=== PATIENT | female | born 1970 | race Caucasian/White ===

== ENCOUNTER 2017-08-01 13:22 | Emergency (ER) | payer MEDICARE, SELFPAY ==
[2017-08-01 13:23] VITALS: BP 151/56; PULSE 89; RESP 14; TEMP 36.7; O2SAT 98; BMI 46.3
--- NOTE | 2017-08-01 14:06 | VDUE_ITS ---
Reason For Study: swelling Left Proximal Left jugular vein is spontaneous, widely patent, phasic, with no intraluminal echogenicity noted. Left subclavian vein is spontaneous, widely patent, phasic, with no intraluminal echogenicity noted. Left Arm Left axillary vein is spontaneous, patent, phasic, competent, compressible and demonstrates augmentation. Left brachial vein is compressible. Left cephalic vein is compressible. Left basilic vein is compressible. Left Lower Arm Left radial vein is compressible. Left ulnar vein is compressible. Prelim to Dr. Burrell. < Interpretation Summary No evidence for acute deep venous thrombosis[left] upper extremity with patent and compressible cephalic and basilic veins. Ordering Physician: Senait Laurent Performed By: John Hannon RVT
--- NOTE | 2017-08-01 14:07 | CT_ITS ---
STUDY: CT SCAN OF THE FOREARM LEFT REASON FOR EXAM: Female, 47 years old. Left arm pain overlying the mid forearm. RADIATION DOSAGE (If Supplied By Facility): CTDIvol = ( 24.58 ) mGy, DLP = ( 566.75 ) mGycm. Individualized dose optimization techniques were used for this CT.? TECHNIQUE: Multiple axial tomographic images were obtained following intravenous contrast administration. Sagittal and coronal reconstruction was obtained as well. COMPARISON: None. FINDINGS: The radius and ulna are unremarkable. No soft tissue mass is seen. The vascularity is unremarkable. CT/Extremity Upper WITH Contrast IMPRESSION: Unremarkable examination. Electronically Signed: Wayne Cooper MD at 15:05 EST Tel [phone], Service support ,
--- NOTE | 2017-08-01 14:09 | NURSING ---
CALLED VASCULAR LAB. TOSHIA WILL BE RIGHT DOWN
[2017-08-01] MEDS: HYDROcodone Bitartrate/Apap 5/325 Tablet PO (15:28)
[2017-08-01 16:09] LABS: Anion Gap 7 (5-15); BUN 16 mg/dL (7-18); BUN/Creat Ratio 20.3 RATIO (10-20); Calcium,Total 8.1 mg/dL (8.5-10.1); Chloride 107 mmol/L (98-107); Creatinine, Serum 0.79 mg/dL (0.55-1.02); EST Glomerular Filtration Rate 83 mL/min (>60); Est Glom Filt Rate - Afr Amer 100 mL/min (>60); Estimated Creatinine Clearance 63.23 ml/min; Glucose 111 mg/dL (74-106); Potassium 4.8 mmol/L (3.5-5.1); Sodium Level 139 mmol/L (136-145)
--- NOTE | 2017-08-01 16:11 | ED.DCSUM_ITS ---
- ER Visit Summary Date of Service: 08/01/17 Chief Complaint: [Left forearm pain] History of Present Illness: The patient is a 47 F presents to the emergency department with complaint of pain in her left forearm that she has had for about a month. [Patient denies any injury. Patient was seen at the urgent care today and there was concern for DVT so sent to the emergency department. Patient denies any chest pain or shortness of breath. Patient denies recent travel or surgery.] Physical Examination: [HEENT-PERRLA, EOMI. Cranial nerves II through XII grossly intact. TMs clear. Mucous membranes moist. No adenopathy. Cardiovascular-regular rate and rhythm without murmur or ectopy Lungs-clear to auscultation, chest wall stable without crepitus or subcu emphysema Abdomen-normoactive bowel sounds, soft, nontender, no rebound or rigidity, no peritoneal signs. Extremities-intact ?4, normal range of motion, normal pulses, atraumatic]. Left forearm-there is a small [id number] mass in the proximal forearm that is freely movable within the soft tissues and is slightly tender to palpation. There is no significant edema noted of the arm. There is no erythema or warmth. There is no cellulitis. She is neurovascular intact distally. Test Results: [Venous duplex of the upper extremity revealed no DVT. I did do a CT scan of the forearm which showed no masses or anything significant.] Emergency Department Course and Treatment: [She was given 1 [place] for pain] Treatment Plan: [Discharged to home in stable condition. Patient will be given a prescription for [place] for pain and a referral to orthopedics on-call.] Disposition: [Discharged to home in stable condition] Impression: Left forearm pain-etiology uncertain [] This note was generated with [employer] dictation software. It may contain incorrect words, spelling, and punctuation that were not noted in review of the chart prior to signing ED Disposition - Plan for ED Patient: Chief Complaint: Upper Extremity Injury Referrals: Beatrice Piedra MD [Primary Care Provider] -
--- NOTE | 2017-08-01 16:12 | ED.DEP ---
ED Disposition - Plan for ED Patient: Chief Complaint: Upper Extremity Injury Prescriptions: Hydrocodone Bitart/Apap 5-325 [[place] 5/325] 1 - 2 tab PO Q4H PRN PRN 5 Days #20 tab PRN Reason: Pain Referrals: Beatrice Piedra MD [Primary Care Provider] - Additional Instructions: It is unclear the cause of your pain
== END 2017-08-01 16:22 | disposition home or self-care (01) ==
PROVIDERS: Emergency Provider Emergency Medicine; Family Provider Internal Medicine; PCP Internal Medicine
DX: M79.632 Pain in left forearm (principal); E11.9 Type 2 diabetes mellitus without complications; E78.00 Pure hypercholesterolemia, unspecified; Z72.0 Tobacco use; Z79.4 Long term (current) use of insulin; Z79.899 Other long term (current) drug therapy
CPT/HCPCS: 73201; 80048; 93971; 99283; Q9967; A4216

== ENCOUNTER 2017-10-11 20:51 | Emergency (ER) | payer MEDICARE, SELFPAY ==
[2017-10-11 20:53] VITALS: BP 133/73; PULSE 80; RESP 16; TEMP 36.6; O2SAT 95; BMI 46.4
--- NOTE | 2017-10-11 20:55 | RAD_ITS ---
STUDY: X-RAY - RIGHT HAND REASON FOR EXAM: Female, 47 years old. Swelling, injury TECHNIQUE: 3 view(s) of the hand. COMPARISON: X-ray 12/06/2014 FINDINGS: The hand is held in flexion. No radiopaque foreign body. Normal radiocarpal articulation. Normal distal radioulnar joint. Normal visualized carpal bones. Normal carpal articulations Normal carpometacarpal articulation of the thumb. Normal second through fifth carpometacarpal joints. Normal metacarpi. Normal metacarpophalangeal joint of the thumb. Normal interphalangeal joint of the thumb. Normal proximal and distal phalanges of the thumb. Normal metacarpophalangeal joints of the second through fifth fingers. Normal proximal and distal interphalangeal joints of the second through fifth fingers. Normal phalanges of the second through fifth fingers. The soft tissue structures are unremarkable. RAD/Hand Min 3 Views IMPRESSION: Intact osseous structures No radiopaque foreign body Fingers held in flexion Electronically Signed: Zoltan Diamond MD at 21:14 EDT Tel , Service support ,
--- NOTE | 2017-10-11 21:58 | ED.VISSUMM ---
- ER Visit Summary Date of Service: 10/11/17 Chief Complaint: Right hand injury History of Present Illness: The patient is a 47 F who states that she punched a glass DVD case 10 times tonight. She has pain over the dorsum of her right hand and swelling. Physical Examination: Afebrile vital signs are stable There is hematoma over the long ring and little MCP joints. Limited range of motion due to pain. Neurovascular intact distally. Test Results: X-rays were negative for fracture Emergency Department Course and Treatment: Patient used ice was given ibuprofen here. Patient will continue this treatment at home. Impression: 1. Right hand contusion This note was generated with [employer] dictation software. It may contain incorrect words, spelling, and punctuation that were not noted in review of the chart prior to signing ED Disposition - Plan for ED Patient: Disposition: Home or Assisted Living Chief Complaint: Upper Extremity Injury Instructions: ED Contusion Hand Referrals: Beatrice Piedra MD [Primary Care Provider] - As Needed
--- NOTE | 2017-10-11 22:12 | ED.RN ---
PT REFUSES MOTRIN. DISCHARGE INSTRUCTIONS GIVEN TO AND REVIEWED WITH PATIENT, PATIENT DENIES QUESTIONS OR CONCERNS AND VOICES UNDERSTANDING OF DISCHARGE INSTRUCTIONS. PT AMBULATES OUT OF ROOM WITHOUT DIFFICULTY.
== END 2017-10-11 22:14 | disposition home or self-care (01) ==
PROVIDERS: Emergency Provider Emergency Medicine; Family Provider Internal Medicine; PCP Internal Medicine
DX: S60.221A Contusion of right hand, initial encounter (principal); Z72.0 Tobacco use; W22.8XXA Striking against or struck by other objects, initial encounter; Y93.89 Activity, other specified; Y92.89 Other specified places as the place of occurrence of the external cause; Y99.8 Other external cause status; E66.9 Obesity, unspecified
CPT/HCPCS: 73130; 99282

== ENCOUNTER 2018-03-23 10:46 | Observation (INO) | payer MEDICARE, SELFPAY ==
[2018-03-23] VITALS (13 sets, daily range): BP systolic 97–127; BP diastolic 54–75; PULSE 79–92; RESP 14–20; TEMP 36.6–37.2; O2SAT 92–99; BMI 48.5; BMI 46.4; BMI 46.6
--- NOTE | 2018-03-23 10:49 | EKG12_ITS ---
Test Reason : CP Blood Pressure : / mmHG Vent. Rate : 089 BPM Atrial Rate : 089 BPM P-R Int : 124 ms QRS Dur : 080 ms QT Int : 370 ms P-R-T Axes : 027 023 013 degrees QTc Int : 450 ms Normal sinus rhythm Normal ECG Confirmed by RUTHIE JORDAN, BRODY ([id number]), movie editor ANGELO BARAHONA ([id number]) on 03/26/2018 2:43:45 PM Referred By: Ke Maldonado Confirmed By:BRODY HENDRICKS MD
--- NOTE | 2018-03-23 10:54 | RAD_ITS ---
STUDY: X-RAY CHEST REASON FOR EXAM: Female, 47 years old. Chest pain TECHNIQUE: Single AP portable view of the chest. COMPARISON: None. FINDINGS: The lungs are underexpanded. Subsegmental atelectases are noted in the right and left lung bases. There is no demonstrated pleural abnormality. Normal size heart. Normal mediastinum and yecenia. Normal visualized pulmonary arteries. Normal visualized aortic arch and descending thoracic aorta. Normal visualized thoracic spine. There is degenerative osteoarthritis of the bilateral shoulders. There is no demonstrated abnormality of the visualized soft tissue structures of the upper abdomen. RAD/Chest 1 View (Portable) IMPRESSION: Degenerative changes, as described above. No demonstrated acute cardiopulmonary process. Electronically Signed: Bailee Horton MD at 11:10 EDT Tel , Service support ,
--- NOTE | 2018-03-23 10:55 | ED.DCSUM_ITS ---
- ER Visit Summary Date of Service: 03/23/18 Chief Complaint: Chest pain History of Present Illness: The patient is a 47 F with history of diabetes, smoking, and family history of heart disease presents to the emergency department chest pain. States it woke her from sleep. She describes a sharp tightness in her mid chest that goes to her back in both arms. It is associated with nausea and shortness of breath. She states she has never had pain like this before. She denies any history of coronary vascular disease. She denies any exertional symptoms. The patient has never had a stress test. She denies any history of pulmonary embolus. She does not feel like anything has made it better or worse. She was given 1 sublingual nitro which did not change her pain. Physical Examination: Vital signs reviewed General: Well-nourished, well-developed Head: Normocephalic, atraumatic Eyes: Pupils equal and reactive, extraocular muscles intact Neck, supple, no lymphadenopathy Heart: Regular rate and rhythm Respiratory: No distress, clear bilaterally Abdomen: Soft, nontender, nondistended, no peritoneal signs Back: Nontender Extremities: Nontender, no edema, no cords Skin: Normal color no rash Neuro: Alert and oriented, no focal or lateralizing deficits Test Results: [] Emergency Department Course and Treatment: I did review the patient's prehospital EKG. She did have deep Q waves in lead III. There was no progression or acute ischemia otherwise. Her EKG on arrival was unremarkable. There is no acute ischemic change. The patient had no improvement with nitro. She was given morphine with some improvement. Screening labs including cardiac enzymes were unremarkable. She does have a mild leukocytosis. Her d-dimer was elevated so I did obtain a CTA of her chest. This demonstrates no pulmonary e mbolus, but there is a right middle lobe infiltrate. The patient was started on community-acquired pneumonia coverage. I am not sure if this is the cause of her pain or if there is underlying cardiac dysfunction. The patient will be admitted for further workup and evaluation of her chest pain. Treatment Plan: [] Disposition: Admission Impression: Chest pain 2. Community-acquired pneumonia This note was generated with [employer]ation software. It may contain incorrect words, spelling, and punctuation that were not noted in review of the chart prior to signing ED Disposition - Plan for ED Patient: Chief Complaint: Chest Pain
[2018-03-23 11:06] LABS: Absolute Neutrophil Count 8.8 X10^3/uL (2.0-7.7); Basophil# 0.03 X10^3/uL; Basophil% 0.2 % (0-1); Eosinophil# 0.25 X10^3/uL; Eosinophils% 1.9 % (0-5); Hematocrit 40.3 % (37-47); Lymphocyte % 23.2 % (19-41); Mean Corp Hgb Conc 32.3 g/gl (32-36); Mean Corpuscular Hgb 29.3 pg (27.0-32.0); Mean Corpuscular Volume 90.8 fL (81-99); Mean Platelet Vol. 9.9 fl (6.2-12.0); Neutrophil # 8.76 X10^3/uL (2.7-7.7); Neutrophil % 65.5 % (47-70); POSITIVE COUNT NO; POSITIVE DIFFERENTIAL NO; POSITIVE MORPHOLOGY NO; Platelet Count 184 K/mm3 (150-450); RBC Distribution Width CV 14.2 % (11.6-14.6); RBC Distribution Width SD 47.3 fl (35.1-43.9); Red Blood Count 4.44 M/mm3 (4.2-5.4); White Blood Count 13.4 K/mm3 (4.4-11.0)
[2018-03-23] MEDS: 0.9% Normal Saline 1,000 ML 1000 ML IV (11:07)
[2018-03-23] MEDS: Aspirin 81 MG TAB.CHEW 324 MG PO (11:07)
[2018-03-23] MEDS: Morphine 4 MG/ML Syringe IV ×3 (11:07→22:51)
[2018-03-23] MEDS: Ondansetron 4 MG/2 ML Vial IV (11:08)
[2018-03-23 11:13] LABS: International Normalized Ratio 1.2; Partial Thromboplast Time 28.9 Seconds (24.1-36.2); Prothrombin Time (Protime)PT. 15.2 SECONDS (11.7-14.9)
[2018-03-23 11:18] LABS: BUN 16 mg/dL (7-18); BUN/Creat Ratio 20.3 RATIO (10-20); Calcium,Total 7.8 mg/dL (8.5-10.1); Chloride 100 mmol/L (98-107); Creatinine, Serum 0.79 mg/dL (0.55-1.02); EST Glomerular Filtration Rate 83 mL/min (>60); Est Glom Filt Rate - Afr Amer 100 mL/min (>60); Estimated Creatinine Clearance 63.23 ml/min; Glucose 198 mg/dL (74-106); Lipase 83 U/L (73-393); Sodium Level 135 mmol/L (136-145)
[2018-03-23 11:19] LABS: Anion Gap 10 (5-15)
--- NOTE | 2018-03-23 11:23 | CT_ITS ---
STUDY: CTA CHEST REASON FOR EXAM: Female, 47 years old. Chest pain RADIATION DOSAGE (If Supplied By Facility): CTDIvol = ( 16.68 ) mGy, DLP = ( 567.59 ) mGycm TECHNIQUE: The examination was performed with the intravenous administration of 100 ml of Isovue 370 contrast material. Post-processing of the angiographic images was performed, with multiplanar reformation and 3D reconstruction. Individualized dose optimization techniques were used for this CT. COMPARISON: Chest x-ray. FINDINGS: There is limited enhancement of the main pulmonary artery and right and left pulmonary arteries. There is limited enhancement of the bilateral peripheral pulmonary arteries. There is no demonstrated pulmonary embolism. Normal thoracic aorta and visualized great vessels. There is no demonstrated aortic dissection. Normal heart and pericardium. Normal mediastinum. Normal hilar regions. Normal visualized trachea and bronchi. There is elevation of the right hemidiaphragm There is patchy airspace opacity in the perihilar right middle lobe , series 2 images 80/186 through 96/186 . Normal pleura. Normal chest wall structures. There are degenerative changes of thoracic spine. There is hepatomegaly with diffuse hepatic enlargement. CT/CTA Chest W/WO Contrast IMPRESSION: CTA chest examination, without a demonstrated pulmonary embolism or arterial dissection. Right middle lobe infiltrate. Electronically Signed: Harvey Guevara MD at 12:44 EDT , Service support ,
[2018-03-23 12:46] LABS: Bedside Glucose 139 mg/dL (70-110)
--- NOTE | 2018-03-23 12:59 | NURSING ---
PAGE NUNO CP
[2018-03-23] MEDS: Ceftriaxone 1 GM/50 ML BAG IV (13:10)
--- NOTE | 2018-03-23 13:32 | HP.PCM_ITS ---
Problem List (1) Chest pain, midsternal Status: Acute (2) Asthma Status: Chronic (3) Bipolar disorder Status: Chronic (4) Hypothyroidism Status: Chronic (5) Dyslipidemia Status: Chronic (6) Diabetes mellitus type 2 in obese Status: Chronic (7) Community acquired pneumonia of right middle lobe of lung Status: Acute History of Present Illness Date of Admission: 03/23/18 Chief Complaint: Chest pain today The patient is a 47 year old F with significant history of diabetes mellitus type 2, asthma, bipolar disorder with depression on multiple antipsychotic medications and Xanax came to ER with sudden onset of chest pain, midsternal without precipitating, aggravating or relieving factor. Chest pain radiates to back and both arms. She has mild associated shortness of breath but she has history of asthma with wheeze and chronic smoker. Denies fever, or diaphoresis or recent URI symptoms including cough, sore throat or postnasal drip. She had nonspecific chills. In ED, EKG shows normal sinus rhythm with no significant change from previous EKG of 2014. EMS EKG shows deep Q waves in lead III but I think is probably misplacement of lead. D-dimer was elevated and therefore CTPA was done which is negative of PE or aortic aneurysm/dissection but reported as right middle lobe infiltrate. [] Past Medical History Past Medical History (Chronic Problems): Chronic Problems Asthma (Chronic) Bipolar disorder (Chronic) Hypothyroidism (Chronic) Dyslipidemia (Chronic) Diabetes mellitus type 2 in obese (Chronic) Allergies latex Allergy (Verified 03/23/18 10:52) Hives Home Medications: Ambulatory Orders Medication Instructions Recorded Lamictal 200 mg PO DAILY 11/18/14 Seroquel 200 mg PO QHS 11/18/14 Metformin HCl 1,000 mg PO BID 01/06/15 ALPRAZolam [Xanax] 2 mg PO BID PRN PRN 01/31/15 Atorvastatin Calcium [Lipitor] 10 mg PO QHS 02/27/16 Furosemide [Lasix] 20 mg PO BID 02/27/16 Glimepiride [Amaryl] 2 mg PO BID 02/27/16 Insulin Glargine,Hum.rec.anlog 17 unit SQ DAILY 02/27/16 [Lantus] Levothyroxine [Synthroid] 25 mcg PO DAILY 02/27/16 Propranolol HCl [Inderal (Beta 20 mg PO BID 02/27/16 Geraldo)] Sertraline HCl [Zoloft] 100 mg PO BID 02/27/16 Zolpidem Tartrate [Ambien] 10 mg PO QHS 02/27/16 buPROPion SR [Wellbutrin Sr] 150 mg PO BID 02/27/16 Hydrocodone Bitart/Apap 5-325 1 - 2 tab PO Q4H PRN PRN 5 Days 08/01/17 [[place] 5/325] #20 tab Smoking Status: Current every day smoker - *Family History Maternal History Items: Heart Disease - Congestive heart failure and cardiomyopathy Sibling History Items: Heart Disease Review of Systems Constitutional: Reports: Chills, Weakness HEENT: Denies: Head Aches, Sinus Congestion, Sinus Drainage Cardiovascular: Reports: Chest Pain. Denies: Palpitations Respiratory: Reports: Shortness of breath upon exertion, Wheezing. Denies: Cough, Shortness of breath at rest, Sputum production Gastrointestinal: Denies: Abdominal Pain, Nausea, Vomiting Genitourinary: Denies: Dysuria Musculoskeletal: Reports: Joint Pain, Joint stiffness. Denies: Joint Tenderness Skin: Denies: Rash, Wounds Neurological: Denies: Numbness, Tingling, Focal weakness Psychiatric: Denies: Anxiety, Depression, Homicidal Ideations, Suicidal Ideations Hematologic/ Lymphatic: Denies: Easy Bruising, Easy Bleeding VTE Information - Inpt Only VTE Present on Admission: No VTE Mechan Device Prophylaxis: None VTE Pharm Prophylaxis ordered?: Yes Patient Problems: Active and Suspected Problems Chest pain, midsternal (Acute) Community acquired pneumonia of right middle lobe of lung (Acute) - Physical Exam General: Alert, Oriented x3, Cooperative HEENT: Atraumatic, PERRLA, EOMI, Normocephalic Neck: Supple, No JVD, Negative Carotid Bruits Lungs: Diminished - In bilateral lung bases, Wheezes - Mild expiratory wheezing present Cardiovascular: Regular rate, Normal S1, Normal S2, No murmurs Abdomen: Bowel Sounds Present, Soft, Non Tender, Non-Distended, No Hepato- splenomegaly Extremities: Capillary Refill Less than 3 Seconds, Edema Skin: No rashes, No breakdown Musculoskeletal: No Tenderness to Palpation of Joints or Extremities, Arthritic Changes Neurological: Cranial nerves II-XII grossly intact Psych/Mental Status: Normal Affect, Appropriate Vital Signs Temp Pulse Resp BP Pulse Ox 99.0 F 90 18 103/61 98 03/23/18 10:48 03/23/18 13:05 03/23/18 13:05 03/23/18 13:05 03/23/18 13:05 Oxygen Flow Rate (L/min) 2 Oxygen Delivery Method Nasal Cannula Weight: 248 lb 10.903 oz Body Mass Index (BMI) 48.5 Finger Stick Blood Glucose 219 Laboratory Tests Past 24 Hrs 03/23/18 03/23/18 03/23/18 10:54 10:54 10:54 WBC 13.4 H RBC 4.44 Hgb 13.0 Hct 40.3 MCV 90.8 MCH 29.3 MCHC 32.3 RDW 14.2 RDW Differential 47.3 H Plt Count 184 MPV 9.9 Immature Gran % (Auto) 0.200 Neut % (Auto) 65.5 Lymph % (Auto) 23.2 [place] % (Auto) 9.0 Eos % (Auto) 1.9 Baso % (Auto) 0.2 Absolute Neuts (auto) 8.8 H Absolute Lymphs (auto) 3.10 Total Counted Not Reportable PT 15.2 H INR 1.2 APTT 28.9 D-Dimer Quant (PE/DVT) 0.70 H* Sodium 135 L Potassium 4.0 Chloride 100 Carbon Dioxide 25.0 Anion Gap 10 BUN 16 Creatinine 0.79 Estim Creat Clear Calc 63.23 Est GFR (MDRD) Af Amer 100 Est GFR (MDRD) Non-Af 83 BUN/Creatinine Ratio 20.3 H Glucose 198 H Calcium 7.8 L Troponin I < 0.015 Lipase 83 POC Glucose 03/23/18 12:38 POC Glucose 139 H Assessment/Plan All Active Problems Chest pain, midsternal (Acute) Community acquired pneumonia of right middle lobe of lung (Acute) The patient is a 47 year old F with significant history of diabetes mellitus type 2, asthma, bipolar disorder with depression on multiple antipsychotic medications and Xanax came to ER with sudden onset of chest pain, midsternal without precipitating, aggravating or relieving factor. Chest pain radiates to back and both arms. She has mild associated shortness of breath but she has history of asthma with wheeze and chronic smoker. Denies fever, or diaphoresis or recent URI symptoms including cough, sore throat or postnasal drip. She had nonspecific chills. In ED, EKG shows normal sinus rhythm with no significant change from previous EKG of 2015. EMS EKG shows deep Q waves in lead III but I think is probably misplacement of lead. D-dimer was elevated and therefore CTPA was done which is negative of PE or aortic aneurysm/dissection but reported as right middle lobe infiltrate. [] 1. Atypical chest pain, rule out acute coronary syndrome: RICHAR score 1/7. Patient is being admitted in PCU for observation. Serial troponin enzymes. If negative, treadmill nuclear stress test tomorrow a.m. 2. CT chest finding of right middle lobe infiltrate/community-acquired pneumonia: Patient denies usual symptoms of pneumonia but has chills, mild chronic shortness of breath and wheezing. Empirically, started on IV Rocephin and Zithromax. Pneumonia workup with urinary antigens. If the patient is spikes fever, need blood cultures x2. 3. Chronic stable asthma and chronic a smoker: Not seem to be an exacerbation. On bronchodilator, incentive spirometry, nicotine patch. Patient has about 30 pack years of smoking. Advised smoking cessation. 4. Diabetes mellitus type 2 with uncontrolled hyperglycemia: Continue home dose of Lantus 17 units subcu daily. Accu-Chek before meals and at bedtime and cover with Humalog insulin. A1c tomorrow a.m. 5. Hypothyroidism, morbid obesity, bipolar disorder with depression, chronic pain: Home medication reconciliation done. Dose of Xanax decreased to 1 mg twice daily as needed. TSH and free T4 ordered. There is clinical suspicion of obesity hypoventilation syndrome/Obstructive sleep apnea based on her body habitus and morbid obesity, need outpatient sleep study. Multiple comorbidities complicates the present care and expect delay recovery DVT prophylaxis: On Lovenox 40 mg subcu daily Code Visit OBSV E&M: 89531 Initial observation care L3
[2018-03-23] MEDS: 0.9% Normal Saline 1,000 ML 999 ML IV (14:00)
--- NOTE | 2018-03-23 15:11 | EKG12_ITS ---
Test Reason : Blood Pressure : / mmHG Vent. Rate : 071 BPM Atrial Rate : 071 BPM P-R Int : 136 ms QRS Dur : 084 ms QT Int : 424 ms P-R-T Axes : 029 008 004 degrees QTc Int : 460 ms Normal sinus rhythm Normal ECG When compared with ECG of 21-JUN-2014 11:54, Nonspecific T wave abnormality no longer evident in Anterior leads Confirmed by RUTHIE JORDAN, BRODY ([id number]), manuscript editor ANGELO BARAHONA ([id number]) on 03/28/2018 3:40:39 PM Referred By: Ke Maldonado Confirmed By:BRODY HENDRICKS MD
[2018-03-23] MEDS: oxyCODONE 5 MG Tablet PO ×2 (15:31→19:58)
[2018-03-23] MEDS: Acetaminophen 325 MG Tablet 650 MG PO (15:31)
[2018-03-23] MEDS: 0.9% Normal Saline 1,000 ML 75 ML IV (15:33)
--- NOTE | 2018-03-23 15:48 | CHAPLAIN ---
attempted visit but patient had RN in room and RT was waiting to get in also
[2018-03-23 16:31] LABS: Bedside Glucose 219 mg/dL (70-110)
[2018-03-23] MEDS: Insulin Lispro 100 UNIT/ML INSULN.PEN SQ ×2 (16:46→22:34)
[2018-03-23] MEDS: Enoxaparin 40 MG/0.4 ML Syringe SC (16:46)
[2018-03-23] MEDS: Glimepiride 2 MG Tablet PO (16:46)
[2018-03-23 18:45] LABS: Color, Urine Yellow (Yellow); Glucose, Dipstick Normal (Normal); Ketone-Dipstick Negative (Negative); Leukocyte Esterase-Dipstick 100 /ul (Negative); Nitrite-Dipstick Negative (Negative); Occult Blood-Urine Negative /ul (Negative); Protein-Dipstick Negative (Negative); Urine Bilirubin Dipstick Negative (Negative); Urine Clarity Clear (Clear); Urine Urobilinogen Normal (Normal)
--- NOTE | 2018-03-23 19:42 | EKG12_ITS ---
Test Reason : CP Blood Pressure : / mmHG Vent. Rate : 080 BPM Atrial Rate : 080 BPM P-R Int : 138 ms QRS Dur : 086 ms QT Int : 398 ms P-R-T Axes : 041 015 002 degrees QTc Int : 459 ms Normal sinus rhythm Normal ECG When compared with ECG of 23-MAR-2018 15:36, MANUAL COMPARISON REQUIRED, DATA IS UNCONFIRMED Confirmed by RUTHIE JORDAN, BRODY ([id number]), publishing editor ANGELO BARAHONA ([id number]) on 03/28/2018 3:40:52 PM Referred By: Ke Maldonado Confirmed By:BRODY HENDRICKS MD
[2018-03-23] MEDS: Ipratropium/Albuterol Sulfate 3 ML AMPUL.NEB INHALATION (19:45)
[2018-03-23] MEDS: Budesonide Respules 0.5 MG/2 ML AMPUL.NEB. INHALATION (19:45)
[2018-03-23] MEDS: ALPRAZolam 0.5 MG Tablet 1 MG PO (21:59)
--- NOTE | 2018-03-23 22:15 | NURSING ---
Addendum entered by Esperanza Narvaez 03/23/18 22:27: Correction to note: Pt. c/o pain in L upper abdominal area and under L breast, not the R breast. Original Note: Called to pt. room by caprice's RN Terri who was concerned about pt. c/o extreme CP in her L upper abdominal area under R breast and stating her L arm felt numb. Also stated midsternal pain . Pain all over was rated 12/10. Oxycodone given earlier and ineffective. Pt. very upset and tearful and stated that she thinks her pain may be getting worse because she is getting so upset and her anxiety caused SOB and hyperventilation when this episode began which was concerning to her RN Terri.Pt. VSS. Dr. Romano paged and discussed pt complaints. EKG and troponin x 1 ordered and he will come see pt.
--- NOTE | 2018-03-23 22:17 | EKG12_ITS ---
Test Reason : CP Blood Pressure : / mmHG Vent. Rate : 082 BPM Atrial Rate : 082 BPM P-R Int : 130 ms QRS Dur : 082 ms QT Int : 370 ms P-R-T Axes : 035 016 010 degrees QTc Int : 432 ms Normal sinus rhythm Normal ECG When compared with ECG of 23-MAR-2018 19:49, MANUAL COMPARISON REQUIRED, DATA IS UNCONFIRMED Confirmed by RUTHIE JORDAN, BRODY ([id number]), editor city ANGELO BARAHONA ([id number]) on 03/28/2018 3:41:04 PM Referred By: Ke Maldonado Confirmed By:BRODY HENDRICKS MD
[2018-03-23] MEDS: Propranolol 10 MG Tablet 20 MG PO (22:34)
[2018-03-23] MEDS: lamoTRIgine 100 MG Tablet 200 MG PO (22:34)
[2018-03-23] MEDS: guaiFENesin 1,200 MG Tablet 1200 MG PO (22:35)
[2018-03-23] MEDS: Atorvastatin Calcium 10 MG Tablet PO (22:35)
[2018-03-23] MEDS: Gabapentin 300 MG Capsule 600 MG PO (22:36)
[2018-03-23] MEDS: QUEtiapine 100 MG Tablet 200 MG PO (22:36)
[2018-03-23] MEDS: Famotidine 20 MG Tablet PO (22:36)
[2018-03-23] MEDS: Sertraline 100 MG Tablet PO (22:37)
[2018-03-23] MEDS: buPROPion (XL) 150 MG TABLET.XL 450 MG PO (22:38)
[2018-03-23] MEDS: Fluticasone 0.05% 1 SPRAY NASAL.SRY 2 SPRAY NASAL (22:50)
[2018-03-24 00:36] LABS: Bedside Glucose 190 mg/dL (70-110)
[2018-03-24 03:04] VITALS: PULSE 87
[2018-03-24 04:48] VITALS: BP 107/67; PULSE 97; RESP 17; TEMP 36.9; O2SAT 99
[2018-03-24] MEDS: Levothyroxine 25 MCG TABLET PO (05:01)
[2018-03-24] MEDS: Aspirin E.C. 81 MG Tablet PO (05:01)
--- NOTE | 2018-03-24 05:55 | EKG12_ITS ---
Test Reason : AM Blood Pressure : / mmHG Vent. Rate : 086 BPM Atrial Rate : 086 BPM P-R Int : 140 ms QRS Dur : 088 ms QT Int : 376 ms P-R-T Axes : 027 011 003 degrees QTc Int : 449 ms Normal sinus rhythm Minimal voltage criteria for LVH, may be normal variant Borderline ECG When compared with ECG of 23-MAR-2018 22:25, MANUAL COMPARISON REQUIRED, DATA IS UNCONFIRMED Confirmed by RUTHIE JORDAN, BRODY ([id number]), managing editor ANGELO BARAHONA ([id number]) on 03/28/2018 3:38:53 PM Referred By: Ke Maldonado Confirmed By:BRODY HENDRICKS MD
[2018-03-24 06:45] VITALS: PULSE 87; RESP 16; O2SAT 97
[2018-03-24] MEDS: Ipratropium/Albuterol Sulfate 3 ML AMPUL.NEB INHALATION (06:45)
[2018-03-24] MEDS: Budesonide Respules 0.5 MG/2 ML AMPUL.NEB. INHALATION (06:45)
[2018-03-24 07:00] LABS: Bedside Glucose 193 mg/dL (70-110)
[2018-03-24 07:03] VITALS: PULSE 83
[2018-03-24 07:19] LABS: Hematocrit 38.6 % (37-47); Hemoglobin 12.5 g/dl (12.0-15.0); Mean Corp Hgb Conc 32.4 g/gl (32-36); Mean Corpuscular Hgb 29.8 pg (27.0-32.0); Mean Corpuscular Volume 91.9 fL (81-99); Mean Platelet Vol. 10.6 fl (6.2-12.0); Platelet Count 167 K/mm3 (150-450); RBC Distribution Width CV 14.3 % (11.6-14.6); White Blood Count 9.7 K/mm3 (4.4-11.0)
[2018-03-24 07:20] LABS: International Normalized Ratio 1.2; Prothrombin Time (Protime)PT. 15.4 SECONDS (11.7-14.9)
[2018-03-24 07:21] LABS: Partial Thromboplast Time 33.2 Seconds (24.1-36.2)
[2018-03-24 07:23] LABS: Scan Indicated on CBC? Y/N NO
[2018-03-24 07:29] VITALS: BP 112/63; PULSE 86; RESP 16; TEMP 36.8; O2SAT 96
[2018-03-24 07:43] LABS: Anion Gap 9 (5-15); BUN 10 mg/dL (7-18); BUN/Creat Ratio 17.1 RATIO (10-20); Calcium,Total 7.6 mg/dL (8.5-10.1); Chloride 104 mmol/L (98-107); Cholesterol 103 mg/dL (200); Creatinine, Serum 0.58 mg/dL (0.55-1.02); EST Glomerular Filtration Rate 117 mL/min (>60); Est Glom Filt Rate - Afr Amer 142 mL/min (>60); Estimated Creatinine Clearance 203.11 ml/min; Glucose 186 mg/dL (74-106); High Density Lipoprotein 51 mg/dL; Sodium Level 138 mmol/L (136-145); T4 Free Direct 0.96 ng/dL (0.76-1.46); Thyroid Stim Hormone (TSH) 1.15 uIU/mL (0.358-3.74); Triglycerides 82 mg/dL; Very Low Density Lipoprotein 16 mg/dL (5-40)
[2018-03-24] MEDS: oxyCODONE 5 MG Tablet PO (10:11)
[2018-03-24] MEDS: Acetaminophen 325 MG Tablet 650 MG PO (10:11)
[2018-03-24] MEDS: Propranolol 10 MG Tablet 20 MG PO (10:12)
[2018-03-24] MEDS: Furosemide 20 MG Tablet PO (10:12)
[2018-03-24] MEDS: Glimepiride 2 MG Tablet PO (10:12)
[2018-03-24] MEDS: Famotidine 20 MG Tablet PO (10:12)
[2018-03-24] MEDS: guaiFENesin 1,200 MG Tablet 1200 MG PO (10:12)
--- NOTE | 2018-03-24 10:12 | STRESSREP ---
Stress Test Report Pharmacologic myocardial perfusion stress test. 47-year-old lady with a history of chest pain. Stress protocol: Resting EKG demonstrates normal sinus rhythm with a rate of 99 bpm normal intervals are noted. 0.4 mg of regadenoson was infused per usual protocol followed by rapid intravenous saline flush injection continuous EKG monitoring was performed. The patient maintained sinus rhythm throughout the recording. At rest there were no ST or T wave changes noted suggest abnormal flow reserve at peak infusion no ST or T wave changes were noted suggest abnormal flow reserve. The resting blood pressure was 102/60 with a final blood pressure of 98/50 mmHg. Myocardial perfusion protocol. 13.4 mCi of technetium 99m sestamibi was injected at rest. 0.4 mg of regadenoson was infused per usual protocol peak infusion 40.0 mCi of technetium 99m sestamibi was injected stress images were obtained stress and rest images were reconstructed and compared in the short axis vertical long and horizontal long axis. Gated images were also obtained. Perfusion SPECT analysis: Review of the stress images demonstrate normal uptake of tracer noted in all areas of the myocardium. The resting images similarly demonstrate normal uptake of tracer noted in all areas of the myocardium. No areas of reversibility are noted suggest ischemia no previous infarct is noted. Gated SPECT analysis: The gated ejection fraction is noted to be 60%. Conclusion: Normal pharmacologic myocardial perfusion stress test. Preserved ejection fraction.
[2018-03-24] MEDS: Sertraline 100 MG Tablet PO (10:13)
[2018-03-24] MEDS: Fluticasone 0.05% 1 SPRAY NASAL.SRY 2 SPRAY NASAL (10:13)
[2018-03-24] MEDS: Enoxaparin 40 MG/0.4 ML Syringe SC (10:13)
--- NOTE | 2018-03-24 10:18 | PCM.DC ---
- Discharge Diagnoses Current Active Problems: Current Active and Chronic Problems Chest pain, midsternal (Acute) Asthma (Chronic) Bipolar disorder (Chronic) Hypothyroidism (Chronic) Dyslipidemia (Chronic) Diabetes mellitus type 2 in obese (Chronic) Community acquired pneumonia of right middle lobe of lung (Acute) You will use the following diet at home:: Calorie/Carbohydrate Controlled (specify 1200, 1400, etc) - 1800 ADA diet, Other Discharge Activity: May not drive while taking narcotic pain medications. Call your doctor if you observe: Fever of 101 or Higher, Inability to urinate, Inability to have a bowel movement, Shortness of breath, Dizziness, Chest pain Additional Instructions: Need to quit smoking. Nicotine patch ordered. Follow with PCP for back pain Allergies/Adverse Reactions: Allergies latex Allergy (Verified 03/23/18 10:52) Hives Medications to take at Discharge Atorvastatin Calcium [Lipitor] 10 mg PO QHS 02/27/16 Furosemide [Lasix] 20 mg PO BID 02/27/16 Glimepiride [Amaryl] 2 mg PO BID 02/27/16 Levothyroxine [Synthroid] 25 mcg PO DAILY 02/27/16 Propranolol HCl [Inderal (Beta Geraldo)] 20 mg PO BID 02/27/16 Sertraline HCl [Zoloft] 100 mg PO BID 02/27/16 Zolpidem Tartrate [Ambien] 10 mg PO QHS 02/27/16 Hydrocodone Bitart/Apap 5-325 [[place] 5/325] 1 - 2 tab PO Q4H PRN PRN 5 Days #20 tab 08/01/17 ALPRAZolam [Xanax] 2 mg PO BID PRN PRN 03/23/18 Albuterol IH (ProAir) [Proair Hfa] 2 puff INHALATION Q4H PRN PRN 03/23/18 Fluticasone 0.05% [Flonase Nasal [place]] 2 spray NASAL BID 03/23/18 Gabapentin [Neurontin] 600 mg PO QHS 03/23/18 Lamotrigine [Lamictal] 200 mg PO QHS 03/23/18 Metformin HCl 1,000 mg PO BID 03/23/18 Quetiapine Fumarate [Seroquel] 200 mg PO QHS 03/23/18 buPROPion XL [Wellbutrin Xl] 450 mg PO QHS 03/23/18 Budesonide/Formoterol 80-4.5 [Symbicort 80-4.5 Mcg Inhaler] 2 puff INHALATION BID #1 inhaler 03/24/18 Docusate Sodium [Colace] 200 mg PO BID PRN PRN capsule 03/24/18 Insulin Glargine,Hum.rec.anlog [Lantus] 20 unit SQ DAILY #0 03/24/18 Nicotine [Nicotine Patch] 1 ea TD DAILY #21 patch.td24 03/24/18 The following prescriptions were given: Nicotine [Nicotine Patch] 1 ea TD DAILY #21 patch.td24 Budesonide/Formoterol 80-4.5 [Symbicort 80-4.5 Mcg Inhaler] 2 puff INHALATION BID #1 inhaler Primary Care Physician: Beatrice Piedra MD [Primary Care Provider] - Please follow up with your Primary Care Physician in: in 2 weeks Test Results: Test results from this visit will be discussed in further detail at your follow-up appointment, if applicable.
--- NOTE | 2018-03-24 10:21 | DS.PCM_ITS ---
Discharge Date and Diagnosis Date of Admission: 03/23/18 Date of Discharge: 03/24/18 - Primary Discharge Diagnosis Active and Suspected Problems Chest pain, midsternal (Acute) No community acquired pneumonia of right middle lobe of lung (Acute): Pneumonia ruled out - Secondary Discharge Diagnosis Chronic Problems Asthma (Chronic) Bipolar disorder (Chronic) Hypothyroidism (Chronic) Dyslipidemia (Chronic) Diabetes mellitus type 2 in obese (Chronic) Hospital Course and Treatment Imaging Results: 03/24/18 05:55 Nuclear Stress Test - Chemical [NM] Routine Summary of Care Provided: [] The patient is a 47 year old F with significant history of diabetes mellitus type 2, asthma, bipolar disorder with depression on multiple antipsychotic medications and Xanax came to ER with sudden onset of chest pain, midsternal without precipitating, aggravating or relieving factor. Chest pain radiates to back and both arms. She has mild associated shortness of breath but she has history of asthma with wheeze and chronic smoker. Denies fever, or diaphoresis or recent URI symptoms including cough, sore throat or postnasal drip. She had nonspecific chills. In ED, EKG shows normal sinus rhythm with no significant change from previous EKG of 2015. EMS EKG shows deep Q waves in lead III but I think is probably misplacement of lead. D-dimer was elevated and therefore CTPA was done which is negative of PE or aortic aneurysm/dissection but reported as right middle lobe infiltrate. The patient was seen and examined today. No fever or chills, tachypnea or hypoxia. Pulse ox 94% on room air General: Alert, Oriented x3, Cooperative HEENT: Atraumatic, PERRLA, EOMI, Normocephalic Neck: Supple, No JVD, Negative Carotid Bruits Lungs: Air entry diminished - In bilateral lung bases, Wheezes Mild expiratory wheezing present Cardiovascular: Regular rate, Normal S1, Normal S2, No murmurs Abdomen: Bowel Sounds Present, Soft, Non Tender, Non-Distended, No Hepato- splenomegaly Extremities: Capillary Refill Less than 3 Seconds, mild edema Skin: No rashes, No breakdown Musculoskeletal: No Tenderness to Palpation of Joints or Extremities, Arthritic Changes Neurological: Cranial nerves II-XII grossly intact Psych/Mental Status: Normal Affect, Appropriate [] 1. Atypical chest pain, rule out acute coronary syndrome: RICHAR score 1/7. Patient was admitted on PCU. Serial troponin enzymes were negative. EKG showed no ischemic changes. Pharmacological nuclear stress test was done and reported as normal. No ischemia. No previous infarct noted. EF 60% 2. CT chest finding of right middle lobe infiltrate, due to accentuation of R ML/RLL interlobar septa. Patient has right hemidiaphragm/right middle lobe elevation its merging of diaphragm and inter lobar septa between right middle lobe and lower lobe which looks like right middle lobe infiltrate as mentioned in the official report. Patient denies usual symptoms of pneumonia including fever, chills, mild chronic shortness of breath and wheezing that seems chronic due to uncontrolled/untreated asthma or COPD asthmatic bronchitis. ER physician gave 1 dose of IV Rocephin and Zithromax. Pneumonia was ruled out and was discussed with the refractory technician Dr. Boyce. He reviewed the CT images with me. UA negative. Patient does not require antibiotic. 3. Chronic stable asthma and chronic a smoker: Not seem to be an exacerbation. On bronchodilator, incentive spirometry, nicotine patch. Patient has about 30 pack years of smoking. Advised smoking cessation. 4. Diabetes mellitus type 2 with uncontrolled hyperglycemia: Accu-Chek before meals and at bedtime and cover with Humalog insulin. Lantus dose was increased from 17 units to 20 units daily. A1c 7.0. 5. Hypothyroidism, morbid obesity, bipolar disorder with depression, chronic pain: Home medication reconciliation done. Dose of Xanax decreased to 1 mg twice daily as needed. TSH and free T4 ordered. There is clinical suspicion of obesity hypoventilation syndrome/Obstructive sleep apnea based on her body habitus and morbid obesity, need outpatient sleep study. Multiple comorbidities complicates the present care and expect delay recovery DVT prophylaxis: On Lovenox 40 mg subcu daily Prescription was given for Symbicort. Patient agreed for quitting tobacco/nicotine. Advised nicotine [id number]. Patient is discharged home. Discharge medication reconciliation done. Discharge Activity: May not drive while taking narcotic pain medications. Call your doctor if you observe: Fever of 101 or Higher, Inability to urinate, I nability to have a bowel movement, Shortness of breath, Dizziness, Chest pain Home Medications: Medications to take at Discharge Atorvastatin Calcium [Lipitor] 10 mg PO QHS 02/27/16 Furosemide [Lasix] 20 mg PO BID 02/27/16 Glimepiride [Amaryl] 2 mg PO BID 02/27/16 Levothyroxine [Synthroid] 25 mcg PO DAILY 02/27/16 Propranolol HCl [Inderal (Beta Geraldo)] 20 mg PO BID 02/27/16 Sertraline HCl [Zoloft] 100 mg PO BID 02/27/16 Zolpidem Tartrate [Ambien] 10 mg PO QHS 02/27/16 Hydrocodone Bitart/Apap 5-325 [[place] 5/325] 1 - 2 tab PO Q4H PRN PRN 5 Days #20 tab 08/01/17 ALPRAZolam [Xanax] 2 mg PO BID PRN PRN 03/23/18 Albuterol IH (ProAir) [Proair Hfa] 2 puff INHALATION Q4H PRN PRN 03/23/18 Fluticasone 0.05% [Flonase Nasal [place]] 2 spray NASAL BID 03/23/18 Gabapentin [Neurontin] 600 mg PO QHS 03/23/18 Lamotrigine [Lamictal] 200 mg PO QHS 03/23/18 Metformin HCl 1,000 mg PO BID 03/23/18 Quetiapine Fumarate [Seroquel] 200 mg PO QHS 03/23/18 buPROPion XL [Wellbutrin Xl] 450 mg PO QHS 03/23/18 Budesonide/Formoterol 80-4.5 [Symbicort 80-4.5 Mcg Inhaler] 2 puff INHALATION BID #1 inhaler 03/24/18 Docusate Sodium [Colace] 200 mg PO BID PRN PRN capsule 03/24/18 Insulin Glargine,Hum.rec.anlog [Lantus] 20 unit SQ DAILY #0 03/24/18 Nicotine [Nicotine Patch] 1 ea TD DAILY #21 patch.td24 03/24/18 Following Prescrptions Were Given to Patient: Nicotine [Nicotine Patch] 1 ea TD DAILY #21 patch.td24 Budesonide/Formoterol 80-4.5 [Symbicort 80-4.5 Mcg Inhaler] 2 puff INHALATION BID #1 inhaler Primary Care Physician: Beatrice Piedra MD [Primary Care Provider] - Please follow up with your Primary Care Physician in: in 2 weeks Medical Necessity - Tobacco Use Smoking Status: Current every day smoker Tobacco Use: Cigarettes Meaningful Use Info Meaningful Use Diagnoses (Choose all that apply): None applicable Code Visit OBSV E&M: 84553 Observation care discharge
[2018-03-24 10:26] VITALS: BP 112/70; PULSE 89; RESP 16; TEMP 36.8; O2SAT 94
[2018-03-24] MEDS: Insulin Lispro 100 UNIT/ML INSULN.PEN SQ (10:32)
[2018-03-24 10:50] LABS: Bedside Glucose 178 mg/dL (70-110)
== END 2018-03-24 10:19 | disposition home or self-care (01) ==
LOC: ED 11:13 → PCU 13:11
PROVIDERS: Hospitalist; Admitting Provider Internal Medicine; Emergency Provider Emergency Medicine; Family Provider Internal Medicine; PCP Internal Medicine; Referring Provider Internal Medicine; Visit Provider Internal Medicine
DX: R07.89 Other chest pain (principal); F31.9 Bipolar disorder, unspecified; E78.5 Hyperlipidemia, unspecified; E11.9 Type 2 diabetes mellitus without complications; E03.9 Hypothyroidism, unspecified; J45.909 Unspecified asthma, uncomplicated; G89.29 Other chronic pain; G47.33 Obstructive sleep apnea (adult) (pediatric); E66.2 Morbid (severe) obesity with alveolar hypoventilation; F17.210 Nicotine dependence, cigarettes, uncomplicated; Z82.49 Family history of ischemic heart disease and other diseases of the circulatory system; Z79.899 Other long term (current) drug therapy; Z79.4 Long term (current) use of insulin; Z68.42 Body mass index [BMI] 45.0-49.9, adult; Z71.3 Dietary counseling and surveillance
CPT/HCPCS: 36415; 71045; 71275; 78452; 80048; 80061; 81002; 82962; 83036; 83690; 84439; 84443; 84484; 85025; 85027; 85379; 85610; 85730; 87449; 87804; 93005; 93017; 94640; 94667; 94668; 96361; 96365; 96366; 96367; 96372; 96375; 96376; 99218; 99284; 99406; A9500; J7030; J7050; Q9967; A4216; G0378; J2405; J2785

== ENCOUNTER → 2018-06-22 20:05 | Outpatient (CLI) | payer MEDICARE, SELFPAY | PROVIDERS: Family Provider Internal Medicine; PCP Internal Medicine; Referring Provider Clinical Nurse Specialist; Visit Provider Clinical Nurse Specialist | DX: G47.30 Sleep apnea, unspecified (principal) | CPT/HCPCS: 95810 ==

== ENCOUNTER → 2018-07-09 23:38 | Outpatient (CLI) | payer MEDICARE, SELFPAY | PROVIDERS: Family Provider Internal Medicine; PCP Internal Medicine; Referring Provider Clinical Nurse Specialist; Visit Provider Clinical Nurse Specialist | DX: G47.33 Obstructive sleep apnea (adult) (pediatric) (principal) | CPT/HCPCS: 95811 ==

== ENCOUNTER → 2018-08-09 15:15 | Outpatient (CLI) | payer MEDICARE, SELFPAY ==
[2018-03-23 14:22] VITALS: BMI 46.4
[2018-08-09 16:50] LABS: Amphetamine Urine VISTA NEGATIVE (<1000 ng/mL); Barbiturate Urine VISTA NEGATIVE (< 200 ng/mL); Benzodiazepine Urine VISTA POSITIVE (< 200 ng/mL); Cocaine Urine VISTA NEGATIVE (< 300 ng/mL); Ecstacy Urine VISTA POSITIVE (< 500 ng/mL); Methadone Urine VISTA NEGATIVE (< 300 ng/mL); PCP Urine VISTA NEGATIVE (< 25 ng/mL); THC Urine VISTA NEGATIVE (< 50 ng/mL); Vista UDS pH Range 7
== END ==
PROVIDERS: Family Provider Internal Medicine; PCP Internal Medicine; Referring Provider Psychiatry & Neurology Psychiatry; Visit Provider Psychiatry & Neurology Psychiatry
DX: Z79.899 Other long term (current) drug therapy (principal); F19.10 Other psychoactive substance abuse, uncomplicated
CPT/HCPCS: 80307

== ENCOUNTER 2018-09-04 22:12 | Observation (INO) | payer MEDICARE, SELFPAY ==
[2018-09-05 00:03] VITALS: BP 125/65; PULSE 81; RESP 24; TEMP 36.4; O2SAT 93; BMI 46.8
--- NOTE | 2018-09-05 00:23 | EKG12_ITS ---
Test Reason : Blood Pressure : / mmHG Vent. Rate : 095 BPM Atrial Rate : 095 BPM P-R Int : 122 ms QRS Dur : 078 ms QT Int : 348 ms P-R-T Axes : 056 052 051 degrees QTc Int : 437 ms Normal sinus rhythm Normal ECG Confirmed by RUTHIE JORDAN, BRODY ([id number]), editor at large HERVE HOYT ([id number]) on 09/05/2018 8:27:05 AM Referred By: Lissette Goodwin Confirmed By:BRODY HENDRICKS MD
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
[2018-09-05 00:46] LABS: Absolute Lymphocyte Count 5.36 X10^3/ul (0.83-4.51); Absolute Neutrophil Count 7.7 X10^3/uL (2.0-7.7); Basophil# 0.06 X10^3/uL; Basophil% 0.4 % (0-1); Eosinophil# 0.13 X10^3/uL; Eosinophils% 0.9 % (0-5); Hematocrit 41.1 % (37-47); Hemoglobin 13.4 g/dl (12.0-15.0); Lymphocyte # 5.36 X10^3/ul (4.0); Lymphocyte % 36.8 % (19-41); Mean Corp Hgb Conc 32.6 g/gl (32-36); Mean Corpuscular Hgb 29.8 pg (27.0-32.0); Mean Corpuscular Volume 91.5 fL (81-99); Mean Platelet Vol. 9.8 fl (6.2-12.0); Monocyte# 1.28 X10^3/uL; Monocyte% 8.8 % (0-10); Neutrophil # 7.72 X10^3/uL (2.7-7.7); Neutrophil % 52.9 % (47-70); Platelet Count 231 K/mm3 (150-450); RBC Distribution Width CV 14.7 % (11.6-14.6); RBC Distribution Width SD 48.4 fl (35.1-43.9); Red Blood Count 4.49 M/mm3 (4.2-5.4); White Blood Count 14.6 K/mm3 (4.4-11.0)
--- NOTE | 2018-09-05 00:48 | ED.RN ---
Addendum entered by Esha Roth 09/05/18 00:49: PT GIVEN JUICE TO DRINK FOR BLOOD SUGAR Original Note: DR POOL AWARE OF BLOOD SUGAR RESULTS. PT EATING A SNACK AT THIS TIME
[2018-09-05 00:55] LABS: Differential Indicated SCAN CRITERIA MET; POSITIVE COUNT NO; POSITIVE DIFFERENTIAL YES; POSITIVE MORPHOLOGY NO
[2018-09-05 00:56] LABS: Reactive Lymphocyte 2+
[2018-09-05 00:58] LABS: ALB/GLOB Ratio 0.9 RATIO (0.9-2.4); AST(SGOT) 38 U/L (15-37); Alanine Aminotransfer ALT/SGPT 36 U/L (13-56); Albumin, Serum 3.5 g/dL (3.2-5.0); Alkaline Phosphatase 78 U/L (45-117); Anion Gap 3 (5-15); BUN 10 mg/dL (7-18); BUN/Creat Ratio 14.7 RATIO (10-20); Calcium,Total 8.4 mg/dL (8.5-10.1); Chloride 108 mmol/L (98-107); Creatinine, Serum 0.68 mg/dL (0.55-1.02); EST Glomerular Filtration Rate 98 mL/min (>60); Est Glom Filt Rate - Afr Amer 118 mL/min (>60); Estimated Creatinine Clearance 72.67 ml/min; Globulin 3.8 g/dL (2.2-4.2); Glucose 52 mg/dL (74-106); Potassium 3.5 mmol/L (3.5-5.1); Protein, Total 7.3 g/dL (6.4-8.2); Sodium Level 141 mmol/L (136-145)
[2018-09-05 01:11] LABS: Alcohol, Blood (Medical)-Serum < 3.0 mg/dL
[2018-09-05 01:14] LABS: CPK Total, Creatine Kinase 265 U/L (26-192)
[2018-09-05] MEDS: Ondansetron 4 MG/2 ML Vial IV (01:28)
[2018-09-05] MEDS: Morphine 4 MG/ML Syringe IV (01:28)
[2018-09-05 01:35] LABS: Bedside Glucose 47 mg/dL (70-110)
[2018-09-05] MEDS: Dextrose 50%-Water 25 GM/50 ML DISP.SYRIN IV ×2 (01:39→08:53)
[2018-09-05 01:41] LABS: Bedside Glucose 46 mg/dL (70-110)
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
[2018-09-05 01:53] VITALS: BP 131/95; PULSE 94; RESP 18; O2SAT 95
--- NOTE | 2018-09-05 02:05 | NURSING ---
Computer in downtime. recheck on accucheck 118 after dextrose was given for blood sugar 46
[2018-09-05 03:42] LABS: Bedside Glucose 65 mg/dL (70-110)
[2018-09-05 03:48] VITALS: BP 122/69; PULSE 92; RESP 18; TEMP 36.8; O2SAT 98; BMI 47.8; BMI 47.9
--- NOTE | 2018-09-05 03:49 | ED.RN ---
SEE DOWNTIME DOCUMENTATION FROM 0200 TO ADMISSION
[2018-09-05] MEDS: Acetaminophen 325 MG Tablet 650 MG PO ×2 (04:53→13:54)
[2018-09-05 04:56] LABS: Bedside Glucose 80 mg/dL (70-110)
[2018-09-05 06:06] LABS: Anion Gap 8 (5-15); BUN 9 mg/dL (7-18); BUN/Creat Ratio 12.7 RATIO (10-20); Calcium,Total 8.4 mg/dL (8.5-10.1); Chloride 108 mmol/L (98-107); Creatinine, Serum 0.71 mg/dL (0.55-1.02); EST Glomerular Filtration Rate 93 mL/min (>60); Est Glom Filt Rate - Afr Amer 113 mL/min (>60); Estimated Creatinine Clearance 169.19 ml/min; Glucose 89 mg/dL (74-106); Potassium 3.7 mmol/L (3.5-5.1); Sodium Level 143 mmol/L (136-145)
[2018-09-05 06:24] LABS: Absolute Lymphocyte Count 5.49 X10^3/ul (0.83-4.51); Absolute Neutrophil Count 6.1 X10^3/uL (2.0-7.7); Basophil# 0.04 X10^3/uL; Basophil% 0.3 % (0-1); Eosinophils% 1.5 % (0-5); Hematocrit 39.1 % (37-47); Hemoglobin 12.7 g/dl (12.0-15.0); Lymphocyte # 5.49 X10^3/ul (4.0); Lymphocyte % 42.2 % (19-41); Mean Corp Hgb Conc 32.5 g/gl (32-36); Mean Corpuscular Hgb 30.2 pg (27.0-32.0); Mean Corpuscular Volume 92.9 fL (81-99); Monocyte# 1.15 X10^3/uL; Monocyte% 8.8 % (0-10); Neutrophil # 6.08 X10^3/uL (2.7-7.7); Neutrophil % 46.8 % (47-70); Platelet Count 211 K/mm3 (150-450); RBC Distribution Width CV 14.7 % (11.6-14.6); RBC Distribution Width SD 49.7 fl (35.1-43.9); Red Blood Count 4.21 M/mm3 (4.2-5.4)
[2018-09-05] MEDS: oxyCODONE 5 MG Tablet PO (06:24)
[2018-09-05 06:25] LABS: POSITIVE COUNT NO; POSITIVE DIFFERENTIAL YES; POSITIVE MORPHOLOGY NO
[2018-09-05 06:26] LABS: Differential Indicated SCAN CRITERIA MET
[2018-09-05 06:43] LABS: Reactive Lymphocyte RARE
[2018-09-05 07:14] VITALS: PULSE 84; RESP 20; O2SAT 97
[2018-09-05] MEDS: Albuterol 2.5 MG/3 ML VIAL.NEB. INHALATION (07:14)
[2018-09-05] MEDS: Budesonide Respules 0.5 MG/2 ML AMPUL.NEB. INHALATION (07:14)
[2018-09-05 07:54] LABS: Mucous, Urine 0 SEEN /hpf (<or=2+); Red Blood Cells-Urine 0 SEEN /hpf (0-5)
[2018-09-05 08:02] LABS: Color, Urine Yellow (Yellow); Glucose, Dipstick 50 mg/dl (Normal); Ketone-Dipstick Negative (Negative); Leukocyte Esterase-Dipstick 100 /ul (Negative); Nitrite-Dipstick Negative (Negative); Occult Blood-Urine Negative /ul (Negative); Protein-Dipstick Negative (Negative); Urine Bilirubin Dipstick Negative (Negative); Urine Clarity Sl. Cloudy (Clear); Urine Urobilinogen Normal (Normal)
[2018-09-05 08:09] LABS: Bacteria 1+ /hpf (None Seen); Squamous Epithelial Cells - UA 0-5 SEEN /hpf (5-10); White Blood Cells 10-25 SEEN /hpf (0-5)
[2018-09-05 08:11] LABS: Bedside Glucose 63 mg/dL (70-110)
[2018-09-05 08:14] LABS: Amphetamine Urine VISTA NEGATIVE (<1000 ng/mL); Barbiturate Urine VISTA NEGATIVE (< 200 ng/mL); Benzodiazepine Urine VISTA NEGATIVE (< 200 ng/mL); Cocaine Urine VISTA NEGATIVE (< 300 ng/mL); Ecstacy Urine VISTA POSITIVE (< 500 ng/mL); Methadone Urine VISTA NEGATIVE (< 300 ng/mL); PCP Urine VISTA NEGATIVE (< 25 ng/mL); THC Urine VISTA NEGATIVE (< 50 ng/mL); Vista UDS pH Range 5
--- NOTE | 2018-09-05 08:57 | NURSING ---
pt very tearful, c/o not being able to tolerate PO intake due to discomfort and not feeling up to eating. 0800 blood sugar was 63 and pt was given apple juice and was trying to drink it. after only being able to drink about 2 ounces, blood sugar was 58 with recheck and 0.5amp of D50 was given IV. will contact MD about further pain meds
[2018-09-05 09:06] LABS: Bedside Glucose 58 mg/dL (70-110)
[2018-09-05 09:11] LABS: Hematocrit 38.7 % (37-47); Hemoglobin 12.5 g/dl (12.0-15.0); Mean Corp Hgb Conc 32.3 g/gl (32-36); Mean Corpuscular Volume 92.8 fL (81-99); Mean Platelet Vol. 9.6 fl (6.2-12.0); Platelet Count 178 K/mm3 (150-450); RBC Distribution Width CV 14.8 % (11.6-14.6); RBC Distribution Width SD 49.9 fl (35.1-43.9); Red Blood Count 4.17 M/mm3 (4.2-5.4)
[2018-09-05 09:19] LABS: Scan Indicated on CBC? Y/N NO
[2018-09-05 09:28] LABS: Anion Gap 7 (5-15); BUN 9 mg/dL (7-18); BUN/Creat Ratio 11.4 RATIO (10-20); Calcium,Total 8.3 mg/dL (8.5-10.1); Chloride 106 mmol/L (98-107); Creatinine, Serum 0.79 mg/dL (0.55-1.02); EST Glomerular Filtration Rate 83 mL/min (>60); Est Glom Filt Rate - Afr Amer 100 mL/min (>60); Estimated Creatinine Clearance 152.06 ml/min; Glucose 160 mg/dL (74-106); Potassium 3.6 mmol/L (3.5-5.1); Sodium Level 143 mmol/L (136-145)
[2018-09-05 09:30] VITALS: BP 117/74; PULSE 74; RESP 16; TEMP 36.4; O2SAT 95
[2018-09-05 09:36] LABS: Bedside Glucose 111 mg/dL (70-110)
[2018-09-05 10:41] LABS: Bedside Glucose 73 mg/dL (70-110)
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
[2018-09-05] MEDS: Ketorolac 15 MG/ML Vial IV (11:13)
[2018-09-05] MEDS: 0.9% NaCl Peripheral Flush Adult/Peds IV ×2 (11:16→13:57)
[2018-09-05 11:20] LABS: Bedside Glucose 93 mg/dL (70-110)
[2018-09-05 11:26] LABS: Hemoglobin A1c 7.1 % (4.2-6.3)
--- NOTE | 2018-09-05 11:33 | CT_ITS ---
STUDY: CT ABDOMEN AND PELVIS WITHOUT CONTRAST REASON FOR EXAM: Female, 48 years old. Abdominal pain. RADIATION DOSAGE (If Supplied By Facility): CTDIvol = ( 24.06 ) mGy, DLP = ( 1340.36 ) mGycm TECHNIQUE: Transaxial images were obtained from the dome of the diaphragm to the symphysis pubis without oral contrast, and without intravenous contrast. Sagittal and coronal images were reconstructed. Individualized dose optimization techniques were used for this CT. COMPARISON: 01/02/2015. FINDINGS: The visualized lung bases are unremarkable. The visualized portions of the heart are within normal limits. Normal liver. There is non-visualization of the gallbladder, which may be secondary to either contraction or a prior cholecystectomy. Normal spleen. Normal pancreas. Normal bilateral adrenal glands. Normal right kidney. Normal left kidney. No definite renal or ureteral stones are seen. There is no hydronephrosis on either side. Evaluation of the GI tract is limited by absence of oral contrast. Cannot exclude stomach wall thickening. No dilated loops of bowel or evidence for obstruction. Cannot exclude segmental thickening of the yepez of the small or large bowel. Cannot exclude enteritis or colitis. Moderate diffuse fecal retention. Appendix has been removed. Normal abdominal aorta. Normal inferior vena cava. Normal retroperitoneum. Normal urinary bladder. Normal visualized uterus. Normal abdominal wall. Normal osseous structures. CT/Abdomen/Pelvis without Cont IMPRESSION: No definite acute abnormality. Electronically Signed: Mike Martínez MD at 12:02 EDT , Service support ,
[2018-09-05] MEDS: Enoxaparin 40 MG/0.4 ML Syringe SC (12:06)
[2018-09-05] MEDS: Levothyroxine 25 MCG TABLET PO (12:06)
[2018-09-05 12:07] LABS: HIV - WCH Non-Reactive (Nonreactive)
[2018-09-05 12:40] LABS: Bedside Glucose 102 mg/dL (70-110)
[2018-09-05 12:40] LABS: Bedside Glucose 59 mg/dL (70-110)
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
[2018-09-05 13:45] LABS: Bedside Glucose 97 mg/dL (70-110)
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
== END 2018-09-05 16:05 | disposition home or self-care (01) ==
LOC: ED 09-05 00:10 → MS3 09-05 01:54
PROVIDERS: Admitting Provider Hospitalist; Emergency Provider Emergency Medicine; Family Provider Internal Medicine; PCP Internal Medicine; Referring Provider Emergency Medicine; Visit Provider Internal Medicine
DX: E11.649 Type 2 diabetes mellitus with hypoglycemia without coma (principal); E78.5 Hyperlipidemia, unspecified; Z79.51 Long term (current) use of inhaled steroids; Z79.4 Long term (current) use of insulin; E03.9 Hypothyroidism, unspecified; S80.812A Abrasion, left lower leg, initial encounter; S80.811A Abrasion, right lower leg, initial encounter; X58.XXXA Exposure to other specified factors, initial encounter; Y93.9 Activity, unspecified; Y92.9 Unspecified place or not applicable; R51 Headache; M25.562 Pain in left knee; M25.561 Pain in right knee; J45.909 Unspecified asthma, uncomplicated; S30.811A Abrasion of abdominal wall, initial encounter; S40.812A Abrasion of left upper arm, initial encounter; S40.811A Abrasion of right upper arm, initial encounter; R68.84 Jaw pain; F17.210 Nicotine dependence, cigarettes, uncomplicated; E11.65 Type 2 diabetes mellitus with hyperglycemia; D72.829 Elevated white blood cell count, unspecified; Z79.899 Other long term (current) drug therapy
CPT/HCPCS: 36415; 70450; 71045; 73562; 74176; 80048; 80053; 80307; 80320; 81001; 82550; 82962; 83036; 85025; 85027; 86703; 93005; 94640; 96361; 96365; 96366; 96372; 96375; 96376; 97161; 97166; 99218; 99283; 99406; J7050; A4216; G0378; G0480; J2405

== ENCOUNTER 2018-09-04 23:09 | Outpatient (REF) | payer SELFPAY ==
[2018-09-05 00:31] VITALS: BMI 44.9
[2018-09-05 01:02] LABS: Pregnancy, Serum, hCG Quali. NEGATIVE Negative (0-9 Nonpreg)
== END 2018-09-05 03:00 | disposition home or self-care (01) ==
LOC: EDREF 23:09
PROVIDERS: Emergency Medicine
DX: Z04.41 Encounter for examination and observation following alleged adult rape (principal)
CPT/HCPCS: 84703

== ENCOUNTER 2018-11-25 03:02 | Emergency (ER) | payer MEDICARE, SELFPAY ==
[2018-11-25 03:02] VITALS: BP 144/85; PULSE 97; RESP 18; TEMP 36.4; O2SAT 98; BMI 48.4
--- NOTE | 2018-11-25 03:26 | ED.DCSUM_ITS ---
- ER Visit Summary Date of Service: 11/25/18 Chief Complaint: Dental pain History of Present Illness: The patient is a 48 F with right lower dental pain for a week she was at an outside ED and received clindamycin she still has pain she tells me she cannot sleep Physical Examination: Showed widespread dental decay, she has tenderness over the right lower premolar region, no periapical abscess no facial swelling. Emergency Department Course and Treatment: Patient will be treated with analgesia in the ED I will give her Naprosyn for home Disposition: Discharge stable condition Impression: Odontalgia This note was generated with [employer] dictation software. It may contain incorrect words, spelling, and punctuation that were not noted in review of the chart prior to signing ED Disposition - Plan for ED Patient: Disposition: Home or Assisted Living Instructions: ED [facility] Prescriptions: Naproxen [Naprosyn] 500 mg PO BID PRN #20 tab Referrals: Beatrice Piedra MD [Primary Care Provider] - 3-5 Days
[2018-11-25] MEDS: Morphine 4 MG/ML Syringe IM (03:35)
[2018-11-25] MEDS: Ketorolac 15 MG/ML Vial IM (03:35)
[2018-11-25 04:03] VITALS: BP 103/87; PULSE 81; RESP 18; O2SAT 99
== END 2018-11-25 04:05 | disposition home or self-care (01) ==
PROVIDERS: Emergency Provider Emergency Medicine; Family Provider Internal Medicine; PCP Internal Medicine
DX: K08.89 Other specified disorders of teeth and supporting structures (principal); E11.9 Type 2 diabetes mellitus without complications; Z79.84 Long term (current) use of oral hypoglycemic drugs
CPT/HCPCS: 96372; 99282

== ENCOUNTER 2019-04-08 13:02 | Outpatient (RCR) | payer MEDICARE, SELFPAY | END 2019-04-08 19:00 | disposition home or self-care (01) | LOC: PT 13:02 | PROVIDERS: Family Provider Internal Medicine; PCP Internal Medicine | DX: M48.061 Spinal stenosis, lumbar region without neurogenic claudication (principal); G89.18 Other acute postprocedural pain ==

== ENCOUNTER 2019-05-10 21:16 | Emergency (ER) | payer MEDICARE, SELFPAY ==
[2019-05-10 21:18] VITALS: BP 162/89; PULSE 101; RESP 18; TEMP 36.6; O2SAT 99; BMI 44.9
--- NOTE | 2019-05-10 21:45 | ED.VISSUMM ---
- ER Visit Summary Date of Service: 05/10/19 Chief Complaint: Back pain History of Present Illness: The patient is a 48 F presenting with back pain x3 months. Patient states she had back surgery in [place] 3 months ago. She states she has had pain since that time. She has been following with the nurse practitioner at the orthopedic surgeon's office. She had an MRI last week. She was started on muscle relaxers. She has been taking Tylenol. She is scheduled to start physical therapy next week. She had no new injury. She states she stood up from the couch and this worsened her lower back pain tonight. She denies bowel or bladder incontinence. Denies fever. Denies numbness or weakness. Denies other complaints. Physical Examination: Vitals are stable. Patient is afebrile. Alert no acute distress. HEENT exam is unremarkable. Neck is supple. Lungs are clear and equal bilaterally. Heart is regular rate and rhythm. Abdomen is soft nontender nondistended. Back: Incision clean dry and intact. Straight leg raise positive at 30 degrees bilaterally. Extremities are unremarkable. Skin is warm and dry. No focal neurologic deficit. Normal strength and sensation Remainder of exam is unremarkable. Emergency Department Course and Treatment: Patient was given morphine, Zofran IM with improvement. She is given short course of [place]. She is advised to follow-up with her orthopedic surgeon. Advised return to ED for worsening complaints. Disposition: Discharge home Impression: Acute on chronic back pain This note was generated with [employer] dictation software. It may contain incorrect words, spelling, and punctuation that were not noted in review of the chart prior to signing ED Disposition - Plan for ED Patient: Instructions: BACK AND NECK PAIN, General Prescriptions: Hydrocodone Bitart/Apap 5-325 [[place] 5MG-325MG] 1 tab PO Q6H PRN PRN 2 Days #6 tab PRN Reason: Pain Prescription Printed Referrals: Beatrice Piedra MD [Primary Care Provider] -
[2019-05-10] MEDS: Ondansetron 4 MG/2 ML Vial IM (21:54)
[2019-05-10] MEDS: morphine 8 MG/ML Syringe IM (21:54)
--- NOTE | 2019-05-10 22:49 | ED.DEP ---
ED Disposition - Plan for ED Patient: Instructions: BACK AND NECK PAIN, General Prescriptions: Hydrocodone Bitart/Apap 5-325 [[place] 5MG-325MG] 1 tablet PO Q6H PRN PRN 2 Days #6 tablet PRN Reason: Pain Referrals: Beatrice Piedra MD [Primary Care Provider] -
[2019-05-10 23:05] VITALS: BP 138/82
== END 2019-05-10 23:06 | disposition home or self-care (01) ==
LOC: ED 21:43
PROVIDERS: Emergency Provider Emergency Medicine; Family Provider Internal Medicine; PCP Internal Medicine
DX: M54.5 Low back pain (principal); G89.29 Other chronic pain
CPT/HCPCS: 96372; 99282; J2405

== ENCOUNTER 2019-05-17 01:09 | Emergency (ER) | payer MEDICARE, SELFPAY ==
[2019-05-17 01:11] VITALS: BP 138/87; PULSE 126; RESP 18; TEMP 36.9; O2SAT 97; BMI 45.8
--- NOTE | 2019-05-17 01:35 | ED.VIS.GEN ---
History of Present Illness Chief Complaint: Back Informant: Patient Onset: - - Acute on chronic back pain Current Severity: Moderate Maximum Severity: Severe Narrative: Patient presents with acute on chronic back pain. She had back surgery 4 months ago in [place]. She states pain was improved for approximately 1 week but she has had significant pain for the past 3 to half months. Pain rates in the left leg and she is a burning sensation in her left foot. She is currently on gabapentin. She had an MRI recently and followed up with nurse practitioner just this week. She states that there is a sac of fluid and blood from the surgery that is shrinking in size, but they do not feel that this is causing her worsened pain. They do not see another cause of her pain. She is scheduled to start physical therapy on May 21. Patient was seen here 1 week ago and received a prescription for 6 tabs of Shiloh. Patient states this did help while she had the medication but is now out. She is using Tylenol ibuprofen at home for pain. She states that heating pad seems to help more than anything else. - Past Medical History (1) Asthma Status: Chronic (2) Bipolar disorder Status: Chronic (3) Diabetes mellitus type 2 in obese Status: Chronic (4) Dyslipidemia Status: Chronic (5) Hypothyroidism Status: Chronic Past Medical History - Allergies and Home Meds Allergies/Adverse Reactions: Allergies latex Allergy (Verified 05/17/19 01:10) [facility] Primary Care Physician: Beatrice Piedra MD [Primary Care Provider] - Prior records reviewed: Yes Surgical History: appendectomy, cholecystectomy, - - Arm surgery; and knee surgery. Lives: Spouse/ Significant Other Smoking Status: Current every day smoker - Family History Maternal Family History: Reports: Diabetes, Heart Disease - Congestive heart failure and cardiomyopathy Sibling Family History: Reports: Heart Disease Review of Systems General: Denies: Chills, Fever Eyes: Denies: Visual changes - bilaterally ENT: Denies: Bilateral ear pain Cardiovascular: Denies: Chest pain Respiratory: Denies: Dyspnea, Cough Gastrointestinal: Denies: Abdominal pain, Nausea, Vomiting, Diarrhea Musculoskeletal: Reports: Back pain, Extremity Pain Skin: Denies: Rash Neurological: Reports: - - Burning and numbness in left foot. Denies: Headache Hematologic: Denies: Easy bruising, Easy bleeding Allergy: Denies: Uticaria Physical Exam Vital Signs/Narrative: Vital Signs Temp Pulse Resp BP Pulse Ox 05/17/19 01:11 98.5 F 126 H 18 138/87 H 97 Inital Vital Signs reviewed: Yes General: Well nourished, Well developed Head: Normocephalic ENT: Moist mucous membranes Neck: Supple Cardiovascular: Regular rate, Regular rhythm Respiratory: No distress, CTA bilaterally Abdomen: Soft, Nontender Back: - - Mild tenderness diffusely of the low back. No sign of wound infection. Extremities: Nontender Skin: Normal color Neurological: Alert, Oriented x3, Normal Strength, - - Patient reports decreased sensation to light touch over the left foot. This is been ongoing for several months. She has 1+ right patellar reflex, 2+ left patellar reflex. Psychological: Normal affect Diagnostic/Tx/Re-eval - Medical Decision Making [facility] report was reviewed. Patient be given a prescription for 12 tabs of Shiloh. This will last her until she starts her physical therapy. She is encouraged to follow-up with her orthopedist in [place]. ED Disposition - Plan for ED Patient: Disposition: Home or Assisted Living Diagnosis: Back pain Instructions: BACK PAIN (Acute or Chronic) Prescriptions: Hydrocodone Bitart/Apap 5-325 [Shil[place] 5MG-325MG] 1 tablet PO Q6H PRN PRN 3 Days #14 tablet PRN Reason: Pain Referrals: Beatrice Piedra MD [Primary Care Provider] - Additional Instructions: Follow-up for your physical therapy as discussed. Follow-up with your orthopedics doctor in [place] as scheduled.
[2019-05-17] MEDS: HYDROcodone Bitartrate/Apap 5/325 Tablet PO (01:41)
[2019-05-17 02:05] VITALS: RESP 16
== END 2019-05-17 02:07 | disposition home or self-care (01) ==
LOC: ED 01:51
PROVIDERS: Emergency Provider Emergency Medicine; Family Provider Internal Medicine; PCP Internal Medicine
DX: M54.5 Low back pain (principal); G89.29 Other chronic pain; J45.909 Unspecified asthma, uncomplicated; F31.9 Bipolar disorder, unspecified; E11.9 Type 2 diabetes mellitus without complications; E66.9 Obesity, unspecified; E78.5 Hyperlipidemia, unspecified; E03.9 Hypothyroidism, unspecified; F17.200 Nicotine dependence, unspecified, uncomplicated; Z79.4 Long term (current) use of insulin; Z79.51 Long term (current) use of inhaled steroids; Z79.899 Other long term (current) drug therapy
CPT/HCPCS: 99283

== ENCOUNTER 2019-06-03 23:05 | Emergency (ER) | payer MEDICARE, SELFPAY ==
[2019-06-03 23:06] VITALS: BP 110/85; PULSE 126; RESP 18; TEMP 37.3; O2SAT 97; BMI 44.9
--- NOTE | 2019-06-03 23:33 | RAD_ITS ---
STUDY: X-RAY - LEFT ANKLE REASON FOR EXAM: Female, 48 years old. Left ankle pain, fall TECHNIQUE: 3 view(s) of the ankle. COMPARISON: None. FINDINGS: Normal visualized distal tibia and fibula. Normal medial and lateral malleoli. Normal tibiotalar articulation and ankle mortise. Normal visualized talus and calcaneus. The visualized subtalar, talonavicular, calcaneocuboid and tarsal articulations are normal. The soft tissue structures are unremarkable. RAD/Ankle min 3 Views IMPRESSION: Negative x-ray examination of the ankle for acute fracture. Electronically Signed: Devon Ramirez, at 0:08 EST Tel , Service support ,
--- NOTE | 2019-06-03 23:34 | ED.VIS.GEN ---
History of Present Illness Chief Complaint: Fall Narrative: Patient is a 48-year-old female who presents with back pain and left ankle pain. She was walking her dog who went to selene a cat and caused her to step into a hole when she fell. She complains of pain in her entire back. She has a history of chronic back pain and had surgery for this 5 to 6 months ago. She also complains of left ankle pain. She has been able to ambulate. Her fall occurred about 6 hours ago. She did try Tylenol days. No numbness tingling weakness or loss of function. She denies head injury chest pain abdominal pain. No injury to the other extremities. Past Medical History - Allergies and Home Meds Allergies/Adverse Reactions: Allergies latex Allergy (Verified 06/03/19 23:08) [facility] Primary Care Physician: Beatrice Piedra MD [Primary Care Provider] - Past Medical History: - - Hyperlipidemia, chronic back pain Surgical History: appendectomy, cholecystectomy, - - Arm surgery; and knee surgery. Smoking Status: Current every day smoker - Family History Maternal Family History: Reports: Diabetes, Heart Disease - Congestive heart failure and cardiomyopathy Sibling Family History: Reports: Heart Disease Review of Systems All systems negative except as indicated General: Denies: Fever Cardiovascular: Denies: Chest pain Respiratory: Denies: Dyspnea Gastrointestinal: Denies: Abdominal pain Musculoskeletal: Reports: Back pain, Extremity Pain Skin: Denies: Rash Neurological: Denies: Headache Allergy: Denies: Uticaria Physical Exam Vital Signs/Narrative: Vital Signs Temp Pulse Resp BP Pulse Ox 06/03/19 23:06 99.1 F 126 H 18 110/85 H 97 Inital Vital Signs reviewed: Yes General: Well nourished, Well developed Head: Normocephalic Eyes: EOMI ENT: Moist mucous membranes Neck: Supple Cardiovascular: Regular rate, Regular rhythm Respiratory: No distress, CTA bilaterally Abdomen: Soft, Nontender, Nondistended Back: - - Patient complains of pain along the entire spine from lumbar to cervical both midline and paraspinally. She has no focal tenderness. Extremities: - - Patient complains of diffuse pain on palpation of the entire left ankle. No focal tenderness. No soft tissue swelling. No ecchymosis. Motor function intact. Normal sensation to light touch. Easily palpable dorsalis pedis pulse. Skin: Normal color Neurological: Alert Psychological: Normal affect Diagnostic/Tx/Re-eval - Medical Decision Making Patient complains of pain along the entire spine. She has no focal tenderness. I do not believe imaging of her back is necessary. Left ankle x-ray was obtained which is negative for fracture. Patient was given a tramadol here for pain. She was advised on supportive care including rest, ice, elevation. She was discharged home. ED Disposition - Plan for ED Patient: Disposition: Home or Assisted Living Diagnosis: Left ankle sprain, Back pain Instructions: FALL, Mechanical, BACK PAIN (Acute or Chronic), Sprain, Ankle, with X-Ray Referrals: Beatrice Piedra MD [Primary Care Provider] -
[2019-06-03] MEDS: traMADol 50 MG Tablet PO (23:38)
[2019-06-04 00:23] VITALS: BP 112/82; PULSE 86; RESP 16; O2SAT 97
== END 2019-06-04 00:27 | disposition home or self-care (01) ==
PROVIDERS: Emergency Provider Emergency Medicine; Family Provider Internal Medicine; PCP Internal Medicine
DX: S93.402A Sprain of unspecified ligament of left ankle, initial encounter (principal); M54.2 Cervicalgia; M54.6 Pain in thoracic spine; M54.5 Low back pain; G89.29 Other chronic pain; E78.5 Hyperlipidemia, unspecified; F17.200 Nicotine dependence, unspecified, uncomplicated; Z79.899 Other long term (current) drug therapy; W18.30XA Fall on same level, unspecified, initial encounter; Y93.K1 Activity, walking an animal; Y92.89 Other specified places as the place of occurrence of the external cause; Y99.8 Other external cause status
CPT/HCPCS: 73610; 99283

== ENCOUNTER 2019-06-12 19:35 | Emergency (ER) | payer MEDICARE, SELFPAY ==
[2019-06-12 19:37] VITALS: BP 118/63; PULSE 106; RESP 18; TEMP 36.8; O2SAT 97; BMI 47.2
--- NOTE | 2019-06-12 20:34 | RAD_ITS ---
STUDY: X-RAY - LEFT ANKLE REASON FOR EXAM: Female, 48 years old. ANKLE PAIN TECHNIQUE: 3 view(s) of the ankle. COMPARISON: June 03, 2019.. FINDINGS: Normal visualized distal tibia and fibula. Normal medial and lateral malleoli. Normal tibiotalar articulation and ankle mortise. Normal visualized talus and calcaneus. The visualized subtalar, talonavicular, calcaneocuboid and tarsal articulations are normal. There is no demonstrated fracture. The soft tissue structures are unremarkable. RAD/Ankle min 3 Views IMPRESSION: Normal x-ray examination of the ankle. Electronically Signed: Harvey Guevara MD at 20:53 EST , Service support ,
--- NOTE | 2019-06-12 20:53 | ED.VISSUMM ---
- ER Visit Summary Date of Service: 06/12/19 Chief Complaint: Left foot pain History of Present Illness: The patient is a 48 F who presents with left foot pain that began 1 week ago. Patient states she twisted her foot and ankle at that time. Patient was seen here at that time. Patient states she had x-rays done which were negative. Patient states the pain is been persistent. Patient denies any new injury. Patient states the pain is worse over her ankle and hindfoot. Patient states her pain is worse with walking. Patient denies any paresthesias or weakness. Physical Examination: Vital signs are stable. Patient is afebrile. Patient is in no acute distress. Musculoskeletal exam reveals tenderness over the medial lateral malleoli of the left ankle. There is some mild edema. There is no ecchymosis. There is no deformity noted. There is mild tenderness over the tarsometatarsal joint area. There is no deformity. Sensation was intact to light touch in all digits. Capillary refill was less than 2 seconds in all digits. Pedal pulses are equal bilaterally. Test Results: X-rays of the left ankle were obtained. There is no acute fracture. These were interpreted by the radiologist and myself. Emergency Department Course and Treatment: Patient was given an Aircast and Naprosyn here. Patient was instructed to ice and elevate the left ankle. Patient was instructed to follow-up with her primary care physician in 5 to 7 days. Patient understood and was agreeable with the plan. All questions were answered. Disposition: Discharge home Impression: Left ankle sprain This note was generated with [employer] dictation software. It may contain incorrect words, spelling, and punctuation that were not noted in review of the chart prior to signing ED Disposition - Plan for ED Patient: Disposition: Home or Assisted Living Diagnosis: Left ankle sprain Instructions: Sprain, Ankle, with X-Ray Prescriptions: Naproxen [Naprosyn] 500 mg PO BID PRN #20 tab Prescription Printed Referrals: Beatrice Piedra MD [Primary Care Provider] - 5-7 Days
[2019-06-12] MEDS: Naproxen 500 MG Tablet PO (22:06)
[2019-06-12 22:10] VITALS: BP 111/78; PULSE 85; RESP 18; O2SAT 98
== END 2019-06-12 22:11 | disposition home or self-care (01) ==
PROVIDERS: Emergency Provider Emergency Medicine; Family Provider Internal Medicine; PCP Internal Medicine
DX: S93.402A Sprain of unspecified ligament of left ankle, initial encounter (principal); M54.9 Dorsalgia, unspecified; X50.1XXA Overexertion from prolonged static or awkward postures, initial encounter; Y93.9 Activity, unspecified; Y92.9 Unspecified place or not applicable; E11.9 Type 2 diabetes mellitus without complications; Z79.4 Long term (current) use of insulin; Z79.84 Long term (current) use of oral hypoglycemic drugs; F17.200 Nicotine dependence, unspecified, uncomplicated
CPT/HCPCS: 73610; 99283

== ENCOUNTER 2019-08-14 22:47 | Emergency (ER) | payer MEDICARE, SELFPAY ==
[2019-08-14 22:48] VITALS: BP 168/102; PULSE 125; RESP 18; TEMP 36.7; O2SAT 95; BMI 46.0
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
[2019-08-14] MEDS: 0.9% Normal Saline 1,000 ML 1000 ML IV (23:15)
[2019-08-14 23:17] LABS: Hematocrit 42.7 % (37-47); Hemoglobin 14.4 g/dL (12.0-15.0); Mean Corp Hgb Conc 33.7 g/dL (32-36); Mean Corpuscular Hgb 29.1 pg (27.0-32.0); Mean Corpuscular Volume 86.3 fL (81-99); Mean Platelet Vol. 10.2 fl (6.2-12.0); Platelet Count 225 K/mm3 (150-450); RBC Distribution Width CV 13.5 % (11.6-14.6); RBC Distribution Width SD 42.4 fl (35.1-43.9); Red Blood Count 4.95 M/mm3 (4.2-5.4); White Blood Count 12.3 K/mm3 (4.4-11.0)
[2019-08-14 23:34] LABS: Anion Gap 9 (5-15); BUN 13 mg/dL (7-18); BUN/Creat Ratio 12.5 RATIO (10-20); Calcium,Total 8.7 mg/dL (8.5-10.1); Chloride 102 mmol/L (98-107); Creatinine, Serum 1.04 mg/dL (0.55-1.02); EST Glomerular Filtration Rate 60 mL/min (>60); Est Glom Filt Rate - Afr Amer 72 mL/min (>60); Glucose 460 mg/dL (74-106); Potassium 3.9 mmol/L (3.5-5.1); Sodium Level 136 mmol/L (136-145)
[2019-08-14] MEDS: Insulin Lispro 100 UNIT/ML INSULN.PEN 20 UNIT SC (23:43)
[2019-08-15 00:30] LABS: Bedside Glucose 339 mg/dL (70-110)
[2019-08-15] MEDS: Insulin Lispro 100 UNIT/ML INSULN.PEN 15 UNIT SC (00:36)
[2019-08-15 00:37] VITALS: BP 124/73; PULSE 91; RESP 16; O2SAT 98
[2019-08-15 01:13] VITALS: BP 124/73; PULSE 91; RESP 16; O2SAT 98
--- NOTE | 2019-08-15 01:15 | ED.RN ---
B at 0110
== END 2019-08-15 01:15 | disposition home or self-care (01) ==
PROVIDERS: Emergency Provider Emergency Medicine; PCP Internal Medicine
DX: E11.65 Type 2 diabetes mellitus with hyperglycemia (principal); J45.909 Unspecified asthma, uncomplicated; E03.9 Hypothyroidism, unspecified; E78.5 Hyperlipidemia, unspecified; E66.9 Obesity, unspecified; F17.200 Nicotine dependence, unspecified, uncomplicated; Z79.4 Long term (current) use of insulin; Z79.51 Long term (current) use of inhaled steroids; Z79.899 Other long term (current) drug therapy
CPT/HCPCS: 80048; 82962; 85027; 96360; 99283; J7030; A4216

== ENCOUNTER 2019-08-21 22:16 | Emergency (ER) | payer MEDICARE, MEDICAID, SELFPAY ==
[2019-08-21 22:17] VITALS: BP 160/95; PULSE 108; RESP 17; TEMP 36.4; O2SAT 97; BMI 45.5
[2019-08-21] MEDS: Insulin Lispro 100 UNIT/ML INSULN.PEN SC (22:41)
[2019-08-21] MEDS: 0.9% Normal Saline 1,000 ML 1000 ML IV ×2 (22:41→23:05)
[2019-08-21 22:43] LABS: Absolute Lymphocyte Count 3.49 X10^3/uL (0.83-4.51); Absolute Neutrophil Count 6.5 X10^3/uL (2.0-7.7); Basophil# 0.06 X10^3/uL; Basophil% 0.5 % (0-1); Eosinophil# 0.19 X10^3/uL; Eosinophils% 1.7 % (0-5); Hematocrit 45.7 % (37-47); Hemoglobin 15.2 g/dL (12.0-15.0); Lymphocyte # 3.49 X10^3/ul (4.0); Lymphocyte % 31.9 % (19-41); Mean Corp Hgb Conc 33.3 g/dL (32-36); Mean Corpuscular Hgb 29.3 pg (27.0-32.0); Mean Corpuscular Volume 88.1 fL (81-99); Mean Platelet Vol. 9.9 fl (6.2-12.0); Monocyte# 0.67 X10^3/uL; Monocyte% 6.1 % (0-10); NRBC Flagged by Analyzer 0 % (0-5); Neutrophil # 6.45 X10^3/uL (2.7-7.7); Neutrophil % 59.2 % (47-70); Platelet Count 211 K/mm3 (150-450); RBC Distribution Width CV 13.6 % (11.6-14.6); Red Blood Count 5.19 M/mm3 (4.2-5.4); White Blood Count 10.9 K/mm3 (4.4-11.0)
[2019-08-21 22:57] LABS: Anion Gap 5 (5-15); BUN 15 mg/dL (7-18); BUN/Creat Ratio 18.3 RATIO (10-20); Calcium,Total 8.6 mg/dL (8.5-10.1); Chloride 101 mmol/L (98-107); Creatinine, Serum 0.82 mg/dL (0.55-1.02); EST Glomerular Filtration Rate 79 mL/min (>60); Est Glom Filt Rate - Afr Amer 95 mL/min (>60); Estimated Creatinine Clearance 59.61 ml/min; Glucose 271 mg/dL (74-106); Potassium 3.5 mmol/L (3.5-5.1); Sodium Level 136 mmol/L (136-145)
--- NOTE | 2019-08-21 23:52 | ED.DCSUM_ITS ---
History of Present Illness Chief Complaint: Hyperglycemia Narrative: Patient presenting secondary to hyperglycemia. Patient has an underlying history of diabetes, she is on oral hypoglycemics as well as 38 units of long- acting insulin per day. Patient states that for the last 3 days she has been having sugars that have been running high and she has been thirsty and urinating a lot. She denies any other infectious signs or symptoms. It has made her feel slightly lightheaded. She reports that she called her primary care and they recommended that she come to the emergency department. Past Medical History - Allergies and Home Meds Allergies/Adverse Reactions: Allergies latex Allergy (Verified 08/21/19 22:17) Shania Primary Care Physician: Beatrice Piedra MD [Primary Care Provider] - Past Medical History: - - Diabetes Surgical History: appendectomy, cholecystectomy, - - Arm surgery; and knee surgery. Smoking Status: Current every day smoker - Family History Maternal Family History: Reports: Diabetes, Heart Disease - Congestive heart failure and cardiomyopathy Sibling Family History: Reports: Heart Disease Review of Systems All systems negative except as indicated General: Reports: Malaise Eyes: Denies: Visual changes - bilaterally, Diplopia ENT: Denies: Rhinorrhea, Sore throat Cardiovascular: Denies: Chest pain, Palpitations Respiratory: Denies: Dyspnea, Cough, Dyspnea on exertion Gastrointestinal: Denies: Abdominal pain, Nausea, Vomiting, Diarrhea, Melena, Hematochezia Genitourinary: Denies: Dysuria, Hematuria, Frequency Musculoskeletal: Denies: Back pain, Extremity Pain Skin: Denies: Rash, Wounds Neurological: Denies: Headache, Weakness, Numbness Endocrine: Reports: Polyuria, Polydipsia Physical Exam Vital Signs/Narrative: Vital Signs Temp Pulse Resp BP Pulse Ox 08/21/19 22:17 97.5 F L 108 H 17 160/95 H 97 Inital Vital Signs reviewed: Yes General: Obese Head: Normocephalic, Atraumatic Eyes: Perrl, EOMI ENT: Moist mucous membranes, No rhinorrhea Neck: Supple, Nontender Cardiovascular: Regular rate, Regular rhythm, No murmurs Respiratory: No distress, CTA bilaterally, Chest nontender Abdomen: Soft, Nontender, Nondistended, Normal bowel sounds Back: Nontender, Normal Inspection Extremities: Nontender, No edema Skin: Normal color, No rash Neurological: Alert, Oriented x3, Cranial nerves II-XII grossly intact, Normal Strength, Normal Sensation Psychological: Normal affect, Normal Mood Diagnostic/Tx/Re-eval - Medical Decision Making Patient presented secondary to hyperglycemia. She was ordered 2 L normal saline, and 10 units of insulin. CBC and chemistry found to be unremarkable except for hyperglycemia with sugar in the 200s, ketones were negative. On repeat evaluation of the patient she was eating a bag of chips and questioned me why her blood sugar was continuing to go up. At this point she has no symptomatology that would require hospital admission or further work-up. Patient will be discharged with outpatient follow-up with primary care for titration of her diabetes medications. ED Disposition - Plan for ED Patient: Disposition: Home or Assisted Living Diagnosis: Hyperglycemia Instructions: ED Diabetic Hyperglycemia Referrals: Beatrice Piedra MD [Primary Care Provider] - 3-5 Days
[2019-08-22 00:03] VITALS: BP 150/68; PULSE 91; RESP 18; O2SAT 98
== END 2019-08-22 00:04 | disposition home or self-care (01) ==
PROVIDERS: Emergency Provider Emergency Medicine; PCP Internal Medicine
DX: E11.65 Type 2 diabetes mellitus with hyperglycemia (principal); F17.200 Nicotine dependence, unspecified, uncomplicated; Z79.4 Long term (current) use of insulin
CPT/HCPCS: 80048; 82009; 85025; 96360; 99283; J7030; A4216

== ENCOUNTER 2019-10-15 21:40 | Emergency (ER) | payer MEDICARE, MEDICAID, SELFPAY ==
[2019-10-15 21:40] VITALS: BP 157/83; PULSE 116; RESP 20; TEMP 36.3; O2SAT 96; BMI 64.4
--- NOTE | 2019-10-15 22:38 | RAD_ITS ---
STUDY: X-RAY - THORACIC SPINE REASON FOR EXAM: Female, 49 years old. Back pain after fall. TECHNIQUE: 3 view(s) of the thoracic spine were obtained. COMPARISON: CTA of the chest, March 23, 2018. FINDINGS: Normal kyphosis of the thoracic spine. There is no substantial scoliosis. Minimal endplate spondylosis. Normal disc space heights. There is no evidence of acute fracture or loss of vertebral axial height. The soft tissue structures are unremarkable. RAD/Thoracic Spine 2 Views IMPRESSION: Minimal degenerative changes of the thoracic spine. There is no acute fracture or subluxation. There is no interval change. Electronically Signed: Greg Sneed DO at 23:12 EDT Tel [phone], Service support ,
--- NOTE | 2019-10-15 22:39 | ED.DCSUM_ITS ---
History of Present Illness Chief Complaint: Back Informant: Patient Onset: Yesterday Context: Gradual Onset Current Severity: Moderate Maximum Severity: Severe Worsened by: Movement Narrative: Patient presents secondary back pain. Patient had a mechanical fall yesterday where she tripped over a pallet, landing on her hands and knees. After short time she started to notice tightening in her back throughout the thoracic and lumbar region. Pain does not radiate to her arms or legs. No problems with bowel or bladder control. She does have a history of prior back surgery. She did take tramadol, last dose approximately 5 hours ago. She was given tramadol for chronic feet pain by her PCP. - Past Medical History (1) Hypertension Status: Chronic (2) History of cholecystectomy Status: Chronic (3) Hx of appendectomy Status: Chronic (4) Previous back surgery Status: Chronic (5) Asthma Status: Chronic (6) Bipolar disorder Status: Chronic (7) Diabetes mellitus type 2 in obese Status: Chronic (8) Dyslipidemia Status: Chronic Past Medical History - Allergies and Home Meds Allergies/Adverse Reactions: Allergies latex Allergy (Verified 08/21/19 22:17) [facility] Primary Care Physician: Beatrice Piedra MD [Primary Care Provider] - Prior records reviewed: Yes Surgical History: appendectomy, cholecystectomy, - - Arm surgery; and knee surgery. Smoking Status: Current every day smoker - Family History Maternal Family History: Reports: Diabetes, Heart Disease - Congestive heart failure and cardiomyopathy Sibling Family History: Reports: Heart Disease Review of Systems General: Denies: Chills, Fever Eyes: Denies: Visual changes - bilaterally ENT: Denies: Bilateral ear pain Cardiovascular: Denies: Chest pain Respiratory: Denies: Dyspnea Gastrointestinal: Denies: Abdominal pain, Nausea, Vomiting, Diarrhea Genitourinary: Denies: Dysuria Musculoskeletal: Reports: Back pain. Denies: Extremity Pain Skin: Denies: Rash Neurological: Denies: Headache, Weakness, Parasthesia Hematologic: Denies: Easy bruising Allergy: Denies: Uticaria Physical Exam Vital Signs/Narrative: Vital Signs Temp Pulse Resp BP Pulse Ox 10/15/19 21:40 97.3 F L 116 H 20 H 157/83 H 96 Inital Vital Signs reviewed: Yes General: Well nourished, Well developed Head: Normocephalic ENT: Moist mucous membranes Neck: Supple Cardiovascular: Regular rate, Regular rhythm Respiratory: No distress, CTA bilaterally Abdomen: Soft, Nontender Back: - - Tenderness throughout the thoracic and lumbar spine, both midline as well as bilateral paraspinal muscles. Extremities: Nontender Skin: Normal color Neurological: Alert, Oriented x3, Normal Strength, Normal Sensation Psychological: Normal affect Diagnostic/Tx/Re-eval Impressions Thoracic Spine X-Ray 10/15/19 22:38 IMPRESSION: Minimal degenerative changes of the thoracic spine. There is no acute fracture or subluxation. There is no interval change. Electronically Signed: Greg Sneed DO at 23:12 EDT Tel [phone], Service support , Lumbar Spine X-Ray 10/15/19 22:45 IMPRESSION: Minimal degenerative change lumbar spine stable and compared to a CT of September 05, 2018 Electronically Signed: Greg Sneed DO at 23:11 EDT Tel [phone], Service support , 10/15/19 22:38 Thoracic Spine 2 Views [RAD] Stat 10/15/19 22:45 Lumbar Spine 2 or 3 Views [RAD] Stat - Medical Decision Making Patient was given 2 tabs of [place] here on arrival for pain. Oars report was checked. Last prescription for tramadol was 7 days worth on September 25. She be given a short course of [place] for home. She was advised not to take this in addition to tramadol, 1 or the other. ED Disposition - Plan for ED Patient: Disposition: Home or Assisted Living Diagnosis: Back pain Instructions: ED Contusion Back Prescriptions: Hydrocodone Bitart/Apap 5-325 [T[place] 5MG-325MG] 1 tablet PO Q6H PRN PRN 3 Days #10 tablet PRN Reason: Pain Referrals: Beatrice Piedra MD [Primary Care Provider] - 1-2 Weeks
--- NOTE | 2019-10-15 22:45 | RAD_ITS ---
STUDY: X-RAY - LUMBAR SPINE REASON FOR EXAM: Female, 49 years old. Back pain after fall. TECHNIQUE: 3 view(s) of the lumbar spine were obtained. COMPARISON: CT of the abdomen and pelvis, September 05, 2018. FINDINGS: Normal lumbar lordosis. There is no substantial scoliosis. There is a normal alignment of the vertebrae. There is minimal endplate spondylosis. Normal disc space heights. There is no evidence of acute fracture or loss of vertebral axial height. The soft tissue structures are unremarkable. RAD/Lumbar Spine 2 or 3 Views IMPRESSION: Minimal degenerative change lumbar spine stable and compared to a CT of September 05, 2018 Electronically Signed: Greg Sneed DO at 23:11 EDT Tel [phone], Service support ,
[2019-10-15] MEDS: HYDROcodone Bitartrate/Apap 5/325 Tablet PO (22:59)
[2019-10-15 23:41] VITALS: RESP 18
== END 2019-10-15 23:41 | disposition home or self-care (01) ==
PROVIDERS: Emergency Provider Emergency Medicine; PCP Internal Medicine
DX: M54.5 Low back pain (principal); M54.6 Pain in thoracic spine; I10 Essential (primary) hypertension; J45.909 Unspecified asthma, uncomplicated; E11.9 Type 2 diabetes mellitus without complications; E66.9 Obesity, unspecified; E78.5 Hyperlipidemia, unspecified; F31.9 Bipolar disorder, unspecified; Z79.4 Long term (current) use of insulin; Z79.51 Long term (current) use of inhaled steroids; Z79.899 Other long term (current) drug therapy
CPT/HCPCS: 72070; 72100; 99283

== ENCOUNTER 2019-11-05 22:26 | Emergency (ER) | payer MEDICARE, MEDICAID, SELFPAY ==
[2019-11-05 22:27] VITALS: BP 148/95; PULSE 110; RESP 20; TEMP 36.4; O2SAT 97; BMI 48.3
--- NOTE | 2019-11-05 22:57 | ED.VIS.BACK ---
History of Present Illness Chief Complaint: Back Informant: Patient Onset: Weeks - 1.5 Chronic pain exacerbated by: a trip and fall Injury: Fall Timing: Continuous Quality: Aching Location: Lumbar Current Severity: Moderate Maximum Severity: Severe Worsened by: improves with: Movement, Ambulation, Bending Relieved by: Remaining Still Associated Symptoms: - - No numbness, weakness in lower extremities. No radiation to lower extremities. No bowel or bladder dysfunction. Narrative: Patient states I can hardly walk ... without my back hurting. Initially when asked how long she has had pain, she states it has been since her back surgery, which was in January of last year. On further questioning, she states after her surgery she had a couple of months that she was relatively pain-free, then she started having pain again, and has had it ever since. She never went back to her surgeon. She states a week and a half or 2 weeks ago, she tripped over a pallet, falling to her hands that which she scraped, and kind of twisted to the right she thinks, exacerbating the chronic back pain that she already had. She has been able to walk since then but with pain. She was seen in the ER the day after she states, had some x-rays that were unremarkable, and was prescribed some narcotic analgesics that were helping, the last about a week and ran out and ever since she has been having worsening pain. She has seen no one else prior to today for this. She denies any new symptoms along with this fall. No radiation down her legs, bowel or bladder dysfunction, or any neurologic symptoms. It just hurts to walk and it is better to sit down or rest. She has been taking [id number] Aleve along with Percocet, her last dose of Aleve was around 7 hours ago, she took 2 of them. She is diabetic and admits that her sugars are uncontrolled. She is compliant with her medications, but not her diet. Prior similar symptoms: Yes, With Prior Back Pain - Past Medical History (1) Asthma Status: Chronic (2) Bipolar disorder Status: Chronic (3) Diabetes mellitus type 2 in obese Status: Chronic (4) Dyslipidemia Status: Chronic (5) Hypertension Status: Chronic (6) Hypothyroidism Status: Chronic Past Medical History - Allergies and Home Meds Allergies/Adverse Reactions: Allergies latex Allergy (Verified 11/05/19 22:27Katherine Jauregui Primary Care Physician: Beatrice Piedra MD [Primary Care Provider] - Surgical History: appendectomy, cholecystectomy, - - Arm surgery; and knee surgery. Smoking Status: Current every day smoker - Family History Maternal Family History: Reports: Diabetes, Heart Disease - Congestive heart failure and cardiomyopathy Sibling Family History: Reports: Heart Disease Review of Systems General: Denies: Chills, Fever, Sweats Gastrointestinal: Denies: Abdominal pain, Nausea, Vomiting, Diarrhea, Melena, Hematochezia Genitourinary: Denies: Dysuria, Hematuria, Frequency Musculoskeletal: Reports: Back pain. Denies: Swelling, Extremity Pain Skin: Denies: Rash, Wounds Neurological: Denies: Headache, Weakness, Parasthesia, Numbness Physical Exam Vital Signs/Narrative: Vital Signs Temp Pulse Resp BP Pulse Ox 11/05/19 22:27 97.5 F L 110 H 20 H 148/95 H 97 Inital Vital Signs reviewed: Yes General: Well nourished, Well developed, Obese, Unkempt, - - NAD. Sits up in bed from a supine position without assistance. Head: Normocephalic, Atraumatic Respiratory: No distress Abdomen: Soft, Nontender, Nondistended, Normal bowel sounds, - - Exam relatively limited by morbid obesity Back: Surgical Scar, Well-Healed, Paraspinal Tenderness - Right lumbosacral, Negative SLR - Right, Negative SLR - Left. Negative for: Spinal tenderness, CVA tenderness Extremeties: Nontender, No edema Skin: Normal color, No rash, No Trauma Neuro: Alert, Oriented, Normal Strength, Normal Sensation, Normal Gait, Normal Reflexes - No clonus. Downgoing toes. Psychological: Normal affect, Normal Mood Diagnostic/Tx/Re-eval - Medical Decision Making I reviewed the thoracic and lumbar x-rays from over 2 weeks ago. They showed nothing acute. The patient states that obviously something is wrong, she is here looking for solution. I advised her that she has no neurologic deficits or radicular symptoms, or symptoms of cauda equina syndrome or conus medullaris. While this is reassuring, she does not meet any criteria for advanced emergent imaging to be performed. I advised her that she will unlikely find a cure for her chronic back problems here in the emergency department, I will treat her symptoms and give her a short course of Percocet after I reviewed her relatively concerning oarrs report, although she does not have active narcotic right now. I advised her that she needs to follow-up with her doctor closely. She may need physical therapy or chiropracty and/or weight loss in order to help her back issues if they persist. She declares understanding. After giving injections, and sending prescriptions electronically to her pharmacy of choice, she then wanted the prescriptions printed so that she could fill them immediately. I gave her 10 Percocet and Flexeril. ED Disposition - Plan for ED Patient: Disposition: Home or Assisted Living Diagnosis: Acute myofascial strain of lumbar region Instructions: ED LUMBAR SPRAIN/STRAIN Prescriptions: cycloBENZAPRine HCl [Flexeril] 10 mg PO TID PRN #20 tablet PRN Reason: Muscle Spasm Oxycodone HCl/Acetaminophen [Percocet 5/325] 1 tablet PO Q6H PRN PRN 3 Days #10 tablet PRN Reason: Pain Referrals: Beatrice Piedra MD [Primary Care Provider] - 1 Week if not improving
[2019-11-05] MEDS: Morphine 4 MG/ML Syringe IM (23:01)
[2019-11-05] MEDS: Orphenadrine 60 MG/2 ML Ampul IM (23:01)
[2019-11-05 23:30] VITALS: BP 129/88; PULSE 78; RESP 16; O2SAT 99
== END 2019-11-05 23:31 | disposition home or self-care (01) ==
LOC: ED 23:16
PROVIDERS: Emergency Provider Emergency Medicine; PCP Internal Medicine
DX: S39.012A Strain of muscle, fascia and tendon of lower back, initial encounter (principal); W01.0XXA Fall on same level from slipping, tripping and stumbling without subsequent striking against object, initial encounter; J45.909 Unspecified asthma, uncomplicated; G89.29 Other chronic pain; F31.9 Bipolar disorder, unspecified; F17.200 Nicotine dependence, unspecified, uncomplicated; E78.5 Hyperlipidemia, unspecified; E66.9 Obesity, unspecified; E11.9 Type 2 diabetes mellitus without complications; E03.9 Hypothyroidism, unspecified; I10 Essential (primary) hypertension; Z79.899 Other long term (current) drug therapy; Z79.4 Long term (current) use of insulin
CPT/HCPCS: 96372; 99283

== ENCOUNTER 2019-12-17 22:33 | Emergency (ER) | payer MEDICARE, MEDICAID, SELFPAY ==
[2019-12-17 22:33] VITALS: BP 150/89; PULSE 97; RESP 18; TEMP 36.2; O2SAT 97; BMI 46.3
--- NOTE | 2019-12-17 23:09 | ED.DCSUM_ITS ---
History of Present Illness Chief Complaint: Abscess Informant: Patient Onset: Weeks - 1 Context: Gradual Onset Timing: Continuous Narrative: Patient is a 49-year-old female presenting with pain and drainage from her umbi licus. She states is going on for about a week. She states it is bloody/odorous drainage. She is been putting toilet paper and peroxide in the umbilicus. Patient states she had a wound that had to be packed a long time ago and umbilicus. She does not want to get that bad. She denies associated fever chills. Denies any nausea, vomiting or other abdominal pain. She states it is especially bothersome because she sleeps on her abdomen. Patient denies any other complaints at this time. She denies any trauma to the area. She does have a bellybutton ring but states has had it for a long time and that is not bothering her. Past Medical History - Allergies and Home Meds Allergies/Adverse Reactions: Allergies latex Allergy (Verified 12/17/19 22:42) [facility] Primary Care Physician: Beatrice Piedra MD [Primary Care Provider] - Past Medical History: - - Bipolar disorder, hypothyroid, hyperlipidemia, diabetes mellitus, hypertension Surgical History: appendectomy, cholecystectomy, - - Arm surgery; and knee surgery. Smoking Status: Current every day smoker - Family History Maternal Family History: Reports: Diabetes, Heart Disease - Congestive heart failure and cardiomyopathy Sibling Family History: Reports: Heart Disease Review of Systems General: Denies: Chills, Fever, Sweats Eyes: Denies: Visual changes - bilaterally, Diplopia ENT: Denies: Rhinorrhea, Sore throat Cardiovascular: Denies: Chest pain, Palpitations Respiratory: Denies: Dyspnea, Cough, Dyspnea on exertion Gastrointestinal: Reports: Abdominal pain - umbilicus. Denies: Nausea, V omiting, Diarrhea, Melena, Hematochezia Genitourinary: Denies: Dysuria, Hematuria, Frequency Musculoskeletal: Denies: Back pain, Extremity Pain Skin: Reports: Wounds - umbilicus. Denies: Rash Neurological: Denies: Headache, Weakness, Numbness Physical Exam Vital Signs/Narrative: Vital Signs Temp Pulse Resp BP Pulse Ox 12/17/19 22:33 97.1 F L 97 18 150/89 H 97 Inital Vital Signs reviewed: Yes General: Well nourished, Well developed, No Acute Distress Head: Normocephalic, Atraumatic Eyes: Perrl, EOMI ENT: Moist mucous membranes, No rhinorrhea Neck: Supple, Nontender Cardiovascular: Regular rate, Regular rhythm, No murmurs Respiratory: No distress, CTA bilaterally, Chest nontender Abdomen: Soft, Nontender, Nondistended, Normal bowel sounds Back: Nontender, Normal Inspection Extremities: Nontender, No edema Skin: Normal color, No rash, - - No obvious deformity or defect in the umbilicus noted. No surrounding erythema. Patient has toilet paper packing in the umbilicus was removed there is a brown-giordano discharge present. Patient has tenderness with probing of the umbilicus with a cotton tipped applicator but I cannot appreciate any clear abscess or mass. Neurological: Alert, Oriented x3, Cranial nerves II-XII grossly intact, Normal Strength, Normal Sensation Psychological: Normal affect, Normal Mood Diagnostic/Tx/Re-eval - Medical Decision Making She has pain and drainage from her umbilicus. She does not have any obvious abscess or surrounding cellulitis. Given her symptomatology I will treat her with Keflex. She is counseled on Betadine swabs to the umbilicus to help dry up the area. She is instructed take Motrin as needed for pain. At this time she has normal vital signs and her exam is benign to do not think CT looking for a deep abdominal wall abscess is indicated. If she has worsening symptoms she is instructed return to the emergency room. Patient is counseled on signs and symptoms requiring return to the emergency room. Patient verbalizes agreement and understand this plan. Patient discharged home in stable and improved condition. ED Disposition - Plan for ED Patient: Disposition: Home or Assisted Living Diagnosis: Cellulitis of umbilicus Instructions: ED Cellulitis Prescriptions: Cephalexin [Keflex] 500 mg PO Q6 #40 cap Transmission Status: Received by [facility]/pharmacy #[id number] Referrals: Beatrice Piedra MD [Primary Care Provider] - Additional Instructions: Do not put any packing into your bellybutton at this time. Clean it out 3 times a day with Betadine. You can apply Betadine to a Q-tip and then use that to clean out your bellybutton. You do not need to continue to put peroxide on the area. If this worsens especially after 48 hours, please follow-up with your primary care doctor or return to the emergency room.
[2019-12-17] MEDS: Cephalexin 250 MG Capsule 500 MG PO (23:17)
== END 2019-12-17 23:21 | disposition home or self-care (01) ==
PROVIDERS: Emergency Provider Emergency Medicine; PCP Internal Medicine
DX: L03.316 Cellulitis of umbilicus (principal); E78.5 Hyperlipidemia, unspecified; I10 Essential (primary) hypertension; E11.9 Type 2 diabetes mellitus without complications; E03.9 Hypothyroidism, unspecified; Z79.4 Long term (current) use of insulin; Z79.899 Other long term (current) drug therapy; F17.200 Nicotine dependence, unspecified, uncomplicated
CPT/HCPCS: 99283

== ENCOUNTER 2020-01-05 22:25 | Emergency (ER) | payer MEDICARE, MEDICAID, SELFPAY ==
[2020-01-05 22:26] VITALS: BP 137/93; PULSE 100; RESP 15; TEMP 36.7; O2SAT 96; BMI 47.2
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
[2020-01-05 22:55] VITALS: RESP 15
== END 2020-01-05 22:56 | disposition home or self-care (01) ==
PROVIDERS: Emergency Provider Emergency Medicine; PCP Internal Medicine
DX: L08.82 Omphalitis not of newborn (principal); J45.909 Unspecified asthma, uncomplicated; E66.9 Obesity, unspecified; E11.9 Type 2 diabetes mellitus without complications; I10 Essential (primary) hypertension; F31.9 Bipolar disorder, unspecified; E78.5 Hyperlipidemia, unspecified; E03.9 Hypothyroidism, unspecified; Z79.51 Long term (current) use of inhaled steroids; Z79.4 Long term (current) use of insulin; Z79.899 Other long term (current) drug therapy
CPT/HCPCS: 99282

== ENCOUNTER → 2020-07-14 09:33 | Outpatient (CLI) | payer MEDICARE, MEDICAID, SELFPAY ==
--- NOTE | 2020-07-14 09:36 | RAD_ITS ---
PROCEDURE: Upper GI with Small Bowel Follow Through DATE OF EXAMINATION: 07/14/2020. INDICATION: Female, 50 years old. Daily diarrhea. Nausea and vomiting. FLUOROSCOPY TIME (if supplied): (1:32) minutes/seconds TECHNIQUE: Radiographic and fluoroscopic images of the distal esophagus, stomach, and entire small intestine were obtained following the oral ingestion of barium. COMPARISON: None. FINDINGS: The supervisor elementary education film of the abdomen demonstrates a normal bowel gas pattern. There are no abnormal calcifications or organomegaly demonstrated. The visualized osseous structures are normal. A single contrast small bowel follow through exam demonstrates the small bowel to have no evidence for stricture, ulceration or mass. The transit time is normal at 30 minutes. RAD/Upper GI/w Small Bowel IMPRESSION: 1. Normal single contrast small bowel follow-through exam. Electronically Signed: Wayne Cooper MD at 14:34 EST , Service support ,
== END ==
PROVIDERS: PCP Internal Medicine; Referring Provider Nurse Practitioner Adult Health; Visit Provider Nurse Practitioner Adult Health
DX: R19.7 Diarrhea, unspecified (principal); R11.0 Nausea; R19.4 Change in bowel habit; Z90.49 Acquired absence of other specified parts of digestive tract
CPT/HCPCS: 74246; 74248

== ENCOUNTER 2020-08-27 15:41 | Emergency (ER) | payer MEDICARE, MEDICAID, SELFPAY ==
[2020-08-27 15:41] VITALS: BP 160/102; PULSE 109; RESP 16; TEMP 36.4; O2SAT 96; BMI 42.2
--- NOTE | 2020-08-27 16:08 | ED.DCSUM_ITS ---
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 States that she developed pain in her neck and her back. Is been persistent. She has tried ibuprofen and hot baths. States she has had a lumbar spinal surgery last year at [facility] but does not know the surgeon's name or exactly why he did it other than her back was compressed. She denies any known fractures of her back. No long-term steroid use. No recent back injections. No fevers or rashes. No bowel or bladder dysfunction. She states is difficult for her to lay on her left hip and on her back. No sensory loss or paresthesias or foot drop. - Past Medical History (1) Asthma Status: Chronic (2) Bipolar disorder Status: Chronic (3) Diabetes mellitus type 2 in obese Status: Chronic (4) Dyslipidemia Status: Chronic (5) Hypertension Status: Chronic (6) Hypothyroidism Status: Chronic Past Medical History - Allergies and Home Meds Allergies/Adverse Reactions: Allergies latex Allergy (Verified 08/27/20 15:43) [facility] Primary Care Physician: Beatrice Piedra MD [Primary Care Provider] - Surgical History: appendectomy, cholecystectomy, - - Arm surgery; and knee surgery. Smoking Status: Current every day smoker Drugs: None - Family History Maternal Family History: Reports: Diabetes, Heart Disease - Congestive heart failure and cardiomyopathy Sibling Family History: Reports: Heart Disease Review of Systems General: Denies: Chills, Fever, Sweats Eyes: Denies: Visual changes - bilaterally, Diplopia ENT: Denies: Rhinorrhea, Sore throat Cardiovascular: Denies: Chest pain, Palpitations Respiratory: Denies: Dyspnea, Cough, Dyspnea on exertion Gastrointestinal: Denies: Abdominal pain, Nausea, Vomiting, Diarrhea, Melena, Hematochezia Genitourinary: Denies: Dysuria, Hematuria, Frequency Musculoskeletal: Reports: Neck pain, Back pain. Denies: Extremity Pain Skin: Denies: Rash, Wounds Neurological: Denies: Headache, Weakness, Parasthesia, Numbness Physical Exam Vital Signs/Narrative: Vital Signs Temp Pulse Resp BP Pulse Ox 08/27/20 15:41 97.5 F L 109 H 16 160/102 H 96 Inital Vital Signs reviewed: Yes General: Well nourished, Well developed, Obese, No Acute Distress Head: Normocephalic, Atraumatic Eyes: Perrl, EOMI ENT: Moist mucous membranes, No rhinorrhea Neck: Supple, Nontender Cardiovascular: Regular rate, Regular rhythm, No murmurs Respiratory: No distress, CTA bilaterally, Chest nontender Abdomen: Soft, Nontender, Nondistended, Normal bowel sounds Back: - - Patient has a well-healed lumbar midline incision. No skin changes to suggest infection. Tender to palpation lumbar paraspinal musculature in the cervical musculature. No significant scoliotic changes noted Extremities: Nontender, No edema Skin: Normal color, No rash Neurological: Alert, Oriented x3, Cranial nerves II-XII grossly intact, Normal Strength, Normal Sensation, Normal DTR - Achilles and patellar symmetric 2+, - - And is able to easily sit up on her own from a laying position to sitting on the side of the bed for examination Psychological: Normal affect, Normal Mood Diagnostic/Tx/Re-eval - Medical Decision Making This appears to be muscular in nature. I will write for muscle relaxants and a few pain medicine. As she has not contacted her doctor about this because it takes a while to get in. I suggest that she schedule appointment in the upcoming 1 to 2 weeks in case she is not better. She was given return instructions and notes understanding. ED Disposition - Plan for ED Patient: Disposition: Home or Assisted Living Diagnosis: Strain of lumbar paraspinal muscle, Cervical muscle strain Instructions: ED Back Sprain/Strain Prescriptions: cycloBENZAPRine HCl [Flexeril] 10 mg PO TID PRN #15 tab PRN Reason: Muscle Spasm Prescription Printed Hydrocodone Bitart/Apap 5-325 [[place] 5MG-325MG] 1 tab PO Q6H PRN PRN 3 Days #10 tab PRN Reason: Pain Prescription Printed Referrals: Beatrice Piedra MD [Primary Care Provider] - 1-2 Weeks Additional Instructions: Continue with warm baths, heat (heating pad), and ibuprofen.
== END 2020-08-27 16:27 | disposition home or self-care (01) ==
LOC: ED 16:20
PROVIDERS: Emergency Provider Emergency Medicine; PCP Internal Medicine
DX: S16.1XXA Strain of muscle, fascia and tendon at neck level, initial encounter (principal); S39.012A Strain of muscle, fascia and tendon of lower back, initial encounter; J45.909 Unspecified asthma, uncomplicated; E11.9 Type 2 diabetes mellitus without complications; E66.9 Obesity, unspecified; E78.5 Hyperlipidemia, unspecified; I10 Essential (primary) hypertension; F17.200 Nicotine dependence, unspecified, uncomplicated; X50.0XXA Overexertion from strenuous movement or load, initial encounter; Y93.89 Activity, other specified; Y92.89 Other specified places as the place of occurrence of the external cause; Y99.2 Volunteer activity
CPT/HCPCS: 99282

== ENCOUNTER 2020-11-15 22:58 | Emergency (ER) | payer MEDICARE, MEDICAID, SELFPAY ==
[2020-11-15 22:58] VITALS: BP 159/100; PULSE 110; RESP 18; TEMP 36.6; O2SAT 96; BMI 40.8
--- NOTE | 2020-11-15 23:10 | EDS_ITS ---
HPI History of Present Illness Chief Complaint: Lower Extremity Injury Informant: patient Narrative Narrative: 50-year-old female states that they are is something seriously wrong with my hip. She points to her left SI region and tells me it has been hurting for a month and progressively worsening. She states she has been seeing a chiropractor. She states that is not helping. She states it is painful to walk. She denies any radicular symptoms. She denies any trauma. States she has an appointment on the of next month with her primary care provider. She denies any rashes. No fevers. She is a diabetic. States her sugars have been high today because she ate some sweets. [facility] Medical History (Updated 11/15/20 @ 23:[address] Alhaji Piper DO) Asthma Bipolar disorder Diabetes mellitus type 2 in obese Dyslipidemia Hypertension Hypothyroidism Home Medications atorvastatin 10 mg PO QHS 02/27/16 [History Last Taken 09/04/18 11:00] levothyroxine 25 mcg PO DAILY 02/27/16 [History Last Taken 09/04/18 11:00] albuterol sulfate [ProAir HFA] 2 puff INHALATION Q4H PRN PRN 03/23/18 [History Last Taken 08/29/18 15:00] metformin 1,000 mg PO BID 03/23/18 [History Last Taken 09/04/18 22:00] budesonide-formoterol 2 puff INHALATION BID #1 inhaler 03/24/18 [Rx Last Taken 08/15/18 22:00] glimepiride 2 mg PO DAILY 05/10/19 [History Last Taken Unknown] insulin glargine 42 unit SQ BREAKFAST 05/10/19 [History Last Taken Unknown] lamotrigine 50 mg PO DAILY 05/10/19 [History Last Taken Unknown] olanzapine 10 mg PO QHS 05/10/19 [History Last Taken Unknown] cephalexin 500 mg PO Q6 #40 cap 12/17/19 [Rx Last Taken Unknown] cyclobenzaprine 10 mg PO TID PRN #15 tab 08/27/20 [Rx Last Taken Unknown] naproxen 500 mg PO BID #20 tab 11/15/20 [Rx Last Taken Unknown] oxycodone-acetaminophen 1 tab PO Q6H PRN PRN 3 Days #12 tablet 11/15/20 [Rx Last Taken Unknown] Allergy/AdvReac Type Severity Reaction Status Date / Time latex Allergy Hives Verified 11/15/20 23:00 Surgical History History of cholecystectomy Hx of appendectomy Previous back surgery Social History (Updated 11/15/20 @ 23:[address] Alhaji Piper DO) Smoking Status: Current every day smoker tobacco type: cigarettes substance use type: does not use ROS ROS ED Constitutional Constitutional ED: Denies chills or weight loss Eyes Eyes: Denies change in vision or diplopia ENT ENT ED: Denies ear pain, rhinorrhea or sore throat Cardiovascular Cardiovascular: Denies chest pain, orthopnea, palpitations or racing heartbeat Respiratory/Chest Respiratory/Chest: Denies cough, dyspnea or orthopnea Gastrointestinal Gastrointestinal: Denies abdominal pain, diarrhea, nausea or vomiting Genitourinary Genitourinary ED: Denies dysuria, hematuria or urinary frequency Musculoskeletal Musculoskeletal: Reports back pain; Denies arthralgias or myalgias Integumentary Denies abscess or rash Neurologic Neurologic: Denies headache(s) or weakness Psychiatric Psychiatric: Denies anxiety, depression, suicidal ideation or suicidal thoughts Endocrine Endocrinology: Denies polydipsia, polyphagia or polyuria Allergic/Immunologic Allergic/Immunologic ED: Denies mouth swelling, tongue swelling or urticaria EXAM Physical Exam Const Vital Signs: 11/15/20 22:58 Temperature 97.9 F Temperature Source Temporal Pulse Rate 110 H Respiratory Rate 18 Blood Pressure 159/100 H Blood Pressure Mean 119 Pulse Ox 96 Oxygen Delivery Method Room Air Positive well nourished, well developed and obese General Appearance ED: well developed Nutritional Appearance: obese HEENT Reports normocephalic, head/scalp atraumatic and moist mucous membranes Eyes PERRL and EOMs intact bilaterally Neck no lymphadenopathy, supple and no JVD Resp normal respiratory effort and clear to auscultation bilaterally Cardio regular rate, regular rhythm and no murmurs GI normal to inspection, nondistended, normoactive bowel sounds and non-tender Palpation: soft Back/Spine no CVA tenderness and normal ROM Back/Spine Narrative: Patient is tender to palpation over the left SI joint. There is no erythema or swelling. No skin changes to suggest infection. The hip appears normal Extremity normal to inspection General Extremety ED: Negative for edema General Extremity: Negative for edema Neuro oriented x3 and CN's II-XII intact bilaterally Sensorium / Orientation: alert Motor Exam: strength 5/5 throughout Psych mental status grossly normal Mood & Affect: Negative for depressed or tearful Skin no rashes or lesions noted and no wounds MDM MDM MDM Narrative Medical decision making narrative: Patient will be given a dose of Toradol and Kenalog. I can discharge her home with anti-inflammatories and a short course of [place]. Would recommend follow-up with primary care and suspect she would benefit from physical therapy and weight loss. Discharge Plan Triage Chief Complaint: Lower Extremity Injury ED Provider: Alhaji Piper Dx/Rx/DC Orders Clinical Impression: Pain of left sacroiliac joint Instructions: ED Sacroiliitis Prescriptions: New oxycodone-acetaminophen [oxycodone-acetaminophen] 1 TABLET tablet 1 tab PO Q6H PRN PRN (Reason: Pain) 3 Days Qty: 12 RF: 0 naproxen 500 MG tablet 500 mg PO BID Qty: 20 RF: 0 No Action atorvastatin 10 MG tablet 10 mg PO QHS RF: 0 levothyroxine 25 MCG tablet 25 mcg PO DAILY RF: 0 metformin 1,000 MG tablet 1,000 mg PO BID RF: 0 albuterol sulfate [ProAir HFA] 1 PUFF inhaler 2 puff inhalation Q4H PRN PRN (Reason: shortness of breath) RF: 0 budesonide-formoterol 1 INHALER inhaler 2 puff Inhalation BID Qty: 1 RF: 0 olanzapine 10 tablet 10 mg PO QHS RF: 0 glimepiride 2 tablet 2 mg PO DAILY RF: 0 lamotrigine 25 MG tablet 50 mg PO DAILY RF: 0 insulin glargine 100 UNIT/ML insulin pen 42 unit SQ BREAKFAST RF: 0 cephalexin 500 MG capsule 500 mg PO Q6 Qty: 40 RF: 0 cyclobenzaprine 10 MG tablet 10 mg PO TID PRN (Reason: Muscle Spasm) Qty: 15 RF: 0 Primary Care Provider: Beatrice Piedra Referrals: Beatrice Piedra MD [Primary Care Provider] - [facility] [place] appointment Activity Restrictions/Additional Instructions: As discussed you may benefit from using a cane or a walker or even crutches. These are available at numerous stores. Pain in your left SI joint can be a very problematic and long-term diagnosis. You would probably benefit from physical therapy. Disposition Disposition: Home, self care
[2020-11-15] MEDS: Ketorolac 30 MG/ML Syringe IM (23:17)
[2020-11-15] MEDS: Triamcinolone Acetonide 40 MG/ML Vial IM (23:19)
== END 2020-11-15 23:54 | disposition home or self-care (01) ==
PROVIDERS: Emergency Provider Emergency Medicine; PCP Internal Medicine
DX: M53.3 Sacrococcygeal disorders, not elsewhere classified (principal); J45.909 Unspecified asthma, uncomplicated; F31.9 Bipolar disorder, unspecified; E66.9 Obesity, unspecified; E78.5 Hyperlipidemia, unspecified; I10 Essential (primary) hypertension; E03.9 Hypothyroidism, unspecified; F17.210 Nicotine dependence, cigarettes, uncomplicated; Z79.51 Long term (current) use of inhaled steroids; Z79.4 Long term (current) use of insulin; Z79.899 Other long term (current) drug therapy
CPT/HCPCS: 96372; 99282

== ENCOUNTER 2020-12-04 23:17 | Emergency (ER) | payer MEDICARE, MEDICAID, SELFPAY ==
[2020-12-04 23:18] VITALS: BP 162/112; PULSE 126; RESP 20; TEMP 36.3; O2SAT 97; BMI 40.8
--- NOTE | 2020-12-04 23:52 | EDS_ITS ---
HPI History of Present Illness Chief Complaint: Fall Narrative Narrative: 50-year-old female presenting with left hip pain. She states that she was diagnosed with sciatica about a week ago and she is on Flexeril. She followed up with her PCP yesterday and she states that she was asked if she had muscle relaxers and she said yes. Patient was sent home after the visit. She did not have any imaging. Patient states that when she tried to get up today she had a muscle spasm and fell on her left hip. She states she is ambulatory but it hurts. [facility] Medical History Asthma Bipolar disorder Diabetes mellitus type 2 in obese Dyslipidemia Hypertension Hypothyroidism Home Medications atorvastatin 10 mg PO QHS 02/27/16 [History Last Taken 09/04/18 11:00] levothyroxine 25 mcg PO DAILY 02/27/16 [History Last Taken 09/04/18 11:00] albuterol sulfate [ProAir HFA] 2 puff INHALATION Q4H PRN PRN 03/23/18 [History Last Taken 08/29/18 15:00] metformin 1,000 mg PO BID 03/23/18 [History Last Taken 09/04/18 22:00] budesonide-formoterol 2 puff INHALATION BID #1 inhaler 03/24/18 [Rx Last Taken 08/15/18 22:00] glimepiride 2 mg PO DAILY 05/10/19 [History Last Taken Unknown] insulin glargine 14 unit SQ BREAKFAST 05/10/19 [History Last Taken Unknown] lamotrigine 50 mg PO DAILY 05/10/19 [History Last Taken Unknown] olanzapine 10 mg PO QHS 05/10/19 [History Last Taken Unknown] cyclobenzaprine 10 mg PO TID PRN #15 tab 08/27/20 [Rx Last Taken Unknown] naproxen 500 mg PO BID #20 tab 11/15/20 [Rx Last Taken Unknown] tizanidine [Zanaflex] 4 mg PO Q8H PRN #14 cap 12/05/20 [Rx Last Taken Unknown] Allergy/AdvReac Type Severity Reaction Status Date / Time latex Allergy Hives Verified 12/04/20 23:20 hydromorphone [From Dilaudid] AdvReac Vomiting Verified 12/04/20 23:20 Surgical History History of cholecystectomy Hx of appendectomy Previous back surgery Social History Smoking Status: Current every day smoker tobacco type: cigarettes substance use type: does not use ROS ROS ED Constitutional Constitutional ED: Denies chills, fever(s) or sweats Eyes Eyes: Denies blurry vision or change in vision ENT ENT ED: Denies ear pain, rhinorrhea or sore throat Cardiovascular Cardiovascular: Denies chest pain, palpitations or racing heartbeat Respiratory/Chest Respiratory/Chest: Denies cough, dyspnea or sputum Gastrointestinal Gastrointestinal: Denies abdominal pain, constipation, diarrhea or vomiting Genitourinary Genitourinary ED: Denies dysuria, hematuria or urinary frequency Musculoskeletal Musculoskeletal: Reports difficulty walking and other Details: Left hip pain Integumentary Denies abscess, Abrasions or rash Neurologic Neurologic: Denies headache(s), paresthesias or weakness Psychiatric Psychiatric: Denies anxiety, depression, suicidal ideation or suicidal thoughts Endocrine Endocrinology: Denies polydipsia or polyuria EXAM Physical Exam Const Vital Signs: 12/04/20 23:18 12/04/20 23:37 Temperature 97.3 F L Temperature Source Temporal Pulse Rate 126 H Respiratory Rate 20 H Respiratory Effort Normal Non-Labored Respiratory Depth Normal Respiratory Pattern Normal Blood Pressure 162/112 H Blood Pressure Mean 128 Pulse Ox 97 Oxygen Delivery Method Room Air Positive well nourished and no apparent distress HEENT Reports normocephalic and head/scalp atraumatic Eyes PERRL and EOMs intact bilaterally Neck full ROM Resp normal respiratory effort and normal air movement Cardio regular rate and regular rhythm Back/Spine thoracic and lumbar spine normal to inspection Sacrum: tenderness Coccyx: tenderness Extremity Extremity Narrative: Tenderness palpation over the left hip and left gluteal region. Psych mental status grossly normal Appearance: grossly normal and appropriate Skin no rashes or lesions noted and no wounds MDM MDM MDM Narrative Medical decision making narrative: Patient presenting with history of sciatica and mechanical fall secondary to her sciatic pain. She has pain in the left hip and buttocks. X-ray of the left hip and sacrum and coccyx are negative for acute fracture or subluxation as interpreted by myself and the radiologist does agree. Patient request a different muscle relaxer than cyclobenzaprine because she states is not helping. I will switch her to Zanaflex. She is counseled not to take these together. She was also counseled to follow-up with her PCP. Impression: 1 left hip contusion 2. Sacral contusion 3. History of sciatica Radiography Diagnostic Testing: Radiology Impression Hip/Pelvis X-Ray 12/05/20 00:00 IMPRESSION: Negative x-ray examination of the pelvis and hip. No acute fracture or hip dislocation. Electronically Signed: Devon Ramirez MD at 0:58 EDT Tel , Service support , Sacrum and Coccyx X-Ray 12/05/20 00:00 IMPRESSION: Negative x-rays of the sacrum and coccyx. Electronically Signed: Devon Ramirez MD at 0:58 EDT Tel , Service support , Discharge Plan Triage Chief Complaint: Fall ED Provider: Sukumar Stanton Dx/Rx/DC Orders Instructions: ED Mechanical Fall, ED Hip Contusion Prescriptions: New tizanidine [Zanaflex] 4 mg capsule 4 mg PO Q8H PRN (Reason: muscle spasticity) Qty: 14 RF: 0 No Action atorvastatin 10 MG tablet 10 mg PO QHS RF: 0 levothyroxine 25 MCG tablet 25 mcg PO DAILY RF: 0 metformin 1,000 MG tablet 1,000 mg PO BID RF: 0 albuterol sulfate [ProAir HFA] 1 PUFF inhaler 2 puff inhalation Q4H PRN PRN (Reason: shortness of breath) RF: 0 budesonide-formoterol 1 INHALER inhaler 2 puff Inhalation BID Qty: 1 RF: 0 olanzapine 10 tablet 10 mg PO QHS RF: 0 glimepiride 2 tablet 2 mg PO DAILY RF: 0 lamotrigine 25 MG tablet 50 mg PO DAILY RF: 0 insulin glargine 100 UNIT/ML insulin pen 14 unit SQ BREAKFAST RF: 0 cyclobenzaprine 10 MG tablet 10 mg PO TID PRN (Reason: Muscle Spasm) Qty: 15 RF: 0 naproxen 500 MG tablet 500 mg PO BID Qty: 20 RF: 0 Primary Care Provider: Beatrice Piedra Referrals: Beatrice Piedra MD [Primary Care Provider] - Disposition Disposition: Home, self care
[2020-12-04] MEDS: oxyCODONE 5 MG Tablet PO (23:58)
--- NOTE | 2020-12-05 | RAD_ITS ---
STUDY: X-RAY - SACRUM/COCCYX REASON FOR EXAM: Female, 50 years old. pain TECHNIQUE: 3 view(s) of the sacrum and coccyx were obtained. COMPARISON: None. FINDINGS: Normal bilateral sacroiliac joints. Normal visualized sacral ala and fused sacral bodies. Normal sacrococcygeal junction with a normal angulation. Normal coccygeal segments. The presacral soft tissue structures are unremarkable. No acute fracture. RAD/Sacrum-Coccyx min 2 Views IMPRESSION: Negative x-rays of the sacrum and coccyx. Electronically Signed: Devon Ramirez MD at 0:58 EDT Tel , Service support ,
--- NOTE | 2020-12-05 | RAD_ITS ---
STUDY: X-RAY - PELVIS AND LEFT HIP REASON FOR EXAM: Female, 50 years old. hip pain TECHNIQUE: 3 views of the pelvis and hip. COMPARISON: None. FINDINGS: There is a non-specific bowel gas pattern. Normal visualized soft tissue structures. Normal bilateral iliac wings, sacroiliac joints and visualized sacrum. Normal bilateral superior and inferior pubic rami. Normal pubic symphysis. Normal bilateral ischial tuberosities. Normal visualized femoral head. Normal acetabulum. Normal hip joint. RAD/HIP, UNI W/ Pelvis 2-3 Views IMPRESSION: Negative x-ray examination of the pelvis and hip. No acute fracture or hip dislocation. Electronically Signed: Devon Ramirez MD at 0:58 EDT Tel , Service support ,
== END 2020-12-05 01:59 | disposition home or self-care (01) ==
PROVIDERS: Emergency Provider Student in an Organized Health Care Education/Training Program; PCP Internal Medicine
DX: S70.02XA Contusion of left hip, initial encounter (principal); S30.0XXA Contusion of lower back and pelvis, initial encounter; E66.9 Obesity, unspecified; F17.210 Nicotine dependence, cigarettes, uncomplicated; E11.9 Type 2 diabetes mellitus without complications; E03.9 Hypothyroidism, unspecified; E78.5 Hyperlipidemia, unspecified; J45.909 Unspecified asthma, uncomplicated; Z79.4 Long term (current) use of insulin; W19.XXXA Unspecified fall, initial encounter; Z79.899 Other long term (current) drug therapy
CPT/HCPCS: 72220; 73502; 99283

== ENCOUNTER 2021-01-03 23:59 | Emergency (ER) | payer MEDICARE, MEDICAID, SELFPAY ==
[2021-01-04] VITALS: BP 132/83; PULSE 107; RESP 18; TEMP 35.8; O2SAT 94; BMI 40.8
--- NOTE | 2021-01-04 01:34 | EDS_ITS ---
HPI History of Present Illness Chief Complaint: Lower Extremity Injury Detail of Chief Complaint: Left lateral low back pain radiating down left leg. Informant: patient and spouse/S.O. Onset/Context/Timing Onset: Weeks Context: Gradual Onset Timing: Continuous Quality: Aching Location: Lumbar and Left Leg Current Severity: Mild Maximum Severity: Mild Worsened by: improves with Movement, Bending and Lifting Relieved by: Remaining Still Associated Symptoms Associated Symptoms: Radiation to Left Leg; Negative for Numbness, Tingling, Radiation to Right Leg, Fever, Abdominal Pain, Dysuria, Unable to Ambulate, Unable to Transfer, Urinary Retention and Urinary Incontinence Narrative Narrative: 50-year-old female with left lower back pain rating down her left buttock consistent with sciatica. Had prior back surgery. Denies any bowel or bladder incontinence. No fever. No abdominal pain. Did have a fall a week or so ago and x-rays that were negative. She has had pain well before that. States she was placed on muscle relaxants which is Dr. Alma Delia kc. Prior similar symptoms: Yes Recent Illness/Hospitalization: No PFSH [facility] Medical History Asthma Bipolar disorder Diabetes mellitus type 2 in obese Dyslipidemia Hypertension Hypothyroidism Home Medications atorvastatin 10 mg PO QHS 02/27/16 [History Last Taken 09/04/18 11:00] levothyroxine 25 mcg PO DAILY 02/27/16 [History Last Taken 09/04/18 11:00] albuterol sulfate [ProAir HFA] 2 puff INHALATION Q4H PRN PRN 03/23/18 [History Last Taken 08/29/18 15:00] metformin 1,000 mg PO BID 03/23/18 [History Last Taken 09/04/18 22:00] budesonide-formoterol 2 puff INHALATION BID #1 inhaler 03/24/18 [Rx Last Taken 08/15/18 22:00] glimepiride 2 mg PO DAILY 05/10/19 [History Last Taken Unknown] insulin glargine 14 unit SQ BREAKFAST 05/10/19 [History Last Taken Unknown] lamotrigine 50 mg PO DAILY 05/10/19 [History Last Taken Unknown] olanzapine 10 mg PO QHS 05/10/19 [History Last Taken Unknown] cyclobenzaprine 10 mg PO TID PRN #15 tab 08/27/20 [Rx Last Taken Unknown] naproxen 500 mg PO BID #20 tab 11/15/20 [Rx Last Taken Unknown] tizanidine [Zanaflex] 4 mg PO Q8H PRN #14 cap 12/05/20 [Rx Last Taken Unknown] hydrocodone-acetaminophen 1 tab PO Q4H PRN 5 Days #10 tab 01/04/21 [Rx Last Taken Unknown] Allergy/AdvReac Type Severity Reaction Status Date / Time latex Allergy Hives Verified 01/04/21 00:03 hydromorphone [From Dilaudid] AdvReac Vomiting Verified 01/04/21 00:03 Surgical History History of cholecystectomy Hx of appendectomy Previous back surgery Social History Smoking Status: Current every day smoker tobacco type: cigarettes substance use type: does not use ROS ROS ED ROS Narrative Denies recent illness. Review of Systems ROS Unobtainable: Denies due to encephalopathy Constitutional Constitutional ED: Denies chills or fever(s) Eyes Eyes: Denies change in vision ENT ENT ED: Denies ear pain or sore throat Cardiovascular Cardiovascular: Denies chest pain Respiratory/Chest Respiratory/Chest: Denies dyspnea or sputum Gastrointestinal Gastrointestinal: Denies abdominal pain, nausea or vomiting Genitourinary Genitourinary ED: Denies dysuria or hematuria Musculoskeletal Musculoskeletal: Reports back pain; Denies myalgias Integumentary Denies abscess or rash Neurologic Neurologic: Denies headache(s) Psychiatric Psychiatric: Denies depression Endocrine Endocrinology: Denies polyuria Hematologic/Lymphatic Hematologic/Lymphatic: Denies easy bruising Allergic/Immunologic Allergic/Immunologic ED: Denies urticaria EXAM Physical Exam Narrative Exam Narrative: Well-appearing middle-aged female. Vital signs stable afebrile does not look septic or toxic. HEENT exam unremarkable. Lungs are clear. Heart regular rhythm. Abdomen soft nontender. Moving all 4 extremities. Neurovascularly intact. Lower lumbar spines tender left SI joint is tender consistent with left sciatica with a positive straight leg raise. Both lower extremities are neurovascularly intact normal motor strength and sensation no cauda equina or saddle anesthesia. Const Vital Signs: 01/04/21 00:00 Temperature 96.4 F L Temperature Source Temporal Pulse Rate 107 H Respiratory Rate 18 Blood Pressure 132/83 H Blood Pressure Mean 99 Pulse Ox 94 Oxygen Delivery Method Room Air Positive well nourished and well developed; Negative for contractures General Appearance ED: well developed and NAD; Negative for contractures HEENT Reports moist mucous membranes Negative for trauma or tenderness Eyes PERRL and EOMs intact bilaterally Neck no lymphadenopathy, supple and no JVD General: Negative for tenderness Resp normal respiratory effort and clear to auscultation bilaterally Effort and Inspection: Negative for pain with movement Cardio regular rate, regular rhythm, S1 normal heart sound, S2 normal heart sound and no murmurs GI normal to inspection, nondistended, normoactive bowel sounds, soft to palpation, non-tender, non-distended and no masses Inspection: Negative for abdominal distention Palpation: Negative for tender, guarding or rebound tenderness present Back/Spine Negative for no thoracic nor lumbar tenderness Back/Spine Narrative: Lower lumbar tenderness at L5-S1 region. No signs of t rauma. No redness or warmth. Left SI exquisite tenderness. Consistent with sciatica. General Back: Negative for CVA tenderness Cervical Spine: Negative for cervical spine tenderness Lumbar Spine / Lower Back: straight leg raise positive - left; Negative for straight leg raise negative bilaterally Extremity normal to inspection Extremity Narrative: Both lower extremities are neurovascular intact with motor strength and sensation no cauda equina or saddle anesthesia. Positive straight leg raise on the left. General Extremety ED: Negative for edema or tenderness General Extremity: Negative for edema Neuro oriented x3 Sensorium / Orientation: alert Psych mental status grossly normal Skin no rashes or lesions noted and no wounds MDM MDM MDM Narrative Medical decision making narrative: History and exam are consistent with acute left sciatica. She will be given 2 [place] here for pain. Prescription for [place] at home for pain 10 otherwise ibuprofen ice to the area and follow-up with her primary care physician. Discharge Plan Triage Chief Complaint: Lower Extremity Injury ED Provider: Vernon Gallardo Dx/Rx/DC Orders Clinical Impression: Acute left-sided back pain with sciatica Instructions: ED Sciatica Prescriptions: New hydrocodone-acetaminophen 5-325 mg tablet 1 tab PO Q4H PRN (Reason: pain) 5 Days Qty: 10 RF: 0 No Action atorvastatin 10 MG tablet 10 mg PO QHS RF: 0 levothyroxine 25 MCG tablet 25 mcg PO DAILY RF: 0 metformin 1,000 MG tablet 1,000 mg PO BID RF: 0 albuterol sulfate [ProAir HFA] 1 PUFF inhaler 2 puff inhalation Q4H PRN PRN (Reason: shortness of breath) RF: 0 budesonide-formoterol 1 INHALER inhaler 2 puff Inhalation BID Qty: 1 RF: 0 olanzapine 10 tablet 10 mg PO QHS RF: 0 glimepiride 2 tablet 2 mg PO DAILY RF: 0 lamotrigine 25 MG tablet 50 mg PO DAILY RF: 0 insulin glargine 100 UNIT/ML insulin pen 14 unit SQ BREAKFAST RF: 0 cyclobenzaprine 10 MG tablet 10 mg PO TID PRN (Reason: Muscle Spasm) Qty: 15 RF: 0 naproxen 500 MG tablet 500 mg PO BID Qty: 20 RF: 0 tizanidine [Zanaflex] 4 mg capsule 4 mg PO Q8H PRN (Reason: muscle spasticity) Qty: 14 RF: 0 Primary Care Provider: Beatrice Piedra Referrals: Beatrice Piedra MD [Primary Care Provider] - 1 Week if not improving Activity Restrictions/Additional Instructions: Motrin 600 mg 3 times a day with food to decrease pain inflammation in your left lower back consistent with left sciatica. [place] for more severe pain. Do not drive or drink with the [place]. Follow-up with your doctor if not improving in a week. Ice to the area. You may stop the muscle relaxants. Disposition Disposition: Home, Self Care
[2021-01-04] MEDS: HYDROcodone Bitartrate/Apap 5/325 Tablet PO (01:48)
== END 2021-01-04 01:49 | disposition home or self-care (01) ==
PROVIDERS: Emergency Provider Emergency Medicine; PCP Internal Medicine
DX: M54.42 Lumbago with sciatica, left side (principal); J45.909 Unspecified asthma, uncomplicated; E11.9 Type 2 diabetes mellitus without complications; E78.5 Hyperlipidemia, unspecified; E03.9 Hypothyroidism, unspecified; I10 Essential (primary) hypertension; Z79.4 Long term (current) use of insulin; F17.210 Nicotine dependence, cigarettes, uncomplicated; Z79.899 Other long term (current) drug therapy
CPT/HCPCS: 99283

== ENCOUNTER 2021-01-28 10:06 | Day surgery (SDC) | payer MEDICARE, MEDICAID, SELFPAY ==
[2021-01-22 16:41] LABS: Hematocrit 43.3 % (37-47); Hemoglobin 14.4 g/dL (12.0-15.0); Mean Corp Hgb Conc 33.3 g/dL (32-36); Mean Corpuscular Hgb 29.6 pg (27.0-32.0); Mean Corpuscular Volume 88.9 fL (81-99); Mean Platelet Vol. 10.4 fl (6.2-12.0); Platelet Count 203 K/mm3 (150-450); RBC Distribution Width CV 13.9 % (11.6-14.6); RBC Distribution Width SD 45.5 fl (35.1-43.9); Red Blood Count 4.87 M/mm3 (4.2-5.4); White Blood Count 9.3 K/mm3 (4.4-11.0)
[2021-01-22 17:24] LABS: Anion Gap 7 (5-15); BUN 15 mg/dL (7-18); BUN/Creat Ratio 23.4 RATIO (10-20); Calcium,Total 8.8 mg/dL (8.5-10.1); Chloride 106 mmol/L (98-107); Creatinine, Serum 0.64 mg/dL (0.55-1.02); EST Glomerular Filtration Rate 104 mL/min (>60); Est Glom Filt Rate - Afr Amer 126 mL/min (>60); Glucose 192 mg/dL (74-106); Potassium 3.6 mmol/L (3.5-5.1); Sodium Level 140 mmol/L (136-145)
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
[2021-01-28] VITALS (12 sets, daily range): BP systolic 105–126; BP diastolic 74–96; PULSE 74–107; RESP 16–18; TEMP 36.1–36.9; O2SAT 89–98; BMI 41.2
--- NOTE | 2021-01-28 | IMM_PTH ---
PATIENT: JODIE CHILEL [place] [facility] [place][id number] AGE/SX: 50/F ROOM: RE01/28/[address]: Dr. Mary Jacobo, MDDOB: 1970 BED: DIS: 01/28/2021 SPEC #: [id number] RECD: 02/01/21 13:55 STATUS: RABIA REQ #: [id number] KARISSA: 01/28/21 00:[address]: Mary Jacobo DEPT: IMMUNOHISTOCHEMISTRY RECD BY: Christina Tran ENTERED: 02/01/21 13:57 SP TYPE: IMMUNO OTHR DR: Dr. Beatrice Piedra MD Tissues: Endometrium, NOS Procedures: MSH2 (add) MLH-1 (add) MSH6 (add) Anti-PMS2 (add) CEA (add) CK20 (add) CK7 (add) CK8 (add) ALFONSO-2 (add) HER2 BENEDICTO (add) P53 (add) IA (add) Vimentin (add) Pankeratin (add) ER (initial) PHYSICIAN & [place] [phone] SPECIMEN INFORMATION: Tissue Source: Endometrial curettings and polyp Clinical Info: LEE pap, endometrial polyps Specimen Number: [id number] CPT code: 55397, 97241 x14 METHODOLOGY: Deparaffinized sections of prefer/formalin-fixed tissue or PAP/DQ stained slides are incubated with monoclonal/polyclonal antibodies/oligonucleotide probes. Localization is made via biotin free immunoperoxidase method. Appropriate controls are performed and reacted as expected. Results on target cell population are indicated in the following table: RESULTS: ANTIBODY / CLONE RESULT AE1-3 (AE1/AE3/PCK26) positive CK7 (OV-TL12/30) positive CK8 (27uegtM61) positive CK20 (KS20.8) negative Vimentin (V9) positive CEA (11-7/TF-3HB-1) positive P53 (DO-7) positive, 10%, dim ALFONSO-2 (SP21) positive MLH-1 (M1) positive MSH2 (25D12) positive MSH6 (44) positive PMS2 (YGJ2548) positive Her-2neu (CB11) negative ER (6F11) positive IA (1E2) positive These tests were developed and their performance characteristics determined by [facility]. They may not have been cleared or approved by the U.S. Food and Drug Administration. The FDA has determined that such clearance or approval is not necessary. The above immunohistochemical/dualISH markers are ordered and reviewed by the Pathologist. INTERPRETATION: Endometrial curettings and polyp: Consistent with endometrial adenocarcinoma. Result of Microsatellite Instability Study: Negative (no loss of mismatch protein; no microsatellite instability detected). Case has been reviewed in consultation with Dr. Myles who concurs with the above diagnosis. IDC:JUAN AM:radha 02/02/2021
[2021-01-28 10:44] LABS: Internal QC Validated? YES +Cl - CLEAR BKGD; Pregnancy, Urine Negative Negative
[2021-01-28] MEDS: Lactated Ringers 1,000 ML 100 ML IV (11:02)
[2021-01-28 11:16] LABS: Bedside Glucose 200 mg/dL (70-110)
--- NOTE | 2021-01-28 11:45 | EMB_PTH ---
PATIENT: JODIE CHILEL LOC: [facility] [place] U#:[id number] AGE/SX: 50/F ROOM: RE01/28/[address]: Dr. Mary Jacobo, MDDOB: 1970 BED: DIS: 01/28/2021 SPEC #: [id number] RECD: 01/28/21 13:40 STATUS: RABIA JAYASHREE #: [id number] KARISSA: 01/28/21 11:[address]: Mary Jacobo DEPT: SURGICAL PATHOLOGY RECD BY: Franky Grajeda ENTERED: 01/29/21 08:42 SP TYPE: ENDOM BX/C GARETH DR: Dr. Beatrice Piedra MD Tissues: Endometrium, NOS Procedures: Surgery Specimen Level IV HEADER OPERATION: Hysteroscopy, D & C Symphion PRE-OP DIAGNOSIS: LEE pap, endometrial polyps TISSUE SUBMITTED: Endometrial curettings and polyp MICROSCOPIC DIAGNOSIS Endometrial curettings and polyp: Consistent with endometrial adenocarcinoma, FIGO grade 1 See comment. AM:radha 02/01/2021 COMMENT Immunohistochemistry ([id number]) supports the above diagnosis. Case has been reviewed in consultation with Dr. Myles who concurs with the above diagnosis. CAMILA:JUAN MICROSCOPIC DESCRIPTION Slides are reviewed. GROSS DESCRIPTION Received in fixative is one container labeled with the patient's name and designated endometrial curettings and polyp. The specimen consists of multiple irregular fragments of giordano soft tissue mixed with blood clot that in aggregate measure 2.5 x 2 x 0.3 cm. The entire specimen is submitted in one cassette. / JUAN:radha 01/29/21 TC:0 CPT: 88286
--- NOTE | 2021-01-28 11:59 | PCM.OPRPT ---
Problems Associated Problem List Diagnoses (1) Atypical glandular cells of undetermined significance (LEE) on cervical Pap smear: Report of Operation Date of Procedure: 01/28/21 Pre-Operative Diagnosis: lee pap, endometrial polyp Post-Operative Diagnosis: same Surgery/Procedure Performed:: hysteroscopy, D&C, polypectomy Surgeon: Mary Jacobo service station helper: None Type of Anesthesia: MAC Specimen's removed: endometrial curettings, endometrial polyps Drains: none Estimated Blood Loss (mL): 5cc Fluids Replaced: 500 Description of Procedure: After informed consent was obtained patient was taken to OR and placed in supine position. Anesthesia was given. patient was placed in yellow fin stirrups and prepped and draped in normal sterile fashion. bladder was drained with straight catheter with approximately 100cc of clear yellow urine expelled. Weighted speculum placed in posterior fornix of vaginal, single tooth tenaculum was used to gently grasped anterior lip of cervix. Uterus was sounded to 8 cm- retroverted. Cervix was then gently dilated in an incremental fashion. Was adequate dilation was achieved the hysteroscope was inserted using Normal saline as the distention medium. Upon hysteroscopy there was polypoid tissue noted at left tubual ostia. The symphion resecting device was used to perform endometrial curettage and to remove polypoid tissue. The tissue was then sent to pathology for examination. Uterine cavity intact, no complications. At this time procedure was deemed complete and successful. Tenaculum removed, speculum removed. Good hemostasis appreciated. Vaginal sweep was negative. Instrument and lap count correct x 2. I anticipate normal postoperative course. fluid deficit 350. Grafts/Implants Used: none Procedure Start Time: 12:19 Procedure Stop Time: 12:27 Complications ` none Admit VTE Documentation VTE Present on Admission: Yes VTE Mechan Device Prophylaxis: SCD's VTE Pharm Prophylaxis ordered?: No
--- NOTE | 2021-01-28 12:29 | EX.PCM.DISCH ---
Discharge Instructions Procedure D&C Diet Discharge Diet: No restrictions Activity May resume sexual activity in: 1 week Dressing / Incision Call your doctor if you observe: Fever of 101 or Higher, Inability to urinate, Using more than 1 pad per hour and Uncontrolled pain Follow Up Care Please Follow Up With: Mary Jacobo MD When: 1-2 weeks post OP if you need an appointment please call [phone] Test Results: Test results from this visit will be discussed in further detail at your follow-up appointment, if applicable. Discharge Plan Admission Attending Provider: Mary Jacobo Primary Care Provider: Beatrice Piedra Discharge Orders/Prescriptions Prescriptions: No Action atorvastatin 10 MG tablet 10 mg PO QHS RF: 0 levothyroxine 25 MCG tablet 25 mcg PO DAILY RF: 0 metformin 1,000 MG tablet 1,000 mg PO BID RF: 0 albuterol sulfate [ProAir HFA] 1 PUFF inhaler 2 puff inhalation Q4H PRN PRN (Reason: shortness of breath) RF: 0 lamotrigine [Lamictal] 25 MG tablet 150 mg PO DAILY RF: 0 insulin glargine 100 UNIT/ML insulin pen 14 unit SQ BREAKFAST RF: 0 buspirone 10 mg tablet 10 mg PO BID RF: 0 trazodone 300 mg tablet 300 mg PO QHS RF: 0 vitamin T93-zpblo acid 1-0.8 mg Tablet 1 tab PO DAILY RF: 0 carbamazepine 300 mg Capsule, Er Multiphase 12 Hr 600 mg PO QHS RF: 0 Atrovent HFA 17 mcg/actuation Hfa Aerosol Inhaler 1 inh INHALATION DAILY RF: 0 alpha lipoic acid 600 mg capsule 600 mg PO DAILY RF: 0 Other Ambulatory Orders: 12 Lead EKG (Routine) Timeframe: 20210122 Facility: [facility] - Location: Cardiovascular Services Ordered By: Dr. Mary Jacobo Referrals / Follow Up: Beatrice Piedra MD [Primary Care Provider] - Disposition Disposition (needs filled in before D/C Order can be placed): Home, Self Care
[2021-01-28] MEDS: Ibuprofen 600 MG Tablet PO (15:10)
== END 2021-01-28 16:02 | disposition home or self-care (01) ==
LOC: SDC 10:08 → AC 10:09
PROVIDERS: Anesthesiology; PCP Internal Medicine; Referring Provider Obstetrics & Gynecology; Visit Provider Obstetrics & Gynecology
PROC: 0UB98ZZ Excision of Uterus, Via Natural or Artificial Opening Endoscopic (ICD-10-PCS; CPT 58558; principal; 2021-01-28 11:30)
DX: C54.1 Malignant neoplasm of endometrium (principal); F43.23 Adjustment disorder with mixed anxiety and depressed mood; E11.9 Type 2 diabetes mellitus without complications; M79.7 Fibromyalgia; E03.9 Hypothyroidism, unspecified; E66.01 Morbid (severe) obesity due to excess calories; F17.210 Nicotine dependence, cigarettes, uncomplicated; J45.909 Unspecified asthma, uncomplicated; E78.00 Pure hypercholesterolemia, unspecified; I10 Essential (primary) hypertension; G47.30 Sleep apnea, unspecified; Z79.899 Other long term (current) drug therapy; Z79.84 Long term (current) use of oral hypoglycemic drugs; Z79.51 Long term (current) use of inhaled steroids
CPT/HCPCS: 58558; 36415; 80048; 81025; 82962; 85027; 88305; 88341; 88342; J7120

== ENCOUNTER 2021-03-11 16:56 | Emergency (ER) | payer MEDICARE, MEDICAID, SELFPAY ==
[2021-03-11 16:57] VITALS: BP 144/91; PULSE 93; RESP 14; TEMP 36.3; O2SAT 97; BMI 41.8
--- NOTE | 2021-03-11 17:20 | EX.ED.DYSGE1 ---
HPI History of Present Illness Chief Complaint: Wound Informant: patient Onset/Context/Timing Onset: Hours Quality: Incision sites that were glued are healing Location: Abdominal wall multiple sites Current Severity: Not applicable Maximum Severity: Not applicable Worsened by: Nothing Relieved by: Nothing Associated Symptoms Associated Symptoms: No constitutional symptoms or drainage Narrative Narrative: Patient is a 50-year-old woman who had laparoscopic surgery by Dr. Dino Simon in [place] earlier this week. She presents because the adhesive glue is peeling. There is no complaint of drainage, redness, discoloration or any other symptoms. Prior similar symptoms: No Recent Illness/Hospitalization: Yes [facility] Medical History Alcohol use Anxiety Arthritis Asthma Asthma Bipolar disorder Bipolar disorder CPAP (continuous positive airway pressure) dependence Depression Diabetes Diabetes mellitus type 2 in obese Dyslipidemia Endometrial polyp High cholesterol History of stress test Hypertension Hypothyroidism Injury of back Insulin dependent diabetes mellitus Migraine headache Sleep apnea Smoker Thyroid disease Wears glasses Home Medications atorvastatin 10 mg PO QHS 02/27/16 [History Last Taken 09/04/18 11:00] levothyroxine 25 mcg PO DAILY 02/27/16 [History Last Taken 01/28/21 08:00] albuterol sulfate [ProAir HFA] 2 puff INHALATION Q4H PRN PRN 03/23/18 [History Last Taken 08/29/18 15:00] metformin 1,000 mg PO BID 03/23/18 [History Last Taken 09/04/18 22:00] insulin glargine 14 unit SQ BREAKFAST 05/10/19 [History Last Taken Unknown] lamotrigine [Lamictal] 150 mg PO DAILY 05/10/19 [History Last Taken 01/28/21 08:00] alpha lipoic acid 600 mg PO DAILY 01/21/21 [History Last Taken Unknown] buspirone 10 mg PO BID 01/21/21 [History Last Taken Unknown] carbamazepine 600 mg PO QHS 01/21/21 [History Last Taken Unknown] ipratropium bromide [Atrovent HFA] 1 inh INHALATION DAILY 01/21/21 [History Last Taken Unknown] trazodone 300 mg PO QHS 01/21/21 [History Last Taken Unknown] vitamin H26-mjodi acid 1 tab PO DAILY 01/21/21 [History Last Taken Unknown] Allergy/AdvReac Type Severity Reaction Status Date / Time latex Allergy Hives Verified 03/11/21 16:57 hydromorphone [From Dilaudid] AdvReac Vomiting Verified 03/11/21 16:57 Surgical History History of cholecystectomy Hx of appendectomy Previous back surgery Social History Smoking Status: Current every day smoker tobacco type: cigarettes substance use type: does not use ROS ROS ED Constitutional Constitutional ED: Denies chills, fever(s), subjective or sweats Gastrointestinal Gastrointestinal: Denies abdominal pain, diarrhea, nausea or vomiting Genitourinary Genitourinary ED: Denies dysuria, hematuria or urinary frequency Musculoskeletal Musculoskeletal: Denies arthralgias, back pain, myalgias or neck pain Integumentary Denies abscess, Abrasions or rash Neurologic Neurologic: Denies headache(s), paresthesias or weakness EXAM Physical Exam Const Vital Signs: 03/11/21 16:57 Temperature 97.4 F L Temperature Source Temporal Pulse Rate 93 Respiratory Rate 14 Blood Pressure 144/91 H Blood Pressure Mean 108 Pulse Ox 97 Oxygen Delivery Method Room Air Positive well nourished, well developed and obese General Appearance ED: well developed and NAD Nutritional Appearance: obese HEENT Reports moist mucous membranes trauma and tenderness Eyes PERRL and EOMs intact bilaterally Neck no lymphadenopathy, supple and no JVD Resp normal respiratory effort Cardio regular rate and regular rhythm GI normal to inspection, nondistended, normoactive bowel sounds and non-tender GI Narrative: Port site's are intact without erythema, warmth, fluctuance or drainage. There is minimal bruising noted. Palpation: soft Back/Spine no CVA tenderness Neuro oriented x3 Sensorium / Orientation: alert Psych mental status grossly normal Skin no rashes or lesions noted Wounds: wounds noted MDM MDM MDM Narrative Medical decision making narrative: Patient presents because the adhesive glue is peeling. The incisions are intact. There is nothing that can be done at this point. Patient was instructed to keep appointment with her surgeon. Discharge Plan Triage Chief Complaint: Wound ED Provider: Mathew Santiago Dx/Rx/DC Orders Clinical Impression: Encounter for post surgical wound check Instructions: ED Post Op Wound Check, General Prescriptions: No Action atorvastatin 10 MG tablet 10 mg PO QHS RF: 0 levothyroxine 25 MCG tablet 25 mcg PO DAILY RF: 0 metformin 1,000 MG tablet 1,000 mg PO BID RF: 0 albuterol sulfate [ProAir HFA] 1 PUFF inhaler 2 puff inhalation Q4H PRN PRN (Reason: shortness of breath) RF: 0 lamotrigine [Lamictal] 25 MG tablet 150 mg PO DAILY RF: 0 insulin glargine 100 UNIT/ML insulin pen 14 unit SQ BREAKFAST RF: 0 buspirone 10 mg tablet 10 mg PO BID RF: 0 trazodone 300 mg tablet 300 mg PO QHS RF: 0 vitamin Z89-tdjcu acid 1-0.8 mg Tablet 1 tab PO DAILY RF: 0 carbamazepine 300 mg Capsule, Er Multiphase 12 Hr 600 mg PO QHS RF: 0 Atrovent HFA 17 mcg/actuation Hfa Aerosol Inhaler 1 inh INHALATION DAILY RF: 0 alpha lipoic acid 600 mg capsule 600 mg PO DAILY RF: 0 Primary Care Provider: Beatrice Piedra Referrals: Beatrice Piedra MD [Primary Care Provider] - Activity Restrictions/Additional Instructions: Keep appointment with surgeon as scheduled. Disposition Disposition: Home, Self Care
[2021-03-11 17:35] VITALS: PULSE 84; RESP 20; O2SAT 97
--- NOTE | 2021-03-11 17:35 | ED.RN ---
THIS NURSE REVIEWED D/C INSTRUCTIONS WITH PT AND VISITOR. PT VERBALIZED UNDERSTANDING OF INSTRUCTIONS. PT DENIES FURTHER NEEDS OR QUESTIONS AT THIS TIME
== END 2021-03-11 17:36 | disposition home or self-care (01) ==
LOC: ED 17:33
PROVIDERS: Emergency Provider Emergency Medicine; PCP Internal Medicine
DX: Z98.890 Other specified postprocedural states (principal); F41.9 Anxiety disorder, unspecified; M19.90 Unspecified osteoarthritis, unspecified site; J45.909 Unspecified asthma, uncomplicated; F31.9 Bipolar disorder, unspecified; E11.9 Type 2 diabetes mellitus without complications; E78.5 Hyperlipidemia, unspecified; I10 Essential (primary) hypertension; E03.9 Hypothyroidism, unspecified; F17.210 Nicotine dependence, cigarettes, uncomplicated; E66.9 Obesity, unspecified; Z79.4 Long term (current) use of insulin; Z79.51 Long term (current) use of inhaled steroids; Z79.899 Other long term (current) drug therapy
CPT/HCPCS: 99282

== ENCOUNTER 2021-04-16 23:17 | Emergency (ER) | payer MEDICARE, MEDICAID, SELFPAY ==
[2021-04-16 23:17] VITALS: BP 151/94; PULSE 103; RESP 18; TEMP 36.6; O2SAT 97; BMI 39.2
--- NOTE | 2021-04-16 23:32 | EDS_ITS ---
HPI History of Present Illness Chief Complaint: Back Informant: patient Onset/Context/Timing Onset: Today Chronic pain exacerbated by: nothing that she knows of; worse since getting up this AM Timing: Continuous Quality: Aching Location: Lumbar, Buttock and Left Leg Current Severity: Severe Maximum Severity: Severe Worsened by: improves with Movement and Ambulation Relieved by: Remaining Still Associated Symptoms Associated Symptoms: Radiation to Left Leg; Negative for Numbness, Tingling, Radiation to Right Leg, Abdominal Pain, Dysuria, Unable to Ambulate, Unable to Transfer, Urinary Retention, Urinary Incontinence, Constipation and Fecal Incontinence Narrative Narrative: Patient has had left low back/buttock pain radiating down her left lower extremity for 3 months, some days worse than others but today has been severe all day. She denies any overuse or injury yesterday that she knows of. She states all day today, she has been having intermittent near falls due to her leg feeling like it is giving out on her. She denies any numbness or bowel or bladder dysfunction. [facility] Medical History Alcohol use Anxiety Arthritis Asthma Asthma Bipolar disorder Bipolar disorder CPAP (continuous positive airway pressure) dependence Depression Diabetes Diabetes mellitus type 2 in obese Dyslipidemia Endometrial polyp High cholesterol History of stress test Hypertension Hypothyroidism Injury of back Insulin dependent diabetes mellitus Migraine headache Sleep apnea Smoker Thyroid disease Wears glasses Home Medications atorvastatin 10 mg PO QHS 02/27/16 [History Last Taken 09/04/18 11:00] levothyroxine 25 mcg PO DAILY 02/27/16 [History Last Taken 01/28/21 08:00] albuterol sulfate [ProAir HFA] 2 puff INHALATION Q4H PRN PRN 03/23/18 [History Last Taken 08/29/18 15:00] metformin 1,000 mg PO BID 03/23/18 [History Last Taken 09/04/18 22:00] insulin glargine 14 unit SQ BREAKFAST 05/10/19 [History Last Taken Unknown] lamotrigine [Lamictal] 150 mg PO DAILY 05/10/19 [History Last Taken 01/28/21 08:00] alpha lipoic acid 600 mg PO DAILY 01/21/21 [History Last Taken Unknown] buspirone 10 mg PO BID 01/21/21 [History Last Taken Unknown] carbamazepine 600 mg PO QHS 01/21/21 [History Last Taken Unknown] ipratropium bromide [Atrovent HFA] 1 inh INHALATION DAILY 01/21/21 [History Last Taken Unknown] trazodone 300 mg PO QHS 01/21/21 [History Last Taken Unknown] vitamin S29-iqogx acid 1 tab PO DAILY 01/21/21 [History Last Taken Unknown] hydrocodone-acetaminophen 1 tab PO Q4H PRN PRN 2 Days #10 tablet 04/16/21 [Rx Last Taken Unknown] Allergy/AdvReac Type Severity Reaction Status Date / Time latex Allergy Hives Verified 04/16/21 23:19 hydromorphone [From Dilaudid] AdvReac Vomiting Verified 04/16/21 23:19 Surgical History History of cholecystectomy Hx of appendectomy Previous back surgery Social History Smoking Status: Current every day smoker tobacco type: cigarettes substance use type: does not use ROS ROS ED Constitutional Constitutional ED: Denies chills or fever(s) Gastrointestinal Gastrointestinal: Denies abdominal pain, constipation, fecal incontinence, nausea or vomiting Genitourinary Genitourinary ED: Reports other Details: no urinary retention ; Denies abdominal discomfort or urinary incontinence Musculoskeletal Musculoskeletal: Reports as per HPI and back pain; Denies neck pain Integumentary Denies rash or wounds Neurologic Neurologic: Denies headache(s), paresthesias or weakness EXAM Physical Exam Const Vital Signs: 04/16/21 23:17 Temperature 98 F Temperature Source Temporal Pulse Rate 103 H Respiratory Rate 18 Blood Pressure 151/94 H Blood Pressure Mean 113 Pulse Ox 97 Oxygen Delivery Method Room Air Positive well nourished and well developed General Appearance ED: well developed and NAD HEENT Negative for trauma or tenderness Eyes PERRL and EOMs intact bilaterally Neck full ROM and supple GI normal to inspection, nondistended, normoactive bowel sounds, soft to palpation and non-tender Back/Spine normal to inspection Lumbar Spine / Lower Back: ROM limited, paraspinal muscle tenderness left and straight leg raise negative bilaterally Extremity normal to inspection, full ROM and no pedal edema Neuro oriented x3 and no sensory deficits noted Sensorium / Orientation: alert Motor Exam: strength 5/5 throughout and clonus absent Deep Tendon Reflexes: Rt Patellar (L4): 2+, Lt Patellar (L4): 2+, Rt Ankle (S1): 2+ and Lt Ankle (S1): 2+ Deep Tendon Reflexes Back: Rt Patellar (L4): 2+, Lt Patellar (L4): 2+, Rt Ankle (S1): 2+ and Lt Ankle (S1): 2+ Plantar Reflex: Downgoing: bilateral Psych mental status grossly normal and thought process normal Skin no rashes or lesions noted and no wounds MDM MDM MDM Narrative Medical decision making narrative: Her leg raises are negative, the ipsilateral 1 reproduces back pain only and not radicular symptoms. However this certainly could be sciatica, and she tested positive the last time she was in the emergency department for this. There is a nationwide shortage on crutches right now which is the only assist device for ambulation that we have in the emergency department and we are reserving these for our patients with broken bones in the lower extremities. I advised the patient to get a cane to help her get around without falling, I am unable to prevent this from occurring again but I am he may be able to treat the patient's pain. She has normal strength in her lower extremities right now, limited only by back pain when she moves her left lower extremity. She had x-rays of her back several months ago which I do not think need to be repeated, I advised close outpatient follow-up with her doctor if she has had discomfort for 3 months that is not getting better, she may be a good candidate for MR imaging and referral. Discharge Plan Triage Chief Complaint: Back ED Provider: Harvey Lucero Dx/Rx/DC Orders Clinical Impression: Pain of left sacroiliac joint Instructions: ED Sacroiliitis, ED Sciatica Prescriptions: New hydrocodone-acetaminophen [hydrocodone-acetaminophen] 1 TABLET tablet 1 tab PO Q4H PRN PRN (Reason: Pain) 2 Days Qty: 10 RF: 0 No Action atorvastatin 10 MG tablet 10 mg PO QHS RF: 0 levothyroxine 25 MCG tablet 25 mcg PO DAILY RF: 0 metformin 1,000 MG tablet 1,000 mg PO BID RF: 0 albuterol sulfate [ProAir HFA] 1 PUFF inhaler 2 puff inhalation Q4H PRN PRN (Reason: shortness of breath) RF: 0 lamotrigine [Lamictal] 25 MG tablet 150 mg PO DAILY RF: 0 insulin glargine 100 UNIT/ML insulin pen 14 unit SQ BREAKFAST RF: 0 buspirone 10 mg tablet 10 mg PO BID RF: 0 trazodone 300 mg tablet 300 mg PO QHS RF: 0 vitamin C89-gjvpl acid 1-0.8 mg Tablet 1 tab PO DAILY RF: 0 carbamazepine 300 mg Capsule, Er Multiphase 12 Hr 600 mg PO QHS RF: 0 Atrovent HFA 17 mcg/actuation Hfa Aerosol Inhaler 1 inh INHALATION DAILY RF: 0 alpha lipoic acid 600 mg capsule 600 mg PO DAILY RF: 0 Primary Care Provider: Beatrice Piedra Referrals: Beatrice Piedra MD [Primary Care Provider] - 3-5 Days if not improving
[2021-04-16] MEDS: Morphine 4 MG/ML Syringe IM (23:36)
[2021-04-16] MEDS: Ondansetron ODT 4 MG Tablet 8 MG PO (23:37)
== END 2021-04-16 23:46 | disposition home or self-care (01) ==
LOC: ED 23:39
PROVIDERS: Emergency Provider Emergency Medicine; PCP Internal Medicine
DX: M53.3 Sacrococcygeal disorders, not elsewhere classified (principal); F41.9 Anxiety disorder, unspecified; M19.90 Unspecified osteoarthritis, unspecified site; J45.909 Unspecified asthma, uncomplicated; F31.9 Bipolar disorder, unspecified; E11.9 Type 2 diabetes mellitus without complications; E66.9 Obesity, unspecified; E78.5 Hyperlipidemia, unspecified; I10 Essential (primary) hypertension; E03.9 Hypothyroidism, unspecified; Z79.4 Long term (current) use of insulin; Z79.51 Long term (current) use of inhaled steroids; Z79.899 Other long term (current) drug therapy; F17.210 Nicotine dependence, cigarettes, uncomplicated
CPT/HCPCS: 96372; 99283

== ENCOUNTER 2021-06-15 16:42 | Emergency (ER) | payer MEDICARE, MEDICAID, SELFPAY ==
[2021-06-15 16:42] VITALS: BP 138/83; PULSE 104; RESP 18; TEMP 36.4; O2SAT 99; BMI 40.6
--- NOTE | 2021-06-15 17:36 | ED.VIS.BACK ---
HPI History of Present Illness Chief Complaint: Back Detail of Chief Complaint: Back pain Informant: patient Onset/Context/Timing Current Severity: Severe Narrative Narrative: Patient presents with back pain that started initially about 6 months ago. Patient's had pain off and on that she describes as sciatica. Patient states that over the last 2 days she is having more severe pain. She describes pain radiating from her left lower back down her leg. She denies significant weakness of the extremity although she feels sometimes like it is going to give out. Patient denies any urinary symptoms. She denies change of brought bowel or bladder function. Patient states that she had back surgery about 5 years ago and had a lumbar decompression. Patient denies recent illness. She denies fall or injury. Prior similar symptoms: Yes PFSH PFSH Medical History Alcohol use Anxiety Arthritis Asthma Asthma Bipolar disorder Bipolar disorder CPAP (continuous positive airway pressure) dependence Depression Diabetes Diabetes mellitus type 2 in obese Dyslipidemia Endometrial polyp High cholesterol History of stress test Hypertension Hypothyroidism Injury of back Insulin dependent diabetes mellitus Migraine headache Sleep apnea Smoker Thyroid disease Wears glasses Home Medications atorvastatin 10 mg PO QHS 02/27/16 [History Last Taken 09/04/18 11:00] levothyroxine 25 mcg PO DAILY 02/27/16 [History Last Taken 01/28/21 08:00] albuterol sulfate [ProAir HFA] 2 puff INHALATION Q4H PRN PRN 03/23/18 [History Last Taken 08/29/18 15:00] metformin 1,000 mg PO BID 03/23/18 [History Last Taken 09/04/18 22:00] insulin glargine 14 unit SQ BREAKFAST 05/10/19 [History Last Taken Unknown] lamotrigine [Lamictal] 150 mg PO DAILY 05/10/19 [History Last Taken 01/28/21 08:00] alpha lipoic acid 600 mg PO DAILY 01/21/21 [History Last Taken Unknown] buspirone 10 mg PO BID 01/21/21 [History Last Taken Unknown] carbamazepine 600 mg PO QHS 01/21/21 [History Last Taken Unknown] ipratropium bromide [Atrovent HFA] 1 inh INHALATION DAILY 01/21/21 [History Last Taken Unknown] trazodone 300 mg PO QHS 01/21/21 [History Last Taken Unknown] vitamin J67-skzjr acid 1 tab PO DAILY 01/21/21 [History Last Taken Unknown] hydrocodone-acetaminophen 1 tab PO Q4H PRN PRN 2 Days #10 tablet 04/16/21 [Rx Last Taken Unknown] cyclobenzaprine 10 mg PO TID PRN #20 tablet 06/15/21 [Rx Last Taken Unknown] hydrocodone-acetaminophen 1 tab PO Q4H PRN PRN 3 Days #15 tablet 06/15/21 [Rx Last Taken Unknown] methylprednisolone [Medrol (Diony)] 4 mg PO DAILY #21 tab 06/15/21 [Rx Last Taken Unknown] Allergy/AdvReac Type Severity Reaction Status Date / Time latex Allergy Hives Verified 06/15/21 16:44 hydromorphone [From Dilaudid] AdvReac Vomiting Verified 06/15/21 16:44 Surgical History History of cholecystectomy Hx of appendectomy Previous back surgery Social History Smoking Status: Current every day smoker tobacco type: cigarettes substance use type: does not use ROS ROS ED Constitutional Constitutional ED: Reports systems reviewed and no addt'l complaints, except as documented; Denies body ache(s), change in weight or chills Eyes Eyes: Denies acute decrease in peripheral vision, change in vision, double vision or loss of vision ENT ENT ED: Reports none; Denies ear pain, lip swelling, loss taste/smell, neck pain, otalgia or sore throat Cardiovascular Cardiovascular: Reports none; Denies abdominal pain, chest pain with activity, leg edema, lightheadedness, palpitations, rapid heart rate or syncope Respiratory/Chest Respiratory/Chest: Reports none; Denies change in mental status, dry cough, dyspnea, hemoptysis, shortness of breath at rest or shortness of breath with exertion Gastrointestinal Gastrointestinal: Reports none; Denies abdominal pain, change in stool character, diarrhea, hematemesis, hematochezia, melena, rectal bleeding or vomiting Genitourinary Genitourinary ED: Reports none; Denies abdominal discomfort, anuria, dysuria, genital pain or polyuria Musculoskeletal Musculoskeletal: Reports none and back pain; Denies arthralgias, difficulty walking, extremity pain, muscle weakness or myalgias Integumentary Reports none; Denies abscess or rash Neurologic Neurologic: Reports none; Denies abnormal gait, confusion, focal weakness, frequent falls, headache(s), loss of vision, numbness, paresthesias, radicular pain, vertigo or weakness Psychiatric Psychiatric: Reports systems reviewed and no addt'l complaints, except as documented and none; Denies behavioral changes, confusion, difficulty concentrating, hallucinations, suicidal ideation, tactile hallucinations or visual hallucinations Endocrine Endocrinology: Denies none, cold intolerance, excessive sweating, fatigue or heat intolerance Hematologic/Lymphatic Hematologic/Lymphatic: Reports none; Denies anemia, easy bleeding or easy bruising Allergic/Immunologic Allergic/Immunologic ED: Denies as per HPI, none, lip swelling, mouth swelling, throat swelling, tongue swelling or hives EXAM Physical Exam Const Vital Signs: 06/15/21 16:42 Temperature 97.6 F L Temperature Source Temporal Pulse Rate 104 H Respiratory Rate 18 Blood Pressure 138/83 H Blood Pressure Mean 101 Pulse Ox 99 Oxygen Delivery Method Room Air Positive well nourished and well developed General Appearance ED: well developed and NAD HEENT Reports TM's clear and moist mucous membranes normocephalic and atraumatic; Negative for trauma or tenderness Tympanic Membrane ED: Yes TM's clear Eyes PERRL and EOMs intact bilaterally General Eye ED: Negative for pale conjunctiva or scleral icterus Neck no lymphadenopathy, supple and no JVD General: Negative for tenderness Chest Wall inspection of chest normal and palpation of chest normal Chest: Negative for tenderness Resp normal respiratory effort and clear to auscultation bilaterally Effort and Inspection: Negative for respiratory distress or pain with movement Auscultation: Negative for rhonchi, wheezes or diminished lung sounds Cardio regular rate, regular rhythm, S1 normal heart sound, S2 normal heart sound and no murmurs Peripheral Pulses: pulses 2+ throughout GI normal to inspection, nondistended, normoactive bowel sounds, soft to palpation, non-tender, non-distended and no masses Back/Spine no CVA tenderness Back/Spine Narrative: Patient has tenderness palpation over lumbar spine and lumbar paraspinal musculature on the left. Patient has negative straight leg raise bilaterally. Deep tendon reflexes are plus 2 out of 4 bilaterally at the patella and Achilles. Patient has normal L5 extension bilaterally. Patient has normal sensation to light touch. Extremity normal to inspection General Extremety ED: Negative for edema General Extremity: Negative for edema Neuro oriented x3, CN's II-XII intact bilaterally, no sensory deficits noted and gait normal Sensorium / Orientation: awake, alert, oriented to person, oriented to place and oriented to time Motor Exam: strength 5/5 throughout and strength abnormal Psych mental status grossly normal Skin no rashes or lesions noted and no wounds MDM MDM MDM Narrative Medical decision making narrative: Patient was medicated with morphine, Zofran, and Norflex IM. At this point I will feel any imaging is indicated as she has had no trauma. I will feel she needs an emergent MRI as there are no red flag symptoms of cauda equina. Patient will be given a referral to Dr. Verdin for follow-up as she does not want to follow up again with her [facility] that did the initial surgery. Patient understands she may need further imaging such as MRI if her symptoms persist or worsen. Patient will be given a prescription for [place], Flexeril, and Medrol Dosepak. Discharge Plan Triage Chief Complaint: Back ED Provider: Senait Laurent Dx/Rx/DC Orders Clinical Impression: Acute left-sided back pain with sciatica Instructions: ED Sciatica Prescriptions: New cyclobenzaprine [cyclobenzaprine] 10 MG tablet 10 mg PO TID PRN (Reason: Muscle Spasm) Qty: 20 RF: 0 hydrocodone-acetaminophen [hydrocodone-acetaminophen] 1 TABLET tablet 1 tab PO Q4H PRN PRN (Reason: Pain) 3 Days Qty: 15 RF: 0 methylprednisolone [Medrol (Diony)] 4 mg tablets,dose pack 4 mg PO DAILY Qty: 21 RF: 0 No Action atorvastatin 10 MG tablet 10 mg PO QHS RF: 0 levothyroxine 25 MCG tablet 25 mcg PO DAILY RF: 0 metformin 1,000 MG tablet 1,000 mg PO BID RF: 0 albuterol sulfate [ProAir HFA] 1 PUFF inhaler 2 puff inhalation Q4H PRN PRN (Reason: shortness of breath) RF: 0 lamotrigine [Lamictal] 25 MG tablet 150 mg PO DAILY RF: 0 insulin glargine 100 UNIT/ML insulin pen 14 unit SQ BREAKFAST RF: 0 buspirone 10 mg tablet 10 mg PO BID RF: 0 trazodone 300 mg tablet 300 mg PO QHS RF: 0 vitamin X35-shmpl acid 1-0.8 mg Tablet 1 tab PO DAILY RF: 0 carbamazepine 300 mg Capsule, Er Multiphase 12 Hr 600 mg PO QHS RF: 0 Atrovent HFA 17 mcg/actuation Hfa Aerosol Inhaler 1 inh INHALATION DAILY RF: 0 alpha lipoic acid 600 mg capsule 600 mg PO DAILY RF: 0 hydrocodone-acetaminophen [hydrocodone-acetaminophen] 1 TABLET tablet 1 tab PO Q4H PRN PRN (Reason: Pain) 2 Days Qty: 10 RF: 0 Primary Care Provider: Beatrice Piedra Referrals: Beatrice Piedra MD [Primary Care Provider] - Mike Verdin DO [STAFF PHYSICIAN] - 3-5 Days Disposition Disposition: Home, Self Care
[2021-06-15] MEDS: Morphine 4 MG/ML Syringe IM (17:55)
[2021-06-15] MEDS: Ondansetron 4 MG/2 ML Vial IM (17:55)
[2021-06-15] MEDS: Orphenadrine 60 MG/2 ML Ampul IM (17:56)
[2021-06-15 18:19] VITALS: PULSE 79; RESP 22; O2SAT 99
--- NOTE | 2021-06-15 18:20 | ED.RN ---
THIS NURSE REVIEWED D/C INSTRUCTIONS WITH PT AND VISITOR. PT VERBALIZED UNDERSTANDING OF INSTRUCTIONS. PT DENIES FURTHER NEEDS OR QUESTIONS AT THIS TIME. PT AMBULATES FROM ROOM ON OWN WITHOUT ASSISTANCE FROM STAFF
== END 2021-06-15 18:21 | disposition home or self-care (01) ==
PROVIDERS: Emergency Provider Emergency Medicine; PCP Internal Medicine
DX: M54.42 Lumbago with sciatica, left side (principal); E11.9 Type 2 diabetes mellitus without complications; I10 Essential (primary) hypertension; E78.5 Hyperlipidemia, unspecified; E03.9 Hypothyroidism, unspecified; J45.909 Unspecified asthma, uncomplicated; M19.90 Unspecified osteoarthritis, unspecified site; G47.30 Sleep apnea, unspecified; E66.9 Obesity, unspecified; F31.9 Bipolar disorder, unspecified; F41.9 Anxiety disorder, unspecified; F17.210 Nicotine dependence, cigarettes, uncomplicated; Z79.4 Long term (current) use of insulin; Z79.52 Long term (current) use of systemic steroids; Z79.890 Hormone replacement therapy; Z79.899 Other long term (current) drug therapy
CPT/HCPCS: 96372; 99282; J2405

== ENCOUNTER 2021-07-13 18:33 | Emergency (ER) | payer MEDICARE, MEDICAID, SELFPAY ==
[2021-07-13 18:33] VITALS: BP 141/89; PULSE 116; RESP 18; TEMP 36.4; O2SAT 97; BMI 40.4
--- NOTE | 2021-07-13 19:19 | EDS_ITS ---
HPI History of Present Illness Chief Complaint: Back Informant: patient Narrative Narrative: 51-year-old female with a history of chronic back pain and sciatica presents to the emergency department with back pain and sciatica. Patient has been seen in the emergency department multiple times for this. She states that she saw Dr. Verdin from spine yesterday and she is to have a MRI in 2 weeks. She notes a prior back surgery but does not remember exactly what all they did. She notes no fever or bowel or bladder dysfunction. No muscle weakness or change in sensation. No IV drug use or chronic steroid use. No red flag symptoms. She states that today she took some Tylenol prescription strength Motrin and a muscle relaxant with no relief of symptoms. She states that the [place] that was prescribed by her family doctor beginning of the month was to last until her appointment. She is a smoker. [facility] Medical History Alcohol use Anxiety Arthritis Asthma Asthma Bipolar disorder Bipolar disorder CPAP (continuous positive airway pressure) dependence Depression Diabetes Diabetes mellitus type 2 in obese Dyslipidemia Endometrial polyp High cholesterol History of stress test Hypertension Hypothyroidism Injury of back Insulin dependent diabetes mellitus Migraine headache Sleep apnea Smoker Thyroid disease Wears glasses Home Medications atorvastatin 10 mg PO QHS 02/27/16 [History Last Taken 09/04/18 11:00] levothyroxine 25 mcg PO DAILY 02/27/16 [History Last Taken 01/28/21 08:00] albuterol sulfate [ProAir HFA] 2 puff INHALATION Q4H PRN PRN 03/23/18 [History Last Taken 08/29/18 15:00] metformin 1,000 mg PO BID 03/23/18 [History Last Taken 09/04/18 22:00] insulin glargine 14 unit SQ BREAKFAST 05/10/19 [History Last Taken Unknown] lamotrigine [Lamictal] 150 mg PO DAILY 05/10/19 [History Last Taken 01/28/21 08:00] alpha lipoic acid 600 mg PO DAILY 01/21/21 [History Last Taken Unknown] buspirone 10 mg PO BID 01/21/21 [History Last Taken Unknown] carbamazepine 600 mg PO QHS 01/21/21 [History Last Taken Unknown] ipratropium bromide [Atrovent HFA] 1 inh INHALATION DAILY 01/21/21 [History Last Taken Unknown] trazodone 300 mg PO QHS 01/21/21 [History Last Taken Unknown] vitamin H97-ywdpg acid 1 tab PO DAILY 01/21/21 [History Last Taken Unknown] cyclobenzaprine 10 mg PO TID PRN #20 tablet 06/15/21 [Rx Last Taken Unknown] Allergy/AdvReac Type Severity Reaction Status Date / Time latex Allergy Hives Verified 07/13/21 18:35 hydromorphone [From Dilaudid] AdvReac Vomiting Verified 07/13/21 18:35 Surgical History History of back surgery History of cholecystectomy Hx of appendectomy Previous back surgery Social History Smoking Status: Current every day smoker tobacco type: cigarettes substance use type: does not use ROS ROS ED Constitutional Constitutional ED: Denies chills, fever(s) or weight loss Eyes Eyes: Denies change in vision or diplopia ENT ENT ED: Denies ear pain, rhinorrhea or sore throat Cardiovascular Cardiovascular: Denies chest pain, orthopnea, palpitations or racing heartbeat Respiratory/Chest Respiratory/Chest: Denies cough, dyspnea or orthopnea Gastrointestinal Gastrointestinal: Denies abdominal pain, diarrhea, nausea or vomiting Genitourinary Genitourinary ED: Denies dysuria, hematuria or urinary frequency Musculoskeletal Musculoskeletal: Reports back pain; Denies arthralgias or myalgias Integumentary Denies abscess or rash Neurologic Neurologic: Denies headache(s) or weakness Psychiatric Psychiatric: Denies anxiety, depression, suicidal ideation or suicidal thoughts Endocrine Endocrinology: Denies polydipsia, polyphagia or polyuria Allergic/Immunologic Allergic/Immunologic ED: Denies mouth swelling, tongue swelling or urticaria EXAM Physical Exam Const Vital Signs: 07/13/21 18:33 Temperature 97.6 F L Temperature Source Temporal Pulse Rate 116 H Respiratory Rate 18 Blood Pressure 141/89 H Blood Pressure Mean 106 Pulse Ox 97 Oxygen Delivery Method Room Air Positive well nourished, well developed and obese General Appearance ED: well developed Nutritional Appearance: obese HEENT Reports normocephalic, head/scalp atraumatic, TM's clear and moist mucous membranes Negative for trauma Tympanic Membrane ED: Yes TM's clear Eyes PERRL and EOMs intact bilaterally Neck no lymphadenopathy, supple and no JVD Resp normal respiratory effort and clear to auscultation bilaterally Cardio regular rate, regular rhythm and no murmurs GI normal to inspection, nondistended, normoactive bowel sounds and non-tender Palpation: soft Back/Spine no CVA tenderness and normal ROM Back/Spine Narrative: Diffuse tenderness palpation in the lower back. No tissue texture changes to suggest underlying infection. There is a well-healed surgical scar the patient is laying on her right side. Extremity normal to inspection General Extremety ED: Negative for edema General Extremity: Negative for edema Neuro oriented x3 and CN's II-XII intact bilaterally Sensorium / Orientation: alert Motor Exam: strength 5/5 throughout Deep Tendon Reflexes: Rt Patellar (L4): 2+, Lt Patellar (L4): 2+, Rt Ankle (S1): 2+ and Lt Ankle (S1): 2+ Deep Tendon Reflexes Back: Rt Patellar (L4): 2+, Lt Patellar (L4): 2+, Rt Ankle (S1): 2+ and Lt Ankle (S1): 2+ Psych mental status grossly normal Mood & Affect: Negative for depressed or tearful Skin no rashes or lesions noted and no wounds MDM MDM MDM Narrative Medical decision making narrative: Patient notes that this is a chronic problem for her. And I noted that this is the emergency department and dealing with chronic pain that is not different is not what we are here for. I informed her that I could give her a dose of Toradol and Valium here. As far as anything prescription she needs to talk to her doctors about this. We talked about smoking and back surgery and strongly urged her to stop smoking Discharge Plan Triage Chief Complaint: Back ED Provider: Alhaji Piper Dx/Rx/DC Orders Clinical Impression: Chronic back pain, Chronic sciatica of left side Instructions: ED Chronic Pain Prescriptions: No Action atorvastatin 10 MG tablet 10 mg PO QHS RF: 0 levothyroxine 25 MCG tablet 25 mcg PO DAILY RF: 0 metformin 1,000 MG tablet 1,000 mg PO BID RF: 0 albuterol sulfate [ProAir HFA] 1 PUFF inhaler 2 puff inhalation Q4H PRN PRN (Reason: shortness of breath) RF: 0 lamotrigine [Lamictal] 25 MG tablet 150 mg PO DAILY RF: 0 insulin glargine 100 UNIT/ML insulin pen 14 unit SQ BREAKFAST RF: 0 buspirone 10 mg tablet 10 mg PO BID RF: 0 trazodone 300 mg tablet 300 mg PO QHS RF: 0 vitamin H47-gzdqa acid 1-0.8 mg Tablet 1 tab PO DAILY RF: 0 carbamazepine 300 mg Capsule, Er Multiphase 12 Hr 600 mg PO QHS RF: 0 Atrovent HFA 17 mcg/actuation Hfa Aerosol Inhaler 1 inh INHALATION DAILY RF: 0 alpha lipoic acid 600 mg capsule 600 mg PO DAILY RF: 0 cyclobenzaprine [cyclobenzaprine] 10 MG tablet 10 mg PO TID PRN (Reason: Muscle Spasm) Qty: 20 RF: 0 Primary Care Provider: Beatrice Piedra Referrals: Beatrice Piedra MD [Primary Care Provider] - Disposition Disposition: Home, Self Care
[2021-07-13] MEDS: oxyCODONE 5 MG Tablet PO (19:35)
[2021-07-13] MEDS: Ketorolac 60 MG/2 ML Vial IM (19:35)
[2021-07-13] MEDS: diazePAM 5 MG Tablet PO (19:35)
[2021-07-13 20:01] VITALS: PULSE 108; RESP 15; O2SAT 98
== END 2021-07-13 20:01 | disposition home or self-care (01) ==
LOC: ED 19:32
PROVIDERS: Emergency Provider Emergency Medicine; PCP Internal Medicine; Visit Provider Emergency Medicine
DX: M54.42 Lumbago with sciatica, left side (principal); F31.9 Bipolar disorder, unspecified; Z68.41 Body mass index [BMI] 40.0-44.9, adult; E11.9 Type 2 diabetes mellitus without complications; Z79.4 Long term (current) use of insulin; F17.210 Nicotine dependence, cigarettes, uncomplicated; I10 Essential (primary) hypertension; E78.00 Pure hypercholesterolemia, unspecified; G89.29 Other chronic pain; M19.90 Unspecified osteoarthritis, unspecified site; F41.9 Anxiety disorder, unspecified; J45.909 Unspecified asthma, uncomplicated; E03.9 Hypothyroidism, unspecified; E66.9 Obesity, unspecified; Z79.84 Long term (current) use of oral hypoglycemic drugs; Z79.899 Other long term (current) drug therapy
CPT/HCPCS: 96372; 99283

== ENCOUNTER 2021-08-05 07:49 | Outpatient (CLI) | payer MEDICARE, MEDICAID, SELFPAY ==
--- NOTE | 2021-08-05 07:50 | MRI_ITS ---
History: LOW BACK PAIN, HX PRIOR SURGERY Technique: T1 and T2 MR imaging of the lumbar spine performed with and without contrast enhancement in axial and sagittal planes. 18cc dotarem Findings: Alignment of the lumbar vertebral bodies is normal. Mild multilevel disc space narrowing. Modic type I endplate changes present at L5-S1 associated with contrast enhancement. Surgical changes at the L5 level consistent with laminectomy. Normal vertebral body height. Conus medullaris and cauda equina are normal. Paraspinal soft tissues are normal. T12-L1: Extruded disc causing mild to moderate compression of the thecal sac. L1-2: No disc protrusion. Normal caliber spinal canal and neural foramina. L2-3: No disc protrusion. Normal caliber spinal canal and neural foramina. L3-4: No disc protrusion. Normal caliber spinal canal and neural foramina. L4-5: No disc protrusion. Normal caliber spinal canal . Mild narrowing of the neural foramina related to facet arthropathy. L5-S1: No disc protrusion or compression of the thecal sac. Prominent narrowing of the neural foramina related to facet arthropathy IMPRESSION: Postoperative changes L5. Prominent narrowing of the L5-S1 neural foramina related to facet arthropathy. Disc extrusion at T12-L1 causing moderate spinal stenosis. at 1023 Reported and signed by: Héctor Silver MD Electronically Signed: Héctor Silver MD at 10:21 EST , MRI/Spine Lumbar W/WO Contrast
[2021-08-05 08:46] LABS: CREATININE FINGERSTICK < 0.6 mg/dL (0.55-1.02); EGFR FINGERSTICK > 60.0000 mL/min (>60)
== END 2021-08-05 23:59 | disposition home or self-care (01) ==
PROVIDERS: PCP Internal Medicine; Referring Provider Orthopaedic Surgery; Visit Provider Orthopaedic Surgery
DX: M54.32 Sciatica, left side (principal); M54.50 Low back pain, unspecified; Z98.890 Other specified postprocedural states
CPT/HCPCS: 72158; A9575

== ENCOUNTER 2021-08-12 18:10 | Emergency (ER) | payer MEDICARE, MEDICAID, SELFPAY ==
[2021-08-12 18:10] VITALS: BP 141/100; PULSE 116; RESP 18; TEMP 36.4; O2SAT 99; BMI 38.9
--- NOTE | 2021-08-12 19:31 | ED.VIS.BACK ---
HPI History of Present Illness Chief Complaint: Back Informant: patient Onset/Context/Timing Onset: Month(s) (7-8) Context: Gradual Onset Timing: Continuous Quality: Aching and Throbbing Location: Lumbar, Buttock and Left Leg Current Severity: Severe Maximum Severity: Severe Worsened by: improves with Movement, Ambulation and Bending Relieved by: Remaining Still and Medications Narrative Narrative: Patient having an exacerbation of her chronic low back pain along with left-sided sciatica without any difference in symptoms there, in addition to 3 days worth of a new discomfort that she woke up with in her left upper back. It hurts worse with turning her head/neck, better with remaining still. She denies any injury, fall, chest pain or shortness of breath, or focal upper extremity neurologic symptoms. She has been seen by Dr. Verdin with spine, had an MRI that she thinks is showing a problem in the L5-S1 area, and is scheduled to follow-up within the next couple days for a consultation to go over the results and take next steps. Prior similar symptoms: Yes and With Prior Back Pain [facility] Medical History Alcohol use Anxiety Arthritis Asthma Asthma Bipolar disorder Bipolar disorder CPAP (continuous positive airway pressure) dependence Depression Diabetes Diabetes mellitus type 2 in obese Dyslipidemia Endometrial polyp High cholesterol History of stress test Hypertension Hypothyroidism Injury of back Insulin dependent diabetes mellitus Migraine headache Sleep apnea Smoker Thyroid disease Wears glasses Home Medications atorvastatin 10 mg PO QHS 02/27/16 [History Last Taken 09/04/18 11:00] levothyroxine 25 mcg PO DAILY 02/27/16 [History Last Taken 01/28/21 08:00] albuterol sulfate [ProAir HFA] 2 puff INHALATION Q4H PRN PRN 03/23/18 [History Last Taken 08/29/18 15:00] metformin 1,000 mg PO BID 03/23/18 [History Last Taken 09/04/18 22:00] insulin glargine 14 unit SQ BREAKFAST 05/10/19 [History Last Taken Unknown] lamotrigine [Lamictal] 150 mg PO DAILY 05/10/19 [History Last Taken 01/28/21 08:00] alpha lipoic acid 600 mg PO DAILY 01/21/21 [History Last Taken Unknown] buspirone 10 mg PO BID 01/21/21 [History Last Taken Unknown] carbamazepine 600 mg PO QHS 01/21/21 [History Last Taken Unknown] ipratropium bromide [Atrovent HFA] 1 inh INHALATION DAILY 01/21/21 [History Last Taken Unknown] trazodone 300 mg PO QHS 01/21/21 [History Last Taken Unknown] vitamin V80-pfozw acid 1 tab PO DAILY 01/21/21 [History Last Taken Unknown] cyclobenzaprine 10 mg PO TID PRN #20 tablet 06/15/21 [Rx Last Taken Unknown] Allergy/AdvReac Type Severity Reaction Status Date / Time latex Allergy Hives Verified 08/12/21 18:12 hydromorphone [From Dilaudid] AdvReac Vomiting Verified 08/12/21 18:12 Surgical History History of back surgery History of cholecystectomy Hx of appendectomy Previous back surgery Social History Smoking Status: Current every day smoker tobacco type: cigarettes substance use type: does not use ROS ROS ED Constitutional Constitutional ED: Denies chills or fever(s) Gastrointestinal Gastrointestinal: Denies abdominal pain, constipation, fecal incontinence, nausea or vomiting Genitourinary Genitourinary ED: Reports other Details: no urinary retention ; Denies abdominal discomfort or urinary incontinence Musculoskeletal Musculoskeletal: Reports as per HPI and back pain; Denies neck pain Integumentary Denies rash or wounds Neurologic Neurologic: Denies headache(s), paresthesias or weakness EXAM Physical Exam Const Vital Signs: 08/12/21 18:10 Temperature 97.6 F L Temperature Source Temporal Pulse Rate 116 H Respiratory Rate 18 Blood Pressure 141/100 H Blood Pressure Mean 113 Pulse Ox 99 Oxygen Delivery Method Room Air Positive well nourished and well developed General Appearance ED: well developed and NAD HEENT Negative for trauma or tenderness Eyes PERRL and EOMs intact bilaterally Neck full ROM and supple GI normal to inspection, nondistended, normoactive bowel sounds, soft to palpation and non-tender Back/Spine normal to inspection Thoracic Spine / Upper Back: paraspinal muscle tenderness left (In rhomboids and up into cervical portion of trapezius. No bony tenderness.) Lumbar Spine / Lower Back: ROM limited and straight leg raise negative bilaterally Extremity normal to inspection, full ROM and no pedal edema Neuro oriented x3 and no sensory deficits noted Sensorium / Orientation: alert Motor Exam: strength 5/5 throughout and clonus absent Deep Tendon Reflexes: Rt Patellar (L4): 2+, Lt Patellar (L4): 2+, Rt Ankle (S1): 2+ and Lt Ankle (S1): 2+ Deep Tendon Reflexes Back: Rt Patellar (L4): 2+, Lt Patellar (L4): 2+, Rt Ankle (S1): 2+ and Lt Ankle (S1): 2+ Plantar Reflex: Downgoing: bilateral Psych mental status grossly normal and thought process normal Skin no rashes or lesions noted and no wounds MDM MDM MDM Narrative Medical decision making narrative: Patient does not have bowel or bladder dysfunction or signs/symptoms of cauda equina syndrome. She will be treated with medications here, she is reassured that her upper back/neck discomfort is muscular, the medicine should help that too, and she is advised to follow-up. Discharge Plan Triage Chief Complaint: Back ED Provider: Harvey Lucero Dx/Rx/DC Orders Clinical Impression: Acute exacerbation of chronic low back pain, Strain of left trapezius muscle Instructions: ED Back Pain (Acute or Chronic) Prescriptions: No Action atorvastatin 10 MG tablet 10 mg PO QHS RF: 0 levothyroxine 25 MCG tablet 25 mcg PO DAILY RF: 0 metformin 1,000 MG tablet 1,000 mg PO BID RF: 0 albuterol sulfate [ProAir HFA] 1 PUFF inhaler 2 puff inhalation Q4H PRN PRN (Reason: shortness of breath) RF: 0 lamotrigine [Lamictal] 25 MG tablet 150 mg PO DAILY RF: 0 insulin glargine 100 UNIT/ML insulin pen 14 unit SQ BREAKFAST RF: 0 buspirone 10 mg tablet 10 mg PO BID RF: 0 trazodone 300 mg tablet 300 mg PO QHS RF: 0 vitamin J19-dflvm acid 1-0.8 mg Tablet 1 tab PO DAILY RF: 0 carbamazepine 300 mg Capsule, Er Multiphase 12 Hr 600 mg PO QHS RF: 0 Atrovent HFA 17 mcg/actuation Hfa Aerosol Inhaler 1 inh INHALATION DAILY RF: 0 alpha lipoic acid 600 mg capsule 600 mg PO DAILY RF: 0 cyclobenzaprine [cyclobenzaprine] 10 MG tablet 10 mg PO TID PRN (Reason: Muscle Spasm) Qty: 20 RF: 0 Primary Care Provider: Beatrice Piedra Referrals: Beatrice Piedra MD [Primary Care Provider] - Mike Verdin DO [STAFF PHYSICIAN] - [place] appointment Disposition Disposition: Home, Self Care
[2021-08-12] MEDS: Ondansetron ODT 4 MG Tablet 8 MG PO (19:37)
[2021-08-12] MEDS: Morphine 4 MG/ML Syringe IM (19:39)
[2021-08-12] MEDS: Ketorolac 30 MG/ML Syringe IM (19:39)
[2021-08-12] MEDS: Orphenadrine 60 MG/2 ML Ampul IM (19:40)
== END 2021-08-12 19:59 | disposition home or self-care (01) ==
PROVIDERS: Emergency Provider Emergency Medicine; PCP Internal Medicine; Visit Provider Emergency Medicine
DX: S29.012A Strain of muscle and tendon of back wall of thorax, initial encounter (principal); F17.210 Nicotine dependence, cigarettes, uncomplicated; G47.30 Sleep apnea, unspecified; M54.50 Low back pain, unspecified; G89.29 Other chronic pain; X58.XXXA Exposure to other specified factors, initial encounter
CPT/HCPCS: 96372; 99283

== ENCOUNTER 2021-08-31 21:24 | Emergency (ER) | payer MEDICARE, MEDICAID, SELFPAY ==
[2021-08-31 21:24] VITALS: BP 146/81; PULSE 102; RESP 18; TEMP 35.8; O2SAT 98
[2021-08-31 21:25] VITALS: BP 146/81; PULSE 100; RESP 18; TEMP 35.8; O2SAT 98; BMI 41.8
--- NOTE | 2021-08-31 21:37 | EDS_ITS ---
HPI History of Present Illness Chief Complaint: Hyperglycemia Informant: patient Onset/Context/Timing Onset: Today Narrative Narrative: Patient presents with noted elevated blood sugar. Her blood sugars tonight were running 407 at home. She states she normally runs between 150 and 180. She does report increased urination. She denies recent URI symptoms. No recent changes to her medications or diet. [facility] Medical History Alcohol use Anxiety Arthritis Asthma Bipolar disorder CPAP (continuous positive airway pressure) dependence Depression Diabetes mellitus type 2 in obese Endometrial polyp High cholesterol History of stress test Hypertension Hypothyroidism Injury of back Migraine headache Sleep apnea Smoker Wears glasses Home Medications atorvastatin 10 mg PO QHS 02/27/16 [History Last Taken 09/04/18 11:00] levothyroxine 25 mcg PO DAILY 02/27/16 [History Last Taken 01/28/21 08:00] albuterol sulfate [ProAir HFA] 2 puff INHALATION Q4H PRN PRN 03/23/18 [History Last Taken 08/29/18 15:00] metformin 1,000 mg PO BID 03/23/18 [History Last Taken 09/04/18 22:00] insulin glargine 14 unit SQ BREAKFAST 05/10/19 [History Last Taken Unknown] lamotrigine [Lamictal] 150 mg PO DAILY 05/10/19 [History Last Taken 01/28/21 08:00] alpha lipoic acid 600 mg PO DAILY 01/21/21 [History Last Taken Unknown] buspirone 10 mg PO BID 01/21/21 [History Last Taken Unknown] carbamazepine 600 mg PO QHS 01/21/21 [History Last Taken Unknown] ipratropium bromide [Atrovent HFA] 1 inh INHALATION DAILY 01/21/21 [History Last Taken Unknown] trazodone 300 mg PO QHS 01/21/21 [History Last Taken Unknown] vitamin F78-wedml acid 1 tab PO DAILY 01/21/21 [History Last Taken Unknown] cyclobenzaprine 10 mg PO TID PRN #20 tablet 06/15/21 [Rx Last Taken Unknown] Allergy/AdvReac Type Severity Reaction Status Date / Time latex Allergy Hives Verified 08/16/21 10:03 hydromorphone [From Dilaudid] AdvReac Vomiting Verified 08/16/21 10:03 Surgical History History of back surgery History of cholecystectomy Hx of appendectomy Previous back surgery Social History Smoking Status: Current every day smoker tobacco type: cigarettes substance use type: does not use ROS ROS ED Constitutional Constitutional ED: Denies chills or fever(s) Eyes Eyes: Denies change in vision ENT ENT ED: Denies sore throat Cardiovascular Cardiovascular: Denies chest pain Respiratory/Chest Respiratory/Chest: Denies cough or dyspnea Gastrointestinal Gastrointestinal: Denies abdominal pain, diarrhea, nausea or vomiting Genitourinary Genitourinary ED: Reports urinary frequency; Denies dysuria Musculoskeletal Musculoskeletal: Denies back pain Integumentary Denies rash Neurologic Neurologic: Denies headache(s) or weakness Allergic/Immunologic Allergic/Immunologic ED: Denies urticaria EXAM Physical Exam Const Vital Signs: 08/31/21 21:24 08/31/21 21:25 08/31/21 22:36 Temperature 96.4 F L 96.4 F L Temperature Source Temporal Temporal Pulse Rate 102 H 100 Respiratory Rate 18 18 Respiratory Pattern Normal Blood Pressure 146/81 H 146/81 H Blood Pressure Mean 102 102 Pulse Ox 98 98 Oxygen Delivery Method Room Air Room Air Positive well nourished and well developed General Appearance ED: well developed HEENT Reports moist mucous membranes Eyes PERRL and EOMs intact bilaterally Neck supple Chest Wall inspection of chest normal and palpation of chest normal Resp normal respiratory effort and clear to auscultation bilaterally Cardio regular rate and regular rhythm GI normal to inspection, nondistended, normoactive bowel sounds and non-tender Palpation: soft Extremity normal to inspection Neuro oriented x3 Sensorium / Orientation: alert Psych mental status grossly normal Skin no rashes or lesions noted MDM MDM MDM Narrative Medical decision making narrative: Patient given a liter IV fluids. Lab work an d urinalysis obtained. Lab Data Labs: Laboratory Results - last 24 hr 08/31/21 08/31/21 08/31/21 22:05 22:05 22:05 WBC 9.7 RBC 4.96 Hgb 14.8 Hct 43.4 MCV 87.5 MCH 29.8 MCHC 34.1 RDW Std Deviation 42.6 RDW Coeff of Lore 13.2 Plt Count 193 MPV 10.0 Immature Gran % (Auto) 0.500 Neut % (Auto) 53.5 Lymph % (Auto) 36.7 [place] % (Auto) 7.3 Eos % (Auto) 1.5 Baso % (Auto) 0.5 Absolute Neuts (auto) 5.2 Absolute Lymphs (auto) 3.56 Nucleated RBC % 0 Sodium 139 Potassium 4.0 Chloride 105 Carbon Dioxide 28.0 Anion Gap 6 BUN 11 Creatinine 0.82 Estim Creat Clear Calc 58.30 Est GFR (MDRD) Af Amer 95 Est GFR (MDRD) Non-Af 78 BUN/Creatinine Ratio 13.4 Glucose 341 H Calcium 9.1 Urine Color Yellow Urine Clarity Clear Urine pH 7.0 Ur Specific [place] 1.010 Urine Protein Negative Urine Glucose (UA) 1000 H Urine Ketones Negative Urine Occult Blood Negative Urine Nitrite Negative Urine Bilirubin Negative Urine Urobilinogen Normal Ur Leukocyte Esterase Negative Urine RBC 0 SEEN Urine WBC 0 SEEN Ur Squamous Epith Cells 0 SEEN Urine Bacteria 0 SEEN Urine Mucus 0 SEEN Treatment and Re-Evaluation Narrative: Lab work largely unremarkable. Glucose is 341. Urinalysis does reveal glucose but no sign of infection. After 1 L IV fluid patient's blood sugar is 293. Patient be discharged home. She is to take her evening Metformin and keep a close eye on her blood sugars tomorrow. Discharge Plan Triage Chief Complaint: Hyperglycemia ED Provider: Lissette Goodwin Dx/Rx/DC Orders Clinical Impression: Hyperglycemia Instructions: ED Diabetic Hyperglycemia Prescriptions: No Action atorvastatin 10 MG tablet 10 mg PO QHS RF: 0 levothyroxine 25 MCG tablet 25 mcg PO DAILY RF: 0 metformin 1,000 MG tablet 1,000 mg PO BID RF: 0 albuterol sulfate [ProAir HFA] 1 PUFF inhaler 2 puff inhalation Q4H PRN PRN (Reason: shortness of breath) RF: 0 lamotrigine [Lamictal] 25 MG tablet 150 mg PO DAILY RF: 0 insulin glargine 100 UNIT/ML insulin pen 14 unit SQ BREAKFAST RF: 0 buspirone 10 mg tablet 10 mg PO BID RF: 0 trazodone 300 mg tablet 300 mg PO QHS RF: 0 vitamin Y03-jxlal acid 1-0.8 mg Tablet 1 tab PO DAILY RF: 0 carbamazepine 300 mg Capsule, Er Multiphase 12 Hr 600 mg PO QHS RF: 0 Atrovent HFA 17 mcg/actuation Hfa Aerosol Inhaler 1 inh INHALATION DAILY RF: 0 alpha lipoic acid 600 mg capsule 600 mg PO DAILY RF: 0 cyclobenzaprine [cyclobenzaprine] 10 MG tablet 10 mg PO TID PRN (Reason: Muscle Spasm) Qty: 20 RF: 0 Primary Care Provider: Beatrice Piedra Referrals: Beatrice Piedra MD [Primary Care Provider] - 1 Week if not improving Disposition Disposition: Home, Self Care
[2021-08-31] MEDS: 0.9% Normal Saline 1,000 ML 1000 ML IV (22:03)
[2021-08-31 22:13] LABS: Bacteria 0 SEEN /hpf (None Seen); Mucous, Urine 0 SEEN /hpf (<or=2+); Red Blood Cells-Urine 0 SEEN /hpf (0-5); Squamous Epithelial Cells - UA 0 SEEN /hpf (5-10); White Blood Cells 0 SEEN /hpf (0-5)
[2021-08-31 22:15] LABS: Absolute Lymphocyte Count 3.56 X10^3/uL (0.83-4.51); Absolute Neutrophil Count 5.2 X10^3/uL (2.0-7.7); Basophil# 0.05 X10^3/uL; Basophil% 0.5 % (0-1); Eosinophil# 0.15 X10^3/uL; Eosinophils% 1.5 % (0-5); Hematocrit 43.4 % (37-47); Hemoglobin 14.8 g/dL (12.0-15.0); Lymphocyte # 3.56 X10^3/ul (0.83-4.51); Lymphocyte % 36.7 % (19-41); Mean Corp Hgb Conc 34.1 g/dL (32-36); Mean Corpuscular Hgb 29.8 pg (27.0-32.0); Mean Corpuscular Volume 87.5 fL (81-99); Monocyte# 0.71 X10^3/uL; Monocyte% 7.3 % (0-10); NRBC Flagged by Analyzer 0 % (0-5); Neutrophil # 5.19 X10^3/uL (2.7-7.7); Neutrophil % 53.5 % (47-70); Platelet Count 193 K/mm3 (150-450); RBC Distribution Width CV 13.2 % (11.6-14.6); RBC Distribution Width SD 42.6 fl (35.1-43.9); Red Blood Count 4.96 M/mm3 (4.2-5.4); White Blood Count 9.7 K/mm3 (4.4-11.0)
[2021-08-31 22:44] LABS: Anion Gap 6 (5-15); BUN 11 mg/dL (7-18); BUN/Creat Ratio 13.4 RATIO (10-20); Calcium,Total 9.1 mg/dL (8.5-10.1); Chloride 105 mmol/L (98-107); Creatinine, Serum 0.82 mg/dL (0.55-1.02); EST Glomerular Filtration Rate 78 mL/min (>60); Est Glom Filt Rate - Afr Amer 95 mL/min (>60); Glucose 341 mg/dL (74-106); Sodium Level 139 mmol/L (136-145)
[2021-08-31 22:45] LABS: Color, Urine Yellow (Yellow); Glucose, Dipstick 1000 mg/dl (Normal); Ketone-Dipstick Negative (Negative); Leukocyte Esterase-Dipstick Negative /ul (Negative); Nitrite-Dipstick Negative (Negative); Occult Blood-Urine Negative /ul (Negative); Protein-Dipstick Negative (Negative); Urine Bilirubin Dipstick Negative (Negative); Urine Clarity Clear (Clear); Urine Urobilinogen Normal (Normal)
[2021-08-31] MEDS: Acetaminophen 500 MG Tablet 1000 MG PO (23:05)
[2021-08-31 23:11] LABS: Bedside Glucose 293 mg/dL (74-106)
[2021-08-31 23:16] VITALS: BP 137/91; PULSE 85; RESP 16; O2SAT 96
--- NOTE | 2021-09-01 11:47 | CASEMGMT ---
GERALDINE VEGA ED follow-up: Date of ER visit: 08/31/2021 Presenting ER complaint: hyperglycemia GERALDINE VEGA placed call to patient's telephone number listed on demographics and patient answered. GERALDINE VEGA introduced self and role at [facility]. Patient states feeling good today, denies nausea or vomiting. Reports FSBS 228 this morning. Patient encouraged to schedule PCP follow-up appointment and states plans to do so today. Patient instructed to monitor blood sugar closely, keep log of readings and take all medications as directed. Voiced understanding. Patient denies questions, needs or concerns. GERALDINE Forbes CM
== END 2021-08-31 23:17 | disposition home or self-care (01) ==
PROVIDERS: Emergency Provider Emergency Medicine; PCP Internal Medicine; Visit Provider Emergency Medicine
DX: E11.65 Type 2 diabetes mellitus with hyperglycemia (principal); Z79.4 Long term (current) use of insulin; F17.210 Nicotine dependence, cigarettes, uncomplicated; E78.00 Pure hypercholesterolemia, unspecified; G47.30 Sleep apnea, unspecified; J45.909 Unspecified asthma, uncomplicated; F41.9 Anxiety disorder, unspecified; Z79.899 Other long term (current) drug therapy
CPT/HCPCS: 80048; 81001; 82962; 85025; 96360; 99283; J7030

== ENCOUNTER 2021-12-27 20:44 | Emergency (ER) | payer MEDICARE, MEDICAID, SELFPAY ==
[2021-12-27 20:44] VITALS: BP 135/104; PULSE 87; RESP 16; TEMP 36.4; O2SAT 94; BMI 41.0
[2021-12-27 21:13] VITALS: BP 126/82; PULSE 87; RESP 16; O2SAT 95
--- NOTE | 2021-12-27 21:28 | ED.VIS.BACK ---
HPI History of Present Illness Chief Complaint: Back Informant: patient Onset/Context/Timing Onset: Days Context: Gradual Onset Timing: Continuous Quality: Sharp Location: Lumbar Current Severity: Mild Maximum Severity: Moderate Worsened by: improves with Movement Relieved by: Remaining Still Associated Symptoms Associated Symptoms: Radiation to Left Leg; Negative for Numbness, Tingling, Fever, Abdominal Pain, Dysuria, Unable to Ambulate, Unable to Transfer, Urinary Retention, Urinary Incontinence, Constipation or Fecal Incontinence Narrative Narrative: 51-year-old female history of bipolar disorder and back pain. She has had a prior back surgery about 6 years ago. States from time to time she gets sciatica. States 2 to 3 days ago started having recurrent lower back pain radiates to her left buttock. She denies any bowel or bladder incontinence. No fall or trauma. No fever. She has had similar pain before. Prior similar symptoms: Yes Recent Illness/Hospitalization: No PFSH PFSH Medical History Alcohol use Anxiety Arthritis Asthma Bipolar disorder CPAP (continuous positive airway pressure) dependence Depression Diabetes mellitus type 2 in obese Endometrial polyp High cholesterol History of stress test Hypertension Hypothyroidism Injury of back Migraine headache Sleep apnea Smoker Wears glasses Home Medications atorvastatin 10 mg tablet 10 mg PO QHS cholesterol lowering 02/27/16 [History Last Taken 09/04/18 11:00] levothyroxine 25 mcg tablet 25 mcg PO DAILY thyroid 02/27/16 [History Last Taken 01/28/21 08:00] albuterol sulfate 90 mcg/actuation aerosol inhaler (ProAir HFA) 2 puff inhalation Q4H PRN PRN shortness of breath 03/23/18 [History Last Taken 08/29/18 15:00] metformin 1,000 mg tablet 1,000 mg PO BID blood sugar 03/23/18 [History Last Taken 09/04/18 22:00] insulin glargine 100 unit/mL (3 mL) subcutaneous pen 14 unit SQ BREAKFAST 05/10/19 [History Last Taken Unknown] lamotrigine 25 mg tablet (Lamictal) 150 mg PO DAILY 05/10/19 [History Last Taken 01/28/21 08:00] alpha lipoic acid 600 mg capsule 600 mg PO DAILY 01/21/21 [History Last Taken Unknown] buspirone 10 mg tablet 10 mg PO BID 01/21/21 [History Last Taken Unknown] carbamazepine 300 mg capsule,extended release [id number] 600 mg PO QHS 01/21/21 [History Last Taken Unknown] ipratropium bromide 17 mcg/actuation HFA aerosol inhaler (Atrovent HFA) 1 inh inhalation DAILY 01/21/21 [History Last Taken Unknown] trazodone 300 mg tablet 300 mg PO QHS 01/21/21 [History Last Taken Unknown] vitamin B12 1 mg-folic acid 0.8 mg tablet 1 tab PO DAILY 01/21/21 [History Last Taken Unknown] cyclobenzaprine 10 mg tablet 10 mg PO TID PRN Muscle Spasm #20 TABLETS 06/15/21 [Rx Last Taken Unknown] Allergy/AdvReac Type Severity Reaction Status Date / Time latex Allergy Hives Verified 08/16/21 10:03 hydromorphone [From Dilaudid] AdvReac Vomiting Verified 08/16/21 10:03 Surgical History History of back surgery History of cholecystectomy Hx of appendectomy Previous back surgery Social History Smoking Status: Current every day smoker tobacco type: cigarettes substance use type: does not use ROS ROS ED ROS Narrative Back pain. No recent illness. Review of Systems ROS Unobtainable: Denies due to encephalopathy Constitutional Constitutional ED: Denies chills Eyes Eyes: Denies blurry vision ENT ENT ED: Denies ear pain Cardiovascular Cardiovascular: Denies chest pain Respiratory/Chest Respiratory/Chest: Denies dyspnea Gastrointestinal Gastrointestinal: Denies abdominal pain Genitourinary Genitourinary ED: Denies dysuria Musculoskeletal Musculoskeletal: Reports back pain; Denies arthralgias Integumentary Denies abscess Neurologic Neurologic: Denies headache(s) Psychiatric Psychiatric: Denies anxiety Endocrine Endocrinology: Denies cold intolerance Hematologic/Lymphatic Hematologic/Lymphatic: Denies easy bleeding Allergic/Immunologic Allergic/Immunologic ED: Denies mouth swelling EXAM Physical Exam Narrative Exam Narrative: Middle-aged female no acute distress. Vital signs stable afebrile. HEENT exam unremarkable. Lungs are clear. Heart regular rhythm. Abdomen soft nontender normal bowel sounds no peritoneal signs. Patient moving all 4 extremities. 5 out of 5 interpretive naturalist strength. Dorsi plantarflexion intact. No cauda equina. No saddle anesthesia. Negative straight leg raise bilaterally. Back spine nontender tenderness over the left SI joint but negative straight leg raise. No focal motor deficits. No numbness. No cauda equina. No saddle anesthesia. Const Vital Signs: 12/27/21 20:44 12/27/21 21:13 Temperature 97.5 F L Temperature Source Temporal Pulse Rate 87 87 Respiratory Rate 16 16 Blood Pressure 135/104 H 126/82 H Blood Pressure Mean 114 96 Pulse Ox 94 95 Oxygen Delivery Method Room Air Room Air Positive well nourished, well developed and obese; Negative for cachectic, contractures or unkempt General Appearance ED: well developed; Negative for unkempt, cachectic, contractures or pallor Nutritional Appearance: obese; Negative for cachectic HEENT Reports moist mucous membranes; Denies dry mucous membranes Negative for trauma Mouth ED: No dry mucous membranes Mouth: No dry mucous membranes Eyes PERRL and EOMs intact bilaterally General Eye ED: Negative for pale conjunctiva or scleral icterus Neck no lymphadenopathy, supple and no JVD General: Negative for tenderness Resp normal respiratory effort and clear to auscultation bilaterally Effort and Inspection: Negative for pain with movement Auscultation: Negative for rales, rhonchi, wheezes or diminished lung sounds Cardio regular rate, regular rhythm, S1 normal heart sound, S2 normal heart sound and no murmurs Palpation: Negative for palpable S3 Rate: Negative for bradycardia Rhythm: Negative for abnormal rhythm GI normal to inspection, nondistended, normoactive bowel sounds, soft to palpation, non-tender, non-distended and no masses Inspection: Negative for abdominal distention Back/Spine normal to inspection and no thoracic nor lumbar tenderness Back/Spine Narrative: Denies of the left SI joint. Negative straight leg raise. Negative cauda equina. Patient is moving easily. He has normal motor strength and sensation in both lower extremities. Extremity normal to inspection and no clubbing, cyanosis or edema General Extremety ED: Negative for edema General Extremity: Negative for edema Neuro oriented x3 Sensorium / Orientation: alert; Negative for confused, lethargic or stuporous Motor Exam: strength 5/5 throughout Psych mental status grossly normal Appearance: Negative for unkempt Attitude: No agitated Mood & Affect: Negative for depressed, sad or tearful Skin no rashes or lesions noted and no wounds General Skin Exam: Negative for jaundice or pallor Lesions: No lesion noted Rashes: No rashes noted Trauma: Negative for abrasion Wounds: Negative for wounds noted MDM MDM MDM Narrative Medical decision making narrative: Patient with acute on chronic low back pain. Is moving easily. He has normal motor strength and sensation. No cauda equina. She has reproducible left SI joint tenderness. But negative straight leg raise on the left and the right. She is already taken Aleve. She will be given 2 [place] here. Aleve at home. Ice. Follow-up. Discharge Plan Triage Chief Complaint: Back ED Provider: Vernon Gallardo Dx/Rx/DC Orders Clinical Impression: Sciatica, History of bipolar disorder Instructions: ED Sciatica Prescriptions: No Action atorvastatin 10 MG tablet 10 mg PO QHS levothyroxine 25 MCG tablet 25 mcg PO DAILY metformin 1,000 MG tablet 1,000 mg PO BID albuterol sulfate [ProAir HFA] 1 PUFF inhaler 2 puff inhalation Q4H PRN PRN (Reason: shortness of breath) lamotrigine [Lamictal] 25 MG tablet 150 mg PO DAILY Label Comments: TAKE 1 TABLET BY MOUTH EVERY DAY X2WKS THEN INCREASE TO 2TABS DAILY THEREAFTER insulin glargine 100 UNIT/ML insulin pen 14 unit SQ BREAKFAST buspirone 10 mg tablet 10 mg PO BID Label Comments: TAKE 1 TABLET BY MOUTH TWICE A DAY trazodone 300 mg tablet 300 mg PO QHS Label Comments: TAKE 1 TABLET BY MOUTH EVERY DAY AT BEDTIME NEEDED vitamin [id number] acid 1-0.8 mg Tablet 1 tab PO DAILY carbamazepine 300 mg Capsule, Er Multiphase 12 Hr 600 mg PO QHS Atrovent HFA 17 mcg/actuation Hfa Aerosol Inhaler 1 inh INHALATION DAILY alpha lipoic acid 600 mg capsule 600 mg PO DAILY Label Comments: TAKE 1 CAPSULE BY MOUTH EVERY DAY cyclobenzaprine [cyclobenzaprine] 10 MG tablet 10 mg PO TID PRN (Reason: Muscle Spasm) Qty: 20 0RF Primary Care Provider: Beatrice Piedra Referrals: Beatrice Piedra MD [Primary Care Provider] - 1 Week if not improving Activity Restrictions/Additional Instructions: Continue the Aleve twice a day for your pain. Ice to your left SI joint. Follow-up with your doctor if not improving. Disposition Disposition: Home, Self Care
[2021-12-27] MEDS: HYDROcodone Bitartrate/Apap 5/325 Tablet PO (21:39)
== END 2021-12-27 21:42 | disposition home or self-care (01) ==
PROVIDERS: Emergency Provider Emergency Medicine; PCP Internal Medicine; Visit Provider Emergency Medicine
DX: M54.40 Lumbago with sciatica, unspecified side (principal); F31.9 Bipolar disorder, unspecified; E11.9 Type 2 diabetes mellitus without complications; Z79.4 Long term (current) use of insulin; F17.210 Nicotine dependence, cigarettes, uncomplicated; E78.00 Pure hypercholesterolemia, unspecified; G47.30 Sleep apnea, unspecified; E66.9 Obesity, unspecified; E03.9 Hypothyroidism, unspecified; J45.909 Unspecified asthma, uncomplicated; F41.9 Anxiety disorder, unspecified; Z79.899 Other long term (current) drug therapy; Z79.84 Long term (current) use of oral hypoglycemic drugs
CPT/HCPCS: 99282

== ENCOUNTER 2023-01-19 08:00 | Emergency (ER) | payer MEDICARE, MEDICAID, SELFPAY ==
[2023-01-19 08:02] VITALS: BP 143/95; PULSE 93; RESP 14; TEMP 36.3; O2SAT 100; BMI 41.0
[2023-01-19] MEDS: Acetaminophen 500 MG Tablet PO (08:19)
--- NOTE | 2023-01-19 08:28 | RAD_ITS ---
STUDY: X-RAY - RIGHT ELBOW REASON FOR EXAM: Female, 52 years old. Injury/Pain TECHNIQUE: 4 view(s) of the elbow. COMPARISON: None. FINDINGS: Normal visualized humerus, radius and ulna. Normal radiocapitellar and ulnotrochlear articulations. The soft tissue structures are unremarkable. RAD/Elbow min 3 Views IMPRESSION: Normal x-ray examination of the elbow. Electronically Signed: Wayne Cooper MD at 8:40 EDT ,
--- NOTE | 2023-01-19 09:46 | EDS_ITS ---
HPI HPI - Fall History of Present Illness Chief Complaint: Fall Detail of Chief Complaint: Chemical fall with injury to right elbow and right knee Informant: patient Occured/Mechanism Occurred: Hours Mechanism/Context: Yes same level fall and Yes trip Usually ambulates: Without assistance Pain/Injury Location: Right elbow and right knee Current Severity: Mild Maximum Severity: Moderate Worsened by: Movement of right upper extremity Relieved by: Remaining Associated Symptoms Associated Symptoms: Negative for Parasthesias, Weakness, Loss of function, Inability to ambulate, Loss of consciousness or Amnesia Narrative Narrative: Patient is a 52-year-old woman who had a fall. She presents with injury to her right knee and right elbow. Tetanus is up-to-date. She denies head trauma. Denies loss of conscious. She denies being dazed. She is not on anticoagulant. She denies change in vision. She denies ringing or ears or decreased hearing. She denies neck pain. She denies paresthesia, anesthesia motors. She states the scars on her right forearm are due to complications from infected spider bite patient has had prior surgery right knee. She does not know what was done. She is able to bear weight. Tetanus Immunization: 5-10 years Prior similar symptoms: No Recent Illness/Hospitalization: No PFSH PFSH Medical History Alcohol use Anxiety Arthritis Asthma Bipolar disorder CPAP (continuous positive airway pressure) dependence Depression Diabetes mellitus type 2 in obese Endometrial polyp High cholesterol History of stress test Hypertension Hypothyroidism Injury of back Migraine headache Sleep apnea Smoker Wears glasses Home Medications atorvastatin 10 mg tablet 10 mg PO QHS cholesterol lowering 02/27/16 [History Last Taken 09/04/18 11:00] levothyroxine 25 mcg tablet 25 mcg PO DAILY thyroid 02/27/16 [History Last Taken 01/28/21 08:00] albuterol sulfate 90 mcg/actuation aerosol inhaler (ProAir HFA) 2 puff inhalation Q4H PRN PRN shortness of breath 03/23/18 [History Last Taken 08/29/18 15:00] metformin 1,000 mg tablet 1,000 mg PO BID blood sugar 03/23/18 [History Last Taken 09/04/18 22:00] insulin glargine 100 unit/mL (3 mL) subcutaneous pen 14 unit SQ BREAKFAST 05/10/19 [History Last Taken Unknown] lamotrigine 25 mg tablet (Lamictal) 150 mg PO DAILY 05/10/19 [History Last Taken 01/28/21 08:00] alpha lipoic acid 600 mg capsule 600 mg PO DAILY 01/21/21 [History Last Taken Unknown] buspirone 10 mg tablet 10 mg PO BID 01/21/21 [History Last Taken Unknown] carbamazepine 300 mg capsule,extended release [id number] 600 mg PO QHS 01/21/21 [History Last Taken Unknown] ipratropium bromide 17 mcg/actuation HFA aerosol inhaler (Atrovent HFA) 1 inh inhalation DAILY 01/21/21 [History Last Taken Unknown] trazodone 300 mg tablet 300 mg PO QHS 01/21/21 [History Last Taken Unknown] vitamin B12 1 mg-folic acid 0.8 mg tablet 1 tab PO DAILY 01/21/21 [History Last Taken Unknown] cyclobenzaprine 10 mg tablet 10 mg PO TID PRN Muscle Spasm #20 TABLETS 06/15/21 [Rx Last Taken Unknown] Allergy/AdvReac Type Severity Reaction Status Date / Time latex Allergy Hives Verified 01/19/23 08:02 hydromorphone [From Dilaudid] AdvReac Vomiting Verified 01/19/23 08:02 Surgical History History of back surgery History of cholecystectomy Hx of appendectomy Previous back surgery Social History Smoking Status: Current every day smoker tobacco type: cigarettes substance use type: does not use ROS ROS ED Constitutional Constitutional ED: Denies chills, fever(s) or subjective Eyes Eyes: Denies blurry vision, change in vision or diplopia Cardiovascular Cardiovascular: Denies chest pain or palpitations Respiratory/Chest Respiratory/Chest: Denies dyspnea Gastrointestinal Gastrointestinal: Denies nausea or vomiting Integumentary Reports other Details: Abrasion right knee and right forearm Neurologic Neurologic: Denies headache(s), paresthesias or weakness Psychiatric Psychiatric: Denies anxiety or depression Hematologic/Lymphatic Hematologic/Lymphatic: Denies easy bleeding or easy bruising EXAM Physical Exam Const Vital Signs: 01/19/23 08:02 Temperature 97.4 F L Temperature Source Temporal Pulse Rate 93 Respiratory Rate 14 Blood Pressure 143/95 H Blood Pressure Mean 111 Pulse Ox 100 Positive well nourished, well developed and obese General Appearance ED: well developed and NAD Nutritional Appearance: obese HEENT Reports normocephalic and TM's normal bilaterally HEENT Narrative: Is no septal deviation hematoma. atraumatic Eyes PERRL and EOMs intact bilaterally General Eye ED: Negative for pale conjunctiva or scleral icterus Neck full ROM, no lymphadenopathy and supple Resp normal respiratory effort, no retractions and clear to auscultation bilaterally Cardio regular rate, regular rhythm, S1 normal heart sound, S2 normal heart sound and no murmurs Back/Spine no CVA tenderness Cervical Spine: Negative for cervical spine tenderness Lumbar Spine / Lower Back: Negative for lumbar spinal tenderness Extremity Extremity Narrative: He has an abrasion dorsal radial proximal right forearm. There is pain ovation over the lateral and medial epicondyle. There is pain ovation of olecranon process. There is no pain the patient over the radial head. Axillary, median, radial and ulnar function intact. Scars noted due to complication from spider bite requiring extensive incision and drainage. There is an abrasion noted over the right patella. The patella is not ballotable. Is no effusion. There is no joint line tenderness. There is no laxity varus valgus stress testing. Bev's test is negative. Modified [place]'s test is negative. DP pulses palpable. She is able to extend to 180 degrees and flex to 90 degrees. There is no fullness or pain in the popliteal fossa. Neuro oriented x3, CN's II-XII intact bilaterally and moves all extremities Psych mental status grossly normal Skin Trauma: abrasion MDM MDM MDM Narrative Medical decision making narrative: X-ray of the elbow was obtained to evaluate for contusion versus fracture. Based on the [place] knee rule imaging of the knee is not required. Tetanus is up-to-date. Radiography Chest X-Ray - ED: Read by ED Physician (3 View x-ray of the elbow reveals no evidence of fracture. There is no anterior posterior fat pad. There is no foreign body noted. This was implanted reviewed and interpreted by me.) Diagnostic Testing: Clinical Impression(s) from Imaging Studies Elbow X-Ray 01/19/23 08:28 IMPRESSION: Normal x-ray examination of the elbow. Electronically Signed: Wayne Cooper MD at 8:40 EDT , Discharge Plan Triage Chief Complaint: Fall ED Provider: Mathew Santiago Dx/Rx/DC Orders Clinical Impression: Injury due to fall, Abrasion, right knee, initial encounter, Contusion of right elbow, initial encounter, Abrasion of right forearm, initial encounter, Contusion of right knee, initial encounter Instructions: ED Abrasion, ED Contusion, Elbow, ED Contusion, Lower Extremity Prescriptions: No Action atorvastatin 10 MG tablet 10 mg PO QHS levothyroxine 25 MCG tablet 25 mcg PO DAILY metformin 1,000 MG tablet 1,000 mg PO BID albuterol sulfate [ProAir HFA] 1 PUFF inhaler 2 puff inhalation Q4H PRN PRN (Reason: shortness of breath) lamotrigine [Lamictal] 25 MG tablet 150 mg PO DAILY Patient Comments: TAKE 1 TABLET BY MOUTH EVERY DAY X2WKS THEN INCREASE TO 2TABS DAILY THEREAFTER insulin glargine 100 UNIT/ML insulin pen 14 unit SQ BREAKFAST buspirone 10 mg tablet 10 mg PO BID Patient Comments: TAKE 1 TABLET BY MOUTH TWICE A DAY trazodone 300 mg tablet 300 mg PO QHS Patient Comments: TAKE 1 TABLET BY MOUTH EVERY DAY AT BEDTIME NEEDED vitamin [id number] acid 1-0.8 mg Tablet 1 tab PO DAILY carbamazepine 300 mg Capsule, Er Multiphase 12 Hr 600 mg PO QHS Atrovent HFA 17 mcg/actuation Hfa Aerosol Inhaler 1 inh INHALATION DAILY alpha lipoic acid 600 mg capsule 600 mg PO DAILY Patient Comments: TAKE 1 CAPSULE BY MOUTH EVERY DAY cyclobenzaprine [cyclobenzaprine] 10 MG tablet 10 mg PO TID PRN (Reason: Muscle Spasm) Qty: 20 0RF Primary Care Provider: Beatrice Piedra Referrals: Beatrice Piedra MD [Primary Care Provider] - 1 Week if not improving Activity Restrictions/Additional Instructions: 1. Apply bacitracin ointment to the abrasions 3 times a day for the next 5 days 2. Apply ice to areas of discomfort 6-10 times a day 3. Take Tylenol for pain Disposition Disposition: Home, Self Care
[2023-01-19 10:03] VITALS: BP 123/84; PULSE 78; RESP 16; O2SAT 98
== END 2023-01-19 10:05 | disposition home or self-care (01) ==
PROVIDERS: Emergency Provider Emergency Medicine; PCP Internal Medicine; Visit Provider Emergency Medicine
DX: S80.01XA Contusion of right knee, initial encounter (principal); F31.9 Bipolar disorder, unspecified; E11.9 Type 2 diabetes mellitus without complications; I10 Essential (primary) hypertension; S80.211A Abrasion, right knee, initial encounter; S50.811A Abrasion of right forearm, initial encounter; F17.210 Nicotine dependence, cigarettes, uncomplicated; S50.01XA Contusion of right elbow, initial encounter; E78.00 Pure hypercholesterolemia, unspecified; W18.30XA Fall on same level, unspecified, initial encounter; G47.30 Sleep apnea, unspecified; E03.9 Hypothyroidism, unspecified; Z99.89 Dependence on other enabling machines and devices
CPT/HCPCS: 73080; 99283

== ENCOUNTER → 2023-03-31 | Outpatient (CLI) | payer MEDICARE, MEDICAID, SELFPAY | END | disposition home or self-care (01) | PROVIDERS: PCP Internal Medicine; Visit Provider Internal Medicine | DX: G47.33 Obstructive sleep apnea (adult) (pediatric) (principal); E66.01 Morbid (severe) obesity due to excess calories; Z68.41 Body mass index [BMI] 40.0-44.9, adult; R06.83 Snoring; R40.0 Somnolence | CPT/HCPCS: 95810 ==

== ENCOUNTER 2023-08-05 12:03 | Emergency (ER) | payer MEDICARE, MEDICAID, SELFPAY ==
[2023-08-05 12:05] VITALS: BP 143/89; PULSE 124; RESP 18; TEMP 35.6; O2SAT 100; BMI 42.0
--- NOTE | 2023-08-05 12:17 | EKG12_ITS ---
Test Reason : Blood Pressure : / mmHG Vent. Rate : 096 BPM Atrial Rate : 096 BPM P-R Int : 130 ms QRS Dur : 080 ms QT Int : 338 ms P-R-T Axes : 036 021 003 degrees QTc Int : 427 ms Normal sinus rhythm Normal ECG Confirmed by RUTHIE JORDAN, BRODY ([id number]), publications editor HERVE HOYT ([id number]) on 08/07/2023 10:07:58 AM Referred By: Confirmed By:BRODY HENDRICKS MD
--- NOTE | 2023-08-05 12:39 | ED.RN ---
called pharmacy regarding trulicity. they have the 0.75mg and the 1.5 is back ordered.
[2023-08-05 12:41] LABS: Bedside Glucose 498 mg/dL (74-106)
[2023-08-05] MEDS: 0.9% Normal Saline (1000mL) 1,000 ML 999 ML IV ×2 (12:42→14:35)
[2023-08-05 12:43] LABS: Bacteria 0 SEEN /hpf (None Seen); Mucous, Urine 0 SEEN /hpf (<or=2+); Red Blood Cells-Urine 0 SEEN /hpf (0-5); Squamous Epithelial Cells - UA 0 SEEN /hpf (5-10); White Blood Cells 0 SEEN /hpf (0-5)
--- NOTE | 2023-08-05 12:46 | EDS_ITS ---
HPI History of Present Illness Chief Complaint: Hyperglycemia Narrative Narrative: 53-year-old female presenting with hyperglycemia. She states her blood sugars have been in the 500 range. Patient states that she has not been on her Trulicity for about 3 weeks. She states it is on backorder. 1.5 units daily. Patient is also on metformin and is supposed take at 1000 mg twice daily. She states that when she called her primary care's office to have a medication change she was told to take an extra metformin since she cannot refill her Trulicity. Patient is also on Lantus 14 units in the morning. Patient states she does have symptoms of polyuria and polydipsia. She feels lightheaded. She is nausea at times. No history of DKA. [facility] Medical History Alcohol use Anxiety Arthritis Asthma Bipolar disorder CPAP (continuous positive airway pressure) dependence Depression Diabetes mellitus type 2 in obese Endometrial polyp High cholesterol History of stress test Hypertension Hypothyroidism Injury of back Migraine headache Sleep apnea Smoker Wears glasses Home Medications atorvastatin 10 mg tablet 10 mg PO QHS cholesterol lowering 02/27/16 [History Last Taken 09/04/18 11:00] levothyroxine 25 mcg tablet 25 mcg PO DAILY thyroid 02/27/16 [History Last Taken 01/28/21 08:00] albuterol sulfate 90 mcg/actuation aerosol inhaler (ProAir HFA) 2 puff inhalation Q4H PRN PRN shortness of breath 03/23/18 [History Last Taken 08/29/18 15:00] metformin 1,000 mg tablet 1,000 mg PO BID blood sugar 03/23/18 [History Last Taken 09/04/18 22:00] insulin glargine 100 unit/mL (3 mL) subcutaneous pen 14 unit SQ BREAKFAST 05/10/19 [History Last Taken Unknown] lamotrigine 25 mg tablet (Lamictal) 150 mg PO DAILY 05/10/19 [History Last Taken 01/28/21 08:00] alpha lipoic acid 600 mg capsule 600 mg PO DAILY 01/21/21 [History Last Taken Unknown] buspirone 10 mg tablet 10 mg PO BID 01/21/21 [History Last Taken Unknown] carbamazepine 300 mg capsule,extended release [id number] 600 mg PO QHS 01/21/21 [History Last Taken Unknown] ipratropium bromide 17 mcg/actuation HFA aerosol inhaler (Atrovent HFA) 1 inh inhalation DAILY 01/21/21 [History Last Taken Unknown] trazodone 300 mg tablet 300 mg PO QHS 01/21/21 [History Last Taken Unknown] vitamin B12 1 mg-folic acid 0.8 mg tablet 1 tab PO DAILY 01/21/21 [History Last Taken Unknown] cyclobenzaprine 10 mg tablet 10 mg PO TID PRN Muscle Spasm #20 TABLETS 06/15/21 [Rx Last Taken Unknown] dulaglutide 0.75 mg/0.5 mL subcutaneous pen injector (Trulicity) 1.5 mg subcut QWEEK #2 mL 08/05/23 [Rx Last Taken Unknown] Allergy/AdvReac Type Severity Reaction Status Date / Time latex Allergy Hives Verified 08/05/23 12:04 hydromorphone [From Dilaudid] AdvReac Vomiting Verified 08/05/23 12:04 Surgical History History of back surgery History of cholecystectomy Hx of appendectomy Previous back surgery Social History Smoking Status: Current every day smoker tobacco type: cigarettes substance use type: does not use ROS ROS ED ROS Narrative Dizziness Constitutional Constitutional ED: Denies chills, fever(s) or sweats Eyes Eyes: Denies blurry vision or change in vision ENT ENT ED: Denies ear pain or sore throat Cardiovascular Cardiovascular: Denies chest pain, palpitations or racing heartbeat Respiratory/Chest Respiratory/Chest: Denies cough, dyspnea or sputum Gastrointestinal Gastrointestinal: Reports nausea; Denies abdominal pain, constipation, diarrhea or vomiting Genitourinary Genitourinary ED: Denies dysuria, hematuria or urinary frequency Musculoskeletal Musculoskeletal: Denies arthralgias, myalgias or neck pain Integumentary Denies abscess, Abrasions or rash Neurologic Neurologic: Reports headache(s); Denies paresthesias or weakness Psychiatric Psychiatric: Denies anxiety, depression, suicidal ideation or suicidal thoughts Endocrine Endocrinology: Reports polydipsia, polyphagia and polyuria EXAM Physical Exam Const Vital Signs: 08/05/23 12:05 08/05/23 15:24 Temperature 96.0 F L Temperature Source Temporal Pulse Rate 124 H 81 Respiratory Rate 18 16 Blood Pressure 143/89 H 138/90 H Blood Pressure Mean 107 106 Pulse Ox 100 99 Oxygen Delivery Method Room Air Room Air Positive well nourished and obese General Appearance ED: Negative for pallor Nutritional Appearance: obese HEENT Reports moist mucous membranes Eyes PERRL and EOMs intact bilaterally Resp normal respiratory effort Cardio regular rate and regular rhythm GI normal to inspection, nondistended, normoactive bowel sounds Neuro oriented x3 and CN's II-XII intact bilaterally Sensorium / Orientation: alert Psych mental status grossly normal Skin no rashes or lesions noted General Skin Exam: Negative for jaundice or pallor MDM MDM MDM Narrative Medical decision making narrative: Patient presenting with high blood sugars at home. Differential includes hyperglycemia, ACS, dysrhythmia, DKA, dehydration, anemia, electrolyte abnormalities, UTI. Patient reports that she has not been able to get her medications filled. We are able to call pharmacy and apparently there is a backlog on Trulicity 1.5 mg weekly. Patient unable to get this for the last 3 weeks. She states when she calls the office she is unable to get them to write a prescription because it was a short backlog. Nursing was able to establish that he can get 0.75 mg and 83 mg injection. CBC, CMP within normal limits with exception of a high blood sugar of 5. No anion gap. Analysis negative for infection but does show does 1000 glucose. Acetone negative. Discussed the case with Dr. Raphael Mayer who recommended either giving her the 0.75 mg and have her injecting twice or given her 3 mg. After discussing this with the pharmacy here at [facility] we are unable to adjust the 3 mg injection and this would be too much. The only option at this point is to give the 0.75 mg and give her 2 of these. After discussion we will have the prescription sent to the pharmacy. I spoke with the pharmacist who stated that her insurance covers the treatment at 0.75 mg and she can take 2 of these. She is able to prescribe a 2- week supply. I counseled the patient of this. Patient will need to follow-up with her PCP to ensure prescription refill. She is feeling improved. All questions were answered. Range of motion Impression: 1. Hyperglycemia Lab Data Attestation: I reviewed the patient's lab results. Labs: Laboratory Results - last 24 hr 08/05/23 08/05/23 08/05/23 12:16 12:23 12:38 WBC 6.7 RBC 4.87 Hgb 14.1 Hct 43.3 MCV 88.9 MCH 29.0 MCHC 32.6 RDW Std Deviation 45.2 H RDW Coeff of Lore 13.9 Plt Count 183 MPV 11.2 Immature Gran % (Auto) 0.600 Neut % (Auto) 58.1 Lymph % (Auto) 31.6 Coffee % (Auto) 7.6 Eos % (Auto) 1.5 Baso % (Auto) 0.6 Absolute Neuts (auto) 3.9 Absolute Lymphs (auto) 2.11 Nucleated RBC % 0 Sodium 138 Potassium 3.9 Chloride 104 Carbon Dioxide 28.0 Anion Gap 6 BUN 10 Creatinine 0.92 Estim Creat Clear Calc 74.03 Est GFR (MDRD) Af Amer 82 Est GFR (MDRD) Non-Af 68 BUN/Creatinine Ratio 10.8 Glucose 501 H* Calcium 8.6 Total Bilirubin 0.50 AST 35 ALT 40 Alkaline Phosphatase 95 Troponin I High Sens 7 Total Protein 6.9 Albumin 3.2 Globulin 3.7 Albumin/Globulin Ratio 0.9 Urine Color Yellow Urine Clarity Clear Urine pH 6.0 Ur Specific [place] 1.015 Urine Protein 15 H Urine Glucose (UA) 1000 H Urine Ketones 5 H Urine Occult Blood Negative Urine Nitrite Negative Urine Bilirubin Negative Urine Urobilinogen Normal Ur Leukocyte Esterase Negative Urine RBC 0 SEEN Urine WBC 0 SEEN Ur Squamous Epith Cells 0 SEEN Urine Bacteria 0 SEEN Urine Mucus 0 SEEN Acetone Level NEGATIVE POC Glucose 498 H* Discharge Plan Triage Chief Complaint: Hyperglycemia ED Provider: Sukumar Stanton Dx/Rx/DC Orders Instructions: ED Diabetic Hyperglycemia Prescriptions: New Trulicity 0.75 mg/0.5 mL pen injector 1.5 mg subcut QWEEK Qty: 2 0RF No Action atorvastatin 10 MG tablet 10 mg PO QHS levothyroxine 25 MCG tablet 25 mcg PO DAILY metformin 1,000 MG tablet 1,000 mg PO BID albuterol sulfate [ProAir HFA] 1 PUFF inhaler 2 puff inhalation Q4H PRN PRN (Reason: shortness of breath) lamotrigine [Lamictal] 25 MG tablet 150 mg PO DAILY Patient Comments: TAKE 1 TABLET BY MOUTH EVERY DAY X2WKS THEN INCREASE TO 2TABS DAILY THEREAFTER insulin glargine 100 UNIT/ML insulin pen 14 unit SQ BREAKFAST buspirone 10 mg tablet 10 mg PO BID Patient Comments: TAKE 1 TABLET BY MOUTH TWICE A DAY trazodone 300 mg tablet 300 mg PO QHS Patient Comments: TAKE 1 TABLET BY MOUTH EVERY DAY AT BEDTIME NEEDED vitamin [id number] acid 1-0.8 mg Tablet 1 tab PO DAILY carbamazepine 300 mg Capsule, Er Multiphase 12 Hr 600 mg PO QHS Atrovent HFA 17 mcg/actuation Hfa Aerosol Inhaler 1 inh INHALATION DAILY alpha lipoic acid 600 mg capsule 600 mg PO DAILY Patient Comments: TAKE 1 CAPSULE BY MOUTH EVERY DAY cyclobenzaprine [cyclobenzaprine] 10 MG tablet 10 mg PO TID PRN (Reason: Muscle Spasm) Qty: 20 0RF Primary Care Provider: Beatrice Piedra Referrals: Beatrice Piedra MD [Primary Care Provider] - Disposition Disposition: Home, Self Care
--- OUTSIDE RECORDS SUMMARY | 2023-08-05 12:46 | XMS RPT_ITS | CCD ---
Author Name Unknown Address [address] [place] [address] Organization [facility] Care Team Providers Care Bog Worker Name Role Phone Josué Sarkar Unavailable Unavailable PROVIDER, UNKNOWN Unavailable Unavailable Alba Dino Unavailable Unavailable Josué Sarkar Unavailable Unavailable PROVIDER, UNKNOWN Unavailable Unavailable Dacomid Dino Unavailable Unavailable Dino Piedra MD Primary Care Provider [facility], [place]eti Unavailable Dino Piedra MD Primary Care Provider [facility], [place]eti Unavailable [facility], [place]eti Unavailable Dino Piedra MD Primary Care Provider [facility], [place] Unavailable [facility], [place] Unavailable JANA LLAMAS DO Admitting Unavailable JANA LLAMAS DO Attending Unavailable JANA LLAMAS DO Primary Care Unavailable DINO PIEDRA MD Consulting Unavailable DINO PIEDRA MD Referring Unavailable PROVIDER, UNKNOWN Consulting Unavailable TALAMPAS, DINO D Primary Care Unavailable CORNELL, NACHO Referring Unavailable CORNELL, NACHO Referring Unavailable TALAMPAS, DINO D Primary Care Unavailable CORNELL, NACHO Referring Unavailable TALAMPAS, DINO D Primary Care Unavailable CORNELL, NACHO Referring Unavailable TALAMPAS, DINO D Primary Care Unavailable TALAMPAS, DINO D Primary Care Unavailable CORNELL, NACHO Attending Unavailable CORNELL, NACHO Referring Unavailable TALAMPAS, DINO D Primary Care Unavailable MARY WOMACK Attending Unavail able MARY WOMACK Referring Unavail able TALAMPAS, DINO D Primary Care Unavailable TALAMPAS, DINO D Attending Unavailable ANGELITO FRAGOSO Attending Unavailable CORNELL, NACHO Referring Unavailable TALAMPAS, DINO D Primary Care Unavailable TALAMPAS, DINO D Primary Care Unavailable CORNELL, NACHO Referring Unavailable TALAMPAS, DINO D Primary Care Unavailable CORNELL, NACHO Referring Unavailable TALAMPAS, DINO D Primary Care Unavailable CORNELL, NACHO Attending Unavailable TALAMPAS, DINO D Primary Care Unavailable ZARAANDER Attending Unavailable TALAMPAS, DINO D Primary Care Unavailable ZARA, ANDER Referring Unavailable TALAMPAS, DINO D Primary Care Unavailable TALAMPAS, DINO D Primary Care Unavailable ZARA, ANDER Referring Unavailable TALAMPAS, DINO D Primary Care Unavailable MARY WOMACK Attending Unavail able TALAMPAS, DINO D Primary Care Unavailable CORNELL, NACHO Referring Unavailable TALAMPAS, DINO D Primary Care Unavailable TALAMPAS, DINO D Attending Unavailable CORNELL, NACHO Attending Unavailable TALAMPAS, DINO D Primary Care Unavailable Allergies Allergy Classification Reported Allergen(s) Allergy Type Date of Onset Reaction(s) Facility (20 sources) HYDROmorphone; Translations: [HYDROMORPHONE] Drug Allergy 1 GI Upset, Vomiting [facility] Work Phone: (20 sources) Latex; Translations: [LATEX] Drug Allergy 9 Hives [facility] Work Phone: (20 sources) Seasonal allergy; Translations: [SEASONAL ALLERGIES] Allergy to substance 1 Other: See Comments [facility] (1 source) HYDROmorphone Drug Allergy [facility] Repository Medications Current Medications Medication Drug Class(es) Dates Sig (Normalized) Sig (Original) 24 hr metFORMIN hydrochloride 500 mg extended release oral tablet (20 sources) Biguanide Start: 09-05-2022 End: 12-09-2023 take 1 tablet by mouth twice daily before mealtime metFORMIN ER (GLUCOPHAGE XR) 500 mg 24 hr tablet Indications: Controlled type 2 diabetes mellitus with diabetic neuropathy, without long-term current use of insulin (HCC) Take 1 tablet by mouth twice daily before meals. 180 tablet 3 12/14/2022 12/09/2023 Active Completed/Discontinued Medications Medication Drug Class(es) Dates Sig (Normalized) Sig (Original) acetaminophen 500 mg oral tablet (16 sources) Start: 03-09-2021 End: 12-08-2022 take 2 tablets by mouth every six hours as needed acetaminophen (TYLENOL EXTRA STRENGTH) 500 mg tablet Take 2 tablets by mouth every 6 hours as needed for pain. 60 tablet 0 03/09/2021 12/08/2022 Discontinued Problems Active Problems Problem Classification Problem Date Documented Date Episodic/Chronic Asthma (20 sources) Asthma; Translations: [Unspecified asthma, uncomplicated] Onset: 03-31-2019 01-21-2021 Chronic Cancer of uterus (20 sources) Adenocarcinoma of endometrium; Translations: [Malignant neoplasm of endometrium] Onset: 02-10-2021 02-10-2021 Chronic Cardiac dysrhythmias (1 source) Tachycardia; Translations: [Tachycardia, unspecified] Episodic Diabetes mellitus with complications (20 sources) Other specified diabetes mellitus with unspecified complications; Translations: [Type 2 diabetes mellitus] Onset: 12-26-2014 06-24-2018 Chronic Disorders of lipid metabolism (3 sources) Hyperlipidemia, unspecified; Translations: [Hypercholesterolemia ] Onset: 05-25-2017 02-01-2023 Chronic Headache; including migraine (2 sources) New daily persistent headache (NDPH); Translations: [New daily persistent headache] Onset: 07-05-2023 07-31-2023 Chronic Miscellaneous mental health disorders (1 source) Primary insomnia; Translations: [Primary insomnia] 06-02-2023 Chronic Mood disorders (2 sources) Bipolar disorder, unspecified; Translations: [Bipolar disorder, unspecified] Onset: 05-25-2017 Chronic Mood disorders (2 sources) Major depressive disorder, single episode, unspecified; Translations: [Major depressive disorder, single episode, unspecified] Onset: 05-25-2017 Nutritional deficiencies (3 sources) Vitamin D deficiency; Translations: [Vitamin D deficiency, unspecified] Onset: 03-15-2023 Chronic Other aftercare (1 source) Encounter for therapeutic drug level monitoring; Translations: [Encounter for therapeutic drug monitoring] Onset: 07-05-2023 Episodic Other lower respiratory disease (1 source) Cough; Translations: [Cough] Episodic Other nutritional; endocrine; and metabolic disorders (3 sources) Morbid (severe) obesity due to excess calories; Translations: [Morbid (severe) obesity due to excess calories] Onset: 05-25-2017 Chronic Other nutritional; endocrine; and metabolic disorders (20 sources) Body mass index 40+ - severely obese; Translations: [Morbid (severe) obesity due to excess calories] Onset: 03-29-2017 06-24-2018 Chronic Other nutritional; endocrine; and metabolic disorders (1 source) Hypomagnesemia; Translations: [Hypomagnesemia] Chronic Other nutritional; endocrine; and metabolic disorders (2 sources) Severe obesity; Translations: [Morbid (severe) obesity due to excess calories] Chronic Other nutritional; endocrine; and metabolic disorders (1 source) Body mass index (BMI) 40.0-44.9, adult; Translations: [Class 3 severe obesity due to excess calories with body mass index (BMI) of 40.0 to 44.9 in adult, unspecified whether serious comorbidity present (HCC)] Onset: 03-15-2023 Chronic Other screening for suspected conditions (not mental disorders or infectious disease) (8 sources) Patient encounter status; Translations: [Encounter for screening mammogram for malignant neoplasm of breast] Episodic Other upper respiratory infections (1 source) Chronic maxillary sinusitis; Translations: [Chronic maxillary sinusitis] Chronic Other upper respiratory infections (1 source) Acute upper respiratory infection; Translations: [Acute upper respiratory infection, unspecified] 04-25-2023 Episodic Residual codes; unclassified (20 sources) Sleep apnea; Translations: [Sleep apnea, unspecified] 03-08-2021 Chronic Residual codes; unclassified (2 sources) Obstructive sleep apnea syndrome; Translations: [Obstructive sleep apnea (adult) (pediatric)] 04-06-2023 Chronic Residual codes; unclassified (1 source) Obstructive sleep apnea (adult) (pediatric); Translations: [JAELYN (obstructive sleep apnea)] Onset: 03-15-2023 Chronic Residual codes; unclassified (1 source) Other specified health status; Translations: [Other specified conditions influencing health status] 06-02-2023 Episodic Schizophrenia and other psychotic disorders (20 sources) Schizoaffective disorder, bipolar type; Translations: [Schizoaffective disorder, bipolar type] Onset: 04-14-2015 04-14-2015 Chronic Substance-related disorders (20 sources) Tobacco user; Translations: [Nicotine dependence, unspecified, uncomplicated] Onset: 01-21-2021 01-21-2021 Chronic Thyroid disorders (20 sources) Hypothyroidism, unspecified; Translations: [Hypothyroidism] Onset: 02-13-2012 02-13-2012 Chronic Unclassified (2 sources) Body mass index (BMI) 45.0-49.9, adult; Translations: [Body mass index (BMI) 45.0-49.9, adult] Onset: 05-25-2017 Chronic Past or Other Problems Problem Classification Problem Date Documented Da te Episodic/Chronic Acquired foot deformities (20 sources) Talipes cavus; Translations: [Congenital pes cavus, unspecified foot] Onset: 12-11-2017 12-11-2017 Episodic Coma; stupor; and brain damage (1 source) Somnolence; Translations: [Daytime sleepiness] Onset: 03-15-2023 Episodic Fracture of lower limb (1 source) Displaced fracture of proximal phalanx of left lesser toe(s), initial encounter for closed fracture; Translations: [Closed fracture of proximal phalanx of lesser toe of left foot, physeal involvement unspecified, initial encounter] Onset: 03-15-2023 Episodic Immunizations and screening for infectious disease (1 source) Encounter for immunization; Translations: [Encounter for immunization] Onset: 03-15-2023 Episodic Other aftercare (1 source) 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; Translations: [Type 2 diabetes mellitus with diabetic neuropathy, with long-term current use of insulin (HCC)] Onset: 01-09-2023 Episodic Other circulatory disease (20 sources) Abnormal peripheral pulse; Translations: [Other specified symptoms and signs involving the circulatory and respiratory systems] Onset: 12-11-2017 12-11-2017 Episodic Other lower respiratory disease (1 source) Snoring; Translations: [Loud snoring] Onset: 03-15-2023 Episodic Other skin disorders (1 source) Disorder of the skin and subcutaneous tissue, unspecified; Translations: [Skin lesion] Onset: 01-09-2023 Episodic Spondylosis; intervertebral disc disorders; other back problems (20 sources) Dorsalgia, unspecified; Translations: [Chronic low back pain] Onset: 03-17-2016 03-17-2016 Episodic Unclassified (2 sources) Tobacco use; Translations: [Tobacco use] Onset: 05-25-2017 Episodic Results Test Name Value Interpretation Reference Range Facil ity Vital Signs Date Time Vital Sign Value Performing Clinician Faci lity 06-02-2023 10:57-0500 Body weight 96.07 kg Angelito Fouzia PASTOR.SYSTEMS COORDINATOR Work Phone: [facility] 06-02-2023 10:57-0500 Diastolic blood pressure 78 mm[Hg] Angelito Fouzia PASTOR.SYSTEMS COORDINATOR Work Phone: [facility] 06-02-2023 10:57-0500 Heart rate 86 /min Angelito Fouzia PASTOR.SYSTEMS COORDINATOR Work Phone: [facility] 06-02-2023 10:57-0500 Respiratory rate 16 /min Angelito Fouzia PASTOR.SYSTEMS COORDINATOR Work Phone: [facility] 06-02-2023 10:57-0500 SaO2% (BldA) [Mass fraction] 100 % Angelito Fouzia PASTOR.SYSTEMS COORDINATOR Work Phone: [facility] 06-02-2023 10:57-0500 Systolic blood pressure 134 mm[Hg] Angelito Fouzia PASTOR.SYSTEMS COORDINATOR Work Phone: [facility] 04-25-2023 18:11-0500 Body temperature 98.2 [degF] Keyla Athy PA-C Work Phone: [facility] 04-25-2023 18:11-0500 Body weight 96.16 kg Keyla Athy PA-C Work Phone: [facility] 04-25-2023 18:11-0500 Diastolic blood pressure 76 mm[Hg] Keyla Athy PA-C Work Phone: [facility] 04-25-2023 18:11-0500 Heart rate 108 /min Keyla Athy PA-C Work Phone: [facility] 04-25-2023 18:11-0500 Respiratory rate 18 /min Keyla Athy PA-C Work Phone: [facility] 04-25-2023 18:11-0500 SaO2% (BldA) [Mass fraction] 96 % Keyla Athy PA-C Work Phone: [facility] 04-25-2023 18:11-0500 Systolic blood pressure 122 mm[Hg] Keyla Zamora PA-C Work Phone: [facility] 04-06-2023 08:41-0400 Body weight 97.52 kg Nacho Cornell PASTOR.DIFFERENTIAL TESTER Work Phone: [facility] 04-06-2023 08:41-0400 Diastolic blood pressure 75 mm[Hg] Nacho Cornell PASTOR.DIFFERENTIAL TESTER Work Phone: [facility] 04-06-2023 08:41-0400 Heart rate 86 /min Nacho Cornell PASTOR.DIFFERENTIAL TESTER Work Phone: [facility] 04-06-2023 08:41-0400 Respiratory rate 16 /min Nacho Cornell PASTOR.DIFFERENTIAL TESTER Work Phone: [facility] 04-06-2023 08:41-0400 Systolic blood pressure 111 mm[Hg] Nacho Cornell PASTOR.DIFFERENTIAL TESTER Work Phone: [facility] 01-31-2023 10:20-0400 Body weight 95.71 kg Mary Phan MD Work Phone: [facility] 01-31-2023 10:20-0400 Diastolic blood pressure 68 mm[Hg] Mary Phan MD Work Phone: [facility] 01-31-2023 10:20-0400 Systolic blood pressure 110 mm[Hg] Mary Phan MD Work Phone: [facility] 12-08-2022 12:06-0400 Body weight 94.35 kg Nacho Cornell PASTOR.DIFFERENTIAL TESTER Work Phone: [facility] 12-08-2022 12:06-0400 Diastolic blood pressure 70 mm[Hg] Nacho Cornell PASTOR.DIFFERENTIAL TESTER Work Phone: [facility] 12-08-2022 12:06-0400 Heart rate 93 /min Nacho Cornell PASTOR.DIFFERENTIAL TESTER Work Phone: [facility] 12-08-2022 12:06-0400 Respiratory rate 16 /min Nacho Cornell PASTOR.DIFFERENTIAL TESTER Work Phone: [facility] 12-08-2022 12:06-0400 SaO2% (BldA) [Mass fraction] 96 % Nacho Cornell PASTOR.DIFFERENTIAL TESTER Work Phone: [facility] 12-08-2022 12:06-0400 Systolic blood pressure 118 mm[Hg] Nacho Cornell PASTOR.DIFFERENTIAL TESTER Work Phone: [facility] 09-16-2022 10:41-0400 Body temperature 98.1 [degF] Dino Piedra MD Work Phone: [facility] 09-16-2022 10:41-0400 Body weight 92.99 kg Dino Piedra MD Work Phone: [facility] 09-16-2022 10:41-0400 Diastolic blood pressure 68 mm[Hg] Dino Piedra MD Work Phone: [facility] 09-16-2022 10:41-0400 Heart rate 125 /min Dino Piedra MD Work Phone: [facility] 09-16-2022 10:41-0400 Respiratory rate 18 /min Dino Piedra MD Work Phone: [facility] 09-16-2022 10:41-0400 SaO2% (BldA) [Mass fraction] 96 % Dino Piedra MD Work Phone: [facility] 09-16-2022 10:41-0400 Systolic blood pressure 110 mm[Hg] Dino Piedra MD Work Phone: [facility] 01-24-2022 11:39-0400 Body weight 96.16 kg Nacho Cornell PASTOR.DIFFERENTIAL TESTER Work Phone: [facility] 01-24-2022 11:39-0400 Diastolic blood pressure 70 mm[Hg] Nacho Cornell PASTOR.DIFFERENTIAL TESTER Work Phone: [facility] 01-24-2022 11:39-0400 Heart rate 84 /min Nacho Cornell PASTOR.DIFFERENTIAL TESTER Work Phone: [facility] 01-24-2022 11:39-0400 Respiratory rate 16 /min Nacho Kraig PASTOR.DIFFERENTIAL TESTER Work Phone: [facility] 01-24-2022 11:39-0400 Systolic blood pressure 134 mm[Hg] Nacho Cornell PASTOR.DIFFERENTIAL TESTER Work Phone: [facility] 10-01-2021 12:49-0400 Body temperature 97.81 [degF] Joel Hoover MD Work Phone: [facility] 10-01-2021 12:49-0400 Body weight 94.98 kg Joel Hoover MD Work Phone: [facility] 10-01-2021 12:49-0400 Diastolic blood pressure 80 mm[Hg] Joel Hoover MD Work Phone: [facility] 10-01-2021 12:49-0400 Heart rate 114 /min Joel Hoover MD Work Phone: [facility] 10-01-2021 12:49-0400 Respiratory rate 20 /min Joel Hoover MD Work Phone: [facility] 10-01-2021 12:49-0400 SaO2% (BldA) [Mass fraction] 99 % Joel Hoover MD Work Phone: [facility] 10-01-2021 12:49-0400 Systolic blood pressure 122 mm[Hg] Joel Hoover MD Work Phone: [facility] Encounters Encounter Date Encounter Type Care Provider Facility Start: 07-31-2023 Telephone encounter Ander casarez APRN.SYSTEMS COORDINATOR Work Phone: [facility] Procedures Date Procedure Procedure Detail Performing Clinician Start: 07-31-2023 Mri brain brain stem w/o w/contrast material Ander Mittal APRN.SYSTEMS COORDINATOR Work Phone: Start: 01-24-2022 Adult depression screening assessment Nacho Cornell APRN.DIFFERENTIAL TESTER Work Phone: Start: 02-16-2021 Antibody screen Plan of Treatment Date Care Activity Detail Author Start: 12-14-2025 HPV TESTING HPV TESTING [facility] Start: 11-03-2025 PAP TESTING PAP TESTING [facility] Start: 07-05-2024 Annual PCP Team Compliance Associate santa Disease Visit Annual PCP Team Chronic Disease Visit [facility] Start: 03-15-2024 Annual PCP Team Compliance Associate santa Disease Visit Annual PCP Team Chronic Disease Visit [facility] Start: 03-15-2024 Hepatitis B surface antibody level LDL Cholesterol [facility] Start: 03-15-2024 Influenza vaccination Lung Cancer [facility] Immunizations Immunization Date Immunization Notes Care Provider Fa rachid 04-06-2023 zoster vaccine recombinant Nacho Cornell PASTOR.DIFFERENTIAL TESTER Work Phone: [facility] Work Phone: 03-15-2023 influenza, injectabl e, quadrivalent, contains preservative Dino Piedra MD Work Phone: [facility] 01-04-2023 zoster vaccine recombinant Dino Piedra MD Work Phone: [facility] 06-24-2022 influenza, injectabl e, quadrivalent, contains preservative Nacho Cornell PASTOR.DIFFERENTIAL TESTER Work Phone: [facility] 06-24-2022 influenza virus vaccine, unspecified formulation Ander Mittal PASTOR.SYSTEMS COORDINATOR Work Phone: [facility] 01-24-2022 pneumococcal (PCV20) vaccine, 20 valent (PREVNAR 20) Nacho Cornell PASTOR.DIFFERENTIAL TESTER Work Phone: [facility] Work Phone: 01-24-2022 pneumococcal Conjuga te, unspecified formulation Nacho Cornell PASTOR.DIFFERENTIAL TESTER Work Phone: [facility] Work Phone: 03-23-2021 influenza, injectabl e, quadrivalent, preservative free Dino Piedra MD Work Phone: [facility] 11-04-2020 COVID-19 vaccine, fu ll dose (MODERNA) Dino Piedra MD Work Phone: [facility] 10-01-2020 COVID-19 vaccine, fu ll dose (MODERNA) Dino Piedra MD Work Phone: [facility] Work Phone: 03-12-2020 Influenza, injectabl e, Madin Madalyn Canine Kidney, quadrivalent with preservative Dino Piedra MD Work Phone: [facility] 02-22-2019 influenza, injectabl e, quadrivalent, preservative free Dino Piedra MD Work Phone: [facility] 03-15-2018 influenza, injectabl e, quadrivalent, preservative free Nacho Cornell APRN.DIFFERENTIAL TESTER Work Phone: [facility] Work Phone: 03-15-2018 influenza, seasonal, injectable Dino Piedra MD Work Phone: [facility] 03-29-2017 influenza, injectabl e, quadrivalent, contains preservative Dino Piedra MD Work Phone: [facility] 02-20-2015 influenza, seasonal, injectable Dino Piedra MD Work Phone: [facility] 06-17-2014 influenza, seasonal, injectable Dino Piedra MD Work Phone: [facility] 02-13-2012 pneumococcal polysaccharide vaccine, 23 valent Dino Piedra MD Work Phone: [facility] Work Phone: NEGATED: Highlighted row has not occurred!01-24-2022 COVID-19 vaccine, age 12+ yr ([employer]) Nacho Cornell APRN.DIFFERENTIAL TESTER Work Phone: [facility] Work Phone: Payers Date Payer Category Payer Medicaid [employer] [id number] 2014-Present [phone] [address] [place] [address] Medicaid [id number] 2014 Medicare [id number] 2014 Medicare [employer] [id number] 2014-Present [phone] [address] [place] [address] Medicare [id number] 2014 Medicare [id number] 1970 Unknown [id number] Self-pay Unknown Unknown [id number] Social History Date Type Detail Facility Start: 01-24-2022 Tobacco smoking stat [facility] Smokes tobacco daily [facility] Work Phone: Start: 04-14-2021 End: 07-17-2023 Alcohol intake Current drinker of alcohol (finding) [facility] Start: 11-03-2020 History SDOH Alcohol Comment occasionally [facility] Start: 03-05-2021 End: 01-24-2022 Tobacco Comment 1 ppd x 34 years [facility] Start: 1970 Sex Assigned At Not on file [facility] History of tobacco use Cigarette Smoker [facility] Work Phone: Start: 01-24-2022 End: 12-14-2022 Cigarettes smoked current (pack per day) - Reported 1 [facility] Work Phone: Start: 01-24-2022 Tobacco use and exposure Smokeless tobacco non-user [facility] Work Phone: Start: 01-14-2022 End: 01-24-2022 Exposure to SARS-CoV-2 (event) Not sure [facility] Work Phone: Start: 09-16-2022 End: 12-14-2022 Tobacco use panel [facility] Work Phone: Adult Depression Screening Assessment 0 [facility] Work Phone: Medical Equipment Procedure Code Equipment Code Equipment Origin al Text Equipment Identifier Dates Start: 09-13-2019 End: 03-01-2023 Clinical Notes 01-23-2019 to 08-04-2023 Telephone Encounter - Ana Peng LPN - 08/04/2023 10:00 AM ESTTelephone Encounter - Katharine Yu - 08/04/2023 9:52 AM ESTTelephone Encounter - DENNIS Cardona Laurie - 08/01/2023 1:30 PM EST Note Date & Type Note Facility 08-04-2023 Miscellaneous Notes Spoke with pt and information listed below given. Pt verbalizes understanding. Pt reports headaches are persisting. FU apt booked. Ana Peng LPN Left message to return call Katharine Yu Left message for pt to return call. Ana Cardona MA Attempted to contact patient. No answer. Try again later. Shelli Alfonso, GERALDINE Please let patient know that MRI of the brain was without any issues. Ander Mittal APRN.OCTAVIA documented in this encounter [facility] 07-31-2023 Note HNO ID: [id number] Author: ARTI WHIPPLE RT(R) Service: ? Author Type: Technologist Type: Progress Notes Filed: 07/31/2023 09:37 Note Text: Radiology Service Progress Note DATE OF SERVICE: July 31, 2023 TIME: 9:36 AM PATIENT IDENTITY VERIFICATION COMPLETED USING TWO (2) STANDARD IDENTIFIERS: Name and Date of confirmed by patient verbally. FALL SCREENING: Has the patient had 2 falls in the last year or 1 fall with injury or currently using an Ambulatory Assistive Device (Walker, Cane, Wheelchair, Crutches, etc.)? No PATIENT GENDER DATA: Female. status: : No status: NO. PATIENT RELEVANT IMPLANT DATA REVIEWED: Yes PATIENT PRESENTS WITH AN IMPLANTABLE OR ATTACHED BRIAR SHOP SUPERVISOR: Yes Dexcom ALLERGIES: Reviewed and unchanged CONTRAST ALLERGY: NO. EXAM: MRI - CONTRAST TYPE: GROUP II PERIPHERAL IV DATA: Ambulatory: A peripheral IV was started in the Left antecubital site with a Angio cath: 22 gauge. RADIOLOGY DEPARTMENT: MR; Exam(s) Completed: Head: Routine Brain SIGNATURE: RT Josiah(R) PATIENT NAME: Jodie Ghosh DATE: July 31, 2023 TIME: 9:36 AM [facility] 07-31-2023 History of Present illness Narrative Radiology Service Progress Note DATE OF SERVICE: July 31, 2023 TIME: 9:36 AM PATIENT IDENTITY VERIFICATION COMPLETED USING TWO (2) STANDARD IDENTIFIERS: Name and Date of confirmed by patient verbally. FALL SCREENING: Has the patient had 2 falls in the last year or 1 fall with injury or currently using an Ambulatory Assistive Device (Walker, Cane, Wheelchair, Crutches, etc.)? No PATIENT GENDER DATA: Female. status: : No status: NO. PATIENT RELEVANT IMPLANT DATA REVIEWED: Yes PATIENT PRESENTS WITH AN IMPLANTABLE OR ATTACHED BRIAR SHOP SUPERVISOR: Yes Dexcom ALLERGIES: Reviewed and unchanged CONTRAST ALLERGY: NO. EXAM: MRI - CONTRAST TYPE: GROUP II PERIPHERAL IV DATA: Ambulatory: A peripheral IV was started in the Left antecubital site with a Angio cath: 22 gauge. RADIOLOGY DEPARTMENT: MR; Exam(s) Completed: Head: Routine Brain SIGNATURE: RT Josiah(Kaushik) PATIENT NAME: Jodie Ghosh DATE: July 31, 2023 TIME: 9:36 AM documented in this encounter [facility] 07-17-2023 Note HNO ID: [id number] Author: GIOVANI LOPES APRN.SYSTEMS COORDINATOR Service: ? Author Type: Nurse Practitioner Type: Progress Notes Filed: 07/17/2023 08:49 Note Text: Subjective Cough Associated symptoms include chest pain, shortness of breath and wheezing. Pertinent negatives include no chills, no ear pain and no sore throat. Jodie Ghosh is a 53 year old female who presents cough, feeling short of breath, and chest and back pain with coughing for the past 3 or 4 days. She has not had a fever. She has not had any known sick contacts. She has not had a fever. She has been using cough syrup and cough drops at home. Also using albuterol inhaler. She states cough is productive. Review of Systems Constitutional: Negative for chills, fever and malaise/fatigue. HENT: Negative for congestion, ear pain and sore throat. Respiratory: Positive for cough, sputum production, shortness of breath and wheezing. Cardiovascular: Positive for chest pain. Gastrointestinal: Negative. Musculoskeletal: Positive for back pain. BP 118/81 Pulse 120 Temp 37.4 ?C (99.3 ?F) Resp 24 Wt 97.1 kg (214 lb) LMP (LMP Unknown) SpO2 97% BMI 41.79 kg/m? PAST MEDICAL HISTORY Diagnosis Date Adjustment disorder with depressed mood Anxiety disorder in conditions classified elsewhere Asthma 03/31/2019 mild well controlled Degenerative disc disease, lumbar Diabetes mellitus type II Diabetic neuropathy ([facility]) 12/11/2017 feet only Endometrial cancer ([facility]) Fibromyalgia Hypothyroidism Insomnia, unspecified Lazy eye since Menopause Morbid obesity with BMI of 45.0-49.9, adult ([facility]) 03/29/2017 Schizoaffective disorder, bipolar type ([facility]) 04/14/2015 states no longer Sleep apnea CPAP occasional usage Tobacco use disorder 01/21/2021 PAST SURGICAL HISTORY Procedure Laterality Date BACK SURGERY HX 02/03/2019 bilateral laminotomies, decompression L5 and S1 nerve roots, removal of epidural lipomatosis D+C 01/28/2021 Adenocarcioma FIGO 1, [facility]. Dr. Phan LAP SURG APPENDECTOMY 2006 LAPAROSCOPY SURG CHOLECYSTECTOMY 08/11/2008 LAPS TOTAL HYSTERECT 250 GM/< W/RMVL TUBE/OVARY 03/08/2021 PAST SURGICAL HISTORY OF 1997 right forearm, brown recluse PAST SURGICAL HISTORY OF 10/28/2020 i had my nerves burnt in my back injections didn't work ALLERGIES Latex, Hydromorphone, and Seasonal Allergies MEDICATIONS Inhalational Spacing Device 1 Device one time only for 1 dose. albuterol HFA (PROVENTIL HFA, VENTOLIN HFA) 90 mcg/actuation inhaler Inhale 2 Puffs as instructed every 4 hours as needed for wheezing/shortness of breath. predniSONE (DELTASONE) 20 mg tablet Take 2 tablets by mouth once daily for 4 days. Take daily with food. benzonatate (TESSALON PERLE) 100 mg capsule Take 2 capsules by mouth three times a day as needed for up to 10 days. dulaglutide (TRULICITY) 1.5 mg/0.5 mL pen injector Inject 1.5 mg subcutaneously one time a week. Magnesium Oxide 500 mg tab Take 1 tablet by mouth two times a day. insulin glargine (LANTUS SOLOSTAR U-100 INSULIN) 100 unit/mL (3 mL) Inject 18 Units subcutaneously every morning. Insulin Sheffield, Disposable, (BD ULTRA-FINE VIK PEN NEEDLE) 32 gauge x 5/32 Inject 1 Each subcutaneously once daily. USE ONE NEEDLE DAILY FOR DOSE OF GLARGINE Dx E11.65 flash glucose sensor (FREESTYLE JALIL 14 DAY SENSOR) kit Apply one sensor to the back of the upper arm. Remove sensor after [address] new sensor on alternate arm. levothyroxine (SYNTHROID) 25 mcg tablet Take 1 tablet by mouth once daily. Take on empty stomach. For thyroid. pregabalin (LYRICA) 150 mg capsule Take 1 capsule by mouth twice daily for 90 days. blood sugar diagnostic (BLOOD GLUCOSE TEST) test strip Test blood sugar(s) 2 times daily. Dx: Type 2 DM - Controlled E11.9 Insulin: Yes flash glucose sensor (FREESTYLE JALIL 14 DAY SENSOR) kit Apply one sensor to the back of the upper arm. Remove sensor after [address] new sensor on alternate arm. Fill Rx today 03-01-23. Patient is out of sensors. atorvastatin (LIPITOR) 10 mg tablet Take 1 tablet by mouth once daily. For cholesterol. metFORMIN ER (GLUCOPHAGE XR) 500 mg 24 hr tablet Take 1 tablet by mouth twice daily before meals. cyanocobalamin (VITAMIN B-12) 1,000 mcg tab Take 1 tablet by mouth once daily. fluticasone (FLONASE) 50 mcg/actuation nasal spray Use 2 Sprays in each nostril daily at bedtime. TRINTELLIX 10 mg tablet Take 1 tablet by mouth once daily. Alpha Lipoic Acid 600 mg cap Take 1 capsule by mouth once daily. traZODone HCl 300 mg tablet Take 1 tablet by mouth daily at bedtime. COMPOUNDED PRESCRIPTION Diabetic Shoes--fitted with inserts for flat feet, 1 pair Diagnosis: (M21.41, M21.42) Pes planus of both feet ; (E11.40) Controlled type 2 diabetes mellitus with diabetic neuropathy, without long-term current use of insulin ([facility]) flash glucose scanning reader (FREESTYLE JALIL (more content not included)... [facility] 07-05-2023 Note Patient Outreach (IN [facility]) JODIE GHOSH ([id number]) 1970 F Date Time Provider Department 07/05/23 DINO PIEDRA During your visit today, we recorded the following information about you: Allergies As of Date: 07/05/2023 Noted Allergy Reaction LATEX 08/01/2008 4 - Hives HYDROMORPHONE 01/04/2021 8 - GI Upset 11 - Vomiting Comments: vomit SEASONAL ALLERGIES 11/01/2010 14 - Other: See Comments Date Reviewed: 07/05/2023 Reviewed by: Ander Mittal APRN.SYSTEMS COORDINATOR - Fully Assessed Visit Diagnosis:Encounter for screening mammogram for breast cancer [Z12.31] Order(s):[facility] SCREENING [[id number]] Order #: [id number] FUTURE Prescriptions as of 07/10/2023 - dulaglutide (TRULICITY) 1.5 mg/0.5 mL pen injector Inject 1.5 mg subcutaneously one time a week. - Magnesium Oxide 500 mg tab Take 1 tablet by mouth two times a day. - predniSONE (DELTASONE) 10 mg tablet Take 2 tabs po BID for 2 days then 1 tab po BID for 2 days then 1/2 tab po BID for 2 days then 1/2 tab daily for 2 days then stop - insulin glargine (LANTUS SOLOSTAR U-100 INSULIN) 100 unit/mL (3 mL) Inject 18 Units subcutaneously every morning. - Insulin Sheffield, Disposable, (BD ULTRA-FINE VIK PEN NEEDLE) 32 gauge x 5/32 Inject 1 Each subcutaneously once daily. USE ONE NEEDLE DAILY FOR DOSE OF GLARGINE Dx E11.65 - flash glucose sensor (FREESTYLE JALIL 14 DAY SENSOR) kit Apply one sensor to the back of the upper arm. Remove sensor after [address] new sensor on alternate arm. - levothyroxine (SYNTHROID) 25 mcg tablet Take 1 tablet by mouth once daily. Take on empty stomach. For thyroid. - pregabalin (LYRICA) 150 mg capsule Take 1 capsule by mouth twice daily for 90 days. - blood sugar diagnostic (BLOOD GLUCOSE TEST) test strip Test blood sugar(s) 2 times daily. Dx: Type 2 DM - Controlled E11.9 Insulin: Yes - flash glucose sensor (FREESTYLE JALIL 14 DAY SENSOR) kit Apply one sensor to the back of the upper arm. Remove sensor after [address] new sensor on alternate arm. Fill Rx today 03-01-23. Patient is out of sensors. - albuterol HFA (PROVENTIL HFA, VENTOLIN HFA) 90 mcg/actuation inhaler Inhale 2 Puffs as instructed every 4 hours as needed for wheezing/shortness of breath. - atorvastatin (LIPITOR) 10 mg tablet Take 1 tablet by mouth once daily. For cholesterol. - metFORMIN ER (GLUCOPHAGE XR) 500 mg 24 hr tablet Take 1 tablet by mouth twice daily before meals. - cyanocobalamin (VITAMIN B-12) 1,000 mcg tab Take 1 tablet by mouth once daily. - fluticasone (FLONASE) 50 mcg/actuation nasal spray Use 2 Sprays in each nostril daily at bedtime. - TRINTELLIX 10 mg tablet Take 1 tablet by mouth once daily. - Alpha Lipoic Acid 600 mg cap Take 1 capsule by mouth once daily. - traZODone HCl 300 mg tablet Take 1 tablet by mouth daily at bedtime. - COMPOUNDED PRESCRIPTION Diabetic Shoes--fitted with inserts for flat feet, 1 pair Diagnosis: (M21.41, M21.42) Pes planus of both feet ; (E11.40) Controlled type 2 diabetes mellitus with diabetic neuropathy, without long-term current use of insulin (HCC) - flash glucose scanning reader (VirdiaSTYLE JALIL 14 DAY READER) misc 1 Device once daily. Meds Comments as of 12/02/2014: Problem List As Of Date 07/05/2023 Noted Resolved Schizoaffective disorder (HCC) [F25.9] 02/13/2012 01/21/2021 Hypothyroidism [E03.9] 02/13/2012 Sebaceous cyst [L72.3] 01/28/2014 01/21/2021 Controlled type 2 diabetes mellitus with diabet*12/26/2014 Pain in both feet [M79.671, M79.672] 12/26/2014 01/21/2021 Schizoaffective disorder, bipolar type (HCC) [F*04/14/2015 Chronic bilateral low back pain without sciatic*03/17/2016 Neck pain, chronic [M54.2, G89.29] 03/17/2016 Morbid obesity with BMI of 45.0-49.9, adult (HC*03/29/2017 Diabetic neuropathy (HCC) [E11.40] 12/11/2017 Pes cavus [Q66.70] 12/11/2017 Diminished pulses in lower extremity [R09.89] 12/11/2017 Other intervertebral disc degeneration, lumbar *01/23/2019 01/21/2021 Tobacco use disorder [F17.200] 01/21/2021 Asthma [J45.909] 03/31/2019 Endometrial adenocarcinoma (HCC) [C54.1] 02/10/2021 Sleep apnea [G47.30] Encounter Status:Closed by MashMango, PRODUSER on 07/10/23 [facility] 07-05-2023 Note HNO ID: [id number] Author: ANDER MITTAL APRN.SYSTEMS COORDINATOR Service: ? Author Type: Nurse Practitioner Type: Progress Notes Filed: 07/05/2023 11:50 Note Text: SUBJECTIVE Jodie Ghosh is a 53 year old female here today for a check up on her medical problems. Chief Complaint Patient presents with: Headache HPI Jodie Ghosh is a 53 year old female. She is here today due to concerns of new daily persistent headaches. Onset was about 6 months ago or longer, headache occurs every day, wakes up with the headache. Not better or worse with being awake. Headache to her whole head, generalized, not localized. Constant, no alleviating or aggravating factors. Feels kind of foggy. No syncope or presyncope but at times maybe a dizziness or lightheadedness. No trouble with vision, not double or blurred. Not sensitive to light or sound and no nausea. Increasing in intensity over time. Some mood changes, mood seems more labile lately. No major medication changes. Blood sugars ok, 170's. Has sleep apnea, does not use or CPAP, has one. Does not qualify for implant. Tylenol and Advil and headache and sinus pills not helping. Recently to the eye doctor, had Lasix surgery [address] in 2013, no significant findings. No family history of brain tumors. Headache worse with eye movements. Her medications were reviewed today and her list is now up to date. Medications Current Outpatient Medications Medication Sig Magnesium Oxide 500 mg tab Take 1 tablet by mouth once daily. dulaglutide (TRULICITY) 1.5 mg/0.5 mL pen injector Inject 1.5 mg subcutaneously one time a week. insulin glargine (LANTUS SOLOSTAR U-100 INSULIN) 100 unit/mL (3 mL) Inject 18 Units subcutaneously every morning. levothyroxine (SYNTHROID) 25 mcg tablet Take 1 tablet by mouth once daily. Take on empty stomach. For thyroid. pregabalin (LYRICA) 150 mg capsule Take 1 capsule by mouth twice daily for 90 days. albuterol HFA (PROVENTIL HFA, VENTOLIN HFA) 90 mcg/actuation inhaler Inhale 2 Puffs as instructed every 4 hours as needed for wheezing/shortness of breath. atorvastatin (LIPITOR) 10 mg tablet Take 1 tablet by mouth once daily. For cholesterol. metFORMIN ER (GLUCOPHAGE XR) 500 mg 24 hr tablet Take 1 tablet by mouth twice daily before meals. cyanocobalamin (VITAMIN B-12) 1,000 mcg tab Take 1 tablet by mouth once daily. fluticasone (FLONASE) 50 mcg/actuation nasal spray Use 2 Sprays in each nostril daily at bedtime. TRINTELLIX 10 mg tablet Take 1 tablet by mouth once daily. Alpha Lipoic Acid 600 mg cap Take 1 capsule by mouth once daily. traZODone HCl 300 mg tablet Take 1 tablet by mouth daily at bedtime. predniSONE (DELTASONE) 10 mg tablet Take 2 tabs po BID for 2 days then 1 tab po BID for 2 days then 1/2 tab po BID for 2 days then 1/2 tab daily for 2 days then stop iv contrast (will be provided with radiology test) MRI Brain Inject, intravenously, once for 1 dose.No IV access, insert saline lock prior to beginning of sedation, infusion, injection of imaging exam.Discontinue saline lock post exam. If Pt. has a central line or IVAD, may access for administration according to line specific nursing protocol.Once exam is complete flush line and de-access according to line specific nursing protocol in the MR contrast administration guidelines link Insulin Sheffield, Disposable, (BD ULTRA-FINE VIK PEN NEEDLE) 32 gauge x 5/32 Inject 1 Each subcutaneously once daily. USE ONE NEEDLE DAILY FOR DOSE OF GLARGINE Dx E11.65 flash glucose sensor (FREESTYLE JALIL 14 DAY SENSOR) kit Apply one sensor to the back of the upper arm. Remove sensor after [address] new sensor on alternate arm. blood sugar diagnostic (BLOOD GLUCOSE TEST) test strip Test blood sugar(s) 2 times daily. Dx: Type 2 DM - Controlled E11.9 Insulin: Yes flash glucose sensor (FREESTYLE JALIL 14 DAY SENSOR) kit Apply one sensor to the back of the upper arm. Remove sensor after [address] new sensor on alternate arm. Fill Rx today 03-01-23. Patient is out of sensors. COMPOUNDED PRESCRIPTION Diabetic Shoes--fitted with inserts for flat feet, 1 pair Diagnosis: (M21.41, M21.42) Pes planus of both feet ; (E11.40) Controlled type 2 diabetes mellitus with diabetic neuropathy, without long-term current use of insulin ([facility]) flash glucose scanning reader (FREESTYLE JALIL 14 DAY READER) misc 1 Device once daily. No current facility-administered medications for this visit. ALLERGIES Allergen Reactions Latex Hives Hydromorphone GI Upset, Vomiting vomit Seasonal Allergies Other: See Comments ACTIVE PROBLEM LIST Sleep Apnea Comment: CPAP occasional usage Endometrial Adenocarcinoma (Hcc) - 02/10/2021 Comment: 02/10/21: [facility]. FIGO grade 1. Mary Jacobo MD Tobacco Use Disorder - 01/21/2021 Asthma - 03/31/2019 Diabetic Neuropathy (Hcc) - 12/11/2017 Pes Cavus - 12/11/2017 Diminished Pulses in Lower (more content not included)... [facility] 06-02-2023 Note HNO ID: [id number] Author: Angelito Fragoso APRN.SYSTEMS COORDINATOR Service: ? Author Type: Nurse Practitioner Type: Progress Notes Filed: 06/02/2023 12:16 PM Note Text: [facility] New Patient Evaluation PATIENT NAME: Jodie Ghosh DATE OF SERVICE: June 01, 2023 CONSULTING PROVIDER: Nacho Cornell [facility] [address] REASON FOR CONSULT: Nacho Cornell sends the patient for an opinion about JAELYN. My findings and recommendations will be transmitted electronically via shared medical record to the consulting provider. HPI: Jodie Ghosh is a 52 year old female. Sleep-related history: JAELYN. She has difficulty tolerating PAP therapy so she's not using it. Sleeps prone. Has tried a variety of masks, including with hose at top of head; always felt like she was suffocating. She is interested in hypoglossal nerve stimulation ([employer]). SLEEP-WAKE SCHEDULE Bedtime: 8 PM. She has a hard time falling asleep. Time to fall asleep: 3 hrs Wake time: 6 AM, with an alarm. After falling asleep: she wakes up 1 time(s) per night, because of the need to urinate. On weekends, she maintains the same sleep schedule. Average total sleep time (in a 24 hour period): 6-7 hours. SLEEP-RELATED DETAILS Preferred sleep position: prone Breathing disturbances and other behaviors during sleep: snoring. Bruxism: No GERD or aspiration: No Waking up with heart pounding or racing: No Anxiety or rumination: No She does not report having an urge to move the legs in the evening (when resting) that is accompanied or caused by uncomfortable and/or unpleasant sensations in the legs. She has not been told that she has leg kicking during sleep. She denies any history of parasomnias. Excessive daytime sleepiness / fatigue is a problem. Excessive Daytime sleepiness/fatigue has been a problem for many years. There is no history of a viral illness or significant head injury prior to the start of daytime sleepiness. She does not report sleep paralysis or sleep-related hallucinations or cataplexy WAKE-RELATED DETAILS She does not work. She does have difficulty with memory or concentration. She denies falling asleep or dozing off when driving. She does take naps. Frequency: daily, Duration: 1 hour. Naps are not refreshing. She does not drink caffeinated beverages. There has not been a recent change in weight. Patient Questionnaires Sleep Scores PHQ-9 04/02/2018 07/05/2018 01/24/2022 Score 19 0 20 PROMIS Global Health - (T-Scores - the mean of general population = 50. Five points is a clinically meaningful difference.) 03/17/2016 01/23/2019 Physical T-Score 26.7 26.7 Mental T-Score 33.8 25.1 PAST TREATMENTS: CPAP PRIOR SLEEP STUDIES: A Polysomnogram performed on 03/31/23 revealed an AHI of 5.5; supine index of --; REM index of 14.6, PLM index of 6, and the oxygen saturation mary was 82%. PAST MEDICAL HISTORY Diagnosis Date Adjustment disorder with depressed mood Anxiety disorder in conditions classified elsewhere Asthma 03/31/2019 mild well controlled Degenerative disc disease, lumbar Diabetes mellitus type II Diabetic neuropathy ([facility]) 12/11/2017 feet only Endometrial cancer ([facility]) Fibromyalgia Hypothyroidism Insomnia, unspecified Lazy eye since Menopause Morbid obesity with BMI of 45.0-49.9, adult ([facility]) 03/29/2017 Schizoaffective disorder, bipolar type ([facility]) 04/14/2015 states no longer Sleep apnea CPAP occasional usage Tobacco use disorder 01/21/2021 PAST SURGICAL HISTORY Procedure Laterality Date BACK SURGERY HX 02/03/2019 bilateral laminotomies, decompression L5 and S1 nerve roots, removal of epidural lipomatosis D+C 01/28/2021 Adenocarcioma FIGO 1, [facility]. Dr. Phan LAP SURG APPENDECTOMY 2006 LAPAROSCOPY SURG CHOLECYSTECTOMY 08/11/2008 LAPS TOTAL HYSTERECT 250 GM/< W/RMVL TUBE/OVARY 03/08/2021 PAST SURGICAL HISTORY OF 1997 right forearm, brown recluse PAST SURGICAL HISTORY OF 10/28/2020 i had my nerves burnt in my back injections didn't work ACTIVE PROBLEM LIST Hypothyroidism Controlled Type 2 Diabetes Mellitus With Diabetic Neuropathy, Without Long-Term Current Use of Insulin (Hcc) Schizoaffective Disorder, Bipolar Type (Hcc) Chronic Bilateral Low Back Pain Without Sciatica Neck Pain, Chronic Morbid Obesity With Bmi of 45.0-49.9, Adult (Hcc) Diabetic Neuropathy (Hcc) Pes Cavus Diminished Pulses in Lower Extremity Tobacco Use Disorder Asthma Endometrial Adenocarcinoma (Hcc) Sleep Apnea Allergies As of Date: 06/02/2023 Allergen Noted Reaction LATEX 08/01/2008 Hives HYDROMORPHONE 01/04/2021 GI Upset and Vomiting SEASONAL ALLERGIES 11/01/2010 Other: See Comments Fully Assessed 06/02/2023 CURRENT MEDICATIONS: Magnesium Oxide 500 mg tab Take 1 tablet by mouth once daily. dulaglutide (TRULICITY) 1.5 mg/0.5 mL pen injector Inject 1.5 mg subcutaneously one (more content not included)... [facility] 06-02-2023 History of Present illness Narrative Images from the original note were not included. [facility] New Patient Evaluation PATIENT NAME: Jodie Ghosh DATE OF SERVICE: June 01, 2023 CONSULTING PROVIDER: Nacho Cornell [address] [place] [id number] REASON FOR CONSULT: Nacho Cornell sends the patient for an opinion about JAELYN. My findings and recommendations will be transmitted electronically via shared medical record to the consulting provider. HPI: Jodie Ghosh is a 52 year old female. Sleep-related history: JAELYN. She has difficulty tolerating PAP therapy so she's not using it. Sleeps prone. Has tried a variety of masks, including with hose at top of head; always felt like she was suffocating. She is interested in hypoglossal nerve stimulation ([employer]). SLEEP-WAKE SCHEDULE Bedtime: 8 PM. She has a hard time falling asleep. Time to fall asleep: 3 hrs Wake time: 6 AM, with an alarm. After falling asleep: she wakes up 1 time(s) per night, because of the need to urinate. On weekends, she maintains the same sleep schedule. Average total sleep time (in a 24 hour period): 6-7 hours. SLEEP-RELATED DETAILS Preferred sleep position: prone Breathing disturbances and other behaviors during sleep: snoring. Bruxism: No GERD or aspiration: No Waking up with heart pounding or racing: No Anxiety or rumination: No She does not report having an urge to move the legs in the evening (when resting) that is accompanied or caused by uncomfortable and/or unpleasant sensations in the legs. She has not been told that she has leg kicking during sleep. She denies any history of parasomnias. Excessive daytime sleepiness / fatigue is a problem. Excessive Daytime sleepiness/fatigue has been a problem for many years. There is no history of a viral illness or significant head injury prior to the start of daytime sleepiness. She does not report sleep paralysis or sleep-related hallucinations or cataplexy WAKE-RELATED DETAILS She does not work. She does have difficulty with memory or concentration. She denies falling asleep or dozing off when driving. She does take naps. Frequency: daily, Duration: 1 hour. Naps are not refreshing. She does not drink caffeinated beverages. There has not been a recent change in weight. Patient Questionnaires Sleep Scores PHQ-9 04/02/2018 07/05/2018 01/24/2022 Score 19 0 20 PROMIS Global Health - (T-Scores - the mean of general population = 50. Five points is a clinically meaningful difference.) 03/17/2016 01/23/2019 Physical T-Score 26.7 26.7 Mental T-Score 33.8 25.1 PAST TREATMENTS: CPAP PRIOR SLEEP STUDIES: A Polysomnogram performed on 03/31/23 revealed an AHI of 5.5; supine index of --; REM index of 14.6, PLM index of 6, and the oxygen saturation mary was 82%. PAST MEDICAL HISTORY Diagnosis Date Adjustment disorder with depressed mood Anxiety disorder in conditions classified elsewhere Asthma 03/31/2019 mild well controlled Degenerative disc disease, lumbar Diabetes mellitus type II Diabetic neuropathy ([facility]) 12/11/2017 feet only Endometrial cancer ([facility]) Fibromyalgia Hypothyroidism Insomnia, unspecified Lazy eye since Menopause Morbid obesity with BMI of 45.0-49.9, adult ([facility]) 03/29/2017 Schizoaffective disorder, bipolar type ([facility]) 04/14/2015 states no longer Sleep apnea CPAP occasional usage Tobacco use disorder 01/21/2021 PAST SURGICAL HISTORY Procedure Laterality Date BACK SURGERY HX 02/03/2019 bilateral laminotomies, decompression L5 and S1 nerve roots, removal of epidural lipomatosis D+C 01/28/2021 Adenocarcioma FIGO 1, [facility]. Dr. Emilie RIVERA SURG APPENDECTOMY 2005 LAPAROSCOPY SURG CHOLECYSTECTOMY 08/11/2008 LAPS TOTAL HYSTERECT 250 GM/< W/RMVL TUBE/OVARY 03/08/2021 PAST SURGICAL HISTORY OF 1997 right forearm, brown recluse PAST SURGICAL HISTORY OF 10/28/2020 i had my nerves burnt in my back injections didn't work ACTIVE PROBLEM LIST Hypothyroidism Controlled Type 2 Diabetes Mellitus With Diabetic Neuropathy, Without Long-Term Current Use of Insulin (Hcc) Schizoaffective Disorder, Bipolar Type (Hcc) Chronic Bilateral Low Back Pain Without Sciatica Neck Pain, Chronic Morbid Obesity With Bmi of 45.0-49.9, Adult (Hcc) Diabetic Neuropathy (Hcc) Pes Cavus Diminished Pulses in Lower Extremity Tobacco Use Disorder Asthma Endometrial Adenocarcinoma (Hcc) Sleep Apnea Allergies As of Date: 06/02/2023 Allergen Noted Reaction LATEX 08/01/2008 Hives HYDROMORPHONE 01/04/2021 GI Upset and Vomiting SEASONAL ALLERGIES 11/01/2010 Other: See Comments Fully Assessed 06/02/2023 CURRENT MEDICATIONS: Magnesium Oxide 500 mg tab Take 1 tablet by mouth once daily. dulaglutide (TRULICITY) 1.5 mg/0.5 mL pen injector Inject 1.5 mg subcutaneously one time a week. insulin glargine (LANTUS SOLOSTAR U-100 INSULIN) 100 unit/mL (3 mL) Inject 18 Units subcutaneously every morning. Insulin Sheffield, Disposable, (BD ULTRA-FINE VIK PEN NEEDLE) 32 gauge x 5/32 Inject 1 Each subcutaneously once daily. USE ONE NEEDLE DAILY FOR DOSE OF GLARGINE Dx E11.65 flash glucose sensor (FREESTYLE JALIL 14 DAY SENSOR) kit Apply one sensor to the back of the upper arm. Remove sensor after [address] new sensor on alternate arm. levothyroxine (SYNTHROID) 25 mcg tablet Take 1 tablet by mouth once daily. Take on empty stomach. For thyroid. pregabalin (LYRICA) 150 mg capsule Take 1 capsule by mouth twice daily for 90 days. blood sugar diagnostic (BLOOD GLUCOSE TEST) test strip Test blood sugar(s) 2 times daily. Dx: Type 2 DM - Controlled E11.9 Insulin: Yes flash glucose sensor (FREESTYLE JALIL 14 DAY SENSOR) kit Apply one sensor to the back of the upper arm. Remove sensor after [address] new sensor on alternate arm. Fill Rx today 03-01-23. Patient is out of sensors. albuterol HFA (PROVENTIL HFA, VENTOLIN HFA) 90 mcg/actuation inhaler Inhale 2 Puffs as instructed every 4 hours as needed for wheezing/shortness of breath. atorvastatin (LIPITOR) 10 mg tablet Take 1 tablet by mouth once daily. For cholesterol. metFORMIN ER (GLUCOPHAGE XR) 500 mg 24 hr tablet Take 1 tablet by mouth twice daily before meals. cyanocobalamin (VITAMIN B-12) 1,000 mcg tab Take 1 tablet by mouth once daily. fluticasone (FLONASE) 50 mcg/actuation nasal spray Use 2 Sprays in each nostril daily at bedtime. TRINTELLIX 10 mg tablet Take 1 tablet by mouth once daily. Alpha Lipoic Acid 600 mg cap Take 1 capsule by mouth once daily. traZODone HCl 300 mg tablet Take 1 tablet by mouth daily at bedtime. COMPOUNDED PRESCRIPTION Diabetic Shoes--fitted with inserts for flat feet, 1 pair Diagnosis: (M21.41, M21.42) Pes planus of both feet ; (E11.40) Controlled type 2 diabetes mellitus with diabetic neuropathy, without long-term current use of insulin ([facility]) flash glucose scanning reader (FREESTYLE JALIL 14 DAY READER) misc 1 Device once daily. benzonatate (TESSALON PERLES) 100 mg capsule Take 2 capsules by mouth three times a day as needed. Review of Systems Constitutional: Positive for fatigue. HENT: Negative for congestion. Respiratory: Negative for difficulty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 integrity: Skin integrity normal. Skin: General: Skin is warm and dry. Neurological: Mental Status: She is alert. Mental status is at baseline. ALLERGIES Allergen Reactions Latex Hives Hydromorphone GI Upset, Vomiting vomit Seasonal Allergies Other: See Comments Medications insulin glargine (LANTUS SOLOSTAR U-100 INSULIN) 100 unit/mL (3 mL) Inject 18 Units subcutaneously every morning. Insulin Sheffield, Disposable, (BD ULTRA-FINE VIK PEN NEEDLE) 32 gauge x 5/32 Inject 1 Each subcutaneously once daily. USE ONE NEEDLE DAILY FOR DOSE OF GLARGINE Dx E11.65 flash glucose sensor (FREESTYLE JALIL 14 DAY SENSOR) kit Apply one sensor to the back of the upper arm. Remove sensor after [address] new sensor on alternate arm. levothyroxine (SYNTHROID) 25 mcg tablet Take 1 tablet by mouth once daily. Take on empty stomach. For thyroid. pregabalin (LYRICA) 150 mg capsule Take 1 capsule by mouth twice daily for 90 days. blood sugar diagnostic (BLOOD GLUCOSE TEST) test strip Test blood sugar(s) 2 times daily. Dx: Type 2 DM - Controlled E11.9 Insulin: Yes flash glucose sensor (FREESTYLE JALIL 14 DAY SENSOR) kit Apply one sensor to the back of the upper arm. Remove sensor after [address] new sensor on alternate arm. Fill Rx today 03-01-23. Patient is out of sensors. albuterol HFA (PROVENTIL HFA, VENTOLIN HFA) 90 mcg/actuation inhaler Inhale 2 Puffs as instructed every 4 hours as needed for wheezing/shortness of breath. atorvastatin (LIPITOR) 10 mg tablet Take 1 tablet by mouth once daily. For cholesterol. metFORMIN ER (GLUCOPHAGE XR) 500 mg 24 hr tablet Take 1 tablet by mouth twice daily before meals. cyanocobalamin (VITAMIN B-12) 1,000 mcg tab Take 1 tablet by mouth once daily. fluticasone (FLONASE) 50 mcg/actuation nasal spray Use 2 Sprays in each nostril daily at bedtime. TRINTELLIX 10 mg tablet Take 1 tablet by mouth once daily. Alpha Lipoic Acid 600 mg cap Take 1 capsule by mouth once daily. Magnesium Oxide 500 mg tab Take 1 tablet by mouth once daily. traZODone HCl 300 mg tablet Take 1 tablet by mouth daily at bedtime. COMPOUNDED PRESCRIPTION Diabetic Shoes--fitted with inserts for flat feet, 1 pair Diagnosis: (M21.41, M21.42) Pes planus of both feet ; (E11.40) Controlled type 2 diabetes mellitus with diabetic neuropathy, without long-term current use of insulin ([facility]) flash glucose scanning reader (FREESTYLE JALIL 14 DAY READER) misc 1 Device once daily. dulaglutide (TRULICITY) 1.5 mg/0.5 mL pen injector Inject 1.5 mg subcutaneously one time a week. PAST MEDICAL HISTORY Diagnosis Date Adjustment disorder with depressed mood Anxiety disorder in conditions classified elsewhere Asthma 03/31/2019 mild well controlled Degenerative disc disease, lumbar Diabetes mellitus type II Diabetic neuropathy ([facility]) 12/11/2017 feet only Endometrial cancer ([facility]) Fibromyalgia Hypothyroidism Insomnia, unspecified Lazy eye since Menopause Morbid obesity with BMI of 45.0-49.9, adult ([facility]) 03/29/2017 Schizoaffective disorder, bipolar type ([facility]) 04/14/2015 states no longer Sleep apnea CPAP occasional usage Tobacco use disorder 01/21/2021 Social History Tobacco Use Smoking status: Every Day Packs/day: 1.00 Years: 30.00 Additional pack years: 0.00 Total pack years: 30.00 Types: Cigarettes Smokeless tobacco: Never Tobacco comments: 1 ppd x 34 years Vaping Use Vaping Use: Never used Substance Use Topics Alcohol use: Yes Comment: occasionally Drug use: Not Currently Comment: quit cocaine 8 years Component Latest Ref Rng & Units 12/08/2022 03/15/2023 Protein, Total 6.3 - 8.0 g/dL 7.8 Albumin 3.9 - 4.9 g/dL 4.3 Calcium 8.5 - 10.2 mg/dL 10.1 Bilirubin, Total 0.2 - 1.3 mg/dL 0.3 Alkaline Phosphatase 34 - 123 U/L 78 AST 13 - 35 U/L 39 (H) ALT 7 - 38 U/L 35 Glucose 74 - 99 mg/dL 156 (H) BUN 7 - 21 mg/dL 18 Creatinine 0.58 - 0.96 mg/dL 0.64 Sodium 136 - 144 mmol/L 143 Potassium 3.7 - 5.1 mmol/L 4.2 Chloride 97 - 105 mmol/L 102 CO2 22 - 30 mmol/L 29 Anion Gap 9 - 18 mmol/L 12 eGFR >=60 mL/min/1.73m 106 Cholesterol, Total <200 mg/dL 152 Triglyceride <150 mg/dL 119 HDL Cholesterol >39 mg/dL 59 Non HDL Cholesterol <130 mg/dL 93 Fasting Time hrs 8 VLDL Cholesterol <30 mg/dL 24 TC:HDL Ratio <5.10 2.58 LDL Cholesterol <100 mg/dL 69 LDL:HDL Ratio <2.54 1.17 Creatinine, Ur Random (UCRR) 20.0 - 300.0 mg/dL 133.3 Albumin, Urine Random mg/L <12.0 Albumin/Creat Ratio <30 mg/g <9 Hemoglobin A1C 4.3 - 5.6 % 9.2 (H) 7.3 (H) Estimated Average Glucose mg/dL 217 163 TSH 0.270 - 4.200 mIU/L 1.110 Vitamin D 25 Hydroxy 31.0 - 80.0 ng/mL 40.6 ASSESSMENT/PLAN: 1. JAELYN (obstructive sleep apnea) - ICD9: 327.23, ICD10: G47.33 (primary diagnosis) Sleep study completed at [facility], reports prior intolerance of PAP therapy. Interested in insite. - CONSULT TO SLEEP MEDICINE - ADULT 2. Controlled type 2 diabetes mellitus with diabetic neuropathy, without long-term current use of insulin (HCC) - ICD9: 250.60, 357.2, ICD10: E11.40 - INSULIN GLARGINE (U-100) 100 UNIT/ML (3 ML) SUBCUTANEOUS PEN 3. Encounter for immunization - ICD9: V03.89, ICD10: Z23 - PFIZER-BIONTMy Hood COVID-19 VACCINE (2022- SEASON) AGE 12+ YR - ZOSTER VACCINE, RECOMBINANT (SHINGRIX) Nacho Cornell APRN.CNS Medical Decision Making: Problems: Moderate: 2+ stable chronic illnesses Risk: Moderate: Drug management Medical Decision Making Level: 4 - Moderate documented in this encounter [facility] 03-23-2023 Miscellaneous Notes Order, note and previous sleep study faxed to [facility] sleep study Note closed Office note needs completed prior to faxing order. Pt is calling to report she called [facility] to schedule sleep study. Pt was advised that they have not received orders from 's office. Has office sent over [facility] form for sleep study? If not please fax and let pt know. Carol Clarke LPN documented in this encounter [facility] 03-22-2023 Note HNO ID: [id number] Author: Braxton Modi RPh Service: ? Author Type: Pharmacist Type: Progress Notes Filed: 03/27/2023 10:14 AM Note Text: Primary Care Pharmacy Visit CC (Reason for Consult): (E11.40) Controlled type 2 diabetes mellitus with diabetic neuropathy, without long-term current use of insulin (HCC) (primary encounter diagnosis) Goal(s): A1C < 7% Last Collaborating Provider Visit: 03/15/23 Jodie Ghosh is a 52 year old female presenting for follow up visit by telephone. Patient consents to pharmacy collaborative practice agreement. . HPI: Jodie Ghosh attends today's appointment by telephone. she is a [place] White FEMALE who is AANDO x3, pleasant, and cooperative. Today, she states that her chief concern is My blood sugars aren't dropping any more. PCP dropped insulin to 15 units after persistent low blood sugars. Since that time she has had averages in the high 170s and low 180s. Notes she feels fine. CGM Data Sensor usage: 61% (Goal >70%); scans two - three times daily Hypoglycemia events: 0%, 0 events Date range Overall AVG 12a-6a 6a-12p 12p-6p 6p-12a TIME IN RANGE 7 day 182 200 199 156 188 ABOVE 53% 14 day 172 171 179 164 180 IN (80-180) 47% 30 day 139 137 140 135 145 BELOW 0% 90 day Past medical history reviewed. ALLERGIES Allergen Reactions Latex Hives Hydromorphone GI Upset, Vomiting vomit Seasonal Allergies Other: See Comments Current Outpatient Medications Medication Sig Dispense Refill Insulin Sheffield, Disposable, (BD ULTRA-FINE VIK PEN NEEDLE) 32 gauge x 5/32 Inject 1 Each subcutaneously once daily. USE ONE NEEDLE DAILY FOR DOSE OF GLARGINE Dx E11.65 100 Each 3 flash glucose sensor (FREESTYLE JALIL 14 DAY SENSOR) kit Apply one sensor to the back of the upper arm. Remove sensor after [address] new sensor on alternate arm. 2 Kit 11 levothyroxine (SYNTHROID) 25 mcg tablet Take 1 tablet by mouth once daily. Take on empty stomach. For thyroid. 90 tablet 3 dulaglutide (TRULICITY) 1.5 mg/0.5 mL pen injector Inject 1.5 mg subcutaneously one time a week. 2 mL 1 pregabalin (LYRICA) 150 mg capsule Take 1 capsule by mouth twice daily for 90 days. 60 capsule 2 blood sugar diagnostic (BLOOD GLUCOSE TEST) test strip Test blood sugar(s) 2 times daily. Dx: Type 2 DM - Controlled E11.9 Insulin: Yes 100 Strip 11 flash glucose sensor (FREESTYLE JALIL 14 DAY SENSOR) kit Apply one sensor to the back of the upper arm. Remove sensor after [address] new sensor on alternate arm. Fill Rx today 03-01-23. Patient is out of sensors. 1 Kit 0 albuterol HFA (PROVENTIL HFA, VENTOLIN HFA) 90 mcg/actuation inhaler Inhale 2 Puffs as instructed every 4 hours as needed for wheezing/shortness of breath. 1 Each 0 atorvastatin (LIPITOR) 10 mg tablet Take 1 tablet by mouth once daily. For cholesterol. 90 tablet 0 insulin glargine (LANTUS SOLOSTAR U-100 INSULIN) 100 unit/mL (3 mL) Inject 26 Units subcutaneously every morning. (Patient taking differently: Inject 15 Units subcutaneously every morning.) 30 mL 5 metFORMIN ER (GLUCOPHAGE XR) 500 mg 24 hr tablet Take 1 tablet by mouth twice daily before meals. 180 tablet 3 cyanocobalamin (VITAMIN B-12) 1,000 mcg tab Take 1 tablet by mouth once daily. 30 tablet 11 fluticasone (FLONASE) 50 mcg/actuation nasal spray Use 2 Sprays in each nostril daily at bedtime. 1 Each 11 TRINTELLIX 10 mg tablet Take 1 tablet by mouth once daily. Alpha Lipoic Acid 600 mg cap Take 1 capsule by mouth once daily. 30 capsule 11 Magnesium Oxide 500 mg tab Take 1 tablet by mouth once daily. 30 tablet 5 traZODone HCl 300 mg tablet Take 1 tablet by mouth daily at bedtime. lamoTRIgine (LAMICTAL) 150 mg tablet Take 150 mg by mouth once daily. (Patient not taking: Reported on 03/15/2023) COMPOUNDED PRESCRIPTION Diabetic Shoes--fitted with inserts for flat feet, 1 pair Diagnosis: (M21.41, M21.42) Pes planus of both feet ; (E11.40) Controlled type 2 diabetes mellitus with diabetic neuropathy, without long-term current use of insulin (HCC) 1 Each 0 flash glucose scanning reader (FREESTYLE JALIL 14 DAY READER) misc 1 Device once daily. 1 Each 0 No current facility-administered medications for this visit. EXAM: LMP (LMP Unknown) Last 3 Encounter BP Readings: Date: BP: 03/15/2023 100/69 01/31/2023 110/68 01/09/2023 118/68 Wt: 97.1 kg (214 lb) BMI: 41.79 kg/(m2) LABS: Lab Results Component Value Date HBA1C 7.3 03/15/2023 HBA1C 9.2 12/08/2022 HBA1C 7.7 07/04/2022 HBA1C 8.8 06/23/2021 HBA1C 8.8 12/03/2020 HBA1C 7.8 08/21/2020 Glucose 156 03/15/2023 BUN 18 03/15/2023 Creatinine, Whole Blood (iSTAT) 0.64 03/15/2023 Sodium 143 03/15/2023 Potassium 4.2 03/15/2023 Chloride 102 03/15/2023 CO2 29 03/15/2023 Protein, Total 7.8 03/15/2023 Albumin 4.3 03/15/2023 Calcium 10.1 03/15/2023 Alkaline Phosphatase 78 03/15/2023 Bilirubin, Total 0.3 03/15/2023 AST 39 03/15/2023 ALT 35 03/15/2023 Lab Re (more content not included)... [facility] 03-15-2023 Note HNO ID: [id number] Author: Dino Piedra MD Service: ? Author Type: Physician Type: Progress Notes Filed: 03/23/2023 2:07 AM Note Text: This note was created using NoteWriter. Subjective Jodie Ghosh is a 52 year old female. Patient presents with: F/U 6 months SUBJECTIVE: Jodie Ghosh is a 52 year old year old lady here today for 6 month follow up appointment for review of medical conditions. Needs order for another sleep study. Lady from [facility] told her needs. Had cataract surgery. Did well. Broke toe left foot. Was wearing slippery pair of shes when getting in her van and foot slipped and hit something. Happened twice . Went to [facility] last Monday. Was referred to assistant counsel but they do no take her insurance. Told to stay in walking shoe for 2 weeks. Noted also stung by shoaibchelsilebee last week. In her back. Doing okay now. Average glucose 158 Past 14 days 140 Past 30 days 128 Past 90 days 155 No more lows below 70. Noted running higher after 6PM but still <180. Has glucose tablets now. PAST MEDICAL HISTORY Diagnosis Date Adjustment disorder with depressed mood Anxiety disorder in conditions classified elsewhere Asthma 03/31/2019 mild well controlled Degenerative disc disease, lumbar Diabetes mellitus type II Diabetic neuropathy ([facility]) 12/11/2017 feet only Endometrial cancer ([facility]) Fibromyalgia Hypothyroidism Insomnia, unspecified Lazy eye since Menopause Morbid obesity with BMI of 45.0-49.9, adult ([facility]) 03/29/2017 Schizoaffective disorder, bipolar type ([facility]) 04/14/2015 states no longer Sleep apnea CPAP occasional usage Tobacco use disorder 01/21/2021 Current Outpatient Medications Medication Sig dulaglutide (TRULICITY) 1.5 mg/0.5 mL pen injector Inject 1.5 mg subcutaneously one time a week. pregabalin (LYRICA) 150 mg capsule Take 1 capsule by mouth twice daily for 90 days. blood sugar diagnostic (BLOOD GLUCOSE TEST) test strip Test blood sugar(s) 2 times daily. Dx: Type 2 DM - Controlled E11.9 Insulin: Yes flash glucose sensor (FREESTYLE JALIL 14 DAY SENSOR) kit Apply one sensor to the back of the upper arm. Remove sensor after [address] new sensor on alternate arm. Fill Rx today 03-01-23. Patient is out of sensors. levothyroxine (SYNTHROID) 25 mcg tablet TAKE 1 TABLET BY MOUTH ONCE DAILY. TAKE ON EMPTY STOMACH. FOR THYROID. albuterol HFA (PROVENTIL HFA, VENTOLIN HFA) 90 mcg/actuation inhaler Inhale 2 Puffs as instructed every 4 hours as needed for wheezing/shortness of breath. atorvastatin (LIPITOR) 10 mg tablet Take 1 tablet by mouth once daily. For cholesterol. insulin glargine (LANTUS SOLOSTAR U-100 INSULIN) 100 unit/mL (3 mL) Inject 26 Units subcutaneously every morning. (Patient taking differently: Inject 15 Units subcutaneously every morning.) metFORMIN ER (GLUCOPHAGE XR) 500 mg 24 hr tablet Take 1 tablet by mouth twice daily before meals. cyanocobalamin (VITAMIN B-12) 1,000 mcg tab Take 1 tablet by mouth once daily. flash glucose sensor (FREESTYLE JALIL 14 DAY SENSOR) kit Apply one sensor to the back of the upper arm. Remove sensor after [address] new sensor on alternate arm. fluticasone (FLONASE) 50 mcg/actuation nasal spray Use 2 Sprays in each nostril daily at bedtime. TRINTELLIX 10 mg tablet Take 1 tablet by mouth once daily. Alpha Lipoic Acid 600 mg cap Take 1 capsule by mouth once daily. Magnesium Oxide 500 mg tab Take 1 tablet by mouth once daily. Insulin Sheffield, Disposable, (NOVOFINE 32) 32 gauge x 1/4 Inject 1 Each subcutaneously once daily. USE ONE NEEDLE DAILY FOR DOSE OF GLARGINE Dx E11.65 traZODone HCl 300 mg tablet Take 1 tablet by mouth daily at bedtime. COMPOUNDED PRESCRIPTION Diabetic Shoes--fitted with inserts for flat feet, 1 pair Diagnosis: (M21.41, M21.42) Pes planus of both feet ; (E11.40) Controlled type 2 diabetes mellitus with diabetic neuropathy, without long-term current use of insulin ([facility]) flash glucose scanning reader (FREESTYLE JALIL 14 DAY READER) misc 1 Device once daily. lamoTRIgine (LAMICTAL) 150 mg tablet Take 150 mg by mouth once daily. (Patient not taking: Reported on 03/15/2023) No current facility-administered medications for this visit. Review of Systems Objective BP 100/69 Pulse 89 Temp 37.1 ?C (98.7 ?F) Resp 18 Wt 97.1 kg (214 lb) LMP (LMP Unknown) SpO2 95% BMI 41.79 kg/m? Last 5 Encounter Wt Readings: Date: Wt: 03/15/2023 97.1 kg (214 lb) 01/31/2023 95.7 kg (211 lb) 01/09/2023 93.9 kg (207 lb) 12/08/2022 94.3 kg (208 lb) 09/16/2022 93 kg (205 lb) No waist measurement recorded Estimated body mass index is 41.79 kg/m? as calculated from the following: Height as of 08/02/22: 152.4 cm (5'). Weight as of this encounter: 97.1 kg (214 lb). Last 5 Encounter BP Readings: Date: BP: 03/15/2023 100/69 01/31/2023 110/68 01/09/2023 118/68 12/08/2022 118/70 09/16/2022 110/68 P (more content not included)... [facility] 03-07-2023 Miscellaneous Notes Last Office Visit: 01/09/2023 Future Office Visit: 03/15/2023 Requested Prescriptions Pending Prescriptions Disp Refills dulaglutide (TRULICITY) 1.5 mg/0.5 mL pen injector 2 mL 1 Sig: Inject 1.5 mg subcutaneously one time a week. Date of Last Labs: 12/08/2022 documented in this encounter [facility] 03-06-2023 Miscellaneous Notes Looks like just needed a refill (the pharmacy uses the term authorization and prior authorization when they mean the patient is out of refills and needs another RX from the doctor; confusing to everyone) Insurance might need to do a prior authorization but won't know till RX sent in The following approved medication requests have been transmitted electronically. Requested Prescriptions Signed Prescriptions Disp Refills pregabalin (LYRICA) 150 mg capsule 60 capsule 2 Sig: Take 1 capsule by mouth twice daily for 90 days. Authorizing Provider: DINO PIEDRA MD Suspect patient is out of refills. Question if really needs a prior authorization. Last office visit: 01/09/23 Next appointment scheduled: 03/15/23 Patient phones requesting refills as follows: Requested Prescriptions Pending Prescriptions Disp Refills pregabalin (LYRICA) 150 mg capsule 60 capsule 2 Sig: Take 1 capsule by mouth twice daily for 90 days. Please review and advise. Jen Decker LPN Pt called requesting to refill the pregabalin. Then states pharmacy will not fill. Stated to her they need a prior authorization. Please advise. documented in this encounter [facility] 03-03-2023 Miscellaneous Notes Phoned patient and given provider's message below. Patient reports she was able to get a sensor at the pharmacy. Reports she has the 800 number and will use it in the future. Patient aware there is an Rx for glucometer / strips at pharmacy. 1) Did she call the 1-800 number to get the sensor replaced? She does not need to pay to replace a sensor that fell off. Also, she last picked up RX for the sensor 01/31 so she should be able to get her refill for the sensor today. Double check with pharmacy to make sure they have refills on the RX 2) She should have a glucometer for back up anyway. Good for double checking to make sure CGM reading is accurate when readings are really low or really high. The following approved medication requests have been transmitted electronically. Requested Prescriptions Signed Prescriptions Disp Refills flash glucose sensor (FREESTYLE JALIL 14 DAY SENSOR) kit 1 Kit 0 Sig: Apply one sensor to the back of the upper arm. Remove sensor after [address] new sensor on alternate arm. Fill Rx today 03-01-23. Patient is out of sensors. Authorizing Provider: DINO PIEDRA Blood-Glucose Meter monitoring kit 1 Each 0 Sig: Glucose Meter of Choice - Kit - Dx: Type 2 DM - Controlled E11.9 Authorizing Provider: DINO PIEDRA blood sugar diagnostic (BLOOD GLUCOSE TEST) test strip 100 Strip 11 Sig: Test blood sugar(s) 2 times daily. Dx: Type 2 DM - Controlled E11.9 Insulin: Yes Authorizing Provider: DINO PIEDRA MD Pt called and is notified of providers message and instructions. Pt states she doesn't have the money to pay for the sensors, and if she can't get them she will just go to the ER. I asked Pt if she had a glucometer she could use and Pt states is doesn't work. Patient has been identified by name and date of : Yes, Provider Dr Piedra Date 03/01/23 Time 1615. Patient phones for refill(s): Requested Prescriptions Pending Prescriptions Disp Refills Blood-Glucose Meter monitoring kit 1 Each 0 Sig: Glucose Meter of Choice - Kit - Dx: Type 2 DM - Controlled E11.9 blood sugar diagnostic (BLOOD GLUCOSE TEST) test strip 100 Strip 11 Sig: Test blood sugar(s) 2 times daily. Dx: Type 2 DM - Controlled E11.9 Insulin: Yes Signed Prescriptions Disp Refills flash glucose sensor (FREESTYLE JALIL 14 DAY SENSOR) kit 1 Kit 0 Sig: Apply one sensor to the back of the upper arm. Remove sensor after [address] new sensor on alternate arm. Fill Rx today 03-01-23. Patient is out of sensors. Authorizing Provider: DINO PIEDRA Date of last office visit in primary care: 01/09/23 Future visit: 03/15/23 Last 2 Encounter Wt Readings: Date: Wt: 01/31/2023 95.7 kg (211 lb) 01/09/2023 93.9 kg (207 lb) Previous labs/tests for medication: Diabetes: Hemoglobin A1C (%) Date Value 12/08/2022 9.2 07/04/2022 7.7 06/23/2021 8.8 12/03/2020 8.8 Please advise. Thank you. Radha Kee, GERALDINE Can try to get local RX filled sooner and pay for out of pocket but for future reference, should call [employer] Jalil 1-800 number anytime a sensor falls off so can get a drop shipped replacement CHRIS The following approved medication requests have been transmitted electronically. Requested Prescriptions Signed Prescriptions Disp Refills flash glucose sensor (FREESTYLE JALIL 14 DAY SENSOR) kit 1 Kit 0 Sig: Apply one sensor to the back of the upper arm. Remove sensor after [address] new sensor on alternate arm. Fill Rx today 03-01-23. Patient is out of sensors. Authorizing Provider: DINO PIEDRA MD Patient reports she ran out of sensors and [employer] Jessica tells her it's too soon to get refill. Reports one of her sensors had fallen off and she had to use another one, which caused her to be short on her Rx. Reports her BS was 132 at 6:55 am this morning, then at 11:37 am today it was 40. At that time she had dizziness, GRAFF, and urinating a lot. Reports eating and drinking fluids has helped the symptoms and she is driving right now. Patient is agreeable to ER if symptoms worsen. Asking provider to please send Rx for 1 sensor to [facility]. It is too soon to fill her existing Rx per insurance. Pended. documented in this encounter [facility] 03-01-2023 Miscellaneous Notes PATIENT NOTIFIED OF SAME. Patient read back and voiced her understanding. Tell her to decrease Lantus to 20 units If still having sugars dropping under 90 in the morning after 3 days, decrease to 15 units. If morning sugars go over 150 units, she should contact me with log of sugars (fasting AM, before meals and bedtime) so can decide on next adjustment. Progress report in 1 week. Sooner if sugars still dropping under 70 or going over 200 Spoke with patient and is still getting low fasting readings in the mornings. Yesterday reading was 45 and then 53 about 10-20 minutes later. Today's reading was 40 and then at 6:55 am it was 132. Is symptomatic when readings are low with dizziness, headache and nauseated. She has attempted to reach the pharmacist but after holding for several minutes each time has not spoken with any one. Did verify current diabetic medication and all is up to date. Patient is not opposed to having PCP adjust medication. See how patient is doing Monday. If having frequent problems with low sugars, can work on adjusting meds--see if needs directions from me now or if wants to work with the pharmacist who has been working with her and discuss with him sooner than scheduled March appointment (Braxton Modi) Patient called with low blood sugar reading. Reviewed triage protocol guidelines for home care treatment and advised patient to call back if blood sugar less than 70 in 30 minutes. She verbalized understanding. Disposition: Home Care. 1899-Spoke with patient . She states she drank a glass of juice and took a tablespoon of honey. He blood sugar increased to 72. Symptoms resolved and she is going to have dinner. Shelli Alfonso RN Reason for Disposition [1] Blood glucose < 70 mg/dL (3.9 mmol/L) or symptomatic AND [2] cause known Answer Assessment - Initial Assessment Questions 1. SYMPTOMS: feels dizzy and nauseated without emesis 2. ONSET: 45 minutes ago 3. BLOOD GLUCOSE: 53 4. USUAL RANGE: 5. TYPE 1 or 2: Type 2 6. INSULIN: Took Lantus 26 Units this morning and Trulicity 1.5 mg IM weekly injection this morning 7. DIABETES PILLS: Took 500 mg Metformin ER this morning. Has not Taken Metformin 500 mg this evening 8. OTHER SYMPTOMS: No other symptoms 9. LOW BLOOD GLUCOSE TREATMENT: a glass of sweet tea 10. FOOD: Has not eaten since lunch 11. ALONE: Patient is with family member 12. : NO Protocols used: Diabetes - Low Blood [id number] documented in this encounter [facility] 02-28-[address] Piedra please review. Christine Mendoza LPN documented in this encounter [facility] 02-16-2023 Miscellaneous Notes Patient c/o low BS, unable to get above 70. Has been trying for 3 hours now. Reports she has GRAFF 9/10, dizziness, blurred vision, severe nausea. Protocol recommends ER. Patient agreeable and states boyfriend will take her. Reason for Disposition [1] Low blood glucose (< 70 mg/dL or 3.9 mmol/L) persists > 30 minutes AND [2] using low blood sugar Care Advice Answer Assessment - Initial Assessment Questions 1.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 Notes increased dose of pregabalin did not seem to help much. Has seen Dr. Maxwell. Insulin dose was increased to 26 units every morning. Continued on metformin 500mg twice daily. Dulaglutide dose increased, has yet to start increased dose. Reports home glucose reading of 99 made her feel shakey, felt better with eating. DIABETES MELLITUS: She notes glucose has been running in controlled range Patient's last HgA1C was Hemoglobin A1C (%) Date Value 12/08/2022 9.2 07/04/2022 7.7 06/23/2021 8.8 12/03/2020 8.8 ) Last 14 Encounter BP Readings: Date: BP: 09/16/2022 110/68 08/02/2022 104/60 06/24/2022 122/82 01/24/2022 134/70 10/01/2021 122/80 06/23/2021 122/80 03/23/2021 128/82 03/08/2021 103/71 03/05/2021 124/87 02/25/2021 103/52 02/16/2021 128/86 02/10/2021 124/72 01/21/2021 126/70 01/20/2021 116/76 Hyperlipidemia. Ms. Ghosh reports doing well on current therapy. Her most recent lipid panels are: Cholesterol, Total (mg/dL) Date Value 07/04/2022 158 01/24/2022 175 06/23/2021 174 08/21/2020 137 HDL Cholesterol (mg/dL) Date Value 07/04/2022 62 01/24/2022 66 06/23/2021 59 08/21/2020 61 LDL Cholesterol (mg/dL) Date Value 07/04/2022 64 01/24/2022 80 06/23/2021 84 08/21/2020 53 Triglyceride (mg/dL) Date Value 07/04/2022 159 01/24/2022 146 06/23/2021 155 08/21/2020 115 Hypothyroidism. She is stable on levothyroxine. TSH Date Value 12/08/2022 1.110 mIU/L 07/04/2022 3.770 mIU/L 12/03/2020 2.670 uU/mL 03/25/2020 1.870 uU/mL ) Ms. Ghosh indicates that she is without headache, chest pain, palpitations, dyspnea, peripheral edema, orthopnea, fatigue and PND. Last 14 Encounter BP Readings: Date: BP: 01/09/2023 118/68 12/08/2022 118/70 09/16/2022 110/68 08/02/2022 104/60 06/24/2022 122/82 01/24/2022 134/70 10/01/2021 122/80 06/23/2021 122/80 03/23/2021 128/82 03/08/2021 103/71 03/05/2021 124/87 02/25/2021 103/52 02/16/2021 128/86 02/10/2021 124/72 Notes small skin lesion left earlobe not yet healed, present about one week. Continues to follow-up at [facility] for behavioral health. States this is going well. Review of Systems Constitutional: Negative. Objective BP 118/68 Pulse 100 Resp 16 Wt 93.9 kg (207 lb) LMP (LMP Unknown) BMI 40.43 kg/m? Physical Exam Vitals and nursing note reviewed. Constitutional: Appearance: Normal appearance. HENT: Head: Normocephalic and atraumatic. Ears: Comments: ~1/8 skin lesion, c/w former pimple, red wound base Eyes: Conjunctiva/sclera: Conjunctivae normal. Neck: Thyroid: No thyromegaly. Vascular: Normal carotid pulses. No JVD. Cardiovascular: Rate and Rhythm: Tachycardia present. Pulses: Carotid pulses are 2+ on the right side and 2+ on the left side. Radial pulses are 2+ on the right side and 2+ on the left side. Heart sounds: Normal heart sounds. Pulmonary: Effort: Pulmonary effort is normal. Breath sounds: Normal breath sounds. Musculoskeletal: Right lower leg: No edema. Left lower leg: No edema. Feet: Right foot: Protective Sensation: 10 sites tested. 10 sites sensed. Skin integrity: Skin integrity normal. Left foot: Protective Sensation: 10 sites tested. 10 sites sensed. Skin integrity: Skin integrity normal. Skin: General: Skin is warm and dry. Neurological: Mental Status: She is alert. Mental status is at baseline. ALLERGIES Allergen Reactions Latex Hives Hydromorphone GI Upset, Vomiting vomit Seasonal Allergies Other: See Comments Medications dulaglutide (TRULICITY) 1.5 mg/0.5 mL pen injector Inject 1.5 mg subcutaneously one time a week. insulin glargine (LANTUS SOLOSTAR U-100 INSULIN) 100 unit/mL (3 mL) Inject 26 Units subcutaneously every morning. metFORMIN ER (GLUCOPHAGE XR) 500 mg 24 hr tablet Take 1 tablet by mouth twice daily before meals. cyanocobalamin (VITAMIN B- (more content not included)... [facility] 12-28-2022 Note HNO ID: [id number] Author: Braxton Modi RPh Service: ? Author Type: Pharmacist Type: Progress Notes Filed: 12/28/2022 10:48 AM Note Text: Primary Care Pharmacy Visit CC (Reason for Consult): (E11.40) Controlled type 2 diabetes mellitus with diabetic neuropathy, without long-term current use of insulin (HCC) (primary encounter diagnosis) Goal(s): A1C < 7% Last Collaborating Provider Visit: 12/08/22 Jodie Ghosh is a 52 year old female presenting for follow up visit by telephone. Patient consents to pharmacy collaborative practice agreement. . HPI: Jodie Ghosh attends today's appointment by telephone. she is a [place] White FEMALE who is AANDO x3, pleasant, and cooperative. Today, she states that her chief concern is I'm doing much better. Loose stools have improved, and she is tolerating the Trulicity. AMFB mg/dL this AM, 115 - 300 mg/dL. She notes she is watching her diet and her portion sizes and has been very diligent about her sugars over the last 2 weeks. She is very happy with the improvement in her control. Date range Overall AVG 12a-6a 6a-12p 12p-6p 6p-12a TIME IN RANGE 7 day 7 day 158 166 183 153 183 ABOVE 36% 14 day 186 186 199 166 200 IN (80-180) 64% 30 day - - - - - BELOW 0% 90 day - - - - - Does admit she had stomach ache, generalized pain, and headache yesterday Past medical history reviewed. ALLERGIES Allergen Reactions Latex Hives Hydromorphone GI Upset vomit Seasonal Allergies Other: See Comments Current Outpatient Medications Medication Sig Dispense Refill insulin glargine (LANTUS SOLOSTAR U-100 INSULIN) 100 unit/mL (3 mL) Inject 26 Units subcutaneously every morning. 30 mL 5 dulaglutide (TRULICITY) 0.75 mg/0.5 mL pen injector Inject 0.75 mg subcutaneously one time a week. 2 mL 1 metFORMIN ER (GLUCOPHAGE XR) 500 mg 24 hr tablet Take 1 tablet by mouth twice daily before meals. 180 tablet 3 pregabalin (LYRICA) 100 mg capsule Take 1 capsule by mouth twice daily for 90 days. 60 capsule 2 cyanocobalamin (VITAMIN B-12) 1,000 mcg tab Take 1 tablet by mouth once daily. 30 tablet 11 flash glucose sensor (FREESTYLE JALIL 14 DAY SENSOR) kit Apply one sensor to the back of the upper arm. Remove sensor after [address] new sensor on alternate arm. 2 Kit 11 fluticasone (FLONASE) 50 mcg/actuation nasal spray Use 2 Sprays in each nostril daily at bedtime. 1 Each 11 TRINTELLIX 10 mg tablet Take 1 tablet by mouth once daily. Alpha Lipoic Acid 600 mg cap Take 1 capsule by mouth once daily. 30 capsule 11 Magnesium Oxide 500 mg tab Take 1 tablet by mouth once daily. 30 tablet 5 atorvastatin (LIPITOR) 10 mg tablet Take 1 tablet by mouth once daily. For cholesterol. 90 tablet 3 levothyroxine (SYNTHROID) 25 mcg tablet Take 1 tablet by mouth once daily. Take on empty stomach. For thyroid. 30 tablet 11 Insulin [place], Disposable, (NOVOFINE 32) 32 gauge x 1/4 Inject 1 Each subcutaneously once daily. USE ONE NEEDLE DAILY FOR DOSE OF GLARGINE Dx E11.65 100 Each 5 albuterol HFA (PROVENTIL HFA, VENTOLIN HFA) 90 mcg/actuation inhaler Inhale 2 Puffs as instructed every 4 hours as needed for wheezing/shortness of breath. 1 Inhaler 0 traZODone HCl 300 mg tablet Take 1 tablet by mouth daily at bedtime. lamoTRIgine (LAMICTAL) 150 mg tablet Take 150 mg by mouth once daily. blood sugar diagnostic (FREESTYLE LITE STRIPS) test strip Test blood sugar(s) 1-2 times daily. Dx: e11.65, Z79.4. Insulin: yes 50 Strip 11 COMPOUNDED PRESCRIPTION Diabetic Shoes--fitted with inserts for flat feet, 1 pair Diagnosis: (M21.41, M21.42) Pes planus of both feet ; (E11.40) Controlled type 2 diabetes mellitus with diabetic neuropathy, without long-term current use of insulin ([facility]) 1 Each 0 flash glucose scanning reader (FREESTYLE JALIL 14 DAY READER) misc 1 Device once daily. 1 Each 0 No current facility-administered medications for this visit. EXAM: LMP (LMP Unknown) Last 3 Encounter BP Readings: Date: BP: 12/08/2022 118/70 09/16/2022 110/68 08/02/2022 104/60 Wt: 94.3 kg (208 lb) BMI: 40.62 kg/(m2) LABS: Lab Results Component Value Date HBA1C 9.2 12/08/2022 HBA1C 7.7 07/04/2022 HBA1C 11.6 01/24/2022 HBA1C 8.8 06/23/2021 HBA1C 8.8 12/03/2020 HBA1C 7.8 08/21/2020 Glucose 268 07/04/2022 BUN 9 07/04/2022 Creatinine, Whole Blood (iSTAT) 0.63 07/04/2022 Sodium 143 07/04/2022 Potassium 4.5 07/04/2022 Chloride 103 07/04/2022 CO2 26 07/04/2022 Protein, Total 6.3 07/04/2022 Albumin 3.9 07/04/2022 Calcium 8.7 07/04/2022 Alkaline Phosphatase 89 07/04/2022 Bilirubin, Total 0.2 07/04/2022 AST 20 07/04/2022 ALT 17 07/04/2022 Lab Results Component Value Date CHOL 158 07/04/2022 CHOL 174 06/23/2021 LDL 64 07/04/2022 LDL 84 06/23/2021 HDL 62 07/04/2022 HDL 59 06/23/2021 TG 159 07/04/2022 TG 155 06/23/2021 Albumin/Creat Ratio (mg/g) Date Value 12/08/2022 <9 eGFR-All Other Races Date Value 03/09/2021 >60 (more content not included)... [facility] 12-28-2022 History of Present illness Narrative Primary Care Pharmacy Visit CC (Reason for Consult): (E11.40) Controlled type 2 diabetes mellitus with diabetic neuropathy, without long-term current use of insulin (HCC) (primary encounter diagnosis) Goal(s): A1C < 7% Last Collaborating Provider Visit: 12/08/22 Jodie Ghosh is a 52 year old female presenting for follow up visit by telephone. Patient consents to pharmacy collaborative practice agreement. . HPI: Jodie Ghosh attends today's appointment by telephone. she is a [place] White FEMALE who is A&O x3, pleasant, and cooperative. Today, she states that her chief concern is I'm doing much better. Loose stools have improved, and she is tolerating the Trulicity. AMFB mg/dL this AM, 115 - 300 mg/dL. She notes she is watching her diet and her portion sizes and has been very diligent about her sugars over the last 2 weeks. She is very happy with the improvement in her control. Date range Overall AVG 12a-6a 6a-12p 12p-6p 6p-12a TIME IN RANGE 7 day 7 day 158 166 183 153 183 ABOVE 36% 14 day 186 186 199 166 200 IN (80-180) 64% 30 day - - - - - BELOW 0% 90 day - - - - - Does admit she had stomach ache, generalized pain, and headache yesterday Past medical history reviewed. ALLERGIES Allergen Reactions Latex Hives Hydromorphone GI Upset vomit Seasonal Allergies Other: See Comments Current Outpatient Medications Medication Sig Dispense Refill insulin glargine (LANTUS SOLOSTAR U-100 INSULIN) 100 unit/mL (3 mL) Inject 26 Units subcutaneously every morning. 30 mL 5 dulaglutide (TRULICITY) 0.75 mg/0.5 mL pen injector Inject 0.75 mg subcutaneously one time a week. 2 mL 1 metFORMIN ER (GLUCOPHAGE XR) 500 mg 24 hr tablet Take 1 tablet by mouth twice daily before meals. 180 tablet 3 pregabalin (LYRICA) 100 mg capsule Take 1 capsule by mouth twice daily for 90 days. 60 capsule 2 cyanocobalamin (VITAMIN B-12) 1,000 mcg tab Take 1 tablet by mouth once daily. 30 tablet 11 flash glucose sensor (FREESTYLE JALIL 14 DAY SENSOR) kit Apply one sensor to the back of the upper arm. Remove sensor after [address] new sensor on alternate arm. 2 Kit 11 fluticasone (FLONASE) 50 mcg/actuation nasal spray Use 2 Sprays in each nostril daily at bedtime. 1 Each 11 TRINTELLIX 10 mg tablet Take 1 tablet by mouth once daily. Alpha Lipoic Acid 600 mg cap Take 1 capsule by mouth once daily. 30 capsule 11 Magnesium Oxide 500 mg tab Take 1 tablet by mouth once daily. 30 tablet 5 atorvastatin (LIPITOR) 10 mg tablet Take 1 tablet by mouth once daily. For cholesterol. 90 tablet 3 levothyroxine (SYNTHROID) 25 mcg tablet Take 1 tablet by mouth once daily. Take on empty stomach. For thyroid. 30 tablet 11 Insulin [place], Disposable, (NOVOFINE 32) 32 gauge x 1/4 Inject 1 Each subcutaneously once daily. USE ONE NEEDLE DAILY FOR DOSE OF GLARGINE Dx E11.65 100 Each 5 albuterol HFA (PROVENTIL HFA, VENTOLIN HFA) 90 mcg/actuation inhaler Inhale 2 Puffs as instructed every 4 hours as needed for wheezing/shortness of breath. 1 Inhaler 0 traZODone HCl 300 mg tablet Take 1 tablet by mouth daily at bedtime. lamoTRIgine (LAMICTAL) 150 mg tablet Take 150 mg by mouth once daily. blood sugar diagnostic (FREESTYLE LITE STRIPS) test strip Test blood sugar(s) 1-2 times daily. Dx: e11.65, Z79.4. Insulin: yes 50 Strip 11 COMPOUNDED PRESCRIPTION Diabetic Shoes--fitted with inserts for flat feet, 1 pair Diagnosis: (M21.41, M21.42) Pes planus of both feet ; (E11.40) Controlled type 2 diabetes mellitus with diabetic neuropathy, without long-term current use of insulin (HCC) 1 Each 0 flash glucose scanning reader (FREESTYLE JALIL 14 DAY READER) misc 1 Device once daily. 1 Each 0 No current facility-administered medications for this visit. EXAM: LMP (LMP Unknown) Last 3 Encounter BP Readings: Date: BP: 12/08/2022 118/70 09/16/2022 110/68 08/02/2022 104/60 Wt: 94.3 kg (208 lb) BMI: 40.62 kg/(m^2) LABS: Lab Results Component Value Date HBA1C 9.2 12/08/2022 HBA1C 7.7 07/04/2022 HBA1C 11.6 01/24/2022 HBA1C 8.8 06/23/2021 HBA1C 8.8 12/03/2020 HBA1C 7.8 08/21/2020 Glucose 268 07/04/2022 BUN 9 07/04/2022 Creatinine, Whole Blood (iSTAT) 0.63 07/04/2022 Sodium 143 07/04/2022 Potassium 4.5 07/04/2022 Chloride 103 07/04/2022 CO2 26 07/04/2022 Protein, Total 6.3 07/04/2022 Albumin 3.9 07/04/2022 Calcium 8.7 07/04/2022 Alkaline Phosphatase 89 07/04/2022 Bilirubin, Total 0.2 07/04/2022 AST 20 07/04/2022 ALT 17 07/04/2022 Lab Results Component Value Date CHOL 158 07/04/2022 CHOL 174 06/23/2021 LDL 64 07/04/2022 LDL 84 06/23/2021 HDL 62 07/04/2022 HDL 59 06/23/2021 TG 159 07/04/2022 TG 155 06/23/2021 Albumin/Creat Ratio (mg/g) Date Value 12/08/2022 <9 eGFR-All Other Races Date Value 03/09/2021 >60 12/03/2020 >60 . Estimated Glomerular Filtration Rate (mL/min/1.73m ) Date Value 07/04/2022 107 ASSESSMENT/PLAN: 1. Controlled type 2 diabetes mellitus with diabetic neuropathy, without long-term current use of insulin (HCC) - ICD9: 250.60, 357.2, ICD10: E11.40 - Improving control - Continue current medications - Increase dulaglutide (Trulicity) to 1.5 mg weekly - Statin prescribed - atorvastatin - Blood glucose monitoring on a continuous glucose monitoring schedule - Counseled on healthy diet and regular exercise - Follow up in 4 weeks, sooner should any other issues arise. Braxton Modi RPh The majority of the pharmacy visit (> 50%) was spent counseling and/or coordinating care for the patient. interaction: telephonic time was 22 minutes. documented in this encounter [facility] 12-14-2022 Note HNO ID: [id number] Author: Braxton Modi RPh Service: ? Author Type: Pharmacist Type: Progress Notes Filed: 12/14/2022 10:52 AM Note Text: Primary Care Pharmacy Visit CC (Reason for Consult): (E11.40) Controlled type 2 diabetes mellitus with diabetic neuropathy, without long-term current use of insulin (HCC) (primary encounter diagnosis) Goal: A1C < 7% (reasonable to aim for A1C < 6.5% based on age) Last Collaborating Provider Visit: 12/09/22 (Referring provider Nacho Cornell APRN) Jodie Ghosh is a 52 year old female presenting for initial visit: This initial consult was conducted by telephone with the patient where the consult agreement was explained. The patient may decline or cancel the agreement at any time. After consideration, the patient consented to the pharmacy consult agreement and agreed to allow medications be collaboratively managed by a pharmacist.. HPI: Jodie Ghosh attends today's appointment by telephone. she is a [place] White FEMALE who is AANDO x3, pleasant, and cooperative. Today, she states that her chief concern is My sugars are too high. Has had diabetes for >10 years. Notes she previously tried Trulicity but stopped when she was having frequent BMs. This has continued despite stopping the Trulicity. She would like to go back on it to see if that would improve her blood glucose. She notes her brother is on Metformin and has similar issues regarding BMs. She wonders if this is why she is having issues. Diet States she has been working hard - stopped drinking pop all together, stopped bread, eggs. Doesn't eat a lot of meat. Tries to stay away from sugar. States she only takes lamotrigine 150 mg daily. Other medication list is accurate. Sensor usage: 68% (Goal >70%) Hypoglycemia events: 0%, 0 events Date range Overall AVG 12a-6a 6a-12p 12p-6p 6p-12a TIME IN RANGE 7 day 7 day 285 279 275 268 325 ABOVE 92% 14 day 276 272 261 258 311 IN (80-180) 8% 30 day 269 269 261 254 291 BELOW 0% 90 day - - - - - Exercise: Walking ~3x/day with her dog Tobacco: Current smoker - 7-12 cigarettes per day - last quit attempt 3-4 years ago. Wants to quit but main priority is sugar control per her report.She states her apartment building is going to be a nonsmoking building soon, so this is an additional pressure to help her quit. Alcohol: Occasional 2x/week 2-3 beers Caffeine: Brisk iced tea with lemon every day Past medical, family and social history reviewed and updated. MEDICATIONS: Adherence: denies missed doses ALLERGIES Allergen Reactions Latex Hives Hydromorphone GI Upset vomit Seasonal Allergies Other: See Comments Current Outpatient Medications Medication Sig Dispense Refill insulin glargine (LANTUS SOLOSTAR U-100 INSULIN) 100 unit/mL (3 mL) Inject 18 Units subcutaneously every morning. 5 Each 5 pregabalin (LYRICA) 100 mg capsule Take 1 capsule by mouth twice daily for 90 days. 60 capsule 2 cyanocobalamin (VITAMIN B-12) 1,000 mcg tab Take 1 tablet by mouth once daily. 30 tablet 11 flash glucose sensor (VirdiaSTYLE JALIL 14 DAY SENSOR) kit Apply one sensor to the back of the upper arm. Remove sensor after [address] new sensor on alternate arm. 2 Kit 11 fluticasone (FLONASE) 50 mcg/actuation nasal spray Use 2 Sprays in each nostril daily at bedtime. 1 Each 11 TRINTELLIX 10 mg tablet Take 1 tablet by mouth once daily. metFORMIN ER (GLUCOPHAGE XR) 500 mg 24 hr tablet Take 2 tablets by mouth twice daily before meals. 120 tablet 11 Alpha Lipoic Acid 600 mg cap Take 1 capsule by mouth once daily. 30 capsule 11 Magnesium Oxide 500 mg tab Take 1 tablet by mouth once daily. 30 tablet 5 atorvastatin (LIPITOR) 10 mg tablet Take 1 tablet by mouth once daily. For cholesterol. 90 tablet 3 levothyroxine (SYNTHROID) 25 mcg tablet Take 1 tablet by mouth once daily. Take on empty stomach. For thyroid. 30 tablet 11 Insulin [place], Disposable, (NOVOFINE 32) 32 gauge x 1/4 Inject 1 Each subcutaneously once daily. USE ONE NEEDLE DAILY FOR DOSE OF GLARGINE Dx E11.65 100 Each 5 albuterol HFA (PROVENTIL HFA, VENTOLIN HFA) 90 mcg/actuation inhaler Inhale 2 Puffs as instructed every 4 hours as needed for wheezing/shortness of breath. 1 Inhaler 0 traZODone HCl 300 mg tablet Take 1 tablet by mouth daily at bedtime. lamoTRIgine (LAMICTAL) 150 mg tablet Take 150 mg by mouth twice daily. Weaning off medication blood sugar diagnostic (FREESTYLE LITE STRIPS) test strip Test blood sugar(s) 1-2 times daily. Dx: e11.65, Z79.4. Insulin: yes 50 Strip 11 COMPOUNDED PRESCRIPTION Diabetic Shoes--fitted with inserts for flat feet, 1 pair Diagnosis: (M21.41, M21.42) Pes planus of both feet ; (E11.40) Controlled type 2 diabetes mellitus with diabetic neuropathy, without long-term current use of insulin (HCC) 1 Each 0 flash glucose scanning reader (FREESTYLE JALIL 14 DAY READER) misc 1 Device once daily. 1 Each 0 No current facility-ad (more content not included)... [facility] 12-14-2022 History of Present illness Narrative Primary Care Pharmacy Visit CC (Reason for Consult): (E11.40) Controlled type 2 diabetes mellitus with diabetic neuropathy, without long-term current use of insulin (HCC) (primary encounter diagnosis) Goal: A1C < 7% (reasonable to aim for A1C < 6.5% based on age) Last Collaborating Provider Visit: 12/09/22 (Referring provider Nacho Cornell APRN) Jodie Ghosh is a 52 year old female presenting for initial visit: This initial consult was conducted by telephone with the patient where the consult agreement was explained. The patient may decline or cancel the agreement at any time. After consideration, the patient consented to the pharmacy consult agreement and agreed to allow medications be collaboratively managed by a pharmacist.. HPI: Jodie Ghosh attends today's appointment by telephone. she is a [place] White FEMALE who is A&O x3, pleasant, and cooperative. Today, she states that her chief concern is My sugars are too high. Has had diabetes for >10 years. Notes she previously tried Trulicity but stopped when she was having frequent BMs. This has continued despite stopping the Trulicity. She would like to go back on it to see if that would improve her blood glucose. She notes her brother is on Metformin and has similar issues regarding BMs. She wonders if this is why she is having issues. Diet States she has been working hard - stopped drinking pop all together, stopped bread, eggs. Doesn't eat a lot of meat. Tries to stay away from sugar. States she only takes lamotrigine 150 mg daily. Other medication list is accurate. Sensor usage: 68% (Goal >70%) Hypoglycemia events: 0%, 0 events Date range Overall AVG 12a-6a 6a-12p 12p-6p 6p-12a TIME IN RANGE 7 day 7 day 285 279 275 268 325 ABOVE 92% 14 day 276 272 261 258 311 IN (80-180) 8% 30 day 269 269 261 254 291 BELOW 0% 90 day - - - - - Exercise: Walking ~3x/day with her dog Tobacco: Current smoker - 7-12 cigarettes per day - last quit attempt 3-4 years ago. Wants to quit but main priority is sugar control per her report.She states her apartment building is going to be a nonsmoking building soon, so this is an additional pressure to help her quit. Alcohol: Occasional 2x/week 2-3 beers Caffeine: Brisk iced tea with lemon every day Past medical, family and social history reviewed and updated. MEDICATIONS: Adherence: denies missed doses ALLERGIES Allergen Reactions Latex Hives Hydromorphone GI Upset vomit Seasonal Allergies Other: See Comments Current Outpatient Medications Medication Sig Dispense Refill insulin glargine (LANTUS SOLOSTAR U-100 INSULIN) 100 unit/mL (3 mL) Inject 18 Units subcutaneously every morning. 5 Each 5 pregabalin (LYRICA) 100 mg capsule Take 1 capsule by mouth twice daily for 90 days. 60 capsule 2 cyanocobalamin (VITAMIN B-12) 1,000 mcg tab Take 1 tablet by mouth once daily. 30 tablet 11 flash glucose sensor (FREESTYLE JALIL 14 DAY SENSOR) kit Apply one sensor to the back of the upper arm. Remove sensor after [address] new sensor on alternate arm. 2 Kit 11 fluticasone (FLONASE) 50 mcg/actuation nasal spray Use 2 Sprays in each nostril daily at bedtime. 1 Each 11 TRINTELLIX 10 mg tablet Take 1 tablet by mouth once daily. metFORMIN ER (GLUCOPHAGE XR) 500 mg 24 hr tablet Take 2 tablets by mouth twice daily before meals. 120 tablet 11 Alpha Lipoic Acid 600 mg cap Take 1 capsule by mouth once daily. 30 capsule 11 Magnesium Oxide 500 mg tab Take 1 tablet by mouth once daily. 30 tablet 5 atorvastatin (LIPITOR) 10 mg tablet Take 1 tablet by mouth once daily. For cholesterol. 90 tablet 3 levothyroxine (SYNTHROID) 25 mcg tablet Take 1 tablet by mouth once daily. Take on empty stomach. For thyroid. 30 tablet 11 Insulin [place], Disposable, (NOVOFINE 32) 32 gauge x 1/4 Inject 1 Each subcutaneously once daily. USE ONE NEEDLE DAILY FOR DOSE OF GLARGINE Dx E11.65 100 Each 5 albuterol HFA (PROVENTIL HFA, VENTOLIN HFA) 90 mcg/actuation inhaler Inhale 2 Puffs as instructed every 4 hours as needed for wheezing/shortness of breath. 1 Inhaler 0 traZODone HCl 300 mg tablet Take 1 tablet by mouth daily at bedtime. lamoTRIgine (LAMICTAL) 150 mg tablet Take 150 mg by mouth twice daily. Weaning off medication blood sugar diagnostic (FREESTYLE LITE STRIPS) test strip Test blood sugar(s) 1-2 times daily. Dx: e11.65, Z79.4. Insulin: yes 50 Strip 11 COMPOUNDED PRESCRIPTION Diabetic Shoes--fitted with inserts for flat feet, 1 pair Diagnosis: (M21.41, M21.42) Pes planus of both feet ; (E11.40) Controlled type 2 diabetes mellitus with diabetic neuropathy, without long-term current use of insulin ([facility]) 1 Each 0 flash glucose scanning reader (FREESTYLE JALIL 14 DAY READER) misc 1 Device once daily. 1 Each 0 No current facility-administered medications for this visit. EXAM: LMP (LMP Unknown) Last 3 Encounter BP Readings: Date: BP: 12/08/2022 118/70 09/16/2022 110/68 08/02/2022 104/60 Wt: 94.3 kg (208 lb) BMI: 40.62 kg/(m^2) LABS: reviewed Lab Results Component Value Date HBA1C 9.2 12/08/2022 HBA1C 7.7 07/04/2022 HBA1C 11.6 01/24/2022 HBA1C 8.8 06/23/2021 HBA1C 8.8 12/03/2020 HBA1C 7.8 08/21/2020 Glucose 268 07/04/2022 BUN 9 07/04/2022 Creatinine, Whole Blood (iSTAT) 0.63 07/04/2022 Sodium 143 07/04/2022 Potassium 4.5 07/04/2022 Chloride 103 07/04/2022 CO2 26 07/04/2022 Protein, Total 6.3 07/04/2022 Albumin 3.9 07/04/2022 Calcium 8.7 07/04/2022 Alkaline Phosphatase 89 07/04/2022 Bilirubin, Total 0.2 07/04/2022 AST 20 07/04/2022 ALT 17 07/04/2022 Lab Results Component Value Date CHOL 158 07/04/2022 CHOL 174 06/23/2021 LDL 64 07/04/2022 LDL 84 06/23/2021 HDL 62 07/04/2022 HDL 59 06/23/2021 TG 159 07/04/2022 TG 155 06/23/2021 Albumin/Creat Ratio (mg/g) Date Value 12/08/2022 <9 eGFR-All Other Races Date Value 03/09/2021 >60 12/03/2020 >60 . Estimated Glomerular Filtration Rate (mL/min/1.73m ) Date Value 07/04/2022 107 ASSESSMENT/PLAN: 1. Controlled type 2 diabetes mellitus with diabetic neuropathy, without long-term current use of insulin ([facility]) - ICD9: 250.60, 357.2, ICD10: E11.40 - Uncontrolled - Decrease metformin ER 1 tablet twice daily - Start dulaglutide (Trulicity) 0.75 mg one time weekly - Increase Insulin glargine (Lantus/Basaglar/Toujeo) to 26 units one time daily - Statin prescribed - atorvastatin - Blood glucose monitoring on a three times daily and four times daily schedule - Counseled on healthy diet and regular exercise - Follow up in 2 weeks, sooner should any other issues arise. - Counseled on tobacco cessation - she is contemplative at this time. Wants to quit but will focus on tobacco use after her sugars are better controlled. Follow up: See patient instructions. Braxton Modi RPh The majority of the pharmacy visit (> 50%) was spent counseling and/or coordinating care for the patient. interaction: telephonic time was 45 minutes. documented in this encounter [facility] 12-12-2022 Miscellaneous Notes Patient calls to request refill of freestyle Jalil 14 day sensor kit reporting there is no refills at the pharmacy. Call placed to [facility] pharmacy and they will fill the prescription on file from 09/16/2022. Erin Templeton RN documented in this encounter [facility] 12-08-2022 Note HNO ID: [id number] Author: Nacho Cornell APRN.DIFFERENTIAL TESTER Service: ? Author Type: Nurse Specialist Type: Progress Notes Filed: 12/08/2022 2:25 PM Note Text: SUBJECTIVE: HEPATITIS B(1 of 3 - 3-dose series) Never done SPIROMETRY Never done DTAP,TDAP,TD(1 - Tdap) Never done SHINGRIX VACCINE(1 of 2) Never done DILATED RETINAL EXAM due on 09/17/2021 MAMMOGRAM due on 11/03/2021 URINE ALBUMIN:CREATININE RATIO due on 06/23/2022 HPI Jodie Ghosh is a 52 year old female. PMH signficiant for ACTIVE PROBLEM LIST Hypothyroidism Controlled Type 2 Diabetes Mellitus With Diabetic Neuropathy, Without Long-Term Current Use of Insulin (Hcc) Schizoaffective Disorder, Bipolar Type (Hcc) Chronic Bilateral Low Back Pain Without Sciatica Neck Pain, Chronic Morbid Obesity With Bmi of 45.0-49.9, Adult (Hcc) Diabetic Neuropathy (Hcc) Pes Cavus Diminished Pulses in Lower Extremity Tobacco Use Disorder Asthma Endometrial Adenocarcinoma (Hcc) Sleep Apnea Presents today for routine follow-up visit. Notes continued DIABETES MELLITUS: She notes glucose has been running in controlled range Patient's last HgA1C was Hemoglobin A1C (%) Date Value 07/04/2022 7.7 01/24/2022 11.6 06/23/2021 8.8 12/03/2020 8.8 ) Last 14 Encounter BP Readings: Date: BP: 09/16/2022 110/68 08/02/2022 104/60 06/24/2022 122/82 01/24/2022 134/70 10/01/2021 122/80 06/23/2021 122/80 03/23/2021 128/82 03/08/2021 103/71 03/05/2021 124/87 02/25/2021 103/52 02/16/2021 128/86 02/10/2021 124/72 01/21/2021 126/70 01/20/2021 116/76 Hyperlipidemia. Ms. Ghosh reports doing well on current therapy. Her most recent lipid panels are: Cholesterol, Total (mg/dL) Date Value 07/04/2022 158 01/24/2022 175 06/23/2021 174 08/21/2020 137 HDL Cholesterol (mg/dL) Date Value 07/04/2022 62 01/24/2022 66 06/23/2021 59 08/21/2020 61 LDL Cholesterol (mg/dL) Date Value 07/04/2022 64 01/24/2022 80 06/23/2021 84 08/21/2020 53 Triglyceride (mg/dL) Date Value 07/04/2022 159 01/24/2022 146 06/23/2021 155 08/21/2020 115 Hypothyroidism. She is stable on levothyroxine. TSH Date Value 07/04/2022 3.770 mIU/L 01/24/2022 1.770 mIU/L 12/03/2020 2.670 uU/mL 03/25/2020 1.870 uU/mL ) Ms. Ghosh indicates that she is without headache, chest pain, palpitations, dyspnea, peripheral edema, orthopnea, fatigue and PND. Last 14 Encounter BP Readings: Date: BP: 12/08/2022 118/70 09/16/2022 110/68 08/02/2022 104/60 06/24/2022 122/82 01/24/2022 134/70 10/01/2021 122/80 06/23/2021 122/80 03/23/2021 128/82 03/08/2021 103/71 03/05/2021 124/87 02/25/2021 103/52 02/16/2021 128/86 02/10/2021 124/72 01/21/2021 126/70 Continues to follow[facility]up [facility]. States this is going well. Review of Systems Constitutional: Negative. Objective BP 118/70 Pulse 93 Resp 16 Wt 94.3 kg (208 lb) LMP (LMP Unknown) SpO2 96% BMI 40.62 kg/m? Physical Exam Vitals and nursing note reviewed. Constitutional: Appearance: Normal appearance. HENT: Head: Normocephalic and atraumatic. Eyes: Conjunctiva/sclera: Conjunctivae normal. Neck: Thyroid: No thyromegaly. Vascular: Normal carotid pulses. No JVD. Cardiovascular: Rate and Rhythm: Tachycardia present. Pulses: Carotid pulses are 2+ on the right side and 2+ on the left side. Radial pulses are 2+ on the right side and 2+ on the left side. Heart sounds: Normal heart sounds. Pulmonary: Effort: Pulmonary effort is normal. Breath sounds: Normal breath sounds. Musculoskeletal: Right lower leg: No edema. Left lower leg: No edema. Feet: Right foot: Protective Sensation: 10 sites tested. 10 sites sensed. Skin integrity: Skin integrity normal. Left foot: Protective Sensation: 10 sites tested. 10 sites sensed. Skin integrity: Skin integrity normal. Skin: General: Skin is warm and dry. Neurological: Mental Status: She is alert. Mental status is at baseline. ALLERGIES Allergen Reactions Latex Hives Hydromorphone GI Upset vomit Seasonal Allergies Other: See Comments Medications cyanocobalamin (VITAMIN B-12) 1,000 mcg tab Take 1 tablet by mouth once daily. flash glucose sensor (VirdiaSTYLE JALIL 14 DAY SENSOR) kit Apply one sensor to the back of the upper arm. Remove sensor after [address] new sensor on alternate arm. fluticasone (FLONASE) 50 mcg/actuation nasal spray Use 2 Sprays in each nostril daily at bedtime. TRINTELLIX 10 mg tablet Take 1 tablet by mouth once daily. metFORMIN ER (GLUCOPHAGE XR) 500 mg 24 hr tablet Take 2 tablets by mouth twice daily before meals. Alpha Lipoic Acid 600 mg cap Take 1 capsule by mouth once daily. Magnesium Oxide 500 mg tab Take 1 tablet by mouth once daily. atorvastatin (LIPITOR) 10 mg tablet Take 1 tablet by mouth once daily. For cholesterol. insulin glargine (LANTUS SOLOSTAR U-100 INSULIN) 100 unit/mL (3 (more content not included)... [facility] 12-08-2022 Instructions Nacho Cornell APRN.CNS - 12/08/2022 12:27 PM EDT Increase pregabalin from 75 mg twice daily to 100 mg twice daily documented in this encounter [facility] 12-08-2022 History of Present illness Narrative SUBJECTIVE: HEPATITIS B(1 of 3 - 3-dose series) Never done SPIROMETRY Never done DTAP,TDAP,TD(1 - Tdap) Never done SHINGRIX VACCINE(1 of 2) Never done DILATED RETINAL EXAM due on 09/17/2021 MAMMOGRAM due on 11/03/2021 URINE ALBUMIN:CREATININE RATIO due on 06/23/2022 HPI Jodie Ghosh is a 52 year old female. PMH signficiant for ACTIVE PROBLEM LIST Hypothyroidism Controlled Type 2 Diabetes Mellitus With Diabetic Neuropathy, Without Long-Term Current Use of Insulin (Hcc) Schizoaffective Disorder, Bipolar Type (Hcc) Chronic Bilateral Low Back Pain Without Sciatica Neck Pain, Chronic Morbid Obesity With Bmi of 45.0-49.9, Adult (Hcc) Diabetic Neuropathy (Hcc) Pes Cavus Diminished Pulses in Lower Extremity Tobacco Use Disorder Asthma Endometrial Adenocarcinoma (Hcc) Sleep Apnea Presents today for routine follow-up visit. Notes continued DIABETES MELLITUS: She notes glucose has been running in controlled range Patient's last HgA1C was Hemoglobin A1C (%) Date Value 07/04/2022 7.7 01/24/2022 11.6 06/23/2021 8.8 12/03/2020 8.8 ) Last 14 Encounter BP Readings: Date: BP: 09/16/2022 110/68 08/02/2022 104/60 06/24/2022 122/82 01/24/2022 134/70 10/01/2021 122/80 06/23/2021 122/80 03/23/2021 128/82 03/08/2021 103/71 03/05/2021 124/87 02/25/2021 103/52 02/16/2021 128/86 02/10/2021 124/72 01/21/2021 126/70 01/20/2021 116/76 Hyperlipidemia. Ms. Ghosh reports doing well on current therapy. Her most recent lipid panels are: Cholesterol, Total (mg/dL) Date Value 07/04/2022 158 01/24/2022 175 06/23/2021 174 08/21/2020 137 HDL Cholesterol (mg/dL) Date Value 07/04/2022 62 01/24/2022 66 06/23/2021 59 08/21/2020 61 LDL Cholesterol (mg/dL) Date Value 07/04/2022 64 01/24/2022 80 06/23/2021 84 08/21/2020 53 Triglyceride (mg/dL) Date Value 07/04/2022 159 01/24/2022 146 06/23/2021 155 08/21/2020 115 Hypothyroidism. She is stable on levothyroxine. TSH Date Value 07/04/2022 3.770 mIU/L 01/24/2022 1.770 mIU/L 12/03/2020 2.670 uU/mL 03/25/2020 1.870 uU/mL ) Ms. Ghosh indicates that she is without headache, chest pain, palpitations, dyspnea, peripheral edema, orthopnea, fatigue and PND. Last 14 Encounter BP Readings: Date: BP: 12/08/2022 118/70 09/16/2022 110/68 08/02/2022 104/60 06/24/2022 122/82 01/24/2022 134/70 10/01/2021 122/80 06/23/2021 122/80 03/23/2021 128/82 03/08/2021 103/71 03/05/2021 124/87 02/25/2021 103/52 02/16/2021 128/86 02/10/2021 124/72 01/21/2021 126/70 Continues [facility] follow[facility]. States this is going well. Review of Systems Constitutional: Negative. Objective BP 118/70 Pulse 93 Resp 16 Wt 94.3 kg (208 lb) LMP (LMP Unknown) SpO2 96% BMI 40.62 kg/m Physical Exam Vitals and nursing note reviewed. Constitutional: Appearance: Normal appearance. HENT: Head: Normocephalic and atraumatic. Eyes: Conjunctiva/sclera: Conjunctivae normal. Neck: Thyroid: No thyromegaly. Vascular: Normal carotid pulses. No JVD. Cardiovascular: Rate and Rhythm: Tachycardia present. Pulses: Carotid pulses are 2+ on the right side and 2+ on the left side. Radial pulses are 2+ on the right side and 2+ on the left side. Heart sounds: Normal heart sounds. Pulmonary: Effort: Pulmonary effort is normal. Breath sounds: Normal breath sounds. Musculoskeletal: Right lower leg: No edema. Left lower leg: No edema. Feet: Right foot: Protective Sensation: 10 sites tested. 10 sites sensed. Skin integrity: Skin integrity normal. Left foot: Protective Sensation: 10 sites tested. 10 sites sensed. Skin integrity: Skin integrity normal. Skin: General: Skin is warm and dry. Neurological: Mental Status: She is alert. Mental status is at baseline. ALLERGIES Allergen Reactions Latex Hives Hydromorphone GI Upset vomit Seasonal Allergies Other: See Comments Medications cyanocobalamin (VITAMIN B-12) 1,000 mcg tab Take 1 tablet by mouth once daily. flash glucose sensor (VirdiaSTYLE JALIL 14 DAY SENSOR) kit Apply one sensor to the back of the upper arm. Remove sensor after [address] new sensor on alternate arm. fluticasone (FLONASE) 50 mcg/actuation nasal spray Use 2 Sprays in each nostril daily at bedtime. TRINTELLIX 10 mg tablet Take 1 tablet by mouth once daily. metFORMIN ER (GLUCOPHAGE XR) 500 mg 24 hr tablet Take 2 tablets by mouth twice daily before meals. Alpha Lipoic Acid 600 mg cap Take 1 capsule by mouth once daily. Magnesium Oxide 500 mg tab Take 1 tablet by mouth once daily. atorvastatin (LIPITOR) 10 mg tablet Take 1 tablet by mouth once daily. For cholesterol. insulin glargine (LANTUS SOLOSTAR U-100 INSULIN) 100 unit/mL (3 mL) Inject 16 Units subcutaneously every morning. levothyroxine (SYNTHROID) 25 mcg tablet Take 1 tablet by mouth once daily. Take on empty stomach. For thyroid. Insulin [place], Disposable, (NOVOFINE 32) 32 gauge x 1/4 Inject 1 Each subcutaneously once daily. USE ONE NEEDLE DAILY FOR DOSE OF GLARGINE Dx E11.65 albuterol HFA (PROVENTIL HFA, VENTOLIN HFA) 90 mcg/actuation inhaler Inhale 2 Puffs as instructed every 4 hours as needed for wheezing/shortness of breath. traZODone HCl 300 mg tablet Take 1 tablet by mouth daily at bedtime. lamoTRIgine (LAMICTAL) 150 mg tablet Take 150 mg by mouth twice daily. Weaning off medication blood sugar diagnostic (FREESTYLE LITE STRIPS) test strip Test blood sugar(s) 1-2 times daily. Dx: e11.65, Z79.4. Insulin: yes COMPOUNDED PRESCRIPTION Diabetic Shoes--fitted with inserts for flat feet, 1 pair Diagnosis: (M21.41, M21.42) Pes planus of both feet ; (E11.40) Controlled type 2 diabetes mellitus with diabetic neuropathy, without long-term current use of insulin ([facility]) flash glucose scanning reader (FREESTYLE JALIL 14 DAY READER) misc 1 Device once daily. pregabalin (LYRICA) 100 mg capsule Take 1 capsule by mouth twice daily for 90 days. acetaminophen (TYLENOL EXTRA STRENGTH) 500 mg tablet Take 2 tablets by mouth every 6 hours as needed for pain. (Patient not taking: No sig reported) ibuprofen (MOTRIN) 600 mg tablet Take 1 tablet by mouth every 6 hours as needed for pain. (Patient not taking: No sig reported) busPIRone (BUSPAR) 10 mg tablet Take 10 mg by mouth twice daily. (Patient not taking: Reported on 12/08/2022) PAST MEDICAL HISTORY Diagnosis Date Adjustment disorder with depressed mood Anxiety disorder in conditions classified elsewhere Asthma 03/31/2019 mild well controlled Degenerative disc disease, lumbar Diabetes mellitus type II Diabetic neuropathy ([facility]) 12/11/2017 feet only Endometrial cancer ([facility]) Fibromyalgia Hypothyroidism Insomnia, unspecified Lazy eye since Menopause Morbid obesity with BMI of 45.0-49.9, adult ([facility]) 03/29/2017 Schizoaffective disorder, bipolar type ([facility]) 04/14/2015 states no longer Sleep apnea CPAP occasional usage Tobacco use disorder 01/21/2021 Social History Tobacco Use Smoking status: Every Day Packs/day: 1.00 Years: 30.00 Pack years: 30.00 Types: Cigarettes Smokeless tobacco: Never Tobacco comments: 1 ppd x 34 years Vaping Use Vaping Use: Never used Substance Use Topics Alcohol use: Yes Comment: occasionally Drug use: Not Currently Comment: quit cocaine 8 years Component Latest Ref Rng & Units 12/03/2020 02/16/2021 03/09/2021 06/23/2021 Protein, Total 6.3 - 8.0 g/dL 7.3 Albumin 3.9 - 4.9 g/dL 4.2 Calcium 8.5 - 10.2 mg/dL 9.2 9.0 8.2 (L) Bilirubin, Total 0.2 - 1.3 mg/dL 0.6 Alkaline Phosphatase 34 - 123 U/L 104 AST 13 - 35 U/L 30 Glucose 74 - 99 mg/dL 231 (H) 134 (H) 221 (H) BUN 7 - 21 mg/dL 13 12 8 Creatinine 0.58 - 0.96 mg/dL 0.56 (L) 0.57 (L) 0.54 (L) Sodium 136 - 144 mmol/L 138 138 142 Potassium 3.7 - 5.1 mmol/L 4.1 4.2 3.8 Chloride 97 - 105 mmol/L 100 101 105 CO2 22 - 30 mmol/L 24 23 27 Anion Gap 9 - 18 mmol/L 14 14 10 ALT 7 - 38 U/L 29 eGFR- >60 >60 >60 eGFR-All Other Races >60 >60 >60 WBC 3.70 - 11.00 k/uL 12.87 (H) 8.22 10.79 RBC 3.90 - 5.20 m/uL 5.43 (H) 5.38 (H) 4.53 Hemoglobin 11.5 - 15.5 g/dL 16.0 (H) 16.1 (H) 13.4 Hematocrit 36.0 - 46.0 % 48.5 (H) 48.2 (H) 41.0 MCV 80.0 - 100.0 fL 89.3 89.6 90.5 MCH 26.0 - 34.0 pg 29.5 29.9 29.6 MCHC 30.5 - 36.0 g/dL 33.0 33.4 32.7 RDW-CV 11.5 - 15.0 % 13.6 13.4 13.1 Platelet Count 150 - 400 k/uL 216 194 171 MPV 9.0 - 12.7 fL 11.1 9.9 10.2 Absolute nRBC <0.01 k/uL <0.01 <0.01 <0.01 Cholesterol, Total <200 mg/dL 174 Triglyceride <150 mg/dL 155 (H) HDL Cholesterol >39 mg/dL 59 LDL Cholesterol <100 mg/dL 84 Non HDL Cholesterol <130 mg/dL 115 Fasting Time hrs 24 VLDL Cholesterol <30 mg/dL 31 (H) TC:HDL Ratio <5.10 2.95 LDL:HDL Ratio <2.54 1.42 Creatinine, Ur Random (UCRR) 20 - 300 mg/dL 102.4 Albumin, Urine Random mg/L <12.0 Albumin/Creat Ratio <30 mg/g Not calculated Hemoglobin A1C 4.3 - 5.6 % 8.8 (H) Estimated Average Glucose mg/dL 206 TSH 0.270 - 4.200 uU/mL 2.670 ASSESSMENT/PLAN: 1. Type 2 diabetes mellitus with diabetic neuropathy, with long-term current use of insulin (HCC) - ICD9: 250.60, 357.2, V58.67, ICD10: E11.40, Z79.4 (primary diagnosis) She notes symptoms consistent with neuropathy of her feet. We will increase her dose of pregabalin from 75 mg twice daily to 100 mg twice daily and see in 1 month - ALBUMIN/CREAT RATIO RND UR - HGB A1C - PREGABALIN 100 MG CAPSULE 2. Encounter for immunization - ICD9: V03.89, ICD10: Z23 - TDAP VACCINE, AGE 7+ YR (ADACEL, BOOSTRIX) - ZOSTER VACCINE, RECOMBINANT (SHINGRIX) 3. Acquired hypothyroidism - ICD9: 244.9, ICD10: E03.9 Weight is stable, continue current medication unchanged for now. Stable, currently controlled, continue to monitor. - TSH BLD 4. Endometrial adenocarcinoma (HCC) - ICD9: 182.0, ICD10: C54.1 5. Class 3 severe obesity due to excess calories with body mass index (BMI) of 40.0 to 44.9 in adult, unspecified whether serious comorbidity present (HCC) - ICD9: 278.01, V85.41, ICD10: E66.01, Z68.41 endorse plant-based diet such as Mediterranean diet, portion control and routine exercise such as walking Referred to supportive services if so desires 6. Schizoaffective disorder, bipolar type (HCC) - ICD9: 295.70, ICD10: F25.0 Followed by counseling center Labs today Nacho Cornell APRN.CNS Medical Decision Making: Problems: Moderate: 1+ chronic illnesses with change Risk: Moderate: Drug management Medical Decision Making Level: 4 - Moderate documented in this encounter [facility] 09-16-2022 Note HNO ID: [id number] Author: Dino Piedra MD Service: ? Author Type: Physician Type: Progress Notes Filed: 10/17/2022 1:25 AM Note Text: This note was created using [employer]. Subjective Jodie Ghosh is a 52 year old female. Patient presents with: F/U 6 months SUBJECTIVE: Jodie Ghosh is a 52 year old year old lady here today for 6 month follow up appointment for review of medical conditions. Nothing much going on. Feet pain is better. Taking OTC sinus and allergy meds--not sure what is in it. Taking 6 per day. Noted heart rate up today. Does not feel heart racing. Meds have been adjusted by counseling center. Med list updated. PAST MEDICAL HISTORY Diagnosis Date Adjustment disorder with depressed mood Anxiety disorder in conditions classified elsewhere Asthma 03/31/2019 mild well controlled Degenerative disc disease, lumbar Diabetes mellitus type II Diabetic neuropathy ([facility]) 12/11/2017 feet only Endometrial cancer ([facility]) Fibromyalgia Hypothyroidism Insomnia, unspecified Lazy eye since Menopause Morbid obesity with BMI of 45.0-49.9, adult ([facility]) 03/29/2017 Schizoaffective disorder, bipolar type ([facility]) 04/14/2015 states no longer Sleep apnea CPAP occasional usage Tobacco use disorder 01/21/2021 Current Outpatient Medications Medication Sig TRINTELLIX 10 mg tablet Take 1 tablet by mouth once daily. metFORMIN ER (GLUCOPHAGE XR) 500 mg 24 hr tablet Take 2 tablets by mouth twice daily before meals. Alpha Lipoic Acid 600 mg cap Take 1 capsule by mouth once daily. pregabalin (LYRICA) 75 mg capsule Take 1 capsule by mouth twice daily for 60 days. Magnesium Oxide 500 mg tab Take 1 tablet by mouth once daily. atorvastatin (LIPITOR) 10 mg tablet Take 1 tablet by mouth once daily. For cholesterol. insulin glargine (LANTUS SOLOSTAR U-100 INSULIN) 100 unit/mL (3 mL) Inject 16 Units subcutaneously every morning. levothyroxine (SYNTHROID) 25 mcg tablet Take 1 tablet by mouth once daily. Take on empty stomach. For thyroid. Insulin [place], Disposable, (NOVOFINE 32) 32 gauge x 1/4 Inject 1 Each subcutaneously once daily. USE ONE NEEDLE DAILY FOR DOSE OF GLARGINE Dx E11.65 albuterol HFA (PROVENTIL HFA, VENTOLIN HFA) 90 mcg/actuation inhaler Inhale 2 Puffs as instructed every 4 hours as needed for wheezing/shortness of breath. traZODone HCl 300 mg tablet Take 1 tablet by mouth daily at bedtime. lamoTRIgine (LAMICTAL) 150 mg tablet Take 150 mg by mouth twice daily. Weaning off medication busPIRone (BUSPAR) 10 mg tablet Take 10 mg by mouth twice daily. blood sugar diagnostic (FREESTYLE LITE STRIPS) test strip Test blood sugar(s) 1-2 times daily. Dx: e11.65, Z79.4. Insulin: yes COMPOUNDED PRESCRIPTION Diabetic Shoes--fitted with inserts for flat feet, 1 pair Diagnosis: (M21.41, M21.42) Pes planus of both feet ; (E11.40) Controlled type 2 diabetes mellitus with diabetic neuropathy, without long-term current use of insulin ([facility]) flash glucose scanning reader (VirdiaSTYLE JALIL 14 DAY READER) misc 1 Device once daily. cyanocobalamin (VITAMIN B-12) 1,000 mcg tab Take 1 tablet by mouth once daily. flash glucose sensor (FREESTYLE JALIL 14 DAY SENSOR) kit Apply one sensor to the back of the upper arm. Remove sensor after [address] new sensor on alternate arm. fluticasone (FLONASE) 50 mcg/actuation nasal spray Use 2 Sprays in each nostril daily at bedtime. acetaminophen (TYLENOL EXTRA STRENGTH) 500 mg tablet Take 2 tablets by mouth every 6 hours as needed for pain. (Patient not taking: No sig reported) ibuprofen (MOTRIN) 600 mg tablet Take 1 tablet by mouth every 6 hours as needed for pain. (Patient not taking: No sig reported) No current facility-administered medications for this visit. Review of Systems Objective BP 110/68 Pulse (!) 125 Temp 36.7 ?C (98.1 ?F) Resp 18 Wt 93 kg (205 lb) LMP (LMP Unknown) SpO2 96% BMI 40.04 kg/m? Physical Exam Constitutional: Appearance: Normal appearance. She is obese. HENT: Head: Normocephalic. Eyes: Conjunctiva/sclera: Conjunctivae normal. Cardiovascular: Rate and Rhythm: Normal rate and regular rhythm. Heart sounds: Normal heart sounds. Pulmonary: Effort: Pulmonary effort is normal. Breath sounds: Normal breath sounds. Skin: General: Skin is warm and dry. Neurological: General: No focal deficit present. Mental Status: She is alert and oriented to person, place, and time. Psychiatric: Mood and Affect: Mood normal. Behavior: Behavior normal. Thought Content: Thought content normal. Judgment: Judgment normal. Assessment and Plan Encounter Diagnosis ICD-10-CM 1. Type 2 diabetes mellitus with diabetic neuropathy, with long-term current use of insulin (HCC) E11.40 COMP METABOLIC PANEL Z79.4 2. Sinusitis, maxillary, chronic J32.0 fluticasone (FLONASE) 50 mcg/actuation nasal spray 3. Vitamin D deficiency E55.9 4. Tachycardia R00.0 COM (more content not included)... [facility] 09-16-2022 Nurse Note Patient not able to stay to have EKG and labwork completed today due to appointment in [place] at 12 pm. Pt will need to schedule Nurse visit to have EKG done, and needing to have follow up appointment scheduled with PCP. Tatianna Severino LPN documented in this encounter [facility] 09-16-2022 Instructions Dino Piedra MD - 09/16/2022 11:09 AM EDT If the sinus and allergy medication has a decongestant (phenylephrine or pseudoephedrine), need to stop taking and find another sinus and cold med without it if Flonase (flucticasone) 2 sprays each nostril daily not effective for controlling symptoms. documented in this encounter [facility] 09-16-2022 History of Present illness Narrative This note was created using [employer]. Subjective Jodie Ghosh is a 52 year old female. Patient presents with: F/U 6 months SUBJECTIVE: Jodie Ghosh is a 52 year old year old lady here today for 6 month follow up appointment for review of medical conditions. Nothing much going on. Feet pain is better. Taking OTC sinus and allergy meds--not sure what is in it. Taking 6 per day. Noted heart rate up today. Does not feel heart racing. Meds have been adjusted by counseling center. Med list updated. PAST MEDICAL HISTORY Diagnosis Date Adjustment disorder with depressed mood Anxiety disorder in conditions classified elsewhere Asthma 03/31/2019 mild well controlled Degenerative disc disease, lumbar Diabetes mellitus type II Diabetic neuropathy ([facility]) 12/11/2017 feet only Endometrial cancer ([facility]) Fibromyalgia Hypothyroidism Insomnia, unspecified Lazy eye since Menopause Morbid obesity with BMI of 45.0-49.9, adult ([facility]) 03/29/2017 Schizoaffective disorder, bipolar type ([facility]) 04/14/2015 states no longer Sleep apnea CPAP occasional usage Tobacco use disorder 01/21/2021 Current Outpatient Medications Medication Sig TRINTELLIX 10 mg tablet Take 1 tablet by mouth once daily. metFORMIN ER (GLUCOPHAGE XR) 500 mg 24 hr tablet Take 2 tablets by mouth twice daily before meals. Alpha Lipoic Acid 600 mg cap Take 1 capsule by mouth once daily. pregabalin (LYRICA) 75 mg capsule Take 1 capsule by mouth twice daily for 60 days. Magnesium Oxide 500 mg tab Take 1 tablet by mouth once daily. atorvastatin (LIPITOR) 10 mg tablet Take 1 tablet by mouth once daily. For cholesterol.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 Procedures Referred By Kailyn t Referred To Contact [facility] Diagnoses Encounter for screening mammogram for breast cancer Procedures SARKIS SCREENING SCREENING MAMMOGRAPHY BI 2-VIEW BREAST INC Dino Browne MD [facility] [place] [address] [facility] [address] [place] [address] Referral ID Status Reason Start Date Expiration Date Visits Requested Visits Authorized [id number] Pending Review Auto-Generat ed Referral 12/08/2021 01/07/2023 1 1 T [facility] for referral (narrative)* Outpatient Procedure (Routine) - Pending Review Specialty Diagnoses / Procedures Referred By Kailyn caballero Referred To [facility] Diagnoses Tachycardia Procedures ECG COMPLETE ECG ROUTINE ECG W/LEAST 12 LDS W/I&R Dino Piedra MD [address] [place] [address] [facility] [address] [place] [address] Referral ID Status Reason Start Date Expiration Date Visits Requested Visits Authorized [id number] Pending Review Auto-Generat ed Referral 09/16/2022 09/16/2023 1 1 T [facility] for referral (narrative)* Diagnostic Procedure Only (Routine) - Authorized Specialty Diagnoses / Procedures Referred By Kailyn t Referred To Contact [facility] Diagnoses Encounter for screening mammogram for breast cancer Procedures SARKIS SCREENING SCREENING MAMMOGRAPHY BI 2-VIEW BREAST INC Dino Browne MD [address] [place] [address] [facility] [address] [place] [address] Referral ID Status Reason Start Date Expiration Date Visits Requested Visits Authorized [id number] Authorized Auto-Generat ed Referral 07/05/2023 08/03/2024 1 1 [facility] Summary Purpose Family History No Family History Records FoundNo Family History Records FoundNo Family History Records FoundNo Family History Records FoundNo Family History Records FoundNo Family History Records FoundNo Family History Records Found Advance Directives Documents on File Type Date 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 Advance Directive(s) 03/08/2021 12:12 PM Documents on File Type Date Recorded 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 Advance Directive(s) 03/08/2021 12:12 PM Health Concerns Infection Onset Date Last Indicated Resolved Time COVID-19 Rule-Out 10/01/2021 10/01/2021 Infection Onset Date Last Indicated Resolved Time COVID-19 Rule-Out 10/01/2021 10/01/2021 10/02/2021 2:49 AM EDT Reason for Referral Specialty Diagnoses / Procedures Referred By Kailyn caballero Referred To Contact Podiatry Diagnoses Controlled type 2 diabetes mellitus with diabetic neuropathy, without long-term current use of insulin (HCC) Procedures CONSULT TO PODIATRY OFFICE/OUTPATIENT [facility] 60-74 MINUTES Nacho Cornell, PASTOR.DIFFERENTIAL TESTER [address] [place] [address] Referral ID Status Reason Start Date Expiration Date Visits Requested Visits Authorized [id number] Authorized PCP Requested Referral 01/24/2022 01/24/2023 1 1 Specialty Diagnoses / Procedures Referred By Kailyn caballero Referred To Contact Ophthalmology Diagnoses Screening for diabetic retinopathy Procedures CONSULT TO OPHTHALMOLOGY OFFICE/OUTPATIENT [facility] 60-74 MINUTES Nacho Cornell, PASTOR.DIFFERENTIAL TESTER [address] [place] [address] Referral ID Status Reason Start Date Expiration Date Visits Requested Visits Authorized [id number] Authorized PCP Requested Referral 01/24/2022 01/24/2023 1 1 Specialty Diagnoses / Procedures Referred By Kailyn caballero Referred To Contact [facility] Diagnoses Asthma Procedures SPIROMETRY - BASELINE AND POST DILATOR BRNCDILAT RSPSE SPMTRY PRE&POST-BRNCDILAT ADMN Nacho Cornell, PASTOR.DIFFERENTIAL TESTER [address] [place] [address] [facility] [address] [place] [address] Referral ID Status Reason Start Date Expiration Date Visits Requested Visits Authorized [id number] Pending Review Auto-Generat ed Referral 01/24/2022 02/23/2023 1 1 Specialty Diagnoses / Procedures Referred By Contac t Referred To Contact Diagnoses Type 2 diabetes mellitus with hyperglycemia, with long-term current use of insulin (HCC) Procedures CONSULT TO DIABETES EDUCATION OFFICE/OUTPATIENT [facility] 60-74 MINUTES Nacho Cornell, PASTOR.DIFFERENTIAL TESTER [address] [place] [address] [facility] [address] [place] [address] Referral ID Status Reason Start Date Expiration Date Visits Requested Visits Authorized [id number] Authorized PCP Requested Referral 02/01/2022 02/01/2023 1 1 Specialty Diagnoses / Procedures Referred By Kailyn caballero Referred To Contact Nacho Cornell, PASTOR.[facility] [address] [place] [address] Referral ID Status Reason Start Date Expiration Date V isits Requested Visits Authorized [id number] Pending Review 1 1 Referral ID Status Reason Start Date Expiration Date Visits Re quested Visits Authorized [id number] Closed 1 1 Referral ID Status Reason Start Date Expiration Date Visits Re quested Visits Authorized [id number] Closed 1 1 Specialty Diagnoses / Procedures Referred By Kailyn t Referred To Contact Diagnoses JAELYN (obstructive sleep apnea) Procedures CONSULT TO SLEEP MEDICINE - ADULT OFFICE/OUTPATIENT [facility] 60-74 MINUTES Ncaho Cornell, PASTOR.DIFFERENTIAL TESTER [address] [place] [address] Referral ID Status Reason Start Date Expiration Date Visits Requested Visits Authorized [id number] Authorized PCP Requested Referral 3 04/05/2024 1 1 Specialty Diagnoses / Procedures Referred By Contac t Referred To Contact [facility] Diagnoses New daily persistent headache Procedures MRI BRAIN WO/W IVCON MRI BRAIN BRAIN STEM W/O W/CONTRAST MATERIAL Ander Mittal PASTOR.SYSTEMS COORDINATOR [address] [place] [address] [place] [address] Referral ID Status Reason Start Date Expiration Date V isits Requested Visits Authorized [id number] Closed Auto-Generate d Referral 07/06/2023 09/04/2023 1 1 Additional Source Comments INFORMATION SOURCE (unrecogn ized section and content) DATE CREATED AUTHOR AUTHOR'S ORGANIZ ATION 02/01/2019 [facility] DATE CREATED AUTHOR AUTHOR'S ORGANIZ ATION 04/26/2019 [facility] ([place]) DATE CREATED AUTHOR AUTHOR'S ORGANIZ ATION 04/15/2021 [facility] DATE CREATED AUTHOR AUTHOR'S ORGANIZ ATION 03/12/2023 [facility] DATE CREATED AUTHOR AUTHOR'S ORGANIZ ATION 03/28/2023 [facility] DATE CREATED AUTHOR AUTHOR'S ORGANIZ ATION 08/01/2023 [facility] Source Comments (unrecognize d section and content) In the event this informatio n is protected by the Federal Confidentiality of Alcohol and Drug Abuse Patient Records regulations: The Federal rules restrict any use of the information to criminally investigate or prosecute any alcohol or drug abuse patient.[facility] the event this information is protected by the Federal Confidentiality of Alcohol and Drug Abuse Patient Records regulations: The Federal rules restrict any use of the information to criminally investigate or prosecute any alcohol or drug abuse patient.[facility] the event this information is protected by the Federal Confidentiality of Alcohol and Drug Abuse Patient Records regulations: The Federal rules restrict any use of the information to criminally investigate or prosecute any alcohol or drug abuse patient.[facility] the event this information is protected by the Federal Confidentiality of Alcohol and Drug Abuse Patient Records regulations: The Federal rules restrict any use of the information to criminally investigate or prosecute any alcohol or drug abuse patient.[facility] the event this information is protected by the Federal Confidentiality of Alcohol and Drug Abuse Patient Records regulations: The Federal rules restrict any use of the information to criminally investigate or prosecute any alcohol or drug abuse patient.[facility] the event this information is protected by the Federal Confidentiality of Alcohol and Drug Abuse Patient Records regulations: The Federal rules restrict any use of the information to criminally investigate or prosecute any alcohol or drug abuse patient.[facility] the event this information is protected by the Federal Confidentiality of Alcohol and Drug Abuse Patient Records regulations: The Federal rules restrict any use of the information to criminally investigate or prosecute any alcohol or drug abuse patient.[facility] the event this information is protected by the Federal Confidentiality of Alcohol and Drug Abuse Patient Records regulations: The Federal rules restrict any use of the information to criminally investigate or prosecute any alcohol or drug abuse patient.[facility] the event this information is protected by the Federal Confidentiality of Alcohol and Drug Abuse Patient Records regulations: The Federal rules restrict any use of the information to criminally investigate or prosecute any alcohol or drug abuse patient.[facility] the event this information is protected by the Federal Confidentiality of Alcohol and Drug Abuse Patient Records regulations: The Federal rules restrict any use of the information to criminally investigate or prosecute any alcohol or drug abuse patient.[facility] the event this information is protected by the Federal Confidentiality of Alcohol and Drug Abuse Patient Records regulations: The Federal rules restrict any use of the information to criminally investigate or prosecute any alcohol or drug abuse patient.[facility] the event this information is protected by the Federal Confidentiality of Alcohol and Drug Abuse Patient Records regulations: The Federal rules restrict any use of the information to criminally investigate or prosecute any alcohol or drug abuse patient.[facility] the event this information is protected by the Federal Confidentiality of Alcohol and Drug Abuse Patient Records regulations: The Federal rules restrict any use of the information to criminally investigate or prosecute any alcohol or drug abuse patient.[facility] the event this information is protected by the Federal Confidentiality of Alcohol and Drug Abuse Patient Records regulations: The Federal rules restrict any use of the information to criminally investigate or prosecute any alcohol or drug abuse patient.[facility] the event this information is protected by the Federal Confidentiality of Alcohol and Drug Abuse Patient Records regulations: The Federal rules restrict any use of the information to criminally investigate or prosecute any alcohol or drug abuse patient.[facility] the event this information is protected by the Federal Confidentiality of Alcohol and Drug Abuse Patient Records regulations: The Federal rules restrict any use of the information to criminally investigate or prosecute any alcohol or drug abuse patient.[facility] the event this information is protected by the Federal Confidentiality of Alcohol and Drug Abuse Patient Records regulations: The Federal rules restrict any use of the information to criminally investigate or prosecute any alcohol or drug abuse patient.[facility] the event this information is protected by the Federal Confidentiality of Alcohol and Drug Abuse Patient Records regulations: The Federal rules restrict any use of the information to criminally investigate or prosecute any alcohol or drug abuse patient.[facility] the event this information is protected by the Federal Confidentiality of Alcohol and Drug Abuse Patient Records regulations: The Federal rules restrict any use of the information to criminally investigate or prosecute any alcohol or drug abuse patient.[facility] the event this information is protected by the Federal Confidentiality of Alcohol and Drug Abuse Patient Records regulations: The Federal rules restrict any use of the information to criminally investigate or prosecute any alcohol or drug abuse patient.[facility] the event this information is protected by the Federal Confidentiality of Alcohol and Drug Abuse Patient Records regulations: The Federal rules restrict any use of the information to criminally investigate or prosecute any alcohol or drug abuse patient.[facility] the event this information is protected by the Federal Confidentiality of Alcohol and Drug Abuse Patient Records regulations: The Federal rules restrict any use of the information to criminally investigate or prosecute any alcohol or drug abuse patient.[facility] the event this information is protected by the Federal Confidentiality of Alcohol and Drug Abuse Patient Records regulations: The Federal rules restrict any use of the information to criminally investigate or prosecute any alcohol or drug abuse patient.[facility] the event this information is protected by the Federal Confidentiality of Alcohol and Drug Abuse Patient Records regulations: The Federal rules restrict any use of the information to criminally investigate or prosecute any alcohol or drug abuse patient.[facility] the event this information is protected by the Federal Confidentiality of Alcohol and Drug Abuse Patient Records regulations: The Federal rules restrict any use of the information to criminally investigate or prosecute any alcohol or drug abuse patient.[facility] the event this information is protected by the Federal Confidentiality of Alcohol and Drug Abuse Patient Records regulations: The Federal rules restrict any use of the information to criminally investigate or prosecute any alcohol or drug abuse patient.[facility] the event this information is protected by the Federal Confidentiality of Alcohol and Drug Abuse Patient Records regulations: The Federal rules restrict any use of the information to criminally investigate or prosecute any alcohol or drug abuse patient.[facility] the event this information is protected by the Federal Confidentiality of Alcohol and Drug Abuse Patient Records regulations: The Federal rules restrict any use of the information to criminally investigate or prosecute any alcohol or drug abuse patient.[facility] the event this information is protected by the Federal Confidentiality of Alcohol and Drug Abuse Patient Records regulations: The Federal rules restrict any use of the information to criminally investigate or prosecute any alcohol or drug abuse patient.[facility] the event this information is protected by the Federal Confidentiality of Alcohol and Drug Abuse Patient Records regulations: The Federal rules restrict any use of the information to criminally investigate or prosecute any alcohol or drug abuse patient.[facility] the event this information is protected by the Federal Confidentiality of Alcohol and Drug Abuse Patient Records regulations: The Federal rules restrict any use of the information to criminally investigate or prosecute any alcohol or drug abuse patient.[facility] the event this information is protected by the Federal Confidentiality of Alcohol and Drug Abuse Patient Records regulations: The Federal rules restrict any use of the information to criminally investigate or prosecute any alcohol or drug abuse patient.[facility] the event this information is protected by the Federal Confidentiality of Alcohol and Drug Abuse Patient Records regulations: The Federal rules restrict any use of the information to criminally investigate or prosecute any alcohol or drug abuse patient.[facility] the event this information is protected by the Federal Confidentiality of Alcohol and Drug Abuse Patient Records regulations: The Federal rules restrict any use of the information to criminally investigate or prosecute any alcohol or drug abuse patient.[facility] the event this information is protected by the Federal Confidentiality of Alcohol and Drug Abuse Patient Records regulations: The Federal rules restrict any use of the information to criminally investigate or prosecute any alcohol or drug abuse patient.[facility] EastIn the event this information is protected by the Federal Confidentiality of Alcohol and Drug Abuse Patient Records regulations: The Federal rules restrict any use of the information to criminally investigate or prosecute any alcohol or drug abuse patient.[facility] EastIn the event this information is protected by the Federal Confidentiality of Alcohol and Drug Abuse Patient Records regulations: The Federal rules restrict any use of the information to criminally investigate or prosecute any alcohol or drug abuse patient.[facility] EastIn the event this information is protected by the Federal Confidentiality of Alcohol and Drug Abuse Patient Records regulations: The Federal rules restrict any use of the information to criminally investigate or prosecute any alcohol or drug abuse patient.[facility] EastIn the event this information is protected by the Federal Confidentiality of Alcohol and Drug Abuse Patient Records regulations: The Federal rules restrict any use of the information to criminally investigate or prosecute any alcohol or drug abuse patient.[facility] Reason for Visit (unrecogniz ed section and content) Reason Comments Cough possible bronchitis x 4 days Reason Comments Results Reason Comments Medication Request Reason Comments Prescription Refills Reason Comments F/U 6 Month Reason Comments NEW PRIMARY CARE PHARMACY APPT Reason Comments Results Reason Comments Appointment Reason Comments Faxed lab results Reason Onset Date Comments Medication Request 07/26/2022 Reason Onset Date Comments Refill Request 08/30/2022 Reason Comments F/U 6 months Reason Comments Neuropathy Reason Onset Date Comments Refill Request 12/12/2022 Reason Comments Diabetes Reason Comments Skill Labor Exam Reason Onset Date Comments Refill Request 02/01/2023 Reason Comments Low Blood Sugar Reason Comments Refill Request Reason Comments Sensor needed Reason Comments Medication Problem Reason Comments fax orders Reason Comments Results Reason Onset Date Comments Refill Request 04/10/2023 Reason Comments Results PSG Reason Comments Chest Congestion cough, headache and bodyaches x 2 days Reason Comments Insurance Authorization Reason Comments Follow Up Pt reported inabilit y to sleep with mask, not currently using, c/o fatigue. Specialty Diagnoses / Procedures Referred By Kailyn t Referred To Contact Diagnoses JAELYN (obstructive sleep apnea) Procedures CONSULT TO SLEEP MEDICINE - ADULT OFFICE/OUTPATIENT NEW HIGH MDM 60-74 MINUTES Nacho Cornell, PASTOR.DIFFERENTIAL TESTER [address] [place] [address] Referral ID Status Reason Start Date Expiration Date V isits Requested Visits Authorized [id number] Closed PCP Requested Referral 04/06/2023 04/05/2024 1 1 Specialty Diagnoses / Procedures Referred By Contac t Referred To Contact MR IMAGING Diagnoses New daily persistent headache Procedures MRI BRAIN WO/W IVCON MRI BRAIN BRAIN STEM W/O W/CONTRAST MATERIAL Ander Mittal, PASTOR.SYSTEMS COORDINATOR [address] [place] [address] [place] [id number] Referral ID Status Reason Start Date Expiration Date V isits Requested Visits Authorized [id number] Closed Auto-Generate d Referral 07/06/2023 09/04/2023 1 1 Care Teams (unrecognized sec tion and content) Bog Worker Relationship Specialty Start Date End Date Dino Piedra MD [address] [place] [address] PCP - General Internal Medicine 01/15/16 [facility] [address] [place] [address] Pharmacist Pharmacy 01/28/20 Bog Worker Relationship Specialty Start Date End Date Dino Piedra MD [address] [place] [address] PCP - General Internal Medicine 01/15/16 [facility] [address] [place] [address] Pharmacist Pharmacy 01/28/20 Bog Worker Relationship Specialty Start Date End Date Dino Piedra MD [address] [place] [address] PCP - General Internal Medicine 01/15/16 Leon Bernstein [facility] [address] [place] [address] Pharmacist Pharmacy 01/28/20 Bog Worker Relationship Specialty Start Date End Date Dino Piedra MD [address] [facility] [place] [place] [address] PCP - General Internal Medicine 01/15/16 [facility] [address] [facility] [place] [place] [address] Pharmacist Pharmacy 01/28/20 Bog Worker Relationship Specialty Start Date End Date Dino Piedra MD [address] [facility] [place] [place] [address] PCP - General Internal Medicine 01/15/16 [facility] [address] [facility] [place] [place] [address] Pharmacist Pharmacy 01/28/20 Bog Worker Relationship Specialty Start Date End Date Dino Piedra MD [address] [facility] [place] [place] [address] PCP - General Internal Medicine 01/15/16 Leon Bernstein, [facility] [address] [facility] [place] [address] Pharmacist Pharmacy 01/28/20 Bog Worker Relationship Specialty Start Date End Date Dino Piedra MD [address] [facility] [place] [place] [address] PCP - General Internal Medicine 01/15/16 [facility] [address] [facility] [place] [place] [address] Pharmacist Pharmacy 01/28/20 Bog Worker Relationship Specialty Start Date End Date Dino Piedra MD [address] [facility] [place] [place] [address] PCP - General Internal Medicine 01/15/16 Leon Bernstein, [facility] [address] [facility] [place] [place] [address] Pharmacist Pharmacy 01/28/20 Bog Worker Relationship Specialty Start Date End Date Dino Piedra MD [address] [facility] [place] [place] [address] PCP - General Internal Medicine 01/15/16 ToniLeon, [facility] [address] [facility] [place] [place] [address] Pharmacist Pharmacy 01/28/20 Bog Worker Relationship Specialty Start Date End Date Dino Piedra MD [address] [facility] [place] [place] [address] PCP - General Internal Medicine 01/15/16 [facility] [address] [facility] [place] [place] [address] Pharmacist Pharmacy 01/28/20 Bog Worker Relationship Specialty Start Date End Date Dino Piedra MD [address] [facility] [place] [place] [address] PCP - General Internal Medicine 01/15/16 ToniLeon, [facility] [address] [facility] [place] [place] [address] Pharmacist Pharmacy 01/28/20 Bog Worker Relationship Specialty Start Date End Date Dino Piedra MD [address] [facility] [place] [place] [address] PCP - General Internal Medicine 01/15/16 Braxton Modi, [facility] [address] [place] [address] Pharmacy 12/14/22 Bog Worker Relationship Specialty Start Date End Date Dino Piedra MD [address] [facility] [place] [place] [address] PCP - General Internal Medicine 01/15/16 Braxton Modi, [facility] [address] [facility] [place] [address] Pharmacy 12/14/22 Bog Worker Relationship Specialty Start Date End Date Dino Piedra MD [address] [facility] [place] [address] PCP - General Internal Medicine 01/15/16 Braxton Modi, [facility] [address] [place] [address] Pharmacy 12/14/22 Bog Worker Relationship Specialty Start Date End Date Dino Piedra MD [address] [place] [address] PCP - General Internal Medicine 01/15/16 Braxton Modi, [facility] [address] [facility] [place] [address] Pharmacy 12/14/22 Bog Worker Relationship Specialty Start Date End Date Dino Piedra MD [address] [place] [address] PCP - General Internal Medicine 01/15/16 Braxton Modi, [facility] [address] [place] [address] Pharmacy 12/14/22 Bog Worker Relationship Specialty Start Date End Date Dino Piedra MD [address] [place] [address] PCP - General Internal Medicine 01/15/16 Braxton Modi, [facility] [address] [facility] [place] [address] Pharmacy 12/14/22 Bog Worker Relationship Specialty Start Date End Date Dino Piedra MD [address] [facility] [place] [address] PCP - General Internal Medicine 01/15/16 Braxton Modi [facility] [address] [facility] [place] [address] Pharmacy 12/14/22 Bog Worker Relationship Specialty Start Date End Date Dino Piedra MD [address] [facility] [place] [address] PCP - General Internal Medicine 01/15/16 [facility] [address] [facility] [place] [address] Pharmacy 12/14/22 Bog Worker Relationship Specialty Start Date End Date Dino Piedra MD [address] [facility] [place] [address] PCP - General Internal Medicine 01/15/16 Braxton Modi [facility] [address] [facility] [place] [address] Pharmacy 12/14/22 Bog Worker Relationship Specialty Start Date End Date Dino Piedra MD [address] [place] [address] PCP - General Internal Medicine 01/15/16 Braxton Modi [facility] [address] [facility] [place] [address] Pharmacy 12/14/22 Bog Worker Relationship Specialty Start Date End Date Dino Piedra MD [address] [place] [address] PCP - General Internal Medicine 01/15/16 Braxton Modi, [facility] [address] [facility] [place] [address] Pharmacy 12/14/22 Bog Worker Relationship Specialty Start Date End Date Dino Piedra MD [address] [place] [address] PCP - General Internal Medicine 01/15/16 Braxton Modi, [facility] [address] [facility] [place] [address] Pharmacy 12/14/22 Bog Worker Relationship Specialty Start Date End Date Dino Piedra MD [address] [place] [address] PCP - General Internal Medicine 01/15/16 Braxton Modi, [facility] [address] [facility] [place] [address] Pharmacy 12/14/22 FOR RECORDS PERTAINING TO PATIENTS WHO ARE OR HAVE BEEN ENROLLED IN A CHEMICAL DEPENDENCY/SUBSTANCEABUSE PROGRAM, SOME INFORMATION MAY BE OMITTED. This clinical summary was aggregated from multiple sources. Caution should be exercised in using it in the provision of clinical care. This summary normalizes information from multiple sources, and as a consequence, information in this document may materially change the coding, format and clinical context of patient data. In addition, data may be omitted in some cases. CLINICAL DECISIONS SHOULD BE BASED ON THE PRIMARY CLINICAL RECORDS. [employer] [facility]. provides no warranty or guarantee of the accuracy or completeness of information in this document.
[2023-08-05 12:48] LABS: Color, Urine Yellow (Yellow); Glucose, Dipstick 1000 mg/dl (Normal); Ketone-Dipstick 5 mg/dl (Negative); Leukocyte Esterase-Dipstick Negative /ul (Negative); Nitrite-Dipstick Negative (Negative); Occult Blood-Urine Negative /ul (Negative); Protein-Dipstick 15 mg/dl (Negative); Specific Gravity, Urine 1.015 (1.002-1.030); Urine Bilirubin Dipstick Negative (Negative); Urine Clarity Clear (Clear); Urine Urobilinogen Normal (Normal)
[2023-08-05 13:11] LABS: ALB/GLOB Ratio 0.9 RATIO (0.9-2.4); AST(SGOT) 35 U/L (15-37); Alanine Aminotransfer ALT/SGPT 40 U/L (13-56); Albumin, Serum 3.2 g/dL (3.2-5.0); Alkaline Phosphatase 95 U/L (45-117); Anion Gap 6 (5-15); BUN 10 mg/dL (7-18); BUN/Creat Ratio 10.8 RATIO (10-20); Calcium,Total 8.6 mg/dL (8.5-10.1); Chloride 104 mmol/L (98-107); Creatinine, Serum 0.92 mg/dL (0.55-1.02); EST Glomerular Filtration Rate 68 mL/min (>60); Est Glom Filt Rate - Afr Amer 82 mL/min (>60); Estimated Creatinine Clearance 74.03 ml/min; Globulin 3.7 g/dL (2.2-4.2); Glucose 501 mg/dL (74-106); Potassium 3.9 mmol/L (3.5-5.1); Protein, Total 6.9 g/dL (6.4-8.2); Sodium Level 138 mmol/L (136-145); Troponin-I HS 7 pg/mL (3.0-54.0)
[2023-08-05 13:36] LABS: Absolute Lymphocyte Count 2.11 X10^3/uL (0.83-4.51); Absolute Neutrophil Count 3.9 X10^3/uL (2.0-7.7); Basophil# 0.04 X10^3/uL; Basophil% 0.6 % (0-1); Eosinophils% 1.5 % (0-5); Hematocrit 43.3 % (37-47); Hemoglobin 14.1 g/dL (12.0-15.0); Lymphocyte # 2.11 X10^3/ul (0.83-4.51); Lymphocyte % 31.6 % (19-41); Mean Corp Hgb Conc 32.6 g/dL (32-36); Mean Corpuscular Volume 88.9 fL (81-99); Mean Platelet Vol. 11.2 fl (6.2-12.0); Monocyte# 0.51 X10^3/uL; Monocyte% 7.6 % (0-10); NRBC Flagged by Analyzer 0 % (0-5); Neutrophil # 3.87 X10^3/uL (2.7-7.7); Neutrophil % 58.1 % (47-70); Platelet Count 183 K/mm3 (150-450); RBC Distribution Width CV 13.9 % (11.6-14.6); RBC Distribution Width SD 45.2 fl (35.1-43.9); Red Blood Count 4.87 M/mm3 (4.2-5.4); White Blood Count 6.7 K/mm3 (4.4-11.0)
--- NOTE | 2023-08-05 14:00 | NURSING ---
[address]
[2023-08-05 15:24] VITALS: BP 138/90; PULSE 81; RESP 16; O2SAT 99
[2023-08-05 15:42] VITALS: BP 138/90; PULSE 81; RESP 16; TEMP 35.5; O2SAT 99
== END 2023-08-05 15:46 | disposition home or self-care (01) ==
PROVIDERS: Emergency Provider Student in an Organized Health Care Education/Training Program; PCP Internal Medicine; Visit Provider Student in an Organized Health Care Education/Training Program
DX: E11.65 Type 2 diabetes mellitus with hyperglycemia (principal); F17.210 Nicotine dependence, cigarettes, uncomplicated; Z79.84 Long term (current) use of oral hypoglycemic drugs; E66.9 Obesity, unspecified; E78.00 Pure hypercholesterolemia, unspecified; I10 Essential (primary) hypertension; J45.909 Unspecified asthma, uncomplicated; R51.9 Headache, unspecified
CPT/HCPCS: 80048; 80053; 81001; 82009; 82962; 84484; 85025; 93005; 96360; 96361; 99283; J7030

== ENCOUNTER → 2023-09-22 | Outpatient (CLI) | payer MEDICARE, MEDICAID, SELFPAY ==
[2023-09-22 09:38] LABS: Hemoglobin A1c 9.5 % (3.8-5.6)
[2023-09-22 10:10] LABS: Erythrocyte Sedimentation Rate 17 mm/hr (0-30)
--- NOTE | 2023-09-22 10:20 | BI_ITS ---
MAMMOGRAPHY - BILATERAL SCREENING REASON FOR EXAM: Female, 53 years old. Routine annual screening examination. PERTINENT HISTORY: Non-contributory. TECHNIQUE: Digital bilateral breast felecia (3D mammographic acquisition) in the CC and MLO projections. 2-D mediolateral oblique (MLO) and craniocaudad (CC) views of both breasts were obtained. CAD: Full Field Digital Mammography with Computer Added Detection was performed. COMPARISON: Comparison is made with prior outside examination dated November 03, 2020. FINDINGS: Breast Composition: The breasts are almost entirely fatty. There are no dominant masses or suspicious calcifications. Stable 3.6 mm well-defined nodule in the deep upper lateral aspect of the right breast. No other significant abnormalities are identified. There has been no significant change since the prior study. BI/SCRN MAMM (CAD)W/FELECIA BILAT IMPRESSION: Stable bilateral screening mammogram. Yearly follow-up mammogram recommended. (A) ASSESSMENT CATEGORY: BIRADS Category 2: Benign. A letter regarding these results will be sent to the patient by the facility within 30 days. Approximately 10% of breast cancers are not detected by mammography. A normal mammogram should not delay biopsy of a clinically suspicious abnormality. [id number] Electronically Signed: Wayne Cooper MD at 9:45 EDT ,
[2023-09-22 12:57] LABS: Microalbumin,Random Urine 25.7 mg/L (NO RANGE EST.)
[2023-09-22 13:07] LABS: ALB/GLOB Ratio 0.9 RATIO (0.9-2.4); AST(SGOT) 36 U/L (15-37); Alanine Aminotransfer ALT/SGPT 44 U/L (13-56); Albumin, Serum 3.6 g/dL (3.2-5.0); Alkaline Phosphatase 81 U/L (45-117); Anion Gap 5 (5-15); BUN 23 mg/dL (7-18); BUN/Creat Ratio 29.3 RATIO (10-20); CRP < 2.90 mg/L (0.0-3.0); Calcium,Total 9.5 mg/dL (8.5-10.1); Chloride 108 mmol/L (98-107); Cholesterol 139 mg/dL (200); Creatinine, Serum 0.78 mg/dL (0.55-1.02); EST Glomerular Filtration Rate 81 mL/min (>60); Est Glom Filt Rate - Afr Amer 99 mL/min (>60); Globulin 3.9 g/dL (2.2-4.2); Glucose 187 mg/dL (74-106); High Density Lipoprotein 52 mg/dL; Potassium 3.9 mmol/L (3.5-5.1); Protein, Total 7.5 g/dL (6.4-8.2); Rheumatoid Factor < 10.0 IU/mL (<15); Sodium Level 141 mmol/L (136-145); Triglycerides 181 mg/dL; Very Low Density Lipoprotein 36 mg/dL (5-40)
[2023-09-23 12:08] LABS: CCP IgG Antibodies 5 units (0-19)
[2023-09-25 09:07] LABS: ANTINUCLEAR ANTIBODIES DIRECT Negative (Negative)
== END | disposition home or self-care (01) ==
LOC: OPBI 08:25
PROVIDERS: PCP Family Medicine; Referring Provider Family Medicine; Visit Provider Family Medicine
DX: Z12.31 Encounter for screening mammogram for malignant neoplasm of breast (principal); E11.9 Type 2 diabetes mellitus without complications; E03.9 Hypothyroidism, unspecified; M25.50 Pain in unspecified joint
CPT/HCPCS: 36415; 77063; 77067; 80053; 80061; 82043; 82570; 83036; 84443; 85652; 86038; 86140; 86200; 86431

== ENCOUNTER 2024-01-02 15:00 | Observation (INO) | payer MEDICARE, MEDICAID, SELFPAY ==
[2024-01-02 15:00] VITALS: BP 132/95; PULSE 124; RESP 20; TEMP 36; O2SAT 97
[2024-01-02 15:36] LABS: Absolute Lymphocyte Count 3.81 X10^3/uL (0.83-4.51); Absolute Neutrophil Count 7.1 X10^3/uL (2.0-7.7); Basophil# 0.06 X10^3/uL; Basophil% 0.5 % (0-1); Eosinophil# 0.11 X10^3/uL; Eosinophils% 0.9 % (0-5); Hematocrit 46.8 % (37-47); Hemoglobin 15.4 g/dL (12.0-15.0); Lymphocyte # 3.81 X10^3/ul (0.83-4.51); Lymphocyte % 31.9 % (19-41); Mean Corp Hgb Conc 32.9 g/dL (32-36); Mean Corpuscular Hgb 28.5 pg (27.0-32.0); Mean Corpuscular Volume 86.7 fL (81-99); Mean Platelet Vol. 10.2 fl (6.2-12.0); Monocyte# 0.82 X10^3/uL; Monocyte% 6.9 % (0-10); NRBC Flagged by Analyzer 0 % (0-5); Neutrophil # 7.07 X10^3/uL (2.7-7.7); Neutrophil % 59.2 % (47-70); Platelet Count 250 K/mm3 (150-450); RBC Distribution Width CV 13.8 % (11.6-14.6); RBC Distribution Width SD 43.5 fl (35.1-43.9); White Blood Count 11.9 K/mm3 (4.4-11.0)
[2024-01-02] MEDS: Ondansetron 4 MG/2 ML Vial IV ×2 (15:42→21:10)
[2024-01-02] MEDS: Morphine 4 MG/ML Syringe IV ×2 (15:43→17:38)
[2024-01-02 15:57] LABS: Bacteria 0 SEEN /hpf (None Seen); Mucous, Urine 0 SEEN /hpf (<or=2+); Red Blood Cells-Urine 0 SEEN /hpf (0-5)
[2024-01-02 16:07] LABS: Color, Urine Yellow (Yellow); Glucose, Dipstick Normal (Normal); Ketone-Dipstick Negative (Negative); Leukocyte Esterase-Dipstick 25 /ul (Negative); Nitrite-Dipstick Negative (Negative); Occult Blood-Urine Negative /ul (Negative); Protein-Dipstick 15 mg/dl (Negative); Specific Gravity, Urine 1.015 (1.002-1.030); Urine Bilirubin Dipstick Negative (Negative); Urine Clarity Clear (Clear); Urine Urobilinogen 1 mg/dl (Normal)
[2024-01-02 16:16] LABS: Squamous Epithelial Cells - UA 0-5 SEEN /hpf (5-10); White Blood Cells 0-5 SEEN /hpf (0-5)
[2024-01-02 16:17] LABS: Hyaline Cast 0-5 SEEN /lpf (0-5)
--- NOTE | 2024-01-02 16:23 | CT_ITS ---
STUDY: CT ABDOMEN AND PELVIS WITH CONTRAST REASON FOR EXAM: Female, 53 years old. llq abdominal pain RADIATION DOSAGE (If Supplied By Facility): CTDIvol = ( 20.37 ) mGy, DLP = ( 1297.78 ) mGycm TECHNIQUE: Transaxial images were obtained from the dome of the diaphragm to the symphysis pubis without oral contrast. ISOVUE 300-100ml was administered. Sagittal and coronal images were reconstructed. Individualized dose optimization techniques were used for this CT. COMPARISON: None. FINDINGS: The visualized lung bases are unremarkable. The visualized portions of the heart are within normal limits. Normal liver. Status post cholecystectomy. No significant dilatation of the extrahepatic biliary system. Normal spleen. Normal pancreas. Normal bilateral adrenal glands. Normal right kidney. Normal left kidney. Normal visualized stomach. Fluid distended proximal small intestine with distal decompressed loops. This may be due to a focal ileus or possibly developing obstruction. Follow-up is needed. Normal colon. The appendix is not visualized. Normal abdominal aorta. Normal inferior vena cava. Normal retroperitoneum. Normal urinary bladder. Normal abdominal wall. Normal osseous structures. CT/Abdomen/Pelvis W IV Cont ONLY IMPRESSION: Fluid distended proximal small intestine with distal decompressed loops. This may be due to a focal ileus or possibly developing obstruction. Follow-up is needed. Electronically Signed: Darryl Mendez DO at 17:36 EDT ,
[2024-01-02 16:26] LABS: AST(SGOT) 40 U/L (15-37); Alanine Aminotransfer ALT/SGPT 47 U/L (13-56); Albumin, Serum 4.1 g/dL (3.2-5.0); Alkaline Phosphatase 89 U/L (45-117); Anion Gap 10 (5-15); BUN 18 mg/dL (7-18); BUN/Creat Ratio 19.6 RATIO (10-20); Calcium,Total 10.1 mg/dL (8.5-10.1); Chloride 105 mmol/L (98-107); Creatinine, Serum 0.92 mg/dL (0.55-1.02); EST Glomerular Filtration Rate 68 mL/min (>60); Est Glom Filt Rate - Afr Amer 82 mL/min (>60); Globulin 4.3 g/dL (2.2-4.2); Glucose 180 mg/dL (74-106); Lipase 28 U/L (13-75); Potassium 3.9 mmol/L (3.5-5.1); Protein, Total 8.4 g/dL (6.4-8.2); Sodium Level 139 mmol/L (136-145)
[2024-01-02 17:00] VITALS: BP 138/94; PULSE 82; RESP 18; O2SAT 95
--- NOTE | 2024-01-02 17:54 | ED.VIS.GI ---
HPI HPI - GI History of Present Illness Chief Complaint: Abd Pain Narrative Narrative: 53-year-old female presenting with acute onset left-sided abdominal pain which began this morning. She denies fever but does have sweats. She describes the pain as stabbing. It is well localized to the left lower quadrant. She is nauseous and vomiting. Patient denies urinary or vaginal complaints. No history of kidney stone. No history of diverticulitis. Patient has history of cholecystectomy and appendectomy. No history of bowel obstruction. PFSH PFS Medical History Endometrial polyp Wears glasses Depression Anxiety Alcohol use Arthritis High cholesterol Injury of back Migraine headache Smoker CPAP (continuous positive airway pressure) dependence Sleep apnea History of stress test Hypertension Diabetes mellitus type 2 in obese Hypothyroidism Bipolar disorder Asthma Home Medications ?Medication ?Instructions ?Recorded ?Last Taken ?Type atorvastatin 10 mg tablet 10 mg PO QHS cholesterol lowering 02/27/16 09/04/18 11:00 History levothyroxine 25 mcg tablet 25 mcg PO DAILY thyroid 02/27/16 01/28/21 08:00 History albuterol sulfate 90 mcg/actuation 2 puff inhalation Q4H PRN PRN 03/23/18 08/29/18 15:00 History aerosol inhaler (ProAir HFA) shortness of breath metformin 1,000 mg tablet 1,000 mg PO BID blood sugar 03/23/18 09/04/18 22:00 History insulin glargine 100 unit/mL (3 14 unit SQ BREAKFAST 05/10/19 Unknown History mL) subcutaneous pen lamotrigine 25 mg tablet (Lamictal) 150 mg PO DAILY 05/10/19 01/28/21 08:00 History alpha lipoic acid 600 mg capsule 600 mg PO DAILY 01/21/21 Unknown History buspirone 10 mg tablet 10 mg PO BID 01/21/21 Unknown History carbamazepine 300 mg 600 mg PO QHS 01/21/21 Unknown History capsule,extended release [id number] ipratropium bromide 17 1 inh inhalation DAILY 01/21/21 Unknown History mcg/actuation HFA aerosol inhaler (Atrovent HFA) trazodone 300 mg tablet 300 mg PO QHS 01/21/21 Unknown History vitamin B12 1 mg-folic acid 0.8 mg 1 tab PO DAILY 01/21/21 Unknown History tablet cyclobenzaprine 10 mg tablet 10 mg PO TID PRN Muscle Spasm #20 06/15/21 Unknown Rx TABLETS dulaglutide 0.75 mg/0.5 mL 1.5 mg subcut QWEEK #2 mL 08/05/23 Unknown Rx subcutaneous pen injector (Trulicity) Allergy/AdvReac Type Severity Reaction Status Date / Time latex Allergy Hives Verified 01/02/24 15:00 hydromorphone (From Dilaudid) AdvReac Vomiting Verified 01/02/24 15:00 Surgical History History of back surgery Previous back surgery Hx of appendectomy History of cholecystectomy Social History Smoking Status: Current every day smoker tobacco type: e-cigarettes substance use type: does not use ROS ROS ED Constitutional Constitutional ED: Denies chills, fever(s) or sweats Eyes Eyes: Denies blurry vision or change in vision ENT ENT ED: Denies ear pain or sore throat Cardiovascular Cardiovascular: Denies chest pain, palpitations or racing heartbeat Respiratory/Chest Respiratory/Chest: Denies cough, dyspnea or sputum Gastrointestinal Gastrointestinal: Reports abdominal pain, nausea and vomiting; Denies constipation or diarrhea Genitourinary Genitourinary ED: Denies dysuria, hematuria or urinary frequency Musculoskeletal Musculoskeletal: Denies arthralgias, myalgias or neck pain Integumentary Denies abscess, Abrasions or rash Neurologic Neurologic: Denies headache(s), paresthesias or weakness Psychiatric Psychiatric: Denies anxiety, depression, suicidal ideation or suicidal thoughts Endocrine Endocrinology: Denies polydipsia or polyuria EXAM Physical Exam Const Vital Signs: 01/02/24 15:00 01/02/24 17:00 Temperature 96.8 F L Temperature Source Temporal Pulse Rate 124 H 82 Respiratory Rate 20 H 18 Blood Pressure 132/95 H 138/94 H Blood Pressure Mean 107 108 Pulse Ox 97 95 Oxygen Delivery Method Room Air Positive well nourished General Appearance ED: NAD; Negative for pallor HEENT Reports moist mucous membranes normocephalic and atraumatic Eyes PERRL and EOMs intact bilaterally Resp normal respiratory effort and clear to auscultation bilaterally Cardio regular rate and regular rhythm GI Palpation: tender LLQ and periumbilical Back/Spine no CVA tenderness Neuro CN's II-XII intact bilaterally Sensorium / Orientation: alert Motor Exam: strength 5/5 throughout Psych mental status grossly normal Skin no wounds General Skin Exam: Negative for jaundice or pallor MDM MDM MDM Narrative Medical decision making narrative: Patient presenting with left-sided abdominal pain. Started acutely this morning. IV line was established. She is medicated with morphine, Zofran. Differential includes colitis, diverticulitis, gastritis, pancreatitis, constipation, UTI, pyelonephritis, renal calculi, ureteral calculi, bowel obstruction, malignancy, dehydration, electrolyte abnormalities, ovarian cyst. CBC will be obtained to assess white blood cell count, hemoglobin, platelets. CMP to assess renal function, electrolytes, liver function, glucose. Lipase to assess for pancreatitis. Urinalysis to assess for UTI. CBC shows mild leukocytosis of 11.9. Hemoglobin 15.4. Platelets are normal at 250. Renal function and electrolytes unremarkable. AST slightly elevated at 40 other LFTs are normal. Lipase 28. Urinalysis negative for infection or occult blood. Reevaluation the patient needed to be medicated again as her pain was coming back. She was given morphine again. CT of the abdomen pelvis concerning for focal ileus versus early obstruction. Discussed with Dr. Pate at 5:50 PM. He is going to come evaluate the patient. Dr. Pate is no white count going to admit the patient. He is going to consult medicine. Patient admitted in stable condition. Impression: 1. Small bowel obstruction Lab Data Attestation: I reviewed the patient's lab results. Labs: Laboratory Results - last 24 hr 01/02/24 01/02/24 15:30 15:52 WBC 11.9 H RBC 5.40 Hgb 15.4 H Hct 46.8 MCV 86.7 MCH 28.5 MCHC 32.9 RDW Std Deviation 43.5 RDW Coeff of Lore 13.8 Plt Count 250 MPV 10.2 Immature Gran % (Auto) 0.600 Neut % (Auto) 59.2 Lymph % (Auto) 31.9 [place] % (Auto) 6.9 Eos % (Auto) 0.9 Baso % (Auto) 0.5 Absolute Neuts (auto) 7.1 Absolute Lymphs (auto) 3.81 Nucleated RBC % 0 Sodium 139 Potassium 3.9 Chloride 105 Carbon Dioxide 24.0 Anion Gap 10 BUN 18 Creatinine 0.92 Est GFR (MDRD) Af Amer 82 Est GFR (MDRD) Non-Af 68 BUN/Creatinine Ratio 19.6 Glucose 180 H Calcium 10.1 Total Bilirubin 0.70 AST 40 H ALT 47 Alkaline Phosphatase 89 Total Protein 8.4 H Albumin 4.1 Globulin 4.3 H Albumin/Globulin Ratio 1.0 Lipase 28 Urine Color Yellow Urine Clarity Clear Urine pH 8.0 Ur Specific [place] 1.015 Urine Protein 15 H Urine Glucose (UA) Normal Urine Ketones Negative Urine Occult Blood Negative Urine Nitrite Negative Urine Bilirubin Negative Urine Urobilinogen 1 H Ur Leukocyte Esterase 25 H Urine RBC 0 SEEN Urine WBC 0-5 SEEN Ur Squamous Epith Cells 0-5 SEEN Urine Bacteria 0 SEEN Hyaline Casts 0-5 SEEN Urine Mucus 0 SEEN Radiography Diagnostic Testing: Clinical Impression(s) from Imaging Studies Abdomen/Pelvis CT 01/02/24 16:23 IMPRESSION: Fluid distended proximal small intestine with distal decompressed loops. This may be due to a focal ileus or possibly developing obstruction. Follow-up is needed. Electronically Signed: Darryl Mendez DO at 17:36 EDT Reading Location ID and State: [facility] / [place] Tel [phone], Service support , Discharge Plan Triage Chief Complaint: Abd Pain ED Provider: Sukumar Stanton Dx/Rx/DC Orders Prescriptions: No Action atorvastatin 10 MG tablet 10 mg PO QHS levothyroxine 25 MCG tablet 25 mcg PO DAILY metformin 1,000 MG tablet 1,000 mg PO BID albuterol sulfate [ProAir HFA] 1 PUFF inhaler 2 puff inhalation Q4H PRN PRN (Reason: shortness of breath) lamotrigine [Lamictal] 25 MG tablet 150 mg PO DAILY Patient Comments: TAKE 1 TABLET BY MOUTH EVERY DAY X2WKS THEN INCREASE TO 2TABS DAILY THEREAFTER insulin glargine 100 UNIT/ML insulin pen 14 unit SQ BREAKFAST buspirone 10 mg tablet 10 mg PO BID Patient Comments: TAKE 1 TABLET BY MOUTH TWICE A DAY trazodone 300 mg tablet 300 mg PO QHS Patient Comments: TAKE 1 TABLET BY MOUTH EVERY DAY AT BEDTIME NEEDED vitamin L59-sopiz acid 1-0.8 mg Tablet 1 tab PO DAILY carbamazepine 300 mg Capsule, Er Multiphase 12 Hr 600 mg PO QHS Atrovent HFA 17 mcg/actuation Hfa Aerosol Inhaler 1 inh INHALATION DAILY alpha lipoic acid 600 mg capsule 600 mg PO DAILY Patient Comments: TAKE 1 CAPSULE BY MOUTH EVERY DAY cyclobenzaprine [cyclobenzaprine] 10 MG tablet 10 mg PO TID PRN (Reason: Muscle Spasm) Qty: 20 0RF Trulicity 0.75 mg/0.5 mL pen injector 1.5 mg subcut QWEEK Qty: 2 0RF Primary Care Provider: Sophie Huitron Referrals: Sophie Huitron MD [Primary Care Provider] - Print Language: Bruneian
--- NOTE | 2024-01-02 18:51 | PCM.HP.STD ---
HPI - General General Date of Admission: 01/02/24 Date of Service: 01/02/24 HPI Narrative JODIE CHILEL, is a 53 F who presents to the [facility] with complaints of acute onset left-sided abdominal pain has been associated with both nausea and vomiting. She shares that she had some pain in her stomach as well as her back this morning but she notes that she usually has pain in her back. She does note that it was of a slightly different character. She shares that she took a friend to her doctor's appointment and then laid down but started with recurrence of her pain and intractable nausea and vomiting. 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 She denies any new foods or sick contacts. She also reports that she is feeling normally yesterday with a normal bowel movement and denies any experience of fevers or chills. Patient's ED workup is notable for mild leukocytosis at 11.9 and potential hemoconcentration with a hemoglobin of 15.4. CT imaging of the abdomen pelvis was obtained showing dilated small bowel loops transitioning to decompressed small bowel distally. Radiology read this as concerning for possible ileus versus developing obstruction. Patient has a past surgical history inclusive of laparoscopic cholecystectomy and laparoscopic appendectomy. She confirms both of these were uncomplicated procedures. Medically?speaking patient confirms that she has been free of her tobacco habit for which she has a [id number] smoking history for the last couple months. Further she denies any use of marijuana. [facility] Medical History Endometrial polyp Wears glasses Depression Anxiety Alcohol use Arthritis High cholesterol Injury of back Migraine headache Smoker CPAP (continuous positive airway pressure) dependence Sleep apnea History of stress test Hypertension Diabetes mellitus type 2 in obese Hypothyroidism Bipolar disorder Asthma Home Medications ?Medication ?Instructions ?Recorded ?Last Taken ?Type atorvastatin 10 mg tablet 10 mg PO QHS cholesterol lowering 02/27/16 09/04/18 11:00 History levothyroxine 25 mcg tablet 25 mcg PO DAILY thyroid 02/27/16 01/28/21 08:00 History albuterol sulfate 90 mcg/actuation 2 puff inhalation Q4H PRN PRN 03/23/18 08/29/18 15:00 History aerosol inhaler (ProAir HFA) shortness of breath metformin 1,000 mg tablet 1,000 mg PO BID blood sugar 03/23/18 09/04/18 22:00 History insulin glargine 100 unit/mL (3 14 unit SQ BREAKFAST 05/10/19 Unknown History mL) subcutaneous pen lamotrigine 25 mg tablet (Lamictal) 150 mg PO DAILY 05/10/19 01/28/21 08:00 History alpha lipoic acid 600 mg capsule 600 mg PO DAILY 01/21/21 Unknown History buspirone 10 mg tablet 10 mg PO BID 01/21/21 Unknown History carbamazepine 300 mg 600 mg PO QHS 01/21/21 Unknown History capsule,extended release [id number] ipratropium bromide 17 1 inh inhalation DAILY 01/21/21 Unknown History mcg/actuation HFA aerosol inhaler (Atrovent HFA) trazodone 300 mg tablet 300 mg PO QHS 01/21/21 Unknown History vitamin B12 1 mg-folic acid 0.8 mg 1 tab PO DAILY 01/21/21 Unknown History tablet cyclobenzaprine 10 mg tablet 10 mg PO TID PRN Muscle Spasm #20 06/15/21 Unknown Rx TABLETS dulaglutide 0.75 mg/0.5 mL 1.5 mg subcut QWEEK #2 mL 08/05/23 Unknown Rx subcutaneous pen injector (Trulicity) Allergy/AdvReac Type Severity Reaction Status Date / Time latex Allergy Hives Verified 01/02/24 15:00 hydromorphone (From Dilaudid) AdvReac Vomiting Verified 01/02/24 15:00 Surgical History History of back surgery Previous back surgery Hx of appendectomy History of cholecystectomy Social History Smoking Status: Current every day smoker tobacco type: e-cigarettes substance use type: does not use ROS Constitutional Constitutional: Denies weight loss Gastrointestinal Gastrointestinal: Reports abdominal pain, nausea and vomiting; Denies constipation Genitourinary Genitourinary: Denies dysuria Musculoskeletal Musculoskeletal: Reports back pain Vital Signs Vital Signs Vital Signs: 01/02/24 15:00 01/02/24 17:00 Temperature 96.8 F L Temperature Source Temporal Pulse Rate 124 H 82 Respiratory Rate 20 H 18 Blood Pressure 132/95 H 138/94 H Blood Pressure Mean 107 108 Pulse Ox 97 95 Oxygen Delivery Method Room Air Physical Exam Const alert, oriented x3 and well nourished Resp normal respiratory effort GI GI Narrative: Morbidly obese, abdominal striae present, well-healed port site scars, no visible herniation, nondistended, soft, tender to palpation in the left abdominal quadrants which seems to be out of proportion to exam and left upper abdominal quadrant tenderness is greater than left lower quadrant tenderness Results Lab / Micro Data 01/02/24 15:30 01/02/24 15:30 Labs: Laboratory Results - last 24 hr 01/02/24 15:30: WBC 11.9 H, RBC 5.40, Hgb 15.4 H, Hct 46.8, MCV 86.7, MCH 28.5, MCHC 32.9, RDW Std Deviation 43.5, RDW Coeff of Lore 13.8, Plt Count 250, MPV 10.2, Immature Gran % (Auto) 0.600, Neut % (Auto) 59.2, Lymph % (Auto) 31.9, [place] % (Auto) 6.9, Eos % (Auto) 0.9, Baso % (Auto) 0.5, Absolute Neuts (auto) 7.1, Absolute Lymphs (auto) 3.81, Nucleated RBC % 0, Sodium 139, Potassium 3.9, Chloride 105, Carbon Dioxide 24.0, Anion Gap 10, BUN 18, Creatinine 0.92, Est GFR (MDRD) Af Amer 82, Est GFR (MDRD) Non-Af 68, BUN/Creatinine Ratio 19.6, Glucose 180 H, Calcium 10.1, Total Bilirubin 0.70, AST 40 H, ALT 47, Alkaline Phosphatase 89, Total Protein 8.4 H, Albumin 4.1, Globulin 4.3 H, Albumin/Globulin Ratio 1.0, Lipase 28 01/02/24 15:52: Urine Color Yellow, Urine Clarity Clear, Urine pH 8.0, Ur Specific [place] 1.015, Urine Protein 15 H, Urine Glucose (UA) Normal, Urine Ketones Negative, Urine Occult Blood Negative, Urine Nitrite Negative, Urine Bilirubin Negative, Urine Urobilinogen 1 H, Ur Leukocyte Esterase 25 H, Urine RBC 0 SEEN, Urine WBC 0-5 SEEN, Ur Squamous Epith Cells 0-5 SEEN, Urine Bacteria 0 SEEN, Hyaline Casts 0-5 SEEN, Urine Mucus 0 SEEN Imaging Radiology Impression Abdomen/Pelvis CT 01/02/24 16:23 IMPRESSION: Fluid distended proximal small intestine with distal decompressed loops. This may be due to a focal ileus or possibly developing obstruction. Follow-up is needed. Electronically Signed: Darryl Mendez DO at 17:36 EDT , Assessment & Plan Assessment/Plan (1) Nausea and vomiting in adult: PLAN: Patient with less than 24-hour history of acute onset abdominal pain (primary left-sided) with associated nausea and vomiting. She describes acute onset without warning earlier today. She has not been able to keep anything down but does state her nausea is presently controlled after being dosed an antiemetic by emergency medicine. Her CT imaging shows dilation of her small intestine, however, there is not simultaneous distention of the gastric body and radiology reads this as concerning for ileus versus developing obstruction. As stated, while she has had several bouts of emesis this is presently controlled so I do not believe she requires an NG tube at this time. I have briefed patient that should her symptoms return I would recommend placement of a nasogastric tube. In the meantime we will keep her n.p.o. It would seem unlikely that she has enough history of surgical intervention to produce adhesions that could cause an obstruction since both of her prior operations were laparoscopic and on the right side of her abdomen. I have informed patient that I would like to bring her in for further evaluation with probable small bowel follow-through tomorrow. In the interim I have consulted hospitalist service for assistance with patient's numerous comorbidities and medications while she is restricted for ability to take p.o. Luis Manuel Pate MD General Surgery Endocrine Surgery Pager: [facility] [address] [place] [address], [facility], [address] [place] [address] Office: [phone] (2) Abnormal abdominal CT scan: Charges/Coding Visit Charges Inpatient E&M: 47227 Init Hosp L2
[2024-01-02 19:00] VITALS: BP 142/94; PULSE 99; RESP 18; O2SAT 98
[2024-01-02 19:08] VITALS: BP 142/94; PULSE 99; RESP 18; TEMP 36.8; O2SAT 98
[2024-01-02 19:57] LABS: Lactic Acid 1.6 mmol/L (0.4-1.9)
[2024-01-02 20:05] VITALS: BP 134/96; PULSE 106; RESP 18; TEMP 36.4; O2SAT 95
[2024-01-02 20:07] VITALS: BMI 40.1
--- NOTE | 2024-01-02 20:23 | NURSING ---
pt is a poor historian
[2024-01-02] MEDS: 0.9% Saline Lock 10 ML Syringe IV ×2 (21:11→21:52)
[2024-01-02] MEDS: Morphine 2 MG/ML Syringe IV (21:11)
[2024-01-02] MEDS: Lactated Ringers 1,000 ML 125 ML IV (21:52)
[2024-01-03 03:14] VITALS: BP 133/94; PULSE 102; RESP 16; TEMP 36.5; O2SAT 95
[2024-01-03] MEDS: Morphine 2 MG/ML Syringe IV ×2 (03:19→07:54)
[2024-01-03] MEDS: Lactated Ringers 1,000 ML 125 ML IV ×2 (05:48→11:43)
[2024-01-03 07:17] LABS: Bedside Glucose 190 mg/dL (74-106)
[2024-01-03 07:37] LABS: Absolute Lymphocyte Count 3.14 X10^3/uL (0.83-4.51); Absolute Neutrophil Count 5.3 X10^3/uL (2.0-7.7); Basophil# 0.05 X10^3/uL; Basophil% 0.5 % (0-1); Eosinophil# 0.25 X10^3/uL; Eosinophils% 2.6 % (0-5); Hematocrit 42.9 % (37-47); Hemoglobin 14.1 g/dL (12.0-15.0); Lymphocyte # 3.14 X10^3/ul (0.83-4.51); Mean Corp Hgb Conc 32.9 g/dL (32-36); Mean Corpuscular Volume 88.1 fL (81-99); Mean Platelet Vol. 10.8 fl (6.2-12.0); Monocyte# 0.72 X10^3/uL; Monocyte% 7.6 % (0-10); NRBC Flagged by Analyzer 0 % (0-5); Neutrophil # 5.33 X10^3/uL (2.7-7.7); Neutrophil % 56.1 % (47-70); POSITIVE COUNT YES; Platelet Count 189 K/mm3 (150-450); RBC Distribution Width SD 45.1 fl (35.1-43.9); Red Blood Count 4.87 M/mm3 (4.2-5.4); White Blood Count 9.5 K/mm3 (4.4-11.0)
[2024-01-03] MEDS: Ondansetron 4 MG/2 ML Vial IV (07:54)
[2024-01-03 08:06] LABS: Anion Gap 6 (5-15); BUN 22 mg/dL (7-18); BUN/Creat Ratio 27.3 RATIO (10-20); Calcium,Total 9.2 mg/dL (8.5-10.1); Chloride 105 mmol/L (98-107); EST Glomerular Filtration Rate 79 mL/min (>60); Est Glom Filt Rate - Afr Amer 96 mL/min (>60); Estimated Creatinine Clearance 83.01 ml/min; Glucose 188 mg/dL (74-106); Magnesium 1.8 mg/dL (1.6-2.6); Phosphorus 4.5 mg/dL (2.5-4.9); Potassium 4.1 mmol/L (3.5-5.1); Sodium Level 140 mmol/L (136-145)
[2024-01-03 08:21] VITALS: BP 101/67; PULSE 85; RESP 18; TEMP 36.7; O2SAT 95
--- NOTE | 2024-01-03 08:22 | PCM.PN.SRG ---
Subjective Subjective Patient seen and examined during AM rounds. She is found resting in bed. She reports that her abdominal pain is overall improved but still present. She denies any additional vomiting overnight. She denies any passage of flatus or bowel movement Objective Data Objective Data Vital Signs: Vital Signs Temp Pulse Resp BP Pulse Ox O2 Del Method 97.7 F L 102 H 16 133/94 H 95 Room Air 01/03/24 03:14 01/03/24 03:14 01/03/24 03:14 01/03/24 03:14 01/03/24 03:14 01/03/24 03:14 Oxygen Delivery Method Room Air Weight: 205 lb 14.588 oz Body Mass Index (BMI) 40.1 Intake & Output: Intake and Output for Last 24 Hours 01/01/24 01/02/24 01/03/24 23:59 23:59 23:59 Intake Total 991.67 / 991.67 Output Total 300 / 300 Balance -300 / -300 991.67 / 991.67 Lab / Micro Data 01/03/24 07:10 01/03/24 07:10 Labs: Laboratory Results - last 24 hr 01/02/24 15:30: WBC 11.9 H, RBC 5.40, Hgb 15.4 H, Hct 46.8, MCV 86.7, MCH 28.5, MCHC 32.9, RDW Std Deviation 43.5, RDW Coeff of Lore 13.8, Plt Count 250, MPV 10.2, Immature Gran % (Auto) 0.600, Neut % (Auto) 59.2, Lymph % (Auto) 31.9, [place] % (Auto) 6.9, Eos % (Auto) 0.9, Baso % (Auto) 0.5, Absolute Neuts (auto) 7.1, Absolute Lymphs (auto) 3.81, Nucleated RBC % 0, Sodium 139, Potassium 3.9, Chloride 105, Carbon Dioxide 24.0, Anion Gap 10, BUN 18, Creatinine 0.92, Est GFR (MDRD) Af Amer 82, Est GFR (MDRD) Non-Af 68, BUN/Creatinine Ratio 19.6, Glucose 180 H, Calcium 10.1, Total Bilirubin 0.70, AST 40 H, ALT 47, Alkaline Phosphatase 89, Total Protein 8.4 H, Albumin 4.1, Globulin 4.3 H, Albumin/Globulin Ratio 1.0, Lipase 28 01/02/24 15:52: Urine Color Yellow, Urine Clarity Clear, Urine pH 8.0, Ur Specific [place] 1.015, Urine Protein 15 H, Urine Glucose (UA) Normal, Urine Ketones Negative, Urine Occult Blood Negative, Urine Nitrite Negative, Urine Bilirubin Negative, Urine Urobilinogen 1 H, Ur Leukocyte Esterase 25 H, Urine RBC 0 SEEN, Urine WBC 0-5 SEEN, Ur Squamous Epith Cells 0-5 SEEN, Urine Bacteria 0 SEEN, Hyaline Casts 0-5 SEEN, Urine Mucus 0 SEEN 01/02/24 19:04: Lactic Acid 1.6 01/03/24 06:52: POC Glucose 190 H 01/03/24 07:10: Sodium 140, Potassium 4.1, Chloride 105, Carbon Dioxide 29.0, Anion Gap 6, BUN 22 H, Creatinine 0.80, Estim Creat Clear Calc 83.01, Est GFR (MDRD) Af Amer 96, Est GFR (MDRD) Non-Af 79, BUN/Creatinine Ratio 27.3 H, Glucose 188 H, Calcium 9.2, Phosphorus 4.5, Magnesium 1.8 Radiography Diagnostic Testing: Radiology Impression Abdomen/Pelvis CT 01/02/24 16:23 IMPRESSION: Fluid distended proximal small intestine with distal decompressed loops. This may be due to a focal ileus or possibly developing obstruction. Follow-up is needed. Electronically Signed: Darryl Mendez DO at 17:36 EDT Reading Location ID and State: [address] [place] [address] Tel [phone], Service support , Physical Exam Const oriented x3 and no apparent distress Resp normal respiratory effort GI GI Narrative: Nondistended, soft, mildly tender to palpation across lower and upper left-sided abdominal quadrants. No peritoneal signs. Assessment & Plan Assessment/Plan (1) Nausea and vomiting in adult: PLAN: Patient with less than 24-hour history of acute onset abdominal pain (primary left-sided) with associated nausea and vomiting. Differential includes ileus versus obstruction versus more straightforward gastroenteritis. Patient with no complete return of bowel function, but has had some spontaneous improvement in her abdominal discomfort. It appears that she should be able to tolerate a contrast load so we will proceed with a small bowel follow-through. Patient is encouraged to sit out of bed in the chair and be pretreated with antiemetic before contrast administration. If she passes this study in the usual timing we will look to advance her diet. Luis Manuel Pate MD General Surgery Endocrine Surgery Pager: [facility] [address] [place] [address], [address] [place] [id number] Office: [phone] (2) Abnormal abdominal CT scan: Charges/Coding Visit Charges Inpatient E&M: 40924 Subs Hosp L2
--- NOTE | 2024-01-03 08:30 | RAD_ITS ---
CLINICAL HISTORY: Female, 53 years old. Abdominal pain PROCEDURE: Small bowel follow-through TECHNIQUE: (All elements of maximal sterile barrier technique followed, including US elements as applicable) Gastrografin was administered orally and multiple images of the abdomen were obtained over time. FINDINGS: An immediate image demonstrates Gastrografin throughout the stomach. The 3 hour image demonstrates oral contrast throughout the small bowel and colon without evidence of bowel dilatation to suggest bowel obstruction. RAD/Small Bowel Series Only IMPRESSION: No bowel obstruction. Electronically Signed: Osiel Del Angel MD at 14:01 EDT ,
[2024-01-03 09:00] LABS: Differential Indicated SCAN CRITERIA MET
[2024-01-03 11:00] VITALS: BP 111/70; PULSE 88; RESP 18; TEMP 37.2; O2SAT 95
[2024-01-03 12:09] LABS: Bedside Glucose 167 mg/dL (74-106)
--- NOTE | 2024-01-03 15:24 | CASEMGMT ---
Met with patient to complete VERDUGO form. VERDUGO form explained to patient who voiced understanding and signed form. Original form placed in pt?s chart and copy provided to patient. Latosha Swift, Discharge Planning Asst
--- NOTE | 2024-01-03 16:31 | DCINST_ITS ---
Discharge Instructions Diet Discharge Diet: Light diet - advance as tolerated Activity Discharge Activity: Return to Normal Activity Follow Up Care Please Follow Up With: Luis Manuel Pate MD When: Follow-up as needed Test Results: Test results from this visit will be discussed in further detail at your follow- up appointment, if applicable. Discharge Plan Admission Admit Date/Time: 01/02/24 18:38 Primary Reason for Your Visit: Ileus Attending Provider: Luis Manuel Pate Primary Care Provider: Sophie Huitron Consulting Providers: Shree Bernabe Instructions Additional Instructions / Restrictions: You had a small bowel follow-through during your hospitalization, which did not demonstrate a bowel obstruction. Discharge Orders/Prescriptions Prescriptions: Continued atorvastatin 10 MG tablet 10 mg PO DAILY levothyroxine 25 MCG tablet 25 mcg PO DAILY metformin 1,000 MG tablet 1,000 mg PO BID albuterol sulfate [ProAir HFA] 1 PUFF inhaler 2 puff inhalation Q4H PRN PRN (Reason: shortness of breath) insulin glargine 100 UNIT/ML insulin pen 18 unit SQ BREAKFAST trazodone 300 mg tablet 300 mg PO QHS Patient Comments: TAKE 1 TABLET BY MOUTH EVERY DAY AT BEDTIME NEEDED vitamin R18-mnkjg acid 1-0.8 mg Tablet 1 tab PO DAILY Atrovent HFA 17 mcg/actuation Hfa Aerosol Inhaler 1 inh INHALATION DAILY alpha lipoic acid 600 mg capsule 600 mg PO DAILY Patient Comments: TAKE 1 CAPSULE BY MOUTH EVERY DAY topiramate 25 mg tablet 25 mg PO QHS topiramate 50 mg tablet 50 mg PO QHS trospium 20 mg tablet 20 mg PO QHS pregabalin 150 mg capsule 150 mg PO BID Trulicity 0.75 mg/0.5 mL pen injector 1.5 mg subcut QWEEK Qty: 2 0RF Referrals / Follow Up: Sophie Huitron MD [Primary Care Provider] - Disposition Disposition (needs filled in before D/C Order can be placed): Home, Self Care
--- NOTE | 2024-01-03 16:31 | PCM.PN.BLA ---
Assessment & Plan Assessment/Plan (1) Nausea and vomiting in adult: PLAN: Patient nausea and vomiting have resolved. She tolerate her current diet. She completed a small bowel follow-through, which demonstrated no bowel obstruction. Patient has had a large loose bowel movement successfully. Her abdomen is soft. She is ready for discharge. Follow-up with our office as needed.
[2024-01-03 17:04] LABS: Bedside Glucose 204 mg/dL (74-106)
--- NOTE | 2024-01-03 17:08 | PCM.PN.HOSP ---
Reason for Visit Reason for Visit: Diagnoses Nausea with vomiting, unspecified (01/02/24) Abnormal findings on diagnostic imaging of other abdominal regions, including retroperitoneum (01/02/24) Subjective Subjective Patient seen and examined at the request of surgery today for medical management, she was admitted with an ileus, I talked with general surgery today and it is likely she will be discharged home. I adjusted her sliding scale insulin earlier today. Other chronic medical problems include hypothyroidism and hyperlipidemia. Objective Data Objective Data Vital Signs: Vital Signs Temp Pulse Resp BP Pulse Ox O2 Del Method 98.9 F 88 18 111/70 95 Room Air 01/03/24 11:00 01/03/24 11:00 01/03/24 11:00 01/03/24 11:00 01/03/24 11:00 01/03/24 11:00 Oxygen Delivery Method Room Air Weight: 93.4 kg Body Mass Index (BMI) 40.1 Intake & Output: Intake and Output for Last 24 Hours 01/01/24 01/02/24 01/03/24 23:59 23:59 23:59 Intake Total 2297.25 / 2297.25 Output Total 300 / 300 Balance -300 / -300 2297.25 / 2297.25 Lab / Micro Data 01/03/24 07:10 01/03/24 07:10 Labs: Laboratory Results - last 24 hr 01/02/24 19:04: Lactic Acid 1.6 01/03/24 06:52: POC Glucose 190 H 01/03/24 07:10: WBC 9.5, RBC 4.87, Hgb 14.1, Hct 42.9, MCV 88.1, MCH 29.0, MCHC 32.9, RDW Std Deviation 45.1 H, RDW Coeff of Lore 14.0, Plt Count 189, MPV 10.8, Immature Gran % (Auto) 0.200, Neut % (Auto) 56.1, Lymph % (Auto) 33.0, [place] % (Auto) 7.6, Eos % (Auto) 2.6, Baso % (Auto) 0.5, Absolute Neuts (auto) 5.3, Absolute Lymphs (auto) 3.14, Nucleated RBC % 0, Sodium 140, Potassium 4.1, Chloride 105, Carbon Dioxide 29.0, Anion Gap 6, BUN 22 H, Creatinine 0.80, Estim Creat Clear Calc 83.01, Est GFR (MDRD) Af Amer 96, Est GFR (MDRD) Non-Af 79, BUN/Creatinine Ratio 27.3 H, Glucose 188 H, Calcium 9.2, Phosphorus 4.5, Magnesium 1.8 01/03/24 11:40: POC Glucose 167 H 01/03/24 16:39: POC Glucose 204 H Radiography Diagnostic Testing: Radiology Impression Abdomen/Pelvis CT 01/02/24 16:23 IMPRESSION: Fluid distended proximal small intestine with distal decompressed loops. This may be due to a focal ileus or possibly developing obstruction. Follow-up is needed. Electronically Signed: Darryl Mendez DO at 17:36 EDT , Small Bowel X-Ray 01/03/24 08:30 IMPRESSION: No bowel obstruction. Electronically Signed: Osiel Del Angel MD at 14:01 EDT , Physical Exam Const alert, oriented x3 and no apparent distress Constitutional Narrative: Patient is morbidly obese General Appearance: cooperative, well kempt and well developed Orientation / Consciousness: awake, oriented to person, oriented to place and oriented to time HEENT normocephalic, head/scalp atraumatic and moist oral mucous membranes Eyes PERRL, EOMs intact bilaterally and conjunctivae normal Neck supple, no JVD, thyroid normal and no carotid bruits General: trachea midline Resp normal respiratory effort, no retractions, no use of accessory muscles and clear to auscultation bilaterally Auscultation: Negative for rales, rhonchi or wheezes Cardio regular rate, regular rhythm, S1 normal heart sound, S2 normal heart sound, no murmurs, no rub and no gallops GI normal to inspection, nondistended, normoactive bowel sounds, soft to palpation, non-tender and non-distended Extremity no clubbing, cyanosis or edema Skin no rashes or lesions noted General Skin Exam: no breakdown Neuro oriented x3, CN's II-XII intact bilaterally, no focal motor deficits and no sensory deficits noted Sensorium / Orientation: awake and alert Speech: speech normal Psych affect normal Assessment & Plan Assessment/Plan (1) Diabetes: PLAN: Plan 1. Type 2 diabetes-I would recommend patient resume her previous medications for type 2 diabetes when she is discharged home, she will continue to receive fingerstick blood sugars while she is in the hospital #2 hyperlipidemia-patient is to remain on her statin when she is discharged #3 overactive bladder-patient's remain on her home medications when she is discharged home #4 morbid obesity-complicates care, management, recovery, and prognosis #5 hypothyroidism-patient will remain on Synthroid as an outpatient #6 nausea and vomiting-resolved at this time, general surgery has written a discharge order for the patient. Total clinical time spent by myself addressing the patient's medical issues, reviewing all of her data, and collaborating with patient's care team: 25 minutes Charges/Coding Visit Charges Office Visits / Consults: [id number] OV L3 Est 20min
== END 2024-01-03 17:51 | disposition home or self-care (01) ==
LOC: ED 15:31 → MS3 19:10
PROVIDERS: Admitting Provider Surgery; Emergency Provider Student in an Organized Health Care Education/Training Program; PCP Family Medicine; Visit Provider Surgery
DX: K56.7 Ileus, unspecified (principal); F31.9 Bipolar disorder, unspecified; E66.01 Morbid (severe) obesity due to excess calories; Z68.41 Body mass index [BMI] 40.0-44.9, adult; E11.9 Type 2 diabetes mellitus without complications; Z79.4 Long term (current) use of insulin; F17.290 Nicotine dependence, other tobacco product, uncomplicated; Z79.85 Long-term (current) use of injectable non-insulin antidiabetic drugs; E78.00 Pure hypercholesterolemia, unspecified; I10 Essential (primary) hypertension; E03.9 Hypothyroidism, unspecified; Z79.899 Other long term (current) drug therapy; Z79.890 Hormone replacement therapy; N32.81 Overactive bladder
CPT/HCPCS: 74177; 74250; 80048; 80053; 81001; 82962; 83605; 83690; 83735; 84100; 85025; 96361; 96374; 96375; 96376; 97802; 99221; 99285; 99406; J7120; Q9967; A4216; G0378; J2405

== ENCOUNTER 2024-01-10 12:14 | Emergency (ER) | payer MEDICARE, MEDICAID, SELFPAY ==
[2024-01-10 12:14] VITALS: BP 135/89; PULSE 105; RESP 16; TEMP 36.6; O2SAT 98; BMI 37.8
--- NOTE | 2024-01-10 12:36 | EX.ED.DYSGE1 ---
HPI History of Present Illness Chief Complaint: Abd Pain [facility] Medical History Chronic headaches Diabetes Chronic pain Endometrial polyp Wears glasses Depression Anxiety Alcohol use Arthritis High cholesterol Injury of back Migraine headache Smoker CPAP (continuous positive airway pressure) dependence Sleep apnea History of stress test Hypertension Diabetes mellitus type 2 in obese Hypothyroidism Bipolar disorder Asthma Home Medications ?Medication ?Instructions ?Recorded ?Last Taken ?Type atorvastatin 10 mg tablet 10 mg PO DAILY cholesterol lowering 02/27/16 09/04/18 11:00 History levothyroxine 25 mcg tablet 25 mcg PO DAILY thyroid 02/27/16 01/28/21 08:00 History albuterol sulfate 90 mcg/actuation 2 puff inhalation Q4H PRN PRN 03/23/18 08/29/18 15:00 History aerosol inhaler (ProAir HFA) shortness of breath metformin 1,000 mg tablet 1,000 mg PO BID blood sugar 03/23/18 09/04/18 22:00 History insulin glargine 100 unit/mL (3 18 unit SQ BREAKFAST 05/10/19 Unknown History mL) subcutaneous pen alpha lipoic acid 600 mg capsule 600 mg PO DAILY 01/21/21 Unknown History ipratropium bromide 17 1 inh inhalation DAILY 01/21/21 Unknown History mcg/actuation HFA aerosol inhaler (Atrovent HFA) trazodone 300 mg tablet 300 mg PO QHS 01/21/21 Unknown History vitamin B12 1 mg-folic acid 0.8 mg 1 tab PO DAILY 01/21/21 Unknown History tablet dulaglutide 0.75 mg/0.5 mL 1.5 mg subcut QWEEK #2 mL 08/05/23 Unknown Rx subcutaneous pen injector (Trulicity) pregabalin 150 mg capsule 150 mg PO BID 01/03/24 Unknown History topiramate 25 mg tablet 25 mg PO QHS headache 01/03/24 Unknown History topiramate 50 mg tablet 50 mg PO QHS 01/03/24 Unknown History trospium 20 mg tablet 20 mg PO QHS 01/03/24 Unknown History ondansetron 4 mg disintegrating 4 mg PO Q8H PRN PRN Nausea #10 tabs 01/10/24 Unknown Rx tablet Allergy/AdvReac Type Severity Reaction Status Date / Time latex Allergy Hives Verified 07/24/24 12:14 hydromorphone (From Dilaudid) AdvReac Vomiting Verified 01/10/24 12:14 Surgical History S/P hysterectomy History of appendectomy History of cholecystectomy History of back surgery Previous back surgery Hx of appendectomy History of cholecystectomy Social History Smoking Status: Current every day smoker tobacco type: e-cigarettes substance use type: does not use EXAM Physical Exam Const Vital Signs: 01/10/24 12:14 01/10/24 14:14 Temperature 98 F Temperature Source Temporal Pulse Rate 105 H 81 Respiratory Rate 16 18 Blood Pressure 135/89 H 118/81 H Blood Pressure Mean 104 93 Pulse Ox 98 99 Oxygen Delivery Method Room Air Room Air MDM MDM MDM Narrative Medical decision making narrative: HISTORY OF PRESENT ILLNESS: 53-year-old female past medical history of alcohol abuse, anxiety, type 2 diabetes, bipolar disorder, hypertension, JAELYN, status post appendectomy and cholecystectomy, presents abdominal pain nausea vomiting. She states REVIEW OF SYSTEMS: Pertinent positives: Abdominal pain, nausea, vomiting Pertinent negatives: Fever, blood in stool, chest pain, shortness of breath PHYSICAL EXAM: Nursing triage notes reviewed, Vital signs reviewed Constitutional: please see mdm HENT: MMM Eyes: Pupils equal round and reactive to light, Extraocular muscles intact Neck: No stridor, no JVD, full neck ROM Lungs: Clear to auscultation, No wheezing or rales. No increased work of breathing, no conversational dyspnea, no accessory muscle use, no nasal flaring. No respiratory distress noted Heart: Regular rate and rhythm, No murmurs, No rubs and No gallops, 2+ distal pulses (radial, femoral, posterior tibial) in all extremities Abdomen: Soft, there is no tenderness, rigidity, rebound or guarding, no obvious peritoneal signs, no palpable pulsatile abdominal masses, no auscultated abdominal bruit : No CVAT Extremities: No edema Neuro: No focal neurological deficits, cranial nerves II through XII intact, 5/5 strength in all extremities. Intact sensation to light touch in all extremities, 2+ reflexes bilateral patella tendons. Normal gait. No ataxia. Skin: No rash or lesions noted MEDICAL DECISION MAKING: Chief Complaint: Abdominal pain External records reviewed: Prior imaging reviewed: CT scan abdomen pelvis from 01/02/2024 showed ileus versus early obstruction. Patient is admitted under Dr. Pate at that time. Factors affecting care: Small bowel obstruction, type 2 diabetes, intra-abdominal surgery Social determinants of health: History of alcohol abuse History obtained from others: none Consults: General Surgery ([place]) [facility] Narrative: The patient was initially mildly tachycardic otherwise afebrile nontoxic-appearing. Exam was benign with no obvious distention or peritoneal signs. I considered the following differential diagnosis: AAA, small bowel obstruction, abdominal perforation, appendicitis, pancreatitis, hepatobiliary pathology (acute cholecystitis), mesenteric ischemia, pathology (ie nephrolithiasis, pyelonephritis). I obtained a broad lab and imaging workup to further elucidate etiology of patient complaint. IVs established, treat the patient with 1 L IV fluid, 15 mg of IV Toradol, 4 mg IV Zofran ALL IMAGES (IF OBTAINED) HAVE BEEN PERSONALLY REVIEWED AND INTERPRETED BY MYSELF. CT scan abdomen pelvis shows no evidence of acute surgical pathology specifically shows improvement from prior CT scan Lactate is wnl indicating no end-organ hypoperfusion and/or hypoxia. CBC with leukocytosis suggestive of systemic inflammation otherwise no anemia or thrombocytopenia BMP without evidence of significant electrolyte abnormalities, no anion gap, no acute kidney injury. Urinalysis shows no evidence of urinary inflammation suggestive of UTI Urine test is negative Repeat abdominal exam is benign. Given patient's recent small bowel obstruction and general surgery evaluation consulted Dr. Pate. He reviewed her history, labs and images and recommended no admission at this time. He recommended a p.o. challenge in the emergency department. In the past discharge. He further recommended advancing diet slowly initially with a soft, low fiber diet for 2 weeks. P.o. challenge was successful. Patient able tolerate p.o. He is appropriate discharge home. She was prescribed Zofran for nausea vomiting control. Strict return precautions were discussed The patient and/or family, caregivers express understanding. The patient and/or family, caregivers agrees with the plan. Shared decision making: I will have a discussion with the patient and or visitors regarding risk/benefits of further testing or admission. They will be made aware of of the risk/benefits inherent in this decision they will be given the opportunity to voice understanding. Total critical care time today provided was at least 0 minutes. This excludes separately billable procedures. Critical care time (if documented) is secondary to the patient having high probability of clinically significant/life threatening deterioration in the patient's condition which required my urgent intervention. Impression: 1. Abdominal pain 2. Nausea and vomiting 3. History of small bowel obstruction Dispo: discharge This note was generated with [employer] dictation software. It may contain incorrect words, spelling, and punctuation that were not noted in review of the chart prior to signing. Lab Data Labs: Laboratory Results - last 24 hr 01/10/24 01/10/24 12:43 12:50 WBC 12.2 H RBC 4.73 Hgb 13.7 Hct 41.4 MCV 87.5 MCH 29.0 MCHC 33.1 RDW Std Deviation 44.6 H RDW Coeff of Lore 14.0 Plt Count 205 MPV 10.3 Immature Gran % (Auto) 0.700 Neut % (Auto) 73.2 H Lymph % (Auto) 20.6 [place] % (Auto) 4.5 Eos % (Auto) 0.5 Baso % (Auto) 0.5 Absolute Neuts (auto) 8.9 H Absolute Lymphs (auto) 2.50 Nucleated RBC % 0 Sodium 141 Potassium 3.6 Chloride 107 Carbon Dioxide 25.0 Anion Gap 9 BUN 17 Creatinine 0.87 Estim Creat Clear Calc 73.74 Est GFR (MDRD) Af Amer 88 Est GFR (MDRD) Non-Af 73 BUN/Creatinine Ratio 19.6 Glucose 187 H Lactic Acid 1.7 Calcium 9.1 Total Bilirubin 0.50 Direct Bilirubin 0.17 AST 25 ALT 37 Alkaline Phosphatase 80 Total Protein 7.2 Albumin 3.5 Globulin 3.7 Lipase 23 Urine Color Yellow Urine Clarity Sl. Cloudy Urine pH 7.0 Ur Specific [place] 1.015 Urine Protein 15 H Urine Glucose (UA) Normal Urine Ketones Negative Urine Occult Blood Negative Urine Nitrite Negative Urine Bilirubin Negative Urine Urobilinogen Normal Ur Leukocyte Esterase 25 H Urine Test Negative Radiography Diagnostic Testing: Clinical Impression(s) from Imaging Studies Abdomen/Pelvis CT 01/10/24 13:50 IMPRESSION: Interval improvement of the small bowel dilatation although residuum mildly dilated proximal small bowel loops with abnormally thickened wall. Electronically Signed: Wayne Cooper MD at 14:08 EDT , Discharge Plan Triage Chief Complaint: Abd Pain ED Provider: Bubba Byers Dx/Rx/DC Orders Prescriptions: New ondansetron 4 mg tablet,disintegrating 4 mg PO Q8H PRN PRN (Reason: Nausea) Qty: 10 0RF No Action atorvastatin 10 MG tablet 10 mg PO DAILY levothyroxine 25 MCG tablet 25 mcg PO DAILY metformin 1,000 MG tablet 1,000 mg PO BID albuterol sulfate [ProAir HFA] 1 PUFF inhaler 2 puff inhalation Q4H PRN PRN (Reason: shortness of breath) insulin glargine 100 UNIT/ML insulin pen 18 unit SQ BREAKFAST trazodone 300 mg tablet 300 mg PO QHS Patient Comments: TAKE 1 TABLET BY MOUTH EVERY DAY AT BEDTIME NEEDED vitamin L94-wlrin acid 1-0.8 mg Tablet 1 tab PO DAILY Atrovent HFA 17 mcg/actuation Hfa Aerosol Inhaler 1 inh INHALATION DAILY alpha lipoic acid 600 mg capsule 600 mg PO DAILY Patient Comments: TAKE 1 CAPSULE BY MOUTH EVERY DAY topiramate 25 mg tablet 25 mg PO QHS topiramate 50 mg tablet 50 mg PO QHS trospium 20 mg tablet 20 mg PO QHS pregabalin 150 mg capsule 150 mg PO BID Patient Comments: pt states she no longer takes this med Trulicity 0.75 mg/0.5 mL pen injector 1.5 mg subcut QWEEK Qty: 2 0RF Primary Care Provider: Sophie Huitron Referrals: Sophie Huitron MD [Primary Care Provider] - Activity Restrictions/Additional Instructions: Thank you for trusting us with your care today! Please take Tylenol (2 pills, 650 mg), ibuprofen (2 pills, 400 mg) every 6 hours as needed for pain and fever control. Please take Zofran as needed for nausea vomiting control. Please return to the emergency department if your symptoms change or worsen. Specifically develop severe abdominal pain, if you develop vomiting that is not improved by Zofran, he does not have bowel movements for greater than 1 week. Please follow with your primary care physician for further outpatient evaluation and management. Print Language: Kosovan Disposition Disposition: Home, Self Care
[2024-01-10] MEDS: Ketorolac 15 MG/ML Vial IV (12:43)
[2024-01-10] MEDS: 0.9% Normal Saline (1000mL) 1,000 ML 999 ML IV (12:43)
[2024-01-10] MEDS: Ondansetron 4 MG/2 ML Vial IV (12:43)
[2024-01-10 12:53] LABS: Absolute Neutrophil Count 8.9 X10^3/uL (2.0-7.7); Basophil# 0.06 X10^3/uL; Basophil% 0.5 % (0-1); Eosinophil# 0.06 X10^3/uL; Eosinophils% 0.5 % (0-5); Hematocrit 41.4 % (37-47); Hemoglobin 13.7 g/dL (12.0-15.0); Lymphocyte % 20.6 % (19-41); Mean Corp Hgb Conc 33.1 g/dL (32-36); Mean Corpuscular Volume 87.5 fL (81-99); Mean Platelet Vol. 10.3 fl (6.2-12.0); Monocyte# 0.55 X10^3/uL; Monocyte% 4.5 % (0-10); NRBC Flagged by Analyzer 0 % (0-5); Neutrophil % 73.2 % (47-70); Platelet Count 205 K/mm3 (150-450); RBC Distribution Width SD 44.6 fl (35.1-43.9); Red Blood Count 4.73 M/mm3 (4.2-5.4); White Blood Count 12.2 K/mm3 (4.4-11.0)
[2024-01-10 12:59] LABS: Color, Urine Yellow (Yellow); Glucose, Dipstick Normal (Normal); Ketone-Dipstick Negative (Negative); Leukocyte Esterase-Dipstick 25 /ul (Negative); Nitrite-Dipstick Negative (Negative); Occult Blood-Urine Negative /ul (Negative); Protein-Dipstick 15 mg/dl (Negative); Specific Gravity, Urine 1.015 (1.002-1.030); Urine Bilirubin Dipstick Negative (Negative); Urine Clarity Sl. Cloudy (Clear); Urine Urobilinogen Normal (Normal)
[2024-01-10 13:01] LABS: Internal QC Validated? YES +Cl - CLEAR BKGD; Pregnancy, Urine Negative Negative
[2024-01-10 13:20] LABS: Lactic Acid 1.7 mmol/L (0.4-1.9)
[2024-01-10 13:42] LABS: AST(SGOT) 25 U/L (15-37); Alanine Aminotransfer ALT/SGPT 37 U/L (13-56); Albumin, Serum 3.5 g/dL (3.2-5.0); Alkaline Phosphatase 80 U/L (45-117); Anion Gap 9 (5-15); BUN 17 mg/dL (7-18); BUN/Creat Ratio 19.6 RATIO (10-20); Bilirubin, Direct 0.17 mg/dL (0.00-0.30); Calcium,Total 9.1 mg/dL (8.5-10.1); Chloride 107 mmol/L (98-107); Creatinine, Serum 0.87 mg/dL (0.55-1.02); EST Glomerular Filtration Rate 73 mL/min (>60); Est Glom Filt Rate - Afr Amer 88 mL/min (>60); Estimated Creatinine Clearance 73.74 ml/min; Globulin 3.7 g/dL (2.2-4.2); Glucose 187 mg/dL (74-106); Lipase 23 U/L (13-75); Potassium 3.6 mmol/L (3.5-5.1); Protein, Total 7.2 g/dL (6.4-8.2); Sodium Level 141 mmol/L (136-145)
--- NOTE | 2024-01-10 13:50 | CT_ITS ---
STUDY: CT ABDOMEN AND PELVIS WITH CONTRAST REASON FOR EXAM: Female, 53 years old. Abdominal pain, recent small bowel obstruction RADIATION DOSAGE (If Supplied By Facility): CTDIvol = ( 16.48 ) mGy, DLP = ( 1441.53 ) mGycm TECHNIQUE: Transaxial images were obtained from the dome of the diaphragm to the symphysis pubis without oral contrast. IV 100mL Isovue-300 was administered. Sagittal and coronal images were reconstructed. Individualized dose optimization techniques were used for this CT. COMPARISON: Comparison is made with prior study dated January 02, 2024. FINDINGS: Findings suggest a mild degree of bibasilar linear atelectasis. The visualized portions of the heart are within normal limits. There is decreased attenuation of the liver consistent with steatosis. The patient is status post cholecystectomy. Normal spleen. Normal pancreas. Normal bilateral adrenal glands. Normal right kidney. Normal left kidney. Normal visualized stomach. Mild degree of residual dilatation of proximal small bowel loops. Several of these proximal small bowel loops have a thickened wall. There has been improvement as compared to prior study. Enteritis should be ruled out. The distal small bowel loops are decompressed. There are scattered colonic diverticula consistent with diverticulosis. There is non-visualization of the appendix. Normal abdominal aorta. Normal inferior vena cava. Normal retroperitoneum. Normal urinary bladder. There is absence of the uterus consistent with a prior hysterectomy. Normal abdominal wall. There are mild degenerative changes of the visualized lumbar spine. CT/Abdomen/Pelvis W IV Cont ONLY IMPRESSION: Interval improvement of the small bowel dilatation although residuum mildly dilated proximal small bowel loops with abnormally thickened wall. Electronically Signed: Wayne Cooper MD at 14:08 EDT ,
[2024-01-10 14:14] VITALS: BP 118/81; PULSE 81; RESP 18; O2SAT 99
[2024-01-10 15:09] VITALS: BP 122/83; PULSE 71; RESP 16; TEMP 36.6; O2SAT 99
== END 2024-01-10 15:09 | disposition home or self-care (01) ==
PROVIDERS: Emergency Provider Emergency Medicine; PCP Family Medicine; Visit Provider Emergency Medicine
DX: R10.9 Unspecified abdominal pain (principal); F31.9 Bipolar disorder, unspecified; E11.9 Type 2 diabetes mellitus without complications; R11.2 Nausea with vomiting, unspecified; F17.290 Nicotine dependence, other tobacco product, uncomplicated; Z90.89 Acquired absence of other organs; F41.9 Anxiety disorder, unspecified; E78.00 Pure hypercholesterolemia, unspecified; I10 Essential (primary) hypertension; J45.909 Unspecified asthma, uncomplicated; Z98.890 Other specified postprocedural states; F10.11 Alcohol abuse, in remission; Z87.19 Personal history of other diseases of the digestive system
CPT/HCPCS: 74177; 80048; 80076; 81002; 81025; 83605; 83690; 85025; 96361; 96374; 96375; 99283; J7030; Q9967; A4216; J2405

== ENCOUNTER → 2024-02-27 | Outpatient (CLI) | payer MEDICARE, MEDICAID, SELFPAY ==
--- NOTE | 2024-02-27 12:28 | CT_ITS ---
STUDY: LOW DOSE CT LUNG CANCER SCREENING REASON FOR EXAM: Female, 53 years old. Lung cancer screening -- and gt;20 pk yr hx;former smoker; asymptomatic. Patient quit 6 months ago. RADIATION DOSAGE (If Supplied By Facility): CTDIvol = ( 3.02 ) mGy, DLP = ( 87.24 ) mGycm TECHNIQUE: No contrast was administered. Low dose technique was utilized (average mAS-38 and kVp 120). 1.25 mm axial source images with a slice interval of 1.25-mm were reconstructed in lung windows. 2.5 mm axial source images with a slice interval of 2.5-mm were reconstructed in lung windows. 5.0 mm axial source images with a slice interval of 5.0-mm were reconstructed in soft tissue windows. COMPARISON: None. NODULES: No suspicious nodules are seen. Emphysema: Elevation of the right hemidiaphragm. Mild scarring at the lung bases. Endobronchial lesion: None Aorta: Unremarkable CORONARY ARTERIES: Coronary artery calcification is seen. Heart: Unremarkable Pulmonary artery: Unremarkable Mediastinal nodes: Unremarkable Other chest and abdominal findings: CT/Low Dose CT Lung Screening IMPRESSION: Lung-RADS category 2 - Continue annual screening with LDCT in 12 months. IMPORTANT NOTES FOR USE: ACR Lung-RADS Version 1.1 Assessment Categories Release Date: 2018 Category: Coded 0-4 bases on nodule(s) with highest degree of suspicion. Negative screen is defined as categories 1 and 2; a positive screen is defined as categories 3 and 4. Category 3 and 4A nodules that are unchanged on interval CT should be coded as category 2, and individuals returned to screening in 12 months. Category 4X: Category 3 or 4 nodules with additional imaging findings that increase the suspicion of lung cancer, such as spiculation, GGN that doubles in size in 1 year, enlarged lymph notes, etc. Category Modifiers: S (significant finding unrelated to lung cancer) Electronically Signed: Wayne Cooper MD at 13:17 EDT ,
== END | disposition home or self-care (01) ==
LOC: CT 12:28
PROVIDERS: PCP Family Medicine; Referring Provider Nurse Practitioner Family; Visit Provider Nurse Practitioner Family
DX: Z12.2 Encounter for screening for malignant neoplasm of respiratory organs (principal); Z87.891 Personal history of nicotine dependence
CPT/HCPCS: 71271

== ENCOUNTER 2024-03-28 09:16 | Emergency (ER) | payer MEDICARE, MEDICAID, SELFPAY ==
[2024-03-28 09:16] VITALS: BP 114/74; PULSE 99; RESP 18; TEMP 36.6; O2SAT 99; BMI 41.4
--- NOTE | 2024-03-28 09:25 | EKG12_ITS ---
Test Reason : ABD PAIN Blood Pressure : / mmHG Vent. Rate : 076 BPM Atrial Rate : 076 BPM P-R Int : 140 ms QRS Dur : 080 ms QT Int : 386 ms P-R-T Axes : 037 015 003 degrees QTc Int : 434 ms Normal sinus rhythm with sinus arrhythmia Normal ECG Confirmed by RUTHIE JORDAN, BRODY ([id number]), newspaper editor managing SERAFIN TRISTAN ([id number]) on 03/29/2024 2:13:06 PM Referred By: TB Confirmed By:BRODY HEDNRICKS MD
[2024-03-28 09:34] LABS: Absolute Lymphocyte Count 3.07 X10^3/uL (0.83-4.51); Absolute Neutrophil Count 5.2 X10^3/uL (2.0-7.7); Basophil# 0.05 X10^3/uL; Basophil% 0.6 % (0-1); Eosinophil# 0.19 X10^3/uL; Eosinophils% 2.1 % (0-5); Hematocrit 47.8 % (37-47); Hemoglobin 15.1 g/dL (12.0-15.0); Lymphocyte # 3.07 X10^3/ul (0.83-4.51); Lymphocyte % 33.8 % (19-41); Mean Corp Hgb Conc 31.6 g/dL (32-36); Mean Corpuscular Hgb 28.3 pg (27.0-32.0); Mean Corpuscular Volume 89.7 fL (81-99); Mean Platelet Vol. 10.6 fl (6.2-12.0); Monocyte# 0.51 X10^3/uL; Monocyte% 5.6 % (0-10); NRBC Flagged by Analyzer 0 % (0-5); Neutrophil # 5.21 X10^3/uL (2.7-7.7); Neutrophil % 57.5 % (47-70); Platelet Count 205 K/mm3 (150-450); RBC Distribution Width CV 13.4 % (11.6-14.6); RBC Distribution Width SD 44.1 fl (35.1-43.9); Red Blood Count 5.33 M/mm3 (4.2-5.4); White Blood Count 9.1 K/mm3 (4.4-11.0)
--- NOTE | 2024-03-28 09:42 | CT_ITS ---
STUDY: CT ABDOMEN AND PELVIS WITH CONTRAST REASON FOR EXAM: Female, 53 years old. LLQ pain x 3 days, nausea/vomiting/diarrhea, prior cholecystectomy, appendectomy, hysterectomy, back surgery. RADIATION DOSAGE (If Supplied By Facility): CTDIvol = ( 21.26 ) mGy, DLP = ( 1344.38 ) mGycm TECHNIQUE: Transaxial images were obtained from the dome of the diaphragm to the symphysis pubis without oral contrast. ml of 100mL Isovue-300 contrast was administered. Sagittal and coronal images were reconstructed. Individualized dose optimization techniques were used for this CT. COMPARISON: CT of abdomen and pelvis dated January 10, 2024 FINDINGS: The visualized lung bases are unremarkable. The visualized portions of the heart are within normal limits. Mildly cirrhotic liver. No liver masses or ductal dilatation is present. There is non-visualization of the gallbladder, which may be secondary to either contraction or a prior cholecystectomy. Normal spleen. Normal pancreas. Normal bilateral adrenal glands. Normal right kidney. Normal left kidney. Normal visualized stomach. Normal small intestine. Normal colon. There are surgical clips in the region of the appendix consistent with a prior appendectomy. No bowel dilatation or free air or free fluid. No bowel wall thickening is present. No colonic diverticula are seen. Prior hysterectomy. There is diffuse atherosclerotic calcification of the abdominal aorta, without a demonstrated aneurysm. Normal inferior vena cava. Normal retroperitoneum. Normal urinary bladder. Normal abdominal wall. There are diffuse degenerative changes of the visualized lumbar spine. CT/Abdomen/Pelvis W IV Cont ONLY IMPRESSION: 1. No acute process of the abdomen and pelvis. 2. Mildly cirrhotic liver Electronically Signed: Tim Limon MD at 11:09 EDT ,
--- NOTE | 2024-03-28 10:06 | EDS_ITS ---
HPI History of Present Illness Chief Complaint: Abd Pain Narrative Narrative: Patient is a 53-year-old female past medical history of tobacco use, diabetes, anxiety, JAELYN, hypertension, bipolar disorder who presented to the emergency department with a chief complaint of abdominal pain. Patient states that she has had abdominal pain for about 3 days now that has been getting progressively worse. Patient states that she has had diarrhea denies any black stools or blood in her stool. Patient states that her pain has progressively been worsening which prompted her here further evaluation management. Patient states that she did have an obstruction in her abdomen before. Patient states that she is nauseous. Denies vomiting. Denies any sick contacts. Patient states that she has had her gallbladder and her appendix removed [facility] Medical History History of tobacco use Encounter for screening for malignant neoplasm of lung Chronic headaches Diabetes Chronic pain Endometrial polyp Wears glasses Depression Anxiety Alcohol use Arthritis High cholesterol Injury of back Migraine headache Smoker CPAP (continuous positive airway pressure) dependence Sleep apnea History of stress test Hypertension Diabetes mellitus type 2 in obese Hypothyroidism Bipolar disorder Asthma Home Medications ?Medication ?Instructions ?Recorded ?Last Taken ?Type atorvastatin 10 mg tablet 10 mg PO DAILY cholesterol lowering 02/27/16 09/04/18 11:00 History levothyroxine 25 mcg tablet 25 mcg PO DAILY thyroid 02/27/16 01/28/21 08:00 History albuterol sulfate 90 mcg/actuation 2 puff inhalation Q4H PRN PRN 03/23/18 08/29/18 15:00 History aerosol inhaler (ProAir HFA) shortness of breath metformin 1,000 mg tablet 1,000 mg PO BID blood sugar 03/23/18 09/04/18 22:00 History insulin glargine 100 unit/mL (3 18 unit SQ BREAKFAST 05/10/19 Unknown History mL) subcutaneous pen alpha lipoic acid 600 mg capsule 600 mg PO DAILY 01/21/21 Unknown History ipratropium bromide 17 1 inh inhalation DAILY 01/21/21 Unknown History mcg/actuation HFA aerosol inhaler (Atrovent HFA) trazodone 300 mg tablet 300 mg PO QHS 01/21/21 Unknown History vitamin B12 1 mg-folic acid 0.8 mg 1 tab PO DAILY 01/21/21 Unknown History tablet dulaglutide 0.75 mg/0.5 mL 1.5 mg subcut QWEEK #2 mL 08/05/23 Unknown Rx subcutaneous pen injector (Trulicity) pregabalin 150 mg capsule 150 mg PO BID 01/03/24 Unknown History topiramate 25 mg tablet 25 mg PO QHS headache 01/03/24 Unknown History topiramate 50 mg tablet 50 mg PO QHS 01/03/24 Unknown History trospium 20 mg tablet 20 mg PO QHS 01/03/24 Unknown History ondansetron 4 mg disintegrating 4 mg PO Q8H PRN PRN Nausea #10 tabs 01/10/24 Unknown Rx tablet dicyclomine 10 mg capsule 10 mg PO TID #30 caps 03/28/24 Unknown Rx ondansetron 4 mg disintegrating 4 mg PO Q6H PRN nausea and 03/28/24 Unknown Rx tablet vomiting #20 tabs Allergy/AdvReac Type Severity Reaction Status Date / Time latex Allergy Hives Verified 03/28/24 09:16 hydromorphone (From Dilaudid) AdvReac Vomiting Verified 03/28/24 09:16 Surgical History S/P hysterectomy History of appendectomy History of cholecystectomy History of back surgery Previous back surgery Hx of appendectomy History of cholecystectomy Social History Smoking Status: Former smoker substance use type: does not use ROS ROS ED ROS Narrative Constitutional: Denies fevers, chills, headaches, lightness, dizziness Eyes: Denies change in vision double vision blurry vision Cardiovascular: Denies chest pain Respiratory: Denies shortness of breath Abdomen: Complains of abdominal pain nausea diarrhea as noted above : Denies any painful urination, hematuria compel her Neurological: Denies numbness, weakness, tingling Musculoskeletal: Denies back pain Skin: denies rashes or lesions EXAM Physical Exam Narrative Exam Narrative: General: Patient lying in bed did appear to be uncomfortable secondary to her abdominal pain Head: Atraumatic, normocephalic Eyes: PERRL bilateral, EOMI bilateral, no conjunctival injection Neck: Soft, supple, trachea Cardiovascular: Regular rate and rhythm no murmurs gallops rubs Respiratory: Clear to auscultation bilaterally Abdomen: Soft, nondistended, tenderness to palpation in the left lower quadrant, hypoactive bowel sounds Extremities: +5/5 strength noted in the bilateral lower extremities Neurological: Patient follow commands knew that she was at [facility] years 2023 Skin: Warm, dry, intact Const Vital Signs: 03/28/24 09:16 03/28/24 11:16 03/28/24 12:28 Temperature 97.8 F Temperature Source Oral Pulse Rate 99 82 80 Respiratory Rate 18 16 16 Blood Pressure 114/74 111/75 118/81 H Blood Pressure Mean 87 87 93 Pulse Ox 99 99 99 Oxygen Delivery Method Room Air Room Air Room Air MDM MDM MDM Narrative Medical decision making narrative: Patient is a 53-year-old female who presented to the emergency department the chief complaint of abdominal pain. Patient will have a workup performed here on the differential diagnose includes but not limited to diverticulitis, small bowel obstruction, large bowel obstruction, pancreatitis. Once workup is obtained reviewed she will be reevaluated. Patient be given morphine Zofran. Patient's CBC reviewed and showed no evidence leukocytosis white blood count normal at 9.1, hemoglobin stable 15.1, platelet count normal at 205. Patient's sodium normal at 141, potassium normal 3.9, creatinine normal at 0.90. Patient's AST and ALT were 27 and 38 respectively with a normal alk phosphatase of 85. Patient lipase normal at 33, urinalysis reviewed and no evidence of infection. Patient CT abdomen pelvis with IV contrast reviewed and showed no acute process of the abdomen pelvis mildly cirrhotic liver. Reevaluation the patient patient was still having significant abdominal pain therefore I added on a lactic acid which was reviewed and was normal at 0.9. On reevaluation again the patient she states that she is feeling better she would like to go home. Patient was advised to follow-up with her primary care physician outpatient setting. She will be given prescriptions for Zofran and Bentyl/Levsin. She was encouraged to return with worsening symptoms or any concerns. She is agreeable this plan all question concerns answered she was discharged home in stable condition. Lab Data Labs: Laboratory Results - last 24 hr 03/28/24 03/28/24 03/28/24 09:07 10:31 12:15 WBC 9.1 RBC 5.33 Hgb 15.1 H Hct 47.8 H MCV 89.7 MCH 28.3 MCHC 31.6 L RDW Std Deviation 44.1 H RDW Coeff of Lore 13.4 Plt Count 205 MPV 10.6 Immature Gran % (Auto) 0.400 Neut % (Auto) 57.5 Lymph % (Auto) 33.8 [place] % (Auto) 5.6 Eos % (Auto) 2.1 Baso % (Auto) 0.6 Absolute Neuts (auto) 5.2 Absolute Lymphs (auto) 3.07 Nucleated RBC % 0 Sodium 141 Potassium 3.9 Chloride 109 H Carbon Dioxide 26.0 Anion Gap 6 BUN 19 H Creatinine 0.90 Estim Creat Clear Calc 74.84 Est GFR (MDRD) Af Amer 85 Est GFR (MDRD) Non-Af 70 BUN/Creatinine Ratio 21.2 H Glucose 163 H Lactic Acid 0.9 Calcium 9.7 Total Bilirubin 0.40 AST 27 ALT 38 Alkaline Phosphatase 85 Total Protein 8.5 H Albumin 4.1 Globulin 4.4 H Albumin/Globulin Ratio 0.9 Lipase 33 Urine Color Yellow Urine Clarity Clear Urine pH 7.0 Ur Specific [place] 1.005 Urine Protein Negative Urine Glucose (UA) Normal Urine Ketones Negative Urine Occult Blood Negative Urine Nitrite Negative Urine Bilirubin Negative Urine Urobilinogen Normal Ur Leukocyte Esterase 25 H Urine RBC 0 SEEN Urine WBC 0 SEEN Ur Squamous Epith Cells 0-5 SEEN Urine Bacteria 0 SEEN Urine Mucus 0 SEEN Radiography Diagnostic Testing: Clinical Impression(s) from Imaging Studies Abdomen/Pelvis CT 03/28/24 09:42 IMPRESSION: 1. No acute process of the abdomen and pelvis. 2. Mildly cirrhotic liver Electronically Signed: Tim Limon MD at 11:09 EDT Reading Location ID and State: [facility] / [place] , Service support , Discharge Plan Triage Chief Complaint: Abd Pain ED Provider: Patrick Manrique Dx/Rx/DC Orders Clinical Impression: Abdominal pain Instructions: ED Abdominal Pain Unkn Cause Fem Prescriptions: New dicyclomine 10 mg capsule 10 mg PO TID Qty: 30 0RF ondansetron 4 mg tablet,disintegrating 4 mg PO Q6H PRN (Reason: nausea and vomiting) Qty: 20 0RF No Action atorvastatin 10 MG tablet 10 mg PO DAILY levothyroxine 25 MCG tablet 25 mcg PO DAILY metformin 1,000 MG tablet 1,000 mg PO BID albuterol sulfate [ProAir HFA] 1 PUFF inhaler 2 puff inhalation Q4H PRN PRN (Reason: shortness of breath) insulin glargine 100 UNIT/ML insulin pen 18 unit SQ BREAKFAST trazodone 300 mg tablet 300 mg PO QHS Patient Comments: TAKE 1 TABLET BY MOUTH EVERY DAY AT BEDTIME NEEDED vitamin [id number] acid 1-0.8 mg Tablet 1 tab PO DAILY Atrovent HFA 17 mcg/actuation Hfa Aerosol Inhaler 1 inh INHALATION DAILY alpha lipoic acid 600 mg capsule 600 mg PO DAILY Patient Comments: TAKE 1 CAPSULE BY MOUTH EVERY DAY topiramate 25 mg tablet 25 mg PO QHS topiramate 50 mg tablet 50 mg PO QHS trospium 20 mg tablet 20 mg PO QHS pregabalin 150 mg capsule 150 mg PO BID Patient Comments: pt states she no longer takes this med Trulicity 0.75 mg/0.5 mL pen injector 1.5 mg subcut QWEEK Qty: 2 0RF ondansetron 4 mg tablet,disintegrating 4 mg PO Q8H PRN PRN (Reason: Nausea) Qty: 10 0RF Primary Care Provider: Sophie Huitron Referrals: Sophie Huitron MD [Primary Care Provider] - Mathew Montoya DO [Med Staff - Active Staff] - Activity Restrictions/Additional Instructions: Take medications as prescribed. Follow-up with your primary care physician outpatient setting. Follow-up with gastroenterology that you referred to. Return with worsening symptoms or other concerns. Print Language: Kenyan Disposition Disposition: Home, Self Care
[2024-03-28] MEDS: Morphine 4 MG/ML Syringe IV (10:08)
[2024-03-28] MEDS: Ondansetron 4 MG/2 ML Vial IV (10:08)
[2024-03-28 10:25] LABS: ALB/GLOB Ratio 0.9 RATIO (0.9-2.4); AST(SGOT) 27 U/L (15-37); Alanine Aminotransfer ALT/SGPT 38 U/L (13-56); Albumin, Serum 4.1 g/dL (3.2-5.0); Alkaline Phosphatase 85 U/L (45-117); Anion Gap 6 (5-15); BUN 19 mg/dL (7-18); BUN/Creat Ratio 21.2 RATIO (10-20); Calcium,Total 9.7 mg/dL (8.5-10.1); Chloride 109 mmol/L (98-107); EST Glomerular Filtration Rate 70 mL/min (>60); Est Glom Filt Rate - Afr Amer 85 mL/min (>60); Estimated Creatinine Clearance 74.84 ml/min; Globulin 4.4 g/dL (2.2-4.2); Glucose 163 mg/dL (74-106); Lipase 33 U/L (13-75); Potassium 3.9 mmol/L (3.5-5.1); Protein, Total 8.5 g/dL (6.4-8.2); Sodium Level 141 mmol/L (136-145)
[2024-03-28 10:39] LABS: Bacteria 0 SEEN /hpf (None Seen); Mucous, Urine 0 SEEN /hpf (<or=2+); Red Blood Cells-Urine 0 SEEN /hpf (0-5); White Blood Cells 0 SEEN /hpf (0-5)
[2024-03-28 10:40] LABS: Color, Urine Yellow (Yellow); Glucose, Dipstick Normal (Normal); Ketone-Dipstick Negative (Negative); Leukocyte Esterase-Dipstick 25 /ul (Negative); Nitrite-Dipstick Negative (Negative); Occult Blood-Urine Negative /ul (Negative); Protein-Dipstick Negative (Negative); Specific Gravity, Urine 1.005 (1.002-1.030); Urine Bilirubin Dipstick Negative (Negative); Urine Clarity Clear (Clear); Urine Urobilinogen Normal (Normal)
[2024-03-28 10:48] LABS: Squamous Epithelial Cells - UA 0-5 SEEN /hpf (5-10)
[2024-03-28 11:16] VITALS: BP 111/75; PULSE 82; RESP 16; O2SAT 99
[2024-03-28] MEDS: Morphine 2 MG/ML Syringe 4 MG IV (12:26)
[2024-03-28 12:28] VITALS: BP 118/81; PULSE 80; RESP 16; O2SAT 99
[2024-03-28 12:47] LABS: Lactic Acid 0.9 mmol/L (0.4-1.9)
[2024-03-28 13:30] VITALS: BP 111/72; PULSE 84; RESP 17; TEMP 36.2; O2SAT 99
== END 2024-03-28 13:31 | disposition home or self-care (01) ==
PROVIDERS: Emergency Provider Emergency Medicine; PCP Family Medicine; Visit Provider Emergency Medicine
DX: R10.9 Unspecified abdominal pain (principal); F31.9 Bipolar disorder, unspecified; E11.9 Type 2 diabetes mellitus without complications; G47.33 Obstructive sleep apnea (adult) (pediatric); Z87.891 Personal history of nicotine dependence
CPT/HCPCS: 74177; 80053; 81001; 83605; 83690; 85025; 93005; 96374; 96375; 96376; 99283; Q9967; A4216; J2405

== ENCOUNTER 2024-05-31 17:33 | Emergency (ER) | payer MEDICARE, MEDICAID, SELFPAY ==
[2024-05-31 17:34] VITALS: BP 143/87; PULSE 85; RESP 18; TEMP 36.1; O2SAT 100; BMI 40.6
--- NOTE | 2024-05-31 17:48 | EDS_ITS ---
HPI History of Present Illness Chief Complaint: Upper Extremity Injury Informant: patient Narrative Narrative: 53-year-old female injured her right wrist and forearm last night, she states she and her were trying to move a callus and he accidentally dropped it on her forearm. She points that her radial wrist/distal forearm is the place where it hurts the worst but the pain radiates up into her proximal forearm more radial. No other injuries or pain. No numbness in her fingers. [id number]. [facility] Medical History History of tobacco use Encounter for screening for malignant neoplasm of lung Chronic headaches Diabetes Chronic pain Endometrial polyp Wears glasses Depression Anxiety Alcohol use Arthritis High cholesterol Injury of back Migraine headache Smoker CPAP (continuous positive airway pressure) dependence Sleep apnea History of stress test Hypertension Diabetes mellitus type 2 in obese Hypothyroidism Bipolar disorder Asthma Home Medications ?Medication ?Instructions ?Recorded ?Last Taken ?Type atorvastatin 10 mg tablet 10 mg PO DAILY cholesterol lowering 02/27/16 09/04/18 11:00 History levothyroxine 25 mcg tablet 25 mcg PO DAILY thyroid 02/27/16 01/28/21 08:00 History albuterol sulfate 90 mcg/actuation 2 puff inhalation Q4H PRN PRN 03/23/18 08/29/18 15:00 History aerosol inhaler (ProAir HFA) shortness of breath metformin 1,000 mg tablet 1,000 mg PO BID blood sugar 03/23/18 09/04/18 22:00 History insulin glargine 100 unit/mL (3 18 unit SQ BREAKFAST 05/10/19 Unknown History mL) subcutaneous pen alpha lipoic acid 600 mg capsule 600 mg PO DAILY 01/21/21 Unknown History ipratropium bromide 17 1 inh inhalation DAILY 01/21/21 Unknown History mcg/actuation HFA aerosol inhaler (Atrovent HFA) trazodone 300 mg tablet 300 mg PO QHS 01/21/21 Unknown History vitamin B12 1 mg-folic acid 0.8 mg 1 tab PO DAILY 01/21/21 Unknown History tablet dulaglutide 0.75 mg/0.5 mL 1.5 mg subcut QWEEK #2 mL 08/05/23 Unknown Rx subcutaneous pen injector (Trulicity) pregabalin 150 mg capsule 150 mg PO BID 01/03/24 Unknown History topiramate 25 mg tablet 25 mg PO QHS headache 01/03/24 Unknown History topiramate 50 mg tablet 50 mg PO QHS 01/03/24 Unknown History trospium 20 mg tablet 20 mg PO QHS 01/03/24 Unknown History ondansetron 4 mg disintegrating 4 mg PO Q8H PRN PRN Nausea #10 tabs 01/10/24 Unknown Rx tablet dicyclomine 10 mg capsule 10 mg PO TID #30 caps 03/28/24 Unknown Rx ondansetron 4 mg disintegrating 4 mg PO Q6H PRN nausea and 03/28/24 Unknown Rx tablet vomiting #20 tabs Allergy/AdvReac Type Severity Reaction Status Date / Time latex Allergy Hives Verified 05/31/24 17:34 hydromorphone (From Dilaudid) AdvReac Vomiting Verified 05/31/24 17:34 Surgical History S/P hysterectomy History of appendectomy History of cholecystectomy History of back surgery Previous back surgery Hx of appendectomy History of cholecystectomy Social History Smoking Status: Former smoker substance use type: does not use ROS ROS ED Constitutional Constitutional ED: Denies chills or fever(s) Musculoskeletal Musculoskeletal: Reports extremity pain; Denies neck pain Integumentary Reports Abrasions; Denies rash or wounds Neurologic Neurologic: Denies paresthesias or weakness EXAM Physical Exam Const Vital Signs: 05/31/24 17:34 Temperature 97 F L Temperature Source Temporal Pulse Rate 85 Respiratory Rate 18 Blood Pressure 143/87 H Blood Pressure Mean 105 Pulse Ox 100 Oxygen Delivery Method Room Air Positive well nourished and well developed General Appearance ED: well developed and NAD Eyes PERRL and EOMs intact bilaterally Neck full ROM and supple Back/Spine normal ROM and normal to inspection Extremity Extremity Narrative: Limited range of motion right wrist due to pain. She unable to pronate and or supinate. There is no deformity. She has an abrasion, erythema, tenderness at the distal radius and the snuffbox. She has trouble moving her right thumb due to pain but there is no deformity. She also has pain in her wrist with moving all of the other fingers. There is no hand bony tenderness. She is also tender throughout the entire forearm/distribution of the radius all the way to the proximal third but nontender at the radial head or other bony prominences of the elbow. Neuro oriented x3, no focal motor deficits and no sensory deficits noted Sensorium / Orientation: alert Psych mental status grossly normal and thought process normal Skin no wounds Rashes: no rashes MDM MDM MDM Narrative Medical decision making narrative: 2 view x-ray series of the forearm were obtained, negative for acute fracture or dislocation on my interpretation. I am at a low suspicion for scaphoid fracture based on the mechanism, which was direct blunt trauma to an area more proximal. Give the patient a tramadol here as well as a wrist plan to use as needed for comfort, advised to follow-up with her doctor or return here if worse. Discharge Plan Triage Chief Complaint: Upper Extremity Injury ED Provider: Harvey Lucero Dx/Rx/DC Orders Clinical Impression: Contusion of right wrist, initial encounter Instructions: ED Contusion, Upper Extremity Prescriptions: No Action atorvastatin 10 MG tablet 10 mg PO DAILY levothyroxine 25 MCG tablet 25 mcg PO DAILY metformin 1,000 MG tablet 1,000 mg PO BID albuterol sulfate [ProAir HFA] 1 PUFF inhaler 2 puff inhalation Q4H PRN PRN (Reason: shortness of breath) insulin glargine 100 UNIT/ML insulin pen 18 unit SQ BREAKFAST trazodone 300 mg tablet 300 mg PO QHS Patient Comments: TAKE 1 TABLET BY MOUTH EVERY DAY AT BEDTIME NEEDED vitamin [id number] acid 1-0.8 mg Tablet 1 tab PO DAILY Atrovent HFA 17 mcg/actuation Hfa Aerosol Inhaler 1 inh INHALATION DAILY alpha lipoic acid 600 mg capsule 600 mg PO DAILY Patient Comments: TAKE 1 CAPSULE BY MOUTH EVERY DAY topiramate 25 mg tablet 25 mg PO QHS topiramate 50 mg tablet 50 mg PO QHS trospium 20 mg tablet 20 mg PO QHS pregabalin 150 mg capsule 150 mg PO BID Patient Comments: pt states she no longer takes this med dicyclomine 10 mg capsule 10 mg PO TID Qty: 30 0RF ondansetron 4 mg tablet,disintegrating 4 mg PO Q6H PRN (Reason: nausea and vomiting) Qty: 20 0RF Trulicity 0.75 mg/0.5 mL pen injector 1.5 mg subcut QWEEK Qty: 2 0RF ondansetron 4 mg tablet,disintegrating 4 mg PO Q8H PRN PRN (Reason: Nausea) Qty: 10 0RF Primary Care Provider: Sophie Huitron Referrals: Sophie Huitron MD [Primary Care Provider] - 1 Week if not improving Print Language: Thai Disposition Disposition: Home, Self Care
--- NOTE | 2024-05-31 17:55 | RAD_ITS ---
EXAM: XR RIGHT FOREARM, 2 VIEWS CLINICAL INDICATION: blunt trauma TECHNIQUE: Frontal and lateral views of the right forearm. COMPARISON: No relevant prior studies available. FINDINGS: BONES/JOINTS: Unremarkable. No acute fracture. No dislocation. SOFT TISSUES: Mild dorsal forearm soft tissue swelling. RAD/Forearm 2 Views IMPRESSION: Mild soft tissue swelling. No fracture. Electronically Signed: Yanci Szymanski MD at 19:22 EST ,
[2024-05-31] MEDS: traMADol 50 MG Tablet PO (18:20)
== END 2024-05-31 18:26 | disposition home or self-care (01) ==
PROVIDERS: Emergency Provider Emergency Medicine; PCP Family Medicine; Visit Provider Emergency Medicine
DX: S60.211A Contusion of right wrist, initial encounter (principal); F31.9 Bipolar disorder, unspecified; E11.69 Type 2 diabetes mellitus with other specified complication; Z79.4 Long term (current) use of insulin; W22.8XXA Striking against or struck by other objects, initial encounter; I10 Essential (primary) hypertension; F41.9 Anxiety disorder, unspecified; E66.9 Obesity, unspecified; E03.9 Hypothyroidism, unspecified; E78.00 Pure hypercholesterolemia, unspecified; G47.30 Sleep apnea, unspecified; M19.90 Unspecified osteoarthritis, unspecified site; J45.909 Unspecified asthma, uncomplicated; G89.29 Other chronic pain; G43.909 Migraine, unspecified, not intractable, without status migrainosus; Z90.49 Acquired absence of other specified parts of digestive tract; Z79.84 Long term (current) use of oral hypoglycemic drugs; Z79.890 Hormone replacement therapy; Z79.899 Other long term (current) drug therapy; Z87.891 Personal history of nicotine dependence
CPT/HCPCS: 73090; 99283

== ENCOUNTER 2024-06-15 08:58 | Emergency (ER) | payer MEDICARE, MEDICAID, SELFPAY ==
[2024-06-15 08:58] VITALS: PULSE 76; RESP 18; TEMP 37.1; O2SAT 98; BMI 41.0
[2024-06-15 09:01] VITALS: BP 111/85
--- NOTE | 2024-06-15 09:44 | VDUE_ITS ---
Reason For Study: Swelling RUE Right Proximal Left Proximal Right jugular vein is spontaneous, widely Left subclavian vein is spontaneous, widely patent, phasic, with no intraluminal patent, phasic, with no intraluminal echogenicity noted. echogenicity noted. Right subclavian vein is spontaneous, widely patent, phasic, with no intraluminal echogenicity noted. Right Lower Arm Right radial vein is compressible. Right ulnar vein is compressible. Right Arm Right axillary vein is spontaneous, patent, phasic, competent, compressible and demonstrates augmentation. Right brachial vein is compressible. Right cephalic vein is compressible. Right basilic vein is compressible. VL/Venous Duplex US, Unilateral Interpretation Summary Deep veins of the right upper extremity are patent and compressible segmentally . There is no evidence of deep vein thrombosis. The superficial veins of the right upper extr emity, the basilic and cephalic veins, are patent and compressible. There is no evidence of right upper extremity superficial thrombophlebitis involving the veins imaged. The left subclavian ve in is patent. Ordering Physician: Senait Laurent Referring Physician: Sophie Huitron Performed By: Lolis Adams, BRAD, RVT ???
--- NOTE | 2024-06-15 09:45 | EX.ED.UPPERE ---
HPI History of Present Illness Chief Complaint: Upper Extremity Injury Detail of Chief Complaint: Right wrist/arm pain and swelling Informant: patient Narrative Narrative: Patient presents with right wrist and arm swelling that started this morning when she woke up. She states that she went to bed feeling fine. She did regular housework yesterday. She describes a contusion to her wrist when her dropped a couch on it 2 weeks ago for which she was seen in the ER and had x-rays that were negative. She had been doing well otherwise. No recent travel or surgery. No history of PE or DVT. No history of gout. [facility] Medical History History of tobacco use Encounter for screening for malignant neoplasm of lung Chronic headaches Diabetes Chronic pain Endometrial polyp Wears glasses Depression Anxiety Alcohol use Arthritis High cholesterol Injury of back Migraine headache Smoker CPAP (continuous positive airway pressure) dependence Sleep apnea History of stress test Hypertension Diabetes mellitus type 2 in obese Hypothyroidism Bipolar disorder Asthma Home Medications ?Medication ?Instructions ?Recorded ?Last Taken ?Type atorvastatin 10 mg tablet 10 mg PO DAILY cholesterol lowering 02/27/16 09/04/18 11:00 History levothyroxine 25 mcg tablet 25 mcg PO DAILY thyroid 02/27/16 01/28/21 08:00 History albuterol sulfate 90 mcg/actuation 2 puff inhalation Q4H PRN PRN 03/23/18 08/29/18 15:00 History aerosol inhaler (ProAir HFA) shortness of breath metformin 1,000 mg tablet 1,000 mg PO BID blood sugar 03/23/18 09/04/18 22:00 History insulin glargine 100 unit/mL (3 18 unit SQ BREAKFAST 05/10/19 Unknown History mL) subcutaneous pen alpha lipoic acid 600 mg capsule 600 mg PO DAILY 01/21/21 Unknown History ipratropium bromide 17 1 inh inhalation DAILY 01/21/21 Unknown History mcg/actuation HFA aerosol inhaler (Atrovent HFA) trazodone 300 mg tablet 300 mg PO QHS 01/21/21 Unknown History vitamin B12 1 mg-folic acid 0.8 mg 1 tab PO DAILY 01/21/21 Unknown History tablet dulaglutide 0.75 mg/0.5 mL 1.5 mg subcut QWEEK #2 mL 08/05/23 Unknown Rx subcutaneous pen injector (Trulicity) pregabalin 150 mg capsule 150 mg PO BID 01/03/24 Unknown History topiramate 25 mg tablet 25 mg PO QHS headache 01/03/24 Unknown History topiramate 50 mg tablet 50 mg PO QHS 01/03/24 Unknown History trospium 20 mg tablet 20 mg PO QHS 01/03/24 Unknown History ondansetron 4 mg disintegrating 4 mg PO Q8H PRN PRN Nausea #10 tabs 01/10/24 Unknown Rx tablet dicyclomine 10 mg capsule 10 mg PO TID #30 caps 03/28/24 Unknown Rx ondansetron 4 mg disintegrating 4 mg PO Q6H PRN nausea and 03/28/24 Unknown Rx tablet vomiting #20 tabs hydrocodone-acetaminophen 5-325mg 1 tab PO Q4H PRN PRN Pain 2 days 06/15/24 Unknown Rx 5mg-325mg #10 TABLETS prednisone 20 mg tablet 20 mg PO BID #10 tabs 06/15/24 Unknown Rx Allergy/AdvReac Type Severity Reaction Status Date / Time latex Allergy Hives Verified 06/15/24 08:58 hydromorphone (From Dilaudid) AdvReac Vomiting Verified 06/15/24 08:58 Surgical History S/P hysterectomy History of appendectomy History of cholecystectomy History of back surgery Previous back surgery Hx of appendectomy History of cholecystectomy Social History Smoking Status: Former smoker substance use type: does not use ROS ROS ED Review of Systems ROS Unobtainable: other Constitutional Constitutional ED: Reports lethargy; Denies chills, fever(s), sweats or weight loss Eyes Eyes: Denies blurry vision, change in vision or diplopia ENT ENT ED: Denies rhinorrhea or sore throat Cardiovascular Cardiovascular: Denies chest pain, orthopnea or racing heartbeat Respiratory/Chest Respiratory/Chest: Denies cough, dyspnea, dyspnea on exertion, orthopnea or sputum Gastrointestinal Gastrointestinal: Denies abdominal pain, diarrhea, nausea or vomiting Genitourinary Genitourinary ED: Denies dysuria, hematuria or urinary frequency Musculoskeletal Musculoskeletal: Reports other Details: Right wrist pain and swelling ; Denies arthralgias, back pain, myalgias or neck pain Integumentary Denies abscess, Abrasions or rash Neurologic Neurologic: Denies headache(s) or weakness Psychiatric Psychiatric: Denies anxiety, depression or suicidal thoughts Endocrine Endocrinology: Denies polydipsia, polyphagia or polyuria Hematologic/Lymphatic Hematologic/Lymphatic: Denies easy bleeding, easy bruising or lymphadenopathy Allergic/Immunologic Allergic/Immunologic ED: Denies mouth swelling, tongue swelling or urticaria EXAM Physical Exam Const Vital Signs: 06/15/24 08:58 06/15/24 09:01 Temperature 98.7 F Temperature Source Oral Pulse Rate 76 Respiratory Rate 18 Blood Pressure 111/85 H Blood Pressure Mean 93 Pulse Ox 98 Oxygen Delivery Method Room Air Positive well nourished and well developed General Appearance ED: well developed and NAD HEENT Reports TM's clear and moist mucous membranes normocephalic and atraumatic; Negative for trauma or tenderness Tympanic Membrane ED: Yes TM's clear Eyes PERRL and EOMs intact bilaterally General Eye ED: Negative for pale conjunctiva or scleral icterus Neck no lymphadenopathy, supple and no JVD General: Negative for tenderness Chest Wall inspection of chest normal and palpation of chest normal Chest: Negative for tenderness Resp normal respiratory effort and clear to auscultation bilaterally Effort and Inspection: Negative for respiratory distress or pain with movement Auscultation: Negative for rhonchi, wheezes or diminished lung sounds Cardio regular rate, regular rhythm, S1 normal heart sound, S2 normal heart sound and no murmurs Peripheral Pulses: pulses 2+ throughout GI normal to inspection, nondistended, normoactive bowel sounds, soft to palpation, non-tender, non-distended and no masses Back/Spine no CVA tenderness and no thoracic nor lumbar tenderness Extremity Extremity Narrative: Mild diffuse swelling about the right wrist. There is no erythema or warmth. She has pain with range of motion at the wrist. Neurovascular intact distally. General Extremety ED: Negative for edema General Extremity: Negative for edema Neuro oriented x3, CN's II-XII intact bilaterally, no sensory deficits noted and gait normal Sensorium / Orientation: awake, alert, oriented to person, oriented to place and oriented to time Motor Exam: strength 5/5 throughout and strength abnormal Psych mental status grossly normal Skin no rashes or lesions noted and no wounds MDM MDM MDM Narrative Medical decision making narrative: Patient presents with pain in her right wrist which she woke up with today and no recent injury. Patient had an injury 2 weeks ago where her dropped a couch on it. She was seen in the ER at that time and had negative x-rays of her wrist. She tells me she has a wrist splint at home. No history of gout. On exam there is no evidence of trauma does have some mild edema over the wrist and tenderness with range of motion. There is no erythema or warmth or concern for cellulitic changes. I did obtain a venous Doppler of the right upper extremity and there was no evidence of DVT. At this point I do not think she needs further imaging. I will start her on prednisone and give her [place] for pain. Will refer to orthopedics for follow-up. Advised to return if fever, increased swelling, increased pain, or condition worsen anyway. Etiology of her wrist pain unclear. Sometimes she slept wrong on it or possibly may have developed a gouty type arthropathy. Discharge Plan Triage Chief Complaint: Upper Extremity Injury ED Provider: Senait Laurent Dx/Rx/DC Orders Clinical Impression: Acute pain of right wrist Instructions: ED Pain, Acute, Uncertain Cause Prescriptions: New hydrocodone-acetaminophen 5-325 mg tablet 1 tab PO Q4H PRN PRN (Reason: Pain) 2 Days Qty: 10 0RF prednisone 20 mg tablet 20 mg PO BID Qty: 10 0RF No Action atorvastatin 10 MG tablet 10 mg PO DAILY levothyroxine 25 MCG tablet 25 mcg PO DAILY metformin 1,000 MG tablet 1,000 mg PO BID albuterol sulfate [ProAir HFA] 1 PUFF inhaler 2 puff inhalation Q4H PRN PRN (Reason: shortness of breath) insulin glargine 100 UNIT/ML insulin pen 18 unit SQ BREAKFAST trazodone 300 mg tablet 300 mg PO QHS Patient Comments: TAKE 1 TABLET BY MOUTH EVERY DAY AT BEDTIME NEEDED vitamin M33-[id number] acid 1-0.8 mg Tablet 1 tab PO DAILY Atrovent HFA 17 mcg/actuation Hfa Aerosol Inhaler 1 inh INHALATION DAILY alpha lipoic acid 600 mg capsule 600 mg PO DAILY Patient Comments: TAKE 1 CAPSULE BY MOUTH EVERY DAY topiramate 25 mg tablet 25 mg PO QHS topiramate 50 mg tablet 50 mg PO QHS trospium 20 mg tablet 20 mg PO QHS pregabalin 150 mg capsule 150 mg PO BID Patient Comments: pt states she no longer takes this med dicyclomine 10 mg capsule 10 mg PO TID Qty: 30 0RF ondansetron 4 mg tablet,disintegrating 4 mg PO Q6H PRN (Reason: nausea and vomiting) Qty: 20 0RF Trulicity 0.75 mg/0.5 mL pen injector 1.5 mg subcut QWEEK Qty: 2 0RF ondansetron 4 mg tablet,disintegrating 4 mg PO Q8H PRN PRN (Reason: Nausea) Qty: 10 0RF Primary Care Provider: Sophie Huitron Referrals: Sophie Huitron MD [Primary Care Provider] - Efe Pryor DO [Med Staff - Active Staff] - 5-7 Days Print Language: Maltese Disposition Disposition: Home, Self Care
[2024-06-15] MEDS: HYDROcodone Bitartrate/Apap 5/325 Tablet PO (09:50)
[2024-06-15 12:33] VITALS: BP 111/85; PULSE 76; RESP 18; TEMP 37.1; O2SAT 98
== END 2024-06-15 12:37 | disposition home or self-care (01) ==
PROVIDERS: Emergency Provider Emergency Medicine; PCP Family Medicine; Visit Provider Emergency Medicine
DX: M25.531 Pain in right wrist (principal); F31.9 Bipolar disorder, unspecified; E11.69 Type 2 diabetes mellitus with other specified complication; R60.0 Localized edema; I10 Essential (primary) hypertension; E78.00 Pure hypercholesterolemia, unspecified; E66.9 Obesity, unspecified; F41.9 Anxiety disorder, unspecified; G89.29 Other chronic pain; G47.30 Sleep apnea, unspecified; E03.9 Hypothyroidism, unspecified; J45.909 Unspecified asthma, uncomplicated; G43.909 Migraine, unspecified, not intractable, without status migrainosus; Z87.891 Personal history of nicotine dependence; Z79.84 Long term (current) use of oral hypoglycemic drugs; Z79.890 Hormone replacement therapy; Z79.899 Other long term (current) drug therapy; Z79.51 Long term (current) use of inhaled steroids; Z79.85 Long-term (current) use of injectable non-insulin antidiabetic drugs
CPT/HCPCS: 93971; 99282

== ENCOUNTER 2024-07-22 14:06 | Emergency (ER) | payer MEDICAID, MEDICARE, SELFPAY ==
[2024-07-22 14:07] VITALS: BP 112/78; PULSE 105; RESP 20; TEMP 35.8; O2SAT 97; BMI 42.0
--- NOTE | 2024-07-22 15:18 | EX.ED.DYSGE1 ---
HPI History of Present Illness Chief Complaint: Headache Narrative Narrative: Patient is a 54-year-old female past medical history of anxiety, depression, diabetes, migraine headache, JAELYN, bipolar disorder, hypothyroidism who presents to the emergency department with a chief complaint of migraine headache. States that last night before she went to bed she had a migraine headache and noted that when she woke up the headache progressively worsened throughout the day. States that she tried to take her migraine headache medications that she had at home and were not helping her therefore she came here further evaluation management. Patient denies any sick contacts. Patient did state that she did vomited once secondary to the pain. [facility] Medical History History of tobacco use Encounter for screening for malignant neoplasm of lung Chronic headaches Diabetes Chronic pain Endometrial polyp Wears glasses Depression Anxiety Alcohol use Arthritis High cholesterol Injury of back Migraine headache Smoker CPAP (continuous positive airway pressure) dependence Sleep apnea History of stress test Hypertension Diabetes mellitus type 2 in obese Hypothyroidism Bipolar disorder Asthma Home Medications ?Medication ?Instructions ?Recorded ?Last Taken ?Type atorvastatin 10 mg tablet 10 mg PO DAILY cholesterol lowering 02/27/16 09/04/18 11:00 History levothyroxine 25 mcg tablet 25 mcg PO DAILY thyroid 02/27/16 01/28/21 08:00 History albuterol sulfate 90 mcg/actuation 2 puff inhalation Q4H PRN PRN 03/23/18 08/29/18 15:00 History aerosol inhaler (ProAir HFA) shortness of breath metformin 1,000 mg tablet 1,000 mg PO BID blood sugar 03/23/18 09/04/18 22:00 History insulin glargine 100 unit/mL (3 18 unit SQ BREAKFAST 05/10/19 Unknown History mL) subcutaneous pen alpha lipoic acid 600 mg capsule 600 mg PO DAILY 01/21/21 Unknown History ipratropium bromide 17 1 inh inhalation DAILY 01/21/21 Unknown History mcg/actuation HFA aerosol inhaler (Atrovent HFA) trazodone 300 mg tablet 300 mg PO QHS 01/21/21 Unknown History vitamin B12 1 mg-folic acid 0.8 mg 1 tab PO DAILY 01/21/21 Unknown History tablet dulaglutide 0.75 mg/0.5 mL 1.5 mg subcut QWEEK #2 mL 08/05/23 Unknown Rx subcutaneous pen injector (Trulicity) pregabalin 150 mg capsule 150 mg PO BID 01/03/24 Unknown History topiramate 25 mg tablet 25 mg PO QHS headache 01/03/24 Unknown History topiramate 50 mg tablet 50 mg PO QHS 01/03/24 Unknown History trospium 20 mg tablet 20 mg PO QHS 01/03/24 Unknown History ondansetron 4 mg disintegrating 4 mg PO Q8H PRN PRN Nausea #10 tabs 01/10/24 Unknown Rx tablet dicyclomine 10 mg capsule 10 mg PO TID #30 caps 03/28/24 Unknown Rx ondansetron 4 mg disintegrating 4 mg PO Q6H PRN nausea and 03/28/24 Unknown Rx tablet vomiting #20 tabs hydrocodone-acetaminophen 5-325mg 1 tab PO Q4H PRN PRN Pain 2 days 06/15/24 Unknown Rx 5mg-325mg #10 TABLETS prednisone 20 mg tablet 20 mg PO BID #10 tabs 06/15/24 Unknown Rx ondansetron 4 mg disintegrating 4 mg PO Q6H PRN nausea and 07/22/24 Unknown Rx tablet vomiting #20 tabs Allergy/AdvReac Type Severity Reaction Status Date / Time latex Allergy Hives Verified 06/21/24 10:24 hydromorphone (From Dilaudid) AdvReac Vomiting Verified 06/21/24 10:24 Surgical History S/P hysterectomy History of appendectomy History of cholecystectomy History of back surgery Previous back surgery Hx of appendectomy History of cholecystectomy Social History Smoking Status: Light Smoker (<10/day) substance use type: does not use ROS ROS ED ROS Narrative Constitutional:complains of headache as noted above Denies any fevers, chills, lightness, dizziness Eyes: Denies change in vision double vision Cardiovascular: Denies chest pain Respiratory: Denies coughing wheezing shortness of breath Abdomen: Admits to nausea vomiting as noted above but denies any abdominal pain or diarrhea : Denies any urinary symptoms Neurological: Denies any numbness, weakness, tingling Musculoskeletal: Denies back pain Skin: Denies any rashes or lesions EXAM Physical Exam Narrative Exam Narrative: General: Patient is lying in bed did appear to be uncomfortable secondary to her headache Head: Atraumatic, normocephalic Eyes: PERRL bilaterally, EOMI bilaterally, no conjunctival injection noted Neck: Soft, supple, trachea midline Cardiovascular: Patient tachycardic with a regular rhythm Respiratory: Clear to auscultation bilaterally Abdomen: No tenderness palpation, soft, nondistended Extremities: +5/5 strength noted in the bilateral upper and lower extremities, radial pulses +2/4 in the bilateral extremities, no pedal edema no exam Neurological: Patient following commands knew that she was at [facility] the year is 2024. Patient completed finger-nose and [id number] test bilaterally for any difficulty. NIH is 0 GCS 15 Skin: Warm, dry, intact no rashes or lesions noted Const Vital Signs: 07/22/24 14:07 07/22/24 16:06 Temperature 96.5 F L Temperature Source Temporal Pulse Rate 105 H 87 Respiratory Rate 20 H 16 Blood Pressure 112/78 Blood Pressure Mean 89 Pulse Ox 97 100 Oxygen Delivery Method Room Air MDM MDM MDM Narrative Medical decision making narrative: Patient is a 54-year-old female who presented to the emergency department chief complaint of migraine headache. On the differential diagnose includes but not limited to migraine headache, cluster headache, tension headache. Patient states that she this feels like her migraine headaches that she normally has however states that it slowly worsened throughout the day prompting her to come here. Patient be given IV fluids, Benadryl, Reglan and Tylenol. She will be reevaluated On reevaluation the patient and she is feeling better however states that her headache is still there for therefore we will add on Toradol. Reevaluation of the patient at 1657 she is feeling much improved and would like to go home at this point time. She is advised to hydrate and continue take her migraine medications as prescribed as well as use Tylenol. She will given a prescription for Zofran. She is vies follow-up with her physician outpatient setting and return with worsening symptoms or any concerns. She is agreeable this plan as well as significant other at bedside all question concerns answered she was discharged home in stable condition. Discharge Plan Triage Chief Complaint: Headache ED Provider: Patrick Manrique Dx/Rx/DC Orders Clinical Impression: Headache, migraine Prescriptions: New ondansetron 4 mg tablet,disintegrating 4 mg PO Q6H PRN (Reason: nausea and vomiting) Qty: 20 0RF No Action atorvastatin 10 MG tablet 10 mg PO DAILY levothyroxine 25 MCG tablet 25 mcg PO DAILY metformin 1,000 MG tablet 1,000 mg PO BID albuterol sulfate [ProAir HFA] 1 PUFF inhaler 2 puff inhalation Q4H PRN PRN (Reason: shortness of breath) insulin glargine 100 UNIT/ML insulin pen 18 unit SQ BREAKFAST trazodone 300 mg tablet 300 mg PO QHS Patient Comments: TAKE 1 TABLET BY MOUTH EVERY DAY AT BEDTIME NEEDED vitamin E86-ylexn acid 1-0.8 mg Tablet 1 tab PO DAILY Atrovent HFA 17 mcg/actuation Hfa Aerosol Inhaler 1 inh INHALATION DAILY alpha lipoic acid 600 mg capsule 600 mg PO DAILY Patient Comments: TAKE 1 CAPSULE BY MOUTH EVERY DAY topiramate 25 mg tablet 25 mg PO QHS topiramate 50 mg tablet 50 mg PO QHS trospium 20 mg tablet 20 mg PO QHS pregabalin 150 mg capsule 150 mg PO BID Patient Comments: pt states she no longer takes this med dicyclomine 10 mg capsule 10 mg PO TID Qty: 30 0RF ondansetron 4 mg tablet,disintegrating 4 mg PO Q6H PRN (Reason: nausea and vomiting) Qty: 20 0RF hydrocodone-acetaminophen 5-325 mg tablet 1 tab PO Q4H PRN PRN (Reason: Pain) 2 Days Qty: 10 0RF prednisone 20 mg tablet 20 mg PO BID Qty: 10 0RF Trulicity 0.75 mg/0.5 mL pen injector 1.5 mg subcut QWEEK Qty: 2 0RF ondansetron 4 mg tablet,disintegrating 4 mg PO Q8H PRN PRN (Reason: Nausea) Qty: 10 0RF Primary Care Provider: Sophie Huitron Referrals: Sophie Huitron MD [Primary Care Provider] - Activity Restrictions/Additional Instructions: Follow-up with your doctor in the outpatient setting. Use the Zofran as prescribed. Ensure hydrating orally with water. Return with worsening symptoms or any concerns Print Language: Tuvaluan Disposition Disposition: Home, Self Care
[2024-07-22] MEDS: 0.9% Normal Saline (1000mL) 1,000 ML 999 ML IV (15:26)
[2024-07-22] MEDS: Acetaminophen 500 MG Tablet 1000 MG PO (15:27)
[2024-07-22] MEDS: Metoclopramide 10 MG/2 ML Vial IV (15:27)
[2024-07-22] MEDS: DiphenhydrAMINE 50 MG/ML Syringe 25 MG IV (15:27)
[2024-07-22 16:06] VITALS: PULSE 87; RESP 16; O2SAT 100
[2024-07-22] MEDS: Ketorolac 30 MG/ML Syringe IV (16:18)
[2024-07-22 17:23] VITALS: BP 138/76; PULSE 82; RESP 15; TEMP 36.4; O2SAT 98
== END 2024-07-22 17:24 | disposition home or self-care (01) ==
PROVIDERS: Emergency Provider Emergency Medicine; PCP Family Medicine; Visit Provider Emergency Medicine
DX: G43.909 Migraine, unspecified, not intractable, without status migrainosus (principal); F31.9 Bipolar disorder, unspecified; E11.69 Type 2 diabetes mellitus with other specified complication; Z79.4 Long term (current) use of insulin; F41.9 Anxiety disorder, unspecified; E03.9 Hypothyroidism, unspecified; E78.00 Pure hypercholesterolemia, unspecified; E66.9 Obesity, unspecified; G47.33 Obstructive sleep apnea (adult) (pediatric); J45.909 Unspecified asthma, uncomplicated; F17.200 Nicotine dependence, unspecified, uncomplicated; Z79.899 Other long term (current) drug therapy; Z79.890 Hormone replacement therapy; Z79.51 Long term (current) use of inhaled steroids
CPT/HCPCS: 96361; 96374; 96375; 99283; A4216

== ENCOUNTER 2024-09-02 13:45 | Emergency (ER) | payer MEDICARE, MEDICAID, SELFPAY ==
[2024-09-02 13:46] VITALS: BP 145/84; PULSE 117; RESP 16; TEMP 36.2; O2SAT 98; BMI 39.0
--- NOTE | 2024-09-02 17:07 | CT_ITS ---
EXAM: CT images of the brain were acquired without intravenous contrast. Multiplanar reformats were acquired. COMPARISON: None available. FINDINGS: * ACUTE: No acute infarct or hemorrhage. No mass effect or herniation. * BRAIN PARENCHYMA: Signal intensities are within normal limits for age. * VENTRICLES/EXTRA-AXIAL SPACES: No hydrocephalus or extra-axial fluid collections. * EXTRACRANIAL STRUCTURES: Visualized osseous structures are normal. Soft tissues are normal. CT/Brain/Head without Contrast IMPRESSION: No acute intracranial findings. CLINICAL HISTORY: HEADACHE Reading Location: [facility]
--- NOTE | 2024-09-02 17:07 | CT_ITS ---
PROCEDURE: SPINE CERVICAL WITHOUT CONTRAS 09/02/2024 REASON FOR EXAM: NECK PAIN TECHNIQUE: CT cervical spine was performed without IV contrast. Multiplanar reformats were generated. One or more dose reduction techniques were used (e.g., Automated exposure control, adjustment of the mA and/or kV according to patient size, use of iterative reconstruction technique COMPARISON: None. RADIATION DOSE SUMMARY: CTDlvol: 23.75 mGy DLP: 466.94 mGycm FINDINGS: Cervical vertebral body heights are preserved. No cervical spinal fracture or acute malalignment identified. Straightening of normal cervical lordosis may be degenerative, positional, or related to pain/muscular spasm. Trace likely degenerative anterolisthesis at C3-C4. Generalized small caliber of the spinal canal on a congenital basis. Additional level by level findings as below, suboptimally delineated by CT: C2-3: Disc height loss with tiny posterior disc/osteophyte complex. No significant spinal canal or foraminal stenosis evident by CT. C3-4: Disc height loss with mild bulging. No significant spinal canal or foraminal stenosis evident by CT. C4-5: Disc height loss with diffuse disc bulging and superimposed posterior central disc protrusion with inferior migration and disc/osteophyte complex, largest in the right foraminal region. At least moderate spinal canal stenosis. Mild uncovertebral arthropathy. Bony foraminal stenoses are at least mild on the left and mild/moderate on the right. C5-6: Severe loss of disc height with diffuse disc bulging and disc/osteophyte complex. Mild uncovertebral arthropathy. At least moderate focal spinal canal stenosis. Foraminal stenoses are at least moderate on the right and mild/moderate on the left. C6-7: [id number]-[id number] loss of disc height with diffuse disc bulging and small disc/osteophyte complex. Mild uncovertebral arthropathy. At least mild/moderate focal spinal canal stenosis. No significant bony foraminal stenosis. C7-T1: Mild/moderate disc height loss. No significant spinal canal or foraminal stenosis evident by CT. CT/Spine Cervical without Contras IMPRESSION: 1. No acute cervical spinal fracture or malalignment identified. 2. Multilevel spondylosis as detailed, suboptimally delineated by CT. Spinal c anal stenoses up to at least moderate at C4-C6. Bony foraminal stenoses up to at least moderate. Consider outpatient MRI as in dicated. 3. Additional description as above. Reading Location: [facility]
--- NOTE | 2024-09-02 17:09 | EX.ED.DYSGE1 ---
HPI History of Present Illness Chief Complaint: Other, Pain/Inj Informant: patient Narrative Narrative: 6 weeks nontraumatic neck pain pain down her left shoulder. States started with headaches. She saw her PCP who referred her to neurology for which she saw Dr. Moss. She states MRIs ordered for September. She is on Lyrica for history of diabetic neuropathy. She takes it twice a day. States today pain was worse for which she took half a Vicodin for which she had leftover and Phenergan. She tried calling her neurologist for medications however could not get through she left a message. She states they called when she went to the restroom however called back and got voicemail. She has not discussed with her PCP. However reports her head is throbbing today. Prior similar symptoms: Yes PFSH [facility] Medical History History of tobacco use Encounter for screening for malignant neoplasm of lung Chronic headaches Diabetes Chronic pain Endometrial polyp Wears glasses Depression Anxiety Alcohol use Arthritis High cholesterol Injury of back Migraine headache Smoker CPAP (continuous positive airway pressure) dependence Sleep apnea History of stress test Hypertension Diabetes mellitus type 2 in obese Hypothyroidism Bipolar disorder Asthma Home Medications ?Medication ?Instructions ?Recorded ?Last Taken ?Type atorvastatin 10 mg tablet 10 mg PO DAILY cholesterol lowering 02/27/16 09/04/18 11:00 History levothyroxine 25 mcg tablet 25 mcg PO DAILY thyroid 02/27/16 01/28/21 08:00 History albuterol sulfate 90 mcg/actuation 2 puff inhalation Q4H PRN PRN 03/23/18 08/29/18 15:00 History aerosol inhaler (ProAir HFA) shortness of breath metformin 1,000 mg tablet 1,000 mg PO BID blood sugar 03/23/18 09/04/18 22:00 History insulin glargine 100 unit/mL (3 18 unit SQ BREAKFAST 05/10/19 Unknown History mL) subcutaneous pen alpha lipoic acid 600 mg capsule 600 mg PO DAILY 01/21/21 Unknown History ipratropium bromide 17 1 inh inhalation DAILY 01/21/21 Unknown History mcg/actuation HFA aerosol inhaler (Atrovent HFA) trazodone 300 mg tablet 300 mg PO QHS 01/21/21 Unknown History vitamin B12 1 mg-folic acid 0.8 mg 1 tab PO DAILY 01/21/21 Unknown History tablet dulaglutide 0.75 mg/0.5 mL 1.5 mg subcut QWEEK #2 mL 08/05/23 Unknown Rx subcutaneous pen injector (Trulicity) pregabalin 150 mg capsule 150 mg PO BID 01/03/24 Unknown History topiramate 25 mg tablet 25 mg PO QHS headache 01/03/24 Unknown History topiramate 50 mg tablet 50 mg PO QHS 01/03/24 Unknown History trospium 20 mg tablet 20 mg PO QHS 01/03/24 Unknown History ondansetron 4 mg disintegrating 4 mg PO Q6H PRN nausea and 03/28/24 Unknown Rx tablet vomiting #20 tabs lidocaine 4 % topical patch 1 patch topical QDAY PRN pain #30 08/13/24 Unknown Rx (Salonpas (lidocaine)) ea diazepam 5 mg tablet 5 mg PO Q8 PRN Muscle Spasm #10 09/02/24 Unknown Rx tabs Allergy/AdvReac Type Severity Reaction Status Date / Time latex Allergy Hives Verified 09/02/24 13:48 hydromorphone (From Dilaudid) AdvReac Vomiting Verified 09/02/24 13:48 Family History Mother , 58 Heart disease Diabetes COPD (chronic obstructive pulmonary disease) Father Heart disease Surgical History S/P hysterectomy History of appendectomy History of cholecystectomy History of back surgery Previous back surgery Hx of appendectomy History of cholecystectomy Social History current occupational status: unemployed pets and animals: Yes Smoking Status: Current every day smoker tobacco type: e-cigarettes alcohol intake: current details: Occasional substance use type: does not use caffeine: No do you feel safe at home: Yes ROS ROS ED Constitutional Constitutional ED: Denies chills, fever(s) or sweats ENT ENT ED: Denies sore throat Cardiovascular Cardiovascular: Denies chest pain, leg edema, palpitations or racing heartbeat Respiratory/Chest Respiratory/Chest: Denies cough, dyspnea or dyspnea on exertion Gastrointestinal Gastrointestinal: Denies abdominal pain, diarrhea, nausea or vomiting Genitourinary Genitourinary ED: Denies dysuria, hematuria or urinary frequency Musculoskeletal Musculoskeletal: Reports neck pain; Denies back pain or extremity pain Integumentary Denies rash or wounds Neurologic Neurologic: Reports headache(s); Denies paresthesias or weakness EXAM Physical Exam Const Vital Signs: 09/02/24 13:46 09/02/24 17:46 09/02/24 19:36 Temperature 97.2 F L 98.2 F Temperature Source Temporal Pulse Rate 117 H 88 78 Respiratory Rate 16 16 12 Blood Pressure 145/84 H 127/84 H 135/67 H Blood Pressure Mean 104 98 89 Pulse Ox 98 99 97 Oxygen Delivery Method Room Air Room Air Positive well nourished and well developed Constitutional Narrative: Nontoxic General Appearance ED: well developed and NAD HEENT Reports moist mucous membranes normocephalic and atraumatic Eyes General Eye ED: Yes normal appearance of both eyes Neck full ROM Neck Narrative: Paracervical tenderness. No meningismus. Chest Wall Chest: Negative for tenderness Resp normal respiratory effort and normal air movement Effort and Inspection: symmetric chest movement; Negative for respiratory distress Cardio regular rate, regular rhythm and no murmurs Peripheral Pulses: pulses 2+ throughout GI normal to inspection, nondistended, normoactive bowel sounds and non-tender Palpation: Negative for guarding or rebound tenderness present Extremity normal to inspection General Extremety ED: Negative for edema or tenderness General Extremity: Negative for edema Neuro oriented x3, CN's II-XII intact bilaterally and no sensory deficits noted Sensorium / Orientation: awake and alert Skin no rashes or lesions noted and no wounds MDM MDM MDM Narrative Medical decision making narrative: Interventions / MDM: Differential diagnosis: Cervical radiculopathy, cervical stenosis, migraine headache Diagnosis considered but do not suspect: No clinical meningitis, no central cord syndrome. Intracranial hemorrhage however CT negative. Patient My EKG interpretation: N/A Imaging independently reviewed and interpreted by myself: CT brain: No acute process. CT cervical spine cervical stenosis at C4-C6 right greater than left. External documents reviewed: N/A Test considered but not ordered:N/A ED course: Patient 6 weeks of pain states worsened today she is nontoxic on evaluation however after discussion she became more tearful stating her head is throbbing. Discussed with her she is on Lyrica she reports radicular pain this can be increased by her PCP. She has advanced imaging with MRIs from her report upcoming scheduled by neurology. No meningismal findings. She states no imagings of her neck has been obtained. She tearful with her headache symptoms. Discussed will obtain CT scans of her head and neck in the ED. I will treat her with oral Valium for her neck pain and reevaluate. CT brain negative. CT cervical spine with stenosis. Her primary reported symptoms more left side. Clinically was feeling better with Valium. I discussed with her to call her PCP possibly changing her dosing of her Lyrica. She will be continued on Valium as needed. Outpatient follow-up with her doctors. She reports MRI studies pending of her cervical spine by her neurology. All questions were answered. Re-evaluation: stable Disposition discussed with patient/family/significant other: Patient Case discussed with consulting clinician: N/A This note was generated with Divergenceation software. It may contain incorrect words, spelling, and punctuation that were not noted in checking the note before signing. Radiography Diagnostic Testing: Clinical Impression(s) from Imaging Studies Brain CT 09/02/24 17:07 IMPRESSION: No acute intracranial findings. CLINICAL HISTORY: HEADACHE Reading Location: [facility] Cervical Spine CT 09/02/24 17:07 IMPRESSION: 1. No acute cervical spinal fracture or malalignment identified. 2. Multilevel spondylosis as detailed, suboptimally delineated by CT. Spinal canal stenoses up to at least moderate at C4-C6. Bony foraminal stenoses up to at least moderate. Consider outpatient MRI as indicated. 3. Additional description as above. Reading Location: [id number] Discharge Plan Triage Chief Complaint: Other, Pain/Inj ED Provider: Ulysses Ceballos Dx/Rx/DC Orders Clinical Impression: Cervical stenosis of spine, Neck pain, Headache Instructions: ED Neck Pain Prescriptions: New diazepam [diazepam] 5 mg tablet 5 mg PO Q8 PRN (Reason: Muscle Spasm) Qty: 10 0RF No Action lidocaine [Salonpas (lidocaine)] 4 % adhesive patch,medicated 1 patch topical QDAY PRN (Reason: pain) Qty: 30 2RF atorvastatin 10 MG tablet 10 mg PO DAILY levothyroxine 25 MCG tablet 25 mcg PO DAILY metformin 1,000 MG tablet 1,000 mg PO BID albuterol sulfate [ProAir HFA] 1 PUFF inhaler 2 puff inhalation Q4H PRN PRN (Reason: shortness of breath) insulin glargine 100 UNIT/ML insulin pen 18 unit SQ BREAKFAST trazodone 300 mg tablet 300 mg PO QHS Patient Comments: TAKE 1 TABLET BY MOUTH EVERY DAY AT BEDTIME NEEDED vitamin Y17-aqaza acid 1-0.8 mg Tablet 1 tab PO DAILY Atrovent HFA 17 mcg/actuation Hfa Aerosol Inhaler 1 inh INHALATION DAILY alpha lipoic acid 600 mg capsule 600 mg PO DAILY Patient Comments: TAKE 1 CAPSULE BY MOUTH EVERY DAY topiramate 25 mg tablet 25 mg PO QHS topiramate 50 mg tablet 50 mg PO QHS trospium 20 mg tablet 20 mg PO QHS pregabalin 150 mg capsule 150 mg PO BID Patient Comments: pt states she no longer takes this med ondansetron 4 mg tablet,disintegrating 4 mg PO Q6H PRN (Reason: nausea and vomiting) Qty: 20 0RF Trulicity 0.75 mg/0.5 mL pen injector 1.5 mg subcut QWEEK Qty: 2 0RF Primary Care Provider: Sophie Huitron Referrals: Sophie Huitron MD [Primary Care Provider] - 3-5 Days Efe Moss MD [Non-Staff -Ordering Privileges] - 3-5 Days Activity Restrictions/Additional Instructions: CT brain negative. 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 Discussed with your doctor about increasing your Lyrica. Take Valium as prescribed. You have pending MRI orders from your neurologist. Refills through your doctor. Print Language: Kiswahili Disposition Disposition: Home, Self Care Discharge Date/Time: 09/02/24 19:42
[2024-09-02] MEDS: diazePAM 5 MG Tablet PO (17:17)
[2024-09-02 17:46] VITALS: BP 127/84; PULSE 88; RESP 16; O2SAT 99
[2024-09-02 19:36] VITALS: BP 135/67; PULSE 78; RESP 12; TEMP 36.8; O2SAT 97
== END 2024-09-02 19:42 | disposition home or self-care (01) ==
PROVIDERS: Emergency Provider Emergency Medicine; PCP Family Medicine; Visit Provider Emergency Medicine
DX: M48.02 Spinal stenosis, cervical region (principal); E11.40 Type 2 diabetes mellitus with diabetic neuropathy, unspecified; Z79.4 Long term (current) use of insulin; E78.00 Pure hypercholesterolemia, unspecified; E03.9 Hypothyroidism, unspecified; J45.909 Unspecified asthma, uncomplicated; G43.909 Migraine, unspecified, not intractable, without status migrainosus; G47.30 Sleep apnea, unspecified; G89.29 Other chronic pain; F17.290 Nicotine dependence, other tobacco product, uncomplicated; Z79.84 Long term (current) use of oral hypoglycemic drugs; Z79.85 Long-term (current) use of injectable non-insulin antidiabetic drugs; Z79.890 Hormone replacement therapy; Z79.899 Other long term (current) drug therapy
CPT/HCPCS: 70450; 72125; 99283

== ENCOUNTER → 2024-09-14 | Outpatient (CLI) | payer MEDICARE, MEDICAID, SELFPAY ==
--- NOTE | 2024-09-14 07:55 | MRI_ITS ---
PROCEDURE: BRAIN WITHOUT CONTRAST N/A REASON FOR EXAM: SEVERE HEADACHES TECHNIQUE: Brain MRI without intravenous contrast. CONTRAST: N/A COMPARISON: CT brain of 09/02/2024 FINDINGS: Brain: No acute infarct, hemorrhage, mass or mass effect. No significant abnormal GRE, T2 or FLAIR signal. Diffusion weighted images: No restricted diffusion Ventricles: Normal size ventricles Major Intracranial Vessels: Anterior circulation flow voids are present. Vertebrobasilar system patent. Sinuses: No significant sinus disease. Mastoids: No effusions. IACs: Unremarkable. Cranial Nerves VII and VIII: Intact. Cochlea, Vestibule and Semicircular Canals: Intact. Middle Ear Cavities: No effusions. MRI/Brain without Contrast IMPRESSION: No acute process. Reading Location: [facility]
--- NOTE | 2024-09-14 08:30 | MRI_ITS ---
PROCEDURE: SPINE CERVICAL (ROUTINE) 09/14/2024 REASON FOR EXAM: SEVERE HEADACHES TECHNIQUE: Noncontrast cervical spine MRI. Coronal and Sagittal reconstruction series were provided. COMPARISON: None. FINDINGS: Vertebrae: Cervical vertebral body heights are preserved. Bone marrow signal is unremarkable. Alignment: Normal. No spondylolisthesis. Spinal Cord: Cervical spinal cord is of normal size and signal intensities. Structures at the foramen magnum are unremarkable. C2-3: Unremarkable C3-4: Unremarkable C4-5: Unremarkable C5-6: Moderate disc osteophyte effacing the thecal sac and centrally indenting the spinal cord C6-7: Unremarkable C7-T1: Unremarkable MRI/Spine Cervical (Routine) IMPRESSION: [id number] disc osteophyte at C5-6 effacing the thecal sac and centrally indenting the spinal cord by superimposed midline extrusion. No significant spinal canal or neural foraminal stenosis other levels Reading Location[facility]
== END | disposition home or self-care (01) ==
LOC: MRI 07:06
PROVIDERS: PCP Family Medicine
DX: M54.2 Cervicalgia (principal); R51.0 Headache with orthostatic component, not elsewhere classified
CPT/HCPCS: 70551; 72141

== ENCOUNTER → 2024-09-23 | Outpatient (CLI) | payer MEDICARE, MEDICAID, SELFPAY ==
--- NOTE | 2024-09-23 12:35 | BI_ITS ---
EXAM: SCRN MAMM (CAD)W/FELECIA BILAT DATE: 09/23/2024 CLINICAL HISTORY: F, Age 54 y/o , SCREENING BREAST CANCER RISK ASSESSMENT: Has not been calculated. TECHNIQUE: Bilateral screening digital breast tomosynthesis with 2D and 3D images. Computer aided detection. COMPARISON: Prior exam(s) dated 09/22/2023. FINDINGS: TISSUE DENSITY: The breast tissue is almost entirely fatty. Bilateral Breast Mammographic Findings: There are no suspicious masses, suspicious cluster of microcalcifications, architectural distortion or secondary signs of malignancy identified in either breast. Benign-appearing round microcalcifications and macrocalcifications are seen in both breasts. A stable, 5 mm, well-circumscribed, isodense mass in the superior outer, far posterior aspect of the right breast is noted. BI/SCRN MAMM (CAD)W/FELECIA BILAT IMPRESSION: Right Breast: BIRADS 2 BENIGN FINDING. Left Breast: BIRADS 2 BENIGN FINDING. OVERALL FINAL ASSESSMENT: BIRADS 2 BENIGN FINDING RECOMMENDATION: Routine annual follow-up in 1 Year A letter with findings and recommendations will be mailed to the patient. Reading Location: [id number]
== END | disposition home or self-care (01) ==
LOC: OPBI 12:33
PROVIDERS: PCP Family Medicine; Referring Provider Family Medicine; Visit Provider Family Medicine
DX: Z12.31 Encounter for screening mammogram for malignant neoplasm of breast (principal)
CPT/HCPCS: 77063; 77067

== ENCOUNTER → 2024-10-11 | Outpatient (CLI) | payer MEDICARE, MEDICAID, SELFPAY ==
[2024-10-11 13:01] LABS: Cholesterol 160 mg/dL (<=200); High Density Lipoprotein 58 mg/dL; Low Density Lipoprotein Calc. 74 mg/dL; Triglycerides 141 mg/dL; Very Low Density Lipoprotein 28 mg/dL (5-40); cholesterol:hdl ratio screen 2.78
[2024-10-11 13:32] LABS: Microalbumin,Random Urine < 12.0 mg/L (NO RANGE EST.); Microalbumin:Creatinine Ratio UNABLE TO CALCULATE mg/g CRE
== END | disposition home or self-care (01) ==
LOC: MTLAB 09:48
PROVIDERS: PCP Family Medicine; Referring Provider Family Medicine; Visit Provider Family Medicine
DX: E11.9 Type 2 diabetes mellitus without complications (principal); E03.9 Hypothyroidism, unspecified
CPT/HCPCS: 36415; 80061; 82043; 82570; 84443

== ENCOUNTER 2024-11-08 20:47 | Emergency (ER) | payer MEDICARE, MEDICAID, SELFPAY ==
[2024-11-08 20:48] VITALS: BP 136/91; PULSE 113; RESP 20; TEMP 37.1; O2SAT 99; BMI 41.1
[2024-11-08 21:12] LABS: Absolute Lymphocyte Count 3.15 X10^3/uL (0.83-4.51); Absolute Neutrophil Count 6.1 X10^3/uL (2.0-7.7); Basophil# 0.05 X10^3/uL; Basophil% 0.5 % (0-1); Eosinophil# 0.16 X10^3/uL; Eosinophils% 1.5 % (0-5); Hematocrit 43.5 % (37-47); Hemoglobin 14.9 g/dL (12.0-15.0); Lymphocyte # 3.15 X10^3/ul (0.83-4.51); Lymphocyte % 30.4 % (19-41); Mean Corp Hgb Conc 34.3 g/dL (32-36); Mean Corpuscular Hgb 29.8 pg (27.0-32.0); Mean Platelet Vol. 9.9 fl (6.2-12.0); Monocyte# 0.89 X10^3/uL; Monocyte% 8.6 % (0-10); NRBC Flagged by Analyzer 0 % (0-5); Neutrophil # 6.08 X10^3/uL (2.7-7.7); Neutrophil % 58.6 % (47-70); Platelet Count 208 K/mm3 (150-450); RBC Distribution Width CV 14.1 % (11.6-14.6); RBC Distribution Width SD 44.8 fl (35.1-43.9); White Blood Count 10.4 K/mm3 (4.4-11.0)
[2024-11-08] MEDS: 0.9% Normal Saline (1000mL) 1,000 ML 1000 ML IV (21:12)
[2024-11-08] MEDS: Ondansetron 4 MG/2 ML Vial IV (21:12)
--- NOTE | 2024-11-08 21:22 | EX.ED.DYSGE1 ---
HPI History of Present Illness Chief Complaint: Abd Pain Informant: patient Narrative Narrative: 54-year-old female presenting to the emergency room with abdominal pain and diarrhea. Patient states that she has had chronic abdominal issues for years. She has recently started Ozempic and 2 weeks ago increased her dosing to 0.5 on Sundays. Patient states that she has had increased diarrhea since starting the Ozempic particularly over the past week has been more so. She states that anytime she eats or drinks anything a she has to run to the bathroom and has had some accidents. She states that she has had no vomiting. Over the past week she has not talked to her doctor because she states she has been trying to figure out what is going on. She notes that her blood sugars have been lower than normal. No reported fevers. [facility] Medical History History of tobacco use Encounter for screening for malignant neoplasm of lung Chronic headaches Diabetes Chronic pain Endometrial polyp Wears glasses Depression Anxiety Alcohol use Arthritis High cholesterol Injury of back Migraine headache Smoker CPAP (continuous positive airway pressure) dependence Sleep apnea History of stress test Hypertension Diabetes mellitus type 2 in obese Hypothyroidism Bipolar disorder Asthma Home Medications ?Medication ?Instructions ?Recorded ?Last Taken ?Type atorvastatin 10 mg tablet 10 mg PO DAILY cholesterol lowering 02/27/16 09/04/18 11:00 History levothyroxine 25 mcg tablet 25 mcg PO DAILY thyroid 02/27/16 01/28/21 08:00 History metformin 1,000 mg tablet 1,000 mg PO BID blood sugar 03/23/18 09/04/18 22:00 History insulin glargine 100 unit/mL (3 18 unit SQ BREAKFAST 05/10/19 Unknown History mL) subcutaneous pen alpha lipoic acid 600 mg capsule 600 mg PO DAILY 01/21/21 Unknown History ipratropium bromide 17 1 inh inhalation DAILY 01/21/21 Unknown History mcg/actuation HFA aerosol inhaler (Atrovent HFA) trazodone 300 mg tablet 300 mg PO QHS 01/21/21 Unknown History pregabalin 150 mg capsule 150 mg PO BID 01/03/24 Unknown History topiramate 50 mg tablet 50 mg PO Q12H 01/03/24 Unknown History trospium 20 mg tablet 20 mg PO QHS 01/03/24 Unknown History ondansetron 4 mg disintegrating 4 mg PO Q6H PRN nausea and 03/28/24 Unknown Rx tablet vomiting #20 tabs lidocaine 4 % topical patch 1 patch topical QDAY PRN pain #30 08/13/24 Unknown Rx (Salonpas (lidocaine)) ea semaglutide 0.25 mg or 0.5 mg (2 0.5 mg subcut QWEEK 09/10/24 Unknown History mg/3 mL) subcutaneous pen injector (Ozempic) L.acidophil,salivari-Bifido 1 cap PO Q24H 11/08/24 Unknown History bifidum-Strep thermoph 175 mg capsule cyanocobalamin (vitamin B-12) 1,000 mcg PO DAILY 11/08/24 Unknown History 1,000 mcg tablet docusate sodium 100 mg capsule 100 mg PO BID PRN 11/08/24 Unknown History hydrocodone-acetaminophen 5-325mg 1 tab PO TID PRN PRN pain 11/08/24 Unknown History 5mg-325mg magnesium oxide 500 mg PO DAILY 11/08/24 Unknown History Allergy/AdvReac Type Severity Reaction Status Date / Time latex Allergy Hives Verified 11/08/24 20:50 hydromorphone (From Dilaudid) AdvReac Vomiting Verified 11/08/24 20:50 Family History Mother , 58 Heart disease Diabetes COPD (chronic obstructive pulmonary disease) Father Heart disease Surgical History S/P hysterectomy History of appendectomy History of cholecystectomy History of back surgery Previous back surgery Hx of appendectomy History of cholecystectomy Social History current occupational status: unemployed pets and animals: Yes Smoking Status: Current every day smoker tobacco type: e-cigarettes alcohol intake: current details: Occasional substance use type: does not use caffeine: No do you feel safe at home: Yes ROS ROS ED Constitutional Constitutional ED: Denies chills, fever(s) or weight loss Eyes Eyes: Denies change in vision or diplopia ENT ENT ED: Denies ear pain, rhinorrhea or sore throat Cardiovascular Cardiovascular: Denies chest pain, orthopnea, palpitations or racing heartbeat Respiratory/Chest Respiratory/Chest: Denies cough, dyspnea or orthopnea Gastrointestinal Gastrointestinal: Reports abdominal pain, diarrhea and nausea; Denies vomiting Genitourinary Genitourinary ED: Denies dysuria, hematuria or urinary frequency Musculoskeletal Musculoskeletal: Denies arthralgias or myalgias Integumentary Denies abscess or rash Neurologic Neurologic: Denies headache(s) or weakness Psychiatric Psychiatric: Denies anxiety, depression, suicidal ideation or suicidal thoughts Endocrine Endocrinology: Denies polydipsia, polyphagia or polyuria Allergic/Immunologic Allergic/Immunologic ED: Denies mouth swelling, tongue swelling or urticaria EXAM Physical Exam Const Vital Signs: 11/08/24 20:48 Temperature 98.8 F Temperature Source Oral Pulse Rate 113 H Respiratory Rate 20 H Blood Pressure 136/91 H Blood Pressure Mean 106 Pulse Ox 99 Oxygen Delivery Method Room Air Positive well nourished and well developed General Appearance ED: well developed HEENT Reports normocephalic, head/scalp atraumatic and moist mucous membranes Eyes PERRL and EOMs intact bilaterally Neck no lymphadenopathy, supple and no JVD Resp normal respiratory effort and clear to auscultation bilaterally Cardio regular rate, regular rhythm and no murmurs GI Inspection: Negative for abdominal distention Auscultation: normoactive bowel sounds Palpation: soft and tender other (diccuse); Negative for guarding or rebound tenderness present Back/Spine no CVA tenderness and normal ROM Extremity normal to inspection General Extremety ED: Negative for edema General Extremity: Negative for edema Neuro oriented x3 and CN's II-XII intact bilaterally Sensorium / Orientation: alert Motor Exam: strength 5/5 throughout Psych Psych Narrative: Very dramatic affect and is tearful at times. She is able to stop the affect and concentrate when asked very direct questions such as timing. Mood & Affect: tearful; Negative for depressed Skin no rashes or lesions noted and no wounds MDM MDM MDM Narrative Medical decision making narrative: Differential diagnosis includes but not limited to dehydration medication side effects electrolyte abnormalities acute kidney injury pancreatitis bowel obstruction gastroparesis Basic blood work was rather unremarkable. AST 44 ALT of 40 normal lipase total bilirubin is normal. Creatinine is normal at 0.77 with a BUN of 17. Sodium potassium within normal limits. White count is 10.4 with normal differential. She is not anemic at 14.9. Her abdominal exam does not reveal any distention with normal active bowel sounds. It is soft with no involuntary guarding. I believe the patient can be discharged home. Would encourage her to do her best at getting calories and nutrition in whether or not she has diarrhea postprandial or not. I would encourage her to call her doctor and discuss taking her next dose of Ozempic given her symptomology. History & Record Review Discussion w/independent historian: Patient Additional record(s) reviewed:: Prior ED visit and Prior labs Lab Data Attestation: I reviewed the patient's lab results. Labs: Laboratory Results - last 24 hr 11/08/24 21:04 WBC 10.4 RBC 5.00 Hgb 14.9 Hct 43.5 MCV 87.0 MCH 29.8 MCHC 34.3 RDW Std Deviation 44.8 H RDW Coeff of Lore 14.1 Plt Count 208 MPV 9.9 Immature Gran % (Auto) 0.400 Neut % (Auto) 58.6 Lymph % (Auto) 30.4 [place] % (Auto) 8.6 Eos % (Auto) 1.5 Baso % (Auto) 0.5 Absolute Neuts (auto) 6.1 Absolute Lymphs (auto) 3.15 Nucleated RBC % 0 Sodium 139 Potassium 3.5 Chloride 105 Carbon Dioxide 20.8 L Anion Gap 13 BUN 17 Creatinine 0.77 Estim Creat Clear Calc 86.38 Est GFR (MDRD) Non-Af 92 BUN/Creatinine Ratio 21.8 H Glucose 183 H Calcium 9.2 Total Bilirubin 0.51 Direct Bilirubin 0.24 AST 44 H ALT 40 H Alkaline Phosphatase 69 Total Protein 7.1 Albumin 4.2 Globulin 2.9 Lipase 26 Discharge Plan Triage Chief Complaint: Abd Pain ED Provider: Alhaji Piper Dx/Rx/DC Orders Clinical Impression: Abdominal pain, Diabetes, Medication side effect, Diarrhea Prescriptions: No Action lidocaine [Salonpas (lidocaine)] 4 % adhesive patch,medicated 1 patch topical QDAY PRN (Reason: pain) Qty: 30 2RF Ozempic 0.25 mg or 0.5 mg (2 mg/3 mL) pen injector 0.5 mg subcut QWEEK Patient Comments: INJECT 0.25 MG SUBCUTANEOUSLY WEEKLY FOR 30 DAYS THEN 0.5MG WEEKLY atorvastatin 10 MG tablet 10 mg PO DAILY levothyroxine 25 MCG tablet 25 mcg PO DAILY metformin 1,000 MG tablet 1,000 mg PO BID insulin glargine 100 UNIT/ML insulin pen 18 unit SQ BREAKFAST trazodone 300 mg tablet 300 mg PO QHS Patient Comments: TAKE 1 TABLET BY MOUTH EVERY DAY AT BEDTIME NEEDED Atrovent HFA 17 mcg/actuation Hfa Aerosol Inhaler 1 inh INHALATION DAILY alpha lipoic acid 600 mg capsule 600 mg PO DAILY Patient Comments: TAKE 1 CAPSULE BY MOUTH EVERY DAY topiramate 50 mg tablet 50 mg PO Q12H trospium 20 mg tablet 20 mg PO QHS pregabalin 150 mg capsule 150 mg PO BID Patient Comments: pt states she no longer takes this med ondansetron 4 mg tablet,disintegrating 4 mg PO Q6H PRN (Reason: nausea and vomiting) Qty: 20 0RF Patient Comments: pt reports not taking 11/08/2024 despite nausea. but reports having Rx at home. cyanocobalamin (vitamin B-12) 1,000 mcg tablet 1,000 mcg PO DAILY hydrocodone-acetaminophen 5-325 mg tablet 1 tab PO TID PRN PRN (Reason: pain) L.acidoph,saliva-B.bif-S.therm 175 mg capsule 1 cap PO Q24H magnesium oxide 500 mg magnesium tablet 500 mg PO DAILY docusate sodium 100 mg capsule 100 mg PO BID PRN Primary Care Provider: Sophie Huitron Referrals: Sophie Huitron MD [Primary Care Provider] - As soon as possible Activity Restrictions/Additional Instructions: Do your best to get calories into your system even if you have diarrhea after you eat some will be absorbed to help maintain your blood sugar and caloric needs. Based on your blood work you are doing adequate in terms of hydration and keeping your electrolytes in check. I strongly urged you to call your doctor and discuss your symptoms before you take your next dose of Ozempic. Print Language: Faroese Disposition Disposition: Home, Self Care
[2024-11-08 21:41] LABS: AST(SGOT) 44 U/L (<=31); Alanine Aminotransfer ALT/SGPT 40 U/L (<=34); Albumin, Serum 4.2 g/dL (3.5-5.0); Alkaline Phosphatase 69 U/L (35-104); Anion Gap 13 (5-15); BUN 17 mg/dL (4-19); BUN/Creat Ratio 21.8 RATIO (10-20); Bilirubin, Direct 0.24 mg/dL (0.00-0.30); Calcium,Total 9.2 mg/dL (7.6-11.0); Carbon Dioxide 20.8 mmol/L (21.0-32.0); Chloride 105 mmol/L (98-108); Creatinine, Serum 0.77 mg/dL (0.70-1.20); EST Glomerular Filtration Rate 92 (>60); Estimated Creatinine Clearance 86.38 ml/min (50-250); Globulin 2.9 g/dL (2.2-4.2); Glucose 183 mg/dL (70-99); Lipase 26 U/L (13-75); Potassium 3.5 mmol/L (3.3-5.1); Protein, Total 7.1 g/dL (5.9-8.4); Sodium Level 139 mmol/L (133-145); Total Bilirubin 0.51 mg/dL (0.00-1.30)
[2024-11-08 22:12] VITALS: BP 102/52; PULSE 98; RESP 18; TEMP 36.8; O2SAT 99
== END 2024-11-08 22:17 | disposition home or self-care (01) ==
PROVIDERS: Emergency Provider Emergency Medicine; PCP Family Medicine; Visit Provider Emergency Medicine
DX: R10.9 Unspecified abdominal pain (principal); F31.9 Bipolar disorder, unspecified; E11.9 Type 2 diabetes mellitus without complications; Z79.4 Long term (current) use of insulin; R19.7 Diarrhea, unspecified; T38.3X5A Adverse effect of insulin and oral hypoglycemic [antidiabetic] drugs, initial encounter; I10 Essential (primary) hypertension; F41.9 Anxiety disorder, unspecified; E03.9 Hypothyroidism, unspecified; E78.00 Pure hypercholesterolemia, unspecified; G47.30 Sleep apnea, unspecified; J45.909 Unspecified asthma, uncomplicated; F17.290 Nicotine dependence, other tobacco product, uncomplicated; Z90.49 Acquired absence of other specified parts of digestive tract; Z79.51 Long term (current) use of inhaled steroids; Z79.84 Long term (current) use of oral hypoglycemic drugs; Z79.85 Long-term (current) use of injectable non-insulin antidiabetic drugs; Z79.890 Hormone replacement therapy; Z79.899 Other long term (current) drug therapy
CPT/HCPCS: 80048; 80076; 83690; 85025; 96361; 96374; 99283; A4216; J2405

== ENCOUNTER → 2024-11-12 | Outpatient (CLI) | payer MEDICARE, MEDICAID, SELFPAY ==
--- NOTE | 2024-11-12 10:17 | NEURO_ITS ---
NCS and/or EMG Patient Report Ordering Doctor: Sheree Hills DATE OF SERVICE: 11/12/24 Clinical Summary: 54 year old female patient with symptoms of numbness/tingling in both hands. Nerve Conduction Studies Summary: Nerve conduction studies were performed in the bilateral upper extremities. The ulnar-D5 SNAP distal latencies were prolonged bilaterally. The right ulnar-D5 SNAP amplitude was reduced. The right ulnar-guerra response amplitude was reduced. There was right ulnar motor conduction velocity slowing (>10 m/s) across the elbow. Needle Examination Summary: Needle examination of select muscles of the bilateral upper extremities dem onstrated a higher proportion of motor unit action potentials with reduced recruitment, increased amplitude, increased duration, and polyphasia in the right first dorsal interosseous muscle. Impression: This is an abnormal study. There is electrodiagnostic evidence of a right ulnar mononeuropathy at the elbow, with secondary motor fiber axonal loss. There is no definite electrodiagnostic evidence of a left ulnar mononeuropathy at the elbow. There is no electrodiagnostic evidence of a right or left median mononeuropathy at the wrist (carpal tunnel syndrome) or cervical radiculopathy. Comment: the patient had difficulty tolerating the needle examination in the right upper extremity forearm, which was very tender (in the setting or prior injury/surgery) and thus limited the extent of needle examination of the muscles this region. Multi Select Codes Neurology Neurology Interp Codes: 26464-62 Musc test done w/n test comp (interp) (2) and 16432-66 Nrv cndj test 13/> studies (interp)
== END | disposition home or self-care (01) ==
LOC: PSN 09:01
PROVIDERS: PCP Family Medicine
DX: M54.2 Cervicalgia (principal); R20.0 Anesthesia of skin; R20.2 Paresthesia of skin
CPT/HCPCS: 95886; 95913

== ENCOUNTER 2024-12-08 18:17 | Emergency (ER) | payer MEDICARE, MEDICAID, SELFPAY ==
[2024-12-08 18:19] VITALS: BP 100/78; PULSE 103; RESP 16; TEMP 36.9; O2SAT 96; BMI 40.2
[2024-12-08] MEDS: HYDROcodone Bitartrate/Apap 5/325 Tablet PO (18:29)
[2024-12-08] MEDS: Ondansetron ODT 4 MG Tablet PO (18:30)
--- NOTE | 2024-12-08 18:34 | EX.ED.GENINJ ---
HPI History of Present Illness Chief Complaint: Fall Detail of Chief Complaint: [place] fall forward injuring her right and left knee, right should Informant: patient Onset/Context/Timing Onset: Today and Hours Mechanism/Context: Blunt Injury and Fall Location of pain/injuries: Right shoulder, Right elbow and Right hand Current Severity: Mild Maximum Severity: Moderate Worsened by: Attempt to move right upper extremity Relieved by: Nothing Associated Symptoms Associated Symptoms: Positive for Loss of function (History of frozen right shoulder.); Negative for Parasthesias, Weakness, Inability to ambulate, Loss of consciousness or Amnesia Narrative Narrative: Patient is a 54-year-old woman. She had mechanical fall. She injured her right shoulder, elbow and hand. She also has abrasion with pain to her right and left knee. She denies head trauma. She is not amnestic. She denies neck pain. She denies paresthesia, anesthesia or motor weakness of upper or lower extremity. She is on no anticoagulant. She denies cardiac or respiratory symptoms. She denies GI symptoms typically black-maroon stool. She denies trouble with speech or swallowing. Prior similar symptoms: Yes Recent Illness/Hospitalization: No PFSH PFS Medical History Adhesive bursitis of right shoulder History of tobacco use Encounter for screening for malignant neoplasm of lung Chronic headaches Diabetes Chronic pain Endometrial polyp Wears glasses Depression Anxiety Alcohol use Arthritis High cholesterol Injury of back Migraine headache Smoker CPAP (continuous positive airway pressure) dependence Sleep apnea History of stress test Hypertension Diabetes mellitus type 2 in obese Hypothyroidism Bipolar disorder Asthma Home Medications ?Medication ?Instructions ?Recorded ?Last Taken ?Type atorvastatin 10 mg tablet 10 mg PO DAILY cholesterol lowering 02/27/16 09/04/18 11:00 History levothyroxine 25 mcg tablet 25 mcg PO DAILY thyroid 02/27/16 01/28/21 08:00 History metformin 1,000 mg tablet 1,000 mg PO BID blood sugar 03/23/18 09/04/18 22:00 History insulin glargine 100 unit/mL (3 18 unit SQ BREAKFAST 05/10/19 Unknown History mL) subcutaneous pen alpha lipoic acid 600 mg capsule 600 mg PO DAILY 01/21/21 Unknown History ipratropium bromide 17 1 inh inhalation DAILY 01/21/21 Unknown History mcg/actuation HFA aerosol inhaler (Atrovent HFA) trazodone 300 mg tablet 300 mg PO QHS 01/21/21 Unknown History pregabalin 150 mg capsule 150 mg PO BID 01/03/24 Unknown History topiramate 50 mg tablet 50 mg PO Q12H 01/03/24 Unknown History trospium 20 mg tablet 20 mg PO QHS 01/03/24 Unknown History lidocaine 4 % topical patch 1 patch topical QDAY PRN pain #30 08/13/24 Unknown Rx (Salonpas (lidocaine)) ea L.acidophil,salivari-Bifido 1 cap PO Q24H 11/08/24 Unknown History bifidum-Strep thermoph 175 mg capsule cyanocobalamin (vitamin B-12) 1,000 mcg PO DAILY 11/08/24 Unknown History 1,000 mcg tablet docusate sodium 100 mg capsule 100 mg PO BID PRN 11/08/24 Unknown History hydrocodone-acetaminophen 5-325mg 1 tab PO TID PRN PRN pain 11/08/24 Unknown History 5mg-325mg magnesium oxide 500 mg PO DAILY 11/08/24 Unknown History semaglutide 0.25 mg or 0.5 mg (2 0.25 mg subcut QWEEK 11/20/24 Unknown History mg/3 mL) subcutaneous pen injector (Ozempic) Allergy/AdvReac Type Severity Reaction Status Date / Time latex Allergy Hives Verified 11/26/24 09:32 hydromorphone (From Dilaudid) AdvReac Vomiting Verified 11/26/24 09:32 Family History Mother , 58 Heart disease Diabetes COPD (chronic obstructive pulmonary disease) Father Heart disease Surgical History S/P hysterectomy History of appendectomy History of cholecystectomy History of back surgery Previous back surgery Hx of appendectomy History of cholecystectomy Social History current occupational status: unemployed pets and animals: Yes Smoking Status: Current every day smoker tobacco type: e-cigarettes alcohol intake: current details: Occasional substance use type: does not use caffeine: No do you feel safe at home: Yes ROS ROS ED Constitutional Constitutional ED: Denies chills or fever(s) Eyes Eyes: Denies blurry vision or change in vision ENT ENT ED: Denies ear pain, rhinorrhea or sore throat Cardiovascular Cardiovascular: Denies chest pain or palpitations Respiratory/Chest Respiratory/Chest: Denies cough, dyspnea or dyspnea on exertion Gastrointestinal Gastrointestinal: Denies nausea or vomiting Musculoskeletal Musculoskeletal: Reports other Details: Abrasion and pain right and left knee, right hand, right elbow and exacerbation of right shoulder pain ; Denies arthralgias, back pain or myalgias Integumentary Reports Abrasions Neurologic Neurologic: Denies headache(s), paresthesias or weakness Hematologic/Lymphatic Hematologic/Lymphatic: Denies easy bleeding or easy bruising EXAM Physical Exam Const Vital Signs: 12/08/24 18:19 12/08/24 18:22 Temperature 98.5 F Temperature Source Oral Pulse Rate 103 H Respiratory Rate 16 Respiratory Effort Normal Non-Labored Respiratory Depth Normal Respiratory Pattern Normal Blood Pressure 100/78 Blood Pressure Mean 85 Pulse Ox 96 Oxygen Delivery Method Room Air Positive well nourished and well developed Constitutional Narrative: BMI is 40.2. Patient's vitals are remarkable for tachycardia. General Appearance ED: well developed HEENT HEENT Narrative: No clinical findings of basilar skull fracture. atraumatic; Negative for tenderness Nose: Negative for septum abnormal Eyes PERRL and EOMs intact bilaterally General Eye ED: Yes other Other Details: No subconjunctival hemorrhage. Neck full ROM Resp normal respiratory effort and clear to auscultation bilaterally Cardio regular rhythm Rate: regular rate GI GI Narrative: Abdomen soft nontender. Extremity Negative for normal to inspection or full ROM Extremity Narrative: Patient has pain with palpation of the proximal humerus. She has very limited range of motion due to frozen shoulder. She has pain with patient over the lateral epicondyle and radial head. Supination pronation causes her pain both in the shoulder and elbow. There is no pain ovation of the olecranon process or medial epicondyle. There is no pain the patient of the distal radius or ulna. There is pain palpation over the MCP joint of the right little finger. There is an abrasion noted and contusion. Median, radial and ulnar function intact. Patient is able to extend and flex at the right and left knee 180 degrees of extension and flex to 90 degrees. There is no lax with varus valgus tress testing. There is no joint line tenderness. There is discomfort with palpation over the right and left patella. This area is bruised and has abrasions. Patella is not ballotable. There is no effusion. Negative Bev's test. Negative modified Chino's test. DP pulses palpable. Neuro oriented x3, CN's II-XII intact bilaterally and moves all extremities Nai Coma Scale: document GCS findings Spontaneous Obeys Commands Oriented 15 Sensorium / Orientation: alert Plantar Reflex: Downgoing: bilateral Psych mental status grossly normal and thought process normal Skin no rashes or lesions noted and No no wounds Trauma: abrasion MDM MDM MDM Narrative Medical decision making narrative: In my opinion patient has contusion abrasion to the knees x-rays were not obtained. Because of the swelling and tenderness over the fifth MCP joint x-ray of the hand was obtained. Because of the pain over the lateral epicondyle and radial head x-ray of the elbow was obtained. X-ray of the shoulder was obtained because of pain ovation of the proximal humerus. These were obtained to determine if patient has contusion versus fracture. Patient was medicated with oral hydrocodone. Radiography Chest X-Ray - ED: Read by ED Physician (Three-view x-ray of the right shoulder, elbow and hand were independently viewed interpreted by me at 1924 as negative. There is no fracture, subluxation dislocation. No foreign body noted. With respect to the elbow x-ray there is no anterior posterior fat pad noted either.) Treatment and Re-Evaluation Narrative: Patient was informed of her results. He was instructed ice 6-8 times a day. Discharge Plan Triage Chief Complaint: Fall ED Provider: Mathew Santiago Dx/Rx/DC Orders Clinical Impression: Contusion of right shoulder, initial encounter, Diabetes, Adhesive bursitis of right shoulder, Contusion of right elbow, initial encounter, Contusion of right hand including fingers, Contusion of right knee, initial encounter, Contusion of left knee, initial encounter, Abrasion, multiple sites, Injury due to fall Instructions: ED Abrasion, ED Contusion, Lower Extremity, ED Contusion, Upper Extremity Prescriptions: No Action lidocaine [Salonpas (lidocaine)] 4 % adhesive patch,medicated 1 patch topical QDAY PRN (Reason: pain) Qty: 30 2RF Ozempic 0.25 mg or 0.5 mg (2 mg/3 mL) pen injector 0.25 mg subcut QWEEK Patient Comments: INJECT 0.25 MG SUBCUTANEOUSLY WEEKLY FOR 30 DAYS THEN 0.5MG WEEKLY atorvastatin 10 MG tablet 10 mg PO DAILY levothyroxine 25 MCG tablet 25 mcg PO DAILY metformin 1,000 MG tablet 1,000 mg PO BID insulin glargine 100 UNIT/ML insulin pen 18 unit SQ BREAKFAST trazodone 300 mg tablet 300 mg PO QHS Patient Comments: TAKE 1 TABLET BY MOUTH EVERY DAY AT BEDTIME NEEDED Atrovent HFA 17 mcg/actuation Hfa Aerosol Inhaler 1 inh INHALATION DAILY alpha lipoic acid 600 mg capsule 600 mg PO DAILY Patient Comments: TAKE 1 CAPSULE BY MOUTH EVERY DAY topiramate 50 mg tablet 50 mg PO Q12H trospium 20 mg tablet 20 mg PO QHS pregabalin 150 mg capsule 150 mg PO BID Patient Comments: pt states she no longer takes this med cyanocobalamin (vitamin B-12) 1,000 mcg tablet 1,000 mcg PO DAILY hydrocodone-acetaminophen 5-325 mg tablet 1 tab PO TID PRN PRN (Reason: pain) L.acidoph,saliva-B.bif-S.therm 175 mg capsule 1 cap PO Q24H magnesium oxide 500 mg magnesium tablet 500 mg PO DAILY docusate sodium 100 mg capsule 100 mg PO BID PRN Primary Care Provider: Sophie Huitron Referrals: Sophie Huitron MD [Primary Care Provider] - Activity Restrictions/Additional Instructions: 1. Apply ice to areas of discomfort 6-8 times a day 2. You will feel worse over the next 24 hours and hurt in more places. 3. Follow-up with your doctor as needed Print Language: Yakut Disposition Disposition: Home, Self Care
--- NOTE | 2024-12-08 18:35 | RAD_ITS ---
PROCEDURE: HAND MIN 3 VIEWS 12/08/2024 REASON FOR EXAM: INJURY/PAIN TECHNIQUE: HAND MIN 3 VIEWS COMPARISON: 06/21/2024 RAD/Hand Min 3 Views IMPRESSION: No acute fracture or dislocations. Scattered mild degenerative changes. No acute soft tissue abnormalities. No radiographic foreign body. Reading Location: [id number]
--- NOTE | 2024-12-08 18:35 | RAD_ITS ---
PROCEDURE: SHOULDER MIN 2 VIEWS 12/08/2024 REASON FOR EXAM: INJURY/PAIN TECHNIQUE: SHOULDER MIN 2 VIEWS COMPARISON: 11/26/2024 RAD/Shoulder min 2 Views IMPRESSION: No acute fracture or dislocations. Minimal degenerative changes of the glenohu meral joint. No acute soft tissue abnormalities. No radiographic foreign body. Reading Location: [id number]
--- NOTE | 2024-12-08 18:35 | RAD_ITS ---
PROCEDURE: ELBOW MIN 3 VIEWS 12/08/2024 REASON FOR EXAM: INJURY/PAIN TECHNIQUE: ELBOW MIN 3 VIEWS COMPARISON: None RAD/Elbow min 3 Views IMPRESSION: No acute fracture or dislocations. Mild degenerative changes of the elbow. No large joint effusion. No acute soft tissue abnormalities. No radiographic foreign body. Reading Location: [id number]
--- OUTSIDE RECORDS SUMMARY | 2024-12-08 18:55 | XMS RPT_ITS | CCD ---
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 Name Role Phone Josué Sarkar Unavailable Unavailable PROVIDER, UNKNOWN Unavailable Unavailable Dino Willis Unavailable Unavailable Josué Sarkar Unavailable Unavailable PROVIDER, UNKNOWN Unavailable Unavailable Dino Willis Unavailable Unavailable Dino Evans MD [facility] Dino Evans MD Primary Care Provider [place] [facility], [place] [facility] [place] Unavailable Dino Evans MD [facility] [place] Unavailable [facility], [place] Unavailable DINO EVANS Primary Care Unavailable CORNELL, NACHO Referring Unavailable CORNELL, NACHO Referring Unavailable DINO EVANS Primary Care Unavailable CORNELL, NACHO Referring Unavailable RENEE EVANSA Janelle Primary Care Unavailable CORNELL, NACHO Referring Unavailable DINO EVANS Primary Care Unavailable Dino Evans MD [facility] [place] Unavailable JUILET TAN MD Admitting Unavailable JULIET TAN MD Attending Unavailable JULIET TAN MD Primary Care Unavailable DINO EVANS MD Referring Unavailable SOPHIE HUITRON Consulting Unavailable PROVIDER, UNKNOWN Consulting Unavailable PROVIDER, UNKNOWN Consulting Unavailable Cornell LICSW.DRESSMAKER HELPER, Nacho Unavailable Kyrie LICSW.CIVIL ENGINEERING ASSISTANT, Saima Unavailable Kyrie LICSW.CIVIL ENGINEERING ASSISTANT, Saima Unavailable Tomy JORDAN, Dr. Barrios Primary Care Provider Jazmine JORDAN, Dr. Gabriel Attending Provider Jazmine JORDAN, Dr. Gabriel Emergency Provider Mehran PEREZ, Dr. Sapp Attending Provider Ungpipe DO, Dr. Sapp Emergency Provider Sharyn JORDAN, Dr. Keagan Thomason Attending Provider Mehran PEREZ, Dr. Sapp Referring Provider Tomy JORDAN, Dr. Barrios Referring Provider Roya PEREZ, Dr. Wilks Attending Provider Chepe JORDAN, Dr. Santillan Attending Provider Burton PEREZ, Dr. Nguyen Attending Provider Burton PEREZ, Dr. Nguyen Emergency Provider Ajay JORDAN, Dr. Wilks Attending Provider Lin PEREZ, Dr. Arora Emergency Provider Dr. Ulysses Ceballos DO Attending Provider Reinier CHIP PERSON-CJodie Attending Provider Reinier CHIP PERSON-CJodie Referring Provider Tomy JORDAN, Dr. Barrios Attending Provider Dr. Sophie Huitron MD Primary Care Provider Dr. Sophie Huitron MD Referring Provider Dr. Alhaji Piper DO Attending Provider Dr. Alhaji Piper DO Emergency Provider Reinier CHIP PERSON-CJodie Other Provider Zaira JORDAN, Dr. Bean Attending Provider Tomy JORDAN, Dr. Barrios Primary Care Provider Mendel Heredia MD Attending Provider Dr. Tyrell Mo MD Attending Provider [phone] Cornell LICSW.DRESSMAKER HELPER, Nacho Unavailable Cornell LICSW.DRESSMAKER HELPER, Nacho Unavailable NACHO CORNELL Attending Unavailable TALAMPAS, DINO Primary Care Unavailable Bubba Byers Attending Unavailable Miedel, Sophie Primary Care Unavailable Patrick Manrique Attending Unavailable Miedel, Sophie Primary Care Unavailable Harvey Lucero Attending Unavailable Miedel, Sophie Primary Care Unavailable Ulysses Ceballos Attending Unavailable Miedel, Sophie Primary Care Unavailable Patrick Manrique Attending Unavailable Miedel, Sophie Primary Care Unavailable Miedel, Sophie Primary Care Unavailable Luis Manuel Pate Attending Unavailable Jana Izquierdo Consulting Unavailable Miedel, Sophie Referring Unavailable Efe Moss Attending Unavailable Miedel, Sophie Primary Care Unavailable Miedel, Sophie Referring Unavailable Jodie Hills Attending Unavailable Miedel, Sophie Primary Care Unavailable Senait Laurent Attending Unavailable Miedel, Sophie Primary Care Unavailable Miedel, Sophie Primary Care Unavailable Luis Manuel Pate Attending Unavailable Luis Manuel Pate Admitting Unavailable Shree Bernabe Consulting Unavailable Alhaji Piper Attending Unavailable Miedel, Sophie Primary Care Unavailable Miedel, Sophie Primary Care Unavailable Mendel Heredia Referring Unavailable Mendel Heredia Attending Unavailable Miedel, Sophie Primary Care Unavailable Mk CHIP PERSON, Ramya Attending Unavailable Mk CHIP PERSON, Ramya Referring Unavailable Jodie Hills Referring Unavailable Jodie Hills Attending Unavailable Miedel, Sophie Primary Care Unavailable Miedel, Sophie Primary Care Unavailable Miedel, Sophie Referring Unavailable Efe Moss Attending Unavailable Miedel, Sophie Primary Care Unavailable Mendel Heredia Attending Unavailable Miedel, Sophie Referring Unavailable Miedel, Sophie Primary Care Unavailable Tyrell Mo Attending Unavailable Miedel, Sophie Referring Unavailable Miedel, Sophie Primary Care Unavailable Miedel, Sophie Attending Unavailable Jodie Hills Referring Unavailable Jodie Hills Attending Unavailable [facility] Referring Unavailable [facility] Primary [facility] Attending Unavailable Mk CHIP PERSON, Ramya Attending Unavailable Mk CHIP PERSON, Ramya Referring Unavailable [facility] Primary Care Unavailable Tyrell Mo Attending Unavailable [facility] Primary Care Unavailable [facility] Referring Unavailable Efe Moss Attending Unavailable [facility] Primary Care Unavailable Jodie Hills Referring Unavailable Jodie Hills Consulting Unavailable [facility] Primary Care Unavailable Geneva Meneses Attending Unavailable [facility] Primary Care Unavailable Luis Manuel Pate Admitting Unavailable Luis Manuel Pate Attending Unavailable Shree Bernabe Consulting Unavailable Luis Manuel Pate Consulting Unavailable Luis Manuel Pate Referring Unavailable Shree Bernabe Attending Unavailable [facility] Referring Unavailable Efe Pryor Attending Unavailable [facility] Primary Care Unavailable Allergies Allergy Classification Reported Allergen(s) Allergy Type Date of Onset Reaction(s) Facility (20 sources) HYDROmorphone; Translations: [HYDROMORPHONE] Drug Allergy 1 GI Upset, Vomiting [facility] Work Phone: (20 sources) Latex; Translations: [LATEX] Drug Allergy 9 Hives [facility] Work Phone: (20 sources) Seasonal allergy; Translations: [SEASONAL ALLERGIES] Allergy to substance 1 Other: See Comments [facility] (1 source) HYDROmorphone Drug Allergy [facility] Repository (1 source) HYDROmorphone Drug Allergy 5 [facility] Repository (1 source) Latex Drug allergy (disorder) 5 [facility] Repository Medications Current Medications Medication Drug Class(es) Dates Sig (Normalized) Sig (Original) acetaminophen 325 mg / HYDROcodone bitartrate 5 mg oral tablet (20 sources) Opioid Agonist Start: 11-08-2024 Hydrocodone-Acetam inophen 5-325 mg tablet Active 1 {tbl} PO 3 TIMES DAILY NEEDED as needed for pain November 08, 2024 12:00am Start: 06-15-2024 End: 08-13-2024 Hydrocodone-Acetaminophen 5- 325 mg tablet Discontinued 1 {tbl} PO EVERY 4 HOURS NEEDED as needed for Pain 10 2 June 15, 2024 August 13, 2024 10:40am Start: 04-16-2021 End: 07-12-2021 Hydrocodone-Acetaminophen 1 TABLET tablet Discontinued 1 {tbl} PO EVERY 4 HOURS NEEDED as needed for Pain 15 3 June 15, 2021 July 12, 2021 12:42pm Start: 04-16-2021 End: 07-12-2021 take 1 tablet by mouth every four hours as needed Hydrocodone-Acetaminophen Discontinued 1 TABLET PO EVERY 4 HOURS NEEDED 15 3 June 15, 2021 July 12, 2021 12:42pm Start: 08-27-2020 End: 08-30-2020 Hydrocodone-Acetaminophen 1 TABLET tablet Discontinued 1 {tbl} PO EVERY 6 HOURS NEEDED as needed for Pain 10 3 August 27, 2020 August 29, 2020 1:00am August 30, 2020 1:04am Start: 08-27-2020 End: 08-30-2020 take 1 tablet by mouth every six hours as needed Hydrocodone-Acetaminophen Discontinued 1 TABLET PO EVERY 6 HOURS NEEDED 10 August 27, 2020 August 30, 2020 1:04am Start: 10-15-2019 End: 10-18-2019 Hydrocodone-Acetaminophen 1 TABLET tablet Discontinued 1 {tbl} PO EVERY 6 HOURS NEEDED as needed for Pain 10 October 15, 2019 October 17, 2019 12:00am October 18, 2019 12:02am Start: 10-15-2019 End: 10-18-2019 take 1 tablet by mouth every six hours as needed Hydrocodone-Acetaminophen Discontinued 1 TABLET PO EVERY 6 HOURS NEEDED 10 October 15, 2019 October 18, 2019 12:02am Start: 05-10-2019 End: 05-16-2019 Hydrocodone-Acetaminophen 1 TABLET tablet Discontinued 1 {tbl} PO EVERY 6 HOURS NEEDED as needed for Pain 6 2 May 10, 2019 May 11, 2019 1:00am May 16, 2019 1:08am Start: 05-10-2019 End: 05-16-2019 take 1 tablet by mouth every six hours as needed Hydrocodone-Acetaminophen Discontinued 1 TABLET PO EVERY 6 HOURS NEEDED 6 2 May 10, 2019 May 16, 2019 1:08am [id number] 200 actuat albuterol 0.09 mg/actuat metered dose inhaler (20 sources) beta2-Adrenergic Agonist Start: 07-17-2023 take 2 puff(s) by inhalation every four hours as needed for wheezing albuterol HFA (PROVENTIL HFA, VENTOLIN HFA) 90 mcg/actuation inhaler Indications: Asthma with acute exacerbation, unspecified asthma severity, unspecified whether persistent (HCC) Inhale 2 Puffs as instructed every 4 hours as needed for wheezing/shortness of breath. 1 Each 07/17/2023 Active Start: 07-05-2018 End: 02-01-2023 take 2 puff(s) by inhalation every four hours as needed for wheezing albuterol HFA (PROVENTIL HFA, VENTOLIN HFA) 90 mcg/actuation inhaler Inhale 2 Puffs as instructed every 4 hours as needed for Wheezing/Shortness of Breath. 1 Inhaler 11 07/05/2018 10/01/2021 Discontinued Comment on above: Inhale 2 Puffs as in structed every 4 hours as needed for Wheezing/Shortness of Breath. atorvastatin 10 mg oral tablet (20 sources) HMG-CoA Reductase Inhibitor Start : 02-26 End: 08-27 take 1 tablet by mouth once daily for hyperlipidemia atorvastatin (LIPITOR) 10 mg tablet Indications: Hypercholesteremia TAKE 1 TABLET BY MOUTH ONCE DAILY. FOR CHOLESTEROL. 90 tablet 08/28/2023 Active Comment on above: Take 1 tablet by santino once daily. For cholesterol. benzonatate 200 mg oral capsule (11 sources) Non-narcotic Antitussive Start : 08-10 End: 10-08 take 1 capsule by mouth every eight hours as needed Benzonatate 200 mg capsule Take 1 capsule by mouth three times a day as needed for cough. 90 capsule 1 08/10/2023 10/09/2023 Active Start: 04-25-2023 take 2 capsules by m outh every eight hours as needed benzonatate (TESSALON PERLES) 100 mg capsule Take 2 capsules by mouth three times a day as needed. 30 capsule 0 04/25/2023 Active Start: 10-01-2021 End: 10-16-2021 take 1 capsule by mouth every eight hours as needed for cough and cough benzonatate (TESSALON PERLE) 100 mg capsule Indications: Cough Take 1 capsule by mouth every 8 hours as needed for cough for up to 15 days. 30 capsule 0 10/01/2021 10/16/2021 Active Comment on above: Take 1 capsule by mo ut every 8 hours as needed for cough for up to 15 days. Take 2 capsules by m out three times a day as needed. Take 1 capsule by mo ut three times a day as needed for cough. COMPOUNDED PRESCRIPTION (20 sources) Start: 12-11-2018 COMPOUNDED PRESCRIPTION Indications: Controlled type 2 diabetes mellitus with diabetic neuropathy, without long-term current use of insulin ([facility]) Diabetic Shoes--fitted with inserts for flat feet, 1 pair Diagnosis: (M21.41, M21.42) Pes planus of both feet ; (E11.40) Controlled type 2 diabetes mellitus with diabetic neuropathy, without long-term current use of insulin ([facility]) 1 Each 12/11/2018 Active Start: 12-11-2018 COMPOUNDED PRE SCRIPTION Indications: Controlled type 2 diabetes mellitus with diabetic neuropathy, without long-term current use of insulin ([facility]) Diabetic Shoes--fitted with inserts for flat feet, 1 pair Diagnosis: (M21.41, M21.42) Pes planus of both feet ; (E11.40) Controlled type 2 diabetes mellitus with diabetic neuropathy, without long-term current use of insulin ([facility]) 1 Each 0 12/11/2018 Active Comment on above: Diabetic Shoes--fitt ed with inserts for flat feet, 1 pair Diagnosis: (M21.41, M21.42) Pes planus of both feet ; (E11.40) Controlled type 2 diabetes mellitus with diabetic neuropathy, without long-term current use of insulin ([facility]) docusate sodium 100 mg oral capsule (4 sources) Start: 11-09-19 take 1 capsule by mouth twice daily as needed Docusate Sodium 100 mg capsule Active 100 mg PO TWICE DAILY NEEDED November 08, 2024 12:00am 0.5 ml dulaglutide 3 mg/ml auto-injector (20 sources) GLP-1 Receptor Agonist Start: 08-15-19 dulaglutide (TRULICITY) 0.75 mg/0.5 mL pen injector Indications: Type 2 diabetes mellitus with diabetic neuropathy, with long-term current use of insulin (HCC) , Controlled type 2 diabetes mellitus with diabetic neuropathy, without long-term current use of insulin (HCC) Inject 0.75 mg subcutaneously one time a week. 2 mL 5 08/15/2023 Active Start: 08-05-2023 End: 02-06-2024 dulaglutide (TRULICITY) 0.75 mg/0.5 mL pen injector Indications: Type 2 diabetes mellitus with diabetic neuropathy, with long-term current use of insulin (HCC) , Controlled type 2 diabetes mellitus with diabetic neuropathy, without long-term current use of insulin ([facility]) Inject 1.5 mg subcutaneously one time a week. 12 mL 1 08/15/2023 08/15/2023 Discontinued Start: 08-05-2023 End: 09-10-2024 Dulaglutide (Trulicity) 0.75 mg/0.5 mL pen injector Discontinued 1.5 mg SC EVERY WEEK 2 August 05, 2023 1:00am September 10, 2024 10:09am Start: 07-07-2023 End: 08-28-2023 inject 1.5 mg by subcutaneous injection every week dulaglutide (TRULICITY) 1.5 mg/0.5 mL pen injector INJECT 1.5 MG SUBCUTANEOUSLY ONE TIME A WEEK. 2 mL 5 08/28/2023 Active Start: 12-28-2022 End: 04-06-2023 inject 1.5 mg by subcutaneous injection every week dulaglutide (TRULICITY) 1.5 mg/0.5 mL pen injector Inject 1.5 mg subcutaneously one time a week. 2 mL 3 04/06/2023 Active Start: 12-14-2022 End: 12-28-2022 inject 0.75 mg by subcutaneous injection every week dulaglutide (TRULICITY) 0.75 mg/0.5 mL pen injector Inject 0.75 mg subcutaneously one time a week. 2 mL 1 12/14/2022 12/28/2022 Discontinued Comment on above: Inject 0.75 mg subcu taneously one time a week. Inject 1.5 mg subcut aneously one time a week. flash glucose scanning reader (FREESTYLE JALIL 14 DAY READER) [facility] [place] (20 sources) Start: 09-14-2018 flash glucose scanning reader (FREESTYLE JALIL 14 DAY READER) misc 1 Device once daily. 1 Each 09/14/2018 Active Start: 09-14-2018 flash glucose scanning reader (FREESTYLE JALIL 14 DAY READER) misc 1 Device once daily. 1 Each 0 09/14/2018 Active Comment on above: 1 Device once daily. flash glucose sensor (FREESTYLE JALIL 14 DAY SENSOR) kit (20 sources) Start: 03-15-2023 flash glucose sensor (FREESTYLE JALIL 14 DAY SENSOR) kit Apply one sensor to the back of the upper arm. Remove sensor after [address] new sensor on alternate arm. 2 Kit 11 03/15/2023 Active Start: 03-01-2023 flash glucose sensor (FREESTYLE JALIL 14 DAY SENSOR) kit Apply one sensor to the back of the upper arm. Remove sensor after [address] new sensor on alternate arm. Fill Rx today 03-01-23. Patient is out of sensors. 1 Kit 03/01/2023 Active Start: 03-01-2023 flash glucose sensor (FREESTYLE JALIL 14 DAY SENSOR) kit Apply one sensor to the back of the upper arm. Remove sensor after [address] new sensor on alternate arm. Fill Rx today 03-01-23. Patient is out of sensors. 1 Kit 0 03/01/2023 Active Start: 09-16-2022 flash glucose sensor (FREESTYLE JALIL 14 DAY SENSOR) kit Apply one sensor to the back of the upper arm. Remove sensor after [address] new sensor on alternate arm. 2 Kit 11 09/16/2022 Active Start: 12-07-2021 End: 09-16-2022 flash glucose sensor (FREEST YLE JALIL 14 DAY SENSOR) kit Apply one sensor to the back of the upper arm. Remove sensor after [address] new sensor on alternate arm. 2 Kit 11 12/07/2021 09/16/2022 Discontinued Start: 12-07-2021 flash glucose sensor (FREESTYLE JALIL 14 DAY SENSOR) kit Apply one sensor to the back of the upper arm. Remove sensor after [address] new sensor on alternate arm. 2 Kit 11 12/07/2021 Active Start: 05-31-2021 End: 12-07-2021 flash glucose sensor (FREEST YLE JALIL 14 DAY SENSOR) kit Apply one sensor to the back of the upper arm. Remove sensor after [address] new sensor on alternate arm. 2 Kit 5 05/31/2021 12/07/2021 Discontinued Start: 05-31-2021 flash glucose sensor (FREESTYLE JALIL 14 DAY SENSOR) kit Apply one sensor to the back of the upper arm. Remove sensor after [address] new sensor on alternate arm. 2 Kit 5 05/31/2021 Active Start: 07-15-2020 End: 12-25-2020 flash glucose sensor (FREEST YLE JALIL 14 DAY SENSOR) kit Apply one sensor to the back of the upper arm. Remove sensor after [address] new sensor on alternate arm. 2 Kit 5 07/15/2020 12/25/2020 Discontinued Comment on above: Apply one sensor to the back of the upper arm. Remove sensor after [address] new sensor on alternate arm. Apply one sensor to the back of the upper arm. Remove sensor after [address] new sensor on alternate arm. Fill Rx today 03-01-23. Patient is out of sensors. fluticasone propionate 0.05 mg/actuat metered dose nasal spray (20 sources) Corticosteroid Start: 07-05-19 End: 09-17-19 take 2 spray(s) nasal route once daily at bedtime fluticasone (FLONASE) 50 mcg/actuation nasal spray Indications: Sinusitis, maxillary, chronic Use 2 Sprays in each nostril daily at bedtime. 1 Each 09/16/2022 Active Comment on above: Use 2 Sprays in each nostril daily at bedtime. 3 ml insulin glargine 100 unt/ml pen injector (20 sources) Insulin Analog Start: 04-06-20 insulin glargine (LANTUS SOLOSTAR U-100 INSULIN) 100 unit/mL (3 mL) Indications: Controlled type 2 diabetes mellitus with diabetic neuropathy, without long-term current use of insulin (HCC) Inject 18 Units subcutaneously every morning. 30 mL 5 04/06/2023 Active Start: 04-06-2023 insulin glargi ne (LANTUS SOLOSTAR U-100 INSULIN) 100 unit/mL (3 mL) Indications: Controlled type 2 diabetes mellitus with diabetic neuropathy, without long-term current use of insulin (HCC) Inject 18 Units subcutaneously every morning. 30 mL 5 04/06/2023 Active Start: 12-27-2022 End: 04-06-2023 insulin glargine (LANTUS LORENE OSTAR U-100 INSULIN) 100 unit/mL (3 mL) Indications: Controlled type 2 diabetes mellitus with diabetic neuropathy, without long-term current use of insulin (HCC) Inject 26 Units subcutaneously every morning. 30 mL 5 12/27/2022 04/06/2023 Discontinued (Adjust Sig - Block E-Cancel) Start: 12-14-2022 insulin glargi ne (LANTUS SOLOSTAR U-100 INSULIN) 100 unit/mL (3 mL) Indications: Controlled type 2 diabetes mellitus with diabetic neuropathy, without long-term current use of insulin (HCC) Inject 26 Units subcutaneously every morning. 0 12/14/2022 Active Start: 12-12-2022 End: 12-14-2022 insulin glargine (LANTUS LORENE OSTAR U-100 INSULIN) 100 unit/mL (3 mL) Indications: Controlled type 2 diabetes mellitus with diabetic neuropathy, without long-term current use of insulin (HCC) Inject 18 Units subcutaneously every morning. 5 Each 5 12/12/2022 12/14/2022 Discontinued Start: 02-01-2022 End: 12-12-2022 insulin glargine (LANTUS LORENE OSTAR U-100 INSULIN) 100 unit/mL (3 mL) Indications: Controlled type 2 diabetes mellitus with diabetic neuropathy, without long-term current use of insulin (HCC) Inject 16 Units subcutaneously every morning. 5 Pen 5 02/01/2022 12/12/2022 Discontinued Start: 02-01-2022 insulin glargi ne (LANTUS SOLOSTAR U-100 INSULIN) 100 unit/mL (3 mL) Indications: Controlled type 2 diabetes mellitus with diabetic neuropathy, without long-term current use of insulin (HCC) Inject 16 Units subcutaneously every morning. 5 Pen 5 02/01/2022 Active Start: 06-04-2020 End: 02-01-2022 insulin glargine (LANTUS LORENE OSTAR U-100 INSULIN) 100 unit/mL (3 mL) Inject 14 Units subcutaneously every morning. 5 Pen 5 11/09/2020 01/24/2022 Discontinued Start: 05-10-2019 inject 18 [IU] by johnson bcutaneous injection at breakfast Insulin Glargine 100 UNIT/ML insulin pen Active 18 U SQ WITH BREAKFAST May 10, 2019 1:00am Start: 05-10-2019 inject 14 [IU] by johnson bcutaneous injection at breakfast Insulin Glargine Active 14 UNIT SQ WITH BREAKFAST May 10, 2019 1:00am Start: 05-10-2019 inject 14 [IU] by johnson bcutaneous injection at breakfast Insulin Glargine Active 14 UNIT SQ WITH BREAKFAST May 10, 2019 1:00am Start: 09-05-2018 End: 09-05-2018 inject 16 [IU] by subcutaneous injection at breakfast Insulin Glargine (Lantus U-100 Insulin) 100 UNIT/ML Ml Discontinued 16 U SQ WITH BREAKFAST September 05, 2018 4:19am September 05, 2018 3:12pm Start: 03-24-2018 End: 09-05-2018 inject 20 [IU] by subcutaneous injection once daily Insulin Glargine (Lantus U-100 Insulin) 100 UNIT/ML Ml Discontinued 20 U SQ DAILY 0 March 24, 2018 10:06am September 05, 2018 4:20am Start: 02-27-2016 End: 03-24-2018 inject 17 [IU] by subcutaneous injection once daily Insulin Glargine (Lantus) 100 UNIT/ML Ml Discontinued 17 U SQ DAILY February 27, 2016 12:00am March 24, 2018 10:06am Comment on above: Inject 14 Units subc utaneously every morning. Inject 16 Units subc utaneously every morning. Inject 26 Units subc utaneously every morning. Inject 18 Units subc utaneously every morning. 200 actuat ipratropium bromide 0.017 mg/actuat metered dose inhaler (12 sources) Anticholinergic Start: 01-21-2021 Ipratropium Guthrie (Atrovent Hfa) 17 mcg/actuation Hfa Aerosol Inhaler Active 1 NMA INHALATION DAILY January 21, 2021 12:00am Start: 01-21-2021 Ipratropium Br omide (Atrovent Hfa) 17 mcg/actuation Hfa Aerosol Inhaler Active 1 INH INHALATION DAILY January 21, 2021 12:00am Randal,Saliva-B.Bif-S.The rm 175 mg capsule (4 sources) Start: 11-08-2024 take 1 capsule by mouth every twenty-four hours L.Acidoph,Saliva-B.Bif-S.Therm 175 mg capsule Active 1 NMA PO Q24H November 08, 2024 12:00am levothyroxine sodium 0.025 m g oral tablet (20 sources) l - T h y r o x i n e Start: 02-27-2016 End: 05-29-2023 take 1 tablet by mouth once daily for thyroid dysfunction levothyroxine (SYNTHROID) 25 mcg tablet Indications: Acquired hypothyroidism Take 1 tablet by mouth once daily. Take on empty stomach. For thyroid. 90 tablet 3 03/15/2023 Active Comment on above: Take 1 tablet by santino th once daily. Take on empty stomach. For thyroid. Lidocaine (7 sources) A n t i a r r h y t h m i c , A m i d e L o c a l A n e s t h e t i c Start: 08-13-2024 Lidocaine (Salonpas (Lidocaine)) 4 % adhesive patch,medicated Active 1 NMA TOPICAL daily as needed for pain August 13, 2024 1:00am magnesium oxide 500 mg oral tablet (20 sources) Start: 11-08-2024 take 1 tablet by mouth once daily Magnesium Oxide 500 mg magnesium tablet Active 500 mg PO DAILY November 08, 2024 12:00am Start: 07-07-2023 End: 08-10-2023 take 1 tablet by mouth twice daily Magnesium Oxide 500 mg tab Indications: Hypomagnesemia Take 1 tablet by mouth two times a day. 180 tablet 3 08/10/2023 Active Start: 08-06-2022 End: 04-10-2023 take 1 tablet by mouth once daily Magnesium Oxide 500 mg tab Take 1 tablet by mouth once daily. 30 tablet 5 04/10/2023 Active Comment on above: Take 1 tablet by santino th once daily. Take 1 tablet by santino th two times a day. 24 hr metFORMIN hydrochloride 500 mg extended release oral tablet (20 sources) Biguanide Start: 3 End: 4 take 1 tablet by mouth twice daily before mealtime metFORMIN ER (GLUCOPHAGE XR) 500 mg 24 hr tablet Indications: Controlled type 2 diabetes mellitus with diabetic neuropathy, without long-term current use of insulin (HCC) Take 1 tablet by mouth twice daily before meals. 180 tablet 3 12/14/2022 Active Start: 12-14-2020 End: 01-24-2022 take 2 tablets by mouth twice daily before mealtime metFORMIN ER (GLUCOPHAGE XR) 500 mg 24 hr tablet Take 2 tablets by mouth twice daily before meals. 120 tablet 11 12/14/2020 01/24/2022 Discontinued Start: 03-23-2018 End: 10-02-2020 take 1 tablet by mouth twice daily Metformin 1,000 MG tablet Active 1000 mg PO TWICE A DAY March 23, 2018 12:00am Comment on above: Take 2 tablets by mo uth twice daily before meals. Take 1 tablet by santino th twice daily before meals. pregabalin 150 mg oral capsule (20 sources) Start: 01-03-2024 take 1 capsule by mouth twice daily Pregabalin 150 mg capsule Active 150 mg PO TWICE A DAY January 03, 2024 12:00am Start: 01-09-2023 End: 11-08-2023 pregabalin (LYRICA) 150 mg c apsule Indications: Type 2 diabetes mellitus with diabetic neuropathy, with long-term current use of insulin ([facility]) , Controlled type 2 diabetes mellitus with diabetic neuropathy, without long-term current use of insulin ([facility]) Take 1 capsule by mouth two times a day for 90 days. 60 capsule 2 08/10/2023 Active Start: 12-08-2022 End: 03-08-2023 take 1 capsule by mouth twice daily pregabalin (LYRICA) 100 mg capsule Indications: Type 2 diabetes mellitus with diabetic neuropathy, with long-term current use of insulin ([facility]) Take 1 capsule by mouth twice daily for 90 days. 60 capsule 2 12/08/2022 03/08/2023 Active Start: 11-08-2022 End: 12-08-2022 take 1 capsule by mouth twice daily pregabalin (LYRICA) 75 mg capsule Indications: Type 2 diabetes mellitus with diabetic neuropathy, with long-term current use of insulin ([facility]) Take 1 capsule by mouth twice daily for 90 days. 60 capsule 2 11/08/2022 12/08/2022 Discontinued Start: 06-24-2022 End: 10-29-2022 take 1 capsule by mouth twice daily pregabalin (LYRICA) 75 mg capsule Indications: Type 2 diabetes mellitus with diabetic neuropathy, with long-term current use of insulin ([facility]) Take 1 capsule by mouth twice daily for 60 days. 60 capsule 1 08/30/2022 10/29/2022 Active Comment on above: Take 1 capsule by mo ut twice daily for 60 days. Take 1 capsule by mo [facility] twice daily for 90 days. Take 1 capsule by mo ut two times a day for 90 days. Semaglutide (9 sources) Start: 11-20-2024 Semaglutide (Ozempic) 0.25 mg or 0.5 mg (2 mg/3 mL) pen injector Active 0.25 mg SC EVERY WEEK November 20, 2024 10:03am Start: 09-10-2024 End: 11-20-2024 Semaglutide (Ozempic) 0.25 m g or 0.5 mg (2 mg/3 mL) pen injector Discontinued 0.5 mg SC EVERY WEEK September 10, 2024 12:00am November 20, 2024 10:03am Start: 09-10-2024 Semaglutide (O zempic) 0.25 mg or 0.5 mg (2 mg/3 mL) pen injector Active 0.5 mg SC EVERY WEEK September 10, 2024 12:00am Start: 09-10-2024 Semaglutide (O zempic) 0.25 mg or 0.5 mg (2 mg/3 mL) pen injector Active mg SC September 10, 2024 12:00am thioctic acid 600 mg oral capsule (20 sources) Start: 01-21-2021 End: 08-28-2023 take 1 capsule by mouth once daily Alpha Lipoic Acid 600 mg cap take 1 capsule by mouth once daily 30 capsule 11 08/28/2023 Active Start: 02-25-2020 End: 09-10-2020 take 1 capsule by mouth once daily Alpha Lipoic Acid 600 mg cap Take 1 capsule by mouth once daily. 30 capsule 5 02/25/2020 09/10/2020 Discontinued Comment on above: Take 1 capsule by mo [facility] once daily. take 1 capsule by mo [facility] once daily topiramate 50 mg oral tablet (20 sources) Start: 01-03-2024 take 1 tablet by mouth every twelve hours Topiramate 50 mg tablet Active 50 mg PO Q12H January 03, 2024 12:00am Start: 08-10-2023 End: 11-08-2024 take 1 tablet by mouth once daily at bedtime for headache topiramate (TOPAMAX) 25 mg tablet Indications: New daily persistent headache Take 1 tablet by mouth daily at bedtime. for headache 30 tablet 11 08/10/2023 Active Comment on above: Take 1 tablet by santino th daily at bedtime. for headache traZODone hydrochloride 300 mg oral tablet (20 sources) Serotonin Reuptake Inhibitor Start: 01-22-20 21 take 1 tablet by mouth once daily at bedtime traZODone HCl 300 mg tablet Indications: Schizoaffective disorder, bipolar type (HCC) Take 1 tablet by mouth daily at bedtime. 01/21/2021 Active Start: 12-19-2019 End: 01-21-2021 take 1 tablet by mouth at bedtime as needed traZODone (DESYREL) 150 mg tablet TAKE 1 2 TABLETS BY MOUTH AT BEDTIME NEEDED 12/19/2019 01/21/2021 Discontinued (Duplicate Entry) Comment on above: Take 1 tablet by santino th daily at bedtime. trospium chloride 20 mg oral tablet (7 sources) Cholinergic Muscarinic Antagonist Start: 4 take 1 tablet by mouth at bedtime Trospium 20 mg tablet Active 20 mg PO AT BEDTIME January 03, 2024 12:00am vitamin b12 1 mg oral tablet (20 sources) Vitamin B12 Start: 2 End: 3 take 1 tablet by mouth once daily Cyanocobalamin (Vitamin B-12) 1,000 mcg tablet Active 1000 ug PO DAILY November 08, 2024 12:00am Start: 05-21-2020 End: 12-29-2020 take 1 tablet by mouth once daily cyanocobalamin (VITAMIN B-12) 1,000 mcg tab Take 1 tablet by mouth once daily. 30 tablet 5 05/21/2020 12/29/2020 Discontinued Comment on above: Take 1 tablet by santino th once daily. Vitamin Y27-Gvpwp Acid (5 sources) Start: 01-21-2021 take 1 tablet by mouth once daily Vitamin O65-Carrp Acid Active 1 TABLET PO DAILY January 20, 2021 11:00pm Start: 01-21-2021 take 1 tablet by santino th once daily Vitamin R85-Myydw Acid Active 1 TABLET PO DAILY January 21, 2021 12:00am vortioxetine 10 mg oral tablet (20 sources) Start: 08-18-2022 take 1 tablet by mouth once daily TRINTELLIX 10 mg tablet Take 1 tablet by mouth once daily. 08/18/2022 Active Comment on above: Take 1 tablet by [facility] once daily. Completed/Discontinued Medications Medication Drug Class(es) Dates Sig (Normalized) Sig (Original) acetaminophen 500 mg oral tablet (17 sources) Start: 03-09-2021 End: 12-08-2022 take 2 tablets by mouth every six hours as needed acetaminophen (TYLENOL EXTRA STRENGTH) 500 mg tablet Take 2 tablets by mouth every 6 hours as needed for pain. 60 tablet 03/09/2021 12/08/2022 Discontinued Comment on above: Take 2 tablets by mo [facility] every 6 hours as needed for pain. acetaminophen 325 mg / oxyCODONE hydrochloride 5 mg oral tablet (12 sources) Opioid Agonist Start: 11-05-2019 End: 11-08-2019 Oxycodone-Acetamino phen 1 TABLET tablet Discontinued 1 {tbl} PO EVERY 6 HOURS NEEDED as needed for Pain 03 21November 05, 2019 November 07, 2019 12:00am November 08, 2019 12:02am Start: 11-05-2019 End: 11-08-2019 take 1 tablet by mouth every six hours as needed Oxycodone-Acetaminophen Discontinued 1 TABLET PO EVERY 6 HOURS NEEDED 03 21November 05, 2019 November 08, 2019 12:02am Albuterol Sulfate (Proair Hf a) 1 PUFF inhaler (12 sources) Start: 03-23-2018 End: 11-08-2024 Albuterol Sulfate (Proair Hf a) 1 PUFF inhaler Discontinued 2 NMA INHALATION EVERY 4 HOURS NEEDED as needed for shortness of breath March 23, 2018 12:00am November 08, 2024 9:03pm Start: 03-23-2018 Albuterol Sulf ate (Proair Hfa) 1 PUFF inhaler Active 2 NMA INHALATION EVERY 4 HOURS NEEDED as needed for shortness of breath March 23, 2018 12:00am Start: 03-23-2018 take 1 puff(s) by in halation every four hours as needed Albuterol Sulfate (Proair Hfa) 1 PUFF inhaler Active 2 PUFF INHALATION EVERY 4 HOURS NEEDED March 22, 2018 11:00pm Start: 03-23-2018 take 1 puff(s) by in halation every four hours as needed Albuterol Sulfate (Proair Hfa) 1 PUFF inhaler Active 2 PUFF INHALATION EVERY 4 HOURS NEEDED March 23, 2018 12:00am Blood-Glucose Meter monitoring kit (1 source) Start: 03-02-2023 End: 03-02-2023 Blood-Glucose Meter monitoring kit Indications: Controlled type 2 diabetes with neuropathy (HCC) Glucose Meter of Choice - Kit - Dx: Type 2 DM - Controlled E11.9 1 Each 0 03/02/2023 03/02/2023 Comment on above: Glucose Meter of Cho ice - Kit - Dx: Type 2 DM - Controlled E11.9 busPIRone hydrochloride 10 mg oral tablet (20 sources) Start: 12-19-2019 End: 01-02-2024 take 1 tablet by mouth twice daily Buspirone 10 mg tablet Discontinued 10 mg PO TWICE A DAY January 21, 2021 12:00am January 02, 2024 7:17pm Comment on above: Take 10 mg by mouth twice daily. 12 hr carBAMazepine 300 mg extended release oral capsule (12 sources) Mood Stabilizer Start: 01-21-2021 End: 01-03-2024 take 1 capsule by mouth every twelve hours at bedtime Carbamazepine 300 mg Capsule, Er Multiphase 12 Hr Discontinued 600 mg PO AT BEDTIME January 21, 2021 12:00am January 03, 2024 6:54am clindamycin 10 mg/ml topical lotion (12 sources) Lincosamide Antibacterial Start: 01-05-2020 End: 01-26-2020 Clindamycin Phosphate 60 ML lotion Discontinued 1 mL TP TWICE A DAY 1 January 05, 2020 12:00am January 25, 2020 12:00am January 26, 2020 12:03am cyclobenzaprine hydrochloride 10 mg oral tablet (20 sources) Muscle Relaxant Start: 06-15-2021 End: 01-03-2024 take 1 tablet by mouth three times daily as needed for muscle spasms Cyclobenzaprine 10 MG tablet Discontinued 10 mg PO THREE TIMES A DAY as needed for Muscle Spasm June 15, 2021 1:00am January 03, 2024 6:58am Comment on above: Take 1 tablet by [facility] three times daily as needed for muscle spasm. diazePAM 5 mg oral tablet (7 sources) Benzodiazepine Start: 09-02-2024 End: 11-08-2024 take 1 tablet by mouth every eight hours as needed for muscle spasms Diazepam 5 mg tablet Discontinued 5 mg PO EVERY 8 HOURS as needed for Muscle Spasm September 02, 2024 12:00am November 08, 2024 9:04pm dicyclomine hydrochloride 10 mg oral capsule (7 sources) Anticholinergic Start: 03-28-2024 End: 08-13-2024 take 1 capsule by mouth three times daily Dicyclomine 10 mg capsule Discontinued 10 mg PO THREE TIMES A DAY March 28, 2024 12:00am August 13, 2024 10:40am docusate sodium 50 mg / sennosides, long-term 8.6 mg oral tablet (16 sources) Start: 03-09-2021 End: 09-16-2022 take 1 tablet by mouth once daily senna-docusate (SENNA-S) 8.6-50 mg per tablet Take 1 tablet by mouth once daily. 30 tablet 03/09/2021 09/16/2022 Discontinued Comment on above: Take 1 tablet by santino th once daily. famotidine 20 mg oral tablet (1 source) Histamine-2 Receptor Antagonist Start: 08-03-2020 End: 11-02-2020 take 1 tablet by mouth every twelve hours as needed famotidine (PEPCID) 20 mg tablet Take 1 tablet by mouth twice daily as needed. For indigestion or heartburn or gas. 60 tablet 11 08/03/2020 11/02/2020 Discontinued glimepiride 2 mg oral tablet (12 sources) Sulfonylurea Start: 02-27-2016 End: 09-05-2018 take 1 tablet by mouth twice daily Glimepiride 2 MG tablet Discontinued 2 mg PO TWICE A DAY February 27, 2016 12:00am September 05, 2018 3:12pm ibuprofen 600 mg oral tablet (17 sources) Nonsteroidal Anti-inflammatory Drug Start: 03-09-2021 End: 12-08-2022 take 1 tablet by mouth every six hours as needed ibuprofen (MOTRIN) 600 mg tablet Take 1 tablet by mouth every 6 hours as needed for pain. 90 tablet 03/09/2021 12/08/2022 Discontinued Comment on above: Take 1 tablet by santino th every 6 hours as needed for pain. lamoTRIgine 150 mg oral tablet (20 sources) Mood Stabilizer, Anti-epileptic Agent Start: 01-21-2021 End: 04-06-2023 take 1 tablet by mouth once daily lamoTRIgine (LAMICTAL) 150 mg tablet Indications: Schizoaffective disorder, bipolar type (HCC) Take 150 mg by mouth once daily. 01/21/2021 04/06/2023 Discontinued Start: 01-21-2021 take 1 tablet by santino th twice daily lamoTRIgine (LAMICTAL) 150 mg tablet Indications: Schizoaffective disorder, bipolar type (HCC) Take 150 mg by mouth twice daily. Weaning off medication 0 01/21/2021 Active Start: 06-18-2019 End: 01-21-2021 take 1 tablet by mouth once daily lamoTRIgine (LAMICTAL) 100 mg tablet Take 1 tablet by mouth once daily. 06/18/2019 01/21/2021 Discontinued Start: 05-10-2019 End: 01-02-2024 Lamotrigine (Lamictal) 25 MG tablet Discontinued 150 mg PO DAILY May 10, 2019 1:00am January 02, 2024 7:18pm Comment on above: Take 1 tablet by santino th twice daily. Take 150 mg by mouth twice daily. Weaning off medication Take 150 mg by mouth once daily. loperamide hydrochloride 2 mg oral capsule (1 source) Opioid Agonist Start: 2019 End: 2020 take 1 capsule by mouth every six hours as needed loperamide (IMODIUM A-D) 2 mg cap(s) Take 1 capsule by mouth four times daily as needed. 30 capsule 04/29/2020 01/21/2021 Discontinued methylPREDNISolone 4 mg oral tablet (16 sources) Corticosteroid Start: 2024 End: 2024 Methylprednisolone 4 mg tablets,dose pack Discontinued mg PO October 02, 2024 12:00am November 08, 2024 9:04pm Start: 06-15-2021 End: 07-12-2021 take 1 tablet by mouth once daily Methylprednisolone (Medrol (Diony)) 4 mg tablets,dose pack Discontinued 4 mg PO DAILY June 15, 2021 1:00am July 12, 2021 12:40pm OLANZapine 15 mg oral tablet (17 sources) Atypical Antipsychotic Start: 01-21-2021 End: 09-16-2022 take 1 tablet by mouth once daily at bedtime OLANZapine (ZYPREXA) 15 mg tablet Indications: Schizoaffective disorder, bipolar type (HCC) Take 1 tablet by mouth daily at bedtime. 01/21/2021 09/16/2022 Discontinued (Discontinued by another Health Care Provider) Start: 05-10-2019 End: 11-02-2020 take 1 tablet by mouth once daily OLANZapine (ZYPREXA) 10 mg tablet Take 10 mg by mouth once daily. 05/10/2019 11/02/2020 Discontinued Comment on above: Take 1 tablet by santino th daily at bedtime. ondansetron 4 mg disintegrating oral tablet (20 sources) Serotonin-3 Receptor Antagonist Start: 03-28-20 End: 11-27-19 take 1 tablet by mouth every six hours as needed for nausea and vomiting Ondansetron 4 mg tablet,disintegratin g Discontinued 4 mg PO EVERY 6 HOURS as needed for nausea and vomiting July 22, 2024 1:00am August 13, 2024 10:41am Start: 01-10-2024 End: 08-13-2024 take 1 tablet by mouth every eight hours as needed for nausea Ondansetron 4 mg tablet,disintegrating Discontinued 4 mg PO EVERY 8 HOURS NEEDED as needed for Nausea January 10, 2024 12:00am August 13, 2024 10:41am Start: 06-03-2020 End: 01-21-2021 take 1 tablet by mouth every six hours as needed for nausea ondansetron orally disintegrating (ZOFRA N ODT) 4 mg disintegrating tablet Indications: Nausea and vomiting, intractability of vomiting not specified, unspecified vomiting type Take 1 tablet by mouth every 6 hours as needed for Nausea/Vomiting. 30 tablet 2 06/03/2020 01/21/2021 Discontinued OXcarbazepine 300 mg oral tablet (1 source) Anti-epileptic Agent Start: 12-19-2019 End: 01-21-2021 take 2 tablets by mouth once daily at bedtime OXcarbazepine (TRILEPTAL) 300 mg tablet Take 600 mg by mouth daily at bedtime. 12/19/2019 01/21/2021 Discontinued predniSONE 20 mg oral tablet (9 sources) Start: 06-15-2024 End: 08-13-2024 take 1 tablet by mouth twice daily Prednisone 20 mg tablet Discontinued 20 mg PO TWICE A DAY June 15, 2024 1:00am August 13, 2024 10:42am Start: 07-05-2023 predniSONE (DE LTASONE) 10 mg tablet Indications: New daily persistent headache Take 2 tabs po BID for 2 days then 1 tab po BID for 2 days then 1/2 tab po BID for 2 days then 1/2 tab daily for 2 days then stop 15 tablet 0 07/05/2023 Active Start: 04-25-2023 End: 04-30-2023 take 2 tablets by mouth once daily predniSONE (DELTASONE) 20 mg tablet Take 2 tablets by mouth once daily for 5 days. 10 tablet 0 04/25/2023 04/30/2023 Active Comment on above: Take 2 tablets by mo uth once daily for 5 days. Take 2 tabs po BID f or 2 days then 1 tab po BID for 2 days then 1/2 tab po BID for 2 days then 1/2 tab daily for 2 days then stop Vitamin W48-Erkvk Acid 1-0.8 mg Tablet (7 sources) Start: 01-21-2021 End: 11-08-2024 Vitamin M90-Vyrfu Acid 1-0.8 mg Tablet Discontinued 1 {tbl} PO DAILY January 21, 2021 12:00am November 08, 2024 9:07pm Start: 01-21-2021 Vitamin B12-Fo lic Acid 1-0.8 mg Tablet Active 1 {tbl} PO DAILY January 21, 2021 12:00am Problems Active Problems Problem Classification Problem Date Documented Da te Episodic/Chronic Abdominal pain (12 sources) Abdominal pain; Translations: [Unspecified abdominal pain] Onset: 11-14-2024 04-05-2024 Episodic Asthma (20 sources) Asthma; Translations: [Unspecified asthma, uncomplicated] Onset: 03-31-2019 01-21-2021 Chronic Cancer of uterus (20 sources) Adenocarcinoma of endometrium; Translations: [Malignant neoplasm of endometrium] Onset: 02-10-2021 02-10-2021 Chronic Cardiac dysrhythmias (1 source) Tachycardia; Translations: [Tachycardia, unspecified] Episodic Complications of surgical procedures or medical care (4 sources) Drug therapy finding; Translations: [Unspecified adverse effect of drug or medicament, initial encounter] 11-16-2024 Episodic Diabetes mellitus with complications (20 sources) Other specified diabetes mellitus with unspecified complications; Translations: [Type 2 diabetes mellitus] Onset: 12-26-2014 06-24-2018 Chronic Diabetes mellitus without complication (10 sources) Diabetes mellitus; Translations: [Type 2 diabetes mellitus without complications] Onset: 11-26-2024 01-03-2024 Chronic Diabetes mellitus without complication (20 sources) Hyperglycemia; Translations: [Hyperglycemia, unspecified] 08-23-2019 Episodic Disorders of lipid metabolism (16 sources) Hyperlipidemia, unspecified; Translations: [Dyslipidemia] Onset: 05-25-2017 08-31-2021 Chronic E Codes: Fall (11 sources) Falling injury; Translations: [Unspecified fall, initial encounter] 01-19-2023 Episodic Essential hypertension (12 sources) Hypertensive disorder; Translations: [Essential (primary) hypertension] 01-21-2021 Chronic Comment on above: PT REPORTS NO BP ISS UES EVER. NO MEDS PRESENTLY Headache; including migraine (9 sources) New daily persistent headache; Translations: [New daily persistent headache (NDPH)] 07-31-2023 Chronic Headache; including migraine (20 sources) Headache; Translations: [Persistent headaches] 08-13-2024 Episodic Comment on above: The patient's headac hes appear to be secondary to cervicalgia. They do not appear to be of the migraine type at this time. Headache; including migraine (2 sources) Headache; including migraine; Translations: [Headache with orthostatic component, not elsewhere classified] Onset: 08-09-2024 Immunizations and screening for infectious disease (1 source) Encounter for immunization; Translations: [Encounter for immunization] Onset: 09-12-2024 Episodic Miscellaneous mental health disorders (1 source) Primary insomnia; Translations: [Primary insomnia] 06-02-2023 Chronic Mood disorders (14 sources) Bipolar disorder, unspecified; Translations: [Bipolar disorder] Onset: 05-25-2017 11-15-2020 Chronic Mood disorders (2 sources) Major depressive disorder, single episode, unspecified; Translations: [Major depressive disorder, single episode, unspecified] Onset: 05-25-2017 Nonspecific chest pain (12 sources) Precordial pain; Translations: [Other chest pain] 09-05-2018 Episodic Nutritional deficiencies (2 sources) Vitamin D deficiency; Translations: [Vitamin D deficiency, unspecified] Chronic Other aftercare (12 sources) Wound ; Translations: [Encounter for other specified surgical aftercare] 03-19-2021 Episodic Other connective tissue disease (2 sources) Bursitis of right shoulder; Translations: [Adhesive capsulitis of right shoulder] 11-26-2024 Episodic Other connective tissue disease (2 sources) Adhesive capsulitis of right shoulder; Translations: [Adhesive capsulitis of right shoulder] Onset: 11-26-2024 Episodic Other endocrine disorders (12 sources) Hypoglycemia; Translations: [Hypoglycemia, unspecified] 05-17-2019 Chronic Other gastrointestinal disorders (4 sources) Diarrhea; Translations: [Diarrhea, unspecified] 11-16-2024 Episodic Other lower respiratory disease (3 sources) Cough; Translations: [Cough] Episodic Other nervous system disorders (12 sources) Neuropathy; Translations: [Polyneuropathy, unspecified] 11-29-2014 Chronic Other nervous system disorders (9 sources) Paresthesia of hand ; Translations: [Anesthesia of skin] 10-03-2024 Episodic Comment on above: This is a new findin g on today's exam 10/02/2024. Sensory changes involve the entire right hand (all fingers and palm) with extension up to the deltoid.There is extensive scarring noted on the right forearm from prior surgical debridement after being bit by a brown recluse spider. It is unclear if this sensory change is a radicular symptom, a carpal or cubital tunnel syndrome, or delayed nerve impairment from scar formation. An NCS/EMG test could further differentiate.She is prescribed pregabalin 150 mg twice daily for diabetic neuropathy. Other nervous system disorders (2 sources) Anesthesia of skin; Translations: [Anesthesia of skin] Onset: 11-16-2024 Episodic Other nervous system disorders (2 sources) Paresthesia of skin; Translations: [Paresthesia of skin] Onset: 11-16-2024 Episodic Other non-traumatic joint disorders (17 sources) Pain in wrist; Translations: [Pain in right wrist] 06-21-2024 Episodic Other non-traumatic joint disorders (10 sources) Pain in right shoulder; Translations: [Right shoulder pain] Onset: 11-26-2024 11-20-2024 Episodic Other nutritional; endocrine; and metabolic disorders (2 sources) Morbid (severe) obesity due to excess calories; Translations: [Morbid (severe) obesity due to excess calories] Onset: 05-25-2017 Chronic Other nutritional; endocrine; and metabolic disorders (20 sources) Body mass index 40+ - severely obese; Translations: [Morbid (severe) obesity due to excess calories] Onset: 03-29-2017 06-24-2018 Chronic Other nutritional; endocrine; and metabolic disorders (2 sources) Hypomagnesemia; Translations: [Hypomagnesemia] Chronic Other nutritional; endocrine; and metabolic disorders (2 sources) Severe obesity; Translations: [Morbid (severe) obesity due to excess calories] Chronic Other screening for suspected conditions (not mental disorders or infectious disease) (20 sources) Patient encounter status; Translations: [Encounter for screening mammogram for malignant neoplasm of breast] Onset: 01-17-2024 Episodic Other upper respiratory infections (1 source) Chronic maxillary sinusitis; Translations: [Chronic maxillary sinusitis] Chronic Other upper respiratory infections (1 source) Acute upper respiratory infection; Translations: [Acute upper respiratory infection, unspecified] 04-25-2023 Episodic Pneumonia (except that caused by tuberculosis or sexually transmitted disease) (12 sources) Community acquired pneumonia; Translations: [Pneumonia, unspecified organism] 09-05-2018 Episodic Residual codes; unclassified (20 sources) Sleep apnea; Translations: [Sleep apnea, unspecified] 03-08-2021 Chronic Residual codes; unclassified (2 sources) Obstructive sleep apnea syndrome; Translations: [Obstructive sleep apnea (adult) (pediatric)] 04-06-2023 Chronic Residual codes; unclassified (16 sources) Pain; Translations: [Pain, unspecified] 07-12-2021 Episodic Residual codes; unclassified (12 sources) H/O Spinal surgery; Translations: [Other specified postprocedural states] 11-15-2020 Episodic Residual codes; unclassified (1 source) Other specified health status; Translations: [Other specified conditions influencing health status] 06-02-2023 Episodic Residual codes; unclassified (1 source) Tobacco user 09-12-2024 Episodic Residual codes; unclassified (1 source) Pain, unspecified; Translations: [Pain, unspecified] Onset: 09-10-2024 Episodic Schizophrenia and other psychotic disorders (20 sources) Schizoaffective disorder, bipolar type; Translations: [Schizoaffective disorder, bipolar type] Onset: 02-13-2012 Resolved: 01-21-2021 04-14-2015 Chronic Skin and subcutaneous tissue infections (20 sources) Cellulitis of umbilicus ; Translations: [Cellulitis of umbilicus] 12-18-2019 Episodic Spondylosis; intervertebral disc disorders; other back problems (20 sources) Dorsalgia, unspecified; Translations: [Chronic low back pain] Onset: 03-17-2016 03-17-2016 Episodic Comment on above: Patient reports mid cervical spine pain resulting in a secondary headache.MRI cervical spine was completed on 09/14/2024 with multilevel spondylosis, most severe at the C5-6 level. There is no spondylolisthesis. There are no fractures.Pain is being treated by Dr. Gillespie (pain management). Treatment with Salonpas and Biofreeze have been of benefit. She is currently on a steroid taper and pursuing corticosteroid injections pending insurance approval per the patient. Sprains and strains (20 sources) Strain of trapezius muscle; Translations: [Strain of other muscles, fascia and tendons at shoulder and upper arm level, left arm, initial encounter] 08-20-2021 Episodic Substance-related disorders (20 sources) Tobacco user; Translations: [Nicotine dependence, unspecified, uncomplicated] Onset: 01-21-2021 01-21-2021 Chronic Superficial injury; contusion (18 sources) Contusion of elbow; Translations: [Contusion of right elbow, initial encounter] 01-19-2023 Episodic Thyroid disorders (20 sources) Hypothyroidism, unspecified; Translations: [Hypothyroidism] Onset: 02-13-2012 02-13-2012 Chronic Unclassified (2 sources) Body mass index (BMI) 45.0-49.9, adult; Translations: [Body mass index (BMI) 45.0-49.9, adult] Onset: 05-25-2017 Chronic Unclassified (1 source) Patient encounter status 09-12-2024 Unclassified (6 sources) M54.2 - Cervicalgia,R52 - Pain, unspecified Unclassified (3 sources) M25.511 - Pain in right shoulder,R20.0 - Anesthesia of skin,R20.2 - Paresthesia of skin,M54.2 - Cervicalgia Unclassified (1 source) M25.511 - Pain in right shoulder,M75.01 - Adhesive capsulitis of right shoulder,E11.9 - Type 2 diabetes mellitus without complications Past or Other Problems Problem Classification Problem Date Documented Date Episodic/Chronic Acquired foot deformities (20 sources) Talipes cavus; Translations: [Congenital pes cavus, unspecified foot] Onset: 12-11-2017 12-11-2017 Episodic Nausea and vomiting (8 sources) Nausea and vomiting; Translations: [Nausea with vomiting, unspecified] Onset: 01-17-2024 01-11-2024 Episodic Other circulatory disease (20 sources) Abnormal peripheral pulse; Translations: [Other specified symptoms and signs involving the circulatory and respiratory systems] Onset: 12-11-2017 12-11-2017 Episodic Other connective tissue disease (6 sources) Pain in both feet; Translations: [Pain in right foot] Onset: 12-26-2014 Resolved: 01-21-2021 01-21-2021 Episodic Other non-traumatic joint disorders (1 source) Pain in left wrist; Translations: [Pain in left wrist] Onset: 06-21-2024 Episodic Other non-traumatic joint disorders (1 source) Pain in right wrist; Translations: [Pain in right wrist] Onset: 07-04-2024 Episodic Other skin disorders (6 sources) Sebaceous cyst of skin; Translations: [Sebaceous cyst] Onset: 01-28-2014 Resolved: 01-21-2021 01-21-2021 Episodic Screening and history of mental health and substance abuse codes (20 sources) H/O: manic depressive disorder; Translations: [Personal history of other mental and behavioral disorders] Onset: 03-10-2024 01-04-2022 Episodic Spondylosis; intervertebral disc disorders; other back problems (6 sources) Degeneration of lumbar intervertebral disc; Translations: [Other intervertebral disc degeneration, lumbar region] Onset: 01-23-2019 Resolved: 01-21-2021 01-21-2021 Chronic Unclassified (2 sources) Tobacco use; Translations: [Tobacco use] Onset: 05-25-2017 Episodic Unclassified (11 sources) Abrasion, right knee, initial encounter 01-19-2023 Unclassified (11 sources) Abrasion of right forearm, initial encounter 01-19-2023 Unclassified (11 sources) Contusion of right knee, initial encounter 01-19-2023 Results Test Name Value Interpretation Reference Range Facility Inital Evaluation (1) - PTon 12-02-2024 Inital Evaluation (1) - PT [facility] Physical Therapy [facility] [address] [place] [address] / REHABILITATION SERVICES INITIAL EVALUATION MR#: [id number] Acct: [id number] Name: JODIE CHILEL Rep #: [id number] : 1970 54 From: Nkechi Dumont PT, Cert. MDT Referring Dr.: Dr. Mendel Heredia MD Status: R EG RCR Insurance: [facility] Patient's Visit Information Visit Information Visit Information: JODIE CHILEL is a 54 year old F referred to Physical Therapy by Dr. Mendel Heredia MD with a diagnosis of PAIN AND ADHESIVE CAPSULITIS R SHLD.. Date of Evaluation: 12/02/24 Physical Therapist: Nkechi Dumont PT, Cert MDT Visit Plan Frequency: 2-3x /Week Duration: 2-3 MONTHS Plan: PT 2X'S A WK X 2-3 MONTHS FOR R UE ROM, STRETCHING AND STRENGTHENING ALONG WITH POSTURE CORRECTION AND STRENGTHENING TO TRY TO MEET SET GOALS. MANUAL THERAPY FOR AA/PROM R SHLD US, JOINT MOBILIZATION, STM, MH/CP NEEDED TO HELP DECREASE PAIN AND INFLAMMATION WHILE TRYING TO INCREASE ROM AND STRENGTH. PATIENT REQUESTING 2 VS 3 TIMES A WEEK. Subjective Subjective: Work/Leisure: UNEMPLOYEED Disability: YES - DEPRESSION Present symptoms: CHEIF C/O R SHLD AND UPPER ARM PAIN. ALSO PAIN, NUMBNESS AND TINGLING ENTIRE R UE AND LE FOR PAST 6 MONTHS AND R HAND LOCKS UP. Present since: APPROX SEPTEMBER 2024 Getting Better, Getting Worse or Staying the Same: GETTING WORSE - IN PAIN INTENSITY AND WEAKNESS Pain Scale: Worst - 12/10 Least - 5/10 Currently: 10 (LYING DOWN ON TREATMENT TABLE) Commenced as a result of: MOVING A COUCH WITH BOYFRIEND AND BOYFRIEND LOST HIS CERTIFIED SKI PATROLLER THEN COUCH THREW PATIENT DOWN AND LANDED ON HER R FOREARM AND SHE LANDED ON HER BUTTOCKS. PATIENT REPORTS SHE WAS ALREADY HAVING HEADACHES BEFORE MOVING THE COUCH (SINCE BEFORE 2023) AND SHE COULD MOVE HER R ARM GOOD UP UNTIL THE TIME THE COUCH FELL ON HER ARM. Symptoms at onset: WENT TO ED BECAUSE THOUGH WRIST WAS BROKE AND WAS PUT IN A SPINT AND R SHOULDER STARTED HURTING A FEW DAYS LATER AND HAS BEEN HURTING EVER SINCE. Worse: TOUCHING OR PUTTING PRESSURE ON ELBOW, MOVING R SHOULDER, TRYING TO CARRYING HEAVY THINGS IN R HAND HURTS R SHLD, REACHING, LIFTING. DRIVING. Better: LYING DOWN, ICING THE R SHOULDER AND ELBOW, NORCO, PAIN PATCHES, BIOFREEZE, MUSCLE RELAXERS Disturbed sleep: YES Previous history/Previous treatment: NO HX OF R SHLD PROBLEMS. PATIENT IS R HAND DOMINANT. This episode: NEURO CONSULT FOR NECK 11/21/24. CORTISONE SHOT BY DR. HEREDIA 11/26/24 R SHLD - STARTED WEARING OFF LAST NIGHT AND IN A LOT OF PAIN TODAY. Dizziness: NO Tinnitus: NO Nausea: NO Shortness of Breath: NO Difficulty Swallowing: NO Gait: NORMAL. NO ASSISTIVE DEVICES. NO OTHER FALLS OTHER THAN WITH COUCH. Accidents: NO Unexplained weight loss: NO Imaging: ALSO OTHER IMAGING - SEE [facility] EMR. IMPRESSION: Lnqz-bk-qurqhzjf disc osteophyte at C5-6 effacing the thecal sac and centrally indenting the spinal cord by superimposed midline extrusion. No significant spinal canal or neural foraminal stenosis other levels R SHLD X-RAY 11/26/24: IMPRESSION: At least moderate degenerative changes are seen of the right acromioclavicular joint, with associated marked joint narrowing. The right glenohumeral joint demonstrates minimal degenerative changes. No acute fracture or dislocation is seen. If clinical concern persists, short-term follow-up imaging may be obtained to rule out a currently occult fracture. PMH/Recent major surgery: SEE [facility] EMR. OTHER: PATIENT REPORTS NEUROLGIST DID NERVE CONDUCTION TEST AND FOUND A PINCHED NERVE IN ELBOW. 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 SHE STATES SHE CAN NOT DISHES AND CAN GOODS IN THE CUPBOARD OR WASH HER HAIR. Objective Objective: Sitting Posture/Standing Posture: FH. RSH'S. NO TORTICOLLIS. Active Correction of posture: PATIENT ABLE TO PARTIALLY CORRECT. NE ON R UE SX'S. Other Observations: INDEP GAIT AND TRANSFERS. Sensory deficit: PABLO UE LIGHT TOUCH SENSATION GROSSLY INTACT AND SYMMETRICAL EVEN WITH R FOREARM SCAR BUT R ELBOW IS TENDER. ROM deficit: AROM R SHLD FLEX 67 DEG, ABD 52 DEG. R ELBOW FLEXION/EXT FULL. FULL R FOREARM AND WRIST ARM BUT C/O PAIN ALL THE WAY UP TO HER R SHLD WITH AROM TESTING OF R FOREMARM WRIST AND HAND. ABLE TO FULLY EXTEND R FINGERS AND OPPOSE ALL FINGERS WITH THUMB BUT NOT QUITE ABLE TO FULLY TUCK THUMB INTO FULLY FORMED FIST AND NOT ABLE TO MAKE TIGHT FIST. PASSIVE ROM R SHLD 81 DEG 64 DEG, ER 24 DEG, IR 47 DEG (ROTATION MEASURED WITH 60 DEG ABD IN SUPINE). L UE WFL. Motor deficit: R SHLD 2/5, ELBOW FLEX/EXT 3+/5, FOREARM PRO/SUP 3+/5, WRIST FLEX/EXT 3+ (more content not included)... Normal [facility] Orthopedic Visit Reporton Orthopedic Visit Report [facility] [address] [place] [address] OFFICE VISIT Date of Service: 11/26/24 MR#: [id number] Acct: [id number] Name: JODIE CHILEL Rep #: [id number] : 1970 Provider: Dr. Mendel quinones MD Age/Sex: 54/F Location: [facility] [place].[facility] Status: Signed Intake Vital Signs 11/20/24 09:57 11/21/24 11:51 11/26/24 09:32 Height 5 ft 5 ft 5 ft Weight: 200 lb 205 lb BMI 39.0 40.0 BP 109/75 Blood Pressure Location Lt brachial Position Sitting Respiration 16 Pulse 94 Pulse Source Monitor Temp 98.2 F Temp Source Temporal Pulse Oximetry (%) 98 Oxygen Delivery Method room air Intake Visit Reasons: RIGHT SHOULDER Chief Complaint: Acute visit for right shoulder pain Is patient in pain?: Yes (Right shoulder) Pain scale (1-10): 10 Allergies latex Allergy (Verified 11/26/24 09:32) Hives hydromorphone (From Dilaudid) Adverse Reaction (Verified 11/26/24 09:32) Vomiting Medications ???Medication ???Instructions ???Recorded ???Confirmed ???Type atorvastatin 10 mg tablet 10 mg PO DAILY cholesterol lowerin g 02/27/16 11/26/24 History levothyroxine 25 mcg tablet 25 mcg PO DAILY thyroid 02/27/16 0 11/26/24 History metformin 1,000 mg tablet 1,000 mg PO BID blood sugar 11/26/24 History insulin glargine 100 unit/mL (3 18 unit SQ BREAKFAST 05/10/1911/17 History mL) subcutaneous pen alpha lipoic acid 600 mg capsule 600 mg PO DAILY 01/21/21 11/26/24 History ipratropium bromide 17 1 inh inhalation DAILY 01/21/21 History mcg/actuation HFA aerosol inhaler (Atrovent HFA) trazodone 300 mg tablet 300 mg PO QHS 01/21/21 11/26/24 Hi story pregabalin 150 mg capsule 150 mg PO BID 01/03/24 11/26/24 Hi story topiramate 50 mg tablet 50 mg PO Q12H 01/03/24 11/26/24 Hi story trospium 20 mg tablet 20 mg PO QHS 01/03/24 11/26/24 His tory lidocaine 4 % topical patch 1 patch topical QDAY PRN pain #30 08/13/24 11/26/24 Rx (Salonpas (lidocaine)) ea L.acidophil,salivari-Bifid o 1 cap PO Q24H 11/08/24 11/26/24 Hi story bifidum-Strep thermoph 175 mg capsule cyanocobalamin (vitamin B-12) 1,000 mcg PO DAILY 11/08/24 History 1,000 mcg tablet docusate sodium 100 mg capsule 100 mg PO BID PRN 11/08/24 5 History hydrocodone-acetaminophen 5-325mg 1 tab PO TID PRN PRN pain 5 11/26/24 History 5mg-325mg magnesium oxide 500 mg PO DAILY 11/08/24 11/26/24 History semaglutide 0.25 mg or 0.5 mg (2 0.25 mg subcut QWEEK 11/20/2411/17 0 History mg/3 mL) subcutaneous pen injector (Ozempic) [facility] Medical History (Updated 11/26/24 @ 09:48 by Mendel Heredia MD) Adhesive bursitis of right shoulder History of tobacco use Encounter for screening for malignant neoplasm of lung Chronic headaches Diabetes Chronic pain Endometrial polyp Wears glasses Depression Anxiety Alcohol use Arthritis High cholesterol Injury of back Migraine headache Smoker CPAP (continuous positive airway pressure) dependence Sleep apnea History of stress test Hypertension Diabetes mellitus type 2 in obese Hypothyroidism Bipolar disorder Asthma Surgical History S/P hysterectomy History of appendectomy History of cholecystectomy History of back surgery Previous back surgery Hx of appendectomy History of cholecystectomy Family History Mother , 58 Heart disease Diabetes COPD (chronic obstructive pulmonary disease) Father Heart disease Social History current occupational status: unemployed pets and animals: Yes Smoking Status: Current every day smoker tobacco type: e-cigarettes alcohol intake: current details: Occasional substance use type: does not use caffeine: No do you feel safe at home: Yes HPI RIGHT SHOULDER Details: This documentation accurately reflects the service provided and the decisions made by me, Dr. Mendel Heredia MD 11/26/24 0750. Part of today???s visit was documented by [ ], acting as scribe. JODIE CHILEL is a 54 year old F here today for R shoulder pain. refer from neurology. 6 months of shoulder pain and stiffness. Patient has diabetes and thyroid problems low thyroid. Is quite stiff painful anterolaterally hard to reach. Patient's dropped a couch on their shoulder about 6 months ago. Patient smokes a pack of cigarettes a day. per referral The location of pain appears to primarily be her deltoid region (C5) and she has limited range of motion. She states that she has had progressive pain in this area over the last couple weeks. There is no evidence of acute trauma to (more content not included)... Normal [facility] Shoulder min 2 Viewson 11-26 Shoulder min 2 Views [facility] Imaging Services [address] [place], [place] [id number] Shoulder min 2 Views MR#: [id number] Acct: [id number] Name: JODIE CHILEL Rep #: [id number] : 1970 F 54 From: Jana Luis PCP: Dr. Sophie Huitron MD Status: DEP [facility] Study: Shoulder min 2 Views Date of Exam: 11/26/24 Exam# [id number] Ordering Dr: Mendel Heredia MD PROCEDURE: SHOULDER MIN 2 VIEWS 11/26/2024 REASON FOR EXAM: PAIN, PT HAD A COUCH DROPPED ON HER SHOULDER SEVERAL WEEKS AGO TECHNIQUE: 4 view(s) of the right shoulder COMPARISON: None. RAD/Shoulder min 2 Views IMPRESSION: At least moderate degenerative changes are seen of the right acromioclavicular joint, with associated marked joint narrowing. The right glenohumeral joint demonstrates minimal degenerative changes. No acute fracture or dislocation is seen. If clinical concern persists, short-term follow-up imaging may be obtained to rule out a currently occult fracture. Reading Location: [address] CC: Dr. Sophie Huitron MD; Dr. Mendel Heredia MD Duck Farmer: Signed Normal [facility] Neurology Visit Reporton Neurology Visit Report [facility] [address], [address] [place] [address] OFFICE VISIT Date of Service: 11/20/24 MR#: [id number] Acct: [id number] Name: JODIE CHILEL Rep #: [id number] : 1970 Provider: Dr. Efe holloway MD Age/Sex: 54/F Location: [facility] Status: Signed [facility] Chief Complaint: Acute visit for right shoulder pain Details: Mrs. Chilel is a 54-year-old right handed female originally referred to neurology by her primary care physician Dr. Sophie Huitron for headaches. She established care with Dr. Moss on 08/13/2024. Her headaches began approximately in January 2024; there was no prior history of headaches. They were originally described as pounding; severity was rated 10/10. She had reported associated symptoms of photophobia, phonophobia, nausea, and one episode of vomiting. Aggravating factors included standing with relief by lying down. She takes topiramate; it is unclear if this is of benefit at this time. The etiology of her headaches appear to be secondary to her cervicalgia and cervical spondylosis with the most severe being at the C5-6 level as demonstrated on CT and MRI imaging. She had presented to the ED 09/02/2024 for evaluation of severe headache. She did receive a prescription for Valium for cervical spasm, but declines to use Valium. Because the patient makes frequent visits to the ED, she was referred to pain management Dr. Holloway so that a scheduled routine management of her pain could be accomplished. Treatment is currently underway. Pertinent past medical history includes diabetes, diabetic neuropathy (on pregabalin, managed by her PCP), and psychiatric disability. Surgical history includes lumbar surgery with fusion (2021) and corrective surgery for amblyopia. Interim history (11/20/2024) Mrs. Chilel is seen in neurology today for an acute visit for right shoulder pain and tenderness. Her last visit was with myself on 10/02/2024. Patient is seen today with Dr. Moss. The location of pain appears to primarily be her deltoid region (C5) and she has limited range of motion. She states that she has had progressive pain in this area over the last couple weeks. There is no evidence of acute trauma to the area or precipitating events. Of note, her right forearm has extensive scarring from a brown recluse that required fasciotomy and surgical debridement. This was many years ago. There is a small degree of muscle atrophy in her right arm when compared to her left. She follows with pain management for management of her cervicalgia. She is prescribed hydrocodone???acetaminophe n 5-325 mg 3 times daily as needed and pregabalin 150 mg daily for diabetic neuropathy. Per patient, she received a cervical steroid injection 1 week ago with 50% improvement of her neck pain. The onset of her shoulder pain was prior to this injection. An EMG/NCS of her bilateral upper extremities was conducted since her last visit. 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 No cervical radiculopathy was identified. This was reviewed with the patient. PHYSICAL EXAM: Constitutional: Well-developed, well-nourished right-handed female. She is tearful due to right shoulder pain/tenderness. Respiratory: Normal effort. Symmetric chest movement. Clear to auscultation bilaterally. Cardio: Regular rate and rhythm. No auscultated murmurs. Skin: There is scarring noted on her right forearm as noted above. Neurological examination: Mental status: Patient is awake and alert. Speech is fluent with good comprehension. Motor: There is a small degree of muscle atrophy present in the right upper extremity when compared to the left. Patient is unable to passively or actively abduct shoulder horizontally (<50 degrees) or externally rotate the shoulder due to presence of pain. Biceps brachii and triceps brachii 4/5 strength on the right in presence of pain, and 5/5 strength on the left. Patient has difficulties with pronation and supination of the right forearm. Left forearm is intact. Hand grasp is asymmetric with right hand 4/5 strength in presence of pain and left 5/5. Reflexes: Biceps, brachioradialis, triceps, patellar reflexes 2+ and symmetric throughout. Supplemental Info PERTINENT DIAGNOSTICS: (11/12/2024) NCS/EMG bilateral upper extremities: IMPRESSION: 1. This is an abnormal study. 2. There is electrodiagnostic evidence of a right ulnar mononeuropathy at the elbow, with secondary motor fiber axonal loss. 3. There is no definite electrodiagnostic evidence of a left ulnar mononeuropathy at the elbow. 4. There is no electrodiagnostic evidence of a right or left median mononeuropathy (more content not included)... Normal [facility] NCS and/or EMG Patienton NCS and/or EMG Patient [facility] Pulmonary Services/Neurology [address] [place] [address] MR#: [id number] Acct: [id number] Name: JODIE CHILEL Rep #: [id number] : 1970 54 From: Geneva Meneses MD Referring Dr: Jodie Hills CHIP PERSON-C Status: REG CL I Location: PSN Date: 11/12/24 Sex: F C NCS and/or EMG Patient Report Ordering Doctor: Jodie Hills DATE OF SERVICE: 11/12/24 Clinical Summary: 54 year old female patient with symptoms of numbness/tingling in both hands. Nerve Conduction Studies Summary: Nerve conduction studies were performed in the bilateral upper extremities. The ulnar-D5 SNAP distal latencies were prolonged bilaterally. The right ulnar-D5 SNAP amplitude was reduced. The right ulnar-guerra response amplitude was reduced. There was right ulnar motor conduction velocity slowing (>10 m/s) across the elbow. Needle Examination Summary: Needle examination of select muscles of the bilateral upper extremities demonstrated a higher proportion of motor unit action potentials with reduced recruitment, increased amplitude, increased duration, and polyphasia in the right first dorsal interosseous muscle. Impression: This is an abnormal study. There is electrodiagnostic evidence of a right ulnar mononeuropathy at the elbow, with secondary motor fiber axonal loss. There is no definite electrodiagnostic evidence of a left ulnar mononeuropathy at the elbow. There is no electrodiagnostic evidence of a right or left median mononeuropathy at the wrist (carpal tunnel syndrome) or cervical radiculopathy. Comment: the patient had difficulty tolerating the needle examination in the right upper extremity forearm, which was very tender (in the setting or prior injury/surgery) and thus limited the extent of needle examination of the muscles this region. Multi [facility] Codes Neurology Neurology Interp Codes: 79172-85 Musc test done w/n test comp (interp) (2) and 44937-52 Nrv cndj test 13/> studies (interp) 11/12/24 1043 Date Geneva Meneses MD CC: REAGAN Hills; Dr. Geneva Meneses MD; Dr. Sophie Huitron MD Date Dictated: 11/12/241016 Date Transcribed: 11/12/241016 Duck Farmer: Signed Normal [facility] Absolute lymphocyte countOrd ered By: Alhaji Piper on 11-08-2024 Lymphocytes Auto (Unsp spec) [#/Vol] 3.15 10*3/uL 0.83-4.51 [facility] Absolute neutrophil countOrd ered By: Alhaji Piper on 11-08-2024 Neutrophils (Bld) [#/Vol] 6.1 10*3/uL 2.0-7.7 [facility] Anion gap in Serum or Plasma Ordered By: Alhaji Piper on 11-08-2024 Anion gap [Moles/Vol] 13 mmol/L 5-15 [facility] Automated lymphocyte count a s percentage of total leukocytesOrdered By: Alhaji Piper on 11-08-2024 Lymphocytes/100 WBC Auto (Unsp spec) 30.4 % 19-41 [facility] BUN/creatinine ratioOrdered By: Alhaji Piper on 11-08-2024 Urea nitrogen/Creatinine [Mass ratio] 21.8 mg/mg High 10- [facility] Basic Metabolic Profile (BMP )on 11-08-2024 BUN/CRE 21.8 RATIO High 04-07 [facility] Comment on above: Performed By: #### L 500.2500, L501.2450, L500.3400, L100.0100 ####[facility] [id number] [place], [address] Calcium [Mass/Vol] 9.2 mg/dL Normal 7.6-11.0 [facility] Comment on above: Performed By: #### L 500.2500, L501.2450, L500.3400, L100.0100 ####[facility] [address] [place], [address] Chloride [Moles/Vol] 105 mmol/L Normal 98-108 [facility] Comment on above: Performed By: #### L 500.2500, L501.2450, L500.3400, L100.0100 ####[facility] [address] [place], [address] CO2 [Moles/Vol] 20.8 mmol/L Low 21.0-32.0 [facility] Comment on above: Performed By: #### L 500.2500, L501.2450, L500.3400, L100.0100 ####[facility] [address] [place], [address] Creatinine [Mass/Vol] 0.77 mg/dL Normal 0.70-1.20 [facility] Comment on above: Performed By: #### L 500.2500, L501.2450, L500.3400, L100.0100 ####[facility] [address] [place], [address] ECRCL 86.38 ml/min Normal 50-250 [facility] Comment on above: Performed By: #### L 500.2500, L501.2450, L500.3400, L100.0100 ####[facility] [address] [place], [address] GAP 13 Normal 5-15 [facility] Comment on above: Performed By: #### L 500.2500, L501.2450, L500.3400, L100.0100 ####[facility] [address] [place], [address] GFR/1.73 sq M.predicted among non-blacks MDRD (S/P/Bld) [Vol rate/Area] 92 mL/min/{1.73_m2} Normal >60 [facility] Comment on above: Result Comment: mL/m in/1.73m2 CKD-EPI Creatinine Equation (2020) Performed By: #### L 500.2500, L501.2450, L500.3400, L100.0100 ####[facility] [facility] [address] [place], [address] Glucose [Mass/Vol] 183 mg/dL High 70-99 [facility] Comment on above: Performed By: #### L 500.2500, L501.2450, L500.3400, L100.0100 ####[facility] [address] [place], [address] Potassium [Moles/Vol] 3.5 mmol/L Normal 3.3-5.1 [facility] Comment on above: Performed By: #### L 500.2500, L501.2450, L500.3400, L100.0100 ####[facility] [address] [place], [address] Sodium [Moles/Vol] 139 mmol/L Normal 133-145 [facility] Comment on above: Performed By: #### L 500.2500, L501.2450, L500.3400, L100.0100 ####[facility] [address] [place], [address] Urea nitrogen [Mass/Vol] 17 mg/dL Normal 4-19 [facility] Comment on above: Performed By: #### L 500.2500, L501.2450, L500.3400, L100.0100 ####[facility] [address] [place], [address] Basophil percentageOrdered B y: Alhaji Piper on 11-08-2024 Basophils/100 WBC (Bld) 0.5 % 0-1 [facility] Bilirubin directOrdered By: Alhaji Piper on 05-23-2025 Bilirubin.direct [Mass/Vol] 0.24 mg/dL 0.00-0.30 [facility] Bilirubin, totalOrdered By: Alhaji Piper on 11-08-2024 Bilirubin [Mass/Vol] 0.51 mg/dL 0.00-1.30 [facility] CBC W/Diff, Automatedon 10-18 Absolute Lymph 3.15 X10 3/uL Normal 0.83-4.51 [facility] Comment on above: Performed By: #### L 500.2500, L501.2450, L500.3400, L100.0100 ####[facility] [address] [place], [address] Absolute Neut 6.1 X10 3/uL Normal 2.0-7.7 [facility] Comment on above: Performed By: #### L 500.2500, L501.2450, L500.3400, L100.0100 ####[facility] [address] [place], [address] Basophils/100 WBC (Bld) 0.5 % Normal 0-1 [facility] Comment on above: Performed By: #### L 500.2500, L501.2450, L500.3400, L100.0100 ####[facility] [address] [place], [address] Eosinophils/100 WBC (Bld) 1.5 % Normal 0-5 [facility] Comment on above: Performed By: #### L 500.2500, L501.2450, L500.3400, L100.0100 ####[facility] [address] [place], [address] Erythrocyte distribution width (RBC) [Ratio] 14.1 % Normal 11.6-14.6 [facility] Comment on above: Performed By: #### L 500.2500, L501.2450, L500.3400, L100.0100 ####[facility] [address] [place], [address] Hematocrit (Bld) [Volume fraction] 43.5 % Normal 37-47 [facility] Comment on above: Performed By: #### L 500.2500, L501.2450, L500.3400, L100.0100 ####[facility] [address] [place], [address] Hemoglobin (Bld) [Mass/Vol] 14.9 g/dL Normal 12.0-15.0 [facility] Comment on above: Performed By: #### L 500.2500, L501.2450, L500.3400, L100.0100 ####[facility] [address] [place], [address] IG% 0.400 Normal 0.0-0.9 [facility] Comment on above: Result Comment: IG% - Immature Granulocytes (promyelocytes, myelocytes and metamyelocytes) > 1% indicates that a LEFT SHIFT is Present. Performed By: #### L 500.2500, L501.2450, L500.3400, L100.0100 ####[facility] [address] [place], [address] Lymphocytes/100 WBC (Bld) 30.4 % Normal 19-41 [facility] Comment on above: Performed By: #### L 500.2500, L501.2450, L500.3400, L100.0100 ####[facility] [address] [place], [address] MCH (RBC) [Entitic mass] 29.8 pg Normal 27.0-32.0 [facility] Comment on above: Performed By: #### L 500.2500, L501.2450, L500.3400, L100.0100 ####[facility] [address] [place], [address] MCHC (RBC) [Mass/Vol] 34.3 g/dL Normal 32-36 [facility] Comment on above: Performed By: #### L 500.2500, L501.2450, L500.3400, L100.0100 ####[facility] [address] [place], [address] MCV (RBC) [Entitic vol] 87.0 fL Normal 81-99 [facility] Comment on above: Performed By: #### L 500.2500, L501.2450, L500.3400, L100.0100 ####[facility] [address] [place], [address] Monocytes/100 WBC (Bld) 8.6 % Normal 0-10 [facility] Comment on above: Performed By: #### L 500.2500, L501.2450, L500.3400, L100.0100 ####[facility] [address] [place], [address] Neutrophils/100 WBC (Bld) 58.6 % Normal 47-70 [facility] Comment on above: Performed By: #### L 500.2500, L501.2450, L500.3400, L100.0100 ####[facility] [address] [place], [address] Nucleated RBC (Bld) [#/Vol] 0 10*3/uL Normal 0-5 [facility] Comment on above: Performed By: #### L 500.2500, L501.2450, L500.3400, L100.0100 ####[facility] [address] [place], [address] Platelet mean volume (Bld) [Entitic vol] 9.9 fL Normal 6.2-12.0 [facility] Comment on above: Performed By: #### L 500.2500, L501.2450, L500.3400, L100.0100 ####[facility] [address] [place], [address] Platelets (Bld) [#/Vol] 208 10*3/uL Normal 150-450 [facility] Comment on above: Performed By: #### L 500.2500, L501.2450, L500.3400, L100.0100 ####[facility] [address] [place], [address] RBC (Bld) [#/Vol] 5.00 10*6/uL Normal 4.2-5.4 [facility] Comment on above: Performed By: #### L 500.2500, L501.2450, L500.3400, L100.0100 ####[facility] [address] [place], [address] RDW SD 44.8 fl High 35.1-43.9 [facility] Comment on above: Performed By: #### L 500.2500, L501.2450, L500.3400, L100.0100 ####[facility] [address] [place], [address] WBC (Bld) [#/Vol] 10.4 10*3/uL Normal 4.4-11.0 [facility] Comment on above: Performed By: #### L 500.2500, L501.2450, L500.3400, L100.0100 ####[facility] [address] [place], [address] Carbon dioxide, total [Moles /volume] in Central venous bloodOrdered By: Alhaji Piper on 11-08-2024 CO2 [Moles/Vol] 20.8 mmol/L Low 21.0-32.0 [facility] Chloride assayOrdered By: Tyrone Piper on 11-08-2024 Chloride [Moles/Vol] 105 mmol/L 98-108 [facility] Emergency Department Summary on 11-08-2024 Emergency Department Summary [facility] Medical Records Department [address] [place] [address] Emergency Department Summary 11/08/24 MR#: [id number] Acct: [id number] Name: JODIE CHILEL Rep #: [id number] : 1970 54 From: Alhaji Piper DO PCP: Dr. Sophie Huitron MD Status:DEP ER Location: ED HPI History of Present Illness Chief Complaint: Abd Pain Informant: patient Narrative Narrative: 54-year-old female presenting to the emergency room with abdominal pain and diarrhea. Patient states that she has had chronic abdominal issues for years. She has recently started Ozempic and 2 weeks ago increased her dosing to 0.5 on Sundays. Patient states that she has had increased diarrhea since starting the Ozempic particularly over the past week has been more so. She states that anytime she eats or drinks anything a she has to run to the bathroom and has had some accidents. She states that she has had no vomiting. Over the past week she has not talked to her doctor because she states she has been trying to figure out what is going on. She notes that her blood sugars have been lower than normal. No reported fevers. [facility] Medical History History of tobacco use Encounter for screening for malignant neoplasm of lung Chronic headaches Diabetes Chronic pain Endometrial polyp Wears glasses Depression Anxiety Alcohol use Arthritis High cholesterol Injury of back Migraine headache Smoker CPAP (continuous positive airway pressure) dependence Sleep apnea History of stress test Hypertension Diabetes mellitus type 2 in obese Hypothyroidism Bipolar disorder Asthma Home Medications ???Medication ???Instructions ???Recorded ???Last Taken ???Type atorvastatin 10 mg tablet 10 mg PO DAILY cholesterol lowerin g 02/27/16 09/04/18 11:00 History levothyroxine 25 mcg tablet 25 mcg PO DAILY thyroid 02/27/16 0 01/28/21 08:00 History metformin 1,000 mg tablet 1,000 mg PO BID blood sugar 09/04/18 22:00 History insulin glargine 100 unit/mL (3 18 unit SQ BREAKFAST 05/10/19 Unkn own History mL) subcutaneous pen alpha lipoic acid 600 mg capsule 600 mg PO DAILY 01/21/21 Unknown H istory ipratropium bromide 17 1 inh inhalation DAILY 01/21/21 Un known History mcg/actuation HFA aerosol inhaler (Atrovent HFA) trazodone 300 mg tablet 300 mg PO QHS 01/21/21 Unknown His tory pregabalin 150 mg capsule 150 mg PO BID 01/03/24 Unknown His tory topiramate 50 mg tablet 50 mg PO Q12H 01/03/24 Unknown His tory trospium 20 mg tablet 20 mg PO QHS 01/03/24 Unknown Hist ory ondansetron 4 mg disintegrating 4 mg PO Q6H PRN nausea and 4 Unknown Rx tablet vomiting #20 tabs lidocaine 4 % topical patch 1 patch topical QDAY PRN pain #30 08/13/24 Unknown Rx (Salonpas (lidocaine)) ea semaglutide 0.25 mg or 0.5 mg (2 0.5 mg subcut QWEEK 09/10/24 Unkno wn History mg/3 mL) subcutaneous pen injector (Ozempic) L.acidophil,salivari-Bifid o 1 cap PO Q24H 11/08/24 Unknown His tory bifidum-Strep thermoph 175 mg capsule cyanocobalamin (vitamin B-12) 1,000 mcg PO DAILY 11/08/24 Unknow n History 1,000 mcg tablet docusate sodium 100 mg capsule 100 mg PO BID PRN 11/08/24 Unknown History hydrocodone-acetaminophen 5-325mg 1 tab PO TID PRN PRN pain 5 Unknown History 5mg-325mg magnesium oxide 500 mg PO DAILY 11/08/24 Unknown H istory Allergy/AdvReac Type Severity Reaction Status Date / Time latex Allergy Hives Verified 11/08/24 20:50 hydromorphone (From Dilaudid) AdvReac Vomiting Verified 11/08/24 20:50 Family History Mother , 58 Heart disease Diabetes COPD (chronic obstructive pulmonary disease) Father Heart disease Surgical History S/P hysterectomy History of appendectomy History of cholecystectomy History of back surgery Previous back surgery Hx of appendectomy History of cholecystectomy Social History current occupational status: unemployed pets and animals: Yes Smoking Status: Current every day smoker tobacco type: e-cigarettes alcohol intake: current details: Occasional substance use type: does not use caffeine: No do you feel safe at home: Yes ROS ROS ED Constitutional Constitutional ED: Denies chills, fever(s) or weight loss Eyes Eyes: Denies change in vision or diplopia ENT ENT ED: Denies ear pain, rhinorrhea or sore throat Cardiovascular Cardiovascular: Denies chest pain, orthopnea, palpitations or racing heartbeat Respiratory/Chest Respiratory/Chest: Denies cough, dyspnea or orthopnea Gastrointestinal Gastrointestinal: Reports abdomi (more content not included)... Normal [facility] Eosinophil percentageOrdered By: Alhaji Piper on 11-08-2024 Eosinophils/100 WBC (Bld) 1.5 % 0-5 [facility] Erythrocyte distribution wid th ratioOrdered By: Alhaji Piper on 11-08-2024 Erythrocyte distribution width (RBC) [Ratio] 14.1 % 11.6-14.6 [facility] Erythrocyte distribution wid th standard deviationOrdered By: Alhaji Piper on 11-08-2024 Erythrocyte distribution width (RBC) [Ratio] 44.8 fl High 35.1-43.9 [facility] Glomerular filtration rate ( GFR) estimation/1.73 sq m using serum, plasma, or whole bOrdered By: Alhaji Piper on 11-08-2024 GFR/1.73 sq M.predicted among non-blacks MDRD (S/P/Bld) [Vol rate/Area] 92 mL/min/{1.73_m2} >60 [facility] Comment on above: mL/min/1.73m2 CKD-EP I Creatinine Equation (2020) Hematocrit Auto (Bld) [Volum e fraction]Ordered By: Alhaji Piper on 11-08-2024 Hematocrit (Bld) [Volume fraction] 43.5 % 37-47 [facility] Hemoglobin measurementOrdere d By: Alhaji Piper on 11-08-2024 Hemoglobin (Bld) [Mass/Vol] 14.9 g/dL 12.0-15.0 [facility] Immature granulocytes/100 WB C Auto (Bld)Ordered By: Alhaji Piper on 11-08-2024 Immature granulocytes/100 WBC (Bld) 0.400 % 0.0-0.9 [facility] Comment on above: IG% - Immature Granu locytes (promyelocytes, myelocytes and metamyelocytes) > 1% indicates that a LEFT SHIFT is Present. Laboratory - Chemistry and C hemistry - challengeOrdered By: Alhaji Piper on 11-08-2024 AST [Catalytic activity/Vol] 44 U/L High <32 [facility] Lipaseon 11-08-2024 Lipase [Catalytic activity/Vol] 26 U/L Normal 13-75 [facility] Comment on above: Result Comment: Janeen del rio note: LIPASE revised reference range effective 22. New Lipase methodology. Expected to produce lower values than the previous assay method. NEW Reference Range: 13 - 75 U/L Performed By: #### L 500.2500, L501.2450, L500.3400, L100.0100 ####[facility] [address] [place], [address] Lipase measurementOrdered By : Alhaji Piper on 11-08-2024 Lipase [Catalytic activity/Vol] 26 U/L 13-75 [facility] Comment on above: Please note:LIPASE r evised reference range effective 22. New Lipase methodology. Expected to produce lower values than the previous assay method. NEW Reference Range: 13 - 75 U/L Liver Profileon 11-08-2024 Albumin [Mass/Vol] 4.2 g/dL Normal 3.5-5.0 [facility] Comment on above: Performed By: #### L 500.2500, L501.2450, L500.3400, L100.0100 ####[facility] [address] [place], [address] ALK PHOS 69 U/L Normal 35-104 [facility] Comment on above: Performed By: #### L 500.2500, L501.2450, L500.3400, L100.0100 ####[facility] [address] [place], [address] ALT [Catalytic activity/Vol] 40 U/L High <=34 [facility] Comment on above: Performed By: #### L 500.2500, L501.2450, L500.3400, L100.0100 ####[facility] [address] [place], [address] AST [Catalytic activity/Vol] 44 U/L High <=31 [facility] Comment on above: Performed By: #### L 500.2500, L501.2450, L500.3400, L100.0100 ####[facility] [address] [place], [address] Bilirubin [Mass/Vol] 0.51 mg/dL Normal 0.00-1.30 [facility] Comment on above: Performed By: #### L 500.2500, L501.2450, L500.3400, L100.0100 ####[facility] [address] [place], [address] Bilirubin.direct [Mass/Vol] 0.24 mg/dL Normal 0.00-0.30 [facility] Comment on above: Performed By: #### L 500.2500, L501.2450, L500.3400, L100.0100 ####[facility] [address] [place], [address] Globulin (S) [Mass/Vol] 2.9 g/dL Normal 2.2-4.2 [facility] Comment on above: Performed By: #### L 500.2500, L501.2450, L500.3400, L100.0100 ####[facility] [address] [place], [address] T PROT 7.1 g/dL Normal 5.9-8.4 [facility] Comment on above: Performed By: #### L 500.2500, L501.2450, L500.3400, L100.0100 ####[facility] [address] [place], [address] MCV (mean corpuscular volume ) determinationOrdered By: Alhaji Piper on 11-08-2024 MCV (RBC) [Entitic vol] 87.0 fL 81-99 [facility] Mean corpuscular hemoglobin (MCH) determinationOrdered By: Alhaji Piper on 11-08-2024 MCH (RBC) [Entitic mass] 29.8 pg 27.0-32.0 [facility] Mean corpuscular hemoglobin concentration (MCHC) determinationOrdered By: Alhaji Piper on 11-08-2024 MCHC (RBC) [Mass/Vol] 34.3 g/dL 32-36 [facility] Mean platelet volume determi nationOrdered By: Alhaji Piper on 11-08-2024 Platelet mean volume (Bld) [Entitic vol] 9.9 fL 6.2-12.0 [facility] Monocyte percentageOrdered B y: Alhaji Piper on 11-08-2024 Monocytes/100 WBC (Bld) 8.6 % 0-10 [facility] Neutrophil percentageOrdered By: Alhaji Piper on 11-08-2024 Neutrophils/100 WBC (Bld) 58.6 % 47-70 [facility] Nucleated red blood cell per centageOrdered By: Alhaji Piper on 11-08-2024 Nucleated RBC/100 WBC (Bld) [Ratio] 0 % 0-5 [facility] Platelet countOrdered By: Tyrone Piper on 11-08-2024 Platelets (Bld) [#/Vol] 208 10*3/uL 150-450 [facility] Potassium measurement (mass/ volume)Ordered By: Alhaji Piper on 11-08-2024 Potassium (Unsp spec) [Mass/Vol] 3.5 mmol/L 3.3-5.1 [facility] RBC Auto (Bld) [#/Vol]Ordere d By: Alhaji Piper on 11-08-2024 RBC (Bld) [#/Vol] 5.00 10*6/uL 4.2-5.4 [facility] Serum creatinine measurement (mass/volume)Ordered By: Alhaji Piper on 11-08-2024 Creatinine [Mass/Vol] 0.77 mg/dL 0.70-1.20 [facility] Serum globulin measurementOr dered By: Alhaji Piper on 11-08-2024 Globulin (S) [Mass/Vol] 2.9 g/dL 2.2-4.2 [facility] Serum glucose measurement (m ass/volume)Ordered By: Alhaji Piper on 11-08-2024 Glucose [Mass/Vol] 183 mg/dL High 70-99 [facility] Serum or plasma alanine vásquez otransferase (ALT) measurementOrdered By: Alhaji Piper on 11-08-2024 ALT [Catalytic activity/Vol] 40 U/L High <35 [facility] Serum or plasma albumin reggie urement (mass/volume)Ordered By: Alhaji Piper on 11-08-2024 Albumin [Mass/Vol] 4.2 g/dL 3.5-5.0 [facility] Serum or plasma alkaline adriana sphatase measurementOrdered By: Alhaji Piper on 11-08-2024 ALP [Catalytic activity/Vol] 69 U/L 35-104 [facility] Serum or plasma calcium reggie urement (mass/volume)Ordered By: Alhjai Piper on 11-08-2024 Calcium [Mass/Vol] 9.2 mg/dL 7.6-11.0 [facility] Serum or plasma urea nitroge n measurement (mass/volume)Ordered By: Alhaji Piper on 11-08-2024 Urea nitrogen [Mass/Vol] 17 mg/dL 4-19 [facility] Sodium levelOrdered By: Marino Piper on 11-08-2024 Sodium [Moles/Vol] 139 mmol/L 133-145 [facility] Total proteinOrdered By: Ilir Piper on 11-08-2024 Protein [Mass/Vol] 7.1 g/dL 5.9-8.4 [facility] White blood cell (WBC) count Ordered By: Alhaji Piper on 11-08-2024 WBC (Bld) [#/Vol] 10.4 10*3/uL 4.4-11.0 [facility] Calculated very low density lipoprotein (VLDL) cholesterol measurementOrdered By: Sophie Huitron on 10-11-2024 Calculated very low density lipoprotein (VLDL) cholesterol measurement 28 mg/dL 5-40 [facility] LDL calc ser/plasOrdered By: Sophie Huitron on 10-11-2024 Cholesterol in LDL [Mass/Vol] 74 mg/dL [facility] Comment on above: Rrcceqcilo=865-113 m g/dL & Higher Mtti=137 mg/dL or greater Lipid Profileon 10-11-2024 CHOL:HDL 2.78 Normal [facility] Comment on above: Performed By: #### L 500.4100, L502.0250, L501.9520 #### [facility] [address] [place], [address] Cholesterol [Mass/Vol] 160 mg/dL Normal <=200 [facility] Comment on above: Result Comment: Chol esterol level, Desirable <200 mg/dL Borderline high cholesterol 200-239 mg/dL High cholesterol >=240 mg/dL Recommendations of the NCEP Adult Treatment Panel for the following risk-cutoff thresholds for the [place] population. Performed By: #### L 500.4100, L502.0250, L501.9520 #### [facility] [address] [place], [address] Cholesterol in HDL [Mass/Vol] 58 mg/dL Normal [facility] Comment on above: Result Comment: Liane onal Cholesterol Education Program (NCEP) guidelines: <40 mg/dL: Low HDL-cholesterol (major risk factor for CHD) >= 60 mg/dL: High HDL-cholesterol (negative risk factor for CHD) HDL-cholesterol is affected by a number of factors, e.g. smoking, exercise, hormones, sex and age. Performed By: #### L 500.4100, L502.0250, L501.9520 #### [facility] [address] [place], [address] Cholesterol in LDL [Mass/Vol] 74 mg/dL Normal [facility] Comment on above: Result Comment: Bord pdfjki=632-745 mg/dL Higher Vcco=819 mg/dL or greater Performed By: #### L 500.4100, L502.0250, L501.9520 #### [facility] [address] [place], [address] Cholesterol in VLDL [Mass/Vol] 28 mg/dL Normal 5-40 [facility] Comment on above: Performed By: #### L 500.4100, L502.0250, L501.9520 #### [facility] [address] [place], [address] Triglyceride [Mass/Vol] 141 mg/dL Normal [facility] Comment on above: Result Comment: The drugs N-Acetylcysteine and Metamizole may falsely depress this assay. Normal range: <150 mg/dL Borderline High: 150-199 mg/dL High: 200-499 mg/dL Very High: >500 mg/dL Performed By: #### L 500.4100, L502.0250, L501.9520 #### [facility] [address] [place], [address] Microalb:Creat Ratio,Random URon 10-11-2024 Creatinine [Mass/Vol] 106.00 mg/dL Normal 28.00- 217.0 0 [facility] Comment on above: Performed By: #### L 500.4100, L502.0250, L501.9520 ####[facility] [address] [place], [address] MALB:CREAT UNABLE TO CALCULATE Normal [facility] Comment on above: Performed By: #### L 500.4100, L502.0250, L501.9520 ####[facility] [address] [place], [address] MICROALBUMIN,UR < 12.0 Normal NO RANGE EST. [facility] Comment on above: Performed By: #### L 500.4100, L502.0250, L501.9520 ####[facility] [address] [place], [address] Microalbumin/creat ratio urO rdered By: Sophie Huitron on 10-11-2024 Urine microalbumin/creatinin e ratio measurement UNABLE TO CALCULATE mg/g CRE [facility] Random urine creatinine reggie urement (mass/volume)Ordered By: Sophie Huitron on 10-11-2024 Creatinine Unsp time (U) [Mass/Vol] 106.00 mg/dL 28.00-217.0 0 [facility] Screening total cholesterol/ high density lipoprotein (HDL) cholesterol ratioOrdered By: Sophie Huitron on 10-11-2024 Cholesterol.total/Chol esterol in HDL [Mass ratio] 2.78 {ratio} [facility] Serum or plasma cholesterol in HDL measurement (mass/volume)Ordered By: Sophie Huitron on 10-11-2024 Cholesterol in HDL [Mass/Vol] 58 mg/dL >40 [facility] Comment on above: National Cholesterol Education Program (NCEP) guidelines:<40 mg/dL: Low HDL-cholesterol (major risk factor for CHD)>= 60 mg/dL: High HDL-cholesterol (negative risk factor for CHD)HDL-cholesterol is affected by a number of factors, e.g. smoking, exercise, hormones, sex and age. Serum or plasma cholesterol measurement (mass/volume)Ordered By: Sophie Huitron on 10-11-2024 Cholesterol [Mass/Vol] 160 mg/dL <201 [facility] Comment on above: Cholesterol level, D esirable <200 mg/dLBorderline high cholesterol 200-239 mg/dLHigh cholesterol >=240 mg/dLRecommendations of the NCEP Adult Treatment Panel for the following risk-cutoff thresholds for the [place] population. TSH DL <= 0.005 mIU/L QnOrde red By: Sophie Huitron on 10-11-2024 TSH Qn 1.190 uIU/mL 0.300-4.200 [facility] Thyroid Stim Hormone (TSH)on 10-11-2024 TSH 1.190 uIU/mL Normal 0.300-4.200 [facility] Comment on above: Performed By: #### L 500.4100, L502.0250, L501.9520 ####[facility] [address] [place], [address] Triglycerides measurementOrd ered By: Sophie Huitron on 10-11-2024 Triglyceride [Mass/Vol] 141 mg/dL <199 [facility] Comment on above: The drugs N-Acetylcy steine and Metamizole may falsely depress this assay. Normal range: <150 mg/dLBorderline High: 150-199 mg/dLHigh: 200-499 mg/dLVery High: >500 mg/dL Urine albumin measurement [facility] detection limit of 20 mg/L or less (mass/volume)Ordered By: Sophie Huitron on 10-11-2024 Albumin DL <= 20 mg/L (U) [Mass/Vol] < 12.0 mg/L NO RANGE EST. [facility] Neurology Visit Reporton Neurology Visit Report [facility] [address], [address] [place] [address] OFFICE VISIT Date of Service: 10/02/24 MR#: [id number] Acct: [id number] Name: JODIE CHILEL Rep #: [id number] : 1970 Provider: REAGAN porter Age/Sex: 54/F Location: [facility] [place] Status: Signed HPI HPI Chief Complaint: Follow-up Details: Mrs. Chilel is a 54-year-old right handed female originally referred to neurology by her primary care physician Dr. Sophie Huitron for headaches. She established care with Dr. Moss on 08/13/2024. Her headaches began approximately in January 2024; there was no prior history of headaches. They were originally described as pounding; severity was rated 10/10. She had reported associated symptoms of photophobia, phonophobia, nausea, and one episode of vomiting. Aggravating factors included standing with relief by lying down. The etiology of her headaches appear to be secondary to her cervicalgia and cervical spondylosis as demonstrated on CT and MRI imaging. She had presented to the ED 09/02/2024 for evaluation of severe headache. She did receive a prescription for Valium for cervical spasm, but declines to use Valium. Because the patient makes frequent visits to the ED, we recommended that she be referred to pain management so that a scheduled routine management of her pain could be accomplished. Pertinent past medical history includes diabetes, diabetic neuropathy (on pregabalin, managed by her PCP), and psychiatric disability. Surgical history includes lumbar surgery with fusion (2021) and corrective surgery for amblyopia. Interim history: Mrs. Chilel presents to neurology today 10/02/24 for a follow-up. Her last visit was 09/10/[address] Moss. Since this last visit, an MRI brain and MRI cervical spine were obtained and reviewed. She was also evaluated by pain management. She continues to have daily headaches secondary to her neck pain. She states that the headaches are severe. She reports no associated photophobia or phonophobia at this time. She states that she intermittently experiences nausea and vomiting when the headache pain is severe. She states that sleep is of benefit. The MRI images were reviewed by myself and Dr. Moss and I agree with the radiologist's interpretation. See supplemental information for full reports. The MRI brain showed no acute process. Imaging of the cervical spine showed multilevel spondylolysis, with the most severe being at the C5-6 level. She was referred to pain management physician Dr. Holloway for her cervicalgia. He had prescribed her a steroid course and she is currently on day 2 of 6 day of this taper. She states that he plans to pursue steroid injections, but it is currently being authorized by insurance. Physical therapy was discussed; however, the patient appears to be apprehensive. She states that she previously completed physical therapy and steroids for her lower back pain with no success and ultimately pursued surgical intervention. In addition to the treatment with systemic steroids, she uses Salonpas and Biofreeze as needed. This appears to be of benefit and will be continued. She is prescribed pregabalin 150 mg twice daily by her primary care physician for diabetic neuropathy. She also takes topiramate for headache prophylaxis. It is unclear if these medications are of benefit at this time. I am optimistic that with improvement of her cervicalgia, there will be a subsequent decrease in headache frequency and intensity. A new symptom on my exam today was right upper extremity numbness and tingling, most prominently noted in her hand involving all fingers and the palm. Upon visual examination of her arm, extensive scarring is noted on the right forearm. The patient states she was bit by a brown recluse spider many years ago and appears to have had surgical debridement. Tactile and vibratory sensation is decreased in her right upper extremity. She states that the sensation is felt through her entire right arm and into her shoulder. Her right hand grasp is slightly weaker than her left. Reflexes are 1+ and symmetric in the upper extremities. EMG/NCS will be pursued to further distinguish a radicular symptom versus a carpal or cubital tunnel syndrome. ROS: General: No fatigue. No recent weight loss/gain. No recent illness. No fevers. No recent falls. Neuro: Positive for headaches. RUE numbness/tingling. No tremors. Psych: No insomnia or hypersomnia. No agitation. No memory difficulties. Cardio: No palpitations. No chest pain or discomfort. No edema. Respiratory: No cough. No shortness of breath. No wheezing. Musculoskeletal: No use of assistive devices. Positive for cervical neck pain. No back pain. Positive for right hand weakness. (more content not included)... Normal [facility] Breast imaging reportOrdered By: Candy Singletary on 09-23-2024 Study report [facility] Imaging Services [address] [place] [address] SCRN MAMM (CAD)W/FELECIA BILAT MR#: [id number] Acct: [id number] Name: JODIE CHILEL Rep #: [id number] : 1970 F 54 From: Dewayne Singletary DO PCP: Dr. Sophie Huitron MD Status: [facility] Study:SCRN MAMM (CAD)W/FELECIA BILAT Date of Exa m: 09/23/24 Exam# [id number] Ordering Dr: Kasey Huitron MD EXAM: SCRN MAMM (CAD)W/FELECIA BILAT DATE: 09/23/2024 CLINICAL HISTORY: F, Age 54 y/o , SCREENING BREAST CANCER RISK ASSESSMENT: Has not been calculated. TECHNIQUE: Bilateral screening digital breast tomosynthesis with 2D and 3D images. Computeraided detection. COMPARISON: Prior exam(s) dated 09/22/2023. FINDINGS: TISSUE DENSITY: The breast tissue is almost entirely fatty. Bilateral Breast Mammographic Findings: There are no suspicious masses, suspicious cluster of microcalcifications, architectural distortion or secondary signs of malignancy identified in either breast. Benign-appearing round microcalcifications and macrocalcifications are seen in both breasts. A stable, 5 mm, well-circumscribed, isodense mass in the superior outer, far posterior aspect of the right breast is noted. BI/SCRN MAMM (CAD)W/FELECIA BILAT IMPRESSION: Right Breast: BIRADS 2 BENIGN FINDING. Left Breast: BIRADS 2 BENIGN FINDING. OVERALL FINAL ASSESSMENT: BIRADS 2 BENIGN FINDING RECOMMENDATION: Routine annual follow-up in 1 Year A letter with findings and recommendations will be mailed to the patient. Reading Location: [id number] CC: Dr. Sophie Huitron MD ~ Duck Farmer: Signed [facility] SCRN MAMM (CAD)W/FELECIA BILATo n 09-23-2024 SCRN MAMM (CAD)W/FELECIA BILAT [facility] Imaging Services [address] [place] [id number] SCRN MAMM (CAD)W/FELECIA BILAT MR#: [id number] Acct: [id number] Name: JODIE CHILEL Rep #: [id number] : 1970 F 54 From: Candy Yang PCP: Dr. Sophie Huitron MD Status: [facility] Study: SCRN MAMM (CAD)W/FELECIA BILAT Date of Exam: 01/10 Exam# [id number] Ordering Dr: Sophie Huitron MD EXAM: SCRN MAMM (CAD)W/FELECIA BILAT DATE: 09/23/2024 CLINICAL HISTORY: F, Age 54 y/o , SCREENING BREAST CANCER RISK ASSESSMENT: Has not been calculated. TECHNIQUE: Bilateral screening digital breast tomosynthesis with 2D and 3D images. Computer aided detection. COMPARISON: Prior exam(s) dated 09/22/2023. FINDINGS: TISSUE DENSITY: The breast tissue is almost entirely fatty. Bilateral Breast Mammographic Findings: There are no suspicious masses, suspicious cluster of microcalcifications, architectural distortion or secondary signs of malignancy identified in either breast. Benign-appearing round microcalcifications and macrocalcifications are seen in both breasts. A stable, 5 mm, well-circumscribed, isodense mass in the superior outer, far posterior aspect of the right breast is noted. BI/SCRN MAMM (CAD)W/FELECIA BILAT IMPRESSION: Right Breast: BIRADS 2 BENIGN FINDING. Left Breast: BIRADS 2 BENIGN FINDING. OVERALL FINAL ASSESSMENT: BIRADS 2 BENIGN FINDING RECOMMENDATION: Routine annual follow-up in 1 Year A letter with findings and recommendations will be mailed to the patient. Reading Location: [id number] CC: Dr. Sophie Huitron MD Duck Farmer: Signed Normal [facility] Magnetic resonance imaging r eportOrdered By: Luis Romero on 09-15-2024 Study report [facility] Imaging Services [address] [place] [address] Spine Cervical (Routine) MR#: [id number] Acct: [id number] Name: JODIE CHILEL Rep #: [id number] : 1970 F 54 From: Pet er Macey DO PCP: Dr. Sophie Huitron MD Status: REG CLI Study:Spine Cervical (Routine) Date of Exam: 09/14/24 Exam# [id number] Ordering Dr: Jodie Hills CHIP PERSON-C PROCEDURE: SPINE CERVICAL (ROUTINE) 09/14/2024 REASON FOR EXAM: SEVERE HEADACHES TECHNIQUE: Noncontrast cervical spine MRI. Coronal and Sagittal reconstruction series were provided. COMPARISON: None. FINDINGS: Vertebrae: Cervical vertebral body heights are preserved. Bone marrow signal is unremarkable. Alignment: Normal. No spondylolisthesis. Spinal Cord: Cervical spinal cord is of normal size and signal intensities. Structures at the foramen magnum are unremarkable. C2-3: Unremarkable C3-4: Unremarkable C4-5: Unremarkable C5-6: Moderate disc osteophyte effacing the thecal sac and centrally indenting the spinal cord C6-7: Unremarkable C7-T1: Unremarkable MRI/Spine Cervical (Routine) IMPRESSION: Waik-bo-lgpxfzso disc osteophyte at C5-6 effacing the thecal sac and centrally indenting the spinal cord by superimposed midline extrusion. No significant spinal canal or neural foraminal stenosis other levels Reading Location: [facility] CC: REAGAN Hills; Dr. Sophie Huitron MD ~ Duck Farmer: Signed [facility] Brain without Contraston Brain without Contrast [facility] Imaging Services [address] [place], [place] [id number] Brain without Contrast MR#: [id number] Acct: [id number] Name: JODIE CHILEL Rep #: [id number] : 1970 F 54 From: Luis Romero DO PCP: Dr. Sophie Huitron MD Status: REG CLI Study: Brain without Contrast Date of Exam: 09/14/24 Exam# [id number] Ordering Dr: Jodie Hills CHIP PERSON-C PROCEDURE: BRAIN WITHOUT CONTRAST N/A REASON FOR EXAM: SEVERE HEADACHES TECHNIQUE: Brain MRI without intravenous contrast. CONTRAST: N/A COMPARISON: CT brain of 09/02/2024 FINDINGS: Brain: No acute infarct, hemorrhage, mass or mass effect. No significant abnormal GRE, T2 or FLAIR signal. Diffusion weighted images: No restricted diffusion Ventricles: Normal size ventricles Major Intracranial Vessels: Anterior circulation flow voids are present. Vertebrobasilar system patent. Sinuses: No significant sinus disease. Mastoids: No effusions. IACs: Unremarkable. Cranial Nerves VII and VIII: Intact. Cochlea, Vestibule and Semicircular Canals: Intact. Middle Ear Cavities: No effusions. MRI/Brain without Contrast IMPRESSION: No acute process. Reading [facility] CC: REAGAN Hills; Dr. Sophie Huitron MD Duck Farmer: Signed Normal [facility] Magnetic resonance imaging r eportOrdered By: Luis Romero on 09-14-2024 Study report [facility] Imaging Services [address] [place] [address] Brain without Contrast MR#: [id number] Acct: [id number] Name: JODIE CHILEL Rep #: [id number] : 1970 F 54 From: Pet er Macey PEREZ PCP: Dr. Sophie Huitron MD Status: REG CLI Study:Brain without Contrast Date of Exam: 09/14/24 Exam# [id number] Ordering Dr: Jodie Hills CHIP PERSONStef PROCEDURE: BRAIN WITHOUT CONTRAST N/A REASON FOR EXAM: SEVERE HEADACHES TECHNIQUE: Brain MRI without intravenous contrast. CONTRAST: N/A COMPARISON: CT brain of 09/02/2024 FINDINGS: Brain: No acute infarct, hemorrhage, mass or mass effect. No significant abnormal GRE, T2 or FLAIR signal. Diffusion weighted images: No restricted diffusion Ventricles: Normal size ventricles Major Intracranial Vessels: Anterior circulation flow voids are present. Vertebrobasilar system patent. Sinuses: No significant sinus disease. Mastoids: No effusions. IACs: Unremarkable. Cranial Nerves VII and VIII: Intact. Cochlea, Vestibule and Semicircular Canals: Intact. Middle Ear Cavities: No effusions. MRI/Brain without Contrast IMPRESSION: No acute process. Reading Location: [facility] CC: REAGAN Hills; Dr. Sophie Huitron MD ~ Duck Farmer: Signed [facility] Spine Cervical (Routine)on 0 09-14-2024 Spine Cervical (Routine) [facility] Imaging Services [address] [place], [place] [address] Spine Cervical (Routine) MR#: [id number] Acct: [id number] Name: JODIE CHILEL Rep #: [id number] : 1970 F 54 From: Luis Romero DO PCP: Dr. Sophie Miedel, MD Status: REG CLI Study: Spine Cervical (Routine) Date of Exam: Exam# [id number] Ordering Dr: Jodie Hills CHIP PERSON-C PROCEDURE: SPINE CERVICAL (ROUTINE) 09/14/2024 REASON FOR EXAM: SEVERE HEADACHES TECHNIQUE: Noncontrast cervical spine MRI. Coronal and Sagittal reconstruction series were provided. COMPARISON: None. FINDINGS: Vertebrae: Cervical vertebral body heights are preserved. Bone marrow signal is unremarkable. Alignment: Normal. No spondylolisthesis. Spinal Cord: Cervical spinal cord is of normal size and signal intensities. Structures at the foramen magnum are unremarkable. C2-3: Unremarkable C3-4: Unremarkable C4-5: Unremarkable C5-6: Moderate disc osteophyte effacing the thecal sac and centrally indenting the spinal cord C6-7: Unremarkable C7-T1: Unremarkable MRI/Spine Cervical (Routine) IMPRESSION: Ypgv-jb-rysufbhj disc osteophyte at C5-6 effacing the thecal sac and centrally indenting the spinal cord by superimposed midline extrusion. No significant spinal canal or neural foraminal stenosis other levels Reading Location: [facility] CC: CHIP PERSON-Dorothy [place]; Dr. Sophie Huitron MD Duck Farmer: Signed Normal [facility] CNCOon 09-12-2024 CNCO Letter Text Normal [facility] CNOVon 09-12-2024 CNOV Office Visit (INTMWS ) -- JODIE CHILEL ([id number]) 1970 F Date Time Provider Department 09/12/24 9:40 AM NACHO CORNELL INTMWS During your visit today, we recorded the following information about you: Pulse Respiration Blood pressure Weight 84/minute 16/minute 110/76 95 kg Height 1.51 m Nacho Cornell APRN.DRESSMAKER HELPER 09/12/2024 10:04 AM Signed Subjective Patient ID: Jodie is a 54 year old female who presents for Letter (Emotional support animal). HPI Presents today regarding letter for emotional support animal for her dogs. Notes she does not have time for a visit other than to get the letter today. States will come back next week for a visit and get labwork completed. She was last seen in office 07/2023. HPI excerpted from her last visit:She was seen by Saima Mittal CNP July 05, 2023 for new daily persistent headache. Abnormal EOM noted bilateral. Lab work was ordered, MRI brain ordered. Office note that day excerpted:Jodie Chilel is a 53 year old female. She [...] brain tumors. Headache worse with eye movements. Lab work showed hemoglobin A1c was increased. B12 level was high. Magnesium level is low. She was advised to follow-up with pharmacy regarding diabetes management. She was advised to decrease B12 supplement to every other day and increase magnesium oxide dose from 5 mg daily to twice daily. These measures were thought to help her headache. MRI brain without concerning findings. She called the office August 04, 2023 noting that blood sugars were increased as she was feeling weak. Reported taking metformin 500mg -3 daily. Reported unable to get Trulicity so had not been taking it for a few weeks. Noted she was treated with prednisone for asthma exacerbation. She was advised to go to ER for further evaluation and treatment as indicated and follow-up in the office. She was seen in the [facility] emergency department August 05, 2023. Review of OSH notes indicate she reported blood sugars in the 500 range. She reported polyuria polydipsia lightheadedness and nausea. Due to medication shortage she was provided with Trulicity 0.75 mg to be taken twice daily as her usual dose was not available. She was provided with a 2-week supply from [facility] pharmacy. She was advised to follow-up with PCP for future refills. Today reports fasting blood sugar 286. Reports prior intolerance of metformin 3 times daily currently taking twice daily. Reports she has resumed Trulicity 1.5 mg/week. States she has checked with her usual pharmacy and they have what she needs in stock. She notes continues with daily headache for which she is taking tfbg-ado-lpcwnxk migraine medicine with Tylenol aspirin and caffeine 4 times daily. Notes it has been effective. She was seen for JAELYN and sleep medicine. Noted declines sleep study at [facility] nap. Noted due to dental condition likely would not qualify for dental appliance. Does not meet criteria for inspire due to mild JAELYN. Stated she was interested in CBT but not scheduled. She notes persistent cough following bronchitis not helped much with benzonatate and inhaler Plan at her last visit: She notes decreased control of diabetes due to not taking Trulicity due to unavailability. Has resumed. Notes intolerance of metformin 3 tabs daily due to diarrhea so we will remain on twice daily dosing for now. Recheck A1c in 3 months and make adjustments accordingly. Recommend trial of topiramate for chronic daily headache. Increase dose of benzonatate for cough suppression. ROS: see HPI DIABETES MELLITUS:Patient's last HgA1C was Hemoglobin A1C (%) Date Value 07/05/2023 8.8 03/15/2023 7.3 06/23/2021 8.8 12/03/2020 8.8 ) HTN: Last 3 Encounter BP Readings: Date: BP: 08/10/2023 104/68 07/17/2023 118/81 07/05/2023 120/70 Hyperlipidemia. Her most recent lipid panels are: Cholesterol, Total (mg/dL) Date Value 03/15/2023 152 07/04/2022 158 06/23/19 (more content not included)... Normal [facility] Neurology Visit Reporton Neurology Visit Report [facility] [address] [place] [address] OFFICE VISIT Date of Service: 09/10/24 MR#: [id number] Acct: [id number] Name: JODIE CHILEL Rep #: [id number] : 1970 Provider: Dr. Efe holloway MD Age/Sex: 54/F Location: [facility] [place]. Status: Signed HPI HPI Details: The patient is a 54-year-old right handed female who presents for a 1 month follow up on Orthostatic headache and Cervicalgia. Patient presents for follow-up evaluation of headache. Patient is seen with Jodie Simon nurse practitioner. Patient continues to have daily headaches. She had presented to the ED for evaluation of severe headache. She did receive a prescription for Valium for cervical spasm but patient has a prescription but declines to use Valium. Her headache continues to be worse when she stands up which may be due to cervical spondylosis and cervicalgia. Patient had a CT of the head and of the cervical spine performed. Studies demonstrated no acute intracranial pathology but patient appears to have possible significant cervical spondylosis and an MRI was recommended by radiology. We had previously ordered an MRI of the brain and cervical spine in this patient which will be done this coming Monday. Patient's visit to neurology is for management of headache which is currently underway. Patient did use Salonpas to the neck. She noted that does help her but after about 6 hours a tendency to curl up and not stay on. We have suggested that she use adhesive tape over the top of Salonpas to hold in place on her neck. We are encouraged by the notion that she feels that the Salonpas did relieve her pain indicating that cervicalgia and spondylosis may be the cause of her discomfort. Because the patient makes frequent visits to the ED we have recommended that she be referred to pain management so that a scheduled routine management of her pain could be accomplished. Patient is agreeable to that. She had seen pain management in the past but discontinued because she did not want injections in her neck. I indicated that injections are not necessarily the only method of management of this problem and that perhaps oral medications could be used in a scheduled way to help her. Exam Const Other: Blood pressure is 110/74 pulse 93 respiration 14 temperature 98.2 O2 sat 97%. BMI is 41.3%. General appearance the patient appears tearful and depressed. Neurologic examination: Mental status: Patient appears tearful and depressed. Cognition appears intact. Patient is frustrated regarding continued pain and headache. CN II-XII: No changes in eyes face hearing phonation tongue noted. Examination of neck: Patient has point tenderness at the region of the right splenius capitis insertion near the inion. Motor exam no focal abnormalities. Cerebellar showed no obvious tremors or ataxia. Reflexes were suppressed all 4 extremities. Sensory exam shows the patient continues to have diabetic neuropathy. (Patient did not have EMG or nerve conduction studies that she recalls and I seen him in her [facility] chart. Peripheral neuropathy being managed by PCP) Assessment and Plan Assessment and Plan (1) Cervicalgia: Status: Suspected Comment: Patient reports mid cervical spine pain resulting in headache. 09/10/2024: Patient appears to have had some benefit from Salonpas with lidocaine placed on the neck. Duration of remaining in place was limited. Would recommend patient use adhesive tape over the Salonpas to hold it in place. We are awaiting results of MRI of brain and cervical spine. This was recommended by radiology on recent CT studies in ED. These had previously been ordered but patient could not get it done until this weekend. Patient has been referred to pain management for oral medication management of her pain. Plan: 1. Complete MRI of brain and cervical spine this weekend. 2. Follow-up on results of MRI. 3. Patient referred to pain management. 4. Patient will continue Salonpas use tape to try to hold in place for a longer period of relief. Orders: Referrals Pain Management M54.2 - Cervicalgia, R52 - Pain, unspecified Intake Vital Signs 08/13/24 09:35 09/02/24 13:46 09/10/24 10:05 Height 5 ft 5 ft 5 ft Weight: 212 lb BMI 41.3 BP 110/74 Blood Pressure Location Lt brachial Position Sitting Respiration 14 Pulse 93 Pulse Source Monitor Temp 98.2 F Temp Source Temporal Pulse Oximetry (%) 97 Oxygen Delivery Method room air Intake Visit Reasons: 1 1/2 MONTH FU Intellectual Property Manager Required: No Accompanied by: Self Allergies latex Allergy (Verified 09/10/24 10:09) Hives hydromorphone (From Dilaudid) Adverse Reaction (Verified 09/10/24 10:09) Vomiting Medications ???Medication ???Instructions ???Recorded ???Confirmed ???Type (more content not included)... Normal [facility] Brain/Head without Contrasto n 09-02-2024 Brain/Head without Contrast [facility] Imaging Services [address] [place] [address] Brain/Head without Contrast MR#: [id number] Acct: [id number] Name: JODIE CHILEL Rep #: [id number] : 1970 F 54 From: Saul mckenzie MD PCP: Dr. Sophie Huitron MD Status: REG ER Study: Brain/Head without Contrast Date of Exam: 08/17 01/10 Exam# [id number] Ordering Dr: Ulysses Ceballos DO EXAM: CT images of the brain were acquired without intravenous contrast. Multiplanar reformats were acquired. COMPARISON: None available. FINDINGS: * ACUTE: No acute infarct or hemorrhage. No mass effect or herniation. * BRAIN PARENCHYMA: Signal intensities are within normal limits for age. * VENTRICLES/EXTRA-AXIAL SPACES: No hydrocephalus or extra-axial fluid collections. * EXTRACRANIAL STRUCTURES: Visualized osseous structures are normal. Soft tissues are normal. CT/Brain/Head without Contrast IMPRESSION: No acute intracranial findings. CLINICAL HISTORY: HEADACHE Reading Location: [facility] CC: Dr. Sophie Huitron MD; Dr. Ulysses Ceballos DO Duck Farmer: Signed Normal [facility] Emergency Department Summary on 09-02-2024 Emergency Department Summary [facility] Medical Records Department [address] [place] [address] Emergency Department Summary 09/02/24 MR#: [id number] Acct: [id number] Name: JODIE CHILEL Rep #: [id number] : 1970 54 From: Ulysses Garcia PCP: Dr. Sophie Huitron MD Status:DEP ER Location: ED HPI History of Present Illness Chief Complaint: Other, Pain/Inj Informant: patient Narrative Narrative: 6 weeks nontraumatic neck pain pain down her left shoulder. States started with headaches. She saw her PCP who referred her to neurology for which she saw Dr. Moss. She states MRIs ordered for September. She is on Lyrica for history of diabetic neuropathy. She takes it twice a day. States today pain was worse for which she took half a Vicodin for which she had leftover and Phenergan. She tried calling her neurologist for medications however could not get through she left a message. She states they called when she went to the restroom however called back and got voicemail. She has not discussed with her PCP. However reports her head is throbbing today. Prior similar symptoms: Yes [facility] Medical History History of tobacco use Encounter for screening for malignant neoplasm of lung Chronic headaches Diabetes Chronic pain Endometrial polyp Wears glasses Depression Anxiety Alcohol use Arthritis High cholesterol Injury of back Migraine headache Smoker CPAP (continuous positive airway pressure) dependence Sleep apnea History of stress test Hypertension Diabetes mellitus type 2 in obese Hypothyroidism Bipolar disorder Asthma Home Medications ???Medication ???Instructions ???Recorded ???Last Taken ???Type atorvastatin 10 mg tablet 10 mg PO DAILY cholesterol lowerin g 02/27/16 09/04/18 11:00 History levothyroxine 25 mcg tablet 25 mcg PO DAILY thyroid 02/27/16 0 01/28/21 08:00 History albuterol sulfate 90 mcg/actuation 2 puff inhalation Q4H PRN PRN 08/29/18 15:00 History aerosol inhaler (ProAir HFA) shortness of breath metformin 1,000 mg tablet 1,000 mg PO BID blood sugar 09/04/18 22:00 History insulin glargine 100 unit/mL (3 18 unit SQ BREAKFAST 05/10/19 Unkn own History mL) subcutaneous pen alpha lipoic acid 600 mg capsule 600 mg PO DAILY 01/21/21 Unknown H istory ipratropium bromide 17 1 inh inhalation DAILY 01/21/21 Un known History mcg/actuation HFA aerosol inhaler (Atrovent HFA) trazodone 300 mg tablet 300 mg PO QHS 01/21/21 Unknown His tory vitamin B12 1 mg-folic acid 0.8 mg 1 tab PO DAILY 01/21/21 Unknown History tablet dulaglutide 0.75 mg/0.5 mL 1.5 mg subcut QWEEK #2 mL 08/05/23 Unknown Rx subcutaneous pen injector (Trulicity) pregabalin 150 mg capsule 150 mg PO BID 01/03/24 Unknown His tory topiramate 25 mg tablet 25 mg PO QHS headache 01/03/24 Unk nown History topiramate 50 mg tablet 50 mg PO QHS 01/03/24 Unknown Hist ory trospium 20 mg tablet 20 mg PO QHS 01/03/24 Unknown Hist ory ondansetron 4 mg disintegrating 4 mg PO Q6H PRN nausea and 4 Unknown Rx tablet vomiting #20 tabs lidocaine 4 % topical patch 1 patch topical QDAY PRN pain #30 08/13/24 Unknown Rx (Salonpas (lidocaine)) ea diazepam 5 mg tablet 5 mg PO Q8 PRN Muscle Spasm #10 Unknown Rx tabs Allergy/AdvReac Type Severity Reaction Status Date / Time latex Allergy Hives Verified 09/02/24 13:48 hydromorphone (From Dilaudid) AdvReac Vomiting Verified 09/02/24 13:48 Family History Mother , 58 Heart disease Diabetes COPD (chronic obstructive pulmonary disease) Father Heart disease Surgical History S/P hysterectomy History of appendectomy History of cholecystectomy History of back surgery Previous back surgery Hx of appendectomy History of cholecystectomy Social History current occupational status: unemployed pets and animals: Yes Smoking Status: Current every day smoker tobacco type: e-cigarettes alcohol intake: current details: Occasional substance use type: does not use caffeine: No do you feel safe at home: Yes ROS ROS ED Constitutional Constitutional ED: Denies chills, fever(s) or sweats ENT ENT ED: Denies sore throat Cardiovascular Cardiovascular: Denies chest pain, leg edema, palpitations or racing heartbeat Respiratory/Chest Respiratory/Chest: Denies cough, dyspnea or dyspnea on exertion Gastrointestinal Gastrointestinal: Denies abdominal pain, diarrhea, nausea or vomiting Genitourinary Genitourinary ED: Denies dysuria, hematuria or urinary frequency Musculoskeletal Musculoskeletal: Reports neck pain; Denies back pain or extremity (more content not included)... Normal [facility] Spine Cervical without Contr ason 09-02-2024 Spine Cervical without Contras [facility] Imaging Services [address] [place], [place] [address] Spine Cervical without Contras MR#: [id number] Acct: [id number] Name: JODIE CHILEL Rep #: [id number] : 1970 F 54 From: Shree Church MD PCP: Dr. Sophie Huitron MD Status: REG ER Study: Spine Cervical without Contras Date of Exam: 0 09/02/24 Exam# [id number] Ordering Dr: Ulysses Ceballos DO PROCEDURE: SPINE CERVICAL WITHOUT CONTRAS 09/02/2024 REASON FOR EXAM: NECK PAIN TECHNIQUE: CT cervical spine was performed without IV contrast. Multiplanar reformats were generated. One or more dose reduction techniques were used (e.g., Automated exposure control, adjustment of the mA and/or kV according to patient size, use of iterative reconstruction technique COMPARISON: None. RADIATION DOSE SUMMARY: CTDlvol: 23.75 mGy DLP: 466.94 mGycm FINDINGS: Cervical vertebral body heights are preserved. No cervical spinal fracture or acute malalignment identified. Straightening of normal cervical lordosis may be degenerative, positional, or related to pain/muscular spasm. Trace likely degenerative anterolisthesis at C3-C4. Generalized small caliber of the spinal canal on a congenital basis. Additional level by level findings as below, suboptimally delineated by CT: C2-3: Disc height loss with tiny posterior disc/osteophyte complex. No significant spinal canal or foraminal stenosis evident by CT. C3-4: Disc height loss with mild bulging. No significant spinal canal or foraminal stenosis evident by CT. C4-5: Disc height loss with diffuse disc bulging and superimposed posterior central disc protrusion with inferior migration and disc/osteophyte complex, largest in the right foraminal region. At least moderate spinal canal stenosis. Mild uncovertebral arthropathy. Bony foraminal stenoses are at least mild on the left and mild/moderate on the right. C5-6: Severe loss of disc height with diffuse disc bulging and disc/osteophyte complex. Mild uncovertebral arthropathy. At least moderate focal spinal canal stenosis. Foraminal stenoses are at least moderate on the right and mild/moderate on the left. C6-7: Klnobovc-gr-altzfb loss of disc height with diffuse disc bulging and small disc/osteophyte complex. Mild uncovertebral arthropathy. At least mild/moderate focal spinal canal stenosis. No significant bony foraminal stenosis. C7-T1: Mild/moderate disc height loss. No significant spinal canal or foraminal stenosis evident by CT. CT/Spine Cervical without Contras IMPRESSION: 1. No acute cervical spinal fracture or malalignment identified. 2. Multilevel spondylosis as detailed, suboptimally delineated by CT. Spinal canal stenoses up to at least moderate at C4-C6. Bony foraminal stenoses up to at least moderate. Consider outpatient MRI as indicated. 3. Additional description as above. Reading Location: [id number] CC: Dr. Sophie Huitron MD; Dr. Ulysses Ceballos DO Duck Farmer: Signed Normal [facility] Neurology Visit Reporton Neurology Visit Report [facility] [address], [address] [place] [address] OFFICE VISIT Date of Service: 08/13/24 MR#: [id number] Acct: [id number] Name: JODIE CHILEL Rep #: [id number] : 1970 Provider: Dr. Efe holloway MD Age/Sex: 54/F Location: [facility] [place] Status: Signed [facility] Chief Complaint: Establish Care Details: The patient is a 54-year-old right handed female who presents to [facility]. She was referred 07/09/[address] Sophie Huitron with [facility] for migraines. This lady presents for evaluation by herself. Nurse practitioner Jodie Hills is also present for evaluation. This patient is referred for evaluation of headache. Patient says that she had the onset of headache 1 morning about 6 months ago. She reports that it is 10/10 severe type headache. She reported photophobia phonophobia and 1 episode of perhaps nausea with vomiting. She describes the headache as pounding. She indicates that it is always worse when she is in a sitting or standing position and relieved when she lays down. Patient does not have a prior history of headache. Patient reports an associated symptom may be the initiation of headache with neck pain indicating possible cervicalgia. She feels that it begins in her mid neck and radiates over the top of her head at times. Patient is not a hypertensive patient. Patient has had prior lumbar surgery in 2021 with fusion noted. There is no mention of CSF leak recorded. Patient is a diabetic. Patient is on total disability for psychiatric issues. Patient had been given Inderal 10 mg as a trial to treat the headache. She was then initiated on Monday. Patient is also on Topamax for management of headache and is currently on 50 p.o. nightly. Patient indicates no benefit of these medications. Patient has history of amblyopia affecting the left eye. She has had least 2 corrective surgeries. Patient has had no loss of vision or other visual phenomenon at the moment. She is complaining of a severe headache at the time I am seeing her although she is able to carry out various activities during examination. ROS: HEENT: Headache without trauma. Eyes history of amblyopia. Ears intact. Oropharynx benign. Respiratory: No shortness of breath cough or hemoptysis. Prone to bronchitis. Asthma. Cardiac: No chest pain or palpitations. Abdomen: No abdominal pain or vomiting blood. No passing blood in stool. History of liver cirrhosis. : No hematuria. Extremities: Without evidence of trauma or active inflammatory arthritis Skin: Intact without active rashes. Neurologic: Possible history of strokes History of diabetes and thyroid disease. Also diabetic neuropathy on Lyrica. Also endometrial cancer with hysterectomy curative. Patient may be going through menopause Exam Const Other: BP 112/76 pulse 94 respiration 17 temperature 98.0 O2 sat 95%. BMI is 41. (Patient contemplating GLP-1 inhibitor) General Appearance is that a lady who appears comfortable in chair but complaining of 10/10 headache. Respiratory clear to auscultation: Cardiac no arrhythmia or murmur heard Abdomen obese Neurologic examination: Mental status: Awake alert oriented memory was 0 for 3. 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 No obvious delusions or hallucinations noted at the moment. CN II-XII: Pupils do appear to be equal and round. Minimal reactivity. Approximately 4 mm. Visual sue did appear to be full on confrontation. Patient reported no visual field defects. Patient has mild alternating exotropia consistent with history of prior amblyopia corrective surgery for strabismus. Symmetric facial sensation expression. Hearing appeared to be intact. Swallowing phonation and tongue appeared normal. Motor exam: No focal weakness observed. Cerebellar testing: Normal finger-nose maneuvers. No cogwheeling rigidity tremor or bradykinesia. Reflexes trace at biceps 1+ at the knees. Sensory exam intact to tactile and vibratory sense in the hands but decreased modestly in both lower extremities. Below the knee. Patient's neck appeared to have full range of motion although she complained that her headaches originated mid cervical spine. Patient had complained of headache in the standing position but complete resolution of headache when she was lying flat. Headache quality was throbbing and took a few moments to clear while lying down. Patient did not have an orthostatic drop although this was checked twice. Pressure was 106/78 while lying down. Heart rate was 84. Standing blood pressure is 112/80. Heart rate was 88. Assessment and Plan Assessment and Plan (1) Orthostatic headache: Status: Suspected Comment: She gives a history suggestive of orthostatic headache but character and in office performance had some inconsistencies. Plan: 1. MRI of brain will be obtai (more content not included)... Normal [facility] Emergency Department Summary on 07-22-2024 Emergency Department Summary [facility] Medical Records Department [address] [place] [address] Emergency Department Summary 07/22/24 MR#: [id number] Acct: [id number] Name: JODIE CHILEL Rep #: [id number] : 1970 54 From: Patrick Manrique DO PCP: Dr. Sophie Huitron MD Status:REG ER Location: ED HPI History of Present Illness Chief Complaint: Headache Narrative Narrative: Patient is a 54-year-old female past medical history of anxiety, depression, diabetes, migraine headache, JAELYN, bipolar disorder, hypothyroidism who presents to the emergency department with a chief complaint of migraine headache. States that last night before she went to bed she had a migraine headache and noted that when she woke up the headache progressively worsened throughout the day. States that she tried to take her migraine headache medications that she had at home and were not helping her therefore she came here further evaluation management. Patient denies any sick contacts. Patient did state that she did vomited once secondary to the pain. [facility] Medical History History of tobacco use Encounter for screening for malignant neoplasm of lung Chronic headaches Diabetes Chronic pain Endometrial polyp Wears glasses Depression Anxiety Alcohol use Arthritis High cholesterol Injury of back Migraine headache Smoker CPAP (continuous positive airway pressure) dependence Sleep apnea History of stress test Hypertension Diabetes mellitus type 2 in obese Hypothyroidism Bipolar disorder Asthma Home Medications ???Medication ???Instructions ???Recorded ???Last Taken ???Type atorvastatin 10 mg tablet 10 mg PO DAILY cholesterol lowerin g 02/27/16 09/04/18 11:00 History levothyroxine 25 mcg tablet 25 mcg PO DAILY thyroid 02/27/16 0 01/28/21 08:00 History albuterol sulfate 90 mcg/actuation 2 puff inhalation Q4H PRN PRN 08/29/18 15:00 History aerosol inhaler (ProAir HFA) shortness of breath metformin 1,000 mg tablet 1,000 mg PO BID blood sugar 09/04/18 22:00 History insulin glargine 100 unit/mL (3 18 unit SQ BREAKFAST 05/10/19 Unkn own History mL) subcutaneous pen alpha lipoic acid 600 mg capsule 600 mg PO DAILY 01/21/21 Unknown H istory ipratropium bromide 17 1 inh inhalation DAILY 01/21/21 Un known History mcg/actuation HFA aerosol inhaler (Atrovent HFA) trazodone 300 mg tablet 300 mg PO QHS 01/21/21 Unknown His tory vitamin B12 1 mg-folic acid 0.8 mg 1 tab PO DAILY 01/21/21 Unknown History tablet dulaglutide 0.75 mg/0.5 mL 1.5 mg subcut QWEEK #2 mL 08/05/23 Unknown Rx subcutaneous pen injector (Trulicity) pregabalin 150 mg capsule 150 mg PO BID 01/03/24 Unknown His tory topiramate 25 mg tablet 25 mg PO QHS headache 01/03/24 Unk nown History topiramate 50 mg tablet 50 mg PO QHS 01/03/24 Unknown Hist ory trospium 20 mg tablet 20 mg PO QHS 01/03/24 Unknown Hist ory ondansetron 4 mg disintegrating 4 mg PO Q8H PRN PRN Nausea #10 tab s 01/10/24 Unknown Rx tablet dicyclomine 10 mg capsule 10 mg PO TID #30 caps 03/28/24 Unk nown Rx ondansetron 4 mg disintegrating 4 mg PO Q6H PRN nausea and 4 Unknown Rx tablet vomiting #20 tabs hydrocodone-acetaminophen 5-325mg 1 tab PO Q4H PRN PRN Pain 2 days 06/15/24 Unknown Rx 5mg-325mg #10 TABLETS prednisone 20 mg tablet 20 mg PO BID #10 tabs 06/15/24 Unk nown Rx ondansetron 4 mg disintegrating 4 mg PO Q6H PRN nausea and 5 Unknown Rx tablet vomiting #20 tabs Allergy/AdvReac Type Severity Reaction Status Date / Time latex Allergy Hives Verified 06/21/24 10:24 hydromorphone (From Dilaudid) AdvReac Vomiting Verified 06/21/24 10:24 Surgical History S/P hysterectomy History of appendectomy History of cholecystectomy History of back surgery Previous back surgery Hx of appendectomy History of cholecystectomy Social History Smoking Status: Light Smoker (<10/day) substance use type: does not use ROS ROS ED ROS Narrative Constitutional:complains of headache as noted above Denies any fevers, chills, lightness, dizziness Eyes: Denies change in vision double vision Cardiovascular: Denies chest pain Respiratory: Denies coughing wheezing shortness of breath Abdomen: Admits to nausea vomiting as noted above but denies any abdominal pain or diarrhea : Denies any urinary symptoms Neurological: Denies any numbness, weakness, tingling Musculoskeletal: Denies back pain Skin: Denies any rashes or lesions EXAM Physical Exam Narrative Exam Narrative: General: Patient is lying in bed did appear to be uncomfortable secondary to her headache Head: Atraumatic, no (more content not included)... Normal [facility] Orthopedic Visit Reporton Orthopedic Visit Report [facility] [facility] [address] [address] [place] [address] OFFICE VISIT Date of Service: 06/21/24 MR#: [id number] Acct: [id number] Name: JODIE CHILEL Rep #: [id number] : 1970 Provider: Dr. Efe mcgrath DO Age/Sex: 53/F Location: [facility] [place].JOSE Status: Signed Intake Vital Signs 06/15/24 08:58 06/17/24 13:49 Height 5 ft 5 ft Intake Visit Reasons: BILATERAL WRISTS Chief Complaint: Bilateral Wrist Pain Accompanied by: Self Is patient in pain?: Yes Pain scale (1-10): 8 Allergies latex Allergy (Verified 06/21/24 10:24) Hives hydromorphone (From Dilaudid) Adverse Reaction (Verified 06/21/24 10:24) Vomiting Medications ???Medication ???Instructions ???Recorded ???Confirmed ???Type atorvastatin 10 mg tablet 10 mg PO DAILY cholesterol lowering 02/27/16 06/21/24 History levothyroxine 25 mcg tablet 25 mcg PO DAILY thyroid 02/27/16 06/21/24 History albuterol sulfate 90 mcg/actuation 2 puff inhalation Q4H PRN PRN 03/23/18 06/21/24 History aerosol inhaler (ProAir HFA) shortness of breath metformin 1,000 mg tablet 1,000 mg PO BID blood sugar 03/23/18 06/21/24 History insulin glargine 100 unit/mL (3 18 unit SQ BREAKFAST 05/10/19 06/21/24 History mL) subcutaneous pen alpha lipoic acid 600 mg capsule 600 mg PO DAILY 01/21/21 06/21/24 History ipratropium bromide 17 1 inh inhalation DAILY 01/21/21 06/21/24 History mcg/actuation HFA aerosol inhaler (Atrovent HFA) trazodone 300 mg tablet 300 mg PO QHS 01/21/21 06/21/24 History vitamin B12 1 mg-folic acid 0.8 mg 1 tab PO DAILY 01/21/21 06/21/24 History tablet dulaglutide 0.75 mg/0.5 mL 1.5 mg subcut QWEEK #2 mL 08/05/23 06/21/24 Rx subcutaneous pen injector (Trulicity) pregabalin 150 mg capsule 150 mg PO BID 01/03/24 06/21/24 History topiramate 25 mg tablet 25 mg PO QHS headache 01/03/24 06/21/24 History topiramate 50 mg tablet 50 mg PO QHS 01/03/24 06/21/24 History trospium 20 mg tablet 20 mg PO QHS 01/03/24 06/21/24 History ondansetron 4 mg disintegrating 4 mg PO Q8H PRN PRN Nausea #10 tabs 01/10/24 06/21/24 Rx tablet dicyclomine 10 mg capsule 10 mg PO TID #30 caps 03/28/24 06/21/24 Rx ondansetron 4 mg disintegrating 4 mg PO Q6H PRN nausea and 03/28/24 06/21/24 Rx tablet vomiting #20 tabs hydrocodone-acetaminophen 5-325mg 1 tab PO Q4H PRN PRN Pain 2 days 06/15/24 06/21/24 Rx 5mg-325mg #10 TABLETS prednisone 20 mg tablet 20 mg PO BID #10 tabs 06/15/24 06/21/24 Rx PFSH Medical History History of tobacco use Encounter for screening for malignant neoplasm of lung Chronic headaches Diabetes Chronic pain Endometrial polyp Wears glasses Depression Anxiety Alcohol use Arthritis High cholesterol Injury of back Migraine headache Smoker CPAP (continuous positive airway pressure) dependence Sleep apnea History of stress test Hypertension Diabetes mellitus type 2 in obese Hypothyroidism Bipolar disorder Asthma Surgical History S/P hysterectomy History of appendectomy History of cholecystectomy History of back surgery Previous back surgery Hx of appendectomy History of cholecystectomy Social History Smoking Status: Former smoker substance use type: does not use HPI BILATERAL WRISTS Details: This documentation accurately reflects the service provided and the decisions made by me, Dr. Efe Pryor DO 06/21/24 0810. Part of today???s visit was documented by Marietta SEVILLA, acting as scribe. JODIE CHILEL is a 53 year old obese F, with medical history significant for but not limited to insulin-dependent diabetes mellitus tobacco abuse, here today for bilateral wrist pain. Patient states she had a couch dropped on the right wrist 05/31/2024. She did go to the emergency department x-rays were taken which demonstrated no acute findings of her forearm. Then on this past Monday patient went to the ER. She also having similar pains in her left wrist with no trauma to it ,patient was given steroids at this time. Patient states Monday night the left wrist swelled up and was super painful and she went to [facility] and they did an ultrasound and blood work to check for blood clots. She states everything came back normal except blood work for her diabetes was high due to her taking the steroids. She states she did not finish the steroids due to the blood work coming back higher. She has been wearing a brace on the right wrist since it started bothering her 3 weeks ago and she started wearing a brace on the left wrist that [place] gave her. Patient denies numbness/tingling. Patient states the whole left wrist bothers her and goes all t (more content not included)... Normal [facility] Wrist min 3 Viewson 06-21-19 25 Wrist min 3 Views [facility] [address] [place] [address] Wrist min 3 Views MR#: [id number] Acct: [id number] Name: JODIE CHILEL Rep #: [id number] : 1970 F 53 From: Osiel Luis PCP: Dr. Sophie Huitron MD Status: DEP AMB Study: Wrist min 3 Views Date of Exam: 06/21/24 Exam# [id number] Ordering Dr: Efe Pryor DO [id number] INDICATION: Pain EXAMINATION/TECHNIQUE: X-RAY - RIGHT XR Wrist Min 3 Views 3 VIEWS COMPARISON: RIGHT hand dated 10/10/2017 FINDINGS: SOFT TISSUES: No soft tissue swelling or gas. No radiopaque foreign body. BONES/JOINTS: No acute fracture or subluxation.. Normal alignment. Preservation of the joint space.. No sclerotic or destructive changes observed. RAD/Wrist min 3 Views IMPRESSION: 1. No evidence fracture, malalignment or focal bony or joint space abnormality. Electronically Signed: Osiel Figueroa MD at 0:29 EST , CC: Dr. Sophie Huitron MD; Dr. Efe Pryor DO Duck Farmer: Signed Normal [facility] Wrist min 3 Views [facility] [address] [place] [address] Wrist min 3 Views MR#: [id number] Acct: [id number] Name: JODIE CHILEL Rep #: [id number] : 1970 F 53 From: Osiel Luis PCP: Dr. Sophie Huitron MD Status: DEP AMB Study: Wrist min 3 Views Date of Exam: 06/21/24 Exam# [id number] Ordering Dr: Efe Pryor DO [id number] INDICATION: Pain EXAMINATION/TECHNIQUE: X-RAY - LEFT XR Wrist Min 3 Views 3 VIEWS COMPARISON: No relevant prior comparison study available FINDINGS: SOFT TISSUES: No soft tissue swelling or gas. No radiopaque foreign body. BONES/JOINTS: No acute fracture or subluxation.. Normal alignment. Preservation of the joint space.. No sclerotic or destructive changes observed. RAD/Wrist min 3 Views IMPRESSION: 1. No evidence fracture, malalignment or focal bony or joint space abnormality. Electronically Signed: Osiel Figueroa MD at 0:30 EST , CC: Dr. Sophie Huitron MD; Dr. Efe Pryor DO Duck Farmer: Signed Normal [facility] ED MED ADMINISTRATION DETAIL on 06-16-2024 ED MED ADMINISTRATION DETAIL Donor Recruiter Medication Administration Record [place] [address] [place] [address] [id number] 06/15/2024 Patient: JODIE CHILEL Sex: Female : 1970 Age: 53y MEASUREMENTS: Wt: 95.3 kg, Ht/Shane: 60.0 in, BMI: 41.01 ALLERGIES: Dilaudid, latex Medication Ordered Medication Administration Date/Time Ibuprofen (Motrin) 21:45 06/15 Ibuprofen (Motrin) PO 600 mg given. Allergies verified Given PO 600 mg (NOW and confirmed 5 rights. Information reviewed with patient including 21:45 06/15/2024 x1) reason for taking this medication, signs of allergic reaction and Candice precautions. Verbalizes understanding. - 21:45 Yair Turner RCiarraN. Not Scanned Ondansetron ODT 21:45 06/15 Ondansetron ODT PO 4 mg given. Allergies verified Given PO 4 mg (NOW x1) and confirmed 5 rights. Information reviewed with patient including 21:45 06/15/2024 reason for taking this medication, signs of allergic reaction and Candice precautions. Verbalizes understanding. - 21:45 Yair Turner RJcarlos Not Scanned OxyCODONE PO 5 22:44 06/15 OxyCODONE PO 5 mg given. Allergies verified and Given mg (NOW x1, HIGH confirmed 5 rights. Information reviewed with patient including 22:44 06/15/2024 ALERT sedative warning. Verbalizes understanding. - 22:45 Crystal Crystal Yair Bills MEDICATION) Negar, R.N. Scanned 1 of 1 Normal [facility] ED NURSES CLINICAL NOTEon ED NURSES CLINICAL NOTE Nurse Narrative Nurse Clinical Narrative [facility] [address] [place] [address] [phone] 06/15/2024 Patient: JODIE CHILEL Sex: Female : 1970 Age: 53y Disposition: Discharge to Home Disposition Decision Time: 23:39 06/15/2024 Departure Time: 23:40 06/15/2024 TRIAGE Arrived by private vehicle. Historian: patient. Triage time: 20:50 06/15/2024. Acuity: LEVEL 3. Chief Complaint: RIGHT UPPER EXTREMITY PAIN and SWELLING. LEFT UPPER EXTREMITY PAIN and SWELLING. No injury occurred. This started today. It is described as radiating to the right upper extremity and shoulder and left upper extremity, upper arm and hand. 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 Splinting applied by [facility]. SEPSIS SCREEN: NEGATIVE. SIRS criteria negative. No possible sources of infection. (21:02 06/15/2024). -- 21:02 06/15/24 GORDY Cowan R.N. 20:58 06/15/24. BP: 146/85 (regular cuff) taken on left arm, while lying. MAP: 105. HR: 83. RR: 18. O2 saturation: 94% Temperature: 98.1 F (oral). Pain level now 8/10. Describes the pain as throbbing. Intermittent. -- 21:02 06/15/24 GORDY Cowan R.N. Measurements: 21:02 06/15/24 Wt: 95.3 kg, Ht/Shane: 60.0 in, BMI: 41.01 -- 21:02 06/15/24 GORDY Cowan R.N. 1 of 5 Nurse Narrative Medications: FreeStyle Jalil 14 Day Sensor kit -- 21:10 06/15/24 GORDY Cowan R.N. Trulicity 1.5 mg/0.5 mL subcutaneous pen injector -- 21:10 06/15/24 GORDY Cowan R.N.Updated through eRx -- 21:19 06/15/24 GORDY Cowan R.N. Vitamin B-12 1,000 mcg tablet: TAKE 1 TABLET BY MOUTH EVERY OTHER DAY -- 21:10 06/15/24 GORDY Cowan R.N.Updated through eRx -- 21:06/15/24 GORDY Cowan R.N. Trintellix 20 mg tablet -- 21:10 06/15/24 GORDY Cowan R.N.Updated through eRx -- 21:06/15/24 GORDY Cowan R.N. trospium 20 mg tablet -- 21:10 06/15/24 GORDY Cowan R.N.Updated through eRx -- 21:06/15/24 GORDY Cowan R.N. trazodone 300 mg tablet -- 21:10 06/15/24 GORDY Cowan R.N.Updated through eRx -- 21:06/15/24 GORDY Cowan R.N. topiramate 50 mg tablet -- 21:06/15/24 GORDY Cowan R.N.Updated through eRx -- 21:06/15/24 GORDY Cowan R.N. pregabalin 150 mg capsule -- 21:06/15/24 GORDY Cowan R.N.Updated through eRx -- 21:06/15/24 GORDY Cowan R.N. prednisone 20 mg tablet -- 21:06/15/24 GORDY Cowan R.N.Updated through eRx -- 21:06/15/24 GORDY Cowan R.N. magnesium oxide 500 mg capsule -- 21:06/15/24 GORDY Cowan R.N.Updated through eRx -- 21:06/15/24 GORDY Cowan R.N. levothyroxine 25 mcg tablet -- 21:10 06/15/24 GORDY Cowan R.N.Updated through eRx -- 21:06/15/24 GORDY Cowan R.N. hydrocodone 5 mg-acetaminophen 325 mg tablet -- 21:10 06/15/24 GORDY Cowan R.N.Updated through eRx -- 21:06/15/24 GORDY Cowan R.N. atorvastatin 10 mg tablet -- 21:06/15/24 GORDY Cowan R.N.Updated through eRx -- 21:19 06/15/24 GORDY Cowan R.N. alpha lipoic acid 600 mg capsule -- 21:06/15/24 GORDY Cowan R.N.Updated through eRx -- 21:06/15/24 GORDY Cowan R.N. Trulicity 1.5 mg/0.5 mL subcutaneous pen injector: 1 pen injector once a week. -- 21:06/15/24 GORDY Cowan R.N. Vitamin B-12 1,000 mcg tablet: 1 tablet once a day. -- 21:06/15/24 GORDY Cowan R.N. Trintellix 20 mg tablet: 1 tablet once a day. -- 21:19 06/15/24 GORDY Cowan R.N. trospium 20 mg tablet: 1 tablet every night at bedtime. -- 21:06/15/24 GORDY Cowan R.N. trazodone 300 mg tablet: 1 tablet every night at bedtime. -- 21:19 06/15/24 GORDY Cowan R.N. topiramate 50 mg tablet: 1 tablet every night at bedtime. -- 21:19 06/15/24 GORDY Cowan R.N. pregabalin 150 mg capsule: 1 capsule twice a day. -- 21:19 06/15/24 GORDY Cowan R.N. prednisone 20 mg tablet: 1 tablet twice a day. -- 21:19 06/15/24 GORDY Cowan R.N. 2 of 5 Nurse Narrative magnesium oxide 500 mg capsule: 1 mg once a day. -- 21:19 06/15/24 GORDY Cowan R.N. levothyroxine 25 mcg tablet: 1 tablet once a day. -- 21:19 06/15/24 GORDY Cowan R.N. hydrocodone 5 mg-acetaminophen 325 mg tablet: 1 tablet every four hours as needed for pain. -- 21:06/15/24 GORDY Cowan R.N. atorvastatin 10 mg tablet: 1 tablet once a day. -- 21:06/15/24 GORDY Cowan R.N. alpha lipoic acid 600 mg capsule: 1 capsule once a day. -- 21:06/15/24 GORDY Cowan R.N. Allergies: Dilaudid -- 20:53 12 (more content not included)... Normal [facility] ED ORDER SHEET (CPOE ONLY)on 06-16-2024 ED ORDER SHEET (CPOE ONLY) Order Sheet Order Sheet [address] [address] [id number] 06/15/2024 Patient: JODIE CHILEL Sex: Female : 1970 Age: 53y MEASUREMENTS: Wt: 95.3 kg, Ht/Shane: 60.0 in, BMI: 41.01 ALLERGIES: Dilaudid, latex MEDICATION/IV/DRIP/FLUID ORDERS Order Description Priority Entered Acknowledged Completed Ibuprofen (Motrin) PO600 mg 21:07 06/15/2024 21:22 21:45 (NOW x1) Juliet Tan M.D. 06/15/2024 06/15/2024 Camryn Kramer R.N. R.N. Ondansetron ODT PO4 mg 21:07 06/15/2024 21:22 21:45 (NOW x1) Juliet Tan M.D. 06/15/2024 06/15/2024 Camryn Kramer R.N. R.N. OxyCODONE PO5 mg (NOW x1, 22:38 06/15/2024 22:45 HIGH ALERT MEDICATION) Juliet Tan M.D. 06/15/2024 Alida Bills R.N. Reason for ordering with alerts: Benefits outweigh risks --22:38 06/15/2024 Juliet Tan M.D. LAB ORDERS 1 of 2 Order Sheet Order Description Priority Entered Acknowledged Collected Completed CBC w Diff Stat Stat 21:07 06/15/2024 21:21 06/15/2024 21:46 06/15/2024 Candice Avitia M.D., [place], R.N. R.N. CMP Stat Stat 21:07 06/15/2024 21:21 06/15/2024 21:46 06/15/2024 Candice Avitia M.D., [place], R.N. R.N. TSH Stat Stat 21:07 06/15/2024 21:21 06/15/2024 21:46 06/15/2024 Candice Avitia M.D., Deusenberry, R.N. R.NCiarra DIAGNOSTIC STUDY ORDERS Order Description Priority Entered Acknowledged Completed STAFF ORDERS Order Description Priority Entered Acknowledged Collected Completed Splint (UE) 22:38 06/15/2024 22:47 06/15/2024 23:03 06/15/2024 Quentin Avitia, Chris AguillonMCiarraTCiarra-P. Dona-PCiarra [Electronically signed by Juliet Tan M.D. (06/15/2024 23:36 EST)] 2 of 2 Normal [facility] ED PHYSICIAN CLINICAL REPORT on 06-16-2024 ED PHYSICIAN CLINICAL REPORT Narrative Physician Clinical Narrative [address] [address] [id number] 06/15/2024 Patient: JODIE CHILEL Sex: Female : 1970 Age: 53y Measurements Wt: 95.3 kg, Ht/Shane: 60.0 in, BMI: 41.01 Initial Vital Sign Measured Time BP MAP HR RR O2Sat ETCO2 Temp Pain GCS RTS 20:58 06/15/2024 146/85 105 83 18 94% 98.1 F 8 Time Seen: 22:34 06/15/2024. Arrived- By ambulance. Historian- patient. HISTORY OF PRESENT ILLNESS Chief Complaint: Injury. (b/l hand pain). The injury happened today. Occurred at home. ( Guerra erythema and pain of the palmar surface of the bilateral hands. Was seen earlier at [facility] for erythema and pain of the right hand. In the interim has developed same symptoms in the left hand so presented for evaluation and 2nd opinion. There they advised that this may represent gout and started patient on prednisone and [place]. Per patient she does not have a history of gout. Denies fever, chills. Denies any new exposures or use of chemicals for cleaning, etc.. Denies any history of autoimmune disease. Denies injury to the hands.). Patient is experiencing moderate pain. No other injury. REVIEW OF SYSTEMS SKIN: No skin laceration. NEUROLOGICAL: No tingling, numbness or weakness. MUSCULOSKELETAL: The patient has had swelling. 1 of 9 Narrative PAST HISTORY The patient's dominant hand is the right. The patient has not had a prior injury to the same area. Tetanus immunization status is up-to-date. Diabetes Mellitus Type 2 Surgeries: Appendectomy Cholecystectomy Hysterectomy right arm Medications: alpha lipoic acid 600 mg capsule: 1 capsule once a day. atorvastatin 10 mg tablet: 1 tablet once a day. FreeStyle Jalil 14 Day Sensor kit hydrocodone 5 mg-acetaminophen 325 mg tablet: 1 tablet every four hours as needed for pain. levothyroxine 25 mcg tablet: 1 tablet once a day. magnesium oxide 500 mg capsule: 1 mg once a day. prednisone 20 mg tablet: 1 tablet twice a day. pregabalin 150 mg capsule: 1 capsule twice a day. topiramate 50 mg tablet: 1 tablet every night at bedtime. trazodone 300 mg tablet: 1 tablet every night at bedtime. Trintellix 20 mg tablet: 1 tablet once a day. trospium 20 mg tablet: 1 tablet every night at bedtime. Trulicity 1.5 mg/0.5 mL subcutaneous pen injector: 1 pen injector once a week. Vitamin B-12 1,000 mcg tablet: 1 tablet once a day. Allergies: Dilaudid latex SOCIAL HISTORY Smoker- current status unknown. No alcohol use or drug use. No recent travel. 2 of 9 Narrative ADDITIONAL NOTES The nursing notes have been reviewed. PHYSICAL EXAM Vital Signs: Have been reviewed. Appearance: Alert. Oriented X3. Appears to be in pain. Head: Head atraumatic. Eyes: Pupils equal, round and reactive to light. Eyes normal inspection. ENT: Ears normal. Nose normal. Neck: Normal inspection. Neck supple. CVS: Normal heart rhythm and rate. Heart sounds normal. Respiratory: No respiratory distress. Breath sounds normal. Chest nontender. Abdomen: No visible injury. Soft and nontender. Back: No tenderness. Normal inspection. Skin: Skin warm. Skin intact. (Erythema as previously described. 2+ radial pulses bilaterally.). Extremities: (Erythema and soft tissue tenderness of the palmar surface of bilateral hand and digits. Erythema does involve the tips of all digits of both hands. Nails do not appear to be involved. There are no vesicular lesions or other wounds. Redness does not cross the wrist.). Extremities otherwise negative. ( No erythema or pain of the bilateral feet including the soles.). Neuro, Vascular and Tendons: Sensation intact. (Motor is limited by pain but is intact in radial, median, ulnar distributions.). LABS, X-RAYS, AND EKG Laboratory Tests: CBC + DIFF Final KARISSA: 06/15/2024 21:35:00 EST MsgRcvd: 06/15/2024 21:51 EST Lab Test Result Reference Status Received Comments 06/15/2024 21:51 CBC-COMPLETE CBC + DIFF Final EST BLOOD COUNT 3 of 9 Narrative 06/15/2024 21:51 WBC 7.8 x 10/UL 4.5 - 10.8 Final EST 06/15/2024 21:51 RBC 4.92 x 10/UL 4.10 - 5.30 Final EST 06/15/2024 21:51 HEMOGLOBIN 14.7 g/dl 12.0 - 16.0 Final EST 06/15/2024 21:51 HEMATOCRIT 43.2 % 34.0 - 46.0 Final EST 06/15/2024 21:51 MCV 88 fl 80 - 99 Final EST 06/15/2024 21:51 MCH 30 pg 27 - 33 Final EST 06/15/2024 21:51 MCHC 34 X10 3 32 - 36 Final EST 06/15/2024 21:51 RDW/CV 14.3 % 12.0 - 15.6 Final EST 06/15/2024 21:51 PLATELET 186 x10/UL 150 - 450 Final EST 06/15/2024 21:51 AUTOMATED MPV 8.4 fl 6.6 - 10.5 Final EST DIFFERENTIAL 84.7 % 06/15/2024 21:51 NEUT % 46.0 - 76.0 Final Above high normal EST 13.3 % 06/15/2024 21:51 LYMPH % 20.0 - 45.0 Final Below low normal EST 06/15/2024 21:51 MON (more content not included)... Normal [facility] ED SUPER BILLon 06-16-2024 ED SUPER BILL [address] [address] [id number] 06/15/2024 Patient: JODIE CHILEL Sex: Female : 1970 Age: 53y Item Facility Professional Category Description Code Code Quantity Fee Total Nurse/E/M EMERGENCY 679222 1 $0.00 $0.00 DEPARTMENT VISIT MODERATE SEVERITY (44417-65) Physician/Procedures Splint - Fingers 734128 1 $0.00 $0.00 (44256-JL) Grand Total $0.00 Providers Juliet Tan M.D. Chief Complaint Injury. (b/l hand pain). Principal Diagnosis Acute nontraumatic pain in the right upper extremity (hand) and left upper extremity (hand). 1 of 2 [facility] ICD-10 Codes M79.641: Pain in right hand M79.642: Pain in left hand 2 of 2 Normal [facility] ED VISIT SUMMARYon ED VISIT SUMMARY Visit Overview Visit Overview [address] [address] [id number] 06/15/2024 Patient: JODIE CHILEL Sex: Female : 1970 Age: 53y 06/16/2024 04:40 AM EST ED Arrival:19:23 06/15/2024 EST Status:not Recent Travel:no Language:eng Adv Directive: Isolation Status: Ethnicity:N Fall Risk:no risk Infectious Disease Exposure:no Measurements:5' / 152.4 Self-Harm Status:risk Sepsis Screen:negative cm 210.0 lb / 95.3 kg Chief Complaint:LEFT UPPER EXTREMITY PAIN, LEFT UPPER EXTREMITY SWELLING, RIGHT UPPER EXTREMITY PAIN, RIGHT UPPER EXTREMITY SWELLING, (21:02 06/15/2024), and ([facility]) ALLERGIES Dilaudid latex HOME MEDICATIONS alpha lipoic acid 600 mg capsule: 1 capsule once a day. 1 4 Visit Overview atorvastatin 10 mg tablet: 1 tablet once a day. FreeStyle Jalil 14 Day Sensor kit hydrocodone 5 mg-acetaminophen 325 mg tablet: 1 tablet every four hours as needed for pain. levothyroxine 25 mcg tablet: 1 tablet once a day. magnesium oxide 500 mg capsule: 1 mg once a day. prednisone 20 mg tablet: 1 tablet twice a day. pregabalin 150 mg capsule: 1 capsule twice a day. topiramate 50 mg tablet: 1 tablet every night at bedtime. trazodone 300 mg tablet: 1 tablet every night at bedtime. Trintellix 20 mg tablet: 1 tablet once a day. trospium 20 mg tablet: 1 tablet every night at bedtime. Trulicity 1.5 mg/0.5 mL subcutaneous pen injector: 1 pen injector once a week. Vitamin B-12 1,000 mcg tablet: 1 tablet once a day. PAST MEDICAL HISTORY / PROBLEMS Diabetes Mellitus Type 2 Immunizations: up-to-date Tetanus immunization status is up-to-date The patient's dominant hand is the right PAST SURGICAL HISTORY Appendectomy Cholecystectomy Hysterectomy right arm SOCIAL HISTORY Smoking status: Yes Alcohol use: Yes Drug use: No ED COURSE MEDICATIONS GIVEN IN EMERGENCY DEPARTMENT 21:45 06/15/24 Ibuprofen (Motrin) PO 600 mg 4 Visit Overview 21:45 06/15/24 Ondansetron ODT PO 4 mg 22:44 06/15/24 OxyCODONE PO 5 mg IV SITE INFORMATION INTAKE OUTPUT REASSESMENT (most recent) 21:50 06/15/24. To room via wheelchair. GENERAL / NEURO / PSYCH: Oriented X 4. Alert. Appears in no acute distress. The patient has weakness. No numbness. CVS: Capillary refill is greater than 2 seconds. EXTREMITIES: Limited ROM present. Non-pitting edema of the upper extremities. No increased warmth on the extremities. No extremity drainage. Right hand: tenderness and swelling. Left hand: tenderness and swelling. ( Patient present to ER with c/o severe pain in her b/l hands. Patient was seen and diagnosed with Gout at [facility] earlier today for pain in her right hand. She states that her left hand started to hurt this evening. She reports difficulty moving her fingers on both hands due to the pain and swelling. She had mild edema to her hands. B/l hands are tender to touch, and pain radiates from her hands to her shoulders.). SKIN: No extremity wound. Skin intact. Skin is warm and dry. VITAL SIGNS First Vitals Last Vitals Temp 20:58 06/15/24 98.1 F Temp 23:41 06/15/24 BP 20:58 06/15/24 146/85 BP 23:41 06/15/24 125/73 HR 20:58 06/15/24 83 HR 23:41 06/15/24 66 RR 20:58 06/15/24 18 RR 23:41 06/15/24 O2 Sat 20:58 06/15/24 94% O2 Sat 23:41 06/15/24 Pain 20:58 06/15/24 8 Pain 23:41 06/15/24 ETCO2 20:58 06/15/24 ETCO2 23:41 06/15/24 GCS 20:58 06/15/24 GCS 23:41 06/15/24 RTS 20:58 06/15/24 RTS 23:41 06/15/24 PROCEDURES NURSING INTERVENTIONS Splint 3 of 4 Visit Overview LABS / STUDIES LABS / STUDIES ORDERED CBC w Diff CMP TSH CLINICAL IMPRESSION ACUTE NONTRAUMATIC PAIN IN THE RIGHT UPPER EXTREMITY (HAND) AND LEFT UPPER EXTREMITY (HAND) 4 of 4 Normal [facility] ED VITALS FLOW SHEETon 06-16 ED VITALS FLOW SHEET Vitals Vital Sign Flow Sheet [address] [place] [address] [phone] 06/15/2024 Patient: JODIE CHILEL Sex: Female : 1970 Age: 53y Measurements Wt: 95.3 kg, Ht/Shane: 60.0 in, BMI: 41.01 Measured Time BP MAP HR RR O2Sat ETCO2 Temp Pain GCS RTS 23:41 06/15/2024 125/73 85 66 23:41 06/15/2024 14 97.8 F 4 23:37 06/15/2024 78 93% 23:32 06/15/2024 79 95% 23:27 06/15/2024 75 95% 23:24 06/15/2024 104/51 70 75 23:23 06/15/2024 97/47 79 75 20:58 06/15/2024 146/85 105 83 18 94% 98.1 F 8 1 of 1 Normal [facility] CBC + DIFFon 06-15-2024 Baso # 0.01 x10EE3/UL Normal 0.00 - 0.10 [facility] Comment on above: Performed By: #### 2 11724 #### [facility],[address] [place] [address] Basophils/100 WBC (Bld) 0.2 % Normal 0.0 - 2.0 [facility] Comment on above: Performed By: #### 2 70953 #### [facility],[address] [place] [address] CBC + DIFF Normal [facility] Comment on above: Result Comment: CBC- COMPLETE BLOOD COUNT Performed By: #### 2 56454 #### [place] [address] EO # 0.05 x10EE3/UL Normal 0.00 - 0.50 [facility] Comment on above: Performed By: #### 2 50626 #### [facility],[address] [place] [address] Eosinophils/100 WBC (Bld) 0.7 % Normal 0.0 - 7.0 [facility] Comment on above: Performed By: #### 2 04901 #### [place] [address] Erythrocyte distribution width (RBC) [Ratio] 14.3 % Normal 12.0 - 15.6 [facility] Comment on above: Performed By: #### 2 74879 #### [place] [address] Hematocrit (Bld) [Volume fraction] 43.2 % Normal 34.0 - 46.0 [facility] Comment on above: Performed By: #### 2 50196 #### [facility],[address] [place], [place] [phone] Hemoglobin (Bld) [Mass/Vol] 14.7 g/dL Normal 12.0 - 16.0 [facility] Comment on above: Performed By: #### 2 50508 #### [facility],[address] [place] [address] Lymph # 1.03 x10EE3/UL Normal 0.80 - 2.80 [facility] Comment on above: Performed By: #### 2 40894 #### [facility],[address] [place] [address] Lymphocytes/100 WBC (Bld) 13.3 % Low 20.0 - 45.0 [facility] Comment on above: Performed By: #### 2 01597 #### [facility],[address] [place], [place] [phone] MANUAL DIFF N/A Normal [facility] Comment on above: Performed By: #### 2 05178 #### [facility],[address] [place], [place] [phone] MCH (RBC) [Entitic mass] 30 pg Normal 27 - 33 [facility] Comment on above: Performed By: #### 2 45370 #### [facility],[address] [place], [place] [phone] MCHC 34 X10 3 Normal 32 - 36 [facility] Comment on above: Performed By: #### 2 31911 #### [facility],[address] [place], [place] [phone] MCV (RBC) [Entitic vol] 88 fL Normal 80 - 99 [facility] Comment on above: Performed By: #### 2 97627 #### [facility],[address] [place] [address] [place] # 0.09 x10EE3/UL Low 0.20 - 1.00 [facility] Comment on above: Performed By: #### 2 86259 #### [facility],[address] [place] [address] MONOS % 1.2 % Normal 0.0 - 10.0 [facility] Comment on above: Performed By: #### 2 75034 #### [facility],[address] [place] [address] Morphology [place] (Bld) [Interp] N/A Normal [facility] Comment on above: Performed By: #### 2 15812 #### [place] [address] Neut # 6.56 x10EE3/UL Normal 1.50 - 7.10 [facility] Comment on above: Performed By: #### 2 44210 #### [facility],[address] [place] [address] Neutrophils/100 WBC (Bld) 84.7 % High 46.0 - 76.0 [facility] Comment on above: Performed By: #### 2 90027 #### [place] [address] PLATELET 186 x10EE3/UL Normal 150 - 450 [facility] Comment on above: Performed By: #### 2 82077 #### [place] [address] Platelet mean volume (Bld) [Entitic vol] 8.4 fL Normal 6.6 - 10.5 [facility] Comment on above: Result Comment: AUTO MATED DIFFERENTIAL Performed By: #### 2 20168 #### [place] [address] RBC 4.92 x 10EE6/UL Normal 4.10 - 5.30 [facility] Comment on above: Performed By: #### 2 03550 #### [address] [address] WBC 7.8 x 10EE3/UL Normal 4.5 - 10.8 [facility] Comment on above: Performed By: #### 2 18535 #### [facility],[address] [place] [phone] CMP with eGFRon 06-15-2024 AGE 53 years Normal [facility] Comment on above: Performed By: #### 2 73913 #### [facility],[address] [place] [address] Albumin [Mass/Vol] 3.4 g/dL Normal 3.4 - 5.0 [facility] Comment on above: Performed By: #### 2 01880 #### [facility],[address] [place] [id number] Albumin/Globulin [Mass ratio] 0.9 {ratio} Normal 0.9 - 1.6 [facility] Comment on above: Performed By: #### 2 46323 #### [facility],[address] [place] [address] 15826 ALK PHOS 71 U/L Normal 46 - 116 [facility] Comment on above: Performed By: #### 2 70730 #### [facility],[address] [place] [address] 19049 ALT [Catalytic activity/Vol] 35 U/L Normal 16 - 63 [facility] Comment on above: Performed By: #### 2 34088 #### [facility],[address] [place] [address] 41785 Anion gap [Moles/Vol] 14 mmol/L Normal 10 - 20 [facility] Comment on above: Performed By: #### 2 20573 #### [facility],[address] [place] [address] 75168 AST [Catalytic activity/Vol] 26 U/L Normal 13 - 39 [facility] Comment on above: Performed By: #### 2 04831 #### [facility],[address] [place] [address] 84930 B/C RATIO 23 ratio Normal 0 - 30 [facility] Comment on above: Performed By: #### 2 75788 #### [facility],[address] [place] [address] 89492 Bilirubin [Mass/Vol] 0.4 mg/dL Normal 0.2 - 1.0 [facility] Comment on above: Performed By: #### 2 37626 #### [facility],[address] [place] [address] 79788 Calcium [Mass/Vol] 9.1 mg/dL Normal 8.5 - 10.1 [facility] Comment on above: Performed By: #### 2 61483 #### [facility],[address] [place] [address] 35370 Chloride [Moles/Vol] 105 mmol/L Normal 98 - 107 [facility] Comment on above: Performed By: #### 2 01628 #### [facility],[address] [place] [address] 71295 CMP with eGFR Normal [facility] Comment on above: Result Comment: COMP REHENSIVE METABOLIC PANEL Performed By: #### 2 18241 #### [facility],[address] [place] [address] 42698 CO2 [Moles/Vol] 24.6 mmol/L Normal 21.0 - 32.0 [facility] Comment on above: Performed By: #### 2 98033 #### [facility],[address] [place] [address] 02281 Creatinine [Mass/Vol] 0.77 mg/dL Normal 0.55 - 1.02 [facility] Comment on above: Performed By: #### 2 46450 #### [facility],[address] [place] [address] 93553 GFR/1.73 sq M.predicted among non-blacks MDRD (S/P/Bld) [Vol rate/Area] mL/min/{1.73_m2} Normal 60 - 999 [facility] Comment on above: Performed By: #### 2 41011 #### [facility],[address] [place] [address] 51393 Result Comment: ACCO RDING TO THE NATIONAL KIDNEY DISEASE EDUCATION PROGRAM(NKDE), A NORMAL eGFR IS A VALUE GREATER THAN OR EQUAL TO 60 ML/MIN/1.73 SQ METERS. CHRONIC KIDNEY DISEASE: <60mL/MIN/1.73 SQ METERS KIDNEY FAILURE: <15mL/MIN/1.73 SQ METERS THIS TEST SHOULD ONLY BE USED FOR PATIENTS 18 YEARS OF AGE AND OLDER. Globulin (S) [Mass/Vol] 3.7 g/dL Normal 1.5 - 3.8 [facility] Comment on above: Performed By: #### 2 97359 #### [facility],[address] [place] [address] 42287 Glucose [Mass/Vol] 284 mg/dL High 74 - 106 [facility] Comment on above: Performed By: #### 2 58272 #### [facility],[address] [place] [address] 18866 Potassium [Moles/Vol] 4.3 mmol/L Normal 3.5 - 5.1 [facility] Comment on above: Performed By: #### 2 40256 #### [facility],[address] [place] [address] 15851 Protein [Mass/Vol] 7.1 g/dL Normal 6.4 - 8.2 [facility] Comment on above: Performed By: #### 2 17117 #### [facility],[address] [place] [address] 69290 Sodium [Moles/Vol] 139 mmol/L Normal 136 - 145 [facility] Comment on above: Performed By: #### 2 06141 #### [facility],[address] [place] [address] 99398 Urea nitrogen [Mass/Vol] 18 mg/dL Normal 7 - 18 [facility] Comment on above: Performed By: #### 2 36132 #### [facility],[address] [facility] [address] Emergency Department Summary on 06-15-2024 Emergency Department Summary [facility] Medical Records Department [address] [place] [address] Emergency Department Summary 06/15/24 MR#: [id number] Acct: [id number] Name: JODIE CHILEL Rep #: [id number] : 1970 53 From: Senait Laurent DO PCP: Dr. Sophie Huitron MD Status:DEP ER Location: ED HPI History of Present Illness Chief Complaint: Upper Extremity Injury Detail of Chief Complaint: Right wrist/arm pain and swelling Informant: patient Narrative Narrative: Patient presents with right wrist and arm swelling that started this morning when she woke up. She states that she went to bed feeling fine. She did regular housework yesterday. She describes a contusion to her wrist when her dropped a couch on it 2 weeks ago for which she was seen in the ER and had x-rays that were negative. She had been doing well otherwise. No recent travel or surgery. No history of PE or DVT. No history of gout. [facility] Medical History History of tobacco use Encounter for screening for malignant neoplasm of lung Chronic headaches Diabetes Chronic pain Endometrial polyp Wears glasses Depression Anxiety Alcohol use Arthritis High cholesterol Injury of back Migraine headache Smoker CPAP (continuous positive airway pressure) dependence Sleep apnea History of stress test Hypertension Diabetes mellitus type 2 in obese Hypothyroidism Bipolar disorder Asthma Home Medications ???Medication ???Instructions ???Recorded ???Last Taken ???Type atorvastatin 10 mg tablet 10 mg PO DAILY cholesterol lowering 02/27/16 09/04/18 11:00 History levothyroxine 25 mcg tablet 25 mcg PO DAILY thyroid 02/27/16 01/28/21 08:00 History albuterol sulfate 90 mcg/actuation 2 puff inhalation Q4H PRN PRN 03/23/18 08/29/18 15:00 History aerosol inhaler (ProAir HFA) shortness of breath metformin 1,000 mg tablet 1,000 mg PO BID blood sugar 03/23/18 09/04/18 22:00 History insulin glargine 100 unit/mL (3 18 unit SQ BREAKFAST 05/10/19 Unknown History mL) subcutaneous pen alpha lipoic acid 600 mg capsule 600 mg PO DAILY 01/21/21 Unknown History ipratropium bromide 17 1 inh inhalation DAILY 01/21/21 Unknown History mcg/actuation HFA aerosol inhaler (Atrovent HFA) trazodone 300 mg tablet 300 mg PO QHS 01/21/21 Unknown History vitamin B12 1 mg-folic acid 0.8 mg 1 tab PO DAILY 01/21/21 Unknown History tablet dulaglutide 0.75 mg/0.5 mL 1.5 mg subcut QWEEK #2 mL 08/05/23 Unknown Rx subcutaneous pen injector (Trulicity) pregabalin 150 mg capsule 150 mg PO BID 01/03/24 Unknown History topiramate 25 mg tablet 25 mg PO QHS headache 01/03/24 Unknown History topiramate 50 mg tablet 50 mg PO QHS 01/03/24 Unknown History trospium 20 mg tablet 20 mg PO QHS 01/03/24 Unknown History ondansetron 4 mg disintegrating 4 mg PO Q8H PRN PRN Nausea #10 tabs 01/10/24 Unknown Rx tablet dicyclomine 10 mg capsule 10 mg PO TID #30 caps 03/28/24 Unknown Rx ondansetron 4 mg disintegrating 4 mg PO Q6H PRN nausea and 03/28/24 Unknown Rx tablet vomiting #20 tabs hydrocodone-acetaminophen 5-325mg 1 tab PO Q4H PRN PRN Pain 2 days 06/15/24 Unknown Rx 5mg-325mg #10 TABLETS prednisone 20 mg tablet 20 mg PO BID #10 tabs 06/15/24 Unknown Rx Allergy/AdvReac Type Severity Reaction Status Date / Time latex Allergy Hives Verified 06/15/24 08:58 hydromorphone (From Dilaudid) AdvReac Vomiting Verified 06/15/24 08:58 Surgical History S/P hysterectomy History of appendectomy History of cholecystectomy History of back surgery Previous back surgery Hx of appendectomy History of cholecystectomy Social History Smoking Status: Former smoker substance use type: does not use ROS ROS ED Review of Systems ROS Unobtainable: other Constitutional Constitutional ED: Reports lethargy; Denies chills, fever(s), sweats or weight loss Eyes Eyes: Denies blurry vision, change in vision or diplopia ENT ENT ED: Denies rhinorrhea or sore throat Cardiovascular Cardiovascular: Denies chest pain, orthopnea or racing heartbeat Respiratory/Chest Respiratory/Chest: Denies cough, dyspnea, dyspnea on exertion, orthopnea or sputum Gastrointestinal Gastrointestinal: Denies abdominal pain, diarrhea, nausea or vomiting Genitourinary Genitourinary ED: Denies dysuria, hematuria or urinary frequency Musculoskeletal Musculoskeletal: Reports other Details: Right wrist pain and swelling ; Denies arthralgias, back pain, myalgias or neck pain Integumentary Denies abscess, Abrasions or rash Neurologic Neurologic: Denies headache(s) or weakness Psychiatric Psychiatric: Denies anxiety, depression or suicidal thoughts Endocrine Endoc (more content not included)... Normal [facility] TSHon 06-15-2024 TSH Qn 0.72 m[IU]/L Normal 0.35 - 3.74 [facility] Comment on above: Performed By: #### 2 07640 #### [facility],[address] [place] [address] Venous Duplex US, Unilateral on 06-15-2024 Venous Duplex US, Unilateral [facility] [address] [place] [address] Venous Duplex US, Unilateral 06/15/24 1142 MR#: [id number] Acct: [id number] Name: JODIE CHILEL Rep #: [id number] : 1970 53 From: Keagan Coles MD Attending Dr: Status: DEP ER Ordering Dr: Senait Laurent DO Date: 06/15/24 Location: ED Sex: F C Admitted: Reason For Study: Swelling RUE Right Proximal Left Proximal Right jugular vein is spontaneous, widely Left subclavian vein is spontaneous, widely patent, phasic, with no intraluminal patent, phasic, with no intraluminal echogenicity noted. echogenicity noted. Right subclavian vein is spontaneous, widely patent, phasic, with no intraluminal echogenicity noted. Right Lower Arm Right radial vein is compressible. Right ulnar vein is compressible. Right Arm Right axillary vein is spontaneous, patent, phasic, competent, compressible and demonstrates augmentation. Right brachial vein is compressible. Right cephalic vein is compressible. Right basilic vein is compressible. VL/Venous Duplex US, Unilateral Interpretation Summary Deep veins of the right upper extremity are patent and compressible segmentally. There is no evidence of deep vein thrombosis. The superficial veins of the right upper extremity, the basilic and cephalic veins, are patent and compressible. There is no evidence of right upper extremity superficial thrombophlebitis involving the veins imaged. The left subclavian vein is patent. Ordering Physician: Senait Laurent Referring Physician: Sophie Huitron Performed By: Lolis Adams, RDCS, RVT ??? 06/15/242226 Date Keagan Coles MD CC: Dr. Sophie Huitron MD; Dr. Senait Laurent DO Date Dictated: 06/15/24 1142 Date Transcribed: 06/15/242226 Duck Farmer: Signed Normal [facility] Emergency Department Summary on 05-31-2024 Emergency Department Summary [facility] Medical Records Department [address] [place] [address] Emergency Department Summary 05/31/24 MR#: [id number] Acct: [id number] Name: JODIE CHILEL Rep #: [id number] : 1970 53 From: Harvey Lucero MD PCP: Dr. Sophie Huitron MD Status:REG ER Location: ED HPI History of Present Illness Chief Complaint: Upper Extremity Injury Informant: patient Narrative Narrative: 53-year-old female injured her right wrist and forearm last night, she states she and her were trying to move a callus and he accidentally dropped it on her forearm. She points that her radial wrist/distal forearm is the place where it hurts the worst but the pain radiates up into her proximal forearm more radial. No other injuries or pain. No numbness in her fingers. [id number]. [facility] Medical History History of tobacco use Encounter for screening for malignant neoplasm of lung Chronic headaches Diabetes Chronic pain Endometrial polyp Wears glasses Depression Anxiety Alcohol use Arthritis High cholesterol Injury of back Migraine headache Smoker CPAP (continuous positive airway pressure) dependence Sleep apnea History of stress test Hypertension Diabetes mellitus type 2 in obese Hypothyroidism Bipolar disorder Asthma Home Medications ???Medication ???Instructions ???Recorded ???Last Taken ???Type atorvastatin 10 mg tablet 10 mg PO DAILY cholesterol lowering 02/27/16 09/04/18 11:00 History levothyroxine 25 mcg tablet 25 mcg PO DAILY thyroid 02/27/16 01/28/21 08:00 History albuterol sulfate 90 mcg/actuation 2 puff inhalation Q4H PRN PRN 03/23/18 08/29/18 15:00 History aerosol inhaler (ProAir HFA) shortness of breath metformin 1,000 mg tablet 1,000 mg PO BID blood sugar 03/23/18 09/04/18 22:00 History insulin glargine 100 unit/mL (3 18 unit SQ BREAKFAST 05/10/19 Unknown History mL) subcutaneous pen alpha lipoic acid 600 mg capsule 600 mg PO DAILY 01/21/21 Unknown History ipratropium bromide 17 1 inh inhalation DAILY 01/21/21 Unknown History mcg/actuation HFA aerosol inhaler (Atrovent HFA) trazodone 300 mg tablet 300 mg PO QHS 01/21/21 Unknown History vitamin B12 1 mg-folic acid 0.8 mg 1 tab PO DAILY 01/21/21 Unknown History tablet dulaglutide 0.75 mg/0.5 mL 1.5 mg subcut QWEEK #2 mL 08/05/23 Unknown Rx subcutaneous pen injector (Trulicity) pregabalin 150 mg capsule 150 mg PO BID 01/03/24 Unknown History topiramate 25 mg tablet 25 mg PO QHS headache 01/03/24 Unknown History topiramate 50 mg tablet 50 mg PO QHS 01/03/24 Unknown History trospium 20 mg tablet 20 mg PO QHS 01/03/24 Unknown History ondansetron 4 mg disintegrating 4 mg PO Q8H PRN PRN Nausea #10 tabs 01/10/24 Unknown Rx tablet dicyclomine 10 mg capsule 10 mg PO TID #30 caps 03/28/24 Unknown Rx ondansetron 4 mg disintegrating 4 mg PO Q6H PRN nausea and 03/28/24 Unknown Rx tablet vomiting #20 tabs Allergy/AdvReac Type Severity Reaction Status Date / Time latex Allergy Hives Verified 05/31/24 17:34 hydromorphone (From Dilaudid) AdvReac Vomiting Verified 05/31/24 17:34 Surgical History S/P hysterectomy History of appendectomy History of cholecystectomy History of back surgery Previous back surgery Hx of appendectomy History of cholecystectomy Social History Smoking Status: Former smoker substance use type: does not use ROS ROS ED Constitutional Constitutional ED: Denies chills or fever(s) Musculoskeletal Musculoskeletal: Reports extremity pain; Denies neck pain Integumentary Reports Abrasions; Denies rash or wounds Neurologic Neurologic: Denies paresthesias or weakness EXAM Physical Exam Const Vital Signs: 05/31/24 17:34 Temperature 97 F L Temperature Source Temporal Pulse Rate 85 Respiratory Rate 18 Blood Pressure 143/87 H Blood Pressure Mean 105 Pulse Ox 100 Oxygen Delivery Method Room Air Positive well nourished and well developed General Appearance ED: well developed and NAD Eyes PERRL and EOMs intact bilaterally Neck full ROM and supple Back/Spine normal ROM and normal to inspection Extremity Extremity Narrative: Limited range of motion right wrist due to pain. She unable to pronate and or supinate. There is no deformity. She has an abrasion, erythema, tenderness at the distal radius and the snuffbox. She has trouble moving her right thumb due to pain but there is no deformity. She also has pain in her wrist with moving all of the other fingers. There is no hand bony tenderness. She is also tender throughout the entire forearm/distribution of the radius all the way to (more content not included)... Normal [facility] Forearm 2 Viewson 05-31-2024 Forearm 2 Views [facility] Imaging Services [address] [place] [address] Forearm 2 Views MR#: [id number] Acct: [id number] Name: JODIE CHILEL Rep #: [id number] : 1970 F 53 From: Yanci Szymanski MD PCP: Dr. Sophie Huitron MD Status: DEP ER Study: Forearm 2 Views Date of Exam: 05/31/24 Exam# [id number] Ordering Dr: Harvey Lucero MD [id number] EXAM: XR RIGHT FOREARM, 2 VIEWS CLINICAL INDICATION: blunt trauma TECHNIQUE: Frontal and lateral views of the right forearm. COMPARISON: No relevant prior studies available. FINDINGS: BONES/JOINTS: Unremarkable. No acute fracture. No dislocation. SOFT TISSUES: Mild dorsal forearm soft tissue swelling. RAD/Forearm 2 Views IMPRESSION: Mild soft tissue swelling. No fracture. Electronically Signed: Yanci Szymanski MD at 19:22 EST Reading Location ID and State: [facility] / [place] Tel , Service support , CC: Dr. Harvey Lucero MD; Dr. Sophie Huitron MD Duck Farmer: Signed [facility] 12 Lead EKGon 03-28-2024 12 Lead EKG [facility] Cardiovascular Services [address] [place] [address] 12 Lead EKG 03/28/24 0937 MR#: [id number] Acct: [id number] Name: JODIE CHILEL Rep #: [id number] : 1970 53 From: Tyrell Mo MD Attending Dr: Status: DEP ER Ordering Dr: Patrick Manrique DO Date: 03/28/24 Location: ED Sex: F C Admitted: Test Reason : ABD PAIN Blood Pressure : / mmHG Vent. Rate : 076 BPM Atrial Rate : 076 BPM P-R Int : 140 ms QRS Dur : 080 ms QT Int : 386 ms P-R-T Axes : 037 015 003 degrees QTc Int : 434 ms Normal sinus rhythm with sinus arrhythmia Normal ECG Confirmed by TYRELL MO MD ([id number]), news videotape editor SERAFIN TRISTAN ([id number]) on 03/29/2024 2:13:06 PM Referred By: TB Confirmed By:TYRELL MO MD 03/29/24 1413 Date Tyrell Mo MD CC: Dr. Sophie Huitron MD; Dr. Patrick Manrique DO Signed Normal [facility] Abdomen/Pelvis W IV Cont ONL Yon 03-28-2024 Abdomen/Pelvis W IV Cont ONLY [facility] Imaging Services [address] [place], [place] [address] Abdomen/Pelvis W IV Cont ONLY MR#: [id number] Acct: [id number] Name: JODIE CHILEL Rep #: [id number] : 1970 F 53 From: Tim shanks MD PCP: Dr. Sophie Huitron MD Status: REG ER Study: Abdomen/Pelvis W IV Cont ONLY Date of Exam: Exam# [id number] Ordering Dr: Patrick Manrique DO [id number] STUDY: CT ABDOMEN AND PELVIS WITH CONTRAST REASON FOR EXAM: Female, 53 years old. LLQ pain x 3 days, nausea/vomiting/diarrhea, prior cholecystectomy, appendectomy, hysterectomy, back surgery. RADIATION DOSAGE (If Supplied By Facility): CTDIvol = ( 21.26 ) mGy, DLP = ( 1344.38 ) mGycm TECHNIQUE: Transaxial images were obtained from the dome of the diaphragm to the symphysis pubis without oral contrast. ml of 100mL Isovue-300 contrast was administered. Sagittal and coronal images were reconstructed. Individualized dose optimization techniques were used for this CT. COMPARISON: CT of abdomen and pelvis dated January 10, 2024 FINDINGS: The visualized lung bases are unremarkable. The visualized portions of the heart are within normal limits. Mildly cirrhotic liver. No liver masses or ductal dilatation is present. There is non-visualization of the gallbladder, which may be secondary to either contraction or a prior cholecystectomy. Normal spleen. Normal pancreas. Normal bilateral adrenal glands. Normal right kidney. Normal left kidney. Normal visualized stomach. Normal small intestine. Normal colon. There are surgical clips in the region of the appendix consistent with a prior appendectomy. No bowel dilatation or free air or free fluid. No bowel wall thickening is present. No colonic diverticula are seen. Prior hysterectomy. There is diffuse atherosclerotic calcification of the abdominal aorta, without a demonstrated aneurysm. Normal inferior vena cava. Normal retroperitoneum. Normal urinary bladder. Normal abdominal wall. There are diffuse degenerative changes of the visualized lumbar spine. CT/Abdomen/Pelvis W IV Cont ONLY IMPRESSION: 1. No acute process of the abdomen and pelvis. 2. Mildly cirrhotic liver Electronically Signed: Tim Limon MD at 11:09 EDT Reading Location ID and State: [address] [place] [address] , Service support , CC: Dr. Sophie Huitron MD; Dr. Patrick Manrique DO Duck Farmer: Signed Normal [facility] CBC W/Diff, Automatedon 03-19 Absolute Lymph 3.07 X10 3/uL Normal 0.83-4.51 [facility] Comment on above: Performed By: #### L 100.0100, L501.2450, L500.4050 ####[facility] [address] [place], [address] Absolute Neut 5.2 X10 3/uL Normal 2.0-7.7 [facility] Comment on above: Performed By: #### L 100.0100, L501.2450, L500.4050 ####[facility] [address] [place], [address] Basophils/100 WBC (Bld) 0.6 % Normal 0-1 [facility] Comment on above: Performed By: #### L 100.0100, L501.2450, L500.4050 ####[facility] [address] [place], [address] Eosinophils/100 WBC (Bld) 2.1 % Normal 0-5 [facility] Comment on above: Performed By: #### L 100.0100, L501.2450, L500.4050 ####[facility] [address] [place], [address] Erythrocyte distribution width (RBC) [Ratio] 13.4 % Normal 11.6-14.6 [facility] Comment on above: Performed By: #### L 100.0100, L501.2450, L500.4050 ####[facility] [address] [place], [address] Hematocrit (Bld) [Volume fraction] 47.8 % High 37-47 [facility] Comment on above: Performed By: #### L 100.0100, L501.2450, L500.4050 ####[facility] [address] [place], [address] Hemoglobin (Bld) [Mass/Vol] 15.1 g/dL High 12.0-15.0 [facility] Comment on above: Performed By: #### L 100.0100, L501.2450, L500.4050 ####[facility] [address] [place], [address] IG% 0.400 Normal 0.0-0.9 [facility] Comment on above: Result Comment: IG% - Immature Granulocytes (promyelocytes, myelocytes and metamyelocytes) > 1% indicates that a LEFT SHIFT is Present. Performed By: #### L 100.0100, L501.2450, L500.4050 ####[facility] [address] [place], [address] Lymphocytes/100 WBC (Bld) 33.8 % Normal 19-41 [facility] Comment on above: Performed By: #### L 100.0100, L501.2450, L500.4050 ####[facility] [address] [place], [address] MCH (RBC) [Entitic mass] 28.3 pg Normal 27.0-32.0 [facility] Comment on above: Performed By: #### L 100.0100, L501.2450, L500.4050 ####[facility] [address] [place], [address] MCHC (RBC) [Mass/Vol] 31.6 g/dL Low 32-36 [facility] Comment on above: Performed By: #### L 100.0100, L501.2450, L500.4050 ####[facility] [address] [place], [address] MCV (RBC) [Entitic vol] 89.7 fL Normal 81-99 [facility] Comment on above: Performed By: #### L 100.0100, L501.2450, L500.4050 ####[facility] [address] [place], [address] Monocytes/100 WBC (Bld) 5.6 % Normal 0-10 [facility] Comment on above: Performed By: #### L 100.0100, L501.2450, L500.4050 ####[facility] [address] [place], [address] Neutrophils/100 WBC (Bld) 57.5 % Normal 47-70 [facility] Comment on above: Performed By: #### L 100.0100, L501.2450, L500.4050 ####[facility] [address], [address] Nucleated RBC (Bld) [#/Vol] 0 10*3/uL Normal 0-5 [facility] Comment on above: Performed By: #### L 100.0100, L501.2450, L500.4050 ####[facility] [address] [place], [address] Platelet mean volume (Bld) [Entitic vol] 10.6 fL Normal 6.2-12.0 [facility] Comment on above: Performed By: #### L 100.0100, L501.2450, L500.4050 ####[facility] [address] [place], [address] Platelets (Bld) [#/Vol] 205 10*3/uL Normal 150-450 [facility] [facility] Comment on above: Performed By: #### L 100.0100, L501.2450, L500.4050 ####[facility] [address] [place], [address] RBC (Bld) [#/Vol] 5.33 10*6/uL Normal 4.2-5.4 [facility] Comment on above: Performed By: #### L 100.0100, L501.2450, L500.4050 ####[facility] [address] [place], [address] RDW SD 44.1 fl High 35.1-43.9 [facility] Comment on above: Performed By: #### L 100.0100, L501.2450, L500.4050 ####[facility] [address] [place], [address] WBC (Bld) [#/Vol] 9.1 10*3/uL Normal 4.4-11.0 [facility] Comment on above: Performed By: #### L 100.0100, L501.2450, L500.4050 ####[facility] [address] [place], [address] Comprehensive Metabolic [facility] ilon 03-28-2024 Albumin [Mass/Vol] 4.1 g/dL Normal 3.2-5.0 [facility] Comment on above: Performed By: #### L 100.0100, L501.2450, L500.4050 ####[facility] [address] [place], [address] Albumin/Globulin [Mass ratio] 0.9 {ratio} Normal 0.9-2.4 [facility] Comment on above: Performed By: #### L 100.0100, L501.2450, L500.4050 ####[facility] [address] [place], [address] ALK P 85 U/L Normal 45-117 [facility] Comment on above: Performed By: #### L 100.0100, L501.2450, L500.4050 ####[facility] [address] [place], [address] ALT [Catalytic activity/Vol] 38 U/L Normal 13-56 [facility] Comment on above: Performed By: #### L 100.0100, L501.2450, L500.4050 ####[facility] [address] [place], [address] AST [Catalytic activity/Vol] 27 U/L Normal 15-37 [facility] Comment on above: Performed By: #### L 100.0100, L501.2450, L500.4050 ####[facility] [address] [place], [address] Bilirubin [Mass/Vol] 0.40 mg/dL Normal 0.20-1.00 [facility] Comment on above: Result Comment: For patients on eltrombopag therapy, use of Dimension Downing TBIL is not recommended. Performed By: #### L 100.0100, L501.2450, L500.4050 ####[facility] [address] [place], [address] BUN/CRE 21.2 RATIO High 10-20 [facility] Comment on above: Performed By: #### L 100.0100, L501.2450, L500.4050 ####[facility] [address] [place], [address] CA,Total 9.7 mg/dL Normal 8.5-10.1 [facility] Comment on above: Performed By: #### L 100.0100, L501.2450, L500.4050 ####[facility] [address] [place], [address] Chloride [Moles/Vol] 109 mmol/L High 98-107 [facility] Comment on above: Performed By: #### L 100.0100, L501.2450, L500.4050 ####[facility] [address], [address] CO2 [Moles/Vol] 26.0 mmol/L Normal 21.0-32.0 [facility] Comment on above: Performed By: #### L 100.0100, L501.2450, L500.4050 ####[facility] [address], [address] Creatinine [Mass/Vol] 0.90 mg/dL Normal 0.55-1.02 [facility] Comment on above: Result Comment: The validity of the calculated GFR GFRAA in patients over 70 years has not been determined. Clinical correlation is essential. Performed By: #### L 100.0100, L501.2450, L500.4050 ####[facility] [address] [place], [address] ECRCL 74.84 ml/min Normal [facility] Comment on above: Performed By: #### L 100.0100, L501.2450, L500.4050 ####[facility] [address] [place], [address] EST GFR - AA 85 mL/min Normal >60 [facility] Comment on above: Result Comment: Afri can Slovenian GFR Calc Performed By: #### L 100.0100, L501.2450, L500.4050 ####[facility] [address] [place], [address] GAP 6 Normal 5-15 [facility] Comment on above: Performed By: #### L 100.0100, L501.2450, L500.4050 ####[facility] [address] [place], [address] GFR/1.73 sq M.predicted among non-blacks MDRD (S/P/Bld) [Vol rate/Area] 70 mL/min/{1.73_m2} Normal >60 [facility] Comment on above: Result Comment: Non- GFR Calc Performed By: #### L 100.0100, L501.2450, L500.4050 ####[facility] [address] [place], [address] Globulin (S) [Mass/Vol] 4.4 g/dL High 2.2-4.2 [facility] Comment on above: Performed By: #### L 100.0100, L501.2450, L500.4050 ####[facility] [address] [place], [address] Glucose [Mass/Vol] 163 mg/dL High 74-106 [facility] Comment on above: Result Comment: Fast ing Glucose result greater than or equal to 126 mg/dL suggests DIABETES MELLITUS per A.D.A. criteria. Performed By: #### L 100.0100, L501.2450, L500.4050 ####[facility] [address] [place], [address] Potassium [Moles/Vol] 3.9 mmol/L Normal 3.5-5.1 [facility] Comment on above: Performed By: #### L 100.0100, L501.2450, L500.4050 ####[facility] [address] [place], [address] Sodium [Moles/Vol] 141 mmol/L Normal 136-145 [facility] Comment on above: Performed By: #### L 100.0100, L501.2450, L500.4050 ####[facility] [address] [place], [address] T PROT 8.5 g/dL High 6.4-8.2 [facility] Comment on above: Performed By: #### L 100.0100, L501.2450, L500.4050 ####[facility] [address] [place], [address] Urea nitrogen [Mass/Vol] 19 mg/dL High 7-18 [facility] Comment on above: Performed By: #### L 100.0100, L501.2450, L500.4050 ####[facility] [address] [place], [address] Emergency Department Summary on 03-28-2024 Emergency Department Summary [facility] Medical Records Department [address] [place] [address] Emergency Department Summary 03/28/24 MR#: [id number] Acct: [id number] Name: JODIE CHILEL Rep #: [id number] : 1970 53 From: Patrick Manrique DO PCP: Dr. Sophie Huitron MD Status:REG ER Location: ED ADDENDUM by Dr. Patrick Manrique DO on 03/28/24 at 1323 Patient is EKG reviewed and independently interpreted by myself which showed sinus rhythm with a rate of 76 bpm. 03/28/24 1323 Cosigner Signature (if applicable): cc: Dr. Sophie Huitron MD * Signed HPI History of Present Illness Chief Complaint: Abd Pain Narrative Narrative: Patient is a 53-year-old female past medical history of tobacco use, diabetes, anxiety, JAELYN, hypertension, bipolar disorder who presented to the emergency department with a chief complaint of abdominal pain. Patient states that she has had abdominal pain for about 3 days now that has been getting progressively worse. Patient states that she has had diarrhea denies any black stools or blood in her stool. Patient states that her pain has progressively been worsening which prompted her here further evaluation management. Patient states that she did have an obstruction in her abdomen before. Patient states that she is nauseous. Denies vomiting. Denies any sick contacts. Patient states that she has had her gallbladder and her appendix removed [facility] Medical History History of tobacco use Encounter for screening for malignant neoplasm of lung Chronic headaches Diabetes Chronic pain Endometrial polyp Wears glasses Depression Anxiety Alcohol use Arthritis High cholesterol Injury of back Migraine headache Smoker CPAP (continuous positive airway pressure) dependence Sleep apnea History of stress test Hypertension Diabetes mellitus type 2 in obese Hypothyroidism Bipolar disorder Asthma Home Medications ???Medication ???Instructions ???Recorded ???Last Taken ???Type atorvastatin 10 mg tablet 10 mg PO DAILY cholesterol lowering 02/27/16 09/04/18 11:00 History levothyroxine 25 mcg tablet 25 mcg PO DAILY thyroid 02/27/16 01/28/21 08:00 History albuterol sulfate 90 mcg/actuation 2 puff inhalation Q4H PRN PRN 03/23/18 08/29/18 15:00 History aerosol inhaler (ProAir HFA) shortness of breath metformin 1,000 mg tablet 1,000 mg PO BID blood sugar 03/23/18 09/04/18 22:00 History insulin glargine 100 unit/mL (3 18 unit SQ BREAKFAST 05/10/19 Unknown History mL) subcutaneous pen alpha lipoic acid 600 mg capsule 600 mg PO DAILY 01/21/21 Unknown History ipratropium bromide 17 1 inh inhalation DAILY 01/21/21 Unknown History mcg/actuation HFA aerosol inhaler (Atrovent HFA) trazodone 300 mg tablet 300 mg PO QHS 01/21/21 Unknown History vitamin B12 1 mg-folic acid 0.8 mg 1 tab PO DAILY 01/21/21 Unknown History tablet dulaglutide 0.75 mg/0.5 mL 1.5 mg subcut QWEEK #2 mL 08/05/23 Unknown Rx subcutaneous pen injector (Trulicity) pregabalin 150 mg capsule 150 mg PO BID 01/03/24 Unknown History topiramate 25 mg tablet 25 mg PO QHS headache 01/03/24 Unknown History topiramate 50 mg tablet 50 mg PO QHS 01/03/24 Unknown History trospium 20 mg tablet 20 mg PO QHS 01/03/24 Unknown History ondansetron 4 mg disintegrating 4 mg PO Q8H PRN PRN Nausea #10 tabs 01/10/24 Unknown Rx tablet dicyclomine 10 mg capsule 10 mg PO TID #30 caps 03/28/24 Unknown Rx ondansetron 4 mg disintegrating 4 mg PO Q6H PRN nausea and 03/28/24 Unknown Rx tablet vomiting #20 tabs Allergy/AdvReac Type Severity Reaction Status Date / Time latex Allergy Hives Verified 03/28/24 09:16 hydromorphone (From Dilaudid) AdvReac Vomiting Verified 03/28/24 09:16 Surgical History S/P hysterectomy History of appendectomy History of cholecystectomy History of back surgery Previous back surgery Hx of appendectomy History of cholecystectomy Social History Smoking Status: Former smoker substance use type: does not use ROS ROS ED ROS Narrative Constitutional: Denies fevers, chills, headaches, lightness, dizziness Eyes: Denies change in vision double vision blurry vision Cardiovascular: Denies chest pain Respiratory: Denies shortness of breath Abdomen: Complains of abdominal pain nausea diarrhea as noted above : Denies any painful urination, hematuria compel her Neurological: Denies numbness, weakness, tingling Musculoskeletal: Denies back pain Skin: denies rashes or lesions EXAM Physical Exam Narrative Exam Narrative: General: Patient lying in bed did appear to be uncomfortable secondary to her abdominal pain Head: Atraumatic, normocephalic Eyes: PER (more content not included)... Normal [facility] Lactic Acidon 03-28-2024 Lactate [Moles/Vol] 0.9 mmol/L Normal 0.4-1.9 [facility] Comment on above: Order Comment: Y Performed By: #### L 503.6005 ####[facility] [address] [place], [address] Lipaseon 03-28-2024 Lipase [Catalytic activity/Vol] 33 U/L Normal 13-75 [facility] Comment on above: Result Comment: Janeen del rio note: LIPASE revised reference range effective 22. New Lipase methodology. Expected to produce lower values than the previous assay method. NEW Reference Range: 13 - 75 U/L Performed By: #### L 100.0100, L501.2450, L500.4050 ####[facility] [address] [place], [address] Urinalysis, Completeon 03-28 EPI,SQUAMOUS 0-5 SEEN Normal 5-10 [facility] Comment on above: Order Comment: CLEAN CATCH Performed By: #### L 400.0001 ####[facility] [address] [place], [address] BACTERIA 0 SEEN Normal None Seen [facility] Comment on above: Order Comment: CLEAN CATCH Performed By: #### L 400.0001 ####[facility] [address] [place], [address] Mucus Ql (Urine sed) 0 SEEN Normal [facility] Comment on above: Order Comment: CLEAN CATCH Performed By: #### L 400.0001 ####[facility] [address] [place], [address] RBC 0 SEEN Normal 0-5 [facility] Comment on above: Order Comment: CLEAN CATCH Performed By: #### L 400.0001 ####[facility] [address] [place], [address] WBC 0 SEEN Normal 0-5 [facility] Comment on above: Order Comment: CLEAN CATCH Performed By: #### L 400.0001 ####[facility] [address] [place], [address] Lung Screeningon 02-27-[address] Lung Screening [facility] Imaging Services [address] [place] [address] Lung Screening MR#: [id number] Acct: [id number] Name: JODIE CHILEL Rep #: [id number] : 1970 F 53 From: Wayne whitley MD PCP: Dr. Sophie Huitron MD Status: [facility] Study: Low Dose CT Lung Screening Date of Exam: 02/26 Exam# [id number] Ordering Dr: Ramya Terrazas CHIP PERSON CHIP PERSON -C [id number] STUDY: LOW DOSE CT LUNG CANCER SCREENING REASON FOR EXAM: Female, 53 years old. Lung cancer screening -- and gt;20 pk yr hx;former smoker; asymptomatic. Patient quit 6 months ago. RADIATION DOSAGE (If Supplied By Facility): CTDIvol = ( 3.02 ) mGy, DLP = ( 87.24 ) mGycm TECHNIQUE: No contrast was administered. Low dose technique was utilized (average mAS-38 and kVp 120). 1.25 mm axial source images with a slice interval of 1.25-mm were reconstructed in lung windows. 2.5 mm axial source images with a slice interval of 2.5-mm were reconstructed in lung windows. 5.0 mm axial source images with a slice interval of 5.0-mm were reconstructed in soft tissue windows. COMPARISON: None. NODULES: No suspicious nodules are seen. Emphysema: Elevation of the right hemidiaphragm. Mild scarring at the lung bases. Endobronchial lesion: None Aorta: Unremarkable CORONARY ARTERIES: Coronary artery calcification is seen. Heart: Unremarkable Pulmonary artery: Unremarkable Mediastinal nodes: Unremarkable Other chest and abdominal findings: CT/Low Dose CT Lung Screening IMPRESSION: Lung-RADS category 2 - Continue annual screening with LDCT in 12 months. IMPORTANT NOTES FOR USE: ACR Lung-RADS Version 1.1 Assessment Categories Release Date: 2018 Category: Coded 0-4 bases on nodule(s) with highest degree of suspicion. Negative screen is defined as categories 1 and 2; a positive screen is defined as categories 3 and 4. Category 3 and 4A nodules that are unchanged on interval CT should be coded as category 2, and individuals returned to screening in 12 months. Category 4X: Category 3 or 4 nodules with additional imaging findings that increase the suspicion of lung cancer, such as spiculation, GGN that doubles in size in 1 year, enlarged lymph notes, etc. Category Modifiers: S (significant finding unrelated to lung cancer) Electronically Signed: Wanye Cooper MD at 13:17 EDT Reading Location ID and State: [address] [place] [address] , Service support , CC: REAGAN Terrazas; Dr. Sophie Huitron MD Duck Farmer: Signed Normal [facility] Oncology Visit Reporton 02-17 Oncology Visit Report [facility] [place] [facility] [address] [place] [address] OFFICE VISIT Date of Service: 02/27/24 1155 MR#: [id number] Acct: [id number] Name: JODIE CHILEL Rep #: [id number] : 1970 From: Ramya Finch Age/Sex: 53/F Location: [facility] Status: Signed HPI HPI Reviewed eligibility criteria: 53 year old F with a 74 pack year smoking history (1-3 packs per day x 37 years). Smoking Status: Former smoker (Quit cigarettes August 2023- now vapes) Decision Making Engaged in shared decision making visit utilizing a visual aid. Discussed the risks and benefits of lung cancer screening including the total radiation exposure, false positive rate, over diagnosis and potential need for follow-up diagnostic testing all associated with low-dose chest CT. Comorbidities DM, ROS Const Denies anorexia, Denies fatigue, Denies headache(s), Denies poor appetite and Denies weight loss ENT Denies headache(s) Card Denies chest pain, Denies dyspnea and Denies palpitations Resp Denies cough, Denies dyspnea, Denies hemoptysis and Denies wheezing GI Reports system reviewed and no additional complaints, except as documented Musc Reports system reviewed and no additional complaints, except as documented Skin/Breast Reports system reviewed and no additional complaints, except as documented Neuro Yes system reviewed and no additional complaints, except as documented and No headache(s) Psych Reports system reviewed and no additional complaints, except as documented Endo Reports system reviewed and no additional complaints, except as documented, Denies fatigue and Denies palpitations Quang/Lymph Reports system reviewed and no additional complaints, except as documented Aller/Immun Denies wheezing Exam Const General: well developed Orientation: alert and oriented x3 HENMT Head: normocephalic and atraumatic Neck Neck: trachea midline, supple and no lymphadenopathy noted Resp Effort Inspection: normal respiratory effort and symmetric chest movement Auscultation: Bilateral: Clear to Auscultation Cardio Rate: regular rate Rhythm: regular rhythm Heart Sounds: S1 normal and S2 normal Psych Affect: normal affect Speech and Movement: speech and movement normal Results Results February 27, [address] Lung Screening NODULES: No suspicious nodules are seen. Emphysema: Elevation of the right hemidiaphragm. Mild scarring at the lung bases. Endobronchial lesion: None Aorta: Unremarkable CORONARY ARTERIES: Coronary artery calcification is seen. Heart: Unremarkable Pulmonary artery: Unremarkable Mediastinal nodes: Unremarkable Other chest and abdominal findings: IMPRESSION: Lung-RADS category 2 - Continue annual screening with LDCT in 12 months. IMPORTANT NOTES FOR USE: ACR Lung-RADS Version 1.1 Assessment Categories Release Date: 2018 Category: Coded 0-4 bases on nodule(s) with highest degree of suspicion. Negative screen is defined as categories 1 and 2; a positive screen is defined as categories 3 and 4. Category 3 and 4A nodules that are unchanged on interval CT should be coded as category 2, and individuals returned to screening in 12 months. Category 4X: Category 3 or 4 nodules with additional imaging findings that increase the suspicion of lung cancer, such as spiculation, GGN that doubles in size in 1 year, enlarged lymph notes, etc. Category Modifiers: S (significant finding unrelated to lung cancer) Intake Vital Signs 01/10/24 12:14 02/27/24 12:00 Height 5 ft 5 ft Weight: 211 lb 3 oz BMI 41.2 BP 104/67 Blood Pressure Location Rt brachial Position Sitting Respiration 18 Pulse 96 Pulse Source Monitor Temp 97.8 F Temp Source Temporal Pulse Oximetry (%) 98 Oxygen Delivery Method room air Intake Visit Reasons: Lung Cancer Screening Is patient in pain?: No Allergies latex Allergy (Verified 02/27/24 11:58) Hives hydromorphone (From Dilaudid) Adverse Reaction (Verified 02/27/24 11:58) Vomiting Medications ???Medication ???Instructions ???Recorded ???Confirmed ???Type atorvastatin 10 mg tablet 10 mg PO DAILY cholesterol lowering 02/27/16 02/27/24 History levothyroxine 25 mcg tablet 25 mcg PO DAILY thyroid 02/27/16 02/27/24 History albuterol sulfate 90 mcg/actuation 2 puff inhalation Q4H PRN PRN 03/23/18 02/27/24 History aerosol inhaler (ProAir HFA) shortness of breath metformin 1,000 mg tablet 1,000 mg PO BID blood sugar 03/23/18 02/27/24 History insulin glargine 100 unit/mL (3 18 unit SQ BREAKFAST 05/10/19 02/27/24 History mL) subcutaneous pen alpha lipoic acid 600 mg capsule 600 mg PO DAILY 01/21/21 02/27/24 History ipratropium bromide 17 1 inh inhalation DAILY 01/21/21 02/27/24 History mcg/actuation HFA aerosol inhaler (more content not included)... Normal [facility] Abdomen/Pelvis W IV Cont ONL Yon 01-10-2024 Abdomen/Pelvis W IV Cont ONLY [facility] Imaging Services [address] [place] [address] Abdomen/Pelvis W IV Cont ONLY MR#: [id number] Acct: [id number] Name: JODIE CHILEL Rep #: [id number] : 1970 F 53 From: Wayne whitley MD PCP: Dr. Sophie Huitron MD Status: REG ER Study: Abdomen/Pelvis W IV Cont ONLY Date of Exam: Exam# [id number] Ordering Dr: Bubba Byers DO [id number] STUDY: CT ABDOMEN AND PELVIS WITH CONTRAST REASON FOR EXAM: Female, 53 years old. Abdominal pain, recent small bowel obstruction RADIATION DOSAGE (If Supplied By Facility): CTDIvol = ( 16.48 ) mGy, DLP = ( 1441.53 ) mGycm TECHNIQUE: Transaxial images were obtained from the dome of the diaphragm to the symphysis pubis without oral contrast. IV 100mL Isovue-300 was administered. Sagittal and coronal images were reconstructed. Individualized dose optimization techniques were used for this CT. COMPARISON: Comparison is made with prior study dated January 02, 2024. FINDINGS: Findings suggest a mild degree of bibasilar linear atelectasis. The visualized portions of the heart are within normal limits. There is decreased attenuation of the liver consistent with steatosis. The patient is status post cholecystectomy. Normal spleen. Normal pancreas. Normal bilateral adrenal glands. Normal right kidney. Normal left kidney. Normal visualized stomach. Mild degree of residual dilatation of proximal small bowel loops. Several of these proximal small bowel loops have a thickened wall. There has been improvement as compared to prior study. Enteritis should be ruled out. The distal small bowel loops are decompressed. There are scattered colonic diverticula consistent with diverticulosis. There is non-visualization of the appendix. Normal abdominal aorta. Normal inferior vena cava. Normal retroperitoneum. Normal urinary bladder. There is absence of the uterus consistent with a prior hysterectomy. Normal abdominal wall. There are mild degenerative changes of the visualized lumbar spine. CT/Abdomen/Pelvis W IV Cont ONLY IMPRESSION: Interval improvement of the small bowel dilatation although residuum mildly dilated proximal small bowel loops with abnormally thickened wall. Electronically Signed: Wayne Cooper MD at 14:08 EDT , CC: Dr. Sophie Huitron MD; Dr. Bubba Byers DO Duck Farmer: Signed Normal [facility] Basic Metabolic Profile (BMP )on 01-10-2024 BUN/CRE 19.6 RATIO Normal 10-20 [facility] Comment on above: Performed By: #### L 501.5200, L501.2300, L100.0100, L503.6005, L500.2500 #### [facility] Laboratory [address] [place], [address] CA,Total 9.1 mg/dL Normal 8.5-10.1 [facility] Comment on above: Performed By: #### L 501.5200, L501.2300, L100.0100, L503.6005, L500.2500 #### [facility] [address] [place], [address] Chloride [Moles/Vol] 107 mmol/L Normal 98-107 [facility] Comment on above: Performed By: #### L 501.5200, L501.2300, L100.0100, L503.6005, L500.2500 #### [facility] [address] [place], [address] CO2 [Moles/Vol] 25.0 mmol/L Normal 21.0-32.0 [facility] Comment on above: Performed By: #### L 501.5200, L501.2300, L100.0100, L503.6005, L500.2500 #### [facility] [address] [place], [address] Creatinine [Mass/Vol] 0.87 mg/dL Normal 0.55-1.02 [facility] Comment on above: Result Comment: The validity of the calculated GFR GFRAA in patients over 70 years has not been determined. Clinical correlation is essential. Performed By: #### L 501.5200, L501.2300, L100.0100, L503.6005, L500.2500 #### [facility] [address] [place], [address] ECRCL 73.74 ml/min Normal [facility] Comment on above: Performed By: #### L 501.5200, L501.2300, L100.0100, L503.6005, L500.2500 #### [facility] [address] [place], [address] EST GFR - AA 88 mL/min Normal >60 [facility] Comment on above: Result Comment: Afri can Slovenian GFR Calc Performed By: #### L 501.5200, L501.2300, L100.0100, L503.6005, L500.2500 #### [facility] [address] [place], [address] GAP 9 Normal 5-15 [facility] Comment on above: Performed By: #### L 501.5200, L501.2300, L100.0100, L503.6005, L500.2500 #### [facility] [address] [place], [address] GFR/1.73 sq M.predicted among non-blacks MDRD (S/P/Bld) [Vol rate/Area] 73 mL/min/{1.73_m2} Normal >60 [facility] Comment on above: Result Comment: Non- GFR Calc Performed By: #### L 501.5200, L501.2300, L100.0100, L503.6005, L500.2500 #### [facility] [address] [place], [address] Glucose [Mass/Vol] 187 mg/dL High 74-106 [facility] Comment on above: Result Comment: Fast ing Glucose result greater than or equal to 126 mg/dL suggests DIABETES MELLITUS per A.D.A. criteria. Performed By: #### L 501.5200, L501.2300, L100.0100, L503.6005, L500.2500 #### [facility] [address] [place], [address] Potassium [Moles/Vol] 3.6 mmol/L Normal 3.5-5.1 [facility] Comment on above: Performed By: #### L 501.5200, L501.2300, L100.0100, L503.6005, L500.2500 #### [facility] [address] [place], [address] Sodium [Moles/Vol] 141 mmol/L Normal 136-145 [facility] Comment on above: Performed By: #### L 501.5200, L501.2300, L100.0100, L503.6005, L500.2500 #### [facility] [address] [place], [address] Urea nitrogen [Mass/Vol] 17 mg/dL Normal 7-18 [facility] Comment on above: Performed By: #### L 501.5200, L501.2300, L100.0100, L503.6005, L500.2500 #### [facility] [address] [place], [address] CBC W/Diff, Automatedon 07-2 Absolute Lymph 2.50 X10 3/uL Normal 0.83-4.51 [facility] Comment on above: Performed By: #### L 501.5200, L501.2300, L100.0100, L503.6005, L500.2500 #### [facility] [address] [place], [address] Absolute Neut 8.9 X10 3/uL High 2.0-7.7 [facility] Comment on above: Performed By: #### L 501.5200, L501.2300, L100.0100, L503.6005, L500.2500 #### [facility] [address] [place], [address] Basophils/100 WBC (Bld) 0.5 % Normal 0-1 [facility] Comment on above: Performed By: #### L 501.5200, L501.2300, L100.0100, L503.6005, L500.2500 #### [facility] [address] [place], [address] Eosinophils/100 WBC (Bld) 0.5 % Normal 0-5 [facility] Comment on above: Performed By: #### L 501.5200, L501.2300, L100.0100, L503.6005, L500.2500 #### [facility] [address] [place], [address] Erythrocyte distribution width (RBC) [Ratio] 14.0 % Normal 11.6-14.6 [facility] Comment on above: Performed By: #### L 501.5200, L501.2300, L100.0100, L503.6005, L500.2500 #### [facility] [address] [place], [address] Hematocrit (Bld) [Volume fraction] 41.4 % Normal 37-47 [facility] Comment on above: Performed By: #### L 501.5200, L501.2300, L100.0100, L503.6005, L500.2500 #### [facility] [address] [place], [address] Hemoglobin (Bld) [Mass/Vol] 13.7 g/dL Normal 12.0-15.0 [facility] Comment on above: Performed By: #### L 501.5200, L501.2300, L100.0100, L503.6005, L500.2500 #### [facility] [address] [place], [address] IG% 0.700 Normal 0.0-0.9 [facility] Comment on above: Result Comment: IG% - Immature Granulocytes (promyelocytes, myelocytes and metamyelocytes) > 1% indicates that a LEFT SHIFT is Present. Performed By: #### L 501.5200, L501.2300, L100.0100, L503.6005, L500.2500 #### [facility] [address] [place], [address] Lymphocytes/100 WBC (Bld) 20.6 % Normal 19-41 [facility] Comment on above: Performed By: #### L 501.5200, L501.2300, L100.0100, L503.6005, L500.2500 #### [facility] [address] [place], [address] MCH (RBC) [Entitic mass] 29.0 pg Normal 27.0-32.0 [facility] Comment on above: Performed By: #### L 501.5200, L501.2300, L100.0100, L503.6005, L500.2500 #### [facility] [address] [place], [address] MCHC (RBC) [Mass/Vol] 33.1 g/dL Normal 32-36 [facility] Comment on above: Performed By: #### L 501.5200, L501.2300, L100.0100, L503.6005, L500.2500 #### [facility] [address] [place], [address] MCV (RBC) [Entitic vol] 87.5 fL Normal 81-99 [facility] Comment on above: Performed By: #### L 501.5200, L501.2300, L100.0100, L503.6005, L500.2500 #### [facility] [address] [place], [address] Monocytes/100 WBC (Bld) 4.5 % Normal 0-10 [facility] Comment on above: Performed By: #### L 501.5200, L501.2300, L100.0100, L503.6005, L500.2500 #### [facility] [address] [place], [address] Neutrophils/100 WBC (Bld) 73.2 % High 47-70 [facility] Comment on above: Performed By: #### L 501.5200, L501.2300, L100.0100, L503.6005, L500.2500 #### [facility] [address] [place], [address] Nucleated RBC (Bld) [#/Vol] 0 10*3/uL Normal 0-5 [facility] Comment on above: Performed By: #### L 501.5200, L501.2300, L100.0100, L503.6005, L500.2500 #### [facility] [address] [place], [address] Platelet mean volume (Bld) [Entitic vol] 10.3 fL Normal 6.2-12.0 [facility] Comment on above: Performed By: #### L 501.5200, L501.2300, L100.0100, L503.6005, L500.2500 #### [facility] [address] [place], [address] Platelets (Bld) [#/Vol] 205 10*3/uL Normal 150-450 [facility] Comment on above: Performed By: #### L 501.5200, L501.2300, L100.0100, L503.6005, L500.2500 #### [facility] [address] [place], [address] RBC (Bld) [#/Vol] 4.73 10*6/uL Normal 4.2-5.4 [facility] Comment on above: Performed By: #### L 501.5200, L501.2300, L100.0100, L503.6005, L500.2500 #### [facility] [address] [place], [address] RDW SD 44.6 fl High 35.1-43.9 [facility] Comment on above: Performed By: #### L 501.5200, L501.2300, L100.0100, L503.6005, L500.2500 #### [facility] [address] [place], [address] WBC (Bld) [#/Vol] 12.2 10*3/uL High 4.4-11.0 [facility] Comment on above: Performed By: #### L 501.5200, L501.2300, L100.0100, L503.6005, L500.2500 #### [facility] [address] [place], [address] Emergency Department Summary on 01-10-2024 Emergency Department Summary [facility] Medical Records Department [address] [place] [address] Emergency Department Summary 01/10/24 MR#: [id number] Acct: [id number] Name: JODIE CHILEL Darcy Rep #: [id number] : 1970 53 From: Bubba Byers DO PCP: Dr. Sophie Huitron MD Status:REG ER Location: ED HPI History of Present Illness Chief Complaint: Abd Pain [facility] PFS Medical History Chronic headaches Diabetes Chronic pain Endometrial polyp Wears glasses Depression Anxiety Alcohol use Arthritis High cholesterol Injury of back Migraine headache Smoker CPAP (continuous positive airway pressure) dependence Sleep apnea History of stress test Hypertension Diabetes mellitus type 2 in obese Hypothyroidism Bipolar disorder Asthma Home Medications ???Medication ???Instructions ???Recorded ???Last Taken ???Type atorvastatin 10 mg tablet 10 mg PO DAILY cholesterol lowering 02/27/16 09/04/18 11:00 History levothyroxine 25 mcg tablet 25 mcg PO DAILY thyroid 02/27/16 01/28/21 08:00 History albuterol sulfate 90 mcg/actuation 2 puff inhalation Q4H PRN PRN 03/23/18 08/29/18 15:00 History aerosol inhaler (ProAir HFA) shortness of breath metformin 1,000 mg tablet 1,000 mg PO BID blood sugar 03/23/18 09/04/18 22:00 History insulin glargine 100 unit/mL (3 18 unit SQ BREAKFAST 05/10/19 Unknown History mL) subcutaneous pen alpha lipoic acid 600 mg capsule 600 mg PO DAILY 01/21/21 Unknown History ipratropium bromide 17 1 inh inhalation DAILY 01/21/21 Unknown History mcg/actuation HFA aerosol inhaler (Atrovent HFA) trazodone 300 mg tablet 300 mg PO QHS 01/21/21 Unknown History vitamin B12 1 mg-folic acid 0.8 mg 1 tab PO DAILY 01/21/21 Unknown History tablet dulaglutide 0.75 mg/0.5 mL 1.5 mg subcut QWEEK #2 mL 08/05/23 Unknown Rx subcutaneous pen injector (Trulicity) pregabalin 150 mg capsule 150 mg PO BID 01/03/24 Unknown History topiramate 25 mg tablet 25 mg PO QHS headache 01/03/24 Unknown History topiramate 50 mg tablet 50 mg PO QHS 01/03/24 Unknown History trospium 20 mg tablet 20 mg PO QHS 01/03/24 Unknown History ondansetron 4 mg disintegrating 4 mg PO Q8H PRN PRN Nausea #10 tabs 01/10/24 Unknown Rx tablet Allergy/AdvReac Type Severity Reaction Status Date / Time latex Allergy Hives Verified 01/10/24 12:14 hydromorphone (From Dilaudid) AdvReac Vomiting Verified 01/10/24 12:14 Surgical History S/P hysterectomy History of appendectomy History of cholecystectomy History of back surgery Previous back surgery Hx of appendectomy History of cholecystectomy Social History Smoking Status: Current every day smoker tobacco type: e-cigarettes substance use type: does not use EXAM Physical Exam Const Vital Signs: 01/10/24 12:14 01/10/24 14:14 Temperature 98 F Temperature Source Temporal Pulse Rate 105 H 81 Respiratory Rate 16 18 Blood Pressure 135/89 H 118/81 H Blood Pressure Mean 104 93 Pulse Ox 98 99 Oxygen Delivery Method Room Air Room Air [facility] Narrative Medical decision making narrative: HISTORY OF PRESENT ILLNESS: 53-year-old female past medical history of alcohol abuse, anxiety, type 2 diabetes, bipolar disorder, hypertension, JAELYN, status post appendectomy and cholecystectomy, presents abdominal pain nausea vomiting. She states REVIEW OF SYSTEMS: Pertinent positives: Abdominal pain, nausea, vomiting Pertinent negatives: Fever, blood in stool, chest pain, shortness of breath PHYSICAL EXAM: Nursing triage notes reviewed, Vital signs reviewed Constitutional: please see mdm HENT: MMM Eyes: Pupils equal round and reactive to light, Extraocular muscles intact Neck: No stridor, no JVD, full neck ROM Lungs: Clear to auscultation, No wheezing or rales. No increased work of breathing, no conversational dyspnea, no accessory muscle use, no nasal flaring. No respiratory distress noted Heart: Regular rate and rhythm, No murmurs, No rubs and No gallops, 2+ distal pulses (radial, femoral, posterior tibial) in all extremities Abdomen: Soft, there is no tenderness, rigidity, rebound or guarding, no obvious peritoneal signs, no palpable pulsatile abdominal masses, no auscultated abdominal bruit : No CVAT Extremities: No edema Neuro: No focal neurological deficits, cranial nerves II through XII intact, 5/5 strength in all extremities. Intact sensation to light touch in all extremities, 2+ reflexes bilateral patella tendons. Normal gait. No ataxia. Skin: No rash or lesions noted MEDICAL DECISION MAKING: Chief Complaint: Abdominal pain External records reviewed: Prior imaging reviewed: CT scan abdomen pelvis fr (more content not included)... Normal [facility] Lactic Acidon 01-10-2024 Lactate [Moles/Vol] 1.7 mmol/L Normal 0.4-1.9 [facility] Comment on above: Order Comment: Y Performed By: #### L 501.5200, L501.2300, L100.0100, L503.6005, L500.2500 #### [facility] [address] [place], [address] Lipaseon 01-10-2024 Lipase [Catalytic activity/Vol] 23 U/L Normal 13-75 [facility] Comment on above: Result Comment: Janeen del rio note: LIPASE revised reference range effective 22. New Lipase methodology. Expected to produce lower values than the previous assay method. NEW Reference Range: 13 - 75 U/L Performed By: #### L 501.5200, L501.2300, L100.0100, L503.6005, L500.2500 #### [facility] [address] [place], [address] Liver Profileon 01-10-2024 Albumin [Mass/Vol] 3.5 g/dL Normal 3.2-5.0 [facility] Comment on above: Performed By: #### L 501.5200, L501.2300, L100.0100, L503.6005, L500.2500 #### [facility] [address] [place], [address] ALK P 80 U/L Normal 45-117 [facility] Comment on above: Performed By: #### L 501.5200, L501.2300, L100.0100, L503.6005, L500.2500 #### [facility] [address] [place], [address] ALT [Catalytic activity/Vol] 37 U/L Normal 13-56 [facility] Comment on above: Performed By: #### L 501.5200, L501.2300, L100.0100, L503.6005, L500.2500 #### [facility] [address] [place], [address] AST [Catalytic activity/Vol] 25 U/L Normal 15-37 [facility] Comment on above: Performed By: #### L 501.5200, L501.2300, L100.0100, L503.6005, L500.2500 #### [facility] [address] [place], [address] Bilirubin [Mass/Vol] 0.50 mg/dL Normal 0.20-1.00 [facility] Comment on above: Result Comment: For patients on eltrombopag therapy, use of Dimension Downing TBIL is not recommended. Performed By: #### L 501.5200, L501.2300, L100.0100, L503.6005, L500.2500 #### [facility] [address] [place], [address] Bilirubin.direct [Mass/Vol] 0.17 mg/dL Normal 0.00-0.30 [facility] Comment on above: Performed By: #### L 501.5200, L501.2300, L100.0100, L503.6005, L500.2500 #### [facility] [address] [place], [address] Globulin (S) [Mass/Vol] 3.7 g/dL Normal 2.2-4.2 [facility] Comment on above: Performed By: #### L 501.5200, L501.2300, L100.0100, L503.6005, L500.2500 #### [facility] [address] [place], [address] T PROT 7.2 g/dL Normal 6.4-8.2 [facility] Comment on above: Performed By: #### L 501.5200, L501.2300, L100.0100, L503.6005, L500.2500 #### [facility] [address] [place], [address] ,Urineon 01-10-2024 Beta HCG ( test) Ql (U) Negative Normal [facility] Comment on above: Order Comment: CLEAN CATCH Result Comment: Very dilute urine specimens, as indicated by a low specific gravity, may not contain technical sales representative levels of hCG. If is still suspected, a first morning urine specimen should be collected 48 hours later and tested. Performed By: #### L 400.7600, L400.2010 ####[facility] [address] [place], [address] Urinalysis, Routine (Dipstic k)on 01-10-2024 BILIRUBIN URINE Negative Normal Negative [facility] Comment on above: Order Comment: CLEAN CATCH Performed By: #### L 400.0, L4 ####[facility] [address] [place], [address] Clarity (U) Sl. Cloudy Normal Clear [facility] Comment on above: Order Comment: CLEAN CATCH Performed By: #### L 400.7600, L4 ####[facility] [address] [place], [address] Color (U) Yellow Normal Yellow [facility] Comment on above: Order Comment: CLEAN CATCH Performed By: #### L 400.0, L4 ####[facility] [address], [address] GLUCOSE, UR Normal Normal Normal [facility] Comment on above: Order Comment: CLEAN CATCH Performed By: #### L 400.0, L4 ####[facility] [address] [place], [address] KETONE UR Negative Normal Negative [facility] Comment on above: Order Comment: CLEAN CATCH Performed By: #### L 400.7600, L400 ####[facility] [address] [place], [address] LEUK ESTERASE 25 /ul Abnormal Negative [facility] Comment on above: Order Comment: CLEAN CATCH Performed By: #### L 400.7600, L400 ####[facility] [address] [place], [address] Nitrite Ql (U) Negative Normal Negative [facility] Comment on above: Order Comment: CLEAN CATCH Performed By: #### L 400.7600, L400.2010 ####[facility] [address] [place], [address] OCCULT BLOOD-UR Negative Normal Negative [facility] Comment on above: Order Comment: CLEAN CATCH Performed By: #### L 400.7600, L400.2010 ####[facility] [address] [place], [address] pH UR 7.0 Normal 5.0 - 8.0 [facility] Comment on above: Order Comment: CLEAN CATCH Performed By: #### L 400.7600, L400.2010 ####[facility] [address] [place], [address] PROT DIPSTX 15 mg/dl Abnormal Negative [facility] Comment on above: Order Comment: CLEAN CATCH Performed By: #### L 400.7600, L400.2010 ####[facility] [address] [place], [address] SP.GR. DIPSTX 1.015 Normal 1.002-1.030 [facility] Comment on above: Order Comment: CLEAN CATCH Performed By: #### L 400.7600, L400.2010 ####[facility] [address] [place], [address] UROBILI Normal Normal Normal [facility] Comment on above: Order Comment: CLEAN CATCH Performed By: #### L 400.7600, L400 ####[facility] [address] [place], [address] Basic Metabolic Profile (BMP )on 01-03-2024 BUN/CRE 27.3 RATIO High 10-20 [facility] Comment on above: Performed By: #### L 501.5200, L501.2300, L100.0100, L503.6005, L500.2500 #### [facility] [address] [place], [address] CA,Total 9.2 mg/dL Normal 8.5-10.1 [facility] Comment on above: Performed By: #### L 501.5200, L501.2300, L100.0100, L503.6005, L500.2500 #### [facility] [address] [place], [address] Chloride [Moles/Vol] 105 mmol/L Normal 98-107 [facility] Comment on above: Performed By: #### L 501.5200, L501.2300, L100.0100, L503.6005, L500.2500 #### [facility] [address] [place], [address] CO2 [Moles/Vol] 29.0 mmol/L Normal 21.0-32.0 [facility] Comment on above: Performed By: #### L 501.5200, L501.2300, L100.0100, L503.6005, L500.2500 #### [facility] [address] [place], [address] Creatinine [Mass/Vol] 0.80 mg/dL Normal 0.55-1.02 [facility] Comment on above: Result Comment: The validity of the calculated GFR GFRAA in patients over 70 years has not been determined. Clinical correlation is essential. Performed By: #### L 501.5200, L501.2300, L100.0100, L503.6005, L500.2500 #### [facility] [address] [place], [address] ECRCL 83.01 ml/min Normal [facility] Comment on above: Performed By: #### L 501.5200, L501.2300, L100.0100, L503.6005, L500.2500 #### [facility] [address] [place], [address] EST GFR - AA 96 mL/min Normal >60 [facility] Comment on above: Result Comment: Afri can Slovenian GFR Calc Performed By: #### L 501.5200, L501.2300, L100.0100, L503.6005, L500.2500 #### [facility] [address] [place], [address] GAP 6 Normal 5-15 [facility] Comment on above: Performed By: #### L 501.5200, L501.2300, L100.0100, L503.6005, L500.2500 #### [facility] [address] [place], [address] GFR/1.73 sq M.predicted among non-blacks MDRD (S/P/Bld) [Vol rate/Area] 79 mL/min/{1.73_m2} Normal >60 [facility] Comment on above: Result Comment: Non- GFR Calc Performed By: #### L 501.5200, L501.2300, L100.0100, L503.6005, L500.2500 #### [facility] [address] [place], [address] Glucose [Mass/Vol] 188 mg/dL High 74-106 [facility] Comment on above: Result Comment: Fast ing Glucose result greater than or equal to 126 mg/dL suggests DIABETES MELLITUS per A.D.A. criteria. Performed By: #### L 501.5200, L501.2300, L100.0100, L503.6005, L500.2500 #### [facility] [address] [place], [address] Potassium [Moles/Vol] 4.1 mmol/L Normal 3.5-5.1 [facility] Comment on above: Performed By: #### L 501.5200, L501.2300, L100.0100, L503.6005, L500.2500 #### [facility] [address] [place], [address] Sodium [Moles/Vol] 140 mmol/L Normal 136-145 [facility] Comment on above: Performed By: #### L 501.5200, L501.2300, L100.0100, L503.6005, L500.2500 #### [facility] [address] [place], [address] Urea nitrogen [Mass/Vol] 22 mg/dL High 7-18 [facility] Comment on above: Performed By: #### L 501.5200, L501.2300, L100.0100, L503.6005, L500.2500 #### [facility] [address] [place], [address] Bedside Glucoseon - FINGERSTICK GLU 204 mg/dL High 74-106 [facility] Comment on above: Result Comment: JANINE GEMENT OF PATIENT CARE PER NURSING PROTOCOL Performed By: #### L 501.5200, L501.2300, L100.0100, L503.6005, L500.2500 #### [facility] [address] [place], [address] FINGERSTICK GLU 167 mg/dL High 74-106 [facility] Comment on above: Result Comment: JANINE GEMENT OF PATIENT CARE PER NURSING PROTOCOL Performed By: #### L 501.5200, L501.2300, L100.0100, L503.6005, L500.2500 #### [facility] [address] [place], [address] FINGERSTICK GLU 190 mg/dL High 74-106 [facility] Comment on above: Result Comment: JANINE GEMENT OF PATIENT CARE PER NURSING PROTOCOL Performed By: #### L 501.080 #### [facility] [address] [place], [address] CBC W/Diff, Automatedon 07- Absolute Lymph 3.14 X10 3/uL Normal 0.83-4.51 [facility] Comment on above: Performed By: #### L 501.5200, L501.2300, L100.0100, L503.6005, L500.2500 #### [facility] [address] [place], [address] Absolute Neut 5.3 X10 3/uL Normal 2.0-7.7 [facility] Comment on above: Performed By: #### L 501.5200, L501.2300, L100.0100, L503.6005, L500.2500 #### [facility] [address] [place], [address] Basophils/100 WBC (Bld) 0.5 % Normal 0-1 [facility] Comment on above: Performed By: #### L 501.5200, L501.2300, L100.0100, L503.6005, L500.2500 #### [facility] [address] [place], [address] Eosinophils/100 WBC (Bld) 2.6 % Normal 0-5 [facility] Comment on above: Performed By: #### L 501.5200, L501.2300, L100.0100, L503.6005, L500.2500 #### [facility] [address] [place], [address] Erythrocyte distribution width (RBC) [Ratio] 14.0 % Normal 11.6-14.6 [facility] Comment on above: Performed By: #### L 501.5200, L501.2300, L100.0100, L503.6005, L500.2500 #### [facility] [address] [place], [address] Hematocrit (Bld) [Volume fraction] 42.9 % Normal 37-47 [facility] Comment on above: Performed By: #### L 501.5200, L501.2300, L100.0100, L503.6005, L500.2500 #### [facility] [address] [place], [address] Hemoglobin (Bld) [Mass/Vol] 14.1 g/dL Normal 12.0-15.0 [facility] Comment on above: Performed By: #### L 501.5200, L501.2300, L100.0100, L503.6005, L500.2500 #### [facility] [address] [place], [address] IG% 0.200 Normal 0.0-0.9 [facility] Comment on above: Result Comment: IG% - Immature Granulocytes (promyelocytes, myelocytes and metamyelocytes) > 1% indicates that a LEFT SHIFT is Present. Performed By: #### L 501.5200, L501.2300, L100.0100, L503.6005, L500.2500 #### [facility] [address] [place], [address] Lymphocytes/100 WBC (Bld) 33.0 % Normal 19-41 [facility] Comment on above: Performed By: #### L 501.5200, L501.2300, L100.0100, L503.6005, L500.2500 #### [facility] [address] [place], [address] MCH (RBC) [Entitic mass] 29.0 pg Normal 27.0-32.0 [facility] Comment on above: Performed By: #### L 501.5200, L501.2300, L100.0100, L503.6005, L500.2500 #### [facility] [address] [place], [address] MCHC (RBC) [Mass/Vol] 32.9 g/dL Normal 32-36 [facility] Comment on above: Performed By: #### L 501.5200, L501.2300, L100.0100, L503.6005, L500.2500 #### [facility] [address] [place], [address] MCV (RBC) [Entitic vol] 88.1 fL Normal 81-99 [facility] Comment on above: Performed By: #### L 501.5200, L501.2300, L100.0100, L503.6005, L500.2500 #### [facility] [address] [place], [address] Monocytes/100 WBC (Bld) 7.6 % Normal 0-10 [facility] Comment on above: Performed By: #### L 501.5200, L501.2300, L100.0100, L503.6005, L500.2500 #### [facility] [address] [place], [address] Neutrophils/100 WBC (Bld) 56.1 % Normal 47-70 [facility] Comment on above: Performed By: #### L 501.5200, L501.2300, L100.0100, L503.6005, L500.2500 #### [facility] [address] [place], [address] Nucleated RBC (Bld) [#/Vol] 0 10*3/uL Normal 0-5 [facility] Comment on above: Performed By: #### L 501.5200, L501.2300, L100.0100, L503.6005, L500.2500 #### [facility] [address] [place], [address] Platelet mean volume (Bld) [Entitic vol] 10.8 fL Normal 6.2-12.0 [facility] Comment on above: Performed By: #### L 501.5200, L501.2300, L100.0100, L503.6005, L500.2500 #### [facility] [address] [place], [address] Platelets (Bld) [#/Vol] 189 10*3/uL Normal 150-450 [facility] Comment on above: Performed By: #### L 501.5200, L501.2300, L100.0100, L503.6005, L500.2500 #### [facility] [address] [place], [address] RBC (Bld) [#/Vol] 4.87 10*6/uL Normal 4.2-5.4 [facility] Comment on above: Performed By: #### L 501.5200, L501.2300, L100.0100, L503.6005, L500.2500 #### [facility] [address] [place], [address] RDW SD 45.1 fl High 35.1-43.9 [facility] Comment on above: Performed By: #### L 501.5200, L501.2300, L100.0100, L503.6005, L500.2500 #### [facility] [address] [place], [address] WBC (Bld) [#/Vol] 9.5 10*3/uL Normal 4.4-11.0 [facility] Comment on above: Performed By: #### L 501.5200, L501.2300, L100.0100, L503.6005, L500.2500 #### [facility] [address] [place], [address] Discharge Instructionon 12-17 Discharge Instruction [facility] Medical Records Department [address] [place] [address] Instructions for Home/Discharge Instructions 01/03/24 1631 MR#: [id number] Acct: [id number] Name: JODIE CHILEL Rep #: [id number] : 1970 53 From: Radha ALBA PAIanC PCP: Dr. Sophie Huitron MD Status:ADM TERRENCE Discharge Instructions Diet Discharge Diet: Light diet - advance as tolerated Activity Discharge Activity: Return to Normal Activity Follow Up Care Please Follow Up With: Luis Manuel Pate MD When: Follow-up as needed Test Results: Test results from this visit will be discussed in further detail at your follow-up appointment, if applicable. Discharge Plan Admission Admit Date/Time: 01/02/24 18:38 Primary Reason for Your Visit: Ileus Attending Provider: Luis Manuel Pate Primary Care Provider: Sophie Huitron Consulting Providers: Shree Bernabe Instructions Additional Instructions / Restrictions: You had a small bowel follow-through during your hospitalization, which did not demonstrate a bowel obstruction. Discharge Orders/Prescriptions Prescriptions: Continued atorvastatin 10 MG tablet 10 mg PO DAILY levothyroxine 25 MCG tablet 25 mcg PO DAILY metformin 1,000 MG tablet 1,000 mg PO BID albuterol sulfate [ProAir HFA] 1 PUFF inhaler 2 puff inhalation Q4H PRN PRN (Reason: shortness of breath) insulin glargine 100 UNIT/ML insulin pen 18 unit SQ BREAKFAST trazodone 300 mg tablet 300 mg PO QHS Patient Comments: TAKE 1 TABLET BY MOUTH EVERY DAY AT BEDTIME NEEDED vitamin G76-nufcc acid 1-0.8 mg Tablet 1 tab PO DAILY Atrovent HFA 17 mcg/actuation Hfa Aerosol Inhaler 1 inh INHALATION DAILY alpha lipoic acid 600 mg capsule 600 mg PO DAILY Patient Comments: TAKE 1 CAPSULE BY MOUTH EVERY DAY topiramate 25 mg tablet 25 mg PO QHS topiramate 50 mg tablet 50 mg PO QHS trospium 20 mg tablet 20 mg PO QHS pregabalin 150 mg capsule 150 mg PO BID Trulicity 0.75 mg/0.5 mL pen injector 1.5 mg subcut QWEEK Qty: 2 0RF Referrals / Follow Up: Sophie Huitron MD [Primary Care Provider] - Disposition Disposition (needs filled in before D/C Order can be placed): Home, Self Care 01/03/24 1631 Radha ALBA PA-C CC: Dr. Sophie Huitron MD; Dr. Shree Bernabe, Signed Normal [facility] Magnesiumon 01-03-2024 Magnesium [Mass/Vol] 1.8 mg/dL Normal 1.6-2.6 [facility] Comment on above: Performed By: #### L 501.5200, L501.2300, L100.0100, L503.6005, L500.2500 #### [facility] [address] [place], [address] Phosphoruson 01-03-2024 Phosphate [Mass/Vol] 4.5 mg/dL Normal 2.5-4.9 [facility] Comment on above: Performed By: #### L 501.5200, L501.2300, L100.0100, L503.6005, L500.2500 #### [facility] [address] [place], [address] Small Bowel Series Onlyon Small Bowel Series Only [facility] Imaging Services [address] [place] [address] Small Bowel Series Only MR#: [id number] Acct: [id number] Name: JODIE CHILEL Rep #: [id number] : 1970 F 53 From: Osiel Del Angel MD PCP: Dr. Sophie Huitron MD Status: ADM TERRENCE Study: Small Bowel Series Only Date of Exam: 01/03/24 Exam# [id number] Ordering Dr: Luis Manuel Pate MD [id number] CLINICAL HISTORY: Female, 53 years old. Abdominal pain PROCEDURE: Small bowel follow-through TECHNIQUE: (All elements of maximal sterile barrier technique followed, including US elements as applicable) Gastrografin was administered orally and multiple images of the abdomen were obtained over time. FINDINGS: An immediate image demonstrates Gastrografin throughout the stomach. The 3 hour image demonstrates oral contrast throughout the small bowel and colon without evidence of bowel dilatation to suggest bowel obstruction. RAD/Small Bowel Series Only IMPRESSION: No bowel obstruction. Electronically Signed: Osiel Del Angel MD at 14:01 EDT , CC: Dr. Sophie Huitron MD; Dr. Luis Manuel Pate MD Duck Farmer: Signed Normal [facility] Abdomen/Pelvis W IV Cont ONL Yon 01-02-2024 Abdomen/Pelvis W IV Cont ONLY [facility] Imaging Services [address] [place] [address] Abdomen/Pelvis W IV Cont ONLY MR#: [id number] Acct: [id number] Name: JODIE CHILEL Rep #: [id number] : 1970 F 53 From: Darryl Mendez DO PCP: Dr. Sophie Huitron MD Status: REG ER Study: Abdomen/Pelvis W IV Cont ONLY Date of Exam: Exam# [id number] Ordering Dr: Sukumar Stanton DO [id number] STUDY: CT ABDOMEN AND PELVIS WITH CONTRAST REASON FOR EXAM: Female, 53 years old. llq abdominal pain RADIATION DOSAGE (If Supplied By Facility): CTDIvol = ( 20.37 ) mGy, DLP = ( 1297.78 ) mGycm TECHNIQUE: Transaxial images were obtained from the dome of the diaphragm to the symphysis pubis without oral contrast. ISOVUE 300-100ml was administered. Sagittal and coronal images were reconstructed. Individualized dose optimization techniques were used for this CT. COMPARISON: None. FINDINGS: The visualized lung bases are unremarkable. The visualized portions of the heart are within normal limits. Normal liver. Status post cholecystectomy. No significant dilatation of the extrahepatic biliary system. Normal spleen. Normal pancreas. Normal bilateral adrenal glands. Normal right kidney. Normal left kidney. Normal visualized stomach. Fluid distended proximal small intestine with distal decompressed loops. This may be due to a focal ileus or possibly developing obstruction. Follow-up is needed. Normal colon. The appendix is not visualized. Normal abdominal aorta. Normal inferior vena cava. Normal retroperitoneum. Normal urinary bladder. Normal abdominal wall. Normal osseous structures. CT/Abdomen/Pelvis W IV Cont ONLY IMPRESSION: Fluid distended proximal small intestine with distal decompressed loops. This may be due to a focal ileus or possibly developing obstruction. Follow-up is needed. Electronically Signed: Darryl Mendez DO at 17:36 EDT , CC: Dr. Sukumar Stanton DO; Dr. Sophie Huitron MD [place]: Signed Normal [facility] CBC W/Diff, Automatedon 12-17 Absolute Lymph 3.81 X10 3/uL Normal 0.83-4.51 [facility] Comment on above: Performed By: #### L 500.4050, L100.0100, L501.2450 ####[facility] [address] [place], [address] Absolute Neut 7.1 X10 3/uL Normal 2.0-7.7 [facility] Comment on above: Performed By: #### L 500.4050, L100.0100, L501.2450 ####[facility] [address] [place], [address] Basophils/100 WBC (Bld) 0.5 % Normal 0-1 [facility] Comment on above: Performed By: #### L 500.4050, L100.0100, L501.2450 ####[facility] [address] [place], [address] Eosinophils/100 WBC (Bld) 0.9 % Normal 0-5 [facility] Comment on above: Performed By: #### L 500.4050, L100.0100, L501.2450 ####[facility] [address] [place], [address] Erythrocyte distribution width (RBC) [Ratio] 13.8 % Normal 11.6-14.6 [facility] Comment on above: Performed By: #### L 500.4050, L100.0100, L501.2450 ####[facility] [address] [place], [address] Hematocrit (Bld) [Volume fraction] 46.8 % Normal 37-47 [facility] Comment on above: Performed By: #### L 500.4050, L100.0100, L501.2450 ####[facility] [address] [place], [address] Hemoglobin (Bld) [Mass/Vol] 15.4 g/dL High 12.0-15.0 [facility] Comment on above: Performed By: #### L 500.4050, L100.0100, L501.2450 ####[facility] [address] [place], [address] IG% 0.600 Normal 0.0-0.9 [facility] Comment on above: Result Comment: IG% - Immature Granulocytes (promyelocytes, myelocytes and metamyelocytes) > 1% indicates that a LEFT SHIFT is Present. Performed By: #### L 500.4050, L100.0100, L501.2450 ####[facility] [address] [place], [address] Lymphocytes/100 WBC (Bld) 31.9 % Normal 19-41 [facility] Comment on above: Performed By: #### L 500.4050, L100.0100, L501.2450 ####[facility] [address] [place], [address] MCH (RBC) [Entitic mass] 28.5 pg Normal 27.0-32.0 [facility] Comment on above: Performed By: #### L 500.4050, L100.0100, L501.2450 ####[facility] [address] [place], [address] MCHC (RBC) [Mass/Vol] 32.9 g/dL Normal 32-36 [facility] Comment on above: Performed By: #### L 500.4050, L100.0100, L501.2450 ####[facility] [address] [place], [address] MCV (RBC) [Entitic vol] 86.7 fL Normal 81-99 [facility] Comment on above: Performed By: #### L 500.4050, L100.0100, L501.2450 ####[facility] [address] [place], [address] Monocytes/100 WBC (Bld) 6.9 % Normal 0-10 [facility] Comment on above: Performed By: #### L 500.4050, L100.0100, L501.2450 ####[facility] [address] [place], [address] Neutrophils/100 WBC (Bld) 59.2 % Normal 47-70 [facility] Comment on above: Performed By: #### L 500.4050, L100.0100, L501.2450 ####[facility] [address] [place], [address] Nucleated RBC (Bld) [#/Vol] 0 10*3/uL Normal 0-5 [facility] Comment on above: Performed By: #### L 500.4050, L100.0100, L501.2450 ####[facility] [address] [place], [address] Platelet mean volume (Bld) [Entitic vol] 10.2 fL Normal 6.2-12.0 [facility] Comment on above: Performed By: #### L 500.4050, L100.0100, L501.2450 ####[facility] [address] [place], [address] Platelets (Bld) [#/Vol] 250 10*3/uL Normal 150-450 [facility] Comment on above: Performed By: #### L 500.4050, L100.0100, L501.2450 ####[facility] [address] [place], [address] RBC (Bld) [#/Vol] 5.40 10*6/uL Normal 4.2-5.4 [facility] Comment on above: Performed By: #### L 500.4050, L100.0100, L501.2450 ####[facility] [address] [place], [address] RDW SD 43.5 fl Normal 35.1-43.9 [facility] Comment on above: Performed By: #### L 500.4050, L100.0100, L501.2450 ####[facility] [address] [place], [address] WBC (Bld) [#/Vol] 11.9 10*3/uL High 4.4-11.0 [facility] Comment on above: Performed By: #### L 500.4050, L100.0100, L501.2450 ####[facility] [address] [place], [address] Comprehensive Metabolic Prof [facility] 01-02-2024 Albumin [Mass/Vol] 4.1 g/dL Normal 3.2-5.0 [facility] Comment on above: Performed By: #### L 500.4050, L100.0100, L501.2450 ####[facility] [address] [place], [address] Albumin/Globulin [Mass ratio] 1.0 {ratio} Normal 0.9-2.4 [facility] Comment on above: Performed By: #### L 500.4050, L100.0100, L501.2450 ####[facility] [address] [place], [address] ALK P 89 U/L Normal 45-117 [facility] Comment on above: Performed By: #### L 500.4050, L100.0100, L501.2450 ####[facility] [address] [place], [address] ALT [Catalytic activity/Vol] 47 U/L Normal 13-56 [facility] Comment on above: Performed By: #### L 500.4050, L100.0100, L501.2450 ####[facility] [address] [place], [address] AST [Catalytic activity/Vol] 40 U/L High 15-37 [facility] Comment on above: Performed By: #### L 500.4050, L100.0100, L501.2450 ####[facility] [address] [place], [address] Bilirubin [Mass/Vol] 0.70 mg/dL Normal 0.20-1.00 [facility] Comment on above: Result Comment: For patients on eltrombopag therapy, use of Dimension Downing TBIL is not recommended. Performed By: #### L 500.4050, L100.0100, L501.2450 ####[facility] [address] [place], [address] BUN/CRE 19.6 RATIO Normal 10-20 [facility] Comment on above: Performed By: #### L 500.4050, L100.0100, L501.2450 ####[facility] [address] [place], [address] CA,Total 10.1 mg/dL Normal 8.5-10.1 [facility] Comment on above: Performed By: #### L 500.4050, L100.0100, L501.2450 ####[facility] [address] [place], [address] Chloride [Moles/Vol] 105 mmol/L Normal 98-107 [facility] Comment on above: Performed By: #### L 500.4050, L100.0100, L501.2450 ####[facility] [address] [place], [address] CO2 [Moles/Vol] 24.0 mmol/L Normal 21.0-32.0 [facility] Comment on above: Performed By: #### L 500.4050, L100.0100, L501.2450 ####[facility] [address] [place], [address] Creatinine [Mass/Vol] 0.92 mg/dL Normal 0.55-1.02 [facility] Comment on above: Result Comment: The validity of the calculated GFR GFRAA in patients over 70 years has not been determined. Clinical correlation is essential. Performed By: #### L 500.4050, L100.0100, L501.2450 ####[facility] [address] [place], [address] EST GFR - AA 82 mL/min Normal >60 [facility] Comment on above: Result Comment: Afri can Slovenian GFR Calc Performed By: #### L 500.4050, L100.0100, L501.2450 ####[facility] [address] [place], [address] GAP 10 Normal 5-15 [facility] Comment on above: Performed By: #### L 500.4050, L100.0100, L501.2450 ####[facility] [address] [place], [address] GFR/1.73 sq M.predicted among non-blacks MDRD (S/P/Bld) [Vol rate/Area] 68 mL/min/{1.73_m2} Normal >60 [facility] Comment on above: Result Comment: Non- GFR Calc Performed By: #### L 500.4050, L100.0100, L501.2450 ####[facility] [facility] [address] [place], [address] Globulin (S) [Mass/Vol] 4.3 g/dL High 2.2-4.2 [facility] Comment on above: Performed By: #### L 500.4050, L100.0100, L501.2450 ####[facility] [address] [place], [address] Glucose [Mass/Vol] 180 mg/dL High 74-106 [facility] Comment on above: Result Comment: Fast ing Glucose result greater than or equal to 126 mg/dL suggests DIABETES MELLITUS per A.D.A. criteria. Performed By: #### L 500.4050, L100.0100, L501.2450 ####[facility] [address] [place], [address] Potassium [Moles/Vol] 3.9 mmol/L Normal 3.5-5.1 [facility] Comment on above: Performed By: #### L 500.4050, L100.0100, L501.2450 ####[facility] [address] [place], [address] Sodium [Moles/Vol] 139 mmol/L Normal 136-145 [facility] Comment on above: Performed By: #### L 500.4050, L100.0100, L501.2450 ####[facility] [address] [place], [address] T PROT 8.4 g/dL High 6.4-8.2 [facility] Comment on above: Performed By: #### L 500.4050, L100.0100, L501.2450 ####[facility] [address] [place], [address] Urea nitrogen [Mass/Vol] 18 mg/dL Normal 7-18 [facility] Comment on above: Performed By: #### L 500.4050, L100.0100, L501.2450 ####[facility] [address] [place], [address] Emergency Department Summary on 01-02-2024 Emergency Department Summary [facility] Medical Records Department [address] [place] [address] Emergency Department Summary 01/02/24 MR#: [id number] Acct: [id number] Name: JODIE CHILEL Rep #: [id number] : 1970 53 From: Sukumar Stanton DO PCP: Dr. Sophie Huitron MD Status:REG ER Location: ED HPI HPI - GI History of Present Illness Chief Complaint: Abd Pain Narrative Narrative: 53-year-old female presenting with acute onset left-sided abdominal pain which began this morning. She denies fever but does have sweats. She describes the pain as stabbing. It is well localized to the left lower quadrant. She is nauseous and vomiting. Patient denies urinary or vaginal complaints. No history of kidney stone. No history of diverticulitis. Patient has history of cholecystectomy and appendectomy. No history of bowel obstruction. [facility] Medical History Endometrial polyp Wears glasses Depression Anxiety Alcohol use Arthritis High cholesterol Injury of back Migraine headache Smoker CPAP (continuous positive airway pressure) dependence Sleep apnea History of stress test Hypertension Diabetes mellitus type 2 in obese Hypothyroidism Bipolar disorder Asthma Home Medications ???Medication ???Instructions ???Recorded ???Last Taken ???Type atorvastatin 10 mg tablet 10 mg PO QHS cholesterol lowering 02/27/16 09/04/18 11:00 History levothyroxine 25 mcg tablet 25 mcg PO DAILY thyroid 02/27/16 01/28/21 08:00 History albuterol sulfate 90 mcg/actuation 2 puff inhalation Q4H PRN PRN 03/23/18 08/29/18 15:00 History aerosol inhaler (ProAir HFA) shortness of breath metformin 1,000 mg tablet 1,000 mg PO BID blood sugar 03/23/18 09/04/18 22:00 History insulin glargine 100 unit/mL (3 14 unit SQ BREAKFAST 05/10/19 Unknown History mL) subcutaneous pen lamotrigine 25 mg tablet (Lamictal) 150 mg PO DAILY 05/10/19 01/28/21 08:00 History alpha lipoic acid 600 mg capsule 600 mg PO DAILY 01/21/21 Unknown History buspirone 10 mg tablet 10 mg PO BID 01/21/21 Unknown History carbamazepine 300 mg 600 mg PO QHS 01/21/21 Unknown History capsule,extended release [id number] ipratropium bromide 17 1 inh inhalation DAILY 01/21/21 Unknown History mcg/actuation HFA aerosol inhaler (Atrovent HFA) trazodone 300 mg tablet 300 mg PO QHS 01/21/21 Unknown History vitamin B12 1 mg-folic acid 0.8 mg 1 tab PO DAILY 01/21/21 Unknown History tablet cyclobenzaprine 10 mg tablet 10 mg PO TID PRN Muscle Spasm #20 06/15/21 Unknown Rx TABLETS dulaglutide 0.75 mg/0.5 mL 1.5 mg subcut QWEEK #2 mL 08/05/23 Unknown Rx subcutaneous pen injector (Trulicity) Allergy/AdvReac Type Severity Reaction Status Date / Time latex Allergy Hives Verified 01/02/24 15:00 hydromorphone (From Dilaudid) AdvReac Vomiting Verified 01/02/24 15:00 Surgical History History of back surgery Previous back surgery Hx of appendectomy History of cholecystectomy Social History Smoking Status: Current every day smoker tobacco type: e-cigarettes substance use type: does not use ROS ROS ED Constitutional Constitutional ED: Denies chills, fever(s) or sweats Eyes Eyes: Denies blurry vision or change in vision ENT ENT ED: Denies ear pain or sore throat Cardiovascular Cardiovascular: Denies chest pain, palpitations or racing heartbeat Respiratory/Chest Respiratory/Chest: Denies cough, dyspnea or sputum Gastrointestinal Gastrointestinal: Reports abdominal pain, nausea and vomiting; Denies constipation or diarrhea Genitourinary Genitourinary ED: Denies dysuria, hematuria or urinary frequency Musculoskeletal Musculoskeletal: Denies arthralgias, myalgias or neck pain Integumentary Denies abscess, Abrasions or rash Neurologic Neurologic: Denies headache(s), paresthesias or weakness Psychiatric Psychiatric: Denies anxiety, depression, suicidal ideation or suicidal thoughts Endocrine Endocrinology: Denies polydipsia or polyuria EXAM Physical Exam Const Vital Signs: 01/02/24 15:00 01/02/24 17:00 Temperature 96.8 F L Temperature Source Temporal Pulse Rate 124 H 82 Respiratory Rate 20 H 18 Blood Pressure 132/95 H 138/94 H Blood Pressure Mean 107 108 Pulse Ox 97 95 Oxygen Delivery Method Room Air Positive well nourished General Appearance ED: NAD; Negative for pallor HEENT Reports moist mucous membranes normocephalic and atraumatic Eyes PERRL and EOMs intact bilaterally Resp normal respiratory effort and clear to auscultation bilaterally Cardio regular rate and regular rhythm GI Palpation: tender LLQ and periumbilical Back/Spine no CVA tenderness N (more content not included)... Normal [facility] Lactic Acidon 01-02-2024 Lactate [Moles/Vol] 1.6 mmol/L Normal 0.4-1.9 [facility] Comment on above: Order Comment: Y Performed By: #### L 501.5200, L501.2300, L100.0100, L503.6005, L500.2500 #### [facility] [address] [place], [place], [address] Lipaseon 01-02-2024 Lipase [Catalytic activity/Vol] 28 U/L Normal 13-75 [facility] Comment on above: Result Comment: Janeen del rio note: LIPASE revised reference range effective 22. New Lipase methodology. Expected to produce lower values than the previous assay method. NEW Reference Range: 13 - 75 U/L Performed By: #### L 500.4050, L100.0100, L501.2450 ####[facility] [address] [place], [address] Urinalysis, Completeon 07-16 -2024 CAST,HYALINE 0-5 SEEN Normal 0-5 [facility] Comment on above: Order Comment: CLEAN CATCH Performed By: #### L 501.5200, L501.2300, L100.0100, L503.6005, L500.2500 #### [facility] [address] [place], [address] EPI,SQUAMOUS 0-5 SEEN Normal 5-10 [facility] Comment on above: Order Comment: CLEAN CATCH Performed By: #### L 501.5200, L501.2300, L100.0100, L503.6005, L500.2500 #### [facility] [address] [place], [address] WBC 0-5 SEEN Normal 0-5 [facility] Comment on above: Order Comment: CLEAN CATCH Performed By: #### L 501.5200, L501.2300, L100.0100, L503.6005, L500.2500 #### [facility] [address] [place], [address] BACTERIA 0 SEEN Normal None Seen [facility] Comment on above: Order Comment: CLEAN CATCH Performed By: #### L 501.5200, L501.2300, L100.0100, L503.6005, L500.2500 #### [facility] [address] [place], [address] Mucus Ql (Urine sed) 0 SEEN Normal [facility] Comment on above: Order Comment: CLEAN CATCH Performed By: #### L 501.5200, L501.2300, L100.0100, L503.6005, L500.2500 #### [facility] [address] [place], [address] RBC 0 SEEN Normal 0-5 [facility] Comment on above: Order Comment: CLEAN CATCH Performed By: #### L 501.5200, L501.2300, L100.0100, L503.6005, L500.2500 #### [facility] [address] [place], [address] Basophil percentageOrdered B y: Sophie Huitron on 09-22-2023 Basophil percentage < 10.0 IU/mL <15 [facility] Bilirubin [Mass/Vol] 0.40 mg/dL 0.20-1.00 [facility] Comment on above: For patients on eltr ombopag therapy, use of Dimension [place] TBIL is not recommended. Chloride [Moles/Vol] 108 mmol/L 98-107 [facility] Cholesterol [Mass/Vol] 139 mg/dL <200 [facility] Comment on above: <200 mg/dL Desirable 200-240 mg/dL Borderline >240 mg/dL High Risk Glucose [Mass/Vol] 187 mg/dL 74-106 [facility] Comment on above: Fasting Glucose resu lt greater than or equal to 126 mg/dL suggests DIABETES MELLITUS per A.D.A. criteria. Potassium [Moles/Vol] 3.9 mmol/L 3.5-5.1 [facility] Protein [Mass/Vol] 7.5 g/dL 6.4-8.2 [facility] Sodium [Moles/Vol] 141 mmol/L 136-145 [facility] Triglyceride [Mass/Vol] 181 mg/dL <199 [facility] Comment on above: The drugs N-Acetylcy steine and Metamizole may falsely depress this assay.Serum Triglycerides Reference Interval Normal <150 mg/dL Borderline high 150 - 199 mg/dL High 200 - 499 mg/dL Very High > or = 500 mg/dL Erythrocyte sedimentation ra teOrdered By: Sophie Huitron on 09-22-2023 ESR (Bld) [Velocity] 17 mm/h 0-30 [facility] Laboratory - Chemistry and C hemistry - challengeOrdered By: Sophie Huitron on 09-22-2023 Albumin/Globulin [Mass ratio] 0.9 {ratio} 0.9-2.4 [facility] ALP [Catalytic activity/Vol] 81 U/L 45-117 [facility] ALT [Catalytic activity/Vol] 44 U/L 13-56 [facility] Cholesterol in HDL [Mass/Vol] 52 mg/dL >40 [facility] Comment on above: The drugs N-Acetylcy steine and Metamizole may falsely depress this assay. Reference Range HDL <40 mg/dL Low HDL Cholesterol HDL >or= 60 mg/dL High HDL Cholesterol Cholesterol in LDL [Mass/Vol] 51 mg/dL 0-130 [facility] CO2 [Moles/Vol] 28.0 mmol/L 21.0-32.0 [facility] Globulin (S) [Mass/Vol] 3.9 g/dL 2.2-4.2 [facility] Urea nitrogen/Creatinine [Mass ratio] 29.3 mg/mg 10-20 [facility] No Panel InformationOrdered By: Sophie Huitron on 09-22-2023 Anti-Nuclear Antibody Screen Negative Negative [facility] Comment on above: Performed at: [employer] [address] [id number] Director: Tate Nye PhD, Phone: [phone] C-Reactive Protein Extended Range < 2.90 mg/L 0.0-3.0 [facility] Comment on above: C-Reactive Protein ( CRP) provides useful information for thediagnosis, therapy and monitoring of inflammatory processesand associated diseases. For the evaluation of Relative Riskfor Cardiovascular Disease, a High Sensitivity CRP (HSCRP)should be ordered. Estimated GFR (MDRD) Amer 99 mL/min >60 [facility] Comment on above: GFR Calc Estimated GFR (MDRD) Non-Af Amer 81 mL/min >60 [facility] Comment on above: Non- GFR Calc Urine Microalbumin/Creatinin e Ratio 9.0 mg/g CRE <30 [facility] VLDL Cholesterol 36 mg/dL 5-40 [facility] Serum cyclic citrullinated p eptide IgG antibody assay (units/volume)Ordered By: Sophie Huitron on 09-22-2023 Cyclic citrullinated peptide IgG Qn 5 units 0-19 [facility] Comment on above: Negative <20 Weak po sitive 20 - 39 Moderate positive 40 - 59 Strong positive >59Performed at: [facility] [id number] [place], [place] [id number] Director: Tate Nye PhD, Phone: [phone] Serum or plasma calcium reggie urement (mass/volume)Ordered By: Sophie Huitron on 09-22-2023 Calcium [Mass/Vol] 9.5 mg/dL 8.5-10.1 [facility] Serum or plasma creatinine m easurement (mass/volume)Ordered By: Sophie Huitron on 09-22-2023 Creatinine [Mass/Vol] 0.78 mg/dL 0.55-1.02 [facility] Comment on above: The validity of the calculated GFR & GFRAA in patients over 70 years has not been determined. Clinical correlation is essential. Serum or plasma thyroid stim ulating hormone (TSH) measurement (units/volume)Ordered By: Sophiekasey Huitron on 09-22-2023 TSH Qn 1.70 uIU/mL 0.358-3.74 [facility] Serum or plasma urea nitroge n measurement (mass/volume)Ordered By: Sophie Huitron on 09-22-2023 Urea nitrogen [Mass/Vol] 23 mg/dL 7-18 [facility] Thin prep Papanicolaou smear with manual screeningOrdered By: Sophie Huitron on 09-22-2023 Thin prep Papanicolaou smear with manual screening 3.6 g/dL 3.2-5.0 [facility] Thin prep Papanicolaou smear with manual screening 36 U/L 15-37 [facility] Thin prep Papanicolaou smear with manual screening 5 5-15 [facility] Thin prep Papanicolaou smear with manual screening 25.7 mg/L NO RANGE EST. [facility] Urine creatinine measurement (mass/volume)Ordered By: Sophie Huitron on 09-22-2023 Creatinine (U) [Mass/Vol] 286.00 mg/dL NO RANGE EST. [facility] Whole blood hemoglobin A1c/t otal hemoglobin ratio (mass fraction)Ordered By: Sophie Huitron on 09-22-2023 HbA1c (Bld) [Mass fraction] 9.5 % 3.8-5.6 [facility] Comment on above: Normal < 5.7 % Predi abetic 5.7 - 6.4 % Diabetic >or= 6.5 % Please note range changes. Absolute lymphocyte countOrd ered By: Sukumar Stanton on 08-05-2023 Lymphocytes Auto (Unsp spec) [#/Vol] 2.11 10*3/uL 0.83-4.51 [facility] Automated lymphocyte count a s percentage of total leukocytesOrdered By: Sukumar Stanton on 08-05-2023 Lymphocytes/100 WBC Auto (Unsp spec) 31.6 % 19-41 [facility] Basophil percentageOrdered B y: Sukumar Stanton on 08-05-2023 Basophils/100 WBC (Bld) 0.6 % 0-1 [facility] Bilirubin [Mass/Vol] 0.50 mg/dL 0.20-1.00 [facility] Comment on above: For patients on eltr ombopag therapy, use of Dimension [place] TBIL is not recommended. Chloride [Moles/Vol] 104 mmol/L 98-107 [facility] Eosinophils/100 WBC (Bld) 1.5 % 0-5 [facility] Glucose [Mass/Vol] 501 mg/dL 74-106 [facility] Comment on above: Critical Result(s) C alled at: 13:10:48 08/05/2023 by: Carlos Childers. Mario Hughes RN (ER). Results read back by same.Glucose result greater than or equal to 200 mg/dLsuggests DIABETES MELLITUS per A.D.A. criteria. Hemoglobin (Bld) [Mass/Vol] 14.1 g/dL 12.0-15.0 [facility] Monocytes/100 WBC (Bld) 7.6 % 0-10 [facility] Neutrophils (Bld) [#/Vol] 3.9 10*3/uL 2.0-7.7 [facility] Neutrophils/100 WBC (Bld) 58.1 % 47-70 [facility] Potassium [Moles/Vol] 3.9 mmol/L 3.5-5.1 [facility] Protein [Mass/Vol] 6.9 g/dL 6.4-8.2 [facility] Sodium [Moles/Vol] 138 mmol/L 136-145 [facility] WBC (Bld) [#/Vol] 6.7 10*3/uL 4.4-11.0 [facility] Basophil percentage 0 SEEN /hpf 0-5 [facility] Bilirubin Test strip Ql (U)O rdered By: Sukumar Stanton on 08-05-2023 Bilirubin Ql (U) Negative Negative [facility] Determination of erythrocyte mean corpuscular volume (MCV)Ordered By: Sukumar Stanton on 08-05-2023 MCV (RBC) [Entitic vol] 88.9 fL 81-99 [facility] Erythrocyte distribution wid th ratioOrdered By: Sukumar Stanton on 08-05-2023 Erythrocyte distribution width (RBC) [Ratio] 13.9 % 11.6-14.6 [facility] Erythrocyte distribution wid th standard deviationOrdered By: Sukumar Stanton on 08-05-2023 Erythrocyte distribution width (RBC) [Entitic vol] 45.2 fL 35.1-43.9 [facility] Hematocrit Auto (Bld) [Volum e fraction]Ordered By: Sukumar Stanton on 08-05-2023 Hematocrit (Bld) [Volume fraction] 43.3 % 37-47 [facility] Immature granulocytes/100 WB C Auto (Bld)Ordered By: Sukumar Stanton on 08-05-2023 Immature granulocytes/100 WBC (Bld) 0.600 % 0.0-0.9 [facility] Comment on above: IG% - Immature Granu locytes (promyelocytes, myelocytes and metamyelocytes) > 1% indicates that a LEFT SHIFT is Present. Ketones Test strip Ql (U)Ord ered By: Sukumar Stanton on 08-05-2023 Ketones Ql (U) 5 mg/dl Negative [facility] Laboratory - Chemistry and C hemistry - challengeOrdered By: Sukumar Stanton on 08-05-2023 Albumin/Globulin [Mass ratio] 0.9 {ratio} 0.9-2.4 [facility] ALP [Catalytic activity/Vol] 95 U/L 45-117 [facility] ALT [Catalytic activity/Vol] 40 U/L 13-56 [facility] CO2 [Moles/Vol] 28.0 mmol/L 21.0-32.0 [facility] Globulin (S) [Mass/Vol] 3.7 g/dL 2.2-4.2 [facility] Urea nitrogen/Creatinine [Mass ratio] 10.8 mg/mg 10-20 [facility] Laboratory - Hematology and Cell countsOrdered By: Sukumar Stanton on 08-05-2023 MCH (RBC) [Entitic mass] 29.0 pg 27.0-32.0 [facility] MCHC (RBC) [Mass/Vol] 32.6 g/dL 32-36 [facility] Nucleated RBC/100 WBC (Bld) [Ratio] 0 % 0-5 [facility] Platelet mean volume (Bld) [Entitic vol] 11.2 fL 6.2-12.0 [facility] Platelets (Bld) [#/Vol] 183 10*3/uL 150-450 [facility] Mucus LM Ql (Urine sed)Order ed By: Sukumar Stanton on 08-05-2023 Mucus Ql (Urine sed) 0 SEEN /hpf [facility] Nitrite Test strip Ql (U)Ord ered By: Sukumar Stanton on 08-05-2023 Nitrite Ql (U) Negative Negative [facility] No Panel InformationOrdered By: Sukumar Stanton on 08-05-2023 Estimated Creatinine Clearance Calc 74.03 ml/min [facility] Estimated GFR (MDRD) Amer 82 mL/min >60 [facility] Comment on above: GFR Calc Estimated GFR (MDRD) Non-Af Amer 68 mL/min >60 [facility] Comment on above: Non- GFR Calc Troponin I High Sensitivity 7 pg/mL 3.0-54.0 [facility] Comment on above: Please Note: [place] t Units and Gender Specific Reference Ranges. For more information see Policy Stat Procedure [place] High Sensitivity Troponin (TNIH) and attachments. Urine RBC 0 SEEN /hpf 0-5 [facility] Protein Test strip Ql (U)Ord ered By: Sukumar Stanton on 08-05-2023 Protein Ql (U) 15 mg/dl Negative [facility] RBC Auto (Bld) [#/Vol]Ordere d By: Sukumar Stanton on 08-05-2023 RBC (Bld) [#/Vol] 4.87 10*6/uL 4.2-5.4 [facility] Serum or plasma acetone reggie urement (mass/volume)Ordered By: Sukumar Stanton on 08-05-2023 Acetone [Mass/Vol] Negative NEG [facility] Serum or plasma calcium reggie urement (mass/volume)Ordered By: Sukumar Stanton on 08-05-2023 Calcium [Mass/Vol] 8.6 mg/dL 8.5-10.1 [facility] Serum or plasma creatinine m easurement (mass/volume)Ordered By: Sukumar Stanton on 08-05-2023 Creatinine [Mass/Vol] 0.92 mg/dL 0.55-1.02 [facility] Comment on above: The validity of the calculated GFR & GFRAA in patients over 70 years has not been determined. Clinical correlation is essential. Serum or plasma urea nitroge n measurement (mass/volume)Ordered By: Sukumar Stanton on 08-05-2023 Urea nitrogen [Mass/Vol] 10 mg/dL 7-18 [facility] Squamous epithelial cells de tection in urine sediment by light microscopyOrdered By: Sukumar Stanton on 08-05-2023 Epithelial cells.squamous LM Ql (Urine sed) 0 SEEN /hpf 5-10 [facility] Thin prep Papanicolaou smear with manual screeningOrdered By: Sukumar Stanton on 08-05-2023 Thin prep Papanicolaou smear with manual screening 3.2 g/dL 3.2-5.0 [facility] Thin prep Papanicolaou smear with manual screening 35 U/L 15-37 [facility] Thin prep Papanicolaou smear with manual screening 6 5-15 [facility] Thin prep Papanicolaou smear with manual screening 498 mg/dL 74-106 [facility] Comment on above: Dr Mali Florian NAGEMENT OF PATIENT CARE PER NURSING PROTOCOL Urine blood detectionOrdered By: Sukumar Stanton on 08-05-2023 RBC Ql (U) Negative Negative [facility] Urine clarityOrdered By: Bob Stanton on 08-05-2023 Clarity (U) Clear Clear [facility] Urine color determinationOrd ered By: Sukumar Stanton on 08-05-2023 Color (U) Yellow Yellow [facility] Urine glucose detectionOrder ed By: Sukumar Stanton on 08-05-2023 Glucose Ql (U) 1000 mg/dl Normal [facility] Urine leukocyte esterase det ection by dipstickOrdered By: Sukumar Stanton on 08-05-2023 Leukocyte esterase Test strip Ql (U) Negative Negative [facility] Urine pHOrdered By: Sukumar rivera on 08-05-2023 pH (U) 6.0 [pH] 5.0 - 8.0 [facility] Urine sediment bacteria coun t by microscopy (number/high power field)Ordered By: Sukumar Stanton on 08-05-2023 Bacteria LM.HPF (Urine sed) [#/Area] 0 /[HPF] None Seen [facility] Urine specific gravity measu rementOrdered By: Sukumar Stanton on 08-05-2023 Specific gravity (U) [Rel density] 1.015 1.002-1.030 [facility] Urine urobilinogen measureme ntOrdered By: Sukumar Stanton on 08-05-2023 Urobilinogen Ql (U) Normal mg/dl Normal [facility] MR Brain WO and W contrast I Von 07-31-2023 [facility] XR CHEST 2V FRONTAL/LATon [facility] XR Chest PA and Lateralon IMPRESSION: Stable chest. No acute cardiopulmonary process. Duck Farmer: KATERYNA Transcribe Date/Time: Oct 01 2021 1:23P Dictated by : LEXY DESAI MD This examination was interpreted and the report reviewed and electronically signed by: LEXY DESAI MD on Oct 01 2021 1:28PM EST ZZZ_DO_NOT_ USE_DIVISIO N OF RADIOLOGY * * *Final Report* * * DATE OF EXAM: Oct 01 2021 1:21PM WOX 5291 - XR CHEST 2V FRONTAL/LAT / PROCEDURE REASON: Cough * * * * Physician Interpretation * * * * EXAMINATION: CHEST RADIOGRAPH (2 VIEW FRONTAL & LATERAL) CLINICAL HISTORY: Cough MQ: XC2_6 EXAM DATE/TIME: 10/01/2021 1:21 PM COMPARISON: Comparison is made to prior chest radiograph dated 01 September 2020 RESULT: Lines, tubes, and devices: None. Lungs and pleura: Chronic eventration anterior right hemidiaphragm with right middle lobe pleural-parenchymal stranding appears unchanged dating back to August 2020 and is consistent with stable right middle lobe scarring. The lungs are otherwise clear. There is no acute focal consolidation or acute pleural process. There is no vascular redistribution to suggest pulmonary edema. Cardiomediastinal silhouette: Normal cardiomediastinal silhouette. Bones and soft tissues: The bony structures remain intact. ZZZ_DO_NOT_ USE_DIVISIO N OF RADIOLOGY Provider, Gonzales Bermudez - 10/01/2021 * * *Final Report* * * DATE OF EXAM: Oct 01 2021 1:21PM WOX 5291 - XR CHEST 2V FRONTAL/LAT / PROCEDURE REASON: Cough * * * * Physician Interpretation * * * * EXAMINATION: CHEST RADIOGRAPH (2 VIEW FRONTAL & LATERAL) CLINICAL HISTORY: Cough MQ: XC2_6 EXAM DATE/TIME: 10/01/2021 1:21 PM COMPARISON: Comparison is made to prior chest radiograph dated 01 September 2020 RESULT: Lines, tubes, and devices: None. Lungs and pleura: Chronic eventration anterior right hemidiaphragm with right middle lobe pleural-parenchymal stranding appears unchanged dating back to August 2020 and is consistent with stable right middle lobe scarring. The lungs are otherwise clear. There is no acute focal consolidation or acute pleural process. There is no vascular redistribution to suggest pulmonary edema. Cardiomediastinal silhouette: Normal cardiomediastinal silhouette. Bones and soft tissues: The bony structures remain intact. IMPRESSION IMPRESSION: Stable chest. No acute cardiopulmonary process. Duck Farmer: PSCB Transcribe Date/Time: Oct 01 2021 1:23P Dictated by : LEXY DESAI MD This examination was interpreted and the report reviewed and electronically signed by: LEXY DESAI MD on Oct 01 2021 1:28PM EST [facility] Radiology Study observation (narrative) [facility] XR Chest PA and LateralOrder ed By: Ccf Provider on 10-01-2021 [facility] Absolute lymphocyte counton 08-31-2021 Lymphocytes Auto (Unsp spec) [#/Vol] 3.56 10*3/uL 0.83-4.51 [facility] Work Phone: Basophil percentageon 2021 Basophil percentage 0 SEEN /hpf 0-5 [facility] Work Phone: Basophils/100 WBC (Bld) 0.5 % 0-1 [facility] Work Phone: Chloride [Moles/Vol] 105 mmol/L 98-107 [facility] Work Phone: Eosinophils/100 WBC (Bld) 1.5 % 0-5 [facility] Work Phone: Glucose [Mass/Vol] 341 mg/dL 74-106 [facility] Work Phone: Comment on above: Glucose result great er than or equal to 200 mg/dLsuggests DIABETES MELLITUS per A.D.A. criteria. Neutrophils (Bld) [#/Vol] 5.2 10*3/uL 2.0-7.7 [facility] Work Phone: Neutrophils/100 WBC (Bld) 53.5 % 47-70 [facility] Work Phone: Potassium [Moles/Vol] 4.0 mmol/L 3.5-5.1 [facility] Work Phone: Sodium [Moles/Vol] 139 mmol/L 136-145 [facility] Work Phone: [phone] WBC (Bld) [#/Vol] 9.7 10*3/uL 4.4-11.0 [facility] Work Phone: Bilirubin Test strip Ql (U)o n 08-31-2021 Bilirubin Ql (U) Negative Negative [facility] Work Phone: Blood erythrocytes count (nu mber/volume)on 08-31-2021 RBC (Bld) [#/Vol] 4.96 10*6/uL 4.2-5.4 [facility] Work Phone: Blood hemoglobin measurement (mass/volume)on 08-31-2021 Hemoglobin (Bld) [Mass/Vol] 14.8 g/dL 12.0-15.0 [facility] Work Phone: Blood lymphocytes/100 leukoc yteson 08-31-2021 Lymphocytes/100 WBC (Bld) 36.7 % 19-41 [facility] Work Phone: Blood monocytes/100 leukocyt eson 08-31-2021 Monocytes/100 WBC (Bld) 7.3 % 0-10 [facility] Work Phone: Blood platelet mean volumeon 08-31-2021 Platelet mean volume (Bld) [Entitic vol] 10.0 fL 6.2-12.0 [facility] Work Phone: Determination of erythrocyte mean corpuscular volume (MCV)on 08-31-2021 MCV (RBC) [Entitic vol] 87.5 fL 81-99 [facility] Work Phone: Glucose Glucometer (BldC) [M ass/Vol]on 08-31-2021 Glucose [Mass/Vol] 293 mg/dL 74-106 [facility] Work Phone: Comment on above: MANAGEMENT OF PATIEN T CARE PER NURSING PROTOCOL Hematocrit Auto (Bld) [Volum e fraction]on 08-31-2021 Hematocrit (Bld) [Volume fraction] 43.4 % 37-47 [facility] Work Phone: Ketones Test strip Ql (U)on 08-31-2021 Ketones Ql (U) Negative Negative [facility] Work Phone: Laboratory - Chemistry and C hemistry - challengeon 08-31-2021 CO2 [Moles/Vol] 28.0 mmol/L 21.0-32.0 [facility] Work Phone: Urea nitrogen/Creatinine [Mass ratio] 13.4 mg/mg 10-20 [facility] Work Phone: Laboratory - Hematology and Cell countson 08-31-2021 Erythrocyte distribution width (RBC) [Entitic vol] 42.6 fL 35.1-43.9 [facility] Work Phone: Erythrocyte distribution width (RBC) [Ratio] 13.2 % 11.6-14.6 [facility] Work Phone: Immature granulocytes/100 WBC (Bld) 0.500 % 0.0-0.9 [facility] Work Phone: Comment on above: IG% - Immature Granu locytes (promyelocytes, myelocytes and metamyelocytes) > 1% indicates that a LEFT SHIFT is Present. MCH (RBC) [Entitic mass] 29.8 pg 27.0-32.0 [facility] Work Phone: Nucleated RBC/100 WBC (Bld) [Ratio] 0 % 0-5 [facility] Work Phone: MCHC Auto (RBC) [Mass/Vol]on 08-31-2021 MCHC (RBC) [Mass/Vol] 34.1 g/dL 32-36 [facility] Work Phone: Mucus LM Ql (Urine sed)on Mucus Ql (Urine sed) 0 SEEN /hpf [facility] Work Phone: Nitrite Test strip Ql (U)on 08-31-2021 Nitrite Ql (U) Negative Negative [facility] Work Phone: No Panel Informationon 08-31 Estimated Creatinine Clearance Calc 58.30 ml/min [facility] Work Phone: Estimated GFR (MDRD) Amer 95 mL/min >60 [facility] Work Phone: Comment on above: GFR Calc Estimated GFR (MDRD) Non-Af Amer 78 mL/min >60 [facility] Work Phone: Comment on above: Non- GFR Calc Platelets bldon 08-31-2021 Platelets (Bld) [#/Vol] 193 10*3/uL 150-450 [facility] Work Phone: Protein Test strip Ql (U)on 08-31-2021 Protein Ql (U) Negative Negative [facility] Work Phone: Serum or plasma calcium reggie urement (mass/volume)on 08-31-2021 Calcium [Mass/Vol] 9.1 mg/dL 8.5-10.1 [facility] Work Phone: Serum or plasma creatinine m easurement (mass/volume)on 08-31-2021 Creatinine [Mass/Vol] 0.82 mg/dL 0.55-1.02 [facility] Work Phone: Comment on above: The validity of the calculated GFR & GFRAA in patients over 70 years has not been determined. Clinical correlation is essential. Serum or plasma urea nitroge n measurement (mass/volume)on 08-31-2021 Urea nitrogen [Mass/Vol] 11 mg/dL 7-18 [facility] Work Phone: Squamous epithelial cells de tection in urine sediment by light microscopyon 08-31-2021 Epithelial cells.squamous LM Ql (Urine sed) 0 SEEN /hpf 5-10 [facility] Work Phone: Thin prep Papanicolaou smear with manual screeningon 08-31-2021 Thin prep Papanicolaou smear with manual screening 6 -15 [facility] Work Phone: [phone] Urine blood detectionon 08-17 RBC Ql (U) Negative Negative [facility] Work Phone: RBC Ql (U) 0 SEEN /hpf 0-5 [facility] Work Phone: Urine clarityon 08-31-2021 Clarity (U) Clear Clear [facility] Work Phone: Urine color determinationon 08-31-2021 Color (U) Yellow Yellow [facility] Work Phone: Urine glucose detectionon Glucose Ql (U) 1000 mg/dl Normal [facility] Work Phone: Urine leukocyte esterase det ection by dipstickon 08-31-2021 Leukocyte esterase Test strip Ql (U) Negative Negative [facility] Work Phone: Urine pHon 08-31-2021 pH (U) 7.0 [pH] 5.0 - 8.0 [facility] Work Phone: Urine sediment bacteria coun t by microscopy (number/high power field)on 08-31-2021 Bacteria LM.HPF (Urine sed) [#/Area] 0 /[HPF] None Seen [facility] Work Phone: Urine specific gravity measu rementon 08-31-2021 Specific gravity (U) [Rel density] 1.010 1.002-1.030 [facility] Work Phone: Urobilinogen Auto test strip Ql (U)on 08-31-2021 Urobilinogen Ql (U) Normal mg/dl Normal [facility] Work Phone: CNOVSPon 03-23-2021 CNOVSP Visit (SP) Office ([place]) -- JODIE CHILEL ([id number]) 1970 F Date Time Provider Department 03/23/21 11:00 AM HEMANT SOSA During your visit today, we recorded the following information about you: Temperature Pulse Blood pressure Weight 98.5 degrees 98/minute 128/82 90.7 kg Height 1.524 m Jessie Knox LPN 03/23/2021 11:04 AM Signed Influenza Vaccine Documentation: ? Patient is identified by name and date of : Yes ? Patient is older than 6 months of age: Yes ? Patient denies a severe allergy to any vaccine component or to a previous dose of influenza vaccine: Yes FOR EGG ALLERGY CONCERNS, REFER TO PROVIDER. ? Patient is ? No (ACIP recommends that women who will be during the influenza season should be vaccinated. Vaccinations can occur in any trimester) ? Denies allergy to gelatin, formaldehyde, thimerosol :Yes ? Patient is afebrile and not moderately or severely ill: Yes ? Does the patient have a history of Guillain ?[place] Syndrome (a severe paralytic illness): No ? Denies bone marrow transplant prior 6 months or solid organ transplant prior 3 months: Yes ? Denies a history of fainting after a prior injection or medical procedure? Yes If patient has fainted in the past, the CDC recommends sitting or lying down for 15 minutes after the vaccination. ? VIS sheet provided: Yes ? See Immunization Form in [facility] for details of immunizations administered today. If patient reports dizziness, vision changes or ringing in the ears post vaccination ? please have patient sit or lie down for 15 minutes. Patient tolerated the vaccine well. SHABNAM Rodriguez MD 04/14/2021 8:58 AM Signed Gynecologic Oncology [facility] General Follow up visit Date of service: 03/23/2021 PROBLEM/CC: Jodie Chilel presents for follow-up. HPI: Ms. Chilel is a 50 year old female with [...] Diabetes mellitus type II - Diabetic neuropathy (HCC) 12/11/2017 feet only - Endometrial cancer ([facility]) - Fibromyalgia - Hypothyroidism - Insomnia, unspecified - Lazy eye since - Menopause - Morbid obesity with BMI of 45.0-49.9, adult ([facility]) 03/29/2017 - Schizoaffective disorder, bipolar type ([facility]) 04/14/2015 states no longer - Sleep apnea CPAP occasional usage - Tobacco use disorder 01/21/2021 PAST SURGICAL HISTORY Procedure Laterality Date - BACK SURGERY HX 02/03/2019 bilateral laminotomies, decompression L5 and S1 nerve roots, removal of epidural lipomatosis - D+C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 Diagnoses:Hypercholesterem ia busPIRone (BUSPAR) 10 mg Take 10 mg by mouth twice daily. fluticasone (FLONASE) 2 Sprays Use 2 Sprays in each nostril daily at bedtime. Qty: 1 Bottle Refills: 11 Comments: Hold refills on file until needed Associated Diagnoses:Sinusitis, maxillary, chronic albuterol HFA (PROVENTIL HFA, VENTOLIN HFA) 2 Puffs Inhale 2 Puffs as instructed every 4 hours as needed for wheezing/shortness of breath. Qty: 1 Inhaler Refills: 11 Comments: Hold refills on file until needed flash glucose sensor (FREESTYLE JALIL 14 DAY SENSOR) kit Apply one sensor to the back of the upper arm. Remove sensor after [address] new sensor on alternate arm. Qty: 2 Kit Refills: 5 insulin needles, DISPOSABLE, (PEN NEEDLE) 31 gauge x 5/16 USE ONE NEEDLE DAILY FOR DOSE OF GLARGINE Dx E11.65 Qty: 100 Each Refills: 3 blood sugar diagnostic (FREESTYLE LITE STRIPS) test strip Test blood sugar(s) 1-2 times daily. Dx: e11.65, Z79.4. Insulin: yes Qty: 50 Strip Refills: 11 Comments: Corrected RX with E11.65 code added. Though patient has Freestyle Jalil, needs meter and test strips for back up testing Associated Diagnoses:DM type 2, uncontrolled, with neuropathy (HCC) COMPOUNDED PRESCRIPTION Diabetic Shoes--fitted with inserts for flat feet, 1 pair Diagnosis: (M21.41, M21.42) Pes planus of both feet ; (E11.40) Controlled type 2 diabetes mellitus with diabetic neuropathy, without long-term current use of insulin (HCC) Qty: 1 Each Refills: 0 Associated Diagnoses:Controlled type 2 diabetes mellitus with diabetic neuropathy, without long-term current use of insulin (HCC) flash glucose scanning reader 1 Device 1 Device once daily. Qty: 1 Each Refills: 0 STOP taking these medications OXcarbazepine (TRILEPTAL) 300 mg tablet Comments: Reason for Stopping: nicotine (NICODERM) 1 Patch Comments: Reason for Stopping: cyclobenzaprine (FLEXERIL) 10 mg Comments: Reason for Stopping: FINAL DIAGNOSIS: Endometrial cancer s/p hysterectomy, bilatersl oophorectomy and salpingectomy Plan of care discussed with Provider, RN, Patient SIGNATURE: Lillie Hunt DO PATIENT NAME: Jodie Chilel DATE: March 09, 2021 TIME: 11:45 AM PAGER: [phone] NUTRITIONon 03-09-2021 NUTRITION HNO ID: [id number] Author: Dar Noriega RD Service: Nutrition Therapy Author Type: Registered Dietitian Type: Nutrition Filed: 03/09/2021 3:29 PM Note Text: NUTRITION THERAPY INITIAL ASSESSMENT SERVICE DATE: 03/09/2021 SERVICE TIME: 3:24 PM Nutrition Assessment: Recommended Malnutrition Diagnosis: Mild Protein-Calorie Malnutrition In the context of: Chronic Illness or Injury Based on: Insufficient Energy Intake Nutrition Diagnosis: Problem: Increased nutrient needs Related to: Acute illness As evidenced by: Procedure/surgery Estimated kilocalorie needs: 4964-3085 Calorie Calculation Method: 30-35 kcals/kg Estimated protein needs (grams): 55-69 Grams protein determined by: 1.2 - 1.5 g/kg Care Plan: Continue current diet Supplements: Boost Glucose Control 1) patient endorses long standing reduced appetite. Increased nutrition needs to support post op healing. Patient also states she doesn't like the food here. Will order Boost 2 x daily Monitor and Evaluation: Meet greater than 75% of estimated needs;Monitor bowel function;Monitor fluid/electrolyte balance;Monitor labs, I/Os, vital signs, weight HPI: 50 yo female presents for planned surgery. S/P TLH, BSO, cytoscopy Active Hospital Problems Diagnosis Date Noted - Sleep apnea Chronic Overview Note: CPAP occasional usage Intake History: Nutrition Intake Prior to Admission: Less than 75% estimated energy needs greater than or equal to 3 months Current Intake: Less than 50% estimated energy needs Over: pt endorses appetite is good, she doesn't like the food here. requests nutrition supplements Diet Orders (From admission, onward) Start Ordered 03/08/212214 DIET GASTRO INTESTINAL START NOW Question Answer Comment Gastro Intestinal FIBER CONTROLLED Carbohydrate Control 3-5 CARBS/MEAL 03/08/212214 Anthropometrics: Height: 152.4 cm (5') Weight: 96.5 kg (212 lb 11.9 oz) Dosing Weight: 46 kg (101 lb 6.6 oz) Body mass index is 41.55 kg/m?. Morbidly Obese Weight change percentage over time: wt has decreased by 11% over the past 1 year-not clinically significant in this time-frame Physical Exam: Subcutaneous fat loss: No fat loss Muscle loss: No muscle loss Potential micronutrient deficiency: Teeth Edema/Ascites: No edema GI Symptoms: None Functional Status: Not related to malnutrition status Potential Signs of Inflammation: Chronic condition;Imaging studies;Acute post-operative MNT Billing Type: Initial Assess/15 min 1 unit SIGNATURE: Dar Noriega RD PATIENT NAME: Jodie Chilel DATE: March 09, 2021 TIME: 3:24 PM PAGER: [phone] [facility] ANES PRE-OPon 03-08-2021 ANES PRE-OP HNO ID: [id number] Author: Gurinder Escalante DO Service: Anesthesiology Author Type: Physician Type: Anesthesia Preprocedure Evaluation Filed: 03/08/2021 3:14 PM Note Text: ANESTHESIOLOGY DAY OF SURGERY NOTE : 1970 Procedure(s) (LRB): LAPAROSCOPIC HYSTERECTOMY TOTAL FOR UTERUS 250 G OR LESS W/REMOVAL TUBE(S) AND/OR OVARY(S) (N/A) LAPAROSCOPY SURGICAL W/RETROPERITONEAL LYMPH NODE SAMPLING SINGLE OR MULTIPLE (N/A) LAPAROTOMY PELVIC (N/A) Surgeon(s): Hemant Sosa MD Estimated body mass index is 41.79 kg/m? as calculated from the following: Height as of 03/05/21: 152.4 cm (5'). Weight as of 03/05/21: 97.1 kg (214 lb). Most recent hematocrit and potassium results: Hematocrit 48.2 02/16/2021 Potassium 4.2 02/16/2021 Relevant Problems ANESTHESIA (+) Sleep apnea ENDO (+) Controlled type 2 diabetes mellitus with diabetic neuropathy, without long-term current use of insulin (HCC) (+) Hypothyroidism PULMONARY (+) Asthma (+) Sleep apnea Other (+) Diabetic neuropathy (HCC) (+) Endometrial adenocarcinoma (HCC) (+) Morbid obesity with BMI of 45.0-49.9, adult ([facility]) I - PHYSICAL EVALUATION AIRWAY Patient intubated: No. Mallampati: II. TM distance: <3 FB. Neck ROM: full ROM without neurological symptoms. Mouth opening: adequate. DENTAL Dental findings: poor dentition. Additional exam findings: yes. CARDIOVASCULAR Normal cardiovascular observations. PULMONARY Normal pulmonary observations. II - ANESTHESIA PLAN ASA Score: 3 Anesthetic Plan: general Airway type: ETT Anesthetic plan additional comments: BG 220s this afternoon. NPO Status: adequate Monitoring plan: standard ASA. Postoperative analgesic plan: parenteral or oral opioids and multimodal analgesia. Anesthetic Risks, Benefits, Alternatives, Personnel Discussed. Consent obtained from: patient.Patient / Surrogate agrees to blood products: Yes Significant changes in the patient condition since the History and Physical, not otherwise documented in primary service progress note: no. Vitals Value Taken Time BP 114/66 03/08/21 1245 Pulse 92 03/08/21 1245 Resp 18 03/08/21 1245 Temp 36 ?C (96.8 ?F) 03/08/21 1245 SpO2 94 % 03/08/21 1245 Facility-Administered Medications as of 03/08/2021 Medication Dose Route Frequency - lactated ringers iv infusion 5-30 mL/hr INTRAVENOUS CONTINUOUS - [COMPLETED] lidocaine 10 mg/mL (1 %) 1-2 mg injection (XYLOCAINE) 0.1-0.2 mL INTRADERMAL PRN - [COMPLETED] heparin 5,000 Units injection 5,000 Units SUBCUTANEOUS Pre-Op Once - [COMPLETED] acetaminophen 975 mg tab(s) (TYLENOL) 975 mg ORAL Pre-Op Once - [COMPLETED] celecoxib 400 mg cap(s) (CeleBREX) 400 mg ORAL Pre-Op Once - [COMPLETED] gabapentin 600 mg cap(s) (NEURONTIN) 600 mg ORAL Pre-Op Once - ceFAZolin iv piggyback 2 g in D5W (iso-osmotic) 100 mL (ANCEF) 2 g INTRAVENOUS Pre-Op Once Outpatient Medications as of 03/08/2021 Medication Sig - Alpha Lipoic Acid 600 mg cap Take 600 mg by mouth once daily. - OXcarbazepine (TRILEPTAL) 300 mg tablet Take 1 tablet by mouth every morning AND 2 tablets daily at bedtime. - traZODone HCl 300 mg tablet Take 1 tablet by mouth daily at bedtime. - lamoTRIgine (LAMICTAL) 150 mg tablet Take 1 tablet by mouth twice daily. - OLANZapine (ZYPREXA) 15 mg tablet Take 1 tablet by mouth daily at bedtime. - cyanocobalamin (VITAMIN B-12) 1,000 mcg tab Take 1 tablet by mouth once daily. - metFORMIN ER (GLUCOPHAGE XR) 500 mg 24 hr tablet Take 2 tablets by mouth twice daily before meals. - insulin glargine (LANTUS SOLOSTAR U-100 INSULIN) [...] 10 mg by mouth twice daily. - fluticasone (FLONASE) 50 mcg/actuation nasal spray Use 2 Sprays in each nostril daily at bedtime. - albuterol HFA (PROVENTIL HFA, VENTOLIN HFA) 90 mcg/actuation inhaler Inhale 2 Puffs as instructed every 4 hours as needed for Wheezing/Shortness of Breath. - flash glucose sensor (FREESTYLE JALIL 14 DAY SENSOR) kit Apply one sensor to the back of the upper arm. Remove sensor after [address] new sensor on alternate arm. - cyclobenzaprine (FLEXERIL) 10 mg tablet Take 1 tablet by mouth three times daily as needed for muscle spasm. taking currently without difficulty A/E (Patient not taking: Reported on 02/16/2021 ) - insulin needles, DISPOSABLE, (PEN NEEDLE) 31 gauge x 5/16 USE ONE NEEDLE DAILY FOR DOSE OF GLARGINE Dx E11.65 - blood sugar diagnostic (FREESTYLE LITE STRIPS) test strip Test blood sugar(s) 1-2 times daily. Dx: e11.65, Z79.4. Insulin: yes - COMPOUNDED PRESCRIPTION Diabetic Shoes--fitted with inserts for flat feet, 1 pair Diagnosis: (M21.41, M21.42) Pes planu (more content not included)... Normal [facility] BRIEF OP NOTon 03-08-2021 BRIEF OP NOT HNO ID: [id number] Author: Refugio Rahman DO Service: Gynecology Oncology Author Type: Resident Type: Brief Op Note Filed: 03/08/2021 7:52 PM Note Text: BRIEF OPERATIVE / PROCEDURE NOTE LOG ID: [id number] SURGERY/PROCEDURE DATE: 03/08/2021 INCISION/PROCEDURE START TIME: 4:43 PM INCISION CLOSE/PROCEDURE END TIME: 7:50 PM SURGEON(S)/PROCEDURALIST(S ) AND INDIRECT SALES EXEC(S): Surgeon(s) and Role: * Hemant Sosa MD - Primary * Refugio Rahman DO - Resident - Assisting * Lillie Hunt DO - Resident - Assisting SURGERY/PROCEDURE(S): Total laparoscopic hysterectomy with bilateral salpingo-oophorectomy, cystoscopy ANESTHESIA: General FINDINGS: Normal appearing uterus, bilateral fallopian tubes and ovaries. No evidence of extrauterine disease. Frozen pathology with <50% myometrial invasion. Mild omental adhesions to anterior abdominal wall. Cystoscopy with brisk bilateral ureteral jets UOP: 100 mls clear yellow urine IVF: 2000 mls crystalloid ESTIMATED BLOOD LOSS: 50 mls SPECIMENS: Uterus, cervix, bilateral fallopian tubes and ovaries COMPLICATIONS: None Ross to PACU PRE-OP/PRE-PROCEDURE DIAGNOSIS: FIGO grade 1 endometrial carcinoma POST-OP/POST-PROCEDURE DIAGNOSIS: Same as Preop SIGNATURE: Refugio Rahman DO PATIENT NAME: Jodie Chilel DATE: March 08, 2021 TIME: 7:49 PM Normal [facility] SURGICAL PATHOLOGYon 021 CASE REPORT Normal [facility] Comment on above: Order Comment: Speci men Type: TISSUE SPECIMEN Result Comment: Surg ical Pathology Report Case: [id number] Authorizing Provider: Hemant Sosa MD Collected: 03/08/2021 06:31 PM Ordering Location: [place] [facility] Received: 03/09/2021 02:45 AM Pathologist: Anant Nash MD Specimen: UTERUS, CERVIX, BILATERAL FALLOPIAN TUBES AND BILATERAL OVARIES Performed By: #### S #### [facility] CLIA [id number] [address] [place] [address] DIAGNOSIS COMMENT Normal [facility] Comment on above: Order Comment: Speci men Type: TISSUE SPECIMEN Result Comment: Per previous outside biopsy report ([id number], [facility], 01/28/2021) p53 shows patchy positive staining (wild-type), MMR immunohistochemistry shows positive staining for MLH1, PMS2, MSH6 and MSH2 (MMR proficient). Dr. Olimpia Ashton has reviewed this case and agrees with the above diagnosis. Performed By: #### S #### [facility] CLIA [id number] [address] [place] [address] FINAL DIAGNOSIS [facility] Comment on above: Order Comment: Speci men Type: TISSUE SPECIMEN Result Comment: A. U terus, cervix, bilateral fallopian tubes and bilateral ovaries, hysterectomy and bilateral salpingo-oophorectomy Cervix Chronic endocervicitis, negative for neoplasm. Lower uterine segment Superficial (non-invasive) involvement by endometrial adenocarcinoma, endometrioid type. Endometrium Endometrial adenocarcinoma, endometrioid type with focal mucinous and squamous differentiation, FIGO grade 1. See comment. Myometrium Superficial invasion by endometrial endometrioid adenocarcinoma (8% myoinvasion). Focal adenomyosis involved by endometrial endometrioid adenocarcinoma. Serosa Unremarkable serosal surface. Right and left ovaries Benign cysts. Right and left fallopian tubes Unremarkable fallopian tubes. Performed By: #### S #### [facility] CLIA [id number] [address] FINAL PERFORMING LAB Normal [facility] Comment on above: Order Comment: Speci men Type: TISSUE SPECIMEN Result Comment: Diag nostic interpretation performed at [facility], [address] [place] [address] CLIA# [id number] Felt Hat Mellowing 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: Dilip Gonzalez M.D. Performed By: #### S #### [facility] CLIA [id number] [address] GROSS DESCRIPTION Normal [facility] Comment on above: Order Comment: Speci men Type: TISSUE SPECIMEN Result Comment: A. U TERUS, CERVIX, BILATERAL FALLOPIAN TUBES AND BILATERAL OVARIES. A. Received fresh for frozen section diagnosis labeled uterus cervix bilateral fallopian tubes and bilateral ovaries is a uterus with attached cervix and attached bilateral fallopian tubes and ovaries. The uterus and attached cervix weighs 40 g and measures 6.5 x 4.5 x 3 cm. The serosal surface is pink???giordano and dull. The ectocervix is white???pink, smooth and unremarkable. The cervical os is [place] in contour. The anterior aspect is inked blue and the posterior aspect is inked black. Upon opening, the endocervical canal measures 2.5 cm and is giordano???pink and unremarkable. The endometrial cavity measures 2.5 cm in length and 2 cm in width. A brown???giordano granular lesion is located on the posterior wall measuring approximately 1.6 x 0.6 x 0.2 cm (0.5 cm from the lower uterine segment and 3 cm from the external cervical os). Upon sectioning, the lesion appears superficial and extends approximately 0.2 cm into the myometrium (1.5 cm from the posterior overlying serosal surface). The remainder of the endometrium is giordano???pink and unremarkable measuring approximately 0.1 cm in thickness. The myometrium is giordano???pink and measures 1.5 cm in thickness. No intramural nodules are identified. The left fallopian tube with attached fimbriated end measures 5 cm in length and 0.5 cm in diameter. The fimbriated end is normal and villous. The outer surface of the tube is purple???giordano and dull with no paratubal cysts identified. Sectioning reveals a pinpoint unremarkable lumen. The left ovary weighs 4 g and measures 3 x 1.6 x 1.3 cm. The outer surface is giordano and smooth. Sectioning reveals a 0.5 cm smooth lined cystic structure filled with a clear gelatinous material. The right fallopian tube with attached fimbriated end measures 5.8 cm in length and 0.5 cm in diameter. The fimbriated end is normal and villous the outer surface of the tube is purple???giordano and dull with no paratubal cysts identified. Sectioning reveals a pinpoint unremarkable lumen. The right ovary weighs 4 g and measures 3 x 1.5 x 1.3 cm. The outer surface is and smooth. Sectioning reveals a 1 cm smooth lined, clear fluid-filled cyst. Nutrition Internship sections are submitted as follows: FSA 1-lesion on posterior wall, full-thickness, A2-anterior cervix, A3-posterior cervix, A4-posterior lower uterine segment, A5???A6-anterior uterine wall, full-thickness, A7-remainder of the lesion on posterior aspect, full-thickness, A8???A 10-remainder of posterior endometrium, A 11-left fallopian tube fimbriated end bisected and mid cross-section, A 12-left ovary demonstrating cystic structure, A 13-right fallopian tube fimbriated end bisected and mid cross-section, A 14-right ovary demonstrating cystic structure. Gross examination performed at [facility], [address] [place] [address] OLS March 09, 2021 9:14 AM Performed By: #### S #### [facility] CLIA [id number] [address] [place] [address] [place] INTRAOPERATIVE DIAGNOSIS Normal [facility] Comment on above: Order Comment: Speci men Type: TISSUE SPECIMEN Result Comment: A. U TERUS, CERVIX, BILATERAL FALLOPIAN TUBES AND BILATERAL OVARIES. FSA1??? Endometrial lesion, full-thickness: consistent with endometrial carcinoma; depth of invasion no worse than 2 mm on exam section. Defer to permanents for further assessment. (AC) Performed By: #### S #### [facility] CLIA [id number] [address] SYNOPTIC REPORT Normal [facility] Comment on above: Order Comment: Speci men Type: TISSUE SPECIMEN Result Comment: ENDO METRIUM (ENDOMETRIUM: HYSTERECTOMY - All Specimens) 8th Edition - Protocol posted: 08/14/2019 SPECIMEN Procedure: Total hysterectomy and bilateral salpingo-oophorectomy Hysterectomy Type: Laparoscopic TUMOR Tumor Site: Endometrium Tumor Site: Lower uterine segment Histologic Type: Endometrioid carcinoma, NOS Histologic Grade: FIGO grade 1 Tumor Size: Cannot be determined: Multifocal in a background of atypical hyperplasia. Myometrial Invasion: Present Depth of Myometrial Invasion (Millimeters): 1.5 mm Myometrial Thickness (Millimeters): 18 mm Percentage of Myometrial Invasion: 8 % Adenomyosis: Present, involved by carcinoma Uterine Serosa Involvement: Not identified Lower Uterine Segment Involvement: Present, superficial (non-myoinvasive) Cervical Stromal Involvement: Not identified Other Tissue / Organ Involvement: Not identified Peritoneal Ascitic Fluid: Not submitted / unknown Lymphovascular Invasion: Not identified MARGINS LYMPH NODES Regional Lymph Nodes: No lymph nodes submitted or found PATHOLOGIC STAGE CLASSIFICATION (pTNM, AJCC 8th Edition) Primary Tumor (pT): pT1a Regional Lymph Nodes (pN): pNX FIGO STAGE FIGO Stage: IA ADDITIONAL FINDINGS Additional Findings: Atypical hyperplasia / endometrial intraepithelial neoplasia (EIN) Performed By: #### S #### [facility] CLIA [id number] [address] [place] HISTORY PHYSICALon HISTORY PHYSICAL HNO ID: [id number] Author: Lora Jimenez APRN.CIVIL ENGINEERING ASSISTANT Service: ? Author Type: Nurse Practitioner Type: HANDP Filed: 03/05/2021 1:18 PM Note Text: HISTORY AND PHYSICAL EXAMINATION SERVICE DATE: 03/04/2021 SERVICE TIME: 1:14 PM PRIMARY CARE PHYSICIAN: Dino Evans MD REASON FOR VISIT: Jodie Chilel is a 50 year old female who is scheduled for Procedure(s): LAPAROSCOPIC HYSTERECTOMY TOTAL FOR UTERUS 250 G OR LESS W/REMOVAL TUBE(S) AND/OR OVARY(S) (N/A) LAPAROSCOPY SURGICAL W/RETROPERITONEAL LYMPH NODE SAMPLING SINGLE OR MULTIPLE (N/A) LAPAROTOMY PELVIC (N/A) at the request of Dr. Hemant Sosa MD for routine HANDP. My final recommendation will be communicated back to the requesting physician by way of shared medical record or letter. Subjective The patient has the following: ACTIVE PROBLEM LIST Hypothyroidism Controlled Type 2 Diabetes Mellitus With Diabetic Neuropathy, Without Long-Term Current Use of Insulin (Hcc) Schizoaffective Disorder, Bipolar Type (Hcc) Chronic Bilateral Low Back Pain Without Sciatica Neck Pain, Chronic Morbid Obesity With Bmi of 45.0-49.9, Adult (Hcc) Diabetic Neuropathy (Hcc) Pes Cavus Diminished Pulses in Lower Extremity Tobacco Use Disorder Asthma Endometrial Adenocarcinoma (Hcc) CHIEF COMPLAINT: Endometrial cancer HPI: Patient states she has chronic pelvic pain for at least 15 years described as constant stabbing. She admits to dyspareunia but no bleeding afterwards. She has never been and states she has not had periods in years. In January she had a DANDC for endometrial polyps and the results came back cancer. She denies any bleeding. She was referred to an oncology surgeon and after discussion with the surgeon agrees to surgical intervention. REVIEW OF SYSTEMS: General: No weight loss, malaise or fevers. Neurological: Fibromyalgia Positive for: headaches. Negative for: seizures and strokes. Respiratory: Positive for: asthma, tobacco use, obstructive sleep apnea and CPAP/BiPAP noncompliant. Cardiovascular: No history of HTN requiring medication, no history of angina, CHF, MO, cardiac surgery or stents. Denies rest pain, gangrene or revascularization/amputati on for PVD. No history of cardiovascular symptoms or problems. Negative for: chest pain. GI: No history of GI symptoms or problems. No history of esophageal varices, recent ascites, or ETOH greater than 2 drinks per day. Negative for: GERD. : No history of dysuria, frequency or incontinence, stones or chronic kidney disease. No difficulty urinating, nocturia > 1 time per night or hematuria. Endocrine: Positive for: diabetes mellitus and hypothyroidism. Patient's diabetes mellitus is controlled by insulin and oral agents. Hematology: No history of bleeding or clotting disorder. Patient is not taking anti-coagulation or platelet medications. No history of hematological symptoms or problems. Negative for: chronic anti-coagulation/platelet meds. Oncology: No history of CA metastasis, chemo within 30 days, or radiotherapy within 90 days. No history of oncological symptoms or problems. Psych: Schizoaffective bipolar Adjustment disorder with depressed mood Positive for: anxiety, bipolar disorder and depression. Musculoskeletal: DDD Chronic back pain Positive for: back pain. Skin: Chronic skin issues comment: Large scars right forearm from brown recluse spider bite Negative for: lesions, itching and rash. PAST MEDICAL HISTORY Diagnosis Date - Adjustment disorder with depressed mood - Anxiety disorder in conditions classified elsewhere - Asthma 03/31/2019 mild well controlled - Chronic bilateral low back pain without sciatica 03/17/2016 - Degenerative disc disease, lumbar - Diabetes mellitus type II - Diabetic neuropathy ([facility]) 12/11/2017 feet only - Endometrial cancer ([facility]) - Fibromyalgia - Hypothyroidism - Insomnia, unspecified - Lazy eye since - Menopause - Morbid obesity with BMI of 45.0-49.9, adult ([facility]) 03/29/2017 - Schizoaffective disorder, bipolar type ([facility]) 04/14/2015 states no longer - Sleep apnea CPAP occasional usage - Tobacco use disorder 01/21/2021 PAST SURGICAL HISTORY Procedure Laterality Date - BACK SURGERY HX 02/03/2019 bilateral laminotomies, decompression L5 and S1 nerve roots, removal of epidural lipomatosis - D+C 01/28/2021 Adenocarcioma FIGO 1, [facility]. Dr. Phan - LAP SURG APPENDECTOMY [...] Mother - Hypertension Mother - Lipids Father Social History Tobacco Use - Smoking status: Current Every Day Sm (more content not included)... Normal [facility] NURSING PROGon 03-04-2021 NURSING PROG HNO ID: [id number] Author: Iona Tracey RN Service: Nursing Author Type: Registered Nurse Type: Nursing Progress Note Filed: 03/04/2021 12:13 PM Note Text: Pt did not know that she had PST appointment for tomorrow and she is not able to come for appointment. Instructed patient to call Dr Sosa's office. Patient verbalized understanding. Normal [facility] CNPNon 02-23-2021 [place] Telephone ([place]) -- JODIE CHILEL ([id number]) 1970 F Date Time Provider Department 02/23/21 HEMANT SOSA During your visit today, we recorded the following information about you: Chinyere Mccray RN 02/23/2021 1:38 PM Signed Patient called reports stabbing, left ovary pain 01/26. Patient has upcoming surgery with Dr. Sosa 03/08. Per patient pain is constant, she has been taking Tylenol with no relief. Patient requesting something for pain. Please advise. Thank you! NKDA. Preferred pharmacy is [facility] in [place], [place]. GERALDINE Rich APRN.CNP 02/23/2021 2:08 PM Signed Spoke with patient. Acute onset pain x 4 days. Increased fatigue. Pain is persistent. Advised follow up at urgent care/ed nearby. Patient will call after evaluated. TERESE Verduzco APRN.CNP 02/26/2021 10:22 AM Signed Message left to follow up. Advised patient to call back with update. TERESE Verduzco APRN.CNP 02/26/2021 11:23 AM Signed Pain drastically improved. Radha Dugan APRN.CNP Allergies As of Date: 02/23/2021 Noted Allergy Reaction LATEX 08/01/2008 4 - Hives CODEINE 08/01/2008 11 - Vomiting Comments: Vomiting when tried once PENICILLINS 08/01/2008 SEASONAL ALLERGIES 11/01/2010 14 - Other: See Comments Date Reviewed: 02/16/2021 Reviewed by: Chinyere Mccray RN - Fully Assessed Reason for Visit: Patient Question [1477] Prescriptions as of 02/26/2021 - Alpha Lipoic Acid 600 mg cap Take 600 mg by mouth once daily. - OXcarbazepine (TRILEPTAL) 300 mg tablet Take [...] daily. Dx: e11.65, Z79.4. Insulin: yes - COMPOUNDED PRESCRIPTION Diabetic Shoes--fitted with inserts for flat feet, 1 pair Diagnosis: (M21.41, M21.42) Pes planus of both feet ; (E11.40) Controlled type 2 diabetes mellitus with diabetic neuropathy, without long-term current use of insulin (HCC) - flash glucose scanning reader ([employer] JALIL 14 DAY READER) misc 1 Device once daily. - fluticasone (FLONASE) 50 mcg/actuation nasal spray Use 2 Sprays in each nostril daily at bedtime. - albuterol HFA (PROVENTIL HFA, VENTOLIN HFA) 90 mcg/actuation inhaler Inhale 2 Puffs as instructed every 4 hours as needed for Wheezing/Shortness of Breath. Meds Comments as of 12/02/2014: Problem List As Of Date 02/23/2021 Noted Resolved Schizoaffective disorder (HCC) [F25.9] 02/13/2012 [...] [J45.909] 03/31/2019 Endometrial adenocarcinoma (HCC) [C54.1] 02/10/2021 Encounter Status:Closed by RADHA DUGAN on 02/23/21 Normal [facility] Basic metabolic 2000 panelon 02-16-2021 Anion gap [Moles/Vol] 14 mmol/L [facility]: Order Comment: Speci men Type: BLOOD SPECIMEN Performed By: #### 2 4321-2 #### [facility] CLIA [id number] [address] Calcium [Mass/Vol] 9.0 mg/dL Normal 8.5-10.2 [facility] Comment on above: Order Comment: Speci men Type: BLOOD SPECIMEN Performed By: #### 2 4321-2 #### [facility] CLIA [id number] [address] Chloride [Moles/Vol] 101 mmol/L Normal 97-105 [facility] Comment on above: Order Comment: Speci men Type: BLOOD SPECIMEN Performed By: #### 2 4321-2 #### [facility] CLIA [id number] [address] CO2 [Moles/Vol] 23 mmol/L Normal 22-30 [facility] Comment on above: Order Comment: Speci men Type: BLOOD SPECIMEN Performed By: #### 2 4321-2 #### [facility] CLIA [id number] [address] STATES [facility] Creatinine [Mass/Vol] 0.57 mg/dL Low 0.58-0.96 [facility] Comment on above: Order Comment: Speci men Type: BLOOD SPECIMEN Performed By: #### 2 4321-2 #### [facility] CLIA [id number] [address] [place] GFR/1.73 sq M.predicted MDRD (S/P/Bld) [Vol rate/Area] mL/min/{1.73_m2} Normal [facility] Comment on above: Order Comment: Speci men Type: BLOOD SPECIMEN Result Comment: >60 eGFR (Estimated GFR) Units of measure: mL/min/1.73 meters squared eGFR is derived from the reexpressed MDRD Study equation using the following parameters: serum creatinine, age, gender and race. The creatinine assay has been calibrated to be traceable to IDMS. An eGFR <60 mL/min/1.73m2 for >3 months is consistent with chronic kidney disease. Refer to KDOQI guidelines for clinical interpretation. In patients with unstable renal function, e.g. those with acute kidney injury, the eGFR may not accurately reflect actual GFR. Performed By: #### 2 4321-2 #### [facility] CLIA [id number] [address] [place] [address] [place] Glucose [Mass/Vol] 134 mg/dL High 74-99 [facility] Comment on above: Order Comment: Speci men Type: BLOOD SPECIMEN Result Comment: The [place] Diabetes Association (ADA) provides guidance for cutoff values for fasting glucose and random glucose. The ADA defines fasting as no caloric intake for at least 8 hours. Fasting plasma glucose results between 100 to 125 mg/dL indicate increased risk for diabetes (prediabetes). Fasting plasma glucose results greater than or equal to 126 mg/dL meet the criteria for diagnosis of diabetes. In the absence of unequivocal hyperglycemia, results should be confirmed by repeat testing. In a patient with classic symptoms of hyperglycemia or hyperglycemic crisis, random plasma glucose results greater than or equal to 200 mg/dL meet the criteria for diagnosis of diabetes. Reference: Standards of Medical Care in Diabetes 2016, [place] Diabetes Association. Diabetes Care. 2016.39(Suppl 1). Performed By: #### 2 4321-2 #### [facility] CLIA [id number] [address] [place] Potassium [Moles/Vol] 4.2 mmol/L Normal 3.7-5.1 [facility] Comment on above: Order Comment: Speci men Type: BLOOD SPECIMEN Performed By: #### 2 4321-2 #### [facility] CLIA [id number] [address] [place] Sodium [Moles/Vol] 138 mmol/L Normal 136-144 [facility] Comment on above: Order Comment: Speci men Type: BLOOD SPECIMEN Performed By: #### 2 4321-2 #### [facility] CLIA [id number] [address] [place] Urea nitrogen [Mass/Vol] 12 mg/dL Normal 7-21 [facility] Comment on above: Order Comment: Speci men Type: BLOOD SPECIMEN Performed By: #### 2 4321-2 #### [facility] CLIA [id number] [address] [place] 125 BLDon 02-16-2021 Cancer Ag 125 IA Qn 5 U/mL Normal 0-30 [facility] Comment on above: Order Comment: Speci men Type: BLOOD SPECIMEN Result Comment: CA 1 25 test methodology used is the Electrochemiluminescence Immunoassay by [employer]. The reference interval is based on the 95th percentile of 240 apparently healthy premenopausal and postmenopausal women. At a cutoff value of 65 U/mL, the test sensitivity to distinguish ovarian carcinoma (FIGO stage I to IV) versus benign gynecological disease is 79%, with a specificity of 82%. Reference: Cancer Antigen 125 (CA 125 II) [package insert V 1.0 [place]ian]. [employer], [place], [place] (March 2015) Performed By: #### C A125 #### [facility] CLIA [id number] [address] CBC panel Auto (Bld)on 02-16 Erythrocyte distribution width (RBC) [Ratio] 13.4 % Normal 11.5-15.0 [facility] Comment on above: Order Comment: Speci men Type: BLOOD SPECIMEN Performed By: #### 5 8410-2 #### [facility] CLIA [id number] [address] Hematocrit (Bld) [Volume fraction] 48.2 % High 36.0-46.0 [facility] Comment on above: Order Comment: Speci men Type: BLOOD SPECIMEN Performed By: #### 5 8410-2 #### [facility] CLIA [id number] [address] Hemoglobin (Bld) [Mass/Vol] 16.1 g/dL High 11.5-15.5 [facility] Comment on above: Order Comment: Speci men Type: BLOOD SPECIMEN Performed By: #### 5 8410-2 #### [facility] CLIA [id number] [address] MCH (RBC) [Entitic mass] 29.9 pg Normal 26.0-34.0 [facility] Comment on above: Order Comment: Speci men Type: BLOOD SPECIMEN Performed By: #### 5 8410-2 #### [facility] CLIA [id number] [address] MCHC (RBC) [Mass/Vol] 33.4 g/dL Normal 30.5-36.0 [facility] Comment on above: Order Comment: Speci men Type: BLOOD SPECIMEN Performed By: #### 5 8410-2 #### [facility] CLIA [id number] [address] MCV (RBC) [Entitic vol] 89.6 fL Normal 80.0-100.0 [facility] Comment on above: Order Comment: Speci men Type: BLOOD SPECIMEN Performed By: #### 5 8410-2 #### [facility] CLIA [id number] [address] Nucleated RBC (Bld) [#/Vol] 10*3/uL Normal <0.01 [facility] Comment on above: Order Comment: Speci men Type: BLOOD SPECIMEN Performed By: #### 5 8410-2 #### [facility] CLIA [id number] [address] Platelet mean volume (Bld) [Entitic vol] 9.9 fL Normal 9.0-12.7 [facility] Comment on above: Order Comment: Speci men Type: BLOOD SPECIMEN Performed By: #### 5 8410-2 #### [facility] CLIA [id number] [address] Platelets (Bld) [#/Vol] 194 10*3/uL Normal 150-400 [facility] Comment on above: Order Comment: Speci men Type: BLOOD SPECIMEN Performed By: #### 5 8410-2 #### [facility] CLIA [id number] [address] RBC (Bld) [#/Vol] 5.38 10*6/uL High 3.90-5.20 [facility] Comment on above: Order Comment: Speci men Type: BLOOD SPECIMEN Performed By: #### 5 8410-2 #### [facility] CLIA [id number] [address] WBC (Bld) [#/Vol] 8.22 10*3/uL Normal 3.70-11.00 [facility] [facility] Comment on above: Order Comment: Speci men Type: BLOOD SPECIMEN Performed By: #### 5 8410-2 #### [facility] CLIA [id number] [address] CNOVSPon 02-16-2021 CNOVSP Visit (SP) Office (AGGYNZAPOB) -- JODIE CHILEL ([id number]) 1970 F Date Time Provider Department 02/16/21 1:20 PM HEMANT SOSA During your visit today, we recorded the following information about you: Temperature Pulse Blood pressure Weight 95.8 degrees 100/minute 128/86 94.1 kg Height 1.524 m Hemant Sosa MD 02/25/2021 2:02 PM Signed Gynecologic Oncology [facility] Consultation Date: 02/16/2021 PROBLEM/CC: Jodie Chilel is a consult form Dr. Mary Xiong MD regarding endometrial adenocarcinoma. HPI: Ms. Chilel is a 50 year old female who [...] Diabetes mellitus type II - Diabetic neuropathy ([facility]) 12/11/2017 - Fibromyalgia - Hypothyroidism - Insomnia, unspecified - Lazy eye since - Menopause - Morbid obesity with BMI of 45.0-49.9, adult ([facility]) 03/29/2017 - Schizoaffective disorder, bipolar type ([facility]) 04/14/2015 - Tobacco use disorder 01/21/2021 Sleep Apnea PAST SURGICAL HISTORY Procedure Laterality Date - BACK SURGERY HX 02/03/2019 bilateral laminotomies, decompression L5 and S1 nerve roots, removal of epidural lipomatosis - D+C 01/28/2021 Adenocarcioma FIGO 1, [facility]. Dr. Phan - LAP SURG APPENDECTOMY [...] once daily. Take on empty stomach. For thyroi (more content not included)... Normal [facility] CONFIRM BLOOD TYPEon 021 ABO A Normal [facility] Comment on above: Order Comment: Speci men Type: BLOOD SPECIMEN Performed By: #### C ONABO ####[facility] [id number] [address] [place] Rh Nom (Bld) Positive Normal [facility] Comment on above: Order Comment: Speci men Type: BLOOD SPECIMEN Performed By: #### C ONABO ####[facility] [id number] [address] PT panel Coag (PPP)on 2020 INR Coag (PPP) [Relative time] 1.1 {INR} Normal 0.9-1.3 [facility] Comment on above: Order Comment: Speci men Type: BLOOD SPECIMEN Result Comment: Nikkie min K Antagonist (VKA) Therapeutic Range: INR 2 to 3 (Target INR of 2.5) Note: For patients treated with VKA drugs, such as warfarin, the [place] [employer] 2012 Guideline recommends a therapeutic INR range of 2 to 3 (target INR of 2.5). This recommendation includes high-risk patients with antiphospholipid syndrome with previous arterial or venous thromboembolism, current-generation mechanical or bioprosthetic aortic heart valve replacement. Note: Patients with mechanical aortic valve replacement and additional risk factors for thromboembolic events (atrial fibrillation, previous thromboembolism, LV dysfunction, hypercoagulable conditions) or an older generation mechanical AVR (i.e., ball in-Cage) or any mechanical MVR should have a INR therapeutic range of 2.5 to 3.5 (target INR of 3). Guyatt GH, et al. Chest 2012, 141:7S-47S Gretchen RA, et al. [facility] 2017, 70: 252-289 Performed By: #### 1 4979-9, 70171-3 #### [facility] CLIA [id number] [address] PT Coag (PPP) [Time] 11.3 s Normal 9.7-13.0 [facility] Comment on above: Order Comment: Speci men Type: BLOOD SPECIMEN Performed By: #### 1 4979-9, 11255-4 #### [facility] CLIA [id number] [address] TYPE AND SCREEN,30 DAYon ABO A Normal [facility] Comment on above: Order Comment: Speci men Type: BLOOD SPECIMEN Performed By: #### T SCR30 ####[facility]ANKCLIA [id number] [place], [place] [id number] [place] [address] HISTORICAL AB SCR STATUS Negative Normal [facility] Comment on above: Order Comment: Speci men Type: BLOOD SPECIMEN Performed By: #### T SCR30 ####[facility]CLIA [id number] [place] [address] [facility] Rh Nom (Bld) Positive Normal [facility] Comment on above: Order Comment: Speci men Type: BLOOD SPECIMEN Performed By: #### T SCR30 ####[facility]CLIA [id number] [address] TYPE AND SCREEN EXPIRATION 03/18/2021 23:59 Normal [facility] Comment on above: Order Comment: Speci men Type: BLOOD SPECIMEN Performed By: #### T SCR30 ####[facility]CLIA [id number] [address] aPTT PPPon 02-16-2021 aPTT Coag (PPP) [Time] 27.1 s Normal 23.0-32.4 [facility] Comment on above: Order Comment: Speci men Type: BLOOD SPECIMEN Performed By: #### 1 4979-9, 55070-9 #### [facility] CLIA [id number] [address] XR Chest PA and Lateralon IMPRESSION: Findings suggestive of mild atelectasis in the right middle lobe. Duck Farmer: PSCB Transcribe Date/Time: Sep 01 2020 5:54P Dictated by : JANA LEDEZMA MD This examination was interpreted and the report reviewed and electronically signed by: JANA LEDEZMA MD on Sep 01 2020 5:55PM [facility] DIVISION OF RADIOLOGY * * *Final Report* * * DATE OF EXAM: Sep 01 2020 5:49PM WOX 5291 - XR CHEST 2V FRONTAL/LAT / PROCEDURE REASON: Cough * * * * Physician Interpretation * * * * EXAMINATION: CHEST RADIOGRAPH (2 VIEW FRONTAL & LATERAL) CLINICAL HISTORY: Cough MQ: XC2_6 EXAM DATE/TIME: 09/01/2020 5:49 PM COMPARISON: No relevant prior studies available. RESULT: Lines, tubes, and devices: None. Lungs and pleura: No consolidation. No lung mass. No pleural effusion. No pneumothorax. Mild linear densities are noted in the right middle lobe suggestive of discoid atelectasis. Otherwise, the lungs appear clear. There is mild elevation the right hemidiaphragm. Cardiomediastinal silhouette: Normal cardiomediastinal silhouette. Bones and soft tissues: Unremarkable. DIVISION OF RADIOLOGY Provider, [facility] - 09/01/2020 * * *Final Report* * * DATE OF EXAM: Sep 01 2020 5:49PM WOX 5291 - XR CHEST 2V FRONTAL/LAT / PROCEDURE REASON: Cough * * * * Physician Interpretation * * * * EXAMINATION: CHEST RADIOGRAPH (2 VIEW FRONTAL & LATERAL) CLINICAL HISTORY: Cough MQ: XC2_6 EXAM DATE/TIME: 09/01/2020 5:49 PM COMPARISON: No relevant prior studies available. RESULT: Lines, tubes, and devices: None. Lungs and pleura: No consolidation. No lung mass. No pleural effusion. No pneumothorax. Mild linear densities are noted in the right middle lobe suggestive of discoid atelectasis. Otherwise, the lungs appear clear. There is mild elevation the right hemidiaphragm. Cardiomediastinal silhouette: Normal cardiomediastinal silhouette. Bones and soft tissues: Unremarkable. IMPRESSION IMPRESSION: Findings suggestive of mild atelectasis in the right middle lobe. Duck Farmer: PSCSabas Transcribe Date/Time: Sep 01 2020 5:54P Dictated by : JANA LEDEZMA MD This examination was interpreted and the report reviewed and electronically signed by: JANA LEDEZMA MD on Sep 01 2020 5:55PM EST [facility] Radiology Study observation (narrative) [facility] XR Chest PA and LateralOrder ed By: Ccf Provider on 09-01-2020 [facility] MRI SPINE LUMBAR W/ + W/O CO NTRASTon 04-26-2019 MRI SPINE LUMBAR W/ + W/O CONTRAST ORIGINAL MRI SPINE LUMBAR W/ + W/O CONTRAST ORDERING PROVIDER: MARIA L HAYDEN CLINICAL STATEMENT: SPINAL STENOSIS , LUMBAR REGION WITH NEUROGENIC CLAUDICATION. Patient reports low back pain and burning sensation down LEFT lower extremity since lumbar surgery. TECHNIQUE: Sagittal T2, T1, T1 postcontrast, and STIR; axial T2, T1, T1 postcontrast sequences were acquired. COMPARISON: Lumbar spine (02/01/2019). FINDINGS: Vertebral Nomenclature: For purposes of this dictation, it is assumed that there are 5 unb-ose-ausvosi, lumbar-type vertebrae, and the most caudal fully segmented lumbar vertebra is labeled L5. The lumbar spine demonstrates normal alignment. Vertebral bodies are normal in height. There is minimal degenerative marrow signal change. Intervertebral discs are normal in height and demonstrate mild disc desiccation. There are postsurgical changes consistent with L5 laminectomy. A small rim-enhancing fluid collection is noted in the posterior lumbar spine at L5. The conus medullaris terminates at a normal level and the nerve roots of the cauda equina appear normal. The included paraspinal soft tissues and retroperitoneal structures are grossly normal. Following the administration of gadolinium there is enhancement consistent with scar formation. L1-2: No stenosis. L2-3: No stenosis. L3-4: No stenosis. L4-5: No stenosis. L5-S1: No stenosis. Mild lateral recess narrowing. Postsurgical changes consistent with laminectomy is noted. IMPRESSION: 1. Rim-enhancing presumably postoperative fluid collection posterior to L5. 2. No clinically significant stenoses or foraminal narrowing. 3. Postsurgical changes consistent with L5 laminectomy. I have personally reviewed the images of this examination and agree with the resident's findings and interpretation. Interpreted By: Bob Muhammad MD Preliminary Report By: Wang Sultana DO Electronically Signed By: Bob Muhammad MD Dictated Date: 04/26/2019 2:11:53 PM Prelim Date: 04/26/2019 2:37:58 PM Sign Date: 04/26/2019 3:11:21 PM Ordering Provider:Maria L Hayden [facility] ([place] .GFRon 02-04-2019 GFR >60 Normal [facility] ([place]) Comment on above: Result Comment: GFR Population mean for , Non- Americans Ages 20-29 = 116 mL/min/1.73 sq.m. Ages 30-39 = 107 mL/min/1.73 sq.m. Ages 40-49 = 99 mL/min/1.73 sq.m. Ages 50-59 = 93 mL/min/1.73 sq.m. Ages 60-69 = 85 mL/min/1.73 sq.m. Ages 70+ = 75 mL/min/1.73 sq.m. Chronic Kidney Disease: Less than 60 mL/min/1.73 square meters End Stage Renal Disease: Less than 15 mL/min/1.73 square meters Performed By: #### G FR, ANEU, CBC, ADIFF, BMP #### [address] [address] GFR Non- >60 Normal [facility] ([place] Comment on above: Result Comment: GFR Population mean for , Non- Americans Ages 20-29 = 116 mL/min/1.73 sq.m. Ages 30-39 = 107 mL/min/1.73 sq.m. Ages 40-49 = 99 mL/min/1.73 sq.m. Ages 50-59 = 93 mL/min/1.73 sq.m. Ages 60-69 = 85 mL/min/1.73 sq.m. Ages 70+ = 75 mL/min/1.73 sq.m. Chronic Kidney Disease: Less than 60 mL/min/1.73 square meters End Stage Renal Disease: Less than 15 mL/min/1.73 square meters Performed By: #### G FR, ANEU, CBC, ADIFF, BMP #### [address] [address] A1Con 02-04-2019 HbA1c (Bld) [Mass fraction] 8.8 % High 4.0-6.0 [facility] ([place] Comment on above: Performed By: #### G FR, ANEU, CBC, ADIFF, BMP #### [address] [address] [facility] Calcium [Mass/Vol] 8.3 mg/dL Low 8.4-10.1 [facility] ([place]) Comment on above: Performed By: #### G FR, ANEU, CBC, ADIFF, BMP #### [address] [address] Chloride [Moles/Vol] 104 mmol/L Normal 98-110 [facility] ([place]) Comment on above: Performed By: #### G FR, ANEU, CBC, ADIFF, BMP #### [address] [address] CO2 [Moles/Vol] 29 mmol/L Normal 22-32 [facility] ([place] Comment on above: Performed By: #### G FR, ANEU, CBC, ADIFF, BMP #### [address] [address] Creatinine [Mass/Vol] 0.81 mg/dL Normal 0.50-1.20 [facility] ([place] Comment on above: Performed By: #### G FR, ANEU, CBC, ADIFF, BMP #### [address] [address] Electrolyte Balance 8.0 mEq/L Normal 4.0-15.0 [facility] ([place] Comment on above: Performed By: #### G FR, ANEU, CBC, ADIFF, BMP #### [address] [address] Glucose [Mass/Vol] 252 mg/dL High 70-110 [facility] ([place]) Comment on above: Performed By: #### G FR, ANEU, CBC, ADIFF, BMP #### [address] [address] Potassium [Moles/Vol] 4.0 mmol/L Normal 3.5-5.0 [facility] ([place] Comment on above: Performed By: #### G FR, ANEU, CBC, ADIFF, BMP #### [address] [address] Sodium [Moles/Vol] 141 mmol/L Normal 136-145 [facility] ([place] Comment on above: Performed By: #### G FR, ANEU, CBC, ADIFF, BMP #### [address] [address] Urea nitrogen [Mass/Vol] 21.0 mg/dL Normal 8.0-22.0 [facility] ([place] Comment on above: Performed By: #### G FR, ANEU, CBC, ADIFF, BMP #### [place] [id number] Urea nitrogen/Creatinine [Mass ratio] 25.9 ratio High 10.0-22.0 [facility] ([place] Comment on above: Performed By: #### G FR, ANEU, CBC, ADIFF, BMP #### [address] [address] HGMPon 02-04-2019 Erythrocyte distribution width (RBC) [Ratio] 14.6 % Normal 11.5-15.5 [facility] ([place] Comment on above: Performed By: #### G FR, ANEU, CBC, ADIFF, BMP #### [place] [id number] Hematocrit (Bld) [Volume fraction] 40.2 % Normal 34.0-46.0 [facility] ([place] Comment on above: Performed By: #### G FR, ANEU, CBC, ADIFF, BMP #### [place] [id number] Hemoglobin (Bld) [Mass/Vol] 13.2 G/dL Normal 12.0-16.0 [facility] ([place] Comment on above: Performed By: #### G FR, ANEU, CBC, ADIFF, BMP #### [place] [id number] MCH (RBC) [Entitic mass] 29.9 pg Normal 27.0-33.0 [facility] ([place] Comment on above: Performed By: #### G FR, ANEU, CBC, ADIFF, BMP #### [place] [id number] MCHC (RBC) [Mass/Vol] 32.9 G/dL Normal 32.0-36.0 [facility] ([place] Comment on above: Performed By: #### G FR, ANEU, CBC, ADIFF, BMP #### [place] [id number] MCV (RBC) [Entitic vol] 90.9 fL Normal 80.0-99.0 [facility] ([place] Comment on above: Performed By: #### G FR, ANEU, CBC, ADIFF, BMP #### [address] [address] Platelet mean volume (Bld) [Entitic vol] 8.4 fL Normal 6.6-10.5 [facility] ([place] Comment on above: Performed By: #### G FR, ANEU, CBC, ADIFF, BMP #### [address] [address] Platelets (Bld) [#/Vol] 166 10 3/mcL Normal 150-450 [facility] ([place] Comment on above: Performed By: #### G FR, ANEU, CBC, ADIFF, BMP #### [place] [id number] RBC (Bld) [#/Vol] 4.42 10 6/mcL Normal 4.10-5.30 [facility] ([place]) Comment on above: Performed By: #### Arben FR, ANEU, CBC, ADIFF, BMP #### [place] [id number] WBC (Bld) [#/Vol] 10.20 10 3/mcL Normal 4.50-10.80 [facility] ([place] Comment on above: Performed By: #### G FR, ANEU, CBC, ADIFF, BMP #### [place] [id number] .Auto Diffon 02-03-2019 Ammonia (P) [Mass/Vol] 1.00 10 3/mcL Normal 0.09-1.40 [facility] ([place] Comment on above: Performed By: #### C BC, ANEU, ADIFF #### [place] [id number] Basophils (Bld) [#/Vol] 0.00 10 3/mcL Normal 0.00-0.27 [facility] ([place] Comment on above: Performed By: #### C BC, ANEU, ADIFF #### [place] [id number] Basophils/100 WBC (Bld) 0.1 % Normal 0.0-2.5 [facility] ([place] Comment on above: Performed By: #### C BC, ANEU, ADIFF #### [facility] [address] [place] [address] Eosinophils (Bld) [#/Vol] 0.00 10 3/mcL Normal 0.00-0.65 [facility] ([place]) Comment on above: Performed By: #### C BC, ANEU, ADIFF #### [facility] [address] [place] [address] Eosinophils/100 WBC (Bld) 0.0 % Normal 0.0-6.0 [facility] ([place]) Comment on above: Performed By: #### C BC, ANEU, ADIFF #### [facility] [address] [place] [address] Lymphocytes (Bld) [#/Vol] 2.20 10 3/mcL Normal 0.90-4.32 [facility] ([place]) Comment on above: Performed By: #### C BC, ANEU, ADIFF #### [address] [address] Lymphocytes/100 WBC (Bld) 15.0 % Low 20.0-40.0 [facility] ([place]) Comment on above: Performed By: #### C BC, ANEU, ADIFF #### [address] [address] Monocytes/100 WBC (Bld) 6.7 % Normal 2.0-13.0 [facility] ([place]) Comment on above: Performed By: #### C BC, ANEU, ADIFF #### [address] [address] Neutrophils/100 WBC (Bld) 78.2 % High 50.0-75.0 [facility] ([place]) Comment on above: Performed By: #### C BC, ANEU, ADIFF #### [address] [address] .GFRon 02-03-2019 GFR >60 Normal [facility] ([place]) Comment on above: Result Comment: GFR Population mean for , Non- Americans Ages 20-29 = 116 mL/min/1.73 sq.m. Ages 30-39 = 107 mL/min/1.73 sq.m. Ages 40-49 = 99 mL/min/1.73 sq.m. Ages 50-59 = 93 mL/min/1.73 sq.m. Ages 60-69 = 85 mL/min/1.73 sq.m. Ages 70+ = 75 mL/min/1.73 sq.m. Chronic Kidney Disease: Less than 60 mL/min/1.73 square meters End Stage Renal Disease: Less than 15 mL/min/1.73 square meters Performed By: #### G FR, ANEU, CBC, ADIFF, BMP #### [address] [address] GFR Non- >60 Normal [facility] ([place] Comment on above: Result Comment: GFR Population mean for , Non- Americans Ages 20-29 = 116 mL/min/1.73 sq.m. Ages 30-39 = 107 mL/min/1.73 sq.m. Ages 40-49 = 99 mL/min/1.73 sq.m. Ages 50-59 = 93 mL/min/1.73 sq.m. Ages 60-69 = 85 mL/min/1.73 sq.m. Ages 70+ = 75 mL/min/1.73 sq.m. Chronic Kidney Disease: Less than 60 mL/min/1.73 square meters End Stage Renal Disease: Less than 15 mL/min/1.73 square meters Performed By: #### G FR, ANEU, CBC, ADIFF, BMP #### [address] [address] .NEUABSon 02-03-2019 Neutrophils (Bld) [#/Vol] 11.40 10 3/mcL High 2.25-8.10 [facility] ([place] Comment on above: Performed By: #### C BC, ANEU, ADIFF #### [address] [address] CBCon 02-03-2019 Erythrocyte distribution width (RBC) [Ratio] 15.0 % Normal 11.5-15.5 [facility] ([place] Comment on above: Performed By: #### C BC, ANEU, ADIFF #### [address] [address] Hematocrit (Bld) [Volume fraction] 41.8 % Normal 34.0-46.0 [facility] ([place] Comment on above: Performed By: #### C BONITA LINARES, ADIFF #### [address] [address] Hemoglobin (Bld) [Mass/Vol] 13.5 G/dL Normal 12.0-16.0 [facility] ([place] Comment on above: Performed By: #### C BONITA LINARES, ADIFF #### [address] [address] MCH (RBC) [Entitic mass] 29.7 pg Normal 27.0-33.0 [facility] ([place] Comment on above: Performed By: #### C BONITA LINARES, ADIFF #### [address] [address] MCHC (RBC) [Mass/Vol] 32.4 G/dL Normal 32.0-36.0 [facility] ([place] Comment on above: Performed By: #### C BONITA LINARES, ADIFF #### [address] [address] MCV (RBC) [Entitic vol] 91.7 fL Normal 80.0-99.0 [facility] ([place] Comment on above: Performed By: #### C BONITA LINARES, ADIFF #### [address] [address] Platelet mean volume (Bld) [Entitic vol] 8.6 fL Normal 6.6-10.5 [facility] ([place] Comment on above: Performed By: #### C BONITA LINARES, ADIFF #### [address] [address] Platelets (Bld) [#/Vol] 215 10 3/mcL Normal 150-450 [facility] ([place] Comment on above: Performed By: #### C BONITA LINARES, ADIFF #### [address] [address] RBC (Bld) [#/Vol] 4.56 10 6/mcL Normal 4.10-5.30 [facility] ([place]) Comment on above: Performed By: #### C MILAGROS ANEU, ADIFF #### [place] [address] WBC (Bld) [#/Vol] 14.60 10 3/mcL High 4.50-10.80 [facility] ([place] Comment on above: Performed By: #### C BC, ANEU, ADIFF #### [place] [id number] CMPon 02-03-2019 AST [Catalytic activity/Vol] 36 U/L High 8-34 [facility] ([place] Comment on above: Performed By: #### G FR, ANEU, CBC, ADIFF, BMP #### [place] [address] Potassium [Moles/Vol] 4.0 mmol/L Normal 3.5-5.0 [facility] ([place] Comment on above: Performed By: #### G FR, ANEU, CBC, ADIFF, BMP #### [place] [address] Albumin/Globulin [Mass ratio] 0.9 {ratio} Normal 0.9-1.6 [facility] ([place] Comment on above: Performed By: #### G FR, ANEU, CBC, ADIFF, BMP #### [place] [address] ALP [Catalytic activity/Vol] 90 U/L Normal 38-126 [facility] ([place] Comment on above: Performed By: #### G FR, ANEU, CBC, ADIFF, BMP #### [place] [address] Bili Total 0.4 mg/dL Normal 0.2-1.2 [facility] ([place] Comment on above: Performed By: #### G FR, ANEU, CBC, ADIFF, BMP #### [place] [address] Creatinine [Mass/Vol] 0.66 mg/dL Normal 0.50-1.20 [facility] [place] Comment on above: Performed By: #### G FR, ANEU, CBC, ADIFF, BMP #### [address] [address] Globulin (S) [Mass/Vol] 3.5 G/dL Normal 1.5-3.8 [facility] ([place] Comment on above: Performed By: #### G FR, ANEU, CBC, ADIFF, BMP #### [address] [address] Protein [Mass/Vol] 6.8 G/dL Normal 6.0-8.5 [facility] ([place] Comment on above: Performed By: #### G FR, ANEU, CBC, ADIFF, BMP #### [address] [address] Urea nitrogen/Creatinine [Mass ratio] 28.8 ratio High 10.0-22.0 [facility] ([place] Comment on above: Performed By: #### G FR, ANEU, CBC, ADIFF, BMP #### [address] [address] Albumin [Mass/Vol] 3.3 G/dL Normal 3.2-4.8 [facility] ([place]) Comment on above: Performed By: #### G FR, ANEU, CBC, ADIFF, BMP #### [address] [address] ALT [Catalytic activity/Vol] 36 U/L Normal 10-49 [facility] ([place] Comment on above: Performed By: #### G FR, ANEU, CBC, ADIFF, BMP #### [address] [address] Calcium [Mass/Vol] 8.6 mg/dL Normal 8.4-10.1 [facility] ([place] Comment on above: Performed By: #### G FR, ANEU, CBC, ADIFF, BMP #### [address] [address] Chloride [Moles/Vol] 105 mmol/L Normal 98-110 [facility] ([place] Comment on above: Performed By: #### G FR, ANEU, CBC, ADIFF, BMP #### [address] [address] CO2 [Moles/Vol] 26 mmol/L Normal 22-32 [facility] ([place] Comment on above: Performed By: #### G FR, ANEU, CBC, ADIFF, BMP #### [address] [address] Electrolyte Balance 10.0 mEq/L Normal 4.0-15.0 [facility] ([place] Comment on above: Performed By: #### G FR, ANEU, CBC, ADIFF, BMP #### [place] [id number] Glucose [Mass/Vol] 221 mg/dL High 70-110 [facility] ([place] Comment on above: Performed By: #### G FR, ANEU, CBC, ADIFF, BMP #### [place] [id number] Sodium [Moles/Vol] 141 mmol/L Normal 136-145 [facility] ([place] Comment on above: Performed By: #### G FR, ANEU, CBC, ADIFF, BMP #### [place] [address] Urea nitrogen [Mass/Vol] 19.0 mg/dL Normal 8.0-22.0 [facility] ([place] Comment on above: Performed By: #### G FR, ANEU, CBC, ADIFF, BMP #### [address] [address] XR FLUORO 1-2 HRS TECH TIMEo n 02-03-2019 XR FLUORO 1-2 HRS TECH TIME ORIGINAL XR FLUORO 1-2 HRS TECH TIME CLINICAL STATEMENT: L5-S1 DECOMPRESS; PAIN HNP COMPARISON: None Technical Details: Tech Time - 10:00A-11:40A; C-Arm # - 7; Total Dose - 17.3MGY; Images - 4; Maintenance Planner - TLB; History - HNP; Fluoro Time - 10.7SEC; FINDINGS: Fluoroscopic spot images were provided for interpretation. They demonstrate surgical instruments projecting posterior to the lumbosacral junction. Detail is limited. Please see the operative note for details. Interpreted By: Stephanie Nicholas MD Preliminary Report By: Stephanie Nicholas MD Electronically Signed By: Stephanie Nicholas MD Dictated Date: 02/03/2019 11:09:10 AM Prelim Date: 02/03/2019 11:09:10 AM Sign Date: 02/03/2019 11:09:27 AM Normal [facility] ([place]) .Auto Diffon 02-01-2019 Ammonia (P) [Mass/Vol] 0.10 10 3/mcL Normal 0.09-1.40 [facility] ([place] Comment on above: Performed By: #### G FR, ANEU, CBC, ADIFF, BMP #### [address] [address] Basophils (Bld) [#/Vol] 0.00 10 3/mcL Normal 0.00-0.27 [facility] ([place] Comment on above: Performed By: #### G FR, ANEU, CBC, ADIFF, BMP #### [address] [id number] Basophils/100 WBC (Bld) 0.6 % Normal 0.0-2.5 [facility] ([place] Comment on above: Performed By: #### G FR, ANEU, CBC, ADIFF, BMP #### [address] [address] Eosinophils (Bld) [#/Vol] 0.00 10 3/mcL Normal 0.00-0.65 [facility] ([place] Comment on above: Performed By: #### G FR, ANEU, CBC, ADIFF, BMP #### [address] [address] Eosinophils/100 WBC (Bld) 0.5 % Normal 0.0-6.0 [facility] ([place] Comment on above: Performed By: #### G FR, ANEU, CBC, ADIFF, BMP #### [address] [address] Lymphocytes (Bld) [#/Vol] 0.90 10 3/mcL Normal 0.90-4.32 [facility] ([place] Comment on above: Performed By: #### G FR, ANEU, CBC, ADIFF, BMP #### [address] [address] Lymphocytes/100 WBC (Bld) 15.7 % Low 20.0-40.0 [facility] ([place] Comment on above: Performed By: #### G FR, ANEU, CBC, ADIFF, BMP #### [address] [address] Monocytes/100 WBC (Bld) 1.7 % Low 2.0-13.0 [facility] ([place] Comment on above: Performed By: #### G FR, ANEU, CBC, ADIFF, BMP #### [address] [address] Neutrophils/100 WBC (Bld) 81.5 % High 50.0-75.0 [facility] ([place] Comment on above: Performed By: #### G FR, ANEU, CBC, ADIFF, BMP #### [address] [address] .GFRon 02-01-2019 GFR >60 Normal [facility] ([place] Comment on above: Result Comment: GFR Population mean for , Non- Americans Ages 20-29 = 116 mL/min/1.73 sq.m. Ages 30-39 = 107 mL/min/1.73 sq.m. Ages 40-49 = 99 mL/min/1.73 sq.m. Ages 50-59 = 93 mL/min/1.73 sq.m. Ages 60-69 = 85 mL/min/1.73 sq.m. Ages 70+ = 75 mL/min/1.73 sq.m. Chronic Kidney Disease: Less than 60 mL/min/1.73 square meters End Stage Renal Disease: Less than 15 mL/min/1.73 square meters Performed By: #### G FR, ANEU, CBC, ADIFF, BMP #### [address] [address] GFR Non- >60 Normal [facility] ([place] Comment on above: Result Comment: GFR Population mean for , Non- Americans Ages 20-29 = 116 mL/min/1.73 sq.m. Ages 30-39 = 107 mL/min/1.73 sq.m. Ages 40-49 = 99 mL/min/1.73 sq.m. Ages 50-59 = 93 mL/min/1.73 sq.m. Ages 60-69 = 85 mL/min/1.73 sq.m. Ages 70+ = 75 mL/min/1.73 sq.m. Chronic Kidney Disease: Less than 60 mL/min/1.73 square meters End Stage Renal Disease: Less than 15 mL/min/1.73 square meters Performed By: #### G FR, ANEU, CBC, ADIFF, BMP #### [address] [address] .NEUABSon 02-01-2019 Neutrophils (Bld) [#/Vol] 4.70 10 3/mcL Normal 2.25-8.10 [facility] ([place] Comment on above: Performed By: #### G FR, ANEU, CBC, ADIFF, BMP #### [address] [address] BMPon 02-01-2019 Calcium [Mass/Vol] 8.0 mg/dL Low 8.4-10.1 [facility] ([place] Comment on above: Performed By: #### Arben FR, ANEU, CBC, ADIFF, BMP #### [place] [address] Chloride [Moles/Vol] 105 mmol/L Normal 98-110 [facility] ([place] Comment on above: Performed By: #### Arben FR, ANEU, CBC, ADIFF, BMP #### [place] [id number] CO2 [Moles/Vol] 27 mmol/L Normal 22-32 [facility] ([place] Comment on above: Performed By: #### Arben FR, ANEU, CBC, ADIFF, BMP #### [place] [address] Creatinine [Mass/Vol] 0.57 mg/dL Normal 0.50-1.20 [facility] ([place] Comment on above: Performed By: #### Arben FR, ANEU, CBC, ADIFF, BMP #### [address] [address] Electrolyte Balance 7.0 mEq/L Normal 4.0-15.0 [facility] ([place] Comment on above: Performed By: #### G FR, ANEU, CBC, ADIFF, BMP #### [address] [address] Glucose [Mass/Vol] 307 mg/dL High 70-110 [facility] ([place] Comment on above: Performed By: #### G FR, ANEU, CBC, ADIFF, BMP #### [address] [address] Potassium [Moles/Vol] 4.4 mmol/L Normal 3.5-5.0 [facility] ([place] Comment on above: Performed By: #### G FR, ANEU, CBC, ADIFF, BMP #### [address] [address] Sodium [Moles/Vol] 139 mmol/L Normal 136-145 [facility] ([place] Comment on above: Performed By: #### G FR, ANEU, CBC, ADIFF, BMP #### [place] [address] Urea nitrogen [Mass/Vol] 12.0 mg/dL Normal 8.0-22.0 [facility] ([place] Comment on above: Performed By: #### G FR, ANEU, CBC, ADIFF, BMP #### [place] [address] Urea nitrogen/Creatinine [Mass ratio] 21.1 ratio Normal 10.0-22.0 [facility] ([place] Comment on above: Performed By: #### G FR, ANEU, CBC, ADIFF, BMP #### [address] [address] CBCon 02-01-2019 Erythrocyte distribution width (RBC) [Ratio] 14.4 % Normal 11.5-15.5 [facility] [place] Comment on above: Performed By: #### G FR, ANEU, CBC, ADIFF, BMP #### [place] [id number] Hematocrit (Bld) [Volume fraction] 39.2 % Normal 34.0-46.0 [facility] ([place] Comment on above: Performed By: #### G FR, ANEU, CBC, ADIFF, BMP #### [address] [address] Hemoglobin (Bld) [Mass/Vol] 13.0 G/dL Normal 12.0-16.0 [facility] [place] Comment on above: Performed By: #### G FR, ANEU, CBC, ADIFF, BMP #### [address] [address] MCH (RBC) [Entitic mass] 30.0 pg Normal 27.0-33.0 [facility] [place] Comment on above: Performed By: #### G FR, ANEU, CBC, ADIFF, BMP #### [address] [address] MCHC (RBC) [Mass/Vol] 33.2 G/dL Normal 32.0-36.0 [facility] [place] Comment on above: Performed By: #### G FR, ANEU, CBC, ADIFF, BMP #### [place] [id number] MCV (RBC) [Entitic vol] 90.3 fL Normal 80.0-99.0 [facility] ([place] Comment on above: Performed By: #### G FR, ANEU, CBC, ADIFF, BMP #### [address] [address] Platelet mean volume (Bld) [Entitic vol] 8.8 fL Normal 6.6-10.5 [facility] [place] Comment on above: Performed By: #### G FR, ANEU, CBC, ADIFF, BMP #### [address] [address] Platelets (Bld) [#/Vol] 156 10 3/mcL Normal 150-450 [facility] [place] Comment on above: Performed By: #### G FR, ANEU, CBC, ADIFF, BMP #### [address] [address] RBC (Bld) [#/Vol] 4.35 10 6/mcL Normal 4.10-5.30 [facility] ([place] Comment on above: Performed By: #### G FR, ANEU, CBC, ADIFF, BMP #### [facility] [address] [place] [address] WBC (Bld) [#/Vol] 5.80 10 3/mcL Normal 4.50-10.80 [facility] ([place] Comment on above: Performed By: #### G FR, ANEU, CBC, ADIFF, BMP #### [facility] [address] [place] [address] Hemoglobin A1con 02-01-2019 HbA1c (Bld) [Mass fraction] 8.2 % High 4.3-5.6 [facility] Comment on above: Performed By: #### H BA1C #### [facility] Routine Lab [address] [place], [place] [address] HbA1c (Bld) [Mass fraction] 189 mg/dL Normal [facility] Comment on above: Performed By: #### H BA1C #### [facility] Routine Lab [address] [place] [address] XR SPINE LUMBAR AP/LAT/FLEX/ EXTon 02-01-2019 XR SPINE LUMBAR AP/LAT/FLEX/EXT ORIGINAL XR SPINE LUMBAR AP/LAT/FLEX/EXT, 02/01/2019 5:57 PM INDICATION: stability L5-s1 COMPARISON: Outside MR previous day FINDINGS: There are 5 lumbar type vertebral bodies counting from the last visible rib. There is minimal grade 1 retrolisthesis at L3-L4, no more than a few millimeters. There is no significant subluxation between flexion and extension views. The individual vertebral bodies are intact. There is mild scattered disc space narrowing. Facets are unremarkable. IMPRESSION: Mild degenerative disc disease. No significant subluxation. Interpreted By: Bob Muhammad MD Preliminary Report By: Bob Muhammad MD Electronically Signed By: Bob Muhammad MD Dictated Date: 02/01/2019 7:34:32 PM Prelim Date: 02/01/2019 7:34:32 PM Sign Date: 02/01/2019 7:35:41 PM Normal [facility] ([place] Vital Signs Date Time Vital Sign Value Performing Clinician Facility 11-26-2024 09:32-0400 Body height 152.[address] Sophie Huitron MD Work Phone: [facility] 11-26-2024 09:32-0400 Body mass index (BMI) [Ratio] 40 kg/m2 Dr. Sophie Huitron MD Work Phone: [facility] 11-26-2024 09:32-0400 Body weight 92.[address] Sophie Huitron MD Work Phone: [facility] 11-20-2024 09:57-0400 Body height 152.[address] Sophie Huitron MD Work Phone: [facility] 11-20-2024 09:57-0400 Body mass index (BMI) [Ratio] 39 kg/m2 Dr. Sophie Huitron MD Work Phone: [facility] 11-20-2024 09:57-0400 Body temperature 98.2 [degF] Dr. Sophie Huitron MD Work Phone: [facility] 11-20-2024 09:57-0400 Body weight 90.[address] Sophie Huitron MD Work Phone: [facility] 11-20-2024 09:57-0400 Diastolic blood pressure 75 mm[Hg] Dr. Sophie Huitron MD Work Phone: [facility] 11-20-2024 09:57-0400 Heart rate 94 /min Dr. Sophie Huitron MD Work Phone: [facility] 11-20-2024 09:57-0400 Respiratory rate 16 /min Dr. Sophie Huitron MD Work Phone: [facility] 11-20-2024 09:57-0400 SaO2% (BldA) [Mass fraction] 98 % Dr. Sophie Huitron MD Work Phone: [facility] 11-20-2024 09:57-0400 Systolic blood pressure 109 mm[Hg] Dr. Sophie Huitron MD Work Phone: [facility] 11-08-2024 22:12-0400 Body temperature 98.2 [degF] Dr. Sophie Huitron MD Work Phone: [facility] 11-08-2024 22:12-0400 Diastolic blood pressure 52 mm[Hg] Dr. Sophie Huitron MD Work Phone: [facility] 11-08-2024 22:12-0400 Heart rate 98 /min Dr. Sophie Huitron MD Work Phone: [facility] 11-08-2024 22:12-0400 Respiratory rate 18 /min Dr. Sophie Huitron MD Work Phone: [facility] 11-08-2024 22:12-0400 SaO2% (BldA) [Mass fraction] 99 % Dr. Sophie Huitron MD Work Phone: [facility] 11-08-2024 22:12-0400 Systolic blood pressure 102 mm[Hg] Dr. Sophie Huitron MD Work Phone: [facility] 11-08-2024 20:48-0400 Body height 152.[address] Sophie Huitron MD Work Phone: [facility] 11-08-2024 20:48-0400 Body mass index (BMI) [Ratio] 41.1 kg/m2 Dr. Sophie Huitron MD Work Phone: [facility] 11-08-2024 20:48-0400 Body weight 95.[address] Sophie Huitron MD Work Phone: [facility] 10-02-2024 11:37-0400 Body mass index (BMI) [Ratio] 40.8 kg/m2 Dr. Sophie Huitron MD Work Phone: [facility] 10-02-2024 11:37-0400 Body temperature 98.4 [degF] Dr. Sophie Huitron MD Work Phone: [facility] 10-02-2024 11:37-0400 Body weight 94.[address] Sophie Huitron MD Work Phone: [facility] 10-02-2024 11:37-0400 Diastolic blood pressure 72 mm[Hg] Dr. Sophie Huitron MD Work Phone: [facility] 10-02-2024 11:37-0400 Heart rate 101 /min Dr. Sophie Huitron MD Work Phone: [facility] 10-02-2024 11:37-0400 Respiratory rate 16 /min Dr. Sophie Huitron MD Work Phone: [facility] 10-02-2024 11:37-0400 SaO2% (BldA) [Mass fraction] 98 % Dr. Sophie Huitron MD Work Phone: [facility] 10-02-2024 11:37-0400 Systolic blood pressure 104 mm[Hg] Dr. Sophie Huitron MD Work Phone: [facility] 09-12-2024 09:35-0400 Body height 151 cm Nacho Cornell LICSW.DRESSMAKER HELPER Work Phone: [facility] 09-12-2024 09:35-0400 Body mass index (BMI) [Ratio] 41.66 kg/m2 Nacho Cornell LICSW.DRESSMAKER HELPER Work Phone: [facility] 09-12-2024 09:35-0400 Body weight 95 kg Nacho Cornell LICSW.DRESSMAKER HELPER Work Phone: [facility] 09-12-2024 09:35-0400 Diastolic blood pressure 76 mm[Hg] Nacho Cornell LICSW.DRESSMAKER HELPER Work Phone: [facility] 09-12-2024 09:35-0400 Heart rate 84 /min Nacho Cornell LICSW.DRESSMAKER HELPER Work Phone: [facility] 09-12-2024 09:35-0400 Respiratory rate 16 /min Nacho Cornell LICSW.DRESSMAKER HELPER Work Phone: [facility] 09-12-2024 09:35-0400 Systolic blood pressure 110 mm[Hg] Nacho Cornell APRN.DRESSMAKER HELPER Work Phone: [facility] 09-10-2024 10:05-0400 Body height 152.[address] Sophie Huitron MD Work Phone: [facility] 09-10-2024 10:05-0400 Body mass index (BMI) [Ratio] 41.3 kg/m2 Dr. Sophie Huitron MD Work Phone: [facility] 09-10-2024 10:05-0400 Body temperature 98.2 [degF] Dr. Sophie Huitron MD Work Phone: [facility] 09-10-2024 10:05-0400 Body weight 96.[address] Sophie Huitron MD Work Phone: [facility] 09-10-2024 10:05-0400 Diastolic blood pressure 74 mm[Hg] Dr. Sophie Huitron MD Work Phone: [facility] 09-10-2024 10:05-0400 Heart rate 93 /min Dr. Sophie Huitron MD Work Phone: [facility] 09-10-2024 10:05-0400 Respiratory rate 14 /min Dr. Sophie Huitron MD Work Phone: [facility] 09-10-2024 10:05-0400 SaO2% (BldA) [Mass fraction] 97 % Dr. Sophie Huitron MD Work Phone: [facility] 09-10-2024 10:05-0400 Systolic blood pressure 110 mm[Hg] Dr. Sophie Huitron MD Work Phone: [facility] 09-02-2024 19:36-0400 Body temperature 98.2 [degF] Dr. Sophie Huitron MD Work Phone: [facility] 09-02-2024 19:36-0400 Diastolic blood pressure 67 mm[Hg] Dr. Sophie Huitron MD Work Phone: [facility] 09-02-2024 19:36-0400 Heart rate 78 /min Dr. Sophie Huitron MD Work Phone: [facility] 09-02-2024 19:36-0400 Respiratory rate 12 /min Dr. Sophie Huitron MD Work Phone: [facility] 09-02-2024 19:36-0400 SaO2% (BldA) [Mass fraction] 97 % Dr. Sophie Huitron MD Work Phone: [facility] 09-02-2024 19:36-0400 Systolic blood pressure 135 mm[Hg] Dr. Sophie Huitron MD Work Phone: [facility] 09-02-2024 13:46-0400 Body height 152.[address] Sophie Huitron MD Work Phone: [facility] 09-02-2024 13:46-0400 Body mass index (BMI) [Ratio] 39 kg/m2 Dr. Sophie Huitron MD Work Phone: [facility] 09-02-2024 13:46-0400 Body weight 90.[address] Sophie Huitron MD Work Phone: [facility] 08-13-2024 09:35-0500 Body mass index (BMI) [Ratio] 41 kg/m2 Dr. Sophie Huitron MD Work Phone: [facility] 08-13-2024 09:35-0500 Body temperature 98 [degF] Dr. Sophie Huitron MD Work Phone: [facility] 08-13-2024 09:35-0500 Body weight 95.[address] Sophie Huitron MD Work Phone: [facility] 08-13-2024 09:35-0500 Diastolic blood pressure 76 mm[Hg] Dr. Sophie Huitron MD Work Phone: [facility] 08-13-2024 09:35-0500 Heart rate 94 /min Dr. Sophie Huitron MD Work Phone: [facility] 08-13-2024 09:35-0500 Respiratory rate 17 /min Dr. Sophie Huitron MD Work Phone: [facility] 08-13-2024 09:35-0500 SaO2% (BldA) [Mass fraction] 95 % Dr. Sophie Huitron MD Work Phone: [facility] 08-13-2024 09:35-0500 Systolic blood pressure 112 mm[Hg] Dr. Sophie Huitron MD Work Phone: [facility] 07-22-2024 17:23-0500 Body temperature 97.6 [degF] Dr. Sophie Huitron MD Work Phone: [facility] 07-22-2024 17:23-0500 Diastolic blood pressure 76 mm[Hg] Dr. Sophie Huitron MD Work Phone: [facility] 07-22-2024 17:23-0500 Heart rate 82 /min Dr. Sophie Huitron MD Work Phone: [facility] 07-22-2024 17:23-0500 Respiratory rate 15 /min Dr. Sophie Huitron MD Work Phone: [facility] 07-22-2024 17:23-0500 SaO2% (BldA) [Mass fraction] 98 % Dr. Sophie Huitron MD Work Phone: [facility] 07-22-2024 17:23-0500 Systolic blood pressure 138 mm[Hg] Dr. Sophie Huitron MD Work Phone: [facility] 07-22-2024 14:07-0500 Body mass index (BMI) [Ratio] 42 kg/m2 Dr. Sophie Huitron MD Work Phone: [facility] 07-22-2024 14:07-0500 Body weight 97.[address] Sophie Huitron MD Work Phone: [facility] 06-15-2024 12:33-0500 Body temperature 98.7 [degF] Dr. Sophie Huitron MD Work Phone: [facility] 06-15-2024 12:33-0500 Diastolic blood pressure 85 mm[Hg] Dr. Sophie Huitron MD Work Phone: [facility] 06-15-2024 12:33-0500 Heart rate 76 /min Dr. Sophie Huitron MD Work Phone: [facility] 06-15-2024 12:33-0500 Respiratory rate 18 /min Dr. Sophie Huitron MD Work Phone: [facility] 06-15-2024 12:33-0500 SaO2% (BldA) [Mass fraction] 98 % Dr. Sophie Huitron MD Work Phone: [facility] 06-15-2024 12:33-0500 Systolic blood pressure 111 mm[Hg] Dr. Sophie Huitron MD Work Phone: [facility] 06-15-2024 08:58-0500 Body mass index (BMI) [Ratio] 41 kg/m2 Dr. Sophie Huitron MD Work Phone: [facility] 06-15-2024 08:58-0500 Body weight 95.[address] Sophie Huitron MD Work Phone: [facility] 05-31-2024 17:34-0500 Body mass index (BMI) [Ratio] 40.6 kg/m2 Dr. Sophie Huitron MD Work Phone: [facility] 05-31-2024 17:34-0500 Body temperature 97 [degF] Dr. Sophie Huitron MD Work Phone: [facility] 05-31-2024 17:34-0500 Body weight 94.[address] Sophie Huitron MD Work Phone: [facility] 05-31-2024 17:34-0500 Diastolic blood pressure 87 mm[Hg] Dr. Sophie Huitron MD Work Phone: [facility] 05-31-2024 17:34-0500 Heart rate 85 /min Dr. Sophie Huitron MD Work Phone: [facility] 05-31-2024 17:34-0500 Respiratory rate 18 /min Dr. Sophie Huitron MD Work Phone: [facility] 05-31-2024 17:34-0500 SaO2% (BldA) [Mass fraction] 100 % Dr. Sophie Huitron MD Work Phone: [facility] 05-31-2024 17:34-0500 Systolic blood pressure 143 mm[Hg] Dr. Sophie Huitron MD Work Phone: [facility] 08-10-2023 08:42-0500 Body weight 97.07 kg Nacho Cornell LICSW.DRESSMAKER HELPER Work Phone: [facility] 08-10-2023 08:42-0500 Diastolic blood pressure 68 mm[Hg] Nacho Cornell LICSW.DRESSMAKER HELPER Work Phone: [facility] 08-10-2023 08:42-0500 Heart rate 92 /min Nacho Cornell LICSW.DRESSMAKER HELPER Work Phone: [facility] 08-10-2023 08:42-0500 Respiratory rate 16 /min Nacho Cornell LICSW.DRESSMAKER HELPER Work Phone: [facility] 08-10-2023 08:42-0500 SaO2% (BldA) [Mass fraction] 96 % Nacho Cornell LICSW.DRESSMAKER HELPER Work Phone: [facility] 08-10-2023 08:42-0500 Systolic blood pressure 104 mm[Hg] Nacho Cornell LICSW.DRESSMAKER HELPER Work Phone: [facility] 08-05-2023 15:42-0500 Body temperature 96 [degF] [facility] 08-05-2023 15:42-0500 Diastolic blood pressure 90 mm[Hg] [facility] 08-05-2023 15:42-0500 Heart rate 81 /min [facility] 08-05-2023 15:42-0500 Respiratory rate 16 /min [facility] 08-05-2023 15:42-0500 SaO2% (BldA) [Mass fraction] 99 % [facility] 08-05-2023 15:42-0500 Systolic blood pressure 138 mm[Hg] [facility] 08-05-2023 12:05-0500 Body height 152.4 cm [facility] 08-05-2023 12:05-0500 Body mass index (BMI) [Ratio] 42 kg/m2 [facility] 08-05-2023 12:05-0500 Body weight 97.52 kg [facility] 06-02-2023 10:57-0500 Body weight 96.07 kg Alecia Fouzia LICSW.CIVIL ENGINEERING ASSISTANT Work Phone: [facility] 06-02-2023 10:57-0500 Diastolic blood pressure 78 mm[Hg] Alecia Fouzia LICSW.CIVIL ENGINEERING ASSISTANT Work Phone: [facility] 06-02-2023 10:57-0500 Heart rate 86 /min Alecia Fouzia LICSW.CIVIL ENGINEERING ASSISTANT Work Phone: [facility] 06-02-2023 10:57-0500 Respiratory rate 16 /min Alecia Fouzia LICSW.CIVIL ENGINEERING ASSISTANT Work Phone: [facility] 06-02-2023 10:57-0500 SaO2% (BldA) [Mass fraction] 100 % Alecia Fouzia LICSW.CIVIL ENGINEERING ASSISTANT Work Phone: [facility] 06-02-2023 10:57-0500 Systolic blood pressure 134 mm[Hg] Aleciamindi Fishne LICSW.CIVIL ENGINEERING ASSISTANT Work Phone: [facility] 04-25-2023 18:11-0500 Body temperature 98.2 [degF] Keyla Athy PA-C Work Phone: [facility] 04-25-2023 18:11-0500 Body weight 96.16 kg Keyla Athy PA-C Work Phone: [facility] 04-25-2023 18:11-0500 Diastolic blood pressure 76 mm[Hg] Keyla Athy PA-C Work Phone: [facility] 04-25-2023 18:11-0500 Heart rate 108 /min Keyla Athy PA-C Work Phone: [facility] 04-25-2023 18:11-0500 Respiratory rate 18 /min Keyla Athy PA-C Work Phone: [facility] 04-25-2023 18:11-0500 SaO2% (BldA) [Mass fraction] 96 % Keyla Athy PA-C Work Phone: [facility] 04-25-2023 18:11-0500 Systolic blood pressure 122 mm[Hg] Keyla Athy PA-C Work Phone: [facility] 04-06-2023 08:41-0400 Body weight 97.52 kg Nacho Cornell LICSW.DRESSMAKER HELPER Work Phone: [facility] 04-06-2023 08:41-0400 Diastolic blood pressure 75 mm[Hg] Nacho Cornell LICSW.DRESSMAKER HELPER Work Phone: [facility] 04-06-2023 08:41-0400 Heart rate 86 /min Nacho Cornell LICSW.DRESSMAKER HELPER Work Phone: [facility] 04-06-2023 08:41-0400 Respiratory rate 16 /min Nacho Cornell LICSW.DRESSMAKER HELPER Work Phone: [facility] 04-06-2023 08:41-0400 Systolic blood pressure 111 mm[Hg] Nacho Cornell LICSW.DRESSMAKER HELPER Work Phone: [facility] 01-31-2023 10:20-0400 Body weight 95.71 kg Mary Phan MD Work Phone: [facility] 01-31-2023 10:20-0400 Diastolic blood pressure 68 mm[Hg] Mary Phan MD Work Phone: [facility] 01-31-2023 10:20-0400 Systolic blood pressure 110 mm[Hg] Mary Phan MD Work Phone: [facility] 01-19-2023 10:03-0400 Diastolic blood pressure 84 mm[Hg] [facility] [facility] 01-19-2023 10:03-0400 Heart rate 78 /min [facility] 01-19-2023 10:03-0400 Respiratory rate 16 /min [facility] 01-19-2023 10:03-0400 SaO2% (BldA) [Mass fraction] 98 % [facility] 01-19-2023 10:03-0400 Systolic blood pressure 123 mm[Hg] [facility] 01-19-2023 08:02-0400 Body height 152.4 cm [facility] 01-19-2023 08:02-0400 Body mass index (BMI) [Ratio] 41 kg/m2 [facility] 01-19-2023 08:02-0400 Body temperature 97.4 [degF] [facility] 01-19-2023 08:02-0400 Body weight 95.34 kg [facility] 12-08-2022 12:06-0400 Body weight 94.35 kg Nacho Cornell LICSW.DRESSMAKER HELPER Work Phone: [facility] 12-08-2022 12:06-0400 Diastolic blood pressure 70 mm[Hg] Nacho Cornell LICSW.DRESSMAKER HELPER Work Phone: [facility] 12-08-2022 12:06-0400 Heart rate 93 /min Nacho Cornell LICSW.DRESSMAKER HELPER Work Phone: [facility] 12-08-2022 12:06-0400 Respiratory rate 16 /min Nacho Cornell LICSW.DRESSMAKER HELPER Work Phone: [facility] 12-08-2022 12:06-0400 SaO2% (BldA) [Mass fraction] 96 % Nacho Cornell LICSW.DRESSMAKER HELPER Work Phone: [facility] 12-08-2022 12:06-0400 Systolic blood pressure 118 mm[Hg] Nacho Cornell LICSW.DRESSMAKER HELPER Work Phone: [facility] 09-16-2022 10:41-0400 Body temperature 98.1 [degF] Dino Evans MD Work Phone: [facility] 09-16-2022 10:41-0400 Body weight 92.99 kg Dino Evans MD Work Phone: [facility] 09-16-2022 10:41-0400 Diastolic blood pressure 68 mm[Hg] Dino Evans MD Work Phone: [facility] 09-16-2022 10:41-0400 Heart rate 125 /min Dino Evans MD Work Phone: [facility] 09-16-2022 10:41-0400 Respiratory rate 18 /min Dino Evans MD Work Phone: [facility] 09-16-2022 10:41-0400 SaO2% (BldA) [Mass fraction] 96 % Dino Evans MD Work Phone: [facility] 09-16-2022 10:41-0400 Systolic blood pressure 110 mm[Hg] Dino Evans MD Work Phone: [facility] 01-24-2022 11:39-0400 Body weight 96.16 kg Nacho Cornell LICSW.DRESSMAKER HELPER Work Phone: [facility] 01-24-2022 11:39-0400 Diastolic blood pressure 70 mm[Hg] Nacho Cornell LICSW.DRESSMAKER HELPER Work Phone: [facility] 01-24-2022 11:39-0400 Heart rate 84 /min Nacho Cornell LICSW.DRESSMAKER HELPER Work Phone: [facility] 01-24-2022 11:39-0400 Respiratory rate 16 /min Nacho Cornell LICSW.DRESSMAKER HELPER Work Phone: [facility] 01-24-2022 11:39-0400 Systolic blood pressure 134 mm[Hg] Nacho Cornell LICSW.DRESSMAKER HELPER Work Phone: [facility] 12-27-2021 21:13-0400 Diastolic blood pressure 82 mm[Hg] [facility] Work Phone: 12-27-2021 21:13-0400 Heart rate 87 /min [facility] Work Phone: 12-27-2021 21:13-0400 Respiratory rate 16 /min [facility] Work Phone: 12-27-2021 21:13-0400 SaO2% (BldA) [Mass fraction] 95 % [facility] Work Phone: 12-27-2021 21:13-0400 Systolic blood pressure 126 mm[Hg] [facility] Work Phone: 12-27-2021 20:44-0400 Body height 152.4 cm [facility] Work Phone: 12-27-2021 20:44-0400 Body mass index (BMI) [Ratio] 41 kg/m2 [facility] Work Phone: 12-27-2021 20:44-0400 Body temperature 97.5 [degF] [facility] Work Phone: 12-27-2021 20:44-0400 Body weight 95.25 kg [facility] Work Phone: 10-01-2021 12:49-0400 Body temperature 97.81 [degF] Joel Hoover MD Work Phone: [facility] 10-01-2021 12:49-0400 Body weight 94.98 kg Joel Hoover MD Work Phone: [facility] 10-01-2021 12:49-0400 Diastolic blood pressure 80 mm[Hg] Joel Hoover MD Work Phone: [facility] 10-01-2021 12:49-0400 Heart rate 114 /min Joel Hoover MD Work Phone: [facility] 10-01-2021 12:49-0400 Respiratory rate 20 /min Joel Hoover MD Work Phone: [facility] 10-01-2021 12:49-0400 SaO2% (BldA) [Mass fraction] 99 % Joel Hoover MD Work Phone: [facility] 10-01-2021 12:49-0400 Systolic blood pressure 122 mm[Hg] Joel Hoover MD Work Phone: [facility] 08-31-2021 23:16-0400 Diastolic blood pressure 91 mm[Hg] [facility] Work Phone: 08-31-2021 23:16-0400 Heart rate 85 /min [facility] Work Phone: 08-31-2021 23:16-0400 Respiratory rate 16 /min [facility] Work Phone: 08-31-2021 23:16-0400 SaO2% (BldA) [Mass fraction] 96 % [facility] Work Phone: 08-31-2021 23:16-0400 Systolic blood pressure 137 mm[Hg] [facility] Work Phone: 08-31-2021 21:25-0400 Body mass index (BMI) [Ratio] 41.8 kg/m2 [facility] Work Phone: 08-31-2021 21:25-0400 Body temperature 96.4 [degF] [facility] Work Phone: 08-31-2021 21:25-0400 Body weight 97 kg [facility] Work Phone: Encounters Encounter Date Encounter Type Care Provider Facility Start: 12-02-2024 ambulatory Sophie Huitron Facility: [facility] Start: 11-26-2024 End: 11-26-[address] Tyrell Mo MD -[facility] Start: 11-26-2024 End: 11-26-[address] Sophie Huitron MD Work Phone: [facility] Work Phone: Start: 11-20-2024 End: 11-20-[address] Efe Moss MD -[facility] Work Phone: Start: 11-20-2024 End: 11-20-[address] Sophie Huitron MD Work Phone: [facility] Work Phone: Start: 11-12-2024 ambulatory [facility] Facility: [facility] Start: 11-12-2024 Non-patient / Non-visit Dr. Geneva strauss MD -[facility] Start: 11-12-2024 End: 11-12-[address] Sophie Huitron MD Work Phone: [facility] Work Phone: Start: 11-12-2024 End: 11-12-2024 Patient encounter procedure Jodie Hills CHIP PERSON-C -Pulmonary Services/Neurology Work Phone: Start: 11-12-2024 End: 11-12-2024 ambulatory [facility] Facility:[facility] Start: 11-08-2024 End: 11-08-2024 Emergency department patient visit Dr. Alhaji Piper DO -Emergency Department Work Phone: Start: 11-04-2024 End: 12-05-2024 ambulatory Dino Evans MD Work Phone: [facility] [place] Start: 10-11-2024 End: 10-11-[address] Sophie Huitron MD -[facility] Work Phone: Start: 10-11-2024 End: 10-11[facility] Start: 10-02-2024 End: 10-02-2024 Patient encounter procedure Jodie KIRK -[facility] Work Phone: Start: 10-02-2024 End: 10-02-2024 ambulatory Sophie Orluis Facility:[facility] Start: 09-23-2024 End: 09-23-[address] Sophie Huitron MD Work Phone: [facility] Work Phone: Start: 09-23-2024 End: 09-23-[address] Sophie Huitron MD -Outpatient Breast Imaging Work Phone: Start: 09-23-2024 End: 09-23-2024 [facility] Start: 09-14-2024 End: 09-14-[address] Sophie Huitron MD Work Phone: [facility] Work Phone: Start: 09-14-2024 End: 09-14-2024 Patient encounter procedure Jodie KIRK [facility] Work Phone: Start: 09-14-2024 End: 09-14-2024 ambulatory Jodie Hills Facility:[facility] Start: 09-12-2024 End: 09-12-2024 [facility] Start: 09-12-2024 End: 09-12-2024 Office outpatient visit 15 minutes Nacho Cornell LICSW.DRESSMAKER HELPER Work Phone: [facility] [place] Comment on above: Schizoaffective diso rder, bipolar type (HCC) (Primary Dx); Diabetic neuropathy (HCC); Screening for diabetic retinopathy; Asthma; Screening for depression; Encounter for screening examination for other mental health and behavioral disorders; Encounter for immunization; Screening for colon cancer; Acquired hypothyroidism; Controlled type 2 diabetes mellitus with diabetic neuropathy, without long-term current use of insulin (HCC); Tobacco use disorder Start: 09-10-2024 End: 09-10-[address] Efe Moss MD -[facility] Work Phone: Start: 09-10-2024 End: 09-10-2024 ambulatory [facility] Facility:[facility] Start: 09-02-2024 End: 09-02-2024 Emergency department patient visit Dr. Sophie Huitron MD Work Phone: -Emergency Department Work Phone: Start: 08-13-2024 End: 08-13-[address] Efe Moss MD -[facility] Work Phone: Start: 08-13-2024 End: 08-13-2024 ambulatory [facility] Facility:[facility] Start: 07-22-2024 End: 07-22-2024 Emergency department patient visit Dr. Patrick Manrique DO -Emergency Department Work Phone: Start: 06-21-2024 End: 06-21-[address] Efe Pryor DO -[facility] Work Phone: Start: 06-21-2024 End: 06-21-2024 ambulatory [facility] Facility:[facility] Start: 06-15-2024 End: 06-15-2024 Emergency department patient visit JULIET JORDAN [facility] Start: 06-15-2024 End: 06-15-2024 Emergency department patient visit Dr. Senait Laurent DO -Emergency Department Work Phone: Start: 06-12-2024 End: 06-17-2024 ambulatory Dino Evans MD Work Phone: Internal Medicine [place] [id number] Start: 05-31-2024 End: 05-31-2024 Emergency department patient visit Dr. Harvey Lucero MD -Emergency Department Work Phone: Start: 03-28-2024 End: 03-28-2024 Emergency department patient visit Patrick Manrique Facility:[facility] Start: 02-27-2024 End: 02-27-2024 ambulatory Ramya Terrazas NP Facility:[facility] Start: 02-27-2024 End: 02-27-2024 ambulatory [facility] Facility:[facility] Start: 01-10-2024 End: 01-10-2024 Emergency department patient visit Bubba Byers Facility:[facility] Start: 01-02-2024 End: 01-03-2024 ambulatory [facility] Facility:[facility] Start: 11-23-2023 Refill Saima Kyrie LICSW.CIVIL ENGINEERING ASSISTANT Work Phone: [facility] Comment on above: Refill Request Start: 09-25-2023 Refill Saima Kyrie LICSW.CIVIL ENGINEERING ASSISTANT Work Phone: [facility] Comment on above: Refill Request Start: 09-22-2023 End: 09-22-2023 ambulatory [facility] Work Phone: Start: 09-22-2023 End: 09-22-2023 Patient encounter procedure [facility]-Outpatient Breast Imaging Work Phone: Start: 08-27-2023 Refill Saima Kyrie LICSW.CIVIL ENGINEERING ASSISTANT Work Phone: [facility] [place] Comment on above: Refill Request Start: 08-26-2023 Refill Saima Kyrie LICSW.CIVIL ENGINEERING ASSISTANT Work Phone: [facility] [place] Comment on above: Refill Request Start: 08-15-2023 Telephone encounter Dino roldan MD Work Phone: [facility] [place] Comment on above: Medication Problem Refill Request Start: 08-10-2023 End: 08-10-2023 Office outpatient visit 25 minutes Nacho Cornell APRN.DRESSMAKER HELPER Work Phone: [facility] [place] Comment on above: Hypomagnesemia (Prim mouna Dx); Type 2 diabetes mellitus with diabetic neuropathy, with long-term current use of insulin (HCC); Controlled type 2 diabetes mellitus with diabetic neuropathy, without long-term current use of insulin (HCC); New daily persistent headache Start: 08-05-2023 End: 08-05-2023 Emergency department patient visit [facility]-Emergency Department Work Phone: Start: 08-04-2023 ambulatory Dino burrell MD Work Phone: [facility] [place] Comment on above: High Blood Sugar Start: 07-31-2023 Telephone encounter Saima casarez LICSW.CIVIL ENGINEERING ASSISTANT Work Phone: [facility] [place] Comment on above: Results Start: 07-31-2023 End: 07-31-2023 Subsequent hospital visit by physician [facility] (I-Stat/1.5t) Work Phone: Radiology Comment on above: New daily persistent headache [G44.52] Start: 07-05-2023 ambulatory Dino burrell MD Work Phone: [facility] [place] Start: 06-02-2023 End: 06-02-2023 Patient encounter procedure Alecia Fragoso LICSW.CIVIL ENGINEERING ASSISTANT Work Phone: Neurology Comment on above: JAELYN (obstructive sle ep apnea) (Primary Dx); Intolerance of continuous positive airway pressure (CPAP) ventilation; Primary insomnia Start: 05-02-2023 Telephone encounter Dino roldan MD Work Phone: [facility] [place] Comment on above: Insurance Authorizat ion Start: 04-25-2023 End: 04-25-2023 Patient encounter procedure Keyla Zamora PA-C Work Phone: [facility] Comment on above: URI, acute (Primary Dx) Start: 04-25-2023 Telephone encounter Nacho grant LICSW.DRESSMAKER HELPER Work Phone: [facility] [place] Comment on above: Results (PSG) Start: 04-10-2023 Refill Dino burrell MD Work Phone: [facility] [place] Comment on above: Refill Request Start: 04-09-2023 Refill Saima Mittal LICSW.CIVIL ENGINEERING ASSISTANT Work Phone: [facility] [place] Comment on above: Refill Request Start: 04-06-2023 End: 04-06-2023 Office outpatient visit 25 minutes Nacho Cornell LICSW.DRESSMAKER HELPER Work Phone: [facility] [place] Comment on above: JAELYN (obstructive sle ep apnea) (Primary Dx); Controlled type 2 diabetes mellitus with diabetic neuropathy, without long-term current use of insulin (HCC); Encounter for immunization Start: 03-31-2023 End: 03-31-2023 ambulatory [facility] Work Phone: Start: 03-31-2023 End: 03-31-2023 Patient encounter procedure [facility]-Sleep Lab Work Phone: Start: 03-22-2023 End: 03-22-2023 ambulatory [facility] Facility:[facility] Start: 03-21-2023 Telephone encounter Dino roldan MD Work Phone: [facility] [place] Comment on above: fax orders Start: 03-07-2023 Refill Dino burrell MD Work Phone: [facility] [place] Comment on above: Refill Request Start: 03-06-2023 Telephone encounter Dino roldan MD Work Phone: [facility] [place] Comment on above: Medication Problem Start: 03-01-2023 Telephone encounter Dino roldan MD Work Phone: [facility] [place] Comment on above: Sensor needed Start: 02-27-2023 ambulatory Dino burrell MD Work Phone: [facility] [place] Comment on above: Low Blood Sugar Start: 02-26-2023 Refill Saima Kyrie LICSW.CIVIL ENGINEERING ASSISTANT Work Phone: [facility] [place] Comment on above: Refill Request Start: 02-23-2023 Refill Saima Kyrie LICSW.CIVIL ENGINEERING ASSISTANT Work Phone: [facility] [place] Comment on above: Refill Request Start: 02-16-2023 ambulatory Dino burrell MD Work Phone: [facility] [place] Comment on above: Low Blood Sugar Start: 02-01-2023 End: 02-01-2023 Refill Dino Evans MD Work Phone: [facility] [place] Comment on above: Refill Request Start: 01-31-2023 End: 01-31-2023 Patient encounter procedure Mary Phan MD Work Phone: OB/Gynecology Comment on above: Endometrial cancer ( HCC) (Primary Dx) Start: 01-19-2023 End: 01-19-2023 Emergency department patient visit [facility]-Emergency Department Work Phone: Start: 12-28-2022 End: 12-28-2022 ambulatory [facility] Facility:[facility] Start: 12-28-2022 End: 12-28-2022 ambulatory Braxton Modi [facility] Work Phone: [facility] Comment on above: Controlled type 2 di abetes mellitus with diabetic neuropathy, without long-term current use of insulin (HCC) (Primary Dx) Start: 12-28-2022 End: 12-28-2022 Telemedicine consultation with patient Braxton Modi [facility] Work Phone: [facility] Start: 12-14-2022 End: 12-14-2022 ambulatory Braxton Modi [facility] Work Phone: [facility] Comment on above: Controlled type 2 di abetes mellitus with diabetic neuropathy, without long-term current use of insulin (HCC) (Primary Dx) Start: 12-14-2022 End: 12-14-2022 Telemedicine consultation with patient Braxton Modi [facility] Work Phone: [facility] Start: 12-12-2022 Refill Dino burrell MD Work Phone: [facility] [place] Comment on above: Refill Request Start: 12-08-2022 End: 12-08-2022 Office outpatient visit 25 minutes Nacho Amins LICSW.DRESSMAKER HELPER Work Phone: [facility] [place] Comment on above: Type 2 diabetes sonia itus with diabetic neuropathy, with long- term current use of insulin (HCC) (Primary Dx); Encounter for immunization; Acquired hypothyroidism; Endometrial adenocarcinoma (HCC); Class 3 severe obesity due to excess calories with body mass index (BMI) of 40.0 to 44.9 in adult, unspecified whether serious comorbidity present (HCC); Schizoaffective disorder, bipolar type (HCC) Start: 09-16-2022 End: 09-16-2022 Office outpatient visit 25 minutes Dino Evans MD Work Phone: [facility] [place] Comment on above: Type 2 diabetes sonia itus with diabetic neuropathy, with long- term current use of insulin (HCC) (Primary Dx); Sinusitis, maxillary, chronic; Vitamin D deficiency; Tachycardia; Hypomagnesemia; Class 3 severe obesity due to excess calories with body mass index (BMI) of 40.0 to 44.9 in adult, unspecified whether serious comorbidity present (HCC) Start: 08-30-2022 Refill Dino burrell MD Work Phone: [facility] [place] Comment on above: Refill Request Start: 07-26-2022 Telephone encounter Dino roldan MD Work Phone: [facility] [place] Comment on above: Medication Request Start: 07-05-2022 Telephone encounter Nacho grant LICSW.DRESSMAKER HELPER Work Phone: [facility] [place] Comment on above: Results Start: 04-18-2022 Telephone encounter Dino roldan MD Work Phone: [facility] [place] Comment on above: Faxed lab results Start: 02-10-2022 Telephone encounter Leon Amandeep [facility] Work Phone: Family Practice Comment on above: Appointment Start: 02-02-2022 Telephone encounter Paulina Cornell [facility] Comment on above: NEW PRIMARY CARE PHA RMACY APPT Start: 02-01-2022 Telephone encounter Nacho grant APRN.DRESSMAKER HELPER Work Phone: [facility] [place] Comment on above: Results Start: 01-24-2022 End: 01-24-2022 Patient encounter procedure Nacho Cornell APRN.DRESSMAKER HELPER Work Phone: [facility] [place] Comment on above: Screening for diabet ic retinopathy (Primary Dx); Encounter for immunization; Asthma; Screening for colon cancer; Encounter for screening for lung cancer; Controlled type 2 diabetes mellitus with diabetic neuropathy, without long-term current use of insulin (HCC); Vitamin D deficiency; Acquired hypothyroidism; Schizoaffective disorder, bipolar type (HCC); Uncomplicated asthma, unspecified asthma severity, unspecified whether persistent Start: 12-27-2021 End: 12-27-2021 [facility] Start: 12-08-2021 ambulatory Dino burrell MD Work Phone: Internal Medicine [facility] Start: 12-07-2021 Refill Dino burrell MD Work Phone: [facility] [place] Comment on above: Prescription Refills Start: 10-02-2021 Telephone encounter Keyla gaona PA-C Work Phone: [facility] Comment on above: Results Start: 10-01-2021 End: 10-01-2021 Subsequent hospital visit by physician Jojo [facility] Work Phone: Radiology Comment on above: Cough [R05.9] Start: 10-01-2021 End: 10-01-2021 Patient encounter procedure Joel Hoover MD Work Phone: [facility] Comment on above: Cough (Primary Dx); Asthma with acute exacerbation, unspecified asthma severity, unspecified whether persistent Start: 09-30-2021 Telephone encounter Dino roldan MD Work Phone: Internal [facility] Comment on above: Patient Update Start: 08-31-2021 End: 08-31-2021 [facility] Start: 08-12-2021 Telephone encounter Dino roldan MD Work Phone: Internal [facility] Comment on above: Medication Request Start: 09-01-2020 End: 09-01-2020 Subsequent hospital visit by physician Jojo [facility] Work Phone: Radiology Comment on above: Cough [R05] Start: 05-25-2017 Ambulatory Josué Ghosh [facility] Procedures Date Procedure Procedure Detail Performing Clinician Start: 11-26-2024 Plain X-ray of shoulder Dr. Sophie Huitron MD Work Phone: Start: 11-08-[address] Sophie Huitron MD Work Phone: Start: 09-23-2024 Screening mammography Janelle Huitron MD Work Phone: Start: 09-14-2024 MRI of cervical spine Janelle Huitron MD Work Phone: Start: 09-14-2024 MRI of brain without contrast Dr. Sophie Huitron MD Work Phone: Start: 09-02-2024 CT cervical spine wi thout contrast Dr. Sophie Huitron MD Work Phone: Start: 09-02-2024 CT of head without contrast Dr. Sophie Huitron MD Work Phone: Start: 06-21-2024 Plain x-ray of wrist Dr Ciarra Huitron MD Work Phone: Start: 05-31-2024 XR forearm, [address] Sophie Huitron MD Work Phone: Start: 09-22-2023 Screening mammography Start: 07-31-2023 Mri brain brain stem w/o w/contrast material Saima Mittal LICSW.CIVIL ENGINEERING ASSISTANT Work Phone: Start: 01-19-2023 Plain x-ray of elbow Start: 01-24-2022 Adult depression screening assessment Nacho Cornell LICSW.DRESSMAKER HELPER Work Phone: Start: 10-01-2021 Radiologic exam ches t 2 views Joel Hoover MD Work Phone: Start: 02-16-2021 Antibody screen Comment on above: Order Comment: Speci men Type: BLOOD SPECIMEN Performed By: #### T [id number] ####[facility] BLOOD BANKCLIA [id number] [address] [place] Start: 11-03-2020 Mammography Dino hendricks MD Work Phone: Start: 11-02-2020 Adult depression screening assessment Dino Evans MD Work Phone: Start: 09-01-2020 Radiologic exam ches t 2 views Keyla Zamora PA-C Work Phone: History of appendectomy Hx of appendectom y History of cholecystectomy History of cholecystectomy Plan of Treatment Date Care Activity Detail Author Start: 12-14-2025 HPV TESTING HPV TESTING [facility] Start: 11-03-2025 PAP TESTING PAP TESTING [facility] Start: 11-26-2024 Patient referral [facility] Work Phone: Start: 11-26-2024 Plain X-ray of shoulder Shoulder min 2 Views [facility] Start: 11-26-2024 XR Shoulder GE 2 Views [facility] Start: 11-20-2024 Patient referral [facility] Work Phone: Start: 11-08-2024 [facility] Start: 11-01-2024 End: 11-01-2024 Patient encounter procedure 11/01/2024 9:00 AM EDT Office Visit [facility] [address] [place] [address] J[place] Batista, OD [address] [place] [address] Screening for diabetic retinopathy [Z13.5] Ophthalmology Comment on above: Screening for diabetic retinopathy [Z13. 5] Start: 09-18-2024 End: 09-18-2024 Patient encounter procedure 09/18/2024 1:00 PM EDT Office Visit [facility] [address] [place] [address] Saima Mittal APRN.CIVIL ENGINEERING ASSISTANT [address] [place] [address] physical [facility] Medicine [facility] Comment on above: physical Start: 09-18-2024 End: 09-18-2024 ambulatory 09/18/2024 8:30 AM EDT Procedure PULM LAB [facility] [address] [place] [address] Wstr, Pulm Lab [facility] [address] [facility] [address] Asthma [J45.909] PULM [facility] Comment on above: Asthma [J45.909] Start: 09-12-2024 End: 12-12-2024 CBC W Auto Differential panel - Blood COMPLETE BLOOD COUNT AND DIFFERENTIAL Lab Routine Controlled type 2 diabetes mellitus with diabetic neuropathy, without long-term current use of insulin (HCC) Expected: 09/12/2024, Expires: 12/12/2024 [facility] Comment on above: Expected: 09/12/2024, Expires: Start: 09-12-2024 End: 12-12-2024 Comprehensive metabolic 2000 panel - Serum or Plasma COMPREHENSIVE METABOLIC PANEL Lab Routine Acquired hypothyroidism Controlled type 2 diabetes mellitus with diabetic neuropathy, without long-term current use of insulin (HCC) Expected: 09/12/2024, Expires: 12/12/2024 [facility] Comment on above: Expected: 09/12/2024, Expires: Start: 09-12-2024 End: 12-12-2024 Hemoglobin A1c in Blood HEMOGLOBIN A1C Lab Routine Diabetic neuropathy (HCC) Controlled type 2 diabetes mellitus with diabetic neuropathy, without long-term current use of insulin (HCC) Expected: 09/12/2024, Expires: 12/12/2024 [facility] Work Phone: Comment on above: Expected: 09/12/2024, Expires: Start: 09-12-2024 End: 12-12-2024 Lipid 1996 panel - Serum or Plasma LIPID PANEL, FASTING Lab Routine Diabetic neuropathy (HCC) Controlled type 2 diabetes mellitus with diabetic neuropathy, without long-term current use of insulin (HCC) Expected: 09/12/2024, Expires: 12/12/2024 [facility] Comment on above: Expected: 09/12/2024, Expires: Start: 09-12-2024 End: 12-12-2024 LIPID PANEL, NONFASTING LIPID PANEL, NONFASTING Lab Routine Controlled type 2 diabetes mellitus with diabetic neuropathy, without long-term current use of insulin (HCC) Expected: 09/12/2024, Expires: 12/12/2024 [facility] Comment on above: Expected: 09/12/2024, Expires: Start: 09-12-2024 End: 12-12-2024 Microalbumin/Creatinine [Mass Ratio] in Urine ALBUMIN/CREATININE RATIO, URINE Lab Routine Controlled type 2 diabetes mellitus with diabetic neuropathy, without long-term current use of insulin (HCC) Expected: 09/12/2024, Expires: 12/12/2024 [facility] Comment on above: Expected: 09/12/2024, Expires: Start: 09-12-2024 End: 12-12-2024 TSH W/REFLEX FT4 TSH W/REFLEX FT4 Lab Routine Acquired hypothyroidism Expected: 09/12/2024, Expires: 12/12/2024 [facility] Comment on above: Expected: 09/12/2024, Expires: Start: 09-10-2024 Patient referral [facility] Work Phone: Start: 09-02-2024 [facility] Start: 07-22-2024 [facility] Start: 07-05-2024 Annual PCP Team Chronic Disease Visit Annual PCP Team Chronic Disease Visit [facility] Start: 06-19-2024 Medicare Advantage Annual Wellness Visit Medicare Advantage Annual Wellness Visit [facility] Start: 06-15-2024 [facility] Start: 05-31-2024 [facility] Start: 03-15-2024 Annual PCP Team Chronic Disease Visit Annual PCP Team Chronic Disease Visit [facility] Start: 03-15-2024 Hepatitis B surface antibody level LDL Cholesterol [facility] Start: 03-15-2024 Influenza vaccination Lung Cancer Screening [facility] Comment on above: Postponed from 01/24/2023 (Declined at t his time) Start: 03-15-2024 Screening for malignant neoplasm of lung Lung Cancer Screening [facility] Comment on above: Postponed from 01/24/2023 (Declined at t his time) Start: 02-18-2024 Covid-19 Vaccine () Covid-19 Vaccine () [facility] Start: 02-18-2024 Influenza [facility] Start: 01-14-2024 Glaucoma screening Dilated Retinal Exam [facility] Start: 01-14-2024 Hepatitis C antibody, confirmatory test DILATED RETINAL EXAM [facility] Start: 01-10-2024 3 comp foot exam completed DIABETIC FOOT EXAM [facility] Start: 01-10-2024 Diabetic foot examination Diabetic Foot Exam [facility] Start: 12-09-2023 3 comp foot exam completed DIABETIC FOOT EXAM [facility] Start: 12-09-2023 COVID-19 VACCINE (4 - Booster for Moderna series) COVID-19 VACCINE (4 - Booster for Moderna series) [facility] Comment on above: Postponed from 10/19/2021 (Declined at t his time) Start: 12-09-2023 COVID-19 VACCINE (5 - Moderna series) COVID-19 VACCINE (5 - Moderna series) [facility] Comment on above: Postponed from 10/19/2021 (Declined at t his time) Start: 12-09-2023 Hepatitis B screening URINE ALBUMIN:CREATININE RATIO [facility] Start: 10-04-2023 Hemoglobin A1c measurement HbA1C [facility] Start: 09-17-2023 ANNUAL PCP TEAM CHRONIC DISEASE VISIT ANNUAL PCP TEAM CHRONIC DISEASE VISIT [facility] Start: 09-13-2023 Hemoglobin A1c measurement HbA1C [facility] Start: 09-13-2023 Hemoglobin A1c/Hemoglobin.total in Blood HbA1C [facility] Start: 08-10-2023 End: 11-09-2023 Hemoglobin A1c in Blood HGB A1C Lab Routine Type 2 diabetes mellitus with diabetic neuropathy, with long-term current use of insulin (HCC) Controlled type 2 diabetes mellitus with diabetic neuropathy, without long-term current use of insulin (HCC) Expected: 08/10/2023, Expires: 11/09/2023 [facility] Work Phone: Comment on above: Expected: 08/10/2023, Expires: Start: 07-04-2023 Hepatitis B surface antibody level LDL CHOLESTEROL [facility] Start: 06-24-2023 ANNUAL PCP TEAM CHRONIC DISEASE VISIT ANNUAL PCP TEAM CHRONIC DISEASE VISIT [facility] Start: 06-19-2023 Behavioral Health Screening Behavioral Health Screening [facility] Start: 06-19-2023 Depression Assessment Depression Assessment [facility] Start: 03-10-2023 Hemoglobin A1c/Hemoglobin.total in Blood HBA1C [facility] Start: 03-01-2023 Shingrix Vaccine (2 of 2) Shingrix Vaccine (2 of 2) [facility] Start: 02-17-2023 Covid-19 Vaccine ( season) Covid-19 Vaccine () [facility] Start: 02-17-2023 Influenza vaccination [facility] Start: 01-24-2023 Adult depression screening assessment DEPRESSION SCREENING [facility] Start: 01-24-2023 COLORECTAL CANCER SCREENING COLORECTAL CANCER SCREENING [facility] Comment on above: Postponed from 2015 (Declined at t his time) Start: 01-24-2023 Hepatitis B surface antibody level LDL CHOLESTEROL [facility] Start: 01-24-2023 Influenza vaccination LUNG CANCER SCREENING [facility] Start: 01-24-2023 Screening for malignant neoplasm of lung Lung Cancer Screening [facility] Start: 01-01-2023 Hemoglobin A1c/Hemoglobin.total in Blood HBA1C [facility] Start: 12-08-2022 End: 02-07-2023 ALBUMIN/CREAT RATIO RND UR [facility] Work Phone: Comment on above: Expected: 12/08/2022, Expires: 3 Start: 12-08-2022 End: 02-07-2023 Hemoglobin A1c in Blood [facility] Work Phone: Comment on above: Expected: 12/08/2022, Expires: 3 Start: 12-08-2022 End: 02-07-2023 Thyrotropin [Units/volume] in Serum or Plasma [facility] Work Phone: Comment on above: Expected: 12/08/2022, Expires: 3 Start: 09-16-2022 End: 11-16-2022 CBC W Auto Differential panel - Blood CBC + DIFF Lab STAT Tachycardia Expected: 09/16/2022, Expires: 11/16/2022 [facility] Work Phone: Comment on above: Expected: 09/16/2022, Expires: 3 Start: 09-16-2022 End: 11-16-2022 Comprehensive metabolic 2000 panel - Serum or Plasma COMP METABOLIC PANEL Lab STAT Type 2 diabetes mellitus with diabetic neuropathy, with long-term current use of insulin (HCC) Tachycardia Expected: 09/16/2022, Expires: 11/16/2022 [facility] Work Phone: Comment on above: Expected: 09/16/2022, Expires: 3 Start: 09-16-2022 End: 11-16-2022 Magnesium [Mass/volume] in Serum or Plasma MAGNESIUM BLD Lab Routine Tachycardia Hypomagnesemia Expected: 09/16/2022, Expires: 11/16/2022 [facility] Work Phone: Comment on above: Expected: 09/16/2022, Expires: 3 Start: 09-16-2022 End: 11-16-2022 Thyrotropin [Units/volume] in Serum or Plasma TSH BLD Lab Routine Tachycardia Expected: 09/16/2022, Expires: 11/16/2022 [facility] Work Phone: Comment on above: Expected: 09/16/2022, Expires: 3 Start: 09-16-2022 End: 11-16-2022 Thyroxine (T4) free [Mass/volume] in Serum or Plasma T4 FREE/FREE THYROX Lab Routine Tachycardia Expected: 09/16/2022, Expires: 11/16/2022 [facility] Work Phone: Comment on above: Expected: 09/16/2022, Expires: 3 Start: 09-16-2022 End: 11-16-2022 Triiodothyronine (T3) Free [Mass/volume] in Serum or Plasma T3 FREE BLD Lab Routine Tachycardia Expected: 09/16/2022, Expires: 11/16/2022 [facility] Work Phone: Comment on above: Expected: 09/16/2022, Expires: 3 Start: 06-23-2022 ANNUAL PCP TEAM CHRONIC DISEASE VISIT ANNUAL PCP TEAM CHRONIC DISEASE VISIT [facility] Start: 06-23-2022 Hepatitis B screening URINE ALBUMIN:CREATININE RATIO [facility] Start: 06-23-2022 Hepatitis B surface antibody level LDL CHOLESTEROL [facility] Start: 06-20-2022 SHINGRIX VACCINE (1 of 2) SHINGRIX VACCINE (1 of 2) [facility] Comment on above: Postponed from 2020 (Insurance Cov erage) Start: 05-06-2022 End: 07-06-2022 Hemoglobin A1c in Blood HGB A1C Lab Routine Type 2 diabetes mellitus with hyperglycemia, with long-term current use of insulin (HCC) Expected: 05/06/2022 (Approximate), Expires: 07/06/2022 [facility] Work Phone: Comment on above: Expected: 05/06/2022 (Approximate), Expi res: 07/06/2022 Start: 04-26-2022 Hemoglobin A1c/Hemoglobin.total in Blood HBA1C [facility] Start: 02-17-2022 Influenza vaccination INFLUENZA (#1) [facility] Start: 01-24-2022 End: 03-26-2022 25-hydroxyvitamin D3 [Mass/volume] in Serum or Plasma [facility] Work Phone: Comment on above: Expected: 01/24/2022, Expires: 2 Start: 01-24-2022 End: 03-26-2022 CBC W Auto Differential panel - Blood [facility] Work Phone: Comment on above: Expected: 01/24/2022, Expires: 2 Start: 01-24-2022 End: 03-26-2022 Comprehensive metabolic 2000 panel - Serum or Plasma [facility] Work Phone: Comment on above: Expected: 01/24/2022, Expires: 2 Start: 01-24-2022 End: 03-26-2022 Hemoglobin A1c in Blood [facility] Work Phone: Comment on above: Expected: 01/24/2022, Expires: 2 Start: 01-24-2022 End: 03-26-2022 Lipid 1996 panel - Serum or Plasma [facility] Work Phone: Comment on above: Expected: 01/24/2022, Expires: 2 Start: 01-24-2022 End: 03-26-2022 Thyrotropin [Units/volume] in Serum or Plasma [facility] Work Phone: Comment on above: Expected: 01/24/2022, Expires: 2 Start: 01-24-2022 Urine microalbumin profile DTAP,TDAP,TD (1 - Tdap) [facility] Comment on above: Postponed from 1989 (Insurance Cov erage) Start: 12-24-2021 COVID-19 VACCINE (4 - Booster for Moderna series) COVID-19 VACCINE (4 - Booster for Moderna series) [facility] Start: 11-03-2021 Mammography [facility] Start: 11-03-2021 Screening for malignant neoplasm of breast Mammogram Screening [facility] Start: 11-02-2021 3 comp foot exam completed DIABETIC FOOT EXAM [facility] Start: 11-02-2021 Adult depression screening assessment DEPRESSION SCREENING [facility] Start: 10-19-2021 COVID-19 VACCINE (4 - Booster for Moderna series) COVID-19 VACCINE (4 - Booster for Moderna series) [facility] Start: 10-18-2021 SHINGRIX VACCINE (1 of 2) SHINGRIX VACCINE (1 of 2) [facility] Comment on above: Postponed from 2020 (Insurance Cov erage) Start: 10-18-2021 Urine microalbumin profile DTAP,TDAP,TD (1 - Tdap) [facility] Comment on above: Postponed from 1989 (Insurance Cov erage) Start: 10-01-2021 End: 10-15-2021 SARS-CoV-2 (COVID-19) RNA [Presence] in Respiratory specimen by HARVEY with probe detection [facility] Work Phone: Comment on above: Expected: 10/01/2021, Expires: 2 Start: 09-21-2021 Hemoglobin A1c/Hemoglobin.total in Blood HBA1C [facility] Start: 04-01-2022 Hepatitis C antibody, confirmatory test DILATED RETINAL EXAM [facility] Start: 06-19-2021 DEPRESSION ASSESSMENT DEPRESSION ASSESSMENT [facility] Start: 04-06-2021 COVID-19 VACCINE (3 - Booster for Moderna series) COVID-19 VACCINE (3 - Booster for Moderna series) [facility] Start: 2020 Influenza vaccination LUNG CANCER SCREENING [facility] Start: 2020 SHINGRIX VACCINE (1 of 2) SHINGRIX VACCINE (1 of 2) [facility] Start: 2015 COLOGUARD (FIT-DNA) COLOGUARD (FIT-DNA) [facility] Start: 2015 Colonoscopy COLONOSCOPY [facility] Start: 2015 COLORECTAL CANCER SCREENING COLORECTAL CANCER SCREENING [facility] Start: [address] COLONOGRAPHY [facility] Start: 2015 FECAL OCCULT BLOOD FECAL OCCULT BLOOD [facility] Start: 2015 Screening for malignant neoplasm of colon [facility] Start: 2015 SIGMOIDOSCOPY SIGMOIDOSCOPY [facility] Start: 02-12-2013 PNEUMOCOCCAL (2 - PCV) PNEUMOCOCCAL (2 - PCV) [facility] Start: 1989 HEPATITIS B (1 of 3 - Risk 3-dose series) HEPATITIS B (1 of 3 - Risk 3-dose series) [facility] Start: 1989 Hepatitis B Vaccine (1 of 3 - 19+ 3-dose series) Hepatitis B Vaccine (1 of 3 - 19+ 3-dose series) [facility] Start: 1989 SHINGRIX VACCINE (1 of 2) SHINGRIX VACCINE (1 of 2) [facility] Start: 1989 Urine microalbumin profile [facility] Start: 1988 Anxiety Screening Anxiety Screening [facility] Start: 1988 Depression Screening Depression Screening [facility] Start: 1988 SPIROMETRY SPIROMETRY [facility] Start: 1970 HEPATITIS B (1 of 3 - 3-dose series) HEPATITIS B (1 of 3 - 3-dose series) [facility] Start: 1970 Hepatitis B Vaccine (1 of 3 - 3-dose series) Hepatitis B Vaccine (1 of 3 - 3-dose series) [facility] End: 07-12-2025 DBT Breast - bilateral screening SARKIS SCREENING W FELECIA Radiology Routine Encounter for screening mammogram for breast cancer 1 Occurrences starting 06/12/2024 until 07/12/2025 [facility] Work Phone: Comment on above: 1 Occurrences starting 06/12/2024 until 07/12/2025 End: 09-17-2023 ECG COMPLETE ECG COMPLETE ECG Routine Tachycardia 1 Occurrences starting 09/16/2022 until 09/17/2023 [facility] Work Phone: Comment on above: 1 Occurrences starting 09/16/2022 until 09/17/2023 Hepb vaccine adult 3 dose schedule for im use HEPATITIS B VACCINE, ADULT AGE 20+, IM Immunization/Injection Routine Encounter for immunization 1 Occurrences starting 01/24/2022 [facility] Work Phone: Comment on above: 1 Occurrences starting 01/24/2022 Hzv zoster vacc recombinant adjuvanted im njx ZOSTER VACCINE, RECOMBINANT (SHINGRIX) Immunization/Injection Routine Encounter for immunization 1 Occurrences starting 12/08/2022 [facility] Work Phone: Comment on above: 1 Occurrences starting 12/08/2022 End: 08-03-2024 SARKIS SCREENING SARKIS SCREENING Radiology Routine Encounter for screening mammogram for breast cancer 1 Occurrences starting 07/05/2023 until 08/03/2024 [facility] Work Phone: Comment on above: 1 Occurrences starting 07/05/2023 until 08/03/2024 MR [facility] MR Cervical spine [facility] Patient Education [facility] Work Phone: Patient referral [facility] Work Phone: PFIZER-BIONTECH COVI D-19 VACCINE (2022- SEASON) AGE 12+ YR PFIZER-BIONTECH COVID-19 VACCINE ( SEASON) AGE 12+ YR Immunization/Injection Routine Encounter for immunization 1 Occurrences starting 04/06/2023 [facility] Work Phone: Comment on above: 1 Occurrences starting 04/06/2023 PFIZER-BIONTECH COVI D-19 VACCINE, AGE 12+ YR (WAGGONER TOP) PFIZER-BIONTECH COVID-19 VACCINE, AGE 12+ YR (WAGGONER TOP) Immunization/Injection Routine Encounter for immunization Ordered: 01/24/2022 [facility] Work Phone: Comment on above: Ordered: 01/24/2022 End: 01-07-2023 Screening mammography bi 2-view breast inc cad SARKIS SCREENING Radiology Routine Encounter for screening mammogram for breast cancer 1 Occurrences starting 12/08/2021 until 01/07/2023 [facility] Work Phone: Comment on above: 1 Occurrences starting 12/08/2021 until 01/07/2023 End: 02-23-2023 SPIROMETRY - BASELINE AND POST DILATOR SPIROMETRY - BASELINE AND POST DILATOR PFT Routine Asthma 1 Occurrences starting 01/24/2022 until 02/23/2023 [facility] Work Phone: Comment on above: 1 Occurrences starting 01/24/2022 until 02/23/2023 End: 10-12-2025 SPIROMETRY - BASELINE AND POST DILATOR SPIROMETRY - BASELINE AND POST DILATOR PFT Routine Asthma Tobacco use disorder 1 Occurrences starting 09/12/2024 until 10/12/2025 [facility] Comment on above: 1 Occurrences starting 09/12/2024 until 10/12/2025 Tdap vaccine 7 yrs/> im TDAP VAC CINE, AGE 7+ YR (ADACEL, BOOSTRIX) Immunization/Injection Routine Encounter for immunization 1 Occurrences starting 12/08/2022 [facility] Work Phone: Comment on above: 1 Occurrences starting 12/08/2022 [facility] Immunizations Immunization Date Immunization Notes Care Provider Kim rashid 04-11-2024 influenza, injectabl e, quadrivalent, preservative free Dino Evans MD Work Phone: [facility] 04-06-2023 zoster vaccine recombinant Nacho Cornell LICSW.DRESSMAKER HELPER Work Phone: [facility] Work Phone: 03-15-2023 influenza, injectabl e, quadrivalent, contains preservative Dino Evans MD Work Phone: [facility] 03-15-2023 influenza, injectabl e, quadrivalent, preservative free Dr. Sophie Huitron MD Work Phone: [facility] 03-15-2023 influenza virus vaccine, unspecified formulation Xr [facility] Work Phone: [facility] 01-04-2023 zoster vaccine recombinant Dino Evans MD Work Phone: [facility] 06-24-2022 influenza, injectabl e, quadrivalent, contains preservative Nacho Cornell LICSW.DRESSMAKER HELPER Work Phone: [facility] 06-24-2022 influenza, injectabl e, quadrivalent, preservative free Dr. Sophie Huitron MD Work Phone: [facility] 06-24-2022 influenza virus vaccine, unspecified formulation Saima Mittal LICSW.CIVIL ENGINEERING ASSISTANT Work Phone: [facility] 01-24-2022 pneumococcal (PCV20) vaccine, 20 valent (PREVNAR 20) Nachoester Cornell LICSW.DRESSMAKER HELPER Work Phone: [facility] Work Phone: 01-24-2022 pneumococcal Conjuga te, unspecified formulation Nacho Amins LICSW.DRESSMAKER HELPER Work Phone: [facility] Work Phone: 08-24-2021 Covid (Pfizer) Dr. Sophie smith MD Work Phone: [facility] 03-23-2021 influenza, injectabl e, quadrivalent, preservative free Dino Evans MD Work Phone: [facility] 11-04-2020 COVID-19 vaccine, fu ll dose (MODERNA) Dino Evans MD Work Phone: [facility] 10-01-2020 COVID-19 vaccine, fu ll dose (MODERNA) Dino Evans MD Work Phone: [facility] Work Phone: 03-12-2020 Influenza, injectabl e, Madin Derwent Canine Kidney, quadrivalent with preservative Dino Evans MD Work Phone: [facility] 02-22-2019 influenza, injectabl e, quadrivalent, preservative free Dino Evans MD Work Phone: [facility] 03-15-2018 influenza, injectabl e, quadrivalent, preservative free [facility] 03-15-2018 influenza, seasonal, injectable Dino Evans MD Work Phone: [facility] 03-29-2017 influenza, injectabl e, quadrivalent, contains preservative Dino Evans MD Work Phone: [facility] 02-20-2015 influenza, seasonal, injectable Dino Evans MD Work Phone: [facility] 06-17-2014 influenza, seasonal, injectable Dino Evans MD Work Phone: [facility] 02-13-2012 pneumococcal polysaccharide vaccine, 23 valent Dino Evans MD Work Phone: [facility] Work Phone: NEGATED: Highlighted row has not occurred!01-24-2022 COVID-19 vaccine, age 12+ yr (PFIZER-BIONTRealD - WAGGONER TOP) Nacho Cornell LICSW.DRESSMAKER HELPER Work Phone: [facility] Work Phone: Comment on above: Deferred: Postponed Payers Date Payer Category Payer Self-pay 2021 Unknown [id number] 2021 Unknown [id number] 2014 Medicaid [id number] 2014 Medicare [id number] 2014 Medicare [employer] ARE [employer]ICARE [id number] 2014-Present [phone] [address] [place] [address] Medicare [id number] 2014 Medicare (Managed Care) [facility] [id number] 2014 Unknown [id number] 1970 Unknown [id number] Unknown Unknown [id number] Unknown [id number] Unknown [id number] Unknown [id number] Unknown [id number] 462 Unknown [id number] 462 Unknown [id number] Unknown [id number] Unknown [id number] 2.840.1.414681.3.579.2. 462 Unknown [id number] 2.840.1.215997.3.579.2. 462 Unknown [id number] 2.840.1.964170.3.579.2. 462 Unknown [id number] 2.840.1.680127.3.579.2. 462 Unknown [id number] 2.840.1.387023.3.579.2. 462 Unknown [id number] 2.840.1.725720.3.579.2. 462 Unknown [id number] .840.1.615570.3.579.2. 462 Unknown [id number] .840.1.639308.3.579.2. 462 Unknown [id number] 2.840.1.491066.3.579.2. 462 Unknown [id number] 840.1.266512.3.579.2. 462 Unknown [id number] .840.1.177869.3.579.2. 462 Unknown [id number] .840.1.195250.3.579.2. 462 Unknown [id number] 2.840.1.144529.3.579.2. 462 Unknown [id number] 2.840.1.043147.3.579.2. 462 Unknown [id number] 2.840.1.116281.3.579.2. 462 Unknown [id number] 2.840.1.001075.3.579.2. 462 Unknown [id number] 2.16.840.1.919431.3.579.2. 462 Unknown [id number] 2.16.840.1.493117.3.579.2. 462 Unknown [id number] 2.16.840.1.071100.3.579.2. 462 Social History Date Type Detail Facility Start: 01-24-2022 End: 09-12-2024 Tobacco smoking status NHIS Smokes tobacco daily [facility] Work Phone: Start: 04-14-2021 End: 09-12-2024 Alcohol intake Current drinker of alcohol (finding) [facility] Start: 11-03-2020 History SDOH Alcohol Comment occasionally [facility] Start: 03-05-2021 End: 01-24-2022 Tobacco Comment 1 ppd x 34 years [facility] Start: 1970 Sex Assigned At Not on file [facility] Start: 12-27-2021 End: 08-05-2023 Tobacco smoking status UTIS Unknown if ever smoked [facility] Start: 01-05-2020 None [facility] Start: 01-05-2020 With Family [facility] Start: 08-27-2020 Cigarettes [facility] Start: 1970 Sex Assigned At Female [facility] History of tobacco use Cigarette Smoker [facility] Work Phone: Start: 01-24-2022 End: 12-14-2022 Cigarettes smoked current (pack per day) - Reported 1 [facility] Work Phone: Start: 01-24-2022 End: 09-12-2024 Tobacco use and exposure Smokeless tobacco non-user [facility] Work Phone: Start: 08-02-2020 End: 01-24-2022 Exposure to SARS-CoV-2 (event) Not sure [facility] Work Phone: Start: 09-16-2022 End: 12-14-2022 Tobacco use panel [facility] Work Phone: Adult Depression Screening Assessment 0 [facility] Work Phone: Start: 09-01-2020 Alcoholic beverage intake Current non-drinker of alcohol (finding) [facility] Start: 09-02-2024 End: 09-26-2024 Sex Female (finding) [facility] Medical Equipment Procedure Code Equipment Code Equipment Original Text Equipment Identifier Dates [id number], [id number], [id number], [id number], [id number], [id number] Start: 07-05-2018 End: 03-01-2023 Comment on above: Test blood sugar(s) 1-2 times daily. Dx: e11.65, Z79.4. Insulin: yes USE ONE NEEDLE DAILY FOR DOSE OF GLARGINE Dx E11.65 Inject 1 Each subcut aneously once daily. USE ONE NEEDLE DAILY FOR DOSE OF GLARGINE Dx E11.65 Test blood sugar(s) 2 times daily. Dx: Type 2 DM - Controlled E11.9 Insulin: Yes Functional Status Date Assessment Result Facility 03-09-2021 Are you deaf, or do you have serious difficulty hearing No 03/09/2021 4:04 PM Shelly Dowell, GERALDINE No [facility] 03-09-2021 Are you blind, or do you have serious difficulty seeing, even when wearing glasses No 03/09/2021 4:04 PM Shelly Dowell, GERALDINE No [facility] 03-09-2021 Do you have serious difficulty walking or climbing stairs No 03/09/2021 4:04 PM Shelly Dowell, GERALDINE No [facility] 03-09-2021 Do you have difficul ty dressing or bathing No 03/09/2021 4:04 PM Shelly Dowell, GERALDINE No [facility] 03-09-2021 Because of a physica l, mental, or emotional condition, do you have difficulty doing errands alone such as visiting a physician's office or shopping No 03/09/2021 4:04 PM Shelly Dowell, RN No [facility] Mental Status Date Assessment Result Facility 09-02-2024 Cognitive function Level Of Cons ciousness Awake;Alert;Appropriate;Fol lows Commands [facility] Work Phone: 08-05-2023 Cognitive function Level Of Cons ciousness Awake;Alert;Appropriate [facility] Work Phone: 08-31-2021 Cognitive function Level Of Cons ciousness Awake;Alert;Appropriate;Fol lows Commands [facility] Work Phone: 03-09-2021 Because of a physica l, mental, or emotional condition, do you have serious difficulty concentrating, remembering, or making decisions No 03/09/2021 4:04 PM EDT Shelly Hankins, GERALDINE No [facility] Clinical Notes 01-23-2019 to 11-12-2024 Bonnie Velázquez - 11/04/2024 9:18 AM Nacho Mortensen APRN.DRESSMAKER HELPER - 09/12/2024 9:40 AM EDT Note Date & Type Note Facility 11-12-2024 Procedure note [facility] 11-04-2024 Note HNO ID: [id number] Author: ?, ?, ? Service: ? Author Type: ? Type: Progress Notes Filed: 12/05/2024 03:03 Note Text: Called to get pt scheduled for overdue physical and diabetes care. LVM. [facility] 11-04-2024 History of Present illness Narrative Called to get pt scheduled for overdue physical and diabetes care. LVM. documented in this encounter [facility] 11-04-2024 Note Patient Outreach (FA MPWS) JODIE CHILEL ([id number]) 1970 F Date Time Provider Department 11/04/24 DINO EVANS During your visit today, we recorded the following information about you: Bonnie Velázquez 12/05/2024 3:03 AM Signed Called to get pt scheduled for overdue physical and diabetes care. LVM. Allergies As of Date: 11/04/2024 Noted Allergy Reaction LATEX 08/01/2008 4 - Hives HYDROMORPHONE 01/04/2021 8 - GI Upset 11 - Vomiting Comments: vomit SEASONAL ALLERGIES 11/01/2010 14 - Other: See Comments Date Reviewed: 09/12/2024 Reviewed by: Yuliet Porter LPN - Fully Assessed Prescriptions as of 12/05/2024 - Alpha Lipoic Acid 600 mg cap take 1 capsule by mouth once daily - atorvastatin (LIPITOR) 10 mg tablet TAKE 1 TABLET BY MOUTH ONCE DAILY. FOR CHOLESTEROL. - dulaglutide (TRULICITY) 1.5 mg/0.5 mL pen injector INJECT 1.5 MG SUBCUTANEOUSLY ONE TIME A WEEK. - dulaglutide (TRULICITY) 0.75 mg/0.5 mL pen injector Inject 0.75 mg subcutaneously one time a week. - pregabalin (LYRICA) 150 mg capsule Take 1 capsule by mouth two times a day for 90 days. - Magnesium Oxide 500 mg tab Take 1 tablet by mouth two times a day. - topiramate (TOPAMAX) 25 mg tablet Take 1 tablet by mouth daily at bedtime. for headache - albuterol HFA (PROVENTIL HFA, VENTOLIN HFA) 90 mcg/actuation inhaler Inhale 2 Puffs as instructed every 4 hours as needed for wheezing/shortness of breath. - insulin glargine (LANTUS SOLOSTAR U-100 INSULIN) 100 unit/mL (3 mL) Inject 18 Units subcutaneously every morning. - Insulin [place], Disposable, (BD ULTRA-FINE VIK PEN NEEDLE) 32 [...] Take on empty stomach. For thyroid. - blood sugar diagnostic (BLOOD GLUCOSE TEST) [...] 03-01-23. Patient is out of sensors. - metFORMIN ER (GLUCOPHAGE XR) 500 mg 24 hr tablet Take 1 tablet by mouth twice daily before meals. - cyanocobalamin (VITAMIN B-12) 1,000 mcg tab Take 1 tablet by mouth once daily. - fluticasone (FLONASE) 50 mcg/actuation nasal spray Use 2 Sprays in each nostril daily at bedtime. - TRINTELLIX 10 mg tablet Take 1 tablet by mouth once daily. - traZODone HCl 300 mg tablet Take 1 tablet by mouth daily at bedtime. - COMPOUNDED PRESCRIPTION Diabetic Shoes--fitted with inserts for flat feet, 1 pair Diagnosis: (M21.41, M21.42) Pes planus of both feet ; (E11.40) Controlled type 2 diabetes mellitus with diabetic neuropathy, without long-term current use of insulin (HCC) - flash glucose scanning reader (FREESTYLE JALIL 14 DAY READER) misc 1 Device once daily. Problem List As Of Date 11/04/2024 Noted Resolved Schizoaffective disorder (HCC) [F25.9] 02/13/2012 [...] 02/10/2021 Sleep apnea [G47.30] Encounter Status:Closed by CHARLES NUNEZUSER on 12/05/24 [facility] 09-12-2024 History of Present illness Narrative Subjective Patient ID: Jodie is a 54 year old female who presents for Letter (Emotional support animal). HPI Presents today regarding letter for emotional support animal for her dogs. Notes she does not have time for a visit other than to get the letter today. States will come back next week for a visit and get labwork completed. She was last seen in office 07/2023. HPI excerpted from her last visit:She was seen by Saima Mittal CNP July 05, 2023 for new daily persistent headache. Abnormal EOM noted bilateral. Lab work was ordered, MRI brain ordered. Office note that day excerpted:Jodie Chilel is a 53 year old female. She [...] brain tumors. Headache worse with eye movements. Lab work showed hemoglobin A1c was increased. B12 level was high. Magnesium level is low. She was advised to follow-up with pharmacy regarding diabetes management. She was advised to decrease B12 supplement to every other day and increase magnesium oxide dose from 5 mg daily to twice daily. These measures were thought to help her headache. MRI brain without concerning findings. She called the office August 04, 2023 noting that blood sugars were increased as she was feeling weak. Reported taking metformin 500mg -3 daily. Reported unable to get Trulicity so had not been taking it for a few weeks. Noted she was treated with prednisone for asthma exacerbation. She was advised to go to ER for further evaluation and treatment as indicated and follow-up in the office. She was seen in the [facility] emergency department August 05, 2023. Review of OSH notes indicate she reported blood sugars in the 500 range. She reported polyuria polydipsia lightheadedness and nausea. Due to medication shortage she was provided with Trulicity 0.75 mg to be taken twice daily as her usual dose was not available. She was provided with a 2-week supply from [facility] pharmacy. She was advised to follow-up with PCP for future refills. Today reports fasting blood sugar 286. Reports prior intolerance of metformin 3 times daily currently taking twice daily. Reports she has resumed Trulicity 1.5 mg/week. States she has checked with her usual pharmacy and they have what she needs in stock. She notes continues with daily headache for which she is taking tkqv-fnm-qffhkfw migraine medicine with Tylenol aspirin and caffeine 4 times daily. Notes it has been effective. She was seen for JAELYN and sleep medicine. Noted declines sleep study at [facility] nap. Noted due to dental condition likely would not qualify for dental appliance. Does not meet criteria for inspire due to mild JAELYN. Stated she was interested in CBT but not scheduled. She notes persistent cough following bronchitis not helped much with benzonatate and inhaler Plan at her last visit: She notes decreased control of diabetes due to not taking Trulicity due to unavailability. Has resumed. Notes intolerance of metformin 3 tabs daily due to diarrhea so we will remain on twice daily dosing for now. Recheck A1c in 3 months and make adjustments accordingly. Recommend trial of topiramate for chronic daily headache. Increase dose of benzonatate for cough suppression. ROS: see HPI DIABETES MELLITUS:Patient's last HgA1C was Hemoglobin A1C (%) Date Value 07/05/2023 8.8 03/15/2023 7.3 06/23/2021 8.8 12/03/2020 8.8 ) HTN: Last 3 Encounter BP Readings: Date: BP: 08/10/2023 104/68 07/17/2023 118/81 07/05/2023 120/70 Hyperlipidemia. Her most recent lipid panels are: Cholesterol, Total (mg/dL) Date Value 03/15/2023 152 07/04/2022 158 06/23/2021 174 08/21/2020 137 HDL Cholesterol (mg/dL) Date Value 03/15/2023 59 07/04/2022 62 06/23/2021 59 08/21/2020 61 LDL Cholesterol (mg/dL) Date Value 03/15/2023 69 07/04/2022 64 06/23/2021 84 08/21/2020 53 Triglyceride (mg/dL) Date Value 03/15/2023 119 07/04/2022 159 06/23/2021 155 08/21/2020 115 Hypothyroidism. She is doing well on her current dose of Synthroid. TSH Date Value 07/05/2023 1.310 mIU/L 12/08/2022 1.110 mIU/L 12/03/2020 2.670 uU/mL 03/25/2020 1.870 uU/mL ) Objective BP 110/76 Pulse 84 Resp 16 Ht 151 cm (4' 11.45) Wt 95 kg (209 lb 7 oz) LMP (LMP Unknown) BMI 41.66 kg/m Physical Exam Vitals and nursing note reviewed. Constitutional: Appearance: Normal appearance. HENT: Head: Normocephalic and atraumatic. Eyes: Conjunctiva/sclera: Conjunctivae normal. Cardiovascular: Rate and Rhythm: Normal rate. Pulmonary: Effort: Pulmonary effort is normal. Abdominal: General: Abdomen is flat. Neurological: Mental Status: She is alert. Mental status is at baseline. ASSESSMENT/PLAN: 1. Schizoaffective disorder, bipolar type (HCC) - ICD9: 295.70, ICD10: F25.0 (primary diagnosis) Requests only letter today. Defers appointment for review of medical conditions to next week. Recommend labs and return to clinic next week for physical. 2. Diabetic neuropathy (HCC) - ICD9: 250.60, 357.2, ICD10: E11.40 - HEMOGLOBIN A1C - ALBUMIN/CREATININE RATIO, URINE - LIPID PANEL, FASTING 3. Screening for diabetic retinopathy - ICD9: V80.2, ICD10: Z13.5 - CONSULT TO OPHTHALMOLOGY 4. Asthma - ICD9: 493.90, ICD10: J45.909 - SPIROMETRY - BASELINE AND POST DILATOR 7. Encounter for immunization - ICD9: V03.89, ICD10: Z23 - TDAP PRINTED PHARMACY INSTRUCTIONS 9. Acquired hypothyroidism - ICD9: 244.9, ICD10: E03.9 - COMPREHENSIVE METABOLIC PANEL - TSH W/REFLEX FT4 10. Controlled type 2 diabetes mellitus with diabetic neuropathy, without long-term current use of insulin (HCC) - ICD9: 250.60, 357.2, ICD10: E11.40 - HEMOGLOBIN A1C - ALBUMIN/CREATININE RATIO, URINE - LIPID PANEL, FASTING - COMPREHENSIVE METABOLIC PANEL - COMPLETE BLOOD COUNT AND DIFFERENTIAL - ALBUMIN/CREATININE RATIO, URINE - LIPID PANEL, NONFASTING 11. Tobacco use disorder - ICD9: 305.1, ICD10: F17.200 - SPIROMETRY - BASELINE AND POST DILATOR Nacho Cornell APRN.DRESSMAKER HELPER Medical Decision Making: Problems: Low: Stable chronic illness Data: Unique test(s) ordered: 3+ Medical Decision Making Level: 3 - Low documented in this encounter [facility] 09-12-2024 Note HNO ID: [id number] Author: NACHO CORNELL APRN.DRESSMAKER HELPER Service: ? Author Type: Nurse Specialist Type: Progress Notes Filed: 09/12/2024 10:04 Note Text: Subjective Patient ID: Jodie is a 54 year old female who presents for Letter (Emotional support animal). HPI Presents today regarding letter for emotional support animal for her dogs. Notes she does not have time for a visit other than to get the letter today. States will come back next week for a visit and get labwork completed. She was last seen in office 07/2023. HPI excerpted from her last visit:She was seen by Saima Mittal CNP July 05, 2023 for new daily persistent headache. Abnormal EOM noted bilateral. Lab work was ordered, MRI brain ordered. Office note that day excerpted:Jodie Chilel is a 53 year old female. She [...] brain tumors. Headache worse with eye movements. Lab work showed hemoglobin A1c was increased. B12 level was high. Magnesium level is low. She was advised to follow-up with pharmacy regarding diabetes management. She was advised to decrease B12 supplement to every other day and increase magnesium oxide dose from 5 mg daily to twice daily. These measures were thought to help her headache. MRI brain without concerning findings. She called the office August 04, 2023 noting that blood sugars were increased as she was feeling weak. Reported taking metformin 500mg -3 daily. Reported unable to get Trulicity so had not been taking it for a few weeks. Noted she was treated with prednisone for asthma exacerbation. She was advised to go to ER for further evaluation and treatment as indicated and follow-up in the office. She was seen in the [facility] emergency department August 05, 2023. Review of OSH notes indicate she reported blood sugars in the 500 range. She reported polyuria polydipsia lightheadedness and nausea. Due to medication shortage she was provided with Trulicity 0.75 mg to be taken twice daily as her usual dose was not available. She was provided with a 2-weeksupply from [facility] pharmacy. She was advised to follow-up with PCP for future refills. Today reports fasting blood sugar 286. Reports prior intolerance of metformin 3 times daily currently taking twice daily. Reports she has resumed Trulicity 1.5 mg/week. States she has checked with her usual pharmacy and they have what she needs in stock. She notes continues with daily headache for which she is taking lnzo-otq-znamtsa migraine medicine with Tylenol aspirin and caffeine 4 times daily. Notes it has been effective. She was seen for JAELYN and sleep medicine. Noted declines sleep study at main campus/[facility] nap. Noted due to dental condition likely would not qualify for dental appliance. Does not meet criteria for inspire due to mild JAELYN. Stated she was interested in CBT but not scheduled. She notes persistent cough following bronchitis not helped much with benzonatate and inhaler Plan at her last visit: She notes decreased control of diabetes due to not taking Trulicity due to unavailability. Has resumed. Notes intolerance of metformin 3 tabs daily due to diarrhea so we will remain on twice daily dosing for now. Recheck A1c in 3 months and make adjustments accordingly. Recommend trial of topiramate for chronic daily headache. Increase dose of benzonatate for cough suppression. ROS: see HPI DIABETES MELLITUS:Patient's last HgA1C was Hemoglobin A1C (%) Date Value 07/05/2023 8.8 03/15/2023 7.3 06/23/2021 8.8 12/03/2020 8.8 ) HTN: Last 3 Encounter BP Readings: Date: BP: 08/10/2023 104/68 07/17/2023 118/81 07/05/2023 120/70 Hyperlipidemia. Her most recent lipid panels are: Cholesterol, Total (mg/dL) Date Value 03/15/2023 152 07/04/2022 158 06/23/2021 174 08/21/2020 137 HDL Cholesterol (mg/dL) Date Value 03/15/2023 59 07/04/2022 62 06/23/2021 59 08/21/2020 61 LDL Cholesterol (mg/dL) Date Value 03/15/2023 69 07/04/2022 64 06/23/2021 84 08/21/2020 53 Triglyceride (mg/dL) Date Value 03/15/2023 119 (more content not included)... [facility] 09-02-2024 Radiology Diagnostic study note [facility] Imaging Services [address] [place], [place] [id number] Spine Cervical without Contras MR#: [id number] Acct: [id number] Name: JODIE CHILEL Rep #: [id number] : 1970 F 54 From: Kelsey Church MD PCP: Dr. Sophie Huitron MD Status: REG ER Study:Spine Cervical without Contras Date of Exam: 09/02/24 Exam# [id number] Ordering Dr: Ulysses Ceballos DO PROCEDURE: SPINE CERVICAL WITHOUT CONTRAS 09/02/2024 REASON FOR EXAM: NECK PAIN TECHNIQUE: CT cervical spine was performed without IV contrast. Multiplanar reformats weregenerated. One or more dose reduction techniques were used (e.g., Automated exposure control, adjustment of the mA and/or kV according to patient size, use of iterative reconstruction technique COMPARISON: None. RADIATION DOSE SUMMARY: CTDlvol: 23.75 mGy DLP: 466.94 mGycm FINDINGS: Cervical vertebral body heights are preserved. No cervical spinal fracture or acute malalignment identified. Straightening of normal cervical lordosis may be degenerative, positional, or related to pain/muscular spasm. Trace likely degenerative anterolisthesis at C3-C4. Generalized small caliber of the spinal canal on a congenital basis. Additionallevel by level findings as below, suboptimally delineated by CT: C2-3: Disc height loss with tiny posterior disc/osteophyte complex. No significant spinal canal or foraminal stenosis evident by CT. C3-4: Disc height loss with mild bulging. No significant spinal canal or foraminal stenosis evident by CT. C4-5: Disc height loss with diffuse disc bulging and superimposed posterior central disc protrusion with inferior migration and disc/osteophyte complex, largest in the right foraminal region. At least moderate spinal canal stenosis. Mild uncovertebral arthropathy. Bony foraminal stenoses are at least mild on the left and mild/moderate on the right. C5-6: Severe loss of disc height with diffuse disc bulging and disc/osteophyte complex. Mild uncovertebral arthropathy. At least moderate focal spinal canal stenosis. Foraminal stenoses are at least moderate on the right and mild/moderate on the left. C6-7: Qzhbajvb-xh-emtrie loss of disc height with diffuse disc bulging and smalldisc/osteophyte complex. Mild uncovertebral arthropathy. At least mild/moderate focal spinal canal stenosis. No significant bony foraminal stenosis. C7-T1: Mild/moderate disc height loss. No significant spinal canal or foraminalstenosis evident by CT. CT/Spine Cervical without Contras IMPRESSION: 1. No acute cervical spinal fracture or malalignment identified. 2. Multilevel spondylosis as detailed, suboptimally delineated by CT. Spinal canal stenoses up to at least moderate at C4-C6. Bony foraminal stenoses up to at least moderate. Consider outpatient MRI as indicated. 3. Additional description as above. Reading Location: [facility] CC: Dr. Sophie Huitron MD; Dr. Ulysses Ceballos DO ~ Duck Farmer: Signed [facility] 09-02-2024 Radiology Diagnostic study note [facility] Imaging Services [address] [place] [id number] Brain/Head without Contrast MR#: [id number] Acct: [id number] Name: JODIE CHILEL Rep #: [id number] : 1970 F 54 From: Angela Sosa MD PCP: Dr. Sophie Huitron MD Status: REG ER Study:Brain/Head without Contrast Date of Exa m: 09/02/24 Exam# [id number] Ordering Dr: Ulysses Ceballos DO EXAM: CT images of the brain were acquired without intravenous contrast. Multiplanar reformats were acquired. COMPARISON: None available. FINDINGS: * ACUTE: No acute infarct or hemorrhage. No mass effect or herniation. * BRAIN PARENCHYMA: Signal intensities are within normal limits for age. * VENTRICLES/EXTRA-AXIAL SPACES: No hydrocephalus or extra-axial fluid collections. * EXTRACRANIAL STRUCTURES: Visualized osseous structures are normal. Soft tissues are normal. CT/Brain/Head without Contrast IMPRESSION: No acute intracranial findings. CLINICAL HISTORY: HEADACHE Reading Location: [facility] CC: Dr. Sophie Huitron MD; Dr. Ulysses Le, DO ~ Duck Farmer: Signed [facility] 08-13-2024 Evaluation note Diagnosis Onset Date Resolution Cervicalgia acute July 9:34am Orthostatic headache suspected 2024 9:34am Cervicalgia acute September 10 9:54am Cervicalgia acute October 02 11:23am Numbness and tingling in right hand acute October 02, 2024 11:23am Persistent headaches acute Apri l 2024 11:23am [facility] Work Phone: 1(108) 817-848402-25-2025 Evaluation note* Diagnosis Onset Date Resolution Status Admit Date Cervicalgia acute July 9:34am Orthostatic headache suspected 2024 9:34am Cervicalgia acute September 10 9:54am Cervicalgia acute October 02 11:23am Numbness and tingling in right hand acute October 02, 2024 11:23am Persistent headaches acute Apri l 2024 11:23am Right shoulder pain acute November 20, 2024 9:56am Right shoulder pain acute November 26, 2024 9:29am [place] [employer] [facility] Work Phone: 1(427) 637-829602-25-2025 Evaluation note* Diagnosis Onset Date Resolution Status Admit Date Cervicalgia acute July 9:34am Orthostatic headache suspected 2024 9:34am Cervicalgia acute September 10 9:54am Cervicalgia acute October 02 11:23am Numbness and tingling in right hand acute October 02, 2024 11:23am Persistent headaches acute Apri 2024 11:23am Right shoulder pain acute November 20, 2024 9:56am Adhesive bursitis of right shoulder acute November 26, 2024 9:29am Diabetes acute November 26 9:29am Right shoulder pain acute November 26, 2024 9:29am [place] [employer] Work Phone: 1(518) 505-373302-25-2025 Evaluation note* Diagnosis Onset Date Resolution Status Admit Date Cervicalgia acute July 9:34am Orthostatic headache suspected 2024 9:34am Cervicalgia acute March 25th, 2 025 9:54am Cervicalgia acute October 02 025 11:23am Numbness and tingling in right hand acute October 02, 2024 11:23am Persistent headaches acute 2024 11:23am Cervicalgia acute November 20 9:56am Numbness and tingling in right hand acute November 20, 2024 9 :56am Pain acute November 20, 2024 9:56am Right shoulder pain acute November 20, 2024 9:56am [facility] Work Phone: 1(132) 713-847601-03-2025 Evaluation note* Diagnosis Onset Date Resolution Status Admit Date Bilateral wrist pain acute 2024 10:17am Cervicalgia suspected July 9:34am Orthostatic headache suspected 2024 9:34am [facility] Work Phone: 1(563) 312-474101-03-2025 Evaluation note* Diagnosis Onset Date Resolution Status Admit Date Bilateral wrist pain acute 2024 10:17am Cervicalgia suspected July 9:34am Orthostatic headache suspected 2024 9:34am Cervicalgia suspected September 10 9:54am [facility] Work Phone: 1(974) 506-835012-29-2024 NoteDischarge Instructions Discharge Summary [address] [address] [id number] 06/15/2024 Patient: JODIE CHILEL Sex: Female : 1970 Age: 53y Thank you for visiting [facility]. You have been evaluated today by Juliet Tan M.D. for the following condition(s): Principal Diagnosis Acute nontraumatic pain in the right upper extremity (hand) and left upper extremity (hand). INSTRUCTIONS Apply ice. Elevate affected areas above chest level. Wear splint as needed. Understanding of the discharge instructions verbalized by patient. You have been given the following additional information: Acute Pain, Uncertain Cause Patient Signature Facility [facility] Date/Time 1 of 3 Discharge Instructions General Instructions with ExitWriter [address] [address] [id number] 06/15/2024 Patient: JODIE CHILEL Sex: Female : 1970 Age: 53y Thank you for visiting [facility]. You have been evaluated today by Juliet Tan M.D. for the following condition(s): Principal Diagnosis Acute nontraumatic pain in the right upper extremity (hand) and left upper extremity (hand). INSTRUCTIONS Apply ice. Elevate affected areas above chest level. Wear splint as needed. Understanding of the discharge instructions verbalized by patient. ADDITIONAL INFORMATION Acute Pain, Uncertain Cause Pain can be caused by many conditions that range from very minor to very serious. In some cases, though, pain comes and goes with no apparent cause. We were not able to find the exact cause for your pain. At this time there is no sign of any serious illness causing your pain. More tests may be needed to determine the cause. In many cases, pain like this goes awayby itself. Home care Take any medicines as prescribed. If another medicine was not prescribed for pain, you can take an zuct-gma-aodaqum pain medicine such as ibuprofen or acetaminophen. Use these as directed on the label. 2 of 3 Discharge Instructions Follow-up care Follow up with your healthcare provider or our staff as directed. When to seek medical advice Call your healthcare provider for any of the following: Pain changes in pattern Pain doesn't lessen or gets worse New symptoms appear Fever of 100.4F (38C) or higher, or as directed by your healthcare provider [address] [place], [place] 748[address]12-25-2024 NotePatient Outreach (INTMMN) JODIE CHILEL Darcy ([id number]) 1970 F Date Time Provider Department 06/12/24 DINO EVANS INTGUZMAN During your visit today, we recorded the following information about you: Allergies As of Date: 06/12/2024 Noted Allergy Reaction LATEX 08/01/2008 4 - Hives HYDROMORPHONE 01/04/2021 8 - GI Upset 11 - Vomiting Comments: vomit SEASONAL ALLERGIES 11/01/2010 14 - Other: See Comments Date Reviewed: 08/10/2023 Reviewed by: Yuliet Porter LPN - Fully Assessed Visit Diagnosis:Encounter for screening mammogram for breast cancer [Z12.31] Order(s):SARKIS SCREENING W FELECIA [[id number]] Order #: [id number] FUTURE Prescriptions as of 06/17/2024 - Alpha Lipoic Acid 600 mg cap take 1 capsule by mouth once daily - atorvastatin (LIPITOR) 10 mg tablet TAKE 1 TABLET BY MOUTH ONCE DAILY. FOR CHOLESTEROL. - dulaglutide (TRULICITY) 1.5 mg/0.5 mL pen injector INJECT 1.5 MG SUBCUTANEOUSLY ONE TIME A WEEK. - dulaglutide (TRULICITY) 0.75 mg/0.5 mL pen injector Inject 0.75 mg subcutaneously one time a week. - pregabalin (LYRICA) 150 mg capsule Take 1 capsule by mouth two times a day for 90 days. - Magnesium Oxide 500 mg tab Take 1 tablet by mouth two times a day. - topiramate (TOPAMAX) 25 mg tablet Take 1 tablet by mouth daily at bedtime. for headache - albuterol HFA (PROVENTIL HFA, VENTOLIN HFA) 90 mcg/actuation inhaler Inhale 2 Puffs as instructed every 4 hours as needed for wheezing/shortness of breath. - insulin glargine (LANTUS SOLOSTAR U-100 INSULIN) 100 unit/mL (3 mL) Inject 18 Units subcutaneously every morning. - Insulin [place], Disposable, (BD ULTRA-FINE VIK PEN NEEDLE) 32 [...] Take on empty stomach. For thyroid. - blood sugar diagnostic (BLOOD GLUCOSE TEST) [...] 03-01-23. Patient is out of sensors. - metFORMIN ER (GLUCOPHAGE XR) 500 mg 24 hr tablet Take 1 tablet by mouth twice daily before meals. - cyanocobalamin (VITAMIN B-12) 1,000 mcg tab Take 1 tablet by mouth once daily. - fluticasone (FLONASE) 50 mcg/actuation nasal spray Use 2 Sprays in each nostril daily at bedtime. - TRINTELLIX 10 mg tablet Take 1 tablet by mouth once daily. - traZODone HCl 300 mg tablet Take 1 tablet by mouth daily at bedtime. - COMPOUNDED PRESCRIPTION Diabetic Shoes--fitted with inserts for flat feet, 1 pair Diagnosis: (M21.41, M21.42) Pes planus of both feet ; (E11.40) Controlled type 2 diabetes mellitus with diabetic neuropathy, without long-term current use of insulin (HCC) - flash glucose scanning reader (Advise Only JALIL 14 DAY READER) misc 1 Device once daily. Problem List As Of Date 06/12/2024 Noted Resolved Schizoaffective disorder (HCC) [F25.9] 02/13/2012 [...] 02/10/2021 Sleep apnea [G47.30] Encounter Status:Closed by ENRIQUE, PRODUSER on 06/17/24[facility] 01-02-2024 [facility] Medical Records Department [address] [place] [address] History Physical Exam 01/02/24 1851 MR#: [id number] Acct: [id number] Name: JODIE CHILEL Rep #: [id number] : 1970 53 From: Luis Manuel Pate MD PCP: Dr. Sophie Huitron MD Status:REG ER Location: ED HPI - General General Date of Admission: 01/02/24 Date of Service: 01/02/24 HPI Narrative JODIE CHILEL, is a 53 F who presents to the [facility] with complaints of acute onset left-sided abdominal pain has been associated with both nausea and vomiting. She shares that she had some pain in her stomach as well as her back this morning but she notes that she usually has pain in her back. She does note that it was of a slightly different character. She shares that she took a friend to her doctor's appointment and then laid down but started with recurrence of her pain and intractable nausea and vomiting. After taking her friend home from their appointment she had to ladle puller on the side of the road to vomit and then vomited 3 times more at home. She denies any new foods or sick contacts. She also reports that she is feeling normally yesterday with a normal bowel movement and denies any experience of fevers or chills. Patient's ED workup is notable for mild leukocytosis at 11.9 and potential hemoconcentration with a hemoglobin of 15.4. CT imaging of the abdomen pelvis was obtained showing dilated small bowel loops transitioning to decompressed small bowel distally. Radiology read this as concerning for possible ileus versus developing obstruction. Patient has a past surgical history inclusive of laparoscopic cholecystectomy and laparoscopic appendectomy. She confirms both of these were uncomplicated procedures. Medically???speaking patient confirms that she has been free of her tobacco habit for which she hasa [id number]-[id number] smoking history for the last couple months. Further she denies any use of marijuana. PFSH Medical History Endometrial polyp Wears glasses Depression Anxiety Alcohol use Arthritis High cholesterol Injury of back Migraine headache Smoker CPAP (continuous positive airway pressure) dependence Sleep apnea History of stress test Hypertension Diabetes mellitus type 2 in obese Hypothyroidism Bipolar disorder Asthma Home Medications ???Medication ???Instructions ???Recorded ???Last Taken ???Type atorvastatin 10 mg tablet 10 mg PO QHS cholesterol lowering 02/27/16 09/04/18 11:00 History levothyroxine 25 mcg tablet 25 mcg PO DAILY thyroid 02/27/16 01/28/21 08:00 History albuterol sulfate 90 mcg/actuation 2 puff inhalation Q4H PRN PRN 03/23/18 08/29/18 15:00 History aerosol inhaler (ProAir HFA) shortness of breath metformin 1,000 mg tablet 1,000 mg PO BID blood sugar 03/23/18 09/04/18 22:00 History insulin glargine 100 unit/mL (3 14 unit SQ BREAKFAST 05/10/19 Unknown History mL) subcutaneous pen lamotrigine 25 mg tablet (Lamictal) 150 mg PO DAILY 05/10/19 01/28/21 08:00 History alpha lipoic acid 600 mg capsule 600 mg PO DAILY 01/21/21 Unknown History buspirone 10 mg tablet 10 mg PO BID 01/21/21 Unknown History carbamazepine 300 mg 600 mg PO QHS 01/21/21 Unknown History capsule,extended release [id number] ipratropium bromide 17 1 inh inhalation DAILY 01/21/21 Unknown History mcg/actuation HFA aerosol inhaler (Atrovent HFA) trazodone 300 mg tablet 300 mg PO QHS 01/21/21 Unknown History vitamin B12 1 mg-folic acid 0.8 mg 1 tab PO DAILY 01/21/21 Unknown History tablet cyclobenzaprine 10 mg tablet 10 mg PO TID PRN Muscle Spasm #20 06/15/21 Unknown Rx TABLETS dulaglutide 0.75 mg/0.5 mL 1.5 mg subcut QWEEK #2 mL 08/05/23 Unknown Rx subcutaneous pen injector (Trulicity) Allergy/AdvReac Type Severity Reaction Status Date / Time latex Allergy Hives Verified 01/02/24 15:00 hydromorphone (From Dilaudid) AdvReac Vomiting Verified 01/02/24 15:00 Surgical History History of back surgery Previous back surgery Hx of appendectomy History of cholecystectomy Social History Smoking Status: Current every day smoker tobacco type: e-cigarettes substance use type: does not use ROS Constitutional Constitutional: Denies weight loss Gastrointestinal Gastrointestinal: Reports abdominal pain, nausea and vomiting; Denies constipation Genitourinary Genitourinary: Denies dysuria Musculoskeletal Musculoskeletal: Reports back pain Vital Signs Vital Signs Vital Signs: 01/02/24 15:00 01/02/24 17:00 Temperature 96.8 F L Temperature Source Temporal Pulse Rate 124 H 82 Respiratory Rate 20 H 18 Blood Pressure 132/95 H 138/9 (more content not included)...[facility]03-11-2024 Miscellaneous Notes* Telephone Encounter - Dino Evans MD - 08/28/2023 7:16 PM EDT Okayed * Telephone Encounter - Christine Mendoza LPN - 08/28/2023 4:34 PM EDT Patient has been identified by name and date of : Yes Patient phones for refill(s): Requested Prescriptions Pending Prescriptions Disp Refills atorvastatin (LIPITOR) 10 mg tablet [Pharmacy Med Name: ATORVASTATIN 10 MG TABLET] 90 tablet 0 Sig: TAKE 1 TABLET BY MOUTH ONCE DAILY. FOR CHOLESTEROL. Date of last office visit in primary care: 08/10/2023 Date of next office visit in primary care: 08/28/2023 Please advise. Thank you. Christine Mendoza LPN. documented in this encounterThe [facility]03-[facility] Miscellaneous Notes* Telephone Encounter - Sheyla Alex LPN - 08/28/2023 10:53 AM EDT Patient has been identified by name and date of : No Patient phones for refill(s): Requested Prescriptions Pending Prescriptions Disp Refills Alpha Lipoic Acid 600 mg cap [Pharmacy Med Name: ALPHA LIPOIC ACID 600 MG CAP] 30 capsule 11 Sig: take 1 capsule by mouth once daily Date of last office visit in primary care: 08/10/23 Date of next office visit in primary care: 10/10/23 Please advise. Thank you. Sheyla Alex LPN. documented in this encounterThe [facility]02-27-2024 Miscellaneous Notes* Telephone Encounter - Sheyla Alex LPN - 08/15/2023 6:46 PM EST The following approved medication requests have been transmitted electronically. Requested Prescriptions Signed Prescriptions Disp Refills dulaglutide (TRULICITY) 0.75 mg/0.5 mL pen injector 2 mL 5 Sig: Inject 0.75 mg subcutaneously one time a week. Authorizing Provider: DINO EVANS LPN * Telephone Encounter - Dino Evans MD - 08/15/2023 5:20 PM EST The following approved medication requests have been transmitted electronically. Requested Prescriptions Signed Prescriptions Disp Refills dulaglutide (TRULICITY) 0.75 mg/0.5 mL pen injector 2 mL 5 Sig: Inject 0.75 mg subcutaneously one time a week. Authorizing Provider: DINO EVANS MD Below noted * Telephone Encounter - Zuri Nichole RN - 08/15/2023 5:08 PM EST Patrick from [facility] pharmacy is calling due to the received rx for trulicity 0.75mg with instructions totake 1.5mL. This can not be done per manufacture. They can fill the rx to take 0.75mg until the 1.5mg comes back in stock if wanted. If so a new rx will need sent to [facility] pharmacy with new instructions. please review and advise documented in this encounterThe [facility]02-27-2024 Miscellaneous Notes* Telephone Encounter - Dino Evans MD - 08/15/2023 4:30 PM EST The following approved medication requests have been transmitted electronically. Requested Prescriptions Signed Prescriptions Disp Refills dulaglutide (TRULICITY) 0.75 mg/0.5 mL pen injector 12 mL 1 Sig: Inject 1.5 mg subcutaneously one time a week. Authorizing Provider: DINO EVANS MD * Telephone Encounter - Sandra France RN - 08/15/2023 12:55 PM EST Patient calling and asking if prescription can be sent to [facility]. Please review and advise, Sandra France RN documented in this encounterThe [facility]02-22-2024 Instructions* Patient Instructions* Nacho Cornell APRN.CNS - 08/10/2023 9:11 AM EST Continue with inhaler for cough. Try benzonatate at higher dose, new prescription has been sent. Take Trulicity 1.5 mg once weekly. Try topiramate 25 mg daily for daily headache. documented in this encounterThe [facility]02-22-2024 History of Present illness Narrative* Nacho Cornell APRN.CNS - 08/10/2023 8:40 AM EST SUBJECTIVE: Hepatitis B Vaccine(1 of 3 - 3-dose series) Never done Spirometry Never done DTaP,Tdap,Td Vaccine(1 - Tdap) Never done Colorectal Cancer Screening Never done Mammogram Screening due on 11/03/2021 Covid-19 Vaccine(2022- season) due on 02/17/2023 Depression Assessment due on 06/19/2023 HPI Jodie Chilel is a 53 year old female. PMH signficiant for ACTIVE [...] Disorder Asthma Endometrial Adenocarcinoma (Hcc) Sleep Apnea She was seen by Saima Mittal CNP July 05, 2023 for new daily persistent headache. Abnormal EOM noted bilateral. Lab work was ordered, MRI brain ordered. Office note that day excerpted:Jodie Chilel is a 53 year old female. She is here today due to concerns of new daily persistent headaches. Onset was about 6 months ago or longer, headache occurs every day, wakes up with the headache. Not better or worse with being awake. Headache to her whole head, generalized, not localized. Constant, noalleviating or aggravating factors. Feels kind of foggy. [...] brain tumors. Headache worse with eye movements. Lab work showed hemoglobin A1c was increased. B12 level was high. Magnesium level is low. She was advised to follow-up with pharmacy regarding diabetes management. She was advised to decrease B12 supplement to every other day and increase magnesium oxide dose from 5 mg daily to twice daily. These measures were thought to help her headache. MRI brain without concerning findings. She called the office August 04, 2023 noting that blood sugars were increased as she was feeling weak. Reported taking metformin 500mg -3 daily. Reported unable to get Trulicity so had not been taking it for a few weeks. Noted she was treated with prednisone for asthma exacerbation. She was advised to go to ER for further evaluation and treatment as indicated and follow-up in the office. She was seen in the [facility] emergency department August 05, 2023. Review of OSH notesindicate she reported blood sugars in the 500 range. She reported polyuria polydipsia lightheadedness and nausea. Due to medication shortage she was provided with Trulicity 0.75 mg to be taken twice daily as her usual dose was not available. She was provided with a 2-week supply from [facility] pharmacy. She was advised to follow-up with PCP for future refills. Today reports fasting blood sugar 286. Reports prior intolerance of metformin 3 times daily currently taking twice daily. Reports she has resumed Trulicity 1.5 mg/week. States she has checked with her usual pharmacy and they have what she needs in stock. She notes continues with daily headache for which she is taking [id number]-uos-hcpjfgz migraine medicine with Tylenol aspirin and caffeine 4 times daily. Notes it has been effective. She was seen for JAELYN and sleep medicine. Noted declines sleep study at [facility]. Noted due to dental condition likely would not qualify for dental appliance. Does not meet criteria for inspire due to mild JAELYN. Stated she was interested in CBT but not scheduled. She notes persistent cough following bronchitis not helped much with benzonatate and inhaler. DIABETES MELLITUS: Without report of polydipsia polyuria or weakness today. Patient's last HgA1C was Hemoglobin A1C (%) Date Value 07/05/2023 8.8 03/15/2023 7.3 06/23/2021 8.8 12/03/2020 8.8 ) Last 14 Encounter BP Readings: Date: BP: 08/10/2023 104/68 07/17/2023 118/81 07/05/2023 120/70 06/02/2023 134/78 04/25/2023 122/76 04/06/2023 111/75 03/15/2023 100/69 01/31/2023 110/68 01/09/2023 118/68 12/08/2022 118/70 09/16/2022 110/68 08/02/2022 104/60 06/24/2022 122/82 01/24/2022 134/70 Hyperlipidemia. Ms. Chilel reports doing well on current therapy. Her [...] is stable on levothyroxine. TSH Date Value 07/05/2023 1.310 mIU/L 12/08/2022 1.110 mIU/L 12/03/2020 2.670 uU/mL 03/25/2020 1.870 uU/mL ) Review of Systems Respiratory: Positive for cough. Neurological: Positive for headaches. Psychiatric/Behavioral: Positive for sleep disturbance. Objective BP 104/68 Pulse 92 Resp 16 Wt 97.1 kg (214 lb) LMP (LMP Unknown) SpO2 96% BMI 41.79 kg/m Physical Exam Vitals and nursing note reviewed. Constitutional: Appearance: Normal appearance. HENT: Head: Normocephalic and atraumatic. Eyes: Conjunctiva/sclera: Conjunctivae normal. Neck: Thyroid: No thyromegaly. Vascular: Normal carotid pulses. No JVD. Cardiovascular: Rate and Rhythm: Normal rate and regular rhythm. Pulses: Carotid pulses are 2+ on the [...] Allergies Other: See Comments Medications dulaglutide (TRULICITY) 0.75 mg/0.5 mL pen injector Inject 1.5 mg subcutaneously one time a week. albuterol HFA (PROVENTIL HFA, VENTOLIN HFA) 90 mcg/actuation inhaler Inhale 2 Puffs as instructed every 4 hours as needed for wheezing/shortness of breath. insulin glargine (LANTUS SOLOSTAR U-100 INSULIN) 100 unit/mL (3 mL) Inject 18 Units subcutaneously every morning. Insulin [place], Disposable, (BD ULTRA-FINE VIK PEN NEEDLE) 32 [...] daily. Take on empty stomach. For thyroid. blood sugar diagnostic (BLOOD GLUCOSE TEST) test [...] neuropathy, without long-term current use of insulin ([facility]) flash glucose scanning reader (FREESTYLE JALIL 14 DAY READER) misc 1 Device once daily. dulaglutide (TRULICITY) 0.75 mg/0.5 mL pen injector Inject 1.5 mg subcutaneously one time a week. pregabalin (LYRICA) 150 mg capsule Take 1 capsule by mouth two times a day for 90 days. Magnesium Oxide 500 mg tab Take 1 tablet by mouth two times a day. topiramate (TOPAMAX) 25 mg tablet Take 1 tablet by mouth daily at bedtime. for headache Benzonatate 200 mg capsule Take 1 capsule by mouth three times a day as needed for cough. dulaglutide (TRULICITY) 1.5 mg/0.5 mL pen injector Inject 1.5 mg subcutaneously one time a week. PAST MEDICAL HISTORY Diagnosis Date Adjustment disorder with depressed mood Anxiety disorder in conditions classified elsewhere Asthma 03/31/2019 mild well controlled Degenerative disc disease, lumbar Diabetes mellitus type II Diabetic neuropathy ([facility]) 12/11/2017 feet only Endometrial cancer ([facility]) Fibromyalgia Hypothyroidism Insomnia, unspecified Lazy eye since Menopause Morbid obesity with BMI of 45.0-49.9, adult ([facility]) 03/29/2017 Schizoaffective disorder, bipolar type ([facility]) 04/14/2015 states no longer Sleep apnea CPAP [...] 31.0 - 80.0 ng/mL 40.6 ASSESSMENT/PLAN: 1. Hypomagnesemia - ICD9: 275.2, ICD10: E83.42 (primary diagnosis) - MAGNESIUM OXIDE 500 MG TABLET 2. Type 2 diabetes mellitus with diabetic neuropathy, with long-term current use of insulin ([facility]) -ICD9: 250.60, 357.2, V58.67, ICD10: E11.40, Z79.4 - DULAGLUTIDE 0.75 MG/0.5 ML SUBCUTANEOUS PEN INJECTOR - PREGABALIN 150 MG CAPSULE - HGB A1C 3. Controlled type 2 diabetes mellitus with diabetic neuropathy, without long- term current use of insulin ([facility]) - ICD9: 250.60, 357.2, ICD10: E11.40 - DULAGLUTIDE 0.75 MG/0.5 ML SUBCUTANEOUS PEN INJECTOR - PREGABALIN 150 MG CAPSULE - HGB A1C 4. New daily persistent headache - ICD9: 339.42, ICD10: G44.52 - TOPIRAMATE 25 MG TABLET She notes decreased control of diabetes due to not taking Trulicity due to unavailability. Has resumed. Notes intolerance of metformin 3 tabs daily due to diarrhea so we will remain on twice daily dosing for now. Recheck A1c in 3 months and make adjustments accordingly. Recommend trial of topiramate for chronic daily headache. Increase dose of benzonatate for cough suppression. Nacho Cornell APRN.CNS Medical Decision Making: Problems: Moderate: 1+ chronic illnesses with change and 2+ stable chronic illnesses Data: Unique source(s) for external note(s) reviewed: 1 Unique test result(s) reviewed: 3+ Risk: Moderate: Drug management Medical Decision Making Level: 4 - Moderate documented in this encounterThe [facility]02-19-2024 Miscellaneous Notes* Telephone Encounter - Saima Mittal APRN.CNP - 08/07/2023 7:35 AM EST Appointment with me for tomorrow. * Telephone Encounter - Dino Evans MD - 08/04/2023 7:11 PM EST Patient was given prednisone 07/17 for asthma exacerbation plus not taking Trulicity. Needs follow up in office--make sure gets scheduled within a week or so after seen in ER/Hospital (if gets admitted). No ER notes on Epic yet. * Telephone Encounter - Mone Wiggins RN - 08/04/2023 2:24 PM EST Patient advised 911/ER now. Agreeable. States has (friend/family) transport to ER. Reason for Disposition Very weak (e.g., can't stand) Answer Assessment - Initial Assessment Questions Patient calling and states her blood sugar has been in the 400's today. She not feeling well and having symptoms of hyperglycemia, as documented below. Pt alert on phone, clear speech and answering questions appropriately. Reports she has been taking Metformin 500 mg three times a day. Reports has not been able to get trulicity for a few weeks so she has not been taking it. 1. BLOOD GLUCOSE: this [id number], at 1:30pm alblq=[id number] 2. ONSET:last check=1:30pm 3. USUAL RANGE: (been high for a few weeks due to not having trulicity) 4. KETONES:not checked 5. TYPE 1 or 2: 2 6. INSULIN: Trulicity has been ordered but unable to get it from any pharmacies 7. DIABETES PILLS: Metformin 500mg taking 3 pills per day 8. OTHER SYMPTOMS: -feels weak *able to stand -has dizziness -excessive thirst -frequent urination -yesterday room was spinning Protocols used: Diabetes - High Blood [id number] documented in this encounterThe University Of [facility]02-17-2024 Discharge summary Author Sukumar Stanton [facility] August 05, 2023 3:33pm Note Date/Time August 05, 2023 12:48pm [facility] Medical Records Department [address] [place] [address] Emergency Department Summary 08/05/23 MR#: [id number] Acct: [id number] Name: JODIE CHILEL Rep #:[id number] : 1970 53 From: Sukumar Stanton DO PCP: Dr. Dino Evans MD Status:RE ER Location: ED HPI History of Present Illness Chief Complaint: Hyperglycemia Narrative Narrative: 53-year-old female presenting with hyperglycemia. She states her blood sugars have been in the 500 range. Patient states that she has not been on her Trulicity for about 3 weeks. She states it is on backorder. 1.5 units daily. Patient is also on metformin and is supposed take at 1000 mg twice daily. She states that when she called her primary care's office to have a medication change she was told to take an extra metformin since she cannot refill her Trulicity. Patient is also on Lantus 14 units in the morning. Patient states she does have symptoms of polyuria and polydipsia. She feels lightheaded. She is nausea at times. No history of DKA. [facility] Medical History Alcohol use Anxiety Arthritis Asthma Bipolar disorder CPAP (continuous positive airway pressure) dependence Depression Diabetes mellitus type 2 in obese Endometrial polyp High cholesterol History of stress test Hypertension Hypothyroidism Injury of back Migraine headache Sleep apnea Smoker Wears glasses Home Medications atorvastatin 10 mg tablet 10 mg PO QHS cholesterol lowering 02/27/16 [History Last Taken 09/04/18 11:00] levothyroxine 25 mcg tablet 25 mcg PO DAILY thyroid 02/27/16 [History Last Taken 01/28/21 08:00] albuterol sulfate 90 mcg/actuation aerosol inhaler (ProAir HFA) 2 puff inhalation Q4H PRN PRN shortness of breath 03/23/18 [History Last Taken 08/29/18 15:00] metformin 1,000 mg tablet 1,000 mg PO BID blood sugar 03/23/18 [History Last Taken 09/04/18 22:00] insulin glargine 100 unit/mL (3 mL) subcutaneous pen 14 unit SQ BREAKFAST 05/10/19 [History Last Taken Unknown] lamotrigine 25 mg tablet (Lamictal) 150 mg PO DAILY 05/10/19 [History Last Taken 01/28/21 08:00] alpha lipoic acid 600 mg capsule 600 mg PO DAILY 01/21/21 [History Last Taken Unknown] buspirone 10 mg tablet 10 mg PO BID 01/21/21 [History Last Taken Unknown] carbamazepine 300 mg capsule,extended release [id number] 600 mg PO QHS 01/21/21 [History Last Taken Unknown] ipratropium bromide 17 mcg/actuation HFA aerosol inhaler (Atrovent HFA) 1 inh inhalation DAILY 01/21/21 [History Last Taken Unknown] trazodone 300 mg tablet 300 mg PO QHS 01/21/21 [History Last Taken Unknown] vitamin B12 1 mg-folic acid 0.8 mg tablet 1 tab PO DAILY 01/21/21 [History Last Taken Unknown] cyclobenzaprine 10 mg tablet 10 mg PO TID PRN Muscle Spasm #20 TABLETS 06/15/21 [Rx Last Taken Unknown] dulaglutide 0.75 mg/0.5 mL subcutaneous pen injector (Trulicity) 1.5 mg subcut QWEEK #2 mL 08/05/23 [Rx Last Taken Unknown] Allergy/AdvReac Type Severity Reaction Status Date / Time latex Allergy Hives Verified 08/05/23 12:04 hydromorphone [From Dilaudid] AdvReac Vomiting Verified 08/05/23 12:04 Surgical History History of back surgery History of cholecystectomy Hx of appendectomy Previous back surgery Social History Smoking Status: Current every day smoker tobacco type: cigarettes substance use type: does not use ROS ROS ED ROS Narrative Dizziness Constitutional Constitutional ED: Denies chills, fever(s) or sweats Eyes Eyes: Denies blurry vision or change in vision ENT ENT ED: Denies ear pain or sore throat Cardiovascular Cardiovascular: Denies chest pain, palpitations or racing heartbeat Respiratory/Chest Respiratory/Chest: Denies cough, dyspnea or sputum Gastrointestinal Gastrointestinal: Reports nausea; Denies abdominal pain, constipation, diarrhea or vomiting Genitourinary Genitourinary ED: Denies dysuria, hematuria or urinary frequency Musculoskeletal Musculoskeletal: Denies arthralgias, myalgias or neck pain Integumentary Denies abscess, Abrasions or rash Neurologic Neurologic: Reports headache(s); Denies paresthesias or weakness Psychiatric Psychiatric: Denies anxiety, depression, suicidal ideation or suicidal thoughts Endocrine Endocrinology: Reports polydipsia, polyphagia and polyuria EXAM Physical Exam Const Vital Signs: 08/05/23 12:05 08/05/23 15:24 Temperature 96.0 F L Temperature Source Temporal Pulse Rate 124 H 81 Respiratory Rate 18 16 Blood Pressure 143/89 H 138/90 H Blood Pressure Mean 107 106 Pulse Ox 100 99 Oxygen Delivery Method Room Air Room Air Positive well nourished and obese General Appearance ED: Negative for pallor Nutritional Appearance: obese HEENT Reports moist mucous membranes Eyes PERRL and EOMs intact bilaterally Resp normal respiratory effort Cardio regular rate and regular rhythm GI normal to inspection, nondistended, normoactive bowel sounds Neuro oriented x3 and CN's II-XII intact bilaterally Sensorium / Orientation: alert Psych mental status grossly normal Skin no rashes or lesions noted General Skin Exam: Negative for jaundice or pallor MDM MDM MDM Narrative Medical decision making narrative: Patient presenting with high blood sugars at home. Differential includes hyperglycemia, ACS, dysrhythmia, DKA, dehydration, anemia, electrolyte abnormalities, UTI. Patient reports that she has not been able to get her medications filled. We are able to call pharmacy and apparently there is a backlog on Trulicity 1.5 mg weekly. Patient unable to get this for the last 3 weeks. She states when she calls the office she is unable to get them to write a prescription because it was a short backlog. Nursing was able to establish that he can get 0.75 mg and 83 mg injection. CBC, CMP within normal limits withexception of a high blood sugar of 5. No anion gap. Analysis negative for infection but does show does 1000 glucose. Acetone negative. Discussed the case with Dr. Raphael Mayer who recommended either giving her the 0.75 mg and haveher injecting twice or given her 3 mg. After discussing this with the pharmacy here at [facility] we are unable to adjust the 3 mg injection and this would be too much. The only option at this point is to give the 0.75 mg and give her 2 of these. After discussion we will have the prescription sent to thepharmacy. I spoke with the pharmacist who stated that her insurance covers the treatment at 0.75 mg and she can take 2 of these. She is able to prescribe a 2-week supply. I counseled the patient of this. Patient will need to follow-up with her PCP to ensure prescription refill. She is feeling improved. All questions were answered. Range of motion Impression: 1. Hyperglycemia Lab Data Attestation: I reviewed the patient's lab results. Labs: Laboratory Results - last 24 hr 08/05/23 08/05/23 08/05/23 12:16 12:23 12:38 WBC 6.7 RBC 4.87 Hgb 14.1 Hct 43.3 MCV 88.9 MCH 29.0 MCHC 32.6 RDW Std Deviation 45.2 H RDW Coeff of Lore 13.9 Plt Count 183 MPV 11.2 Immature Gran % (Auto) 0.600 Neut % (Auto) 58.1 Lymph % (Auto) 31.6 [place] % (Auto) 7.6 Eos % (Auto) 1.5 Baso % (Auto) 0.6 Absolute Neuts (auto) 3.9 Absolute Lymphs (auto) 2.11 Nucleated RBC % 0 Sodium 138 Potassium 3.9 Chloride 104 Carbon Dioxide 28.0 Anion Gap 6 BUN 10 Creatinine 0.92 Estim Creat Clear Calc 74.03 Est GFR (MDRD) Af Amer 82 Est GFR (MDRD) Non-Af 68 BUN/Creatinine Ratio 10.8 Glucose 501 H* Calcium 8.6 Total Bilirubin 0.50 AST 35 ALT 40 Alkaline Phosphatase 95 Troponin I High Sens 7 Total Protein 6.9 Albumin 3.2 Globulin 3.7 Albumin/Globulin Ratio 0.9 Urine Color Yellow Urine Clarity Clear Urine pH 6.0 Ur Specific [place] 1.015 Urine Protein 15 H Urine Glucose (UA) 1000 H Urine Ketones 5 H Urine Occult Blood Negative Urine Nitrite Negative Urine Bilirubin Negative Urine Urobilinogen Normal Ur Leukocyte Esterase Negative Urine RBC 0 SEEN Urine WBC 0 SEEN Ur Squamous Epith Cells 0 SEEN Urine Bacteria 0 SEEN Urine Mucus 0 SEEN Acetone Level NEGATIVE POC Glucose 498 H* Discharge Plan Triage Chief Complaint: Hyperglycemia ED Provider: Sukumar Stanton Dx/Rx/DC Orders Instructions: ED Diabetic Hyperglycemia Prescriptions: New Trulicity 0.75 mg/0.5 mL pen injector 1.5 mg subcut QWEEK Qty: 2 0RF No Action atorvastatin 10 MG tablet 10 mg PO QHS levothyroxine 25 MCG tablet 25 mcg PO DAILY metformin 1,000 MG tablet 1,000 mg PO BID albuterol sulfate [ProAir HFA] 1 PUFF inhaler 2 puff inhalation Q4H PRN PRN (Reason: shortness of breath) lamotrigine [Lamictal] 25 MG tablet 150 mg PO DAILY Patient Comments: TAKE 1 TABLET BY MOUTH EVERY DAY X2WKS THEN INCREASE TO 2TABS DAILY THEREAFTER insulin glargine 100 UNIT/ML insulin pen 14 unit SQ BREAKFAST buspirone 10 mg tablet 10 mg PO BID Patient Comments: TAKE 1 TABLET BY MOUTH TWICE A DAY trazodone 300 mg tablet 300 mg PO QHS Patient Comments: TAKE 1 TABLET BY MOUTH EVERY DAY AT BEDTIME NEEDED vitamin [id number] 1-0.8 mg Tablet 1 tab PO DAILY carbamazepine 300 mg Capsule, Er Multiphase 12 Hr 600 mg PO QHS Atrovent HFA 17 mcg/actuation Hfa Aerosol Inhaler 1 inh INHALATION DAILY alpha lipoic acid 600 mg capsule 600 mg PO DAILY Patient Comments: TAKE 1 CAPSULE BY MOUTH EVERY DAY cyclobenzaprine [cyclobenzaprine] 10 MG tablet 10 mg PO TID PRN (Reason: Muscle Spasm) Qty: 20 0RF Primary Care Provider: Dino Evans Referrals: Dino Evans MD [Primary Care Provider] - Disposition Disposition: Home, Self Care What to do if you have Problems For any increased pain, shortness of breath, bleeding, nausea or vomiting, chestpain, or any unexpected problems, contact your Primary Care Provider. Call [facility] ([phone]) or report to the closest Emergency Room. Call 911 if necessary. 08/05/23 1533 <Electronically signed by Sukumar Stanton DO> Cosigner Signature (if applicable): CC: Dr. Dino Evans MD ~ Signed [facility] Work Phone: [phone] 391-281802-16-2024 Miscellaneous Notes* Telephone Encounter - Ana Peng LPN - 08/04/2023 10:00 AM EST Spoke with pt and information listed below given. Pt verbalizes understanding. Pt reports headaches are persisting. FU apt booked. Ana Peng LPN * Telephone Encounter - Katharine Yu - 08/04/2023 9:52 AM EST Left message to return call Katharine Yu * Telephone Encounter - DENNIS Cardona Laurie - 08/01/2023 1:30 PM EST Left message for pt to return call. Ana Cardona MA * Telephone Encounter - Shelli Alfonso RN - 07/31/2023 7:19 PM EST Attempted to contact patient. No answer. Try again later. Shelli Alfonso RN * Telephone Encounter - Saima Mittal APRN.CNP - 07/31/2023 4:16 PM EST Please let patient know that MRI of the brain was without any issues. Saima Mittal APRN.CNP documented in this encounterThe [facility]02-12-[facility] History of Present illness Narrative* Arti Cowan RT(R) - 07/31/2023 9:20 AM EST Radiology Service Progress Note DATE OF SERVICE: [...] PATIENT PRESENTS WITH AN IMPLANTABLE OR ATTACHED MANAGER CREATIVE SERVICES: Yes Dexcom ALLERGIES: Reviewed and unchanged CONTRAST ALLERGY: NO. EXAM: MRI - CONTRAST TYPE: GROUP II PERIPHERAL IV DATA: Ambulatory: A peripheral IV was started in the Left antecubital site with a Angio cath: 22 gauge. RADIOLOGY DEPARTMENT: MR; Exam(s) Completed: Head: Routine Brain SIGNATURE: RT Josiah(Kaushik) PATIENT NAME: Jodie Chilel DATE: July 31, 2023 TIME: 9:36 AM documented in this encounterThe [facility]12-15-2023 History of Present illness Narrative* Alecia Fragoso APRN.CNP - 06/02/2023 11:00 AM EST Images from the original note were not included. [facility] New Patient Evaluation PATIENT NAME: Jodie Chilel DATE OF SERVICE: June 01, 2023 CONSULTING PROVIDER: Nacho Cornell [address] [facility] [address] REASON FOR CONSULT: Nacho Cornell sends the patient for an opinion about JAELYN. My findings and recommendations will be transmitted electronically via shared medical record to the consulting provider. HPI: Jodie Chilel is a 52 year old female. Sleep-related history: JAELYN. She has difficulty tolerating PAP therapy so she's not using it. Sleepsprone. Has tried a variety of masks, including [...] viral illness or significant head injury prior tothe start of daytime sleepiness. She does not [...] population = 50. Five points is a clinicallymeaningful difference.) 03/17/2016 01/23/2019 Physical T-Score 26.7 26.7 [...] lumbar Diabetes mellitus type II Diabetic neuropathy ([facility]) 12/11/2017 feet only Endometrial cancer ([facility]) Fibromyalgia Hypothyroidism Insomnia, unspecified Lazy eye since Menopause Morbid obesity with BMI of 45.0-49.9, adult ([facility]) 03/29/2017 Schizoaffective disorder, bipolar type ([facility]) 04/14/2015 states no longer Sleep apnea CPAP occasional usage Tobacco use disorder 01/21/2021 PAST SURGICAL HISTORY Procedure Laterality Date BACK SURGERY HX 02/03/2019 bilateral laminotomies, decompression L5 and S1 nerve roots, removal of epidural lipomatosis D+C 01/28/2021 Adenocarcioma FIGO 1, [facility]. Dr. Phan LAP SURG APPENDECTOMY 2005 LAPAROSCOPY SURG CHOLECYSTECTOMY 08/11/2008 LAPS TOTAL HYSTERECT 250 GM/< W/RMVL TUBE/OVARY 03/08/2021 PAST SURGICAL HISTORY OF 1997 right forearm, brown recluse PAST SURGICAL HISTORY OF 10/28/2020 i had my nerves burnt in my back injections didn't work ACTIVE PROBLEM LIST Hypothyroidism Controlled Type 2 Diabetes Mellitus With Diabetic Neuropathy, Without Long-Term Current Use of Insulin ([facility]) Schizoaffective Disorder, Bipolar Type ([facility]) Chronic Bilateral Low Back Pain Without Sciatica Neck Pain, Chronic Morbid Obesity With Bmi of 45.0-49.9, Adult ([facility]) Diabetic Neuropathy ([facility]) Pes Cavus Diminished Pulses in Lower Extremity Tobacco Use Disorder Asthma Endometrial Adenocarcinoma ([facility]) Sleep Apnea Allergies As of Date: 06/02/2023 [...] Inject 18 Units subcutaneously every morning. Insulin [place], Disposable, (BD ULTRA-FINE VIK PEN NEEDLE) 32 [...] neuropathy, without long-term current use of insulin ([facility]) flash glucose scanning reader ([employer]STM[employer]igo JALIL 14 DAY READER) misc 1 Device [...] Nasal valve incompetence absent. Posterior airspace: Pro tongueposition 3, retrognathia present. Overbite present. High arched palate present. Tongue scalloping/ridging present. Uvula: nl Missing teeth, poor dentition 7 teeth on bottom, only 1 on left side 10 on top, fewer on left than on right IMPRESSION/PLAN: G47.33 JAELYN (obstructive sleep apnea) (primary encounter diagnosis) Z78.9 Intolerance of continuous positive airway pressure (CPAP) ventilation F51.01 Primary insomnia Jodie Chilel is a 52 year old female with overall mild JAELYN. She doesn't tolerate PAP therapy. I offered a PAP Nap but she isn't interested in having to travel to the [place]. We discussed that her JAELYN is too mild to qualify for hypoglossal nerve stimulation (Inspire). OAT--I'll check with dentist but I believe the state of patient's dentition will preclude OAT CBTI--she is interested in virtual CBTI for her long-term issue with sleep initiation insomnia Alecia Fragoso APRN.CIVIL ENGINEERING ASSISTANT documented in this encounterThe [facility] Of [facility]11-14-2023 Miscellaneous Notes* Telephone Encounter - Michelle Chavez LPN - 05/02/2023 3:49 PM EST Called the pharmacy and this issue was resolved. No PA is needed. They are ordering this medicine for pt. * Telephone Encounter - Lesia Morrow - 05/02/2023 2:40 PM EST Jodie Chilel is calling Dino Evans MD today asking for prior authorization of medication dulaglutide (TRULICITY) 1.5 mg/0.5 mL pen injector. No chief complaint on file. Patient has been identified by name and birthdate. Duration of symptoms: N/A Person calling: self Call patient at: on cell [phone] (home) Was an appointment scheduled: No Closing statement: Results or non-symptom based questions: Thank you for calling [facility], your call will be returned within the next business day. Lesia Morrow documented in this encounterThe [facility] Of [facility]11-07-2023 History of Present illness Narrative* Keyla Zamora PA-C - 04/25/2023 6:21 PM EST This note was created using NoteWriter. Subjective Jodie Chilel is a 52 year old female. HPI Patient presents with cough over the past 2 days. No fever. She states her ribs hurt from coughing.No vomiting or diarrhea. She has had some nasal congestion. Diarrhea or vomiting. No abdominal pain. She did buy some Tylenol cold and flu [id number] but has not taken it yet. She [...] lumbar Diabetes mellitus type II Diabetic neuropathy ([facility]) 12/11/2017 feet only Endometrial cancer ([facility]) Fibromyalgia Hypothyroidism Insomnia, unspecified Lazy eye since Menopause Morbid obesity with BMI of 45.0-49.9, adult ([facility]) 03/29/2017 Schizoaffective disorder, bipolar type ([facility]) 04/14/2015 states no longer Sleep apnea CPAP [...] subcutaneously every morning. 30 mL 5 Insulin [place], Disposable, (BD ULTRA-FINE VIK PEN NEEDLE) 32 [...] Sprays in each nostril daily at bedtime. 1Each 11 TRINTELLIX 10 mg tablet Take 1 [...] neuropathy, without long-term current use of insulin ([facility]) 1 Each 0 flash glucose scanning reader [...] D+C 01/28/2021 Adenocarcioma FIGO 1, [facility]. Dr. Phan LAP SURG APPENDECTOMY 2005 [...] sent Keyla Zamora PA-C documented in this encounterThe [facility]11-07-2023 Miscellaneous Notes* Telephone Encounter - Erin Templeton RN - 04/25/2023 2:33 PM EST Patient calls and notified of results and providers instructions. Patient verbalizes understanding and will discuss treatment options at appointment with Dr. Waite. Erin Templeton RN * Telephone Encounter - Yuliet Porter LPN - 04/25/2023 2:30 PM EST No answer. Left message for patient to call office and ask to speak to a nurse regarding sleep study results * Telephone Encounter - Nacho Cornell APRN.CNS - 04/25/2023 2:14 PM EST Please let her know that recent PSG showed JAELYN and PAP therapy was advised. Has Andrew appointment with Dr. Waite, interested in inspire, can discuss at visit choices for treatment. documented in this encounterThe University Of [facility] Center10-23-2023 Miscellaneous Notes* Telephone Encounter - Ana Peng LPN - 04/10/2023 4:24 PM EDT Spoke with pt and rxs below is what was needed. Nothing else is needed. Ana Peng LPN * Telephone Encounter - Nacho Cornell APRN.CNS - 04/10/2023 3:00 PM EDT What is needed? Rx sent on 04/06 for Trulicity. Sent magnesium today. * Telephone Encounter - Darcy Simmons RN - 04/10/2023 8:13 AM EDT Patient phoned for a different request and discussed this one with patient. Patient reports she just picked this Rx up on Monday last week. documented in this encounterThe [facility]10-23-2023 Miscellaneous Notes* Telephone Encounter - Darcy Simmons RN - 04/10/2023 8:16 AM EDT Patient has been identified by name and [...] you. Darcy Simmons RN. documented in this encounterThe [facility] Of [facility]10-19-2023 History of Present illness Narrative* Nacho Cornell APRN.DRESSMAKER HELPER - 04/06/2023 8:50 AM EDT SUBJECTIVE: Hepatitis B Vaccine(1 of 3 - 3-dose series) Never done Spirometry Never done DTaP,Tdap,Td Vaccine(1 - Tdap) Never done Colorectal Cancer Screening Never done Mammogram Screening due on 11/03/2021 Covid-19 Vaccine(5 - 2022- season) due on 02/17/2023 Shingrix Vaccine(2 of 2) due on 03/01/2023 ELEAZAR Jodie Chilel is a 52 year old female. PMH [...] for routine follow-up visit for follow-up regarding AJELYN. Notes that she has had previous intolerance of face masks or other external appliances for treatment of JAELYN. She is interested in the insight for treatment of sleep apnea. Sleep study was completed at [facility] last week, report not yet available. She [...] 128/82 03/08/2021 103/71 03/05/2021 124/87 Hyperlipidemia. Ms. Chilel reports doing well on current therapy. Her [...] 2.670 uU/mL 03/25/2020 1.870 uU/mL ) Ms. Chilel indicates that she is without headache, chest [...] Inject 18 Units subcutaneously every morning. Insulin [place], Disposable, (BD ULTRA-FINE VIK PEN NEEDLE) 32 [...] neuropathy, without long-term current use of insulin ([facility]) flash glucose scanning reader ([employer] JALIL 14 [...] neuropathy (HCC) 12/11/2017 feet only Endometrial cancer ([facility]) Fibromyalgia Hypothyroidism Insomnia, unspecified Lazy eye since Menopause Morbid obesity with BMI of 45.0-49.9, adult ([facility]) 03/29/2017 Schizoaffective disorder, bipolar type ([facility]) 04/14/2015 states no longer Sleep apnea CPAP [...] G47.33 (primary diagnosis) Sleep study completed at [facility], reports prior intolerance of PAP therapy. Interested in insite. - CONSULT TO SLEEP MEDICINE - ADULT 2. Controlled type 2 diabetes mellitus with diabetic neuropathy, without long- term current use of insulin (HCC) - ICD9: 250.60, 357.2, ICD10: E11.40 - INSULIN GLARGINE (U-100) 100 UNIT/ML (3 ML) SUBCUTANEOUS PEN 3. Encounter for immunization - ICD9: V03.89, ICD10: Z23 - PFIZER-BIONTECH COVID-19 VACCINE (2022- [place]) AGE 12+ YR - ZOSTER VACCINE, RECOMBINANT (SHINGRIX) Nacho Cornell APRN.DRESSMAKER HELPER Medical Decision Making: Problems: Moderate: 2+ stable chronic illnesses Risk: Moderate: Drug management Medical Decision Making Level: 4 - Moderate documented in this encounterThe [facility]10-05-2023 Miscellaneous Notes* Telephone Encounter - Yuliet Verdin LPN - 03/23/2023 10:11 AM EDT Order, note and previous sleep study faxed to [facility] sleep study * Telephone Encounter - Dino Evans MD - 03/23/2023 2:07 AM EDT Note closed * Telephone Encounter - Jen Decker LPN - 03/22/2023 10:43 AM EDT Office note needs completed prior to faxing order. * Telephone Encounter - TriciaChristoferCarolrachana HAQUE - 03/21/2023 11:19 AM EDT Pt is calling to report she called [facility] to schedule sleep study. Pt was advised that they have not received orders from 's office. Has office sent over [facility] form for sleep study? If not please fax and let pt know. Carol Clarke LPN documented in this encounterThe [facility] Of [facility]10-04-2023 NoteHNO ID: [id number] Author: Braxton Modi RPh Service: ? Author Type: Pharmacist Type: Progress Notes Filed: 03/27/2023 10:14 AM Note Text: Primary Care Pharmacy Visit CC (Reason for Consult): (E11.40) Controlled type 2 diabetes mellitus with diabetic neuropathy, without long-term current use of insulin (HCC) (primary encounter diagnosis) Goal(s): A1C < 7% Last Collaborating Provider Visit: 03/15/23 Jodie Chilel is a 52 year old female presenting for follow up visit by telephone. Patient consents to pharmacy collaborative practice agreement. . HPI: Jodie Chilel attends today's appointment by telephone. she is [...] Outpatient Medications Medication Sig Dispense Refill Insulin [place], Disposable, (BD ULTRA-FINE VIK PEN NEEDLE) 32 [...] neuropathy, without long-term current use of insulin ([facility]) 1 Each 0 flash glucose scanning reader ([employer] AJLIL 14 DAY READER) misc 1 Device once [...] 35 03/15/2023 Lab Re (more content not included)...[id number] Miscellaneous Notes* Telephone Encounter - Sandra France RN - 03/07/2023 3:23 PM EDT Last Office Visit: 01/09/2023 Future Office Visit: 03/15/2023 Requested Prescriptions Pending Prescriptions Disp Refills dulaglutide (TRULICITY) 1.5 mg/0.5 mL pen injector 2 mL 1 Sig: Inject 1.5 mg subcutaneously one time a week. Date of Last Labs: 12/08/2022 documented in this encounterThe [facility] Of [facility]09-18-2023 Miscellaneous Notes* Telephone Encounter - Dino Evans MD - 03/06/2023 8:00 PM EDT Looks like just needed a refill (the [...] daily for 90 days. Authorizing Provider: DINO EVANS MD * Telephone Encounter - Jen Decker LPN - 03/06/2023 10:35 AM EDT Suspect patient is out of refills. Question if really needs a prior authorization. Last office visit: 01/09/23 Next appointment scheduled: 03/15/23 Patient phones requesting refills as follows: Requested Prescriptions Pending Prescriptions Disp Refills pregabalin (LYRICA) 150 mg capsule 60 capsule 2 Sig: Take 1 capsule by mouth twice daily for 90 days. Please review and advise. Jen Decker LPN * Telephone Encounter - Lissette Fox - 03/06/2023 8:30 AM EDT Pt called requesting to refill the pregabalin. Then states pharmacy will not fill. Stated to her they need a prior authorization. Please advise. documented in this encounterThe University Of [facility]09-15-2023 Miscellaneous Notes* Telephone Encounter - Darcy Simmons RN - 03/03/2023 10:59 AM EDT Phoned patient and given provider's message below. Patient reports she was able to get a sensor at the pharmacy. Reports she has the 800 number and will use it in the future. Patient aware there is an Rx for glucometer / strips at pharmacy. * Telephone Encounter - Dino Evans MD - 03/02/2023 3:37 PM EDT 1) Did she call the 1-800 number [...] is out of sensors. Authorizing Provider: DINO EVANS Blood-Glucose Meter monitoring kit 1 Each 0 Sig: Glucose Meter of Choice - Kit - Dx: Type 2 DM - Controlled E11.9 Authorizing Provider: DINO EVANS blood sugar diagnostic (BLOOD GLUCOSE TEST) test strip 100 Strip 11 Sig: Test blood sugar(s) 2 times daily. Dx: Type 2 DM - Controlled E11.9 Insulin: Yes Authorizing Provider: DINO EVANS MD * Telephone Encounter - Radha Kee RN - 03/01/2023 3:58 PM EDT Pt called and is notified of providers [...] and date of : Yes, Provider Dr Evans Date 03/01/23 Time 1615. Patient phones for [...] is out of sensors. Authorizing Provider: DINO EVANS Date of last office visit in primary care: 01/09/23 Future visit: 03/15/23 Last 2 Encounter Wt Readings: Date: Wt: 01/31/2023 95.7 kg (211 lb) 01/09/2023 93.9 kg (207 lb) Previous labs/tests for medication: Diabetes: Hemoglobin A1C (%) Date Value 12/08/2022 9.2 07/04/2022 7.7 06/23/2021 8.8 12/03/2020 8.8 Please advise. Thank you. Radha Kee RN * Telephone Encounter - Dino Evans MD - 03/01/2023 3:35 PM EDT Can try to get local RX filled [...] is out of sensors. Authorizing Provider: DINO EVANS MD * Telephone Encounter - Darcy Simmons RN - 03/01/2023 2:21 PM EDT Patient reports she ran out of sensors and [facility] tells her it's too soon to get [...] eating and drinking fluids has helped the symp toms and she is driving right now. Patient is agreeable to ER if symptoms worsen. Asking provider to please send Rx for 1 sensor to [facility]. It is too soon to fill her existing Rx per insurance. Pended. documented in this encounterThe [facility] Of [facility]09-13-2023 Miscellaneous Notes* Telephone Encounter - Jen Decker LPN - 03/01/2023 1:51 PM EDT PATIENT NOTIFIED OF SAME. Patient read back and voiced her understanding. * Telephone Encounter - Dino Evans MD - 03/01/2023 1:02 PM EDT Tell her to decrease Lantus to 20 [...] dropping under 70 or going over 200 * Telephone Encounter - Jen Decker LPN - 03/01/2023 10:30 AM EDT Spoke with patient and is still getting low fasting readings in the mornings. Yesterday reading was45 and then 53 about 10-20 minutes later. [...] not opposed to having PCP adjust medication. * Telephone Encounter - Dino Evans MD - 02/28/2023 8:57 PM EDT See how patient is doing Monday. If having frequent problems with low sugars, can work on adjusting meds--see if needs directions from me now or if wants to work with the pharmacist who has been working with her and discuss with himsooner than scheduled March appointment (Braxton Modi) * Telephone Encounter - Shelli Alfonso RN - 02/27/2023 6:30 PM EDT Patient called with low blood sugar reading. [...] NO Protocols used: Diabetes - Low Blood [id number] documented in this encounterThe [facility] Of [facility]09-12-2023 Miscellaneous Notes* Telephone Encounter - Dino Evans MD - 02/28/2023 12:52 AM EDT Okayed * Telephone Encounter - Christine Mendoza LPN - 02/27/2023 11:[address] Evans please review. Christine Mendoza LPN documented in this encounterThe [facility] Of [facility]08-31-2023 Miscellaneous Notes* Telephone Encounter - Darcy Simmons RN - 02/16/2023 10:41 AM EDT Patient c/o low BS, unable to get [...] brought up to 77, but went back downto 59. Sipped on veronica juice and now it's up to 70. Had a piece of toast w/butter for breakfast. Urinating a lot. Blurred vision. 2. ONSET: Today. Has had GRAFF's for a long time. Thought they were migraines- bought [employer] general migraine relief pills yesterday. Took those [...] able to see and read. Dizziness- able towalk. Reports she feels horrible and her 9. LOW BLOOD GLUCOSE TREATMENT: See above 10. FOOD: Last meal was yesterday 6 pm. Had toast this morning. 11. ALONE: Lives alone but boyfriend just arrived at her home. 12. : No. Hysterectomy. Protocols used: Diabetes - Low Blood [id number] documented in this encounterThe [facility] Of [facility]08-16-2023 Miscellaneous Notes* Telephone Encounter - Pooja Barreto RN - 02/01/2023 1:37 PM EDT Patient has been identified by name and date of : Yes, Provider Dr. Evans Date 02/01/23 [id number] Patient phones for refill(s): Requested Prescriptions Pending [...] 06/23/2021 115 Please advise. Thank you. Pooja Barreto RN documented in this encounterThe University Of [facility]08-16-2023 NoteHNO ID: [id number] Author: Braxton Modi RPh Service: ? Author Type: Pharmacist Type: Progress Notes Filed: 02/02/2023 12:53 PM Note Text: Primary Care Pharmacy Visit CC (Reason for Consult): (E11.40) Controlled type 2 diabetes mellitus with diabetic neuropathy, without long-term current use of insulin (HCC) (primary encounter diagnosis) Goal(s): A1C < 7% Last Collaborating Provider Visit: 01/09/23 Jodie Chilel is a 52 year old female presenting [...] mouth once daily. 30 tablet 5 Insulin [place], Disposable, (NOVOFINE 32) 32 gauge x 1/4 [...] neuropathy, without long-term current use of insulin ([facility]) 1 Each 0 flash glucose scanning reader [...] The majority of the (more content not included)...[facility] [id number] Note HNO ID: [id number] Author: Braxton Modi RPh Service: ? Author Type: Pharmacist Type: Progress Notes Filed: 02/02/2023 12:53 PM Note Text: Primary Care Pharmacy Visit: Student Assessment and Review Note Jodie Chilel is a 52 year old female seen today as a part of the care plan for her chronic disease management in coordination with Dr. Braxton Modi. HPI: Jodie Chilel attends today's appointment alone. she is a [place] White FEMALE who is AANDO x3, pleasant, and cooperative. Today, she states that her chief concern is I'm pretty good. Trulicity dose was increased to 1.5 mg weekly. Chemical fall on 01/19/23, DC and counseled on self care with APAP, Bacitracin and ice. Trintilex hasn't had for over two weeks Albuterol [...] stomach. For thyroid. 30 tablet 11 Insulin [place], Disposable, (NOVOFINE 32) 32 gauge x 1/4 [...] neuropathy, without long-term current use of insulin ([facility]) 1 Each 0 flash glucose scanning reader (FREESTYLE JALIL 14 DAY READER) misc 1 Device once daily. 1 Each 0 No current facility-administered medications for this visit. EXAM: LMP (LMP Unknown) Last 3 Encounter BP Readings: Date: BP: 01/31/2023 110/68 01/09/2023 118/68 12/08/2022 118/70 Wt: 95.7 kg (211 lb) BMI: 41.21 kg/(m2) LABS: (more content not included)...[id number] History of Present illness Narrative* Mary Womack MD - 01/31/2023 10:16 AM EDT Golf Course Ranger offered: Patient declines. Jodie Chilel is a 52 year old female who presents for follow-up for 6-month pelvic exam status post endometrial cancer status post hysterectomy/BSO. Patient reports is doing well. No vaginal bleeding. No pelvic pain. 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 History Comments: Sexual Activity: Not Currently; No partner data on record Contraception: No contraception data on record PAST MEDICAL HISTORY Diagnosis Date Adjustment disorder with depressed mood Anxiety disorder in conditions classified elsewhere Asthma 03/31/2019 mild well controlled Degenerative disc disease, lumbar Diabetes mellitus type II Diabetic neuropathy ([facility]) 12/11/2017 feet only Endometrial cancer ([facility]) Fibromyalgia Hypothyroidism Insomnia, unspecified Lazy eye since Menopause Morbid obesity with BMI of 45.0-49.9, adult ([facility]) 03/29/2017 Schizoaffective disorder, bipolar type ([facility]) 04/14/2015 states no longer Sleep apnea CPAP occasional usage Tobacco use disorder 01/21/2021 PAST SURGICAL HISTORY Procedure Laterality Date BACK SURGERY HX 02/03/2019 bilateral laminotomies, decompression L5 and S1 nerve roots, removal of epidural lipomatosis D+C 01/28/2021 Adenocarcioma FIGO 1, [facility]. Dr. Phan LAP SURG APPENDECTOMY 2005 [...] Take on empty stomach. For thyroid. Insulin [place], Disposable, (NOVOFINE 32) 32 gauge x 1/4 Inject 1 Each subcutaneously once daily.USE ONE NEEDLE DAILY FOR DOSE OF GLARGINE [...] LITE STRIPS) test strip Test blood sugar(s) 1- 2 times daily. Dx: e11.65, Z79.4. Insulin: yes COMPOUNDED PRESCRIPTION Diabetic Shoes--fitted with inserts for flat feet, 1 pair Diagnosis: (M21.41, M21.42) Pes planus of both feet ; (E11.40) Controlled type 2 diabetes mellitus with diabetic neuropathy, without long-term current use of insulin ([facility]) flash glucose scanning reader (FREESTYLE JALIL 14 [...] external genitalia normal, normal Bartholin's glands, urethra, Lowman's glands, no vulvar lesions, good vaginal support, [...] 6 months . Chart sent to Dr. Hemant Sosa. I spent a total of 20 minutes on the date of the service which included preparing to see the patient, [id number] patient care, completing clinical documentation, obtaining and/or reviewing separately obtained history, performing a medically appropriate examination, and counseling and educating the patient/family/caregiver. Mary Jacobo MD documented in this encounterThe [facility] Of [facility]08-03-2023 Hospital Discharge instructions Additional Instructions 1. Apply bacitracin ointment to the abrasions 3 times a day for the next 5 days 2. Apply ice to areas of discomfort 6-10 times a day 3. Take Tylenol for [facility] Work Phone: 1(544) 177-300307-12-2023 NoteHNO ID: [id number] Author: Braxton Modi RPh Service: ? Author Type: Pharmacist Type: Progress Notes Filed: 12/28/2022 10:48 AM Note Text: Primary Care Pharmacy Visit CC (Reason for Consult): (E11.40) Controlled type 2 diabetes mellitus with diabetic neuropathy, without long-term current use of insulin (HCC) (primary encounter diagnosis) Goal(s): A1C < 7% Last Collaborating Provider Visit: 12/08/22 Jodie Chilel is a 52 year old female presenting for follow up visit by telephone. Patient consents to pharmacy collaborative practice agreement. . HPI: Jodie Chilel attends today's appointment by telephone. she is [...] stomach. For thyroid. 30 tablet 11 Insulin [place], Disposable, (NOVOFINE 32) 32 gauge x 1/4 [...] neuropathy, without long-term current use of insulin ([facility]) 1 Each 0 flash glucose scanning reader [...] Date Value 03/09/2021 >60 (more content not included)...[facility] [id number] History of Present illness Narrative* Braxton Modi [facility] - 12/28/2022 10:30 AM EDT Primary Care Pharmacy Visit CC (Reason for Consult): (E11.40) Controlled type 2 diabetes mellitus with diabetic neuropathy, without long-term current use of insulin (HCC) (primary encounter diagnosis) Goal(s): A1C < 7% Last Collaborating Provider Visit: 12/08/22 Jodie Chilel is a 52 year old female presenting for follow up visit by telephone. Patient consents to pharmacy collaborative practice agreement. . HPI: Jodie Chilel attends today's appointment by telephone. she is [...] Sprays in each nostril daily at bedtime. 1Each 11 TRINTELLIX 10 mg tablet Take 1 [...] stomach. For thyroid. 30 tablet 11 Insulin [place], Disposable, (NOVOFINE 32) 32 gauge x 1/4 Inject 1 Each subcutaneously once daily.USE ONE NEEDLE DAILY FOR DOSE OF GLARGINE [...] LITE STRIPS) test strip Test blood sugar(s) 1- 2 times daily. Dx: e11.65, Z79.4. Insulin: yes 50 Strip 11 COMPOUNDED PRESCRIPTION Diabetic Shoes--fitted with inserts for flat feet, 1 pair Diagnosis: (M21.41, M21.42) Pes planus of both feet ; (E11.40) Controlled type 2 diabetes mellitus with diabetic neuropathy, without long-term current use of insulin ([facility]) 1 Each 0 flash glucose scanning reader [...] 2 diabetes mellitus with diabetic neuropathy, without long- term current use of insulin (HCC) - ICD9: [...] was spent counseling and/or coordinating care for thepatient. interaction: telephonic time was 22 minutes. documented in this encounterThe [facility] Of [facility]06-28-2023 NoteHNO ID: [id number] Author: Braxton Modi RPh Service: ? Author [...] 12/09/22 (Referring provider Nacho Cornell APRN) Jodie Chilel is a 52 year old female presenting for initial visit: This initial consult was conducted by telephone with the patient where the consult agreement was explained. The patient may decline or cancel the agreement at any time. After consideration, the patient consented to the pharmacy consult agreement and agreed to allow medications be collaboratively managed by a pharmacist.. HPI: Jodie Chilel attends today's appointment by telephone. she is [...] stomach. For thyroid. 30 tablet 11 Insulin [place], Disposable, (NOVOFINE 32) 32 gauge x 1/4 [...] 0 No current facility-ad (more content not included)...[facility] [id number] History of Present illness Narrative* Braxton Modi, [facility] - 12/14/2022 10:00 AM EDT Primary Care Pharmacy Visit CC (Reason for Consult): (E11.40) Controlled type 2 diabetes mellitus with diabetic neuropathy, without long-term current use of insulin (HCC) (primary encounter diagnosis) Goal: A1C < 7% (reasonable to aim for A1C < 6.5% based on age) Last Collaborating Provider Visit: 12/09/22 (Referring provider Nacho Cornell APRN) Jodie Chilel is a 52 year old female presenting for initial visit: This initial consult was conducted by telephone with the patient where the consult agreement was explained. The patient may decline or cancel the agreement at any time. After consideration, the patient consented to the pharmacy consult agreement and agreed to allow medications be collaboratively managed by a pharmacist.. HPI: Jodie Chilel attends today's appointment by telephone. she is [...] her apartment building is going to be anonsmoking building soon, so this is an additional [...] Sprays in each nostril daily at bedtime. 1Each 11 TRINTELLIX 10 mg tablet Take 1 [...] stomach. For thyroid. 30 tablet 11 Insulin [place], Disposable, (NOVOFINE 32) 32 gauge x 1/4 Inject 1 Each subcutaneously once daily.USE ONE NEEDLE DAILY FOR DOSE OF GLARGINE [...] LITE STRIPS) test strip Test blood sugar(s) 1- 2 times daily. Dx: e11.65, Z79.4. Insulin: yes 50 Strip 11 COMPOUNDED PRESCRIPTION Diabetic Shoes--fitted with inserts for flat feet, 1 pair Diagnosis: (M21.41, M21.42) Pes planus of both feet ; (E11.40) Controlled type 2 diabetes mellitus with diabetic neuropathy, without long-term current use of insulin ([facility]) 1 Each 0 flash glucose scanning reader [...] 2 diabetes mellitus with diabetic neuropathy, without long- term current use of insulin ([facility]) - ICD9: 250.60, 357.2, ICD10: E11.40 - [...] was spent counseling and/or coordinating care for thepatient. interaction: telephonic time was 45 minutes. documented in this encounterThe University Of [facility] Center2023 Miscellaneous Notes* Telephone Encounter - Erin Templeton RN - 12/12/2022 11:55 AM EDT Patient calls to request refill of freestyle Jalil 14 day sensor kit reporting there is no refills at the pharmacy. Call placed to [facility] pharmacy and they will fill the prescription on file from 09/16/2022. Erin Templeton RN documented in this encounterThe University Of [facility] Center06-22-2023 Instructions* Patient Instructions* Nacho Cornell APRN.CNS - 12/08/2022 12:27 PM EDT Increase pregabalin from 75 mg twice daily to 100 mg twice daily documented in this encounterThe University Of [facility] Center06-22-2023 History of Present illness Narrative* Nacho Cornell APRN.CNS - 12/08/2022 12:00 PM EDT SUBJECTIVE: HEPATITIS B(1 of 3 - 3-dose series) Never done SPIROMETRY Never done DTAP,TDAP,TD(1 - Tdap) Never done SHINGRIX VACCINE(1 of 2) Never done DILATED RETINAL EXAM due on 09/17/2021 MAMMOGRAM due on 11/03/2021 URINE ALBUMIN:CREATININE RATIO due on 06/23/2022 HPI Jodie Chilel is a 52 year old female. PMH [...] 124/72 01/21/2021 126/70 01/20/2021 116/76 Hyperlipidemia. Ms. Chilel reports doing well on current therapy. Her [...] 2.670 uU/mL 03/25/2020 1.870 uU/mL ) Ms. Chilel indicates that she is without headache, chest pain, palpitations, dyspnea, peripheral edema, orthopnea, fatigue and PND. Last 14 Encounter BP Readings: Date: BP: 12/08/2022 118/70 09/16/2022 110/68 08/02/2022 104/60 06/24/2022 122/82 01/24/2022 134/70 10/01/2021 122/80 06/23/2021 122/80 03/23/2021 128/82 03/08/2021 103/71 03/05/2021 124/87 02/25/2021 103/52 02/16/2021 128/86 02/10/2021 124/72 01/21/2021 126/70 Continues to follow-up at [facility] for behavioral health. States this is [...] Take on empty stomach. For thyroid. Insulin [place], Disposable, (NOVOFINE 32) 32 gauge x 1/4 Inject 1 Each subcutaneously once daily.USE ONE NEEDLE DAILY FOR DOSE OF GLARGINE [...] LITE STRIPS) test strip Test blood sugar(s) 1- 2 times daily. Dx: e11.65, Z79.4. Insulin: yes COMPOUNDED PRESCRIPTION Diabetic Shoes--fitted with inserts for flat feet, 1 pair Diagnosis: (M21.41, M21.42) Pes planus of both feet ; (E11.40) Controlled type 2 diabetes mellitus with diabetic neuropathy, without long-term current use of insulin ([facility]) flash glucose scanning reader (FREESTYLE AJLIL 14 DAY READER) misc 1 Device once [...] lumbar Diabetes mellitus type II Diabetic neuropathy ([facility]) 12/11/2017 feet only Endometrial cancer ([facility]) Fibromyalgia Hypothyroidism Insomnia, unspecified Lazy eye since Menopause Morbid obesity with BMI of 45.0-49.9, adult ([facility]) 03/29/2017 Schizoaffective disorder, bipolar type ([facility]) 04/14/2015 states no longer Sleep apnea CPAP [...] with long-term current use of insulin (HCC) -ICD9: 250.60, 357.2, V58.67, ICD10: E11.40, Z79.4 (primary [...] by counseling center Labs today Nacho Cornell APRN.DRESSMAKER HELPER Medical Decision Making: Problems: Moderate: 1+ chronic illnesses with change Risk: Moderate: Drug management Medical Decision Making Level: 4 - Moderate documented in this encounterThe University Of [facility] Center03-31-2023 Nurse Note* Tatianna Severino LPN - 09/16/2022 12:21 PM EDT Patient not able to stay to have EKG and labwork completed today due to appointment in [place] at 12 pm. Pt will need to schedule Nurse visit to have EKG done, and needing to have follow up appointment scheduled with PCP. Tatianna Severino LPN documented in this encounterThe University Of [facility] Center03-31-2023 Instructions* Patient Instructions* Dino Evans MD - 09/16/2022 11:09 AM EDT If the sinus and allergy medication has a decongestant (phenylephrine or pseudoephedrine), need to stop taking and find another sinus and cold med without it if Flonase (flucticasone) 2 sprays each nostril daily not effective for controlling symptoms. documented in this encounterThe University Of [facility] Center03-31-2023 History of Present illness Narrative* Dino Evans MD - 09/16/2022 11:02 AM EDT This note was created using [employer] (TTR)riter. Subjective Jodie Chilel is a 52 year old female. Patient presents with: F/U 6 months SUBJECTIVE: Jodie Chilel is a 52 year old year old [...] lumbar Diabetes mellitus type II Diabetic neuropathy ([facility]) 12/11/2017 feet only Endometrial cancer ([facility]) Fibromyalgia Hypothyroidism Insomnia, unspecified Lazy eye since Menopause Morbid obesity with BMI of 45.0-49.9, adult ([facility]) 03/29/2017 Schizoaffective disorder, bipolar type ([facility]) 04/14/2015 states no longer Sleep apnea CPAP [...] Take on empty stomach. For thyroid. Insulin [place], Disposable, (NOVOFINE 32) 32 gauge x 1/4 Inject 1 Each subcutaneously once daily.USE ONE NEEDLE DAILY FOR DOSE OF GLARGINE [...] LITE STRIPS) test strip Test blood sugar(s) 1- 2 times daily. Dx: e11.65, Z79.4. Insulin: yes COMPOUNDED PRESCRIPTION Diabetic Shoes--fitted with inserts for flat feet, 1 pair Diagnosis: (M21.41, M21.42) Pes planus of both feet ; (E11.40) Controlled type 2 diabetes mellitus with diabetic neuropathy, without long-term current use of insulin ([facility]) flash glucose scanning reader (FREESTYLE JALIL 14 [...] and regular exercise and adequate sleep. Dino Evans MD documented in this encounterThe University Of [facility] Center03-14-2023 Miscellaneous Notes* Telephone Encounter - Radha Kee RN - 08/30/2022 10:58 AM EDT Patient has been identified by name and date of : Yes, Provider Dr Evans Date 08/30/22 Time 1100. Patient phones for [...] 12/03/2020 30 Please advise. Thank you. Radha Kee, RN documented in this encounterThe University Of [facility] Center02-20-2023 Miscellaneous Notes* Telephone Encounter - Jen Decker LPN - 08/08/2022 10:51 AM EST PATIENT NOTIFIED OF SAME. Patient states that she has been taking the two medication together. Explain to patient that levothyroxine is to be taken by itself on an empty stomach with no other medication. Waiting 1 hours to eat and then take other am medication as prescribed. * Telephone Encounter - Dino Evans MD - 08/06/2022 4:05 PM EST Make sure does not take along with Synthroid because would keep from absorbing Synthroid. The following approved medication requests have been transmitted electronically. Requested Prescriptions Signed Prescriptions Disp Refills Magnesium Oxide 500 mg tab 30 tablet 5 Sig: Take 1 tablet by mouth once daily. Authorizing Provider: DINO EVANS MD * Telephone Encounter - Lissette Juarez Pss - 07/26/2022 3:11 PM EST Jodie is requesting prescribe her Magnesium Oxide. She would like it sent to the [facility] in [place] Jodie: [phone] documented in this encounterThe University Of [facility] Center01-18-2023 Miscellaneous Notes* Telephone Encounter - Jen Decker LPN - 07/06/2022 11:55 AM EST PATIENT NOTIFIED OF SAME. * Telephone Encounter - Saima Mittal APRN.CIVIL ENGINEERING ASSISTANT - 07/06/2022 11:42 AM EST She can take a magnesium oxide 200 mg - 400 mg I believe they have 200 mg, 250 mg and 400 mg OTC soany of those would be okay. * Telephone Encounter - Jen Decker LPN - 07/06/2022 11:36 AM EST PATIENT NOTIFIED OF SAME. States she will use OTC. What dose should she look for? * Telephone Encounter - Saima Mittal APRN.CNP - 07/06/2022 11:29 AM EST Based on her lab level I would recommend a daily magnesium supplement. Would she like this sent or to forklift picker OTC? * Telephone Encounter - Darcy Simmons RN - 07/05/2022 9:38 AM EST Phoned patient and given provider's message below with verbalized understanding. Does pcp want her to take supplement for the magnesium? Please advise patient. * Telephone Encounter - Nacho Cornell APRN.CNS - 07/05/2022 7:30 AM EST PCP visit 06/24/2022 Labs yesterday show significant [...] Abs Lymph 1.00 - 4.00 k/uL 2.70 [place]% % 6.4 Abs [place] <0.87 k/uL 0.48 Eosin% % 2.5 Abs [...] 06/23/2021 8.8 12/03/2020 8.8 documented in this encounterThe [facility]10-31-2022 Miscellaneous Notes* Telephone Encounter - Darcy Simmons RN - 04/18/2022 11:23 AM EDT Faxed Vit D and last B12 lab results to [facility], per Shivani request. documented in this encounterThe [facility] Of [facility]10-03-2022 Miscellaneous Notes* Telephone Encounter - Geena La Pss - 03/21/2022 1:53 PM EDT 3rd attempt to reach patient. Spoke to patient who is declining consult. This PSS updated contact phone number. * Telephone Encounter - Leon Bernstein RPh - 03/17/2022 4:32 PM EDT Another attempt made to reach patient to schedule pharmacy visit. When calling, number states patient has calling restrictions. Will see if able to reach patient from local number. PSS staff, can you please call patient to offer to schedule pharmacy visit. Thanks! Leon Bernstein RPh * Telephone Encounter - Leon Bernstein RPh - 02/10/2022 12:42 PM EDT Patient was referred to pharmacy by KEYUR Cornell on 02/01. Called and Left voicemail for patientto return call to [phone] to schedule visit. Leon Bernstein, RoseD, BCACP Primary Care Clinical Pharmacist [facility] documented in this encounterThe [facility]08-19-2022 Miscellaneous Notes* Telephone Encounter - Nacho Cornell APRN.CNS - 02/04/2022 3:08 PM EDT Can mail update if no answer. * Telephone Encounter - Yuliet Verdin LPN - 02/03/2022 9:33 AM EDT No answer and voice mailbox is full. * Telephone Encounter - Nacho Cornell APRN.CNS - 02/03/2022 7:44 AM EDT Noted, as was only taking one metformin 500 mg daily before recent visit, continue with that unchanged for now, recheck A1c 3 mos, visit with me 3 mos. * Telephone Encounter - Jen Decker LPN - 02/02/2022 11:06 AM EDT PATIENT NOTIFIED OF SAME. She states that she is taking the metformin 500 mg 2 tablets twice daily. She will increase the lantus to 16 units. She is not interested in the diabetes program. * Telephone Encounter - Christine Mendoza LPN - 02/02/2022 9:19 AM EDT Below results/recommendations, left on identified vm. Asked Patient to call back in to verify she did receive & get her scheduled for diabetic structure program. Christine Mendoza LPN * Telephone Encounter - Chrisitne Mendoza LPN - 02/01/2022 5:02 PM EDT Mailbox is full, unable to leave msg, will try again. Christine Mendoza LPN * Telephone Encounter - Nacho Cornell APRN.KEYUR - 02/01/2022 4:36 PM EDT Labwork shows uncontrolled DM. Verify that she [...] Abs Lymph 1.00 - 4.00 k/uL 2.72 [place]% % 4.8 Abs [place] <0.87 k/uL 0.48 Eosin% % 1.0 Abs [...] - 4.200 mIU/L 1.770 documented in this encounterThe [facility]08-18-2022 Miscellaneous Notes* Telephone Encounter - CHARLIE Jacobsen - 02/03/2022 11:22 AM EDT Telephoned the patient to schedule a new Primary Care pharmacy appt. Left a message. Made two attempts to contact the patient. Patient has not returned the call. If the patient returns a call, an appt will be scheduled. Encounter routed to the clinical pharmacist. * Telephone Encounter - CHARLIE Jacobsen - 02/02/2022 11:44 AM EDT Telephoned the patient to schedule a new Primary Care pharmacy appt. Left a message on cell number.The home number mailbox is full. documented in this encounterThe [facility] Of [facility]08-08-2022 Instructions* Patient Instructions* Nacho Cornell APRN.CNS - 01/24/2022 12:00 PM EDT Increase metformin to two tablets with breakfast and dinner. Check to see if your insurance covers Tdap and shingles vaccine and what location to get the vaccine-usually best covered at your local pharmacy where you get prescriptions filled documented in this encounterThe [facility] Of [facility]08-08-2022 History of Present illness Narrative* Nacho Cornell APRN.CNS - 01/24/2022 11:40 AM EDT SUBJECTIVE: HEPATITIS B(1 of 3 - 3-dose series) Never done SPIROMETRY Never done PNEUMOCOCCAL(2 - PCV) due on 02/12/2013 DILATED RETINAL EXAM due on 09/17/2021 HBA1C due on 09/21/2021 DIABETIC FOOT EXAM due on 11/02/2021 MAMMOGRAM due on 11/03/2021 COVID-19 VACCINE(4 - Booster for Moderna series) due on 12/24/2021 HPI Jodie Chilel is a 51 year old female. PMH [...] 122/80 06/23/2021 122/80 03/23/2021 128/82 Hyperlipidemia. Ms. Chilel reports doing well on current therapy. Her most recent lipid panels are: Cholesterol, Total (mg/dL) Date Value 06/23/2021 174 08/21/2020 137 HDL Cholesterol (mg/dL) Date Value 06/23/2021 59 08/21/2020 61 LDL Cholesterol (mg/dL) Date Value 06/23/2021 84 08/21/2020 53 Triglyceride (mg/dL) Date Value 06/23/2021 155 08/21/2020 115 Hypothyroidism. She is stable on levothyroxine. TSH (uU/mL) Date Value 12/03/2020 2.670 03/25/2020 1.870 ) Ms. Chilel indicates that she is without headache, chest pain, palpitations, dyspnea, peripheral edema, orthopnea, fatigue and PND. Last 14 Encounter BP Readings: Date: BP: 01/24/2022 134/70 10/01/2021 122/80 06/23/2021 122/80 03/23/2021 128/82 03/08/2021 103/71 03/05/2021 124/87 02/25/2021 103/52 02/16/2021 128/86 02/10/2021 124/72 01/21/2021 126/70 01/20/2021 116/76 12/14/2020 112/76 12/03/2020 126/78 11/03/2020 118/76 Continues to follow-up at [facility]. States this is [...] Take on empty stomach. For thyroid. Insulin [place], Disposable, (NOVOFINE 32) 32 gauge x 1/4 Inject 1 Each subcutaneously once daily.USE ONE NEEDLE DAILY FOR DOSE OF GLARGINE [...] LITE STRIPS) test strip Test blood sugar(s) 1- 2 times daily. Dx: e11.65, Z79.4. Insulin: yes COMPOUNDED PRESCRIPTION Diabetic Shoes--fitted with inserts for flat feet, 1 pair Diagnosis: (M21.41, M21.42) Pes planus of both feet ; (E11.40) Controlled type 2 diabetes mellitus with diabetic neuropathy, without long-term current use of insulin ([facility]) flash glucose scanning reader (FREESTYLE JALIL 14 [...] lumbar Diabetes mellitus type II Diabetic neuropathy ([facility]) 12/11/2017 feet only Endometrial cancer ([facility]) Fibromyalgia Hypothyroidism Insomnia, unspecified Lazy eye since Menopause Morbid obesity with BMI of 45.0-49.9, adult ([facility]) 03/29/2017 Schizoaffective disorder, bipolar type ([facility]) 04/14/2015 states no longer Sleep apnea CPAP [...] IM - PNEUMOCOCCAL VACCINE (PREVNAR 20) - [place] COVID-19 VACCINE, AGE 12+ YR ([place]) [...] 2 diabetes mellitus with diabetic neuropathy, without long- term current use of insulin (HCC) - ICD9: [...] - TSH BLD Schizoaffective disorder Followed at [facility] Nacho Cornell, LICSW.DRESSMAKER HELPER 6 mo follow up Dino Evans MD Medical Decision Making: Problems: Moderate: 2+ stable chronic illnesses Data: Unique test(s) ordered: 3+ Risk: Moderate: Drug management Medical Decision Making Level: 4 - Moderate documented in this encounterThe [facility]06-21-2022 Miscellaneous Notes* Telephone Encounter - Michelle Chavez LPN - 12/07/2021 2:43 PM EDT Last seen pcp 01/21/21. Next appt with pcp 01/21/22. * Telephone Encounter - Mayte Alicia - 12/07/2021 2:35 PM EDT Patient has been identified by name and [...] to the pharmacy. Please call patient at: [phone]. Mayte Peng Pss documented in this encounterThe [facility]04-16-2022 Miscellaneous Notes* Telephone Encounter - Mayelin Peng LPN - 10/02/2021 8:36 AM EDT Phone call placed detailed message left on patients identified voicemail (see prior provider encounter) Mayelin Peng LPN * Telephone Encounter - Keyla Zamora PA-C - 10/02/2021 7:49 AM EDT Let patient know she was negative for COVID-19. documented in this encounterThe [facility] Of [facility]04-15-2022 Miscellaneous Notes* Telephone Encounter - Dino Evans MD - 10/01/2021 7:44 PM EDT Noted that patient has not called back. * Telephone Encounter - Narda Younger Ma - 09/13/2021 11:25 AM EDT Left message on mobile number * Telephone Encounter - Yuliet Verdin LPN - 09/09/2021 2:40 PM EDT No answer and voice mailbox is full and can't accept any new message. * Telephone Encounter - Dino Evans MD - 09/08/2021 11:51 AM EDT Records reviewed. See how she is doing [...] patient report below when she spoke to [facility]. See if wants to try gabapentin again--was on in the past and stopped in 2019. Could help with nervepain. * Telephone Encounter - Yuliet Verdin LPN - 09/06/2021 3:44 PM EDT ER records obtained. 08/31 ER visit was for hyperglycemia. Records printed as well as Dr. Verdin's office visit and 08/12/21 ER visit for back pain. Records on nurses desk for review. * Telephone Encounter - Dino Evans MD - 09/05/2021 11:32 PM EDT Noted that patient seen in 08/31--do we have ER report? Cannot see on Care Everywhere. * Telephone Encounter - Lexy Diaz LPN - 08/23/2021 8:58 AM EST Patient returned call and went over notes from Dr Evans. Patient was told to schedule appt with pain management for injection L 5 area, her pain management is Dr Villalta, appt scheduled for 09/13/2021. She is taking OTC ibuprofen every 6 hours not really helping her pain at all. Patient uses [facility] for her pharmacy. * Telephone Encounter - Radha Kee RN - 08/23/2021 8:48 AM EST Called and left a voicemail for the Patient with providers message, to call back and ask for a nurse to answer provider questions. Radha Kee RN * Telephone Encounter - Dino Evans MD - 08/21/2021 8:02 PM EST See how patient is doing. What was [...] MRI/Spine Lumbar W/WO Contrast CC: Dr. Dino Evans MD; Dr. Mike Verdin, DO ~ [place]: Signed See if any plans for further evaluation or treatment for above. Also if any meds prescribed for thepain. * Telephone Encounter - Lexy Diaz LPN - 08/12/2021 2:47 PM EST Patient calling asking for something for her lower back sciatica type pain radiates down left leg to her foot. Patient said she has been falling. Her pain management Dr will not prescribe anything, only does injections which she said is not helping. Patient said she has been taking tylenol and advil. She had seen Dr Verdin at [facility] had MRI done has appt to follow up on Wednesday 08/16. Patient uses [facility] for her pharmacy. Please advise documented in this encounterThe [facility] Of [facility]04-15-2022 History of Present illness Narrative* Cande Grajeda RT(R) - 10/01/2021 1:20 PM EDT Radiology Service Progress Note PATIENT NAME: Jodie Chilel DATE OF SERVICE: October 01, 2021 TIME: 1:15 PM PATIENT IDENTITY VERIFICATION COMPLETED USING TWO (2) IDENTIFIERS: Name and Date of confirmedby patient verbally. FALL SCREENING: Has the patient had 2 falls in the last year or 1 fall with injury or currently using an Ambulatory Assistive Device (Walker, Cane, Wheelchair, Crutches, etc.)? No PATIENT GENDER DATA: Female. status: : No status: NO. PATIENT RELEVANT IMPLANT DATA REVIEWED: Not Applicable RADIOLOGY DEPARTMENT: General X-ray: Exam(s) Completed: Chest X-Ray PERIPHERAL IV DATA: Not applicable SIGNED BY: RT Lila(R) October 01, 2021 1:15 PM documented in this encounterThe University Of [facility]04-15-2022 History of Present illness Narrative* Joel Hoover MD - 10/01/2021 12:57 PM EDT Patient presents with: Cough: possible bronchitis x [...] of. She completed her 3rd/booster dose of LiveRSVP COVID-19 vaccine in August. PAST MEDICAL HISTORY Diagnosis Date Adjustment disorder with depressed mood Anxiety disorder in conditions classified elsewhere Asthma 03/31/2019 mild well controlled Degenerative disc disease, lumbar Diabetes mellitus type II Diabetic neuropathy ([facility]) 12/11/2017 feet only Endometrial cancer ([facility]) Fibromyalgia Hypothyroidism Insomnia, unspecified Lazy eye since Menopause Morbid obesity with BMI of 45.0-49.9, adult ([facility]) 03/29/2017 Schizoaffective disorder, bipolar type ([facility]) 04/14/2015 states no longer Sleep apnea CPAP occasional usage Tobacco use disorder 01/21/2021 MEDICATIONS: Current Outpatient Medications Medication Sig cyanocobalamin (VITAMIN B-12) 1,000 mcg tab Take 1 tablet by mouth once daily. atorvastatin (LIPITOR) 10 mg tablet Take 1 tablet by mouth once daily. For cholesterol. flash glucose sensor (FREESTYLE JALIL 14 DAY [...] LITE STRIPS) test strip Test blood sugar(s) 1- 2 times daily. Dx: e11.65, Z79.4. Insulin: yes COMPOUNDED PRESCRIPTION Diabetic Shoes--fitted with inserts for flat feet, 1 pair Diagnosis: (M21.41, M21.42) Pes planus of both feet ; (E11.40) Controlled type 2 diabetes mellitus with diabetic neuropathy, without long-term current use of insulin ([facility]) flash glucose scanning reader (FREESTYLE JALIL 14 [...] pain, shortness of breath, and lethargy; in theER if severe. Joel Hoover MD documented in this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 right elbow and right knee Informant: patient Occured/Mechanism Occurred: Hours Mechanism/Context: Yes same level fall and Yes trip Usually ambulates: Without assistance Pain/Injury Location: Right elbow and right knee Current Severity: Mild Maximum Severity: Moderate Worsened by: Movement of right upper extremity Relieved by: Remaining Associated Symptoms Associated Symptoms: Negative for Parasthesias, Weakness, Loss of function, Inability to ambulate, Loss of consciousness or Amnesia Narrative Narrative: Patient is a 52-year-old woman who had a fall. She presents with injury to her right knee and right elbow. Tetanus is up-to-date. She denies head trauma. Denies loss of conscious. She denies being dazed. She is not on anticoagulant. She denies change in vision. She denies ringing or ears or decreased hearing. She denies neck pain. She denies paresthesia, anesthesia motors. She states the scars on her right forearm are due to complications from infected spider bite patient has had prior surgery right knee. She does not know what was done. She is able to bear weight. Tetanus Immunization: 5-10 years Prior similar symptoms: No Recent Illness/Hospitalization: No PFSH PFSH Medical History Alcohol use Anxiety Arthritis Asthma Bipolar disorder CPAP (continuous positive airway pressure) dependence Depression Diabetes mellitus type 2 in obese Endometrial polyp High cholesterol History of stress test Hypertension Hypothyroidism Injury of back Migraine headache Sleep apnea Smoker Wears glasses Home Medications atorvastatin 10 mg tablet 10 mg PO QHS cholesterol lowering 02/27/16 [History Last Taken 09/04/18 11:00] levothyroxine 25 mcg tablet 25 mcg PO DAILY thyroid 02/27/16 [History Last Taken 01/28/21 08:00] albuterol sulfate 90 mcg/actuation aerosol inhaler (ProAir HFA) 2 puff inhalation Q4H PRN PRN shortness of breath 03/23/18 [History Last Taken 08/29/18 15:00] metformin 1,000 mg tablet 1,000 mg PO BID blood sugar 03/23/18 [History Last Taken 09/04/18 22:00] insulin glargine 100 unit/mL (3 mL) subcutaneous pen 14 unit SQ BREAKFAST 05/10/19 [History Last Taken Unknown] lamotrigine 25 mg tablet (Lamictal) 150 mg PO DAILY 05/10/19 [History Last Taken 01/28/21 08:00] alpha lipoic acid 600 mg capsule 600 mg PO DAILY 01/21/21 [History Last Taken Unknown] buspirone 10 mg tablet 10 mg PO BID 01/21/21 [History Last Taken Unknown] carbamazepine 300 mg capsule,extended release [id number] 600 mg PO QHS 01/21/21 [History Last Taken Unknown] ipratropium bromide 17 mcg/actuation HFA aerosol inhaler (Atrovent HFA) 1 inh inhalation DAILY 01/21/21 [History Last Taken Unknown] trazodone 300 mg tablet 300 mg PO QHS 01/21/21 [History Last Taken Unknown] vitamin B12 1 mg-folic acid 0.8 mg tablet 1 tab PO DAILY 01/21/21 [History Last Taken Unknown] cyclobenzaprine 10 mg tablet 10 mg PO TID PRN Muscle Spasm #20 TABLETS 06/15/21 [Rx Last Taken Unknown] Allergy/AdvReac Type Severity Reaction Status Date / Time latex Allergy Hives Verified 01/19/23 08:02 hydromorphone [From Dilaudid] AdvReac Vomiting Verified 01/19/23 08:02 Surgical History History of back surgery History of cholecystectomy Hx of appendectomy Previous back surgery Social History Smoking Status: Current every day smoker tobacco type: cigarettes substance use type: does not use ROS ROS ED Constitutional Constitutional ED: Denies chills, fever(s) or subjective Eyes Eyes: Denies blurry vision, change in vision or diplopia Cardiovascular Cardiovascular: Denies chest pain or palpitations Respiratory/Chest Respiratory/Chest: Denies dyspnea Gastrointestinal Gastrointestinal: Denies nausea or vomiting Integumentary Reports other Details: Abrasion right knee and right forearm Neurologic Neurologic: Denies headache(s), paresthesias or weakness Psychiatric Psychiatric: Denies anxiety or depression Hematologic/Lymphatic Hematologic/Lymphatic: Denies easy bleeding or easy bruising EXAM Physical Exam Const Vital Signs: 01/19/23 08:02 Temperature 97.4 F L Temperature Source Temporal Pulse Rate 93 Respiratory Rate 14 Blood Pressure 143/95 H Blood Pressure Mean 111 Pulse Ox 100 Positive well nourished, well developed and obese General Appearance ED: well developed and NAD Nutritional Appearance: obese HEENT Reports normocephalic and TM's normal bilaterally HEENT Narrative: Is no septal deviation hematoma. atraumatic Eyes PERRL and EOMs intact bilaterally General Eye ED: Negative for pale conjunctiva or scleral icterus Neck full ROM, no lymphadenopathy and supple Resp normal respiratory effort, no retractions and clear to auscultation bilaterally Cardio regular rate, regular rhythm, S1 normal heart sound, S2 normal heart sound and no murmurs Back/Spine no CVA tenderness Cervical Spine: Negative for cervical spine tenderness Lumbar Spine / Lower Back: Negative for lumbar spinal tenderness Extremity Extremity Narrative: He has an abrasion dorsal radial proximal right forearm. There is pain ovation over the lateral and medial epicondyle. There is pain ovation of olecranon process. There is no pain the patient over the radial head. Axillary, median, radial and ulnar function intact. Scars noted due to complication from spider bite requiring extensive incision and drainage. There is an abrasion noted overthe right patella. The patella is not ballotable. Is no effusion. There is nojoint line tenderness. There is no laxity varus valgus stress testing. Bev's test is negative. Modified [place]'s test is negative. DP pulses palpable. She is able to extend to 180 degrees and flex to 90 degrees. There is no fullness or pain in the popliteal fossa. Neuro oriented x3, CN's II-XII intact bilaterally and moves all extremities Psych mental status grossly normal Skin Trauma: abrasion MDM MDM MDM Narrative Medical decision making narrative: X-ray of the elbow was obtained to evaluate for contusion versus fracture. Based on the [place] knee rule imaging of the knee is not required. Tetanus is up-to-date. Radiography Chest X-Ray - ED: Read by ED Physician (3 View x-ray of the elbow reveals no evidence of fracture. There is no anterior posterior fat pad. There is no foreign body noted. This was implanted reviewed and interpreted by me.) Diagnostic Testing: Clinical Impression(s) from Imaging Studies Elbow X-Ray 01/19/23 08:28 IMPRESSION: Normal x-ray examination of the elbow. Electronically Signed: Wayne Cooper MD at 8:40 EDT , Discharge Plan Triage Chief Complaint: Fall ED Provider: Mathew Santiago Dx/Rx/DC Orders Clinical Impression: Injury due to fall, Abrasion, right knee, initial encounter, Contusion of rightelbow, initial encounter, Abrasion of right forearm, initial encounter, Contusion of right knee, initial encounter Instructions: ED Abrasion, ED Contusion, Elbow, ED Contusion, Lower Extremity Prescriptions: No Action atorvastatin 10 MG tablet 10 mg PO QHS levothyroxine 25 MCG tablet 25 mcg PO DAILY metformin 1,000 MG tablet 1,000 mg PO BID albuterol sulfate [ProAir HFA] 1 PUFF inhaler 2 puff inhalation Q4H PRN PRN (Reason: shortness of breath) lamotrigine [Lamictal] 25 MG tablet 150 mg PO DAILY Patient Comments: TAKE 1 TABLET BY MOUTH EVERY DAY X2WKS THEN INCREASE TO 2TABS DAILY THEREAFTER insulin glargine 100 UNIT/ML insulin pen 14 unit SQ BREAKFAST buspirone 10 mg tablet 10 mg PO BID Patient Comments: TAKE 1 TABLET BY MOUTH TWICE A DAY trazodone 300 mg tablet 300 mg PO QHS Patient Comments: TAKE 1 TABLET BY MOUTH EVERY DAY AT BEDTIME NEEDED vitamin [id number] acid 1-0.8 mg Tablet 1 tab PO DAILY carbamazepine 300 mg Capsule, Er Multiphase 12 Hr 600 mg PO QHS Atrovent HFA 17 mcg/actuation Hfa Aerosol Inhaler 1 inh INHALATION DAILY alpha lipoic acid 600 mg capsule 600 mg PO DAILY Patient Comments: TAKE 1 CAPSULE BY MOUTH EVERY DAY cyclobenzaprine [cyclobenzaprine] 10 MG tablet 10 mg PO TID PRN (Reason: Muscle Spasm) Qty: 20 0RF Primary Care Provider: Dino Evans Referrals: Dino Evans MD [Primary Care Provider] - 1 Week if not improving Activity Restrictions/Additional Instructions: 1. Apply bacitracin ointment to the abrasions 3 times a day for the next 5 days 2. Apply ice to areas of discomfort 6-10 times a day 3. Take Tylenol for pain Disposition Disposition: Home, Self Care What to do if you have Problems For any increased pain, shortness of breath, bleeding, nausea or vomiting, chestpain, or any unexpected problems, contact your Primary Care Provider. Call [facility] ([phone]) or report to the closest Emergency Room. Call 911 if necessary. 01/19/23 0956 <Electronically signed by Mathew Santiago MD> Cosigner Signature (if applicable): CC: Dr. Dino Evans MD ~ Signed [facility] Work Phone: Evaluation note* Diagnosis Cough- Primary Asthma with acute exacerbation, unspecified asthma severity, unspecified whether persistent documented in this encounter [facility] note* Diagnosis Encounter for screening mammogram for breast cancer documented in this encounter [facility] noteNo assessment information [facility]al[facility] Work Phone: Evaluation note* Diagnosis Screening for diabetic retinopathy- Primary Screening for other eye conditions Encounter for immunization Need for other specified prophylactic vaccination against single bacterial disease Asthma Unspecified asthma Screening for colon cancer Special screening for malignant neoplasms, colon Encounter for screening for lung cancer Controlled type 2 diabetes mellitus with diabetic neuropathy, without long-term current use of insulin (HCC) Vitamin D deficiency Unspecified vitamin D deficiency Acquired hypothyroidism Unspecified hypothyroidism Schizoaffective disorder, bipolar type (HCC) Schizoaffective disorder, unspecified condition Uncomplicated asthma, unspecified asthma severity, unspecified whether persistent documented in this encounter [facility] note* Diagnosis Type 2 diabetes mellitus with hyperglycemia, with long-term current use of insulin (HCC)- Primary Controlled type 2 diabetes mellitus with diabetic neuropathy, without long-term current use of insulin (HCC) documented in this encounter [facility] note* Diagnosis Type 2 diabetes mellitus with diabetic neuropathy, with long-term current use of insulin (HCC) documented in this encounter [facility] note* Diagnosis Type 2 diabetes mellitus with [...] comorbidity present (HCC) documented in this encounter [facility] note* Diagnosis Type 2 diabetes mellitus with diabetic neuropathy, with long-term current use of insulin (HCC)- Primary Encounter for immunization Need for other [...] disorder, unspecified condition [facility] Diagnosis Controlled type 2 diabetes mellitus with diabetic neuropathy, without long-term current use of insulin (HCC)- Primary [facility] Diagnosis Controlled type 2 diabetes mellitus with diabetic neuropathy, without long-term current use of insulin (HCC)- Primary [facility] Diagnosis Endometrial cancer (HCC)- Primary Malignant neoplasm of corpus uteri, except isthmus [facility] Diagnosis Asthma with acute exacerbation, unspecified asthma severity, unspecified whether persistent Acquired hypothyroidism Unspecified hypothyroidism Hypercholesteremia Pure hypercholesterolemia [facility] Diagnosis Asthma with acute exacerbation, unspecified asthma severity, unspecified whether persistent [facility] Diagnosis Acquired hypothyroidism Unspecified hypothyroidism [facility] Diagnosis Controlled type 2 diabetes with neuropathy (HCC)- Primary Type II or unspecified type diabetes mellitus with neurological manifestations, not stated as uncontrolled [facility] Diagnosis Type 2 diabetes mellitus with diabetic neuropathy, with long-term current use of insulin ([facility]) documented in this encounter [facility] note* Diagnosis JAELYN (obstructive sleep apnea)- Primary Obstructive sleep apnea (adult) (pediatric) Controlled type 2 diabetes mellitus with diabetic neuropathy, without long-term current use of insulin ([facility]) Encounter for immunization Need for other specified prophylactic vaccination against single bacterial disease [facility] Diagnosis URI, acute- Primary Acute upper respiratory infections of unspecified site [facility] Diagnosis JAELYN (obstructive sleep apnea)- Primary Obstructive sleep apnea (adult) (pediatric) Intolerance of continuous positive airway pressure (CPAP) ventilation Primary insomnia Persistent disorder of initiating or maintaining sleep [facility] Diagnosis Encounter for screening mammogram for breast cancer [facility] Diagnosis New daily persistent headache [facility] Diagnosis Hypomagnesemia- Primary Disorders of magnesium metabolism Type 2 diabetes mellitus with diabetic neuropathy, with long-term current use of insulin (HCC) Controlled type 2 diabetes mellitus with diabetic neuropathy, without long-term current use of insulin (HCC) New daily persistent headache [facility] Diagnosis Type 2 diabetes mellitus with diabetic neuropathy, with long-term current use of insulin (HCC) Controlled type 2 diabetes mellitus with diabetic neuropathy, without long-term current use of insulin (HCC) [facility] Diagnosis Type 2 diabetes mellitus with diabetic neuropathy, with long-term current use of insulin (HCC) Controlled type 2 diabetes mellitus with diabetic neuropathy, without long-term current use of insulin (HCC) documented [facility]* Diagnosis Hypercholesteremia Pure hypercholesterolemia [facility]* Diagnosis Controlled type 2 diabetes mellitus with diabetic neuropathy, without long-term current use of insulin (HCC) documented [facility] this encounter [facility]* Diagnosis Cough [facility] this [facility] Diagnosis Cough [facility]* Diagnosis Encounter for screening mammogram for breast cancer [facility]* Diagnosis Schizoaffective disorder, bipolar type (HCC)- Primary Schizoaffective disorder, unspecified condition Diabetic neuropathy (HCC) Type II or unspecified type diabetes mellitus with neurological manifestations, not stated as uncontrolled Screening for diabetic retinopathy Screening for other eye conditions Asthma Unspecified asthma Screening for depression Encounter for screening examination for other mental health and behavioral disorders Encounter for immunization Need for other specified prophylactic vaccination against single bacterial disease Screening for colon cancer Special screening for malignant neoplasms, colon Acquired hypothyroidism Unspecified hypothyroidism Controlled type 2 diabetes mellitus with diabetic neuropathy, without long-term current use of insulin (HCC) Tobacco use disorder [facility] Additional Instructions CT brain negative. 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 Discussed with your doctor about increasing your Lyrica. Take Valium as prescribed. You have pending MRI orders from your neurologist. Refills through your doctor.[facility] Work Phone: Hospital Discharge instructionsAmbulatory Orders* Orthopedics Location: None [facility] Work Phone: Reason for referral (narrative)* Diagnostic Procedure Only (Routine) - Pending Review Specialty Diagnoses / Procedures Referred By Kailyn caballero Referred To Contact [facility] Diagnoses Encounter for screening mammogram for breast cancer Procedures SARKIS SCREENING SCREENING MAMMOGRAPHY BI 2-VIEW BREAST INC Dino Browne MD [address] [place] [address] [facility] [address] [place] [address] Referral ID Status Reason Start Date Expiration Date Visits Requested Visits Authorized [id number] Pending Review Auto-Generat ed Referral 12/08/2021 01/07/2023 1 1 [facility] for referral (narrative)* Outpatient Procedure (Routine) - Pending Review Specialty Diagnoses / Procedures Referred By Kailyn caballero [facility] Diagnoses Tachycardia Procedures ECG COMPLETE ECG ROUTINE ECG W/LEAST 12 LDS W/I&R Dino Evans MD [address] [place] [address] [facility] [place] [address] [place] [address] Referral ID Status Reason Start Date Expiration Date Visits Requested Visits Authorized [id number] Pending Review Auto-Generat ed Referral 09/16/2022 09/16/2023 1 1 [facility] for referral (narrative)* Diagnostic Procedure Only (Routine) - Authorized Specialty Diagnoses / Procedures Referred By Kailyn caballero Referred To Contact [facility] Diagnoses Encounter for screening mammogram for breast cancer Procedures SARKIS SCREENING SCREENING MAMMOGRAPHY BI 2-VIEW BREAST INC Dino Browne MD [address] [place] [address] [facility] [address] [place] [address] Referral ID Status Reason Start Date Expiration Date Visits Requested Visits Authorized [id number] Authorized Auto-Generat ed Referral 07/05/2023 08/03/2024 1 1 Y [facility] for referral (narrative)* Diagnostic Procedure Only (Routine) - New Request Specialty Diagnoses / Procedures Referred By Contcaty t Referred To Contact [facility] Diagnoses Encounter for screening mammogram for breast cancer Procedures SARKIS SCREENING W FELECIA SCREENING DIGITAL BREAST TOMOSYNTHESIS BI SCREENING MAMMOGRAPHY BI 2-VIEW BREAST INC CAD Dino Evans MD [address] [place] [address] [facility] [address] [place] [address] Referral ID Status Reason Start Date Expiration Date Visits Requested Visits Authorized [id number] New Request Auto-Generat ed Referral 07/12/2025 1 1 Y [facility] for referral (narrative)No reason for referral information availableWSalem [facility] Work Phone: Summary Purpose Family History No Family History Records Found Relationship Condition Age at Onset Recorded Date/T mariya Unknown Family History?Diabe blaise, Heart Disease Unknown September 05, 2018 4:50am Family History?Diabe blaise, Heart Disease Unknown September 05, 2018 4:50am Family History?Heart Disease Unknown September 05, 2018 4:50am Relationship Condition Age at Onset Recorded Date/T mariya Unknown Family History?Diabe blaise, Heart Disease Unknown September 05, 2018 4:50am Family History?Heart Disease Unknown March 23, 2018 1:42pm Family History?Heart Disease Unknown September 05, 2018 4:50am Relationship Condition Age at Onset Recorded Date/T mariya Unknown Family History?Diabe blaise, Heart Disease Unknown September 05, 2018 3:50am Family History?Heart Disease Unknown March 23, 2018 12:42pm Family History?Heart Disease Unknown September 05, 2018 3:50am Relationship Condition Age at Onset Recorded Date/T mariya mother Cardiac disease Unknown Diabetes mellitus Unknown Chronic obstructive pulmonary disease Unk nown father Cardiac disease Unknown Advance Directives No Advanced Directives Records FoundDocuments on File Type Date Recorded Patient Nutrition Internship Expl anation Advance Directive(s) 03/08/2021 12:12 PM Documents on File Type Date Recorded Patient Nutrition Internship Expl anation Advance Directive(s) 03/08/2021 12:12 PM Advance Directive Response Recorded Date/ Time Living Will No December 27, 2021 9:10pm Power of Lpta No December 27 9:10pm Advance Directive Response Recorded Date/ Time Living Will No January 19, 2023 9:59am Power of Lpta No January 19 9:59am Advance Directive Response Recorded Date/ Time Living Will No August 05, 2 024 12:45pm Power of Lpta No August 05, 2023 12:45pm Advance Directive Response Recorded Date/ Time Living Will No August 05, 2 024 1:45pm Power of Lpta No August 05, 2023 1:45pm Advance Directive Response Recorded Date/ Time Living Will No May 31, 2 024 6:39pm Power of Lpta No May 31, 2024 6:39pm Living Will No June 15, 2 024 10:00am Power of Lpta No June 15, 2024 10:00am Living Will No July 22 4:33pm Power of Lpta No July 22, 2024 4:33pm Living Will No September 02, 2024 4:10pm Power of Lpta No September 02 4:10pm Advance Directive Response Recorded Date/ Time Living Will No May 31, 2 024 6:39pm Do you have a Healthcare Power of Lpta? No May 31, 2024 6:39pm Living Will No June 15, 024 10:00am Do you have a Healthcare Power of Lpta? No June 15, 2024 10:00am Living Will No July 22 4:33pm Do you have a Healthcare Power of Lpta? No July 22, 2024 4:33pm Living Will No September 02, 2024 4:10pm Do you have a Healthcare Power of Lpta? No September 02, 2024 4:10pm Advance Directive Response Recorded Date/ Time Living Will No July 22 4:33pm Do you have a Healthcare Power of Lpta? No July 22, 2024 4:33pm Living Will No September 02, 2024 4:10pm Do you have a Healthcare Power of Lpta? No September 02, 2024 4:10pm Do you have a Healthcare Power of Lpta? No November 08, 2024 9:01pm Advance Directive Response Recorded Date/ Time Living Will No September 02, 2024 4:10pm Do you have a Healthcare Power of Lpta? No September 02, 2024 4:10pm Do you have a Healthcare Power of Lpta? No November 08, 2024 9:01pm Health Concerns Infection Onset Date Last Indicated Resolved Time COVID-19 Rule-Out 10/01/2021 10/01/2021 Infection Onset Date Last Indicated Resolved Time COVID-19 Rule-Out 10/01/2021 10/01/2021 10/02/2021 2:49 AM EDT Chief Complaint and Reason for Visit Chief Complaint HYPERGLYCEMIA BACK PAIN Chief Complaint FALL Chief Complaint FALL JAELYN Chief Complaint HYPERGLYCEMIA Chief Complaint HYPERGLYCEMIA SCREENING Chief Complaint Admit Date R HAND INJURY May 31, 2024 5:33pm LEFT WRIST June 15, 2024 8:58am SWELLING RUE June 15, 2024 11:42am BILATERAL WRISTS June 21, 2024 10 :17am Room 1 June 21, 2024 10 :35am headache July 22, 2024 2 :06pm Migraines August 13, 2024 9:34am NECK PAIN September 02, 2024 1:4 5pm Reason for Visit Admit Date Bilateral wrist pain June 21, 2024 1 0:17am Cervicalgia August 13, 2024 9:34am Orthostatic headache August 13, 2024 9:34am Chief Complaint Admit Date R HAND INJURY May 31, 2024 5:33pm LEFT WRIST June 15, 2024 8:58am SWELLING RUE June 15, 2024 11:42am BILATERAL WRISTS June 21, 2024 10 :17am Room 1 June 21, 2024 10 :35am headache July 22, 2024 2 :06pm Migraines August 13, 2024 9:34am NECK PAIN September 02, 2024 1:4 5pm 1 1/2 MONTH FU September 10, 2024 9:5 4am SEVERE HEADACHES September 14, 2024 7:0 5am Reason for Visit Admit Date Bilateral wrist pain June 21, 2024 1 0:17am Cervicalgia August 13, 2024 9:34am Orthostatic headache August 13, 2024 9:34am Cervicalgia September 10, 2024 9:5 4am Chief Complaint Admit Date R HAND INJURY May 31, 2024 5:33pm LEFT WRIST June 15, 2024 8:58am SWELLING RUE June 15, 2024 11:42am BILATERAL WRISTS June 21, 2024 10 :17am Room 1 June 21, 2024 10 :35am headache July 22, 2024 2 :06pm Migraines August 13, 2024 9:34am NECK PAIN September 02, 2024 1:4 5pm 1 1/2 MONTH FU September 10, 2024 9:5 4am SEVERE HEADACHES September 14, 2024 7:0 5am SCREENING September 23, 2024 12:2 4pm Chief Complaint Admit Date headache July 22, 2024 2 :06pm Migraines August 13, 2024 9:34am NECK PAIN September 02, 2024 1:4 5pm 1 1/2 MONTH FU September 10, 2024 9:5 4am SEVERE HEADACHES September 14, 2024 7:0 5am SCREENING September 23, 2024 12:2 4pm 1 M FU October 02, 2024 11: 23am FASTING October 11, 2024 9:4 7am abd November 08, 2024 8:47p m BUE; CERVICALGIA November 12, 2024 9:00a m BUE; CERVICALGIA November 12, 2024 10:17 am Reason for Visit Admit Date Cervicalgia August 13, 2024 9:34am Orthostatic headache August 13, 2024 9:34am Cervicalgia September 10, 2024 9:5 4am Cervicalgia October 02, 2024 11: 23am Numbness and tingling in right hand Apri l 2024 11:23am Persistent headaches October 02, 2024 11 :23am Chief Complaint Admit Date Migraines August 13, 2024 9:34am NECK PAIN September 02, 2024 1:4 5pm 1 1/2 MONTH FU September 10, 2024 9:5 4am SEVERE HEADACHES September 14, 2024 7:0 5am SCREENING September 23, 2024 12:2 4pm 1 M FU October 02, 2024 11: 23am FASTING October 11, 2024 9:4 7am abd November 08, 2024 8:47p m BUE; CERVICALGIA November 12, 2024 9:00a m BUE; CERVICALGIA November 12, 2024 10:17 am ACUTE VISIT/ ARM PAIN/TEST RESULTS November 20, 2024 9:56am RIGHT SHOULDER November 26, 2024 9:29 am room 2 November 26, 2024 9:34 am Reason for Visit Admit Date Cervicalgia August 13, 2024 9:34am Orthostatic headache August 13, 2024 9:34am Cervicalgia September 10, 2024 9:5 4am Cervicalgia October 02, 2024 11: 23am Numbness and tingling in right hand Apri l 2024 11:23am Persistent headaches October 02, 2024 11 :23am Right shoulder pain November 20, 2024 9:56a m Right shoulder pain November 26, 2024 9:29 am Reason for Visit Admit Date Cervicalgia August 13, 2024 9:34am Orthostatic headache August 13, 2024 9:34am Cervicalgia September 10, 2024 9:5 4am Cervicalgia October 02, 2024 11: 23am Numbness and tingling in right hand Apri l 2024 11:23am Persistent headaches October 02, 2024 11 :23am Right shoulder pain November 20, 2024 9:56a m Adhesive bursitis of right shoulder November 26, 2024 9:29am Diabetes November 26, 2024 9:29 am Right shoulder pain November 26, 2024 9:29 am Chief Complaint Admit Date Migraines August 13, 2024 9:34am NECK PAIN September 02, 2024 1:4 5pm 1 1/2 MONTH FU September 10, 2024 9:5 4am SEVERE HEADACHES September 14, 2024 7:0 5am SCREENING September 23, 2024 12:2 4pm 1 M FU October 02, 2024 11: 23am FASTING October 11, 2024 9:4 7am abd November 08, 2024 8:47p m BUE; CERVICALGIA November 12, 2024 9:00a m BUE; CERVICALGIA November 12, 2024 10:17 am ACUTE VISIT/ ARM PAIN/TEST RESULTS November 20, 2024 9:56am Reason for Visit Admit Date Cervicalgia August 13, 2024 9:34am Orthostatic headache August 13, 2024 9:34am Cervicalgia September 10, 2024 9:5 4am Cervicalgia October 02, 2024 11: 23am Numbness and tingling in right hand Apri l 2024 11:23am Persistent headaches October 02, 2024 11 :23am Cervicalgia November 20, 2024 9:56a m Numbness and tingling in right hand November 20, 2024 9:56am Pain November 20, 2024 9:56a m Right shoulder pain November 20, 2024 9:56a m Reason for Referral Specialty Diagnoses / Procedures Referred By Kailyn caballero Referred To Contact Podiatry Diagnoses Controlled type 2 diabetes mellitus with diabetic neuropathy, without long-term current use of insulin (HCC) Procedures CONSULT TO PODIATRY OFFICE/OUTPATIENT [facility] 60-74 MINUTES Nacho Cornell, ALINA.DRESSMAKER HELPER [address] [place] [address] Referral ID Status Reason Start Date Expiration Date Visits Requested Visits Authorized [id number] Authorized PCP Requested Referral 01/24/2022 01/24/2023 1 1 Specialty Diagnoses / Procedures Referred By Kailyn caballero Referred To Contact Ophthalmology Diagnoses Screening for diabetic retinopathy Procedures CONSULT TO OPHTHALMOLOGY OFFICE/OUTPATIENT [facility] 60-74 MINUTES Nacho Cornell, ALINA.DRESSMAKER HELPER [address] [place] [address] Referral ID Status Reason Start Date Expiration Date Visits Requested Visits Authorized [id number] Authorized PCP Requested Referral 01/24/2022 01/24/2023 1 1 Specialty Diagnoses / Procedures Referred By Kailyn caballero Referred [facility] Diagnoses Asthma Procedures SPIROMETRY - BASELINE AND POST DILATOR BRNCDILAT RSPSE SPMTRY PRE&POST-BRNCDILAT ADMN Nacho Cornell APRN.DRESSMAKER HELPER [address] [place] [address] Respiratory [place] [address] [place] [address] Referral ID Status Reason Start Date Expiration Date Visits Requested Visits Authorized [id number] Pending Review Auto-Generat ed Referral 01/24/2022 02/23/2023 1 1 Specialty Diagnoses / Procedures Referred By Contac t Referred To Contact Diagnoses Type 2 diabetes mellitus with hyperglycemia, with long-term current use of insulin (HCC) Procedures CONSULT TO DIABETES EDUCATION OFFICE/OUTPATIENT [facility] 60-74 MINUTES Nacho Cornell, LICSW.DRESSMAKER HELPER [address] [place] [address] [facility] [address] [place] [address] Referral ID Status Reason Start Date Expiration Date Visits Requested Visits Authorized [id number] Authorized PCP Requested Referral 02/01/2022 02/01/2023 1 1 Specialty Diagnoses / Procedures Referred By Contac t Referred To Contact Nacho Cornell, LICSW.DRESSMAKER HELPER [address] [place] [address] Referral ID Status Reason Start Date Expiration Date V isits Requested Visits Authorized [id number] Pending Review 1 1 Referral ID Status Reason Start Date Expiration Date Visits Re quested Visits Authorized [id number] Closed 1 1 Referral ID Status Reason Start Date Expiration Date Visits Re quested Visits Authorized [id number] Closed 1 1 Specialty Diagnoses / Procedures Referred By Contac t Referred To Contact Diagnoses JAELYN (obstructive sleep apnea) Procedures CONSULT TO SLEEP MEDICINE - ADULT OFFICE/OUTPATIENT [facility] 60-74 MINUTES Nacho Cornell, LICSW.DRESSMAKER HELPER [address] [place] [address] Referral ID Status Reason Start Date Expiration Date Visits Requested Visits Authorized [id number] Authorized PCP Requested Referral 3 04/05/2024 1 1 Specialty Diagnoses / Procedures Referred By Contac t Referred To Contact [facility] Diagnoses New daily persistent headache Procedures MRI BRAIN WO/W IVCON MRI BRAIN BRAIN STEM W/O W/CONTRAST MATERIAL Saima Mittal LICSW.CIVIL ENGINEERING ASSISTANT [address] [place] [address] [place] [address] Referral ID Status Reason Start Date Expiration Date V isits Requested Visits Authorized [id number] Closed Auto-Generate d Referral 07/06/2023 09/04/2023 1 1 Specialty Diagnoses / Procedures Referred By Contac t Referred To Contact Diagnoses Type 2 diabetes mellitus with diabetic neuropathy, with long-term current use of insulin (HCC) Controlled type 2 diabetes mellitus with diabetic neuropathy, without long-term current use of insulin ([facility]) Dino Evans MD [address] [place] [address] Referral ID Status Reason Start Date Expiration Date Visits Re quested Visits Authorized [id number] Closed 1 1 Additional Source Comments INFORMATION SOURCE (unrecogn ized section and content) DATE CREATED AUTHOR 12/12/2017 [facility] DATE CREATED AUTHOR AUTHOR'S ORGANIZ ATION 02/01/2019 [facility] [facility] DATE CREATED AUTHOR AUTHOR'S ORGANIZ ATION 04/26/2019 [facility] ([place]) DATE CREATED AUTHOR AUTHOR'S ORGANIZ ATION 04/15/2021 [facility] DATE CREATED AUTHOR AUTHOR'S ORGANIZ ATION 03/28/2023 [facility] DATE CREATED AUTHOR AUTHOR'S ORGANIZ ATION 06/16/2024 [facility] DATE CREATED AUTHOR AUTHOR'S ORGANIZ ATION 12/08/2024 [facility] DATE CREATED AUTHOR AUTHOR'S ORGANIZ ATION 12/08/2024 [facility] Comments (unrecognize d section and content) In the event this informatio n is protected by the Federal Confidentiality of Alcohol and Drug Abuse Patient Records regulations: The Federal rules restrict any use of the information to criminally investigate or prosecute any alcohol or drug abuse patient.[facility] the event this information is protected by the Federal Confidentiality of Alcohol and Drug Abuse Patient Records regulations: The Federal rules restrict any use of the information to criminally investigate or prosecute any alcohol or drug abuse patient.[facility] CenterIn the event this information is protected by the Federal Confidentiality of Alcohol and Drug Abuse Patient Records regulations: The Federal rules restrict any use of the information to criminally investigate or prosecute any alcohol or drug abuse patient.[facility] CenterIn the event this information is protected by the Federal Confidentiality of Alcohol and Drug Abuse Patient Records regulations: The Federal rules restrict any use of the information to criminally investigate or prosecute any alcohol or drug abuse patient.[facility] CenterIn the event this information is protected by the Federal Confidentiality of Alcohol and Drug Abuse Patient Records regulations: The Federal rules restrict any use of the information to criminally investigate or prosecute any alcohol or drug abuse patient.[facility] CenterIn the event this information is protected by the Federal Confidentiality of Alcohol and Drug Abuse Patient Records regulations: The Federal rules restrict any use of the information to criminally investigate or prosecute any alcohol or drug abuse patient.[facility] CenterIn the event this information is protected by the Federal Confidentiality of Alcohol and Drug Abuse Patient Records regulations: The Federal rules restrict any use of the information to criminally investigate or prosecute any alcohol or drug abuse patient.[facility] CenterIn the event this information is protected by the Federal Confidentiality of Alcohol and Drug Abuse Patient Records regulations: The Federal rules restrict any use of the information to criminally investigate or prosecute any alcohol or drug abuse patient.[facility] CenterIn the event this information is protected by the Federal Confidentiality of Alcohol and Drug Abuse Patient Records regulations: The Federal rules restrict any use of the information to criminally investigate or prosecute any alcohol or drug abuse patient.[facility] CenterIn the event this information is protected by the Federal Confidentiality of Alcohol and Drug Abuse Patient Records regulations: The Federal rules restrict any use of the information to criminally investigate or prosecute any alcohol or drug abuse patient.[facility] CenterIn the event this information is protected by the Federal Confidentiality of Alcohol and Drug Abuse Patient Records regulations: The Federal rules restrict any use of the information to criminally investigate or prosecute any alcohol or drug abuse patient.[facility] CenterIn the event this information is protected by the Federal Confidentiality of Alcohol and Drug Abuse Patient Records regulations: The Federal rules restrict any use of the information to criminally investigate or prosecute any alcohol or drug abuse patient.[facility] CenterIn the event this information is protected by the Federal Confidentiality of Alcohol and Drug Abuse Patient Records regulations: The Federal rules restrict any use of the information to criminally investigate or prosecute any alcohol or drug abuse patient.[facility] CenterIn the event this information is protected by the Federal Confidentiality of Alcohol and Drug Abuse Patient Records regulations: The Federal rules restrict any use of the information to criminally investigate or prosecute any alcohol or drug abuse patient.[facility] CenterIn the event this information is protected by the Federal Confidentiality of Alcohol and Drug Abuse Patient Records regulations: The Federal rules restrict any use of the information to criminally investigate or prosecute any alcohol or drug abuse patient.[facility] CenterIn the event this information is protected by the Federal Confidentiality of Alcohol and Drug Abuse Patient Records regulations: The Federal rules restrict any use of the information to criminally investigate or prosecute any alcohol or drug abuse patient.[facility] CenterIn the event this information is protected by the Federal Confidentiality of Alcohol and Drug Abuse Patient Records regulations: The Federal rules restrict any use of the information to criminally investigate or prosecute any alcohol or drug abuse patient.[facility] CenterIn the event this information is protected by the Federal Confidentiality of Alcohol and Drug Abuse Patient Records regulations: The Federal rules restrict any use of the information to criminally investigate or prosecute any alcohol or drug abuse patient.[facility] CenterIn the event this information is protected by the Federal Confidentiality of Alcohol and Drug Abuse Patient Records regulations: The Federal rules restrict any use of the information to criminally investigate or prosecute any alcohol or drug abuse patient.[facility] CenterIn the event this information is protected by the Federal Confidentiality of Alcohol and Drug Abuse Patient Records regulations: The Federal rules restrict any use of the information to criminally investigate or prosecute any alcohol or drug abuse patient.[facility] CenterIn the event this information is protected by the Federal Confidentiality of Alcohol and Drug Abuse Patient Records regulations: The Federal rules restrict any use of the information to criminally investigate or prosecute any alcohol or drug abuse patient.[facility] CenterIn the event this information is protected by the Federal Confidentiality of Alcohol and Drug Abuse Patient Records regulations: The Federal rules restrict any use of the information to criminally investigate or prosecute any alcohol or drug abuse patient.[facility] CenterIn the event this information is protected by the Federal Confidentiality of Alcohol and Drug Abuse Patient Records regulations: The Federal rules restrict any use of the information to criminally investigate or prosecute any alcohol or drug abuse patient.[facility] CenterIn the event this information is protected by the Federal Confidentiality of Alcohol and Drug Abuse Patient Records regulations: The Federal rules restrict any use of the information to criminally investigate or prosecute any alcohol or drug abuse patient.[facility] CenterIn the event this information is protected by the Federal Confidentiality of Alcohol and Drug Abuse Patient Records regulations: The Federal rules restrict any use of the information to criminally investigate or prosecute any alcohol or drug abuse patient.[facility] CenterIn the event this information is protected by the Federal Confidentiality of Alcohol and Drug Abuse Patient Records regulations: The Federal rules restrict any use of the information to criminally investigate or prosecute any alcohol or drug abuse patient.[facility] CenterIn the event this information is protected by the Federal Confidentiality of Alcohol and Drug Abuse Patient Records regulations: The Federal rules restrict any use of the information to criminally investigate or prosecute any alcohol or drug abuse patient.[facility] CenterIn the event this information is protected by the Federal Confidentiality of Alcohol and Drug Abuse Patient Records regulations: The Federal rules restrict any use of the information to criminally investigate or prosecute any alcohol or drug abuse patient.[facility] CenterIn the event this information is protected by the Federal Confidentiality of Alcohol and Drug Abuse Patient Records regulations: The Federal rules restrict any use of the information to criminally investigate or prosecute any alcohol or drug abuse patient.[facility] CenterIn the event this information is protected by the Federal Confidentiality of Alcohol and Drug Abuse Patient Records regulations: The Federal rules restrict any use of the information to criminally investigate or prosecute any alcohol or drug abuse patient.[facility] CenterIn the event this information is protected by the Federal Confidentiality of Alcohol and Drug Abuse Patient Records regulations: The Federal rules restrict any use of the information to criminally investigate or prosecute any alcohol or drug abuse patient.[facility] CenterIn the event this information is protected by the Federal Confidentiality of Alcohol and Drug Abuse Patient Records regulations: The Federal rules restrict any use of the information to criminally investigate or prosecute any alcohol or drug abuse patient.[facility] CenterIn the event this information is protected by the Federal Confidentiality of Alcohol and Drug Abuse Patient Records regulations: The Federal rules restrict any use of the information to criminally investigate or prosecute any alcohol or drug abuse patient.[facility] CenterIn the event this information is protected by the Federal Confidentiality of Alcohol and Drug Abuse Patient Records regulations: The Federal rules restrict any use of the information to criminally investigate or prosecute any alcohol or drug abuse patient.[facility] CenterIn the event this information is protected by the Federal Confidentiality of Alcohol and Drug Abuse Patient Records regulations: The Federal rules restrict any use of the information to criminally investigate or prosecute any alcohol or drug abuse patient.[facility] CenterIn the event this information is protected by the Federal Confidentiality of Alcohol and Drug Abuse Patient Records regulations: The Federal rules restrict any use of the information to criminally investigate or prosecute any alcohol or drug abuse patient.[facility] CenterIn the event this information is protected by the Federal Confidentiality of Alcohol and Drug Abuse Patient Records regulations: The Federal rules restrict any use of the information to criminally investigate or prosecute any alcohol or drug abuse patient.[facility] CenterIn the event this information is protected by the Federal Confidentiality of Alcohol and Drug Abuse Patient Records regulations: The Federal rules restrict any use of the information to criminally investigate or prosecute any alcohol or drug abuse patient.[facility] CenterIn the event this information is protected by the Federal Confidentiality of Alcohol and Drug Abuse Patient Records regulations: The Federal rules restrict any use of the information to criminally investigate or prosecute any alcohol or drug abuse patient.[facility] CenterIn the event this information is protected by the Federal Confidentiality of Alcohol and Drug Abuse Patient Records regulations: The Federal rules restrict any use of the information to criminally investigate or prosecute any alcohol or drug abuse patient.[facility] CenterIn the event this information is protected by the Federal Confidentiality of Alcohol and Drug Abuse Patient Records regulations: The Federal rules restrict any use of the information to criminally investigate or prosecute any alcohol or drug abuse patient.[facility] CenterIn the event this information is protected by the Federal Confidentiality of Alcohol and Drug Abuse Patient Records regulations: The Federal rules restrict any use of the information to criminally investigate or prosecute any alcohol or drug abuse patient.[facility] CenterIn the event this information is protected by the Federal Confidentiality of Alcohol and Drug Abuse Patient Records regulations: The Federal rules restrict any use of the information to criminally investigate or prosecute any alcohol or drug abuse patient.[facility] CenterIn the event this information is protected by the Federal Confidentiality of Alcohol and Drug Abuse Patient Records regulations: The Federal rules restrict any use of the information to criminally investigate or prosecute any alcohol or drug abuse patient.[facility] CenterIn the event this information is protected by the Federal Confidentiality of Alcohol and Drug Abuse Patient Records regulations: The Federal rules restrict any use of the information to criminally investigate or prosecute any alcohol or drug abuse patient.[facility] CenterIn the event this information is protected by the Federal Confidentiality of Alcohol and Drug Abuse Patient Records regulations: The Federal rules restrict any use of the information to criminally investigate or prosecute any alcohol or drug abuse patient.[facility] CenterIn the event this information is protected by the Federal Confidentiality of Alcohol and Drug Abuse Patient Records regulations: The Federal rules restrict any use of the information to criminally investigate or prosecute any alcohol or drug abuse patient.[facility] CenterIn the event this information is protected by the Federal Confidentiality of Alcohol and Drug Abuse Patient Records regulations: The Federal rules restrict any use of the information to criminally investigate or prosecute any alcohol or drug abuse patient.[facility] CenterIn the event this information is protected by the Federal Confidentiality of Alcohol and Drug Abuse Patient Records regulations: The Federal rules restrict any use of the information to criminally investigate or prosecute any alcohol or drug abuse patient.[facility] CenterIn the event this information is protected by the Federal Confidentiality of Alcohol and Drug Abuse Patient Records regulations: The Federal rules restrict any use of the information to criminally investigate or prosecute any alcohol or drug abuse patient.[facility] CenterIn the event this information is protected by the Federal Confidentiality of Alcohol and Drug Abuse Patient Records regulations: The Federal rules restrict any use of the information to criminally investigate or prosecute any alcohol or drug abuse patient.[facility] CenterIn the event this information is protected by the Federal Confidentiality of Alcohol and Drug Abuse Patient Records regulations: The Federal rules restrict any use of the information to criminally investigate or prosecute any alcohol or drug abuse patient.[facility] Reason for Visit (unrecogniz ed section and content) Reason Comments Patient Update Reason Comments Cough possible bronchitis x 4 [...] Request 12/12/2022 Reason Comments Diabetes 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 HIGH MDM 60-74 MINUTES Nacho Cornell, LICSW.DRESSMAKER HELPER [address] [place] [address] Referral ID Status Reason Start Date Expiration Date V isits Requested Visits Authorized [id number] Closed PCP Requested Referral 04/06/2023 04/05/2024 1 1 Specialty Diagnoses / Procedures Referred By Kailyn caballero Referred To Contact MR IMAGING Diagnoses New daily persistent headache Procedures MRI BRAIN WO/W IVCON MRI BRAIN BRAIN STEM W/O W/CONTRAST MATERIAL Saima Mittal, LICSW.CIVIL ENGINEERING ASSISTANT [address] [place] [address] [place] [address] Referral ID Status Reason Start Date Expiration Date V isits Requested Visits Authorized [id number] Closed Auto-Generate d Referral 07/06/2023 09/04/2023 1 1 Reason Comments High Blood Sugar Reason Comments Headaches Cough Diabetes Reason Comments Medication Problem Reason Onset Date Comments Refill Request 08/15/2023 Reason Comments Letter Emotional support an al Care Teams (unrecognized sec tion and content) 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 Relationship Specialty Start Date End Date Dino Evans MD [address] [facility] [place] [address] PCP - General Internal Medicine 01/15/16 [facility] [address] [facility] [place] [address] Pharmacist Pharmacy 01/28/20 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 Relationship Specialty Start Date End Date Dino Evans MD [address] [facility] [place] [address] PCP - General Internal Medicine 01/15/16 [facility] [address] [facility] [place] [address] Pharmacist Pharmacy 01/28/20 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 Relationship Specialty Start Date End Date Dino Evans MD [address] [facility] [place] [address] PCP - General Internal Medicine 01/15/16 [facility] [address] [facility] [place] [address] Pharmacist Pharmacy 01/28/20 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 Relationship Specialty Start Date End Date Dino Evans MD [address] [facility] [place] [address] PCP - General Internal Medicine 01/15/16 [facility] [address] [facility] [place] [address] Pharmacist Pharmacy 01/28/20 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 Relationship Specialty Start Date End Date Dino Evans MD [address] [facility] [place] [address] PCP - General Internal Medicine 01/15/16 [facility] [address] [facility] [place] [address] Pharmacist Pharmacy 01/28/20 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 Relationship Specialty Start Date End Date Dino Evans MD [address] [facility] [place] [address] PCP - General Internal Medicine 01/15/16 [facility], [facility] [address] [facility] [place] [address] Pharmacist Pharmacy 01/28/20 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 Relationship Specialty Start Date End Date Dino Evans MD [address] [facility] [place] [address] PCP - General Internal Medicine 01/15/16 [facility] [address] [facility] [place] [address] Pharmacist Pharmacy 01/28/20 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 Relationship Specialty Start Date End Date Dino Evans MD [address] [facility] [place] [address] PCP - General Internal Medicine 01/15/16 [place], [facility] [address] [facility] [place] [address] Pharmacist Pharmacy 01/28/20 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 Relationship Specialty Start Date End Date Dino Evans MD [address] [facility] [place] [address] PCP - General Internal Medicine 01/15/16 [facility], [facility] [address] [facility] [place] [address] Pharmacist Pharmacy 01/28/20 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 Relationship Specialty Start Date End Date Dino Evans MD [address] [facility] [place] [address] PCP - General Internal Medicine 01/15/16 [facility] [address] [place] [address] Pharmacist Pharmacy 01/28/20 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 Relationship Specialty Start Date End Date Dino Evans MD [address] [facility] [place] [address] PCP - General Internal Medicine 01/15/16 [facility] [address] [facility] [place] [address] Pharmacist Pharmacy 01/28/20 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 Relationship Specialty Start Date End Date Dino Evans MD [address] [facility] [place] [address] PCP - General Internal Medicine 01/15/16 [facility] [address] [facility] [place] [address] Pharmacist Pharmacy 01/28/20 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 Relationship Specialty Start Date End Date Dino Evans MD [address] [facility] [place] [address] PCP - General Internal Medicine 01/15/16 Braxton Modi [facility] [address] [place] [address] Pharmacy 12/14/22 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 Relationship Specialty Start Date End Date Dino Evans MD [address] [facility] [place] [address] PCP - General Internal Medicine 01/15/16 Braxton Modi [facility] [address] [place] [address] Pharmacy 12/14/22 Team Status: Active Member Role Status Dates Dr. Dino Evans MD Family Provider Active Dr. Dino Evans MD Primary Care Provider Active Team Status: Inactive Member Role Status Dates Dr. Dino Evans MD Primary Care Provider Active Dr. 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 Relationship Specialty Start Date End Date Dino Evans MD [address] [facility] [place] [address] PCP - General Internal Medicine 01/15/16 Braxton Modi, [facility] [address] [facility] [place] [address] Pharmacy 12/14/22 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 Relationship Specialty Start Date End Date Dino Evans MD [address] [facility] [place] [address] PCP - General Internal Medicine 01/15/16 Braxton Modi, [facility] [address] [facility], [place] [address] Pharmacy 12/14/22 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 Relationship Specialty Start Date End Date Dino Evans MD [address] [place] [address] PCP - General Internal Medicine 01/15/16 Braxton Modi [facility] [address] [place] [address] Pharmacy 12/14/22 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 Relationship Specialty Start Date End Date Dino Evans MD [address] [place] [address] PCP - General Internal Medicine 01/15/16 [facility] [address] [facility] [place] [address] Pharmacy 12/14/22 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 Relationship Specialty Start Date End Date Dino Evans MD [address] [place] [address] PCP - General Internal Medicine 01/15/16 [facility] [address] [facility] [place] [address] Pharmacy 12/14/22 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 Relationship Specialty Start Date End Date Dino Evans MD [address] [place] [address] PCP - General Internal Medicine 01/15/16 [facility] [address] [facility] [place] [address] Pharmacy 12/14/22 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 Relationship Specialty Start Date End Date Dino Evans MD [address] [place] [address] PCP - General Internal Medicine 01/15/16 [facility] [address] [facility] [place] [address] Pharmacy 12/14/22 Team Status: Inactive Member Role Status Dates Dr. Dino Evans MD Primary Care Provider, Attend ing Provider Active Team Status: Inactive Member Role Status Dates Dr. Dino Evans MD Primary Care Provider Active Dr. 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 Relationship Specialty Start Date End Date Dino Evans MD [address] [place] [address] PCP - General Internal Medicine 01/15/16 Braxton Modi, [facility] [address] [place] [address] Pharmacy 12/14/22 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 Relationship Specialty Start Date End Date Dino Evans MD [address] [facility] [place] [address] PCP - General Internal Medicine 01/15/16 Braxton Modi, [facility] [address] [place] [address] Pharmacy 12/14/22 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 Relationship Specialty Start Date End Date Dino Evans MD [address] [facility] [place] [address] PCP - General Internal Medicine 01/15/16 [facility] [address] [place] [address] Pharmacy 12/14/22 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 Relationship Specialty Start Date End Date Dino Evans MD [address] [place] [address] PCP - General Internal Medicine 01/15/16 [facility] [address] [facility] [place] [address] Pharmacy 12/14/22 Team Status: Inactive Member Role Status Dates Dr. Dino Evans MD Primary Care Provider Active Dr. Sukumar Stanton DO Emergency Provider Active 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 Relationship Specialty Start Date End Date Dino Evans MD [address] [facility] [place] [address] PCP - General Internal Medicine 01/15/16 Braxton Modi [facility] [address] [place] [address] Pharmacy 12/14/22 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 Relationship Specialty Start Date End Date Dino Evans MD [address] [facility] [place] [address] PCP - General Internal Medicine 01/15/16 Braxton Modi, [facility] [address] [place] [address] Pharmacy 12/14/22 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 Relationship Specialty Start Date End Date Dino Evans MD [address] [facility] [place] [address] PCP - General Internal Medicine 01/15/16 Braxton Modi [facility] [address] [place] [address] Pharmacy 12/14/22 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 Relationship Specialty Start Date End Date Dino Evans MD [address] [facility] [place] [address] PCP - General Internal Medicine 01/15/16 Braxton Mdoi [facility] [address] [address] [place] [address] Pharmacy 12/14/22 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 Relationship Specialty Start Date End Date Dino Evans MD [address] [facility] [place] [address] PCP - General Internal Medicine 01/15/16 Braxton Modi, [facility] [address] [place] [address] Pharmacy 12/14/22 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 Relationship Specialty Start Date End Date Dino Evans MD [address] [place] [address] PCP - General Internal Medicine 01/15/16 Braxton Modi, [facility] [address] [facility] [place] [address] Pharmacy 12/14/22 Team Status: Active Member Role Status Dates Dr. Dino Evans MD Family Provider Active Dr. Sophie Huitron MD Primary Care Provider Active Team Status: Inactive Member Role Status Dates Dr. Sophie Huitron MD Primary Care Prov ider, Attending Provider, Referring Provider Active Team Status: Inactive Member Role Status Dates Dr. Dino Evans MD Primary Care Provider Active Dr. Sukumar Stanton DO Attending Provider, Emergency Provider Active 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 Relationship Specialty Start Date End Date Dino Evans MD [address] [place] [address] PCP - General Internal Medicine 01/15/16 Leon Bernstein, [facility] [address] [place] [address] Pharmacist Pharmacy 01/28/20 12/13/22 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 Relationship Specialty Start Date End Date Dino Evans MD [address] [place] [address] PCP - General Internal Medicine 01/15/16 Leon Bernstein, [facility] [address] [place] [address] Pharmacist Pharmacy 01/28/20 12/13/22 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 Relationship Specialty Start Date End Date Dino Evans MD [address] [place] [address] PCP - General Internal Medicine 01/15/16 [facility] [address] [facility] [place] [address] Pharmacy 12/14/22 Nacho Cornell, LICSW.DRESSMAKER HELPER [address] [facility] [place] [address] [facility] Internal Medicine 05/27/24 Saima Mittal LICSW.CIVIL ENGINEERING ASSISTANT [address] [place] [address] [facility] Internal [facility] 05/27/24 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 Relationship Specialty Start Date End Date Dino Evans MD [address] [place] [address] PCP - General Internal Medicine 01/15/16 [facility] [address] [facility] [place] [address] Pharmacy 12/14/22 Nacho Cornell, LICSW.DRESSMAKER HELPER [address] [facility] [place] [address] [facility] Internal Medicine 05/27/24 Saima Mittal LICSW.CIVIL ENGINEERING ASSISTANT [address] [facility] [place] [address] [facility] Internal Medicine 09/10/24 Team Status: Active Member Role Status Dates Dr. Sophie Huitron MD Primary Care Provider Active Team Status: Inactive Member Role Status Dates Dr. Sophie Huitron MD Primary Care Provider Active Start: May 31, 2024 End: May 31, 2024 Dr. Harvey Lucero MD Attending Provider Active Start: May 31, 2024 End: May 31, 2024 Dr. Harvey Lucero MD Emergency Provider Active Start: May 31, 2024 End: May 31, 2024 Team Status: Inactive Member Role Status Dates Dr. Sophie Huitron MD Primary Care Provider Active Start: June 15, 2024 End: June 15, 2024 Dr. Senait Laurent DO Attending Provider Active S tart: June 15, 2024 End: June 15, 2024 Dr. Senait Laurent DO Emergency Provider Active S tart: June 15, 2024 End: June 15, 2024 Team Status: Active Member Role Status Dates Dr. Keagan Coles MD Attending Provider Active Start: June 15, 2024 Dr. Senait Laurent DO Referring Provider Active S tart: June 15, 2024 Team Status: Inactive Member Role Status Dates Dr. Sophie Huitron MD Primary Care Provider Active Start: June 21, 2024 End: June 21, 2024 Dr. Sophie Huitron MD Referring Provider Active Start: June 21, 2024 End: June 21, 2024 Dr. Efe Pryor DO Attending Provider Active Start: June 21, 2024 End: June 21, 2024 Team Status: Inactive Member Role Status Dates Dr. Sophie Huitron MD Primary Care Provider Active Start: June 21, 2024 End: June 21, 2024 Dr. Tyrell Mo MD Attending Provider Active S tart: June 21, 2024 End: June 21, 2024 Team Status: Inactive Member Role Status Dates Dr. Sophie Huitron MD Primary Care Provider Active Start: July 22, 2024 End: July 22, 2024 Dr. Patrick Manrique DO Attending Provider Active Start: July 22, 2024 End: July 22, 2024 Dr. Patrick Manrique DO Emergency Provider Active Start: July 22, 2024 End: July 22, 2024 Team Status: Inactive Member Role Status Dates Dr. Sophie Huitron MD Primary Care Provider Active Start: August 13, 2024 End: August 13, 2024 Dr. Sophie Huitron MD Referring Provider Active Start: August 13, 2024 End: August 13, 2024 Dr. Efe Moss MD Attending Provider Active Start: August 13, 2024 End: August 13, 2024 Team Status: Inactive Member Role Status Dates Dr. Sophie Huitron MD Primary Care Provider Active Start: September 02, 2024 End: September 02, 2024 Dr. Ulysses Ceballos DO Emergency Provider Active Start : September 02, 2024 End: September 02, 2024 Team Status: Inactive Member Role Status Dates Dr. Sophie Huitron MD Primary Care Provider Active Start: September 02, 2024 End: September 02, 2024 Dr. Ulysses Ceballos DO Attending Provider Active Start : September 02, 2024 End: September 02, 2024 Dr. Ulysses Ceballos DO Emergency Provider Active Start : September 02, 2024 End: September 02, 2024 Team Status: Inactive Member Role Status Dates Dr. Sophie Huitron MD Primary Care Provider Active Start: September 10, 2024 End: September 10, 2024 Dr. Sophie Huitron MD Referring Provider Active Start: September 10, 2024 End: September 10, 2024 Dr. Efe Moss MD Attending Provider Active Start: September 10, 2024 End: September 10, 2024 Team Status: Inactive Member Role Status Dates Dr. Sophie Huitron MD Primary Care Provider Active Start: September 14, 2024 End: September 14, 2024 REAGAN Brice Attending Provider Active S tart: September 14, 2024 End: September 14, 2024 REAGAN Brice Referring Provider Active S tart: September 14, 2024 End: September 14, 2024 Team Status: Inactive Member Role Status Dates Dr. Sophie Huitron MD Primary Care Provider Active Start: September 23, 2024 End: September 23, 2024 Dr. Sophie Huitron MD Attending Provider Active Start: September 23, 2024 End: September 23, 2024 Dr. Sophie Huitron MD Referring Provider Active Start: September 23, 2024 End: September 23, 2024 Team Status: Inactive Member Role Status Dates Dr. Sophie Huitron MD Primary Care Provider Active Start: October 02, 2024 End: October 02, 2024 Dr. Sophie Huitron MD Referring Provider Active Start: October 02, 2024 End: October 02, 2024 Jodie Bordner , CHIP PERSON-C Attending Provider Active S tart: October 02, 2024 End: October 02, 2024 Team Status: Inactive Member Role Status Dates Dr. Sophie Huitron MD Primary Care Provider Active Start: October 11, 2024 End: October 11, 2024 Dr. Sophie Huitron MD Attending Provider Active Start: October 11, 2024 End: October 11, 2024 Dr. Sophie Huitron MD Referring Provider Active Start: October 11, 2024 End: October 11, 2024 Team Status: Inactive Member Role Status Dates Dr. Sophie Huitron MD Primary Care Provider Active Start: November 08, 2024 End: November 08, 2024 Dr. Alhaji Piper DO Attending Provider Active Start: November 08, 2024 End: November 08, 2024 Dr. Alhaji Piper DO Emergency Provider Active Start: November 08, 2024 End: November 08, 2024 Team Status: Inactive Member Role Status Dates Dr. Sophie Huitron MD Primary Care Provider Active Start: November 12, 2024 End: November 12, 2024 Jodie Hills NP-C Attending Provider Active S tart: November 12, 2024 End: November 12, 2024 Jdoie Hills NP-C Referring Provider Active S tart: November 12, 2024 End: November 12, 2024 Team Status: Active Member Role Status Dates Dr. Sophie Huitron MD Primary Care Provider Active Start: November 12, 2024 Jodie Hills CHIP PERSON-C Referring Provider Active S tart: November 12, 2024 Jodie Hills NP-C Other Provider Active Start : November 12, 2024 Dr. Geneva Meneses MD Attending Provider Active Start: November 12, 2024 Team Status: Inactive Member Role Status Dates Dr. Sophie Huitron MD Primary Care Provider Active Start: November 20, 2024 End: November 20, 2024 Dr. Sophie Huitron MD Referring Provider Active Start: November 20, 2024 End: November 20, 2024 Dr. Efe Moss MD Attending Provider Active Start: November 20, 2024 End: November 20, 2024 Team Status: Active Member Role Status Dates Dr. Sophie Huitron MD Primary Care Provider Active Start: November 26, 2024 Dr. Sophie Huitron MD Referring Provider Active Start: November 26, 2024 Mendel Heredia MD Attending Provider Active St art: November 26, 2024 Team Status: Inactive Member Role Status Dates Dr. Sophie Huitron MD Primary Care Provider Active Start: November 26, 2024 End: November 26, 2024 Dr. Tyrell Mo MD Attending Provider Active S tart: November 26, 2024 End: November 26, 2024 Team Status: Inactive Member Role Status Dates Dr. Sophie Huitron MD Primary Care Provider Active Start: November 26, 2024 End: November 26, 2024 Dr. Sophie Huitron MD Referring Provider Active Start: November 26, 2024 End: November 26, 2024 Mendel Heredia MD Attending Provider Active St art: November 26, 2024 End: November 26, 2024 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 Relationship Specialty Start Date End Date Dino Evans MD [address] [place], [place] [address] PCP - General Internal Medicine 01/15/16 Braxton Modi, [facility] [address] [place] [address] Pharmacy 12/14/22 Nacho Cornell, LICSW.DRESSMAKER HELPER [address] [place], [place] [address] Technical Rep Internal Medicine 05/27/24 11/05/24 Saima Mittal, LICSW.CIVIL ENGINEERING ASSISTANT [address] [place], [place] [address] Technical Rep Internal Medicine 09/10/24 Nacho Cornell, LICSW.DRESSMAKER HELPER [address] [place] [address] Technical Rep Internal Medicine 11/06/24 Goals (unrecognized section and content) Goals may be documented in a n alternate sectionGoals may be documented in an alternate sectionGoals may be documented in an alternate sectionGoals may be documented in an alternate sectionGoals may be documented in an alternate sectionGoals may be documented in an alternate sectionGoals may be documented in an alternate sectionGoals may be documented in an alternate sectionGoals may be documented in an alternate sectionGoals may be documented in an alternate sectionGoals may be documented in an alternate sectionGoals may be documented in an alternate section FOR RECORDS PERTAINING TO PATIENTS WHO ARE [...] BE BASED ON THE PRIMARY CLINICAL RECORDS. [facility] [email or web address] [facility]. provides no warranty or guarantee of the accuracy or completeness of information in this document.
[2024-12-08 19:39] VITALS: BP 95/60; PULSE 98; RESP 18; TEMP 36.7; O2SAT 97
== END 2024-12-08 19:40 | disposition home or self-care (01) ==
PROVIDERS: Emergency Provider Emergency Medicine; PCP Family Medicine; Visit Provider Emergency Medicine
DX: S40.011A Contusion of right shoulder, initial encounter (principal); F31.9 Bipolar disorder, unspecified; E11.9 Type 2 diabetes mellitus without complications; Z79.4 Long term (current) use of insulin; S80.211A Abrasion, right knee, initial encounter; M75.51 Bursitis of right shoulder; S80.212A Abrasion, left knee, initial encounter; S50.311A Abrasion of right elbow, initial encounter; S60.511A Abrasion of right hand, initial encounter; S80.01XA Contusion of right knee, initial encounter; S80.02XA Contusion of left knee, initial encounter; S50.01XA Contusion of right elbow, initial encounter; S60.221A Contusion of right hand, initial encounter; W19.XXXA Unspecified fall, initial encounter; I10 Essential (primary) hypertension; F41.9 Anxiety disorder, unspecified; E03.9 Hypothyroidism, unspecified; E78.00 Pure hypercholesterolemia, unspecified; G47.30 Sleep apnea, unspecified; G43.909 Migraine, unspecified, not intractable, without status migrainosus; J45.909 Unspecified asthma, uncomplicated; F17.290 Nicotine dependence, other tobacco product, uncomplicated; Z79.51 Long term (current) use of inhaled steroids; Z79.84 Long term (current) use of oral hypoglycemic drugs; Z79.85 Long-term (current) use of injectable non-insulin antidiabetic drugs; Z79.899 Other long term (current) drug therapy; Z79.890 Hormone replacement therapy
CPT/HCPCS: 73030; 73080; 73130; 99285

== ENCOUNTER → 2025-01-22 | Outpatient (CLI) | payer MEDICARE, MEDICAID, SELFPAY ==
--- NOTE | 2025-01-22 09:53 | RAD_ITS ---
PROCEDURE: HAND MIN 3 VIEWS 01/22/2025 REASON FOR EXAM: PAIN TECHNIQUE: HAND MIN 3 VIEWS COMPARISON: Radiographs on 12/08/2024. FINDINGS: Unchanged mild degenerative joint disease, more prominent in the 1st carpometacarpal joint. Mild osteopenia of the visualized bones. Degenerative joint disease. No fracture or dislocation is seen. No lytic or blastic bone lesion is noted. RAD/Hand Min 3 Views IMPRESSION: No evidence for acute abnormality. [facility]
--- NOTE | 2025-01-22 09:54 | RAD_ITS ---
PROCEDURE: WRIST MIN 3 VIEWS 01/22/2025 REASON FOR EXAM: PAIN TECHNIQUE: WRIST MIN 3 VIEWS COMPARISON: 06/21/2024 FINDINGS: No acute bone or soft tissue pathology. No significant wrist osteoarthritis. 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 [facility]
== END | disposition home or self-care (01) ==
LOC: MTRAD 09:52
PROVIDERS: PCP Family Medicine; Referring Provider Nurse Practitioner Family; Visit Provider Nurse Practitioner Family
DX: M79.641 Pain in right hand (principal); Z91.81 History of falling
CPT/HCPCS: 73110; 73130

== ENCOUNTER 2025-02-03 09:00 | Outpatient (RCR) | payer MEDICARE, MEDICAID, SELFPAY ==
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
== END 2025-02-03 19:00 | disposition home or self-care (01) ==
LOC: PT 09:00
PROVIDERS: PCP Family Medicine; Referring Provider Orthopaedic Surgery Sports Medicine; Visit Provider Orthopaedic Surgery Sports Medicine
DX: M25.511 Pain in right shoulder (principal); M75.01 Adhesive capsulitis of right shoulder; E11.9 Type 2 diabetes mellitus without complications
CPT/HCPCS: 97035; 97110; 97140; 97162; 97530

== ENCOUNTER → 2025-02-22 | Outpatient (CLI) | payer MEDICARE, MEDICAID, SELFPAY ==
--- OUTSIDE RECORDS SUMMARY | 2025-02-22 08:33 | XMS RPT_ITS | CCD ---
Author Organization [facility] Care Team Providers Care Bioanalyst Name Role Phone Josué Sarkar Unavailable Unavailable PROVIDER, UNKNOWN Unavailable Unavailable Dino Willis Unavailable Unavailable Josué Sarkar Unavailable Unavailable PROVIDER, UNKNOWN Unavailable Unavailable DacDino anne Unavailable Unavailable Dino Evans MD Primary Care Provider [facility], Keti Unavailable Dino Evans MD [facility] Unavailable Dino Evans MD Primary Care Provider [facility], Keti Unavailable [facility], [place] Unavailable TALAMPAS, DINO D Primary Care Unavailable CORNELL, NACHO Referring Unavailable CORNELL, NACHO Referring Unavailable TALAMPAS, DINO D Primary Care Unavailable CORNELL, NACHO Referring Unavailable TALAMPAS, DINO D Primary Care Unavailable CORNELL, NACHO Referring Unavailable TALAMPAS, DINO D Primary Care Unavailable Dino Evans MD Primary Care Provider [facility], Keti Unavailable [facility] CONDUCTOR YARD.PAD ASSEMBLER, Nacho Unavailable Kyrie CONDUCTOR YARD.OYSTER GRADER, Saima Unavailable Kyrie CONDUCTOR YARD.OYSTER GRADER, Saima Unavailable Tomy JORDAN, Dr. Barrios Primary Care Provider [phone] Jazmine JORDAN, Dr. Gabriel Attending Provider Jazmine JORDAN, Dr. Gabriel Emergency Provider Mehran PEREZ, Dr. Sapp Attending Provider Mehran DO, Dr. Sapp Emergency Provider Sharyn JORDAN, Dr. Keagan Thomason Attending Provider Mehran PEREZ, Dr. Sapp Referring Provider Tomy JORDAN, Dr. Barrios Referring Provider Roya PEREZ, Dr. Wilks Attending Provider Chepe JORDAN, Dr. Santillan Attending Provider Burton PEREZ, Dr. Nguyen Attending Provider Burton PEREZ, Dr. Nguyen Emergency Provider Ajay JORDAN, Dr. Wilks Attending Provider Lin PEREZ, Dr. Arora Emergency Provider Lin PEREZ, Dr. Arora Attending Provider Reinier CHANNEL INSTALLER-CJodie Attending Provider Reinier CHANNEL INSTALLER-CJodie Referring Provider Tomy JORDAN, Dr. Barrios Attending Provider Dr. Sophie Huitron MD Primary Care Provider Dr. Sophie Huitron MD Referring Provider Dr. Alhaji Piper DO Attending Provider Dr. Alhaji Piper DO Emergency Provider Reinier CHANNEL INSTALLER-CJodie Other Provider Zaira JORDAN, Dr. Bean Attending Provider Tomy JORDAN, Dr. Barrios Primary Care Provider Mendel Heredia MD Attending Provider Chepe JORDAN, Dr. Santillan Attending Provider [facility] CONDUCTOR YARD.PAD ASSEMBLER, Nacho Unavailable [facility] CONDUCTOR YARD.PAD ASSEMBLER, Nacho Unavailable NACHO CORNELL Attending Unavailable DINO EVANS Primary Care Unavailable Mendel Heredia MD Referring Provider Jack JORDAN, Dr. Carmona Emergency Provider Dr. Sophie Huitron MD Primary Care Provider Dr. Sophie Huitron MD Referring Provider Dr. Efe Moss MD Attending Provider [phone] Jack JORDAN, Dr. Carmona Attending Provider Mendel Heredia MD Referring Provider JULIET TAN MD Admitting Unavailable JULIET TAN MD Attending Unavailable JULIET TAN MD Primary Care Unavailable DINO EVANS MD Referring Unavailable SOPHIE HUITRON Consulting Unavailable PROVIDER, UNKNOWN Consulting Unavailable PROVIDER, UNKNOWN Consulting Unavailable BRETT WISE Admitting Unavailable BRETT WISE Attending Unavailable BRETT WISE Primary Care Unavailable SOPHIE HUITRON Consulting Unavailable SOPHIE HUITRON Referring Unavailable PROVIDER, UNKNOWN Consulting Unavailable PROVIDER, UNKNOWN Consulting Unavailable Tomy JORDAN, Dr. Barrios Primary Care Provider Dr. Sophie Huitron MD Referring Provider Jodie Tejeda Attending Provider Dr. Sophie Huitron MD Attending Provider Reinier FREDERICK-Jodie De La Cruz Referring Provider Jong FREDERICK-Lolis De La Cruz Attending Provider Jong FREDERICK-Lolis De La Cruz Referring Provider Mendel Heredia MD Referring Provider Sophie Huitron Primary Care Unavailable Ulysses Ceballos Attending Unavailable Sophie Huitron Primary Care Unavailable Patrick Manrique Attending Unavailable Sophie Huitron Primary Care Unavailable Harvey Lucero Attending Unavailable Jodie Hills Referring Unavailable Jodie Hills Attending Unavailable Mied, Sophie Primary Care Unavailable Miedel, [place] Primary Care Unavailable Senait Laurent Attending Unavailable Miedel, [place] Primary Care Unavailable Tyrell Mo Attending Unavailable Miedel, [place] Primary Care Unavailable Jodie Hills Attending Unavailable Miedel, Sophie Referring Unavailable Miedel, Sophie Primary Care Unavailable Miedel, Sophie Referring Unavailable Mendel Heredia Attending Unavailable Miedel, [place] Primary Care Unavailable Mathew Santiago Attending Unavailable Miedel, [place] Primary Care Unavailable Patrick Manrique Attending Unavailable Miedel, [place] Primary Care Unavailable Mendel Heredia Referring Unavailable Mendel Heredia Attending Unavailable Miedel, [place] Primary Care Unavailable Mendel Heredia Referring Unavailable Mendel Heredia Attending Unavailable Miedel, Sophie Referring Unavailable Miedel, [place] Primary Care Unavailable Miedel, Sophie Attending Unavailable Jodie Hills Referring Unavailable Miedel, [place] Primary Care Unavailable Jodie Hills Attending Unavailable Miedel, Sophie Referring Unavailable Miedel, [place] Primary Care Unavailable Efe Pryor Attending Unavailable Paed, [place] Primary Care Unavailable Tyrell Mo Attending Unavailable Paed, Sophie Referring Unavailable Jodie Hills Attending Unavailable Paed, [place] Primary Care Unavailable Paedel, Sophie Referring Unavailable Paedel, [place] Primary Care Unavailable Paedel, Sophie Attending Unavailable Paed, Sophie Primary Care Unavailable Mk CHANNEL INSTALLER, Ramya Referring Unavailable Mk CHANNEL INSTALLER, Ramya Attending Unavailable Paed, [place] Primary Care Unavailable Jong Lolis Referring Unavailable JongAde romerohel Attending Unavailable Jodie Hills Attending Unavailable Miedel, Sophie Referring Unavailable Miedel, Sophie Primary Care Unavailable Mendel Heredia Attending Unavailable Miedel, Sophie Referring Unavailable Miedel, [place] Primary Care Unavailable Miedel, Sophie Primary Care Unavailable Mk CHANNEL INSTALLER, Ramya Referring Unavailable Mk CHANNEL INSTALLER, Ramya Attending Unavailable Miedel, Sophie Referring Unavailable Miedel, Sophie Primary Care Unavailable Efe Moss Attending Unavailable Miedel, Sophie Referring Unavailable Tomy Sophie Primary Care Unavailable Efe Moss Attending Unavailable Jodie Hills Consulting Unavailable Jodie Hills Referring Unavailable Geneva Meneses Attending Unavailable Palynsey Sophie Primary Care Unavailable Tomy Sophie Primary Care Unavailable Alhaji Piper Attending Unavailable Allergies Allergy Classification Reported Allergen(s) Allergy Type Date of Onset Reaction(s) Facility (20 sources) HYDROmorphone; Translations: [HYDROMORPHONE] Drug Allergy 1 GI Upset, Vomiting [facility] Work Phone: (20 sources) Latex; Translations: [LATEX] Drug Allergy 9 Hives [facility] Work Phone: (20 sources) Seasonal allergy; Translations: [SEASONAL ALLERGIES] Allergy to substance 1 Other: See Comments [facility] (1 source) HYDROmorphone Drug Allergy [facility] Repository (1 source) HYDROmorphone Drug Allergy 5 [facility] Repository (1 source) Latex Drug allergy (disorder) 5 [facility] Medications Current Medications Medication Drug [...] NEEDED as needed for Pain 10 2 0 June 15, 2024 August 13, 2024 10:40am Acute pain of right wrist Pain in right wrist Start: 04-16-2021 End: 07-12-2021 Hydrocodone-Acetaminophen 1 TABLET tablet Discontinued 1 {tbl} PO EVERY 4 HOURS NEEDED as needed for Pain 15 3 0 June 15, 2021 July 12, 2021 12:42pm Sciatica Sciatica, unspecified side Start: 04-16-2021 End: 07-12-2021 take 1 tablet by mouth every four hours as needed Hydrocodone-Acetaminophen Discontinued 1 TABLET PO EVERY 4 HOURS NEEDED 15 3 June 15, 2021 July 12, 2021 12:42pm Start: 08-27-2020 End: 08-30-2020 Hydrocodone-Acetaminophen 1 TABLET tablet Discontinued 1 {tbl} PO EVERY 6 HOURS NEEDED as needed for Pain 10 3 0 August 27, 2020 August 29, 2020 1:00am August 30, 2020 1:04am Strain of lumbar paraspinous muscle Strain of muscle, fascia and tendon of lower back, initial encounter Start: 08-27-2020 End: 08-30-2020 take 1 tablet by mouth every six hours as needed Hydrocodone-Acetaminophen Discontinued 1 TABLET PO EVERY 6 HOURS NEEDED 10 3 August 27, 2020 August 30, 2020 1:04am Start: 10-15-2019 End: 10-18-2019 Hydrocodone-Acetaminophen 1 TABLET tablet Discontinued 1 {tbl} PO EVERY 6 HOURS NEEDED as needed for Pain 10 3 0 October 15, 2019 October 17, 2019 12:00am October 18, 2019 12:02am Back pain due to injury Unspecified injury of lower back, initial encounter Start: 10-15-2019 End: 10-18-2019 take 1 tablet by mouth every six hours as needed Hydrocodone-Acetaminophen Discontinued 1 TABLET PO EVERY 6 HOURS NEEDED 10 3 October 15, 2019 October 18, 2019 12:02am Start: 05-10-2019 End: 05-16-2019 Hydrocodone-Acetaminophen 1 TABLET tablet Discontinued 1 {tbl} PO EVERY 6 HOURS NEEDED as needed for Pain 6 2 0 May 10, 2019 May 11, 2019 1:00am May 16, 2019 1:08am Back pain Dorsalgia, unspecified Start: 05-10-2019 End: 05-16-2019 take 1 tablet by mouth every six hours as needed Hydrocodone-Acetaminophen Discontinued 1 TABLET PO EVERY 6 HOURS NEEDED 6 2 May 10, 2019 May 16, 2019 1:08am [id number] 200 actuat albuterol 0.09 mg/actuat metered dose [...] hours as needed for Wheezing/Shortness of Breath. Arm Brace (Elbow Compression Sleeve) misc (6 sources) Start: 01-02-2025 Arm Brace (Elbow Compression Sleeve) misc Active 0 .Route 1 0 January 02, 2025 10:10am Apply to right elbow Start: 01-02-2025 End: 01-02-2025 Arm Brace (Elbow Compression Sleeve) misc Discontinued 0 .Route 1 0 January 02, 2025 12:00am January 02, 2025 10:11am As directed atorvastatin 10 mg oral tablet (20 sources) HMG-CoA Reductase Inhibitor Start: 02-27-2016 End: 08-28-2023 take 1 tablet by mouth once daily Atorvastatin 10 MG tablet Active 10 mg PO DAILY February 27, 2016 12:00am cholesterol lowering Comment on above: Take 1 tablet by santino th once daily. For cholesterol. benzonatate 200 mg oral capsule (11 sources) Non-narcotic Antitussive Start: 08-10-2023 End: 10-09-2023 take 1 capsule by mouth every eight [...] as needed. Take 1 capsule by mo uth three times a day as needed for cough. COMPOUNDED PRESCRIPTION (20 sources) Start: 12-11-2018 COMPOUNDED PRESCRIPTION Indications: Controlled type 2 diabetes mellitus with diabetic neuropathy, without long-term current use of insulin ([facility]) Diabetic Shoes--fitted with inserts for flat feet, 1 pair Diagnosis: (M21.41, M21.42) Pes planus of both feet ; (E11.40) Controlled type 2 diabetes mellitus with diabetic neuropathy, without long-term current use of insulin ([facility]) 1 Each 12/11/2018 Active Start: 12-11-2018 COMPOUNDED PRE SCRIPTION Indications: Controlled type 2 diabetes mellitus with diabetic neuropathy, without long-term current use of insulin ([facility]) Diabetic Shoes--fitted with inserts for flat feet, 1 pair Diagnosis: (M21.41, M21.42) Pes planus of both feet ; (E11.40) Controlled type 2 diabetes mellitus with diabetic neuropathy, without long-term current use of insulin ([facility]) 1 Each 0 12/11/2018 Active Comment on above: Diabetic Shoes--fitt ed with inserts for flat feet, 1 pair Diagnosis: (M21.41, M21.42) Pes planus of both feet ; (E11.40) Controlled type 2 diabetes mellitus with diabetic neuropathy, without long-term current use of insulin ([facility]) docusate sodium 100 mg oral capsule (8 sources) Start: 11-09-19 take 1 capsule by [...] long-term current use of insulin (HCC) Inject 1.5 mg subcutaneously one time a week. 12 mL 1 08/15/2023 08/15/2023 Discontinued Start: 08-05-2023 End: 09-10-2024 Dulaglutide (Trulicity) 0.75 mg/0.5 mL pen injector Discontinued 1.5 mg SC EVERY WEEK 2 0 August 05, 2023 1:00am September 10, 2024 [...] time a week. flash glucose scanning reader ([email or web address] JALIL 14 DAY READER) misc (20 sources) Start: 09-14-2018 flash glucose scanning [...] 05, 2018 4:19am September 05, 2018 3:12pm long acting insulin Start: 03-24-2018 End: 09-05-2018 inject 20 [IU] by subcutaneous injection once daily Insulin Glargine (Lantus U-100 Insulin) 100 UNIT/ML Ml Discontinued 20 U SQ DAILY 0 0 March 24, 2018 10:06am September 05, 2018 4:20am long acting insulin Start: 02-27-2016 End: 03-24-2018 inject 17 [IU] by subcutaneous injection once daily Insulin Glargine (Lantus) 100 UNIT/ML Ml Discontinued 17 U SQ DAILY February 27, 2016 12:00am March 24, 2018 10:06am long acting insulin Comment on above: Inject 14 Units subc utaneously every morning. Inject 16 Units subc utaneously every morning. Inject 26 Units subc utaneously every morning. Inject 18 Units subc utaneously every morning. 200 actuat ipratropium bromide 0.017 mg/actuat metered dose inhaler (16 sources) Anticholinergic Start: 01-21-2021 Ipratropium [place] (Atrovent Hfa) 17 mcg/actuation Hfa Aerosol Inhaler Active 1 NMA INHALATION DAILY January 21, 2021 12:00am Start: 01-21-2021 Ipratropium Br omide (Atrovent Hfa) 17 mcg/actuation Hfa Aerosol Inhaler Active 1 INH INHALATION DAILY January 21, 2021 12:00am Alberto TeeB.Bif-S.The rm 175 mg capsule (8 sources) Start: 11-08-2024 take 1 capsule by mouth every twenty-four hours Alberto TeeB.Bif-S.Therm 175 mg capsule Active 1 NMA PO Q24H November 08, 2024 12:00am levothyroxine sodium 0.025 m g oral tablet (20 sources) l - T h y r o x i n e Start: 02-27-2016 End: 05-29-2023 take 1 tablet by mouth once daily Levothyroxine 25 MCG tablet Active 25 ug PO DAILY February 27, 2016 12:00am thyroid Comment on above: Take 1 tablet by santino th once daily. Take on empty stomach. For thyroid. Lidocaine (11 sources) A n t i a r r h y t h m i c , A m i d e L o c a l A n e s t h e t i c Start: 08-13-2024 Lidocaine (Salonpas (Lidocaine)) 4 % adhesive patch,medicated Active 1 NMA TOPICAL daily as needed for pain August 13, 2024 1:00am Start: 08-13-2024 Lidocaine (Ismael onpas (Lidocaine)) 4 % adhesive patch,medicated Active 1 [...] neuropathy, without long-term current use of insulin ([facility]) Take 1 tablet by mouth twice daily [...] TWICE A DAY March 23, 2018 12:00am blood sugar Comment on above: Take 2 tablets by mo uth twice daily before meals. Take 1 tablet by santino twice daily before meals. pregabalin 150 mg oral capsule (20 sources) Start: 01-03-2024 take 1 capsule by mouth twice daily Pregabalin 150 mg capsule Active 150 mg PO TWICE A DAY January 03, 2024 12:00am Start: 01-09-2023 End: 11-08-2023 pregabalin (LYRICA) 150 mg c apsule Indications: Type 2 diabetes mellitus with diabetic neuropathy, with long-term current use of insulin ([facility]) , Controlled type 2 diabetes mellitus with diabetic neuropathy, without long-term current use of insulin ([facility]) Take 1 capsule by mouth two times a day for 90 days. 60 capsule 2 08/10/2023 Active Start: 12-08-2022 End: 03-08-2023 take 1 capsule by mouth twice daily pregabalin (LYRICA) 100 mg capsule Indications: Type 2 diabetes mellitus with diabetic neuropathy, with long-term current use of insulin ([facility]) Take 1 capsule by mouth twice daily for 90 days. 60 capsule 2 12/08/2022 03/08/2023 Active Start: 11-08-2022 End: 12-08-2022 take 1 capsule by mouth twice daily pregabalin (LYRICA) 75 mg capsule Indications: Type 2 diabetes mellitus with diabetic neuropathy, with long-term current use of insulin ([facility]) Take 1 capsule by mouth twice daily for 90 days. 60 capsule 2 11/08/2022 12/08/2022 Discontinued Start: 06-24-2022 End: 10-29-2022 take 1 capsule by mouth twice daily pregabalin (LYRICA) 75 mg capsule Indications: Type 2 diabetes mellitus with diabetic neuropathy, with long-term current use of insulin (HCC) Take 1 capsule by mouth twice daily for 60 days. 60 capsule 1 08/30/2022 10/29/2022 Active Comment on above: Take 1 capsule by mo ut twice daily for 60 days. Take 1 capsule by mo ut twice daily for 90 days. Take 1 capsule by mo ut two times a day for 90 days. Semaglutide (17 sources) Start: 11-20-2024 Semaglutide (Ozempic) 0.25 mg [...] once daily Alpha Lipoic Acid 600 mg capsule Active 600 mg PO DAILY January 21, 2021 12:00am Start: 02-25-2020 End: 09-10-2020 take 1 capsule by mouth once daily Alpha Lipoic Acid 600 mg cap Take 1 capsule by mouth once daily. 30 capsule 5 02/25/2020 09/10/2020 Discontinued Comment on above: Take 1 capsule by mo ut once daily. take 1 capsule by mo [facility] once daily topiramate 50 mg oral tablet (20 sources) Start: 01-03-2024 take 1 tablet by mouth every twelve hours Topiramate 50 mg tablet Active 50 mg PO Q12H January 03, 2024 12:00am Start: 08-10-2023 End: 11-08-2024 take 1 tablet by mouth at bedtime Topiramate 25 mg tablet Discontinued 25 mg PO AT BEDTIME January 03, 2024 12:00am November 08, 2024 9:06pm headache Comment on above: Take 1 tablet by santino th daily at bedtime. for headache traZODone hydrochloride 300 mg oral tablet (20 sources) Serotonin Reuptake Inhibitor Start: take 1 tablet by mouth at bedtime Trazodone 300 mg tablet Active 300 mg PO AT BEDTIME January 21, 2021 12:00am Start: 12-19-2019 End: 01-21-2021 take 1 tablet by mouth at bedtime as needed traZODone (DESYREL) 150 mg tablet TAKE 1 2 TABLETS BY MOUTH AT BEDTIME NEEDED 12/19/2019 01/21/2021 Discontinued (Duplicate Entry) Comment on above: Take 1 tablet by santino th daily at bedtime. trospium chloride 20 mg oral tablet (11 sources) Cholinergic Muscarinic Antagonist Start: take 1 tablet by mouth at bedtime Trospium 20 mg tablet Active 20 mg PO AT BEDTIME January 03, 2024 12:00am vitamin b12 1 mg oral tablet (20 sources) Vitamin B12 Start: 5 take 1 tablet by mouth once daily Cyanocobalamin (Vitamin B-12) 1,000 mcg tablet Active 1000 ug PO DAILY November 08, 2024 12:00am Start: 06-23-2021 End: 09-16-2022 take 1 tablet by mouth [...] tablet by santino th once daily. Vitamin N93-Rvmje Acid (5 sources) Start: 01-21-2021 take 1 tablet by mouth once daily Vitamin S31-Ugqaa Acid Active 1 TABLET PO DAILY January 20, 2021 11:00pm Start: 01-21-2021 take 1 tablet by santino once daily Vitamin K70-Phxav Acid Active 1 TABLET PO DAILY January 21, 2021 12:00am vortioxetine 10 mg oral tablet (20 sources) Start: 08-18-2022 take 1 tablet by mouth once daily TRINTELLIX 10 mg tablet Take 1 tablet by mouth once daily. 08/18/2022 Active Comment on above: [facility] Completed/Discontinued Medications Medication Drug [...] on above: Take 2 tablets by mo [facility] every 6 hours as needed for pain. acetaminophen 325 mg / oxyCODONE hydrochloride 5 mg oral tablet (16 sources) Opioid Agonist Start: 11-05-2019 End: 11-08-2019 Oxycodone-Acetamino phen 1 TABLET tablet Discontinued 1 {tbl} PO EVERY 6 HOURS NEEDED as needed for Pain 10 3 November 04, 2019November 07, 2019 12:00am November 08, 2019 12:02am Acute myofascial strain of lumbar region Strain of muscle, fascia and tendon of lower back, initial encounter Start: 11-05-2019 End: 11-08-2019 take 1 tablet by mouth every six hours as needed Oxycodone-Acetaminophen Discontinued 1 TABLET PO EVERY 6 HOURS NEEDED 10 November 05, 2019 November 08, 2019 12:02am Albuterol Sulfate (Proair Hf a) 1 PUFF inhaler (16 sources) Start: 03-23-2018 End: 11-08-2024 Albuterol Sulfate [...] 03/02/2023 Comment on above: Glucose Meter of [employer] ice - Kit - Dx: Type 2 [...] carBAMazepine 300 mg extended release oral capsule (16 sources) Mood Stabilizer Start: 01-21-2021 End: 01-03-2024 take 1 capsule by mouth every twelve hours at bedtime Carbamazepine 300 mg Capsule, Er Multiphase 12 Hr Discontinued 600 mg PO AT BEDTIME January 21, 2021 12:00am January 03, 2024 6:54am clindamycin 10 mg/ml topical lotion (16 sources) Lincosamide Antibacterial Start: 01-05-2020 End: 01-26-2020 Clindamycin Phosphate 60 ML lotion Discontinued 1 mL TP TWICE A DAY 1 21 0 January 05, 2020 12:00am January 25, 2020 [...] above: Take 1 tablet by santino th three times daily as needed for muscle spasm. diazePAM 5 mg oral tablet (11 sources) Benzodiazepine Start: 09-02-2024 End: 11-08-2024 take 1 tablet by mouth every eight hours as needed for muscle spasms Diazepam 5 mg tablet Discontinued 5 mg PO EVERY 8 HOURS as needed for Muscle Spasm September 02, 2024 12:00am November 08, 2024 9:04pm dicyclomine hydrochloride 10 mg oral capsule (11 sources) Anticholinergic Start: 03-28-2024 End: 08-13-2024 take 1 capsule by mouth three times daily Dicyclomine 10 mg capsule Discontinued 10 mg PO THREE TIMES A DAY March 28, 2024 12:00am August 13, 2024 10:40am docusate sodium 50 mg / sennosides, [facility] 8.6 mg oral tablet (16 sources) Start: 03-09-2021 End: 09-16-2022 take 1 tablet by mouth once daily senna-docusate (SENNA-S) 8.6-50 mg per tablet Take 1 tablet by mouth once daily. 30 tablet 03/09/2021 09/16/2022 Discontinued Comment on above: Take 1 tablet by santino once daily. famotidine 20 mg oral tablet (1 source) Histamine-2 Receptor Antagonist Start: 08-03-2020 End: 11-02-2020 take 1 tablet by mouth every twelve hours as needed famotidine (PEPCID) 20 mg tablet Take 1 tablet by mouth twice daily as needed. For indigestion or heartburn or gas. 60 tablet 11 08/03/2020 11/02/2020 Discontinued glimepiride 2 mg oral tablet (16 sources) Sulfonylurea Start: 02-27-2016 End: 09-05-2018 take 1 tablet by mouth twice daily Glimepiride 2 MG tablet Discontinued 2 mg PO TWICE A DAY February 27, 2016 12:00am September 05, 2018 3:12pm blood sugar ibuprofen 600 mg oral tablet (17 sources) [...] 01/21/2021 Discontinued methylPREDNISolone 4 mg oral tablet (20 sources) Corticosteroid Start: 2024 End: 2024 Methylprednisolone [...] 01/21/2021 Discontinued predniSONE 20 mg oral tablet (13 sources) Start: 06-15-2024 End: 08-13-2024 take 1 tablet by mouth twice daily Prednisone 20 mg tablet Discontinued 20 mg PO TWICE A DAY 10 June 15, 2024 1:00am August 13, 2024 [...] on above: Take 2 tablets by mo [facility] once daily for 5 days. Take 2 tabs po BID f or 2 days then 1 tab po BID for 2 days then 1/2 tab po BID for 2 days then 1/2 tab daily for 2 days then stop Vitamin N80-Wcahk Acid 1-0.8 mg Tablet (11 sources) Start: 01-21-2021 End: 11-08-2024 Vitamin I33-Hmhdk Acid 1-0.8 mg Tablet Discontinued 1 {tbl} PO DAILY January 21, 2021 12:00am November 08, 2024 9:07pm Start: 01-21-2021 Vitamin B12-Fo lic Acid 1-0.8 mg Tablet Active 1 {tbl} PO DAILY January 21, 2021 12:00am Problems Active Problems Problem Classification Problem Date Documented Da te Episodic/Chronic Asthma (20 sources) Asthma; Translations: [Unspecified asthma, uncomplicated] Onset: 03-31-2019 01-21-2021 Chronic Cancer of uterus (20 sources) Adenocarcinoma of endometrium; Translations: [Malignant neoplasm of endometrium] Onset: 02-10-2021 02-10-2021 Chronic Cardiac dysrhythmias (1 source) Tachycardia; Translations: [Tachycardia, unspecified] Episodic Complications of surgical procedures or medical care (8 sources) Drug therapy finding; Translations: [Unspecified adverse effect of drug or medicament, initial encounter] 11-16-2024 Episodic Diabetes mellitus with complications (20 sources) Other specified diabetes mellitus with unspecified complications; Translations: [Type 2 diabetes mellitus] Onset: 12-26-2014 06-24-2018 Chronic Diabetes mellitus without complication (20 sources) Diabetes mellitus; Translations: [Type 2 diabetes mellitus without complications] Onset: 11-26-2024 01-03-2024 Chronic Diabetes mellitus without complication (20 sources) Hyperglycemia; Translations: [Hyperglycemia, unspecified] 08-23-2019 Episodic Diabetes mellitus without complication (6 sources) Diabetes mellitus without complication; Translations: [Adhesive bursitis of right shoulder] Disorders of lipid metabolism (20 sources) Hyperlipidemia, unspecified; Translations: [Dyslipidemia] Onset: 05-25-2017 08-31-2021 Chronic E Codes: Fall (19 sources) Falling injury; Translations: [Unspecified fall, initial encounter] 01-19-2023 Episodic Essential hypertension (16 sources) Hypertensive disorder; Translations: [Essential (primary) hypertension] 01-21-2021 Chronic Comment on above: PT REPORTS NO BP ISS UES EVER. NO MEDS PRESENTLY Headache; including migraine (13 sources) New daily persistent headache; Translations: [New [...] Translations: [Primary insomnia] 06-02-2023 Chronic Mood disorders (18 sources) Bipolar disorder, unspecified; Translations: [Bipolar disorder] Onset: 05-25-2017 11-15-2020 Chronic Mood disorders (2 sources) Major depressive disorder, single episode, unspecified; Translations: [Major depressive disorder, single episode, unspecified] Onset: 05-25-2017 Nausea and vomiting (11 sources) Nausea and vomiting; Translations: [Nausea with vomiting, unspecified] 01-11-2024 Episodic Nonspecific chest pain (16 sources) Precordial pain; Translations: [Other chest pain] 09-05-2018 Episodic Nutritional deficiencies (2 sources) Vitamin D deficiency; Translations: [Vitamin D deficiency, unspecified] Chronic Other aftercare (16 sources) Wound ; Translations: [Encounter for other specified surgical aftercare] 03-19-2021 Episodic Other connective tissue disease (13 sources) Bursitis of right shoulder; Translations: [Adhesive capsulitis of right shoulder] 11-26-2024 Episodic Other connective tissue disease (2 sources) Adhesive capsulitis of right shoulder; Translations: [Adhesive capsulitis of right shoulder] 01-27-2025 Episodic Other connective tissue disease (2 sources) Adhesive capsulitis of right shoulder; Translations: [Adhesive capsulitis of right shoulder] Onset: 11-26-2024 Episodic Other connective tissue disease (1 source) Pain in right hand; Translations: [Pain in right hand] Onset: 01-27-2025 Episodic Other endocrine disorders (16 sources) Hypoglycemia; Translations: [Hypoglycemia, unspecified] 05-17-2019 Chronic Other gastrointestinal disorders (8 sources) Diarrhea; Translations: [Diarrhea, unspecified] 11-16-2024 Episodic Other injuries and conditions due to external causes (4 sources) Abrasion and/or friction burn of multiple sites; Translations: [Unspecified multiple injuries, initial encounter] 12-08-2024 Episodic Other lower respiratory disease (3 sources) Cough; Translations: [Cough] Episodic Other nervous system disorders (16 sources) Neuropathy; Translations: [Polyneuropathy, unspecified] 11-29-2014 Chronic Other nervous system disorders (20 sources) Paresthesia of hand ; Translations: [Anesthesia [...] of skin; Translations: [Anesthesia of skin] Onset: 12-18-2024 Episodic Other nervous system disorders (2 sources) Paresthesia of skin; Translations: [Paresthesia of skin] Onset: 12-18-2024 Episodic Other non-traumatic joint disorders (20 sources) Pain in wrist; Translations: [Pain in right wrist] 06-21-2024 Episodic Other non-traumatic joint disorders (20 sources) Pain in right shoulder; Translations: [Right shoulder pain] Onset: 12-26-2024 11-20-2024 Episodic Other nutritional; endocrine; and metabolic [...] obesity due to excess calories] Chronic Other upper respiratory infections (1 source) Chronic maxillary sinusitis; Translations: [Chronic maxillary sinusitis] Chronic Other upper respiratory infections (1 source) Acute upper respiratory infection; Translations: [Acute upper respiratory infection, unspecified] 04-25-2023 Episodic Pneumonia (except that caused by tuberculosis or sexually transmitted disease) (16 sources) Community acquired pneumonia; Translations: [Pneumonia, unspecified organism] 09-05-2018 Episodic Residual codes; unclassified (20 sources) Sleep apnea; Translations: [Sleep apnea, unspecified] 03-08-2021 Chronic Residual codes; unclassified (2 sources) Obstructive sleep apnea syndrome; Translations: [Obstructive sleep apnea (adult) (pediatric)] 04-06-2023 Chronic Residual codes; unclassified (20 sources) Pain; Translations: [Pain, unspecified] 07-12-2021 Episodic Residual codes; unclassified (16 sources) H/O Spinal surgery; Translations: [Other specified postprocedural states] 11-15-2020 Episodic Residual codes; unclassified (1 source) Other specified health status; Translations: [Other specified conditions influencing health status] 06-02-2023 Episodic Residual codes; unclassified (1 source) Tobacco user 09-12-2024 Episodic Schizophrenia and other psychotic disorders (20 [...] Onset: 01-21-2021 01-21-2021 Chronic Superficial injury; contusion (20 sources) Contusion of elbow; Translations: [Contusion of right elbow, initial encounter] 01-19-2023 Episodic Thyroid disorders (20 sources) Hypothyroidism, unspecified; Translations: [Hypothyroidism] Onset: 02-13-2012 02-13-2012 Chronic Unclassified (2 sources) Body mass index (BMI) 45.0-49.9, adult; Translations: [Body mass index (BMI) 45.0-49.9, adult] Onset: 05-25-2017 Chronic Unclassified (1 source) Patient encounter status 09-12-2024 Unclassified (8 sources) M54.2 - Cervicalgia,R52 - Pain, unspecified Unclassified (7 sources) M25.511 - Pain in right shoulder,R20.0 - Anesthesia of skin,R20.2 - Paresthesia of skin,M54.2 - Cervicalgia Unclassified (5 sources) M25.511 - Pain in right shoulder,M75.01 - Adhesive capsulitis of right shoulder,E11.9 - Type 2 diabetes mellitus without complications Past or Other Problems Problem Classification Problem Date Documented Date Episodic/Chronic Abdominal pain (20 sources) Abdominal pain; Translations: [Unspecified abdominal pain] Onset: 11-14-2024 04-05-2024 Episodic Acquired foot deformities (20 sources) Talipes cavus; Translations: [Congenital pes cavus, unspecified foot] Onset: 12-11-2017 12-11-2017 Episodic Other circulatory disease (20 sources) Abnormal [...] in right wrist] Onset: 07-04-2024 Episodic Other screening for suspected conditions (not mental disorders or infectious disease) (20 sources) Patient encounter status; Translations: [Encounter for screening mammogram for malignant neoplasm of breast] Onset: 03-19-2024 Episodic Other skin disorders (6 sources) Sebaceous cyst of skin; Translations: [Sebaceous cyst] Onset: 01-28-2014 Resolved: 01-21-2021 01-21-2021 Episodic Residual codes; unclassified (1 source) Pain, unspecified; Translations: [Pain, unspecified] Onset: 09-10-2024 Episodic Screening and history of mental health [...] Translations: [Tobacco use] Onset: 05-25-2017 Episodic Unclassified (15 sources) Abrasion, right knee, initial encounter 01-19-2023 Unclassified (15 sources) Abrasion of right forearm, initial encounter 01-19-2023 Unclassified (19 sources) Contusion of right knee, initial encounter 01-19-2023 Results Test Name Value Interpretation Reference Range Facility Re-Evaluation - PT (1)on Re-Evaluation - PT (1) [facility] [address] [place] [address]. [address] [place] [address] / REEVALUATION / MEDICARE RECERTIFICATION PHYSICAL THERAPY MR#: [id number] Acct: [id number] Name: JODIE CHILEL Rep #: [id number] : 1970 54 From: Nkechi Dumont PT, Cert. MDT Referring Dr.: Dr. Mendel Heredia MD Status:REG R Insurance: [facility] Re-Evaluation Intro: Dr. Mendel Heredia MD, It has been my pleasure to treat JODIE CHILEL over the last 12 visits for PAIN AND ADHESIVE CAPSULITIS R SHLD.. Please see the progress note below for an update on the physical therapy plan of care! Subjective Subjective: THIS PATIENT PRESENTS TO PT TODAY REPORTING SHE IS NO BETTER AND NO WORSE SINCE STARTING PT. SHE STATES SHE HAD AN MANUELITO IN HER NECK BY DR. GEORGE 01/29/25 AND IT IS STARTING TO HELP WITH NECK PAIN 10/26 TODAY. SHE STATES THE NECK SHOT HAS NOT HELPED HER SHLD OR ELBOW PAIN. SHE REPORTS HER R ARM IS COMPLETELY NUMB AND DR. HEREDIA IS AWARE. SHE STATES SHE SAW DR. HEREDIA 01/27/25 AND HER R SHLD MRI IS PENDING 02/22/25. CURRENTLY R SHLD PAIN IS RANGING 3/10 (WITH REST, BIOFREEZE, ICE, VOLTERAN...) TO 8-9/10 (TRYING TO DO HOUSEWORK, REACHING AND JUST USING R ARM). Objective Objective/Function: PATIENT WAS SEEN TODAY FOR RE-ASSESSMENT OF PROGRESS TOWARD THE SET PT GOALS AND THE NEED FOR FURTHER PHYSICAL THERAPY VS READINESS FOR DISCHARGE. THIS PATIENT IS SUBJECTIVELY NOT VERBALLY REPORTING IMPROVEMENT TODAY HOWEVER SHE HAS > 10 POINT IMPROVEMENT ON HER QUICK DASH QUESTIONNAIRE, INCREASED ACTIVE AND PASSIVE ROM OF HER R UE, INCREASED ROM OF HER NECK AND INCREASED R UE STRENGTH. HER PAIN LEVEL REPORTS ARE A LITTLE BIT BETTER TOO BUT SHE CONTINUES TO REPORT MAJOR LOSS OF FUNCTION WITH ADL'S. SHE PLANS TO HAVE MRI AND THEN FOLLOW UP WITH DR. HEREDIA TO DISCUSS NEXT STEPS AFTER GETTING RESULTS. DISCUSSED THERAPY TEST RESULTS WITH PATIENT AND ENCOURAGED PATIENT TO CONTINUE HOME EX PROGRAM, ESPECIALLY TABLE WALK AWAYS, TO THE BEST OF HER ABILITY TOLERATED FOR INCREASING ROM, UNTIL PHYSICIAN FOLLOW UP. PATIENT AGREEABLE. UPON EXAM TODAY: Sensory deficit: PATIENT REPORTS PABLO UE LIGHT TOUCH SENSATION GROSSLY INTACT AND SYMMETRICAL EVEN WITH R FOREARM SCAR, UE TENDERNESS AND C/O NUMBNESS. ROM deficit: AROM R SHLD FLEX 87 DEG, ABD 56 DEG. R ELBOW FLEXION/EXT FULL. R FOREARM, WRIST AND HAND AROM WFL AND PATIENT DENIES INCREASED PAIN AND DOES NOT EXHIBIT PAIN BEHAVIOR WITH TESTING TODAY. ABLE TO FULLY EXTEND R FINGERS AND OPPOSE ALL FINGERS WITH THUMB AND FULLY TUCK THUMB INTO FULLY FORMED FIST TODAY. PASSIVE ROM R SHLD 124 DEG, ABD 68 DEG, ER 54 DEG, IR 64 DEG (ROTATION MEASURED WITH 65 DEG ABD IN SUPINE). Motor deficit: R SHLD 2/5, ELBOW FLEX/EXT 3+/5, FOREARM PRO/SUP 4-/5, WRIST FLEX/EXT 4-/5. 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 L UE WFL. Cervical Mvmt Loss: Flex: NIL Pro: NIL Ext: MOD Ret: JEREMY RSB: MIN LSB: MIN R Rot: MIN L Rot: MIN PATIENT C/O MILD INCREASED CENTRAL NECK PAIN WITH NECK RETRACTION ROM TESTING BUT NW A RESULT. PATIENT DENIES R UE INCREASED SX'S WITH NECK ROM TESTING. Postural strength: POOR. PALPATION: PATIENT HAS TENDERNESS WITH LIGHT PALPATION THROUGHOUT R SHOULDER REGION, R ELBOW, FOREARM AND DORSUM OF R HAND REGIONS. Plan Plan Plan: MRI AND THEN PHYSICIAN FOLLOW UP. HOLD CHART. REQUEST MORE VISITS IF MORE PT INDICATED/ORDERED. Balance/Gait/Functional tests Balance/Special Test Scores Quick DASH Score: 56.8175 Goals Goals Goal 1:: DECREASE C/O R UE PAIN BY AT LEAST 50% TO EASE ADL'S Goal Time Frame: 4-6 Weeks Goal Progress: Progressing Goal 2:: INCREASE R UE FUNCTIONAL ROM TO EASE ADL'S. Goal Time Frame: 4-6 Weeks Goal Progress: Progressing Goal 3:: IMRPOVE R UE FUNCTIONAL STRENGTH TO EASE ADL'S. Goal Time Frame: 4-6 Weeks Goal Progress: Progressing Goal 4:: PATIENT WILL HAVE IMPROVED QUICK DASH SCORE BY AT LEAST 10 POINTS Goal Time Frame: 4-6 Weeks Goal Progress: Goal Met Goal 5:: INDEP HEP Goal Time Frame: 4-6 Weeks Goal Progress: Progressing Anticipated Interventions Anticipated Interventions Patient/Client Instruction: Educate patient on: Condition, Plan of Care and Risk Factors For the Purpose of:: To improve self management Therapeutic Exercise to Include: Strength training, Body mechanics, Postural training, Flexibilty training, Neuromotor development, Passive ROM, Active ROM and Scapular Strength/Stabilization For the Purpose of:: To decrease pain, To decrease swelling/inflammation, To improve muscle performance and motor function, To increase tolerance to activity/condition/positio n, To improve performance and independence with ADL's, To improve ability of physical actions for home/community/work/leisur e, To decrease soft tissue restriction, To increase flexibility/ROM and To facilitate caregiver knowledge M (more content not included)... [facility] Orthopedic Visit Reporton Orthopedic Visit Report [facility] [address] [place] [address] OFFICE VISIT Date of Service: 01/27/25 MR#: [id number] Acct: [id number] Name: CHILELJODIE Rep #: [id number] : 1970 Provider: Dr. Mendel quinones MD Age/Sex: 54/F Location: [facility] Status: Signed Intake Vital Signs 01/02/25 09:28 Height 5 ft Weight: 199 lb BMI 38.8 BP 106/75 Blood Pressure Location Lt brachial Position Sitting Respiration 15 Pulse 96 Pulse Source Monitor Temp 98.2 F Temp Source Temporal Pulse Oximetry (%) 98 Oxygen Delivery Method room air Intake Visit Reasons: RIGHT SHOULDER Chief Complaint: right shoulder pain Accompanied by: Self Is patient in pain?: Yes Pain scale (1-10): 7 Allergies latex Allergy (Verified 01/27/25 10:16) Hives hydromorphone (From Dilaudid) Adverse Reaction (Verified 01/27/25 10:16) Vomiting Medications ???Medication ???Instructions ???Recorded ???Confirmed ???Type atorvastatin 10 mg tablet 10 mg PO DAILY cholesterol lowerin g 02/27/16 01/27/25 History levothyroxine 25 mcg tablet 25 mcg PO DAILY thyroid 02/27/16 0 01/27/25 History metformin 1,000 mg tablet 1,000 mg PO BID blood sugar 01/27/25 History insulin glargine 100 unit/mL (3 18 unit SQ BREAKFAST 05/10/1901/17 History mL) subcutaneous pen alpha lipoic acid 600 mg capsule 600 mg PO DAILY 01/21/21 01/27/25 History ipratropium bromide 17 1 inh inhalation DAILY 01/21/21 History mcg/actuation HFA aerosol inhaler (Atrovent HFA) trazodone 300 mg tablet 300 mg PO QHS 01/21/21 01/27/25 Hi story pregabalin 150 mg capsule 150 mg PO BID 01/03/24 01/27/25 Hi story topiramate 50 mg tablet 50 mg PO Q12H 01/03/24 01/27/25 Hi story trospium 20 mg tablet 20 mg PO QHS 01/03/24 01/27/25 His tory lidocaine 4 % topical patch 1 patch topical QDAY PRN pain #30 08/13/24 01/27/25 Rx (Salonpas (lidocaine)) ea L.acidophil,salivari-Bifid o 1 cap PO Q24H 11/08/24 01/27/25 Hi story bifidum-Strep thermoph 175 mg capsule cyanocobalamin (vitamin B-12) 1,000 mcg PO DAILY 11/08/24 History 1,000 mcg tablet docusate sodium 100 mg capsule 100 mg PO BID PRN 11/08/24 5 History hydrocodone-acetaminophen 5-325mg 1 tab PO TID PRN PRN pain 5 01/27/25 History 5mg-325mg magnesium oxide 500 mg PO DAILY 11/08/24 01/27/25 History semaglutide 0.25 mg or 0.5 mg (2 0.25 mg subcut QWEEK 11/20/2401/17 History mg/3 mL) subcutaneous pen injector (Ozempic) arm brace (Elbow Compression #1 ea 01/02/25 01/27/25 Rx Sleeve) [facility] Medical History (Updated 01/27/25 @ 10:28 by Mendel Heredia MD) Adhesive capsulitis of right shoulder Adhesive bursitis of right shoulder History of [...] made by me, Dr. Mendel Heredia MD 01/27/25 1013. Part of today???s visit was documented by [ ], acting as scribe. JODIE CHILEL is a 54 year old F here today for 6 weeks following up right shoulder adhesive capsulitis. Patient had a cortisone injection helping slightly for the pain but still complains about quite a bit of pain in the neck and the shoulder. Is seeing pain management was asking them for more narcotics last visit. Still having the stiffness despite 6 weeks of formal physical therapy and stretching. Ortho Exam General General: Yes no acute distress Neurologic: Yes alert and Yes oriented x3 Psychologic: Yes reasonable and appropriate Right Shoul (more content not included)... [facility] Hand Min 3 Viewson 5 Hand Min 3 Views [facility] [address] [place] [address] Hand Min 3 Views MR#: [id number] Acct: [id number] Name: CHILELJODIE Rep #: [id number] : 1970 F 54 From: Paul joy MD PCP: Dr. Sophie Huitron MD Status: REG CLI Study: Hand Min 3 Views Date of Exam: 01/22/25 Exam# [id number] Ordering Dr: Lolis Sunshine CHANNEL INSTALLER-Dorothy PROCEDURE: HAND MIN 3 VIEWS 01/22/2025 REASON FOR EXAM: PAIN TECHNIQUE: HAND MIN 3 VIEWS COMPARISON: Radiographs on 12/08/2024. FINDINGS: Unchanged mild degenerative joint disease, more prominent in the 1st carpometacarpal joint. Mild osteopenia of the visualized bones. Degenerative joint disease. No fracture or dislocation is seen. No lytic or blastic bone lesion is noted. RAD/Hand Min 3 Views IMPRESSION: No evidence for acute abnormality. Reading Location: [place] [address] CC: CHANNEL INSTALLER-C Lolis Sunshine; Dr. Sophie Huitron MD Tobacco Stemmer Machine: Signed [facility] Wrist min 3 Viewson 01-23-20 25 Wrist min 3 Views [facility] [address] [place], [place] [id number] Wrist min 3 Views MR#: [id number] Acct: [id number] Name: JODIE CHILEL Rep #: [id number] : 1970 F 54 From: Manuel Yanez MD PCP: Dr. Sophie Huitron MD Status: REG CLI Study: Wrist min 3 Views Date of Exam: 01/22/25 Exam# [id number] Ordering Dr: Lolis Sunshine CHANNEL INSTALLERStef PROCEDURE: WRIST MIN 3 VIEWS 01/22/2025 REASON FOR EXAM: PAIN TECHNIQUE: WRIST MIN 3 VIEWS COMPARISON: 06/21/2024 FINDINGS: No acute bone or soft tissue pathology. No significant wrist osteoarthritis. 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 Reading Location: [place] [address] CC: CHANNEL INSTALLER-C Lolis Sunshine; Dr. Sophie Huitron MD Tobacco Stemmer Machine: Signed [facility] ED MED ADMINISTRATION DETAIL on 01-12-2025 ED MED ADMINISTRATION DETAIL Barrel Marker Medication Administration Record [address] [address] [id number] 01/11/2025 Patient: JODIE CHILEL Sex: Female : 1970 Age: 54y MEASUREMENTS: Wt: 90.7 kg, Ht/Shane: 60.0 in, BMI: 39.06 ALLERGIES: Dilaudid, latex Medication Ordered Medication Administration Date/Time 1 of 1 Normal [facility] ED NURSES CLINICAL NOTEon ED NURSES CLINICAL NOTE Nurse Narrative Nurse Clinical Narrative [address] [address] [id number] 01/11/2025 16:43:00 Patient: JODIE CHILEL Sex: Female : 1970 Age: 54y Disposition: Discharge to Home Disposition Decision Time: 19:22 01/11/2025 Departure Time: 19:01/11/2025 TRIAGE Historian: (patient). Primary physician ([facility]). Triage time: 16:59 01/11/2025. Acuity: LEVEL 4. Chief Complaint: RIGHT UPPER EXTREMITY PAIN. Location of symptoms- right hand. No injury occurred. This started today. -- 17:05 01/11/25 FELISHA Ball R.N. 17:01/11/25. BP: 96/65 MAP: 75. HR: 93. RR: 16. O2 saturation: 98% Temperature: 98.1 F. Pain level now 8/10. (2pm Vicodin 1 tablet). -- 17:01/11/25 FELISHA Ball R.N. 17:01/11/25. SEPSIS SCREEN: NEGATIVE. SIRS criteria negative. No possible sources of infection. -- 17:01/11/25 FELISHA Ball R.N. Measurements: 17:01/11/25 Wt: 90.7 kg, Ht/Shane: 60.0 in, BMI: 39.06 -- 17:01/11/25 FELISHA Ball R.N. Medications: Vitamin B-12 1,000 mcg tablet: 1 tablet once a day. -- 17:01/11/25 FELISHA Ball R.N. Trulicity 1.5 mg/0.5 mL subcutaneous pen injector: 1 pen injector once a week. Stopped 01/11/2025. -- 17:01/11/25 FELISHA Ball R.N. 1 of 4 Nurse Narrative trospium 20 mg tablet: 1 tablet every night at bedtime. -- 17:01/11/25 FELISHA Ball R.N. Trintellix 20 mg tablet: 1 tablet once a day. -- 17:01/11/25 FELISHA Ball R.N. trazodone 300 mg tablet: 1 tablet every night at bedtime. -- 17:01/11/25 FELISHA Ball R.N. topiramate 50 mg tablet: 1 tablet every night at bedtime. -- 17:01/11/25 FELISHA Ball R.N. propranolol ER 60 mg capsule,24 hr,extended release: 1 capsule once a day. -- 17:01/11/25 FELISHA Ball R.N. pregabalin 150 mg capsule: 1 capsule twice a day. -- 17:01/11/25 FELISAH Ball R.N. prednisone 20 mg tablet: 1 tablet twice a day. Stopped 01/11/2025. -- 17:01/11/25 FELISHA Ball R.N. Ozempic 1 mg/dose (4 mg/3 mL) subcutaneous pen injector: 1 mg once a week. (on Monday) -- 17:01/11/25 FELISHA Ball R.N. metformin 500 mg tablet: 1 tablet twice a day. -- 17:01/11/25 FELISHA Ball R.N. magnesium oxide 500 mg capsule: 1 mg once a day. -- 17:01/11/25 FELISHA Ball R.N. Lidocaine Pain Relief 4 % topical patch: 1 patch as needed. -- 17:01/11/25 FELISHA Ball R.N. levothyroxine 25 mcg tablet: 1 tablet once a day. -- 17:01/11/25 FELISHA Ball R.N. hydrocodone 5 mg-acetaminophen 325 mg tablet: 1 tablet every four hours as needed. -- 17:01/11/25 FELISHA Ball R.N. atorvastatin 10 mg tablet: 1 tablet once a day. -- 17:01/11/25 FELISHA Ball R.N. alpha lipoic acid 600 mg capsule: 1 capsule twice a day. -- 17:01/11/25 FELISHA Ball R.N. 16:59 01/11/25. Preferred Pharmacy: ([facility]). -- 17:05 01/11/25 FELISHA Ball R.N. Allergies: Dilaudid -- 17:01/11/25 FELISHA Ball R.N. latex -- 17:01/11/25 FELISHA Ball R.N. Home Medications/Allergy Information Source: patient -- 17:01/11/25 FELISHA Ball R.N. Problems: Diabetes Mellitus Type 2 -- 17:02 01/11/25 FELISHA Ball R.N. Hypothyroidism -- 17:02 01/11/25 FELISHA Ball R.N. Surgeries: right arm -- 17:02 01/11/25 FELISHA Ball R.N. 2 of 4 Nurse Narrative Hysterectomy -- 17:02 01/11/25 FELISHA Ball R.N. Cholecystectomy -- 17:02 01/11/25 FELISHA Ball R.N. Appendectomy -- 17:02 01/11/25 FELISHA Ball R.N. History 16:59 01/11/25. PAST MEDICAL HX: Immunizations: up-to-date. LNMP: No menstrual periods. Denies current . SOCIAL HX: Current every day heavy tobacco smoker- 1 pack per day. No alcohol use or drug use. The patient has not traveled outside the [place] Infectious disease exposure: No infectious disease exposure. ABUSE ASSESSMENT: The patient answered yes to the question(s) Do you feel safe in your home? and no to the question(s) Are you afraid to go home?. Abuse denied. SELF HARM ASSESSMENT: Self harm assessment was performed. The patient answered no to the question(s) Have you recently felt down, depressed, or hopeless? and Do you have thoughts of harming or killing yourself?. FALL RISK ASSESSMENT: Fall risk assessment completed. No risk factors identified. -- 17:05 01/11/25 EDT Camryn Ball R.N. Interventions 16:59 01/11/25. Advanced care plan discussed with patient (pt states she would not like resuscitation). -- 17:05 01/11/25 FELISHA Ball R.N. PHYSICAL ASSESSMENT 18:52 01/11/25. Ambulatory to room. GENERAL / NEURO / PSYCH: Oriented X 4. Alert. Appears in no acute distress. EXTREMITIES: Limited ROM present. Neuro-vascular status intact to the extremity. No upper extremity edema. Right hand: tenderne (more content not included)... [facility] ED ORDER SHEET (CPOE ONLY)on 01-12-2025 ED ORDER SHEET (CPOE ONLY) Order Sheet Order Sheet [address] [place] [address] [id number] 01/11/2025 Patient: JODIE CHILEL Sex: Female : 1970 Age: 54y MEASUREMENTS: Wt: 90.7 kg, Ht/Shane: 60.0 in, BMI: 39.06 ALLERGIES: Dilaudid, latex MEDICATION/IV/DRIP/FLUID ORDERS Order Description Priority Entered Acknowledged Completed LAB ORDERS Order Description Priority Entered Acknowledged Collected Completed DIAGNOSTIC STUDY ORDERS Order Description Priority Entered Acknowledged Completed Hand R 3V Stat Stat 18:43 01/11/2025 18:46 19:18 Brett Wise, 01/11/2025 01/11/2025 Dariela Bills, Alida Bills R.N. RCiarraNCiarra Reason for Study: Pain,Trauma/Injury STAFF ORDERS Order Description Priority Entered Acknowledged Collected Completed [Electronically signed by Brett Wise D.O. (01/12/2025 08:08 EDT)] 1 of 1 Normal [facility] ED PHYSICIAN CLINICAL REPORT on 01-12-2025 ED PHYSICIAN CLINICAL REPORT Narrative Physician Clinical Narrative [address] [address] [id number] 01/11/2025 16:43:00 Patient: JODIE CHILEL Sex: Female : 1970 Age: 54y Disposition: Discharge to Home Disposition Decision Time: 19:22 01/11/2025 Departure Time: 19:27 01/11/2025 Measurements Wt: 90.7 kg, Ht/Shane: 60.0 in, BMI: 39.06 Initial Vital Sign Measured Time BP MAP HR RR O2Sat ETCO2 Temp Pain GCS RTS 17:04 01/11/2025 96/65 75 93 16 98% 98.1 F 8 Time Seen: 18:27 01/11/2025. Arrived- By private vehicle. Historian- patient. HISTORY OF PRESENT ILLNESS Chief Complaint: UPPER EXTREMITY PAIN and SWELLING. This started today and is still present (patient says she woke up this morning and she had swelling in her right hand. Since I sit for 45 minutes in the pain and swelling dissipated shows has some pain she is in pain management. She points to pain along the 2nd metacarpal bone. She denies any fevers chills nausea or vomiting.). Patient denies an injury. REVIEW OF SYSTEMS NEUROLOGICAL: No headache. THROAT: No sore throat. GI: No nausea. : No difficulty with urination, urinary frequency or vaginal discharge. CONSTITUTIONAL: No fever or chills. 1 of 4 Narrative PAST HISTORY See nurses notes. Diabetes Mellitus Type 2 Hypothyroidism Surgeries: Appendectomy Cholecystectomy Hysterectomy right arm Medications: alpha lipoic acid 600 mg capsule: 1 capsule twice a day. atorvastatin 10 mg tablet: 1 tablet once a day. hydrocodone 5 mg-acetaminophen 325 mg tablet: 1 tablet every four hours as needed. levothyroxine 25 mcg tablet: 1 tablet once a day. Lidocaine Pain Relief 4 % topical patch: 1 patch as needed. magnesium oxide 500 mg capsule: 1 mg once a day. metformin 500 mg tablet: 1 tablet twice a day. Ozempic 1 mg/dose (4 mg/3 mL) subcutaneous pen injector: 1 mg once a week. (on Monday) prednisone 20 mg tablet: 1 tablet twice a day. Stopped 01/11/2025. pregabalin 150 mg capsule: 1 capsule twice a day. propranolol ER 60 mg capsule,24 hr,extended release: 1 capsule once a day. topiramate 50 mg tablet: 1 tablet every night at bedtime. trazodone 300 mg tablet: 1 tablet every night at bedtime. Trintellix 20 mg tablet: 1 tablet once a day. trospium 20 mg tablet: 1 tablet every night at bedtime. Trulicity 1.5 mg/0.5 mL subcutaneous pen injector: 1 pen injector once a week. Stopped 01/11/2025. Vitamin B-12 1,000 mcg tablet: 1 tablet once a day. Allergies: Dilaudid latex Home Medications/Allergy Information Source: patient - Camryn Ball R.N., 01/11/2025 17:01 EDT 2 of 4 Narrative SOCIAL HISTORY Current every day smoker. No alcohol use. ADDITIONAL NOTES The nursing notes have been reviewed. PHYSICAL EXAM Appearance: Alert. Oriented X3. No acute distress. Eyes: Eyes normal inspection. ENT: Ears normal. Nose normal. Neck: Normal inspection. Neck supple. CVS: Normal heart rate and rhythm. Respiratory: No respiratory distress. Painless inspiration. Abdomen: Soft and nontender. Back: Normal inspection. No tenderness. Skin: Skin warm and dry. Normal skin color. Normal skin turgor. Extremities: Extremities otherwise negative. Neuro: Oriented X 3. No motor deficit. PROGRESS AND PROCEDURES Splint Application: OCL splint applied to right hand, wrist and forearm. Reassessed extremity following splint application. Neurovascular intact. Splinting applied by me. MEDICAL DECISION MAKING: (patient says she woke up this morning and she had swelling in her right hand. Since I sit for 45 minutes in the pain and swelling dissipated shows has some pain she is in pain management. She points to pain along the 2nd metacarpal bone. She denies any fevers chills nausea or vomiting. patient had x-ray obtained which is unremarkable for fracture. He would place her in a 2 in OCL splint for comfort. I do not really appreciate swelling at this time. She had pictures which are difficult to ascertain a swollen was but swelling it is improved. She did have tenderness. I see no obvious swelling ecchymosis or bruising. She has felt Dr. Issa in 2 days and return for any problems consent). Disposition: Condition: stable. Discharged in fair condition. Discharge decision based on the following: patient's condition is stable; patient's exam is stable. 3 of 4 Narrative CLINICAL IMPRESSION Acute nontraumatic pain in the right upper extremity (hand). (edema of right hand cause not clear.). DISCHARGE INSTRUCTIONS Apply ice. Elevate affected areas above chest level. Wear splint. Follow-up with: Sophie Huitron doctor, Phone: [phone], [address] [place], [place] [address]. (rest. ice 15 minutes 4-6 hours. use splint as needed. return if increasing pain problems.). (Electronically signed (more content not included)... Normal [facility] ED [facility] 01-12-[address] [place] [address] [phone] 01/11/2025 Patient: JODIE CHILEL Sex: Female : 1970 Age: 54y Item Professional Category Description Facility Code Code Quantity Fee Total Nurse/E/M EMERGENCY 492327 1 $0.00 $0.00 DEPARTMENT VISIT MODERATE SEVERITY (20144-16) Grand Total $0.00 Providers Brett Wise D.O. Chief Complaint UPPER EXTREMITY PAIN and SWELLING. Principal Diagnosis Acute nontraumatic pain in the right upper extremity (hand). (edema of right hand cause not clear.). 1 of 2 Superbill ICD-10 Codes M79.641: Pain in right hand 2 of 2 Normal [facility] ED VISIT SUMMARYon ED VISIT SUMMARY Visit Overview Visit Overview [address] [place] [address] [phone] 01/11/2025 Patient: JODIE CHILEL Sex: Female : 1970 Age: 54y 01/12/2025 08:08 AM EDT ED Arrival:16:43 01/11/2025 EDT Status:not Recent Travel:no Language:eng Adv Directive: Isolation Status: Ethnicity:N Fall Risk:no risk Infectious Disease Exposure:no Measurements:5' / 152.4 Self-Harm Status:risk Sepsis Screen:negative cm 200.0 lb / 90.7 kg Chief Complaint:right hand, RIGHT UPPER EXTREMITY PAIN, and (Midol) ALLERGIES Dilaudid latex HOME MEDICATIONS alpha lipoic acid 600 mg capsule: 1 capsule twice a day. atorvastatin 10 mg tablet: 1 tablet once a day. hydrocodone 5 mg-acetaminophen 325 mg tablet: 1 tablet every four hours as needed. levothyroxine 25 mcg tablet: 1 tablet once a day. Lidocaine Pain Relief 4 % topical patch: 1 patch as needed. 1 of 3 Visit Overview magnesium oxide 500 mg capsule: 1 mg once a day. metformin 500 mg tablet: 1 tablet twice a day. Ozempic 1 mg/dose (4 mg/3 mL) subcutaneous pen injector: 1 mg once a week. (on Monday) prednisone 20 mg tablet: 1 tablet twice a day. Stopped 01/11/2025. pregabalin 150 mg capsule: 1 capsule twice a day. propranolol ER 60 mg capsule,24 hr,extended release: 1 capsule once a day. topiramate 50 mg tablet: 1 tablet every night at bedtime. trazodone 300 mg tablet: 1 tablet every night at bedtime. Trintellix 20 mg tablet: 1 tablet once a day. trospium 20 mg tablet: 1 tablet every night at bedtime. Trulicity 1.5 mg/0.5 mL subcutaneous pen injector: 1 pen injector once a week. Stopped 01/11/2025. Vitamin B-12 1,000 mcg tablet: 1 tablet once a day. PAST MEDICAL HISTORY / PROBLEMS Diabetes Mellitus Type 2 Hypothyroidism Immunizations: up-to-date LNMP: No menstrual periods See nurses notes PAST SURGICAL HISTORY Appendectomy Cholecystectomy Hysterectomy right arm SOCIAL HISTORY Smoking status: Yes Alcohol use: No Drug use: No ED COURSE MEDICATIONS GIVEN IN EMERGENCY DEPARTMENT IV SITE INFORMATION 2 of 3 Visit Overview INTAKE OUTPUT REASSESMENT (most recent) 18:52 01/11/25. Ambulatory to room. GENERAL / NEURO / PSYCH: Oriented X 4. Alert. Appears in no acute distress. EXTREMITIES: Limited ROM present. Neuro-vascular status intact to the extremity. No upper extremity edema. Right hand: tenderness (patient reports that hand was swollen earlier today). SKIN: Skin is warm and dry. VITAL SIGNS First Vitals Last Vitals Temp 17:04 01/11/25 98.1 F Temp 19:24 01/11/25 BP 17:04 01/11/25 96/65 BP 19:24 01/11/25 112/82 HR 17:04 01/11/25 93 HR 19:24 01/11/25 78 RR 17:04 01/11/25 16 RR 19:24 01/11/25 16 O2 Sat 17:04 01/11/25 98% O2 Sat 19:24 01/11/25 98% RA Pain 17:04 01/11/25 8 Pain 19:24 01/11/25 6 ETCO2 17:04 01/11/25 ETCO2 19:24 01/11/25 GCS 17:04 01/11/25 GCS 19:24 01/11/25 RTS 17:04 01/11/25 RTS 19:24 01/11/25 PROCEDURES NURSING INTERVENTIONS LABS / STUDIES LABS / STUDIES ORDERED Hand R 3V CLINICAL IMPRESSION ACUTE NONTRAUMATIC PAIN IN THE RIGHT UPPER EXTREMITY (HAND) 3 of 3 Normal [facility] ED VITALS FLOW SHEETon 01-12 ED VITALS FLOW SHEET Vitals Vital Sign Flow Sheet [address] [place] [address] [phone] 01/11/2025 Patient: JODIE CHILEL Sex: Female : 1970 Age: 54y Measurements Wt: 90.7 kg, Ht/Shane: 60.0 in, BMI: 39.06 Measured Time BP MAP HR RR O2Sat ETCO2 Temp Pain GCS RTS 19:24 01/11/2025 112/82 92 78 16 98% RA 6 17:04 01/11/2025 96/65 75 93 16 98% 98.1 F 8 1 of 1 Normal [facility] HAND RT MIN 3 VIEWSon 2024 HAND RT MIN 3 [address] [place] [address] Patient: JODIE CHILEL. Phone#: : 1970 Age: 54 Gender: F Pt. Type: ER Account: [id number] Location: [facility] Ordering: BRETT WISE Exam Date: 01/11/2025/18:59 Family Phys: SOPHIE BRADLEYJONATHAN Charge Code: [id number] Physician: [place] Order #: [id number] Dose#: PROCEDURE: X-RAY HAND RT COMPLETE MIN 3 VIEWS COMPARISON: None. INDICATIONS: Pain. FINDINGS: BONES: Diffuse bony demineralization. No significant arthropathy or acute abnormality. No fracture or dislocation. SOFT TISSUES: Mild soft tissue swelling EFFUSION: None visible. OTHER: Negative. CONCLUSION: No acute osseous abnormality Dictated by: Saskia Bee MD on 01/12/2025 at 14:15 Approved by: Saskia Bee MD on 01/12/2025 at 14:21 [facility] Neurology Visit Reporton Neurology Visit Report [facility] [address], [address] [place] [address] OFFICE VISIT Date of Service: 01/02/25 MR#: [id number] Acct: [id number] Name: JODIE CHILEL Rep #: [id number] : 1970 Provider: REAGAN porter Age/Sex: 54/F Location: [facility] Status: Signed HPI HPI Chief Complaint: Follow up Details: History of present illness: Mrs. Chilel is a 54-year-old right handed female originally referred to neurology by her primary care physician Dr. Sophie Huitron for headaches. She established care with Dr. Moss on 08/13/2024. Pertinent past medical history includes diabetes, diabetic neuropathy (on pregabalin, managed by her PCP), and psychiatric disability. She is a current smoker. Surgical history includes lumbar surgery with fusion (2021) and corrective surgery for amblyopia. Her headaches began approximately in January 2024; [...] be secondary to her cervicalgia and cervical spondylosis, with the most severe being at the C5-6 level as demonstrated on recent CT and MRI imaging. An EMG/NCS of her bilateral upper extremities was conducted 11/12/2024. 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 No cervical radiculopathy was identified. She had presented to the ED 09/02/2024 for evaluation of severe headache. She did receive a prescription for Valium for cervical spasm, but declines to use Valium. Because the patient makes frequent visits to the ED, she was referred to pain management Dr. Holloway so that a scheduled routine management of her pain could be established. Treatment is currently underway and includes cervical steroid injections, hydrocodone???acetaminophe n 5-325mg 3 times daily as needed, and pregabalin 150 mg daily previously prescribed for diabetic neuropathy. Interim history: Patient presents to neurology today for a follow-up appointment. She was last seen by myself on 11/20/2024. Previous visit was to address acute progressive right shoulder pain and tenderness resulting in a referral to orthopedics and instructions to follow-up with pain management who she is already established with for cervicalgia and chronic pain. Patient established with orthopedics on 11/26/2024. At this visit, she received a subacromial injection in her right shoulder for adhesive capsulitis. She was referred to physical therapy which is currently underway. Patient has had return of some shoulder mobility compared to her previous visit. Patient was recently in the emergency department on 12/08/2024 after sustaining a mechanical fall. Several x-rays were conducted (right shoulder, elbow, and hand) and patient was deemed to have a contusion and abrasion, there was no evidence of fracture. Imaging is available on chart review. She was medicated with hydrocodone for pain. On today's exam, patient appears to have some improvement with her overall pain and discomfort in her neck. She is however frustrated with the slow process of treatment. Emotional support was provided and her questions about the plan of care were addressed. Patient states that she is currently awaiting insurance approval for further cervical injections. Headaches are not a pressing issue for the patient at this time. Her chief complaint today was her elbow tenderness/discomfort stating that she just wants surgery. Conservative measures were discussed. Per patient, pain management had prescribed diclofenac gel to be applied to the area. Systemic steroids are suggested to be avoided in the setting of her diabetes. An elbow compression sleeve may provide her with some relief. ROS: General: No fatigue. No recent weight loss/gain. No recent illness. No fevers. Recent mechanical fall prompting emergency room presentation. Neuro: Positive for fluctuating headaches. RUE subjective weakness and numbness/tingling. No tremors. Cardio: No palpitations. No chest pain or discomfort. No edema. Respiratory: No cough. No shortness of breath. No wheezing. Current smoker, approximately 1ppd. PHYSICAL EXAM: Constitutional: Well-developed, well-nourished right-handed female. Psych: Cooperative. Patient has fluctuating emotions throughout exam becoming tearful expressing frustration. Respiratory: Normal effort. Symmetric chest movement. Clear to auscultation bilaterally. Card (more content not included)... [facility] Elbow min 3 Viewson 12-09-19 Elbow min 3 Views [facility] Imaging Services [address] [place] [address] Elbow min 3 Views MR#: [id number] Acct: [id number] Name: JODIE CHILEL Rep #: [id number] : 1970 F 54 From: Eunice Luis PCP: Dr. Sophie Huitron MD Status: DEP ER Study: Elbow min 3 Views Date of Exam: 12/08/24 Exam# [id number] Ordering Dr: Mathew Santiago MD PROCEDURE: ELBOW MIN 3 VIEWS 12/08/2024 REASON FOR EXAM: INJURY/PAIN TECHNIQUE: ELBOW MIN 3 VIEWS COMPARISON: None RAD/Elbow min 3 Views IMPRESSION: No acute fracture or dislocations. Mild degenerative changes of the elbow. No large joint effusion. No acute soft tissue abnormalities. No radiographic foreign body. Reading Location: [facility] CC: Dr. Sophie Huitron MD; Dr. Mathew Santiago MD Tobacco Stemmer Machine: Signed [facility] Emergency Department Summary on 12-08-2024 Emergency Department Summary [facility] Medical Records Department [address] [place] [address] Emergency Department Summary 12/08/24 MR#: [id number] Acct: [id number] Name: JODIE CHILEL Rep #: [id number] : 1970 54 From: Mathew Santiago MD PCP: Dr. Sophie Huitron MD Status:REG ER Location: ED HPI History of Present Illness Chief Complaint: Fall Detail of Chief Complaint: Manner Aquilla fall forward injuring her right and left knee, right should Informant: patient Onset/Context/Timing Onset: Today and Hours Mechanism/Context: Blunt Injury and Fall Location of pain/injuries: Right shoulder, Right elbow and Right hand Current Severity: Mild Maximum Severity: Moderate Worsened by: Attempt to move right upper extremity Relieved by: Nothing Associated Symptoms Associated Symptoms: Positive for Loss of function (History of frozen right shoulder.); Negative for Parasthesias, Weakness, Inability to ambulate, Loss of consciousness or Amnesia Narrative Narrative: Patient is a 54-year-old woman. She had mechanical fall. She injured her right shoulder, elbow and hand. She also has abrasion with pain to her right and left knee. She denies head trauma. She is not amnestic. She denies neck pain. She denies paresthesia, anesthesia or motor weakness of upper or lower extremity. She is on no anticoagulant. She denies cardiac or respiratory symptoms. She denies GI symptoms typically black-maroon stool. She denies trouble with speech or swallowing. Prior similar symptoms: Yes Recent Illness/Hospitalization: No PFSH PFS Medical History Adhesive bursitis of right shoulder History of [...] mg PO QHS 01/03/24 Unknown Hist ory lidocaine 4 % topical patch 1 patch topical QDAY PRN pain #30 08/13/24 Unknown Rx (Salonpas (lidocaine)) ea L.acidophil,salivari-Bifid o 1 [...] mg PO DAILY 11/08/24 Unknown H istory semaglutide 0.25 mg or 0.5 mg (2 0.25 mg subcut QWEEK 11/20/24 Unkn own History mg/3 mL) subcutaneous pen injector (Ozempic) Allergy/AdvReac Type Severity Reaction Status Date / Time latex Allergy Hives Verified 11/26/24 09:32 hydromorphone (From Dilaudid) AdvReac Vomiting Verified 11/26/24 09:32 Family History Mother , 58 Heart disease [...] Constitutional Constitutional ED: Denies chills or fever(s) Eyes Eyes: Denies blurry (more content not included)... [facility] Hand Min 3 Viewson Hand Min 3 Views [facility] Imaging Services [address] [place] [address] Hand Min 3 Views MR#: [id number] Acct: [id number] Name: JODIE CHILEL Rep #: [id number] : 1970 F 54 From: Eunice Luis PCP: Dr. Sophie Huitron MD Status: DEP ER Study: Hand Min 3 Views Date of Exam: 12/08/24 Exam# [id number] Ordering Dr: Mathew Santiago MD PROCEDURE: HAND MIN 3 VIEWS 12/08/2024 REASON FOR EXAM: INJURY/PAIN TECHNIQUE: HAND MIN 3 VIEWS COMPARISON: 06/21/2024 RAD/Hand Min 3 Views IMPRESSION: No acute fracture or dislocations. Scattered mild degenerative changes. No acute soft tissue abnormalities. No radiographic foreign body. Reading Location: [facility] CC: Dr. Sophie Huitron MD; Dr. Mathew Santiago MD Tobacco Stemmer Machine: Signed [facility] Shoulder min 2 Viewson 12-08 Shoulder min 2 Views [facility] Imaging Services [address] [place], [place] [id number] Shoulder min 2 Views MR#: [id number] Acct: [id number] Name: JODIE CHILEL Rep #: [id number] : 1970 F 54 From: Eunice Luis PCP: Dr. Sophie Huitron MD Status: DEP ER Study: Shoulder min 2 Views Date of Exam: 12/08/24 Exam# [id number] Ordering Dr: Mathew Santiago MD PROCEDURE: SHOULDER MIN 2 VIEWS 12/08/2024 REASON FOR EXAM: INJURY/PAIN TECHNIQUE: SHOULDER MIN 2 VIEWS COMPARISON: 11/26/2024 RAD/Shoulder min 2 Views IMPRESSION: No acute fracture or dislocations. Minimal degenerative changes of the glenohumeral joint. No acute soft tissue abnormalities. No radiographic foreign body. Reading Location: [facility] CC: Dr. Sophie Huitron MD; Dr. Mathew Santiago MD Tobacco Stemmer Machine: Signed [facility] Inital Evaluation (1) - PTon 12-02-2024 Inital Evaluation (1) - PT [facility] Physical Therapy [facility] [address] [place] [address] / REHABILITATION SERVICES INITIAL EVALUATION MR#: [id number] Acct: [id number] Name: JODIE CHILEL Rep #: [id number] : 1970 54 From: Nkechi Dumont PT, Cert. MDT Referring Dr.: Dr. 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 PATIENT REPORTS SHE WAS ALREADY HAVING HEADACHES BEFORE MOVING THE COUCH (SINCE BEFORE AS 2023) AND SHE COULD MOVE HER R [...] NO Imaging: ALSO OTHER IMAGING - SEE [facility] EMR. IMPRESSION: Ywym-zu-nlmuncvq disc osteophyte at C5-6 effacing the thecal [...] currently occult fracture. PMH/Recent major surgery: SEE [facility] EMR. 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 SHE STATES SHE CAN NOT DISHES AND [...] FLEX/EXT 3+ (more content not included)... [facility] Orthopedic Visit Reporton Orthopedic Visit Report [facility] [address] [place] [address] OFFICE VISIT Date of Service: 11/26/24 MR#: [id number] Acct: [id number] Name: JODIE CHILEL Rep #: [id number] : 1970 Provider: Dr. Mendel quinones MD Age/Sex: 54/F Location: [facility]SE Status: Signed Intake Vital Signs 11/20/24 09:57 [...] mg (2 0.25 mg subcut QWEEK 11/20/2411/17 History mg/3 mL) subcutaneous pen injector (Ozempic) [facility] Medical History (Updated 11/26/24 @ 09:48 by [...] trauma to (more content not included)... Normal [facility] Shoulder min 2 Viewson 11-26 Shoulder min 2 Views [facility] Imaging Services [address] [place], [place] [id number] Shoulder min 2 Views MR#: [id number] Acct: [id number] Name: JODIE CHILEL Rep #: [id number] : 1970 F 54 From: Jana Luis PCP: Dr. Sophie Huitron MD Status: DEP AMB Study: Shoulder min 2 Views Date of Exam: 11/26/24 Exam# [id number] Ordering Dr: Mendel Heredia MD PROCEDURE: SHOULDER [...] out a currently occult fracture. Reading Location: [address] CC: Dr. Sophie Huitron MD; Dr. Mnedel Heredia MD Tobacco Stemmer Machine: Signed [facility] Neurology Visit Reporton Neurology Visit Report [facility] [address] [place] [id number] OFFICE VISIT Date of Service: 11/20/24 MR#: [id number] Acct: [id number] Name: JODIE CHILEL Rep #: [id number] : 1970 Provider: Dr. Efe holloway MD Age/Sex: 54/F Location: [place].BN Status: Signed HPI HPI Chief Complaint: Acute visit for right shoulder [...] median mononeuropathy (more content not included)... [facility] NCS and/or EMG Patienton NCS and/or EMG Patient [facility] Pulmonary Services/Neurology [address] [place] [address] MR#: [id number] Acct: [id number] Name: JODIE CHILEL Rep #: [id number] : 1970 54 From: Geneva Meneses MD Referring Dr: Jodie Hills CHANNEL INSTALLER-C Status: REG CL I Location: [facility] Date: 11/12/24 Sex: F C NCS and/or [...] this region. Multi Select Codes Neurology Neurology Inter Codes: 00975-01 Musc test done w/n test comp (interp) (2) and 02564-37 Nrv cndj test 13/> studies (interp) 11/12/24 1043 Date Geneva Meneses MD CC: REAGAN [place]; Dr. Geneva Meneses MD; Dr. Sophie Huitron MD Date Dictated: 11/12/24 1017 Date Transcribed: 11/12/241016 Tobacco Stemmer Machine: Signed [facility] Absolute lymphocyte countOrd ered By: Alhaji Piper on 11-08-2024 Lymphocytes Auto (Unsp spec) [#/Vol] 3.15 10*3/uL 0.83-4.51 [facility] Absolute neutrophil countOrd ered By: Alhaji Piper on 11-08-2024 Neutrophils (Bld) [#/Vol] 6.1 10*3/uL 2.0-7.7 [facility] Anion gap in Serum or Plasma Ordered By: Alhaji Piper on 11-08-2024 Anion gap [Moles/Vol] 13 mmol/L - [facility] Automated lymphocyte count a s percentage of total leukocytesOrdered By: Alhaji Piper on 11-08-2024 Lymphocytes/100 WBC Auto (Unsp spec) 30.4 % [facility] BUN/creatinine ratioOrdered By: Alhaji Piper on 11-08-2024 Urea nitrogen/Creatinine [Mass ratio] 21.8 mg/mg High 04-07 [facility] Basic Metabolic Profile (BMP )on 11-08-2024 BUN/CRE 21.8 RATIO High 04-07 [facility] Comment on above: Performed By: #### L 500.3400, L100.0100, L500.2500, L501.2450 ####[facility] [address] [place], [address] Calcium [Mass/Vol] 9.2 mg/dL Normal 7.6-11.0 [facility] Comment on above: Performed By: #### L 500.3400, L100.0100, L500.2500, L501.2450 ####[facility] [address] [place], [address] Chloride [Moles/Vol] 105 mmol/L Normal 98-108 [facility] Comment on above: Performed By: #### L 500.3400, L100.0100, L500.2500, L501.2450 ####[facility] [address] [place], [address] CO2 [Moles/Vol] 20.8 mmol/L Low 21.0-32.0 [facility] Comment on above: Performed By: #### L 500.3400, L100.0100, L500.2500, L501.2450 ####[facility] [address] [place], [address] Creatinine [Mass/Vol] 0.77 mg/dL Normal 0.70-1.20 [facility] Comment on above: Performed By: #### L 500.3400, L100.0100, L500.2500, L501.2450 ####[facility] [address] [place], [address] ECRCL 86.38 ml/min Normal 50-250 [facility] Comment on above: Performed By: #### L 500.3400, L100.0100, L500.2500, L501.2450 ####[facility] [address] [place], [address] GAP 13 Normal 5-15 [facility] Comment on above: Performed By: #### L 500.3400, L100.0100, L500.2500, L501.2450 ####[facility] [address] [place], [address] GFR/1.73 sq M.predicted among non-blacks MDRD (S/P/Bld) [Vol rate/Area] 92 mL/min/{1.73_m2} Normal >60 [facility] Comment on above: Result Comment: mL/m in/1.73m2 CKD-EPI Creatinine Equation (2020) Performed By: #### L 500.3400, L100.0100, L500.2500, L501.2450 ####[facility] [address] [place], [address] Glucose [Mass/Vol] 183 mg/dL High 70-99 [facility] Comment on above: Performed By: #### L 500.3400, L100.0100, L500.2500, L501.2450 ####[facility] [address] [place], [address] Potassium [Moles/Vol] 3.5 mmol/L Normal 3.3-5.1 [facility] Comment on above: Performed By: #### L 500.3400, L100.0100, L500.2500, L501.2450 ####[facility] [address] [place], [address] Sodium [Moles/Vol] 139 mmol/L Normal 133-145 [facility] Comment on above: Performed By: #### L 500.3400, L100.0100, L500.2500, L501.2450 ####[facility] [address] [place], [address] Urea nitrogen [Mass/Vol] 17 mg/dL Normal 4-19 [facility] Comment on above: Performed By: #### L 500.3400, L100.0100, L500.2500, L501.2450 ####[facility] [address] [place], [address] Basophil percentageOrdered B y: Alhaji Beardehne on 11-08-2024 Basophils/100 WBC (Bld) 0.5 % 0-1 [facility] Bilirubin directOrdered By: Alhaji Piper on 11-08-2024 Bilirubin.direct [Mass/Vol] 0.24 mg/dL 0.00-0.30 [facility] Bilirubin, totalOrdered By: Alhaji iPper on 11-08-2024 Bilirubin [Mass/Vol] 0.51 mg/dL 0.00-1.30 [facility] CBC W/Diff, Automatedon 10-18 Absolute Lymph 3.15 X10 3/uL Normal 0.83-4.51 [facility] Comment on above: Performed By: #### L 500.3400, L100.0100, L500.2500, L501.2450 ####[facility] [address] [place], [address] Absolute Neut 6.1 X10 3/uL Normal 2.0-7.7 [facility] Comment on above: Performed By: #### L 500.3400, L100.0100, L500.2500, L501.2450 ####[facility] [address] [place], [address] Basophils/100 WBC (Bld) 0.5 % Normal 0-1 [facility] Comment on above: Performed By: #### L 500.3400, L100.0100, L500.2500, L501.2450 ####[facility] [address] [place], [address] Eosinophils/100 WBC (Bld) 1.5 % Normal 0-5 [facility] Comment on above: Performed By: #### L 500.3400, L100.0100, L500.2500, L501.2450 ####[facility] [address] [place], [address] Erythrocyte distribution width (RBC) [Ratio] 14.1 % Normal 11.6-14.6 [facility] Comment on above: Performed By: #### L 500.3400, L100.0100, L500.2500, L501.2450 ####[facility] [address] [place], [address] Hematocrit (Bld) [Volume fraction] 43.5 % Normal 37-47 [facility] Comment on above: Performed By: #### L 500.3400, L100.0100, L500.2500, L501.2450 ####[facility] [address] [place], [address] Hemoglobin (Bld) [Mass/Vol] 14.9 g/dL Normal 12.0-15.0 [facility] Comment on above: Performed By: #### L 500.3400, L100.0100, L500.2500, L501.2450 ####[facility] [address] [place], [address] IG% 0.400 Normal 0.0-0.9 [facility] Comment on above: Result Comment: IG% - Immature Granulocytes (promyelocytes, myelocytes and metamyelocytes) > 1% indicates that a LEFT SHIFT is Present. Performed By: #### L 500.3400, L100.0100, L500.2500, L501.2450 ####[facility] [address] [place], [address] Lymphocytes/100 WBC (Bld) 30.4 % Normal 19-41 [facility] Comment on above: Performed By: #### L 500.3400, L100.0100, L500.2500, L501.2450 ####[facility] [address] [place], [address] MCH (RBC) [Entitic mass] 29.8 pg Normal 27.0-32.0 [facility] Comment on above: Performed By: #### L 500.3400, L100.0100, L500.2500, L501.2450 ####[facility] [address] [place], [address] MCHC (RBC) [Mass/Vol] 34.3 g/dL Normal 32-36 [facility] Comment on above: Performed By: #### L 500.3400, L100.0100, L500.2500, L501.2450 ####[facility] [address] [place], [address] MCV (RBC) [Entitic vol] 87.0 fL Normal 81-99 [facility] Comment on above: Performed By: #### L 500.3400, L100.0100, L500.2500, L501.2450 ####[facility] [address] [place], [address] Monocytes/100 WBC (Bld) 8.6 % Normal 0-10 [facility] Comment on above: Performed By: #### L 500.3400, L100.0100, L500.2500, L501.2450 ####[facility] [address] [place], [address] Neutrophils/100 WBC (Bld) 58.6 % Normal 47-70 [facility] Comment on above: Performed By: #### L 500.3400, L100.0100, L500.2500, L501.2450 ####[facility] [address] [place], [address] Nucleated RBC (Bld) [#/Vol] 0 10*3/uL Normal 0-5 [facility] Comment on above: Performed By: #### L 500.3400, L100.0100, L500.2500, L501.2450 ####[facility] [address] [place], [address] Platelet mean volume (Bld) [Entitic vol] 9.9 fL Normal 6.2-12.0 [facility] Comment on above: Performed By: #### L 500.3400, L100.0100, L500.2500, L501.2450 ####[facility] [address] [place], [address] Platelets (Bld) [#/Vol] 208 10*3/uL Normal 150-450 [facility] Comment on above: Performed By: #### L 500.3400, L100.0100, L500.2500, L501.2450 ####[facility] [address] [place], [address] RBC (Bld) [#/Vol] 5.00 10*6/uL Normal 4.2-5.4 [facility] Comment on above: Performed By: #### L 500.3400, L100.0100, L500.2500, L501.2450 ####[facility] [address] [place], [address] RDW SD 44.8 fl High 35.1-43.9 [facility] Comment on above: Performed By: #### L 500.3400, L100.0100, L500.2500, L501.2450 ####[facility] [address] [place], [address] WBC (Bld) [#/Vol] 10.4 10*3/uL Normal 4.4-11.0 [facility] Comment on above: Performed By: #### L 500.3400, L100.0100, L500.2500, L501.2450 ####[facility] [address] [place], [address] Carbon dioxide, total [Moles /volume] in Central venous bloodOrdered By: Alhaji Piper on 11-08-2024 CO2 [Moles/Vol] 20.8 mmol/L Low 21.0-32.0 [facility] Chloride assayOrdered By: Tyrone Piper on 11-08-2024 Chloride [Moles/Vol] 105 mmol/L 98-108 [facility] Emergency Department Summary on 11-08-2024 Emergency Department Summary [facility] Medical Records Department [address] [place] [address] Emergency Department Summary 11/08/24 MR#: [id number] Acct: [id number] Name: JODIE CHILEL Rep #: [id number] : 1970 54 From: Alhaji Piper DO [...] been lower than normal. [facility]vers. [facility] Medical History History of tobacco use Encounter [...] Reports abdomi (more content not included)... Normal [facility] Eosinophil percentageOrdered By: Alhaji Piper on 11-08-2024 Eosinophils/100 WBC (Bld) 1.5 % 0-5 [facility] Erythrocyte distribution wid th ratioOrdered By: Alhaji Piper on 11-08-2024 Erythrocyte distribution width (RBC) [Ratio] 14.1 % 11.6-14.6 [facility] Erythrocyte distribution wid th standard deviationOrdered By: Alhaji Piper on 11-08-2024 Erythrocyte distribution width (RBC) [Ratio] 44.8 fl High 35.1-43.9 [facility] Glomerular filtration rate ( GFR) estimation/1.73 sq m using serum, plasma, or whole bOrdered By: Alhaji Piper on 11-08-2024 GFR/1.73 sq M.predicted among non-blacks MDRD (S/P/Bld) [Vol rate/Area] 92 mL/min/{1.73_m2} >60 [facility] Comment on above: mL/min/1.73m2 CKD-EP I Creatinine Equation (2020) Hematocrit Auto (Bld) [Volum e fraction]Ordered By: Alhaji Piper on 11-08-2024 Hematocrit (Bld) [Volume fraction] 43.5 % 37-47 [facility] Hemoglobin measurementOrdere d By: Alhaji Piper on 11-08-2024 Hemoglobin (Bld) [Mass/Vol] 14.9 g/dL 12.0-15.0 [facility] Immature granulocytes/100 WB C Auto (Bld)Ordered By: Alhaji Piper on 11-08-2024 Immature granulocytes/100 WBC (Bld) 0.400 % 0.0-0.9 [facility] Comment on above: IG% - Immature Granu locytes (promyelocytes, myelocytes and metamyelocytes) > 1% indicates that a LEFT SHIFT is Present. Laboratory - Chemistry and C hemistry - challengeOrdered By: Alhaji Piper on 11-08-2024 AST [Catalytic activity/Vol] 44 U/L High <32 [facility] Lipaseon 11-08-2024 Lipase [Catalytic activity/Vol] 26 U/L Normal 13-75 [facility] Comment on above: Result Comment: Plea se note: LIPASE revised reference range effective 22. New Lipase methodology. Expected to produce lower values than the previous assay method. NEW Reference Range: 13 - 75 U/L Performed By: #### L 500.3400, L100.0100, L500.2500, L501.2450 ####[facility] [address] [place], [place], [address] Lipase measurementOrdered By : Alhaji Piper on 11-08-2024 Lipase [Catalytic activity/Vol] 26 U/L 13-75 [facility] Comment on above: Please note:LIPASE r evised reference range effective 22. New Lipase methodology. Expected to produce lower values than the previous assay method. NEW Reference Range: 13 - 75 U/L Liver Profileon 11-08-2024 Albumin [Mass/Vol] 4.2 g/dL Normal 3.5-5.0 [facility] Comment on above: Performed By: #### L 500.3400, L100.0100, L500.2500, L501.2450 ####[facility] [address] [place], [address] ALK PHOS 69 U/L Normal 35-104 [facility] Comment on above: Performed By: #### L 500.3400, L100.0100, L500.2500, L501.2450 ####[facility] [address] [place], [address] ALT [Catalytic activity/Vol] 40 U/L High <=34 [facility] Comment on above: Performed By: #### L 500.3400, L100.0100, L500.2500, L501.2450 ####[facility] [address] [place], [address] AST [Catalytic activity/Vol] 44 U/L High <=31 [facility] Comment on above: Performed By: #### L 500.3400, L100.0100, L500.2500, L501.2450 ####[facility] [address] [place], [address] Bilirubin [Mass/Vol] 0.51 mg/dL Normal 0.00-1.30 [facility] Comment on above: Performed By: #### L 500.3400, L100.0100, L500.2500, L501.2450 ####[facility] [address] [place], [address] Bilirubin.direct [Mass/Vol] 0.24 mg/dL Normal 0.00-0.30 [facility] Comment on above: Performed By: #### L 500.3400, L100.0100, L500.2500, L501.2450 ####[facility] [address] [place], [address] Globulin (S) [Mass/Vol] 2.9 g/dL Normal 2.2-4.2 [facility] Comment on above: Performed By: #### L 500.3400, L100.0100, L500.2500, L501.2450 ####[facility] [address] [place], [address] T PROT 7.1 g/dL Normal 5.9-8.4 [facility] Comment on above: Performed By: #### L 500.3400, L100.0100, L500.2500, L501.2450 ####[facility] [address] [place], [address] MCV (mean corpuscular volume ) determinationOrdered By: Alhaji Piper on 11-08-2024 MCV (RBC) [Entitic vol] 87.0 fL 81-99 [facility] Mean corpuscular hemoglobin (MCH) determinationOrdered By: Alhaji Piper on 11-08-2024 MCH (RBC) [Entitic mass] 29.8 pg 27.0-32.0 [facility] Mean corpuscular hemoglobin concentration (MCHC) determinationOrdered By: Alhaji Piper on 11-08-2024 MCHC (RBC) [Mass/Vol] 34.3 g/dL 32-36 [facility] Mean platelet volume determi nationOrdered By: Alhaji Piper on 11-08-2024 Platelet mean volume (Bld) [Entitic vol] 9.9 fL 6.2-12.0 [facility] Monocyte percentageOrdered B y: Alhaji Piper on 11-08-2024 Monocytes/100 WBC (Bld) 8.6 % 0-10 [facility] Neutrophil percentageOrdered By: Alhaji Piper on 11-08-2024 Neutrophils/100 WBC (Bld) 58.6 % 47-70 [facility] Nucleated red blood cell per centageOrdered By: Alhaji Piper on 11-08-2024 Nucleated RBC/100 WBC (Bld) [Ratio] 0 % 0-5 [facility] Platelet countOrdered By: Tyrone Piper on 11-08-2024 Platelets (Bld) [#/Vol] 208 10*3/uL 150-450 [facility] Potassium measurement (mass/ volume)Ordered By: Alhaji Piper on 11-08-2024 Potassium (Unsp spec) [Mass/Vol] 3.5 mmol/L 3.3-5.1 [facility] RBC Auto (Bld) [#/Vol]Ordere d By: Alhaji Piper on 11-08-2024 RBC (Bld) [#/Vol] 5.00 10*6/uL 4.2-5.4 [facility] Serum creatinine measurement (mass/volume)Ordered By: Alhaji Piper on 11-08-2024 Creatinine [Mass/Vol] 0.77 mg/dL 0.70-1.20 [facility] Serum globulin measurementOr dered By: Alhaji Piper on 11-08-2024 Globulin (S) [Mass/Vol] 2.9 g/dL 2.2-4.2 [facility] Serum glucose measurement (m ass/volume)Ordered By: Alhaji Piper on 11-08-2024 Glucose [Mass/Vol] 183 mg/dL High 70-99 [facility] Serum or plasma alanine vásquez otransferase (ALT) measurementOrdered By: Alhaji Piper on 11-08-2024 ALT [Catalytic activity/Vol] 40 U/L High <35 [facility] Serum or plasma albumin reggie urement (mass/volume)Ordered By: Alhaji Piper on 11-08-2024 Albumin [Mass/Vol] 4.2 g/dL 3.5-5.0 [facility] Serum or plasma alkaline adriana sphatase measurementOrdered By: Alhaji Piper on 11-08-2024 ALP [Catalytic activity/Vol] 69 U/L 35-104 [facility] Serum or plasma calcium reggie urement (mass/volume)Ordered By: Alhaji Piper on 11-08-2024 Calcium [Mass/Vol] 9.2 mg/dL 7.6-11.0 [facility] Serum or plasma urea nitroge n measurement (mass/volume)Ordered By: Alhaji Piper on 11-08-2024 Urea nitrogen [Mass/Vol] 17 mg/dL 4-19 [facility] Sodium levelOrdered By: Marino Piper on 11-08-2024 Sodium [Moles/Vol] 139 mmol/L 133-145 [facility] Total proteinOrdered By: Ilir Piper on 11-08-2024 Protein [Mass/Vol] 7.1 g/dL 5.9-8.4 [facility] White blood cell (WBC) count Ordered By: Alhaji Piper on 11-08-2024 WBC (Bld) [#/Vol] 10.4 10*3/uL 4.4-11.0 [facility] Calculated very low density lipoprotein (VLDL) cholesterol measurementOrdered By: Sophie Huitron on 10-11-2024 Calculated very low density lipoprotein (VLDL) cholesterol measurement 28 mg/dL 5-40 [facility] LDL calc ser/plasOrdered By: Sophie Huitron on 10-11-2024 Cholesterol in LDL [Mass/Vol] 74 mg/dL [facility] Comment on above: Nvorpeaxti=381-979 m g/dL & Higher Lcud=351 mg/dL or greater Lipid Profileon 10-11-2024 CHOL:HDL 2.78 Normal [facility] Comment on above: Performed By: #### L 500.4100, L502.0250, L501.9520 ####[facility] [address] [place], [place], [address] Cholesterol [Mass/Vol] 160 mg/dL Normal <=200 [facility] Comment on above: Result Comment: Chol esterol level, Desirable <200 mg/dL Borderline high cholesterol 200-239 mg/dL High cholesterol >=240 mg/dL Recommendations of the NCEP Adult Treatment Panel for the following risk-cutoff thresholds for the [place] population. Performed By: #### L 500.4100, L502.0250, L501.9520 ####[facility] [address] [facility] [place], [place], [address] Cholesterol in HDL [Mass/Vol] 58 mg/dL Normal [facility] Comment on above: Result Comment: Liane onal Cholesterol Education Program (NCEP) guidelines: <40 mg/dL: Low HDL-cholesterol (major risk factor for CHD) >= 60 mg/dL: High HDL-cholesterol (negative risk factor for CHD) HDL-cholesterol is affected by a number of factors, e.g. smoking, exercise, hormones, sex and age. Performed By: #### L 500.4100, L502.0250, L501.9520 ####[facility] [address] [place], [address] Cholesterol in LDL [Mass/Vol] 74 mg/dL Normal [facility] Comment on above: Result Comment: Bord xbcuiz=906-408 mg/dL Higher Ionm=439 mg/dL or greater Performed By: #### L 500.4100, L502.0250, L501.9520 ####[facility] [address] [place], [address] Cholesterol in VLDL [Mass/Vol] 28 mg/dL Normal 5-40 [facility] Comment on above: Performed By: #### L 500.4100, L502.0250, L501.9520 ####[facility] [address] [place], [address] Triglyceride [Mass/Vol] 141 mg/dL Normal [facility] Comment on above: Result Comment: The drugs N-Acetylcysteine and Metamizole may falsely depress this assay. Normal range: <150 mg/dL Borderline High: 150-199 mg/dL High: 200-499 mg/dL Very High: >500 mg/dL Performed By: #### L 500.4100, L502.0250, L501.9520 ####[facility] [address] [place], [address] Microalb:Creat Ratio,Random URon 10-11-2024 Creatinine [Mass/Vol] 106.00 mg/dL Normal 28.00- 217.0 0 [facility] Comment on above: Performed By: #### L 500.4100, L502.0250, L501.9520 ####[facility] [address] [place], [address] MALB:CREAT UNABLE TO CALCULATE Normal [facility] Comment on above: Performed By: #### L 500.4100, L502.0250, L501.9520 ####[facility] [address] [place], [place], [address] MICROALBUMIN,UR < 12.0 Normal NO RANGE EST. [facility] Comment on above: Performed By: #### L 500.4100, L502.0250, L501.9520 ####[facility] [address] [place], [place], [address] Microalbumin/creat ratio urO rdered By: Sophie Huitron on 10-11-2024 Urine microalbumin/creatinin e ratio measurement UNABLE TO CALCULATE mg/g CRE [facility] Random urine creatinine reggie urement (mass/volume)Ordered By: Sophie Huitron on 10-11-2024 Creatinine Unsp time (U) [Mass/Vol] 106.00 mg/dL 28.00-217.0 0 [facility] Screening total cholesterol/ high density lipoprotein (HDL) cholesterol ratioOrdered By: Sophie Huitron on 10-11-2024 Cholesterol.total/Chol esterol in HDL [Mass ratio] 2.78 {ratio} [facility] Serum or plasma cholesterol in HDL measurement (mass/volume)Ordered By: Sophie Huitron on 10-11-2024 Cholesterol in HDL [Mass/Vol] 58 mg/dL >40 [facility] Comment on above: National Cholesterol Education Program (NCEP) guidelines:<40 mg/dL: Low HDL-cholesterol (major risk factor for CHD)>= 60 mg/dL: High HDL-cholesterol (negative risk factor for CHD)HDL-cholesterol is affected by a number of factors, e.g. smoking, exercise, hormones, sex and age. Serum or plasma cholesterol measurement (mass/volume)Ordered By: Sophie Huitron on 10-11-2024 Cholesterol [Mass/Vol] 160 mg/dL <201 [facility] Comment on above: Cholesterol level, D esirable <200 mg/dLBorderline high cholesterol 200-239 mg/dLHigh cholesterol >=240 mg/dLRecommendations of the NCEP Adult Treatment Panel for the following risk-cutoff thresholds for the [place] population. TSH DL <= 0.005 mIU/L QnOrde red By: Sophie Huitron on 10-11-2024 TSH Qn 1.190 uIU/mL 0.300-4.200 [facility] Thyroid Stim Hormone (TSH)on 10-11-2024 TSH 1.190 uIU/mL Normal 0.300-4.200 [facility] Comment on above: Performed By: #### L 500.4100, L502.0250, L501.9520 ####[facility] [address] [place], [address] Triglycerides measurementOrd ered By: Sophie Huitron on 10-11-2024 Triglyceride [Mass/Vol] 141 mg/dL <199 [facility] Comment on above: The drugs N-Acetylcy steine and Metamizole may falsely depress this assay. Normal range: <150 mg/dLBorderline High: 150-199 mg/dLHigh: 200-499 mg/dLVery High: >500 mg/dL Urine albumin measurement [facility] detection limit of 20 mg/L or less (mass/volume)Ordered By: Sophie Huitron on 10-11-2024 Albumin DL <= 20 mg/L (U) [Mass/Vol] < 12.0 mg/L NO RANGE EST. [facility] Neurology Visit Reporton Neurology Visit Report [facility] [address], [address] [place] [address] OFFICE VISIT Date of Service: 10/02/24 MR#: [id number] Acct: [id number] Name: JODIE CHILEL Rep #: [id number] : 1970 Provider: REAGAN porter Age/Sex: 54/F Location: [facility]. Status: Signed HPI HPI Chief Complaint: Follow-up [...] hand weakness. (more content not included)... Normal [facility] Breast imaging reportOrdered By: Candy Singletary on 09-23-2024 Study report [facility] [address] [place] [address] SCRN MAMM (CAD)W/FELECIA MCKEON MR#: [id number] Acct: [id number] Name: JODIE CHILEL Rep #: [id number] : 1970 F 54 From: Dewayne Singletary DO PCP: Dr. Sophie Huitron MD Status: [facility] CLI Study:SCRN MAMM (CAD)W/FELECIA BILAT Date of Exa m: 09/23/24 Exam# [id number] Ordering Dr: Kasey Huitron MD EXAM: SCRN [...] be mailed to the patient. Reading Location: [id number] CC: Dr. Sophie Huitron MD ~ Tobacco Stemmer Machine: Signed [facility] SCRN MAMM (CAD)W/FELECIA BILATo n 09-23-2024 SCRN MAMM (CAD)W/FELECIA BILAT [facility] [address] [place] [address] SCRN MAMM (CAD)W/FELECIA BILAT MR#: [id number] Acct: [id number] Name: JODIE CHILEL Rep #: [id number] : 1970 F 54 From: Candy Yang PCP: Dr. Sophie Huitron MD Status: REG CLI Study: SCRN MAMM (CAD)W/FELECIA BILAT Date of Exam: 01/10 Exam# [id number] Ordering Dr: Sophie Huitron MD EXAM: SCRN [...] be mailed to the patient. Reading Location: [id number] CC: Dr. Sophie Huitron MD Tobacco Stemmer Machine: Signed Normal [facility] Magnetic resonance imaging r eportOrdered By: Luis Romero on 09-15-2024 Study report [facility] [address] [place] [address] Spine Cervical (Routine) MR#: [id number] Acct: [id number] Name: JODIE CHILEL Rep #: [id number] : 1970 F 54 From: Pet er Macey DO PCP: Dr. 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 No significant spinal canal or neural foraminal stenosis other levels Reading [facility] CC: [facility] INSTALL[place]te[place]; Dr. Sophie Huitron MD ~ Tobacco Stemmer Machine: Signed [facility] Brain without Contraston Brain without Contrast [facility] [address] [place] [address] Brain without Contrast MR#: [id number] Acct: [id number] Name: JODIE CHILEL Rep #: [id number] : 1970 F 54 From: Luis Romero DO PCP: Dr. Sophie Huitron MD Status: REG CLI Study: Brain without Contrast Date of Exam: 09/14/24 Exam# [id number] Ordering Dr: Jodie Hills CHANNEL INSTALLERStef PROCEDURE: BRAIN WITHOUT CONTRAST N/A REASON FOR [...] Contrast IMPRESSION: No acute process. Reading Location[facility] CC: [place]; Dr. Sophie Huitron MD Tobacco Stemmer Machine: Signed Normal [facility] Magnetic resonance imaging r eportOrdered By: Luis Romero on 09-14-2024 Study report [facility] [address] [place], [place] [address] Brain without Contrast MR#: [id number] Acct: [id number] Name: JODIE CHILEL Rep #: [id number] : 1970 F 54 From: Pet er Peer DO PCP: Dr. Sophie Huitron MD Status: REG CLI Study:Brain without Contrast Date of Exam: 09/14/24 Exam# [id number] Ordering Dr: Jodie Hills CHANNEL INSTALLER-Dorothy PROCEDURE: BRAIN WITHOUT CONTRAST N/A REASON FOR [...] Contrast IMPRESSION: No acute process. Reading Location[facility] CC: [place]; Dr. Sophie Huitron MD ~ Tobacco Stemmer Machine: Signed [facility] Spine Cervical (Routine)on 0 09-14-2024 Spine Cervical (Routine) [facility] [address] [place] [address] Spine Cervical (Routine) MR#: [id number] Acct: [id number] Name: JODIE CHILEL Rep #: [id number] : 1970 F 54 From: Luis Romero DO PCP: Dr. Sophie Huitron MD Status: REG CLI Study: Spine Cervical (Routine) Date of Exam: Exam# [id number] Ordering Dr: Jodie Hills CHANNEL INSTALLER-C PROCEDURE: SPINE CERVICAL (ROUTINE) 09/14/2024 REASON FOR [...] Unremarkable C7-T1: Unremarkable MRI/Spine Cervical (Routine) IMPRESSION: Zbon-zh-lnntxald disc osteophyte at C5-6 effacing the thecal sac and centrally indenting the spinal cord by superimposed midline extrusion. No significant spinal canal or neural foraminal stenosis other levels Reading Location: [facility] CC: [place] INST[place]; Dr. Sophie Huitron MD Tobacco Stemmer Machine: Signed Normal [facility] CNCOon 09-12-2024 CNCO Letter Text Normal [facility] CNOVon 09-12-2024 CNOV Office Visit (INTMWS ) -- JODIE CHILEL ([id number]) 1970 F Date Time Provider Department 09/12/24 9:40 AM NACHO CORNELL During your visit today, we recorded the following information about you: Pulse Respiration Blood pressure Weight 84/minute 16/minute 110/76 95 kg Height 1.51 m Nacho Cornell APRN.PAD ASSEMBLER 09/12/2024 10:04 AM Signed Subjective Patient ID: [...] the office. She was seen in the [facility] emergency department August 05, 2023. Review of OSH notes indicate she reported blood sugars in the 500 range. She reported polyuria polydipsia lightheadedness and nausea. Due to medication shortage she was provided with Trulicity 0.75 mg to be taken twice daily as her usual dose was not available. She was provided with a 2-week supply from [facility] pharmacy. She was advised to [...] daily headache for which she is taking vdgr-opu-ttvfelu migraine medicine with Tylenol aspirin and caffeine 4 times daily. Notes it has been effective. She was seen for JAELYN and sleep medicine. Noted declines [facility]. Noted due to dental condition likely would [...] 158 06/23/19 (more content not included)... Normal [facility] Neurology Visit Reporton Neurology Visit Report [facility] [address], [address] [place] [address] OFFICE VISIT Date of Service: 09/10/24 MR#: [id number] Acct: [id number] Name: JODIE CHILEL Rep #: [id number] : 1970 Provider: Dr. Efe holloway MD Age/Sex: 54/F Location: [facility]. Status: Signed HPI HPI Details: The patient [...] recalls and I seen him in her [place] chart. 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 Normal [facility] Brain/Head without Contrasto n 09-02-2024 Brain/Head without Contrast [facility] [address] [place], [place] [address] Brain/Head without Contrast MR#: [id number] Acct: [id number] Name: JODIE CHILEL Rep #: [id number] : 1970 F 54 From: Saul mckenzie MD PCP: Dr. Sophie Huitron MD Status: REG ER Study: Brain/Head without Contrast Date of Exam: 08/17 01/10 Exam# [id number] Ordering Dr: Ulysses Ceballos DO EXAM: CT [...] intracranial findings. CLINICAL HISTORY: HEADACHE [facility] CC: Dr. Sophie Huitron MD; Dr. Ulysses Ceballos DO Tobacco Stemmer Machine: Signed Normal [facility] Emergency Department Summary on 09-02-2024 Emergency Department Summary [facility] Medical Records Department [address] [place] [address] Emergency Department Summary 09/02/24 MR#: [id number] Acct: [id number] Name: JODIE CHILEL Rep #: [id number] : 1970 54 From: Ulysses Garcia PCP: [...] is throbbing today. Prior similar symptoms: Yes PFSH PFSH Medical History History of tobacco use [...] or extremity (more content not included)... Normal [facility] Spine Cervical without Contr ason 09-02-2024 Spine Cervical without Contras [facility] [address] [place] [address] Spine Cervical without Contras MR#: [id number] Acct: [id number] Name: JODIE CHILEL Rep #: [id number] : 1970 F 54 From: Shree Church MD PCP: Dr. Sophie Huitron MD Status: REG ER Study: Spine Cervical without Contras Date of Exam: 0 09/02/24 Exam# [id number] Ordering Dr: Ulysses Ceballos DO PROCEDURE: SPINE [...] right and mild/moderate on the left. C6-7: Ghdvhcnp-sg-ecupac loss of disc height with diffuse disc [...] 3. Additional description as above. Reading Location: [id number] CC: Dr. Sophie Huitron MD; Dr. Ulysses Ceballos DO Tobacco Stemmer Machine: Signed Normal [facility] Neurology Visit Reporton Neurology Visit Report [facility] [address], [address] [place] [address] OFFICE VISIT Date of Service: 08/13/24 MR#: [id number] Acct: [id number] Name: GETACHEWJODIE Darcy Rep #: [id number] : 1970 Provider: Dr. Efe holloway MD Age/Sex: 54/F Location: [facility]. Status: Signed HPI HPI Chief Complaint: Establish Care Details: The patient is a 54-year-old right handed female who presents to [facility]. She was referred 07/09/[address] Sophie Huitron with [facility] for migraines. This lady presents for evaluation [...] was 0 for 3. 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 No obvious delusions or [...] be obtai (more content not included)... Normal [facility] Emergency Department Summary on 07-22-2024 Emergency Department Summary [facility] Medical Records Department [address] [place] [address] [place] [address] Emergency Department Summary 07/22/24 MR#: [id number] Acct: [id number] Name: JODIE CHILEL Rep #: [id number] : 1970 54 From: Patrick Manrique DO [...] did vomited once secondary to the pain. [facility] Medical History History of tobacco use Encounter [...] Atraumatic, no (more content not included)... Normal [facility] Orthopedic Visit Reporton Orthopedic Visit Report [facility] [address] [place] [address] [address] [place] [address] OFFICE VISIT Date of Service: 06/21/24 MR#: [id number] Acct: [id number] Name: JODIE CHILEL Rep #: [id number] : 1970 Provider: Dr. Efe mcgrath DO Age/Sex: 53/F Location: [facility].JOSE Status: Signed Intake Vital Signs 06/15/24 08:58 [...] the decisions made by me, Dr. Efe Pryor, DO 06/21/24 0810. Part of today???s visit [...] was super painful and she went to [facility] and they did an ultrasound and [...] a brace on the left wrist that [facility] gave her. Patient denies numbness/tingling. Patient states the whole left wrist bothers her and goes all t (more content not included)... Normal [facility] Wrist min 3 Viewson 06-21-19 25 Wrist min 3 Views [facility] [address] [place] [address] Wrist min 3 Views MR#: [id number] Acct: [id number] Name: JODIE CHILEL Rep #: [id number] : 1970 F 53 From: Osiel Luis PCP: Dr. Sophie Huitron MD Status: DEP AMB Study: Wrist min 3 Views Date of Exam: 06/21/24 Exam# [id number] Ordering Dr: Efe Pryor DO [id number] INDICATION: Pain EXAMINATION/TECHNIQUE: X-RAY - RIGHT XR [...] Sophie Huitron MD; Dr. Efe Pryor DO Tobacco Stemmer Machine: Signed Normal [facility] Wrist min 3 Views [facility] [address] [place] [address] Wrist min 3 Views MR#: [id number] Acct: [id number] Name: CHILELJODIE Rep #: [id number] : 1970 F 53 From: Osiel Luis PCP: Dr. Sophie Huitron MD Status: DEP AMB Study: Wrist min 3 Views Date of Exam: 06/21/24 Exam# [id number] Ordering Dr: Efe Pryor DO [id number] INDICATION: Pain EXAMINATION/TECHNIQUE: X-RAY - LEFT XR [...] Sophie Huitron MD; Dr. Efe Pryor DO Tobacco Stemmer Machine: Signed Normal [facility] ED MED ADMINISTRATION DETAIL on 06-16-2024 ED MED ADMINISTRATION DETAIL Barrel Marker Medication Administration Record [address] [address] [id number] 06/15/2024 Patient: JODIE CHILEL Sex: Female : [...] Candice precautions. Verbalizes understanding. - 21:45 Yair Turner, R.N. Not Scanned Ondansetron ODT 21:45 06/15 Ondansetron ODT PO 4 mg given. Allergies verified Given PO 4 mg (NOW x1) and confirmed 5 rights. Information reviewed with patient including 21:45 06/15/2024 reason for taking this medication, signs of allergic reaction and Candice precautions. Verbalizes understanding. - 21:45 Yair Turner, R.N. Not Scanned OxyCODONE PO 5 22:44 06/15 OxyCODONE PO 5 mg given. Allergies verified and Given mg (NOW x1, HIGH confirmed 5 rights. Information reviewed with patient including 22:44 06/15/2024 ALERT sedative warning. Verbalizes understanding. - 22:45 Alida Irwin Yair Bills MEDICATION) Yair Bills Scanned 1 of 1 Normal [facility] ED NURSES CLINICAL NOTEon ED NURSES CLINICAL NOTE Nurse Narrative Nurse Clinical Narrative [facility] [address] [place] [address] [phone] 06/15/2024 Patient: JODIE CHILEL Sex: Female : [...] upper extremity, upper arm and hand. 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 Splinting applied by [facility]. SEPSIS SCREEN: NEGATIVE. SIRS criteria negative. No possible sources of infection. (21:02 06/15/2024). -- 21:02 06/15/24 GORDY Cowan R.N. 20:58 06/15/24. BP: 146/85 (regular cuff) taken on left arm, while lying. MAP: 105. HR: 83. RR: 18. O2 saturation: 94% Temperature: 98.1 F (oral). Pain level now 8/10. Describes the pain as throbbing. Intermittent. -- 21:06/15/24 GORDY Cowan R.N. Measurements: 21:02 06/15/24 Wt: 95.3 kg, Ht/Shane: 60.0 in, BMI: 41.01 -- 21:06/15/24 GORDY Cowan R.N. 1 of 5 Nurse Narrative Medications: FreeStyle Jalil 14 Day Sensor kit -- 21:10 06/15/24 GORDY Cowan R.N. Trulicity 1.5 mg/0.5 mL subcutaneous pen injector -- 21:06/15/24 GORDY Cowan R.N.Updated through eRx -- 21:06/15/24 GORDY Cowan R.N. Vitamin B-12 1,000 mcg tablet: TAKE 1 TABLET BY MOUTH EVERY OTHER DAY -- 21:10 06/15/24 GORDY Cowan R.N.Updated through eRx -- 21:06/15/24 GORDY Cowan R.N. Trintellix 20 mg tablet -- 21:06/15/24 GORDY Cowan R.N.Updated through eRx -- 21:06/15/24 GORDY Cowan R.N. trospium 20 mg tablet -- 21:06/15/24 GORDY Cowan R.N.Updated through eRx -- 21:06/15/24 GORDY Cowan R.N. trazodone 300 mg tablet -- 21:06/15/24 GORDY Coawn R.N.Updated through eRx -- 21:06/15/24 GORDY Cowan [...] eRx -- 21:19 06/15/24 GORDY Cowan R.N. levothyroxine 25 mcg tablet -- 21:06/15/24 GORDY Cowan R.N.Updated through eRx -- 21:06/15/24 GORDY Cowan R.N. hydrocodone 5 mg-acetaminophen 325 mg tablet -- 21:06/15/24 GORDY Cowan R.N.Updated through eRx -- 21:06/15/24 GORDY Cowan R.N. atorvastatin 10 mg tablet -- 21:06/15/24 GORDY Cowan R.N.Updated through eRx -- 21:06/15/24 GORDY Cowan R.N. alpha lipoic [...] a day. -- 21:06/15/24 GORDY Cowan R.N. trospium 20 mg tablet: 1 tablet every night at bedtime. -- 21:06/15/24 GORDY Cowan R.N. trazodone 300 mg tablet: 1 tablet every night at bedtime. -- 21:06/15/24 GORDY Cowan R.N. topiramate 50 mg tablet: 1 tablet every night at bedtime. -- 21:19 06/15/24 GORDY Cowan R.N. pregabalin 150 mg capsule: 1 capsule twice a day. -- 21:19 06/15/24 GORDY Cowan R.N. prednisone 20 mg tablet: 1 tablet twice a day. -- 21:19 06/15/24 EST Candice Cowan R.N. 2 of 5 Nurse Narrative magnesium oxide 500 mg capsule: 1 mg once a day. -- 21:19 06/15/24 EST Candice Cowan R.N. levothyroxine 25 mcg tablet: 1 tablet once a day. -- 21:19 06/15/24 EST Candice Cowan R.N. hydrocodone 5 mg-acetaminophen 325 mg tablet: 1 tablet every four hours as needed for pain. -- 21:06/15/24 EST Candice Cowan R.N. atorvastatin 10 mg tablet: 1 tablet once a day. -- 21:06/15/24 EST Candice Cowan R.N. alpha lipoic acid 600 mg capsule: 1 capsule once a day. -- 21:06/15/24 EST Candice Cowan R.N. Allergies: Dilaudid -- 20:53 12 (more content not included)... Normal [facility] ED ORDER SHEET (CPOE ONLY)on 06-16-2024 ED ORDER SHEET (CPOE ONLY) Order Sheet Order Sheet [address] [address] [id number] 06/15/2024 Patient: JODIE CHILEL Sex: Female : 1970 Age: 53y MEASUREMENTS: Wt: 95.3 kg, Ht/Shane: 60.0 in, BMI: 41.01 ALLERGIES: Dilaudid, latex MEDICATION/IV/DRIP/FLUID ORDERS Order Description Priority Entered Acknowledged Completed Ibuprofen (Motrin) PO600 mg 21:07 06/15/2024 21:22 21:45 (NOW x1) Juliet Tan M.D. 06/15/2024 06/15/2024 Camryn Kramer R.N. RIrina. Ondansetron ODT PO4 mg 21:07 06/15/2024 21:22 [...] 21:46 06/15/2024 Candice Avitia M.D., Deusenberry, R.N. RJcarlos DIAGNOSTIC STUDY ORDERS Order Description Priority Entered Acknowledged Completed STAFF ORDERS Order Description Priority Entered Acknowledged Collected Completed Splint (UE) 22:38 06/15/2024 22:47 06/15/2024 23:03 06/15/2024 Quentin Avitia Bryan Parker, M.D. E.M.TCiarra-PCiarra JimenezTCiarra-PCiarra [Electronically signed by Juliet Tan M.D. (06/15/2024 23:36 EST)] 2 of 2 Normal [facility] ED PHYSICIAN CLINICAL REPORT on 06-16-2024 ED PHYSICIAN CLINICAL REPORT Narrative Physician Clinical Narrative [address] [address] [id number] 06/15/2024 Patient: JODIE CHILEL Sex: Female : [...] the bilateral hands. Was seen earlier at [place] for erythema and pain of the right hand. In the interim has developed same symptoms in the left hand so presented for evaluation and 2nd opinion. There they advised that this may represent gout and started patient on prednisone and [place]. Per patient she does not have a [...] 21:51 MON (more content not included)... Normal [facility] ED [facility] [address] [address] [phone] 06/15/2024 Patient: JODIE CHILEL Sex: Female : 1970 Age: 53y Item Facility Professional Category Description Code Code Quantity Fee Total Nurse/E/M EMERGENCY 831932 1 $0.00 $0.00 DEPARTMENT VISIT MODERATE SEVERITY (11801-59) Physician/Procedures Splint - Fingers 811817 1 $0.00 $0.00 (47175-WG) Grand Total $0.00 Providers Juliet Tan M.D. Chief Complaint Injury. (b/l hand pain). Principal Diagnosis Acute nontraumatic pain in the right upper extremity (hand) and left upper extremity (hand). 1 of 2 [facility] ICD-10 Codes M79.641: Pain in right hand M79.642: Pain in left hand 2 of 2 Normal [facility] ED VISIT SUMMARYon ED VISIT SUMMARY Visit Overview Visit Overview [address] [address] [id number] 06/15/2024 Patient: JODIE CHILEL Sex: Female : [...] RIGHT UPPER EXTREMITY SWELLING, (21:02 06/15/2024), and ([facility]) ALLERGIES Dilaudid latex HOME MEDICATIONS alpha lipoic acid 600 mg capsule: 1 capsule once a day. 4 Visit Overview atorvastatin 10 mg tablet: [...] was seen and diagnosed with Gout at [facility] earlier today for pain in her right [...] UPPER EXTREMITY (HAND) 4 of 4 Normal [facility] ED VITALS FLOW SHEETon 06-16 ED VITALS FLOW SHEET Vitals Vital Sign Flow Sheet [address] [place] [address] [id number] 06/15/2024 Patient: JODIE CHILEL [facility]#: [id number] Sex: Female : 1970 Age: 53y Measurements [...] 98.1 F 8 1 of 1 Normal [facility] CBC + DIFFon 06-15-2024 Baso # 0.01 x10EE3/UL Normal 0.00 - 0.10 [facility] Comment on above: Performed By: #### 2 34634 ####[facility],[address] [place] [address] Basophils/100 WBC (Bld) 0.2 % Normal 0.0 - 2.0 [facility] Comment on above: Performed By: #### 2 91656 ####[facility],[address] [place] [address] CBC + DIFF Normal [facility] Comment on above: Result Comment: CBC- COMPLETE BLOOD COUNT Performed By: #### 2 17597 ####[facility],[address] [place] [address] EO # 0.05 x10EE3/UL Normal 0.00 - 0.50 [facility] Comment on above: Performed By: #### 2 85455 ####[facility],[address] [place] [address] Eosinophils/100 WBC (Bld) 0.7 % Normal 0.0 - 7.0 [facility] Comment on above: Performed By: #### 2 05758 ####[facility],[address] [place] [address] Erythrocyte distribution width (RBC) [Ratio] 14.3 % Normal 12.0 - 15.6 [facility] Comment on above: Performed By: #### 2 15344 ####[facility],[address] [place], [place] [address] Hematocrit (Bld) [Volume fraction] 43.2 % Normal 34.0 - 46.0 [facility] Comment on above: Performed By: #### 2 29662 ####[facility],[address] [place] [address] Hemoglobin (Bld) [Mass/Vol] 14.7 g/dL Normal 12.0 - 16.0 [facility] Comment on above: Performed By: #### 2 92587 ####[place] [address] Lymph # 1.03 x10EE3/UL Normal 0.80 - 2.80 [facility] Comment on above: Performed By: #### 2 86497 ####[facility],[address] [place] [address] Lymphocytes/100 WBC (Bld) 13.3 % Low 20.0 - 45.0 [facility] Comment on above: Performed By: #### 2 85750 ####[facility],[address] [place] [address] MANUAL DIFF N/A Normal [facility] Comment on above: Performed By: #### 2 82320 ####[address] [address] MCH (RBC) [Entitic mass] 30 pg Normal 27 - 33 [facility] Comment on above: Performed By: #### 2 16293 ####[facility],[address] [place] [address] MCHC 34 X10 3 Normal 32 - 36 [facility] Comment on above: Performed By: #### 2 22001 ####[facility],[address] [place] [address] MCV (RBC) [Entitic vol] 88 fL Normal 80 - 99 [facility] Comment on above: Performed By: #### 2 98875 ####[facility],[address] [place] [address] Larue # 0.09 x10EE3/UL Low 0.20 - 1.00 [facility] Comment on above: Performed By: #### 2 23038 ####[facility],[address] [place] [address] MONOS % 1.2 % Normal 0.0 - 10.0 [facility] Comment on above: Performed By: #### 2 28041 ####[facility],[address] [place] [address] Morphology Mayank (Bld) [Interp] N/A Normal [facility] Comment on above: Performed By: #### 2 95166 ####[facility],[address] [place] [address] Neut # 6.56 x10EE3/UL Normal 1.50 - 7.10 [facility] Comment on above: Performed By: #### 2 18204 ####[facility],[address] [place] [address] Neutrophils/100 WBC (Bld) 84.7 % High 46.0 - 76.0 [facility] Comment on above: Performed By: #### 2 49681 ####[facility],[address] [place] [address] PLATELET 186 x10EE3/UL Normal 150 - 450 [facility] Comment on above: Performed By: #### 2 45644 ####[facility],[address] [place] [address] Platelet mean volume (Bld) [Entitic vol] 8.4 fL Normal 6.6 - 10.5 [facility] Comment on above: Result Comment: AUTO MATED DIFFERENTIAL Performed By: #### 2 22518 ####[facility],[address] [place] [address] RBC 4.92 x 10EE6/UL Normal 4.10 - 5.30 [facility] Comment on above: Performed By: #### 2 33943 ####[facility],[address] [place] [address] 48744 WBC 7.8 x 10EE3/UL Normal 4.5 - 10.8 [facility] Comment on above: Performed By: #### 2 10673 ####[facility],[address] [place] [address] CMP with eGFRon 06-15-2024 AGE 53 years Normal [facility] Comment on above: Performed By: #### 2 13889 ####[facility],[address] [place] [address] Albumin [Mass/Vol] 3.4 g/dL Normal 3.4 - 5.0 [facility] Comment on above: Performed By: #### 2 02849 ####[facility],[address] [place] [address] Albumin/Globulin [Mass ratio] 0.9 {ratio} Normal 0.9 - 1.6 [facility] Comment on above: Performed By: #### 2 40263 ####[facility],[address] [place] [address]86 ALK PHOS 71 U/L Normal 46 - 116 [facility] Comment on above: Performed By: #### 2 32497 ####[facility],[address] [place] [address] 33018 ALT [Catalytic activity/Vol] 35 U/L Normal 16 - 63 [facility] Comment on above: Performed By: #### 2 69820 ####[facility],[address] [place] [address] Anion gap [Moles/Vol] 14 mmol/L Normal 10 - 20 [facility] Comment on above: Performed By: #### 2 35371 ####[facility],[address] [place] [address] 10397 AST [Catalytic activity/Vol] 26 U/L Normal 13 - 39 [facility] Comment on above: Performed By: #### 2 23604 ####[facility],[address] [place] [address]57 B/C RATIO 23 ratio Normal 0 - 30 [facility] Comment on above: Performed By: #### 2 53095 ####[facility],[address] [place] [address] Bilirubin [Mass/Vol] 0.4 mg/dL Normal 0.2 - 1.0 [facility] Comment on above: Performed By: #### 2 95171 ####[facility],[address] [place] [address] Calcium [Mass/Vol] 9.1 mg/dL Normal 8.5 - 10.1 [facility] Comment on above: Performed By: #### 2 80391 ####[facility],[address] [place] [address] 10976 Chloride [Moles/Vol] 105 mmol/L Normal 98 - 107 [facility] Comment on above: Performed By: #### 2 09200 ####[facility],[address] [place] [address]90[address] CMP with eGFR Normal [facility] Comment on above: Result Comment: COMP REHENSIVE METABOLIC PANEL Performed By: #### 2 24126 ####[facility],[address] [place] [address]70 CO2 [Moles/Vol] 24.6 mmol/L Normal 21.0 - 32.0 [facility] Comment on above: Performed By: #### 2 56943 ####[facility],[address] [place] [address] Creatinine [Mass/Vol] 0.77 mg/dL Normal 0.55 - 1.02 [facility] Comment on above: Performed By: #### 2 39289 ####[facility],[address] [place] [address] GFR/1.73 sq M.predicted among non-blacks MDRD (S/P/Bld) [Vol rate/Area] mL/min/{1.73_m2} Normal 60 - 999 [facility] Comment on above: Performed By: #### 2 45215 ####[facility],[address] [place] [address] Result Comment: ACCO RDING TO THE NATIONAL KIDNEY DISEASE EDUCATION PROGRAM(NKDE), A NORMAL eGFR IS A VALUE GREATER THAN OR EQUAL TO 60 ML/MIN/1.73 SQ METERS. CHRONIC KIDNEY DISEASE: <60mL/MIN/1.73 SQ METERS KIDNEY FAILURE: <15mL/MIN/1.73 SQ METERS THIS TEST SHOULD ONLY BE USED FOR PATIENTS 18 YEARS OF AGE AND OLDER. Globulin (S) [Mass/Vol] 3.7 g/dL Normal 1.5 - 3.8 [facility] Comment on above: Performed By: #### 2 64443 ####[place] [address] Glucose [Mass/Vol] 284 mg/dL High 74 - 106 [facility] Comment on above: Performed By: #### 2 18762 ####[address] [address] Potassium [Moles/Vol] 4.3 mmol/L Normal 3.5 - 5.1 [facility] Comment on above: Performed By: #### 2 10737 ####[address] [address] Protein [Mass/Vol] 7.1 g/dL Normal 6.4 - 8.2 [facility] Comment on above: Performed By: #### 2 92433 ####[address] [address] Sodium [Moles/Vol] 139 mmol/L Normal 136 - 145 [facility] Comment on above: Performed By: #### 2 31375 ####[facility],[address] [place] [address] Urea nitrogen [Mass/Vol] 18 mg/dL Normal 7 - 18 [facility] Comment on above: Performed By: #### 2 95726 ####[facility],[address] [place] [address] Emergency Department Summary on 06-15-2024 Emergency Department Summary [facility] Medical Records Department [address] [place], [place] [address] Emergency Department Summary 06/15/24 MR#: [id number] Acct: [id number] Name: JODIE CHILEL Rep #: [id number] : 1970 53 From: Senait Laurent DO [...] PE or DVT. No history of gout. [facility] Medical History History of tobacco use Encounter [...] Endocrine Endoc (more content not included)... Normal [facility] TSHon 06-15-2024 TSH Qn 0.72 m[IU]/L Normal 0.35 - 3.74 [facility] Comment on above: Performed By: #### 2 62682 #### [facility],[address] [place] [address] Venous Duplex US, Unilateral on 06-15-2024 Venous Duplex US, Unilateral [facility] [address] [place], [place] [address] Venous Duplex US, Unilateral 06/15/24 1142 MR#: [id number] Acct: [id number] Name: JODIE CHILEL Rep #: [id number] : 1970 53 From: Keagan Coles MD [...] Physician: Sophie Huitron Performed By: Lolis Adams, BRAD, RVT ??? 06/15/242226 Date Keagan Coles MD CC: Dr. Sophie Huitron MD; Dr. Senait Laurent DO Date Dictated: 06/15/24 1142 Date Transcribed: 06/15/242226 Tobacco Stemmer Machine: Signed Normal [facility] Emergency Department Summary on 05-31-2024 Emergency Department Summary [facility] Medical Records Department [address] [place] [address] Emergency Department Summary 05/31/24 MR#: [id number] Acct: [id number] Name: JODIE CHILEL Rep #: [id number] : 1970 53 From: Harvey Lucero MD [...] or pain. No numbness in her fingers. Ikluo-adek-xebmrrcg. [facility] Medical History History of tobacco use Encounter [...] way to (more content not included)... Normal [facility] Forearm 2 Viewson 05-31-2024 Forearm 2 Views [facility] Imaging Services [address], [place] [id number] Forearm 2 Views MR#: [id number] Acct: [id number] Name: JODIE CHILEL Rep #: [id number] : 1970 F 53 From: Yanci Szymanski MD PCP: Dr. Sophie Huitron MD Status: DEP ER Study: Forearm 2 Views Date of Exam: 05/31/24 Exam# [id number] Ordering Dr: Harvey Lucero MD [id number] EXAM: XR RIGHT FOREARM, 2 VIEWS CLINICAL INDICATION: blunt trauma TECHNIQUE: Frontal and lateral views of the right forearm. COMPARISON: No relevant prior studies available. FINDINGS: BONES/JOINTS: Unremarkable. No acute fracture. No dislocation. SOFT TISSUES: Mild dorsal forearm soft tissue swelling. RAD/Forearm 2 Views IMPRESSION: Mild soft tissue swelling. No fracture. Electronically Signed: Yanci Szymanski MD at 19:22 EST , CC: Dr. Harvey Lucero MD; Dr. Sophie Huitron MD Tobacco Stemmer Machine: Signed Normal [facility] 12 Lead EKGon 03-28-2024 12 Lead EKG [facility] Cardiovascular Services [address] [place] [address] 12 Lead EKG 03/28/24 0937 MR#: [id number] Acct: [id number] Name: JODIE CHILEL Rep #: [id number] : 1970 53 From: Tyrell Mo MD [...] with sinus arrhythmia Normal ECG Confirmed by CHEPE JORDAN, TYRELL ([id number]), editorial writer SERAFIN TRISTAN ([id number]) on 03/29/2024 2:13:06 PM Referred By: TB Confirmed By:TYRELL MO MD 03/29/24 1413 Date Tyrell Mo MD CC: Dr. Sophie Huitron MD; Dr. Patrick Manrique DO Signed Normal [facility] Abdomen/Pelvis W IV Cont ONL Yon 03-28-2024 Abdomen/Pelvis W IV Cont ONLY [facility] Imaging Services [address] [place] [address] Abdomen/Pelvis W IV Cont ONLY MR#: [id number] Acct: [id number] Name: JODIE CHILEL Rep #: [id number] : 1970 F 53 From: Tim shanks MD PCP: Dr. Sophie Huitron MD Status: REG ER Study: Abdomen/Pelvis W IV Cont ONLY Date of Exam: Exam# [id number] Ordering Dr: Patrick Manrique DO [id number] STUDY: CT ABDOMEN AND PELVIS WITH CONTRAST [...] Signed: Tim Limon MD at 11:09 EDT , CC: Dr. Sophie Huitron MD; Dr. Patrick Manrique, DO Tobacco Stemmer Machine: Signed Normal [facility] CBC W/Diff, Automatedon 10-1 0-4 Absolute Lymph 3.07 X10 3/uL Normal 0.83-4.51 [facility] Comment on above: Performed By: #### L 500.4050, L100.0100, L501.2450 #### [facility] [address] [place], [address] Absolute Neut 5.2 X10 3/uL Normal 2.0-7.7 [facility] Comment on above: Performed By: #### L 500.4050, L100.0100, L501.2450 #### [facility] [address] [place], [address] Basophils/100 WBC (Bld) 0.6 % Normal 0-1 [facility] Comment on above: Performed By: #### L 500.4050, L100.0100, L501.2450 #### [facility] [address] [place], [address] Eosinophils/100 WBC (Bld) 2.1 % Normal 0-5 [facility] Comment on above: Performed By: #### L 500.4050, L100.0100, L501.2450 #### [facility] [address] [place], [address] Erythrocyte distribution width (RBC) [Ratio] 13.4 % Normal 11.6-14.6 [facility] Comment on above: Performed By: #### L 500.4050, L100.0100, L501.2450 #### [facility] [address] [place], [address] Hematocrit (Bld) [Volume fraction] 47.8 % High 37-47 [facility] Comment on above: Performed By: #### L 500.4050, L100.0100, L501.2450 #### [facility] [address] [place], [address] Hemoglobin (Bld) [Mass/Vol] 15.1 g/dL High 12.0-15.0 [facility] Comment on above: Performed By: #### L 500.4050, L100.0100, L501.2450 #### [facility] [address] [place], [address] IG% 0.400 Normal 0.0-0.9 [facility] Comment on above: Result Comment: IG% - Immature Granulocytes (promyelocytes, myelocytes and metamyelocytes) > 1% indicates that a LEFT SHIFT is Present. Performed By: #### L 500.4050, L100.0100, L501.2450 #### [facility] [address] [place], [address] Lymphocytes/100 WBC (Bld) 33.8 % Normal 19-41 [facility] Comment on above: Performed By: #### L 500.4050, L100.0100, L501.2450 #### [facility] [address] [place], [address] MCH (RBC) [Entitic mass] 28.3 pg Normal 27.0-32.0 [facility] Comment on above: Performed By: #### L 500.4050, L100.0100, L501.2450 #### [facility] [address] [place], [address] MCHC (RBC) [Mass/Vol] 31.6 g/dL Low 32-36 [facility] Comment on above: Performed By: #### L 500.4050, L100.0100, L501.2450 #### [facility] [address] [place], [address] MCV (RBC) [Entitic vol] 89.7 fL Normal 81-99 [facility] Comment on above: Performed By: #### L 500.4050, L100.0100, L501.2450 #### [facility] [address] [place], [address] Monocytes/100 WBC (Bld) 5.6 % Normal 0-10 [facility] Comment on above: Performed By: #### L 500.4050, L100.0100, L501.2450 #### [facility] [address] [place], [address] Neutrophils/100 WBC (Bld) 57.5 % Normal 47-70 [facility] Comment on above: Performed By: #### L 500.4050, L100.0100, L501.2450 #### [facility] [address] [place], [address] Nucleated RBC (Bld) [#/Vol] 0 10*3/uL Normal 0-5 [facility] Comment on above: Performed By: #### L 500.4050, L100.0100, L501.2450 #### [facility] [address] [place], [address] Platelet mean volume (Bld) [Entitic vol] 10.6 fL Normal 6.2-12.0 [facility] Comment on above: Performed By: #### L 500.4050, L100.0100, L501.2450 #### [facility] [address] [place], [address] Platelets (Bld) [#/Vol] 205 10*3/uL Normal 150-450 [facility] Comment on above: Performed By: #### L 500.4050, L100.0100, L501.2450 #### [facility] [address] [place], [address] RBC (Bld) [#/Vol] 5.33 10*6/uL Normal 4.2-5.4 [facility] Comment on above: Performed By: #### L 500.4050, L100.0100, L501.2450 #### [facility] [address] [place], [address] RDW SD 44.1 fl High 35.1-43.9 [facility] Comment on above: Performed By: #### L 500.4050, L100.0100, L501.2450 #### [facility] [address] [place], [address] WBC (Bld) [#/Vol] 9.1 10*3/uL Normal 4.4-11.0 [facility] Comment on above: Performed By: #### L 500.4050, L100.0100, L501.2450 #### [facility] [address] [place], [address] Comprehensive Metabolic Prof ilon 03-28-2024 Albumin [Mass/Vol] 4.1 g/dL Normal 3.2-5.0 [facility] Comment on above: Performed By: #### L 500.4050, L100.0100, L501.2450 #### [facility] [address] [place], [address] Albumin/Globulin [Mass ratio] 0.9 {ratio} Normal 0.9-2.4 [facility] Comment on above: Performed By: #### L 500.4050, L100.0100, L501.2450 #### [facility] [address] [place], [address] ALK P 85 U/L Normal 45-117 [facility] Comment on above: Performed By: #### L 500.4050, L100.0100, L501.2450 #### [facility] [address] [place], [address] ALT [Catalytic activity/Vol] 38 U/L Normal 13-56 [facility] Comment on above: Performed By: #### L 500.4050, L100.0100, L501.2450 #### [facility] [address] [place], [address] AST [Catalytic activity/Vol] 27 U/L Normal 15-37 [facility] Comment on above: Performed By: #### L 500.4050, L100.0100, L501.2450 #### [facility] [address] [place], [address] Bilirubin [Mass/Vol] 0.40 mg/dL Normal 0.20-1.00 [facility] Comment on above: Result Comment: For patients on eltrombopag therapy, use of Dimension [place] TBIL is not recommended. Performed By: #### L 500.4050, L100.0100, L501.2450 #### [facility] [address] [place], [address] BUN/CRE 21.2 RATIO High 10-20 [facility] Comment on above: Performed By: #### L 500.4050, L100.0100, L501.2450 #### [facility] [address] [place], [address] CA,Total 9.7 mg/dL Normal 8.5-10.1 [facility] Comment on above: Performed By: #### L 500.4050, L100.0100, L501.2450 #### [facility] [address] [place], [address] Chloride [Moles/Vol] 109 mmol/L High 98-107 [facility] Comment on above: Performed By: #### L 500.4050, L100.0100, L501.2450 #### [facility] [address] [place], [address] CO2 [Moles/Vol] 26.0 mmol/L Normal 21.0-32.0 [facility] Comment on above: Performed By: #### L 500.4050, L100.0100, L501.2450 #### [facility] [address] [place], [address] Creatinine [Mass/Vol] 0.90 mg/dL Normal 0.55-1.02 [facility] Comment on above: Result Comment: The validity of the calculated GFR GFRAA in patients over 70 years has not been determined. Clinical correlation is essential. Performed By: #### L 500.4050, L100.0100, L501.2450 #### [facility] [address] [place], [address] ECRCL 74.84 ml/min Normal [facility] Comment on above: Performed By: #### L 500.4050, L100.0100, L501.2450 #### [facility] [address] [place], [address] EST GFR - AA 85 mL/min Normal >60 [facility] Comment on above: Result Comment: Afri can Brazilian GFR Calc Performed By: #### L 500.4050, L100.0100, L501.2450 #### [facility] [address] [place], [address] GAP 6 Normal 5-15 [facility] Comment on above: Performed By: #### L 500.4050, L100.0100, L501.2450 #### [facility] [address] [place], [address] GFR/1.73 sq M.predicted among non-blacks MDRD (S/P/Bld) [Vol rate/Area] 70 mL/min/{1.73_m2} Normal >60 [facility] Comment on above: Result Comment: Non- GFR Calc Performed By: #### L 500.4050, L100.0100, L501.2450 #### [facility] [address] [place], [address] Globulin (S) [Mass/Vol] 4.4 g/dL High 2.2-4.2 [facility] Comment on above: Performed By: #### L 500.4050, L100.0100, L501.2450 #### [facility] [address] [place], [address] Glucose [Mass/Vol] 163 mg/dL High 74-106 [facility] Comment on above: Result Comment: Fast ing Glucose result greater than or equal to 126 mg/dL suggests DIABETES MELLITUS per A.D.A. criteria. Performed By: #### L 500.4050, L100.0100, L501.2450 #### [facility] [address] [place], [address] Potassium [Moles/Vol] 3.9 mmol/L Normal 3.5-5.1 [facility] Comment on above: Performed By: #### L 500.4050, L100.0100, L501.2450 #### [facility] [address] [place], [address] Sodium [Moles/Vol] 141 mmol/L Normal 136-145 [facility] Comment on above: Performed By: #### L 500.4050, L100.0100, L501.2450 #### [facility] [address] [place], [address] T PROT 8.5 g/dL High 6.4-8.2 [facility] Comment on above: Performed By: #### L 500.4050, L100.0100, L501.2450 #### [facility] [address] [place], [address] Urea nitrogen [Mass/Vol] 19 mg/dL High 7-18 [facility] Comment on above: Performed By: #### L 500.4050, L100.0100, L501.2450 #### [facility] [address] [place], [address] Emergency Department Summary on 03-28-2024 Emergency Department Summary [facility] Medical Records Department [address] [place] [address] Emergency Department Summary 03/28/24 MR#: [id number] Acct: [id number] Name: JODIE CHILEL Rep #: [id number] : 1970 53 From: Patrick Manrique DO [...] had her gallbladder and her appendix removed [facility]SH [facility] Medical History History of tobacco use Encounter [...] Eyes: PER (more content not included)... Normal [facility] Lactic Acidon 03-28-2024 Lactate [Moles/Vol] 0.9 mmol/L Normal 0.4-1.9 [facility] Comment on above: Order Comment: Y Performed By: #### L 503.6005 ####[facility] [address] [place] [address] Lipaseon 03-28-2024 Lipase [Catalytic activity/Vol] 33 U/L Normal 13-75 [facility] Comment on above: Result Comment: Janeen del rio note: LIPASE revised reference range effective 22. New Lipase methodology. Expected to produce lower values than the previous assay method. NEW Reference Range: 13 - 75 U/L Performed By: #### L 500.4050, L100.0100, L501.2450 ####[facility] [address] [place] [address] Urinalysis, Completeon 03-28 EPI,SQUAMOUS 0-5 SEEN Normal 5-10 [facility] Comment on above: Order Comment: CLEAN CATCH Performed By: #### L 400.0001 #### [facility] [address] [place] [id number] BACTERIA 0 SEEN Normal None Seen [facility] Comment on above: Order Comment: CLEAN CATCH Performed By: #### L 400.0001 #### [facility] [address] [place] [id number] Mucus Ql (Urine sed) 0 SEEN Normal [facility] Comment on above: Order Comment: CLEAN CATCH Performed By: #### L 400.0001 #### [facility] [address] [place], [address] RBC 0 SEEN Normal 0-5 [facility] Comment on above: Order Comment: CLEAN CATCH Performed By: #### L 400.0001 #### [facility] [address] [place], [address] WBC 0 SEEN Normal 0-5 [facility] Comment on above: Order Comment: CLEAN CATCH Performed By: #### L 400.0001 #### [facility] [address] [place], [address] Lung Screeningon 02-27-[address] Lung Screening [facility] Services [address] [place], [place] [address] Low Dose CT Lung Screening MR#: [id number] Acct: [id number] Name: JODIE CHILEL Rep #: [id number] : 1970 F 53 From: Wayne whitley MD PCP: Dr. Sophie Huitron MD Status: [facility] Study: Low Dose CT Lung Screening Date of Exam: 02/26 Exam# [id number] Ordering Dr: Ramya Terrazas NP CHANNEL INSTALLER -C [id number] STUDY: LOW DOSE CT LUNG CANCER SCREENING [...] finding unrelated to lung cancer) Electronically Signed: Wayne Cooper MD at 13:17 EDT Reading Location ID and State: [facility] / [place] , Service support , CC: REAGAN Terrazas; Dr. Sophie Huitron MD Tobacco Stemmer Machine: Signed Normal [facility] Oncology Visit Reporton 02-17 Oncology Visit Report [facility] [address] [place] [address] OFFICE VISIT Date of Service: 02/27/24 1155 MR#: [id number] Acct: [id number] Name: JODIE CHILEL Rep #: [id number] : 1970 From: Ramya Terrazas NP CHANNEL INSTALLER IanC Age/Sex: 53/F Location[facility] Status: Signed HPI HPI Reviewed eligibility criteria: [...] aerosol inhaler (more content not included)... Normal [facility] Basophil percentageOrdered B y: Sophie Miedel on 09-22-2023 Basophil percentage < 10.0 IU/mL <15 [facility] Bilirubin [Mass/Vol] 0.40 mg/dL 0.20-1.00 [facility] Comment on above: For patients on eltr ombopag therapy, use of Dimension [place] TBIL is not recommended. Chloride [Moles/Vol] 108 mmol/L 98-107 [facility] Cholesterol [Mass/Vol] 139 mg/dL <200 [facility] Comment on above: <200 mg/dL Desirable 200-240 mg/dL Borderline >240 mg/dL High Risk Glucose [Mass/Vol] 187 mg/dL 74-106 [facility] Comment on above: Fasting Glucose resu lt greater than or equal to 126 mg/dL suggests DIABETES MELLITUS per A.D.A. criteria. Potassium [Moles/Vol] 3.9 mmol/L 3.5-5.1 [facility] Protein [Mass/Vol] 7.5 g/dL 6.4-8.2 [facility] Sodium [Moles/Vol] 141 mmol/L 136-145 [facility] Triglyceride [Mass/Vol] 181 mg/dL <199 [facility] Comment on above: The drugs N-Acetylcy steine and Metamizole may falsely depress this assay.Serum Triglycerides Reference Interval Normal <150 mg/dL Borderline high 150 - 199 mg/dL High 200 - 499 mg/dL Very High > or = 500 mg/dL Erythrocyte sedimentation ra teOrdered By: Sophie Huitron on 09-22-2023 ESR (Bld) [Velocity] 17 mm/h 0-30 [facility] - Chemistry and C hemistry - challengeOrdered By: Sophie Huitron on 09-22-2023 Albumin/Globulin [Mass ratio] 0.9 {ratio} 0.9-2.4 [facility] ALP [Catalytic activity/Vol] 81 U/L 45-117 [facility] ALT [Catalytic activity/Vol] 44 U/L 13-56 [facility] Cholesterol in HDL [Mass/Vol] 52 mg/dL >40 [facility] Comment on above: The drugs N-Acetylcy steine and Metamizole may falsely depress this assay. Reference Range HDL <40 mg/dL Low HDL Cholesterol HDL >or= 60 mg/dL High HDL Cholesterol Cholesterol in LDL [Mass/Vol] 51 mg/dL 0-130 [facility] CO2 [Moles/Vol] 28.0 mmol/L 21.0-32.0 [facility] Globulin (S) [Mass/Vol] 3.9 g/dL 2.2-4.2 [facility] Urea nitrogen/Creatinine [Mass ratio] 29.3 mg/mg 10-20 [facility] No Panel InformationOrdered By: Sophie Huitron on 09-22-2023 Anti-Nuclear Antibody Screen Negative Negative [facility] Comment on above: Performed at: [email or web address] [address] [id number] Director: Tate Nye PhD, Phone: [phone] C-Reactive Protein Extended Range < 2.90 mg/L 0.0-3.0 [facility] Comment on above: C-Reactive Protein ( CRP) provides useful information for thediagnosis, therapy and monitoring of inflammatory processesand associated diseases. For the evaluation of Relative Riskfor Cardiovascular Disease, a High Sensitivity CRP (HSCRP)should be ordered. Estimated GFR (MDRD) Amer 99 mL/min >60 [facility] Comment on above: GFR Calc Estimated GFR (MDRD) Non-Af Amer 81 mL/min >60 [facility] Comment on above: Non- GFR Calc Urine Microalbumin/Creatinin e Ratio 9.0 mg/g CRE <30 [facility] VLDL Cholesterol 36 mg/dL 5-40 [facility] Serum cyclic citrullinated p eptide IgG antibody assay (units/volume)Ordered By: Sophie Huitron on 09-22-2023 Cyclic citrullinated peptide IgG Qn 5 units 0-19 [facility] Comment on above: Negative <20 Weak po sitive 20 - 39 Moderate positive 40 - 59 Strong positive >59Performed at: [employer] [email or web address] [id number] Director: Tate Nye PhD, Phone: [phone] Serum or plasma calcium reggie urement (mass/volume)Ordered By: Sophie Huitron on 09-22-2023 Calcium [Mass/Vol] 9.5 mg/dL 8.5-10.1 [facility] Serum or plasma creatinine m easurement (mass/volume)Ordered By: Sophie Huitron on 09-22-2023 Creatinine [Mass/Vol] 0.78 mg/dL 0.55-1.02 [facility] Comment on above: The validity of the calculated GFR & GFRAA in patients over 70 years has not been determined. Clinical correlation is essential. Serum or plasma thyroid stim ulating hormone (TSH) measurement (units/volume)Ordered By: Sophie Huitron on 09-22-2023 TSH Qn 1.70 uIU/mL 0.358-3.74 [facility] Serum or plasma urea nitroge n measurement (mass/volume)Ordered By: Sophie Huitron on 09-22-2023 Urea nitrogen [Mass/Vol] 23 mg/dL 7-18 [facility] Thin prep Papanicolaou smear with manual screeningOrdered By: Sophie Huitron on 09-22-2023 Thin prep Papanicolaou smear with manual screening 3.6 g/dL 3.2-5.0 [facility] Thin prep Papanicolaou smear with manual screening 36 U/L 15-37 [facility] Thin prep Papanicolaou smear with manual screening 5 5-15 [facility] Thin prep Papanicolaou smear with manual screening 25.7 mg/L NO RANGE EST. [facility] Urine creatinine measurement (mass/volume)Ordered By: Sophie Huitron on 09-22-2023 Creatinine (U) [Mass/Vol] 286.00 mg/dL NO RANGE EST. [facility] Whole blood hemoglobin A1c/t otal hemoglobin ratio (mass fraction)Ordered By: Sophie Huitron on 09-22-2023 HbA1c (Bld) [Mass fraction] 9.5 % 3.8-5.6 [facility] Comment on above: Normal < 5.7 % Predi abetic 5.7 - 6.4 % Diabetic >or= 6.5 % Please note range changes. Absolute lymphocyte countOrd ered By: Sukumar Stanton on 08-05-2023 Lymphocytes Auto (Unsp spec) [#/Vol] 2.11 10*3/uL 0.83-4.51 [facility] Automated lymphocyte count a s percentage of total leukocytesOrdered By: Sukumar Stanton on 08-05-2023 Lymphocytes/100 WBC Auto (Unsp spec) 31.6 % 19-41 [facility] Basophil percentageOrdered B y: Sukumar Stanton on 08-05-2023 Basophils/100 WBC (Bld) 0.6 % 0-1 [facility] Bilirubin [Mass/Vol] 0.50 mg/dL 0.20-1.00 [facility] Comment on above: For patients on eltr ombopag therapy, use of Dimension [place] TBIL is not recommended. Chloride [Moles/Vol] 104 mmol/L 98-107 [facility] Eosinophils/100 WBC (Bld) 1.5 % 0-5 [facility] Glucose [Mass/Vol] 501 mg/dL 74-106 [facility] Comment on above: Critical Result(s) C alled at: 13:10:48 08/05/2023 by: Carlos Childers. Mario Hughes RN (ER). Results read back by same.Glucose result greater than or equal to 200 mg/dLsuggests DIABETES MELLITUS per A.D.A. criteria. Hemoglobin (Bld) [Mass/Vol] 14.1 g/dL 12.0-15.0 [facility] Monocytes/100 WBC (Bld) 7.6 % 0-10 [facility] Neutrophils (Bld) [#/Vol] 3.9 10*3/uL 2.0-7.7 [facility] Neutrophils/100 WBC (Bld) 58.1 % 47-70 [facility] Potassium [Moles/Vol] 3.9 mmol/L 3.5-5.1 [facility] Protein [Mass/Vol] 6.9 g/dL 6.4-8.2 [facility] Sodium [Moles/Vol] 138 mmol/L 136-145 [facility] WBC (Bld) [#/Vol] 6.7 10*3/uL 4.4-11.0 [facility] Basophil percentage 0 SEEN /hpf 0-5 [facility] Bilirubin Test strip Ql (U)O rdered By: Sukumar Stanton on 08-05-2023 Bilirubin Ql (U) Negative Negative [facility] Determination of erythrocyte mean corpuscular volume (MCV)Ordered By: Sukumar Stanton on 08-05-2023 MCV (RBC) [Entitic vol] 88.9 fL 81-99 [facility] Erythrocyte distribution wid th ratioOrdered By: Sukumar Stanton on 08-05-2023 Erythrocyte distribution width (RBC) [Ratio] 13.9 % 11.6-14.6 [facility] Erythrocyte distribution wid th standard deviationOrdered By: Sukumar Stanton on 08-05-2023 Erythrocyte distribution width (RBC) [Entitic vol] 45.2 fL 35.1-43.9 [facility] Hematocrit Auto (Bld) [Volum e fraction]Ordered By: Sukumar Stanton on 08-05-2023 Hematocrit (Bld) [Volume fraction] 43.3 % 37-47 [facility] Immature granulocytes/100 WB C Auto (Bld)Ordered By: Sukumar Stanton on 08-05-2023 Immature granulocytes/100 WBC (Bld) 0.600 % 0.0-0.9 [facility] Comment on above: IG% - Immature Granu locytes (promyelocytes, myelocytes and metamyelocytes) > 1% indicates that a LEFT SHIFT is Present. Ketones Test strip Ql (U)Ord ered By: Sukumar Stanton on 08-05-2023 Ketones Ql (U) 5 mg/dl Negative [facility] - Chemistry and C hemistry - challengeOrdered By: Sukumar Stanton on 08-05-2023 Albumin/Globulin [Mass ratio] 0.9 {ratio} 0.9-2.4 [facility] ALP [Catalytic activity/Vol] 95 U/L 45-117 [facility] ALT [Catalytic activity/Vol] 40 U/L 13-56 [facility] CO2 [Moles/Vol] 28.0 mmol/L 21.0-32.0 [facility] Globulin (S) [Mass/Vol] 3.7 g/dL 2.2-4.2 [facility] Urea nitrogen/Creatinine [Mass ratio] 10.8 mg/mg 10-20 [facility] - Hematology and Cell countsOrdered By: Sukumar Stanton on 08-05-2023 MCH (RBC) [Entitic mass] 29.0 pg 27.0-32.0 [facility] MCHC (RBC) [Mass/Vol] 32.6 g/dL 32-36 [facility] Nucleated RBC/100 WBC (Bld) [Ratio] 0 % 0-5 [facility] Platelet mean volume (Bld) [Entitic vol] 11.2 fL 6.2-12.0 [facility] Platelets (Bld) [#/Vol] 183 10*3/uL 150-450 [facility] Mucus LM Ql (Urine sed)Order ed By: Sukumar Stanton on 08-05-2023 Mucus Ql (Urine sed) 0 SEEN /hpf [facility] Nitrite Test strip Ql (U)Ord ered By: Sukumar Stanton on 08-05-2023 Nitrite Ql (U) Negative Negative [facility] No Panel InformationOrdered By: Sukumar Stanton on 08-05-2023 Estimated Creatinine Clearance Calc 74.03 ml/min [facility] Estimated GFR (MDRD) Amer 82 mL/min >60 [facility] Comment on above: GFR Calc Estimated GFR (MDRD) Non-Af Amer 68 mL/min >60 [facility] Comment on above: Non- GFR Calc Troponin I High Sensitivity 7 pg/mL 3.0-54.0 [facility] Comment on above: Please Note: [place] t Units and Gender Specific Reference Ranges. For more information see Policy Stat Procedure [place] High Sensitivity Troponin (TNIH) and attachments. Urine RBC 0 SEEN /hpf 0-5 [facility] Protein Test strip Ql (U)Ord ered By: Sukumar Stanton on 08-05-2023 Protein Ql (U) 15 mg/dl Negative [facility] RBC Auto (Bld) [#/Vol]Ordere d By: Sukumar Stanton on 08-05-2023 RBC (Bld) [#/Vol] 4.87 10*6/uL 4.2-5.4 [facility] Serum or plasma acetone reggie urement (mass/volume)Ordered By: Sukumar Stanton on 08-05-2023 Acetone [Mass/Vol] Negative NEG [facility] Serum or plasma calcium reggie urement (mass/volume)Ordered By: Sukumar Stanton on 08-05-2023 Calcium [Mass/Vol] 8.6 mg/dL 8.5-10.1 [facility] Serum or plasma creatinine m easurement (mass/volume)Ordered By: Sukumar Stanton on 08-05-2023 Creatinine [Mass/Vol] 0.92 mg/dL 0.55-1.02 [facility] Comment on above: The validity of the calculated GFR & GFRAA in patients over 70 years has not been determined. Clinical correlation is essential. Serum or plasma urea nitroge n measurement (mass/volume)Ordered By: Sukumar Stanton on 08-05-2023 Urea nitrogen [Mass/Vol] 10 mg/dL 7-18 [facility] Squamous epithelial cells de tection in urine sediment by light microscopyOrdered By: Sukumar Stanton on 08-05-2023 Epithelial cells.squamous LM Ql (Urine sed) 0 SEEN /hpf 5-10 [facility] Thin prep Papanicolaou smear with manual screeningOrdered By: Sukumar Stanton on 08-05-2023 Thin prep Papanicolaou smear with manual screening 3.2 g/dL 3.2-5.0 [facility] Thin prep Papanicolaou smear with manual screening 35 U/L 15-37 [facility] Thin prep Papanicolaou smear with manual screening 6 5-15 [facility] Thin prep Papanicolaou smear with manual screening 498 mg/dL 74-106 [facility] Comment on above: Dr Mali DOMINGO OF PATIENT CARE PER NURSING PROTOCOL Urine blood detectionOrdered By: Sukumar Stanton on 08-05-2023 RBC Ql (U) Negative Negative [facility] Urine clarityOrdered By: Bob Stanton on 08-05-2023 Clarity (U) Clear Clear [facility] Urine color determinationOrd ered By: Sukumar Stanton on 08-05-2023 Color (U) Yellow Yellow [facility] Urine glucose detectionOrder ed By: Sukumar Stanton on 08-05-2023 Glucose Ql (U) 1000 mg/dl Normal [facility] Urine leukocyte esterase det ection by dipstickOrdered By: Sukumar Stanton on 08-05-2023 Leukocyte esterase Test strip Ql (U) Negative Negative [facility] Urine pHOrdered By: Sukumar rivera on 08-05-2023 pH (U) 6.0 [pH] 5.0 - 8.0 [facility] Urine sediment bacteria coun t by microscopy (number/high power field)Ordered By: Sukumar Stanton on 08-05-2023 Bacteria LM.HPF (Urine sed) [#/Area] 0 /[HPF] None Seen [facility] Urine specific gravity measu rementOrdered By: Sukumar Stanton on 08-05-2023 Specific gravity (U) [Rel density] 1.015 1.002-1.030 [facility] Urine urobilinogen measureme ntOrdered By: Sukumar Stanton on 08-05-2023 Urobilinogen Ql (U) Normal mg/dl Normal [facility] MR Brain WO and W contrast I Von 07-31-2023 [facility] XR CHEST 2V FRONTAL/LATon [facility] XR Chest PA and Lateralon IMPRESSION: Stable chest. No acute cardiopulmonary process. Tobacco Stemmer Machine: KATERYNA Transcribe Date/Time: Oct 01 2021 1:23P [...] IMPRESSION: Stable chest. No acute cardiopulmonary process. Tobacco Stemmer Machine: PSCB Transcribe Date/Time: Oct 01 2021 1:23P Dictated by : LEXY DESAI MD This examination was interpreted and the report reviewed and electronically signed by: LEXY DESAI MD on Oct 01 2021 1:28PM EST [facility] Radiology Study observation (narrative) [facility] XR Chest PA and LateralOrder ed By: [facility]cf Provider on 10-01-2021 [facility] Absolute lymphocyte counton 08-31-2021 Lymphocytes Auto (Unsp spec) [#/Vol] 3.56 10*3/uL 0.83-4.51 [facility] Work Phone: Basophil percentageon 2021 Basophil percentage 0 SEEN /hpf 0-5 [facility] Work Phone: Basophils/100 WBC (Bld) 0.5 % 0-1 [facility] Work Phone: Chloride [Moles/Vol] 105 mmol/L 98-107 [facility] Work Phone: Eosinophils/100 WBC (Bld) 1.5 % 0-5 [facility] Work Phone: Glucose [Mass/Vol] 341 mg/dL 74-106 [facility] Work Phone: Comment on above: Glucose result great er than or equal to 200 mg/dLsuggests DIABETES MELLITUS per A.D.A. criteria. Neutrophils (Bld) [#/Vol] 5.2 10*3/uL 2.0-7.7 [facility] Work Phone: Neutrophils/100 WBC (Bld) 53.5 % 47-70 [facility] Work Phone: Potassium [Moles/Vol] 4.0 mmol/L 3.5-5.1 [facility] Work Phone: Sodium [Moles/Vol] 139 mmol/L 136-145 [facility] Work Phone: WBC (Bld) [#/Vol] 9.7 10*3/uL 4.4-11.0 [facility] Work Phone: Bilirubin Test strip Ql (U)o n 08-31-2021 Bilirubin Ql (U) Negative Negative [facility] Work Phone: Blood erythrocytes count (nu mber/volume)on 08-31-2021 RBC (Bld) [#/Vol] 4.96 10*6/uL 4.2-5.4 [facility] Work Phone: Blood hemoglobin measurement (mass/volume)on 08-31-2021 Hemoglobin (Bld) [Mass/Vol] 14.8 g/dL 12.0-15.0 [facility] Work Phone: Blood lymphocytes/100 leukoc yteson 08-31-2021 Lymphocytes/100 WBC (Bld) 36.7 % 19-41 [facility] Work Phone: Blood monocytes/100 leukocyt eson 08-31-2021 Monocytes/100 WBC (Bld) 7.3 % 0-10 [facility] Work Phone: Blood platelet mean volumeon 08-31-2021 Platelet mean volume (Bld) [Entitic vol] 10.0 fL 6.2-12.0 [facility] Work Phone: Determination of erythrocyte mean corpuscular volume (MCV)on 08-31-2021 MCV (RBC) [Entitic vol] 87.5 fL 81-99 [facility] Work Phone: Glucose Glucometer (BldC) [M ass/Vol]on 08-31-2021 Glucose [Mass/Vol] 293 mg/dL 74-106 [facility] Work Phone: Comment on above: MANAGEMENT OF PATIEN T CARE PER NURSING PROTOCOL Hematocrit Auto (Bld) [Volum e fraction]on 08-31-2021 Hematocrit (Bld) [Volume fraction] 43.4 % 37-47 [facility] Work Phone: Ketones Test strip Ql (U)on 08-31-2021 Ketones Ql (U) Negative Negative [facility] Work Phone: Laboratory - Chemistry and C hemistry - challengeon 08-31-2021 CO2 [Moles/Vol] 28.0 mmol/L 21.0-32.0 [facility] Work Phone: Urea nitrogen/Creatinine [Mass ratio] 13.4 mg/mg 10-20 [facility] Work Phone: Laboratory - Hematology and Cell countson 08-31-2021 Erythrocyte distribution width (RBC) [Entitic vol] 42.6 fL 35.1-43.9 [facility] Work Phone: Erythrocyte distribution width (RBC) [Ratio] 13.2 % 11.6-14.6 [facility] Work Phone: Immature granulocytes/100 WBC (Bld) 0.500 % 0.0-0.9 [facility] Work Phone: Comment on above: IG% - Immature Granu locytes (promyelocytes, myelocytes and metamyelocytes) > 1% indicates that a LEFT SHIFT is Present. MCH (RBC) [Entitic mass] 29.8 pg 27.0-32.0 [facility] Work Phone: Nucleated RBC/100 WBC (Bld) [Ratio] 0 % 0-5 [facility] Work Phone: MCHC Auto (RBC) [Mass/Vol]on 08-31-2021 MCHC (RBC) [Mass/Vol] 34.1 g/dL 32-36 [facility] Work Phone: Mucus LM Ql (Urine sed)on Mucus Ql (Urine sed) 0 SEEN /hpf [facility] Work Phone: Nitrite Test strip Ql (U)on 08-31-2021 Nitrite Ql (U) Negative Negative [facility] Work Phone: No Panel Informationon 08-31 Estimated Creatinine Clearance Calc 58.30 ml/min [facility] Work Phone: Estimated GFR (MDRD) Amer 95 mL/min >60 [facility] Work Phone: Comment on above: GFR Calc Estimated GFR (MDRD) Non-Af Amer 78 mL/min >60 [facility] Work Phone: Comment on above: Non- GFR Calc Platelets bldon 08-31-2021 Platelets (Bld) [#/Vol] 193 10*3/uL 150-450 [facility] Work Phone: Protein Test strip Ql (U)on 08-31-2021 Protein Ql (U) Negative Negative [facility] Work Phone: Serum or plasma calcium reggie urement (mass/volume)on 08-31-2021 Calcium [Mass/Vol] 9.1 mg/dL 8.5-10.1 [facility] Work Phone: Serum or plasma creatinine m easurement (mass/volume)on 08-31-2021 Creatinine [Mass/Vol] 0.82 mg/dL 0.55-1.02 [facility] Work Phone: Comment on above: The validity of the calculated GFR & GFRAA in patients over 70 years has not been determined. Clinical correlation is essential. Serum or plasma urea nitroge n measurement (mass/volume)on 08-31-2021 Urea nitrogen [Mass/Vol] 11 mg/dL 7-18 [facility] Work Phone: Squamous epithelial cells de tection in urine sediment by light microscopyon 08-31-2021 Epithelial cells.squamous LM Ql (Urine sed) 0 SEEN /hpf 5-10 [facility] Work Phone: Thin prep Papanicolaou smear with manual screeningon 08-31-2021 Thin prep Papanicolaou smear with manual screening 6 -15 [facility] Work Phone: Urine blood detectionon 08-17 RBC Ql (U) Negative Negative [facility] Work Phone: RBC Ql (U) 0 SEEN /hpf 0-5 [facility] Work Phone: Urine clarityon 08-31-2021 Clarity (U) Clear Clear [facility] Work Phone: Urine color determinationon 08-31-2021 Color (U) Yellow Yellow [facility] Work Phone: Urine glucose detectionon Glucose Ql (U) 1000 mg/dl Normal [facility] Work Phone: Urine leukocyte esterase det ection by dipstickon 08-31-2021 Leukocyte esterase Test strip Ql (U) Negative Negative [facility] Work Phone: Urine pHon 08-31-2021 pH (U) 7.0 [pH] 5.0 - 8.0 [facility] Work Phone: Urine sediment bacteria coun t by microscopy (number/high power field)on 08-31-2021 Bacteria LM.HPF (Urine sed) [#/Area] 0 /[HPF] None Seen [facility] Work Phone: Urine specific gravity measu rementon 08-31-2021 Specific gravity (U) [Rel density] 1.010 1.002-1.030 [facility] Work Phone: Urobilinogen Auto test strip Ql (U)on 08-31-2021 Urobilinogen Ql (U) Normal mg/dl Normal [facility] Work Phone: CNOVSPon 03-23-2021 CNOVSP Visit (SP) Office ([place]) -- JOSE CHILELRose Taveras ([id number]) 1970 F Date Time Provider Department 03/23/21 [...] the patient have a history of Guillain ?[place] Syndrome (a severe paralytic illness): No ? [...] provided: Yes ? See Immunization Form in [facility] for details of immunizations administered today. If patient reports dizziness, vision changes or ringing in the ears post vaccination ? please have patient sit or lie down for 15 minutes. Patient tolerated the vaccine well. SHABNAM Rodriguez MD 04/14/2021 8:58 AM Signed Gynecologic Oncology [facility] Follow up visit Date of service: [...] Diabetes mellitus type II - Diabetic neuropathy ([facility]) 12/11/2017 feet only - Endometrial cancer ([facility]) - Fibromyalgia - Hypothyroidism - Insomnia, unspecified - Lazy eye since - Menopause - Morbid obesity with BMI of 45.0-49.9, adult ([facility]) 03/29/2017 - Schizoaffective disorder, bipolar type ([facility]) 04/14/2015 states no longer - Sleep apnea CPAP occasional usage - Tobacco use disorder 01/21/2021 PAST SURGICAL HISTORY Procedure Laterality Date - BACK SURGERY HX 02/03/2019 bilateral laminotomies, decompression L5 and S1 nerve roots, removal of epidural lipomatosis - D+C 01/28/2021 Adenocarcioma FIGO 1, [facility]. Dr. Phan - LAP SURG APPENDECTOMY 2005 - LAPAROSCOPIC CHOLEYCYSTECTOMY 08/11/2008 - PAST SURGICAL HISTORY OF 1997 right forearm, brown recluse - PAST SURGICAL HISTORY OF 10/28/2020 i had my nerves burnt in my back injections didn't work - H W/T/O 250 G OR LESS 03/08/2021 FAMILY [...] needed fo (more content not included)... Normal [facility] CNPNon 03-15-2021 [place] Telephone ([place]) -- JODIE CHILEL ([id number]) 1970 F Date Time Provider Department 03/15/21 RADHA DUGAN During your visit today, we recorded the following information about you: Radha Dugan APRN.CNP 03/15/2021 1:42 PM Signed Jodie reports 6 out of 10 postoperative pain. Reports pain is worse with bowel movements. Jodie states she is taking 3 jrnd-qhg-ocpeqep stool softeners a day. Reports small bowel movement yesterday. She is taking Tylenol 1 day and ibuprofen the next day. Advised to take Tylenol and ibuprofen scheduled. Will have Jodie add MiraLAX 1-2 times daily as well. Advised her to call the office if symptoms do not improve. Radha Dugan APRN.CNP Allergies As of Date: 03/15/2021 Noted Allergy [...] Encounter Status:Closed by RADHA DUGAN on 03/15/21 [facility] Huan 03-12-2021 CNPN Telephone ([place]) -- JODIE CHILEL ([id number]) 1970 F Date Time Provider Department 03/12/21 RADHA DUGAN During your visit today, we recorded the following information about you: Radha Dugan APRN.OYSTER GRADER 03/12/2021 11:14 AM Signed Recovery is going well. No concerns. Was seen in ED yesterday for concern of glue falling off. No concerns today. Radha Dugan APRN.CNP Allergies As of Date: 03/12/2021 Noted Allergy [...] needles, DISPOSABLE, (PEN NEEDLE) 31 gauge x /16 USE ONE NEEDLE DAILY FOR DOSE OF [...] neuropathy, without long-term current use of insulin ([facility]) - flash glucose scanning reader (FREESTYLE JALIL [...] Encounter Status:Closed by RADHA DUGAN on 03/12/21 [facility] OPERATIVE NOon 03-11-2021 OPERATIVE NO HNO ID: [id number] Author: Hemant Sosa MD Service: Gynecology Oncology Author Type: Physician Type: Operative Report Filed: 03/16/2021 4:51 PM Note Text: [facility] - Operative Report JODIE CHILEL : 1970 AGE: 50. SEX: F PATIENT TYPE: A HOSP SVC: GYNE LOCATION: [facility] [place] ATTENDING PHYSICIAN: HEMANT SOSA CSN NUMBER: [id number] DATE OF SURGERY/PROCEDURE: 03/08/2021 INCISION/PROCEDURE START TIME: 1642. INCISION CLOSE/PROCEDURE END TIME: 1939. PREOPERATIVE DIAGNOSIS: Endometrial cancer. POSTOPERATIVE DIAGNOSIS: Endometrial cancer plus intraabdominal adhesions. SURGEON: Hemant Sosa M.D. STACK YIELD ENGINEER: 1. Dr. Ulysses Rahman. 2. 2nd zoning assistant, Dr. Lillie Hunt. SURGERY/PROCEDURE: 1. Laparoscopic [...] was closed (more content not included)... Normal [facility] ANES POSTPROC EVALon 021 ANES POSTPROC EVAL HNO ID: [id number] Author: Gurinder Escalante DO Service: Anesthesiology Author Type: Physician Type: Anesthesia Postprocedure Evaluation Filed: 03/09/2021 12:20 PM Note Text: POST ANESTHESIA EVALUATION NOTE : 1970 Procedure Summary Date: 03/08/21 Room / Location: [place] OR [address] [place] [address] OR Anesthesia Start: 1608 Anesthesia Stop: 2008 [...] vitals Vitals Value Taken Time BP 124/84 03/08/210 Temp 36.5 ?C (97.7 ?F) 03/08/212114 HR SpO2 111 03/08/218 Resp 19 03/08/212137 SpO2 98 % 03/08/212137 [...] March 09, 2021 TIME: 12:20 PM CSN: [id number] Normal [facility] Basic metabolic 2000 panelon 03-09-2021 Anion gap [Moles/Vol] 10 mmol/L Normal 9-18 [facility] Comment on above: Order Comment: Speci men Type: BLOOD SPECIMEN Performed By: #### 2 4321-2 #### [facility] CLIA [id number] [address] [place] [address] [place] Calcium [Mass/Vol] 8.2 mg/dL Low 8.5-10.2 [facility] Comment on above: Order Comment: Speci men Type: BLOOD SPECIMEN Performed By: #### 2 4321-2 #### [facility] CLIA [id number] [address] [place] [address] [place] Chloride [Moles/Vol] 105 mmol/L Normal 97-105 [facility] Comment on above: Order Comment: Speci men Type: BLOOD SPECIMEN Performed By: #### 2 4321-2 #### [facility] CLIA [id number] [address] [place] [address] [place] CO2 [Moles/Vol] 27 mmol/L Normal 22-30 [facility] Comment on above: Order Comment: Speci men Type: BLOOD SPECIMEN Performed By: #### 2 4321-2 #### [facility] CLIA [id number] [address] [place] Creatinine [Mass/Vol] 0.54 mg/dL Low 0.58-0.96 [facility] Comment on above: Order Comment: Speci men Type: BLOOD SPECIMEN Performed By: #### 2 4321-2 #### [facility] CLIA [id number] [address] [place] GFR/1.73 sq M.predicted MDRD (S/P/Bld) [Vol rate/Area] mL/min/{1.73_m2} Normal [facility] Comment on above: Order Comment: Speci men [...] GFR. Performed By: #### 2 4321-2 #### [facility] CLIA [id number] [address] [place] Glucose [Mass/Vol] 221 mg/dL High 74-99 [facility] Comment on above: Order Comment: [facility] Type: BLOOD SPECIMEN Result Comment: The [place] Diabetes Association (ADA) provides guidance for cutoff [...] Standards of Medical Care in Diabetes 2016, [place] Diabetes Association. Diabetes Care. 2016.39(Suppl 1). Performed By: #### 2 4321-2 #### [facility] CLIA [id number] [address] Potassium [Moles/Vol] 3.8 mmol/L Normal 3.7-5.1 [facility] Comment on above: Order Comment: Speci men Type: BLOOD SPECIMEN Performed By: #### 2 4321-2 #### [facility] CLIA [id number] [address] Sodium [Moles/Vol] 142 mmol/L Normal 136-144 [facility] Comment on above: Order Comment: Speci men Type: BLOOD SPECIMEN Performed By: #### 2 4321-2 #### [facility] CLIA [id number] [address] Urea nitrogen [Mass/Vol] 8 mg/dL Normal 7-21 [facility] Comment on above: Order Comment: Speci men Type: BLOOD SPECIMEN Performed By: #### 2 4321-2 #### [facility] CLIA [id number] [address] CASE MGT INIT PAULINAESon 2020 CASE MGT INIT ASSANGELLA HNO ID: [id number] Author: Alecia Freitas RN Service: ? Author Type: Registered Nurse Type: Care Mgt Initial Assessment Filed: 03/09/2021 10:36 AM Note Text: CARE MANAGEMENT: ASSESSMENT AND DISCHARGE PLAN SERVICE DATE: March 09, 2021 SERVICE TIME: 10:34 AM PRIMARY CARE PHYSICIAN: Dino Evans MD ADMISSION STATUS: Extended Recovery Needs Prior to Discharge: Pharmacy Bedside Delivery MEDICAL: [facility] MEDICARE Patient/Braze Operator Stated Goals: To return home to life as it was;To have reduction in pain Health Insurance: [facility];Medicare;Medica id Health Issues Impacting Discharge Plan: Newly [...] None Has the Patient Been in a Usp Facility in the Past 30 days?: No [...] Completely I feel financially burdened by my eez-fh-sdnjge expenses for my prescription medication:: 0 - [...] Anxiety, Depression, Bipolar FREEDOM OF CHOICE EXPLAINED: [place] of Choice Given: No Reason Not Given: No placements necessary POTENTIAL TRANSITION PLANS Home Chart reviewed and met with patient. She is from home, lives alone. 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 DC plan is home, patient would like medications filled at OP pharmacy prior to DC. No DC needs identified. Patient states she will have ride home at discharge. SIGNATURE: Alecia Freitas RN PATIENT NAME: Jodie Chilel DATE: March 09, 2021 TIME: 10:34 AM PAGER/CONTACT #: [phone] Normal [facility] CBC panel Auto (Bld)on 03-09 Erythrocyte distribution width (RBC) [Ratio] 13.1 % Normal 11.5-15.0 [facility] Comment on above: Order Comment: Speci men Type: BLOOD SPECIMEN Performed By: #### 5 8410-2 ####[facility] [id number] [address] Hematocrit (Bld) [Volume fraction] 41.0 % Normal 36.0-46.0 [facility] Comment on above: Order Comment: Speci men Type: BLOOD SPECIMEN Performed By: #### 5 8410-2 ####[facility] [id number] [address] OF [facility] Hemoglobin (Bld) [Mass/Vol] 13.4 g/dL Normal 11.5-15.5 [facility] Comment on above: Order Comment: Speci men Type: BLOOD SPECIMEN Performed By: #### 5 8410-2 ####[facility] [id number] [address] MCH (RBC) [Entitic mass] 29.6 pg Normal 26.0-34.0 [facility] Comment on above: Order Comment: Speci men Type: BLOOD SPECIMEN Performed By: #### 5 8410-2 ####[facility] [id number] [address] STATES OF [facility] MCHC (RBC) [Mass/Vol] 32.7 g/dL Normal 30.5-36.0 [facility] Comment on above: Order Comment: Speci men Type: BLOOD SPECIMEN Performed By: #### 5 8410-2 ####[facility] [id number] [address] MCV (RBC) [Entitic vol] 90.5 fL Normal 80.0-100.0 [facility] Comment on above: Order Comment: Speci men Type: BLOOD SPECIMEN Performed By: #### 5 8410-2 ####[facility] [id number] [address] Nucleated RBC (Bld) [#/Vol] 10*3/uL Normal <0.01 [facility] Comment on above: Order Comment: Speci men Type: BLOOD SPECIMEN Performed By: #### 5 8410-2 ####[facility] [id number] [address] Platelet mean volume (Bld) [Entitic vol] 10.2 fL Normal 9.0-12.7 [facility] Comment on above: Order Comment: Speci men Type: BLOOD SPECIMEN Performed By: #### 5 8410-2 ####[facility] [id number] [address] Platelets (Bld) [#/Vol] 171 10*3/uL Normal 150-400 [facility] Comment on above: Order Comment: Speci men Type: BLOOD SPECIMEN Performed By: #### 5 8410-2 ####[facility] [id number] [address] RBC (Bld) [#/Vol] 4.53 10*6/uL Normal 3.90-5.20 [facility] Comment on above: Order Comment: Speci men Type: BLOOD SPECIMEN Performed By: #### 5 8410-2 ####[facility] [id number] [address] WBC (Bld) [#/Vol] 10.79 10*3/uL Normal 3.70-11.00 [facility] Comment on above: Order Comment: Speci men Type: BLOOD SPECIMEN Performed By: #### 5 8410-2 ####[facility] [id number] [address] OF [facility] CNDSon 03-09-2021 [facility] HNO ID: [id number] Author: Lillie Hunt DO Service: Gynecology Author [...] neuropathy, without long-term current use of insulin ([facility]) Qty: 1 Each Refills: 0 Associated Diagnoses:Controlled type 2 diabetes mellitus with diabetic neuropathy, without long-term current use of insulin ([facility]) flash glucose scanning reader 1 Device 1 [...] SIGNATURE: Lillie Hunt DO PATIENT NAME: Jodie Cihlel DATE: March 09, 2021 TIME: 11:45 AM PAGER: [phone] [facility] NUTRITIONon 03-09-2021 NUTRITION HNO ID: [id number] Author: Dar Noriega RD Service: Nutrition Therapy [...] As evidenced by: Procedure/surgery Estimated kilocalorie needs: 0637-3150 Calorie Calculation Method: 30-35 kcals/kg Estimated protein [...] March 09, 2021 TIME: 3:24 PM PAGER: [phone] [facility] ANES PRE-OPon 03-08-2021 ANES PRE-OP HNO ID: [id number] Author: Gurinder Escalante DO Service: Anesthesiology Author [...] Morbid obesity with BMI of 45.0-49.9, adult (HCC) I - PHYSICAL EVALUATION AIRWAY Patient intubated: [...] Pes planu (more content not included)... Normal [facility] BRIEF OP NOTon 03-08-2021 BRIEF OP NOT HNO ID: [id number] Author: Refugio Rahman DO Service: Gynecology Oncology Author Type: Resident Type: Brief Op Note Filed: 03/08/2021 7:52 PM Note Text: BRIEF OPERATIVE / PROCEDURE NOTE LOG ID: [id number] SURGERY/PROCEDURE DATE: 03/08/2021 INCISION/PROCEDURE START TIME: 4:43 PM INCISION CLOSE/PROCEDURE END TIME: 7:50 PM SURGEON(S)/PROCEDURALIST(S ) AND STACK YIELD ENGINEER(S): Surgeon(s) and Role: * Hemant Sosa MD [...] DATE: March 08, 2021 TIME: 7:49 PM [facility] SURGICAL PATHOLOGYon 021 CASE REPORT [facility] Comment on above: Order Comment: Speci men Type: TISSUE SPECIMEN Result Comment: Surg ical Pathology Report Case: [id number] Authorizing Provider: Hemant Sosa MD Collected: 03/08/2021 06:31 PM Ordering Location: [place] [facility] Received: 03/09/2021 02:45 AM Pathologist: Anant Nash MD Specimen: UTERUS, CERVIX, BILATERAL FALLOPIAN TUBES AND BILATERAL OVARIES Performed By: #### S #### 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 Dr. Olimpia Ashton has reviewed this case and agrees with the above diagnosis. Performed By: #### S #### [facility] CLIA [id number] [address] [place] [address] FINAL DIAGNOSIS [facility] Comment on above: Order Comment: Speci [...] fallopian tubes. Performed By: #### S #### [facility] CLIA [id number] [address] FINAL PERFORMING LAB Normal [facility] Comment on above: Order Comment: Speci men Type: TISSUE SPECIMEN Result Comment: Diag nostic interpretation performed at [facility], [address] [place] [address] CLIA# [id number] Back Facer: Dilip Gonzalez M.D. Performed By: #### S #### [facility] CLIA [id number] [address] GROSS DESCRIPTION Normal [facility] Comment on above: Order Comment: Speci men [...] 1 cm smooth lined, clear fluid-filled cyst. Braze Operator sections are submitted as follows: FSA 1-lesion [...] demonstrating cystic structure. Gross examination performed at [facility], [address] [place] [address] OLS March 09, 2021 9:14 AM Performed By: #### S #### [facility] CLIA [id number] [address] [place] [address] [place] INTRAOPERATIVE DIAGNOSIS Normal [facility] Comment on above: Order Comment: Speci men Type: TISSUE SPECIMEN Result Comment: A. U TERUS, CERVIX, BILATERAL FALLOPIAN TUBES AND BILATERAL OVARIES. FSA1??? Endometrial lesion, full-thickness: consistent with endometrial carcinoma; depth of invasion no worse than 2 mm on exam section. Defer to permanents for further assessment. (AC) Performed By: #### S #### [facility] CLIA [id number] [address] SYNOPTIC REPORT Normal [facility] Comment on above: Order Comment: Speci men [...] neoplasia (EIN) Performed By: #### S #### [facility] CLIA [id number] [address] [place] HISTORY PHYSICALon HISTORY PHYSICAL HNO ID: [id number] Author: Lora Jimenez APRN.OYSTER GRADER Service: ? Author Type: Nurse Practitioner Type: [...] requiring medication, no history of angina, CHF, ID, cardiac surgery or stents. Denies rest pain, [...] Diabetes mellitus type II - Diabetic neuropathy ([facility]) 12/11/2017 feet only - Endometrial cancer ([facility]) - Fibromyalgia - Hypothyroidism - Insomnia, unspecified - Lazy eye since - Menopause - Morbid obesity with BMI of 45.0-49.9, adult ([facility]) 03/29/2017 - Schizoaffective disorder, bipolar type ([facility]) 04/14/2015 states no longer - Sleep apnea CPAP occasional usage - Tobacco use disorder 01/21/2021 PAST SURGICAL HISTORY Procedure Laterality Date - BACK SURGERY HX 02/03/2019 bilateral laminotomies, decompression L5 and S1 nerve roots, removal of epidural lipomatosis - D+C 01/28/2021 Adenocarcioma FIGO 1, [facility]. Dr. Phan - LAP SURG APPENDECTOMY [...] Day Sm (more content not included)... Normal [facility] NURSING PROGon 03-04-2021 NURSING PROG HNO ID: [id number] Author: Iona Tracey RN Service: Nursing Author Type: Registered Nurse Type: Nursing Progress Note Filed: 03/04/2021 12:13 PM Note Text: Pt did not know that she had PST appointment for tomorrow and she is not able to come for appointment. Instructed patient to call Dr Sosa's office. Patient verbalized understanding. Normal [facility] CNPNon 02-23-2021 [place] Telephone ([place]) -- CHILELJODIE PALACIO ([id number]) 1970 F Date Time Provider Department 02/23/21 [...] advise. Thank you! NKDA. Preferred pharmacy is [facility] in [place], [place]. GERALDINE Rich APRN.CNP 02/23/2021 2:08 PM [...] mouth once daily. - flash glucose sensor ([employer] Technology[employer] JALIL 14 DAY SENSOR) kit Apply one [...] neuropathy, without long-term current use of insulin ([facility]) - flash glucose scanning reader ([employer] JALIL 14 DAY READER) misc 1 Device [...] Status:Closed by RADHA DUGAN on 02/23/21 Normal [facility] Basic metabolic 2000 panelon 02-16-2021 Anion gap [Moles/Vol] 14 mmol/L Normal 9-18 [facility] Comment on above: Order Comment: Speci men Type: BLOOD SPECIMEN Performed By: #### 2 4321-2 #### [facility] CLIA [id number] [address] Calcium [Mass/Vol] 9.0 mg/dL Normal 8.5-10.2 [facility] Comment on above: Order Comment: Speci men Type: BLOOD SPECIMEN Performed By: #### 2 4321-2 #### [facility] CLIA [id number] [address] Chloride [Moles/Vol] 101 mmol/L Normal 97-105 [facility] Comment on above: Order Comment: Speci men Type: BLOOD SPECIMEN Performed By: #### 2 4321-2 #### [facility] CLIA [id number] [address] CO2 [Moles/Vol] 23 mmol/L Normal 22-30 [facility] Comment on above: Order Comment: Speci men Type: BLOOD SPECIMEN Performed By: #### 2 4321-2 #### [facility] CLIA [id number] [address] Creatinine [Mass/Vol] 0.57 mg/dL Low 0.58-0.96 [facility] Comment on above: Order Comment: Speci men Type: BLOOD SPECIMEN Performed By: #### 2 4321-2 #### [facility] CLIA [id number] [address] GFR/1.73 sq M.predicted MDRD (S/P/Bld) [Vol rate/Area] mL/min/{1.73_m2} Normal [facility] Comment on above: Order Comment: Speci men [...] GFR. Performed By: #### 2 4321-2 #### [facility] CLIA [id number] 1 [place] [address] [place] Glucose [Mass/Vol] 134 mg/dL High 74-99 [facility] Comment on above: Order Comment: Speci men Type: BLOOD SPECIMEN Result Comment: The [place] Diabetes Association (ADA) provides guidance for cutoff [...] Standards of Medical Care in Diabetes 2016, [place] Diabetes Association. Diabetes Care. 2016.39(Suppl 1). Performed By: #### 2 4321-2 #### [facility] CLIA [id number] 1 [place] [address] [place] Potassium [Moles/Vol] 4.2 mmol/L Normal 3.7-5.1 [facility] Comment on above: Order Comment: Speci men Type: BLOOD SPECIMEN Performed By: #### 2 4321-2 #### [facility] CLIA [id number] [address] [place] Sodium [Moles/Vol] 138 mmol/L Normal 136-144 [facility] Comment on above: Order Comment: Speci men Type: BLOOD SPECIMEN Performed By: #### 2 4321-2 #### [facility] CLIA [id number] [address] [place] Urea nitrogen [Mass/Vol] 12 mg/dL Normal 7-21 [facility] Comment on above: Order Comment: Speci men Type: BLOOD SPECIMEN Performed By: #### 2 4321-2 #### [facility] CLIA [id number] [address] CA 125 BLDon 02-16-2021 Cancer Ag 125 IA Qn 5 U/mL Normal 0-30 [facility] Comment on above: Order Comment: Speci men Type: BLOOD SPECIMEN Result Comment: CA 1 25 test methodology used is the Electrochemiluminescence Immunoassay by [employer]. The reference interval is based on the 95th percentile of 240 apparently healthy premenopausal and postmenopausal women. At a cutoff value of 65 U/mL, the test sensitivity to distinguish ovarian carcinoma (FIGO stage I to IV) versus benign gynecological disease is 79%, with a specificity of 82%. Reference: Cancer Antigen 125 (CA 125 II) [package insert V 1.0 [employer]]. [employer], [place], [place] (March 2015) Performed By: #### C A125 #### [facility] CLIA [id number] [address] CBC panel Auto (Bld)on 02-16 Erythrocyte distribution width (RBC) [Ratio] 13.4 % Normal 11.5-15.0 [facility] Comment on above: Order Comment: Speci men Type: BLOOD SPECIMEN Performed By: #### 5 8410-2 #### [facility] CLIA [id number] [address] Hematocrit (Bld) [Volume fraction] 48.2 % High 36.0-46.0 [facility] Comment on above: Order Comment: Speci men Type: BLOOD SPECIMEN Performed By: #### 5 8410-2 #### [facility] CLIA [id number] [address] Hemoglobin (Bld) [Mass/Vol] 16.1 g/dL High 11.5-15.5 [facility] Comment on above: Order Comment: Speci men Type: BLOOD SPECIMEN Performed By: #### 5 8410-2 #### [facility] CLIA [id number] [address] MCH (RBC) [Entitic mass] 29.9 pg Normal 26.0-34.0 [facility] Comment on above: Order Comment: Speci men Type: BLOOD SPECIMEN Performed By: #### 5 8410-2 #### [facility] CLIA [id number] [address] MCHC (RBC) [Mass/Vol] 33.4 g/dL Normal 30.5-36.0 [facility] Comment on above: Order Comment: Speci men Type: BLOOD SPECIMEN Performed By: #### 5 8410-2 #### [facility] CLIA [id number] [address] MCV (RBC) [Entitic vol] 89.6 fL Normal 80.0-100.0 [facility] Comment on above: Order Comment: Speci men Type: BLOOD SPECIMEN Performed By: #### 5 8410-2 #### [facility] CLIA [id number] [address] Nucleated RBC (Bld) [#/Vol] 10*3/uL Normal <0.01 [facility] Comment on above: Order Comment: Speci men Type: BLOOD SPECIMEN Performed By: #### 5 8410-2 #### [facility] CLIA [id number] [address] Platelet mean volume (Bld) [Entitic vol] 9.9 fL Normal 9.0-12.7 [facility] Comment on above: Order Comment: Speci men Type: BLOOD SPECIMEN Performed By: #### 5 8410-2 #### [facility] CLIA [id number] [address] Platelets (Bld) [#/Vol] 194 10*3/uL Normal 150-400 [facility] Comment on above: Order Comment: Speci men Type: BLOOD SPECIMEN Performed By: #### 5 8410-2 #### [facility] CLIA [id number] [address] OF [facility] RBC (Bld) [#/Vol] 5.38 10*6/uL High 3.90-5.20 [facility] Comment on above: Order Comment: Speci men Type: BLOOD SPECIMEN Performed By: #### 5 8410-2 #### [facility] CLIA [id number] [address] OF [facility] WBC (Bld) [#/Vol] 8.22 10*3/uL Normal 3.70-11.00 [facility] Comment on above: Order Comment: Speci men Type: BLOOD SPECIMEN Performed By: #### 5 8410-2 #### [facility] CLIA [id number] [address] CNOVSPon 02-16-2021 CNOVSP Visit (SP) Office ([place]) -- JODIE CHILEL ([id number]) 1970 F Date Time Provider Department 02/16/21 1:20 PM HEMANT SOSA During your visit today, we recorded the following information about you: Temperature Pulse Blood pressure Weight 95.8 degrees 100/minute 128/86 94.1 kg Height 1.524 m Hemant Sosa MD 02/25/2021 2:02 PM Signed Gynecologic Oncology [facility] Consultation Date: 02/16/2021 PROBLEM/CC: Jodie Chilel [...] Diabetes mellitus type II - Diabetic neuropathy ([facility]) 12/11/2017 - Fibromyalgia - Hypothyroidism - Insomnia, unspecified - Lazy eye since - Menopause - Morbid obesity with BMI of 45.0-49.9, adult ([facility]) 03/29/2017 - Schizoaffective disorder, bipolar type ([facility]) 04/14/2015 - Tobacco use disorder 01/21/2021 Sleep Apnea PAST SURGICAL HISTORY Procedure Laterality Date - BACK SURGERY HX 02/03/2019 bilateral laminotomies, decompression L5 and S1 nerve roots, removal of epidural lipomatosis - D+C 01/28/2021 Adenocarcioma FIGO 1, [facility]. Dr. Phan - LAP SURG APPENDECTOMY [...] For thyroi (more content not included)... Normal [facility] CONFIRM BLOOD TYPEon 021 ABO A Normal [facility] Comment on above: Order Comment: Speci men Type: BLOOD SPECIMEN Performed By: #### C ONABO ####[facility] [id number] [place] [address] [place] Rh Nom (Bld) Positive Normal [facility] Comment on above: Order Comment: Speci men Type: BLOOD SPECIMEN Performed By: #### C ONABO ####[facility] [id number] [address] PT panel Coag (PPP)on 2020 INR Coag (PPP) [Relative time] 1.1 {INR} Normal 0.9-1.3 [facility] Comment on above: Order Comment: Speci men Type: BLOOD SPECIMEN Result Comment: Nikkie min K Antagonist (VKA) Therapeutic Range: INR 2 to 3 (Target INR of 2.5) Note: For patients treated with VKA drugs, such as warfarin, the [place] College [employer]icians 2012 Guideline recommends [...] 2.5 to 3.5 (target INR of 3). Duglas HASKINS, et al. Chest 2012, 141:7S-47S Gretchen RA, et al. JAC 2017, 70: 252-289 Performed By: #### 1 4979-9, 36847-9 #### [facility] CLIA [id number] [address] PT Coag (PPP) [Time] 11.3 s Normal 9.7-13.0 [facility] Comment on above: Order Comment: Speci men Type: BLOOD SPECIMEN Performed By: #### 1 4979-9, 75192-0 #### [facility] CLIA [id number] [address] TYPE AND SCREEN,30 DAYon ABO A Normal [facility] Comment on above: Order Comment: Speci men Type: BLOOD SPECIMEN Performed By: #### T SCR30 ####[facility] [id number] [address] HISTORICAL AB SCR STATUS Negative Normal [facility] Comment on above: Order Comment: Speci men Type: BLOOD SPECIMEN Performed By: #### T SCR30 ####[facility] [id number] [address] Rh Nom (Bld) Positive Normal [facility] Comment on above: Order Comment: Speci men Type: BLOOD SPECIMEN Performed By: #### T SCR30 ####[facility] [id number] [address] TYPE AND SCREEN EXPIRATION 03/18/2021 23:59 Normal [facility] Comment on above: Order Comment: Speci men Type: BLOOD SPECIMEN Performed By: #### T SCR30 ####[facility] [id number] [address] aPTT PPPon 02-16-2021 aPTT Coag (PPP) [Time] 27.1 s Normal 23.0-32.4 [facility] Comment on above: Order Comment: Speci men Type: BLOOD SPECIMEN Performed By: #### 1 4979-9, 87799-2 #### [facility] CLIA [id number] [address] XR Chest PA and Lateralon IMPRESSION: Findings suggestive of mild atelectasis in the right middle lobe. Tobacco Stemmer Machine: PSCB Transcribe Date/Time: Sep 01 2020 5:54P Dictated by : JANA LEDEZMA MD This examination was interpreted and the report reviewed and electronically signed by: JANA LEDEZMA MD on Sep 01 2020 5:55PM [facility] DIVISION OF RADIOLOGY * * *Final Report* [...] soft tissues: Unremarkable. DIVISION OF RADIOLOGY Provider, Gonzales Patel [facility] - 09/01/2020 * * *Final Report* * [...] mild atelectasis in the right middle lobe. Tobacco Stemmer Machine: KATERYNA Transcribe Date/Time: Sep 01 2020 5:54P Dictated by : JANA LEDEZMA MD This examination was interpreted and the report reviewed and electronically signed by: JANA LEDEZMA MD on Sep 01 2020 5:55PM EST [facility] Radiology Study observation (narrative) [facility] XR Chest PA and LateralOrder ed By: Ccf Provider on 09-01-2020 [facility] MRI SPINE LUMBAR W/ + W/O CO [...] it is assumed that there are 5 iec-fox-gwyfqjy, lumbar-type vertebrae, and the most caudal fully [...] 04/26/2019 3:11:21 PM Ordering Provider:Maria L Hayden [facility] ([place]) .GFRon 02-04-2019 GFR >60 Normal [facility] ([place]) Comment on above: Result Comment: GFR Population [...] G FR, ANEU, CBC, ADIFF, BMP #### [address] [address] GFR Non- >60 Normal [facility] ([place]) Comment on above: Result Comment: GFR Population [...] G FR, ANEU, CBC, ADIFF, BMP #### [place] [address] A1Con 02-04-2019 HbA1c (Bld) [Mass fraction] 8.8 % High 4.0-6.0 [facility] ([place]) Comment on above: Performed By: #### G FR, ANEU, CBC, ADIFF, BMP #### [address] [address] [facility] Calcium [Mass/Vol] 8.3 mg/dL Low 8.4-10.1 [facility] ([place]) Comment on above: Performed By: #### G FR, ANEU, CBC, ADIFF, BMP #### [address] [address] Chloride [Moles/Vol] 104 mmol/L Normal 98-110 [facility] ([place]) Comment on above: Performed By: #### G FR, ANEU, CBC, ADIFF, BMP #### [address] [address] CO2 [Moles/Vol] 29 mmol/L Normal 22-32 [facility] ([place]) Comment on above: Performed By: #### G FR, ANEU, CBC, ADIFF, BMP #### [address] [address] Creatinine [Mass/Vol] 0.81 mg/dL Normal 0.50-1.20 [facility] ([place]) Comment on above: Performed By: #### G FR, ANEU, CBC, ADIFF, BMP #### [address] [address] Electrolyte Balance 8.0 mEq/L Normal 4.0-15.0 [facility] ([place]) Comment on above: Performed By: #### G FR, ANEU, CBC, ADIFF, BMP #### [address] [address] Glucose [Mass/Vol] 252 mg/dL High 70-110 [facility] ([place]) Comment on above: Performed By: #### G FR, ANEU, CBC, ADIFF, BMP #### [address] [address] Potassium [Moles/Vol] 4.0 mmol/L Normal 3.5-5.0 [facility] ([place]) Comment on above: Performed By: #### G FR, ANEU, CBC, ADIFF, BMP #### [address] [address] Sodium [Moles/Vol] 141 mmol/L Normal 136-145 [facility] ([place]) Comment on above: Performed By: #### G FR, ANEU, CBC, ADIFF, BMP #### [address] [address] Urea nitrogen [Mass/Vol] 21.0 mg/dL Normal 8.0-22.0 [facility] ([place]) Comment on above: Performed By: #### G FR, ANEU, CBC, ADIFF, BMP #### [address] [address] Urea nitrogen/Creatinine [Mass ratio] 25.9 ratio High 10.0-22.0 [facility] ([place] Comment on above: Performed By: #### G FR, ANEU, CBC, ADIFF, BMP #### [address] [address] HGMPon 02-04-2019 Erythrocyte distribution width (RBC) [Ratio] 14.6 % Normal 11.5-15.5 [facility] ([place]) Comment on above: Performed By: #### G FR, ANEU, CBC, ADIFF, BMP #### [place] [address] Hematocrit (Bld) [Volume fraction] 40.2 % Normal 34.0-46.0 [facility] ([place]) Comment on above: Performed By: #### G FR, ANEU, CBC, ADIFF, BMP #### [place] [address] Hemoglobin (Bld) [Mass/Vol] 13.2 G/dL Normal 12.0-16.0 [facility] ([place] Comment on above: Performed By: #### G FR, ANEU, CBC, ADIFF, BMP #### [place] [address] MCH (RBC) [Entitic mass] 29.9 pg Normal 27.0-33.0 [facility] ([place] Comment on above: Performed By: #### G FR, ANEU, CBC, ADIFF, BMP #### [place] [id number] MCHC (RBC) [Mass/Vol] 32.9 G/dL Normal 32.0-36.0 [facility] ([place] Comment on above: Performed By: #### G FR, ANEU, CBC, ADIFF, BMP #### [place] [id number] MCV (RBC) [Entitic vol] 90.9 fL Normal 80.0-99.0 [facility] ([place] Comment on above: Performed By: #### G FR, ANEU, CBC, ADIFF, BMP #### [place] [address] Platelet mean volume (Bld) [Entitic vol] 8.4 fL Normal 6.6-10.5 [facility] ([place]) Comment on above: Performed By: #### G FR, ANEU, CBC, ADIFF, BMP #### [address] [address] Platelets (Bld) [#/Vol] 166 10 3/mcL Normal 150-450 [facility] ([place] Comment on above: Performed By: #### G FR, ANEU, CBC, ADIFF, BMP #### [place] [address] RBC (Bld) [#/Vol] 4.42 10 6/mcL Normal 4.10-5.30 [facility] ([place]) Comment on above: Performed By: #### G FR, ANEU, CBC, ADIFF, BMP #### [address] [address] WBC (Bld) [#/Vol] 10.20 10 3/mcL Normal 4.50-10.80 [facility] ([place]) Comment on above: Performed By: #### G FR, ANEU, CBC, ADIFF, BMP #### [address] [address] .Auto Diffon 02-03-2019 Ammonia (P) [Mass/Vol] 1.00 10 3/mcL Normal 0.09-1.40 [facility] ([place]) Comment on above: Performed By: #### C BC, ANEU, ADIFF #### [place] [id number] Basophils (Bld) [#/Vol] 0.00 10 3/mcL Normal 0.00-0.27 [facility] ([place]) Comment on above: Performed By: #### C BC, ANEU, ADIFF #### [place] [id number] Basophils/100 WBC (Bld) 0.1 % Normal 0.0-2.5 [facility] ([place]) Comment on above: Performed By: #### C BC, ANEU, ADIFF #### [place] [id number] Eosinophils (Bld) [#/Vol] 0.00 10 3/mcL Normal 0.00-0.65 [facility] ([place]) Comment on above: Performed By: #### C BONITA LINARES, ADIFF #### [address] [address] Eosinophils/100 WBC (Bld) 0.0 % Normal 0.0-6.0 [facility] ([place]) Comment on above: Performed By: #### C BONITA LINARES, ADIFF #### [address] [address] Lymphocytes (Bld) [#/Vol] 2.20 10 3/mcL Normal 0.90-4.32 [facility] ([place]) Comment on above: Performed By: #### C BONITA LINARES, ADIFF #### [address] [address] Lymphocytes/100 WBC (Bld) 15.0 % Low 20.0-40.0 [facility] ([place]) Comment on above: Performed By: #### C BONITA LINARES, ADIFF #### [address] [address] Monocytes/100 WBC (Bld) 6.7 % Normal 2.0-13.0 [facility] ([place]) Comment on above: Performed By: #### C BONITA LINARES, ADIFF #### [address] [address] Neutrophils/100 WBC (Bld) 78.2 % High 50.0-75.0 [facility] ([place]) Comment on above: Performed By: #### C MILAGROS ANEU, ADIFF #### [address] [address] .GFRon 02-03-2019 GFR >60 Normal [facility] ([place]) Comment on above: Result Comment: GFR [...] G FR, ANEU, CBC, ADIFF, BMP #### [address] [address] GFR Non- >60 Normal [facility] ([place]) Comment on above: Result Comment: GFR Population [...] G FR, ANEU, CBC, ADIFF, BMP #### [address] [address] .NEUABSon 02-03-2019 Neutrophils (Bld) [#/Vol] 11.40 10 3/mcL High 2.25-8.10 [facility] ([place]) Comment on above: Performed By: #### C BC, ANEU, ADIFF #### [address] [address] CBCon 02-03-2019 Erythrocyte distribution width (RBC) [Ratio] 15.0 % Normal 11.5-15.5 [facility] ([place]) Comment on above: Performed By: #### C BC, ANEU, ADIFF #### [address] [address] Hematocrit (Bld) [Volume fraction] 41.8 % Normal 34.0-46.0 [facility] ([place]) Comment on above: Performed By: #### C BC, ANEU, ADIFF #### [address] [address] Hemoglobin (Bld) [Mass/Vol] 13.5 G/dL Normal 12.0-16.0 [facility] ([place]) Comment on above: Performed By: #### C BONITA LINARES, ADIFF #### [address] [address] MCH (RBC) [Entitic mass] 29.7 pg Normal 27.0-33.0 [facility] ([place]) Comment on above: Performed By: #### C BONITA LINARES, ADIFF #### [address] [address] MCHC (RBC) [Mass/Vol] 32.4 G/dL Normal 32.0-36.0 [facility] ([place]) Comment on above: Performed By: #### C BONITA LINARES, ADIFF #### [address] [address] MCV (RBC) [Entitic vol] 91.7 fL Normal 80.0-99.0 [facility] ([place]) Comment on above: Performed By: #### C BONITA LINARES, ADIFF #### [address] [address] Platelet mean volume (Bld) [Entitic vol] 8.6 fL Normal 6.6-10.5 [facility] ([place]) Comment on above: Performed By: #### C BONITA LINARES, ADIFF #### [address] [address] Platelets (Bld) [#/Vol] 215 10 3/mcL Normal 150-450 [facility] ([place]) Comment on above: Performed By: #### C BONITA LINARES, ADIFF #### [address] [address] RBC (Bld) [#/Vol] 4.56 10 6/mcL Normal 4.10-5.30 [facility] ([place]) Comment on above: Performed By: #### C BONITA LINARES, ADIFF #### [address] [address] WBC (Bld) [#/Vol] 14.60 10 3/mcL High 4.50-10.80 [facility] ([place]) Comment on above: Performed By: #### C BC, ANEU, ADIFF #### [address] [address] CMPon 02-03-2019 AST [Catalytic activity/Vol] 36 U/L High 8-34 [facility] ([place]) Comment on above: Performed By: #### G FR, ANEU, CBC, ADIFF, BMP #### [address] [address] Potassium [Moles/Vol] 4.0 mmol/L Normal 3.5-5.0 [facility] ([place]) Comment on above: Performed By: #### G FR, ANEU, CBC, ADIFF, BMP #### [place] [address] Albumin/Globulin [Mass ratio] 0.9 {ratio} Normal 0.9-1.6 [facility] ([place]) Comment on above: Performed By: #### G FR, ANEU, CBC, ADIFF, BMP #### [address] [address] ALP [Catalytic activity/Vol] 90 U/L Normal 38-126 [facility] ([place] Comment on above: Performed By: #### G FR, ANEU, CBC, ADIFF, BMP #### [address] [address] Bili Total 0.4 mg/dL Normal 0.2-1.2 [facility] ([place]) Comment on above: Performed By: #### G FR, ANEU, CBC, ADIFF, BMP #### [address] [address] Creatinine [Mass/Vol] 0.66 mg/dL Normal 0.50-1.20 [facility] ([place] Comment on above: Performed By: #### G FR, ANEU, CBC, ADIFF, BMP #### [address] [address] Globulin (S) [Mass/Vol] 3.5 G/dL Normal 1.5-3.8 [facility] ([place]) Comment on above: Performed By: #### G FR, ANEU, CBC, ADIFF, BMP #### [address] [address] Protein [Mass/Vol] 6.8 G/dL Normal 6.0-8.5 [facility] ([place]) Comment on above: Performed By: #### G FR, ANEU, CBC, ADIFF, BMP #### [address] [address] Urea nitrogen/Creatinine [Mass ratio] 28.8 ratio High 10.0-22.0 [facility] ([place] Comment on above: Performed By: #### Arben FR, ANEU, CBC, ADIFF, BMP #### [address] [address] Albumin [Mass/Vol] 3.3 G/dL Normal 3.2-4.8 [facility] ([place] Comment on above: Performed By: #### Arben FR, ANEU, CBC, ADIFF, BMP #### [address] [address] ALT [Catalytic activity/Vol] 36 U/L Normal 10-49 [facility] ([place] Comment on above: Performed By: #### G FR, ANEU, CBC, ADIFF, BMP #### [address] [address] Calcium [Mass/Vol] 8.6 mg/dL Normal 8.4-10.1 [facility] ([place] Comment on above: Performed By: #### G FR, ANEU, CBC, ADIFF, BMP #### [address] [address] Chloride [Moles/Vol] 105 mmol/L Normal 98-110 [facility] ([place] Comment on above: Performed By: #### G FR, ANEU, CBC, ADIFF, BMP #### [address] [address] CO2 [Moles/Vol] 26 mmol/L Normal 22-32 [facility] ([place] Comment on above: Performed By: #### G FR, ANEU, CBC, ADIFF, BMP #### [address] [address] Electrolyte Balance 10.0 mEq/L Normal 4.0-15.0 [facility] ([place]) Comment on above: Performed By: #### G FR, ANEU, CBC, ADIFF, BMP #### [address] [address] Glucose [Mass/Vol] 221 mg/dL High 70-110 [facility] ([place] Comment on above: Performed By: #### G FR, ANEU, CBC, ADIFF, BMP #### [address] [address] Sodium [Moles/Vol] 141 mmol/L Normal 136-145 [facility] ([place] Comment on above: Performed By: #### G FR, ANEU, CBC, ADIFF, BMP #### [address] [address] Urea nitrogen [Mass/Vol] 19.0 mg/dL Normal 8.0-22.0 [facility] ([place]) Comment on above: Performed By: #### G FR, ANEU, CBC, ADIFF, BMP #### [address] [address] XR FLUORO 1-2 HRS TECH TIMEo n 02-03-2019 XR FLUORO 1-2 HRS TECH TIME ORIGINAL XR FLUORO 1-2 HRS TECH TIME CLINICAL STATEMENT: L5-S1 DECOMPRESS; PAIN HNP COMPARISON: None Technical Details: Tech Time - 10:00A-11:40A; C-Arm # - 7; Total Dose - 17.3MGY; Images - 4; Safety Spec - TLB; History - HNP; Fluoro Time [...] AM Sign Date: 02/03/2019 11:09:27 AM Normal [facility] ([place]) .Auto Diffon 02-01-2019 Ammonia (P) [Mass/Vol] 0.10 10 3/mcL Normal 0.09-1.40 [facility] ([place] Comment on above: Performed By: #### G FR, ANEU, CBC, ADIFF, BMP #### [address] [address] Basophils (Bld) [#/Vol] 0.00 10 3/mcL Normal 0.00-0.27 [facility] ([place] Comment on above: Performed By: #### G FR, ANEU, CBC, ADIFF, BMP #### [address] [address] Basophils/100 WBC (Bld) 0.6 % Normal 0.0-2.5 [facility] ([place] Comment on above: Performed By: #### G FR, ANEU, CBC, ADIFF, BMP #### [address] [address] Eosinophils (Bld) [#/Vol] 0.00 10 3/mcL Normal 0.00-0.65 [facility] ([place] Comment on above: Performed By: #### G FR, ANEU, CBC, ADIFF, BMP #### [address] [address] Eosinophils/100 WBC (Bld) 0.5 % Normal 0.0-6.0 [facility] ([place] Comment on above: Performed By: #### G FR, ANEU, CBC, ADIFF, BMP #### [address] [address] Lymphocytes (Bld) [#/Vol] 0.90 10 3/mcL Normal 0.90-4.32 [facility] ([place] Comment on above: Performed By: #### G FR, ANEU, CBC, ADIFF, BMP #### [address] [address] Lymphocytes/100 WBC (Bld) 15.7 % Low 20.0-40.0 [facility] ([place] Comment on above: Performed By: #### G FR, ANEU, CBC, ADIFF, BMP #### [address] [address] Monocytes/100 WBC (Bld) 1.7 % Low 2.0-13.0 [facility] ([place] Comment on above: Performed By: #### G FR, ANEU, CBC, ADIFF, BMP #### [address] [address] Neutrophils/100 WBC (Bld) 81.5 % High 50.0-75.0 [facility] ([place] Comment on above: Performed By: #### G FR, ANEU, CBC, ADIFF, BMP #### [address] [address] .GFRon 02-01-2019 GFR >60 Normal [facility] ([place] Comment on above: Result Comment: GFR Population [...] G FR, ANEU, CBC, ADIFF, BMP #### [address] [address] GFR Non- >60 Normal [facility] ([place] Comment on above: Result Comment: GFR Population [...] G FR, ANEU, CBC, ADIFF, BMP #### [address] [address] .NEUABSon 02-01-2019 Neutrophils (Bld) [#/Vol] 4.70 10 3/mcL Normal 2.25-8.10 [facility] ([place] Comment on above: Performed By: #### G FR, ANEU, CBC, ADIFF, BMP #### [address] [address] [facility] Calcium [Mass/Vol] 8.0 mg/dL Low 8.4-10.1 [facility] ([place] Comment on above: Performed By: #### G FR, ANEU, CBC, ADIFF, BMP #### [place] [address] Chloride [Moles/Vol] 105 mmol/L Normal 98-110 [facility] ([place] Comment on above: Performed By: #### G FR, ANEU, CBC, ADIFF, BMP #### [place] [address] CO2 [Moles/Vol] 27 mmol/L Normal 22-32 [facility] ([place] Comment on above: Performed By: #### G FR, ANEU, CBC, ADIFF, BMP #### [place] [address] Creatinine [Mass/Vol] 0.57 mg/dL Normal 0.50-1.20 [facility] ([place] Comment on above: Performed By: #### G FR, ANEU, CBC, ADIFF, BMP #### [place] [address] Electrolyte Balance 7.0 mEq/L Normal 4.0-15.0 [facility] ([place] Comment on above: Performed By: #### G FR, ANEU, CBC, ADIFF, BMP #### [place] [address] Glucose [Mass/Vol] 307 mg/dL High 70-110 [facility] ([place] Comment on above: Performed By: #### G FR, ANEU, CBC, ADIFF, BMP #### [place] [address] Potassium [Moles/Vol] 4.4 mmol/L Normal 3.5-5.0 [facility] ([place] Comment on above: Performed By: #### G FR, ANEU, CBC, ADIFF, BMP #### [place] [address] Sodium [Moles/Vol] 139 mmol/L Normal 136-145 [facility] ([place] Comment on above: Performed By: #### G FR, ANEU, CBC, ADIFF, BMP #### [place] [address] Urea nitrogen [Mass/Vol] 12.0 mg/dL Normal 8.0-22.0 [facility] ([place] Comment on above: Performed By: #### G FR, ANEU, CBC, ADIFF, BMP #### [place] [address] Urea nitrogen/Creatinine [Mass ratio] 21.1 ratio Normal 10.0-22.0 [facility] ([place] Comment on above: Performed By: #### G FR, ANEU, CBC, ADIFF, BMP #### [place] [id number] CBCon 02-01-2019 Erythrocyte distribution width (RBC) [Ratio] 14.4 % Normal 11.5-15.5 [facility] ([place] Comment on above: Performed By: #### G FR, ANEU, CBC, ADIFF, BMP #### [place] [id number] Hematocrit (Bld) [Volume fraction] 39.2 % Normal 34.0-46.0 [facility] ([place] Comment on above: Performed By: #### G FR, ANEU, CBC, ADIFF, BMP #### [place] [id number] Hemoglobin (Bld) [Mass/Vol] 13.0 G/dL Normal 12.0-16.0 [facility] ([place] Comment on above: Performed By: #### G FR, ANEU, CBC, ADIFF, BMP #### [address] [address] MCH (RBC) [Entitic mass] 30.0 pg Normal 27.0-33.0 [facility] ([place] Comment on above: Performed By: #### G FR, ANEU, CBC, ADIFF, BMP #### [address] [address] MCHC (RBC) [Mass/Vol] 33.2 G/dL Normal 32.0-36.0 [facility] ([place] Comment on above: Performed By: #### G FR, ANEU, CBC, ADIFF, BMP #### [address] [address] MCV (RBC) [Entitic vol] 90.3 fL Normal 80.0-99.0 [facility] ([place] Comment on above: Performed By: #### G FR, ANEU, CBC, ADIFF, BMP #### [address] [address] Platelet mean volume (Bld) [Entitic vol] 8.8 fL Normal 6.6-10.5 [facility] ([place] Comment on above: Performed By: #### G FR, ANEU, CBC, ADIFF, BMP #### [address] [address] Platelets (Bld) [#/Vol] 156 10 3/mcL Normal 150-450 [facility] ([place] Comment on above: Performed By: #### G FR, ANEU, CBC, ADIFF, BMP #### [address] [address] RBC (Bld) [#/Vol] 4.35 10 6/mcL Normal 4.10-5.30 [facility] ([place] Comment on above: Performed By: #### G FR, ANEU, CBC, ADIFF, BMP #### [address] [address] WBC (Bld) [#/Vol] 5.80 10 3/mcL Normal 4.50-10.80 [facility] ([place] Comment on above: Performed By: #### G FR, ANEU, CBC, ADIFF, BMP #### [facility] [address] [place] [address] Hemoglobin A1con 02-01-2019 HbA1c (Bld) [Mass fraction] 8.2 % High 4.3-5.6 [facility] Comment on above: Performed By: #### H BA1C #### [facility]ine [facility] [address] [place], [place] [address] HbA1c (Bld) [Mass fraction] 189 mg/dL Normal [facility] Comment on above: Performed By: #### H BA1C #### [facility] [address] [place], [place] [address] XR SPINE LUMBAR AP/LAT/FLEX/ EXTon 02-01-2019 XR [...] PM Sign Date: 02/01/2019 7:35:41 PM Normal [facility] ([place]) Vital Signs Date Time Vital Sign Value Performing Clinician Facility 01-02-2025 [id number] Body height 152.[address] Sophie Huitron MD Work Phone: [facility] 01-02-2025 09:28-0400 Body mass index (BMI) [Ratio] 38.8 kg/m2 Dr. Sophie Huitron MD Work Phone: [facility] 01-02-2025 09:28-0400 Body temperature 98.2 [degF] Dr. Sophie Huitron MD Work Phone: [facility] 01-02-2025 09:28-0400 Body weight 90.[address] Sophie Huitron MD Work Phone: [facility] 01-02-2025 09:28-0400 Diastolic blood pressure 75 mm[Hg] Dr. Sophie Huitron MD Work Phone: [facility] 01-02-2025 09:28-0400 Heart rate 96 /min Dr. Sophie Huitron MD Work Phone: [facility] 01-02-2025 09:28-0400 Respiratory rate 15 /min Dr. Sophie Huitron MD Work Phone: [facility] 01-02-2025 09:28-0400 SaO2% (BldA) [Mass fraction] 98 % Dr. Sophie Huitron MD Work Phone: [facility] 01-02-2025 09:28-0400 Systolic blood pressure 106 mm[Hg] Dr. Sophie Huitron MD Work Phone: [facility] 12-08-2024 19:39-0400 Body temperature 98.1 [degF] Dr. Sophie Huitron MD Work Phone: [facility] 12-08-2024 19:39-0400 Diastolic blood pressure 60 mm[Hg] Dr. Sophie Huitron MD Work Phone: [facility] 12-08-2024 19:39-0400 Heart rate 98 /min Dr. Sophie Huitron MD Work Phone: [facility] 12-08-2024 19:39-0400 Respiratory rate 18 /min Dr. Sophie Huitron MD Work Phone: [facility] 12-08-2024 19:39-0400 SaO2% (BldA) [Mass fraction] 97 % Dr. Sophie Huitron MD Work Phone: [facility] 12-08-2024 19:39-0400 Systolic blood pressure 95 mm[Hg] Dr. Sophie Huitron MD Work Phone: [facility] 12-08-2024 18:19-0400 Body height 151.[address] Sophie Huitron MD Work Phone: [facility] 12-08-2024 18:19-0400 Body mass index (BMI) [Ratio] 40.2 kg/m2 Dr. Sophie Huitron MD Work Phone: [facility] 12-08-2024 18:19-0400 Body weight 92.[address] Sophie Huitron MD Work Phone: [facility] 11-26-2024 09:32-0400 Body height 152.[address] Sophie Huitron MD Work Phone: [facility] 11-26-2024 09:32-0400 Body mass index (BMI) [Ratio] 40 kg/m2 Dr. Sophie Huitron MD Work Phone: [facility] 11-26-2024 09:32-0400 Body weight 92.[address] Sophie Huitron MD Work Phone: [facility] 11-20-2024 09:57-0400 Body height 152.[address] Sophie Huitron MD Work Phone: [facility] 11-20-2024 09:57-0400 Body mass index (BMI) [Ratio] 39 kg/m2 Dr. Sophie Huitron MD Work Phone: [facility] 11-20-2024 09:57-0400 Body temperature 98.2 [degF] Dr. Sophie Huitron MD Work Phone: [facility] 11-20-2024 09:57-0400 Body weight 90.[address] Sophie Huitron MD Work Phone: [facility] 11-20-2024 09:57-0400 Diastolic blood pressure 75 mm[Hg] Dr. Sophie Huitron MD Work Phone: [facility] 11-20-2024 09:57-0400 Heart rate 94 /min Dr. Sophie Huitron MD Work Phone: [facility] 11-20-2024 09:57-0400 Respiratory rate 16 /min Dr. Sophie Huitron MD Work Phone: [facility] 11-20-2024 09:57-0400 SaO2% (BldA) [Mass fraction] 98 % Dr. Sophie Huitron MD Work Phone: [facility] 11-20-2024 09:57-0400 Systolic blood pressure 109 mm[Hg] Dr. Sophie Huitron MD Work Phone: [facility] 11-08-2024 22:12-0400 Body temperature 98.2 [degF] Dr. Sophie Huitron MD Work Phone: [facility] 11-08-2024 22:12-0400 Diastolic blood pressure 52 mm[Hg] Dr. Sophie Huitron MD Work Phone: [facility] 11-08-2024 22:12-0400 Heart rate 98 /min Dr. Sophie Huitron MD Work Phone: [facility] 11-08-2024 22:12-0400 Respiratory rate 18 /min Dr. Sophie Huitron MD Work Phone: [facility] 11-08-2024 22:12-0400 SaO2% (BldA) [Mass fraction] 99 % Dr. Sophie Huitron MD Work Phone: [facility] 11-08-2024 22:12-0400 Systolic blood pressure 102 mm[Hg] Dr. Sophie Huitron MD Work Phone: [facility] 11-08-2024 20:48-0400 Body height 152.[address] Sophie Huitron MD Work Phone: [facility] 11-08-2024 20:48-0400 Body mass index (BMI) [Ratio] 41.1 kg/m2 Dr. Sophie Huitron MD Work Phone: [facility] 11-08-2024 20:48-0400 Body weight 95.[address] Sophie Huitron MD Work Phone: [facility] 10-02-2024 11:37-0400 Body mass index (BMI) [Ratio] 40.8 kg/m2 Dr. Sophie Huitron MD Work Phone: [facility] 10-02-2024 11:37-0400 Body temperature 98.4 [degF] Dr. Sophie Huitron MD Work Phone: [facility] 10-02-2024 11:37-0400 Body weight 94.[address] Sophie Huitron MD Work Phone: [facility] 10-02-2024 11:37-0400 Diastolic blood pressure 72 mm[Hg] Dr. Sophie Huitron MD Work Phone: [facility] 10-02-2024 11:37-0400 Heart rate 101 /min Dr. Sophie Huitron MD Work Phone: [facility] 10-02-2024 11:37-0400 Respiratory rate 16 /min Dr. Sophie Huitron MD Work Phone: [facility] 10-02-2024 11:37-0400 SaO2% (BldA) [Mass fraction] 98 % Dr. Sophie Huitron MD Work Phone: [facility] 10-02-2024 11:37-0400 Systolic blood pressure 104 mm[Hg] Dr. Sophie Huitron MD Work Phone: [facility] 09-12-2024 09:35-0400 Body height 151 cm Nacho Cornell [employer] Work Phone: [facility] 09-12-2024 09:35-0400 Body mass index (BMI) [Ratio] 41.66 kg/m2 Nacho Cornell [employer] Work Phone: [facility] 09-12-2024 09:35-0400 Body weight 95 kg Nacho Cornell [employer] Work Phone: [facility] 09-12-2024 09:35-0400 Diastolic blood pressure 76 mm[Hg] Nacho Cornell [employer] Work Phone: [facility] 09-12-2024 09:35-0400 Heart rate 84 /min Nacho Cornell [employer] Work Phone: [facility] 09-12-2024 09:35-0400 Respiratory rate 16 /min Nacho Cornell [employer] Work Phone: [facility] 09-12-2024 09:35-0400 Systolic blood pressure 110 mm[Hg] Nacho Cornell [employer] Work Phone: [facility] 09-10-2024 10:05-0400 Body height 152.[address] Sophie Huitron MD Work Phone: [facility] 09-10-2024 10:05-0400 Body mass index (BMI) [Ratio] 41.3 kg/m2 Dr. Sophie Huitron MD Work Phone: [facility] 09-10-2024 10:05-0400 Body temperature 98.2 [degF] Dr. Sophie Huitron MD Work Phone: [facility] 09-10-2024 10:05-0400 Body weight 96.[address] Sophie Huitron MD Work Phone: [facility] 09-10-2024 10:05-0400 Diastolic blood pressure 74 mm[Hg] Dr. Sophie Huitron MD Work Phone: [facility] 09-10-2024 10:05-0400 Heart rate 93 /min Dr. Sophie Huitron MD Work Phone: [facility] 09-10-2024 10:05-0400 Respiratory rate 14 /min Dr. Sophie Huitron MD Work Phone: [facility] 09-10-2024 10:05-0400 SaO2% (BldA) [Mass fraction] 97 % Dr. Sophie Huitron MD Work Phone: [facility] 09-10-2024 10:05-0400 Systolic blood pressure 110 mm[Hg] Dr. Sophie Huitron MD Work Phone: [facility] 09-02-2024 19:36-0400 Body temperature 98.2 [degF] Dr. Sophie Huitron MD Work Phone: [facility] 09-02-2024 19:36-0400 Diastolic blood pressure 67 mm[Hg] Dr. Sophie Huitron MD Work Phone: [facility] 09-02-2024 19:36-0400 Heart rate 78 /min Dr. Sophie Huitron MD Work Phone: [facility] 09-02-2024 19:36-0400 Respiratory rate 12 /min Dr. Sophie Huitron MD Work Phone: [facility] 09-02-2024 19:36-0400 SaO2% (BldA) [Mass fraction] 97 % Dr. Sophie Huitron MD Work Phone: [facility] 09-02-2024 19:36-0400 Systolic blood pressure 135 mm[Hg] Dr. Sophie Huitron MD Work Phone: [facility] 09-02-2024 13:46-0400 Body height 152.[address] Sophie Huitron MD Work Phone: [facility] 09-02-2024 13:46-0400 Body mass index (BMI) [Ratio] 39 kg/m2 Dr. Sophie Huitron MD Work Phone: [facility] 09-02-2024 13:46-0400 Body weight 90.[address] Sophie Huitron MD Work Phone: [facility] 08-13-2024 09:35-0500 Body mass index (BMI) [Ratio] 41 kg/m2 Dr. Sophie Huitron MD Work Phone: [facility] 08-13-2024 09:35-0500 Body temperature 98 [degF] Dr. Sophie Huitron MD Work Phone: [facility] 08-13-2024 09:35-0500 Body weight 95.[address] Sophie Huitron MD Work Phone: [facility] 08-13-2024 09:35-0500 Diastolic blood pressure 76 mm[Hg] Dr. Sophie Huitron MD Work Phone: [facility] 08-13-2024 09:35-0500 Heart rate 94 /min Dr. Sophie Huitron MD Work Phone: [facility] 08-13-2024 09:35-0500 Respiratory rate 17 /min Dr. Sophie Huitron MD Work Phone: [facility] 08-13-2024 09:35-0500 SaO2% (BldA) [Mass fraction] 95 % Dr. Sophie Huitron MD Work Phone: [facility] 08-13-2024 09:35-0500 Systolic blood pressure 112 mm[Hg] Dr. Sophie Huitron MD Work Phone: [facility] 07-22-2024 17:23-0500 Body temperature 97.6 [degF] Dr. Sophie Huitron MD Work Phone: [facility] 07-22-2024 17:23-0500 Diastolic blood pressure 76 mm[Hg] Dr. Sophie Huitron MD Work Phone: [facility] 07-22-2024 17:23-0500 Heart rate 82 /min Dr. Sophie Huitron MD Work Phone: [facility] 07-22-2024 17:23-0500 Respiratory rate 15 /min Dr. Sophie Huitron MD Work Phone: [facility] 07-22-2024 17:23-0500 SaO2% (BldA) [Mass fraction] 98 % Dr. Sophie Huitron MD Work Phone: [facility] 07-22-2024 17:23-0500 Systolic blood pressure 138 mm[Hg] Dr. Sophie Huitron MD Work Phone: [facility] 07-22-2024 14:07-0500 Body mass index (BMI) [Ratio] 42 kg/m2 Dr. Sophie Huitron MD Work Phone: [facility] 07-22-2024 14:07-0500 Body weight 97.[address] Sophie Huitron MD Work Phone: [facility] 06-15-2024 12:33-0500 Body temperature 98.7 [degF] Dr. Sophie Huitron MD Work Phone: [facility] 06-15-2024 12:33-0500 Diastolic blood pressure 85 mm[Hg] Dr. Sophie Huitron MD Work Phone: [facility] 06-15-2024 12:33-0500 Heart rate 76 /min Dr. Sophie Huitron MD Work Phone: [facility] 06-15-2024 12:33-0500 Respiratory rate 18 /min Dr. Sophie Huitron MD Work Phone: [facility] 06-15-2024 12:33-0500 SaO2% (BldA) [Mass fraction] 98 % Dr. Sophie Huitron MD Work Phone: [facility] 06-15-2024 12:33-0500 Systolic blood pressure 111 mm[Hg] Dr. Sophie Huitron MD Work Phone: [facility] 06-15-2024 08:58-0500 Body mass index (BMI) [Ratio] 41 kg/m2 Dr. Sophie Huitron MD Work Phone: [facility] 06-15-2024 08:58-0500 Body weight 95.[address] Sophie Huitron MD Work Phone: [facility] 05-31-2024 17:34-0500 Body mass index (BMI) [Ratio] 40.6 kg/m2 Dr. Sophie Huitron MD Work Phone: [facility] 05-31-2024 17:34-0500 Body temperature 97 [degF] Dr. Sophie Huitron MD Work Phone: [facility] 05-31-2024 17:34-0500 Body weight 94.[address] Sophie Huitron MD Work Phone: [facility] 05-31-2024 17:34-0500 Diastolic blood pressure 87 mm[Hg] Dr. Sophie Huitron MD Work Phone: [facility] 05-31-2024 17:34-0500 Heart rate 85 /min Dr. Sophie Huitron MD Work Phone: [facility] 05-31-2024 17:34-0500 Respiratory rate 18 /min Dr. Sophie Huitron MD Work Phone: [facility] 05-31-2024 17:34-0500 SaO2% (BldA) [Mass fraction] 100 % Dr. Sophie Huitron MD Work Phone: [facility] 05-31-2024 17:34-0500 Systolic blood pressure 143 mm[Hg] Dr. Sophie Huitron MD Work Phone: [facility] 08-10-2023 08:42-0500 Body weight 97.07 kg Nacho Cornell [employer] Work Phone: [facility] 08-10-2023 08:42-0500 Diastolic blood pressure 68 mm[Hg] Nacho Cornell [employer] Work Phone: [facility] 08-10-2023 08:42-0500 Heart rate 92 /min Nacho Cornell [employer] Work Phone: [facility] 08-10-2023 08:42-0500 Respiratory rate 16 /min Nacho Cornell [employer] Work Phone: [facility] 08-10-2023 08:42-0500 SaO2% (BldA) [Mass fraction] 96 % Nacho Cornell [employer] Work Phone: [facility] 08-10-2023 08:42-0500 Systolic blood pressure 104 mm[Hg] Nacho Cornell [employer] Work Phone: [facility] 08-05-2023 15:42-0500 Body temperature 96 [degF] [facility] 08-05-2023 15:42-0500 Diastolic blood pressure 90 mm[Hg] [facility] 08-05-2023 15:42-0500 Heart rate 81 /min [facility] 08-05-2023 15:42-0500 Respiratory rate 16 /min [facility] 08-05-2023 15:42-0500 SaO2% (BldA) [Mass fraction] 99 % [facility] 08-05-2023 15:42-0500 Systolic blood pressure 138 mm[Hg] [facility] 08-05-2023 12:05-0500 Body height 152.4 cm [facility] 08-05-2023 12:05-0500 Body mass index (BMI) [Ratio] 42 kg/m2 [facility] 08-05-2023 12:05-0500 Body weight 97.52 kg [facility] 06-02-2023 10:57-0500 Body weight 96.07 kg Alecia Fouzia [employer] Work Phone: [facility] 06-02-2023 10:57-0500 Diastolic blood pressure 78 mm[Hg] Alecia Fouzia [employer] Work Phone: [facility] 06-02-2023 10:57-0500 Heart rate 86 /min Alecia Fouzia [employer] Work Phone: [facility] 06-02-2023 10:57-0500 Respiratory rate 16 /min Alecia Fouzia [employer]CTOR [employer]ER Work Phone: [facility] 06-02-2023 10:57-0500 SaO2% (BldA) [Mass fraction] 100 % Alecia Fouzia [employer] Work Phone: [facility] 06-02-2023 10:57-0500 Systolic blood pressure 134 mm[Hg] Alecia Fouzia [employer]ER Work Phone: [facility] 04-25-2023 18:11-0500 Body temperature 98.2 [degF] Keyla Athy PA-C Work Phone: [facility] 04-25-2023 18:11-0500 Body weight 96.16 kg Keyla Athy PA-C Work Phone: [facility] 04-25-2023 18:11-0500 Diastolic blood pressure 76 mm[Hg] Keyla Athy PA-C Work Phone: [facility] 04-25-2023 18:11-0500 Heart rate 108 /min Keyla Athy PA-C Work Phone: [facility] 04-25-2023 18:11-0500 Respiratory rate 18 /min Keyla Noah PA-C Work Phone: [facility] 04-25-2023 18:11-0500 SaO2% (BldA) [Mass fraction] 96 % Keylajey Hilly PA-C Work Phone: [facility] 04-25-2023 18:11-0500 Systolic blood pressure 122 mm[Hg] Keylajey Hilly PA-C Work Phone: [facility] 04-06-2023 08:41-0400 Body weight 97.52 kg Nacho Cornell CONDUCTOR YARD.PAD ASSEMBLER Work Phone: [facility] 04-06-2023 08:41-0400 Diastolic blood pressure 75 mm[Hg] Nacho Cornell CONDUCTOR YARD.PAD ASSEMBLER Work Phone: [facility] 04-06-2023 08:41-0400 Heart rate 86 /min Nacho Cornell CONDUCTOR YARD.PAD ASSEMBLER Work Phone: [facility] 04-06-2023 08:41-0400 Respiratory rate 16 /min Nacho Cornell CONDUCTOR YARD.PAD ASSEMBLER Work Phone: [facility] 04-06-2023 08:41-0400 Systolic blood pressure 111 mm[Hg] Nacho Cornell CONDUCTOR YARD.PAD ASSEMBLER Work Phone: [facility] 01-31-2023 10:20-0400 Body weight 95.71 kg Mary Phan MD Work Phone: [facility] 01-31-2023 10:20-0400 Diastolic blood pressure 68 mm[Hg] Mary Phan MD Work Phone: [facility] 01-31-2023 10:20-0400 Systolic blood pressure 110 mm[Hg] Mary Phan MD Work Phone: [facility] 01-19-2023 10:03-0400 Diastolic blood pressure 84 mm[Hg] [facility] 01-19-2023 10:03-0400 Heart rate 78 /min [facility] 01-19-2023 10:03-0400 Respiratory rate 16 /min [facility] 01-19-2023 10:03-0400 SaO2% (BldA) [Mass fraction] 98 % [facility] 01-19-2023 10:03-0400 Systolic blood pressure 123 mm[Hg] [facility] 01-19-2023 08:02-0400 Body height 152.4 cm [facility] 01-19-2023 08:02-0400 Body mass index (BMI) [Ratio] 41 kg/m2 [facility] 01-19-2023 08:02-0400 Body temperature 97.4 [degF] [facility] 01-19-2023 08:02-0400 Body weight 95.34 kg [facility] 12-08-2022 12:06-0400 Body weight 94.35 kg Nacho Cornell CONDUCTOR YARD.PAD ASSEMBLER Work Phone: [facility] 12-08-2022 12:06-0400 Diastolic blood pressure 70 mm[Hg] Nacho Cornell CONDUCTOR YARD.PAD ASSEMBLER Work Phone: [facility] 12-08-2022 12:06-0400 Heart rate 93 /min Nacho Cornell CONDUCTOR YARD.PAD ASSEMBLER Work Phone: [facility] 12-08-2022 12:06-0400 Respiratory rate 16 /min Nacho Cornell CONDUCTOR YARD.PAD ASSEMBLER Work Phone: [facility] 12-08-2022 12:06-0400 SaO2% (BldA) [Mass fraction] 96 % Nacho Cornell CONDUCTOR YARD.PAD ASSEMBLER Work Phone: [facility] 12-08-2022 12:06-0400 Systolic blood pressure 118 mm[Hg] Nacho Cornell CONDUCTOR YARD.PAD ASSEMBLER Work Phone: [facility] 09-16-2022 10:41-0400 Body temperature 98.1 [degF] Dino Evans MD Work Phone: [facility] 09-16-2022 10:41-0400 Body weight 92.99 kg Dino Evans MD Work Phone: [facility] 09-16-2022 10:41-0400 Diastolic blood pressure 68 mm[Hg] Dino Evans MD Work Phone: [facility] 09-16-2022 10:41-0400 Heart rate 125 /min Dino Evans MD Work Phone: [facility] 09-16-2022 10:41-0400 Respiratory rate 18 /min Dino Evans MD Work Phone: [facility] 09-16-2022 10:41-0400 SaO2% (BldA) [Mass fraction] 96 % Dino Evans MD Work Phone: [facility] 09-16-2022 10:41-0400 Systolic blood pressure 110 mm[Hg] Dino Evans MD Work Phone: [facility] 01-24-2022 11:39-0400 Body weight 96.16 kg Nacho Cornell CONDUCTOR YARD.PAD ASSEMBLER Work Phone: [facility] 01-24-2022 11:39-0400 Diastolic blood pressure 70 mm[Hg] Nacho Cornell CONDUCTOR YARD.PAD ASSEMBLER Work Phone: [facility] 01-24-2022 11:39-0400 Heart rate 84 /min Nacho Cornell CONDUCTOR YARD.PAD ASSEMBLER Work Phone: [facility] 01-24-2022 11:39-0400 Respiratory rate 16 /min Ncaho Cornell CONDUCTOR YARD.PAD ASSEMBLER Work Phone: [facility] 01-24-2022 11:39-0400 Systolic blood pressure 134 mm[Hg] Nacho Cornell CONDUCTOR YARD.PAD ASSEMBLER Work Phone: [facility] 12-27-2021 21:13-0400 Diastolic blood pressure 82 mm[Hg] [facility] Work Phone: 12-27-2021 21:13-0400 Heart rate 87 /min [facility] Work Phone: 12-27-2021 21:13-0400 Respiratory rate 16 /min [facility] Work Phone: 12-27-2021 21:13-0400 SaO2% (BldA) [Mass fraction] 95 % [facility] Work Phone: 12-27-2021 21:13-0400 Systolic blood pressure 126 mm[Hg] [facility] Work Phone: 12-27-2021 20:44-0400 Body height 152.4 cm [facility] Work Phone: 12-27-2021 20:44-0400 Body mass index (BMI) [Ratio] 41 kg/m2 [facility] Work Phone: 12-27-2021 20:44-0400 Body temperature 97.5 [degF] [facility] Work Phone: 12-27-2021 20:44-0400 Body weight 95.25 kg [facility] Work Phone: 10-01-2021 12:49-0400 Body temperature 97.81 [degF] Joel Hoover MD Work Phone: [facility] 10-01-2021 12:49-0400 Body weight 94.98 kg Joel Hoover MD Work Phone: [facility] 10-01-2021 12:49-0400 Diastolic blood pressure 80 mm[Hg] Joel Hoover MD Work Phone: [facility] 10-01-2021 12:49-0400 Heart rate 114 /min Joel Hoover MD Work Phone: [facility] 10-01-2021 12:49-0400 Respiratory rate 20 /min Joel Hoover MD Work Phone: [facility] 10-01-2021 12:49-0400 SaO2% (BldA) [Mass fraction] 99 % Joel Hoover MD Work Phone: [facility] 10-01-2021 12:49-0400 Systolic blood pressure 122 mm[Hg] Joel Hoover MD Work Phone: [facility] 08-31-2021 23:16-0400 Diastolic blood pressure 91 mm[Hg] [facility] Work Phone: 08-31-2021 23:16-0400 Heart rate 85 /min [facility] Work Phone: 08-31-2021 23:16-0400 Respiratory rate 16 /min [facility] Work Phone: 08-31-2021 23:16-0400 SaO2% (BldA) [Mass fraction] 96 % [facility] Work Phone: 08-31-2021 23:16-0400 Systolic blood pressure 137 mm[Hg] [facility] Work Phone: 08-31-2021 21:25-0400 Body mass index (BMI) [Ratio] 41.8 kg/m2 [facility] Work Phone: 08-31-2021 21:25-0400 Body temperature 96.4 [degF] [facility] Work Phone: 08-31-2021 21:25-0400 Body weight 97 kg [facility] Work Phone: Encounters Encounter Date Encounter Type Care Provider Facility Start: 02-22-2025 ambulatory [facility] Facility: [facility] Start: 02-03-2025 ambulatory [facility] Facility: [facility] Start: 01-27-2025 End: 01-27-[address] Mendel Heredia MD -[facility] Work Phone: Start: 01-27-2025 End: 01-27-[address] Sophie Huitron MD Work Phone: -[facility] Start: 01-27-[address] Mendel Heredia MD -Physical Therapy Work Phone: Start: 01-22-2025 End: 01-22-[address] Sophie Huitron MD Work Phone: -[facility] Start: 01-22-2025 End: 01-22-2025 Patient encounter procedure Lolis Richardsgar CHANNEL INSTALLER-C -[facility] Work Phone: Start: 01-22-2025 End: 01-22-2025 ambulatory Sophie Huitron Facility:[facility] Start: 01-11-2025 End: 01-11-2025 Emergency department patient visit [facility] Start: 01-02-2025 End: 01-02-2025 Patient encounter procedure Jodie Hills CHANNEL INSTALLER-C -[facility] Work Phone: Start: 01-02-2025 End: 01-02-[address] Sophie Huitron MD Work Phone: -[facility] Start: 01-01-[address] Mendel Heredia MD -Physical Therapy Work Phone: Start: 12-08-2024 End: 12-08-2024 Emergency department patient visit Dr. Sophie Huitron MD Work Phone: -Emergency Department Work Phone: Start: 12-02-[address] Mendel Heredia MD -Physical Therapy Work Phone: Start: 11-26-2024 End: 11-26-[address] Tyrell Mo MD -[facility] Start: 11-26-2024 End: 11-26-[address] Sophie Huitron MD Work Phone: [facility] Work Phone: Start: 11-20-2024 End: 11-20-[address] Efe Moss MD -[facility] Work Phone: Start: 11-20-2024 End: 11-20-[address] Sophie Huitron MD Work Phone: [facility] Work Phone: Start: 11-12-2024 ambulatory [facility] Facility: [facility] Start: 11-12-2024 Non-patient / Non-visit Dr. Geneva strauss MD -[facility] Start: 11-12-2024 End: 11-12-[address] Sophie Huitron MD Work Phone: [facility] Work Phone: Start: 11-12-2024 End: 11-12-2024 Patient encounter procedure Jodie Hills CHANNEL INSTALLER-C -Pulmonary Services/Neurology Work Phone: Start: 11-12-2024 End: 11-12-2024 ambulatory [facility] Facility:[facility] Start: 11-08-2024 End: 11-08-2024 Emergency department patient visit Dr. Alhaji Piper DO -Emergency Department Work Phone: Start: 11-04-2024 End: 12-05-2024 ambulatory Dino Evans MD Work Phone: [facility] Start: 10-11-2024 End: 10-11-[address] Sophie H[facility] MD [facility] Work Phone: Start: 10-11-2024 End: 10-11-2024 [facility] Start: 10-02-2024 End: 10-02-2024 Patient encounter procedure Jodie Hills CHANNEL INSTALLER-C -[facility] Work Phone: Start: 10-02-2024 End: 10-02-2024 [facility] Start: 09-23-2024 End: 09-23-[address] Sophie Huitron MD Work Phone: [facility] Work Phone: Start: 09-23-2024 End: 09-23-[address] Sophie Huitron MD -Outpatient Breast Imaging Work Phone: Start: 09-23-2024 End: 09-23-2024 ambulatory Sophie Huitron Facility:[facility] Start: 09-14-2024 End: 09-14-[address] Sophie Huitron MD Work Phone: [facility] Work Phone: Start: 09-14-2024 End: 09-14-2024 Patient encounter procedure Jodie Hills CHANNEL INSTALLER-C -MRI - [facility] Work Phone: Start: 09-14-2024 End: 09-14-2024 ambulatory Jodie Hills Facility:[facility] Start: 09-12-2024 End: 09-12-2024 ambulatory NACHOEster CORNELL Facility:[facility] Start: 09-12-2024 End: 09-12-2024 Office outpatient visit 15 minutes Nacho Amins CONDUCTOR YARD.PAD ASSEMBLER Work Phone: [facility] [place] Comment on above: Schizoaffective diso rder, bipolar [...] Patient encounter procedure Dr. Efe Moss MD -[facility] Work Phone: Start: 09-10-2024 End: 09-10-2024 ambulatory Sophie Miluis Facility:[facility] Start: 09-02-2024 End: 09-02-2024 Emergency department patient visit Dr. Sophie Huitron MD Work Phone: -Emergency Department Work Phone: Start: 08-13-2024 End: 08-13-[address] Efe Moss MD -[facility] Work Phone: Start: 08-13-2024 End: 08-13-2024 ambulatory Sophie Milynsey Facility:[facility] Start: 07-22-2024 End: 07-22-2024 Emergency department patient visit Dr. Patrick Manrique DO -Emergency Department Work Phone: Start: 06-21-2024 End: 06-21-[address] Efe Pryor DO -[facility] Work Phone: Start: 06-21-2024 End: 06-21-2024 ambulatory [facility] Facility:[facility] Start: 06-15-2024 End: 06-15-2024 Emergency department patient visit [facility] Start: 06-15-2024 End: 06-15-2024 Emergency department patient visit Dr. Senait Laurent DO -Emergency Department Work Phone: Start: 06-12-2024 End: 06-17-2024 ambulatory Dino Evans MD Work Phone: Internal [facility] [place] [id number] Start: 05-31-2024 End: 05-31-2024 Emergency department patient visit Dr. Harvey Lucero MD -Emergency Department Work Phone: Start: 03-28-2024 End: 03-28-2024 Emergency department patient visit [facility] Facility[facility] Start: 02-27-2024 End: 02-27-2024 ambulatory [facility] Start: 02-27-2024 End: 02-27-2024 ambulatory [facility] Start: 11-23-2023 Refill Saima Kyrie CONDUCTOR YARD.OYSTER GRADER Work Phone: [facility] Comment on above: Refill Request Start: 09-25-2023 Refill Saima Kyrie CONDUCTOR YARD.OYSTER GRADER Work Phone: [facility] Comment on above: Refill Request Start: 09-22-2023 End: 09-22-2023 ambulatory [facility] Work Phone: Start: 09-22-2023 End: 09-22-2023 Patient encounter procedure [facility]Outpatient Breast [facility] Work Phone: Start: 08-27-2023 Refill Saima Mittal CONDUCTOR YARD.OYSTER GRADER Work Phone: [facility] [place] Comment on above: Refill Request Start: 08-26-2023 Refill Saima Mittal APRN.OYSTER GRADER Work Phone: [facility] [place] Comment on above: Refill Request Start: 08-15-2023 Telephone encounter Dino roldan MD Work Phone: [facility] [place] Comment on above: Medication Problem Refill Request Start: 08-10-2023 End: 08-10-2023 Office outpatient visit 25 minutes Nacho Kraig FULLER.PAD ASSEMBLER Work Phone: [facility] [place] Comment on above: Hypomagnesemia (Prim mouna Dx); Type 2 diabetes mellitus with diabetic neuropathy, with long-term current use of insulin (HCC); Controlled type 2 diabetes mellitus with diabetic neuropathy, without long-term current use of insulin (HCC); New daily persistent headache Start: 08-05-2023 End: 08-05-2023 Emergency department patient visit [facility] Work Phone: Start: 08-04-2023 ambulatory Dino burrell MD Work Phone: [facility] [place] Comment on above: High Blood Sugar Start: 07-31-2023 Telephone encounter Saima casarez CONDUCTOR YARD.OYSTER GRADER Work Phone: [facility] [place] Comment on above: Results Start: 07-31-2023 End: 07-31-2023 Subsequent hospital visit by physician [employer] [facility] (I-Stat/1.5t) Work Phone: Radiology Comment on above: New daily persistent headache [G44.52] Start: 07-05-2023 ambulatory Dino burrell MD Work Phone: Internal Medicine [facility] Start: 06-02-2023 End: 06-02-2023 Patient encounter procedure Alecia Fragoso APRN.OYSTER GRADER Work Phone: Neurology Comment on above: JAELYN (obstructive sle ep apnea) (Primary Dx); Intolerance of continuous positive airway pressure (CPAP) ventilation; Primary insomnia Start: 05-02-2023 Telephone encounter Dino roldan MD Work Phone: [facility] [place] Comment on above: Insurance Authorizat ion Start: 04-25-2023 End: 04-25-2023 Patient encounter procedure Keyla Kaushik Zamora PA-C Work Phone: [facility] Comment on above: URI, acute (Primary Dx) Start: 04-25-2023 Telephone encounter Nacho grant CONDUCTOR YARD.PAD ASSEMBLER Work Phone: [facility] [place] Comment on above: Results (PSG) Start: 04-10-2023 Refill Dino burrell MD Work Phone: [facility] [place] Comment on above: Refill Request Start: 04-09-2023 Refill Saima Mittal CONDUCTOR YARD.OYSTER GRADER Work Phone: [facility] [place] Comment on above: Refill Request Start: 04-06-2023 End: 04-06-2023 Office outpatient visit 25 minutes Nacho Cornell CONDUCTOR YARD.PAD ASSEMBLER Work Phone: [facility] [place] Comment on above: JAELYN (obstructive sle ep apnea) (Primary Dx); Controlled type 2 diabetes mellitus with diabetic neuropathy, without long-term current use of insulin (HCC); Encounter for immunization Start: 03-31-2023 End: 03-31-2023 ambulatory [facility] Work Phone: Start: 03-31-2023 End: 03-31-2023 Patient encounter procedure [facility]Sleep Lab Work Phone: Start: 03-22-2023 End: 03-22-[address] [facility] Facility:[facility] Start: 03-21-2023 Telephone encounter Dino roldan MD Work Phone: [facility] [place] Comment on above: fax orders Start: 03-07-2023 Refill Dino burrell MD Work Phone: [facility] [place] Comment on above: Refill Request Start: 03-06-2023 Telephone encounter Dino roldan MD Work Phone: [facility] [place] Comment on above: Medication Problem Start: 03-01-2023 Telephone encounter Dino roldan MD Work Phone: [facility] [place] Comment on above: Sensor needed Start: 02-27-2023 ambulatory Dino burrell MD Work Phone: [facility] [place] Comment on above: Low Blood Sugar Start: 02-26-2023 Refill Saima Kyrie CONDUCTOR YARD.OYSTER GRADER Work Phone: [facility] [place] Comment on above: Refill Request Start: 02-23-2023 Refill Saima Kyrie CONDUCTOR YARD.OYSTER GRADER Work Phone: [facility] [place] Comment on above: Refill Request Start: 02-16-2023 ambulatory Dino burrell MD Work Phone: [facility] [place] Comment on above: Low Blood Sugar Start: 02-01-2023 End: 02-01-2023 Refill Dino Evans MD Work Phone: [facility] [place] Comment on above: Refill Request Start: 01-31-2023 End: 01-31-2023 Patient encounter procedure Mary Phan MD Work Phone: OB/Gynecology Comment on above: Endometrial cancer ( HCC) (Primary Dx) Start: 01-19-2023 End: 01-19-2023 Emergency department patient visit [facility] Work Phone: Start: 12-28-2022 End: 12-28-[address] [facility] Facility:[facility] Start: 12-28-2022 End: 12-28-2022 ambulatory Braxton Modi [facility] Work Phone: [facility] Comment on above: Controlled type 2 di abetes mellitus with diabetic neuropathy, without long-term current use of insulin (HCC) (Primary Dx) Start: 12-28-2022 End: 12-28-2022 Telemedicine consultation with patient Braxton Modi [facility] Work Phone: [facility] Start: 12-14-2022 End: 12-14-2022 ambulatory Braxton Modi [facility] Work Phone: [facility] Comment on above: Controlled type 2 di abetes mellitus with diabetic neuropathy, without long-term current use of insulin (HCC) (Primary Dx) Start: 12-14-2022 End: 12-14-2022 Telemedicine consultation with patient Braxton Modi kasey Work Phone: [facility] Start: 12-12-2022 Refill Dino burrell MD Work Phone: [facility] [place] Comment on above: Refill Request Start: 12-08-2022 End: 12-08-2022 Office outpatient visit 25 minutes Nacho Cornell APRN.PAD ASSEMBLER Work Phone: [facility] [place] Comment on above: Type 2 diabetes sonia [...] Dino Evans MD Work Phone: [facility] [place] Comment on above: Type 2 diabetes sonia [...] Dino roldan MD Work Phone: [facility] [place] Comment on above: Medication Request Start: 07-05-2022 Telephone encounter Nacho grant APRN.PAD ASSEMBLER Work Phone: [facility] [place] Comment on above: Results Start: 04-18-2022 Telephone encounter Dino roldan MD Work Phone: [facility] [place] Comment on above: Faxed lab results Start: 02-10-2022 Telephone encounter Leon Bernstein [facility] Work Phone: Family Practice Comment on above: Appointment Start: 02-02-2022 Telephone encounter Paulina Jamie Cornell [facility] Comment on above: NEW PRIMARY CARE PHA RMACY APPT Start: 02-01-2022 Telephone encounter Nacho Xin grant CONDUCTOR YARD.PAD ASSEMBLER Work Phone: [facility] [place] Comment on above: Results Start: 01-24-2022 End: 01-24-2022 Patient encounter procedure Nachoester Cornell CONDUCTOR YARD.PAD ASSEMBLER Work Phone: [facility] [place] Comment on [...] 12-27-2021 End: 12-27-2021 Emergency department patient visit [facility] Start: 12-08-2021 ambulatory Dino ubrrell MD Work Phone: [facility] [place] Start: 12-07-2021 Refill Dino burrell MD Work Phone: [facility] [place] Comment on above: Prescription Refills Start: 10-02-2021 Telephone encounter Keyla gaona PA-C Work Phone: [facility] Comment on above: Results Start: 10-01-2021 End: 10-01-2021 Subsequent hospital visit by physician Jojo [facility] [place] Work Phone: Radiology Comment on above: Cough [R05.9] Start: 10-01-2021 End: 10-01-2021 Patient encounter procedure Joel Hoover MD Work Phone: [facility] Comment on above: Cough (Primary Dx); Asthma with acute exacerbation, unspecified asthma severity, unspecified whether persistent Start: 09-30-2021 Telephone encounter Dino roldan MD Work Phone: [facility] [place] Comment on above: Patient Update Start: 08-31-2021 End: 08-31-2021 [facility] Start: 08-12-2021 Telephone encounter Dino roldan MD Work Phone: [facility] [place] Comment on above: Medication Request Start: 09-01-2020 End: 09-01-2020 Subsequent hospital visit by physician [facility] Work Phone: Radiology Comment on above: Cough [R05] Start: 05-25-2017 Ambulatory Josué Sarkar [facility] Procedures Date Procedure Procedure Detail Performing Clinician Start: 01-22-2025 Plain x-ray of wrist Dr Ciarra Huitron MD Work Phone: Start: 01-22-2025 Plain x-ray of hand Dr. Sophie Huitron MD Work Phone: Start: 12-08-2024 Plain x-ray of elbow Dr Ciarra Huitron MD Work Phone: Start: 12-08-2024 Plain x-ray of hand Dr. Sophie Huitron MD Work Phone: Start: 12-08-2024 Plain X-ray of shoulder Dr. Sophie Huitron MD Work Phone: Start: 11-26-2024 Plain X-ray of shoulder Dr. Sophie Huitron MD Work Phone: Start: 11-08-[address] Sophie Huitron MD Work Phone: Start: 09-23-2024 Screening mammography Janelle Huitron MD Work Phone: Start: 09-14-2024 MRI of cervical spine D mery Huitron MD Work Phone: Start: 09-14-2024 MRI [...] brain stem w/o w/contrast material Saima Mittal CONDUCTOR YARD.OYSTER GRADER Work Phone: Start: 01-19-2023 Plain x-ray of elbow Start: 01-24-2022 Adult depression screening assessment Nacho Cornell CONDUCTOR YARD.PAD ASSEMBLER Work Phone: Start: 10-01-2021 Radiologic exam ches t 2 views Joel Hoover MD Work Phone: Start: 02-16-2021 Antibody screen Comment on above: Order Comment: Speci men Type: BLOOD SPECIMEN Performed By: #### T [id number] ####[facility] BLOOD [facility]ANKIA [id number] [address] [facility] Start: 11-03-2020 Mammography Dino hendricks MD Work Phone: Start: 11-02-2020 Adult depression screening assessment Dino Evans MD Work Phone: Start: 09-01-2020 Radiologic exam ches t 2 views Keyla Zamora PA-C Work Phone: History of appendectomy Hx of appendectom y History of cholecystectomy History of cholecystectomy Plan of Treatment Date Care Activity Detail Author Start: 12-14-2025 HPV TESTING HPV TESTING [facility] Start: 11-03-2025 PAP TESTING PAP TESTING [facility] Start: 12-08-2024 [facility] Start: 12-08-2024 Plain x-ray of elbow Elbow min 3 Views [facility] Start: 12-08-2024 Plain x-ray of hand Hand Min 3 Views [facility] Start: 12-08-2024 Plain X-ray of shoulder Shoulder min 2 Views [facility] Start: 12-08-2024 XR Elbow GE 3 Views [facility] Start: 12-08-2024 XR Hand GE 3 Views [facility] Start: 12-08-2024 XR Shoulder GE 2 Views [facility] Start: 11-26-2024 Patient referral [facility] Work Phone: Start: 11-26-2024 Plain X-ray of shoulder Shoulder min 2 Views [facility] Start: 11-26-2024 XR Shoulder GE 2 Views [facility] Start: 11-20-2024 Patient referral [facility] Work Phone: Start: 11-08-2024 [facility] Start: 11-01-2024 End: 11-01-2024 Patient encounter procedure 11/01/2024 9:00 AM EDT Office Visit [facility] [address] [place] [address] Jany Batista, OD [address] [place] [address] Screening for diabetic retinopathy [Z13.5] Ophthalmology Comment on above: Screening for diabetic retinopathy [Z13. 5] Start: 09-18-2024 End: 09-18-2024 Patient encounter procedure 09/18/2024 1:00 PM EDT Office Visit [facility] [place] [address] [place] [address] Saima Mittal APRN.OYSTER GRADER [address] [place], [place] [id number] physical [facility] [place] Comment on above: physical Start: 09-18-2024 End: 09-18-2024 ambulatory 09/18/2024 8:30 AM EDT Procedure PULM LAB [facility] [address] [place] [address] Wstr, Pulm Lab [facility] [address] [place] [address] Asthma [J45.909] PULM LAB [facility] Comment on above: Asthma [J45.909] Start: 09-12-2024 End: 12-12-2024 CBC W Auto Differential panel - Blood COMPLETE BLOOD COUNT AND DIFFERENTIAL Lab Routine Controlled type 2 diabetes mellitus with diabetic neuropathy, without long-term current use of insulin (HCC) Expected: 09/12/2024, Expires: 12/12/2024 [facility] Comment on above: Expected: 09/12/2024, Expires: Start: 09-12-2024 End: 12-12-2024 Comprehensive metabolic 2000 panel - Serum or Plasma COMPREHENSIVE METABOLIC PANEL Lab Routine Acquired hypothyroidism Controlled type 2 diabetes mellitus with diabetic neuropathy, without long-term current use of insulin (HCC) Expected: 09/12/2024, Expires: 12/12/2024 [facility] Comment on above: Expected: 09/12/2024, Expires: Start: 09-12-2024 End: 12-12-2024 Hemoglobin A1c in Blood HEMOGLOBIN A1C Lab Routine Diabetic neuropathy (HCC) Controlled type 2 diabetes mellitus with diabetic neuropathy, without long-term current use of insulin (HCC) Expected: 09/12/2024, Expires: 12/12/2024 [facility] Work Phone: Comment on above: Expected: 09/12/2024, Expires: Start: 09-12-2024 End: 12-12-2024 Lipid 1996 panel - Serum or Plasma LIPID PANEL, FASTING Lab Routine Diabetic neuropathy (HCC) Controlled type 2 diabetes mellitus with diabetic neuropathy, without long-term current use of insulin (HCC) Expected: 09/12/2024, Expires: 12/12/2024 [facility] Comment on above: Expected: 09/12/2024, Expires: Start: 09-12-2024 End: 12-12-2024 LIPID PANEL, NONFASTING LIPID PANEL, NONFASTING Lab Routine Controlled type 2 diabetes mellitus with diabetic neuropathy, without long-term current use of insulin (HCC) Expected: 09/12/2024, Expires: 12/12/2024 [facility] Comment on above: Expected: 09/12/2024, Expires: Start: 09-12-2024 End: 12-12-2024 Microalbumin/Creatinine [Mass Ratio] in Urine ALBUMIN/CREATININE RATIO, URINE Lab Routine Controlled type 2 diabetes mellitus with diabetic neuropathy, without long-term current use of insulin (HCC) Expected: 09/12/2024, Expires: 12/12/2024 [facility] Comment on above: Expected: 09/12/2024, Expires: Start: 09-12-2024 End: 12-12-2024 TSH W/REFLEX FT4 TSH W/REFLEX FT4 Lab Routine Acquired hypothyroidism Expected: 09/12/2024, Expires: 12/12/2024 [facility] Comment on above: Expected: 09/12/2024, Expires: Start: 09-10-2024 Patient referral [facility] Work Phone: Start: 09-02-2024 [facility] Start: 07-22-2024 [facility] Start: 07-05-2024 Annual PCP Team Chronic Disease Visit Annual PCP Team Chronic Disease Visit [facility] Start: 06-19-2024 Medicare Advantage Annual Wellness Visit Medicare Advantage Annual Wellness Visit [facility] Start: 06-15-2024 [facility] Start: 05-31-2024 [facility] Start: 03-15-2024 Annual PCP Team Chronic Disease Visit Annual PCP Team Chronic Disease Visit [facility] Start: 03-15-2024 Hepatitis B surface antibody level LDL Cholesterol [facility] Start: 03-15-2024 Influenza vaccination Lung Cancer Screening [facility] Comment on above: Postponed from 01/24/2023 (Declined at t his time) Start: 03-15-2024 Screening for malignant neoplasm of lung Lung Cancer Screening [facility] Comment on above: Postponed from 01/24/2023 (Declined at t his time) Start: 02-18-2024 Covid-19 Vaccine (5 - 2024-25 season) Covid-19 Vaccine () [facility] Start: 02-18-2024 Influenza vaccination Influenza Vaccine (#1) [facility] Start: 01-14-2024 Glaucoma screening Dilated Retinal Exam [facility] Start: 01-14-2024 Hepatitis C antibody, confirmatory test DILATED RETINAL EXAM [facility] Start: 01-10-2024 3 comp foot exam completed DIABETIC FOOT EXAM [facility] Start: 01-10-2024 Diabetic foot examination Diabetic Foot Exam [facility] Start: 12-09-2023 3 comp foot exam completed DIABETIC FOOT EXAM [facility] Start: 12-09-2023 COVID-19 VACCINE (4 - Booster for Moderna series) COVID-19 VACCINE (4 - Booster for Moderna series) [facility] Comment on above: Postponed from 10/19/2021 (Declined at t his time) Start: 12-09-2023 COVID-19 VACCINE (5 - Moderna series) COVID-19 VACCINE (5 - Moderna series) [facility] Comment on above: Postponed from 10/19/2021 (Declined at t his time) Start: 12-09-2023 Hepatitis B screening URINE ALBUMIN:CREATININE RATIO [facility] Start: 10-04-2023 Hemoglobin A1c measurement HbA1C [facility] Start: 09-17-2023 ANNUAL PCP TEAM CHRONIC DISEASE VISIT ANNUAL PCP TEAM CHRONIC DISEASE VISIT [facility] Start: 09-13-2023 Hemoglobin A1c measurement HbA1C [facility] Start: 09-13-2023 Hemoglobin A1c/Hemoglobin.total in Blood HbA1C [facility] Start: 08-10-2023 End: 11-09-2023 Hemoglobin A1c in Blood HGB A1C Lab Routine Type 2 diabetes mellitus with diabetic neuropathy, with long-term current use of insulin (HCC) Controlled type 2 diabetes mellitus with diabetic neuropathy, without long-term current use of insulin (HCC) Expected: 08/10/2023, Expires: 11/09/2023 [facility] Work Phone: Comment on above: Expected: 08/10/2023, Expires: Start: 07-04-2023 Hepatitis B surface antibody level LDL CHOLESTEROL [facility] Start: 06-24-2023 ANNUAL PCP TEAM CHRONIC DISEASE VISIT ANNUAL PCP TEAM CHRONIC DISEASE VISIT [facility] Start: 06-19-2023 Behavioral Health Screening Behavioral Health Screening [facility] Start: 06-19-2023 Depression Assessment Depression Assessment [facility] Start: 03-10-2023 Hemoglobin A1c/Hemoglobin.total in Blood HBA1C [facility] Start: 03-01-2023 Shingrix Vaccine (2 of 2) Shingrix Vaccine (2 of 2) [facility] Start: 02-17-2023 Covid-19 Vaccine () Covid-19 Vaccine () [facility] Start: 02-17-2023 Influenza vaccination [facility] Start: 01-24-2023 Adult depression screening assessment DEPRESSION SCREENING [facility] Start: 01-24-2023 COLORECTAL CANCER SCREENING COLORECTAL CANCER SCREENING [facility] Comment on above: Postponed from 2015 (Declined at t his time) Start: 01-24-2023 Hepatitis B surface antibody level LDL CHOLESTEROL [facility] Start: 01-24-2023 Influenza vaccination LUNG CANCER SCREENING [facility] Start: 01-24-2023 Screening for malignant neoplasm of lung Lung Cancer Screening [facility] Start: 01-01-2023 Hemoglobin A1c/Hemoglobin.total in Blood HBA1C [facility] Start: 12-08-2022 End: 02-07-2023 ALBUMIN/CREAT RATIO RND UR [facility] Work Phone: Comment on above: Expected: 12/08/2022, Expires: 3 Start: 12-08-2022 End: 02-07-2023 Hemoglobin A1c in Blood [facility] Work Phone: Comment on above: Expected: 12/08/2022, Expires: 3 Start: 12-08-2022 End: 02-07-2023 Thyrotropin [Units/volume] in Serum or Plasma [facility] Work Phone: Comment on above: Expected: 12/08/2022, Expires: 3 Start: 09-16-2022 End: 11-16-2022 CBC W Auto Differential panel - Blood CBC + DIFF Lab STAT Tachycardia Expected: 09/16/2022, Expires: 11/16/2022 [facility] Work Phone: Comment on above: Expected: 09/16/2022, Expires: Start: 09-16-2022 End: 11-16-2022 Comprehensive metabolic 2000 panel - Serum or Plasma COMP METABOLIC PANEL Lab STAT Type 2 diabetes mellitus with diabetic neuropathy, with long-term current use of insulin (HCC) Tachycardia Expected: 09/16/2022, Expires: 11/16/2022 [facility] Work Phone: Comment on above: Expected: 09/16/2022, Expires: 3 Start: 09-16-2022 End: 11-16-2022 Magnesium [Mass/volume] in Serum or Plasma MAGNESIUM BLD Lab Routine Tachycardia Hypomagnesemia Expected: 09/16/2022, Expires: 11/16/2022 [facility] Work Phone: Comment on above: Expected: 09/16/2022, Expires: 3 Start: 09-16-2022 End: 11-16-2022 Thyrotropin [Units/volume] in Serum or Plasma TSH BLD Lab Routine Tachycardia Expected: 09/16/2022, Expires: 11/16/2022 [facility] Work Phone: Comment on above: Expected: 09/16/2022, Expires: 3 Start: 09-16-2022 End: 11-16-2022 Thyroxine (T4) free [Mass/volume] in Serum or Plasma T4 FREE/FREE THYROX Lab Routine Tachycardia Expected: 09/16/2022, Expires: 11/16/2022 [facility] Work Phone: Comment on above: Expected: 09/16/2022, Expires: Start: 09-16-2022 End: 11-16-2022 Triiodothyronine (T3) Free [Mass/volume] in Serum or Plasma T3 FREE BLD Lab Routine Tachycardia Expected: 09/16/2022, Expires: 11/16/2022 [facility] Work Phone: Comment on above: Expected: 09/16/2022, Expires: 3 Start: 06-23-2022 ANNUAL PCP TEAM CHRONIC DISEASE VISIT ANNUAL PCP TEAM CHRONIC DISEASE VISIT [facility] Start: 06-23-2022 Hepatitis B screening URINE ALBUMIN:CREATININE RATIO [facility] Start: 06-23-2022 Hepatitis B surface antibody level LDL CHOLESTEROL [facility] Start: 06-20-2022 SHINGRIX VACCINE (1 of 2) SHINGRIX VACCINE (1 of 2) [facility] Comment on above: Postponed from 2020 (Insurance Cov erage) Start: 05-06-2022 End: 07-06-2022 Hemoglobin A1c in Blood HGB A1C Lab Routine Type 2 diabetes mellitus with hyperglycemia, with long-term current use of insulin (HCC) Expected: 05/06/2022 (Approximate), Expires: 07/06/2022 [facility] Work Phone: Comment on above: Expected: 05/06/2022 (Approximate), Expi res: 07/06/2022 Start: 04-26-2022 Hemoglobin A1c/Hemoglobin.total in Blood HBA1C [facility] Start: 02-17-2022 Influenza vaccination INFLUENZA (#1) [facility] Start: 01-24-2022 End: 03-26-2022 25-hydroxyvitamin D3 [Mass/volume] in Serum or Plasma [facility] Work Phone: Comment on above: Expected: 01/24/2022, Expires: 2 Start: 01-24-2022 End: 03-26-2022 CBC W Auto Differential panel - Blood [facility] Work Phone: Comment on above: Expected: 01/24/2022, Expires: 2 Start: 01-24-2022 End: 03-26-2022 Comprehensive metabolic 2000 panel - Serum or Plasma [facility] Work Phone: Comment on above: Expected: 01/24/2022, Expires: 2 Start: 01-24-2022 End: 03-26-2022 Hemoglobin A1c in Blood [facility] Work Phone: Comment on above: Expected: 01/24/2022, Expires: 2 Start: 01-24-2022 End: 03-26-2022 Lipid 1996 panel - Serum or Plasma [facility] Work Phone: Comment on above: Expected: 01/24/2022, Expires: 2 Start: 01-24-2022 End: 03-26-2022 Thyrotropin [Units/volume] in Serum or Plasma [facility] Work Phone: Comment on above: Expected: 01/24/2022, Expires: 2 Start: 01-24-2022 Urine microalbumin profile DTAP,TDAP,TD (1 - Tdap) [facility] Comment on above: Postponed from 1989 (Insurance Cov erage) Start: 12-24-2021 COVID-19 VACCINE (4 - Booster for Moderna series) COVID-19 VACCINE (4 - Booster for Moderna series) [facility] Start: 11-03-2021 Mammography [facility] Start: 11-03-2021 Screening for malignant neoplasm of breast Mammogram Screening [facility] Start: 11-02-2021 3 comp foot exam completed DIABETIC FOOT EXAM [facility] Start: 11-02-2021 Adult depression screening assessment DEPRESSION SCREENING [facility] Start: 10-19-2021 COVID-19 VACCINE (4 - Booster for Moderna series) COVID-19 VACCINE (4 - Booster for Moderna series) [facility] Start: 10-18-2021 SHINGRIX VACCINE (1 of 2) SHINGRIX VACCINE (1 of 2) [facility] Comment on above: Postponed from 2020 (Insurance Cov erage) Start: 10-18-2021 Urine microalbumin profile DTAP,TDAP,TD (1 - Tdap) [facility] Comment on above: Postponed from 1989 (Insurance Cov erage) Start: 10-01-2021 End: 10-15-2021 SARS-CoV-2 (COVID-19) RNA [Presence] in Respiratory specimen by HARVEY with probe detection [facility] Work Phone: Comment on above: Expected: 10/01/2021, Expires: 2 Start: 09-21-2021 Hemoglobin A1c/Hemoglobin.total in Blood HBA1C [facility] Start: 09-17-2021 Hepatitis C antibody, confirmatory test DILATED RETINAL EXAM [facility] Start: 06-19-2021 DEPRESSION ASSESSMENT DEPRESSION ASSESSMENT [facility] Start: 04-06-2021 COVID-19 VACCINE (3 - Booster for Moderna series) COVID-19 VACCINE (3 - Booster for Moderna series) [facility] Start: 2020 Influenza vaccination LUNG CANCER SCREENING [facility] Start: 2020 SHINGRIX VACCINE (1 of 2) SHINGRIX VACCINE (1 of 2) [facility] Start: 2015 COLOGUARD (FIT-DNA) COLOGUARD (FIT-DNA) [facility] Start: 2015 Colonoscopy COLONOSCOPY [facility] Start: 2015 COLORECTAL CANCER SCREENING COLORECTAL CANCER SCREENING [facility] Start: [address] COLONOGRAPHY [facility] Start: 2015 FECAL OCCULT BLOOD FECAL OCCULT BLOOD [facility] Start: 2015 Screening for malignant neoplasm of colon [facility] Start: 2015 SIGMOIDOSCOPY SIGMOIDOSCOPY [facility] Start: 02-12-2013 PNEUMOCOCCAL (2 - PCV) PNEUMOCOCCAL (2 - PCV) [facility] Start: 1989 HEPATITIS B (1 of 3 - Risk 3-dose series) HEPATITIS B (1 of 3 - Risk 3-dose series) [facility] Start: 1989 Hepatitis B Vaccine (1 of 3 - 19+ 3-dose series) Hepatitis B Vaccine (1 of 3 - 19+ 3-dose series) [facility] Start: 1989 SHINGRIX VACCINE (1 of 2) SHINGRIX VACCINE (1 of 2) [facility] Start: 1989 Urine microalbumin profile [facility] Start: 1988 Anxiety Screening Anxiety Screening [facility] Start: 1988 Depression Screening Depression Screening [facility] Start: 1988 SPIROMETRY SPIROMETRY [facility] Start: 1970 HEPATITIS B (1 of 3 - 3-dose series) HEPATITIS B (1 of 3 - 3-dose series) [facility] Start: 1970 Hepatitis B Vaccine (1 of 3 - 3-dose series) Hepatitis B Vaccine (1 of 3 - 3-dose series) [facility] End: 07-12-2025 DBT Breast - bilateral screening [facility]ARK[facility] SCREENING [facility] Radiology Routine Encounter for screening mammogram for breast cancer 1 Occurrences starting 06/12/2024 until 07/12/2025 [facility] Work Phone: Comment on above: 1 Occurrences starting 06/12/2024 until 07/12/2025 End: 09-17-2023 ECG COMPLETE ECG COMPLETE ECG Routine Tachycardia 1 Occurrences starting 09/16/2022 until 09/17/2023 [facility] Work Phone: Comment on above: 1 Occurrences starting 09/16/2022 until 09/17/2023 Hepb vaccine adult 3 dose schedule for im use HEPATITIS B VACCINE, ADULT AGE 20+, IM Immunization/Injection Routine Encounter for immunization 1 Occurrences starting 01/24/2022 [facility] Work Phone: Comment on above: 1 Occurrences starting 01/24/2022 Hzv zoster vacc recombinant adjuvanted im njx ZOSTER VACCINE, RECOMBINANT (SHINGRIX) Immunization/Injection Routine Encounter for immunization 1 Occurrences starting 12/08/2022 [facility] Work Phone: Comment on above: 1 Occurrences starting 12/08/2022 End: 08-03-2024 SARKIS SCREENING [facility]ARKIS SCREENING Radiology Routine Encounter for screening mammogram for breast cancer 1 Occurrences starting 07/05/2023 until 08/03/2024 [facility] Work Phone: Comment on above: 1 Occurrences starting 07/05/2023 until 08/03/2024 MR Brain WO contrast [facility] MR Cervical spine [facility] MR Lower Extremity Joint [facility] Patient Education [facility] Work Phone: Patient referral [facility] Work Phone: PFIZER-BIONTECH COVI D-19 VACCINE ( SEASON) AGE 12+ YR PFIZER-BIONTECH COVID-19 VACCINE ( SEASON) AGE 12+ YR Immunization/Injection Routine Encounter for immunization 1 Occurrences starting 04/06/2023 [facility] Work Phone: Comment on above: 1 Occurrences starting 04/06/2023 PFIZER-BIONTECH COVI D-19 VACCINE, AGE 12+ YR ([place]) PFIZER-BION[employer]CH COVID-19 VACCINE, AGE 12+ YR ([place] TOP) Immunization/Injection Routine Encounter for immunization Ordered: 01/24/2022 [facility] Work Phone: Comment on above: Ordered: 01/24/2022 End: 01-07-2023 Screening mammography bi 2-view breast inc cad [facility] SCREENING Radiology Routine Encounter for screening mammogram for breast cancer 1 Occurrences starting 12/08/2021 until 01/07/2023 [facility] Work Phone: Comment on above: 1 Occurrences starting 12/08/2021 until 01/07/2023 End: 02-23-2023 SPIROMETRY - BASELINE AND POST DILATOR SPIROMETRY - BASELINE AND POST DILATOR PFT Routine Asthma 1 Occurrences starting 01/24/2022 until 02/23/2023 [facility] Work Phone: Comment on above: 1 Occurrences starting 01/24/2022 until 02/23/2023 End: 10-12-2025 SPIROMETRY - BASELINE AND POST DILATOR SPIROMETRY - BASELINE AND POST DILATOR PFT Routine Asthma Tobacco use disorder 1 Occurrences starting 09/12/2024 until 10/12/2025 [facility] Comment on above: 1 Occurrences starting 09/12/2024 until 10/12/2025 Tdap vaccine 7 yrs/> im TDAP VAC CINE, AGE 7+ YR (ADACEL, BOOSTRIX) Immunization/Injection Routine Encounter for immunization 1 Occurrences starting 12/08/2022 [facility] Work Phone: Comment on above: 1 Occurrences starting 12/08/2022 [facility] Immunizations Immunization Date Immunization Notes Care Provider Kim rashid 04-11-2024 influenza, injectabl e, quadrivalent, preservative free Dino Evans MD Work Phone: [facility] 04-06-2023 zoster vaccine recombinant Nacho Cornell CONDUCTOR YARD.PAD ASSEMBLER Work Phone: [facility] Work Phone: 03-15-2023 influenza, injectabl e, quadrivalent, contains preservative Dino Evans MD Work Phone: [facility] 03-15-2023 influenza, injectabl e, quadrivalent, preservative free Dr. Sophie Huitron MD Work Phone: [facility] 03-15-2023 influenza virus vaccine, unspecified formulation [facility] Work Phone: [facility] 01-04-2023 zoster vaccine recombinant Dino Evans MD Work Phone: [facility] 06-24-2022 influenza, injectabl e, quadrivalent, contains preservative Nacho Cornell CONDUCTOR YARD.PAD ASSEMBLER Work Phone: [facility] 06-24-2022 influenza, injectabl e, quadrivalent, preservative free Dr. Sophie Huitron MD Work Phone: [facility] 06-24-2022 influenza virus vaccine, unspecified formulation Saima Mittal CONDUCTOR YARD.OYSTER GRADER Work Phone: [facility] 01-24-2022 pneumococcal (PCV20) vaccine, 20 valent (PREVNAR 20) Nacho Cornell CONDUCTOR YARD.PAD ASSEMBLER Work Phone: [facility] Work Phone: 01-24-2022 pneumococcal Conjuga te, unspecified formulation Nacho Cornell CONDUCTOR YARD.PAD ASSEMBLER Work Phone: [facility] Work Phone: 08-24-2021 Covid (Pfizer) Dr. Sophie smith MD Work Phone: [facility] 03-23-2021 influenza, injectabl e, quadrivalent, preservative free Dino Evans MD Work Phone: [facility] 11-04-2020 COVID-19 vaccine, fu ll dose (MODERNA) Dino Evans MD Work Phone: [facility] 10-01-2020 COVID-19 vaccine, fu ll dose (MODERNA) Dino Evans MD Work Phone: [facility] Work Phone: 03-12-2020 Influenza, injectabl e, Madin Fenton Canine Kidney, quadrivalent with preservative Dino Evans MD Work Phone: [facility] 02-22-2019 influenza, injectabl e, quadrivalent, preservative free Dino Evans MD Work Phone: [facility] 03-15-2018 influenza, injectabl e, quadrivalent, preservative free [facility] 03-15-2018 influenza, seasonal, injectable Dino Evans MD Work Phone: [facility] 03-29-2017 influenza, injectabl e, quadrivalent, contains preservative Dino Evans MD Work Phone: [facility] 02-20-2015 influenza, seasonal, injectable Dino Evans MD Work Phone: [facility] 06-17-2014 influenza, seasonal, injectable Dino Evans MD Work Phone: [facility] 02-13-2012 pneumococcal polysaccharide vaccine, 23 valent Dino Evans MD Work Phone: [facility] Work Phone: NEGATED: Highlighted row has not occurred!01-24-2022 COVID-19 vaccine, age 12+ yr ([employer] - [place]) Nacho Cornell APRN.PAD ASSEMBLER Work Phone: [facility] Work Phone: Comment on above: Deferred: Postponed Payers Date Payer Category Payer Self-pay 2021 Unknown [id number] 2021 Unknown [id number] 2014 Medicaid [id number] 2014 Medicare [id number] 2014 Medicare [employer] ARE [employer] MEDICARE [id number] 2014-Present [phone] [address] [place] [address] Medicare [id number] 2014 Medicare (Managed Care) [facility] [id number] 2014 Unknown [id number] 1970 Unknown [id number] 2.16840.1.322612.3.579.2. 651 1970 Unknown [id number] .16840.1.399237.3.579.2. 651 Unknown Unknown [id number] 2.16.840.1.277379.3.579.2. 462 Unknown [id number] 2.16.840.1.527668.3.579.2. 462 Unknown [id number] 2.840.1.691697.3.579.2. 462 Unknown [id number] 2.16.840.1.273623.3.579.2. 462 Unknown [id number] 2.16.840.1.868354.3.579.2. 462 Unknown [id number] 2.16.840.1.576144.3.579.2. 462 Unknown [id number] 2.16.840.1.918233.3.579.2. 462 Unknown [id number] 2.16840.1.671790.3.579.2. 462 Unknown [id number] 2.16.840.1.378381.3.579.2. 462 Unknown [id number] 2.16840.1.620233.3.579.2. 462 Unknown [id number] 2.840.1.462337.3.579.2. 462 Unknown [id number] 2.840.1.788780.3.579.2. 462 Unknown [id number] 2.16840.1.958547.3.579.2. 462 Unknown [id number] 2.16840.1.821141.3.579.2. 462 Unknown [id number] 2.16.840.1.491634.3.579.2. 462 Unknown [id number] 2.16840.1.835250.3.579.2. 462 Unknown [id number] 2.16840.1.040343.3.579.2. 462 Unknown [id number] 2.16.840.1.136505.3.579.2. 462 Unknown [id number] 2.16.840.1.149615.3.579.2. 462 Unknown [id number] 2.16.840.1.305905.3.579.2. 462 Unknown [id number] 2.16.840.1.066882.3.579.2. 462 Unknown [id number] 2.16.840.1.204122.3.579.2. 462 Unknown [id number] 2.16.840.1.742486.3.579.2. 462 Unknown [id number] 2.16.840.1.352173.3.579.2. 462 Unknown [id number] 2.16.840.1.330381.3.579.2. 462 Unknown [id number] 2.16.840.1.560932.3.579.2. 462 Unknown [id number] 2.16.840.1.739948.3.579.2. 462 Social History Date Type Detail Facility Start: 01-24-2022 End: 12-08-2024 Tobacco smoking status NHIS Smokes tobacco daily [facility] Work Phone: Start: 04-14-2021 End: 09-12-2024 Alcohol intake Current drinker of alcohol (finding) [facility] [facility] Start: 11-03-2020 History SDOH Alcohol Comment occasionally [facility] Start: 03-05-2021 End: 01-24-2022 Tobacco Comment 1 ppd x 34 years [facility] Start: 1970 Sex Assigned At Not on file C [facility] Start: 12-27-2021 End: 08-05-2023 Tobacco smoking status [facility] Unknown if ever smoked [facility] Start: 01-05-2020 None [facility] Start: 01-05-2020 With Family [facility] Start: 08-27-2020 Cigarettes [facility] Start: 1970 Sex Assigned At Female W [facility] History of tobacco use Cigarette Smoker C [facility] Work Phone: Start: 01-24-2022 End: 12-14-2022 Cigarettes smoked current (pack per day) - Reported 1 [facility] Work Phone: Start: 01-24-2022 End: 09-12-2024 Tobacco use and exposure Smokeless tobacco non-user [facility] Work Phone: Start: 08-02-2020 End: 01-24-2022 Exposure to SARS-CoV-2 (event) Not sure [facility] Work Phone: Start: 09-16-2022 End: 12-14-2022 Tobacco use panel [facility] Work Phone: Adult Depression Screening Assessment 0 [facility] Work Phone: Start: 09-01-2020 Alcoholic beverage intake Current non-drinker of alcohol (finding) [facility] Start: 09-02-2024 End: 09-26-2024 Sex Female (finding) [facility] Medical Equipment Procedure Code Equipment Code Equipment Original Text Equipment Identifier Dates [id number], [id number], [id number], [id number], [id number], [id number] Start: 07-05-2018 End: 03-01-2023 Comment on above: [...] 03/09/2021 4:04 PM Shelly Dowell, GERALDINE No [facility] 03-09-2021 Are you blind, or do you have serious difficulty seeing, even when wearing glasses No 03/09/2021 4:04 PM Shelly Dowell, GERALDINE No [facility] 03-09-2021 Do you have serious difficulty walking or climbing stairs No 03/09/2021 4:04 PM Shelly Dowell, RN No [facility] 03-09-2021 Do you have difficul ty dressing or bathing No 03/09/2021 4:04 PM Shelly Dowell, GERALDINE No [facility] 03-09-2021 Because of a physica l, mental, or emotional condition, do you have difficulty doing errands alone such as visiting a physician's office or shopping No 03/09/2021 4:04 PM EDT Shelly Hankins, RN No [facility] Mental Status Date Assessment Result Facility 09-02-2024 Cognitive function Level Of Cons ciousness Awake;Alert;Appropriate;Fol lows Commands [facility] Work Phone: 08-05-2023 Cognitive function Level Of Cons ciousness Awake;Alert;Appropriate [facility] Work Phone: 08-31-2021 Cognitive function Level Of Cons ciousness Awake;Alert;Appropriate;Fol lows Commands [facility] Work Phone: 03-09-2021 Because of a physica l, mental, or emotional condition, do you have serious difficulty concentrating, remembering, or making decisions No 03/09/2021 4:04 PM EDT Shelly Hankins, GERALDINE No [facility] Clinical Notes 01-23-2019 to 01-23-2025 Note Date & Type Note Facility 01-23-2025 Radiology Diagnostic study note [facility] [address], [place] [id number] Hand Min 3 Views MR#: [id number] Acct: [id number] Name: JODIE CHILEL Rep #: [id number] : 1970 F 54 From: Paul Otero MD PCP: Dr. Sophie Huitron MD Status: REG CLI Study:Hand Min 3 Views Date of Exam: 12/11 Exam# [id number] Ordering Dr: Ra jimenez Sunshine PROCEDURE: HAND MIN 3 VIEWS 01/22/2025 REASON FOR EXAM: PAIN TECHNIQUE: HAND MIN 3 VIEWS COMPARISON: Radiographs on 12/08/2024. FINDINGS: Unchanged mild degenerative joint disease, more prominent in the 1st carpometacarpal joint. Mild osteopenia of the visualized bones. Degenerative joint disease. No fracture or dislocation is seen. No lytic or blastic bone lesion is noted. RAD/Hand Min 3 Views IMPRESSION: No evidence for acute abnormality. Reading Location: [place] CC: REAGAN Sunshine; Dr. Sophie Huitron MD ~ Tobacco Stemmer Machine: Signed [facility] 01-23-2025 Radiology Diagnostic study note [facility] [address] [place] [address] Wrist min 3 Views MR#: [id number] Acct: [id number] Name: JODIE CHILEL Rep #: [id number] : 1970 F 54 From: Camille Yanez MD PCP: Dr. Sophie Huitron MD Status: REG CLI Study:Wrist min 3 Views Date of Exam: Exam# [id number] Ordering Dr: Ra jimenez Sunshine PROCEDURE: WRIST MIN 3 VIEWS 01/22/2025 REASON FOR EXAM: PAIN TECHNIQUE: WRIST MIN 3 VIEWS COMPARISON: 06/21/2024 FINDINGS: No acute bone or soft tissue pathology. No significant wrist osteoarthritis. 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 Reading Location: [place] [address] CC: REAGAN Sunshine; Dr. Sophie Huitron MD ~ Tobacco Stemmer Machine: Signed [facility] 12-08-2024 Discharge summary [facility] 12-08-2024 Discharge summary Note Date/Time December 08, 2024 7:32pm [facility] Medical Records Department [address] [place] [address] Emergency Department Summary 12/08/24 MR#: [id number] Acct: [id number] Name: JODIE CHILEL Rep #:[id number] : 1970 54 From: Mathew Santiago MD PCP: Dr. Sophie Huitron MD Status:REG ER Location: ED HPI History of Present Illness Chief Complaint: Fall Detail of Chief Complaint: Manner Aquilla fall forward injuring her right and left knee, right should Informant: patient Onset/Context/Timing Onset: Today and Hours Mechanism/Context: Blunt Injury and Fall Location of pain/injuries: Right shoulder, Right elbow and Right hand Current Severity: Mild Maximum Severity: Moderate Worsened by: Attempt to move right upper extremity Relieved by: Nothing Associated Symptoms Associated Symptoms: Positive for Loss of function (History of frozen right shoulder.); Negative for Parasthesias, Weakness, Inability to ambulate, Loss of consciousness or Amnesia Narrative Narrative: Patient is a 54-year-old woman. She had mechanical fall. She injured her rightshoulder, elbow and hand. She also has abrasion with pain to her right and leftknee. She denies head trauma. She is not amnestic. She denies neck pain. Shedenies paresthesia, anesthesia or motor weakness of upper or lower extremity. She is on no anticoagulant. She denies cardiac or respiratory symptoms. She denies GI symptoms typically black-maroon stool. She denies trouble with speechor swallowing. Prior similar symptoms: Yes Recent Illness/Hospitalization: No PFSH [facility] Medical History Adhesive bursitis of right shoulder History of [...] obese Hypothyroidism Bipolar disorder Asthma Home Medications ?Medication ?Instructions ?Recorded ?Last Taken ?Type atorvastatin 10 mg tablet 10 mg PO DAILY cholesterol l owering 02/27/16 09/04/18 11:00 History levothyroxine 25 mcg tablet 25 mcg PO DAILY thyroid 01/28/21 08:00 History metformin 1,000 mg tablet 1,000 mg PO BID blood sugar 03/23/18 09/04/18 22:00 History insulin glargine 100 unit/mL (3 18 unit SQ BREAKFAST 1 07/10/18 Unknown History mL) subcutaneous pen alpha lipoic acid 600 mg capsule 600 mg PO DAILY 01/21 Unknown History ipratropium bromide 17 1 inh inhalation DAILY 01/21 Unknown History mcg/actuation HFA aerosol inhaler (Atrovent HFA) trazodone 300 mg tablet 300 mg PO QHS 01/21/21 Unkno wn History pregabalin 150 mg capsule 150 mg PO BID 01/03/24 Unkno wn History topiramate 50 mg tablet 50 mg PO Q12H 01/03/24 Unkno wn History trospium 20 mg tablet 20 mg PO QHS 01/03/24 Unknow n History lidocaine 4 % topical patch 1 patch topical QDAY PRN p ain #30 08/13/24 Unknown Rx (Salonpas (lidocaine)) ea L.acidophil,salivari-Bifido 1 cap PO Q24H 11/08/24 Unk nown History bifidum-Strep thermoph 175 mg capsule cyanocobalamin (vitamin B-12) 1,000 mcg PO DAILY 11/08 Unknown History 1,000 mcg tablet docusate sodium 100 mg capsule 100 mg PO BID PRN 11/08 Unknown History hydrocodone-acetaminophen 5-325mg 1 tab PO TID PRN PRN pain 11/08/24 Unknown History 5mg-325mg magnesium oxide 500 mg PO DAILY 11/08/24 Unk nown History semaglutide 0.25 mg or 0.5 mg (2 0.25 mg subcut QWEEK 11/20/24 Unknown History mg/3 mL) subcutaneous pen injector (Ozempic) Allergy/AdvReac Type Severity Reaction Status Date / Time latex Allergy Hives Verified 11/26/24 09:32 hydromorphone (From Dilaudid) AdvReac Vomiting Verified 11/26/24 09:32 Family History Mother , 58 Heart disease [...] Constitutional Constitutional ED: Denies chills or fever(s) Eyes Eyes: Denies blurry vision or change in vision ENT ENT ED: Denies ear pain, rhinorrhea or sore throat Cardiovascular Cardiovascular: Denies chest pain or palpitations Respiratory/Chest Respiratory/Chest: Denies cough, dyspnea or dyspnea on exertion Gastrointestinal Gastrointestinal: Denies nausea or vomiting Musculoskeletal Musculoskeletal: Reports other Details: Abrasion and pain right and left knee, right hand, right elbow and exacerbation of right shoulder pain ; Denies arthralgias, back pain or myalgias Integumentary Reports Abrasions Neurologic Neurologic: Denies headache(s), paresthesias or weakness Hematologic/Lymphatic Hematologic/Lymphatic: Denies easy bleeding or easy bruising EXAM Physical Exam Const Vital Signs: 12/08/24 18:19 12/08/24 18:22 Temperature 98.5 F Temperature Source Oral Pulse Rate 103 H Respiratory Rate 16 Respiratory Effort Normal Non-Labored Respiratory Depth Normal Respiratory Pattern Normal Blood Pressure 100/78 Blood Pressure Mean 85 Pulse Ox 96 Oxygen Delivery Method Room Air Positive well nourished and well developed Constitutional Narrative: BMI is 40.2. Patient's vitals are remarkable for tachycardia. General Appearance ED: well developed HEENT HEENT Narrative: No clinical findings of basilar skull fracture. atraumatic; Negative for tenderness Nose: Negative for septum abnormal Eyes PERRL and EOMs intact bilaterally General Eye ED: Yes other Other Details: No subconjunctival hemorrhage. Neck full ROM Resp normal respiratory effort and clear to auscultation bilaterally Cardio regular rhythm Rate: regular rate GI GI Narrative: Abdomen soft nontender. Extremity Negative for normal to inspection or full ROM Extremity Narrative: Patient has pain with palpation of the proximal humerus. She has very limited range of motion due to frozen shoulder. She has pain with patient over the lateral epicondyle and radial head. Supination pronation causes her pain both in the shoulder and elbow. There is no pain ovation of the olecranon process ormedial epicondyle. There is no pain the patient of the distal radius or ulna. There is pain palpation over the MCP joint of the right little finger. There isan abrasion noted and contusion. Median, radial and ulnar function intact. Patient is able to extend and flex at the right and left knee 180 degrees of extension and flex to 90 degrees. There is no lax with varus valgus tress testing. There is no joint line tenderness. There is discomfort with palpationover the right and left patella. This area is bruised and has abrasions. Patella is not ballotable. There is no effusion. Negative Bev's test. Negative modified Chino's test. DP pulses palpable. Neuro oriented x3, CN's II-XII intact bilaterally and moves all extremities [place]beron Coma Scale: document GCS findings Spontaneous Obeys Commands Oriented 15 Sensorium / Orientation: alert Plantar Reflex: Downgoing: bilateral Psych mental status grossly normal and thought process normal Skin no rashes or lesions noted and No no wounds Trauma: abrasion MDM MDM MDM Narrative Medical decision making narrative: In my opinion patient has contusion abrasion to the knees x-rays were not obtained. Because of the swelling and tenderness over the fifth MCP joint x-rayof the hand was obtained. Because of the pain over the lateral epicondyle and radial head x-ray of the elbow was obtained. X-ray of the shoulder was obtainedbecause of pain ovation of the proximal humerus. These were obtained to determine if patient has contusion versus fracture. Patient was medicated with oral hydrocodone. Radiography Chest X-Ray - ED: Read by ED Physician (Three-view x-ray of the right shoulder, elbow and hand were independently viewed interpreted by me at 1924 as negative. There is no fracture, subluxation dislocation. No foreign body noted. With respect to the elbow x-ray there is no anterior posterior fat pad noted either.) Treatment and Re-Evaluation Narrative: Patient was informed of her results. He was instructed ice 6-8 times a day. Discharge Plan Triage Chief Complaint: Fall ED Provider: Mathew Santiago Dx/Rx/DC Orders Clinical Impression: Contusion of right shoulder, initial encounter, Diabetes, Adhesive bursitis of right shoulder, Contusion of right elbow, initial encounter, Contusion of right hand including fingers, Contusion of right knee, initial encounter, Contusion ofleft knee, initial encounter, Abrasion, multiple sites, Injury due to fall Instructions: ED Abrasion, ED Contusion, Lower Extremity, ED Contusion, Upper Extremity Prescriptions: No Action lidocaine [Salonpas (lidocaine)] 4 % adhesive patch,medicated 1 patch topical QDAY PRN (Reason: pain) Qty: 30 2RF Ozempic 0.25 mg or 0.5 mg (2 mg/3 mL) pen injector 0.25 mg subcut QWEEK Patient Comments: INJECT 0.25 MG SUBCUTANEOUSLY WEEKLY FOR 30 DAYS THEN 0.5MG WEEKLY atorvastatin 10 MG tablet 10 mg PO DAILY levothyroxine 25 MCG tablet 25 mcg PO DAILY metformin 1,000 MG tablet 1,000 mg PO BID insulin glargine 100 UNIT/ML insulin pen 18 unit SQ BREAKFAST trazodone 300 mg tablet 300 mg PO QHS Patient Comments: TAKE 1 TABLET BY MOUTH EVERY DAY AT BEDTIME NEEDED Atrovent HFA 17 mcg/actuation Hfa Aerosol Inhaler 1 inh INHALATION DAILY alpha lipoic acid 600 mg capsule 600 mg PO DAILY Patient Comments: TAKE 1 CAPSULE BY MOUTH EVERY DAY topiramate 50 mg tablet 50 mg PO Q12H trospium 20 mg tablet 20 mg PO QHS pregabalin 150 mg capsule 150 mg PO BID Patient Comments: pt states she no longer takes this med cyanocobalamin (vitamin B-12) 1,000 mcg tablet 1,000 mcg PO DAILY hydrocodone-acetaminophen 5-325 mg tablet 1 tab PO TID PRN PRN (Reason: pain) L.acidoph,saliva-B.bif-S.therm 175 mg capsule 1 cap PO Q24H magnesium oxide 500 mg magnesium tablet 500 mg PO DAILY docusate sodium 100 mg capsule 100 mg PO BID PRN Primary Care Provider: Sophie Huitron Referrals: Sophie Huitron MD [Primary Care Provider] - Activity Restrictions/Additional Instructions: 1. Apply ice to areas of discomfort 6-8 times a day 2. You will feel worse over the next 24 hours and hurt in more places. 3. Follow-up with your doctor as needed Print Language: Cymro Disposition Disposition: Home, Self Care What to do if you have Problems For any increased pain, shortness of breath, bleeding, nausea or vomiting, chestpain, or any unexpected problems, contact your Primary Care Provider. Call [facility] ([phone]) or report to the closest Emergency Room. Call 911 if necessary. 12/08/241931 <Electronically signed by Mathew Santiago MD> Cosigner Signature (if applicable): CC: Dr. Sophie Huitron MD ~ Signed [facility] Work Phone: 1(861) 892-852606-22-2025 Hospital Discharge instructions Additional Instructions 1. Apply ice to areas of discomfort 6-8 times a day 2. You will feel worse over the next 24 hours and hurt in more places. 3. [facility]: 1(811) 225-744105-27-2025 Procedure note [facility] Pulmonary Services/Neurology [address] [place] [address] MR#: [id number] Acct: [id number] Name: JODIE CHILEL Rep #:[id number] : 1970 54 From: Geneva Meneses MD Referring Dr: Jodie Hills CHANNEL INSTALLER-C atus: REG CLI Location: PSN Date: 11/12/24 Sex: F C [...] the extent of needle examination of the musclesthis region. Multi Select Codes Neurology Neurology Interp Codes: 45828-93 Musc test done w/n test comp (interp) (2) and 28677-62 Nrv cndj test 13/> studies (interp) 11/12/24 1043 MD> Date _ Geneva Meneses MD CC: REAGAN [place]; Dr. Geneva Meneses MD; Dr. Sophie Huitron MD ~ Date Dictated: 11/12/24 1017 Date Transcribed: 11/12/241016 Tobacco Stemmer Machine: Signed [facility]05-19-2025 NoteHNO ID: [id number] Author: ?, ?, ? Service: ? Author Type: ? Type: Progress Notes Filed: 12/05/2024 03:03 Note Text: Called to get pt scheduled for overdue physical and diabetes care. LVM.[facility]05-19-2025 History of Present illness Narrative* Bonnie Velázquez - 11/04/2024 9:18 AM EDT Called to get pt scheduled for overdue physical and diabetes care. LVM. [facility] NotePatient Outreach (FAMPWS) JDOIE CHILEL ([id number]) 1970 F Date Time Provider Department 11/04/24 DINO EVANS FAMPWS During your visit today, we recorded the [...] 18 Units subcutaneously every morning. - Insulin [place], Disposable, (BD ULTRA-FINE VIK PEN NEEDLE) 32 [...] insulin (HCC) - flash glucose scanning reader ([employer] JALIL 14 DAY READER) misc 1 Device [...] 02/10/2021 Sleep apnea [G47.30] Encounter Status:Closed by EPIC, PRODUSER on 12/05/24[facility] 10-02-2024 Evaluation note* Diagnosis Onset Date Resolution Status Admit Date Cervicalgia acute October 02, 025 11:23am Numbness and tingling in rig ht hand acute October 02, 2024 11:23am Persistent headaches acute Apri l 2024 11:23am Right shoulder pain acute November 20, 2024 9:56am Adhesive bursitis of right shoulder acute November 26, 2024 9:29am Diabetes acute November 26 9:29am Right shoulder pain acute November 26, 2024 9:29am Adhesive bursitis of right shoulder acute January 02, 2025 9:24am Cervicalgia acute January 02 9:24am Numbness and tingling in rig ht hand acute January 02, 2025 9:24am Persistent headaches acute January 02, 2025 9:24am [facility] Work Phone: 1(224) 205-779404-16-2025 Evaluation note* Diagnosis Onset Date Resolution Status Admit Date Cervicalgia acute October 02, 025 11:23am Numbness and tingling in rig ht hand acute October 02, 2024 11:23am Persistent headaches acute Apri l 2024 11:23am Right shoulder pain acute November 20, 2024 9:56am Adhesive bursitis of right shoulder acute November 26, 2024 9:29am Diabetes acute November 26 9:29am Right shoulder pain acute November 26, 2024 9:29am Adhesive bursitis of right shoulder acute January 02, 2025 9:24am Cervicalgia acute January 02 9:24am Numbness and tingling in rig ht hand acute January 02, 2025 9:24am Persistent headaches acute January 02, 2025 9:24am Adhesive capsulitis of right shoulder acute January 27 10:12am Right shoulder pain acute Augus t 2024 10:12am [facility] Work Phone: 1(108) 184-361403-27-2025 History of Present illness Narrative* Nacho Cornell APRN.PAD ASSEMBLER - 09/12/2024 9:40 AM EDT Subjective Patient ID: Jodie is a 54 year old female who presents for Letter (Emotional support animal). HPI Presents today regarding letter for emotional support animal for her dogs. Notes she does not have time for a visit other than to get the letter today. States will come back next week for a visit andget labwork completed. She was last seen in [...] headaches. Onset was about 6 months ago orlonger, headache occurs every day, wakes up with [...] use or CPAP, has one. Does not qualifyfor implant. Tylenol and Advil and headache and [...] the office. She was seen in the [facility] emergency department August 05, 2023. Review of OSH notesindicate she reported blood sugars in the 500 range. She reported polyuria polydipsia lightheadedness and nausea. Due to medication shortage she was provided with Trulicity 0.75 mg to be taken twice daily as her usual dose was not available. She was provided with a 2-week supply from [facility] pharmacy. She was advised to [...] daily headache for which she is taking pywm-mzg-wenkcbs migraine medicine with Tylenol aspirin and caffeine 4 times daily. Notes it has been effective. She was seen for JAELYN and sleep medicine. [facility]. Noted due to dental condition likely would [...] - BASELINE AND POST DILATOR Nacho Cornell APRN.CNS Medical Decision Making: Problems: Low: Stable chronic illness Data: Unique test(s) ordered: 3+ Medical Decision Making Level: 3 - Low documented in [facility]25 NoteHNO ID: [id number] Author: NACHO CORNELL APRN.KEYUR Service: ? Author Type: Nurse Specialist Type: [...] the office. She was seen in the [facility] emergency department August 05, 2023. Review of OSH notes indicate she reported blood sugars in the 500 range. She reported polyuria polydipsia lightheadedness and nausea. Due to medication shortage she was provided with Trulicity 0.75 mg to be taken twice daily as her usual dose was not available. She was provided with a 2-weeksupply from [facility] pharmacy. She was advised to [...] daily headache for which she is taking jdot-qag-zijcvew migraine medicine with Tylenol aspirin and caffeine [...] Date Value 03/15/2023 119 (more content not included)...[facility] 09-10-2024 Evaluation note* Diagnosis Onset Date Resolution Status Admit Date Cervicalgia acute September 10 9:54am Cervicalgia acute October 02 11:23am Numbness and tingling in rig ht hand acute October 02, 2024 11:23am Persistent headaches acute Apri l 2024 11:23am Right shoulder pain acute November 20, 2024 9:56am Adhesive bursitis of right shoulder acute November 26, 2024 9:29am Diabetes acute November 26 9:29am Right shoulder pain acute November 26, 2024 9:29am Adhesive bursitis of right shoulder acute January 02, 2025 9:24am Cervicalgia acute January 02 9:24am Numbness and tingling in rig ht hand acute January 02, 2025 9:24am Persistent headaches acute January 02, 2025 9:24am [facility] Work Phone: 1([phone]) 571-975003-17-2025 Radiology Diagnostic study note [facility] [address] [place], [place] [address] Spine Cervical without Contras MR#: [id number] Acct: [id number] Name: JODIE CHILEL Rep #: [id number] : 1970 F 54 From: Kelsey Church MD PCP: Dr. Sophie Huitron MD Status: REG ER Study:Spine Cervical without Contras Date of Exam: 09/02/24 Exam# [id number] Ordering Dr: Ulysses Ceballos DO PROCEDURE: SPINE [...] No significant spinal canal or foraminal stenosis evidentby CT. C4-5: Disc height loss with diffuse disc bulging and superimposed posterior central disc protrusionwith inferior migration and disc/osteophyte complex, largest in [...] right and mild/moderate on the left. C6-7: Bkwjmaqd-al-roqhzy loss of disc height with diffuse disc [...] 3. Additional description as above. Reading Location: [facility] CC: Dr. Sophie Huitron MD; Dr. Ulysses Ceballos DO ~ Tobacco Stemmer Machine: Signed [facility]03-17-2025 Radiology Diagnostic study note [facility] [address] [place] [id number] Brain/Head without Contrast MR#: [id number] Acct: [id number] Name: JODIE CHILEL Rep #: [id number] : 1970 F 54 From: Angela Sosa MD PCP: Dr. Sophie Huitron MD Status: REG ER Study:Brain/Head without Contrast Date of Exa m: 09/02/24 Exam# [id number] Ordering Dr: Ulysses Ceballos DO EXAM: CT [...] intracranial findings. CLINICAL HISTORY: HEADACHE Reading Location: [facility] CC: Dr. Sophie Huitron MD; Dr. Ulysses Ceballos, DO ~ Tobacco Stemmer Machine: Signed [facility]02-25-2025 Evaluation note* Diagnosis Onset Date Resolution Status Admit Date Cervicalgia acute July 9:34am Orthostatic headache suspected 2024 9:34am Cervicalgia acute September 10 9:54am Cervicalgia acute October 02 11:23am Numbness and tingling in right hand acute October 02, 2024 11:23am Persistent headaches acute Apr2024 11:23am [facility] Work Phone: 1(793) 315-434402-25-2025 Evaluation note* Diagnosis Onset Date Resolution Status Admit Date Cervicalgia acute July 9:34am Orthostatic headache suspected 2024 9:34am Cervicalgia acute September 10 9:54am Cervicalgia acute October 02 11:23am Numbness and tingling in right hand acute October 02, 2024 11:23am Persistent headaches acute 2024 11:23am Right shoulder pain acute November 20, 2024 9:56am Right shoulder pain acute November 26, 2024 9:29am [facility] Work Phone: 1(176) 635-848202-25-2025 Evaluation note* Diagnosis Onset Date Resolution Status Admit Date Cervicalgia acute July 9:34am Orthostatic headache suspected 2024 9:34am Cervicalgia acute September 10 9:54am Cervicalgia acute October 02 11:23am Numbness and tingling in right hand acute October 02, 2024 11:23am Persistent headaches acute Apr2024 11:23am Right shoulder pain acute November 20, 2024 9:56am Adhesive bursitis of right shoulder acute November 26, 2024 9:29am Diabetes acute November 26 9:29am Right shoulder pain acute November 26, 2024 9:29am [facility] Work Phone: 1(906) 883-406102-25-2025 Evaluation note* Diagnosis Onset Date Resolution Status Admit Date Cervicalgia acute July 9:34am Orthostatic headache suspected Febr 2024 9:34am Cervicalgia acute September 10, 025 9:54am Cervicalgia acute October 02 11:23am Numbness and tingling in right hand acute October 02, 2024 11:23am Persistent headaches acute 2024 11:23am Cervicalgia acute November 20 9:56am Numbness and tingling in right hand acute November 20, 2024 9 :56am Pain acute November 20, 2024 9:56am Right shoulder pain acute November 20, 2024 9:56am [facility] Work Phone: 1(326) 784-247201-03-2025 Evaluation note* Diagnosis Onset Date Resolution Status Admit Date Bilateral wrist pain acute 2024 10:17am Cervicalgia suspected July 9:34am Orthostatic headache suspected 2024 9:34am [facility] Work Phone: 1(685) 882-774101-03-2025 Evaluation note* Diagnosis Onset Date Resolution Status Admit Date Bilateral wrist pain acute 2024 10:17am Cervicalgia suspected July 9:34am Orthostatic headache suspected 2024 9:34am Cervicalgia suspected September 10 9:54am [facility] Work Phone: 1(443) 924-945212-29-2024 NoteDischarge Instructions Discharge Summary [address] [address] [id number] 06/15/2024 Patient: JODIE CHIELL Sex: Female : 1970 Age: 53y Thank you for visiting [facility]. You have been evaluated today by Juliet [...] Acute Pain, Uncertain Cause Patient Signature Facility Braze Operator Date/Time 1 of 3 Discharge Instructions General Instructions with ExitWriter [facility] [address] [place] [address] [phone] 06/15/2024 Patient: JODIE CHILEL Sex: Female : 1970 Age: 53y Thank you for visiting [facility]. You have been evaluated today by Juliet [...] prescribed for pain, you can take an hbgh-trh-tozbnee pain medicine such as ibuprofen or acetaminophen. [...] directed by your healthcare provider [facility] NotePatient Outreach (INTMMN) JODIE CHILEL ([id number]) 1970 F Date Time Provider Department 06/12/24 DINO EVANS During your visit today, we [...] for screening mammogram for breast cancer [Z12.31] Order(s):[facility] SCREENING W FELECIA [[id number]] Order #: [id number] FUTURE Prescriptions as of 06/17/2024 - Alpha [...] 18 Units subcutaneously every morning. - Insulin [place], Disposable, (BD ULTRA-FINE VIK PEN NEEDLE) 32 [...] 02/10/2021 Sleep apnea [G47.30] Encounter Status:Closed by ACE boomtrainUSER on 06/17/24[facility] 08-28-2023 Miscellaneous Notes* Telephone Encounter - Dino Evans [...] you. Christine Mendoza LPN. documented in this encounterK[facility]03-11-2024 Miscellaneous Notes* Telephone Encounter - Sheyla Alex [...] you. Sheyla Alex LPN. documented in this [facility]02-27-2024 Miscellaneous Notes* Telephone Encounter - Sheyla Alex [...] - 08/15/2023 5:08 PM EST Patrick from [facility] pharmacy is calling due to the received rx for trulicity 0.75mg with instructions totake 1.5mL. This can not be done per manufacture. They can fill the rx to take 0.75mg until the 1.5mg comes back in stock if wanted. If so a new rx will need sent to [facility] pharmacy with new instructions. please review and advise documented in this encounterKet[facility]02-27-2024 Miscellaneous Notes* Telephone Encounter - Dino Evans [...] asking if prescription can be sent to [facility]. Please review and advise, Sandra France RN documented in this encounterKettering Health [facility]02-22-2024 Instructions* Patient Instructions* Nacho Cornell APRN.CNS - 08/10/2023 9:11 AM EST Continue with inhaler for cough. Try benzonatate at higher dose, new prescription has been sent. Take Trulicity 1.5 mg once weekly. Try topiramate 25 mg daily for daily headache. documented in this encounterKettering [facility]02-22-2024 History of Present illness Narrative* Nacho Cornell [...] the office. She was seen in the [facility] emergency department August 05, 2023. Review of OSH notesindicate she reported blood sugars in the 500 range. She reported polyuria polydipsia lightheadedness and nausea. Due to medication shortage she was provided with Trulicity 0.75 mg to be taken twice daily as her usual dose was not available. She was provided with a 2-week supply from [facility] pharmacy. She was advised to [...] daily headache for which she is taking ergu-eou-arhtixk migraine medicine with Tylenol aspirin and caffeine 4 times daily. Notes it has been effective. She was seen for JAELYN and sleep medicine. Noted [facility]. Noted due to dental condition likely [...] Inject 18 Units subcutaneously every morning. Insulin [place], Disposable, (BD ULTRA-FINE VIK PEN NEEDLE) 32 [...] neuropathy, without long-term current use of insulin ([facility]) flash glucose scanning reader (FREESTYLE [...] lumbar Diabetes mellitus type II Diabetic neuropathy ([facility]) 12/11/2017 feet only Endometrial cancer ([facility]) Fibromyalgia Hypothyroidism Insomnia, unspecified Lazy eye since Menopause Morbid obesity with BMI of 45.0-49.9, adult ([facility]) 03/29/2017 Schizoaffective disorder, bipolar type ([facility]) 04/14/2015 states no longer Sleep [...] neuropathy, with long-term current use of insulin ([facility]) -ICD9: 250.60, 357.2, V58.67, ICD10: E11.40, Z79.4 - DULAGLUTIDE 0.75 MG/0.5 ML SUBCUTANEOUS PEN INJECTOR - PREGABALIN 150 MG CAPSULE - HGB A1C 3. Controlled type 2 diabetes mellitus with diabetic neuropathy, without long- term current use of insulin ([facility]) - ICD9: 250.60, 357.2, ICD10: [...] Level: 4 - Moderate documented in this encounterKettering [facility]02-19-2024 Miscellaneous Notes* Telephone Encounter - Saima Mittal [...] (if gets admitted). No ER notes on [facility] yet. * Telephone Encounter - Mone Wiggins [...] been taking it. 1. BLOOD GLUCOSE: this rkdgsga=737, at 1:30pm mtivj=236 2. ONSET:last check=1:30pm 3. USUAL RANGE: (been [...] spinning Protocols used: Diabetes - High Blood Rtvdo-QZRRF-TB documented in this encounterKettering [facility]02-17-2024 Discharge summary Author Sukumar Stanton [facility] August 05, 2023 3:33pm Note Date/Time August 05, 2023 12:48pm [facility] Medical Records Department [address] [place] [address] Emergency Department Summary 08/05/23 MR#: [id number] Acct: [id number] Name: JODIE CHILEL Rep #:[id number] : 1970 53 From: Sukumar Stanton DO PCP: Dr. Dino Evans MD Status:RE G ER Location: ED HPI History of Present [...] nausea at times. No history of DKA. [facility] Medical History Alcohol use Anxiety Arthritis Asthma [...] Taken Unknown] carbamazepine 300 mg capsule,extended release rjxlyq18ct 600 mg PO QHS 01/21/21 [History Last [...] and apparently there is a backlog on [facility] 1.5 mg weekly. Patient unable to get [...] discussing this with the pharmacy here at [facility] we are unable to adjust the 3 [...] % (Auto) 58.1 Lymph % (Auto) 31.6 Larue % (Auto) 7.6 Eos % (Auto) 1.5 [...] Clarity Clear Urine pH 6.0 Ur Specific Slinger 1.015 Urine Protein 15 H Urine Glucose [...] MOUTH EVERY DAY AT BEDTIME NEEDED vitamin B49-lqafm acid 1-0.8 mg Tablet 1 tab PO [...] your Primary Care Provider. Call [facility] ([phone]) or report to the closest Emergency Room. Call 911 if necessary. 08/05/23 1533 <Electronically signed by Sukumar Stanton DO> Cosigner Signature (if applicable): CC: Dr. Dino Evans MD ~ Signed [facility] Work Phone: 1(667) 835-580502-16-2024 Miscellaneous Notes* Telephone Encounter - Ana Peng [...] RN * Telephone Encounter - Saima Mittal APRN.OYSTER GRADER - 07/31/2023 4:16 PM EST Please let patient know that MRI of the brain was without any issues. Saima Mittal APRN.CNP documented in this encounterKettering [facility]02-12-2024 History of Present illness Narrative* Arti Cowan [...] PATIENT PRESENTS WITH AN IMPLANTABLE OR ATTACHED TAN ROOM SUPERVISOR: Yes Dexcom ALLERGIES: Reviewed and unchanged CONTRAST ALLERGY: NO. EXAM: MRI - CONTRAST TYPE: GROUP II PERIPHERAL IV DATA: Ambulatory: A peripheral IV was started in the Left antecubital site with a Angio cath: 22 gauge. RADIOLOGY DEPARTMENT: MR; Exam(s) Completed: Head: Routine Brain SIGNATURE: RT Josiah(R) PATIENT NAME: Jodie Chilel DATE: July 31, 2023 TIME: 9:36 AM documented in this encounterKet[facility]12-15-2023 History of Present illness Narrative* Alecia Fragoso APRN.CNP - 06/02/2023 11:00 AM EST Images from the original note were not included. [facility] New Patient Evaluation PATIENT NAME: Jodie Chilel DATE OF SERVICE: June 01, 2023 CONSULTING PROVIDER: Nacho Self [facility] [address] REASON FOR CONSULT: Nacho Cornell sends the [...] neuropathy (HCC) 12/11/2017 feet only Endometrial cancer ([facility]) Fibromyalgia Hypothyroidism Insomnia, unspecified Lazy eye since Menopause Morbid obesity with BMI of 45.0-49.9, adult ([facility]) 03/29/2017 Schizoaffective disorder, bipolar type ([facility]) 04/14/2015 states no longer Sleep apnea CPAP occasional usage Tobacco use disorder 01/21/2021 PAST SURGICAL HISTORY Procedure Laterality Date BACK SURGERY HX 02/03/2019 bilateral laminotomies, decompression L5 and S1 nerve roots, removal of epidural lipomatosis D+C 01/28/2021 Adenocarcioma FIGO 1, [facility]. Dr. Phan LAP SURG APPENDECTOMY 2005 LAPAROSCOPY SURG CHOLECYSTECTOMY 08/11/2008 LAPS TOTAL HYSTERECT 250 GM/< W/RMVL TUBE/OVARY 03/08/2021 PAST SURGICAL HISTORY OF 1997 right forearm, brown recluse PAST SURGICAL HISTORY OF 10/28/2020 i had my nerves burnt in my back injections didn't work ACTIVE PROBLEM LIST Hypothyroidism Controlled Type 2 Diabetes Mellitus With Diabetic Neuropathy, Without Long-Term Current Use of Insulin ([facility]) Schizoaffective Disorder, Bipolar Type ([facility]) Chronic Bilateral Low Back Pain Without Sciatica Neck Pain, Chronic Morbid Obesity With Bmi of 45.0-49.9, Adult ([facility]) Diabetic Neuropathy ([facility]) Pes Cavus Diminished Pulses in Lower Extremity Tobacco Use Disorder Asthma Endometrial Adenocarcinoma ([facility]) Sleep Apnea Allergies As of Date: 06/02/2023 [...] Inject 18 Units subcutaneously every morning. Insulin [place], Disposable, (BD ULTRA-FINE VIK PEN NEEDLE) 32 [...] neuropathy, without long-term current use of insulin ([facility]) flash glucose scanning reader (FREESTYLE [...] in having to [place]. We discussed that her JAELYN is too mild to qualify for hypoglossal nerve stimulation (Inspire). OAT--I'll check with dentist but I believe the state of patient's dentition will preclude OAT CBTI--she is interested in virtual CBTI for her long-term issue with sleep initiation insomnia Alecia Fragoso APRN.OYSTER GRADER documented in this encounterKettering Health [facility]11-14-2023 Miscellaneous Notes* Telephone Encounter - Michelle Chavez [...] calling: self Call patient at: on cell [phone] (home) Was an appointment scheduled: No Closing statement: Results or non-symptom based questions: Thank you for calling [facility], your call will be returned within the next business day. Lesia Morrow documented in this encounterKettering [facility]11-07-2023 History of Present illness Narrative* Keyla Zamora [...] did buy some Tylenol cold and flu sxjw-hqh-flyurdn but has not taken it yet. She [...] lumbar Diabetes mellitus type II Diabetic neuropathy ([facility]) 12/11/2017 feet only Endometrial cancer ([facility]) Fibromyalgia Hypothyroidism Insomnia, unspecified Lazy eye since Menopause Morbid obesity with BMI of 45.0-49.9, adult ([facility]) 03/29/2017 Schizoaffective disorder, bipolar type ([facility]) 04/14/2015 states no longer Sleep [...] subcutaneously every morning. 30 mL 5 Insulin [place], Disposable, (BD ULTRA-FINE VIK PEN NEEDLE) 32 [...] neuropathy, without long-term current use of insulin ([facility]) 1 Each 0 flash glucose [...] epidural lipomatosis D+C 01/28/2021 Adenocarcioma FIGO 1, [facility]. Dr. Phan LAP SURG APPENDECTOMY 2005 [...] sent Keyla Zamora PA-C documented in this encounterKettering [facility]11-07-2023 Miscellaneous Notes* Telephone Encounter - Erin Templeton [...] visit choices for treatment. documented in this encounterKettering [facility]10-23-2023 Miscellaneous Notes* Telephone Encounter - Ana Peng [...] on Monday last week. documented in this encounterKettering Health [facility]10-23-2023 Miscellaneous Notes* Telephone Encounter - Darcy Simmons RN - 04/10/2023 8:16 AM EDT Patient has been identified by name and date of : Yes, Provider Dorothea Garcia 04-10-23 Time 8:17 am Patient phones for [...] you. Darcy Simmons RN. documented in this encounterKettering [facility]10-19-2023 History of Present illness Narrative* Nacho Cornell, CONDUCTOR YARD.PAD ASSEMBLER - 04/06/2023 8:50 AM EDT SUBJECTIVE: Hepatitis B Vaccine(1 of 3 - 3-dose series) Never done Spirometry Never done DTaP,Tdap,Td Vaccine(1 - Tdap) Never done Colorectal Cancer Screening Never done Mammogram Screening due on 11/03/2021 Covid-19 Vaccine(5 - 2022- season) due on 02/17/2023 Shingrix Vaccine(2 of 2) due on 03/01/2023 HPI Jodie Chilel is a 52 year [...] sleep apnea. Sleep study was completed at [facility] last week, report not yet available. [...] Inject 18 Units subcutaneously every morning. Insulin [place], Disposable, (BD ULTRA-FINE VIK PEN NEEDLE) 32 [...] neuropathy, without long-term current use of insulin ([facility]) flash glucose scanning reader (FREESTYLE JALIL 14 DAY READER) misc 1 Device once daily. dulaglutide (TRULICITY) 1.5 mg/0.5 mL pen injector Inject 1.5 mg subcutaneously one time a week. PAST MEDICAL HISTORY Diagnosis Date Adjustment disorder with depressed mood Anxiety disorder in conditions classified elsewhere Asthma 03/31/2019 mild well controlled Degenerative disc disease, lumbar Diabetes mellitus type II Diabetic neuropathy ([facility]) 12/11/2017 feet only Endometrial cancer ([facility]) Fibromyalgia Hypothyroidism Insomnia, unspecified Lazy eye since Menopause Morbid obesity with BMI of 45.0-49.9, adult ([facility]) 03/29/2017 Schizoaffective disorder, bipolar type ([facility]) 04/14/2015 states no longer Sleep [...] G47.33 (primary diagnosis) Sleep study completed at [facility], reports prior intolerance of PAP therapy. [...] - ZOSTER VACCINE, RECOMBINANT (SHINGRIX) Nacho Cornell APRN.PAD ASSEMBLER Medical Decision Making: Problems: Moderate: 2+ stable chronic illnesses Risk: Moderate: Drug management Medical Decision Making Level: 4 - Moderate documented in this encounterKettering [facility]10-05-2023 Miscellaneous Notes* Telephone Encounter - Yuliet Verdin LPN - 03/23/2023 10:11 AM EDT Order, note and previous sleep study faxed to [facility] sleep study * Telephone Encounter - Dino Evans MD - 03/23/2023 2:07 AM EDT Note closed * Telephone Encounter - Jen Decker LPN - 03/22/2023 10:43 AM EDT Office note needs completed prior to faxing order. * Telephone Encounter - Carol Clarke LPN - 03/21/2023 11:19 AM EDT Pt is calling to report she called [facility] to schedule sleep study. Pt was advised that they have not received orders from 's office. Has office sent over [facility] form for sleep study? If not please fax and let pt know. Carol Clarke LPN documented in this encounterKettering Health [facility]10-04-2023 NoteHNO ID: [id number] Author: Braxton Modi Formerly [facility] Service: ? Author Type: [...] Outpatient Medications Medication Sig Dispense Refill Insulin [place], Disposable, (BD ULTRA-FINE VIK PEN NEEDLE) 32 [...] neuropathy, without long-term current use of insulin ([facility]) 1 Each 0 flash glucose scanning reader ([employer] TechnologySTYLE JALIL 14 DAY READER) misc 1 Device [...] 35 03/15/2023 Lab Re (more content not included)...[facility] [id number] Miscellaneous Notes* Telephone Encounter - Sandra France RN - 03/07/2023 3:23 PM EDT Last Office Visit: 01/09/2023 Future Office Visit: 03/15/2023 Requested Prescriptions Pending Prescriptions Disp Refills dulaglutide (TRULICITY) 1.5 mg/0.5 mL pen injector 2 mL 1 Sig: Inject 1.5 mg subcutaneously one time a week. Date of Last Labs: 12/08/2022 documented in this encounterKettering [facility]09-18-2023 Miscellaneous Notes* Telephone Encounter - Dino Evans [...] prior authorization. Please advise. documented in this encounterKettering Health [facility]09-15-2023 Miscellaneous Notes* Telephone Encounter - Darcy Simmons [...] Please advise. Thank you. Radha Kee, GERALDINE * Telephone Encounter - Dino Evans MD - 03/01/2023 3:35 PM EDT Can try to get local RX filled sooner and pay for out of pocket but for future reference, should call [employer] Jalil 1-800 number anytime a sensor falls [...] reports she ran out of sensors and [facility] Jessica tells her it's too soon to [...] please send Rx for 1 sensor to [facility] Jessica. It is too soon to fill her existing Rx per insurance. Pended. documented in this encounterKettering Health [facility]09-13-2023 Miscellaneous Notes* Telephone Encounter - Jen Decker [...] NO Protocols used: Diabetes - Low Blood Zphcw-JQOYQ-VY documented in this encounterKettering Health [facility]09-12-2023 Miscellaneous Notes* Telephone Encounter - Dino Evans MD - 02/28/2023 12:52 AM EDT Okayed * Telephone Encounter - Christine Mendoza LPN - 02/27/2023 11:[address] Evans please review. Christine Mendoza LPN documented in this encounterKettering Health [facility]08-31-2023 Miscellaneous Notes* Telephone Encounter - Darcy Simmons [...] long time. Thought they were migraines- bought [employer] general migraine relief pills yesterday. Took those [...] Hysterectomy. Protocols used: Diabetes - Low Blood Uddct-BSTLU-YU documented in this encounterKettering Health [facility]08-16-2023 Miscellaneous Notes* Telephone Encounter - Pooja Barreto RN - 02/01/2023 1:37 PM EDT Patient has been identified by name and date of : Yes, Provider Dr. Evans Date 02/01/23 [id number] Patient phones for refill(s): Requested Prescriptions Pending [...] you. Pooja Barreto, RN documented in this encounterKettering Health [facility]08-16-2023 NoteHNO ID: [id number] Author: Braxton Modi RPh Service: ? Author [...] mouth once daily. 30 tablet 5 Insulin [place], Disposable, (NOVOFINE 32) 32 gauge x 1/4 [...] neuropathy, without long-term current use of insulin ([facility]) 1 Each 0 flash glucose [...] neuropathy, without long-term current use of insulin ([facility]) - ICD9: 250.60, 357.2, ICD10: [...] - HGB A1C - ALBUMIN/CREAT RATIO RND UR Braxton Modi RPh The majority of the (more content not included)...[facility] [id number] Note HNO ID: [id number] Author: Braxton Modi RPh Service: ? Author [...] stomach. For thyroid. 30 tablet 11 Insulin [place], Disposable, (NOVOFINE 32) 32 gauge x 1/4 [...] neuropathy, without long-term current use of insulin ([facility]) 1 Each 0 flash glucose scanning reader (FREESTYLE JALIL 14 DAY READER) misc 1 Device once daily. 1 Each 0 No current facility-administered medications for this visit. EXAM: LMP (LMP Unknown) Last 3 Encounter BP Readings: Date: BP: 01/31/2023 110/68 01/09/2023 118/68 12/08/2022 118/70 Wt: 95.7 kg (211 lb) BMI: 41.21 kg/(m2) LABS: (more content not included)...[facility] [id number] History of Present illness Narrative* Mary Womack MD - 01/31/2023 10:16 AM EDT Onsite Health Coach offered: Patient declines. Jodie Chilel is a 52 year old female who presents for follow-up for 6-month pelvic exam status post endometrial cancer status post hysterectomy/BSO. Patient reports is doing well. No vaginal bleeding. No pelvic pain. 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 Clerk History Comments: Sexual Activity: Not Currently; No partner data on record Contraception: No contraception data on record PAST MEDICAL HISTORY Diagnosis Date Adjustment disorder with depressed mood Anxiety disorder in conditions classified elsewhere Asthma 03/31/2019 mild well controlled Degenerative disc disease, lumbar Diabetes mellitus type II Diabetic neuropathy ([facility]) 12/11/2017 feet only Endometrial cancer ([facility]) Fibromyalgia Hypothyroidism Insomnia, unspecified Lazy eye since Menopause Morbid obesity with BMI of 45.0-49.9, adult ([facility]) 03/29/2017 Schizoaffective disorder, bipolar type ([facility]) 04/14/2015 states no longer Sleep apnea CPAP occasional usage Tobacco use disorder 01/21/2021 PAST SURGICAL HISTORY Procedure Laterality Date BACK SURGERY HX 02/03/2019 bilateral laminotomies, decompression L5 and S1 nerve roots, removal of epidural lipomatosis D+C 01/28/2021 Adenocarcioma FIGO 1, [facility]. Dr. Phan LAP SURG APPENDECTOMY 2005 [...] Take on empty stomach. For thyroid. Insulin [place], Disposable, (NOVOFINE 32) 32 gauge x 1/4 [...] neuropathy, without long-term current use of insulin ([facility]) flash glucose scanning reader (FREESTYLE AJLIL 14 [...] external genitalia normal, normal Bartholin's glands, urethra, [place]'s glands, no vulvar lesions, good vaginal support, [...] which included preparing to see the patient, eomk-wb-kunw patient care, completing clinical documentation, obtaining and/or reviewing separately obtained history, performing a medically appropriate examination, and counseling and educating the patient/family/caregiver. Mary Jacobo MD documented in this encounterKettering Health [facility]08-03-2023 Hospital Discharge instructions Additional Instructions 1. Apply bacitracin ointment to the abrasions 3 times a day for the next 5 days 2. Apply ice to areas of discomfort 6-10 times a day 3. Take Tylenol for [facility] Work Phone: 1(280) 281-862107-12-2023 NoteHNO ID: [id number] Author: Braxton Modi RPh Service: ? Author [...] stomach. For thyroid. 30 tablet 11 Insulin [place], Disposable, (NOVOFINE 32) 32 gauge x 1/4 [...] neuropathy, without long-term current use of insulin ([facility]) 1 Each 0 flash glucose [...] Date Value 03/09/2021 >60 (more content not included)...[facility] [id number] History of Present illness Narrative* Braxton Modi, Formerly [facility] - 12/28/2022 10:30 AM EDT Primary Care [...] stomach. For thyroid. 30 tablet 11 Insulin [place], Disposable, (NOVOFINE 32) 32 gauge x 1/4 [...] neuropathy, without long-term current use of insulin ([facility]) 1 Each 0 flash glucose [...] time was 22 minutes. documented in this encounterKettering Health [facility]06-28-2023 NoteHNO ID: [id number] Author: Braxton Modi RPh Service: ? Author [...] stomach. For thyroid. 30 tablet 11 Insulin [place], Disposable, (NOVOFINE 32) 32 gauge x 1/4 [...] neuropathy, without long-term current use of insulin ([facility]) 1 Each 0 flash glucose scanning reader (FREESTYLE JALIL 14 DAY READER) misc 1 Device once daily. 1 Each 0 No current facility-ad (more content not included)...[id number] History of Present illness Narrative* Braxton Modi, [facility] - 12/14/2022 10:00 AM EDT Primary Care Pharmacy Visit CC (Reason for Consult): (E11.40) Controlled type 2 diabetes mellitus with diabetic neuropathy, without long-term current use of insulin ([facility]) (primary encounter diagnosis) Goal: A1C < 7% [...] stomach. For thyroid. 30 tablet 11 Insulin [place], Disposable, (NOVOFINE 32) 32 gauge x 1/4 [...] neuropathy, without long-term current use of insulin ([facility]) 1 Each 0 flash glucose [...] better controlled. Follow up: See patient instructions. Barxton Modi RPh The majority of the pharmacy visit (> 50%) was spent counseling and/or coordinating care for thepatient. interaction: telephonic time was 45 minutes. documented in this encounterKettering Health [facility] Memorial2023 Miscellaneous Notes* Telephone Encounter - Erin Templeton RN - 12/12/2022 11:55 AM EDT Patient calls to request refill of freestyle Jalil 14 day sensor kit reporting there is no refills at the pharmacy. Call placed to [facility] pharmacy and they will fill the prescription on file from 09/16/2022. Erin Templeton RN documented in this encounterKettering Health [facility]06-22-2023 Instructions* Patient Instructions* Nacho Cornell APRN.CNS - 12/08/2022 12:27 PM EDT Increase pregabalin from 75 mg twice daily to 100 mg twice daily documented in this encounterKettering Health [facility]06-22-2023 History of Present illness Narrative* Nacho Cornell [...] 124/72 01/21/2021 126/70 Continues to follow-up at [facility]. States this is [...] Take on empty stomach. For thyroid. Insulin [place], Disposable, (NOVOFINE 32) 32 gauge x 1/4 [...] neuropathy, without long-term current use of insulin ([facility]) flash glucose scanning reader (FREESTYLE [...] lumbar Diabetes mellitus type II Diabetic neuropathy ([facility]) 12/11/2017 feet only Endometrial cancer ([facility]) Fibromyalgia Hypothyroidism Insomnia, unspecified Lazy eye since Menopause Morbid obesity with BMI of 45.0-49.9, adult ([facility]) 03/29/2017 Schizoaffective disorder, bipolar type ([facility]) 04/14/2015 states no longer Sleep [...] by counseling center Labs today Nacho Cornell APRN.PAD ASSEMBLER Medical Decision Making: Problems: Moderate: 1+ chronic illnesses with change Risk: Moderate: Drug management Medical Decision Making Level: 4 - Moderate documented in this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 Schizoaffective disorder 02/13/201210/2020 documented as of this encounter (statuses as of 04/26/2023) [facility] History of Past illness Narrative* Problem Noted Date Diagnosed Date Resolved Date Other intervertebral disc de generation, lumbar region 01/23/2019 01/21/2021 Pain in both feet 12/26/2014 01/21/2021 Sebaceous cyst 01/28/2014 01/21/2021 Schizoaffective disorder 02/13/201210/2020 documented as of this encounter (statuses as of 04/26/2023) [facility] History of Past illness Narrative* Problem Noted Date Diagnosed Date Resolved Date Other intervertebral disc de generation, lumbar region 01/23/2019 01/21/2021 Pain in both feet 12/26/2014 01/21/2021 Sebaceous cyst 01/28/2014 01/21/2021 Schizoaffective disorder 02/13/201210/2020 documented as of this encounter (statuses as of 05/03/2023) [facility] History of Past illness Narrative* Problem Noted Date Diagnosed Date Resolved Date Other intervertebral disc de generation, lumbar region 01/23/2019 01/21/2021 Pain in both feet 12/26/2014 01/21/2021 Sebaceous cyst 01/28/2014 01/21/2021 Schizoaffective disorder 02/13/201210/2020 documented as of this encounter (statuses as of 06/02/2023) [facility] History of Past illness Narrative* Problem Noted Date Diagnosed Date Resolved Date Other intervertebral disc de generation, lumbar region 01/23/2019 01/21/2021 Pain in both feet 12/26/2014 01/21/2021 Sebaceous cyst 01/28/2014 01/21/2021 Schizoaffective disorder 02/13/201210/2020 documented as of this encounter (statuses as of 07/10/2023) [facility] History of Past illness Narrative* Problem Noted Date Diagnosed Date Resolved Date Other intervertebral disc de generation, lumbar region 01/23/2019 01/21/2021 Pain in both feet 12/26/2014 01/21/2021 Sebaceous cyst 01/28/2014 01/21/2021 Schizoaffective disorder 02/13/201210/2020 documented as of this encounter (statuses as of 08/01/2023) [facility] History of Past illness Narrative* Problem Noted Date Diagnosed Date Resolved Date Other intervertebral disc de generation, lumbar region 01/23/2019 01/21/2021 Pain in both feet 12/26/2014 01/21/2021 Sebaceous cyst 01/28/2014 01/21/2021 Schizoaffective disorder 02/13/201210/2020 documented as of this encounter (statuses as of 08/04/2023) [facility] History of Past illness Narrative* Problem Noted Date Diagnosed Date Resolved Date Other intervertebral disc de generation, lumbar region 01/23/2019 01/21/2021 Pain in both feet 12/26/2014 01/21/2021 Sebaceous cyst 01/28/2014 01/21/2021 Schizoaffective disorder 02/13/201210/2020 documented as of this encounter (statuses as of 08/07/2023) [facility] History of Past illness Narrative* Problem Noted Date Diagnosed Date Resolved Date Other intervertebral disc de generation, lumbar region 01/23/2019 01/21/2021 Pain in both feet 12/26/2014 01/21/2021 Sebaceous cyst 01/28/2014 01/21/2021 Schizoaffective disorder 02/13/201210/2020 documented as of this encounter (statuses as of 08/10/2023) [facility] History of Past illness Narrative* Problem Noted Date Diagnosed Date Resolved Date Other intervertebral disc de generation, lumbar region 01/23/2019 01/21/2021 Pain in both feet 12/26/2014 01/21/2021 Sebaceous cyst 01/28/2014 01/21/2021 Schizoaffective disorder 02/13/201210/2020 documented as of this encounter (statuses as of 08/16/2023) [facility] History of Past illness Narrative* Problem Noted Date Diagnosed Date Resolved Date Other intervertebral disc de generation, lumbar region 01/23/2019 01/21/2021 Pain in both feet 12/26/2014 01/21/2021 Sebaceous cyst 01/28/2014 01/21/2021 Schizoaffective disorder 02/13/201210/2020 documented as of this encounter (statuses as of 08/17/2023) [facility] History of Past illness Narrative* Problem Noted Date Diagnosed Date Resolved Date Other intervertebral disc de generation, lumbar region 01/23/2019 01/21/2021 Pain in both feet 12/26/2014 01/21/2021 Sebaceous cyst 01/28/2014 01/21/2021 Schizoaffective disorder 02/13/201210/2020 documented as of this encounter (statuses as of 08/28/2023) [facility] History of Past illness Narrative* Problem Noted Date Diagnosed Date Resolved Date Other intervertebral disc de generation, lumbar region 01/23/2019 01/21/2021 Pain in both feet 12/26/2014 01/21/2021 Sebaceous cyst 01/28/2014 01/21/2021 Schizoaffective disorder 02/13/201210/2020 documented as of this encounter (statuses as of 08/29/2023) [facility] History of Past illness Narrative* Problem Noted Date Diagnosed Date Resolved Date Other intervertebral disc de generation, lumbar region 01/23/2019 01/21/2021 Pain in both feet 12/26/2014 01/21/2021 Sebaceous cyst 01/28/2014 01/21/2021 Schizoaffective disorder 02/13/201210/2020 documented as of this encounter (statuses as of 09/27/2023) [facility] January 19, 2023 9:56am Note Date/Time January 19, 2023 9:4 9am [facility] Medical Records Department [address] [place] [address] Emergency Department Summary 01/19/23 MR#: [id number] Acct: [id number] Name: JODIE CHILEL Darcy Rep #:[id number] : 1970 52 From: Mathew Santiago MD [...] Taken Unknown] carbamazepine 300 mg capsule,extended release mhnrsn06id 600 mg PO QHS 01/21/21 [History Last [...] for contusion versus fracture. Based on the [place] knee rule imaging of the knee is [...] MOUTH EVERY DAY AT BEDTIME NEEDED vitamin F70-ipjrs acid 1-0.8 mg Tablet 1 tab PO [...] Qty: 20 0RF Primary Care Provider: Dino Evnas Referrals: Dino Evans MD [Primary Care Provider] [...] your Primary Care Provider. Call [facility] ([phone]) or report to the closest Emergency Room. Call 911 if necessary. 01/19/23 0956 <Electronically signed by Mathew Santiago MD> Cosigner Signature (if applicable): CC: Dr. Dino Evans MD ~ Signed [facility] Work Phone: Evaluation note* Diagnosis Cough- Primary Asthma with acute exacerbation, unspecified asthma severity, unspecified whether persistent documented in this encounter [facility] note* Diagnosis Encounter for screening mammogram for breast cancer documented in this encounter [facility] noteNo assessment information availableWSCCI Hospital [facility] Work Phone: Evaluation note* Diagnosis Screening for [...] unspecified whether persistent documented in this encounter [facility] note* Diagnosis Type 2 diabetes mellitus with hyperglycemia, with long-term current use of insulin (HCC)- Primary Controlled type 2 diabetes mellitus with diabetic neuropathy, without long-term current use of insulin (HCC) documented in this encounter [facility] note* Diagnosis Type 2 diabetes mellitus with diabetic neuropathy, with long-term current use of insulin (HCC) documented in this encounter [facility] note* Diagnosis Type 2 diabetes mellitus [...] comorbidity present (HCC) documented in this encounter [facility] note* Diagnosis Type 2 diabetes mellitus [...] disorder, unspecified condition [facility] [place] [facility] Diagnosis Controlled type 2 diabetes mellitus with diabetic neuropathy, without long-term current use of insulin (HCC)- Primary [facility] [place] [facility]* Diagnosis Controlled type 2 diabetes mellitus with diabetic neuropathy, without long-term current use of insulin ([facility])- Primary [facility] [place] [facility]* Diagnosis Endometrial cancer (HCC)- Primary Malignant neoplasm of corpus uteri, except isthmus [facility] [place] [facility]* Diagnosis Asthma with acute exacerbation, unspecified asthma severity, unspecified whether persistent Acquired hypothyroidism Unspecified hypothyroidism Hypercholesteremia Pure hypercholesterolemia [facility] [place] [facility]* Diagnosis Asthma with acute exacerbation, unspecified asthma severity, unspecified whether persistent [facility] [place] [facility]* Diagnosis Acquired hypothyroidism Unspecified hypothyroidism [facility] [place] [facility]* Diagnosis Controlled type 2 diabetes with neuropathy ([facility])- Primary Type II or unspecified type diabetes mellitus with neurological manifestations, not stated as uncontrolled [facility] [place] [facility]* Diagnosis Type 2 diabetes mellitus with diabetic neuropathy, with long-term current use of insulin ([facility]) [facility] [place] [facility]* Diagnosis JAELYN (obstructive sleep apnea)- Primary Obstructive sleep apnea (adult) (pediatric) Controlled type 2 diabetes mellitus with diabetic neuropathy, without long-term current use of insulin ([facility]) Encounter for immunization Need for other specified prophylactic vaccination against single bacterial disease documented in this encounter [facility] note* Diagnosis URI, acute- Primary Acute upper respiratory infections of unspecified site [facility] [place] [facility]* Diagnosis JAELYN (obstructive sleep apnea)- Primary Obstructive sleep apnea (adult) (pediatric) Intolerance of continuous positive airway pressure (CPAP) ventilation Primary insomnia Persistent disorder of initiating or maintaining sleep documented [facility] [place] [facility]* Diagnosis Encounter for screening mammogram for breast cancer [facility] [place] [facility]* Diagnosis New daily persistent headache [facility] [place] [facility]* Diagnosis Hypomagnesemia- Primary Disorders of magnesium metabolism Type 2 diabetes mellitus with diabetic neuropathy, with long-term current use of insulin (HCC) Controlled type 2 diabetes mellitus with diabetic neuropathy, without long-term current use of insulin (HCC) New daily persistent headache [facility] Diagnosis Type 2 diabetes mellitus with diabetic neuropathy, with long-term current use of insulin (HCC) Controlled type 2 diabetes mellitus with diabetic neuropathy, without long-term current use of insulin (HCC) [facility] Diagnosis Type 2 diabetes mellitus with diabetic neuropathy, with long-term current use of insulin (HCC) Controlled type 2 diabetes mellitus with diabetic neuropathy, without long-term current use of insulin (HCC) [facility] [place] [facility]* Diagnosis Hypercholesteremia Pure hypercholesterolemia [facility] [place] [facility]* Diagnosis Controlled type 2 diabetes mellitus with diabetic neuropathy, without long-term current use of insulin (HCC) [facility] Diagnosis Cough [facility] [place] [facility]* Diagnosis Cough [facility] [place] [facility]* Diagnosis Encounter for screening mammogram for breast cancer [facility] [place] [facility]* Diagnosis Schizoaffective disorder, bipolar type (HCC)- [...] Tobacco use disorder [facility] Additional Instructions CT brain negative. 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 Discussed with your doctor about increasing your Lyrica. Take Valium as prescribed. You have pending MRI orders from your neurologist. Refills through your doctor.[facility] Work Phone: Hospital Discharge instructionsAmbulatory Orders* Orthopedics Location: None Selected [facility] Work Phone: Reason for referral (narrative)* Diagnostic Procedure Only (Routine) - Pending Review Specialty Diagnoses / Procedures Referred By Kailyn caballero Referred To Contact [facility] Diagnoses Encounter for screening mammogram for breast cancer Procedures SARKIS SCREENING SCREENING MAMMOGRAPHY BI 2-VIEW BREAST INC Dino Browne MD [address] [place] [address] [facility] [address] [place] [address] Referral ID Status Reason Start Date Expiration Date Visits Requested Visits Authorized [id number] Pending Review Auto-Generat ed Referral 12/08/2021 01/07/2023 1 1 [facility] for referral (narrative)* Outpatient Procedure (Routine) - Pending Review Specialty Diagnoses / Procedures Referred By Kailyn caballero [facility] Diagnoses Tachycardia Procedures ECG COMPLETE ECG ROUTINE ECG W/LEAST 12 LDS W/I&R Dino Evans MD [address] [place] [address] [facility] [place] [address] [place] [address] Referral ID Status Reason Start Date Expiration Date Visits Requested Visits Authorized [id number] Pending Review Auto-Generat ed Referral 09/16/2022 09/16/2023 1 1 [facility] for [facility] (narrative)* Diagnostic Procedure Only (Routine) - Authorized Specialty Diagnoses / Procedures Referred By Kailyn caballero Referred To Contact [facility] Diagnoses Encounter for screening mammogram for breast cancer Procedures SARKIS SCREENING SCREENING MAMMOGRAPHY BI 2-VIEW BREAST INC Dino Browne MD [address] [place] [address] [facility] [address] [place] [address] Referral ID Status Reason Start Date Expiration Date Visits Requested Visits Authorized [id number] Authorized Auto-Generat ed Referral 07/05/2023 08/03/2024 1 1 [facility] for referral (narrative)* Diagnostic Procedure Only (Routine) - New Request Specialty Diagnoses / Procedures Referred By Kailyn caballero Referred To Contact [facility] Diagnoses Encounter for screening mammogram for breast cancer Procedures SARKIS SCREENING W FELECIA SCREENING DIGITAL BREAST TOMOSYNTHESIS BI SCREENING MAMMOGRAPHY BI 2-VIEW BREAST INC CAD Dino Evans MD [address] [place] [address] [facility] [address] [place] [address] Referral ID Status Reason Start Date Expiration Date Visits Requested Visits Authorized [id number] New Request Auto-Generat ed Referral 4 07/12/2025 1 1 Y [facility] for referral (narrative)No reason for referral information availableWSCCI Hospital [facility] Work Phone: Summary Purpose Family History No [...] FoundDocuments on File Type Date Recorded Patient Braze Operator Expl anation Advance Directive(s) 03/08/2021 12:12 PM Documents on File Type Date Recorded Patient Braze Operator Expl anation Advance Directive(s) 03/08/2021 12:12 PM Advance Directive Response Recorded Date/ Time Living Will No December 27, 2021 9:10pm Power of Seamer No December 27 9:10pm Advance Directive Response Recorded Date/ Time Living Will No January 19, 2023 9:59am Power of Seamer No January 19 9:59am Advance Directive Response Recorded Date/ Time Living Will No August 05, 2 024 12:45pm Power of Seamer No August 05, 2023 12:45pm Advance Directive Response Recorded Date/ Time Living Will No August 05, 2 024 1:45pm Power of Seamer No August 05, 2023 1:45pm Advance Directive Response Recorded Date/ Time Living Will No May 31, 2 024 6:39pm Power of Seamer No May 31, 2024 6:39pm Living Will No June 15, 2 024 10:00am Power of Seamer No June 15, 2024 10:00am Living Will No July 22 4:33pm Power of Seamer No July 22, 2024 4:33pm Living Will No September 02, 2024 4:10pm Power of Seamer No September 02 4:10pm Advance Directive Response Recorded Date/ Time Living Will No May 31, 2 024 6:39pm Do you have a Healthcare Power of Seamer? No May 31, 2024 6:39pm Living Will No June 15, 024 10:00am Do you have a Healthcare Power of Seamer? No June 15, 2024 10:00am Living Will No July 22 4:33pm Do you have a Healthcare Power of Seamer? No July 22, 2024 4:33pm Living Will No September 02, 2024 4:10pm Do you have a Healthcare Power of Seamer? No September 02, 2024 4:10pm Advance Directive Response Recorded Date/ Time Living Will No July 22 4:33pm Do you have a Healthcare Power of Seamer? No July 22, 2024 4:33pm Living Will No September 02, 2024 4:10pm Do you have a Healthcare Power of Seamer? No September 02, 2024 4:10pm Do you have a Healthcare Power of Seamer? No November 08, 2024 9:01pm Advance Directive Response Recorded Date/ Time Living Will No September 02, 2024 4:10pm Do you have a Healthcare Power of Seamer? No September 02, 2024 4:10pm Do you have a Healthcare Power of Seamer? No November 08, 2024 9:01pm Advance Directive Response Recorded Date/ Time Living Will No September 02, 2024 4:10pm Do you have a Healthcare Power of Seamer? No September 02, 2024 4:10pm Do you have a Healthcare Power of Seamer? No December 08, 2024 6:22pm Do you have a Healthcare Power of Seamer? No November 08, 2024 9:01pm Advance Directive Response Recorded Date/ Time Do you have a Healthcare Power of Seamer? No December 08, 2024 6:22pm Do you have a Healthcare Power of Seamer? No November 08, 2024 9:01pm Health Concerns [...] shoulder pain November 20, 2024 9:56a m Chief Complaint Admit Date Migraines August 13, [...] room 2 November 26, 2024 9:34 am RIGHT SHOULDER PAIN. RX HERE December 02, 2024 8:56am fall December 08, 2024 6:17 pm Chief Complaint Admit Date 1 1/2 MONTH September 10, 2024 9:5 4am SEVERE HEADACHES [...] room 2 November 26, 2024 9:34 am fall December 08, 2024 6:17 pm RIGHT SHOULDER PAIN. RX HERE January 01, 2025 9:30am 3 M FU January 02, 2025 9:24 am Reason for Visit Admit Date Cervicalgia September 10, 2024 9:5 4am Cervicalgia October 02, 2024 11: 23am Numbness and tingling in right hand Apri l 2024 11:23am Persistent headaches October 02, 2024 11 :23am Right shoulder pain November 20, 2024 9:56a m Adhesive bursitis of right shoulder November 26, 2024 9:29am Diabetes November 26, 2024 9:29 am Right shoulder pain November 26, 2024 9:29 am Adhesive bursitis of right shoulder January 02, 2025 9:24am Cervicalgia January 02, 2025 9:24 am Numbness and tingling in right hand January 02, 2025 9:24am Persistent headaches January 02, 2025 9:2 4am Chief Complaint Admit Date 1 M FU October 02, 2024 11: 23am FASTING October 11, 2024 9:4 7am abd November 08, 2024 8:47p m BUE; CERVICALGIA November 12, 2024 9:00a m BUE; CERVICALGIA November 12, 2024 10:17 am ACUTE VISIT/ ARM PAIN/TEST RESULTS November 20, 2024 9:56am RIGHT SHOULDER November 26, 2024 9:29 am room 2 November 26, 2024 9:34 am fall December 08, 2024 6:17 pm 3 M FU January 02, 2025 9:24 am RIGHT HAND AND WRIST January 22, 2025 9: 51am RIGHT SHOULDER PAIN. RX HERE January 9:00am RIGHT SHOULDER January 27, 2025 10 :12am Reason for Visit Admit Date Cervicalgia October 02, 2024 11: 23am Numbness and tingling in right hand Apri l 2024 11:23am Persistent headaches October 02, 2024 11 :23am Right shoulder pain November 20, 2024 9:56a m Adhesive bursitis of right shoulder November 26, 2024 9:29am Diabetes November 26, 2024 9:29 am Right shoulder pain November 26, 2024 9:29 am Adhesive bursitis of right shoulder January 02, 2025 9:24am Cervicalgia January 02, 2025 9:24 am Numbness and tingling in right hand January 02, 2025 9:24am Persistent headaches January 02, 2025 9:2 4am Reason for Visit Admit Date Cervicalgia October 02, 2024 11: 23am Numbness and tingling in right hand Apri l 2024 11:23am Persistent headaches October 02, 2024 11 :23am Right shoulder pain November 20, 2024 9:56a m Adhesive bursitis of right shoulder November 26, 2024 9:29am Diabetes November 26, 2024 9:29 am Right shoulder pain November 26, 2024 9:29 am Adhesive bursitis of right shoulder January 02, 2025 9:24am Cervicalgia January 02, 2025 9:24 am Numbness and tingling in right hand January 02, 2025 9:24am Persistent headaches January 02, 2025 9:2 4am Adhesive capsulitis of right shoulder Au 2024 10:12am Right shoulder pain January 27, 2025 10 :12am Reason for Referral Specialty Diagnoses / Procedures Referred By Kailyn caballero Referred To Contact Podiatry Diagnoses Controlled type 2 diabetes mellitus with diabetic neuropathy, without long-term current use of insulin (HCC) Procedures CONSULT TO PODIATRY OFFICE/OUTPATIENT [facility] 60-74 MINUTES Nacho Cornell, CONDUCTOR YARD.PAD ASSEMBLER [address] [place] [address] Referral ID Status Reason Start Date Expiration Date Visits Requested Visits Authorized [id number] Authorized PCP Requested Referral 01/24/2022 01/24/2023 1 1 Specialty Diagnoses / Procedures Referred By Kailyn caballero Referred To Contact Ophthalmology Diagnoses Screening for diabetic retinopathy Procedures CONSULT TO OPHTHALMOLOGY OFFICE/OUTPATIENT [facility] 60-74 MINUTES Nacho Cornell, CONDUCTOR YARD.PAD ASSEMBLER [address] [place] [address] Referral ID Status Reason Start Date Expiration Date Visits Requested Visits Authorized [id number] Authorized PCP Requested Referral 01/24/2022 01/24/2023 1 1 Specialty Diagnoses / Procedures Referred By Contac t Referred To Contact [facility] Diagnoses Asthma Procedures SPIROMETRY - BASELINE AND POST DILATOR BRNCDILAT RSPSE SPMTRY PRE&POST-BRNCDILAT ADMN Nacho Cornell, ALINA.PAD ASSEMBLER [address] [place] [address] [facility] [place] [address] [place] [address] Referral ID Status Reason Start Date Expiration Date Visits Requested Visits Authorized [id number] Pending Review Auto-Generat ed Referral 01/24/2022 02/23/2023 1 1 Specialty Diagnoses / Procedures Referred By Contac t Referred To Contact Diagnoses Type 2 diabetes mellitus with hyperglycemia, with long-term current use of insulin (HCC) Procedures CONSULT TO DIABETES EDUCATION OFFICE/OUTPATIENT [facility] 60-74 MINUTES Nacho Cornell, CONDUCTOR YARD.PAD ASSEMBLER [address] [place] [address] [facility] [address] [address] [place] [address] Referral ID Status Reason Start Date Expiration Date Visits Requested Visits Authorized [id number] Authorized PCP Requested Referral 02/01/2022 02/01/2023 1 1 Specialty Diagnoses / Procedures Referred By Kailyn t Referred To Contact Nacho Cornell, ALINA.PAD ASSEMBLER [address] [place] [address] Referral ID Status Reason Start Date Expiration Date V isits Requested Visits Authorized [id number] Pending Review 1 1 Referral ID Status Reason Start Date Expiration Date Visits Re quested Visits Authorized [id number] Closed 1 1 Referral ID Status Reason Start Date Expiration Date Visits Re quested Visits Authorized [id number] Closed 1 1 Specialty Diagnoses / Procedures Referred By Contac t Referred To Contact Diagnoses JAELYN (obstructive sleep apnea) Procedures CONSULT TO SLEEP MEDICINE - ADULT OFFICE/OUTPATIENT [facility] 60-74 MINUTES Nacho Cornell, CONDUCTOR YARD.PAD ASSEMBLER [address] [place] [address] Referral ID Status Reason Start Date Expiration Date Visits Requested Visits Authorized [id number] Authorized PCP Requested Referral 3 04/05/2024 1 1 Specialty Diagnoses / Procedures Referred By Kailyn caballero Referred To Contact MR IMAGING Diagnoses New daily persistent headache Procedures MRI BRAIN WO/W IVCON MRI BRAIN BRAIN STEM W/O W/CONTRAST MATERIAL Saima Mittal APRN.OYSTER GRADER [address] [place] [address] [place] [address] Referral ID Status Reason Start Date Expiration Date V isits Requested Visits Authorized [id number] Closed Auto-Generate d Referral 07/06/2023 09/04/2023 1 1 Specialty Diagnoses / Procedures Referred By Kailyn caballero Referred To Contact Diagnoses Type 2 diabetes mellitus with diabetic neuropathy, with long-term current use of insulin (HCC) Controlled type 2 diabetes mellitus with diabetic neuropathy, without long-term current use of insulin (HCC) Dino Evans MD [address] [place] [address] Referral ID Status Reason Start Date Expiration Date Visits Re quested Visits Authorized [id number] Closed 1 1 Additional Source Comments INFORMATION SOURCE (unrecogn ized section and content) DATE CREATED AUTHOR 12/12/2017 [facility] DATE CREATED AUTHOR AUTHOR'S ORGANIZ ATION 02/01/2019 [facility] DATE CREATED AUTHOR AUTHOR'S ORGANIZ ATION 04/26/[address] [facility] ([place]) DATE CREATED AUTHOR AUTHOR'S ORGANIZ ATION 04/15/2021 [facility] DATE CREATED AUTHOR AUTHOR'S ORGANIZ ATION 03/28/2023 [facility] DATE CREATED AUTHOR AUTHOR'S ORGANIZ ATION 12/08/2024 [facility] DATE CREATED AUTHOR AUTHOR'S ORGANIZ ATION 01/12/2025 [facility] DATE CREATED AUTHOR AUTHOR'S ORGANIZ ATION 02/21/2025 [facility] Source Comments (unrecognize d section and content) In the event this informatio n is protected by the Federal Confidentiality of Alcohol and Drug Abuse Patient Records regulations: The Federal rules restrict any use of the information to criminally investigate or prosecute any alcohol or drug abuse patient.[facility] the event this information is protected by the Federal Confidentiality of Alcohol and Drug Abuse Patient Records regulations: The Federal rules restrict any use of the information to criminally investigate or prosecute any alcohol or drug abuse patient.[facility] the event this information is protected by the Federal Confidentiality of Alcohol and Drug Abuse Patient Records regulations: The Federal rules restrict any use of the information to criminally investigate or prosecute any alcohol or drug abuse patient.[facility] the event this information is protected by the Federal Confidentiality of Alcohol and Drug Abuse Patient Records regulations: The Federal rules restrict any use of the information to criminally investigate or prosecute any alcohol or drug abuse patient.[facility] Memorial[facility] the event this information is protected by the Federal Confidentiality of Alcohol and Drug Abuse Patient Records regulations: The Federal rules restrict any use of the information to criminally investigate or prosecute any alcohol or drug abuse patient.[facility] MemorialIn the event this information is protected by the Federal Confidentiality of Alcohol and Drug Abuse Patient Records regulations: The Federal rules restrict any use of the information to criminally investigate or prosecute any alcohol or drug abuse patient.[facility] MemorialIn the event this information is protected by the Federal Confidentiality of Alcohol and Drug Abuse Patient Records regulations: The Federal rules restrict any use of the information to criminally investigate or prosecute any alcohol or drug abuse patient.[facility] MemorialIn the event this information is protected by the Federal Confidentiality of Alcohol and Drug Abuse Patient Records regulations: The Federal rules restrict any use of the information to criminally investigate or prosecute any alcohol or drug abuse patient.[facility] MemorialIn the event this information is protected by the Federal Confidentiality of Alcohol and Drug Abuse Patient Records regulations: The Federal rules restrict any use of the information to criminally investigate or prosecute any alcohol or drug abuse patient.[facility] MemorialIn the event this information is protected by the Federal Confidentiality of Alcohol and Drug Abuse Patient Records regulations: The Federal rules restrict any use of the information to criminally investigate or prosecute any alcohol or drug abuse patient.[facility] MemorialIn the event this information is protected by the Federal Confidentiality of Alcohol and Drug Abuse Patient Records regulations: The Federal rules restrict any use of the information to criminally investigate or prosecute any alcohol or drug abuse patient.[facility] MemorialIn the event this information is protected by the Federal Confidentiality of Alcohol and Drug Abuse Patient Records regulations: The Federal rules restrict any use of the information to criminally investigate or prosecute any alcohol or drug abuse patient.[facility] MemorialIn the event this information is protected by the Federal Confidentiality of Alcohol and Drug Abuse Patient Records regulations: The Federal rules restrict any use of the information to criminally investigate or prosecute any alcohol or drug abuse patient.[facility] MemorialIn the event this information is protected by the Federal Confidentiality of Alcohol and Drug Abuse Patient Records regulations: The Federal rules restrict any use of the information to criminally investigate or prosecute any alcohol or drug abuse patient.[facility] MemorialIn the event this information is protected by the Federal Confidentiality of Alcohol and Drug Abuse Patient Records regulations: The Federal rules restrict any use of the information to criminally investigate or prosecute any alcohol or drug abuse patient.[facility] MemorialIn the event this information is protected by the Federal Confidentiality of Alcohol and Drug Abuse Patient Records regulations: The Federal rules restrict any use of the information to criminally investigate or prosecute any alcohol or drug abuse patient.[facility] MemorialIn the event this information is protected by the Federal Confidentiality of Alcohol and Drug Abuse Patient Records regulations: The Federal rules restrict any use of the information to criminally investigate or prosecute any alcohol or drug abuse patient.[facility] MemorialIn the event this information is protected by the Federal Confidentiality of Alcohol and Drug Abuse Patient Records regulations: The Federal rules restrict any use of the information to criminally investigate or prosecute any alcohol or drug abuse patient.[facility] MemorialIn the event this information is protected by the Federal Confidentiality of Alcohol and Drug Abuse Patient Records regulations: The Federal rules restrict any use of the information to criminally investigate or prosecute any alcohol or drug abuse patient.[facility] MemorialIn the event this information is protected by the Federal Confidentiality of Alcohol and Drug Abuse Patient Records regulations: The Federal rules restrict any use of the information to criminally investigate or prosecute any alcohol or drug abuse patient.[facility] MemorialIn the event this information is protected by the Federal Confidentiality of Alcohol and Drug Abuse Patient Records regulations: The Federal rules restrict any use of the information to criminally investigate or prosecute any alcohol or drug abuse patient.[facility] MemorialIn the event this information is protected by the Federal Confidentiality of Alcohol and Drug Abuse Patient Records regulations: The Federal rules restrict any use of the information to criminally investigate or prosecute any alcohol or drug abuse patient.[facility] MemorialIn the event this information is protected by the Federal Confidentiality of Alcohol and Drug Abuse Patient Records regulations: The Federal rules restrict any use of the information to criminally investigate or prosecute any alcohol or drug abuse patient.[facility] MemorialIn the event this information is protected by the Federal Confidentiality of Alcohol and Drug Abuse Patient Records regulations: The Federal rules restrict any use of the information to criminally investigate or prosecute any alcohol or drug abuse patient.[facility] MemorialIn the event this information is protected by the Federal Confidentiality of Alcohol and Drug Abuse Patient Records regulations: The Federal rules restrict any use of the information to criminally investigate or prosecute any alcohol or drug abuse patient.[facility] MemorialIn the event this information is protected by the Federal Confidentiality of Alcohol and Drug Abuse Patient Records regulations: The Federal rules restrict any use of the information to criminally investigate or prosecute any alcohol or drug abuse patient.[facility] MemorialIn the event this information is protected by the Federal Confidentiality of Alcohol and Drug Abuse Patient Records regulations: The Federal rules restrict any use of the information to criminally investigate or prosecute any alcohol or drug abuse patient.[facility] MemorialIn the event this information is protected by the Federal Confidentiality of Alcohol and Drug Abuse Patient Records regulations: The Federal rules restrict any use of the information to criminally investigate or prosecute any alcohol or drug abuse patient.[facility] MemorialIn the event this information is protected by the Federal Confidentiality of Alcohol and Drug Abuse Patient Records regulations: The Federal rules restrict any use of the information to criminally investigate or prosecute any alcohol or drug abuse patient.[facility] MemorialIn the event this information is protected by the Federal Confidentiality of Alcohol and Drug Abuse Patient Records regulations: The Federal rules restrict any use of the information to criminally investigate or prosecute any alcohol or drug abuse patient.[facility] MemorialIn the event this information is protected by the Federal Confidentiality of Alcohol and Drug Abuse Patient Records regulations: The Federal rules restrict any use of the information to criminally investigate or prosecute any alcohol or drug abuse patient.[facility] MemorialIn the event this information is protected by the Federal Confidentiality of Alcohol and Drug Abuse Patient Records regulations: The Federal rules restrict any use of the information to criminally investigate or prosecute any alcohol or drug abuse patient.[facility] MemorialIn the event this information is protected by the Federal Confidentiality of Alcohol and Drug Abuse Patient Records regulations: The Federal rules restrict any use of the information to criminally investigate or prosecute any alcohol or drug abuse patient.[facility] MemorialIn the event this information is protected by the Federal Confidentiality of Alcohol and Drug Abuse Patient Records regulations: The Federal rules restrict any use of the information to criminally investigate or prosecute any alcohol or drug abuse patient.[facility] MemorialIn the event this information is protected by the Federal Confidentiality of Alcohol and Drug Abuse Patient Records regulations: The Federal rules restrict any use of the information to criminally investigate or prosecute any alcohol or drug abuse patient.[facility] MemorialIn the event this information is protected by the Federal Confidentiality of Alcohol and Drug Abuse Patient Records regulations: The Federal rules restrict any use of the information to criminally investigate or prosecute any alcohol or drug abuse patient.[facility] MemorialIn the event this information is protected by the Federal Confidentiality of Alcohol and Drug Abuse Patient Records regulations: The Federal rules restrict any use of the information to criminally investigate or prosecute any alcohol or drug abuse patient.[facility] MemorialIn the event this information is protected by the Federal Confidentiality of Alcohol and Drug Abuse Patient Records regulations: The Federal rules restrict any use of the information to criminally investigate or prosecute any alcohol or drug abuse patient.[facility] MemorialIn the event this information is protected by the Federal Confidentiality of Alcohol and Drug Abuse Patient Records regulations: The Federal rules restrict any use of the information to criminally investigate or prosecute any alcohol or drug abuse patient.[facility] MemorialIn the event this information is protected by the Federal Confidentiality of Alcohol and Drug Abuse Patient Records regulations: The Federal rules restrict any use of the information to criminally investigate or prosecute any alcohol or drug abuse patient.[facility] MemorialIn the event this information is protected by the Federal Confidentiality of Alcohol and Drug Abuse Patient Records regulations: The Federal rules restrict any use of the information to criminally investigate or prosecute any alcohol or drug abuse patient.[facility] MemorialIn the event this information is protected by the Federal Confidentiality of Alcohol and Drug Abuse Patient Records regulations: The Federal rules restrict any use of the information to criminally investigate or prosecute any alcohol or drug abuse patient.[facility] MemorialIn the event this information is protected by the Federal Confidentiality of Alcohol and Drug Abuse Patient Records regulations: The Federal rules restrict any use of the information to criminally investigate or prosecute any alcohol or drug abuse patient.[facility] MemorialIn the event this information is protected by the Federal Confidentiality of Alcohol and Drug Abuse Patient Records regulations: The Federal rules restrict any use of the information to criminally investigate or prosecute any alcohol or drug abuse patient.[facility] MemorialIn the event this information is protected by the Federal Confidentiality of Alcohol and Drug Abuse Patient Records regulations: The Federal rules restrict any use of the information to criminally investigate or prosecute any alcohol or drug abuse patient.[facility] MemorialIn the event this information is protected by the Federal Confidentiality of Alcohol and Drug Abuse Patient Records regulations: The Federal rules restrict any use of the information to criminally investigate or prosecute any alcohol or drug abuse patient.[facility] MemorialIn the event this information is protected by the Federal Confidentiality of Alcohol and Drug Abuse Patient Records regulations: The Federal rules restrict any use of the information to criminally investigate or prosecute any alcohol or drug abuse patient.[facility] MemorialIn the event this information is protected by the Federal Confidentiality of Alcohol and Drug Abuse Patient Records regulations: The Federal rules restrict any use of the information to criminally investigate or prosecute any alcohol or drug abuse patient.[facility] MemorialIn the event this information is protected by the Federal Confidentiality of Alcohol and Drug Abuse Patient Records regulations: The Federal rules restrict any use of the information to criminally investigate or prosecute any alcohol or drug abuse patient.[facility] MemorialIn the event this information is protected by the Federal Confidentiality of Alcohol and Drug Abuse Patient Records regulations: The Federal rules restrict any use of the information to criminally investigate or prosecute any alcohol or drug abuse patient.[facility] MemorialIn the event this information is protected by the Federal Confidentiality of Alcohol and Drug Abuse Patient Records regulations: The Federal rules restrict any use of the information to criminally investigate or prosecute any alcohol or drug abuse patient.[facility] MemorialIn the event this information is protected by the Federal Confidentiality of Alcohol and Drug Abuse Patient Records regulations: The Federal rules restrict any use of the information to criminally investigate or prosecute any alcohol or drug abuse patient.[facility] Reason for Visit (unrecogniz ed section and [...] Request 12/12/2022 Reason Comments Diabetes 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 Specialty Diagnoses / Procedures Referred By Contac t Referred To Contact Diagnoses JAELYN (obstructive sleep apnea) Procedures CONSULT TO SLEEP MEDICINE - ADULT OFFICE/OUTPATIENT NEW HIGH MDM 60-74 MINUTES Nacho Cornell, CONDUCTOR YARD.PAD ASSEMBLER [address] [place] [address] Referral ID Status Reason Start Date Expiration Date V isits Requested Visits Authorized [id number] Closed PCP Requested Referral 04/06/2023 04/05/2024 1 1 Specialty Diagnoses / Procedures Referred By Kailyn caballero Referred To Contact MR IMAGING Diagnoses New daily persistent headache Procedures MRI BRAIN WO/W IVCON MRI BRAIN BRAIN STEM W/O W/CONTRAST MATERIAL Saima Mittal APRN.OYSTER GRADER [address] [place] [address] [place] [address] Referral ID Status Reason Start Date Expiration Date V isits Requested Visits Authorized [id number] Closed Auto-Generate d Referral 07/06/2023 09/04/2023 1 1 Reason Comments High Blood Sugar Reason Comments Headaches Cough Diabetes Reason Comments Medication Problem Reason Onset Date Comments Refill Request 08/15/2023 Reason Comments Letter Emotional support an imal Care Teams (unrecognized sec tion and content) Bioanalyst Relationship Specialty Start Date End Date Dino Evans MD [address] [place] [address] PCP - General Internal Medicine [facility] [address] [place] [address] Pharmacist Pharmacy 01/28/20 Bioanalyst Relationship Specialty Start Date End Date Dino Evans MD [address] [place] [address] PCP - General Internal Medicine 01/15/16 [facility] [address] [place] [address] Pharmacist Pharmacy 01/28/20 Bioanalyst Relationship Specialty Start Date End Date Dino Evans MD [address] [place] [address] PCP - General Internal Medicine 01/15/16 [facility] [address] [place] [address] Pharmacist Pharmacy 01/28/20 Bioanalyst Relationship Specialty Start Date End Date Dino Evans MD [address] [facility] [address] PCP - General Internal Medicine 01/15/16 Leon Bernstein, [facility]ly [facility] [address] [facility] [address] Pharmacist Pharmacy 01/28/20 Bioanalyst Relationship Specialty Start Date End Date Dino Evans MD [address] [place] [address] PCP - General Internal Medicine 01/15/16 Leon Bernstein, [facility] [address] [facility] [place] [address] Pharmacist Pharmacy 01/28/20 Bioanalyst Relationship Specialty Start Date End Date Dino Evans MD [address] [facility] [place] [address] PCP - General Internal Medicine 01/15/16 Leon Bernstein, [facility]ly [facility] [address] [facility] [place] [address] Pharmacist Pharmacy 01/28/20 Bioanalyst Relationship Specialty Start Date End Date Dino Evans MD [address] [place] [address] PCP - General Internal Medicine 01/15/16 Leon Bernstein, [facility] [address] [facility] [place] [address] Pharmacist Pharmacy 01/28/20 Bioanalyst Relationship Specialty Start Date End Date Dino Evans MD [address] [place] [address] PCP - General Internal Medicine 01/15/16 [facility] [address] [place] [address] Pharmacist Pharmacy 01/28/20 Bioanalyst Relationship Specialty Start Date End Date Dino Evans MD [address] [place] [address] PCP - General Internal Medicine 01/15/16 [facility] [address] [place] [address] Pharmacist Pharmacy 01/28/20 Bioanalyst Relationship Specialty Start Date End Date Dino Evans MD [address] [place] [address] PCP - General Internal Medicine 01/15/16 [facility] [address] [place] [address] Pharmacist Pharmacy 01/28/20 Bioanalyst Relationship Specialty Start Date End Date Dino Evans MD [address] [place] [address] PCP - General Internal Medicine 01/15/16 [facility] [address] [place] [address] Pharmacist Pharmacy 01/28/20 Bioanalyst Relationship Specialty Start Date End Date Dino Evans MD [address] [place] [address] PCP - General Internal Medicine 01/15/16 [facility] [address] [place] [address] Pharmacist Pharmacy 01/28/20 Bioanalyst Relationship Specialty Start Date End Date Dino Evans MD [address] [place] [address] PCP - General Internal Medicine 01/15/16 Braxton Modi, Formerly [facility] [address] [place] [address] Pharmacy 12/14/22 Bioanalyst Relationship Specialty Start Date End Date Dino Evans MD [address] [place] [address] PCP - General Internal Medicine 01/15/16 Braxton Modi, [facility] [address] [place] [address] Pharmacy 12/14/22 Team Status: Active Member Role Status Dates Dr. Dino Evans MD Family Provider Active Dr. Dino Evans MD Primary Care Provider Active Team Status: Inactive Member Role Status Dates Dr. Dino Evans MD Primary Care Provider Active Dr. Mathew Santiago MD Emergency Provider Active Bioanalyst Relationship Specialty Start Date End Date Dino Evans MD [address] [place] [address] PCP - General Internal Medicine 01/15/16 Braxton Modi, [facility] [address] [facility] [address] Pharmacy 12/14/22 Bioanalyst Relationship Specialty Start Date End Date Dino Evans MD [address] [place] [address] PCP - General Internal Medicine 01/15/16 Braxton Modi, Formerly [facility] [address] [place] [address] Pharmacy 12/14/22 Bioanalyst Relationship Specialty Start Date End Date Dino Evans MD [address] [place] [address] PCP - General Internal Medicine 01/15/16 Braxton Modi, [facility] [address] [facility] [place] [address] Pharmacy 12/14/22 Bioanalyst Relationship Specialty Start Date End Date Dino Evans MD [address] [place] [address] PCP - General Internal Medicine 01/15/16 Braxton Modi, Formerly [facility] [address] [facility] [address] Pharmacy 12/14/22 Bioanalyst Relationship Specialty Start Date End Date Dino Evans MD [address] [place] [address] PCP - General Internal Medicine 01/15/16 Braxton Modi, Former[facility] [address] [facility] [address] Pharmacy 12/14/22 Bioanalyst Relationship Specialty Start Date End Date Dino Evans MD [address] [place] [address] PCP - General Internal Medicine 01/15/16 Braxton Modi, [facility] [address] [facility] [place] [address] Pharmacy 12/14/22 Bioanalyst Relationship Specialty Start Date End Date Dino Evans MD [address] [place] [address] PCP - General Internal Medicine 01/15/16 [place] [address] [facility] [address] Pharmacy 12/14/22 Team Status: Inactive Member Role Status Dates Dr. Dino Evans MD Primary Care Provider, Attend ing Provider Active Team Status: Inactive Member Role Status Dates Dr. Dino Evans MD Primary Care Provider Active Dr. Mathew Santiago MD Attending Provider, Emergency Provi denny Active Bioanalyst Relationship Specialty Start Date End Date Dino Evans MD [address] [place] [address] PCP - General Internal Medicine 01/15/16 [facility] [address] [place] [address] Pharmacy 12/14/22 Bioanalyst Relationship Specialty Start Date End Date Dino Evans MD [address] [place] [address] PCP - General Internal Medicine 01/15/16 [facility] [address] [place] [address] Pharmacy 12/14/22 Bioanalyst Relationship Specialty Start Date End Date Dino Evans MD [address] [place] [address] PCP - General Internal Medicine 01/15/16 [facility] [address] [facility] [place] [address] Pharmacy 12/14/22 Bioanalyst Relationship Specialty Start Date End Date Dino Evans MD [address] [place] [address] PCP - General Internal Medicine 01/15/16 Braxton Modi, [facility] [address] [place] [address] Pharmacy 12/14/22 Team Status: Inactive Member Role Status Dates Dr. Dino Evans MD Primary Care Provider Active Dr. Sukumar Stanton DO Emergency Provider Active Bioanalyst Relationship Specialty Start Date End Date Dino Evans MD [address] [place] [address] PCP - General Internal Medicine 01/15/16 [facility] [address] [place] [address] Pharmacy 12/14/22 Bioanalyst Relationship Specialty Start Date End Date Dino Evans MD [address] [place] [address] PCP - General Internal Medicine 01/15/16 Braxton Modi, [facility] [address] [place] [address] Pharmacy 12/14/22 Bioanalyst Relationship Specialty Start Date End Date Dino Evans MD [address] [place] [address] PCP - General Internal Medicine 01/15/16 Braxton Modi, [facility] [address] [place] [address] Pharmacy 12/14/22 Bioanalyst Relationship Specialty Start Date End Date Dino Evans MD [address] [place] [address] PCP - General Internal Medicine 01/15/16 Braxton Modi, [facility] [address] [facility] [place] [address] Pharmacy 12/14/22 Bioanalyst Relationship Specialty Start Date End Date Dino Evans MD [address] [place] [address] PCP - General Internal Medicine 01/15/16 [facility] [address] [facility] [address] Pharmacy 12/14/22 Bioanalyst Relationship Specialty Start Date End Date Dino Evans MD [address] [place] [address] PCP - General Internal Medicine 01/15/16 [facility] [address] [facility] [address] Pharmacy 12/14/22 Team Status: Active Member Role Status Dates Dr. Dnio Evans MD Family Provider Active Dr. Sophie Huitron MD Primary Care Provider Active Team Status: Inactive Member Role Status Dates Dr. Sophie Huitron MD Primary Care Prov ider, Attending Provider, Referring Provider Active Team Status: Inactive Member Role Status Dates Dr. Dino Evans MD Primary Care Provider Active Dr. Sukumar Stanton DO Attending Provider, Emergency Provider Active Bioanalyst Relationship Specialty Start Date End Date Dino Evans MD [address] [place] [address] PCP - General Internal Medicine 01/15/16 Leon Bernstein, Formerly [facility] [address] [place] [address] Pharmacist Pharmacy 01/28/20 12/13/22 Bioanalyst Relationship Specialty Start Date End Date Dino Evans MD [address] [place] [address] PCP - General Internal Medicine 01/15/16 Leon Bernstein, [facility] [address] [facility] [place] [address] Pharmacist Pharmacy 01/28/20 12/13/22 Bioanalyst Relationship Specialty Start Date End Date Dino Evans MD [address] [place] [address] PCP - General Internal Medicine 01/15/16 Braxton Modi, [facility] [address] [facility] [address] Pharmacy 12/14/22 Nacho Cornell, CONDUCTOR YARD.PAD ASSEMBLER [address] [place] [address] [facility]er Internal Medicine 05/27/24 Saima Mittal CONDUCTOR YARD.OYSTER GRADER [address] [place] [address] Ham Stringer Internal Medicine 05/27/24 Bioanalyst Relationship Specialty Start Date End Date Dino Evans MD [address] [place] [address] PCP - General Internal Medicine 01/15/16 Braxton Modi, [facility] [address] [place] [place] [address] Pharmacy 12/14/22 Nacho Cornell, CONDUCTOR YARD.PAD ASSEMBLER [address] [place] [address] [facility] Internal Medicine 05/27/24 Saima Mittal APRN.OYSTER GRADER [address] [place] [address] [facility] Internal Medicine 09/10/24 Team Status: Active Member [...] October 02, 2024 End: October 02, 2024 REAGAN Brice Attending Provider Active S tart: October 02, [...] November 12, 2024 End: November 12, 2024 REAGAN Brice Attending Provider Active S tart: November 12, 2024 End: November 12, 2024 REAGAN Brice Referring Provider Active S tart: November 12, 2024 End: November 12, 2024 Team Status: Active Member Role Status Dates Dr. Sophie Huitron MD Primary Care Provider Active Start: November 12, 2024 REAGAN Brice Referring Provider Active S tart: November 12, 2024 REAGAN Brice Other Provider Active Start : November 12, [...] November 26, 2024 End: November 26, 2024 Bioanalyst Relationship Specialty Start Date End Date Dino Evans MD [address] [place] [address] PCP - General Internal Medicine 01/15/16 Braxton Modi, [facility] [address] [place] [address] Pharmacy 12/14/22 Nacho Cornell APRN.PAD ASSEMBLER [address] [place] [address] [facility] Internal Medicine 05/27/24 11/05/24 Saima Mittal CONDUCTOR YARD.OYSTER GRADER [address] [place] [address] [facility] Internal Medicine 09/10/24 Nacho Cornell, CONDUCTOR YARD.PAD ASSEMBLER [address] [place] [address] [facility] Internal Medicine 11/06/24 Team Status: Active Member Role Status Dates Dr. Sophie Huitron MD Primary Care Provider Active Start: December 02, 2024 Mendel Heredia MD Attending Provider Active St art: December 02, 2024 Mendel Heredia MD Referring Provider Active St art: December 02, 2024 Team Status: Inactive Member Role Status Dates Dr. Sophie Huitron MD Primary Care Provider Active Start: December 08, 2024 End: December 08, 2024 Dr. Mathew Santiago MD Emergency Provider Active Sta rt: December 08, 2024 End: December 08, 2024 Team Status: Active Member Role/Relationship Status Dates Dr. Sophie Huitron MD Primary Care Provider Active Team Status: Inactive Member Role/Relationship Status Dates Dr. Sophie Huitron MD Primary Care Provider Active Start: September 10, 2024 End: September 10, 2024 Dr. Sophie Huitron MD Referring Provider Active Start: September 10, 2024 End: September 10, 2024 Dr. Efe Moss MD Attending Provider Active Start: September 10, 2024 End: September 10, 2024 Team Status: Inactive Member Role/Relationship Status Dates Dr. Sophie Huitron MD Primary Care Provider Active Start: September 14, 2024 End: September 14, 2024 REAGAN Brice Attending Provider Active S tart: September 14, 2024 End: September 14, 2024 REAGAN Brice Referring Provider Active S tart: September 14, 2024 End: September 14, 2024 Team Status: Inactive Member Role/Relationship Status Dates Dr. Sophie Huitron MD Primary Care Provider Active Start: September 23, 2024 End: September 23, 2024 Dr. Sophie Huitron MD Attending Provider Active Start: September 23, 2024 End: September 23, 2024 Dr. Sophie Huitron MD Referring Provider Active Start: September 23, 2024 End: September 23, 2024 Team Status: Inactive Member Role/Relationship Status Dates Dr. Sophie Huitron MD Primary Care Provider Active Start: October 02, 2024 End: October 02, 2024 Dr. Sophie Huitron MD Referring Provider Active Start: October 02, 2024 End: October 02, 2024 REAGAN Brice Attending Provider Active S tart: October 02, 2024 End: October 02, 2024 Team Status: Inactive Member Role/Relationship Status Dates Dr. Sophie Huitron MD Primary Care Provider Active Start: October 11, 2024 End: October 11, 2024 Dr. Sophie Huitron MD Attending Provider Active Start: October 11, 2024 End: October 11, 2024 Dr. Sophie Huitron MD Referring Provider Active Start: October 11, 2024 End: October 11, 2024 Team Status: Inactive Member Role/Relationship Status Dates Dr. Sophie Huitron MD Primary Care Provider Active Start: November 08, 2024 End: November 08, 2024 Dr. Alhaji Piper DO Attending Provider Active Start: November 08, 2024 End: November 08, 2024 Dr. Alhaji Piper DO Emergency Provider Active Start: November 08, 2024 End: November 08, 2024 Team Status: Inactive Member Role/Relationship Status Dates Dr. Sophie Huitron MD Primary Care Provider Active Start: November 12, 2024 End: November 12, 2024 REAGAN Brice Attending Provider Active S tart: November 12, 2024 End: November 12, 2024 REAGAN Brice Referring Provider Active S tart: November 12, 2024 End: November 12, 2024 Team Status: Active Member Role/Relationship Status Dates Dr. Sophie Huitron MD Primary Care Provider Active Start: November 12, 2024 REAGAN Brice Referring Provider Active S tart: November 12, 2024 REAGAN Brice Other Provider Active Start : November 12, 2024 Dr. Geneva Meneses MD Attending Provider Active Start: November 12, 2024 Team Status: Inactive Member Role/Relationship Status Dates Dr. Sophie Huitron MD Primary Care Provider Active Start: November 20, 2024 End: November 20, 2024 Dr. Sophie Huitron MD Referring Provider Active Start: November 20, 2024 End: November 20, 2024 REAGAN Brice Attending Provider Active S tart: November 20, 2024 End: November 20, 2024 Team Status: Inactive Member Role/Relationship Status Dates Dr. Sophie Huitron MD Primary Care Provider Active Start: November 26, 2024 End: November 26, 2024 Dr. Sophie Huitron MD Referring Provider Active Start: November 26, 2024 End: November 26, 2024 Mendel Heredia MD Attending Provider Active St art: November 26, 2024 End: November 26, 2024 Team Status: Inactive Member Role/Relationship Status Dates Dr. Sophie Huitron MD Primary Care Provider Active Start: November 26, 2024 End: November 26, 2024 Dr. Tyrell Mo MD Attending Provider Active S tart: November 26, 2024 End: November 26, 2024 Team Status: Inactive Member Role/Relationship Status Dates Dr. Sophie Huitron MD Primary Care Provider Active Start: December 08, 2024 End: December 08, 2024 Dr. Mathew Santiago MD Attending Provider Active Sta rt: December 08, 2024 End: December 08, 2024 Dr. Mathew Santiago MD Emergency Provider Active Sta rt: December 08, 2024 End: December 08, 2024 Team Status: Active Member Role/Relationship Status Dates Dr. Sophie Huitron MD Primary Care Provider Active Start: January 01, 2025 Mendel Heredia MD Attending Provider Active St art: January 01, 2025 Mendel Heredia MD Referring Provider Active St art: January 01, 2025 Team Status: Inactive Member Role/Relationship Status Dates Dr. Sophie Huitron MD Primary Care Provider Active Start: January 02, 2025 End: January 02, 2025 Dr. Sophie Huitron MD Referring Provider Active Start: January 02, 2025 End: January 02, 2025 REAGAN Brice Attending Provider Active S tart: January 02, 2025 End: January 02, 2025 Team Status: Inactive Member Role/Relationship Status Dates Dr. Sophie Huitron MD Primary Care Provider Active Start: October 02, 2024 End: October 02, 2024 Dr. Sophie Huitron MD Referring Provider Active Start: October 02, 2024 End: October 02, 2024 REAGAN Brice Attending Provider Active S tart: October 02, 2024 End: October 02, 2024 Team Status: Inactive Member Role/Relationship Status Dates Dr. Sophie Huitron MD Primary Care Provider Active Start: October 11, 2024 End: October 11, 2024 Dr. Sophie Huitron MD Attending Provider Active Start: October 11, 2024 End: October 11, 2024 Dr. Sophie Huitron MD Referring Provider Active Start: October 11, 2024 End: October 11, 2024 Team Status: Inactive Member Role/Relationship Status Dates Dr. Sophie Huitron MD Primary Care Provider Active Start: November 08, 2024 End: November 08, 2024 Dr. Alhaji Piper DO Attending Provider Active Start: November 08, 2024 End: November 08, 2024 Dr. Alhaji Piper DO Emergency Provider Active Start: November 08, 2024 End: November 08, 2024 Team Status: Inactive Member Role/Relationship Status Dates Dr. Sophie Huitron MD Primary Care Provider Active Start: November 12, 2024 End: November 12, 2024 REAGAN Brice Attending Provider Active S tart: November 12, 2024 End: November 12, 2024 REAGAN Brice Referring Provider Active S tart: November 12, 2024 End: November 12, 2024 Team Status: Active Member Role/Relationship Status Dates Dr. Sophie Huitron MD Primary Care Provider Active Start: November 12, 2024 REAGAN Brice Referring Provider Active S tart: November 12, 2024 REAGAN Brice Other Provider Active Start : November 12, 2024 Dr. Geneva Meneses MD Attending Provider Active Start: November 12, 2024 Team Status: Inactive Member Role/Relationship Status Dates Dr. Sophie Huitron MD Primary Care Provider Active Start: November 20, 2024 End: November 20, 2024 Dr. Sophie Huitron MD Referring Provider Active Start: November 20, 2024 End: November 20, 2024 REAGAN Brice Attending Provider Active S tart: November 20, 2024 End: November 20, 2024 Team Status: Inactive Member Role/Relationship Status Dates Dr. Sophie Huitron MD Primary Care Provider Active Start: November 26, 2024 End: November 26, 2024 Dr. Sophie Huitron MD Referring Provider Active Start: November 26, 2024 End: November 26, 2024 Mendel eHredia MD Attending Provider Active St art: November 26, 2024 End: November 26, 2024 Team Status: Inactive Member Role/Relationship Status Dates Dr. Sophie Huitron MD Primary Care Provider Active Start: November 26, 2024 End: November 26, 2024 Dr. Tyrell Mo MD Attending Provider Active S tart: November 26, 2024 End: November 26, 2024 Team Status: Inactive Member Role/Relationship Status Dates Dr. Sophie Huitron MD Primary Care Provider Active Start: December 08, 2024 End: December 08, 2024 Dr. Mathew Santiago MD Attending Provider Active Sta rt: December 08, 2024 End: December 08, 2024 Dr. Mathew Santiago MD Emergency Provider Active Sta rt: December 08, 2024 End: December 08, 2024 Team Status: Inactive Member Role/Relationship Status Dates Dr. Sophie Huitron MD Primary Care Provider Active Start: January 02, 2025 End: January 02, 2025 Dr. Sophie Huitron MD Referring Provider Active Start: January 02, 2025 End: January 02, 2025 JESSICA BriceC Attending Provider Active S tart: January 02, 2025 End: January 02, 2025 Team Status: Active Member Role/Relationship Status Dates Dr. Sophie Huitron MD Primary Care Provider Active Start: January 22, 2025 REAGAN Mary Attending Provider Active St art: January 22, 2025 REAGAN Mary Referring Provider Active St art: January 22, 2025 Team Status: Active Member Role/Relationship Status Dates Dr. Sophie Huitron MD Primary Care Provider Active Start: January 27, 2025 Mendel Heredia MD Attending Provider Active St art: January 27, 2025 Mendel Heredia MD Referring Provider Active St art: January 27, 2025 Team Status: Inactive Member Role/Relationship Status Dates Dr. Sophie Huitron MD Primary Care Provider Active Start: January 27, 2025 End: January 27, 2025 Dr. Sophie Huitron MD Referring Provider Active Start: January 27, 2025 End: January 27, 2025 Mendel Heredia MD Attending Provider Active St art: January 27, 2025 End: January 27, 2025 Team Status: Inactive Member Role/Relationship Status Dates Dr. Sophie Huitron MD Primary Care Provider Active Start: January 22, 2025 End: January 22, 2025 REAGAN Mary Attending Provider Active St art: January 22, 2025 End: January 22, 2025 REAGAN Mary Referring Provider Active St art: January 22, 2025 End: January 22, 2025 Goals (unrecognized section and content) Goals may [...] BE BASED ON THE PRIMARY CLINICAL RECORDS. [facility] [employer] [facility]. provides no warranty or guarantee of the accuracy or completeness of information in this document.
--- NOTE | 2025-02-22 08:56 | MRI_ITS ---
PROCEDURE: UPPER EXT JOINT ONLY(ROUTINE) 02/22/2025 REASON FOR EXAM: PAIN, ADHESIVE CAPSULITIS TECHNIQUE: Procedure Code: MRIUEJ Modality: MR Procedure: UPPER EXT JOINT ONLY(ROUTINE) Multiplanar and multisequence images were obtained without IV contrast administration. COMPARISON: none FINDINGS: The supraspinatus tendon shows intrasubstance high signal abutting its articular surface. No evidence of complete fibers interruption. Thickening and intrasubstance high signal of the subscapularis tendon. No evidence of complete fibers interruption. The teres minor and infraspinatus tendons appear intact. High signal of the intra-articular segment of the long head of biceps tendon. No obvious glenoid labral tears. Degenerative arthropathic changes of the acromioclavicular joint evident by marginal osteophytic lipping, cortical irregularities and subcortical marrow edema of its opposing articular surfaces with hypertrophied edematous joint capsule inducing subacromial impingement. Intact glenohumeral joint. Minimal glenohumeral joint effusion Minimal fluid signal distending the subacromial/subdeltoid bursa. Mild thickening and edema of rotator interval capsule and inferior glenohumeral ligament, possibly adhesive capsulitis. Advise clinical correlation. Focal cortical irregularities and subcortical pseudocysts humeral head/greater tuberosity. No marrow infiltrative lesions. The neurovascular bundles appear unremarkable. 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 Supraspinatus tendonitis with partial thickness tear. Subscapularis tendonitis. Tendonitis of the long head of biceps tendon. Minimal glenohumeral joint effusion with small subacromial/subdeltoid bursitis. Mild thickening and edema of rotator interval capsule and inferior glenohumeral ligament, possibly adhesive capsulitis. Advise clinical correlation. [facility]
== END | disposition home or self-care (01) ==
LOC: MRI 08:26
PROVIDERS: PCP Family Medicine; Referring Provider Orthopaedic Surgery Sports Medicine; Visit Provider Orthopaedic Surgery Sports Medicine
DX: M75.01 Adhesive capsulitis of right shoulder (principal)
CPT/HCPCS: 73221

== ENCOUNTER 2025-04-09 09:13 | Day surgery (SDC) | payer MEDICARE, MEDICAID, SELFPAY ==
[2025-04-09] VITALS (11 sets, daily range): BP systolic 88–111; BP diastolic 62–72; PULSE 66–102; RESP 16–18; TEMP 36.4–36.5; O2SAT 93–98; BMI 38.2
--- NOTE | 2025-04-09 09:28 | PCM.PRE.AN2 ---
ASA Classification* ASA Classification ASA Classification: 2 Assessment & Plan Anesthesia* Anesthesia Assessment Anesthesia Assessment: Discussed sedation and/or anesthesia options, risks, benefits, and alternatives with patient/parents/legal guardian/POA. Questions invited. The patient/parents/legal guardian/POA seems to understand and agrees to proceed with anesthesia plan. Reviewed the physical assessment, medical history, allergy history and patient home medications list prior to surgery/procedure/anesthetic and documented any changes. Performed airway and anesthesia risk assessments. Anesthesia Type Anesthesia Type: General and Block Anesthesia Focused Assessment* Airway Assessment Mouth opens: >3 cm Mallampati Score: II Labs Anesthesia Preop lab: CBC WBC, (4.4-11.0) 10.4 K/mm3 11/08/24, 21:04 RBC, (4.2-5.4) 5.00 M/mm3 11/08/24, 21:04 Hgb, (12.0-15.0) 14.9 g/dL 11/08/24, 21:04 Hct, (37-47) 43.5 % 11/08/24, 21:04 Plt Count, (150-450) 208 K/mm3 11/08/24, 21:04 CHEMISTRY Potassium, (3.3-5.1) 3.5 mmol/L 11/08/24, 21:04 Sodium, (133-145) 139 mmol/L 11/08/24, 21:04 Magnesium, (1.6-2.6) 1.8 mg/dL 01/03/24, 07:10 Phosphorus, (2.5-4.9) 4.5 mg/dL 01/03/24, 07:10 BUN, (4-19) 17 mg/dL 11/08/24, 21:04 Creatinine, (0.70-1.20) 0.77 mg/dL 11/08/24, 21:04 Glucose, (70-99) 183 mg/dL H 11/08/24, 21:04 POC Glucose, (74-106) 204 mg/dL H 01/03/24, 16:39 TSH, (0.300-4.200) 1.190 uIU/mL 10/11/24, 09:49 COAG PT, (11.7-14.9) 15.4 SECONDS H 03/24/18, 06:30 Urine Test Negative Negative 01/10/24, 12:50 Pre-Assessment Diagnosis/Proposed Procedure Planned Operative Procedure(s): RIGHT SHOULDER ARTHROSCOPY, MANIPULATION UNDER ANESTHESIA Anesthesia History 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 When Was Last Pacemaker Check QUESTION #4 FULL TEXT: You/Your Family Experience fever (hyperthermia) with Anesthesia Last Oral Intake Last Oral intake: Last Oral Intake NPO since Meds taken in AM with sips of water? Meds patient instructed to take am of surgery PONV PONV - tram operator: PONV - tram operator Female Yes 04/07/25 10:44 HX of Motion Sickness No 04/07/25 10:44 HX of N/V After Surgery No 04/07/25 10:44 Non-Smoker No 04/07/25 10:44 Duration of Surgery greater Yes 04/07/25 10:44 than 60 minutes Number of Risk Factors 2 04/07/25 10:44 PONV Score Moderate Risk 04/07/25 10:44 Height & Weight Height & Weight: Anesthesia: Height & Weight Height 5 ft 03/24/25 09:24 Respiratory Assessment Respiratory Assessment - tram operator: Respiratory Tract Infection Hx - tram operator Hx Respiratory Tract Infection No 04/07/25 10:44 STOP Sleep Apnea STOP Sleep Apnea - tram operator: STOP Sleep Apnea - tram operator Hx Hypertension No 04/07/25 10:44 Hx Sleep Apnea Yes 04/07/25 10:44 CPAP No 04/07/25 10:44 BIPAP No 04/07/25 10:44 Do you snore loudly (louder than talking or can be heard Do you often feel tired/ fatigued/ sleepy during daytime? Has anyone observed you stop breathing during sleep? STOP Results Positive 04/07/25 10:44 QUESTION #5 FULL TEXT : Do you snore loudly (louder than talking or can be heard through closed doors)? 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 Specify any problems Hx of Preganancy in last 3 N/A 04/07/25 10:44 Months Nurse Filling Out Transfusion AIDA 04/07/25 10:44 & Questions: Date: 04/07/25 04/07/25 10:44 Time: 10:56 04/07/25 10:44 Patient unable to answer at this time (ie. confused, unrespo /Reproduction History /Reproductive History - tram operator: /Reproductive Hx- tram operator Hx Now Gestational Age (in weeks): EDC: Hx Hx Para Hx Section SAB No 04/07/25 10:44 Active Medications Active Medications: Current Medications Generic Name Dose Route Start Last Admin Trade Name Freq PRN Reason Stop Dose Admin Cefazolin Sodium 2 gm/ Sodium 110 mls @ 200 mls/hr 04/09/25 12:15 Chloride IV 04/09/25 12:47 INTRAOP ONE Lactated Ringer's 1,000 mls @ 15 mls/hr 04/09/25 09:30 IV .Q48H MARGRET PFSH Medical History Cancer Injury of head and neck Asthma Right rotator cuff tear Arthrosis of right acromioclavicular joint Adhesive capsulitis of right shoulder Adhesive bursitis of right shoulder History of tobacco use Encounter for screening for malignant neoplasm of lung Chronic headaches Diabetes Chronic pain Endometrial polyp Wears glasses Depression Anxiety Alcohol use Arthritis High cholesterol Injury of back Migraine headache Smoker CPAP (continuous positive airway pressure) dependence Sleep apnea History of stress test Hypertension Diabetes mellitus type 2 in obese Hypothyroidism Bipolar disorder Home Medications Medication Instructions Recorded Last Taken Type atorvastatin 10 mg tablet 10 mg PO DAILY cholesterol lowering 02/27/16 09/04/18 11:00 History levothyroxine 25 mcg tablet 25 mcg PO DAILY thyroid 02/27/16 01/28/21 08:00 History insulin glargine 100 unit/mL (3 18 unit SQ BREAKFAST 05/10/19 Unknown History mL) subcutaneous pen alpha lipoic acid 600 mg capsule 600 mg PO DAILY 01/21/21 Unknown History trazodone 300 mg tablet 300 mg PO QHS 01/21/21 Unknown History pregabalin 150 mg capsule 150 mg PO BID 01/03/24 Unknown History topiramate 50 mg tablet 50 mg PO Q12H 01/03/24 Unknown History trospium 20 mg tablet 20 mg PO QHS 01/03/24 Unknown History lidocaine 4 % topical patch 1 patch topical QDAY PRN pain #30 08/13/24 Unknown Rx (Salonpas (lidocaine)) ea cyanocobalamin (vitamin B-12) 1,000 mcg PO DAILY 11/08/24 Unknown History 1,000 mcg tablet docusate sodium 100 mg capsule 100 mg PO BID PRN 11/08/24 Unknown History magnesium oxide 500 mg PO DAILY 11/08/24 Unknown History semaglutide 0.25 mg or 0.5 mg (2 2 mg subcut QWEEK 11/20/24 03/23/25 History mg/3 mL) subcutaneous pen injector (Ozempic) arm brace (Elbow Compression #1 ea 01/02/25 Unknown Rx Sleeve) duloxetine 30 mg capsule,delayed 30 mg PO QDAY 03/03/25 Unknown History release ipratropium bromide 17 1 inh inhalation DAILY PRN 03/03/25 Unknown History mcg/actuation HFA aerosol inhaler shortness of breath or wheezing (Atrovent HFA) metformin 500 mg tablet 1,000 mg PO BID 03/03/25 Unknown History multivitamin 1 tab PO QDAY 03/03/25 Unknown History tizanidine 4 mg tablet 2 - 4 mg PO TID PRN muscle spasm 03/03/25 Unknown History tramadol 50 mg tablet 25 - 50 mg PO TID PRN pain 03/03/25 Unknown History Allergy/AdvReac Type Severity Reaction Status Date / Time latex Allergy Hives Verified 04/07/25 10:40 hydromorphone (From Dilaudid) AdvReac Vomiting Verified 04/07/25 10:40 Family History Mother , 58 Heart disease Diabetes COPD (chronic obstructive pulmonary disease) Father Heart disease Surgical History History of right knee surgery History of right knee surgery S/P hysterectomy History of appendectomy History of cholecystectomy History of back surgery Previous back surgery Hx of appendectomy History of cholecystectomy Social History current occupational status: unemployed pets and animals: Yes Smoking Status: Current every day smoker tobacco type: e-cigarettes alcohol intake: current details: Occasional substance use type: does not use caffeine: No do you feel safe at home: Yes Review of Systems (Anesthesia) ROS Narrative System reviewed and no additional complaints, except as documented.
[2025-04-09] MEDS: Lactated Ringers 1,000 ML 15 ML IV (09:41)
--- NOTE | 2025-04-09 11:22 | PCM.HP.STD ---
HPI - General HPI Narrative JODIE CHILEL, is a 54 F who presents for right shoulder arthroscopy, capsular release, manipulation under anesthetic. No changes to history and physical exam. Shoulder marked. Risks alternatives benefits discussed as well as postoperative instructions and narcotic counseling. The patient understands wished to proceed no further questions or concerns. MR#: [id number] Acct: [id number] Name: JODIE CHILEL Rep #: [id number] : 1970 Provider: Dr. Mendel Merida MD Age/Sex: 54/F Location: [facility] [place] Status: Signed with Addenda ADDENDUM by Dr. Mendel Merida MD on 03/20/25 at 1118 Assessment and Plan Assessment and Plan (1) Adhesive capsulitis of right shoulder: Status: Acute Plan: patient is a diabetic, hypothyroid female between the ages of 40-60. these 4 factors are all independent risk factors for developing adhesive capsulitis in the absence of an injury. This is not a case of "scar tissue" this is a case of thickening of the capsule consistent with an adhesive capsulitis which is commonly developed in the absence of trauma. Per the care source guidelines sent over email.. capsular release point 7. "one of the following are met" point C. is met (2) Right shoulder pain: Status: Acute Qualifiers: Chronicity: unspecified Qualified Code(s): M25.511 - Pain in right shoulder (3) Arthrosis of right acromioclavicular joint: Status: Acute (4) Right rotator cuff tear: Status: Acute Orders: Referrals Physical Therapy Referral M19.011 - Primary osteoarthritis, right shoulder, M75.01 - Adhesive capsulitis of right shoulder 03/20/25 1118 <Electronically signed by Mendel Merida MD> Date Mendel Merida MD cc: ~* Signed Intake Vital Signs 01/02/2509:28 Height 5 ft Weight: 199 lb BMI 38.8 BP 106/75 Blood Pressure Location Lt brachial Position Sitting Respiration 15 Pulse 96 Pulse Source Monitor Temp 98.2 F Temp Source Temporal Pulse Oximetry (%) 98 Oxygen Delivery Method room air Intake Visit Reasons: RIGHT SHOULDER Chief Complaint: MRI Review Accompanied by: Self Is patient in pain?: Yes Pain scale (1-10): 8 Allergies latex Allergy (Verified 03/03/25 11:31) Hives hydromorphone (From Dilaudid) Adverse Reaction (Verified 03/03/25 11:31) Vomiting Medications Medication Instructions Recorded Confirmed Type atorvastatin 10 mg tablet 10 mg PO DAILY cholesterol lowering 02/27/16 03/03/25 History levothyroxine 25 mcg tablet 25 mcg PO DAILY thyroid 02/27/16 03/03/25 History insulin glargine 100 unit/mL (3 18 unit SQ BREAKFAST 05/10/19 03/03/25 History mL) subcutaneous pen alpha lipoic acid 600 mg capsule 600 mg PO DAILY 01/21/21 03/03/25 History trazodone 300 mg tablet 300 mg PO QHS 01/21/21 03/03/25 History pregabalin 150 mg capsule 150 mg PO BID 01/03/24 03/03/25 History topiramate 50 mg tablet 50 mg PO Q12H 01/03/24 03/03/25 History trospium 20 mg tablet 20 mg PO QHS 01/03/24 03/03/25 History lidocaine 4 % topical patch 1 patch topical QDAY PRN pain #30 08/13/24 03/03/25 Rx (Salonpas (lidocaine)) ea cyanocobalamin (vitamin B-12) 1,000 mcg PO DAILY 11/08/24 03/03/25 History 1,000 mcg tablet docusate sodium 100 mg capsule 100 mg PO BID PRN 11/08/24 03/03/25 History magnesium oxide 500 mg PO DAILY 11/08/24 03/03/25 History semaglutide 0.25 mg or 0.5 mg (2 0.25 mg subcut QWEEK 11/20/24 03/03/25 History mg/3 mL) subcutaneous pen injector (Ozempic) arm brace (Elbow Compression #1 ea 01/02/25 01/27/25 Rx Sleeve) duloxetine 30 mg capsule,delayed 30 mg PO QDAY 03/03/25 03/03/25 History release ipratropium bromide 17 1 inh inhalation DAILY PRN 03/03/25 03/03/25 History mcg/actuation HFA aerosol inhaler (Atrovent HFA) metformin 500 mg tablet 1,000 mg PO BID 03/03/25 03/03/25 History multivitamin 1 tab PO QDAY 03/03/25 03/03/25 History tizanidine 4 mg tablet 2 - 4 mg PO TID PRN muscle spasm 03/03/25 03/03/25 History tramadol 50 mg tablet 25 - 50 mg PO TID PRN pain 03/03/25 03/03/25 History vortioxetine 20 mg tablet 20 mg PO QDAY 03/03/25 03/03/25 History (Trintellix) [facility] Medical History Right rotator cuff tear Arthrosis of right acromioclavicular joint Adhesive capsulitis of right shoulder Adhesive bursitis of right shoulder History of tobacco use Encounter for screening for malignant neoplasm of lung Chronic headaches Diabetes Chronic pain Endometrial polyp Wears glasses Depression Anxiety Alcohol use Arthritis High cholesterol Injury of back Migraine headache Smoker CPAP (continuous positive airway pressure) dependence Sleep apnea History of stress test Hypertension Diabetes mellitus type 2 in obese Hypothyroidism Bipolar disorder Asthma Surgical History S/P hysterectomy History of appendectomy History of cholecystectomy History of back surgery Previous back surgery Hx of appendectomy History of cholecystectomy Family History Mother , 58 Heart disease Diabetes COPD (chronic obstructive pulmonary disease) Father Heart disease Social History current occupational status: unemployed pets and animals: Yes Smoking Status: Current every day smoker tobacco type: e-cigarettes alcohol intake: current details: Occasional substance use type: does not use caffeine: No do you feel safe at home: Yes HPI RIGHT SHOULDER Details: This documentation accurately reflects the service provided and the decisions made by me, Dr. Mendel Merida MD 03/03/25 6622. Part of today’s visit was documented by [ ], acting as scribe. JODIE CHILEL is a 54 year old F here today for FU right shoulder MRI, adhesive capsulitis, and cortisone injection. Cortisone injection was over 3 months ago with minimal relief. Patient still has stiffness. They do have diabetes hemoglobin A1c around 7 takes about 10 units of insulin a day. No other medical problems. Failed over 6 months of conservative management therapy and still has stiffness in forward elevation. Normal On social security. Likes to do cassandra art. Supplemental Info [facility] [address] [place] [address] Upper Ext Joint Only(Routine) MR#: [id number] Acct: [id number] Name: JODIE CHILEL Rep #: [id number] : 1970 F 54 From: Paul Otero MD PCP: Dr. Sophie Huitron MD Status: REG CLI Study: Upper Ext Joint Only(Routine) Date of Exam: 02/22/25 Exam# [id number] Ordering Dr: Mendel Merida MD PROCEDURE: UPPER EXT JOINT ONLY(ROUTINE) 02/22/2025 REASON FOR EXAM: PAIN, ADHESIVE CAPSULITIS TECHNIQUE: Procedure Code: MRIUEJ Modality: MR Procedure: UPPER EXT JOINT ONLY(ROUTINE) Multiplanar and multisequence images were obtained without IV contrast administration. COMPARISON: none FINDINGS: The supraspinatus tendon shows intrasubstance high signal abutting its articular surface. No evidence of complete fibers interruption. Thickening and intrasubstance high signal of the subscapularis tendon. No evidence of complete fibers interruption. The teres minor and infraspinatus tendons appear intact. High signal of the intra-articular segment of the long head of biceps tendon. No obvious glenoid labral tears. Degenerative arthropathic changes of the acromioclavicular joint evident by marginal osteophytic lipping, cortical irregularities and subcortical marrow edema of its opposing articular surfaces with hypertrophied edematous joint capsule inducing subacromial impingement. Intact glenohumeral joint. Minimal glenohumeral joint effusion Minimal fluid signal distending the subacromial/subdeltoid bursa. Mild thickening and edema of rotator interval capsule and inferior glenohumeral ligament, possibly adhesive capsulitis. Advise clinical correlation. Focal cortical irregularities and subcortical pseudocysts humeral head/greater tuberosity. No marrow infiltrative lesions. The neurovascular bundles appear unremarkable. 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 Supraspinatus tendonitis with partial thickness tear. Subscapularis tendonitis. Tendonitis of the long head of biceps tendon. Minimal glenohumeral joint effusion with small subacromial/subdeltoid bursitis. Mild thickening and edema of rotator interval capsule and inferior glenohumeral ligament, possibly adhesive capsulitis. Advise clinical correlation. Reading Location: [place] [address] I independently reviewed the imaging. Concur with radiologist report. Coding Level of Care Code Off vis,est,level 4 Diagnoses Adhesive capsulitis of right shoulder M75.01 Right shoulder pain, unspecified chronicity M25.511 Chronicity: unspecified Arthrosis of right acromioclavicular joint M19.011 Right rotator cuff tear M75.101 Assessment and Plan Assessment and Plan (1) Adhesive capsulitis of right shoulder: Status: Acute Plan: 54-year-old female with a R shoulder adhesive capsulitis as well as a partial articular surface tear and tendinitis with AC joint arthrosis. Overall recommendation here is to address the adhesive capsulitis as that is the main issue beyond the small partial-thickness tear. Again we went over the follow-up diagnosis prognosis different treatment options including ongoing conservative management with which the patient has failed over 6 months of this at this point including injections and physical therapy and stretching. Patient would like to go ahead with surgery this would be in the form of a right shoulder arthroscopy, capsular release, manipulation under anesthetic. I cautioned the patient this can be painful and the need to start therapy immediately that day or the next day to avoid recurrence and stiffness. Also caution patient that given the diabetes higher risk of infection and recurrence as well as given the manipulation under anesthetic this can rarely result in a fracture of the humerus which may need additional surgical intervention. Patient understands wished to go ahead with surgery no further questions or concerns. Pros and cons risks and benefits were discussed with the patient including but not limited to infection, pain, stiffness, bleeding, damage to surrounding structures, neurovascular injury, recurrence or retear, failure or wear of hardware or fixation, instability, fracture, deep vein thrombosis and pulmonary embolism, anesthetic risks, , patient dissatisfaction, need for further surgery and other risks. Patient understood and wished to proceed with surgery, and signed the informed consent documentation. (2) Right shoulder pain: Status: Acute Qualifiers: Chronicity: unspecified Qualified Code(s): M25.511 - Pain in right shoulder (3) Arthrosis of right acromioclavicular joint: Status: Acute (4) Right rotator cuff tear: Status: Acute Ortho Exam General General: Yes no acute distress Neurologic: Yes alert and Yes oriented x3 Psychologic: Yes reasonable and appropriate Right Shoulder Skin/Wound: Yes CDI, No ecchymosis, No erythema and No swelling Testing: Positive Hawkin's, Neer's, TTP Biceps, TTP AC Joint and empty can; Negative Speed's, Drop Arm or scapular winging SHOULDER: normal motor and sens to ax nerve, and MRU and AIN/PIN Active and passive forward elevation 90 degrees external rotation 30 degrees. This is both actively and passively. Forward elevation strength 4+ PFSH Medical History Cancer Injury of head and neck Asthma Right rotator cuff tear Arthrosis of right acromioclavicular joint Adhesive capsulitis of right shoulder Adhesive bursitis of right shoulder History of tobacco use Encounter for screening for malignant neoplasm of lung Chronic headaches Diabetes Chronic pain Endometrial polyp Wears glasses Depression Anxiety Alcohol use Arthritis High cholesterol Injury of back Migraine headache Smoker CPAP (continuous positive airway pressure) dependence Sleep apnea History of stress test Hypertension Diabetes mellitus type 2 in obese Hypothyroidism Bipolar disorder Home Medications Medication Instructions Recorded Last Taken Type atorvastatin 10 mg tablet 10 mg PO DAILY cholesterol lowering 02/27/16 09/04/18 11:00 History levothyroxine 25 mcg tablet 25 mcg PO DAILY thyroid 02/27/16 04/09/25 06:00 History insulin glargine 100 unit/mL (3 18 unit SQ BREAKFAST 05/10/19 04/08/25 History mL) subcutaneous pen alpha lipoic acid 600 mg capsule 600 mg PO DAILY 01/21/21 Unknown History trazodone 300 mg tablet 300 mg PO QHS 01/21/21 Unknown History pregabalin 150 mg capsule 150 mg PO BID 01/03/24 04/09/25 History topiramate 50 mg tablet 50 mg PO Q12H 01/03/24 04/09/25 History trospium 20 mg tablet 20 mg PO QHS 01/03/24 Unknown History lidocaine 4 % topical patch 1 patch topical QDAY PRN pain #30 08/13/24 Unknown Rx (Salonpas (lidocaine)) ea cyanocobalamin (vitamin B-12) 1,000 mcg PO DAILY 11/08/24 Unknown History 1,000 mcg tablet docusate sodium 100 mg capsule 100 mg PO BID PRN 11/08/24 Unknown History magnesium oxide 500 mg PO DAILY 11/08/24 Unknown History semaglutide 0.25 mg or 0.5 mg (2 2 mg subcut QWEEK 11/20/24 03/23/25 History mg/3 mL) subcutaneous pen injector (Ozempic) arm brace (Elbow Compression #1 ea 01/02/25 Unknown Rx Sleeve) duloxetine 30 mg capsule,delayed 30 mg PO QDAY 03/03/25 04/09/25 History release ipratropium bromide 17 1 inh inhalation DAILY PRN 03/03/25 Unknown History mcg/actuation HFA aerosol inhaler shortness of breath or wheezing (Atrovent HFA) metformin 500 mg tablet 1,000 mg PO BID 03/03/25 Unknown History multivitamin 1 tab PO QDAY 03/03/25 Unknown History tizanidine 4 mg tablet 2 - 4 mg PO TID PRN muscle spasm 03/03/25 Unknown History tramadol 50 mg tablet 25 - 50 mg PO TID PRN pain 03/03/25 Unknown History Allergy/AdvReac Type Severity Reaction Status Date / Time latex Allergy Hives Verified 04/09/25 09:32 hydromorphone (From Dilaudid) AdvReac Vomiting Verified 04/09/25 09:32 Family History Mother , 58 Heart disease Diabetes COPD (chronic obstructive pulmonary disease) Father Heart disease Surgical History History of right knee surgery History of right knee surgery S/P hysterectomy History of appendectomy History of cholecystectomy History of back surgery Previous back surgery Hx of appendectomy History of cholecystectomy Social History current occupational status: unemployed pets and animals: Yes Smoking Status: Current every day smoker tobacco type: e-cigarettes alcohol intake: current details: Occasional substance use type: does not use caffeine: No do you feel safe at home: Yes Vital Signs Vital Signs Vital Signs: 04/09/25 09:32 04/09/25 09:32 Temperature 97.6 F L Temperature Source Temporal Pulse Rate 86 Respiratory Rate 16 Respiratory Pattern Normal Blood Pressure 94/70 Blood Pressure Mean 78 Blood Pressure Source Monitor Blood Pressure Position Semi-Fowlers Blood Pressure Location Left Arm Pulse Ox 98 Oxygen Delivery Method Room Air Weight Weight: 196 lb Body Mass Index (BMI) 38.2 Results Lab / Micro Data Labs: Laboratory Results - last 24 hr 04/09/25 09:36: POC Glucose 143 H
[2025-04-09] MEDS: Midazolam 2 MG/2 ML Syringe 1 MG IV (11:42)
[2025-04-09] MEDS: Cefazolin 1 GM/5 ML Vial 2 GM IV (12:09)
[2025-04-09] MEDS: Epinephrine (1 mg/ml) 1 MG/ML VIAL (12:10)
[2025-04-09] MEDS: Lidocaine 1% (5 ml sdv) 5 ML Vial 4 ML IV (12:16)
--- NOTE | 2025-04-09 13:12 | EX.PCM.DISCH ---
Discharge Instructions Diet Discharge Diet: No restrictions Activity Discharge Activity: May Shower Ice area for (Minutes): 10 Lifting Restrictions: no lifting over 1 pound, ok to remove sling at rest Additional Activity Instructions:: pendulums, hand wrist elbow rom 4x/day Dressing / Incision Call your doctor if your incision/area has: Continuous Slow Oozing, Sudden Increased Bleeding, Increased Pain/ Swelling, Increased Redness, Foul Smelling Discharge and Swelling at the incision site Call your doctor if you observe: Fever of 101 or Higher, Coldness, Increased Pain and Numbness or Tingling Change Dressing in: leave in place till F/U Cleanse incision/area with: Do not get Incision Wet Follow Up Care Please Follow Up With: Mendel Merida MD When: within 2 weeks Test Results: Test results from this visit will be discussed in further detail at your follow-up appointment, if applicable. Discharge Plan Admission Attending Provider: Mendel Merida Primary Care Provider: Sophie Huitron Instructions Patient Instructions: Pendulum (Flexibility) Print Language: [place] Discharge Orders/Prescriptions Prescriptions: New oxycodone-acetaminophen [Percocet] 5-325 mg tablet 1 tab PO Q4H MDD 6 PRN (Reason: pain) 4 Days Qty: 20 0RF No Action lidocaine [Salonpas (lidocaine)] 4 % adhesive patch,medicated 1 patch topical QDAY PRN (Reason: pain) Qty: 30 2RF Ozempic 0.25 mg or 0.5 mg (2 mg/3 mL) pen injector 2 mg subcut QWEEK Patient Comments: MONDAY (DME) Elbow Compression Sleeve Misc See Rx Instructions .Route Qty: 1 0RF Rx Instructions: Apply to right elbow tramadol 50 mg tablet 25 - 50 mg PO TID PRN (Reason: pain) duloxetine 30 mg capsule,delayed release(DR/EC) 30 mg PO QDAY metformin 500 mg tablet 1,000 mg PO BID multivitamin Tablet 1 tab PO QDAY tizanidine 4 mg tablet 2 - 4 mg PO TID PRN (Reason: muscle spasm) atorvastatin 10 MG tablet 10 mg PO DAILY levothyroxine 25 MCG tablet 25 mcg PO DAILY insulin glargine 100 UNIT/ML insulin pen 18 unit SQ BREAKFAST trazodone 300 mg tablet 300 mg PO QHS Patient Comments: TAKE 1 TABLET BY MOUTH EVERY DAY AT BEDTIME NEEDED alpha lipoic acid 600 mg capsule 600 mg PO DAILY Patient Comments: TAKE 1 CAPSULE BY MOUTH EVERY DAY Atrovent HFA 17 mcg/actuation HFA aerosol inhaler 1 inh INHALATION DAILY PRN (Reason: shortness of breath or wheezing) topiramate 50 mg tablet 50 mg PO Q12H trospium 20 mg tablet 20 mg PO QHS pregabalin 150 mg capsule 150 mg PO BID cyanocobalamin (vitamin B-12) 1,000 mcg tablet 1,000 mcg PO DAILY magnesium oxide 500 mg magnesium tablet 500 mg PO DAILY docusate sodium 100 mg capsule 100 mg PO BID PRN Referrals / Follow Up: Sophie Huitron MD [Primary Care Provider, Family Practice] Mendel Merida MD [Med Staff - Active Staff, Orthopedics] Disposition Disposition (needs filled in before D/C Order can be placed): Home, Self Care
--- NOTE | 2025-04-09 13:16 | OP.PCM_ITS ---
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 Placed supine on the table. Preoperative block given. 2 g IV Ancef administered prior to the start of the procedure. General anesthesia induced. Patient transferred to the right side up lateral decubitus beanbag positioner axillary roll placed. All bony promi nences padded. SCDs on the legs. Upper extremity prepped and draped in the usual sterile fashion with chlorhexidine-based prep solution allowing over 3 minutes drying time prior to draping. 10 pounds of inline traction with the arm in 40 degrees of abduction was utilized. Preoperative timeout performed to confirm the site patient and the surgery. Began by doing an EUA. The patient had 180 degrees of FE and abduction, and 65 degrees of ER. Began by inserting the arthroscope into the intra-articular portion of the shoulder through a standard posterior arthroscopy portal. Did a full diagnostic arthroscopy. Created an anterior portal inside out spinal needle localization through the rotator interval. Catilage on humeral head and glenoid appeared normal. There is some fraying of the superior labrum, but normal LHB and normal root. Gentle debridement of the frayed tissue. No loose bodies axillary recess entered. Subscapularis was normal. The rotator interval appeared normal. T here was no synovitis tissues were pristine on the intra-articular aspect of the shoulder no adhesions no scar tissue with full range of motion. I did note partial-thickness undersurface tear is consistent with the MRI on the undersurface of the rotator cuff at the supraspinatus from the anterior aspect to the posterior aspect of the tendon. Arthroscope then placed into the subacromial space. I performed a bursectomy for very trace amount of bursitis. No synovitis. There is very slight downsloping of the acromion I flatten this using a high speed poncho instrument by about 4 mm. Identified the AC joint this appeared normal slightly hypertrophic. As the patient did have full range of motion no evidence of adhesion or synovitis I suspected that the previous lack of range of motion was well treated adhesive capsulitis or simply bursitis that at this point was settle down with the previously done cortisone injection and the most likely the ongoing pain in the shoulder and difficulty lifting was from the partial articular sided tear which I decided to go ahead and fix. I established accessory lateral portal. I placed a cannula through this. I visualized then back through the joint to place a spinal needle just adjacent to the articular surface at the anterior and posterior aspects of the tear, to aj when I planned to place the trans tendon repair anchors. Then back to the sub acromial space, I placed 1 fiber tack RC 2.6 mm Arthrex anchor trans tendon at the anterior edge of the tear and then 1 posterior using my previously marked spinal needle locations. I then set the anchors. I then passed the repair suture through the conversion suture of the opposite anchor and then did this twice to create a horizontal mattress suture trans tendon to repair the partial undersurface articular sided tear of the supraspinatus tendon. This achieved a good purchase and repair I then looked back into the intra-articular portion of the joint to examine the repair which was nicely performed and good achieved good compression of the footprint site without over tensioning of the tendon. Arthroscopy portals taken and saved onto the system. Arthroscope withdrawn wounds thoroughly irrigated portal sites closed with 3-0 Monocryl suture. Skin cleaned with wet dry dressing followed application of Steri-Strips Adaptic 4 x 4 gauze ABD dressing cloth tape and an abduction pillow sling for the upper extremity. Patient woken up from the general anesthetic transferred off the operating table taken to postanesthetic care unit in stable condition. All sponge needle instrument counts were correct no complications. Plan for the patient discharged home according to day surgery criteria follow-up in the office within 2 weeks time. cpt 93016, [id number], [id number]. Surgical Findings: As above Complications Complications: No Admit VTE Documentation VTE Present on Admission: No VTE Mechan Device Prophylaxis: SCD's VTE Pharm Prophylaxis ordered?: No Reason prophylaxis not ordered: Treatment Not Indicated
--- NOTE | 2025-04-09 13:29 | PCM.POST.ANE ---
Anesthesia: Postop Eval I Current Vital Signs Temperature: 97.7 F Pulse Rate: 87 Blood Pressure: 100/67 Respiratory Rate: 16 Pulse Ox: 94 Assessment Airway patent: Yes Spontaneous unlabored respirations: Yes nausea: No Vomiting: No Anesthesia Complication: No Fluid Hydration Crystalloid volume administer (ml): 700 Total IV fluid infused: 700 Progress Note Anesthesia document: Postop Eval 1 completed: Yes
--- NOTE | 2025-04-09 13:35 | POSTOPAN2_ITS ---
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 [email or web address] Spontaneous unlabored Yes 04/09/25 13:29 DELICATESSEN DEPARTMENT [email or web address] respirations Mental status nausea No 04/09/25 13:29 DELICATESSEN DEPARTMENT [email or web address] Vomiting No 04/09/25 13:29 DELICATESSEN DEPARTMENT [email or web address] Anesthesia Postop Eval I: Fluid Summary Crystalloid volume administer 700 04/09/25 13:29 DELICATESSEN DEPARTMENT MANAGER.[email or web address] (ml) Colloids volume administered ( ml) Blood Product volume administered (ml) Total IV fluid infused 700 04/09/25 13:29 DELICATESSEN DEPARTMENT MANAGER.[email or web address] Anesthesia Postop Eval I: Summary Notes Anesthesia Complication No 04/09/25 13:29 DELICATESSEN DEPARTMENT MANAGER.[email or web address] Anesthesia Complication Comment: Post-operative progress note Anesthesia: Postop Eval II Evaluation Mental status: Awake Pain Level: 0 nausea: No Vomiting: No
--- NOTE | 2025-04-09 13:35 | PCM.POSTANE2 ---
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 Spontaneous unlabored Yes 04/09/25 13:29 SLOTTER [email or web address] respirations Mental status nausea No 04/09/25 13:29 SLOTTER [email or web address] Vomiting No 04/09/25 13:29 SLOTTER [email or web address] Anesthesia Postop Eval I: Fluid Summary Crystalloid volume administer 700 04/09/25 13:29 SLOTTER [email or web address] (ml) Colloids volume administered ( ml) Blood Product volume administered (ml) Total IV fluid infused 700 04/09/25 13:29 SLOTTER [email or web address] Anesthesia Postop Eval I: Summary Notes Anesthesia Complication No 04/09/25 13:29 SLOTTER [email or web address] Anesthesia Complication Comment: Post-operative progress note Anesthesia: Postop Eval II Evaluation Mental status: Awake Pain Level: 0 nausea: No Vomiting: No
--- NOTE | 2025-04-09 14:12 | PCM.POST.ANE ---
Anesthesia: Postop Eval I Current Vital Signs Temperature: 97.7 F Pulse Rate: 87 Blood Pressure: 100/67 Respiratory Rate: 16 Pulse Ox: 97 Assessment Airway patent: Yes Spontaneous unlabored respirations: Yes nausea: No Vomiting: No Anesthesia Complication: No Fluid Hydration Crystalloid volume administer (ml): 600 Total IV fluid infused: 600 Progress Note Anesthesia document: Postop Eval 1 completed: Yes
== END 2025-04-09 15:34 | disposition home or self-care (01) ==
LOC: SDC 09:14 → AC 09:15
PROVIDERS: PCP Family Medicine; Referring Provider Orthopaedic Surgery Sports Medicine; Visit Provider Orthopaedic Surgery Sports Medicine
PROC: (CPT 29805; principal; 2025-04-09 11:25)
DX: M75.111 Incomplete rotator cuff tear or rupture of right shoulder, not specified as traumatic (principal); F31.9 Bipolar disorder, unspecified; E11.9 Type 2 diabetes mellitus without complications; Z79.4 Long term (current) use of insulin; M75.41 Impingement syndrome of right shoulder; M75.01 Adhesive capsulitis of right shoulder; M19.011 Primary osteoarthritis, right shoulder; I10 Essential (primary) hypertension; E78.00 Pure hypercholesterolemia, unspecified; E03.9 Hypothyroidism, unspecified; F17.290 Nicotine dependence, other tobacco product, uncomplicated; Z79.84 Long term (current) use of oral hypoglycemic drugs; Z79.890 Hormone replacement therapy
CPT/HCPCS: 29827; 29826; 01630; 64415; 82962; 94640; C1713; J2405

== ENCOUNTER → 2025-04-22 | Outpatient (CLI) | payer MEDICARE, MEDICAID, SELFPAY | END | disposition home or self-care (01) | LOC: LABSPEC 12:07 | PROVIDERS: PCP Family Medicine; Visit Provider Nurse Practitioner Family | DX: L05.01 Pilonidal cyst with abscess (principal) | CPT/HCPCS: 87070; 87077; 87186; 87205 ==